=== PATIENT | female | born 1975 | race Caucasian/White ===

== ENCOUNTER 2023-02-27 13:17 | Outpatient (OUT) | payer MEDICARE, SELFPAY ==
[2023-02-27 13:50] LABS: Basophils Absolute Auto 0.1 10^3/uL (0.0-0.1); Basophils Percent Auto 0.8 % (0.2-2.0); Eosinophils Absolute Auto 0.3 10^3/uL (0.0-0.7); Eosinophils Percent Auto 2.4 % (0.9-7.0); Hematocrit 39.3 % (36.0-48.0); Hemoglobin 13.5 g/dL (12.0-16.0); Immature Granulocytes Abs Auto 0.12 10^3/uL (0.00-0.03); Lymphocytes Percent Auto 24.8 % (20.5-60.0); Mean Corpuscular HGB Conc 34.4 g/dL (29.9-35.2); Mean Corpuscular Hemoglobin 29.3 pg (26.7-34.0); Mean Corpuscular Volume 85.4 fL (81.0-99.0); Mean Platelet Volume 9.7 fL (9.5-13.5); Monocytes Absolute Auto 0.9 10^3/uL (0.3-0.8); Monocytes Percent Auto 7.5 % (1.7-12.0); Neutrophils Absolute Auto 7.5 10^3/uL (1.4-6.5); Neutrophils Percent Auto 63.5 % (43.0-75.0); Platelet Count 303 10^3/uL (150-450); Red Cell Distribution Width 12.8 % (11.0-15.0); White Blood Count 11.9 10^3/uL (4.0-11.0)
[2023-02-27 13:51] LABS: Bilirubin Urine NEGATIVE (NEGATIVE); Blood Urine TRACE-I (NEGATIVE); Clarity Urine CLEAR (CLEAR); Color Urine YELLOW (YELLOW); Glucose Urine UA NEGATIVE (NEGATIVE); Ketones Urine NEGATIVE (NEGATIVE); Leukocyte Esterase Urine NEGATIVE (NEGATIVE); Nitrite Urine POSITIVE (NEGATIVE); Protein Urine NEGATIVE (NEG/TRACE); Specific Gravity Urine >=1.030 (1.005-1.025); Urobilinogen Urine 0.2 EU/dL (0.2-1.0); pH Urine 5.5 (5.0-9.0)
[2023-02-27 14:35] LABS: Bacteria Urine SMALL #/HPF (NONE SEEN); Cast Seen? NONE SEEN #/LPF (NONE SEEN); Crystals Seen? None Seen #/HPF (None Seen); Mucus Urine NONE SEEN (NONE SEEN); Squamous Epithelial Cell Urine FEW #/LPF (NONE/RARE); WBC Urine NONE SEEN #/HPF (NONE SEEN)
[2023-02-27 14:42] LABS: Microalbumin Urine Random <1.3 mg/dL (<=30.0)
[2023-02-27 14:46] LABS: Alanine Aminotransferase 28 U/L (14-59); Albumin Globulin Ratio 0.8; Albumin Level 3.4 g/dL (3.4-5.0); Alkaline Phosphatase 92 U/L (46-116); Anion Gap 11.8; Aspartate Amino Transferase 21 U/L (15-37); BUN Creatinine Ratio 30.6; Bilirubin Total 0.4 mg/dL (0.2-1.0); Calcium 9.1 mg/dL (8.5-10.1); Carbon Dioxide 26.3 mmol/L (21.0-32.0); Chloride 102 mmol/L (98-107); Chol HDL Ratio 3.5; Cholesterol 201 mg/dL (<=200); Estimated GFR (African America >60 (>=60); Estimated GFR (Non-African Ame >60 (>=60); Globulin 4.4 g/dL; Glucose 121 mg/dL (74-106); HDL Cholesterol 57 mg/dL (40-60); Potassium 4.1 mmol/L (3.5-5.1); Sodium 136 mmol/L (136-145); Total Protein 7.8 g/dL (6.4-8.2); Triglycerides 139 mg/dL (<=150); VLDL CHOLESTEROL 27.8 mg/dL
== END 2023-02-27 13:18 | disposition home or self-care (01) ==
LOC: LAB 13:21
PROVIDERS: PCP Nurse Practitioner; Visit Provider Nurse Practitioner
DX: E78.5 Hyperlipidemia, unspecified (principal); E11.9 Type 2 diabetes mellitus without complications; Z79.4 Long term (current) use of insulin; R82.90 Unspecified abnormal findings in urine
CPT/HCPCS: 36415; 80053; 80061; 81001; 82043; 85025; 87086; 87150; 87186

== ENCOUNTER 2023-08-06 12:49 | Outpatient (OUT) | payer MEDICARE, SELFPAY ==
--- NOTE | 2023-08-06 12:54 | MM_ITS ---
Patient Name: HE REVELES MR#: [id number] : 1975 Exam Date: 08/06/2023 Ordering Doctor: DENISE Mejia CNP RADIOLOGY REPORT PROCEDURE: MM TOMOSYNTHESIS SCREENING BI COMPARISON: MG MAMM SCREEN 3D CORNEL CAD, 08/04/2022. MG MAMM SCREEN CORNEL W CAD, 12/25/2017. INDICATIONS: Screening Calculator Name NCI Breast Cancer Risk Assessment Tool 5 Year Breast Cancer Risk 1.40% Lifetime Breast Cancer Risk 12.50% Personal Breast Cancer No Personal Ovarian Cancer No Treatments hysterectomy, cornel oopherectomy Family Cancers Mother with ovarian cancer at age 40; Aunt-maternal with ovarian cancer at age 35; Aunt-maternal with ovarian cancer at age 40. LOCATION: [facility] BREAST COMPOSITION: Scattered areas fibroglandular density. FINDINGS: DIAGNOSTIC CATEGORY 1--NEGATIVE. NO CHANGE FROM COMPARISON ASSESSMENT. RIGHT BREAST: No significant suspicious finding. LEFT BREAST: No significant suspicious finding. RECOMMENDATIONS: ROUTINE MAMMOGRAM AND CLINICAL EVALUATION IN 12 MONTHS. PLEASE NOTE: A NORMAL MAMMOGRAM DOES NOT EXCLUDE THE POSSIBILITY OF BREAST CANCER. A CLINICALLY SUSPICIOUS PALPABLE LUMP SHOULD BE BIOPSIED. Dictated by: Christopher Vega MD on 08/06/2023 at 14:24 Approved by: Christopher Vega MD on 08/06/2023 at 14:25
== END 2023-08-06 12:50 | disposition home or self-care (01) ==
LOC: MAMMO 12:49
PROVIDERS: PCP Nurse Practitioner; Visit Provider Nurse Practitioner
DX: Z12.31 Encounter for screening mammogram for malignant neoplasm of breast (principal); Z80.41 Family history of malignant neoplasm of ovary
CPT/HCPCS: 77063; 77067

== ENCOUNTER 2024-01-22 12:11 | Outpatient (OUT) | payer MEDICARE, SELFPAY ==
--- OUTSIDE RECORDS SUMMARY | 2024-01-22 12:21 | XMS_ITS | CCD ---
Author Organization [facility] Care Team Providers Care Precipitator Operator Name Role Phone [facility] Primary Care Provider Mariam Beyer Attending Provider [phone] Abner Cartwright Attending Provider Glenna uQinones Unavailable Jessica Owens MD Primary Care Provider [phone] Sonya Mejia Primary Care Provider HARI Quinones Attending Provider [facility] Primary Care Provider HARI Beyer Attending Provider AICHHOLZ, FINANCIAL SALES ASSISTANT SONYA Attending Unavailable AICHHOLZ, FINANCIAL SALES ASSISTANT SONYA Admitting Unavailable AICHHOLZ, FINANCIAL SALES ASSISTANT SONYA Primary Care Unavailable AICHHOLZ, FINANCIAL SALES ASSISTANT SONYA Attending Unavailable AICHHOLZ, FINANCIAL SALES ASSISTANT SONYA Admitting Unavailable DR MATT CABRERA Primary Care Unavailable AICHHOLZ, FINANCIAL SALES ASSISTANT SONYA Consulting Unavailable AICHHOLZ, FINANCIAL SALES ASSISTANT SONYA Attending Unavailable AICHHOLZ, FINANCIAL SALES ASSISTANT SONYA Admitting Unavailable AICHHOLZ, FINANCIAL SALES ASSISTANT SONYA Primary Care Unavailable AICHHOLZ, FINANCIAL SALES ASSISTANT SONYA Consulting Unavailable DR VALERIANO SINCLAIR Consulting Unavailable KAYA PATEL Consulting Unavailable JOSÉ ., ADAM Admitting Unavailable ADAM DUMONT Attending Unavailable AICHHOLZ, FINANCIAL SALES ASSISTANT SONYA Primary Care Unavailable MYRTLE DUMONTID Consulting Unavailable Mark Gramajo Unavailable [facility] Primary Care Provider HARI Beyer Attending Provider Sonya Mejia Primary Care Provider HARI Gramajo Attending Provider Jose APODACA, Abad Primary Care Provider Jackie REMEDIAL PROJECT MANAGER, Sonya Unavailable [facility] Primary Care Provider [phone] HARI Beyer Attending Provider [phone] Jose APODACA, Abad Primary Care Provider Jackie REMEDIAL PROJECT MANAGER, Sonya Unavailable Bob APODACA, Jessica Primary Care Provider [phone] JESSICA OWENS Primary Care Unavailable JASON CH Referring Unavailable JASON CH Attending Unavailable GLENDY PÉREZ Attending Unavailable JESSICA OWENS Primary Care Unavailable [facility] Primary Care Provider HARI Beyer Attending Provider Jackie Sonya J Primary Care Provider [phone] HARI Quinones Attending Provider Mark Gramajo Attending Unavailable Mark Gramajo Admitting Unavailable Aichholz, Sonya J Primary Care Unavailable [facility] Primary Care Unavaila ble Mariam Beyer K Attending Unavailable Pepito Tondra K Admitting Unavailable Glenna Quinones Attending Unavailable Glenna Quinones Admitting Unavailable Aichholz, Sonya J Primary Care Unavailable Mark Gramajo Attending Unavailable Mark Gramajo Admitting Unavailable Aichholz, Sonya J Primary Care Unavailable AICHHOLZ, SONYA Attending Unavailable AICHHOLZ, SONYA Attending Unavailable AICHHOLZ, SONYA Attending Unavailable Allergies Allergy Classification Reported Allergen(s) Allergy Type Date of Onset Reaction(s) Facility (20 sources) SGLT2s Propensity to adverse reactions DKA x2 Infinite Z Other (3 sources) Seasonal allergy; Translations: [SEASONAL ALLERGIES] Allergy to substance 2 Other: See Comments [facility] (4 sources) dulaglutide Drug Allergy 2 [facility] Healthcare Medications Current Medications Medication Drug Class(es) Dates Sig (Normalized) Sig (Original) 3 ML semaglutide 1.34 MG/ML Pen Injector [Ozempic] (7 sources) Start: 02-19-2023 inject 1 mg by subcutaneous injection every week Ozempic (1 MG/DOSE) 4 MG/3ML 1mg SQ once weekly for 30 days return to 2 mg when available Jan, Active Start: 01-04-2022 inject 1 mg by subcu taneous injection every week Ozempic (1 MG/DOSE) 4 MG/3ML 1mg SQ once weekly for 90 day(s) Dec, Active inject 1 mg by subcu taneous injection every week Ozempic (1 MG/DOSE) 4 MG/3ML 1mg SQ once weekly for 90 day(s) Active 3 ML semaglutide 2.68 MG/ML Pen Injector [Ozempic] (16 sources) Start: 06-07-2022 inject 2 mg by subcutaneous injection every week Ozempic (2 MG/DOSE) 8 MG/3ML 2 mg Subcutaneous weekly for 90 days May, Active inject 2 mg by subcu taneous injection every week Ozempic (2 MG/DOSE) 8 MG/3ML 2 mg Subcutaneous weekly for 90 days ok to dispense 1mg weekly if 2 mg unavailable Active inject 2 mg by subcu taneous injection every week Ozempic (2 MG/DOSE) 8 MG/3ML 2 mg Subcutaneous weekly for 90 days Active atorvastatin 80 mg oral tablet (20 sources) HMG-CoA Reductase Inhibitor Start: 05-24-2023 End: 08-22-2023 take 80 mg by mouth once daily Atorvastatin Active 80 MG PO Daily August 21, 2023 12:00am Start: 01-31-2018 End: 06-30-2019 take 10 mg by mouth once daily Atorvastatin Discontinu ed 10 MG PO Daily January 31, 2018 12:00am June 30, 2019 2:22pm End: 05-24-2023 take 1 tablet by mouth in the morning atorvastatin (Lipitor) 40 MG tablet Take 1 tablet by mouth in the morning. 0 05/24/2023 Discontinued (Ineffective) take 1 tablet by jen th every twenty-four hours Atorvastatin Calcium 20 MG 1 tablet Orally Once a day for 90 days Active Comment on above: Take 10 mg by mouth once daily. Centrum Adults - (20 sources) take 1 tablet by mouth once daily Centrum Adults - 1 tablet Orally daily Active Cholecalciferol (5 sources) Vitamin D Start: 08-21-19 24 take 1 capsule by mouth once daily cholecalciferol (vitamin D3) Active 1 CAP PO Daily August 21, 2023 12:00am Fish Oils (20 sources) Fish Oil Active Flash Glucose Scanning [place] (Freestyle Neris 2 [place]) misc (5 sources) Start: 08-21-19 24 Flash Glucose Scanning [place] (Freestyle Neris 2 [place]) misc Active 0 .ROUTE August 21, 2023 12:00am As directed Flash Glucose Sensor (Freestyle Neris 2 Sensor) kit (5 sources) Start: 08-21-19 24 Flash Glucose Sensor (Freestyle Neris 2 Sensor) kit Active 0 .ROUTE August 21, 2023 12:00am As directed FreeStyle Neris 2 Sensor - (20 sources) Start: 02-17-20 FreeStyle Neris 2 Sensor - as directed in vitro q 14 days for 84 days Jan, Active FreeStyle Nreis 2 Sensor - as directed in vitro q 14 days for 84 days Active FreeStyle Neris [place] - (20 sources) Start: 01-21-2020 FreeStyle Libr e [place] - as directed use with 14 days sensor check glucose with reader ac, hs, prn Dec, Active FreeStyle Neris [place] - as directed use with 14 days sensor check glucose with reader ac, hs, prn Active FreeStyle Neris Sensor (20 sources) FreeStyle Neris Sensor use with neris reader SQ change q 14 days, check glucose ac, hs and prn for 28 days DX E11.65 Neris 14 day Sensors Active FreeStyle Neris Sensor use with neris reader SQ change q 14 days, check glucose ac, hs and prn for 28 days Active Insulin Disposable Pump (V-Go 40) 40 UNIT/24HR kit (4 sources) Start: 01-08-2023 Insulin Dispos able Pump (V-Go 40) 40 UNIT/24HR kit Inject 1 Pump as directed in the morning. 0 01/08/2023 Active 3 ml insulin glargine 100 unt/ml pen injector (20 sources) Insulin Analog Start: 01-10-2023 Basaglar KwikP en 100 UNIT/ML pen inject 40 units subcutaneously once daily 0 01/10/2023 Active Start: 11-04-2019 End: 11-26-2023 inject 30 [IU] by subcutaneous injection once daily Insulin Glargine Discontinued 30 UNIT SUBCUT Daily 0 November 04, 2019 1:14pm November 26, 2023 2:10pm Start: 06-30-2019 End: 11-04-2019 inject 25 [IU] by subcutaneous injection once daily Insulin Glargine Discontinued 25 UNITS SUBCUT Daily June 30, 2019 12:00am November 04, 2019 1:14pm Start: 01-06-2019 BASAGLAR KWIKP EN U-100 INSULIN 100 unit/mL (3 mL) inpn INJECT 40 UNITS SUBCUTANEOUSLY EVERY BEDTIME 0 01/06/2019 Active inject 25 [IU] by goodson bcutaneous injection once daily, then inject 30 [IU] by subcutaneous injection once daily in the morning Basaglar KwikPen 100 UNIT/ML 25 units (may titrate up to 30 units per day) Subcutaneous am for 30 days for VGO FAILRE- expect up to 30 u daily. Should use if removes VGO and is unable to replace d/t VGO supply or insulin shortage. PATIENT SHOULD NOTIFY OFFICE ANDREA OF SUPPLY ISSUE Active Comment on above: INJECT 40 UNITS SUBC UTANEOUSLY EVERY BEDTIME ammonium lactate 120 mg/ml topical lotion (3 sources) ammonium lactate (Lac-Hydrin) 12 % lotion 1 application every 12 (twelve) hours 0 Active lisinopril 40 mg oral tablet (20 sources) Angiotensin Converting Enzyme Inhibitor Start: take 40 mg by mouth once daily Lisinopril Active 40 MG PO Daily August 21, 2023 12:00am Start: 11-02-2022 take 2 tablets by mo uth once daily in the morning lisinopril 20 MG tablet Take 40 mg by mouth in the morning. Total is 40mg, so 2 pills daily. 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 0 01/24/2021 Active Start: 11-04-2019 End: 08-21-2023 take 20 mg by mouth once daily Lisinopril Discontinued 20 MG PO Daily November 04, 2019 12:00am August 21, 2023 1:11pm Start: 01-31-2018 End: 06-30-2019 take 40 mg by mouth once daily Lisinopril Discontinued 40 MG PO Daily January 31, 2018 12:00am June 30, 2019 1:41pm Comment on above: Take 40 mg by mouth every morning. loratadine 10 mg oral tablet (4 sources) take 1 tablet by mouth once daily loratadine (Claritin) 10 MG tablet Take 10 mg by mouth 1 (one) time each day at the same time. 0 Active metFORMIN hydrochloride 1000 mg oral tablet (20 sources) Biguanide Start: take 1000 mg by mouth twice daily at mealtime Metformin Active 1000 MG PO Twice daily with meals January 31, 2018 12:00am take 1 tablet by jen th every twelve hours metFORMIN (Glucophage) 1000 MG tablet Ta ke 1,000 mg by mouth every 12 (twelve) hours. 0 Active Comment on above: TAKE ONE 1 TABLET BY MOUTH TWICE DAILY Multiple Vitamins-Minerals (ONE-A-DAY WOMENS PO) (4 sources) take 1 tablet by mouth once daily in the morning Multiple Vitamins-Minerals (ONE-A-DAY WOMENS PO) Take 1 tablet by mouth in the morning. 0 Active [id number] carb-vit K (Women's Multivitamin) (5 sources) Start: 08-21-2023 take 1 tablet by mouth once daily [id number] carb-vit K (Women's Multivitamin) Active 1 TAB PO Daily August 21, 2023 12:00am omega-3 fatty acids (Fish Oil) (5 sources) Start: 08-21-2023 take 1 capsule by mouth once daily omega-3 fatty acids (Fish Oil) Active 1 CAP PO Daily August 21, 2023 12:00am omeprazole 40 mg delayed release oral capsule (20 sources) Proton Pump Inhibitor Start: 11-02-2019 End: 08-21-2023 take 40 mg by mouth once daily Omeprazole Active 40 MG PO Daily August 21, 2023 1:03pm Start: 11-02-2019 Omeprazole Act bart November 01, 2019 11:00pm Start: 01-31-2018 End: 06-30-2019 take 40 mg by mouth once daily Omeprazole Discontinued 40 MG PO Daily January 31, 2018 12:00am June 30, 2019 2:22pm Comment on above: Take 40 mg by mouth once daily. 0.25 mg, 0.5 mg dose 1.5 ml semaglutide 1.34 mg/ml pen injector (15 sources) Start: 12-19-2021 inject 0.25 mg by subcutaneous injection every week Ozempic, 0.25 or 0.5 MG/DOSE, 2 MG/1.5ML solution pen-injector Inject 0.25 mg under the skin 1 (one) time per week. 0 12/19/2021 Active Start: 07-05-2021 Ozempic (0.25 or 0.5 MG/DOSE) 2 MG/1.5ML as directed Subcutaneous Jun, Active sertraline 50 mg oral tablet (20 sources) Serotonin Reuptake Inhibitor Start: 08-21-2023 take 50 mg by mouth once daily Sertraline Active 50 MG PO Daily August 21, 2023 12:00am Start: 04-25-2023 End: 07-24-2023 take 1 tablet by mouth in the morning sertraline (Zoloft) 50 MG tablet Indications: Anxiety , Major depressive disorder with single episode, remission status unspecified (CMS/HCC) Take 1 tablet (50 mg) by mouth in the morning. 90 tablet 0 04/25/2023 07/24/2023 Active Start: 05-27-2018 End: 08-21-2023 take 25 mg by mouth once daily Sertraline Discontinued 25 MG PO Daily June 30, 2019 12:00am August 21, 2023 1:04pm Start: 05-27-2018 take 2 tablets by mo [facility] once daily sertraline (ZOLOFT) 25 mg tablet Take 50 mg by mouth once daily. 0 05/27/2018 Active take 1 tablet by jen every twenty-four hours Sertraline HCl 50 MG 1 tablet Orally Once a day Active Comment on above: Take 25 mg by mouth once daily. Take 50 mg by mouth once daily. Sub-Q Insulin Device, 40 Unit (V-Go 40) device (9 sources) Start: 08-21-2023 Sub-Q Insulin Device, 40 Unit (V-Go 40) device Active 0 .Route 90 August 21, 2023 2:18pm As directed Start: 08-21-2023 End: 08-21-2023 Sub-Q Insulin Device, 40 Uni t (V-Go 40) device Discontinued 0 .Route August 21, 2023 12:00am August 21, 2023 2:20pm As directed Start: 08-21-2023 Sub-Q Insulin Device, 40 Unit (V-Go 40) device Active 0 .ROUTE August 21, 2023 12:00am As directed Tirzepatide (6 sources) Start: 10-11-2023 Tirzepatide (M ounjaro) 7.5 mg/0.5 mL pen injector Active 7.5 MG SUBCUT every week 2 October 11, 2023 1:52pm Start: 10-11-2023 End: 10-11-2023 Tirzepatide (Mounjaro) 7.5 m g/0.5 mL pen injector Discontinued 7.5 MG SUBCUT every week October 11, 2023 12:00am October 11, 2023 1:53pm True Metrix Blood Glucose Te st - (20 sources) Start: 10-20-2019 Start: 10-20-2019 True Metrix Bl ood Glucose Test - as directed In Vitro 4 times a day for 90 days Sep, Active True Metrix Meter w/Device (20 sources) True Metrix Mete r w/Device as directed Active V-Go 40 - (20 sources) V-Go 40 - USE DIRECTED DAILY for 30 Not-Taking V-Go 40 - USE DIRECTED DAILY for 30 Active V-Go 40 - as dir ected sq daily for 30 Active V-Go 40 - as dir ected sq daily for 90 days Active Vitamin B Complex (20 sources) take 1 tablet by mouth once daily Vitamin B Complex - 1 tablet Orally daily Active vitamin B12 (5 sources) Vitamin B12 Start: 08-21-2023 take 1 tablet by mouth once daily cyanocobalamin (vitamin B-12) Active 1 TAB PO Daily August 21, 2023 12:00am Vitamin D 25 MCG (1000 UT) (20 sources) take 1 tablet by mouth once daily Vitamin D 25 MCG (1000 UT) 1 tablet Orally Once a day Active Completed/Discontinued Medications Medication Drug Class(es) Dates Sig (Normalized) Sig (Original) benoxinate hydrochloride 4 mg/ml / fluorescein sodium 2.5 mg/ml ophthalmic solution (2 sources) Diagnostic Dye Start: 08-07-2023 End: 08-08-2023 fluorescein-benoxi jason 0.25-0.4 % 1 Drop (FLURESS) Start: 01-31-2022 End: 02-01-2022 fluorescein-benoxinate 0.25- 0.4 % 1 Drop (FLURESS) cephalexin 500 mg oral capsule (2 sources) Cephalosporin Antibacterial Start: 03-18-2018 cephALEXin (KEFLEX) 500 mg capsule dicyclomine hydrochloride 20 mg oral tablet (11 sources) Anticholinergic Start: 02-18-2018 dicyclomine (BENTYL) 20 mg tablet TAKE ONE 1 TABLET BY MOUTH EVERY 8 HOURS NEEDED FOR PAIN 6 02/18/2018 Active Start: 01-31-2018 End: 06-30-2019 take 20 mg by mouth once daily Dicyclomine Discontinue d 20 MG PO Daily January 31, 2018 12:00am June 30, 2019 2:14pm Comment on above: TAKE ONE 1 TABLET BY MOUTH EVERY 8 HOURS NEEDED FOR PAIN 0.5 ml dulaglutide 1.5 mg/ml auto-injector (9 sources) GLP-1 Receptor Agonist Start : 11-01 End: 08-20 inject 1 mg by subcutaneous injection every week Dulaglutide (Trulicity) 0.75 mg/0.5 mL Pen Injector Discontinued MG SUBCUT every week November 02, 2019 12:00am August 21, 2023 1:02pm empagliflozin 25 mg oral tablet (2 sources) Sodium-Glucose Cotransporter 2 Inhibitor Start : 10-20 take 1 tablet by mouth once daily JARDIANCE 25 mg tablet Take 25 mg by mouth once daily. 0 10/21/2019 Active Comment on above: Take 25 mg by mouth once daily. 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 0 Active Comment on above: Take by mouth one ti me a week. ertugliflozin 15 mg oral tablet (11 sources) Start : 02-27 End: 11-03 take 15 mg by mouth once daily Ertugliflozin Discontinued 15 MG PO Daily June 30, 2019 12:00am November 04, 2019 1:14pm Flash Glucose Scanning [place] (Freestyle Neris 14 Day [place]) misc (5 sources) Start : 08-20 End: 08-20 Flash Glucose Scanning [place] (Freestyle Neris 14 Day [place]) misc Discontinued 0 .Route August 21, 2023 12:00am August 21, 2023 1:09pm As directed Flash Glucose Sensor (Freestyle Neris 14 Day Sensor) kit (5 sources) Start : 08-20 End: 08-20 Flash Glucose Sensor (Freestyle Neirs 14 Day Sensor) kit Discontinued 0 .Route August 21, 2023 12:00am August 21, 2023 1:09pm As directed hydroCHLOROthiazide 12.5 mg / lisinopril 20 mg oral tablet (11 sources) Thiazide Diuretic, Angiotensin Converting Enzyme Inhibitor Start : 06-29 End: 11-03 take 1 tablet by mouth once daily Lisinopril-Hydrochl orothiazide Discontinued 1 TAB PO Daily June 30, 2019 12:00am November 04, 2019 1:14pm Start: 05-27-2018 take 1 tablet by jen th twice daily lisinopril-hydrochlorothiazide (PRINZIDE,ZESTORETIC) 20-12.5 mg per tablet Take 1 tablet by mouth twice daily. 0 05/27/2018 Active Comment on above: Take 1 tablet by jen th twice daily. insulin aspart, human (20 sources) Insulin Analog Start: 08-21-2023 End: 08-21-2023 Insulin Aspart U-100 Discontinued 0 UNITS SUBCUT 3x/Day before meals August 21, 2023 1:02pm August 21, 2023 1:12pm 8, 12, or 15 units based on pt's blood glucose Start: 08-21-2023 inject 100 [IU] by s ubcutaneous injection once daily Insulin Aspart (Niacinamide) (Fiasp U-100 Insulin) 100 unit/mL solution Active SUBCUT Daily August 21, 2023 12:00am Start: 05-29-2023 Fiasp 100 UNIT /ML solution inject as directed four times a day (EXPECT 100 UNITS PER DAY) 0 05/29/2023 Active Start: 10-05-2022 NovoLOG 100 UN IT/ML solution Inject 100 mL under the skin. 0 10/05/2022 Active Start: 03-06-2018 inject 10 [IU] by goodson bcutaneous injection three times daily NOVOLOG FLEXPEN U-100 INSULIN 100 unit/mL inpn INJECT 10 UNITS SUBCUTANEOUSLY THREE TIMES A DAY 4 03/06/2018 Active Start: 01-31-2018 Insulin Aspart U-100 Active 0 UNITS SUBCUT 3x/Day before meals January 31, 2018 4:14pm 8, 12, or 15 units based on pt's blood glucose Start: 01-31-2018 End: 08-21-2023 Insulin Aspart U-100 Discont inued 0 UNITS SUBCUT 3x/Day before meals January 31, 2018 12:00am August 21, 2023 1:09pm 8, 12, or 15 units based on pt's blood glucose Start: 01-31-2018 Insulin Aspart U-100 Active 0 UNITS SUBCUT 3x/Day before meals January 30, 2018 11:00pm 8, 12, or 15 units based on pt's blood glucose Start: 01-31-2018 Insulin Aspart U-100 Active 0 UNITS SUBCUT 3x/Day before meals January 31, 2018 12:00am 8, 12, or 15 units based on pt's blood glucose inject 2 [IU] by sub cutaneous injection once daily at mealtime NovoLOG 100 UNIT/ML as directed Subcutaneous in vgo (up to 90 units/day) for 90 days for use in VGO40, ok to use aspart as substitution. changed to 1:25 mg Correction (2 u/click); ICR 2,4,5 clicks /sml meals. Active Comment on above: INJECT 10 UNITS SUBC UTANEOUSLY THREE TIMES A DAY Insulin Glargine 100 UNIT/ML (5 sources) Start: 12-11-2022 Insulin Glargine 100 UNIT/ML 40 u Subcutaneous daily for 30 days for VGO failure. DO NOT DISPENSE GREATER THAN 30 days at a time Nov, Not-Taking Start: 12-11-2022 Insulin Glargi ne 100 UNIT/ML 40 u Subcutaneous daily for 30 days for VGO failure. DO NOT DISPENSE GREATER THAN 30 days at a time Nov, Active naltrexone 380 mg injection (11 sources) Opioid Antagonist Start: 05-21-2018 End: 11-02-2019 Naltrexone Microspheres Discontinued 380 MG IM Q28D June 30, 2019 12:00am November 02, 2019 10:59am phenylephrine hydrochloride 25 mg/ml ophthalmic solution (2 sources) alpha-1 Adrenergic Agonist Start: 08-07-2023 End: 08-08-2023 PHENYLephrine 2.5 % 1 Drop (AK-DILATE, JESU-SYNEPHRINE) Start: 01-31-2022 End: 02-01-2022 PHENYLephrine 2.5 % 1 Drop ( AK-DILATE, JESU-SYNEPHRINE) potassium chloride 10 meq extended release oral tablet (6 sources) Start: 03-08-2018 take 1 tablet by mouth three times daily potassium chloride (K-TAB) 10 mEq tablet Take 10 mEq by mouth three times daily. 0 03/08/2018 Active take 1 capsule by mo ut in the morning, then take 1 capsule by mouth in the evening, then take 1 capsule by mouth at bedtime potassium chloride ER (Micro-K) 10 MEQ E R capsule Take 1 capsule by mouth in the morning and 1 capsule in the evening and 1 capsule before bedtime. Do not crush or chew. . 0 Active Comment on above: Take 10 mEq by mouth three times daily. proparacaine hydrochloride 5 mg/ml ophthalmic solution (2 sources) Local Anesthetic Start: 08-07-2023 End: 08-08-2023 proparacaine 0.5 % 1 Drop (ALCAINE) Start: 01-31-2022 End: 02-01-2022 proparacaine 0.5 % 1 Drop (A LCAINE) Semaglutide (Ozempic) 2 mg/dose (8 mg/3 mL) pen injector (5 sources) Start: 08-21-2023 End: 11-26-2023 inject 2 mg by subcutaneous injection every week Semaglutide (Ozempic) 2 mg/dose (8 mg/3 mL) pen injector Discontinued 2 MG SUBCUT every week August 21, 2023 12:00am November 26, 2023 2:11pm Start: 08-21-2023 inject 2 mg by subcu taneous injection every week Semaglutide (Ozempic) 2 mg/dose (8 mg/3 mL) pen injector Active 2 MG SUBCUT every week August 21, 2023 12:00am Tirzepatide (4 sources) Start: 08-21-2023 End: 10-11-2023 Tirzepatide (Mounjaro) 2.5 m g/0.5 mL pen injector Discontinued 2.5 MG SUBCUT every week 2.5 August 21, 2023 12:00am October 11, 2023 1:52pm Start: 08-21-2023 Tirzepatide (M ounjaro) 2.5 mg/0.5 mL pen injector Active 2.5 MG SUBCUT every week 2.5 August 21, 2023 12:00am Tirzepatide (4 sources) Start: 08-21-2023 End: 10-11-2023 inject 2.5 mg by subcutaneous injection every week Tirzepatide (Mounjaro) 5 mg/0.5 mL pen injector Discontinued 5 MG SUBCUT every week 2.5 August 21, 2023 12:00am October 11, 2023 1:51pm to start after 4 weeks 2.5 mg weekly if tolerated Start: 08-21-2023 inject 2.5 mg by sub cutaneous injection every week Tirzepatide (Mounjaro) 5 mg/0.5 mL pen injector Active 5 MG SUBCUT every week 2.5 August 21, 2023 12:00am to start after 4 weeks 2.5 mg weekly if tolerated tropicamide 10 mg/ml ophthalmic solution (2 sources) Anticholinergic Start: 08-07-2023 End: 08-08-2023 tropicamide 1 % 1 Drop (MYDRIACYL) Start: 01-31-2022 End: 02-01-2022 tropicamide 1 % 1 Drop (MYDR IACYL) V-GO 40 fer (2 sources) Start: 04-25-2021 V-GO 40 fer I ndications: 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 USE DIRECTED. 0 04/25/2021 Active Comment on above: once daily. USE D IRECTED. Problems Active Problems Problem Classification Problem Date Documented Da te Episodic/Chronic Administrative/social admission (9 sources) Dietary counseling and surveillance Onset: 1 Resolved: 2 Episodic Anxiety disorders (6 sources) Anxiety; Translations: [Anxiety disorder, unspecified] Onset: 3 04-02-2023 Chronic Attention-deficit, conduct, and disruptive behavior disorders (20 sources) Attention deficit hyperactivity disorder; Translations: [Attention-deficit hyperactivity disorder, unspecified type] 08-21-2023 Chronic Attention-deficit, conduct, and disruptive behavior disorders (13 sources) Attention-deficit hyperactivity disorder, unspecified type; Translations: [Attention deficit disorder with hyperactivity] Onset: 1 Resolved: 2 Chronic Blindness and vision defects (3 sources) Blindness AND/OR vision impairment level; Translations: [Unspecified visual loss] Onset: 4 06-07-2023 Chronic Cancer of uterus (3 sources) Adenocarcinoma of endometrium; Translations: [Malignant neoplasm of endometrium] Onset: 8 06-07-2023 Chronic Cardiac dysrhythmias (9 sources) Tachycardia; Translations: [Tachycardia, unspecified] 06-27-2019 Episodic Cataract (17 sources) Nuclear sclerotic cataract; Translations: [Age-related nuclear cataract, bilateral] Onset: 8 Chronic Developmental disorders (3 sources) Developmental academic disorder; Translations: [Developmental disorder of scholastic skills, unspecified] Onset: 4 06-07-2023 Chronic Diabetes mellitus with complications (20 sources) Diabetic ketoacidosis; Translations: [Type 2 diabetes mellitus with ketoacidosis without coma] Onset: 7 Resolved: 2 Chronic Diabetes mellitus without complication (20 sources) Diabetes mellitus without complication; Translations: [Type 2 diabetes mellitus without complications] Onset: 3 04-02-2023 Chronic Diseases of white blood cells (9 sources) Leukocytosis; Translations: [Elevated white blood cell count, unspecified] 06-27-2019 Chronic Disorders of lipid metabolism (20 sources) Hyperlipidemia; Translations: [Hyperlipidemia, unspecified] Onset: 1 Resolved: 2 Chronic Disorders usually diagnosed in infancy, childhood, or adolescence (20 sources) Autism spectrum disorder; Translations: [Autistic disorder] Onset: 1 Resolved: 2 Chronic Diverticulosis and diverticulitis (7 sources) Diverticular disease; Translations: [Diverticulosis of intestine, part unspecified, without perforation or abscess without bleeding] Onset: 3 04-02-2023 Chronic Esophageal disorders (20 sources) Gastroesophageal reflux disease; Translations: [Gastro-esophageal reflux disease without esophagitis] Onset: 3 08-02-2016 Chronic Esophageal disorders (1 source) Esophageal disorders; Translations: [Gastro-esophageal reflux disease without esophagitis] Onset: 3 Essential hypertension (20 sources) Hypertensive disorder; Translations: [Essential (primary) hypertension] Onset: 1 Resolved: 2 Chronic Fluid and electrolyte disorders (18 sources) Ketoacidosis; Translations: [Acidosis] 11-02-2019 Episodic Genitourinary symptoms and ill-defined conditions (4 sources) Abnormal urinalysis; Translations: [Unspecified abnormal findings in urine] Onset: 3 04-02-2023 Episodic Miscellaneous mental health disorders (17 sources) Eating disorder; Translations: [Eating disorder, unspecified] Chronic Mood disorders (20 sources) Depressive disorder; Translations: [Major depressive disorder, single episode, unspecified] Onset: 1 Resolved: 2 Chronic Nausea and vomiting (20 sources) Nausea and vomiting; Translations: [Nausea with vomiting, unspecified] Onset: 1 Resolved: 2 Episodic Nutritional deficiencies (20 sources) Vitamin D deficiency; Translations: [Vitamin D deficiency, unspecified] Onset: 1 Resolved: 2 Chronic Nutritional deficiencies (9 sources) Deficiency of other specified B group vitamins Onset: 1 Resolved: 2 Episodic Other aftercare (20 sources) Long-term current use of insulin; Translations: [longterm (current) use of insulin] 06-07-2023 Episodic Other aftercare (9 sources) Encounter for therapeutic drug level monitoring Onset: 1 Resolved: 2 Episodic Other aftercare (14 sources) longterm (current) use of insulin; Translations: [Long-term (current) use of insulin] Onset: 1 Resolved: 2 Episodic Other aftercare (1 source) Other half-way (current) drug therapy; Translations: [[employer] SUPERVISOR CURRENT DRUG THERAPY] Onset: 3 Episodic Other aftercare (1 source) longterm (current) use of oral hypoglycemic drugs; Translations: [RESIDENTIAL USE ORAL HYPOGLYCEMIC DX] Onset: 3 Episodic Other eye disorders (2 sources) Vitreomacular adhesion of bilateral eyes; 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, bilateral] Onset: 8 10-11-2017 Chronic Other gastrointestinal disorders (7 sources) Constipation; Translations: [Constipation, unspecified] Episodic Other liver diseases (8 sources) Steatosis of liver; Translations: [Fatty (change of) liver, not elsewhere classified] Onset: 3 04-02-2023 Chronic Other liver diseases (4 sources) Fatty (change of) liver, not elsewhere classified; Translations: [Other chronic nonalcoholic liver disease] 08-21-2023 Chronic Other nutritional; endocrine; and metabolic disorders (20 sources) Obesity; Translations: [Obesity, unspecified] 06-30-2019 Chronic Other nutritional; endocrine; and metabolic disorders (20 sources) Obese class II; Translations: [Body mass index (BMI) 35.0-35.9, adult] Chronic Other nutritional; endocrine; and metabolic disorders (20 sources) Body mass index 40+ - severely obese; Translations: [Body mass index (BMI) 40.0-44.9, adult] 08-21-2023 Chronic Other nutritional; endocrine; and metabolic disorders (14 sources) Body mass index (BMI) 40.0-44.9, adult; Translations: [Body Mass Index 40.0-44.9, adult] Onset: 1 Resolved: 2 Chronic Other nutritional; endocrine; and metabolic disorders (1 source) Morbid (severe) obesity due to excess calories; Translations: [MORBID SEVERE OBES D/T EXCESS YULIYA] Onset: 3 Chronic Other nutritional; endocrine; and metabolic disorders (6 sources) Severe obesity; Translations: [Morbid (severe) obesity due to excess calories] Onset: 3 04-02-2023 Chronic Other nutritional; endocrine; and metabolic disorders (4 sources) Weight gain; Translations: [Abnormal weight gain] 08-21-2023 Episodic Other nutritional; endocrine; and metabolic disorders (4 sources) Abnormal weight gain; Translations: [Abnormal weight gain] 08-21-2023 Episodic Other screening for suspected conditions (not mental disorders or infectious disease) (9 sources) Patient encounter status; Translations: [Encounter for screening mammogram for malignant neoplasm of breast] Onset: 4 06-07-2023 Episodic Other skin disorders (2 sources) Corns and callosities Onset: 2 Resolved: 2 Episodic Residual codes; unclassified (13 sources) Noncompliance with medication regimen; Translations: [Patient's other noncompliance with medication regimen] 06-27-2019 Episodic Retinal detachments; defects; vascular occlusion; and retinopathy (9 sources) Bilateral retinopathy; Translations: [Unspecified background retinopathy] 08-21-2023 Chronic Screening and history of mental health and substance abuse codes (1 source) Personal history of nicotine dependence; Translations: [PERSONAL HISTORY OF NICOTINE DEPEND] Onset: 3 Episodic Substance-related disorders (20 sources) Opioid withdrawal; Translations: [Opioid dependence with withdrawal] Onset: 4 06-07-2023 Chronic Unclassified (1 source) Blood glucose normal; Translations: [Normal blood glucose level] Past or Other Problems Problem Classification Problem Date Documented Da te Episodic/Chronic Abdominal pain (20 sources) Abdominal pain; Translations: [Unspecified abdominal pain] Onset: 08-07-2022 Episodic Mood disorders (2 sources) Mood disorders Onset: 06-07-2023 06-07-2023 Other gastrointestinal disorders (2 sources) Constipation, unspecified; Translations: [Constipation, unspecified] Onset: 12-04-2022 Episodic Results Test Name Value Interpretation Reference Range Facility HbA1c HPLC (Bld) [Mass fract ion]on 11-26-2023 HbA1c (Bld) [Mass fraction] 8.4 % No Panel Informationon 11-25 Bedside Glucose 72 Alanine aminotransferase [En zymatic activity/volume] in Serum or PlasmaOrdered By: Glenna Quinones on 08-21-2023 ALT [Catalytic activity/Vol] 31 U/L 7-52 Albumin [Mass/volume] in Ser um or Plasma by Bromocresol green (BCG) dye binding methoOrdered By: Glenna Quinones on 08-21-2023 Albumin BCG dye [Mass/Vol] 4.1 g/dL 3.5-5.7 Alkaline phosphatase [Enzyma tic activity/volume] in Serum or PlasmaOrdered By: Glenna Quinones on 08-21-2023 ALP [Catalytic activity/Vol] 84 U/L 34-104 Aspartate aminotransferase [ Enzymatic activity/volume] in Serum or PlasmaOrdered By: Glenna Quinones on 08-21-2023 AST [Catalytic activity/Vol] 21 U/L 13-39 Bilirubin.total [Mass/volume ] in Serum or PlasmaOrdered By: Glenna Quinones on 08-21-2023 Bilirubin [Mass/Vol] 0.5 mg/dL 0.3-1.[address] [facility] Calcium [Mass/volume] in Ser um or PlasmaOrdered By: Glenna Quinones on 08-21-2023 Calcium [Mass/Vol] 9.8 mg/dL 8.6-10.3 [facility] Carbon dioxide, total [Moles /volume] in Serum or PlasmaOrdered By: Glenna Quinones on 08-21-2023 CO2 [Moles/Vol] 30.1 mmol/L 21.0-31.0 [facility] Chloride [Moles/volume] in S cindy or PlasmaOrdered By: Glenna Quinones on 08-21-2023 Chloride [Moles/Vol] 102 mmol/L 98-[address] [facility] Cholesterol [Mass/volume] in Serum or PlasmaOrdered By: Glenna Quinones on 08-21-2023 Cholesterol [Mass/Vol] 245 mg/dL 140-200 [facility] Comment on above: Chol less than 200 m g/dl low riskChol 201-239 mg/dl borderline riskChol 240 mg/dl and greater high risk Cholesterol in LDL Calc [Mas s/Vol]Ordered By: Glenna Quinones on 08-21-2023 Cholesterol in LDL [Mass/Vol] TNP Comment on above: Test not performed Cholesterol in LDL [Mass/vol ume] in Serum or PlasmaOrdered By: Glenna Quinones on 08-21-2023 Cholesterol in LDL [Mass/Vol] 173 mg/dL 0-100 Comment on above: LDL ATP III CLASSIFI CATIONLDL less than 100 mg/dL OptimalLDL 100-129 mg/dL Near or above optimalLDL 130-159 mg/dL Borderline highLDL 160-189 mg/dL HighLDL greater than 189 mg/dL Very high Cholesterol in VLDL Calc [Ma ss/Vol]Ordered By: Glenna Quinones on 08-21-2023 Cholesterol in VLDL [Mass/Vol] 91 mg/dL [facility] 08-21-2023 Albumin [Mass/Vol] 4.1 g/dL Normal 3.5-5.7 [facility] Comment on above: Order Comment: Reaso n for Exam Right upper quadrant abdominal pain Performed By: #### H EPATIC, CBC, KEYLA, PT, LIPID, FE and TIBC, NATHALY, LIPASE #### [facility] [address] [place] [address] [place] #### HBSAG, HCV RX PCR, CARSON CHOICE, SMAB, HBSAB, HBCAB, ALPHA PHEN, CERULOP #### [facility] , Albumin/Globulin [Mass ratio] 1.5 {ratio} Normal [facility] Comment on above: Order Comment: Reaso n for Exam Right upper quadrant abdominal pain Performed By: #### H EPATIC, CBC, KEYLA, PT, LIPID, FE and TIBC, NATHALY, LIPASE #### [facility] [address] [place] [address] [place] #### HBSAG, HCV RX PCR, CARSON CHOICE, SMAB, HBSAB, HBCAB, ALPHA PHEN, CERULOP #### [facility] , ALP [Catalytic activity/Vol] 84 U/L Normal 34-[address] [facility] Comment on above: Order Comment: Reaso n for Exam Right upper quadrant abdominal pain Performed By: #### H EPATIC, CBC, KEYLA, PT, LIPID, FE and TIBC, NATHALY, LIPASE #### [address] #### HBSAG, HCV RX PCR, CARSON CHOICE, SMAB, HBSAB, HBCAB, ALPHA PHEN, CERULOP #### [facility] , ALT [Catalytic activity/Vol] 31 U/L Normal 7-[address] [facility] Comment on above: Order Comment: Reaso n for Exam Right upper quadrant abdominal pain Performed By: #### H EPATIC, CBC, KEYLA, PT, LIPID, FE and TIBC, NATHALY, LIPASE #### [place] [address] [place] #### HBSAG, HCV RX PCR, CARSON CHOICE, SMAB, HBSAB, HBCAB, ALPHA PHEN, CERULOP #### [facility] , Anion gap [Moles/Vol] 14.0 mmol/L Normal 6.0-15.0 [facility] Comment on above: Order Comment: Reaso n for Exam Right upper quadrant abdominal pain Performed By: #### H EPATIC, CBC, KEYLA, PT, LIPID, FE and TIBC, NATHALY, LIPASE #### [place] [address] [place] #### HBSAG, HCV RX PCR, CARSON CHOICE, SMAB, HBSAB, HBCAB, ALPHA PHEN, CERULOP #### [facility] , AST [Catalytic activity/Vol] 21 U/L Normal 13-[address] [facility] Comment on above: Order Comment: Reaso n for Exam Right upper quadrant abdominal pain Performed By: #### H EPATIC, CBC, KEYLA, PT, LIPID, FE and TIBC, NATHALY, LIPASE #### [place] [address] [place] #### HBSAG, HCV RX PCR, CARSON CHOICE, SMAB, HBSAB, HBCAB, ALPHA PHEN, CERULOP #### [facility] , Bilirubin [Mass/Vol] 0.5 mg/dL Normal 0.3-1.[address] [facility] Comment on above: Order Comment: Reaso n for Exam Right upper quadrant abdominal pain Performed By: #### H EPATIC, CBC, KEYLA, PT, LIPID, FE and TIBC, NATHALY, LIPASE #### [address] #### HBSAG, HCV RX PCR, CARSON CHOICE, SMAB, HBSAB, HBCAB, ALPHA PHEN, CERULOP #### [facility] , Calcium [Mass/Vol] 9.8 mg/dL Normal 8.6-10.3 [facility] Comment on above: Order Comment: Reaso n for Exam Right upper quadrant abdominal pain Performed By: #### H EPATIC, CBC, KEYLA, PT, LIPID, FE and TIBC, NATHALY, LIPASE #### [address] #### HBSAG, HCV RX PCR, CARSON CHOICE, SMAB, HBSAB, HBCAB, ALPHA PHEN, CERULOP #### [facility] , Chloride [Moles/Vol] 102 mmol/L Normal 98-[address] [facility] Comment on above: Order Comment: Reaso n for Exam Right upper quadrant abdominal pain Performed By: #### H EPATIC, CBC, KEYLA, PT, LIPID, FE and TIBC, NATHALY, LIPASE #### [address] #### HBSAG, HCV RX PCR, CARSON CHOICE, SMAB, HBSAB, HBCAB, ALPHA PHEN, CERULOP #### [facility] , CO2 [Moles/Vol] 30.1 mmol/L Normal 21.0-31.0 [facility] Comment on above: Order Comment: Reaso n for Exam Right upper quadrant abdominal pain Performed By: #### H EPATIC, CBC, KEYLA, PT, LIPID, FE and TIBC, NATHALY, LIPASE #### [address] #### HBSAG, HCV RX PCR, CARSON CHOICE, SMAB, HBSAB, HBCAB, ALPHA PHEN, CERULOP #### [facility] , Creatinine [Mass/Vol] 0.61 mg/dL Normal 0.60-1.[address] [facility] Comment on above: Order Comment: Reaso n for Exam Right upper quadrant abdominal pain Performed By: #### H EPATIC, CBC, KEYLA, PT, LIPID, FE and TIBC, NATHALY, LIPASE #### [address] #### HBSAG, HCV RX PCR, CARSON CHOICE, SMAB, HBSAB, HBCAB, ALPHA PHEN, CERULOP #### [facility] , GFR/1.73 sq M.predicted MDRD (S/P/Bld) [Vol rate/Area] mL/min/{1.73_m2} Normal [facility] Comment on above: Order Comment: Reaso n for Exam Right upper quadrant abdominal pain Performed By: #### H EPATIC, CBC, KEYLA, PT, LIPID, FE and TIBC, NATHALY, LIPASE #### [address] #### HBSAG, HCV RX PCR, CARSON CHOICE, SMAB, HBSAB, HBCAB, ALPHA PHEN, CERULOP #### [facility] , Globulin (S) [Mass/Vol] 2.7 g/dL Normal [facility] Comment on above: Order Comment: Reaso n for Exam Right upper quadrant abdominal pain Performed By: #### H EPATIC, CBC, KEYLA, PT, LIPID, FE and TIBC, NATHALY, LIPASE #### [place] [address] [place] #### HBSAG, HCV RX PCR, CARSON CHOICE, SMAB, HBSAB, HBCAB, ALPHA PHEN, CERULOP #### [facility] , Glucose [Mass/Vol] 54 mg/dL Low 70-100 [facility] Comment on above: Order Comment: Reaso n for Exam Right upper quadrant abdominal pain Result Comment: [facility] Glucose Reference Range is dependent on time and content of last meal. Glucose of more than 200 mg/dL in a nonstressed, ambulatory subject supports the diagnosis of Diabetes Mellitus. ADA recommended reference range Performed By: #### H EPATIC, CBC, KEYLA, PT, LIPID, FE and TIBC, NATHALY, LIPASE #### [address] #### HBSAG, HCV RX PCR, CARSON CHOICE, SMAB, HBSAB, HBCAB, ALPHA PHEN, CERULOP #### [facility] , Potassium [Moles/Vol] 4.1 mmol/L Normal 3.5-5.[address] [facility] Comment on above: Order Comment: Reaso n for Exam Right upper quadrant abdominal pain Performed By: #### H EPATIC, CBC, KEYLA, PT, LIPID, FE and TIBC, NATHALY, LIPASE #### [place] [address] [place] #### HBSAG, HCV RX PCR, CARSON CHOICE, SMAB, HBSAB, HBCAB, ALPHA PHEN, CERULOP #### [facility] , Protein [Mass/Vol] 6.8 g/dL Normal 6.4-8.9 [facility] Comment on above: Order Comment: Reaso n for Exam Right upper quadrant abdominal pain Performed By: #### H EPATIC, CBC, KEYLA, PT, LIPID, FE and TIBC, NATHALY, LIPASE #### [place] [address] [place] #### HBSAG, HCV RX PCR, CARSON CHOICE, SMAB, HBSAB, HBCAB, ALPHA PHEN, CERULOP #### [facility] , Sodium [Moles/Vol] 142 mmol/L Normal 136-145 [facility] Comment on above: Order Comment: Reaso n for Exam Right upper quadrant abdominal pain Performed By: #### H EPATIC, CBC, KEYLA, PT, LIPID, FE and TIBC, NATHALY, LIPASE #### [place] [address] [place] #### HBSAG, HCV RX PCR, CARSON CHOICE, SMAB, HBSAB, HBCAB, ALPHA PHEN, CERULOP #### [facility] , Urea nitrogen [Mass/Vol] 22 mg/dL Normal 7-[address] [facility] Comment on above: Order Comment: Reaso n for Exam Right upper quadrant abdominal pain Performed By: #### H EPATIC, CBC, KEYLA, PT, LIPID, FE and TIBC, NATHALY, LIPASE #### [facility] [address] #### HBSAG, HCV RX PCR, CARSON CHOICE, SMAB, HBSAB, HBCAB, ALPHA PHEN, CERULOP #### [facility] , Creatinine [Mass/volume] in Serum or PlasmaOrdered By: Glenna Quinones on 08-21-2023 Creatinine [Mass/Vol] 0.61 mg/dL 0.60-1.20 [facility] Globulin Calc (S) [Mass/Vol] Ordered By: Glenna Quinones on 08-21-2023 Globulin (S) [Mass/Vol] 2.7 g/dL Glucose [Mass/volume] in Ser um or PlasmaOrdered By: Glenna Quinones on 08-21-2023 Glucose [Mass/Vol] 54 mg/dL 70-100 [facility] Comment on above: ADA recommended refe rence rangeRandom Glucose Reference Range is dependent on time and content of last meal. Glucose of more than 200 mg/dL in a nonstressed, ambulatory subject supports the diagnosis of Diabetes Mellitus. LDL Cholesterol Measuredon 0 08-21-2023 LDL Cholesterol Measured 173 mg/dL High 0-[address] [facility] Comment on above: Order Comment: Reaso n for Exam Right upper quadrant abdominal pain Result Comment: LDL ATP III CLASSIFICATION LDL less than 100 mg/dL Optimal LDL 100-129 mg/dL Near or above optimal LDL 130-159 mg/dL Borderline high LDL 160-189 mg/dL High LDL greater than 189 mg/dL Very high Performed By: #### H EPATIC, CBC, KEYLA, PT, LIPID, FE and TIBC, NATHALY, LIPASE #### [facility] [address] [place] [address] [place] #### HBSAG, HCV RX PCR, CARSON CHOICE, SMAB, HBSAB, HBCAB, ALPHA PHEN, CERULOP #### [facility] , Lipid Panelon 08-21-2023 Cholesterol [Mass/Vol] 245 mg/dL High 140-[address] [facility] Comment on above: Order Comment: Reaso n for Exam Right upper quadrant abdominal pain Result Comment: Chol less than 200 mg/dl low risk Chol 201-239 mg/dl borderline risk Chol 240 mg/dl and greater high risk Performed By: #### H EPATIC, CBC, KEYLA, PT, LIPID, FE and TIBC, NATHALY, LIPASE #### [facility] [address] #### HBSAG, HCV RX PCR, CARSON CHOICE, SMAB, HBSAB, HBCAB, ALPHA PHEN, CERULOP #### [facility] , Cholesterol in HDL [Mass/Vol] 45 mg/dL Normal 23-[address] [facility] Comment on above: Order Comment: Reaso n for Exam Right upper quadrant abdominal pain Result Comment: HDL CHOL ATP-III CLASSIFICATION Cardiovascular Risk HDL > or equal to 60 mg/dL LOW HDL < 40 mg/dL HIGH Performed By: #### H EPATIC, CBC, KEYLA, PT, LIPID, FE and TIBC, NATHALY, LIPASE #### [facility] [address] [place] [address] #### HBSAG, HCV RX PCR, CARSON CHOICE, SMAB, HBSAB, HBCAB, ALPHA PHEN, CERULOP #### [facility] , Cholesterol.total/Chol esterol in HDL [Mass ratio] 5.4 {ratio} Normal <5.[address] [facility] Comment on above: Order Comment: Reaso n for Exam Right upper quadrant abdominal pain Performed By: #### H EPATIC, CBC, KEYLA, PT, LIPID, FE and TIBC, NATHALY, LIPASE #### [facility] [address] [place] [address] #### HBSAG, HCV RX PCR, CARSON CHOICE, SMAB, HBSAB, HBCAB, ALPHA PHEN, CERULOP #### [facility] , LDL Cholesterol,Calculated Not performed Normal 0-100 [facility] Comment on above: Order Comment: Reaso n for Exam Right upper quadrant abdominal pain Performed By: #### H EPATIC, CBC, KEYLA, PT, LIPID, FE and TIBC, NATHALY, LIPASE #### [facility] [address] #### HBSAG, HCV RX PCR, CARSON CHOICE, SMAB, HBSAB, HBCAB, ALPHA PHEN, CERULOP #### [facility] , Triglyceride w/Reflex 459 mg/dL High 0-[address] [facility] Comment on above: Order Comment: Reaso n for Exam Right upper quadrant abdominal pain Result Comment: TRIG ATP III CLASSIFICATION TRIG less than 150 mg/dL Normal TRIG 150-199 mg/dL Borderline high TRIG 200-500 mg/dL High TRIG greater than 500 mg/dL Very high Standard traceable to the Center for Disease Conrtrol and Prevention (CDC) test method. If the triglyceride result is greater than 400, LDLC and related calculations cannot be calculated and resulted. Performed By: #### H EPATIC, CBC, KEYLA, PT, LIPID, FE and TIBC, NATHALY, LIPASE #### [facility] [address] [place] [address] [place] #### HBSAG, HCV RX PCR, CARSON CHOICE, SMAB, HBSAB, HBCAB, ALPHA PHEN, CERULOP #### [facility] , VLDL CHOLESTEROL 91 mg/dL Normal [facility] Comment on above: Order Comment: Reaso n for Exam Right upper quadrant abdominal pain Performed By: #### H EPATIC, CBC, KEYLA, PT, LIPID, FE and TIBC, NATHALY, LIPASE #### [facility] [address] [place] [address] [place] #### HBSAG, HCV RX PCR, CARSON CHOICE, SMAB, HBSAB, HBCAB, ALPHA PHEN, CERULOP #### [facility] , No Panel InformationOrdered By: Glenna Quinones on 08-21-2023 Estimated GFR (CKD-EPI) > 60.0 mL/Min Pharmacy Creatinine Clearance (Chem N/A No Panel Informationon 08-20 Bedside Glucose 129 Potassium [Moles/volume] in Serum or PlasmaOrdered By: Glenna Quinones on 08-21-2023 Potassium [Moles/Vol] 4.1 mmol/L 3.5-5.1 [facility] Protein [Mass/volume] in Ser um or PlasmaOrdered By: Glenna Quinones on 08-21-2023 Protein [Mass/Vol] 6.8 g/dL 6.4-8.9 [facility] Serum or plasma albumin/glob ulin mass ratioOrdered By: Glenna Quinones on 08-21-2023 Albumin/Globulin [Mass ratio] 1.5 {ratio} Serum or plasma anion gap de terminationOrdered By: Glenna Quinones on 08-21-2023 Anion gap [Moles/Vol] 14.0 mmol/L 6.0-15.0 [facility] Serum or plasma high density lipoprotein (HDL) cholesterol measurementOrdered By: Glenna Quinones on 08-21-2023 Cholesterol in HDL [Mass/Vol] 45 mg/dL 23-92 Comment on above: HDL CHOL ATP-III CLA SSIFICATION Cardiovascular RiskHDL > or equal to 60 mg/dL LOWHDL < 40 mg/dL HIGH Serum or plasma total choles terol/high density lipoprotein (HDL) cholesterol mass ratOrdered By: Glenna Quinones on 08-21-2023 Cholesterol.total/Chol esterol in HDL [Mass ratio] 5.4 {ratio} <5.0 Sodium [Moles/volume] in Ser um or PlasmaOrdered By: Glenna Quinones on 08-21-2023 Sodium [Moles/Vol] 142 mmol/L 136-145 [facility] Thyroid Stim Hormone w/Rflxo n 08-21-2023 Thyroid Stim Hormone w/Rflx 1.85 u[iU]/mL Normal 0.45-5.[address] [facility] Comment on above: Order Comment: Reaso n for Exam Right upper quadrant abdominal pain Result Comment: PERF ORMED BY: [facility] [address], [place] [address] PATHOLOGIST [employer] TE[employer]ER HILARIA REES M.D. Performed By: #### H EPATIC, CBC, KEYLA, PT, LIPID, FE and TIBC, NATHALY, LIPASE #### [facility] [address] [place] [address] [place] #### HBSAG, HCV RX PCR, CARSON CHOICE, SMAB, HBSAB, HBCAB, ALPHA PHEN, CERULOP #### [facility] , Thyrotropin [Units/volume] i n Serum or PlasmaOrdered By: Glenna Quinones on 08-21-2023 TSH Qn 1.85 m[IU]/L 0.45-5.33 Triglyceride [Mass/volume] i n Serum or PlasmaOrdered By: Glenna Quinones on 08-21-2023 Triglyceride [Mass/Vol] 459 mg/dL 0-149 Comment on above: If the triglyceride result is greater than 400, LDLC and related calculations cannot be calculated and resulted.TRIG ATP III CLASSIFICATIONTRIG less than 150 mg/dL NormalTRIG 150-199 mg/dL Borderline highTRIG 200-500 mg/dL High TRIG greater than 500 mg/dL Very highStandard traceable to the Center for Disease Conrtrol and Prevention (CDC) test method. Urea nitrogen [Mass/volume] in Serum or PlasmaOrdered By: Glenna Quinones on 08-21-2023 Urea nitrogen [Mass/Vol] 22 mg/dL 7-25 Vitamin B12on 08-21-2023 Cobalamin (Vitamin B12) [Mass/Vol] 507 pg/mL Normal 180-[address] [facility] Comment on above: Order Comment: Reaso n for Exam Right upper quadrant abdominal pain Performed By: #### H EPATIC, CBC, KEYLA, PT, LIPID, FE and TIBC, NATHALY, LIPASE #### [facility] [address] [place] [address] [place] #### HBSAG, HCV RX PCR, CARSON CHOICE, SMAB, HBSAB, HBCAB, ALPHA PHEN, CERULOP #### [facility] , Vitamin B12 ser/plasOrdered By: Glenna Quinones on 08-21-2023 Cobalamin (Vitamin B12) [Mass/Vol] 507 pg/mL 180-914 Laboratory - Hematology and Cell countson 05-28-2023 HbA1c (Bld) [Mass fraction] 10.1 % A1C HEMOGLOBINon 02-19-2023 HbA1c (Bld) [Mass fraction] 8.6 % [facility] [employer] Other Glucose - FINGER STICKon Glucose [Mass/Vol] 160 mg/dL [facility] [employer] Other HbA1c (Bld) [Mass fraction]o n 02-19-2023 A1C HEMOGLOBIN [facility] [employer] Other Pancreatic Elastase, Stoolon 12-06-2022 Pancreatic Elastase, Stool 305 Normal >[address] [facility] Comment on above: Order Comment: Reaso n for Exam 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 disease) Result Comment: Resu lt Units: ug Elast./g Severe Pancreatic Insufficiency: <100 Moderate Pancreatic Insufficiency: 100 - 200 Normal: >200 Performed at: - [facility] [address] [id number] Seed Pelleter: Karli Lux MD, Phone: [phone] PERFORMED BY: [place] [address] PATHOLOGIST ATHLETICS TEACHER HILARIA REES M.D. Performed By: #### E LASTASE STOOL #### [facility] , CARSON with Reflexon 12-04-2022 CARSON with Reflex Negative Normal Negative [facility] Comment on above: Order Comment: Reaso n for Exam Right upper quadrant abdominal pain Result Comment: Perf ormed at: - [facility] [address] [id number] Seed Pelleter: Iftikhar Romero PhD, Phone: [phone] Performed By: #### H EPATIC, CBC, KEYLA, PT, LIPID, FE and TIBC, NATHALY, LIPASE #### [place] [address] [place] #### HBSAG, HCV RX PCR, CASRON CHOICE, SMAB, HBSAB, HBCAB, ALPHA PHEN, CERULOP #### [facility] , Actin smooth muscle IgG Ab [ Units/volume] in SerumOrdered By: Mark Gramajo on 12-04-2022 Actin smooth muscle IgG Qn (S) 6 Units 0-19 Comment on above: Negative 0 - 19 Weak positive 20 - 30 Moderate to strong positive >30 Actin Antibodies are found in 52-85% of patients with autoimmune hepatitis or chronic active hepatitis and in 22% of patients with primary biliary cirrhosis. Alanine aminotransferase [En zymatic activity/volume] in Serum or PlasmaOrdered By: Mark Gramajo on 12-04-2022 ALT [Catalytic activity/Vol] 15 U/L 7-52 Albumin [Mass/volume] in Ser um or Plasma by Bromocresol green (BCG) dye binding methoOrdered By: Mark Gramajo on 12-04-2022 Albumin BCG dye [Mass/Vol] 3.9 g/dL 3.5-5.7 Alkaline phosphatase [Enzyma tic activity/volume] in Serum or PlasmaOrdered By: Mark Gramajo on 12-04-2022 ALP [Catalytic activity/Vol] 83 U/L 34-104 Tmauo-3-Ktacktgteji Phenotyp davis 12-04-2022 Alpha 1 Anti-Trypsin 137 mg/dL Normal 101-[address] [facility] Comment on above: Order Comment: Reaso n for Exam Right upper quadrant abdominal pain Performed By: #### H EPATIC, CBC, KEYLA, PT, LIPID, FE and TIBC, NATHALY, LIPASE #### [facility] [address] [place] [address] #### HBSAG, HCV RX PCR, CARSON CHOICE, SMAB, HBSAB, HBCAB, ALPHA PHEN, CERULOP #### [facility] , Phenotype (P1) MM Normal . [facility] Comment on above: Order Comment: Reaso n for Exam Right upper quadrant abdominal pain Result Comment: Phen otype Population A-1-AT Concentration* Incidence % % of MM (Typical Range) MM 86.5% 100% (96 - 189) MS 8.0% 86% (83 - 161) MZ 3.9% 61% (60 - 111) FM 0.4% 100% (93 - 191) SZ 0.3% 41% (42 - 75) SS 0.1% 64% (62 - 119) ZZ 0.05% 19% (16 - 38) FS 0.05% 70% (70 - 128) FZ Unknown 46% (44 - 88) FF Unknown Unknown *A-1-AT concentration in the homozygous MM phenotype is taken as the reference normal. Percent deficiency in each phenotype is reported relative to this reference. Ranges used to confirm phenotype. Performed at: - [address] [id number] Seed Pelleter: Iftikhar Romero PhD, Phone: [phone] Performed at: [facility] [address] [id number] Seed Pelleter: Karli Lux MD, Phone: [phone] Performed By: #### H EPATIC, CBC, KEYLA, PT, LIPID, FE and TIBC, NATHALY, LIPASE #### [address] #### HBSAG, HCV RX PCR, CARSON CHOICE, SMAB, HBSAB, HBCAB, ALPHA PHEN, CERULOP #### [facility] , Amylaseon 12-04-2022 Amylase [Catalytic activity/Vol] 33 U/L Normal [facility] Comment on above: Order Comment: Reaso n for Exam Right upper quadrant abdominal pain Performed By: #### H EPATIC, CBC, KEYLA, PT, LIPID, FE and TIBC, NATHALY, LIPASE #### [place] [address] [place] #### HBSAG, HCV RX PCR, CARSON CHOICE, SMAB, HBSAB, HBCAB, ALPHA PHEN, CERULOP #### [facility] , Amylase [Enzymatic activity/ volume] in Serum or PlasmaOrdered By: Mark Gramajo on 12-04-2022 Amylase [Catalytic activity/Vol] 33 U/L Aspartate aminotransferase [ Enzymatic activity/volume] in Serum or PlasmaOrdered By: Mark Gramajo on 12-04-2022 AST [Catalytic activity/Vol] 10 U/L 13 Basophils Auto (Bld) [#/Vol] Ordered By: Mark Gramajo on 12-04-2022 Basophils (Bld) [#/Vol] 0.1 10*3/uL 0.0-0.2 Basophils/100 WBC Auto (Bld) Ordered By: Mark Gramajo on 12-04-2022 Basophils/100 WBC (Bld) 0.7 % . Bilirubin.direct [Mass/volum e] in Serum or PlasmaOrdered By: Mark Gramajo on 12-04-2022 Bilirubin.direct [Mass/Vol] 0.10 mg/dL 0.03-0.18 Bilirubin.total [Mass/volume ] in Serum or PlasmaOrdered By: Mark Gramajo on 12-04-2022 Bilirubin [Mass/Vol] 0.4 mg/dL 0.3-1.[address] [facility] Ceruloplasminon 12-04-2022 Ceruloplasmin 33.7 mg/dL Normal 19.0-39.0 [facility] Comment on above: Order Comment: Reaso n for Exam Right upper quadrant abdominal pain Result Comment: Perf ormed at: CB - [facility] [address] [id number] Seed Pelleter: Iftikhar Romero PhD, Phone: [phone] PERFORMED BY: [place] [address] PATHOLOGIST ATHLETICS TEACHER HILARIA REES M.D. Performed By: #### H EPATIC, CBC, KEYLA, PT, LIPID, FE and TIBC, NATHALY, LIPASE #### [facility] [address] #### HBSAG, HCV RX PCR, CARSON CHOICE, SMAB, HBSAB, HBCAB, ALPHA PHEN, CERULOP #### [facility] , Cholesterol [Mass/volume] in Serum or PlasmaOrdered By: Mark Gramajo on 12-04-2022 Cholesterol [Mass/Vol] 219 mg/dL 140-200 [facility] Comment on above: Chol less than 200 m g/dl low riskChol 201-239 mg/dl borderline riskChol 240 mg/dl and greater high risk Cholesterol in LDL Calc [Mas s/Vol]Ordered By: Mark Gramajo on 12-04-2022 Cholesterol in LDL [Mass/Vol] 131 mg/dL 0-100 Comment on above: LDL ATP III CLASSIFI CATIONLDL less than 100 mg/dL OptimalLDL 100-129 mg/dL Near or above optimalLDL 130-159 mg/dL Borderline highLDL 160-189 mg/dL HighLDL greater than 189 mg/dL Very high Cholesterol in VLDL Calc [Ma ss/Vol]Ordered By: Mark Gramajo on 12-04-2022 Cholesterol in VLDL [Mass/Vol] 37 mg/dL Complete Blood Count Auto Di ffon 12-04-2022 Basophils (Bld) [#/Vol] 0.1 10*3/uL Normal 0.0-0.[address] [facility] Comment on above: Order Comment: Reaso n for Exam Right upper quadrant abdominal pain Result Comment: PERF ORMED BY: [place] [address] PATHOLOGIST ATHLETICS TEACHER HILARIA REES M.D. Performed By: #### H EPATIC, CBC, KEYLA, PT, LIPID, FE and TIBC, NATHALY, LIPASE #### [address] #### HBSAG, HCV RX PCR, CARSON CHOICE, SMAB, HBSAB, HBCAB, ALPHA PHEN, CERULOP #### [facility] , Basophils/100 WBC (Bld) 0.7 % Normal . [facility] Comment on above: Order Comment: Reaso n for Exam Right upper quadrant abdominal pain Performed By: #### H EPATIC, CBC, KEYLA, PT, LIPID, FE and TIBC, NATHALY, LIPASE #### [facility] [address] [place] [address] [place] #### HBSAG, HCV RX PCR, CARSON CHOICE, SMAB, HBSAB, HBCAB, ALPHA PHEN, CERULOP #### [facility] , Eosinophils (Bld) [#/Vol] 0.3 10*3/uL Normal 0.0-0.[address] [facility] Comment on above: Order Comment: Reaso n for Exam Right upper quadrant abdominal pain Performed By: #### H EPATIC, CBC, KEYLA, PT, LIPID, FE and TIBC, NATHALY, LIPASE #### [address] #### HBSAG, HCV RX PCR, CARSON CHOICE, SMAB, HBSAB, HBCAB, ALPHA PHEN, CERULOP #### [facility] , Eosinophils/100 WBC (Bld) 2.2 % Normal . [facility] Comment on above: Order Comment: Reaso n for Exam Right upper quadrant abdominal pain Performed By: #### H EPATIC, CBC, KEYLA, PT, LIPID, FE and TIBC, NATHALY, LIPASE #### [address] #### HBSAG, HCV RX PCR, CARSON CHOICE, SMAB, HBSAB, HBCAB, ALPHA PHEN, CERULOP #### [facility] , Erythrocyte distribution width (RBC) [Ratio] 13.7 % Normal 11.9-15.[address] [facility] Comment on above: Order Comment: Reaso n for Exam Right upper quadrant abdominal pain Performed By: #### H EPATIC, CBC, KEYLA, PT, LIPID, FE and TIBC, NATHALY, LIPASE #### [address] #### HBSAG, HCV RX PCR, CARSON CHOICE, SMAB, HBSAB, HBCAB, ALPHA PHEN, CERULOP #### [facility] , Hematocrit (Bld) [Volume fraction] 41.4 % Normal 34.0-46.[address] [facility] Comment on above: Order Comment: Reaso n for Exam Right upper quadrant abdominal pain Performed By: #### H EPATIC, CBC, KEYLA, PT, LIPID, FE and TIBC, NATHALY, LIPASE #### [place] [address] [place] #### HBSAG, HCV RX PCR, CARSON CHOICE, SMAB, HBSAB, HBCAB, ALPHA PHEN, CERULOP #### [facility] , Hemoglobin (Bld) [Mass/Vol] 13.7 g/dL Normal 11.8-15.[address] [facility] Comment on above: Order Comment: Reaso n for Exam Right upper quadrant abdominal pain Performed By: #### H EPATIC, CBC, KEYLA, PT, LIPID, FE and TIBC, NATHALY, LIPASE #### [address] #### HBSAG, HCV RX PCR, CARSON CHOICE, SMAB, HBSAB, HBCAB, ALPHA PHEN, CERULOP #### [facility] , Lymphocytes (Bld) [#/Vol] 2.8 10*3/uL Normal 1.00-4.[address] [facility] Comment on above: Order Comment: Reaso n for Exam Right upper quadrant abdominal pain Performed By: #### H EPATIC, CBC, KEYLA, PT, LIPID, FE and TIBC, NATHALY, LIPASE #### [address] #### HBSAG, HCV RX PCR, CARSON CHOICE, SMAB, HBSAB, HBCAB, ALPHA PHEN, CERULOP #### [facility] , Lymphocytes/100 WBC (Bld) 22.5 % Normal . [facility] Comment on above: Order Comment: Reaso n for Exam Right upper quadrant abdominal pain Performed By: #### H EPATIC, CBC, KEYLA, PT, LIPID, FE and TIBC, NATHALY, LIPASE #### [address] #### HBSAG, HCV RX PCR, CARSON CHOICE, SMAB, HBSAB, HBCAB, ALPHA PHEN, CERULOP #### [facility] , MCH (RBC) [Entitic mass] 28.7 pg Normal 24.7-34.[address] [facility] Comment on above: Order Comment: Reaso n for Exam Right upper quadrant abdominal pain Performed By: #### H EPATIC, CBC, KEYLA, PT, LIPID, FE and TIBC, NATHALY, LIPASE #### [place] [address] [place] #### HBSAG, HCV RX PCR, CARSON CHOICE, SMAB, HBSAB, HBCAB, ALPHA PHEN, CERULOP #### [facility] , MCV (RBC) [Entitic vol] 86.4 fL Normal 80-[address] [facility] Comment on above: Order Comment: Reaso n for Exam Right upper quadrant abdominal pain Performed By: #### H EPATIC, CBC, KEYLA, PT, LIPID, FE and TIBC, NATHALY, LIPASE #### [address] #### HBSAG, HCV RX PCR, CARSON CHOICE, SMAB, HBSAB, HBCAB, ALPHA PHEN, CERULOP #### [facility] , Mean Corpuscular HGB Conc 33.2 g/dL Normal 32.0-35.[address] [facility] Comment on above: Order Comment: Reaso n for Exam Right upper quadrant abdominal pain Performed By: #### H EPATIC, CBC, KEYLA, PT, LIPID, FE and TIBC, NATHALY, LIPASE #### [address] #### HBSAG, HCV RX PCR, CARSON CHOICE, SMAB, HBSAB, HBCAB, ALPHA PHEN, CERULOP #### [facility] , Monocytes (Bld) [#/Vol] 0.8 10*3/uL Normal 0.0-0.[address] [facility] Comment on above: Order Comment: Reaso n for Exam Right upper quadrant abdominal pain Performed By: #### H EPATIC, CBC, KEYLA, PT, LIPID, FE and TIBC, NATHALY, LIPASE #### [address] #### HBSAG, HCV RX PCR, CARSON CHOICE, SMAB, HBSAB, HBCAB, ALPHA PHEN, CERULOP #### [facility] , Monocytes/100 WBC (Bld) 6.7 % Normal . [facility] Comment on above: Order Comment: Reaso n for Exam Right upper quadrant abdominal pain Performed By: #### H EPATIC, CBC, KEYLA, PT, LIPID, FE and TIBC, NATHALY, LIPASE #### [facility] [address] [place] [address] [place] #### HBSAG, HCV RX PCR, CARSON CHOICE, SMAB, HBSAB, HBCAB, ALPHA PHEN, CERULOP #### [facility] , Neutrophils (Bld) [#/Vol] 8.4 10*3/uL High 1.8-7.[address] [facility] Comment on above: Order Comment: Reaso n for Exam Right upper quadrant abdominal pain Performed By: #### H EPATIC, CBC, KEYLA, PT, LIPID, FE and TIBC, NATHALY, LIPASE #### [address] #### HBSAG, HCV RX PCR, CARSON CHOICE, SMAB, HBSAB, HBCAB, ALPHA PHEN, CERULOP #### [facility] , Neutrophils/100 WBC (Bld) 67.9 % Normal . [facility] Comment on above: Order Comment: Reaso n for Exam Right upper quadrant abdominal pain Performed By: #### H EPATIC, CBC, KEYLA, PT, LIPID, FE and TIBC, NATHALY, LIPASE #### [place] [address] [place] #### HBSAG, HCV RX PCR, CARSON CHOICE, SMAB, HBSAB, HBCAB, ALPHA PHEN, CERULOP #### [facility] , NRBC% 0.0 /100{WBC} Normal 0-0.5 [facility] Comment on above: Order Comment: Reaso n for Exam Right upper quadrant abdominal pain Performed By: #### H EPATIC, CBC, KEYLA, PT, LIPID, FE and TIBC, NATHALY, LIPASE #### [place] [address] [place] #### HBSAG, HCV RX PCR, CARSON CHOICE, SMAB, HBSAB, HBCAB, ALPHA PHEN, CERULOP #### [facility] , Platelet mean volume (Bld) [Entitic vol] 7.7 fL Normal 6.3-10.7 [facility] Comment on above: Order Comment: Reaso n for Exam Right upper quadrant abdominal pain Performed By: #### H EPATIC, CBC, KEYLA, PT, LIPID, FE and TIBC, NATHALY, LIPASE #### [address] #### HBSAG, HCV RX PCR, CARSON CHOICE, SMAB, HBSAB, HBCAB, ALPHA PHEN, CERULOP #### [facility] , Platelets (Bld) [#/Vol] 303 10*3/uL Normal 150-[address] [facility] Comment on above: Order Comment: Reaso n for Exam Right upper quadrant abdominal pain Performed By: #### H EPATIC, CBC, KEYLA, PT, LIPID, FE and TIBC, NATHALY, LIPASE #### [address] #### HBSAG, HCV RX PCR, CARSON CHOICE, SMAB, HBSAB, HBCAB, ALPHA PHEN, CERULOP #### [facility] , RBC (Bld) [#/Vol] 4.79 10*6/uL Normal 3.60-5.00 [facility] Comment on above: Order Comment: Reaso n for Exam Right upper quadrant abdominal pain Performed By: #### H EPATIC, CBC, KEYLA, PT, LIPID, FE and TIBC, NATHALY, LIPASE #### [address] #### HBSAG, HCV RX PCR, CARSON CHOICE, SMAB, HBSAB, HBCAB, ALPHA PHEN, CERULOP #### [facility] , WBC (Bld) [#/Vol] 12.3 10*3/uL High 3.8-11.6 [facility] Comment on above: Order Comment: Reaso n for Exam Right upper quadrant abdominal pain Performed By: #### H EPATIC, CBC, KEYLA, PT, LIPID, FE and TIBC, NATHALY, LIPASE #### [place] [address] [place] #### HBSAG, HCV RX PCR, CARSON CHOICE, SMAB, HBSAB, HBCAB, ALPHA PHEN, CERULOP #### [facility] , Eosinophils Auto (Bld) [#/Vo l]Ordered By: Mark Gramajo on 12-04-2022 Eosinophils (Bld) [#/Vol] 0.3 10*3/uL 0.0-0.45 Eosinophils/100 WBC Auto (Bl d)Ordered By: Mark Gramajo on 12-04-2022 Eosinophils/100 WBC (Bld) 2.2 % . Erythrocyte distribution wid th Auto (RBC) [Ratio]Ordered By: Mark Gramajo on 12-04-2022 Erythrocyte distribution width (RBC) [Ratio] 13.7 % 11.9-15.3 Ferritinon 12-04-2022 Ferritin [Mass/Vol] 56.2 ng/mL Normal 11.0-306.8 [facility] Comment on above: Order Comment: Reaso n for Exam Right upper quadrant abdominal pain Performed By: #### H EPATIC, CBC, KEYLA, PT, LIPID, FE and TIBC, NATHALY, LIPASE #### [facility] [address] [place] [address] #### HBSAG, HCV RX PCR, CARSON CHOICE, SMAB, HBSAB, HBCAB, ALPHA PHEN, CERULOP #### [facility] , Ferritin [Mass/volume] in Se rum or PlasmaOrdered By: Mark Gramajo on 12-04-2022 Ferritin [Mass/Vol] 56.2 ng/mL 11.0-306.8 [facility] Globulin Calc (S) [Mass/Vol] Ordered By: Mark Gramajo on 12-04-2022 Globulin (S) [Mass/Vol] 3.1 g/dL Hematocrit Auto (Bld) [Volum e fraction]Ordered By: Mark Gramajo on 12-04-2022 Hematocrit (Bld) [Volume fraction] 41.4 % 34.0-46.4 Hemoglobin [Mass/volume] in BloodOrdered By: Mark Gramajo on 12-04-2022 Hemoglobin (Bld) [Mass/Vol] 13.7 g/dL 11.8-15.4 Hep C Ab wRfx to Qnt PCRon 0 12-04-2022 Hepatitis C Quantitation Normal [facility] Comment on above: Order Comment: Reaso n for Exam Right upper quadrant abdominal pain Result Comment: HCV Not Detected Performed By: #### H EPATIC, CBC, KEYLA, PT, LIPID, FE and TIBC, NATHALY, LIPASE #### [place] [address] [place] #### HBSAG, HCV RX PCR, CARSON CHOICE, SMAB, HBSAB, HBCAB, ALPHA PHEN, CERULOP #### [facility] , Hepatitis C Virus Antibody Reactive Critically abnormal Non Reactive [facility] Comment on above: Order Comment: Reaso n for Exam Right upper quadrant abdominal pain Performed By: #### H EPATIC, CBC, KEYLA, PT, LIPID, FE and TIBC, NATHALY, LIPASE #### [address] #### HBSAG, HCV RX PCR, CARSON CHOICE, SMAB, HBSAB, HBCAB, ALPHA PHEN, CERULOP #### [facility] , Interpretation Normal . [facility] Comment on above: Order Comment: Reaso n for Exam Right upper quadrant abdominal pain Result Comment: Posi tive HCV antibody screen without the presence of HCV RNA is consistent with a resolved past infection or a false positive HCV antibody. Consider repeat testing after one month. Performed at: [facility] [address] [id number] Seed Pelleter: Iftikhar Romero PhD, Phone: [phone] Performed at: [facility] [address] [id number] Seed Pelleter: Karli Lux MD, Phone: [phone] Performed By: #### H EPATIC, CBC, KEYLA, PT, LIPID, FE and TIBC, NATHALY, LIPASE #### [place] [address] [place] #### HBSAG, HCV RX PCR, CARSON CHOICE, SMAB, HBSAB, HBCAB, ALPHA PHEN, CERULOP #### [facility] , Test Information: Normal . [facility] Comment on above: Order Comment: Reaso n for Exam Right upper quadrant abdominal pain Result Comment: The quantitative range of this assay is 15 IU/mL to 100 million IU/mL. Performed By: #### H EPATIC, CBC, KEYLA, PT, LIPID, FE and TIBC, NATHALY, LIPASE #### [address] #### HBSAG, HCV RX PCR, CARSON CHOICE, SMAB, HBSAB, HBCAB, ALPHA PHEN, CERULOP #### [facility] , Hepatic Panelon 12-04-2022 Albumin [Mass/Vol] 3.9 g/dL Normal 3.5-5.7 [facility] Comment on above: Order Comment: Reaso n for Exam Right upper quadrant abdominal pain Performed By: #### H EPATIC, CBC, KEYLA, PT, LIPID, FE and TIBC, NATHALY, LIPASE #### [address] #### HBSAG, HCV RX PCR, CARSON CHOICE, SMAB, HBSAB, HBCAB, ALPHA PHEN, CERULOP #### [facility] , Albumin/Globulin [Mass ratio] 1.3 {ratio} Normal [facility] Comment on above: Order Comment: Reaso n for Exam Right upper quadrant abdominal pain Performed By: #### H EPATIC, CBC, KEYLA, PT, LIPID, FE and TIBC, NATHALY, LIPASE #### [place] [address] [place] #### HBSAG, HCV RX PCR, CARSON CHOICE, SMAB, HBSAB, HBCAB, ALPHA PHEN, CERULOP #### [facility] , ALP [Catalytic activity/Vol] 83 U/L Normal 34-[address] [facility] Comment on above: Order Comment: Reaso n for Exam Right upper quadrant abdominal pain Performed By: #### H EPATIC, CBC, KEYLA, PT, LIPID, FE and TIBC, NATHALY, LIPASE #### [place] [address] [place] #### HBSAG, HCV RX PCR, CARSON CHOICE, SMAB, HBSAB, HBCAB, ALPHA PHEN, CERULOP #### [facility] , ALT [Catalytic activity/Vol] 15 U/L Normal 7-[address] [facility] Comment on above: Order Comment: Reaso n for Exam Right upper quadrant abdominal pain Performed By: #### H EPATIC, CBC, KEYLA, PT, LIPID, FE and TIBC, NATHALY, LIPASE #### [address] #### HBSAG, HCV RX PCR, CARSON CHOICE, SMAB, HBSAB, HBCAB, ALPHA PHEN, CERULOP #### [facility] , AST [Catalytic activity/Vol] 10 U/L Low 13-[address] [facility] Comment on above: Order Comment: Reaso n for Exam Right upper quadrant abdominal pain Performed By: #### H EPATIC, CBC, KEYLA, PT, LIPID, FE and TIBC, NATHALY, LIPASE #### [place] [address] [place] #### HBSAG, HCV RX PCR, CARSON CHOICE, SMAB, HBSAB, HBCAB, ALPHA PHEN, CERULOP #### [facility] , Bilirubin [Mass/Vol] 0.4 mg/dL Normal 0.3-1.[address] [facility] Comment on above: Order Comment: Reaso n for Exam Right upper quadrant abdominal pain Performed By: #### H EPATIC, CBC, KEYLA, PT, LIPID, FE and TIBC, NATHALY, LIPASE #### [place] [address] [place] #### HBSAG, HCV RX PCR, CARSON CHOICE, SMAB, HBSAB, HBCAB, ALPHA PHEN, CERULOP #### [facility] , Bilirubin,Indirect 0.3 mg/dL Normal [facility] Comment on above: Order Comment: Reaso n for Exam Right upper quadrant abdominal pain Performed By: #### H EPATIC, CBC, KEYLA, PT, LIPID, FE and TIBC, NATHALY, LIPASE #### [place] [address] [place] #### HBSAG, HCV RX PCR, CARSON CHOICE, SMAB, HBSAB, HBCAB, ALPHA PHEN, CERULOP #### [facility] , Bilirubin.indirect [Mass/Vol] 0.10 mg/dL Normal 0.03-0.[address] [facility] Comment on above: Order Comment: Reaso n for Exam Right upper quadrant abdominal pain Performed By: #### H EPATIC, CBC, KEYLA, PT, LIPID, FE and TIBC, NATHALY, LIPASE #### [address] #### HBSAG, HCV RX PCR, CARSON CHOICE, SMAB, HBSAB, HBCAB, ALPHA PHEN, CERULOP #### [facility] , Globulin (S) [Mass/Vol] 3.1 g/dL Normal [facility] Comment on above: Order Comment: Reaso n for Exam Right upper quadrant abdominal pain Performed By: #### H EPATIC, CBC, KEYLA, PT, LIPID, FE and TIBC, NATHALY, LIPASE #### [address] #### HBSAG, HCV RX PCR, CARSON CHOICE, SMAB, HBSAB, HBCAB, ALPHA PHEN, CERULOP #### [facility] , Protein [Mass/Vol] 7.0 g/dL Normal 6.4-8.9 [facility] Comment on above: Order Comment: Reaso n for Exam Right upper quadrant abdominal pain Performed By: #### H EPATIC, CBC, KEYLA, PT, LIPID, FE and TIBC, NATHALY, LIPASE #### [address] #### HBSAG, HCV RX PCR, CARSON CHOICE, SMAB, HBSAB, HBCAB, ALPHA PHEN, CERULOP #### [facility] , Hepatitis B Core Antibodyon 12-04-2022 Hepatitis B Core Antibody Negative Normal Negative [facility] Comment on above: Order Comment: Reaso n for Exam Right upper quadrant abdominal pain Result Comment: Perf ormed at: - [facility] [address] [id number] Seed Pelleter: Iftikhar Romero PhD, Phone: [phone] Performed By: #### H EPATIC, CBC, KEYLA, PT, LIPID, FE and TIBC, NATHALY, LIPASE #### [address] #### HBSAG, HCV RX PCR, CARSON CHOICE, SMAB, HBSAB, HBCAB, ALPHA PHEN, CERULOP #### [facility] , Hepatitis B Surface Antibody on 12-04-2022 Hepatitis B Surface Antibody Non-Reactive Normal . [facility] Comment on above: Order Comment: Reaso n for Exam Right upper quadrant abdominal pain Result Comment: Non Reactive: Inconsistent with immunity, less than 10 mIU/mL Reactive: Consistent with immunity, greater than 9.9 mIU/mL Performed By: #### H EPATIC, CBC, KEYLA, PT, LIPID, FE and TIBC, NATHALY, LIPASE #### [address] #### HBSAG, HCV RX PCR, CARSON CHOICE, SMAB, HBSAB, HBCAB, ALPHA PHEN, CERULOP #### [facility] , Hepatitis B Surface Antigeno n 12-04-2022 HBsAg Screen Negative Normal Negative [facility] Comment on above: Order Comment: Reaso n for Exam Right upper quadrant abdominal pain Result Comment: PERF ORMED BY: [place] [address] PATHOLOGIST ATHLETICS TEACHER HILARIA REES M.D. Performed By: #### H EPATIC, CBC, KEYLA, PT, LIPID, FE and TIBC, NATHALY, LIPASE #### [address] #### HBSAG, HCV RX PCR, CARSON CHOICE, SMAB, HBSAB, HBCAB, ALPHA PHEN, CERULOP #### [facility] , Hepatitis B virus surface Ag [Presence] in Serum or Plasma by ImmunoassayOrdered By: Mark Gramajo on 12-04-2022 HBV surface Ag IA Ql Negative Negative [facility] INR in Platelet poor plasma by Coagulation assayOrdered By: Mark Gramajo on 12-04-2022 INR Coag (PPP) [Relative time] 1.0 {INR} Comment on above: INR Therapeutic Rang e A) Pre- and Peroperative OAT started two weeks before surgery. NOT HIP SURGERY: 1.5 - 2.5 HIP SURGERY: 2 - 3B) Primary and secondary prevention of venous THROMBOSIS: 2 - 3C) Active venous thrombosis, pulmonary embolismand prevention of recurrent venous thrombosis: 2 - 3D) Prevention of arterial thromboembolismincluding patients with mechanical heart valves: 3 - 4.5 Iron [Mass/volume] in Serum or PlasmaOrdered By: Mark Gramajo on 12-04-2022 Iron [Mass/Vol] 51 ug/dL 50-212 Iron and TIBC Profileon 11-21 % Iron Saturation 14.0 % Low 20-50 [facility] Comment on above: Order Comment: Reaso n for Exam Right upper quadrant abdominal pain Performed By: #### H EPATIC, CBC, KEYLA, PT, LIPID, FE and TIBC, NATHALY, LIPASE #### [facility] [address] [place] [address] [place] #### HBSAG, HCV RX PCR, CARSON CHOICE, SMAB, HBSAB, HBCAB, ALPHA PHEN, CERULOP #### [facility] , Iron [Mass/Vol] 51 ug/dL Normal 50-212 [facility] Comment on above: Order Comment: Reaso n for Exam Right upper quadrant abdominal pain Performed By: #### H EPATIC, CBC, KEYLA, PT, LIPID, FE and TIBC, NATHALY, LIPASE #### [place] [address] [place] #### HBSAG, HCV RX PCR, CARSON CHOICE, SMAB, HBSAB, HBCAB, ALPHA PHEN, CERULOP #### [facility] , Total Iron Binding Capacity 364 ug/dL Normal 255-[address] [facility] Comment on above: Order Comment: Reaso n for Exam Right upper quadrant abdominal pain Performed By: #### H EPATIC, CBC, KEYLA, PT, LIPID, FE and TIBC, NATHALY, LIPASE #### [place] [address] [place] #### HBSAG, HCV RX PCR, CARSON CHOICE, SMAB, HBSAB, HBCAB, ALPHA PHEN, CERULOP #### [facility] , Transferrin [Mass/Vol] 260 mg/dL Normal 203-[address] [facility] Comment on above: Order Comment: Reaso n for Exam Right upper quadrant abdominal pain Performed By: #### H EPATIC, CBC, KEYLA, PT, LIPID, FE and TIBC, NATHALY, LIPASE #### [facility] [address] #### HBSAG, HCV RX PCR, CARSON CHOICE, SMAB, HBSAB, HBCAB, ALPHA PHEN, CERULOP #### [facility] , Iron binding capacity [Mass/ volume] in Serum or PlasmaOrdered By: Mark Gramajo on 12-04-2022 Iron binding capacity [Mass/Vol] 364 ug/dL 255-450 Iron saturation [Mass Fracti on] in Serum or PlasmaOrdered By: Mark Gramajo on 12-04-2022 Iron saturation [Mass fraction] 14.0 % 20-50 Laboratory - CoagulationOrde red By: Mark Gramajo on 12-04-2022 PT Coag (PPP) [Time] 11.3 s 9.0-12.[address] [facility] Leukocytes [#/volume] correc tu for nucleated erythrocytes in Blood by Automated counOrdered By: Mark Gramajo on 12-04-2022 WBC corrected for nucl RBC Auto (Bld) [#/Vol] 12.3 10*3/uL 3.8-11.6 Lipaseon 12-04-2022 Lipase [Catalytic activity/Vol] 18.0 U/L Normal 11.0-82.[address] [facility] Comment on above: Order Comment: Reaso n for Exam Right upper quadrant abdominal pain Performed By: #### H EPATIC, CBC, KEYLA, PT, LIPID, FE and TIBC, NATHALY, LIPASE #### [facility] [address] [place] [address] [place] #### HBSAG, HCV RX PCR, CARSON CHOICE, SMAB, HBSAB, HBCAB, ALPHA PHEN, CERULOP #### [facility] , Lipase [Enzymatic activity/v olume] in Serum or PlasmaOrdered By: Mark Gramajo on 12-04-2022 Lipase [Catalytic activity/Vol] 18.0 U/L 11.0-82.0 Lipid Panelon 12-04-2022 Cholesterol [Mass/Vol] 219 mg/dL High 140-[address] [facility] Comment on above: Order Comment: Reaso n for Exam Right upper quadrant abdominal pain Result Comment: Chol less than 200 mg/dl low risk Chol 201-239 mg/dl borderline risk Chol 240 mg/dl and greater high risk Performed By: #### H EPATIC, CBC, KEYLA, PT, LIPID, FE and TIBC, NATHALY, LIPASE #### [address] #### HBSAG, HCV RX PCR, CARSON CHOICE, SMAB, HBSAB, HBCAB, ALPHA PHEN, CERULOP #### [facility] , Cholesterol in HDL [Mass/Vol] 50 mg/dL Normal 23-[address] [facility] Comment on above: Order Comment: Reaso n for Exam Right upper quadrant abdominal pain Result Comment: HDL CHOL ATP-III CLASSIFICATION Cardiovascular Risk HDL > or equal to 60 mg/dL LOW HDL < 40 mg/dL HIGH Performed By: #### H EPATIC, CBC, KEYLA, PT, LIPID, FE and TIBC, NATHALY, LIPASE #### [facility] [address] [place] [address] #### HBSAG, HCV RX PCR, CARSON CHOICE, SMAB, HBSAB, HBCAB, ALPHA PHEN, CERULOP #### [facility] , Cholesterol.total/Chol esterol in HDL [Mass ratio] 4.4 {ratio} Normal <5.[address] [facility] Comment on above: Order Comment: Reaso n for Exam Right upper quadrant abdominal pain Result Comment: PERF ORMED BY: [place] [address] PATHOLOGIST ATHLETICS TEACHER HILARIA REES M.D. Performed By: #### H EPATIC, CBC, KEYLA, PT, LIPID, FE and TIBC, NATHALY, LIPASE #### [address] #### HBSAG, HCV RX PCR, CARSON CHOICE, SMAB, HBSAB, HBCAB, ALPHA PHEN, CERULOP #### [facility] , LDL Cholesterol,Calculated 131 mg/dL High 0-100 [facility] Comment on above: Order Comment: Reaso n for Exam Right upper quadrant abdominal pain Result Comment: LDL ATP III CLASSIFICATION LDL less than 100 mg/dL Optimal LDL 100-129 mg/dL Near or above optimal LDL 130-159 mg/dL Borderline high LDL 160-189 mg/dL High LDL greater than 189 mg/dL Very high Performed By: #### H EPATIC, CBC, KEYLA, PT, LIPID, FE and TIBC, NATHALY, LIPASE #### [address] #### HBSAG, HCV RX PCR, CARSON CHOICE, SMAB, HBSAB, HBCAB, ALPHA PHEN, CERULOP #### [facility] , Triglyceride w/Reflex 189 mg/dL High 0-[address] [facility] Comment on above: Order Comment: Reaso n for Exam Right upper quadrant abdominal pain Result Comment: TRIG ATP III CLASSIFICATION TRIG less than 150 mg/dL Normal TRIG 150-199 mg/dL Borderline high TRIG 200-500 mg/dL High TRIG greater than 500 mg/dL Very high Standard traceable to the Center for Disease Conrtrol and Prevention (CDC) test method. Performed By: #### H EPATIC, CBC, KEYLA, PT, LIPID, FE and TIBC, NATHALY, LIPASE #### [place] [address] [place] #### HBSAG, HCV RX PCR, CARSON CHOICE, SMAB, HBSAB, HBCAB, ALPHA PHEN, CERULOP #### [facility] , VLDL CHOLESTEROL 37 mg/dL Normal [facility] Comment on above: Order Comment: Reaso n for Exam Right upper quadrant abdominal pain Performed By: #### H EPATIC, CBC, KEYLA, PT, LIPID, FE and TIBC, NATHALY, LIPASE #### [address] [place] [address] [facility] #### HBSAG, HCV RX PCR, CARSON CHOICE, SMAB, HBSAB, HBCAB, ALPHA PHEN, CERULOP #### [facility] , Lymphocytes Auto (Bld) [#/Vo l]Ordered By: Mark Gramajo on 12-04-2022 Lymphocytes (Bld) [#/Vol] 2.8 10*3/uL 1.00-4.8 Lymphocytes/100 WBC Auto (Bl d)Ordered By: Mark Gramajo on 12-04-2022 Lymphocytes/100 WBC (Bld) 22.5 % . MCH Auto (RBC) [Entitic mass ]Ordered By: Mark Gramajo on 12-04-2022 MCH (RBC) [Entitic mass] 28.7 pg 24.7-34.3 MCHC Auto (RBC) [Mass/Vol]Or dered By: Mark Gramajo on 12-04-2022 MCHC (RBC) [Mass/Vol] 33.2 g/dL 32.0-35.0 [facility] MCV Auto (RBC) [Entitic vol] Ordered By: Mark Gramajo on 12-04-2022 MCV (RBC) [Entitic vol] 86.4 fL 80-100 Monocytes Auto (Bld) [#/Vol] Ordered By: Mark Gramajo on 12-04-2022 Monocytes (Bld) [#/Vol] 0.8 10*3/uL 0.0-0.8 Monocytes/100 WBC Auto (Bld) Ordered By: Mark Gramajo on 12-04-2022 Monocytes/100 WBC (Bld) 6.7 % . Neutrophils Auto (Bld) [#/Vo l]Ordered By: Mark Gramajo on 12-04-2022 Neutrophils (Bld) [#/Vol] 8.4 10*3/uL 1.8-7.7 Neutrophils/100 WBC Auto (Bl d)Ordered By: Mark Gramajo on 12-04-2022 Neutrophils/100 WBC (Bld) 67.9 % . No Panel InformationOrdered By: Mark Gramajo on 12-04-2022 Hepatitis B Core Total Antibody Negative Negative Comment on above: Performed at: [address] [id number] Director: Iftikhar Romero PhD, Phone: [phone] Hepatitis C RNA Quantitative N/A Nucleated erythrocytes [Pres ence] in Blood by Automated countOrdered By: Mark Gramajo on 12-04-2022 Nucleated RBC Auto Ql (Bld) 0.0 /100{WBC} 0-0.5 Platelet mean volume Auto (B ld) [Entitic vol]Ordered By: Mark Gramajo on 12-04-2022 Platelet mean volume (Bld) [Entitic vol] 7.7 fL 6.3-10.7 Platelets Auto (Bld) [#/Vol] Ordered By: Mark Gramajo on 12-04-2022 Platelets (Bld) [#/Vol] 303 10*3/uL 150-450 Protein [Mass/volume] in Ser um or PlasmaOrdered By: Mark Gramajo on 12-04-2022 Protein [Mass/Vol] 7.0 g/dL 6.4-8.9 [facility] Prothrombin Time INRon 12-04 INR Coag (PPP) [Relative time] 1.0 {INR} Normal [facility] Comment on above: Order Comment: Reaso n for Exam Right upper quadrant abdominal pain Result Comment: INR Therapeutic Range A) Pre- and Peroperative OAT started two weeks before surgery. NOT HIP SURGERY: 1.5 - 2.5 HIP SURGERY: 2 - 3 B) Primary and secondary prevention of venous THROMBOSIS: 2 - 3 C) Active venous thrombosis, pulmonary embolism and prevention of recurrent venous thrombosis: 2 - 3 D) Prevention of arterial thromboembolism including patients with mechanical heart valves: 3 - 4.5 PERFORMED BY: [address] [address] PATHOLOGIST ATHLETICS TEACHER HILARIA REES M.D. Performed By: #### H EPATIC, CBC, KEYLA, PT, LIPID, FE and TIBC, NATHALY, LIPASE #### [facility] [address] [place] [id number] [facility] #### HBSAG, HCV RX PCR, CARSON CHOICE, SMAB, HBSAB, HBCAB, ALPHA PHEN, CERULOP #### [facility] , PT Coag (PPP) [Time] 11.3 s Normal 9.0-12.[address] [facility] Comment on above: Order Comment: Reaso n for Exam Right upper quadrant abdominal pain Performed By: #### H EPATIC, CBC, KEYLA, PT, LIPID, FE and TIBC, NATHALY, LIPASE #### [facility] [address] [place] [address] [place] #### HBSAG, HCV RX PCR, CARSON CHOICE, SMAB, HBSAB, HBCAB, ALPHA PHEN, CERULOP #### [facility] , RBC Auto (Bld) [#/Vol]Ordere d By: Mark Gramajo on 12-04-2022 RBC (Bld) [#/Vol] 4.79 10*6/uL 3.60-5.00 [facility] Serum hepatitis B virus surf yessy antibody detectionOrdered By: Mark Gramajo on 12-04-2022 HBV surface Ab Ql (S) Non-Reactive . [facility] Comment on above: Non Reactive: Incons istent with immunity, less than 10 mIU/mL Reactive: Consistent with immunity, greater than 9.9 mIU/mL Serum or plasma albumin/glob ulin mass ratioOrdered By: Mark Gramajo on 12-04-2022 Albumin/Globulin [Mass ratio] 1.3 {ratio} Serum or plasma ceruloplasmi n measurement (mass/volume)Ordered By: Mark Gramajo on 12-04-2022 Ceruloplasmin [Mass/Vol] 33.7 mg/dL 19.0-39.0 Comment on above: Performed at: [address] [id number] Director: Iftikhar Romero PhD, Phone: [phone] Serum or plasma free cefurox jocy measurement (mass/volume)Ordered By: Mark Gramajo on 12-04-2022 Cefuroxime free [Mass/Vol] Negative Negative Comment on above: Performed at: - [facility] [address] [id number] Director: Iftikhar Romero PhD, Phone: [phone] Serum or plasma high density lipoprotein (HDL) cholesterol measurementOrdered By: Mark Gramajo on 12-04-2022 Cholesterol in HDL [Mass/Vol] 50 mg/dL 23-92 Comment on above: HDL CHOL ATP-III CLA SSIFICATION Cardiovascular RiskHDL > or equal to 60 mg/dL LOWHDL < 40 mg/dL HIGH Serum or plasma non-glucuron idated bilirubin measurement (mass/volume)Ordered By: Mark Gramajo on 12-04-2022 Bilirubin.indirect [Mass/Vol] 0.3 mg/dL Serum or plasma total choles terol/high density lipoprotein (HDL) cholesterol mass ratOrdered By: Mark Gramajo on 12-04-2022 Cholesterol.total/Chol esterol in HDL [Mass ratio] 4.4 {ratio} <5.0 Smooth Muscle Antibodyon Smooth Muscle Antibody 6 Normal 0-[address] [facility] Comment on above: Order Comment: Reaso n for Exam Right upper quadrant abdominal pain Result Comment: Nega tive 0 - 19 Weak positive 20 - 30 Moderate to strong positive >30 Actin Antibodies are found in 52-85% of patients with autoimmune hepatitis or chronic active hepatitis and in 22% of patients with primary biliary cirrhosis. PERFORMED BY: [place] [address] PATHOLOGIST ATHLETICS TEACHER HILARIA REES M.D. Performed By: #### H EPATIC, CBC, KEYLA, PT, LIPID, FE and TIBC, NATHALY, LIPASE #### [facility] [address] [place] [address] [place] #### HBSAG, HCV RX PCR, CARSON CHOICE, SMAB, HBSAB, HBCAB, ALPHA PHEN, CERULOP #### [facility] , Transferrin [Mass/volume] in Serum or PlasmaOrdered By: Mark Gramajo on 12-04-2022 Transferrin [Mass/Vol] 260 mg/dL 203-362 [facility] Triglyceride [Mass/volume] i n Serum or PlasmaOrdered By: Mark Gramajo on 12-04-2022 Triglyceride [Mass/Vol] 189 mg/dL 0-149 Comment on above: TRIG ATP III CLASSIF ICATIONTRIG less than 150 mg/dL NormalTRIG 150-199 mg/dL Borderline highTRIG 200-500 mg/dL High TRIG greater than 500 mg/dL Very highStandard traceable to the Center for Disease Conrtrol and Prevention (CDC) test method. US liveron 12-04-2022 liver [facility] [place] [address] [place] [address] Ultrasound Report Signed Patient: Tasha Paul MR#: [id number] : 1975 Acct:[id number] Age/Sex: 47 / F ADM Date: 12/04/22 Loc: Room: Type: [facility] Attending Dr: Mark Gramajo [employer] PATTERN[employer]KER Ordering Provider: Mark Gramajo APRN Date of Service: 12/04/22 US/US liver: Constipation, unspecified constipation type Copies to: Mark Gramajo APRN Liver ultrasound HISTORY: Generalized abdominal pain. Nausea. COMPARISON: None Negative ultrasound Silva's sign reported. COMMON BILE DUCT: Normal caliber. No intraluminal abnormality. LIVER CONTOUR: Normal. LIVER PARENCHYMA: Hepatic steatosis HEPATIC LESION: None INTRAHEPATIC BILIARY DUCTAL DILATATION No ductal dilatation identified. GALLSTONES: No shadowing gallstones. GALLBLADDER SLUDGE: No gallbladder sludge. GALLBLADDER WALL: Normal thickness PERICHOLECYSTIC FLUID: None Pancreas: Unremarkable PORTAL VEIN: Normal blood flow. Liver size: Normal No RIGHT hydronephrosis identified. US/US liver IMPRESSION: Hepatic steatosis. Unremarkable gallbladder. No biliary duct dilatation. Impression dictated by: Phu Jamil M.D.12/04/2022 2:47 PM Dictation Location: [place] [address] Tech: Bhargavi Vázquezarmani Transcribed By: FLORENTINO 12/04/22 1447 Dictated By: Phu Jamil DO 12/04/22 1446 Signed By: 12/04/[address] [facility] WBC Auto (Bld) [#/Vol]Ordere d By: Mark Gramajo on 12-04-2022 WBC (Bld) [#/Vol] 12.3 10*3/uL 3.8-11.6 [facility] Glucose - FINGER STICKon Glucose [Mass/Vol] 197 mg/dL [facility] [employer] Other A1C HEMOGLOBINon 08-30-2022 HbA1c (Bld) [Mass fraction] 7.4 % [facility] [employer] Other Glucose - FINGER STICKon Glucose [Mass/Vol] 144 mg/dL [facility] [employer] Other HbA1c (Bld) [Mass fraction]o n 08-30-2022 A1C HEMOGLOBIN [facility] [employer] Other US SINGLE QUAD RT UPPERon US SINGLE QUAD RT UPPER EXAMINATION: US SINGLE QUAD RT UPPER HISTORY: Right upper quadrant pain COMPARISON: CT abdomen pelvis 08/07/2022 TECHNIQUE: Transabdominal evaluation of the right upper quadrant. FINDINGS: LIVER: Fatty infiltration. Color Doppler demonstrates patent hepatic veins. PORTAL VEIN: Duplex Doppler demonstrates normal hepatopetal flow pattern with flow velocity averaging 25 cm/s. GALLBLADDER: No visible gallstones, wall thickening, or pericholecystic free fluid. Negative sonographic Silva's sign. BILIARY: Dilated, 7 mm. PANCREASE: No visible mass, abnormal atrophy, or duct dilation. KIDNEY: No hydronephrosis. No visible mass or stones. Size: 11.8 x 6.3 x 4.2 cm IMPRESSION: 1. Fatty infiltration of liver. 2. Minimally dilated common bile duct without appreciable stones or mass; nonspecific. 3. Normal appearance of gallbladder. Electronically authenticated by: VALERIANO SINCLAIR Date: 2022-08-11 11:38 Normal [facility] ACETONE SERUMon 08-07-2022 ACETONE Negative Normal NEGATIVE [facility] Comment on above: Performed By: #### A CETON #### [facility] [address] [place] [address] Dr. Annabelle Kilgore CBC AUTO DIFFon 08-07-2022 BASO # 0.1 103/ul Normal 0.0-0.1 [facility] Comment on above: Performed By: #### C BC #### [facility] [address] [place] [address] [address] Annabelle Kilgore Basophils/100 WBC (Bld) 0.7 % Normal 0.2-2.0 [facility] Comment on above: Performed By: #### C BC #### [facility] [address] [place] [address] [address] Annabelle Kilgore EO # 0.1 103/ul Normal 0.0-0.7 [facility] Comment on above: Performed By: #### C BC #### [facility] [address] [place] [address] [address] Annabelle Kilgore Eosinophils/100 WBC (Bld) 0.7 % Critically low 0.9-7.0 [facility] Comment on above: Performed By: #### C BC #### [facility] [address] [place] [address] Dr. Annabelle Kilgore Erythrocyte distribution width (RBC) [Ratio] 12.7 % Normal 11.0-15.0 [facility] Comment on above: Performed By: #### C BC #### [facility] [address] [place] [address] [address] Annabelle Kilgore Hematocrit (Bld) [Volume fraction] 38.9 % Normal 36.0-48.0 [facility] Comment on above: Performed By: #### C BC #### [facility] [address] [place] [address] [address] Annabelle Kilgore Hemoglobin (Bld) [Mass/Vol] 13.4 g/dL Normal 12.0-16.0 [facility] Comment on above: Performed By: #### C BC #### [facility] [address] [place] [address] [address] Annabelle Kilgore IG # 0.05 10e3/ul Critically high 0.00-0.03 [facility] Comment on above: Performed By: #### C BC #### [facility] [address] [place] [address] [address] Annabelle Kilgore IG % 0.4 % Normal 0.0-0.5 [facility] Comment on above: Performed By: #### C BC #### [facility] [address] [place] [address] [address] Annabelle Kilgore LYMPH # 3.5 103/ul Normal 1.2-3.8 [facility] Comment on above: Performed By: #### C BC #### [facility] [address] [place] [address] Dr. Annabelle Kilgore Lymphocytes/100 WBC (Bld) 25.1 % Normal 20.5-60.0 [facility] Comment on above: Performed By: #### C BC #### [facility] [address] [place] [address] Dr. Annabelle Kilgore MANUAL DIFF REQ NO Normal [facility] Comment on above: Performed By: #### C BC #### [facility] [address] [place] [address] Dr. Annabelle Kilgore MCH (RBC) [Entitic mass] 29.5 pg Normal 26.7-34.0 [facility] Comment on above: Performed By: #### C BC #### [facility] [address] [place] [address] Dr. Annabelle Kilgore MCHC (RBC) [Mass/Vol] 34.4 g/dL Normal 29.9-35.2 [facility] Comment on above: Performed By: #### C BC #### [facility] [address] [place] [address] Dr. Annabelle Kilgore MCV (RBC) [Entitic vol] 85.7 fL Normal 81.0-99.0 [facility] Comment on above: Performed By: #### C BC #### [facility] [address] [place] [address] Dr. Annabelle Kilgore MONO # 1.1 103/ul Critically high 0.3-0.8 [facility] Comment on above: Performed By: #### C BC #### [facility] [address] [place] [address] Dr. Annabelle Kilgore Monocytes/100 WBC (Bld) 7.8 % Normal 1.7-12.0 [facility] Comment on above: Performed By: #### C BC #### [facility] [address] [place] [address] [address] Annabelle Kilgore NEUT # 9.2 103/ul Critically high 1.4-6.5 [facility] Comment on above: Performed By: #### C BC #### [facility] [address] [place] [address] [address] Annabelle Kilgore Neutrophils/100 WBC (Bld) 65.3 % Normal 43.0-75.0 [facility] Comment on above: Performed By: #### C BC #### [facility] [address] [place] [address] [address] Annabelle Kilgore Platelet mean volume (Bld) [Entitic vol] 9.8 fL Normal 9.5-13.5 [facility] Comment on above: Performed By: #### C BC #### [facility] [address] [place] [address] Dr. Annabelle Kilgore PLT 326 103/ul Normal 150-450 [facility] Comment on above: Performed By: #### C BC #### [facility] [address] [place] [address] Dr. Annabelle Kilgore RBC 4.54 106/ul Normal 4.20-5.40 [facility] Comment on above: Performed By: #### C BC #### [facility] [address] [place] [address] Dr. Annabelle Kilgore WBC 14.0 103/ul Critically high 4.0-11.0 [facility] Comment on above: Performed By: #### C BC #### [facility] [address] [place] [address] ABD/PELVIS WO CONon 08-07 CT ABD/PELVIS WO CON EXAMINATION: CT ABD/PELVIS WO CON, 08/07/2022 12:38 AM EDT HISTORY: UNSPECIFIED ABDOMINAL PAIN COMPARISON: CT abdomen and pelvis examination dated 08/22/2018. TECHNIQUE: CT scan of the abdomen and pelvis was performed without IV contrast. CT dose reduction technique was used, including Automated Exposure Control. FINDINGS: The visualized portions of the lung bases are clear. There is a partially imaged cystic structure adjacent to the distal esophagus measuring up to 1.7 x 1.4 cm (series 3, image 1). Abdomen: Please note that the sensitivity for detection of focal lesions or vascular disease is markedly reduced without intravenous contrast. Splenic calcifications are suggestive of prior granulomatous disease. The liver is enlarged measuring up to 17.3 cm the right midclavicular line. Otherwise, the liver and spleen are unremarkable. There is no intra or extrahepatic biliary duct dilatation. The gallbladder is unremarkable. There is stable nodular thickening of the left adrenal gland. The pancreas, right adrenal gland, kidneys, and bowel loops, including the appendix, are unremarkable. There is no mesenteric or retroperitoneal lymphadenopathy. Pelvis: The bladder demonstrates wall thickening. The rectum is unremarkable. There is no iliac or inguinal lymphadenopathy. The uterus is surgically absent. There is mild atherosclerotic disease. Bone windows show no aggressive osseous lesions. IMPRESSION: 1. No specific etiology identified to explain the patient's abdominal pain. 2. Stable nodular thickening of the left adrenal gland. 3. Normal appendix. 4. Status post hysterectomy. 5. Urinary bladder wall thickening. Please correlate with urinalysis for infection. 6. Hepatomegaly. 7. Partially imaged cystic structure adjacent to the distal esophagus which could represent a duplication cyst though other etiologies are not excluded. This could be further evaluated with a nonemergent patient CT of the chest if clinically indicated. Electronically authenticated by: Sharad PATEL Date: 2022-08-07 02:10 Normal [facility] ER URINE PROFILEon 3 Bilirubin Ql (U) SMALL Abnormal NEGATIVE [facility] Comment on above: Performed By: #### E RUR #### [facility] [address] [place] [address] Dr. Annabelle Kilgore Clarity (U) SL CLOUDY Abnormal CLEAR [facility] Comment on above: Performed By: #### E RUR #### [facility] [address] [address] [address] Annabelle Kilgore Color (U) LT. YELLOW Normal YELLOW [facility] Comment on above: Performed By: #### E RUR #### [facility] [address] [place] [address] Dr. Annabelle Kilgore ERUAHD A micrscopic examina tion will be performed if indicated. Normal [facility] Comment on above: Performed By: #### E RUR #### [facility] [address] [place] [address] Dr. Annabelle Kilgore Glucose Ql (U) Negative Normal NEGATIVE [facility] Comment on above: Performed By: #### E RUR #### [facility] [address] [place] [address] Dr. nAnabelle Kilgore Hemoglobin Ql (U) Negative Normal NEGATIVE [facility] Comment on above: Performed By: #### E RUR #### [facility] [address] [place] [address] Dr. Annabelle Kilgore Ketones Ql (U) 15 mg/dl Abnormal NEGATIVE [facility] Comment on above: Performed By: #### E RUR #### [facility] [address] [place] [address] Dr. Annabelle Kilgore LEUKOCYTES Negative Normal NEGATIVE [facility] Comment on above: Performed By: #### E RUR #### [facility] [address] [place] [address] Dr. Annabelle Kilgore Nitrite Ql (U) Negative Normal NEGATIVE [facility] Comment on above: Performed By: #### E RUR #### [facility] [address] [place] [address] Dr. Annabelle Kilgore pH (U) 5.5 [pH] Normal 5-9 [facility] Comment on above: Performed By: #### E RUR #### [facility] [address] [place] [address] Dr. Annabelle Kilgore SPEC GRAVITY 1.030 Abnormal 1.005-<=1. 025 [facility] Comment on above: Performed By: #### E RUR #### [facility] [address] [place] [address] Dr. Annabelle Kilgore UA PROTEIN Negative Normal NEGATIVE/ TRACE [facility] Comment on above: Performed By: #### E RUR #### [facility] [address] [place] [address] Dr. Annabelle Kilgore UR MICRO IND NOT INDICATED Normal [facility] Comment on above: Performed By: #### E RUR #### [facility] [address] [place] [address] Dr. Annabelle Kilgore Urobilinogen Qn (U) 0.2 {Floyd'U}/dL Normal 0.2 - 1. 0 [facility] Comment on above: Performed By: #### E RUR #### [facility] [address] [address] [address] Annabelle Kilgore LACTATE/LACTIC ACIDon 2022 Lactate [Moles/Vol] 1.1 mmol/L Normal 0.4-2.0 [facility] Comment on above: Performed By: #### L ACT #### [facility] [address] [place] [address] Dr. Annabelle Kilgore LIPASEon 08-07-2022 Lipase [Catalytic activity/Vol] 37.0 U/L Critically low 73.0-393.0 [facility] Comment on above: Performed By: #### L IPA #### [facility] [address] [place] [address] Dr. Annabelle Kilgore PH VENOUS BLOODon 08-07-2022 PCO2 VENOUS 37.0 mmHg Critically low 40.0-52.0 [facility] Comment on above: Performed By: #### P HVEN ####[facility] [id number] [address]Dr. Annabelle Kilgore pH VENOUS 7.415 Normal 7.330-7.43 0 [facility] Comment on above: Performed By: #### P HVEN ####[facility] [address] [address]Dr. Annabelle Kilgore PROF 14(COMP METB)on 023 Albumin [Mass/Vol] 3.5 g/dL Normal 3.4-5.0 [facility] Comment on above: Performed By: #### C TONY CAPPS #### [facility] [address] [place] [address] Dr. Annabelle Kilgore Albumin/Globulin [Mass ratio] 0.9 {ratio} Normal [facility] Comment on above: Performed By: #### C BLU CAPPSOPN #### [facility] [address] [place] [address] Dr. Annabelle Kilgore ALP [Catalytic activity/Vol] 82 U/L Normal 46-116 [facility] Comment on above: Performed By: #### C GÉNESIS, HSTROPN #### [facility] [address] [place] [address] Dr. Annabelle Kilgore ALT [Catalytic activity/Vol] 35 U/L Normal 14-59 [facility] Comment on above: Performed By: #### C GÉNESIS, HSTROPN #### [facility] [address] [place] [address] Dr. Annabelle Kilgore Anion gap [Moles/Vol] 18.2 mmol/L Normal [facility] Comment on above: Performed By: #### C GÉNESIS, HSTROPN #### [facility] [address] [place] [address] Dr. Annabelle Kilgore AST [Catalytic activity/Vol] 21 U/L Normal 15-37 [facility] Comment on above: Performed By: #### C GÉNESIS, HSTROPN #### [facility] [address] [place] [address] Dr. Annabelle Kilgore Bilirubin [Mass/Vol] 0.5 mg/dL Normal 0.2-1.0 [facility] Comment on above: Performed By: #### C GÉNESIS, HSTROPN #### [facility] [address] [place] [address] Dr. Annabelle Kilgore Calcium [Mass/Vol] 9.2 mg/dL Normal 8.5-10.1 [facility] Comment on above: Performed By: #### C MP, HSTROPN #### [facility] [address] [place] [address] Dr. Annabelle Kilgore Chloride [Moles/Vol] 104 mmol/L Normal 98-107 [facility] Comment on above: Performed By: #### C GÉNESIS, HSTROPN #### [facility] [address] [place] [address] Dr. Annabelle Kilgore CO2 [Moles/Vol] 23.1 mmol/L Normal 21.0-32.0 [facility] Comment on above: Performed By: #### C MP, HSTROPN #### [facility] [address] [address] [address] Annabelle Kilgore Creatinine [Mass/Vol] 0.65 mg/dL Normal 0.55-1.02 [facility] Comment on above: Performed By: #### C MP, HSTROPN #### [facility] [address] [address] [address] Annabelle Kilgore EGFR-AF GUYANESE >60 Normal >=60 [facility] Comment on above: Performed By: #### C MP, HSTROPN #### [facility] [address] [address] [address] Annabelle Kilgore EGFR-NON AF GUYANESE >60 Normal >=60 [facility] Comment on above: Performed By: #### C MP, HSTROPN #### [facility] [address] [address] [address] Annabelle Kilgore Globulin (S) [Mass/Vol] 3.9 g/dL Normal [facility] Comment on above: Performed By: #### C MP, HSTROPN #### [facility] [address] [address] [address] Annabelle Kilgore Glucose [Mass/Vol] 122 mg/dL Critically high 74-106 [facility] Comment on above: Performed By: #### C MP, HSTROPN #### [facility] [address] [address] [address] Annabelle Kilgore Potassium [Moles/Vol] 3.3 mmol/L Critically low 3.5-5.1 [facility] Comment on above: Performed By: #### C MP, HSTROPN #### [facility] [address] [address] [address] Annabelle Kilgore Protein [Mass/Vol] 7.4 g/dL Normal 6.4-8.2 [facility] Comment on above: Performed By: #### C MP, HSTROPN #### [facility] [address] [address] [address] Annabelle Kilgore Sodium [Moles/Vol] 142 mmol/L Normal 136-145 [facility] Comment on above: Performed By: #### C MP, HSTROPN #### [facility] [address] [address] [address] Annabelle Kilgore Urea nitrogen [Mass/Vol] 15.0 mg/dL Normal 7.0-18.0 [facility] Comment on above: Performed By: #### C MP, HSTROPN #### [facility] [address] [address] [address] Annabelle Kilgore Urea nitrogen/Creatinine [Mass ratio] 23.1 mg/mg Normal [facility] Comment on above: Performed By: #### C MP, HSTROPN #### [facility] [address] [place] [address] Dr. Annabelle Kilgore TROPONIN, HIGH SENSITIVITYon 08-07-2022 HSTROP 30.1 pg/mL Normal 4.0-51.3 [facility] Comment on above: Result Comment: CUT- OFF POINTS HAVE BEEN ESTABLISHED BASED ON THE FOURTH UNIVERSAL DEFINITIONS OF MYOCARDIAL INFARCTION. THE UPPER REFERENCE LIMIT (URL) OF TROPONIN, DEFINED THE 99TH PERCENTILE OF cTnI DISTRIBUTION IN A REFERENCE POPULATION, HAS BEEN CONFIRMED THE DECISION THRESHOLD FOR [place] DIAGNOSIS. Performed By: #### C GÉNESIS, HSTROPN #### [facility] [address] [place] [address] Dr. Annabelle Kilgore MG MAMM SCREEN 3D HECTOR CADon 08-04-2022 MG MAMM SCREEN 3D HECTOR CAD Patient: TASHA PAUL Exam Date: 08/04/2022 : 1975 Gender:F Ordering : [facility] Admission #: [id number] Family : Order #: [id number] CLICK HERE TO VIEW EXAM RADIOLOGY REPORT PROCEDURE: MAMMOGRAM SCREENING 3D BILATERAL CAD COMPARISON: MG MAMM SCREEN HECTOR W CAD, 12/25/2017. INDICATIONS: Screening mammography Calculator Name NCI Breast Cancer Risk Assessment Tool 5 Year Breast Cancer Risk 1.40% Lifetime Breast Cancer Risk 12.70% Personal Breast Cancer No Personal Ovarian Cancer No Treatments hysterectomy, hector oopherectomy Family Cancers Mother with ovarian cancer at age 40; Aunt-maternal with ovarian cancer at age 35; Aunt-maternal with ovarian cancer at age 40. LOCATION: [facility] BREAST COMPOSITION: Scattered areas fibroglandular density. FINDINGS: DIAGNOSTIC CATEGORY 1--NEGATIVE. NO CHANGE FROM COMPARISON ASSESSMENT. RIGHT BREAST: No significant suspicious finding. LEFT BREAST: No significant suspicious finding. RECOMMENDATIONS: ROUTINE MAMMOGRAM AND CLINICAL EVALUATION IN 12 MONTHS. PLEASE NOTE: A NORMAL MAMMOGRAM DOES NOT EXCLUDE THE POSSIBILITY OF BREAST CANCER. A CLINICALLY SUSPICIOUS PALPABLE LUMP SHOULD BE BIOPSIED. Dictated by: Christopher Vega MD on 08/07/2022 at 10:03 Approved by: Christopher Vega MD on 08/07/2022 at 10:05 Normal [facility] Alanine aminotransferase [En zymatic activity/volume] in Serum or PlasmaOrdered By: Glenna Quinones on 07-19-2022 ALT [Catalytic activity/Vol] 25 U/L 7-52 Albumin [Mass/volume] in Ser um or Plasma by Bromocresol green (BCG) dye binding methoOrdered By: Glenna Quinones on 07-19-2022 Albumin BCG dye [Mass/Vol] 4.2 g/dL 3.5-5.7 Alkaline phosphatase [Enzyma tic activity/volume] in Serum or PlasmaOrdered By: Glenna Quinones on 07-19-2022 ALP [Catalytic activity/Vol] 84 U/L 34-104 Aspartate aminotransferase [ Enzymatic activity/volume] in Serum or PlasmaOrdered By: Glenna Quinones on 07-19-2022 AST [Catalytic activity/Vol] 17 U/L 13-39 Bilirubin.total [Mass/volume ] in Serum or PlasmaOrdered By: Glenna Quinones on 07-19-2022 Bilirubin [Mass/Vol] 0.6 mg/dL 0.3-1.[address] [facility] Calcium [Mass/volume] in Ser um or PlasmaOrdered By: Glenna Quinones on 07-19-2022 Calcium [Mass/Vol] 9.6 mg/dL 8.6-10.3 [facility] Carbon dioxide, total [Moles /volume] in Serum or PlasmaOrdered By: Glenna Quinones on 07-19-2022 CO2 [Moles/Vol] 26.4 mmol/L 21.0-31.0 [facility] Chloride [Moles/volume] in S cindy or PlasmaOrdered By: Glenna Quinones on 07-19-2022 Chloride [Moles/Vol] 102 mmol/L 98-[address] [facility] Cholesterol [Mass/volume] in Serum or PlasmaOrdered By: Glenna Quinones on 07-19-2022 Cholesterol [Mass/Vol] 144 mg/dL 140-200 [facility] Comment on above: Chol less than 200 m g/dl low riskChol 201-239 mg/dl borderline riskChol 240 mg/dl and greater high risk Cholesterol in LDL Calc [Mas s/Vol]Ordered By: Glenna Quinones on 07-19-2022 Cholesterol in LDL [Mass/Vol] 66 mg/dL 0-100 Comment on above: LDL ATP III CLASSIFI CATIONLDL less than 100 mg/dL OptimalLDL 100-129 mg/dL Near or above optimalLDL 130-159 mg/dL Borderline highLDL 160-189 mg/dL HighLDL greater than 189 mg/dL Very high Cholesterol in VLDL Calc [Ma ss/Vol]Ordered By: Glenna Quinones on 07-19-2022 Cholesterol in VLDL [Mass/Vol] 33 mg/dL Creatinine [Mass/volume] in Serum or PlasmaOrdered By: Glenna Quinones on 07-19-2022 Creatinine [Mass/Vol] 0.52 mg/dL 0.60-1.20 [facility] Creatinine [Mass/volume] in UrineOrdered By: Glenna Quinones on 07-19-2022 Creatinine (U) [Mass/Vol] 146.0 mg/dL Comment on above: No reference range e stablished Globulin Calc (S) [Mass/Vol] Ordered By: Glenna Quinones on 07-19-2022 Globulin (S) [Mass/Vol] 2.9 g/dL Glucose [Mass/volume] in Ser um or PlasmaOrdered By: Glenna Quinones on 07-19-2022 Glucose [Mass/Vol] 140 mg/dL 70-100 [facility] Comment on above: ADA recommended refe rence rangeRandom Glucose Reference Range is dependent on time and content of last meal. Glucose of more than 200 mg/dL in a nonstressed, ambulatory subject supports the diagnosis of Diabetes Mellitus. Microalbumin [Mass/volume] i n UrineOrdered By: Glenna Quinones on 07-19-2022 Albumin DL <= 20 mg/L (U) [Mass/Vol] 2.2 mg/dL 0.0-1.8 No Panel InformationOrdered By: Glenna Quinones on 07-19-2022 Estimated GFR (CKD-EPI) > 60.0 mL/Min Pharmacy Creatinine Clearance (Chem N/A Potassium [Moles/volume] in Serum or PlasmaOrdered By: Glenna Quinones on 07-19-2022 Potassium [Moles/Vol] 4.2 mmol/L 3.5-5.1 [facility] Protein [Mass/volume] in Ser um or PlasmaOrdered By: Glenna Quinones on 07-19-2022 Protein [Mass/Vol] 7.1 g/dL 6.4-8.9 [facility] Serum or plasma albumin/glob ulin mass ratioOrdered By: Glenna Quinones on 07-19-2022 Albumin/Globulin [Mass ratio] 1.4 {ratio} Serum or plasma anion gap de terminationOrdered By: Glenna Quinones on 07-19-2022 Anion gap [Moles/Vol] 15.8 mmol/L 6.0-15.0 [facility] Serum or plasma high density lipoprotein (HDL) cholesterol measurementOrdered By: Glenna Quinones on 07-19-2022 Cholesterol in HDL [Mass/Vol] 45 mg/dL 35-85 Comment on above: HDL CHOL ATP-III CLA SSIFICATION Cardiovascular RiskHDL > or equal to 60 mg/dL LOWHDL < 40 mg/dL HIGH Serum or plasma total choles terol/high density lipoprotein (HDL) cholesterol mass ratOrdered By: Glenna Quinones on 07-19-2022 Cholesterol.total/Chol esterol in HDL [Mass ratio] 3.2 {ratio} <5.0 Sodium [Moles/volume] in Ser um or PlasmaOrdered By: Glenna Quinones on 07-19-2022 Sodium [Moles/Vol] 140 mmol/L 136-145 [facility] Triglyceride [Mass/volume] i n Serum or PlasmaOrdered By: Glenna Quinones on 07-19-2022 Triglyceride [Mass/Vol] 167 mg/dL 0-149 Comment on above: TRIG ATP III CLASSIF ICATIONTRIG less than 150 mg/dL NormalTRIG 150-199 mg/dL Borderline highTRIG 200-500 mg/dL High TRIG greater than 500 mg/dL Very highStandard traceable to the Center for Disease Conrtrol and Prevention (CDC) test method. Urea nitrogen [Mass/volume] in Serum or PlasmaOrdered By: Glenna Quinones on 07-19-2022 Urea nitrogen [Mass/Vol] 15 mg/dL 7-25 Urine microalbumin/creatinin e mass ratioOrdered By: Glenna Quinones on 07-19-2022 Albumin/Creatinine DL <= 20 mg/L (U) [Mass ratio] 15.0 mg/g 0.0-30.0 Comment on above: 30-300 mg/g indicate s an increased risk for diabetic nephropathy. Greater than 300 mg/g is consistent with clinical nephropathy. (Am. J. Kidney Disease 1995, 25:107) Vitamin B12 ser/plasOrdered By: Glenna Quinones on 07-19-2022 Cobalamin (Vitamin B12) [Mass/Vol] 615 pg/mL 180-914 Vitamin D+Metabolites [Mass/ volume] in Serum or PlasmaOrdered By: Glenna Quinones on 07-19-2022 Vitamin D+Metabolites [Mass/Vol] 37.0 ng/mL 30-100 Comment on above: VITAMIN D STATUS 25( [place])VITAMIN D RANGE (ng/mL) Deficient <20 Insufficient 20 to <30Sufficient 30 to 100Reference: Eulalio DALE,Janny GARCIA, Zeus VALLE, et al. Evaluation,treatment, and prevention of vitamin D deficiency; an Endocrine Society clinical practice guideline. JCEM. 2010; 96(7):1911-30. Glucose - FINGER STICKon Glucose [Mass/Vol] 89 mg/dL [facility] Other A1C HEMOGLOBINon 09-27-2021 HbA1c (Bld) [Mass fraction] 8.5 % [facility] Other Glucose - FINGER STICKon Glucose [Mass/Vol] 157 mg/dL [facility] Other HbA1c (Bld) [Mass fraction]o n 09-27-2021 A1C HEMOGLOBIN [employer] Other Glucose - FINGER STICKon Glucose [Mass/Vol] 272 mg/dL [facility] Other Glucose - FINGER STICKon Glucose [Mass/Vol] 378 mg/dL [facility] Other A1C HEMOGLOBINon 04-11-2021 HbA1c (Bld) [Mass fraction] 9.3 % [facility] Other Glucose - FINGER STICKon Glucose [Mass/Vol] 252 mg/dL [facility] Other HbA1c (Bld) [Mass fraction]o n 04-11-2021 A1C HEMOGLOBIN [employer] Other Albumin [Mass/volume] in Ser um or Plasmaon 04-28-2020 Albumin [Mass/Vol] 3.5 g/dL 3.2-5.5 [facility] Cholesterol [Mass/volume] in Serum or Plasmaon 04-28-2020 Cholesterol [Mass/Vol] 261 mg/dL 140-200 [facility] Comment on above: Chol less than 200 m g/dl low riskChol 201-239 mg/dl borderline riskChol 240 mg/dl and greater high risk Cholesterol in LDL Calc [Mas s/Vol]on 04-28-2020 Cholesterol in LDL [Mass/Vol] [facility] Comment on above: Test not performed Cholesterol in VLDL Calc [Ma ss/Vol]on 04-28-2020 Cholesterol in VLDL [Mass/Vol] [facility] Comment on above: Test not performed Creatinine [Mass/volume] in Urineon 04-28-2020 Creatinine (U) [Mass/Vol] 52.4 mg/dL Comment on above: No reference range e stablished Creatinine and Glomerular fi ltration rate.predicted panel (S/P/Bld)on 04-28-2020 Creatinine [Mass/Vol] 0.63 mg/dL 0.44-1.03 [facility] Estimated glomerular filtrat ion rate (GFR) non- Americanon 04-28-2020 GFR/1.73 sq M.predicted among non-blacks MDRD (S/P/Bld) [Vol rate/Area] mL/min/{1.73_m2} Globulin Calc (S) [Mass/Vol] on 04-28-2020 Globulin (S) [Mass/Vol] 2.7 g/dL Laboratory - Chemistry and C hemistry - challengeon 04-28-2020 Cobalamin (Vitamin B12) [Mass/Vol] 247 pg/mL 180-914 GFR/1.73 sq M.predicted MDRD (S/P/Bld) [Vol rate/Area] mL/min/{1.73_m2} Comment on above: GFR estimated refere nce range: According to KDOQI guidelines, <60 ml/min/1.73m2 is sufficient to diagnose a patient with chronic kidney disease. No Panel Informationon 04-28 25-Hydroxy Vitamin D Total 20.1 ng/mL 30-100 Comment on above: VITAMIN D STATUS 25( [place])VITAMIN D RANGE (ng/mL) Deficient <20 Insufficient 20 to <30Sufficient 30 to 100Reference: Eulalio MF,Janny NC, Zeus VALLE, et al. Evaluation,treatment, and prevention of vitamin D deficiency; an Endocrine Society clinical practice guideline. JCEM. 2010; 96(7):1911-30. Pharmacy Creatinine Clearance (Chem N/A Protein [Mass/volume] in Ser um or Plasmaon 04-28-2020 Protein [Mass/Vol] 6.2 g/dL 6.1-7.9 [facility] Serum or plasma alanine mcdaniel otransferase measurement without P-5'-P (enzymatic activion 04-28-2020 ALT No additional P-5'-P [Catalytic activity/Vol] 21 U/L 10-60 Serum or plasma albumin/glob ulin mass ratioon 04-28-2020 Albumin/Globulin [Mass ratio] 1.3 {ratio} Serum or plasma alkaline maya sphatase measurement (enzymatic activity/volume)on 04-28-2020 ALP [Catalytic activity/Vol] 86 U/L 32-92 Serum or plasma aspartate am inotransferase measurement (enzymatic activity/volume)on 04-28-2020 AST [Catalytic activity/Vol] 19 U/L 10-42 Serum or plasma calcium mallory urement (mass/volume)on 04-28-2020 Calcium [Mass/Vol] 9.1 mg/dL 8.2-10.2 [facility] Serum or plasma chloride grzegorz surement (moles/volume)on 04-28-2020 Chloride [Moles/Vol] 103 mmol/L 95-[address] [facility] Serum or plasma cholesterol in LDL measurement (mass/volume)on 04-28-2020 Cholesterol in LDL [Mass/Vol] 148 mg/dL 0-100 Comment on above: LDL ATP III CLASSIFI CATIONLDL less than 100 mg/dL OptimalLDL 100-129 mg/dL Near or above optimalLDL 130-159 mg/dL Borderline highLDL 160-189 mg/dL HighLDL greater than 189 mg/dL Very high Serum or plasma glucose mallory urement (mass/volume)on 04-28-2020 Glucose [Mass/Vol] 90 mg/dL 70-100 [facility] Comment on above: ADA recommended refe rence rangeRandom Glucose Reference Range is dependent on time and content of last meal. Glucose of more than 200 mg/dL in a nonstressed, ambulatory subject supports the diagnosis of Diabetes Mellitus. Serum or plasma high density lipoprotein (HDL) cholesterol measurementon 04-28-2020 Cholesterol in HDL [Mass/Vol] 56 mg/dL 35-85 Comment on above: HDL CHOL ATP-III CLA SSIFICATION Cardiovascular RiskHDL > or equal to 60 mg/dL LOWHDL < 40 mg/dL HIGH Serum or plasma potassium me asurement (moles/volume)on 04-28-2020 Potassium [Moles/Vol] 4.3 mmol/L 3.5-5.1 [facility] Serum or plasma sodium measu rement (moles/volume)on 04-28-2020 Sodium [Moles/Vol] 137 mmol/L 136-146 [facility] Serum or plasma total biliru bin measurement (mass/volume)on 04-28-2020 Bilirubin [Mass/Vol] 0.5 mg/dL 0.3-1.[address] [facility] Serum or plasma total carbon dioxide measurement (moles/volume)on 04-28-2020 CO2 [Moles/Vol] 24.8 mmol/L 22.0-30.0 [facility] Serum or plasma total choles terol/high density lipoprotein (HDL) cholesterol mass felix 04-28-2020 Cholesterol.total/Chol esterol in HDL [Mass ratio] 4.7 {ratio} <5.0 Serum or plasma urea nitroge n measurement (mass/volume)on 04-28-2020 Urea nitrogen [Mass/Vol] 12 mg/dL 9-23 Triglyceride [Mass/volume] i n Serum or Plasmaon 04-28-2020 Triglyceride [Mass/Vol] 418 mg/dL 35-149 Comment on above: If the triglyceride result is greater than 400, LDLC and related calculations cannot be calculated and resulted.TRIG ATP III CLASSIFICATIONTRIG less than 150 mg/dL NormalTRIG 150-199 mg/dL Borderline highTRIG 200-500 mg/dL High TRIG greater than 500 mg/dL Very highStandard traceable to the Center for Disease Conrtrol and Prevention (CDC) test method. Urine microalbumin measureme nt with detection limit of 20 mg/L or less (mass/volume)on 04-28-2020 Albumin DL <= 20 mg/L (U) [Mass/Vol] 0.5 mg/dL 0.0-1.8 Urine microalbumin/creatinin e mass ratioon 04-28-2020 Albumin/Creatinine DL <= 20 mg/L (U) [Mass ratio] 9.0 mg/g 0.0-30.0 Comment on above: 30-300 mg/g indicate s an increased risk for diabetic nephropathy. Greater than 300 mg/g is consistent with clinical nephropathy. (Am. J. Kidney Disease 1995, 25:107) No Panel Information [facility] Vital Signs Date Time Vital Sign Value Performing Clinician Facility 11-26-2023 14:030400 Body height 165.1 cm [facility] 11-26-2023 14:030400 Body mass index (BMI) [Ratio] 45.9 kg/m2 11-26-2023 14:03040 Body weight 125.19 kg [facility] 11-26-2023 14:03-0400 Diastolic blood pressure 84 mm[Hg] 11-26-2023 14:030400 Heart rate 112 /min [facility] 11-26-2023 14:030400 Respiratory rate 18 /min [facility] 11-26-2023 14:03-0400 SaO2% (BldA) [Mass fraction] 96 % 11-26-2023 14:03-0400 Systolic blood pressure 139 mm[Hg] 10-11-2023 13:30-0400 Body height 165.1 cm Sonya Mejia Work Phone: 10-11-2023 13:30-0400 Body mass index (BMI) [Ratio] 44.4 kg/m2 Sonya Mejia Work Phone: 10-11-2023 13:30-0400 Body weight 121.1 kg Sonya LaoMandic Work Phone: 08-21-2023 12:54-0400 Body height 165.1 cm [facility] Work Phone: 08-21-2023 12:54-0400 Body mass index (BMI) [Ratio] 44.6 kg/m2 Services [facility] Work Phone: 08-21-2023 12:54-0400 Body weight 121.56 kg [facility] Work Phone: 08-21-2023 12:54-0400 Diastolic blood pressure 82 mm[Hg] Services [facility] Work Phone: 08-21-2023 12:54-0400 Heart rate 121 /min [facility] Work Phone: 08-21-2023 12:54-0400 Respiratory rate 20 /min [facility] Work Phone: 08-21-2023 12:54-0400 SaO2% (BldA) [Mass fraction] 95 % [facility] Work Phone: 08-21-2023 12:54-0400 Systolic blood pressure 138 mm[Hg] Services [facility] Work Phone: 06-07-2023 17:03-0500 Body height 167.6 cm Sonya Mejia [employer] Work Phone: [facility] 06-07-2023 17:03-0500 Body mass index (BMI) [Ratio] 42.74 kg/m2 Sonyaluiz Mejia [employer] Work Phone: [facility] 06-07-2023 17:03-0500 Body temperature 97.59 [degF] Sonya Mejia [employer] MA[employer]GER Work Phone: [facility] 06-07-2023 17:03-0500 Body weight 120.11 kg Sonyaluiz Mejia [employer] MANAGER Work Phone: [facility] 06-07-2023 17:03-0500 Diastolic blood pressure 80 mm[Hg] Sonya Jackie [employer] MA[employer]GER Work Phone: [facility] 06-07-2023 17:03-0500 Heart rate 109 /min Sonya Jackie [employer] PRO[employer] MANAGER Work Phone: [facility] 06-07-2023 17:03-0500 Respiratory rate 19 /min Sonya Jackie [employer] MA[employer] Work Phone: [facility] 06-07-2023 17:03-0500 SaO2% (BldA) [Mass fraction] 98 % Sonya Mejia [employer] MANAGER Work Phone: [facility] 06-07-2023 17:03-0500 Systolic blood pressure 122 mm[Hg] Sonya Mejia [employer] MANA[employer] Work Phone: [facility] 02-19-2023 14:00-0400 Body height 165.1 cm Glenna Scally Other [facility] Other 02-19-2023 14:00-0400 Body mass index (BMI) [Ratio] 42.76 kg/m2 Glenna Scally Other [facility] Other 02-19-2023 14:00-0400 Body weight 116.58 kg Glenna Scally Other [facility] Other 02-19-2023 14:00-0400 Diastolic blood pressure 76 mm[Hg] Glenna Scally Other [facility] Other 02-19-2023 14:00-0400 Respiratory rate 18 /min Glenna Scally Other [facility] Other 02-19-2023 14:00-0400 SaO2% (BldA) [Mass fraction] 96 % Glenna Scally Other [facility] Other 02-19-2023 14:00-0400 Systolic blood pressure 127 mm[Hg] Glenna Scally Other [facility] Other 01-16-2023 13:00-0400 Body height 165.1 cm Glenna Scally Other [facility] Other 01-16-2023 13:00-0400 Body mass index (BMI) [Ratio] 40.63 kg/m2 Glenna Scally Other [facility] Other 01-16-2023 13:00-0400 Body weight 110.77 kg Glenna Scally Other [facility] Other 11-21-2022 13:00-0400 Body height 165.1 cm Glenna Scally Other [facility] Other 11-21-2022 13:00-0400 Body mass index (BMI) [Ratio] 41.36 kg/m2 Glenna Scally Other [facility] Other 11-21-2022 13:00-0400 Body weight 112.76 kg Glenna Scally Other [facility] Other 11-21-2022 13:00-0400 Diastolic blood pressure 93 mm[Hg] Glenna Scally Other [facility] Other 11-21-2022 13:00-0400 Respiratory rate 18 /min Glnena Scally Other [facility] Other 11-21-2022 13:00-0400 SaO2% (BldA) [Mass fraction] 98 % Glenna Scally Other [facility] Other 11-21-2022 13:00-0400 Systolic blood pressure 137 mm[Hg] Glenna Scally Other [facility] Other 11-20-2022 15:00-0400 Body height 165.1 cm Mark Scovanner Other [facility] Other 11-20-2022 15:00-0400 Body mass index (BMI) [Ratio] 41.05 kg/m2 Mark Scovanner Other [facility] Other 11-20-2022 15:00-0400 Body weight 111.9 kg Mark Scovanner Other [facility] Other 11-20-2022 15:00-0400 Diastolic blood pressure 89 mm[Hg] Mark Scovanner Other [facility] Other 11-20-2022 15:00-0400 Systolic blood pressure 133 mm[Hg] Mark Scovanner Other [facility] Other 10-17-2022 11:00-0400 Body height 165.1 cm Glenna Scally Other [facility] Other 10-17-2022 11:00-0400 Body mass index (BMI) [Ratio] 41.76 kg/m2 Glenna Scally Other [facility] Other 10-17-2022 11:00-0400 Body weight 113.85 kg Glenna Scally Other [facility] Other 08-30-2022 14:00-0400 Body height 165.1 cm Glenna Scally Other [facility] Other 08-30-2022 14:00-0400 Body mass index (BMI) [Ratio] 42.25 kg/m2 Glenna Scally Other [facility] Other 08-30-2022 14:00-0400 Body weight 115.17 kg Glenna Scally Other [facility] Other 08-30-2022 14:00-0400 Diastolic blood pressure 88 mm[Hg] Glenna Scally Other [facility] Other 08-30-2022 14:00-0400 Respiratory rate 18 /min Glenna Scally Other [facility] Other 08-30-2022 14:00-0400 SaO2% (BldA) [Mass fraction] 96 % Glenna Scally Other [facility] Other 08-30-2022 14:00-0400 Systolic blood pressure 136 mm[Hg] Glenna Scally Other [facility] Other 07-19-2022 14:00-0400 Body height 165.1 cm Glenna Scally Other [facility] Other 07-19-2022 14:00-0400 Body mass index (BMI) [Ratio] 42.1 kg/m2 Glenna Scally Other [facility] Other 07-19-2022 14:00-0400 Body weight 114.76 kg Glenna Scally Other [facility] Other 04-26-2022 14:00-0500 Body height 165.1 cm Glenna Scally Other [facility] Other 04-26-2022 14:00-0500 Body mass index (BMI) [Ratio] 42.3 kg/m2 Glenna Scally Other [facility] Other 04-26-2022 14:00-0500 Body weight 115.31 kg Glenna Scally Other [facility] Other 03-14-2022 14:00-0500 Body height 165.1 cm Glenna Scally Other [facility] Other 03-14-2022 14:00-0500 Body mass index (BMI) [Ratio] 43.13 kg/m2 Glenna Scally Other [facility] Other 03-14-2022 14:00-0500 Body weight 117.57 kg Glenna Scally Other [facility] Other 02-16-2022 14:00-0400 Body height 165.1 cm Glenna Scally Other [facility] Other 02-16-2022 14:00-0400 Body mass index (BMI) [Ratio] 41.18 kg/m2 Glenna Scally Other [facility] Other 02-16-2022 14:00-0400 Body weight 112.27 kg Glenna Scally Other [facility] Other 02-16-2022 14:00-0400 Diastolic blood pressure 99 mm[Hg] Glenna Scally Other [facility] Other 02-16-2022 14:00-0400 Respiratory rate 18 /min Glenna Scally Other [facility] Other 02-16-2022 14:00-0400 SaO2% (BldA) [Mass fraction] 97 % Glenna Scally Other [facility] Other 02-16-2022 14:00-0400 Systolic blood pressure 141 mm[Hg] Glenna Scally Other [facility] Other 09-27-2021 14:00-0400 Body height 165.1 cm Glenna Scally Other [facility] Other 09-27-2021 14:00-0400 Body mass index (BMI) [Ratio] 42.01 kg/m2 Glenna Scally Other [facility] Other 09-27-2021 14:00-0400 Body weight 114.53 kg Glenna Scally Other [facility] Other 09-27-2021 14:00-0400 Diastolic blood pressure 90 mm[Hg] Glenna Scally Other [facility] Other 09-27-2021 14:00-0400 Respiratory rate 18 /min Glenna Scally Other [facility] Other 09-27-2021 14:00-0400 SaO2% (BldA) [Mass fraction] 96 % Glenna Scally Other [facility] Other 09-27-2021 14:00-0400 Systolic blood pressure 120 mm[Hg] Glenna Scally Other [facility] Other 08-17-2021 14:00-0400 Body height 165.1 cm Glenna Scally Other [facility] Other 08-17-2021 14:00-0400 Body mass index (BMI) [Ratio] 41.73 kg/m2 Glenna Scally Other [facility] Other 08-17-2021 14:00-0400 Body weight 113.76 kg Glenna Scally Other [facility] Other 08-02-2021 15:00-0400 Body height 165.1 cm Glenna Scally Other [facility] Other 08-02-2021 15:00-0400 Body mass index (BMI) [Ratio] 42.9 kg/m2 Glenna Scally Other [facility] Other 08-02-2021 15:00-0400 Body weight 116.94 kg Glenna Scally Other [facility] Other 08-02-2021 15:00-0400 Diastolic blood pressure 91 mm[Hg] Glenna Scally Other [facility] Other 08-02-2021 15:00-0400 Respiratory rate 18 /min Glenna Scally Other [facility] Other 08-02-2021 15:00-0400 SaO2% (BldA) [Mass fraction] 98 % Glenna Scally Other [facility] Other 08-02-2021 15:00-0400 Systolic blood pressure 132 mm[Hg] Glenna Scally Other [facility] Other 07-05-2021 14:30-0400 Body height 165.1 cm Glenna Scally Other [facility] Other 07-05-2021 14:30-0400 Body mass index (BMI) [Ratio] 42.6 kg/m2 Glenna Scally Other [facility] Other 07-05-2021 14:30-0400 Body weight 116.12 kg Glenna Scally Other [facility] Other 07-05-2021 14:30-0400 Diastolic blood pressure 93 mm[Hg] Glenna Scally Other [facility] Other 07-05-2021 14:30-0400 Respiratory rate 20 /min Glenna Scally Other [facility] Other 07-05-2021 14:30-0400 SaO2% (BldA) [Mass fraction] 98 % Glenna Scally Other [facility] Other 07-05-2021 14:30-0400 Systolic blood pressure 133 mm[Hg] Glenna Scally Other [facility] Other 04-11-2021 15:30-0500 Body height 165.1 cm Glenna Scally Other [facility] Other 04-11-2021 15:30-0500 Body mass index (BMI) [Ratio] 42.43 kg/m2 Glenna Scally Other [facility] Other 04-11-2021 15:30-0500 Body weight 115.67 kg Glenna Scally Other [facility] Other 04-11-2021 15:30-0500 Diastolic blood pressure 92 mm[Hg] Glenna Scally Other [facility] Other 04-11-2021 15:30-0500 Respiratory rate 20 /min Glenna Katzly Other [facility] Other 04-11-2021 15:30-0500 SaO2% (BldA) [Mass fraction] 97 % Glenna Quinones Other [facility] Other 04-11-2021 15:30-0500 Systolic blood pressure 136 mm[Hg] Glenna Katzly Other [facility] Other Encounters Encounter Date Encounter Type Care Provider Facility Start: 12-17-2023 End: 12-17-2023 ambulatory [facility] Work Phone: Start: 12-17-2023 End: 12-17-[address] [facility] Work Phone: Start: 11-26-2023 End: 11-26-2023 ambulatory [facility] Work Phone: Start: 11-26-2023 End: 11-26-[address] [facility] Work Phone: Start: 10-15-2023 End: 10-15-2023 ambulatory SONYA JACKIE Not Available Start: 10-11-2023 End: 10-11-2023 ambulatory Sonya Timothy Mejia Work Phone: [facility] Work Phone: Start: 10-11-2023 End: 10-11-2023 Patient encounter procedure Sonyaluiz Mejia Work Phone: [facility] Work Phone: Start: 08-21-2023 End: 08-21-2023 ambulatory Glenna C Sterlingly Facility: Start: 08-21-2023 End: 08-21-2023 ambulatory Services [facility] Work Phone: [facility] Work Phone: Start: 08-21-2023 End: 08-21-2023 Patient encounter procedure Services [facility] Work Phone: [facility] Work Phone: Start: 08-21-2023 End: 08-21-2023 ambulatory Services [facility] Work Phone: [facility] Work Phone: Start: 08-21-2023 End: 08-21-2023 Patient encounter procedure Services [facility] Work Phone: [facility] Work Phone: Start: 08-07-2023 End: 08-07-2023 [facility] Start: 08-07-2023 End: 08-07-2023 Patient encounter procedure Jason Ch MD Work Phone: Ophthalmology Comment on above: Type 2 diabetes marti itus with both eyes affected 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, unspecified whether termite control servicer insulin use (HCC) (Primary Dx); 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, bilateral; Nuclear sclerotic cataract, bilateral Start: 06-26-2023 End: 06-26-2023 Patient encounter procedure Services [facility] Work Phone: [facility] Work Phone: Start: 06-07-2023 End: 06-07-2023 ambulatory SONYA JACKIE Not Available Start: 06-07-2023 Bamboo flowsheet Sonya Jackie REMEDIAL PROJECT MANAGER Work Phone: [facility] Start: 06-07-2023 Bamboo flowsheet Sonya Jackie REMEDIAL PROJECT MANAGER Work Phone: [facility] Start: 06-07-2023 End: 06-07-2023 Patient encounter procedure Sonya Jackie REMEDIAL PROJECT MANAGER Work Phone: [facility] Comment on above: Encounter for subseq uent annual wellness visit (AWV) in Medicare patient (Primary Dx); Encounter for screening mammogram for malignant neoplasm of breast; Primary hypertension ([facility]); Gastroesophageal reflux disease, unspecified whether esophagitis present; 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, with long-term current use of insulin, macular edema presence unspecified, unspecified laterality, unspecified proliferative retinop* ([facility]); Class 3 severe obesity due to excess calories without serious comorbidity with body mass index (BMI) of 40.0 to 44.9 in adult ([facility]); Anxiety and depression ([facility]); 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 [employer] Work Phone: Start: 05-28-2023 End: 05-28-2023 ambulatory Services [facility] Work Phone: [facility] Work Phone: Start: 05-28-2023 End: 05-28-2023 Discharged Recurring Services [facility] Work Phone: [facility] Work Phone: Start: 05-24-2023 Refill Sonya Mejia REMEDIAL PROJECT MANAGER Work Phone: [facility] Comment on above: Mixed hyperlipidemia (CMS/HCC) (Primary Dx) Start: 04-02-2023 End: 04-02-2023 ambulatory SONYA MEJIA Not Available Start: 02-19-2023 (DM) [facility] Start: 02-19-2023 End: 02-19-2023 ambulatory Glenna Quinones Other [place] [employer] Other Start: 02-05-2023 End: 02-05-2023 ambulatory Glenna Quinones Other [facility] Other Start: 02-05-2023 Telephone encounter Glenna manzano [facility] Start: 01-31-2023 End: 01-31-2023 ambulatory GLENDY PÉREZ Facility:[facility] Start: 01-16-2023 End: 01-16-2023 ambulatory Glenna Quinones Other [facility] Other Start: 01-16-2023 Nursing evaluation o f patient and report Glenna Quinones [facility] Start: 12-14-2022 End: 12-14-2022 ambulatory Glenna Quinones Other [facility] Other Start: 12-14-2022 Telephone encounter Glenna manzano [facility] Start: 12-11-2022 End: 12-11-2022 ambulatory Glenna Quinones Other [facility] Other Start: 12-11-2022 Telephone encounter Glenna manzano [facility] Start: 12-06-2022 End: 12-06-2022 ambulatory Mark Gramajo Facility: Start: 12-06-2022 End: 12-06-2022 [facility]ulatory [facility] Work Phone: [facility] Work Phone: Start: 12-06-2022 End: 12-06-2022 Patient encounter procedure Services [facility] Work Phone: [facility] Work Phone: Start: 12-04-2022 End: 12-04-2022 ambulatory Mark Gramajo Facility: Start: 12-04-2022 End: 12-04-2022 Patient encounter procedure Services [facility] Work Phone: [facility] Work Phone: Start: 11-21-2022 (DM) Diabetes Glenna Joni [facility] Start: 11-21-2022 End: 11-21-2022 ambulatory Glennajeff Katzly Other [facility] Other Start: 11-21-2022 Registered Recurring Services [facility] Work Phone: [facility] Work Phone: Start: 11-20-2022 End: 11-20-2022 ambulatory Mark Gramajo Other [facility] Other Start: 11-20-2022 Office outpatient ne w 30 minutes Mark Scmark [facility] Start: 10-27-2022 End: 10-27-2022 ambulatory Glenna Quinones Other [facility] Other Start: 10-27-2022 Telephone encounter Glenna Sosa [facility] Start: 10-17-2022 End: 10-17-2022 ambulatory Glenna Sterlingly Other [facility] Other Start: 10-17-2022 Nursing evaluation o f patient and report Glenna Denis [facility] Start: 10-10-2022 End: 10-10-2022 ambulatory Glenna Sterlingly Other [facility] Other Start: 10-10-2022 Telephone encounter Glenna Sosa [place] [facility] Start: 09-08-2022 ambulatory FINANCIAL SALES ASSISTANT SONYA MEJIA Facil ity:[facility] Start: 08-30-2022 (DM) Diabetes Glenna Sterlingly [facility] Start: 08-30-2022 End: 08-30-2022 ambulatory Glenna Sterlingly Other [facility] Other Start: 08-11-2022 End: 08-12-2022 ambulatory DENISE MEJIA Facility:[facility] Start: 08-07-2022 End: 08-07-2022 ambulatory KAYA PATEL Facility:[facility] Start: 08-04-2022 End: 08-05-2022 ambulatory FINANCIAL SALES ASSISTANT SONYA MEJIA Facility:[facility] Start: 07-19-2022 Registered Recurring Sonya Emani tang Work Phone: [facility] Work Phone: Start: 07-19-2022 Nursing evaluation o f patient and report Glenna Joni [facility] Start: 07-19-2022 End: 07-19-2022 ambulatory Sonya Mejia Work Phone: [facility] Work Phone: Start: 07-19-2022 End: 07-19-2022 Patient encounter procedure Sonya Mejia Work Phone: [facility] [place] Work Phone: Start: 07-11-2022 End: 07-11-2022 ambulatory Glenna Sterlingly Other [facility] Other Start: 07-11-2022 Telephone encounter Glenna Sterlingly [facility] Start: 06-16-2022 End: 06-16-2022 ambulatory Glenna Scally Other [facility] Other Start: 06-16-2022 Telephone encounter Glenna Sterlingly [facility] Start: 06-09-2022 End: 06-09-2022 ambulatory Glenna Scally Other [facility] Other Start: 06-09-2022 Telephone encounter Glenna Sterlingly [facility] Start: 04-26-2022 End: 04-26-2022 ambulatory Glenna Scally Other [facility] Other Start: 04-26-2022 Nursing evaluation o f patient and report Glenna Joni [facility] Start: 03-14-2022 End: 03-14-2022 ambulatory Glenna Sterlingly Other [facility] Other Start: 03-14-2022 Nursing evaluation o f patient and report Glenna Joni [facility] Start: 02-16-2022 (DM) Diabetes Glenna Sterlingly [facility] Start: 02-16-2022 End: 02-16-2022 ambulatory Glenna Sterlingly Other [facility] Other Start: 01-31-2022 End: 01-31-2022 Patient encounter procedure Glendy Pérez PA-C Work Phone: Ophthalmology Comment on above: Type 2 diabetes marti itus with both eyes affected 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, unspecified whether half-way insulin use (HCC) (Primary Dx); Nuclear sclerotic cataract, bilateral; 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, bilateral Start: 01-26-2022 End: 01-26-2022 ambulatory Glenna Sterlingly Other [facility] Other Start: 01-26-2022 Nursing evaluation o f patient and report Glennajeff Denis [facility] Start: 09-27-2021 (DM) Diabetes Glenna Joni [facility] Start: 09-27-2021 End: 09-27-2021 ambulatory Glenna Sterlingly Other [facility] Other Start: 08-26-2021 End: 08-26-2021 ambulatory Glenna Sterlingly Other [facility] Other Start: 08-26-2021 Telephone encounter Glenna Joni [facility] Start: 08-25-2021 End: 08-25-2021 ambulatory Glenna Scally Other [facility] Other Start: 08-25-2021 Telephone encounter Glennajeff Quinones [facility] Start: 08-17-2021 End: 08-17-2021 ambulatory Glenna Scally Other [facility] Other Start: 08-17-2021 Nursing evaluation o f patient and report Glenna Sterlingly [place] [facility] Start: 08-03-2021 End: 08-03-2021 ambulatory Glenna Scally Other [facility] Other Start: 08-03-2021 Telephone encounter Glennajeff manzano [facility] Start: 08-02-2021 (DM) Diabetes Glenna Scally [facility] Start: 08-02-2021 End: 08-02-2021 ambulatory Glenna Scally Other [facility] Other Start: 08-01-2021 End: 08-01-2021 ambulatory Glenna Scally Other [facility] Other Start: 08-01-2021 Telephone encounter Glenna Katzly [facility] Start: 07-18-2021 End: 07-18-2021 ambulatory Glenna Scally Other [facility] Other Start: 07-18-2021 Telephone encounter Glenna Sterlingly [facility] Start: 07-05-2021 (DM) Diabetes Glenna Scally [facility] Start: 07-05-2021 End: 07-05-2021 ambulatory Glenna Scally Other [facility] Other Start: 07-05-2021 Telephone encounter Glenna Scally [facility] [place] [facility] Start: 06-07-2021 End: 06-07-2021 ambulatory Glenna Scally Other [facility] Other Start: 06-07-2021 Telephone encounter Glenna Scally [facility] [place] [facility] Start: 06-06-2021 End: 06-06-2021 ambulatory Glenna Scally Other [facility] Other Start: 06-06-2021 Telephone encounter Glenna Scally [facility] Start: 05-19-2021 End: 05-19-2021 ambulatory Glenna Scally Other [facility] Other Start: 05-19-2021 Telephone encounter Glenna Scally [facility] Start: 05-10-2021 End: 05-10-2021 ambulatory Glenna Scally Other [facility] Other Start: 05-10-2021 Telephone encounter Glenna Scally [facility] Start: 04-27-2021 End: 04-27-2021 ambulatory Glenna Scally Other [facility] Other Start: 04-27-2021 Telephone encounter Glenna Scally [facility] Start: 04-12-2021 End: 04-12-2021 ambulatory Glenna Scally Other [facility] Other Start: 04-12-2021 Telephone encounter Glenna Scally F [facility] Start: 04-11-2021 (DM) Diabetes Glenna Scally [facility] Start: 04-11-2021 End: 04-11-2021 ambulatory Glenna Scally Other [facility] Other Start: 03-14-2021 End: 03-14-2021 ambulatory Glenna Quinones Other [facility] [employer] Other Start: 03-14-2021 Telephone encounter Glenna manzano [facility] Start: 09-06-2020 End: 09-06-2020 Patient encounter procedure Services [facility] Work Phone: [facility] Start: 08-26-2020 Registered Recurring Services [facility] Work Phone: [facility] Start: 11-02-2019 Blood glucose normal Sonya tang Work Phone: Procedures Date Procedure Procedure Detail Performing Clinician Start: 08-07-2023 Computerized ophthalmic imaging retina Jason Ch MD Work Phone: Start: 12-06-2022 Ultrasound elastography of liver Services [facility] Work Phone: Start: 12-04-2022 Ultrasonography of liver Services [facility] Work Phone: Start: 08-04-2022 Mammography Sonya Mejia NP Work Phone: Start: 01-31-2022 End: 01-31-2022 Computerized ophthalmic imaging retina Glendy Pérez PA-C Work Phone: Start: 09-06-2020 Screening mammography of bilateral breasts Services [facility] Work Phone: Start: 03-19-2018 History of laser assisted in situ keratomileusis S/P LASIK (laser assisted in situ keratomileusis) Glendy Pérez PA-C Work Phone: Start: 04-30-2017 H/O: hysterectomy History of hysterectomy for cancer Sonya Mejia REMEDIAL PROJECT MANAGER Work Phone: Start: 12-11-2016 Microscopic observation [Identifier] in Cervix by Cyto stain Sonya Mejia REMEDIAL PROJECT MANAGER Work Phone: Plan of Treatment Date Care Activity Detail Author Start: 08-05-2033 Urine microalbumin profile DTaP,Tdap,Td Vaccine (2 - Td or Tdap) [facility] Start: 12-11-2024 PAP TESTING PAP TESTING [facility] Start: 12-11-2024 Screening for malign ant neoplasm of cervix Pap Testing [facility] Start: 08-21-2024 End: 01-28-2025 OCT MACULA CIRRUS OU (BOTH EYES) OCT MACULA CIRRUS OU (BOTH EYES) OPHT Imaging Routine 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, bilateral Nuclear sclerotic cataract, bilateral 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, unspecified whether half-way insulin use (HCC) Expected: 08/21/2024, Expires: 01/28/2025 [facility] Work Phone: Comment on above: Expected: 08/21/2024 , Expires: 01/28/2025 Start: 08-06-2024 Glaucoma screening Dilated Retinal E xam [facility] Start: 06-07-2024 Medicare Annual Well ness (AWV) Medicare Annual Wellness (AWV) [facility] Start: 02-28-2024 Urine screening for protein Diabetes: Urine Protein Screening [facility] Start: 12-01-2023 Glaucoma screening Diabetes: R etinopathy Screening [facility] Start: 10-15-2023 End: 10-15-2023 Patient encounter procedure 10/15/2023 6:00 PM EDT Office Visit [facility] [address] [place] [address] Sonya Mejia NP [address] [place] [address] [facility] Start: 08-26-2023 Hemoglobin A1c measurement Diabetes: Hemoglobin A1C [facility] Start: 08-06-2023 End: 08-05-2024 MG Breast - bilateral Screening Bilateral screening mammogram Imaging Routine Encounter for screening mammogram for malignant neoplasm of breast Expected: 08/06/2023 (Approximate), Expires: 08/05/2024 [facility] Work Phone: Comment on above: Expected: 08/06/2023 (Approximate), Expires: 08/05/2024 Start: 08-05-2023 Screening for malign ant neoplasm of breast Mammogram [facility] Start: 06-07-2023 End: 06-07-2023 Patient encounter procedure [facility] Comment on above: Encounter for screen ing mammogram for malignant neoplasm of breast (Primary Dx) Start: 04-23-2023 Behavioral Health Screening Behavioral Health Screening [facility] Start: 02-15-2023 End: 07-25-2023 OCT MACULA CIRRUS OU (BOTH EYES) OCT MACULA CIRRUS OU (BOTH EYES) OPHT Imaging Routine 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, unspecified whether half-way insulin use (HCC) Nuclear sclerotic cataract, bilateral 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, bilateral Expected: 02/15/2023, Expires: 07/25/2023 [facility] Work Phone: Comment on above: Expected: 02/15/2023 , Expires: 07/25/2023 Start: 01-31-2023 Hepatitis C antibody , confirmatory test DILATED RETINAL EXAM [facility] Start: 12-06-2022 Start: 2022 Screening for malign ant neoplasm of colon [facility] Start: 12-12-2021 COVID-19 VACCINE (4 - Booster for Blayne series) COVID-19 VACCINE (4 - Booster for Blayne series) [facility] Start: 04-23-2021 DEPRESSION ASSESSMENT DEPRESSION ASS ESSMENT [facility] Start: 12-12-2019 Screening for malign ant neoplasm of cervix [facility] Start: 08-24-2019 Hepatitis B screening URINE ALBUMIN:CREATININE RATIO [facility] Start: 2017 Mammography MAMMOGRAM [facility] Start: 2017 Screening for malign ant neoplasm of breast Mammogram Screening [facility] Start: 2007 HPV TESTING HPV TESTING [facility] Start: 2007 Screening for malign ant neoplasm of cervix [facility] Start: 1996 Hepatitis B Vaccine (1 of 3 - 19+ 3-dose series) Hepatitis B Vaccine (1 of 3 - 19+ 3-dose series) [facility] Start: 1996 Urine microalbumin profile DTAP,TDAP,TD (1 - Tdap) [facility] Start: 1996 Urine screening for protein Diabetes: Urine Protein Screening [facility] Start: 1995 ANNUAL PCP TEAM INSTRUMENT SHOP SUPERVISOR ADRIENNE DISEASE VISIT ANNUAL PCP TEAM CHRONIC DISEASE VISIT [facility] Start: 1995 BP CONTROLLED (<130/80) BP CONTROLLE D (<130/80) [facility] Start: 1995 Hepatitis B surface antibody level LDL CHOLESTEROL [facility] Start: 1995 HEPATITIS C SCREENING HEPATITIS C [facility] Start: 1995 Hepatitis C screening Hepatitis C [facility] Start: 1995 HIV SCREENING HIV SCREENING [facility] Start: 1995 HIV screening HIV Screening [facility] Start: 1987 3 comp foot exam completed DIABETIC FOOT EXAM [facility] Start: 1987 Diabetic foot examination Diabetic Foot Exam [facility] Start: 1987 Glaucoma screening Diabetes: R etinopathy Screening [facility] Start: 1983 PNEUMOCOCCAL (1 - PCV) PNEUMOCOCCAL (1 - PCV) [facility] Start: 1983 Pneumococcal vaccination Pneum ococcal Vaccine (1 of 2 - PCV) [facility] Start: 1982 Hemoglobin A1c measurement HbA1C [facility] Start: 1982 Hemoglobin A1c/Hemoglobin.total in Blood HBA1C [facility] Start: 1977 Hemoglobin A1c measurement Diabetes: Hemoglobin A1C [facility] Start: 1977 HEPATITIS B (1 of 3 - 3-dose series) HEPATITIS B (1 of 3 - 3-dose series) [facility] Start: 1977 Medicare Annual Well ness (AWV) Medicare Annual Wellness (AWV) [facility] Start: 1977 Screening for malign ant neoplasm of colon [facility] Alpha 1 antitrypsin [Mass/volume] in Serum or Plasma Alpha 1 antitrypsin phenotyping [Identifier] in Serum or Plasma by Immunofixation Elastase.pancreatic [Mass/mass] in Stool Hepatitis C virus Ig G Ab [Presence] in Serum or Plasma by Immunoassay Noninvasive colorect al cancer DNA and occult blood screening [Presence] in Stool Cologuard colon cancer screening Lab Routine Colon cancer screening Ordered: 06/07/2023 [facility] Comment on above: Ordered: 06/07/2023 [facility] Immunizations Immunization Date Immunization Notes Care Provider Erika ricketts 02-08-2023 influenza, injectabl e, quadrivalent, preservative free Sonya Aichholz REMEDIAL PROJECT MANAGER Work Phone: [facility] 01-11-2022 influenza, injectabl e, quadrivalent, preservative free Sonya Aichholz REMEDIAL PROJECT MANAGER Work Phone: [facility] 01-15-2021 influenza, injectabl e, quadrivalent, preservative free Sonya Aichholz REMEDIAL PROJECT MANAGER Work Phone: [facility] 07-02-2020 COVID-19 Vaccine Blayne - Documentation Purposes Only Glenna Joni Other 12-26-2019 influenza, injectabl e, quadrivalent, preservative free Sonya Aichholz REMEDIAL PROJECT MANAGER Work Phone: [facility] 01-08-2019 influenza, injectabl e, quadrivalent, preservative free Glendy Baraona PA-C Work Phone: [facility] 12-31-2017 influenza, injectabl e, quadrivalent, preservative free Glendy Baraona PA-C Work Phone: [facility] 12-19-2016 influenza, injectabl e, quadrivalent, preservative free Sonya Aichholz REMEDIAL PROJECT MANAGER Work Phone: [facility] 12-19-2016 influenza, seasonal, injectable Glendy Baraona PA-C Work Phone: [facility] 12-11-2015 influenza, seasonal, injectable, preservative free Sonya Aichholz REMEDIAL PROJECT MANAGER Work Phone: [facility] 11-26-2014 influenza, seasonal, injectable, preservative free Sonya Aichholz REMEDIAL PROJECT MANAGER Work Phone: [facility] Payers Date Payer Category [place] [id number] 2021-Present [phone] [address] [place] [address] Medicaid [id number] 2019 Medicare [id number] 2019 Self-pay [id number] 1977 Unknown [id number] 1977 Unknown [id number] 1977 Unknown [id number] 1977 Unknown [id number] 1977 Unknown [id number] 1977 Unknown [id number] 1977 Unknown [id number] 1959 Medicaid [id number] 1959 Medicare [id number] 1959 Self-pay [id number] 1959 Unknown [id number] Unknown [id number] Unknown [id number] Unknown [id number] Unknown [id number] Unknown [id number] Social History Date Type Detail Facility Start: 05-15-2017 End: 11-02-2019 Tobacco smoking status NHIS Ex-smoker (finding) [facility] Start: 1975 Sex Assigned At Female F [facility] Start: 04-01-2023 End: 08-07-2023 Sex Assigned At [facility] End: 04-23-2012 History of tobacco use Current smoker [facility] End: 04-23-2012 History of tobacco use Cigarette Smoker [facility] Start: 05-15-2017 End: 04-02-2023 Tobacco use and exposure Smokeless tobacco non-user [facility] Start: 01-31-2022 End: 08-07-2023 Alcohol intake Current non-drinker of alcohol (finding) [facility] Start: 1975 Sex Assigned At Not on file [facility] Start: 12-26-2021 End: 01-05-2022 Exposure to SARS-CoV-2 (event) Not sure [facility] Start: 04-02-2023 End: 08-07-2023 Cigarettes smoked current (pack per day) - Reported 0.5 [facility] Start: 04-02-2023 End: 06-07-2023 Alcohol intake Current drinker of alcohol (finding) [facility] Within the last year , have you been afraid of your partner or ex-partner? No [facility] Are you now , , , , never or living with a partner? Never [facility] How often to you hav e a drink containing alcohol? Monthly or less [facility] How many standard dr inks containing alcohol do you have on a typical day? 1 or 2 [facility] How often do you hav e 6 or more drinks on 1 occasion? Never [facility] Do you feel stress - tense, restless, nervous, or anxious, or unable to sleep at night because your mind is troubled all the time - these days [OSQ] To some extent [facility] (I/We) worried wheth er (my/our) food would run out before (I/we) got money to buy more. Never true [facility] In the past 12 month s, has lack of transportation kept you from medical appointments or from getting medications? No [facility] Start: 04-02-2023 Alcohol Comment 1 beer per sun. 1cup of coffee daily [facility] How hard is it for y ou to pay for the very basics like food, housing, medical care, and heating Somewhat hard [facility] NEGATED: Highlighted rowStart: NINF History of tobacco use Passive smoker [facility] Medical Equipment Procedure Code Equipment Code Equipment Origin al Text Equipment Identifier Dates [id number] Start: 10-20-2019 Gas [employer] C3f8 125 - [id number] Start: 08-09-2016 Gas [employer] C3f8 125gm - [id number] Start: 10-10-2017 Goals Date Patient Goal Desired Activity /State Clinical Notes 08-02-2016 to 08-07-2023 Jason Ch MD - 08/07/2023 1:13 PM Presley Mejia NP - 06/07/2023 5:54 PM ESTSonya Mejia, REMEDIAL PROJECT MANAGER - 06/07/2023 5:54 PM Haley Mejia NP - 06/07/2023 5:54 PM EST Note Date & Type Note Facility 08-07-2023 Note HNO ID: [id number] Author: JASON CH MD Service: ? Author Type: Physician Type: Progress Notes Filed: 08/07/2023 14:05 Note Text: The documentation for the note below was completed in part by Keyla Escobedo acting as a scribe for Jason Ch MD. 08/07/2023 1:13 PM. Scribe Attestation: By signing my name below, I, Keyla Escobedo, attest that the documentation in part for the note below and the encounter was completed in part by Keyla Escobedo acting as a scribe for Jason Ch MD. Electronically Signed: Dannielle Jack. August 07, 2023 1:13 PM. 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 - Exam with no NVI or NVD, superior arcade with telangiectatic vessels do not appear to be NVE - Imaging without central DME - Informed pt to call office with vision changes - Continue to follow - F/U with JANELLE Travis in 6 months 2) S/p PPV / MS / EL / C3F8 OS (left eye) 10/10/17 for with high risk PDR OS and significant TRD OS, significant PHT - S/p Avastin #9 09/18/2017 - s/p PRP left eye, last 08/07 - some room for fill inferiorly however will defer until cataract removal given poor view - Very guarded prognosis, previously discussed potential of minimal vision improvement given atrophy - VA worse today at LP (HM preop and fluctates HM/CF) - OCT with worsening macula thickening and traction - DFE overall hazy view, macula thickening with traction - Informed pt to call office with vision changes - Continue to follow - F/U with JANELLE Travis in 6 months 3) LASIK OU - 20 years ago, 1999 4) 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 - Starting to limit view of posterior pole. - May consider CE/IOL in future to allow for monitoring of retina OS - Still able to visualize retina. I personally performed the services described in this documentation. All medical record entries made by the scribe were at my direction and in my presence. I have reviewed the chart and discharge instructions (if applicable) and agree that the record reflects my personal performance and is accurate and complete. I have confirmed and edited as necessary the relevant ophthalmic history, ROS, and the neuro exam findings as obtained by others. I have seen and examined Tasha Paul. I have discussed the case and the management of this patient's care with the Resident/Fellow, if applicable. I also have reviewed and agree with the assessment and plan as stated above and agree with all of its relevant components. [facility] 08-07-2023 History of Present illness Narrative The documentation for the note below was completed in part by Keyla Escobedo acting as a scribe for Jason Ch MD. 08/07/2023 1:13 PM. Scribe Attestation: By signing my name below, I, Keyla Escobedo, attest that the documentation in part for the note below and the encounter was completed in part by Keyla Escobedo acting as a scribe for Jason Ch MD. Electronically Signed: Keyla Escobedo, Sadiee. August 07, 2023 1:13 PM. 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 - Exam with no NVI or NVD, superior arcade with telangiectatic vessels do not appear to be NVE - Imaging without central DME - Informed pt to call office with vision changes - Continue to follow - F/U with JANELLE Travis in 6 months 2) S/p PPV / MS / EL / C3F8 OS (left eye) 10/10/17 for with high risk PDR OS and significant TRD OS, significant PHT - S/p Avastin #9 09/18/2017 - s/p PRP left eye, last 08/07 - some room for fill inferiorly however will defer until cataract removal given poor view - Very guarded prognosis, previously discussed potential of minimal vision improvement given atrophy - VA worse today at LP (HM preop and fluctates HM/CF) - OCT with worsening macula thickening and traction - DFE overall hazy view, macula thickening with traction - Informed pt to call office with vision changes - Continue to follow - F/U with JANELLE Travis in 6 months 3) LASIK OU - 20 years ago, 1999 4) 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 - Starting to limit view of posterior pole. - May consider CE/IOL in future to allow for monitoring of retina OS - Still able to visualize retina. I personally performed the services described in this documentation. All medical record entries made by the scribe were at my direction and in my presence. I have reviewed the chart and discharge instructions (if applicable) and agree that the record reflects my personal performance and is accurate and complete. I have confirmed and edited as necessary the relevant ophthalmic history, ROS, and the neuro exam findings as obtained by others. I have seen and examined Tasha Paul. I have discussed the case and the management of this patient's care with the Resident/Fellow, if applicable. I also have reviewed and agree with the assessment and plan as stated above and agree with all of its relevant components. documented in this encounter [facility] 06-07-2023 History of Present illness Narrative Associated Problem(s): Encounter for subsequent annual wellness visit (AWV) in Medicare patient Reviewed Ht/Wt/BMI Recommend eye exam yearly Recommend dental exams twice a year Balance work/leisure activities Exercises is recommended most days of the week (appropriate as chronic conditions allow) Follow up yearly and prn Associated Problem(s): Anxiety and depression ([facility]) Stable on current meds Associated Problem(s): Type 2 diabetes mellitus, with long-term current use of insulin ([facility]) Not at goal, A1c 10%, continue care with [facility] psych sales specialist Check blood sugars daily, notify if <70 or >200. Take medications (pills or insulin) as directed. Monitor for s/s of hypoglycemia (sweaty, dizziness, nausea, vomiting, or shakiness). Watch for increase in thirst, urination, or appetite. Inspect feet frequently monitoring for open wounds , and also recommend yearly eye exam. Pt should attempt to remain as physically active as chronic conditions allow, as well as trying to follow a diet low in carbohydrates, and simple sugars. Associated Problem(s): 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 disease) Stable with current meds Associated Problem(s): Hypertension (CMS/HCC) At goal no changes in meds Left knee pain Possibly wants to talk about getting a cane due to falls and not being able to see out of the left eye. Images from the original note were not included. Tasha Paul is a 47 y.o. female presents with chief complaint of No chief complaint on file. HPI: Here for AWV Diabetes: follows with specialist Hypertension This is a chronic problem. The current episode started more than 1 year ago. The problem is unchanged. The problem is controlled. Associated symptoms include anxiety. Pertinent negatives include no chest pain, headaches, palpitations, peripheral edema or shortness of breath. There are no associated agents to hypertension. Risk factors for coronary artery disease include diabetes mellitus, dyslipidemia, obesity and sedentary lifestyle. Past treatments include YESSY inhibitors. The current treatment provides significant improvement. Anxiety Presents for follow-up visit. Symptoms include depressed mood, irritability and nervous/anxious behavior. Patient reports no chest pain, decreased concentration, dizziness, dry mouth, nausea, palpitations, shortness of breath or suicidal ideas. Symptoms occur occasionally. The severity of symptoms is mild. Compliance with medications is 76-100%. Depression Visit Type: follow-up Patient presents with the following symptoms: depressed mood, irritability and nervousness/anxiety. Patient is not experiencing: anhedonia, chest pain, choking sensation, decreased concentration, dizziness, dry mouth, fatigue, palpitations, shortness of breath, suicidal ideas, suicidal planning and thoughts of . Frequency of symptoms: most days Sleep quality: good Compliance with medications: 76-100% GERD She reports no abdominal pain, no chest pain, no choking, no coughing, no nausea, no sore throat or no wheezing. Nothing aggravates the symptoms. There are no known risk factors. She has tried a PPI for the symptoms. The treatment provided significant relief. SUBJECTIVE: MEDICATIONS: Current Outpatient Medications Medication Instructions ammonium lactate (Lac-Hydrin) 12 % lotion 1 application , Every 12 hours atorvastatin (LIPITOR) 80 mg, Oral, Daily Basaglar KwikPen 100 UNIT/ML pen inject 40 units subcutaneously once daily Fiasp 100 UNIT/ML solution inject as directed four times a day (EXPECT 100 UNITS PER DAY) Insulin Disposable Pump (V-Go 40) 40 UNIT/24HR kit 1 Pump, Injection, Daily insulin syringe-needle U-100 (B-D INS SYR HALF-UNIT .3CC/31G) 31G X 5/16 0.3 mL misc 1 each, Subcutaneous, 4 times daily PRN, Use as instructed Lancets Micro Thin 33G misc 1 Lancet, Does not apply, 4 times daily lisinopril 40 mg, Oral, Daily, Total is 40mg, so 2 pills daily loratadine (CLARITIN) 10 mg, Oral, Every 24 hours metFORMIN (GLUCOPHAGE) 1,000 mg, Oral, Every 12 hours Multiple Vitamins-Minerals (ONE-A-DAY WOMENS PO) 1 tablet, Oral, Daily NovoLOG 100 UNIT/ML solution 100 mL, Subcutaneous omeprazole (PriLOSEC) [address] capsule 1 capsule, Oral, Daily Ozempic (0.25 or 0.5 MG/DOSE) 0.25 mg, Subcutaneous, Weekly potassium chloride ER (Micro-K) 10 MEQ ER capsule 1 capsule, Oral, 3 times daily, Do not crush or chew. sertraline (ZOLOFT) 50 mg, Oral, Daily ALLERGIES: Allergies Allergen Reactions Dulaglutide Other Reaction(s): vomiting REVIEW OF SYMPTOMS: Review of Systems Constitutional: Positive for irritability. Negative for appetite change, chills and fever. HENT: Negative for congestion, ear pain and sore throat. Eyes: Positive for visual disturbance. Negative for pain, discharge and redness. Respiratory: Negative for cough, choking, shortness of breath and wheezing. Cardiovascular: Negative for chest pain, palpitations and leg swelling. Gastrointestinal: Negative for abdominal pain, blood in stool, constipation, diarrhea, nausea and vomiting. Genitourinary: Negative for difficulty urinating, dysuria and frequency. Musculoskeletal: Negative for arthralgias, back pain, joint swelling and myalgias. Skin: Negative for rash and wound. Neurological: Negative for dizziness, tremors, seizures, syncope and headaches. Psychiatric/Behavioral: Positive for depression. Negative for behavioral problems, decreased concentration, self-injury and suicidal ideas. The patient is nervous/anxious. Hematological: Does not bruise/bleed easily. Endocrine: Negative for polydipsia, polyphagia and polyuria. Allergic/Immunologic: Negative for environmental allergies and food allergies. PAST MEDICAL HISTORY Past Medical History: Diagnosis Date Adenocarcinoma of endometrium, stage 1 ([facility] 04/30/2017 Total Hysterectomy Anxiety and depression ([facility]) 06/07/2023 Class 3 severe obesity due to excess calories without serious comorbidity with body mass index (BMI) of 40.0 to 44.9 in adult ([facility]) 04/02/2023 Diverticulitis of intestine without perforation or abscess without bleeding, unspecified part of intestinal tract 06/07/2023 Fatty liver History of hysterectomy for cancer 04/30/2017 HLD (hyperlipidemia) ([facility]) 05/24/2023 Learning disabilities 06/07/2023 Narcotic abuse in remission ([facility]) 06/07/2023 Partial blindness 06/07/2023 Type 2 diabetes mellitus with diabetic retinopathy ([facility]) 06/07/2023 without macular edema, unspecified retinopathy severity Type 2 diabetes mellitus, with long-term current use of insulin ([facility]) 04/02/2023 Past Surgical History: Procedure Laterality Date EYE SURGERY 2000 Laser HYSTERECTOMY 04/30/2017 Total - Adenocarcinoma of Endometrium / Uterus, figo, Grade 1 OTHER SURGICAL HISTORY 02/26/2017 Out pt Laparoscopy TONSILLECTOMY 1995 WISDOM TOOTH EXTRACTION 1997 family history includes Alcohol abuse in her mother; Cancer (age of onset: 41) in her mother; Diabetes in her brother, father, mother, and paternal grandmother; Hypertension in her brother, father, and mother. OBJECTIVE: Visit Vitals BP 122/80 (BP Location: Left arm, Patient Position: Sitting, BP Cuff Size: Adult long) Pulse 109 Temp 97.6 F (Temporal) Resp 19 Ht 5' 6 Wt 264 lb 12.8 oz SpO2 98% BMI 42.74 kg/m Smoking Status Former BSA 2.36 m Physical Exam Vitals reviewed. Constitutional: General: She is not in acute distress. Appearance: Normal appearance. HENT: Head: Normocephalic and atraumatic. Right Ear: Tympanic membrane, ear canal and external ear normal. Left Ear: Tympanic membrane, ear canal and external ear normal. Nose: Nose normal. Mouth/Throat: Mouth: Mucous membranes are moist. Eyes: Extraocular Movements: Extraocular movements intact. Conjunctiva/sclera: Conjunctivae normal. Neck: Vascular: No carotid bruit. Cardiovascular: Rate and Rhythm: Normal rate and regular rhythm. Pulses: Normal pulses. Heart sounds: Normal heart sounds. Pulmonary: Effort: Pulmonary effort is normal. Breath sounds: Normal breath sounds. Abdominal: General: Bowel sounds are normal. There is no distension. Palpations: Abdomen is soft. There is no mass. Tenderness: There is no abdominal tenderness. Musculoskeletal: General: Normal range of motion. Cervical back: Neck supple. Right lower leg: No edema. Left lower leg: No edema. Lymphadenopathy: Cervical: No cervical adenopathy. Skin: General: Skin is warm and dry. Capillary Refill: Capillary refill takes 2 to 3 seconds. Findings: No rash. Neurological: General: No focal deficit present. Mental Status: She is alert and oriented to person, place, and time. Psychiatric: Mood and Affect: Mood normal. Behavior: Behavior normal. Thought Content: Thought content normal. Judgment: Judgment normal. ASSESSMENT AND PLAN: No follow-ups on file. Problem List Items Addressed This Visit 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 disease) Stable with current meds Hypertension (CMS/[facility]) At goal no changes in meds Type 2 diabetes mellitus, with long-term current use of insulin ([facility]) Not at goal, A1c 10%, continue care with [facility] psych sales specialist Check blood sugars daily, notify if <70 or >200. Take medications (pills or insulin) as directed. Monitor for s/s of hypoglycemia (sweaty, dizziness, nausea, vomiting, or shakiness). Watch for increase in thirst, urination, or appetite. Inspect feet frequently monitoring for open wounds , and also recommend yearly eye exam. Pt should attempt to remain as physically active as chronic conditions allow, as well as trying to follow a diet low in carbohydrates, and simple sugars. Class 3 severe obesity due to excess calories without serious comorbidity with body mass index (BMI) of 40.0 to 44.9 in adult (CMS/HCC) Anxiety and depression ([facility]/HCC) Stable on current meds Encounter for screening mammogram for malignant neoplasm of breast Relevant Orders Bilateral screening mammogram Encounter for subsequent annual wellness visit (AWV) in Medicare patient - Primary Reviewed Ht/Wt/BMI Recommend eye exam yearly Recommend dental exams twice a year Balance work/leisure activities Exercises is recommended most days of the week (appropriate as chronic conditions allow) Follow up yearly and prn Colon cancer screening Relevant Orders Cologuard colon cancer screening Other Visit Diagnoses longterm (current) use of insulin (Z79.4) documented in this encounter [facility] 02-19-2023 Evaluation note Encounter Date Diagnosis Assessment Notes Jan, Vitamin D deficiency (ICD-10 - E55.9) Taking OTC self Jan, Type 2 diabetes mellitus with hyperglycemia (ICD-10 - E11.65) 1. Uncontrolled, a Type 2 diabetes with A1c of 8.6%, but GMI today 7.9%.-- implies improvement 2. Continue V-Go 40 with NovoLog, Basaglar 40 units if without V-Go for 24 hours. Discussed sliding scale 1 unit for every 25 mg/dL above goal, explained in clicks, she does have her old skills, insulin to carb ratio 1 unit for every 7 carbohydrates also described in clicks, she shares her current scale which is unchanged. She is also on Ozempic she has not had this for 2 weeks due to procurement. She was under the impression that it was no longer to be covered. We did call the insurance and it was because they cannot get 2 mg dosing. I did send a prescription for 1 mg of Ozempic as a saline get that within 24 hours. Ozempic 1 mg subcu weekly x1 month with refills, return to 2 mg dosing when available. Patient states understanding. Historical issues with dosing of insulin outside of V-Go. Patient states this is no longer her behavior. She has not ran out of insulin. She wears V-Go daily. We will have her return to clinic in 6 weeks if she does well with high surveillance by our office. Appears she has follow-up regarding CT abdomen abnormalities, esophageal cyst Will hold on SGLT2i_ _ patient with history of EUGLYCEMIC DKA IN THE PAST. _ __ Patient did show continued improvement in surveillance of diabetes care in past, but this is variable. Provided significant amount of affirmation regarding her effort. VGO fail plan reviewed. BENEFITS from Libre2 with alarms and reminders. Current Research shows that stamina with the current regime may fatigue, as would outcomes and CGM is equitable compaired to disease instability. Patient also uses VGO technology, has ICR and ISS treatment of BG which increases cumbersome nature of current regime. She also has cognitive limitations which impede planning and followthru. Libre2 will help her titrate medications and manage prandial BG. CGM usage is consistent with 2021 ADA guidelines for IDDM. 3. TOPICS REVIEWED: 1. Time was spent reviewing: a. Basic concepts of diabetes, progressive beta cell , concepts of basal/bolus/cor rective insulin requirements. Basal: The goal is fasting blood glucose of 90-130mg. IF fasting blood glucose starts to run under 100mg 3x's/ week, decrease dose by 10%. Bolus: The goal is to hold the blood glucose level steady meal to meal. If pt. is going to have increased physical activity after a meal, decrease the schedule meal dose prior to the activity by 30-50%. If pt. skips a meal do not take this dose. Correction: The goal is to correct an elevated glucose back into the 100-150mg range b. Nutrition: Concepts of healthy diet, encouraged to decrease saturated fat in diet and increase non-starchy vegetables and fruits in diet. BMI: Pt. needs to select one small change to decrease caloric intake or increase physical activity to help decrease weight. c. Correct treatment of hypoglycemia, carry a glucose source at all times on your person, in vehicles, and at bedside. Can use glucose tablets/4, four ounces of pop or juice equal to 15 G of carbohydrate. Blood glucose should be 100 mg/dl or higher when driving. d. ADA glucose goals for age and medical complexity reviewed e. Patient questions addressed 2. Activity/exerci se: Encouraged to start any form of physical activity. Start low level and increase slowly to a minimal goal of 150 minutes/week. Limit activity to what is allowed by other issues such as cardiac, pulmonary or orthopedic restrictions. 3. Standards of care: Reminded to have an annual dilated eye exam, A1C every 3 months, urine testing for microalbumin once/year, check feet daily and report any cuts or sores that do not appear to be healing. 4. Meter: Plan to check blood glucose: Please check blood glucose levels 4 times/day. Back to back meals reveal effectiveness of bolus dosing. The blood glucose data is used to determine insulin doses and confirm symptoms for hypoglycemia and hyperglcyemia. The blood glucose data is used to determine insulin doses, and confirm symptoms for hypoglycemia and hyperglcyemia. 5. [facility] Contact office if any issues or concerns with patterns of hypoglycemia, hyperglycemia, or diabetes medication issues. 6. Prescriptions: None needed 02-19-2023. Jan, Encounter for medication monitoring (ICD-10 - Z51.81) Jan, Dietary counseling and surveillance (ICD-10 - Z71.3) Learning About Healthy Weight material was published to portal Jan, Hyperlipidemia (ICD-10 - E78.5) Jan, HTN (hypertension) (ICD-10 - I10) Jan, longterm current use of insulin (ICD-10 - Z79.4) Jan, Vitamin B 12 deficiency (ICD-10 - E53.8) Taking OTC supplement Jan, Hypoglycemia associated with type 2 diabetes mellitus (ICD-10 - E11.649) see above Jan, Nausea & vomiting (ICD-10 - R11.2) Jan, BMI 40.0-44.9, adult (ICD-10 - Z68.41) down 3 lbs Jan, Depression (ICD-10 - F32.9) Continue Sertriline Jan, Autism spectrum disorder (ICD-10 - F84.0) Jan, ADHD (ICD-10 - F90.9) NEEDS SIMPLE STEPS-- PRAISE/ AFFIRMATION FOR PROGRESS Jan, Eating disorder (ICD-10 - F50.9) Defers Lui program [facility] Other 10-11-2023 NoteHNO ID: [id number] Author: Glendy Pérez PA-C Service: ? 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 Ch in 6 months 2) S/p PPV / MS / EL / C3F8 OS (left eye) 10/10/17 for with high risk PDR OS and significant TRD OS, significant PHT - S/p Avastin #9 09/18/2017 - s/p PRP left eye, last 08/07 - some room for fill inferiorly however will defer until cataract removal given poor view - Very guarded prognosis, previously discussed potential of minimal vision improvement given atrophy - VA stable at HM (HM preop and fluctates HM/CF) - Remains stable on OCT and DFE - Call office with vision changes - Continue to monitor - Follow up with Dr. 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 - Starting to limit view of posterior pole. - May consider CE/IOL in future to allow for monitoring of retina OS I have seen and examined this patient. I have confirmed and edited as necessary the relevant ophthalmic history, medications, ROS, and the neuro and ophthalmic exam findings as obtained by others and myself. I have discussed the case and the management of this patient's care with the attending Physician, if applicable. I also have reviewed and agree with the assessment and plan as stated above and agree with all of its relevant components. I have discussed the treatment alternatives with the patient and the patient's family, if applicable. Follow-up as noted below, or sooner if new symptoms develop.[facility]09-26-2023 Evaluation note* Encounter Date Diagnosis Assessment Notes Treatment Notes Treatment Clinical Notes Dec, Type 2 diabetes mellitus with hyperglycemia (ICD-10 - E11.65) Patient in today for review of blood glucose logs, food logs, and insulin dosing. Patient's Neris was downloaded with ranges between lowest 104-368 highest for the past 14 days. Average reading 210 mg/dl. CGM active 68%. Time in ranges very high 31%, high 25%, target range 44%, low 0%, and very low 0%. Patient states she has been checking her blood sugars ac, hs with a glucose goal of 90-130 ac 120-180 hs. Discussed with patient the importance of insulin compliance, especially using ISS and carb coverage. Pt admits to only using 1:25 corrective scale. Pt was instructed to use 1:7 insulin to carb covorage last visit, but has not been using. Neris report downloaded and discussed with TAYLOR Killian. Patient to continue V-Go 40 with corrective scale 1:25 ac tid (hs 1/2 dose if >200) PLUS 1 click with consistant amount of carbs in place of 1:7 insulin to carb ratio. Continue Metformin 1000 mg po bid and Ozempic 2 mg SQ weekly. Written information was provided. Discussed meal planning examples and reviewed use of use of corrective scale. Encouraged patient to continue to check glucose before meals and bedtime. Pt denies any issues or problems with her Neris at this time. Pt states she just received 9 vials of insulin and 3 boxes of V-Go. Pt denies any use of syringes outside of V-Go use. All questions and concerns addressed. Encouraged to follow up for next appointment with provider. 60 minutes was spent on education by Rosie CLARK, RN [facility] Other 08-01-2023 Evaluation note* Encounter Date Diagnosis Assessment Notes Treatment Notes Treatment Clinical Notes Nov, Vitamin D deficiency (ICD-10 - E55.9) 04/28/2020 Vit d 20.1 start supplment Nov, Type 2 diabetes mellitus with hyperglycemia (ICD-10 - E11.65) 1. Uncontrolled, a Type 2 diabetes with A1c of 7.4% GMI today 7.5%. 2. Toes good with proximal surveillance. She should continue metformin 1000 mg twice daily, Ozempic 2 mg q. weekly. She will continue V-Go 40 with a 1-25 correction scale and daily clicks. 1 unit for every 7 g of carbs given in 6. This is unchanged. Patient does well with close follow-up. Historically I did have out reach with the Lui program, had intake for 2 hours. Do to her binge eating tendencies. She appears to be doing better with this. Found the program to be cost prohibitive She denies any insulin administration outside of the V-Go. We will have her return to clinic in 6 weeks if she does well with high surveillance by our office. Appears she has follow-up regarding CT abdomen abnormalities, esophageal cyst Will hold on SGLT2i_ _ patient with history of EUGLYCEMIC DKA IN THE PAST. _ __ Patient did show continued improvement in surveillance of diabetes care in past, but this is variable. Provided significant amount of affirmation regarding her effort. VGO fail plan reviewed. BENEFITS from Libre2 with alarms and reminders. Current Research shows that stamina with the current regime may fatigue, as would outcomes and CGM is equitable compaired to disease instability. Patient also uses VGO technology, has ICR and ISS treatment of BG which increases cumbersome nature of current regime. She also has cognitive limitations which impede planning and followthru. Libre2 will help her titrate medications and manage prandial BG. CGM usage is consistent with 202 ADA guidelines for IDDM. 3. TOPICS REVIEWED: 1. Time was spent reviewing: a. Basic concepts of diabetes, progressive beta cell , concepts of basal/bolus/correct bart insulin requirements. Basal: The goal is fasting blood glucose of 90-130mg. IF fasting blood glucose starts to run under 100mg 3x's/ week, decrease dose by 10%. Bolus: The goal is to hold the blood glucose level steady meal to meal. If pt. is going to have increased physical activity after a meal, decrease the schedule meal dose prior to the activity by 30-50%. If pt. skips a meal do not take this dose. Correction: The goal is to correct an elevated glucose back into the 100-150mg range b. Nutrition: Concepts of healthy diet, encouraged to decrease saturated fat in diet and increase non-starchy vegetables and fruits in diet. BMI: Pt. needs to select one small change to decrease caloric intake or increase physical activity to help decrease weight. c. Correct treatment of hypoglycemia, carry a glucose source at all times on your person, in vehicles, and at bedside. Can use glucose tablets/4, four ounces of pop or juice equal to 15 G of carbohydrate. Blood glucose should be 100 mg/dl or higher when driving. d. ADA glucose goals for age and medical complexity reviewed e. Patient questions addressed 2. Activity/exercise: Encouraged to start any form of physical activity. Start low level and increase slowly to a minimal goal of 150 minutes/week. Limit activity to what is allowed by other issues such as cardiac, pulmonary or orthopedic restrictions. 3. Standards of care: Reminded to have an annual dilated eye exam, A1C every 3 months, urine testing for microalbumin once/year, check feet daily and report any cuts or sores that do not appear to be healing. 4. Meter: Plan to check blood glucose: Please check blood glucose levels 4 times/day. Back to back meals reveal effectiveness of bolus dosing. The blood glucose data is used to determine insulin doses and confirm symptoms for hypoglycemia and hyperglcyemia. The blood glucose data is used to determine insulin doses, and confirm symptoms for hypoglycemia and hyperglcyemia. 5. [facility]. Contact office if any issues or concerns with patterns of hypoglycemia, hyperglycemia, or diabetes medication issues. 6. Prescriptions: None needed 08-30-2022. Nov, Encounter for medication monitoring (ICD-10 - Z51.81) Nov, Dietary counseling and surveillance (ICD-10 - Z71.3) Learning About Healthy Weight material was published to portal Nov, Hyperlipidemia (ICD-10 - E78.5) Nov, HTN (hypertension) (ICD-10 - I10) f/u with pcp BP ELEVATED TODAY Nov, longterm current use of insulin (ICD-10 - Z79.4) Nov, Vitamin B 12 deficiency (ICD-10 - E53.8) 07/2021 recommend otc b12 1000 mcg QOD Nov, Hypoglycemia associated with type 2 diabetes mellitus (ICD-10 - E11.649) see above Nov, Nausea & vomiting (ICD-10 - R11.2) Nov, BMI 40.0-44.9, adult (ICD-10 - Z68.41) down 3 lbs Nov, Depression (ICD-10 - F32.9) Continue Sertriline Nov, Autism spectrum disorder (ICD-10 - F84.0) Nov, ADHD (ICD-10 - F90.9) NEEDS SIMPLE STEPS-- PRAISE/ AFFIRMATION FOR PROGRESS Nov, Eating disorder (ICD-10 - F50.9) DISCUSSION OF HELP FROM [facility] PROGRAM. She will follow-up Nov, Other VGO review, fills per NR DE RN/ supply chain vice president. I have spent 30 minutes with this patient and over 50% of the visit was counseling done by myself, Marcela AMANDA. [facility] Other 07-31-2023 Evaluation note* Encounter Date Diagnosis Assessment Notes Treatment Notes Treatment Clinical Notes Oct, 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 disease) (ICD-10 - K21.9) Pt advised to start omeprazole 40mg BID- pt advised to take this 30 min prior to meals. Pt advised to get ct scan of chest for Cystic Structure Oct, Right upper quadrant abdominal pain (ICD-10 - R10.11) Pt advised to proceed with colonoscopy pt RTO 2 months Oct, Constipation, unspecified constipation type (ICD-10 - K59.00) Pt given miralax samples [facility] Other 07-07-2023 Evaluation note* Encounter Date Diagnosis Assessment Notes Treatment Notes Treatment Clinical Notes Oct, Type 2 diabetes mellitus with hyperglycemia (ICD-10 - E11.65) [facility] Other 06-27-2023 Evaluation note* Encounter Date Diagnosis Assessment Notes Treatment Notes Treatment Clinical Notes Sep, Type 2 diabetes mellitus with hyperglycemia (ICD-10 - E11.65) Patient in today for review of blood glucose logs, food logs, and insulin dosing. Patient's Neris was downloaded with ranges between lowest 56-400 highest ffrom dates 10/09/22-10/14/22. Average reading 234 mg/dl. CGM active 48%.Time in ranges very high 41%, high 29%, target range 29%, low 1%, and very low 0%. Patient states she has been checking her blood sugars ac, hs with a glucose goal of 90-130 ac 120-180 hs. Patient currently taking Metformin 1000mg po bid, Ozempic 2mg SQ injection weekly, V-Go 40 1:7 ICR, !:25 corrective scale 1:25 ac tid (hs if >200, 1/2 dose). Patient does know how to count carbs, discussed with patient the importance of insulin compliance, especially the timing of insulin administration. Pt admits to skipping meals at times, not taking meal dose insulin regularly, and taking boluses after meals. Patient has been able to use corrective scale 1:25 before meals and 1:7 (2-4-5-6) insulin to carb ratio. Neris report downloaded and discussed with Carlene AMANDA. Patient to continue same medication regimen. Written information was provided including updated 1:25 corrective scale. Discussed meal planning examples and reviewed use of use of corrective scale. Strongly encouraged patient to check glucose before meals and bedtime and to treat prior to the start of the meal. Pt denies any issues or problems with her Neris and V-Go 40 at this time. All questions and concerns addressed. Encouraged to follow up for next appointment. 60 minutes was spent on education by Rosie CLARK, RN [facility] Other 06-20-2023 Evaluation note* Encounter Date Diagnosis Assessment Notes Treatment Notes Treatment Clinical Notes Sep, Type 2 diabetes mellitus with hyperglycemia (ICD-10 - E11.65) [facility] Other 05-10-2023 Evaluation note* Encounter Date Diagnosis Assessment Notes Treatment Notes Treatment Clinical Notes August, Vitamin D deficiency (ICD-10 - E55.9) 04/28/2020 Vit d 20.1 start supplment August, Type 2 diabetes mellitus with hyperglycemia (ICD-10 - E11.65) 1. Uncontrolled, a Type 2 diabetes with A1c of 7.4% GMI improved and correlate 2. Did have out reach with the Lui program, had intake for 2 hours. I have encouraged her follow-up. She is awaiting callback from them. She has had an increase in her sertraline which she feels like is affecting her appetite and her binge eating. She denies any insulin administration outside of the V-Go. She is tolerating Ozempic 2.0 once weekly. She did have episode of abdominal pain at the [facility], lipase was low, no suspicion of pancreatitis, resolved within ER visit. Her weight does show some improvement. She continues with V-Go 40 CGM does not show any consistent lows. Her sensitivities were provided and clicks 1 unit for every 25 mg/dL above goal and insulin to carb ratio unchanged. We will have her return to clinic in 6 weeks if she does well with high surveillance by our office. [facility] reviewed. Appears she has follow-up regarding CT abdomen abnormalities. Will hold on SGLT2i_ _ patient with history of EUGLYCEMIC DKA IN THE PAST. _ __ Patient did show continued improvement in surveillance of diabetes care in past, but this is variable. Provided significant amount of affirmation regarding her effort. VGO fail plan reviewed. BENEFITS from Libre2 with alarms and reminders. Current Research shows that stamina with the current regime may fatigue, as would outcomes and CGM is equitable compaired to disease instability. Patient also uses VGO technology, has ICR and ISS treatment of BG which increases cumbersome nature of current regime. She also has cognitive limitations which impede planning and followthru. Libre2 will help her titrate medications and manage prandial BG. CGM usage is consistent with 202 ADA guidelines for IDDM. 3. TOPICS REVIEWED: 1. Time was spent reviewing: a. Basic concepts of diabetes, progressive beta cell , concepts of basal/bolus/correct bart insulin requirements. Basal: The goal is fasting blood glucose of 90-130mg. IF fasting blood glucose starts to run under 100mg 3x's/ week, decrease dose by 10%. Bolus: The goal is to hold the blood glucose level steady meal to meal. If pt. is going to have increased physical activity after a meal, decrease the schedule meal dose prior to the activity by 30-50%. If pt. skips a meal do not take this dose. Correction: The goal is to correct an elevated glucose back into the 100-150mg range b. Nutrition: Concepts of healthy diet, encouraged to decrease saturated fat in diet and increase non-starchy vegetables and fruits in diet. BMI: Pt. needs to select one small change to decrease caloric intake or increase physical activity to help decrease weight. c. Correct treatment of hypoglycemia, carry a glucose source at all times on your person, in vehicles, and at bedside. Can use glucose tablets/4, four ounces of pop or juice equal to 15 G of carbohydrate. Blood glucose should be 100 mg/dl or higher when driving. d. ADA glucose goals for age and medical complexity reviewed e. Patient questions addressed 2. Activity/exercise: Encouraged to start any form of physical activity. Start low level and increase slowly to a minimal goal of 150 minutes/week. Limit activity to what is allowed by other issues such as cardiac, pulmonary or orthopedic restrictions. 3. Standards of care: Reminded to have an annual dilated eye exam, A1C every 3 months, urine testing for microalbumin once/year, check feet daily and report any cuts or sores that do not appear to be healing. 4. Meter: Plan to check blood glucose: Please check blood glucose levels 4 times/day. Back to back meals reveal effectiveness of bolus dosing. The blood glucose data is used to determine insulin doses and confirm symptoms for hypoglycemia and hyperglcyemia. The blood glucose data is used to determine insulin doses, and confirm symptoms for hypoglycemia and hyperglcyemia. 5. [facility]. Contact office if any issues or concerns with patterns of hypoglycemia, hyperglycemia, or diabetes medication issues. 6. Prescriptions: None needed 08-30-2022. 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 She will follow-up August, Other VGO review, fills per NR [place] RN/ supply chain vice president. I have spent 30 minutes with this patient and over 50% of the visit was counseling done by myself, Marcela VAZQUEZ-Simi. [facility] Other 04-01-2023 History general Narrative - Reported* Type Description Date Medical History DM 2 Medical History HYPERTENSION Medical History DEPRESSION Medical History Opioid abuse Medical History retinopathy bilateral eyes Medical History cystic lesion esophagus 07/2022 B [facility] Surgical History RIGHT EYE SURGERY Surgical History LT eye surgery Surgical History hysterectomy 04/2017 Hospitalization History DKA 06/2019 Hospitalization History DKA 0 Hospitalization History [facility]-ER 4-2 023 [facility] Other 03-29-2023 Evaluation note* Encounter Date Diagnosis Assessment Notes Treatment Notes Treatment Clinical Notes Jun, Type 2 diabetes mellitus with hyperglycemia (ICD-10 - E11.65) Patient in today for review of blood glucose logs, food logs, and insulin dosing. Patient's Neris 2 was downloaded with ranges between lowest 66-400 highest for the past 14 days. Average reading 241 mg/dl. CGM active 77%. Time in ranges very high 46%, high 26%, target range 28%, low 0%, and very low 0%. Patient states she has been checking her blood sugars ac, hs with a glucose goal of 100-150 ac 150-200 hs. Patient currently taking Metformin 1000mg po bid, Ozempic 2mg SQ weekly, and V-Go 40 Aspart 1:25 correction scale, ICR 2-4-5-6 clicks per S-M-Lg-Xl size meals. Discussed meal examples with insulin doses from yesterday. Pt was unable to state exact number of clicks taken. Pt states she had black coffee at breakfast around 10am, blood glucose was 275 and took 2 clicks. According to scale pt should have taken 3 clicks. For lunch at 4pm, pt states she ate 2 square pieces of pizza, blood glucose was 104, and was unable to remember how many clicks she took. Suggested to pt may have needed to taken 2 clicks. Approximately 8pm, pt had 1 square slice of pizza and blood sugar was 186. Pt reports she took 4 clicks, instead of 2. Discussed with patient the importance of insulin compliance, especially the timing of insulin administration, before meals. Patient has been able to use corrective scale 1:25 before meals and insulin to carb ratio 2-4-5-6 according to meal size. Pt denies any other outside source of insulin administartion beyond her V-Go. Neris report downloaded and discussed with TAYLOR Killian. Per DCS for patient to continue with the same medication regimen without changes. Written information was provided. Discussed pt reaching out to the [employer] [facility]. Pt reports she missed her initial scheduled appointment due to a calender mix up, but is rescheduled for 08/10/22. Pt also states she switched PCP providers to Sonya Hardy from [facility]. Pt seems in high spirits regarding physician. Reports she was seen yesterday and has increased her antidepressant medication from 25mg to 50 mg. Pt states, I feel better with the higher dose, I actually wanting to do things I have not had interest in for a long time . Pt reports she is interested in swimming again and would like to purchase a pool soon. Pt reports she has been fasting since 8pm last evening and is to have bloodwork done today ordered by her PCP. Strongly encouraged patient to check glucose before meals, bedtime and using both insulin scales. Provided pt with encouragement to continue medication regimen as written. Pt denies any issues or problems with her Neris or V-Go at this time. All questions and concerns addressed. Encouraged to follow up for next appointment. 30 minutes was spent on education by Rosie CLARK, DINORAH [facility] [employer] Other 01-04-2023 Evaluation note* Encounter Date Diagnosis Assessment Notes Treatment Notes Treatment Clinical Notes Apr, Type 2 diabetes mellitus with hyperglycemia (ICD-10 - E11.65) Patient in today for review of blood glucose logs, food logs, and insulin dosing. Patient's Neris was downloaded with ranges between lowest 83-400 highest for the past 14 days. Average reading 261 mg/dl. CGM active 58%. Time in ranges very high 55%, high 25%, target range 20%, low 0%, and very low 0%. Patient states she has been checking her blood sugars ac, hs with a glucose goal of 90-130 ac 120-180 hs. Patient does know how to count carbs, discussed with patient the importance of insulin compliance. Pt reports she has been sick since [place] on 04/15/22 and is currently ill. States she took a Covid test, which was negative. Pt denies any steroid use, but is taking OTC cold medications including NyQuil, Mucinex, and Sudafed. Pt admits to skipping meals at times and delay in the change of V-Go system. Patient states she is taking meal dose insulin regularly, but evidence from glocose report shows otherwise. Patient is to use corrective scale 1:30 before meals and ICR 2-4-5-6 for s-m-lg-xl sized meals. Neris report downloaded and discussed with TAYLOR Killian. Blood glucose results are quite elevated. Pt states I may have forgotten to change my V-Go a couple of the days . Assessed patient's V-Go on her abdomen, which is loacated on right, lower quadrant of abdomen. Sticky residue seen from previous V-Go system on left upper quadrant of abdomen. Reminded pt to change sites each time V-Go placement changed. Per DCS for patient to continue same medication regimen Novolog with 2-4-5-6 units with s-m-l-xl sized meal ICR with intake. Continue Metformin 1000mg bid and Ozempic 1mg SQ injection weekly. Discussed meal planning examples and reviewed use of use of corrective scale. Strongly encouraged patient to check glucose before meals/bedtime as well as insulin compliance. Pt denies any issues or problems with her Neris or V-Go at this time. All questions and concerns addressed. Encouraged to follow up for next appointment. 30 minutes was spent on education by Rosie CLARK, RN [facility] Other 11-22-2022 Evaluation note* Encounter Date Diagnosis Assessment Notes Treatment Notes Treatment Clinical Notes Feb, Type 2 diabetes mellitus with hyperglycemia (ICD-10 - E11.65) Patient in today for review of blood glucose logs, food logs, and insulin dosing. Patient's Neris was downloaded with ranges between lowest 53-332 highest for the past 14 days. Average reading 146 mg/dl. CGM active 71%. Time in ranges very high 6%, high 18%, target range 71%, low 5%, and very low 0%. Patient states she has been checking her blood sugars ac, hs with a glucose goal of 90-130 ac 120-180 hs. Patient does know how to count carbs, reviewed several examples. Discussed with patient the importance of insulin compliance, especially the timing of insulin administration. Pt states there were times she gave insulin during the time of eating or just after meal consumption. Patient has been able to use V-Go 40 with corrective scale 1:30 before meals and insulin to carb ratio (4-5-6 clicks). Pt is also taking Metformin 1000mg po bid, and Ozempic 1mg SQ injection weekly. Neris report downloaded and discussed with TAYLOR Killian. Several lows noted on report. Recommends patient to be cautious of accurate carb calculations and dose V-Go clicks accordingly. Per DCS, patient to continue with medication regimen, no changes at this time. Written information was provided including 1:30 correction and ICR 4-5-6 clicks with Novolog. Discussed meal planning examples and reviewed use of use of corrective scale. Encouraged patient to check glucose before meals and bedtime. Pt denies any issues or problems with her Neris at this time. All questions and concerns addressed. Encouraged to follow up for next appointment in 4 weeks. 45 minutes was spent on education by Rosie CLARK, RN. [facility] Other 10-27-2022 Evaluation note* Encounter Date Diagnosis Assessment Notes Treatment Notes Treatment Clinical Notes Jan, Vitamin D deficiency (ICD-10 - E55.9) 04/28/2020 Vit d 20.1 start supplment Jan, Type 2 diabetes mellitus with hyperglycemia (ICD-10 - E11.65) 1315 BG 89 given LIZA and janet mckinnon. 1. Uncontrolled, a Type 2 diabetes with A1c of 10.2% down from 10.0 and GMI over 7 days 7.0% with some lows and variability 2. Continue VGO40, ISS to 1:25- given in clicks. Carb coverage fixed 2 clicks small, 4 clicks medium, 5 clicks large, 6 clicks extra-large. Tolerating Ozempic 1.0 mg weekly. Continue Metformin 1000 mg BID. Hold on SGLT2i_ _ patient with history of EUGLYCEMIC DKA IN THE PAST. _ __ _Increased vigilence and empowerment with Neris 2. Discussed how to watch average BG to predict A1c/ good glycemic control. She will present in 4 weeks for download with special education paraeducator and myself in 8 weeks. Patient did show continued improvement in surveillance of diabetes care. Provided significant amount of affirmation regarding her effort. VGO fail plan reviewed. She is continues changing VGO btween 9-11 am. Reports sleep habits are better. LIBRE2 CGM, BENEFITS from [employer] with alarms and reminders. Current Research shows that stamina with the current regime may fatigue, as would outcomes and CGM is equitable compaired to disease instability. Patient also uses VGO technology, has ICR and ISS treatment of BG which increases cumbersome nature of current regime. She also has cognitive limitations which impede planning and followthru. Libre2 will help her titrate medications and manage prandial BG. CGM usage is consistent with 202 ADA guidelines for IDDM. Note: history euglycemic dka while taking sglt2 and adverse gi s/e when taking glp1 _ _ will monitor closely RTC 4 weeks DL with DE and SUPPLY REVIEW. 8 Weeks DCS 3. TOPICS REVIEWED: 1. Time was spent reviewing: a. Basic concepts of diabetes, progressive beta cell , concepts of basal/bolus/correct bart insulin requirements. Basal: The goal is fasting blood glucose of 90-130mg. IF fasting blood glucose starts to run under 100mg 3x's/ week, decrease dose by 10%. Bolus: The goal is to hold the blood glucose level steady meal to meal. If pt. is going to have increased physical activity after a meal, decrease the schedule meal dose prior to the activity by 30-50%. If pt. skips a meal do not take this dose. Correction: The goal is to correct an elevated glucose back into the 100-150mg range b. Nutrition: Concepts of healthy diet, encouraged to decrease saturated fat in diet and increase non-starchy vegetables and fruits in diet. BMI: Pt. needs to select one small change to decrease caloric intake or increase physical activity to help decrease weight. c. Correct treatment of hypoglycemia, carry a glucose source at all times on your person, in vehicles, and at bedside. Can use glucose tablets/4, four ounces of pop or juice equal to 15 G of carbohydrate. Blood glucose should be 100 mg/dl or higher when driving. d. ADA glucose goals for age and medical complexity reviewed e. Patient questions addressed 2. Activity/exercise: Encouraged to start any form of physical activity. Start low level and increase slowly to a minimal goal of 150 minutes/week. Limit activity to what is allowed by other issues such as cardiac, pulmonary or orthopedic restrictions. 3. Standards of care: Reminded to have an annual dilated eye exam, A1C every 3 months, urine testing for microalbumin once/year, check feet daily and report any cuts or sores that do not appear to be healing. 4. Meter: Plan to check blood glucose: Please check blood glucose levels 4 times/day. Back to back meals reveal effectiveness of bolus dosing. The blood glucose data is used to determine insulin doses and confirm symptoms for hypoglycemia and hyperglcyemia. The blood glucose data is used to determine insulin doses, and confirm symptoms for hypoglycemia and hyperglcyemia. 5. [facility]. Contact office if any issues or concerns with patterns of hypoglycemia, hyperglycemia, or diabetes medication issues. 6. Prescriptions: no refills needed today 12/27/2021. 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) Jan, Vitamin B 12 deficiency (ICD-10 - E53.8) 07/2021 recommend otc b12 1000 mcg QOD Jan, Hypoglycemia associated with type 2 diabetes mellitus (ICD-10 - E11.649) see above Jan, Nausea & vomiting (ICD-10 - R11.2) Jan, BMI 40.0-44.9, adult (ICD-10 - Z68.41) down 3 lbs Jan, Depression (ICD-10 - F32.9) Continue Sertriline Jan, Autism spectrum disorder (ICD-10 - F84.0) Jan, ADHD (ICD-10 - F90.9) NEEDS SIMPLE STEPS-- PRAISE/ AFFIRMATION FOR PROGRESS Jan, Callus of toe (ICD-10 - L84) refer to podiatry Jan, Other I have spent 30 minutes with this patient and over 50% of the visit was counseling done by myself, Marcela AMANDA. 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 Right eye with progress in PSC, but pt still does not drive and having no glare issues. - Patient notes some glare OD but prefers to observe for now I have seen and examined this patient. I have confirmed and edited as necessary the relevant ophthalmic history, medications, ROS, and the neuro and ophthalmic exam findings as obtained by others andmyself. I have discussed the case and the management of this patient's care with the attending Physician, if applicable. I also have reviewed and agree with the assessment and plan as stated above and agree with all of its relevant components. I have discussed the treatment alternatives with the patient and the patient's family, if applicable. Follow-up as noted below, or sooner if new symptoms develop. [facility]* Encounter Date Diagnosis Assessment Notes Treatment Notes Treatment Clinical Notes Jan, Type 2 diabetes mellitus with hyperglycemia (ICD-10 - E11.65) Tasha came in today for download of her Neris and evaluation of the report. During the last 2 weeks her average BG was 186, She was in range 51% , high 35%, very high 14%, and 0% low. When Tasha uses her V-go her BG is in good control. It appears that the issue is when she is sleeping at 6am and doesn't change the device on time. She sometimes goes to bed at 3-4am and doesn't get up until 4-5 in the afternoon. Her BG rises when she is not getting the Basal insulin from the V-go. She is always awake at 6pm according to the report. She is going to change the V-go tonight at 6pm and continue to do so moving forward. 30 minutes were spent evaluating the patient's report and discussing the results with the patient by Heriberto Downs RN, [facility]. [facility] Other 06-07-2022 Evaluation note* Encounter Date Diagnosis Assessment Notes Treatment Notes Treatment Clinical Notes Sep, Vitamin D deficiency (ICD-10 - E55.9) 04/28/2020 Vit d 20.1 start supplment Sep, Type 2 diabetes mellitus with hyperglycemia (ICD-10 - E11.65) 1. Uncontrolled, a Type 2 diabetes with A1c of 8.5% down from 10.0 and GMI over 7 days 7.0% with some lows and variability 2. Continue VGO40, ISS softened to 1:30 from 1:25- given in clicks. No ICR. Tolerating Ozempic 0.50 mg weekly. Continue Metformin 1000 mg BID. Hold on SGLT2i_ _ patient with history of EUGLYCEMIC DKA IN THE PAST. _ __ _Increased vigilence and empowerment with Neris 2. Discussed how to watch average BG to predict A1c/ good glycemic control. Patient did show continued improvement in surveillance of diabetes care. Provided significant amount of affirmation regarding her effort. VGO fail plan reviewed. She is continues changing VGO btween 9-11 am. Reports sleep habits are better. LIBRE2 CGM, BENEFITS from [employer] with alarms and reminders. Current Research shows that stamina with the current regime may fatigue, as would outcomes and CGM is equitable compaired to disease instability. Patient also uses VGO technology, has ICR and ISS treatment of BG which increases cumbersome nature of current regime. She also has cognitive limitations which impede planning and followthru. Libre2 will help her titrate medications and manage prandial BG. CGM usage is consistent with 2021 ADA guidelines for IDDM. Note: history euglycemic dka while taking sglt2 and adverse gi s/e when taking glp1 _ _ will monitor closely-- currently tolerating Ozempic_ _ will continue slow titration. 8 week download with DE then 3 mos with provider 3. TOPICS REVIEWED: 1. Time was spent reviewing: a. Basic concepts of diabetes, progressive beta cell , concepts of basal/bolus/correct bart insulin requirements. Basal: The goal is fasting blood glucose of 90-130mg. IF fasting blood glucose starts to run under 100mg 3x's/ week, decrease dose by 10%. Bolus: The goal is to hold the blood glucose level steady meal to meal. If pt. is going to have increased physical activity after a meal, decrease the schedule meal dose prior to the activity by 30-50%. If pt. skips a meal do not take this dose. Correction: The goal is to correct an elevated glucose back into the 100-150mg range b. Nutrition: Concepts of healthy diet, encouraged to decrease saturated fat in diet and increase non-starchy vegetables and fruits in diet. BMI: Pt. needs to select one small change to decrease caloric intake or increase physical activity to help decrease weight. c. Correct treatment of hypoglycemia, carry a glucose source at all times on your person, in vehicles, and at bedside. Can use glucose tablets/4, four ounces of pop or juice equal to 15 G of carbohydrate. Blood glucose should be 100 mg/dl or higher when driving. d. ADA glucose goals for age and medical complexity reviewed e. Patient questions addressed 2. Activity/exercise: Encouraged to start any form of physical activity. Start low level and increase slowly to a minimal goal of 150 minutes/week. Limit activity to what is allowed by other issues such as cardiac, pulmonary or orthopedic restrictions. 3. Standards of care: Reminded to have an annual dilated eye exam, A1C every 3 months, urine testing for microalbumin once/year, check feet daily and report any cuts or sores that do not appear to be healing. 4. Meter: Plan to check blood glucose: Please check blood glucose levels 4 times/day. Back to back meals reveal effectiveness of bolus dosing. The blood glucose data is used to determine insulin doses and confirm symptoms for hypoglycemia and hyperglcyemia. The blood glucose data is used to determine insulin doses, and confirm symptoms for hypoglycemia and hyperglcyemia. 5. [facility]. Contact office if any issues or concerns with patterns of hypoglycemia, hyperglycemia, or diabetes medication issues. 6. Prescriptions: no refills needed today 09-27-21 {uses [facility]} Sep, Encounter for medication monitoring (ICD-10 - Z51.81) Sep, Dietary counseling and surveillance (ICD-10 - Z71.3) Learning About Healthy Weight material was published to portal Sep, Hyperlipidemia (ICD-10 - E78.5) 04/28/2020 ldl 148, trig 418. start statin, repeat labs Reviewed with pt need for contraception while taking medication, risk anomalies if becomes Sep, HTN (hypertension) (ICD-10 - I10) f/u with pcp Sep, longterm current use of insulin (ICD-10 - Z79.4) Sep, Vitamin B 12 deficiency (ICD-10 - E53.8) 07/2021 recommend otc b12 1000 mcg QOD Sep, Hypoglycemia associated with type 2 diabetes mellitus (ICD-10 - E11.649) see above Sep, Nausea & vomiting (ICD-10 - R11.2) Sep, BMI 40.0-44.9, adult (ICD-10 - Z68.41) down 3 lbs Sep, Depression (ICD-10 - F32.9) Continue Sertriline Sep, Autism spectrum disorder (ICD-10 - F84.0) Sep, ADHD (ICD-10 - F90.9) NEEDS SIMPLE STEPS-- PRAISE/ AFFIRMATION FOR PROGRESS Sep, Callus of toe (ICD-10 - L84) refer to podiatry Sep, Other I have spent 30 minutes with this patient and over 50% of the visit was counseling done by myself, Marcela AMANDA. [employer] Other 04-27-2022 Evaluation note* Encounter Date Diagnosis Assessment Notes Treatment Notes Treatment Clinical Notes Jul, Type 2 diabetes mellitus with hyperglycemia (ICD-10 - E11.65) Patient in today for review of blood glucose logs, food logs, and insulin dosing. Patient's personal meter was downloaded with ranges between lowest 64-333 highest for the past 8 days. Pt had Neris sensor until 2-3 weeks ago, but discontinued wearing CGM. Pt did not bring her Neris reader to today's visit, but did bring glucometer. Pt prefers to monitor blood glucose with meter. Average reading 163 mg/dl. Patient does know how to count carbs, discussed with patient the importance of insulin compliance and checking glucose ac,hs. Patient has been able to use corrective scale 1:25 before meals and insulin to carb ratio 4-5-6 clicks (2 units/click) with V-Go 40 according to meals. [place] report downloaded and discussed with TAYLOR Killian. A few lows noted, pt states lows occurred while she was cleaning and walking on treadmill. Per DCS for patient to continue current medications as prescribed, including Metformin 1000mg po bid. 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 Pt agrees with plan. Pt states she has experienced minimal diarrhea at times, but no other symptoms or concerns. Discussed meal planning examples and reviewed use of use of corrective scale. Encouraged to continue insulin and testing glucose before meals and bedtime. All questions and concerns addressed. Encouraged to follow up for next appointment. 30 minutes was spent on education by Rosie CLARK, RN. [facility] Other 04-13-2022 Evaluation note* Encounter Date Diagnosis Assessment Notes Treatment Notes Treatment Clinical Notes Jul, Type 2 diabetes mellitus with hyperglycemia (ICD-10 - E11.65) [facility] [facility] Other 04-12-2022 Evaluation note* Encounter Date Diagnosis Assessment Notes Treatment Notes Treatment Clinical Notes Jul, Vitamin D deficiency (ICD-10 - E55.9) 04/28/2020 Vit d 20.1 start supplment Jul, Type 2 diabetes mellitus with hyperglycemia (ICD-10 - E11.65) 1. Uncontrolled, a Type 2 diabetes with A1c of 10.0% 2. Continue VGO40, ISS 1:25- given in clicks. No ICR. Tolerating Ozempic 0.25 mg weekly, x 1 episode of emesis after chadian food. If tolerating without further episodes of emesis can increase at DSME visit to 0.5 mg weekly. Discuss sick day management with patient, needs further review. Hold on SGLT2i_ _ patient with history of EUGLYCEMIC DKA IN THE PAST. _ __ _Blood glucoses have remained elevated, but seems to have increased vigilence. Following up on LIBRE2 SYSTEM from [employer] (has used Libre14 day in the past and insurance has changed since). She is currently doing fingersticks using freestyle neris as glucometer. Patient did show continued improvement in surveillance of diabetes care. Provided significant amount of affirmation regarding her effort. VGO fail plan reviewed. She is now changing VGO btween 9-11 am, she has started to sleep better and implement more routine. She is proud of this fact. She is able to articulate # clicks for BG coverage, but admits to < 100% ISS and ICR. We reviewed importance. LIBRE2 CGM, would benefit from Libre2 with alarms and reminders. Current Research shows that stamina with the current regime may fatigue, as would outcomes and CGM is equitable compaired to disease instability. Patient also uses VGO technology, has ICR and ISS treatment of BG which increases cumbersome nature of current regime. She also has cognitive limitations which impede planning and followthru. Libre2 will help her titrate medications and manage prandial BG. CGM usage is consistent with 202 ADA guidelines for IDDM. Note: history euglycemic dka while taking sglt2 and adverse gi s/e when taking glp1 _ _ will monitor closely since Tolerating Ozempic-- will continue slow titration. 3. TOPICS REVIEWED: 1. Time was spent reviewing: a. Basic concepts of diabetes, progressive beta cell , concepts of basal/bolus/correct bart insulin requirements. Basal: The goal is fasting blood glucose of 90-130mg. IF fasting blood glucose starts to run under 100mg 3x's/ week, decrease dose by 10%. Bolus: The goal is to hold the blood glucose level steady meal to meal. If pt. is going to have increased physical activity after a meal, decrease the schedule meal dose prior to the activity by 30-50%. If pt. skips a meal do not take this dose. Correction: The goal is to correct an elevated glucose back into the 100-150mg range b. Nutrition: Concepts of healthy diet, encouraged to decrease saturated fat in diet and increase non-starchy vegetables and fruits in diet. BMI: Pt. needs to select one small change to decrease caloric intake or increase physical activity to help decrease weight. c. Correct treatment of hypoglycemia, carry a glucose source at all times on your person, in vehicles, and at bedside. Can use glucose tablets/4, four ounces of pop or juice equal to 15 G of carbohydrate. Blood glucose should be 100 mg/dl or higher when driving. d. ADA glucose goals for age and medical complexity reviewed e. Patient questions addressed 2. Activity/exercise: Encouraged to start any form of physical activity. Start low level and increase slowly to a minimal goal of 150 minutes/week. Limit activity to what is allowed by other issues such as cardiac, pulmonary or orthopedic restrictions. 3. Standards of care: Reminded to have an annual dilated eye exam, A1C every 3 months, urine testing for microalbumin once/year, check feet daily and report any cuts or sores that do not appear to be healing. 4. Meter: Plan to check blood glucose: Please check blood glucose levels 4 times/day. Back to back meals reveal effectiveness of bolus dosing. The blood glucose data is used to determine insulin doses and confirm symptoms for hypoglycemia and hyperglcyemia. The blood glucose data is used to determine insulin doses, and confirm symptoms for hypoglycemia and hyperglcyemia. 5. [facility] Contact office if any issues or concerns with patterns of hypoglycemia, hyperglycemia, or diabetes medication issues. 6. Prescriptions: Per patient needs Metformin sent to [facility] Jul, Encounter for medication monitoring (ICD-10 - Z51.81) Jul, Dietary counseling and surveillance (ICD-10 - Z71.3) [facility] [employer] material was published to portal Jul, Hyperlipidemia (ICD-10 - E78.5) 04/28/2020 ldl 148, trig 418. start statin, repeat labs Reviewed with pt need for contraception while taking medication, risk anomalies if becomes Jul, HTN (hypertension) (ICD-10 - I10) f/u with pcp Jul, longterm current use of insulin (ICD-10 - Z79.4) Jul, Vitamin B 12 deficiency (ICD-10 - E53.8) 04/2020 Vit b 12 247 recommend otc b12 1000 mcg once daily Jul, Hypoglycemia associated with type 2 diabetes mellitus (ICD-10 - E11.649) see above Jul, Nausea & vomiting (ICD-10 - R11.2) Jul, BMI 40.0-44.9, adult (ICD-10 - Z68.41) Jul, Depression (ICD-10 - F32.9) Continue Sertriline Jul, Autism spectrum disorder (ICD-10 - F84.0) Jul, ADHD (ICD-10 - F90.9) NEEDS SIMPLE STEPS-- PRAISE/ AFFIRMATION FOR PROGRESS Jul, Other I have spent 30 minutes with this patient and over 50% of the visit was counseling done by myself, Marcela AMANDA. [facility] Other 03-28-2022 Evaluation note* Encounter Date Diagnosis Assessment Notes Treatment Notes Treatment Clinical Notes Jun, Type 2 diabetes mellitus with hyperglycemia (ICD-10 - E11.65) [facility] Other 03-15-2022 Evaluation note* Encounter Date Diagnosis Assessment Notes Treatment Notes Treatment Clinical Notes Jun, Vitamin D deficiency (ICD-10 - E55.9) 04/28/2020 Vit d 20.1 start supplment Jun, Type 2 diabetes mellitus with hyperglycemia (ICD-10 - E11.65) ozempic sampled today. patient took starting dose 0.25mg sq successfully with minimal cues 1. Uncontrolled, a Type 2 diabetes with A1c of 10.0% 2. Blood glucoses have remained elevated. Patient did show continued improvement in surveillance of diabetes care. Provided significant amount of affirmation regarding her effort. VGO fail plan reviewed. She is now changing VGO btween 9-11 am, she has started to sleep better and implement more routine. She is proud of this fact. She is able to articulate # clicks for BG coverage, but admits to < 100% ISS and ICR. We reviewed importance. She is often checking blood glucose hourly, she denies coverage hourly but discussed meaningful BG is am fasting AC/HS and PRN feeling unwell. I will see her in clinic at regular intervals to provide support, affirmation and reinforcement of diabetes managment. Ozempic started today to assist with decreaseing insulin needs. Tasha has historically had [employer] CGM, would benefit from Libre2 with alarms and reminders. Research shows that stamina with the current regime may fatigue, as would outcomes and CGM is equitable compaired to disease instability. Patient also uses VGO technology, has ICR and ISS treatment of BG which increases cumbersome nature of current regime. She also has cognitive limitations which impede planning and followthru. Libre2 will help her titrate medications and manage prandial BG. CGM usage is consistent with 2021 ADA guidelines for IDDM. Note: history euglycemic dka while taking sglt2 and adverse gi s/e when taking glp1 -- will monitor closely since starting Ozempic today and titrate slowly 3. TOPICS REVIEWED: 1. Time was spent reviewing: a. Basic concepts of diabetes, progressive beta cell , concepts of basal/bolus/correc tive insulin requirements. Basal: The goal is fasting blood glucose of 90-130mg. IF fasting blood glucose starts to run under 100mg 3x's/ week, decrease dose by 10%. Bolus: The goal is to hold the blood glucose level steady meal to meal. If pt. is going to have increased physical activity after a meal, decrease the schedule meal dose prior to the activity by 30-50%. If pt. skips a meal do not take this dose. Correction: The goal is to correct an elevated glucose back into the 100-150mg range b. Nutrition: Concepts of healthy diet, encouraged to decrease saturated fat in diet and increase non-starchy vegetables and fruits in diet. BMI: Pt. needs to select one small change to decrease caloric intake or increase physical activity to help decrease weight. c. Correct treatment of hypoglycemia, carry a glucose source at all times on your person, in vehicles, and at bedside. Can use glucose tablets/4, four ounces of pop or juice equal to 15 G of carbohydrate. Blood glucose should be 100 mg/dl or higher when driving. d. ADA glucose goals for age and medical complexity reviewed e. Patient questions addressed 2. Activity/exercise: Encouraged to start any form of physical activity. Start low level and increase slowly to a minimal goal of 150 minutes/week. Limit activity to what is allowed by other issues such as cardiac, pulmonary or orthopedic restrictions. 3. Standards of care: Reminded to have an annual dilated eye exam, A1C every 3 months, urine testing for microalbumin once/year, check feet daily and report any cuts or sores that do not appear to be healing. 4. Meter: Plan to check blood glucose: Please check blood glucose levels 4 times/day. Back to back meals reveal effectiveness of bolus dosing. The blood glucose data is used to determine insulin doses and confirm symptoms for hypoglycemia and hyperglcyemia. The blood glucose data is used to determine insulin doses, and confirm symptoms for hypoglycemia and hyperglcyemia. 5. [facility]. Contact office if any issues or concerns with patterns of hypoglycemia, hyperglycemia, or diabetes medication issues. 6. Prescriptions: Per patient needs Metformin and Novolog sent to [facility] Jun, Encounter for medication monitoring (ICD-10 - Z51.81) Jun, Dietary counseling and surveillance (ICD-10 - Z71.3) [facility] [employer] [facility] material was published to portal Jun, Hyperlipidemia (ICD-10 - E78.5) 04/28/2020 ldl 148, trig 418. 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 [facility] Other 03-15-2022 Evaluation note* Encounter Date Diagnosis Assessment Notes Treatment Notes Treatment Clinical Notes Jun, Vitamin D deficiency (ICD-10 - E55.9) 04/28/2020 Vit d 20.1 start supplment Jun, Type 2 diabetes mellitus with hyperglycemia (ICD-10 - E11.65) 1. Uncontrolled, a Type 2 diabetes with A1c of 10.0% 2. Blood glucoses have remained elevated. Patient did show continued improvement in surveillance of diabetes care. Provided significant amount of affirmation regarding her effort. VGO fail plan reviewed. She is now changing VGO btween 9-11 am, she has started to sleep better and implement more routine. She is proud of this fact. She is able to articulate # clicks for BG coverage, but admits to < 100% ISS and ICR. We reviewed importance. She is often checking blood glucose hourly, she denies coverage hourly but discussed meaningful BG is am fasting AC/HS and PRN feeling unwell. I will see her in clinic at regular intervals to provide support, affirmation and reinforcement of diabetes managment. Tasha has historically had [employer] CGM, would benefit from Libre2 with alarms and reminders. Research shows that stamina with the current regime may fatigue, as would outcomes and CGM is equitable compaired to disease instability. Patient also uses VGO technology, has ICR and ISS treatment of BG which increases cumbersome nature of current regime. She also has cognitive limitations which impede planning and followthru. Libre2 will help her titrate medications and manage prandial BG. CGM usage is consistent with 2021 ADA guidelines for IDDM. Note: history euglycemic dka while taking sglt2 and adverse gi s/e when taking glp1 3. TOPICS REVIEWED: 1. Time was spent reviewing: a. Basic concepts of diabetes, progressive beta cell , concepts of basal/bolus/correct brat insulin requirements. Basal: The goal is fasting blood glucose of 90-130mg. IF fasting blood glucose starts to run under 100mg 3x's/ week, decrease dose by 10%. Bolus: The goal is to hold the blood glucose level steady meal to meal. If pt. is going to have increased physical activity after a meal, decrease the schedule meal dose prior to the activity by 30-50%. If pt. skips a meal do not take this dose. Correction: The goal is to correct an elevated glucose back into the 100-150mg range b. Nutrition: Concepts of healthy diet, encouraged to decrease saturated fat in diet and increase non-starchy vegetables and fruits in diet. BMI: Pt. needs to select one small change to decrease caloric intake or increase physical activity to help decrease weight. c. Correct treatment of hypoglycemia, carry a glucose source at all times on your person, in vehicles, and at bedside. Can use glucose tablets/4, four ounces of pop or juice equal to 15 G of carbohydrate. Blood glucose should be 100 mg/dl or higher when driving. d. ADA glucose goals for age and medical complexity reviewed e. Patient questions addressed 2. Activity/exercise: Encouraged to start any form of physical activity. Start low level and increase slowly to a minimal goal of 150 minutes/week. Limit activity to what is allowed by other issues such as cardiac, pulmonary or orthopedic restrictions. 3. Standards of care: Reminded to have an annual dilated eye exam, A1C every 3 months, urine testing for microalbumin once/year, check feet daily and report any cuts or sores that do not appear to be healing. 4. Meter: Plan to check blood glucose: Please check blood glucose levels 4 times/day. Back to back meals reveal effectiveness of bolus dosing. The blood glucose data is used to determine insulin doses and confirm symptoms for hypoglycemia and hyperglcyemia. The blood glucose data is used to determine insulin doses, and confirm symptoms for hypoglycemia and hyperglcyemia. 5. [facility]. Contact office if any issues or concerns with patterns of hypoglycemia, hyperglycemia, or diabetes medication issues. 6. Prescriptions: Per patient needs Metformin and Novolog sent to [facility] Jun, Encounter for medication monitoring (ICD-10 - Z51.81) Jun, Dietary counseling and surveillance (ICD-10 - Z71.3) [facility] [employer] Weight material was published to portal Jun, Hyperlipidemia (ICD-10 - E78.5) 04/28/2020 ldl 148, trig 418. 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 [facility] Other 01-05-2022 Evaluation note* Encounter Date Diagnosis Assessment Notes Treatment Notes Treatment Clinical Notes Apr, Type 2 diabetes mellitus with hyperglycemia (ICD-10 - E11.65) [facility] Other 12-20-2021 Evaluation note* Encounter Date Diagnosis Assessment Notes Treatment Notes Treatment Clinical Notes Mar, Vitamin D deficiency (ICD-10 - E55.9) 04/28/2020 Vit d 20.1 start supplment Mar, Type 2 diabetes mellitus with hyperglycemia (ICD-10 - E11.65) 1. Uncontrolled, a Type 2 diabetes with A1c of 9.3% 2. Blood glucoses have remained elevated. Patient did show continued improvement in surveillance of diabetes care. Provided significant amount of affirmation regarding her effort. VGO fail plan reviewed. She is now changing VGO btween 9-11 am, she has started to sleep better and implement more routine. She is proud of this fact. She is able to articulate # clicks for BG coverage, but admits to < 100% ISS and ICR. We reviewed importance. She is often checking blood glucose hourly, she denies coverage hourly but discussed meaningful BG is am fasting AC/HS and PRN feeling unwell. I will see her in clinic at regular intervals to provide support, affirmation and reinforcement of diabetes managment. Note: history euglycemic dka while taking sglt2 and adverse gi s/e when taking glp1 3. TOPICS REVIEWED: 1. Time was spent reviewing: a. Basic concepts of diabetes, progressive beta cell , concepts of basal/bolus/correct bart insulin requirements. Basal: The goal is fasting blood glucose of 90-130mg. IF fasting blood glucose starts to run under 100mg 3x's/ week, decrease dose by 10%. Bolus: The goal is to hold the blood glucose level steady meal to meal. If pt. is going to have increased physical activity after a meal, decrease the schedule meal dose prior to the activity by 30-50%. If pt. skips a meal do not take this dose. Correction: The goal is to correct an elevated glucose back into the 100-150mg range b. Nutrition: Concepts of healthy diet, encouraged to decrease saturated fat in diet and increase non-starchy vegetables and fruits in diet. BMI: Pt. needs to select one small change to decrease caloric intake or increase physical activity to help decrease weight. c. Correct treatment of hypoglycemia, carry a glucose source at all times on your person, in vehicles, and at bedside. Can use glucose tablets/4, four ounces of pop or juice equal to 15 G of carbohydrate. Blood glucose should be 100 mg/dl or higher when driving. d. ADA glucose goals for age and medical complexity reviewed e. Patient questions addressed 2. Activity/exercise: Encouraged to start any form of physical activity. Start low level and increase slowly to a minimal goal of 150 minutes/week. Limit activity to what is allowed by other issues such as cardiac, pulmonary or orthopedic restrictions. 3. Standards of care: Reminded to have an annual dilated eye exam, A1C every 3 months, urine testing for microalbumin once/year, check feet daily and report any cuts or sores that do not appear to be healing. 4. Meter: Plan to check blood glucose: Please check blood glucose levels 4 times/day. Back to back meals reveal effectiveness of bolus dosing. The blood glucose data is used to determine insulin doses and confirm symptoms for hypoglycemia and hyperglcyemia. The blood glucose data is used to determine insulin doses, and confirm symptoms for hypoglycemia and hyperglcyemia. 5. [facility]. Contact office if any issues or concerns with patterns of hypoglycemia, hyperglycemia, or diabetes medication issues. 6. Prescriptions: None needed. Mar, Encounter for medication monitoring (ICD-10 - Z51.81) Mar, Dietary counseling and surveillance (ICD-10 - Z71.3) [facility] [employer] Weight material was published to portal Mar, Hyperlipidemia (ICD-10 - E78.5) 04/28/2020 ldl 148, trig 418. 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 [facility] Other 11-22-2021 Evaluation note* Encounter Date Diagnosis Assessment Notes Treatment Notes Treatment Clinical Notes Feb, Type 2 diabetes mellitus with hyperglycemia (ICD-10 - E11.65) [facility] Other [id number] History of Past illness Narrative* Problem Noted Date Resolved Date Diabetes 08/02/2016 documented as of this encounter (statuses as of 01/31/2022) [facility]04-12-2017 History of Past illness Narrative* Problem Noted Date Diagnosed Date Resolved Date Diabetes 08/02/2016 documented as of this encounter (statuses as of 08/08/2023) [facility]No assessment information availableOhio[facility] CtrEvaluation noteNort [employer] Other Evaluation noteNo InformationNoun[facility] [employer] Other Evaluation note* Diagnosis 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, unspecified whether half-way insulin use (HCC)- Primary Nuclear sclerotic cataract, bilateral 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, bilateral documented in this encounter [facility] note* Diagnosis Mixed hyperlipidemia (CMS/HCC)- Primary Mixed hyperlipidemia [facility]* Diagnosis Encounter for subsequent annual wellness visit (AWV) in Medicare patient- Primary Encounter for screening mammogram for malignant neoplasm of breast Primary hypertension ([facility]) Unspecified essential hypertension Gastroesophageal reflux disease, unspecified whether esophagitis present 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, with long-term current use of insulin, macular edema presence unspecified, unspecified laterality, unspecified proliferative retinop* ([facility]) Class 3 severe obesity due to excess calories without serious comorbidity with body mass index (BMI) of 40.0 to 44.9 in adult ([facility]) Anxiety and depression ([facility]) longterm (current) use of insulin (Z79.4) Colon cancer screening Special screening for malignant neoplasms, colon [facility] Diagnosis 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 Work Phone: Evaluation note* Diagnosis Onset Date Resolution Status Type 2 diabetes mellitus with hyperglycemia acute ADHD acute BMI 40.0-44.9, adult acute Fatty liver acute 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 disease) acute longterm current use of insulin acute Noncompliance with medication regimen acute Retinopathy of both eyes acu te Type 2 diabetes mellitus with hyperglycemia acute Weight gain acute [facility] Work Phone: Evaluation note* Diagnosis Onset Date Resolution Status ADHD acute BMI 40.0-44.9, adult acute Fatty liver acute 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 disease) acute longterm current use of insulin acute Noncompliance with medication regimen acute Retinopathy of both eyes acu te Type 2 diabetes mellitus with hyperglycemia acute Weight gain acute Type 2 diabetes mellitus with hyperglycemia acute [facility] Work Phone: Evaluation note* Diagnosis Onset Date Resolution Status Type 2 diabetes mellitus with hyperglycemia acute ADHD acute BMI 40.0-44.9, adult acute Fatty liver acute 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 disease) acute longterm current use of insulin acute Noncompliance with medication regimen acute Retinopathy of both eyes acu te Type 2 diabetes mellitus with hyperglycemia acute Weight gain acute Type 2 diabetes mellitus with hyperglycemia acute [facility] Work Phone: History general Narrative - Reported* Type Description Date Medical History DM 2 Medical History HYPERTENSION Medical History DEPRESSION Medical History Opioid abuse Medical History retinopathy bilateral eyes Surgical History RIGHT EYE SURGERY Surgical History LT eye surgery Surgical History hysterectomy 04/2017 Hospitalization History DKA 06/2019 Hospitalization History DKA 0 [facility] [employer] Other History general [facility]ative - [facility] [employer] Other Chief Complaint and Reason for Visit Chief Complaint DM Screening Chief Complaint e11.65 e78.5 DM Chief Complaint DM K59.00 Unspecified Constipation/spes drop Chief Complaint DM Chief Complaint DM DMN f/u / meter Reason for Visit Type 2 diabetes marti itus with hyperglycemia Chief Complaint DM DMN f/u / meter E11.65 Reason for Visit Type 2 diabetes marti itus with hyperglycemia ADHD BMI 40.0-44.9, adult Fatty liver 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 disease) 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 Noncompliance with medication regimen Retinopathy of both eyes Type 2 diabetes mellitus with hyperglycemia Weight gain Chief Complaint DMN f/u / meter E11.65 DL per DS Reason for Visit ADHD BMI 40.0-44.9, adult Fatty liver 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 disease) 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 Noncompliance with medication regimen Retinopathy of both eyes Type 2 diabetes mellitus with hyperglycemia Weight gain Type 2 diabetes mellitus with hyperglycemia Chief Complaint DL per DS DMN f/u / meter Reason for Visit Type 2 diabetes marti itus with hyperglycemia ADHD BMI 40.0-44.9, adult Fatty liver 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 disease) longterm current use of insulin Noncompliance with medication regimen Retinopathy of both eyes Type 2 diabetes mellitus with hyperglycemia Weight gain Chief Complaint DL per DS DMN f/u / meter 2 week DL Reason for Visit Type 2 diabetes marti itus with hyperglycemia ADHD BMI 40.0-44.9, adult Fatty liver 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 disease) 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 Noncompliance with medication regimen Retinopathy of both eyes Type 2 diabetes mellitus with hyperglycemia Weight gain Type 2 diabetes mellitus with hyperglycemia Advance Directives Advance Directive Response Recorded Date/ Time Advance Directives No January 31, 2018 4:17pm Advance Directive Response Recorded Date/ Time Advance Directives No January 31, 2018 3:17pm Reason for Referral Reason Establish Diabetic F oot Care, Callous on left big toe Diagnosis 1 Type 2 diabetes marti itus with hyperglycemia (E11.65) Diagnosis 2 Callus of toe (L84) Referral Organization [facility] Referring Provider First Name Glenna Referring Provider Last Name Joni Referring Provider Specialty Nurse Practristen perdomo Referred Organization Podiatry Referred Address [address],[place],[address] Referred Provider Specialty Podiatry - S urgical Chiropody Referral Priority Routine General Notes Glenna Calvo 09/21 01:17:35 PM > Note not closed yet Summary Purpose Family History Relationship Condition Age at Onset Recorded Date/T jocy Not Specified Family history unknown Unknown father Diabetes mellitus Unknown Not Specified Diabetes mellitus Unknown No Family History Records Found Additional Source Comments Goals (unrecognized section and content) Goals may be documented in a n alternate sectionNo InformationNo InformationNo InformationNo InformationNo InformationNo InformationNo InformationNo InformationNo InformationNo InformationNo InformationNo InformationNo InformationNo InformationNo InformationNo InformationNo InformationNo InformationNo InformationNo InformationNo InformationNo InformationNo InformationNo InformationNo InformationNo InformationGoals may be documented in an alternate sectionNo InformationNo InformationNo InformationNo InformationNo InformationNo InformationNo InformationNo InformationNo InformationNo InformationNo InformationGoals may be documented in an alternate sectionGoals may be documented in an alternate sectionGoals may be documented in an alternate sectionGoals may be documented in an alternate sectionGoals may be documented in an alternate sectionGoals may be documented in an alternate section REASON FOR VISIT (unrecogniz ed section and content) Reason Comments Diabetic Retinopathy Follow Up Reason Comments Med Refill Reason Comments Proliferative Diabetic Retinopathy Follo w Up Source Comments (unrecognize d section and content) In the event this informatio n is protected by the Federal Confidentiality of Alcohol and Drug Abuse Patient Records regulations: The Federal rules restrict any use of the information to criminally investigate or prosecute any alcohol or drug abuse patient.[facility] the event this information is protected by the Federal Confidentiality of Alcohol and Drug Abuse Patient Records regulations: The Federal rules restrict any use of the information to criminally investigate or prosecute any alcohol or drug abuse patient.[facility] Care Teams (unrecognized sec tion and content) Team Status: Active Member Role Status Dates Sonya Mejia Primary Care Provider Active Team Status: Inactive Member Role Status Dates Services [facility] Primary Care Provider Active Start: May 28, 2023 End: May 28, 2023 Mariam Beyer APRN Attending Provider Active Start: May 28, 2023 End: May 28, 2023 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 Start Date End Date Jessica Owens MD [address] [place] [address] PCP - General Family Medicine 06/07/18 Team Status: Active Member Role Status Dates Services [facility] Primary Care Provider Active Mariam Beyer APRN Attending Provider Active Team Status: Inactive Member Role Status Dates Sonya Mejia Primary Care Provider Active Glenna Quinones APRN Attending Provider Active Team Status: Inactive Member Role Status Dates Sonya Mejia Primary Care Provider Active Mark Gramajo APRN Attending Provider Active 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 Start Date End Date Abad Garcia MD PCP - General Family Medicine 11/13/22 Sonya Mejia NP [address] [place] [address] Referring Physician Nurse Practitioner 11/13/22 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 Start Date End Date Abad Garcia MD [address] [place] [phone] PCP - General Family Medicine 06/07/23 Sonya Mejia NP [address] [place] [phone] Referring Physician Nurse Practitioner 11/13/22 Sonya Mejia NP [address] [place] [phone] Nurse Practitioner Family Medicine 06/07/23 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 Start Date End Date Abad Garcia MD [address] [place] [phone] PCP - General Family Medicine 06/07/23 Sonya Mejia NP [address] [place] [phone] Referring Physician Nurse Practitioner 11/13/22 Sonya Mejia NP [address] [place] [phone] Nurse Practitioner Family Medicine 06/07/23 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 Start Date End Date Jessica Owens MD [address] [place] [address] PCP - General Family Medicine 06/07/18 Team Status: Active Member Role Status Dates Sonya Mejia Primary Care Provide r, Attending Provider Active Start: May 28, 2023 Team Status: Inactive Member Role Status Dates Sonya Mejia Primary Care Provider Active Sta rt: June 26, 2023 End: June 26, 2023 Blane Downs DINORAH Attending Provider Active St art: June 26, 2023 End: June 26, 2023 Glenna Quinones APRN Active Star t: June 26, 2023 End: June 26, 2023 Team Status: Inactive Member Role Status Dates Sonya Mejia Primary Care Provider Active Sta rt: August 21, 2023 End: August 21, 2023 Glenna Quinones APRN Attending Provider Active Start: August 21, 2023 End: August 21, 2023 Team Status: Inactive Member Role Status Dates Sonya Mejia Primary Care Provider Active Sta rt: October 11, 2023 End: October 11, 2023 Rosie Witt RN Attending Provider Active Start: October 11, 2023 End: October 11, 2023 Glenna Quinones APRN Active Star t: October 11, 2023 End: October 11, 2023 Team Status: Inactive Member Role Status Dates Sonya Mejia Primary Care Provider Active Sta rt: November 26, 2023 End: November 26, 2023 Glenna Quinones APRN Attending Provider Active Start: November 26, 2023 End: November 26, 2023 Team Status: Inactive Member Role Status Dates Sonya Mejia Primary Care Provider Active Sta rt: December 17, 2023 End: December 17, 2023 Rosie Witt RN Attending Provider Active Start: December 17, 2023 End: December 17, 2023 Glenna Quinones APRN Active Star t: December 17, 2023 End: December 17, 2023 INFORMATION SOURCE (unrecogn ized section and content) DATE CREATED AUTHOR [facility]/07/2022 [facility] DATE CREATED AUTHOR AUTHOR'S ORGANIZ ATION 08/08/2023 [facility] DATE CREATED AUTHOR AUTHOR'S ORGANIZ ATION 08/23/2023 [facility] DATE CREATED AUTHOR AUTHOR'S ORGANIZ ATION 10/16/2023 [facility] EPIC Inactive Administered Medications - up to 3 most recent administrations Administered Medications (un recognized section and content) Medication Order MAR Action Action Date Dose Rate Site PHENYLephrine 2.5 % 1 Drop (AK-DILATE, JESU-SYNEPHRINE) 1 Drop, BOTH EYES, DIRECTED, Starting on Sun08/07/23 at 1300, Until Sun08/08/23 at 0059, Administer for dilation PROTECT FROM LIGHT, [facility]HT CLINIC MED ORDERS Given 08/07/2023 1:00 PM EDT 1 Drop proparacaine 0.5 % 1 Drop (ALCAINE) 1 Drop, BOTH EYES, DIRECTED, Starting on Sun08/07/23 at 1300, Until Sun08/08/23 at 005, Administer for pneumo tonometry, tonopen tonometry, or pachymetry. In the event of a proparacaine shortage, administer 1 drop of tetracaine 0.5% ophthalmic drops into both eyes as directed for pneumo tonometry, tonopen tonometry, or pachymetry, [facility]HT CLINIC MED ORDERS Given 08/07/2023 1:00 PM EDT 1 Drop tropicamide 1 % 1 Drop (MYDRIACYL) 1 Drop, BOTH EYES, DIRECTED, Starting on Sun08/07/23 at 1300, Until Sun08/08/23 at 005, Administer for dilation, OPHT CLINIC MED ORDERS Given 08/07/2023 1:00 PM EDT 1 Drop FOR RECORDS PERTAINING TO PATIENTS WHO ARE OR HAVE BEEN ENROLLED IN A CHEMICAL DEPENDENCY/SUBSTANCEABUSE PROGRAM, SOME INFORMATION MAY BE OMITTED. This clinical summary was aggregated from multiple sources. Caution should be exercised in using it in the provision of clinical care. This summary normalizes information from multiple sources, and as a consequence, information in this document may materially change the coding, format and clinical context of patient data. In addition, data may be omitted in some cases. CLINICAL DECISIONS SHOULD BE BASED ON THE PRIMARY CLINICAL RECORDS. [facility]. provides no warranty or guarantee of the accuracy or completeness of information in this document.
[2024-01-22 12:29] LABS: Basophils Absolute Auto 0.1 10^3/uL (0.0-0.1); Basophils Percent Auto 0.9 % (0.2-2.0); Eosinophils Absolute Auto 0.1 10^3/uL (0.0-0.7); Eosinophils Percent Auto 1.2 % (0.9-7.0); Hemoglobin 14.5 g/dL (12.0-16.0); Immature Granulocytes Abs Auto 0.04 10^3/uL (0.00-0.03); Immature Granulocytes Pct Auto 0.3 % (0.0-0.5); Lymphocytes Absolute Auto 3.9 10^3/uL (1.2-3.8); Mean Corpuscular HGB Conc 33.7 g/dL (29.9-35.2); Mean Corpuscular Hemoglobin 28.8 pg (26.7-34.0); Mean Corpuscular Volume 85.5 fL (81.0-99.0); Mean Platelet Volume 9.8 fL (9.5-13.5); Monocytes Absolute Auto 0.8 10^3/uL (0.3-0.8); Monocytes Percent Auto 6.3 % (1.7-12.0); Neutrophils Absolute Auto 7.2 10^3/uL (1.4-6.5); Neutrophils Percent Auto 59.3 % (43.0-75.0); Platelet Count 311 10^3/uL (150-450); Red Blood Count 5.03 10^6/uL (4.20-5.40); Red Cell Distribution Width 13.3 % (11.0-15.0); White Blood Count 12.1 10^3/uL (4.0-11.0)
[2024-01-22 12:33] LABS: Bilirubin Urine NEGATIVE (NEGATIVE); Blood Urine NEGATIVE (NEGATIVE); Clarity Urine CLEAR (CLEAR); Color Urine YELLOW (YELLOW); Glucose Urine UA 100 mg/dL (NEGATIVE); Ketones Urine NEGATIVE (NEGATIVE); Leukocyte Esterase Urine NEGATIVE (NEGATIVE); Nitrite Urine NEGATIVE (NEGATIVE); Protein Urine NEGATIVE (NEG/TRACE); Specific Gravity Urine >=1.030 (1.005-1.025); Urobilinogen Urine 0.2 EU/dL (0.2-1.0); pH Urine 5.5 (5.0-9.0)
[2024-01-22 12:35] LABS: Urine Microscopic Indicated NO
[2024-01-22 12:37] LABS: Creatinine Urine Random 234.83 mg/dL (20.00-300.00); Microalbum Creatinine Ratio Ur 8.5 mg/g (0.0-29.9)
[2024-01-22 12:59] LABS: Alanine Aminotransferase 40 U/L (14-59); Albumin Globulin Ratio 0.8; Albumin Level 3.2 g/dL (3.4-5.0); Alkaline Phosphatase 110 U/L (46-116); Anion Gap 14.9; Aspartate Amino Transferase 16 U/L (15-37); BUN Creatinine Ratio 22.8; Bilirubin Total 0.6 mg/dL (0.2-1.0); Calcium 9.4 mg/dL (8.5-10.1); Carbon Dioxide 24.1 mmol/L (21.0-32.0); Chloride 102 mmol/L (98-107); Chol HDL Ratio 4.1; Cholesterol 196 mg/dL (<=200); Estimated GFR (African America >60 (>=60); Estimated GFR (Non-African Ame >60 (>=60); Glucose 211 mg/dL (74-106); HDL Cholesterol 48 mg/dL (40-60); Sodium 137 mmol/L (136-145); Total Protein 7.2 g/dL (6.4-8.2); Triglycerides 251 mg/dL (<=150); VLDL CHOLESTEROL 50.2 mg/dL
[2024-01-23 05:07] LABS: Vitamin B12 761 pg/mL (232-1245)
== END 2024-01-22 12:12 | disposition home or self-care (01) ==
LOC: LAB 12:14
PROVIDERS: PCP Nurse Practitioner; Visit Provider Nurse Practitioner
DX: E56.9 Vitamin deficiency, unspecified (principal); I10 Essential (primary) hypertension; E11.3599 Type 2 diabetes mellitus 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 edema, unspecified eye; Z79.4 Long term (current) use of insulin
CPT/HCPCS: 36415; 80053; 80061; 81003; 82043; 82306; 82570; 82607; 85025

== ENCOUNTER 2024-02-10 21:30 | Inpatient (IN) | payer MEDICARE, SELFPAY ==
[2024-02-10] VITALS (9 sets, daily range): BP systolic 160–185; BP diastolic 88–119; PULSE 121–134; TEMP 36.4; O2SAT 97–100; BMI 38.7
--- OUTSIDE RECORDS SUMMARY | 2024-02-10 21:36 | XMS_ITS | CCD ---
Author Organization [facility] Care Team Providers Care Wedding Decorator Name Role Phone [facility] Primary Care Provider Mariam Beyer Attending Provider Abner Cartwright Attending Provider Glenna Quinones Unavailable Jessica Owens MD Primary Care Provider Sonya Mejia Primary Care Provider HARI Quinones Attending Provider [facility] Primary Care Provider HARI Beyer Attending Provider AICHHOLZ, PUBLIC RELATIONS REPRESENTATIVE SONYA Attending Unavailable AICHHOLZ, PUBLIC RELATIONS REPRESENTATIVE SONYA Admitting Unavailable AICHHOLZ, PUBLIC RELATIONS REPRESENTATIVE SONYA Primary Care Unavailable AICHHOLZ, PUBLIC RELATIONS REPRESENTATIVE SONYA Attending Unavailable AICHHOLZ, PUBLIC RELATIONS REPRESENTATIVE SONYA Admitting Unavailable DR MATT CABRERA Primary Care Unavailable AICHHOLZ, PUBLIC RELATIONS REPRESENTATIVE SONYA Consulting Unavailable AICHHOLZ, PUBLIC RELATIONS REPRESENTATIVE SONYA Attending Unavailable AICHHOLZ, PUBLIC RELATIONS REPRESENTATIVE SONYA Admitting Unavailable AICHHOLZ, PUBLIC RELATIONS REPRESENTATIVE SONYA Primary Care Unavailable AICHHOLZ, PUBLIC RELATIONS REPRESENTATIVE SONYA Consulting Unavailable DR VALERIANO SINCLAIR Consulting Unavailable KAYA PATEL Consulting Unavailable ADAM DUMONT Admitting Unavailable ADAM DUMONT Attending Unavailable AICHHOLZ, PUBLIC RELATIONS REPRESENTATIVE SONYA Primary Care Unavailable ADAM DUMONT Consulting Unavailable Mark Gramajo Unavailable [facility] Primary Care Provider HARI Beyer Attending Provider [phone] Aichholz, Sonya J Primary Care Provider HARI Gramajo Attending Provider Jose APODACA, Abad Primary Care Provider Aicnati YARD SUPERVISOR, Sonya Unavailable [facility] Primary Care Provider [phone] HARI Beyer Attending Provider Jose APODACA, Abad Primary Care Provider Aicnati YARD SUPERVISOR, Sonya Unavailable Bob APODACA, Jessica Primary Care Provider [phone] JESSICA OWENS Primary Care Unavailable JASON CH Referring Unavailable JASON CH Attending Unavailable GLENDY PÉREZ Attending Unavailable JESSICA OWENS Primary Care Unavailable [facility] Primary Care Provider HARI Beyer Attending Provider Jackie Sonya J Primary Care Provider HARI Quinones Attending Provider Mark Gramajo Attending Unavailable Mark Gramajo Admitting Unavailable Aichholz, Sonya J Primary Care Unavailable [facility] Primary Care Unavaila ble Marisolus Tondra K Attending Unavailable Mapus, Tondra K Admitting Unavailable Glenna Quinones Attending Unavailable Glenna Quinones Admitting Unavailable Aichholz, Sonya J Primary Care Unavailable Mark Gramajo Attending Unavailable Mark Gramajo Admitting Unavailable Aichholz, Sonya J Primary Care Unavailable Aichholz YARD SUPERVISOR, Sonya Unavailable JACKIE SONYA Attending Unavailable AICHHOLZ, SONYA Attending Unavailable AICHHOLZ, SONYA Attending Unavailable AICHHOLZ, SONYA Attending Unavailable Allergies Allergy Classification Reported Allergen(s) Allergy Type Date of Onset Reaction(s) Facility (20 sources) SGLT2s Propensity to adverse reactions DKA x2 [employer] Other (3 sources) Seasonal allergy; Translations: [SEASONAL ALLERGIES] Allergy to substance 2 Other: See Comments [facility] (9 sources) dulaglutide Drug Allergy 2 [facility] Medications Current Medications Medication Drug Class(es) [...] tablet (20 sources) HMG-CoA Reductase Inhibitor Start: 10-15-2023 End: 04-29-2024 take 1 tablet by mouth in the evening atorvastatin (Lipitor) 80 MG tablet Indications: Mixed hyperlipidemia (CMS/HCC) Take 1 tablet (80 mg) by mouth in the evening 90 tablet 1 01/30/2024 04/29/2024 Active Start: 05-24-2023 End: 08-22-2023 take 80 mg [...] - 1 tablet Orally daily Active Cholecalciferol (6 sources) Vitamin D Start: 08-21-19 take 1 capsule by mouth once daily cholecalciferol (vitamin D3) Active 1 CAP PO Daily August 21, 2023 12:00am Fish Oils (20 sources) Fish Oil Active Flash Glucose Scanning [place] (Freestyle Neris 2 [place]) misc (6 sources) Start: 08-21-19 Flash Glucose Scanning [place] (Freestyle Neris 2 [place]) misc Active 0 .Route August 21, 2023 12:00am As directed Start: 08-21-2023 Flash Glucose Scanning [place] (Freestyle Neris 2 [place]) misc Active 0 .ROUTE August 21, 2023 12:00am As directed Flash Glucose Sensor (Freest yle Neris 2 Sensor) kit (6 sources) Start: 08-21-2023 Flash Glucose Sensor (Freestyle Neris 2 Sensor) kit Active 0 .Route August 21, 2023 12:00am As directed Start: 08-21-2023 Flash Glucose Sensor (Freestyle Neris 2 Sensor) kit Active 0 .ROUTE August 21, 2023 12:00am As directed FreeStyle Neris 2 Sensor - (20 sources) Start: 02-16-2021 FreeStyle Libr e 2 Sensor - as directed in vitro q 14 days for 84 days Jan, Active FreeStyle Neris 2 Sensor - as directed in vitro q 14 days for 84 days Active FreeStyle Neris [place] - (20 sources) Start: 01-21-2020 FreeStyle Libr e [place] - as directed use with 14 days sensor check glucose with reader ac, hs, prn Dec, Active FreeStyle Neris [place] - as directed use with 14 days [...] for 28 days Active Insulin Disposable Pump (V-G o 40) 40 UNIT/24HR kit (9 sources) Start: 01-08-2023 Insulin Dispos able Pump (V-Go 40) 40 UNIT/24HR kit Inject 1 Pump as directed in the morning. 01/08/2023 Active Start: 01-08-2023 Insulin Dispos able Pump (V-Go 40) 40 UNIT/24HR kit Inject 1 Pump as directed in the morning. 0 01/08/2023 Active 3 ml insulin glargine 100 unt/ml pen injector (20 sources) Insulin Analog Start: 01-10-2023 Basaglar KwikP en 100 UNIT/ML pen inject 40 units subcutaneously once daily 01/10/2023 Active Start: 11-04-2019 End: 11-26-2023 inject [...] BEDTIME ammonium lactate 120 mg/ml topical lotion (8 sources) ammonium lactate (Lac-Hydrin) 12 % lotion 1 application every 12 (twelve) hours Active lisinopril 40 mg oral tablet (20 sources) Angiotensin Converting Enzyme Inhibitor Start: End: take 1 tablet by mouth once daily lisinopril 40 MG tablet Indications: Primary hypertension (CMS/HCC) Take 1 tablet (40 mg) by mouth Daily 90 tablet 1 01/30/2024 04/29/2024 Active Start: 10-16-2023 End: 01-30-2024 take 2 tablets by mouth once daily lisinopril 20 MG tablet Indications: Primary hypertension (CMS/HCC) Take 2 tablets (40 mg) by mouth Daily 180 tablet 1 10/16/2023 01/30/2024 Discontinued (Therapy completed) Start: 08-21-2023 take 40 mg by mouth once daily Lisinopril Active 40 MG PO Daily August 21, 2023 12:00am Start: 11-02-2022 take 2 tablets by mo [facility] once daily in the morning lisinopril 20 MG tablet Take 40 mg by mouth in the morning. Total is 40mg, so 2 pills daily. 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 loratadine 10 mg oral tablet (11 sources) Start: 10-15-2023 End: 04-29-2024 take 1 tablet by mouth once daily loratadine (Claritin) 10 MG tablet Indications: Environmental and seasonal allergies Take 1 tablet (10 mg) by mouth Daily Take 10 mg by mouth 1 (one) time each day at the same time. 90 tablet 1 01/30/2024 04/29/2024 Active take 1 tablet by mouth once dawson y loratadine (Claritin) 10 MG tablet Take 10 mg by mouth 1 (one) time each day at the same time. 0 Active metFORMIN hydrochloride 1000 mg oral tablet (20 sources) Biguanide Start: 01-31-2018 take 1000 mg by mouth twice daily at mealtime Metformin Active 1000 MG PO Twice daily with meals January 31, 2018 12:00am take 1 tablet by jen th every twelve hours metFORMIN (Glucophage) 1000 MG tablet Ta ke 1,000 mg by mouth every 12 (twelve) hours. Active Comment on above: TAKE ONE 1 TABLET BY MOUTH TWICE DAILY Mounjaro 10 MG/0.5ML solution auto-injector (3 sources) Start: 01-23-2024 Mounjaro 10 MG/0.5ML solution auto-injector Inject 10 mg as directed every 7 (seven) days 01/23/2024 Active Multiple Vitamins-Minerals (ONE-A-DAY WOMENS PO) (9 sources) take 1 tablet by mouth once daily in the morning Multiple Vitamins-Minerals (ONE-A-DAY WOMENS PO) Take 1 tablet by mouth in the morning. Active take 1 tablet by jen th once daily in the morning Multiple Vitamins-Minerals (ONE-A-DAY WO MENS PO) Take 1 tablet by mouth in the morning. 0 Active dy-pc-opoi-FA-Ca carb-vit K (Women's Multivitamin) (6 sources) Start: 08-21-2023 take 1 tablet by mouth once daily zl-ys-dklo-FA-Ca carb-vit K (Women's Multivitamin) Active 1 TAB PO Daily August 21, 2023 12:00am omega-3 fatty acids (Fish Oil) (6 sources) Start: 08-21-2023 take 1 capsule by mouth once daily omega-3 fatty acids (Fish Oil) Active 1 CAP PO Daily August 21, 2023 12:00am omeprazole 40 mg delayed release oral capsule (20 sources) Proton Pump Inhibitor Start: 10-15-2023 End: 04-29-2024 take 1 capsule by mouth before mealtime omeprazole (PriLOSEC) [address] capsule Indications: Gastroesophageal reflux disease, unspecified whether esophagitis present Take 1 capsule (40 mg) by mouth in the morning. Take before meals. 90 capsule 1 01/30/2024 04/29/2024 Active Start: 11-02-2019 End: 08-21-2023 take 40 mg [...] 2 MG/1.5ML as directed Subcutaneous Jun, Active Sub-Q Insulin Device, 40 Uni t (V-Go 40) device (11 sources) Start: 08-21-2023 Sub-Q Insulin Device, 40 [...] August 21, 2023 12:00am As directed Tirzepatide (9 sources) Start: 12-17-2023 Tirzepatide (M ounjaro) 7.5 mg/0.5 mL pen injector Active 7.5 MG SUBCUT every week 2 December 17, 2023 2:03pm Start: 10-11-2023 End: 12-17-2023 Tirzepatide (Mounjaro) 7.5 m g/0.5 mL pen injector Discontinued 7.5 MG SUBCUT every week 2 October 11, 2023 1:52pm December 17, 2023 2:04pm Start: 10-11-2023 Tirzepatide (M ounjaro) 7.5 mg/0.5 [...] 1 tablet Orally daily Active vitamin B12 (6 sources) Vitamin B12 Start: 08-21-2023 take 1 [...] capsule dicyclomine hydrochloride 20 mg oral tablet (12 sources) Anticholinergic Start: 02-18-2018 dicyclomine (BENTYL) 20 [...] PAIN 0.5 ml dulaglutide 1.5 mg/ml auto-injector (10 sources) GLP-1 Receptor Agonist Start : 11-01 [...] traction retinal detachments involving maculae, unspecified whether [facility]p insulin use (HCC) , Nuclear sclerotic cataract, bilateral , 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, bilateral Take by mouth one time a week. 0 Active Comment on above: Take by mouth one ti me a week. ertugliflozin 15 mg oral tablet (12 sources) Start : 02-27 End: 11-03 take 15 mg by mouth once daily Ertugliflozin Discontinued 15 MG PO Daily June 30, 2019 12:00am November 04, 2019 1:14pm Flash Glucose Scanning [place] (Freestyle Neris 14 Day [place]) misc (6 sources) Start : 08-20 End: 08-20 Flash Glucose Scanning [place] (Freestyle Neris 14 Day [place]) misc Discontinued 0 .Route August 21, 2023 12:00am August 21, 2023 1:09pm As directed Flash Glucose Sensor (Freestyle Neris 14 Day Sensor) kit (6 sources) Start : 08-20 End: 08-20 Flash Glucose Sensor (Freestyle Neris 14 Day Sensor) kit Discontinued 0 .Route August 21, 2023 12:00am August 21, 2023 1:09pm As directed hydroCHLOROthiazide 12.5 mg / lisinopril 20 mg oral tablet (12 sources) Thiazide Diuretic, Angiotensin Converting Enzyme Inhibitor [...] units based on pt's blood glucose Start: 05-29-2023 Fiasp 100 UNIT /ML solution inject as directed four times a day (EXPECT 100 UNITS PER DAY) 05/29/2023 Active Start: 10-05-2022 End: 01-22-2024 NovoLOG 100 UNIT/ML solution Inject 100 mL under the skin. 10/05/2022 Active Start: 03-06-2018 inject 10 [IU] [...] 30 days at a time Nov, Active Mounjaro 7.5 MG/0.5ML soluti on pen-injector (4 sources) Start: 12-17-2023 End: 01-30-2024 Mounjaro 7.5 MG/0.5ML soluti on pen-injector Inject 7.5 mg under the skin every 7 (seven) days 12/17/2023 01/30/2024 Discontinued (Therapy completed) Start: 12-17-2023 Mounjaro 7.5 M G/0.5ML solution pen-injector Inject 7.5 mg under the skin every 7 (seven) days 12/17/2023 Active naltrexone 380 mg injection (12 sources) Opioid Antagonist Start: 05-21-2018 End: 11-02-2019 [...] 2 mg/dose (8 mg/3 mL) pen injector (6 sources) Start: 08-21-2023 End: 11-26-2023 inject 2 [...] SUBCUT every week August 21, 2023 12:00am sertraline 50 mg oral tablet (20 sources) Serotonin Reuptake Inhibitor Start: 08-21-2023 End: 04-29-2024 take 1 tablet by mouth in the morning sertraline (Zoloft) 50 MG tablet Indications: Anxiety , Major depressive disorder with single episode, remission status unspecified (CMS/HCC) Take 1 tablet (50 mg) by mouth in the morning. 90 tablet 1 10/15/2023 01/30/2024 Discontinued (Reorder) Start: 04-25-2023 End: 07-24-2023 take 1 tablet [...] Start: 05-27-2018 take 2 tablets by mo ut once daily sertraline (ZOLOFT) 25 mg tablet Take 50 mg by mouth once daily. 0 05/27/2018 Active take 1 tablet by jen every twenty-four hours Sertraline HCl 50 MG 1 tablet Orally Once a day Active Comment on above: Take 25 mg by mouth once daily. Take 50 mg by mouth once daily. Tirzepatide (5 sources) Start: 08-21-2023 End: 10-11-2023 Tirzepatide (Mounjaro) 2.5 mg/0.5 mL pen injector Discontinued 2.5 MG SUBCUT every week 2.5 August 21, 2023 12:00am October 11, 2023 1:52pm Start: 08-21-2023 Tirzepatide (M ounjaro) 2.5 mg/0.5 mL pen injector Active 2.5 MG SUBCUT every week 2.5 August 21, 2023 12:00am Tirzepatide (5 sources) Start: 08-21-2023 End: 10-11-2023 inject 2.5 [...] traction retinal detachments involving maculae, unspecified whether [facility] insulin use (HCC) , Nuclear sclerotic cataract, bilateral , 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, bilateral once daily. USE DIRECTED. 0 04/25/2021 Active Comment on above: once daily. USE D IRECTED. Problems Active Problems Problem Classification Problem Date Documented Da te Episodic/Chronic Administrative/social admission (9 sources) Dietary counseling and surveillance Onset: 1 Resolved: 2 Episodic Anxiety disorders (15 sources) Anxiety; Translations: [Anxiety disorder, unspecified] Onset: 3 04-02-2023 Chronic Attention-deficit, conduct, and disruptive behavior disorders (20 sources) Attention deficit hyperactivity disorder; Translations: [Attention-deficit hyperactivity disorder, unspecified type] Onset: 4 08-21-2023 Chronic Attention-deficit, conduct, and disruptive behavior disorders (14 sources) Attention-deficit hyperactivity disorder, unspecified type; Translations: [Attention deficit disorder with hyperactivity] Onset: 1 Resolved: 2 Chronic Blindness and vision defects (8 sources) Blindness AND/OR vision impairment level; Translations: [Unspecified visual loss] Onset: 4 06-07-2023 Chronic Cancer of uterus (8 sources) Adenocarcinoma of endometrium; Translations: [Malignant neoplasm of endometrium] Onset: 8 06-07-2023 Chronic Cardiac dysrhythmias (10 sources) Tachycardia; Translations: [Tachycardia, unspecified] 06-27-2019 Episodic Cataract (20 sources) Nuclear sclerotic cataract; Translations: [Age-related nuclear cataract, bilateral] Onset: 8 Chronic Developmental disorders (8 sources) Developmental academic disorder; Translations: [Developmental disorder of scholastic skills, unspecified] Onset: 4 06-07-2023 Chronic Diabetes mellitus with complications (20 sources) Diabetic ketoacidosis; Translations: [Type 2 diabetes mellitus with ketoacidosis without coma] Onset: 7 Resolved: 4 Chronic Diabetes mellitus without complication (20 sources) Diabetes mellitus without complication; Translations: [Type 2 diabetes mellitus without complications] Onset: 3 04-02-2023 Chronic Diseases of white blood cells (10 sources) Leukocytosis; Translations: [Elevated white blood cell count, unspecified] 06-27-2019 Chronic Disorders of lipid metabolism (20 sources) Hyperlipidemia; Translations: [Hyperlipidemia, unspecified] Onset: 1 Resolved: 2 Chronic Disorders usually diagnosed in infancy, childhood, or adolescence (20 sources) Autism spectrum disorder; Translations: [Autistic disorder] Onset: 1 Resolved: 2 Chronic Diverticulosis and diverticulitis (17 sources) Diverticular disease; Translations: [Diverticulosis of intestine, part unspecified, without perforation or abscess without bleeding] Onset: 3 Resolved: 4 04-02-2023 Chronic Esophageal disorders (20 sources) Gastroesophageal reflux disease; Translations: [Gastro-esophageal reflux disease without esophagitis] Onset: 3 08-02-2016 Chronic Esophageal disorders (1 source) Esophageal disorders; Translations: [Gastro-esophageal reflux disease without esophagitis] Onset: 3 Essential hypertension (20 sources) Hypertensive disorder; Translations: [Essential (primary) hypertension] Onset: 1 Resolved: 2 Chronic Fluid and electrolyte disorders (20 sources) Ketoacidosis; Translations: [Acidosis] 11-02-2019 Episodic Miscellaneous mental health disorders (17 sources) [...] Onset: 1 Resolved: 2 Chronic Nutritional deficiencies (14 sources) Deficiency of other specified B group vitamins; Translations: [Vitamin deficiency] Onset: 1 Resolved: 2 Episodic Other aftercare (9 sources) Encounter for therapeutic drug level monitoring Onset: 1 Resolved: 2 Episodic Other aftercare (15 sources) ocean transportation intermediary (current) use of insulin; Translations: [Long-term (current) use of insulin] Onset: 1 Resolved: 2 Episodic Other aftercare (1 source) Other [facility] (current) drug therapy; Translations: [OTH RETIREMENT CURRENT DRUG THERAPY] Onset: 3 Episodic Other aftercare (1 source) ocean transportation intermediary (current) use of oral hypoglycemic drugs; Translations: [RETIREMENT USE ORAL HYPOGLYCEMIC DX] Onset: 3 Episodic Other eye disorders (2 sources) Vitreomacular adhesion of bilateral eyes; 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, bilateral] Onset: 8 10-11-2017 Chronic Other gastrointestinal disorders (7 sources) Constipation; Translations: [Constipation, unspecified] Episodic Other liver diseases (14 sources) Steatosis of liver; Translations: [Fatty (change of) liver, not elsewhere classified] Onset: 3 04-02-2023 Chronic Other liver diseases (5 sources) Fatty (change of) liver, not elsewhere classified; Translations: [Other chronic nonalcoholic liver disease] 08-21-2023 Chronic Other nutritional; endocrine; and metabolic disorders (20 sources) Obesity; Translations: [Obesity, unspecified] 06-30-2019 Chronic Other nutritional; endocrine; and metabolic disorders (20 sources) Obese class II; Translations: [Body mass index (BMI) 35.0-35.9, adult] Chronic Other nutritional; endocrine; and metabolic disorders (15 sources) Body mass index (BMI) 40.0-44.9, adult; Translations: [Body Mass Index 40.0-44.9, adult] Onset: 1 Resolved: 2 Chronic Other nutritional; endocrine; and metabolic disorders (1 source) Morbid (severe) obesity due to excess calories; Translations: [MORBID SEVERE OBES D/T EXCESS YULIYA] Onset: 3 Chronic Other nutritional; endocrine; and metabolic disorders (13 sources) Severe obesity; Translations: [Morbid (severe) obesity due to excess calories] Onset: 3 04-02-2023 Chronic Other nutritional; endocrine; and metabolic disorders (5 sources) Weight gain; Translations: [Abnormal weight gain] 08-21-2023 Episodic Other nutritional; endocrine; and metabolic disorders (5 sources) Abnormal weight gain; Translations: [Abnormal weight gain] 08-21-2023 Episodic Other screening for suspected conditions (not mental disorders or infectious disease) (20 sources) Patient encounter status; Translations: [Encounter for screening mammogram for malignant neoplasm of breast] Onset: 4 06-07-2023 Episodic Other skin disorders (2 sources) Corns and callosities Onset: 2 Resolved: 2 Episodic Other upper respiratory disease (7 sources) Allergic disposition; Translations: [Other allergic rhinitis] Onset: 4 10-15-2023 Chronic Residual codes; unclassified (15 sources) Noncompliance with medication regimen; Translations: [Patient's other noncompliance with medication regimen] 06-27-2019 Episodic Retinal detachments; defects; vascular occlusion; and retinopathy (16 sources) Bilateral retinopathy; Translations: [Unspecified background retinopathy] Onset: 4 08-21-2023 Chronic Screening and history of mental [...] Translations: [Unspecified abdominal pain] Onset: 08-07-2022 Episodic Genitourinary symptoms and ill-defined conditions (9 sources) Abnormal urinalysis; Translations: [Unspecified abnormal findings in urine] Onset: 04-02-2023 04-02-2023 Episodic Mood disorders (7 sources) Mood disorders Onset: 06-07-2023 06-07-2023 Other aftercare (20 sources) Long-term current use of insulin; Translations: [care home (current) use of insulin] Onset: 10-15-2023 06-07-2023 Episodic Other gastrointestinal disorders (2 sources) Constipation, unspecified; Translations: [Constipation, unspecified] Onset: 12-04-2022 Episodic Other nutritional; endocrine; and metabolic disorders (20 sources) Body mass index 40+ - severely obese; Translations: [Body mass index (BMI) 40.0-44.9, adult] Onset: 10-15-2023 Resolved: 10-15-2023 08-21-2023 Chronic Results Test Name Value Interpretation Reference Range Facility ALL CBC WITH AUTO DIFFon BASOPHILS ABSOLUTE AUTO 0.1 [facility] Basophils/100 WBC (Bld) 0.9 % 0.2 - 2.0 % [facility] Eosinophils/100 WBC (Bld) 1.2 % 0.9 - 7.0 % [facility] Erythrocyte distribution width (RBC) [Ratio] 13.3 % 11.0 - 15.0 % [facility] Hematocrit (Bld) [Volume fraction] 43.0 % 36.0 - 48.0 % [facility] Hemoglobin (Bld) [Mass/Vol] 14.5 g/dL 12.0 - 16.0 g/dL [facility] IMMATURE GRANULOCYTES ABS AUTO 0.04 High [facility] Immature granulocytes/100 WBC (Bld) 0.3 % 0.0 - 0.5 % [facility] Interpretation and review of laboratory results Abnormal [facility] LYMPHOCYTES ABSOLUTE AUTO 3.9 High [facility] Lymphocytes/100 WBC (Bld) 32.0 % 20.5 - 60.0 % [facility] MCH (RBC) [Entitic mass] 28.8 pg 26.7 - 34.0 pg [facility] MCHC (RBC) [Mass/Vol] 33.7 g/dL 29.9 - 35.2 g/dL [facility] MCV (RBC) [Entitic vol] 85.5 fL 81.0 - 99.0 fL [facility] MONOCYTES ABSOLUTE AUTO 0.8 [facility] Monocytes/100 WBC (Bld) 6.3 % 1.7 - 12.0 % [facility] NEUTROPHILS ABSOLUTE AUTO 7.2 High [facility] Neutrophils/100 WBC (Bld) 59.3 % 43.0 - 75.0 % [facility] Platelet mean volume (Bld) [Entitic vol] 9.8 fL 9.5 - 13.5 fL [facility] EO # 0.1 [facility] PLT 311 [facility] RBC 5.03 [facility] WBC 12.1 High [facility] MICROALB CREAT RATIO KAILYN Chang 01-22-2024 CREATININE URINE RANDOM 234.83 mg/dL 20.00 - 300.00 mg/dL [facility] MICROALBUM CREATININE RATIO UR 8.5 mg/g 0.0 - 29.9 mg/g [facility] Comment on above: NO MICROALBUMINURIA 0-29 MG/G CLINICAL MICROALBUMINURIA 30-300 MG/G MACROALBUMINURIA >300 MG/G MICROALBUMIN URINE RANDOM 2.0 mg/dL [facility] TBH UA (CLEAN/CATCH) MICROSC OPIC IF INDICATEon 01-22-2024 BILIRUBIN URINE Negative NEGATIVE [facility] BLOOD URINE Negative NEGATIVE [facility] Clarity (U) CLEAR CLEAR [facility] Color (U) YELLOW YELLOW [facility] GLUCOSE URINE UA 100 mg/dL Abnormal NEGATIVE [facility] Interpretation and review of laboratory results Abnormal [facility] Ketones Ql (U) Negative NEGATIVE mg/dL [facility] Leukocyte esterase Test strip Ql (U) Negative NEGATIVE [facility] NITRITE URINE Negative NEGATIVE [facility] pH (U) 5.5 [pH] 5.0 - 9.0 [facility] PROTEIN URINE Negative NEG/TRACE mg/dL [facility] SPECIFIC GRAVITY URINE >=1.030 Abnormal 1.005 - 1.025 [facility] URINE MICROSCOPIC INDICATED NO [facility] UROBILINOGEN URINE 0.2 EU/dL 0.2 - 1.0 EU/dL [facility] (Bld) [Mass fract ion]on 11-26-2023 HbA1c (Bld) [Mass fraction] 8.4 % [facility] [facility] No Panel Informationon 11-25 Bedside Glucose 72 [facility] Alanine aminotransferase [En zymatic activity/volume] in Serum or PlasmaOrdered By: Glenna Quinones on 08-21-2023 ALT [Catalytic activity/Vol] 31 U/L 7-52 [facility] Albumin [Mass/volume] in Ser um or Plasma by Bromocresol green (BCG) dye binding methoOrdered By: Glenna Quinones on 08-21-2023 Albumin BCG dye [Mass/Vol] 4.1 g/dL 3.5-5.7 [facility] Alkaline phosphatase [Enzyma tic activity/volume] in Serum or PlasmaOrdered By: Glenna Quinones on 08-21-2023 ALP [Catalytic activity/Vol] 84 U/L 34-104 [facility] Aspartate aminotransferase [ Enzymatic activity/volume] in Serum or PlasmaOrdered By: Glenna Quinones on 08-21-2023 AST [Catalytic activity/Vol] 21 U/L 13-39 [facility] Bilirubin.total [Mass/volume ] in Serum or PlasmaOrdered By: Glenna Quinones on 08-21-2023 Bilirubin [Mass/Vol] 0.5 mg/dL 0.3-1.0 [facility] Calcium [Mass/volume] in Ser um or PlasmaOrdered By: Glenna Quinones on 08-21-2023 Calcium [Mass/Vol] 9.8 mg/dL 8.6-10.3 [facility] Carbon dioxide, total [Moles /volume] in Serum or PlasmaOrdered By: Glenna Quinones on 08-21-2023 CO2 [Moles/Vol] 30.1 mmol/L 21.0-31.0 [facility] Chloride [Moles/volume] in S cindy or PlasmaOrdered By: Glenna Quinones on 08-21-2023 Chloride [Moles/Vol] 102 mmol/L 98-107 [facility] Cholesterol [Mass/volume] in Serum or PlasmaOrdered By: Glenna Quinones on 08-21-2023 Cholesterol [Mass/Vol] 245 mg/dL 140-200 [facility] Comment on above: Chol less than 200 m g/dl low riskChol 201-239 mg/dl borderline riskChol 240 mg/dl and greater high risk Cholesterol in LDL Calc [Mas s/Vol]Ordered By: Glenna Quinones on 08-21-2023 Cholesterol in LDL [Mass/Vol] TNP [facility] Comment on above: Test not performed Cholesterol in LDL [Mass/vol ume] in Serum or PlasmaOrdered By: Glenna Quinones on 08-21-2023 Cholesterol in LDL [Mass/Vol] 173 mg/dL 0-100 [facility] Comment on above: LDL ATP III CLASSIFI CATIONLDL less than 100 mg/dL OptimalLDL 100-129 mg/dL Near or above optimalLDL 130-159 mg/dL Borderline highLDL 160-189 mg/dL HighLDL greater than 189 mg/dL Very high Cholesterol in VLDL Calc [Ma ss/Vol]Ordered By: Glenna Quinones on 08-21-2023 Cholesterol in VLDL [Mass/Vol] 91 mg/dL [facility] Comprehensive Metabolic Pane santos 08-21-2023 Albumin [Mass/Vol] 4.1 g/dL Normal 3.5-5.7 [facility] Comment on above: Order Comment: Reaso n for Exam Right upper quadrant abdominal pain Performed By: #### H EPATIC, CBC, KEYLA, PT, LIPID, FE and TIBC, NATHALY, LIPASE #### [place] [address] [place] #### HBSAG, HCV RX PCR, CARSON CHOICE, SMAB, HBSAB, HBCAB, ALPHA PHEN, CERULOP #### [facility] , Albumin/Globulin [Mass ratio] 1.5 {ratio} Normal [facility] Comment on above: Order Comment: Reaso n for Exam Right upper quadrant abdominal pain Performed By: #### H EPATIC, CBC, KEYLA, PT, LIPID, FE and TIBC, NATHALY, LIPASE #### [address] #### HBSAG, HCV RX PCR, CARSON CHOICE, SMAB, HBSAB, HBCAB, ALPHA PHEN, CERULOP #### [facility] , ALP [Catalytic activity/Vol] 84 U/L Normal 34-104 [facility] Comment on above: Order Comment: Reaso n for Exam Right upper quadrant abdominal pain Performed By: #### H EPATIC, CBC, KEYLA, PT, LIPID, FE and TIBC, NATHALY, LIPASE #### [address] #### HBSAG, HCV RX PCR, CARSON CHOICE, SMAB, HBSAB, HBCAB, ALPHA PHEN, CERULOP #### [facility] , ALT [Catalytic activity/Vol] 31 U/L Normal 7-52 [facility] Comment on above: Order Comment: Reaso n for Exam Right upper quadrant abdominal pain Performed By: #### H EPATIC, CBC, KEYLA, PT, LIPID, FE and TIBC, NATHALY, LIPASE #### [place] [address] [place] #### HBSAG, HCV RX PCR, CARSON CHOICE, SMAB, HBSAB, HBCAB, ALPHA PHEN, CERULOP #### [facility] , Anion gap [Moles/Vol] 14.0 mmol/L Normal 6.0-15.[address] [facility] Comment on above: Order Comment: Reaso n for Exam Right upper quadrant abdominal pain Performed By: #### H EPATIC, CBC, KEYLA, PT, LIPID, FE and TIBC, NATHALY, LIPASE #### [address] #### HBSAG, HCV RX PCR, CARSON CHOICE, SMAB, HBSAB, HBCAB, ALPHA PHEN, CERULOP #### [facility] , AST [Catalytic activity/Vol] 21 U/L Normal 13-39 [facility] Comment on above: Order Comment: Reaso n for Exam Right upper quadrant abdominal pain Performed By: #### H EPATIC, CBC, KEYLA, PT, LIPID, FE and TIBC, NATHALY, LIPASE #### [address] #### HBSAG, HCV RX PCR, CARSON CHOICE, SMAB, HBSAB, HBCAB, ALPHA PHEN, CERULOP #### [facility] , Bilirubin [Mass/Vol] 0.5 mg/dL Normal 0.3-1.0 [facility] Comment on above: Order Comment: Reaso n for Exam Right upper quadrant abdominal pain Performed By: #### H EPATIC, CBC, KEYLA, PT, LIPID, FE and TIBC, NATHALY, LIPASE #### [place] [address] [place] #### HBSAG, HCV RX PCR, CARSON CHOICE, SMAB, HBSAB, HBCAB, ALPHA PHEN, CERULOP #### [facility] , Calcium [Mass/Vol] 9.8 mg/dL Normal 8.6-10.3 [facility] Comment on above: Order Comment: Reaso n for Exam Right upper quadrant abdominal pain Performed By: #### H EPATIC, CBC, KEYLA, PT, LIPID, FE and TIBC, NATHALY, LIPASE #### [place] [address] [place] #### HBSAG, HCV RX PCR, CARSON CHOICE, SMAB, HBSAB, HBCAB, ALPHA PHEN, CERULOP #### [facility] , Chloride [Moles/Vol] 102 mmol/L Normal 98-107 [facility] Comment on above: Order Comment: Reaso n for Exam Right upper quadrant abdominal pain Performed By: #### H EPATIC, CBC, KEYLA, PT, LIPID, FE and TIBC, NATHALY, LIPASE #### [address] #### HBSAG, HCV RX PCR, CARSON CHOICE, SMAB, HBSAB, HBCAB, ALPHA PHEN, CERULOP #### [facility] , CO2 [Moles/Vol] 30.1 mmol/L Normal 21.0-31.0 [facility] Comment on above: Order Comment: Reaso n for Exam Right upper quadrant abdominal pain Performed By: #### H EPATIC, CBC, KEYLA, PT, LIPID, FE and TIBC, NATHALY, LIPASE #### [place] [address] [place] #### HBSAG, HCV RX PCR, CARSON CHOICE, SMAB, HBSAB, HBCAB, ALPHA PHEN, CERULOP #### [facility] , Creatinine [Mass/Vol] 0.61 mg/dL Normal 0.60-1.20 [facility] Comment on above: Order Comment: Reaso n for Exam Right upper quadrant abdominal pain Performed By: #### H EPATIC, CBC, KEYLA, PT, LIPID, FE and TIBC, NATHALY, LIPASE #### [place] [address] [place] #### HBSAG, HCV RX PCR, CARSON CHOICE, SMAB, HBSAB, HBCAB, ALPHA PHEN, CERULOP #### [facility] , GFR/1.73 sq M.predicted MDRD (S/P/Bld) [Vol rate/Area] mL/min/{1.73_m2} Normal [facility] Comment on above: Order Comment: Reaso n for Exam Right upper quadrant abdominal pain Performed By: #### H EPATIC, CBC, KEYLA, PT, LIPID, FE and TIBC, NATHALY, LIPASE #### [place] [address] [place] #### HBSAG, HCV RX PCR, CARSNO CHOICE, SMAB, HBSAB, HBCAB, ALPHA PHEN, CERULOP #### [facility] , Globulin (S) [Mass/Vol] 2.7 g/dL Normal [facility] Comment on above: Order Comment: Reaso n for Exam Right upper quadrant abdominal pain Performed By: #### H EPATIC, CBC, KEYLA, PT, LIPID, FE and TIBC, NATHALY, LIPASE #### [place] [address] [place] #### HBSAG, HCV RX PCR, CARSON CHOICE, SMAB, HBSAB, HBCAB, ALPHA PHEN, CERULOP #### [facility] , Glucose [Mass/Vol] 54 mg/dL Low 70-100 [facility] Comment on above: Order Comment: Reaso n for Exam Right upper quadrant abdominal pain Result Comment: [place]on Glucose Reference Range is dependent on time and content of last meal. Glucose of more than 200 mg/dL in a nonstressed, ambulatory subject supports the diagnosis of Diabetes Mellitus. ADA recommended reference range Performed By: #### H EPATIC, CBC, KEYLA, PT, LIPID, FE and TIBC, NATHALY, LIPASE #### [address] #### HBSAG, HCV RX PCR, CARSON CHOICE, SMAB, HBSAB, HBCAB, ALPHA PHEN, CERULOP #### [facility] , Potassium [Moles/Vol] 4.1 mmol/L Normal 3.5-5.1 [facility] Comment on above: Order Comment: Reaso n for Exam Right upper quadrant abdominal pain Performed By: #### H EPATIC, CBC, KEYLA, PT, LIPID, FE and TIBC, NATHALY, LIPASE #### [place] [address] [place] #### HBSAG, HCV RX PCR, CARSON CHOICE, SMAB, HBSAB, HBCAB, ALPHA PHEN, CERULOP #### [facility] , Protein [Mass/Vol] 6.8 g/dL Normal 6.4-8.9 [facility] Comment on above: Order Comment: Reaso n for Exam Right upper quadrant abdominal pain Performed By: #### H EPATIC, CBC, KEYLA, PT, LIPID, FE and TIBC, NATHALY, LIPASE #### [place] [address] [place] #### HBSAG, HCV RX PCR, CARSON CHOICE, SMAB, HBSAB, HBCAB, ALPHA PHEN, CERULOP #### [facility] , Sodium [Moles/Vol] 142 mmol/L Normal 136-145 [facility] Comment on above: Order Comment: Reaso n for Exam Right upper quadrant abdominal pain Performed By: #### H EPATIC, CBC, KEYLA, PT, LIPID, FE and TIBC, NATHALY, LIPASE #### [address] #### HBSAG, HCV RX PCR, CARSON CHOICE, SMAB, HBSAB, HBCAB, ALPHA PHEN, CERULOP #### [facility] , Urea nitrogen [Mass/Vol] 22 mg/dL Normal 7-25 [facility] Comment on above: Order Comment: Reaso n for Exam Right upper quadrant abdominal pain Performed By: #### H EPATIC, CBC, KEYLA, PT, LIPID, FE and TIBC, NATHALY, LIPASE #### [place] [address] [place] #### HBSAG, HCV RX PCR, CARSON CHOICE, SMAB, HBSAB, HBCAB, ALPHA PHEN, CERULOP #### [facility] , Creatinine [Mass/volume] in Serum or PlasmaOrdered By: Glenna Quinones on 08-21-2023 Creatinine [Mass/Vol] 0.61 mg/dL 0.60-1.20 [facility] Globulin Calc (S) [Mass/Vol] Ordered By: Glenna Quinones on 08-21-2023 Globulin (S) [Mass/Vol] 2.7 g/dL [facility] Glucose [Mass/volume] in Ser um or PlasmaOrdered By: Glenna Quinones on 08-21-2023 Glucose [Mass/Vol] 54 mg/dL 70-100 [facility] Comment on above: ADA recommended refe renyoshi rangeRandom Glucose Reference Range is dependent on time and content of last meal. Glucose of more than 200 mg/dL in a nonstressed, ambulatory subject supports the diagnosis of Diabetes Mellitus. LDL Cholesterol Measuredon 0 08-21-2023 LDL Cholesterol Measured 173 mg/dL High 0-100 [facility] Comment on above: Order Comment: [...] LIPID, FE and TIBC, NATHALY, LIPASE #### [facility] [address] [place] [address] [place] #### HBSAG, HCV RX PCR, CARSON CHOICE, SMAB, HBSAB, HBCAB, ALPHA PHEN, CERULOP #### [facility] , Lipid Panelon 08-21-2023 Cholesterol [Mass/Vol] 245 mg/dL High 140-200 [facility] Comment on above: Order Comment: Reaso n for Exam Right upper quadrant abdominal pain Result Comment: Chol less than 200 mg/dl low risk Chol 201-239 mg/dl borderline risk Chol 240 mg/dl and greater high risk Performed By: #### H EPATIC, CBC, KEYLA, PT, LIPID, FE and TIBC, NATHALY, LIPASE #### [facility] [address] [place] [address] [place] #### HBSAG, HCV RX PCR, CARSON CHOICE, SMAB, HBSAB, HBCAB, ALPHA PHEN, CERULOP #### [facility] , Cholesterol in HDL [Mass/Vol] 45 mg/dL Normal 23-92 [facility] Comment on above: Order Comment: Reaso n for Exam Right upper quadrant abdominal pain Result Comment: HDL CHOL ATP-III CLASSIFICATION Cardiovascular Risk HDL > or equal to 60 mg/dL LOW HDL < 40 mg/dL HIGH Performed By: #### H EPATIC, CBC, KEYLA, PT, LIPID, FE and TIBC, NATHALY, LIPASE #### [facility] [address] [place] [address] [place] #### HBSAG, HCV RX PCR, CARSON CHOICE, SMAB, HBSAB, HBCAB, ALPHA PHEN, CERULOP #### [facility] , Cholesterol.total/Chol esterol in HDL [Mass ratio] 5.4 {ratio} Normal <5.0 [facility] Comment on above: Order Comment: Reaso n for Exam Right upper quadrant abdominal pain Performed By: #### H EPATIC, CBC, KEYLA, PT, LIPID, FE and TIBC, NATHALY, LIPASE #### [place] [address] [place] #### HBSAG, HCV RX PCR, CARSON CHOICE, SMAB, HBSAB, HBCAB, ALPHA PHEN, CERULOP #### [facility] , LDL Cholesterol,Calculated Not performed Normal 0-100 [facility] Comment on above: Order Comment: Reaso n for Exam Right upper quadrant abdominal pain Performed By: #### H EPATIC, CBC, KEYLA, PT, LIPID, FE and TIBC, NATHALY, LIPASE #### [place] [address] [place] #### HBSAG, HCV RX PCR, CARSON CHOICE, SMAB, HBSAB, HBCAB, ALPHA PHEN, CERULOP #### [facility] , Triglyceride w/Reflex 459 mg/dL High 0-149 [facility] Comment on above: Order Comment: [...] LIPID, FE and TIBC, NATHALY, LIPASE #### [facility] [address] [place] [address] [place] #### HBSAG, HCV RX PCR, CARSON CHOICE, SMAB, HBSAB, HBCAB, ALPHA PHEN, CERULOP #### [facility] , VLDL CHOLESTEROL 91 mg/dL Normal [facility] Comment on above: Order Comment: Reaso n for Exam Right upper quadrant abdominal pain Performed By: #### H EPATIC, CBC, KEYLA, PT, LIPID, FE and TIBC, NATHALY, LIPASE #### [facility] [address] [place] [address] [place] #### HBSAG, HCV RX PCR, CARSON CHOICE, SMAB, HBSAB, HBCAB, ALPHA PHEN, CERULOP #### [facility] , No Panel InformationOrdered By: Glenna Quinones on 08-21-2023 Estimated GFR (CKD-EPI) > 60.0 mL/Min [facility] Creatinine Clearance (Chem N/A [facility] No Panel Informationon 08-20 Bedside Glucose 129 [facility] Potassium [Moles/volume] in Serum or PlasmaOrdered By: Glenna Quinones on 08-21-2023 Potassium [Moles/Vol] 4.1 mmol/L 3.5-5.1 [facility] Protein [Mass/volume] in Ser um or PlasmaOrdered By: Glenna Quinones on 08-21-2023 Protein [Mass/Vol] 6.8 g/dL 6.4-8.9 [facility] Serum or plasma albumin/glob ulin mass ratioOrdered By: Glenna Quinones on 08-21-2023 Albumin/Globulin [Mass ratio] 1.5 {ratio} [facility] Serum or plasma anion gap de terminationOrdered By: Glenna Quinones on 08-21-2023 Anion gap [Moles/Vol] 14.0 mmol/L 6.0-15.0 [facility] Serum or plasma high density lipoprotein (HDL) cholesterol measurementOrdered By: Glenna Quinones on 08-21-2023 Cholesterol in HDL [Mass/Vol] 45 mg/dL 23-92 [facility] Comment on above: HDL CHOL ATP-III CLA SSIFICATION Cardiovascular RiskHDL > or equal to 60 mg/dL LOWHDL < 40 mg/dL HIGH Serum or plasma total choles terol/high density lipoprotein (HDL) cholesterol mass ratOrdered By: Glenna Quinones on 08-21-2023 Cholesterol.total/Chol esterol in HDL [Mass ratio] 5.4 {ratio} <5.0 [facility] Sodium [Moles/volume] in Ser um or PlasmaOrdered By: Glenna Quinones on 08-21-2023 Sodium [Moles/Vol] 142 mmol/L 136-145 [facility] Thyroid Stim Hormone w/Rflxo n 08-21-2023 Thyroid Stim Hormone w/Rflx 1.85 u[iU]/mL Normal 0.45-5.33 [facility] Comment on above: Order Comment: Reaso n for Exam Right upper quadrant abdominal pain Result Comment: PERF ORMED BY: [place] [address] PATHOLOGIST PUNCH OPERATOR HILARIA REES M.D. Performed By: #### H EPATIC, CBC, KEYLA, PT, LIPID, FE and TIBC, NATHALY, LIPASE #### [facility] [address] [place] [address] #### HBSAG, HCV RX PCR, CARSON CHOICE, SMAB, HBSAB, HBCAB, ALPHA PHEN, CERULOP #### [facility] , Thyrotropin [Units/volume] i n Serum or PlasmaOrdered By: Glenna Quinones on 08-21-2023 TSH Qn 1.85 m[IU]/L 0.45-5.33 [facility] Triglyceride [Mass/volume] i n Serum or PlasmaOrdered By: Glenna Quinones on 08-21-2023 Triglyceride [Mass/Vol] 459 mg/dL 0-149 [facility] Comment on above: If the triglyceride result [...] on 08-21-2023 Urea nitrogen [Mass/Vol] 22 mg/dL 7 [facility] Vitamin B12on 08-21-2023 Cobalamin (Vitamin B12) [Mass/Vol] 507 pg/mL Normal 180-914 [facility] Comment on above: Order Comment: Reaso n for Exam Right upper quadrant abdominal pain Performed By: #### H EPATIC, CBC, KEYLA, PT, LIPID, FE and TIBC, NATHALY, LIPASE #### [facility] [address] [place] [address] #### HBSAG, HCV RX PCR, CARSON CHOICE, SMAB, HBSAB, HBCAB, ALPHA PHEN, CERULOP #### [facility] , Vitamin B12 ser/plasOrdered By: Glenna Quinones on 08-21-2023 Cobalamin (Vitamin B12) [Mass/Vol] 507 pg/mL 180-914 [facility] Laboratory - Hematology and Cell countson 05-28-2023 HbA1c (Bld) [Mass fraction] 10.1 % [facility] A1C HEMOGLOBINon 02-19-2023 HbA1c (Bld) [Mass fraction] 8.6 % [employer] Other Glucose - FINGER STICKon Glucose [Mass/Vol] 160 mg/dL [employer] [facility] [employer] Other HbA1c (Bld) [Mass fraction]o n 02-19-2023 A1C HEMOGLOBIN [facility] [employer] Other Pancreatic Elastase, Stoolon 12-06-2022 Pancreatic Elastase, Stool 305 Normal >200 [facility] Comment on above: Order Comment: Reaso n for Exam 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 disease) Result Comment: Resu lt Units: ug Elast./g Severe Pancreatic Insufficiency: <100 Moderate Pancreatic Insufficiency: 100 - 200 Normal: >200 Performed at: - [facility] [id number] Supervisor Instrument Maintenance: Karli Lux MD, Phone: [phone] PERFORMED BY: [place] [address] PATHOLOGIST PUNCH OPERATOR HILARIA REES M.D. Performed By: #### E LASTASE STOOL #### [facility] , CARSON with Reflexon 12-04-2022 CARSON with Reflex Negative Normal Negative [facility] Comment on above: Order Comment: Reaso n for Exam Right upper quadrant abdominal pain Result Comment: Perf ormed at: CB - [facility] [address] [id number] Supervisor Instrument Maintenance: Iftikhar Romero PhD, Phone: [phone] Performed By: #### H EPATIC, CBC, KEYLA, PT, LIPID, FE and TIBC, NATHALY, LIPASE #### [place] [address] [place] #### HBSAG, HCV RX PCR, CARSON CHOICE, SMAB, HBSAB, HBCAB, ALPHA PHEN, CERULOP #### [facility] , Actin smooth muscle IgG Ab [ Units/volume] in SerumOrdered By: Mark Gramajo on 12-04-2022 Actin smooth muscle IgG Qn (S) 6 Units 0-19 [facility] Comment on above: Negative 0 - 19 Weak positive 20 - 30 Moderate to strong positive >30 Actin Antibodies are found in 52-85% of patients with autoimmune hepatitis or chronic active hepatitis and in 22% of patients with primary biliary cirrhosis. Alanine aminotransferase [En zymatic activity/volume] in Serum or PlasmaOrdered By: Mark Gramajo on 12-04-2022 ALT [Catalytic activity/Vol] 15 U/L 7-52 [facility] Albumin [Mass/volume] in Ser um or Plasma by Bromocresol green (BCG) dye binding methoOrdered By: Mark Gramajo on 12-04-2022 Albumin BCG dye [Mass/Vol] 3.9 g/dL 3.5-5.7 [facility] Alkaline phosphatase [Enzyma tic activity/volume] in Serum or PlasmaOrdered By: Mark Gramajo on 12-04-2022 ALP [Catalytic activity/Vol] 83 U/L 34-104 [facility] Vpulb-[id number] Phenotyp davis 12-04-2022 Alpha 1 Anti-Trypsin 137 mg/dL Normal 101-187 [facility] Comment on above: Order Comment: Reaso n for Exam Right upper quadrant abdominal pain Performed By: #### H EPATIC, CBC, KEYLA, PT, LIPID, FE and TIBC, NATHALY, LIPASE #### [place] [address] [place] #### HBSAG, HCV RX PCR, CARSON CHOICE, SMAB, HBSAB, HBCAB, ALPHA PHEN, CERULOP #### [facility] , Phenotype (P1) MM Normal . [facility] Comment on above: Order [...] Ranges used to confirm phenotype. Performed at: [facility] [address] [id number] Supervisor Instrument Maintenance: Iftikhar Romero PhD, Phone: [phone] Performed at: [facility] [address] [id number] Supervisor Instrument Maintenance: Karli Lux MD, Phone: [phone] Performed By: #### H EPATIC, CBC, KEYLA, PT, LIPID, FE and TIBC, NATHALY, LIPASE #### [place] [address] [place] #### HBSAG, HCV RX PCR, CARSON CHOICE, SMAB, HBSAB, HBCAB, ALPHA PHEN, CERULOP #### [facility] , Amylaseon 08-14-2023 Amylase [Catalytic activity/Vol] 33 U/L Normal 29-103 [facility] Comment on above: Order Comment: Reaso n for Exam Right upper quadrant abdominal pain Performed By: #### H EPATIC, CBC, KEYLA, PT, LIPID, FE and TIBC, NATHALY, LIPASE #### [facility] [address] #### HBSAG, HCV RX PCR, CARSON CHOICE, SMAB, HBSAB, HBCAB, ALPHA PHEN, CERULOP #### [facility] , Amylase [Enzymatic activity/ volume] in Serum or PlasmaOrdered By: Mark Gramajo on 12-04-2022 Amylase [Catalytic activity/Vol] 33 U/L 29-103 [facility] Aspartate aminotransferase [ Enzymatic activity/volume] in Serum or PlasmaOrdered By: Mark Gramajo on 12-04-2022 AST [Catalytic activity/Vol] 10 U/L 13-39 [facility] Basophils Auto (Bld) [#/Vol] Ordered By: Mark Gramajo on 12-04-2022 Basophils (Bld) [#/Vol] 0.1 10*3/uL 0.0-0.2 [facility] Basophils/100 WBC Auto (Bld) Ordered By: Mark W[employer] on 12-04-2022 Basophils/100 WBC (Bld) 0.7 % . [facility] Bilirubin.direct [Mass/volum e] in Serum or PlasmaOrdered By: Mark Gramajo on 12-04-2022 Bilirubin.direct [Mass/Vol] 0.10 mg/dL 0.03-0.18 [facility] Bilirubin.total [Mass/volume ] in Serum or PlasmaOrdered By: Mark Gramajo on 12-04-2022 Bilirubin [Mass/Vol] 0.4 mg/dL 0.3-1.0 [facility] Ceruloplasminon 12-04-2022 Ceruloplasmin 33.7 mg/dL Normal 19.0-39.0 [facility] Comment on above: Order Comment: Reaso n for Exam Right upper quadrant abdominal pain Result Comment: Perf ormed at: - [facility] [address] [id number] Supervisor Instrument Maintenance: Iftikhar Romero PhD, Phone: [phone] PERFORMED BY: [place] [address] PATHOLOGIST PUNCH OPERATOR HILARIA REES M.D. Performed By: #### H EPATIC, CBC, KEYLA, PT, LIPID, FE and TIBC, NATHALY, LIPASE #### [address] #### HBSAG, HCV RX PCR, CARSON CHOICE, SMAB, HBSAB, HBCAB, ALPHA PHEN, CERULOP #### [facility] , Cholesterol [Mass/volume] in Serum or PlasmaOrdered By: Mark Gramajo on 12-04-2022 Cholesterol [Mass/Vol] 219 mg/dL 140-200 [facility] Comment on above: Chol less than 200 m g/dl low riskChol 201-239 mg/dl borderline riskChol 240 mg/dl and greater high risk Cholesterol in LDL Calc [Mas s/Vol]Ordered By: Mark Gramajo on 12-04-2022 Cholesterol in LDL [Mass/Vol] 131 mg/dL 0-100 [facility] Comment on above: LDL ATP III CLASSIFI CATIONLDL less than 100 mg/dL OptimalLDL 100-129 mg/dL Near or above optimalLDL 130-159 mg/dL Borderline highLDL 160-189 mg/dL HighLDL greater than 189 mg/dL Very high Cholesterol in VLDL Calc [Ma ss/Vol]Ordered By: Mark Gramajo on 12-04-2022 Cholesterol in VLDL [Mass/Vol] 37 mg/dL [facility] Complete Blood Count Auto Di ffon 12-04-2022 Basophils (Bld) [#/Vol] 0.1 10*3/uL Normal 0.0-0.2 [facility] Comment on above: Order Comment: Reaso n for Exam Right upper quadrant abdominal pain Result Comment: PERF ORMED BY: [place] [address] PATHOLOGIST PUNCH OPERATOR HILARIA REES M.D. Performed By: #### H EPATIC, CBC, KEYLA, PT, LIPID, FE and TIBC, NATHALY, LIPASE #### [address] #### HBSAG, HCV RX PCR, CARSON CHOICE, SMAB, HBSAB, HBCAB, ALPHA PHEN, CERULOP #### [facility] , Basophils/100 WBC (Bld) 0.7 % Normal . [facility] Comment on above: Order Comment: Reaso n for Exam Right upper quadrant abdominal pain Performed By: #### H EPATIC, CBC, KEYLA, PT, LIPID, FE and TIBC, NATHALY, LIPASE #### [address] #### HBSAG, HCV RX PCR, CARSON CHOICE, SMAB, HBSAB, HBCAB, ALPHA PHEN, CERULOP #### [facility] , Eosinophils (Bld) [#/Vol] 0.3 10*3/uL Normal 0.0-0.45 [facility] Comment on above: Order Comment: Reaso n for Exam Right upper quadrant abdominal pain Performed By: #### H EPATIC, CBC, KEYLA, PT, LIPID, FE and TIBC, NATHALY, LIPASE #### [address] #### HBSAG, HCV RX PCR, CARSON CHOICE, SMAB, HBSAB, HBCAB, ALPHA PHEN, CERULOP #### [facility] , Eosinophils/100 WBC (Bld) 2.2 % Normal . [facility] Comment on above: Order Comment: Reaso n for Exam Right upper quadrant abdominal pain Performed By: #### H EPATIC, CBC, KEYLA, PT, LIPID, FE and TIBC, NATHALY, LIPASE #### [place] [address] [place] #### HBSAG, HCV RX PCR, CARSON CHOICE, SMAB, HBSAB, HBCAB, ALPHA PHEN, CERULOP #### [facility] , Erythrocyte distribution width (RBC) [Ratio] 13.7 % Normal 11.9-15.3 [facility] Comment on above: Order Comment: Reaso n for Exam Right upper quadrant abdominal pain Performed By: #### H EPATIC, CBC, KEYLA, PT, LIPID, FE and TIBC, NATHALY, LIPASE #### [address] #### HBSAG, HCV RX PCR, CARSON CHOICE, SMAB, HBSAB, HBCAB, ALPHA PHEN, CERULOP #### [facility] , Hematocrit (Bld) [Volume fraction] 41.4 % Normal 34.0-46.4 [facility] Comment on above: Order Comment: Reaso n for Exam Right upper quadrant abdominal pain Performed By: #### H EPATIC, CBC, KEYLA, PT, LIPID, FE and TIBC, NATHALY, LIPASE #### [address] #### HBSAG, HCV RX PCR, CARSON CHOICE, SMAB, HBSAB, HBCAB, ALPHA PHEN, CERULOP #### [facility] , Hemoglobin (Bld) [Mass/Vol] 13.7 g/dL Normal 11.8-15.4 [facility] Comment on above: Order Comment: Reaso n for Exam Right upper quadrant abdominal pain Performed By: #### H EPATIC, CBC, KEYLA, PT, LIPID, FE and TIBC, NATHALY, LIPASE #### [address] #### HBSAG, HCV RX PCR, CARSON CHOICE, SMAB, HBSAB, HBCAB, ALPHA PHEN, CERULOP #### [facility] , Lymphocytes (Bld) [#/Vol] 2.8 10*3/uL Normal 1.00-4.8 [facility] Comment on above: Order Comment: Reaso n for Exam Right upper quadrant abdominal pain Performed By: #### H EPATIC, CBC, KEYLA, PT, LIPID, FE and TIBC, NATHALY, LIPASE #### [place] [address] [place] #### HBSAG, HCV RX PCR, CARSON CHOICE, SMAB, HBSAB, HBCAB, ALPHA PHEN, CERULOP #### [facility] , Lymphocytes/100 WBC (Bld) 22.5 % Normal . [facility] Comment on above: Order Comment: Reaso n for Exam Right upper quadrant abdominal pain Performed By: #### H EPATIC, CBC, KEYLA, PT, LIPID, FE and TIBC, NATHALY, LIPASE #### [address] #### HBSAG, HCV RX PCR, CARSON CHOICE, SMAB, HBSAB, HBCAB, ALPHA PHEN, CERULOP #### [facility] , MCH (RBC) [Entitic mass] 28.7 pg Normal 24.7-34.3 [facility] Comment on above: Order Comment: Reaso n for Exam Right upper quadrant abdominal pain Performed By: #### H EPATIC, CBC, KEYLA, PT, LIPID, FE and TIBC, NATHALY, LIPASE #### [address] #### HBSAG, HCV RX PCR, CARSON CHOICE, SMAB, HBSAB, HBCAB, ALPHA PHEN, CERULOP #### [facility] , MCV (RBC) [Entitic vol] 86.4 fL Normal 80-100 [facility] Comment on above: Order Comment: Reaso n for Exam Right upper quadrant abdominal pain Performed By: #### H EPATIC, CBC, KEYLA, PT, LIPID, FE and TIBC, NATHALY, LIPASE #### [place] [address] [place] #### HBSAG, HCV RX PCR, CARSON CHOICE, SMAB, HBSAB, HBCAB, ALPHA PHEN, CERULOP #### [facility] , Mean Corpuscular HGB Conc 33.2 g/dL Normal 32.0-35.0 [facility] Comment on above: Order Comment: Reaso n for Exam Right upper quadrant abdominal pain Performed By: #### H EPATIC, CBC, KEYLA, PT, LIPID, FE and TIBC, NATHALY, LIPASE #### [place] [address] [place] #### HBSAG, HCV RX PCR, CARSON CHOICE, SMAB, HBSAB, HBCAB, ALPHA PHEN, CERULOP #### [facility] , Monocytes (Bld) [#/Vol] 0.8 10*3/uL Normal 0.0-0.8 [facility] Comment on above: Order Comment: Reaso n for Exam Right upper quadrant abdominal pain Performed By: #### H EPATIC, CBC, KEYLA, PT, LIPID, FE and TIBC, NATHALY, LIPASE #### [address] #### HBSAG, HCV RX PCR, CARSON CHOICE, SMAB, HBSAB, HBCAB, ALPHA PHEN, CERULOP #### [facility] , Monocytes/100 WBC (Bld) 6.7 % Normal . [facility] Comment on above: Order Comment: Reaso n for Exam Right upper quadrant abdominal pain Performed By: #### H EPATIC, CBC, KEYLA, PT, LIPID, FE and TIBC, NATHALY, LIPASE #### [address] #### HBSAG, HCV RX PCR, CARSON CHOICE, SMAB, HBSAB, HBCAB, ALPHA PHEN, CERULOP #### [facility] , Neutrophils (Bld) [#/Vol] 8.4 10*3/uL High 1.8-7.7 [facility] Comment on above: Order Comment: Reaso n for Exam Right upper quadrant abdominal pain Performed By: #### H EPATIC, CBC, KEYLA, PT, LIPID, FE and TIBC, NATHALY, LIPASE #### [place] [address] [place] #### HBSAG, HCV RX PCR, CARSON CHOICE, SMAB, HBSAB, HBCAB, ALPHA PHEN, CERULOP #### [facility] , Neutrophils/100 WBC (Bld) 67.9 % Normal . [facility] Comment on above: Order Comment: Reaso n for Exam Right upper quadrant abdominal pain Performed By: #### H EPATIC, CBC, KEYLA, PT, LIPID, FE and TIBC, NATHALY, LIPASE #### [place] [id number] [place] #### HBSAG, HCV RX PCR, CARSON CHOICE, SMAB, HBSAB, HBCAB, ALPHA PHEN, CERULOP #### [facility] , NRBC% 0.0 /100{WBC} Normal 0-0.5 [facility] Comment on above: Order Comment: Reaso n for Exam Right upper quadrant abdominal pain Performed By: #### H EPATIC, CBC, KEYLA, PT, LIPID, FE and TIBC, NATHALY, LIPASE #### [address] #### HBSAG, HCV RX PCR, CARSON CHOICE, SMAB, HBSAB, HBCAB, ALPHA PHEN, CERULOP #### [facility] , Platelet mean volume (Bld) [Entitic vol] 7.7 fL Normal 6.3-10.7 [facility] Comment on above: Order Comment: Reaso n for Exam Right upper quadrant abdominal pain Performed By: #### H EPATIC, CBC, KEYLA, PT, LIPID, FE and TIBC, NATHALY, LIPASE #### [address] #### HBSAG, HCV RX PCR, CARSON CHOICE, SMAB, HBSAB, HBCAB, ALPHA PHEN, CERULOP #### [facility] , Platelets (Bld) [#/Vol] 303 10*3/uL Normal 150-450 [facility] Comment on above: Order Comment: Reaso n for Exam Right upper quadrant abdominal pain Performed By: #### H EPATIC, CBC, KEYLA, PT, LIPID, FE and TIBC, NATHALY, LIPASE #### [place] [address] [place] #### HBSAG, HCV RX PCR, CARSON CHOICE, SMAB, HBSAB, HBCAB, ALPHA PHEN, CERULOP #### [facility] , RBC (Bld) [#/Vol] 4.79 10*6/uL Normal 3.60-5.00 [facility] Comment on above: Order Comment: Reaso n for Exam Right upper quadrant abdominal pain Performed By: #### H EPATIC, CBC, KEYLA, PT, LIPID, FE and TIBC, NATHALY, LIPASE #### [facility] [address] [place] [address] [place] #### HBSAG, HCV RX PCR, CARSON CHOICE, SMAB, HBSAB, HBCAB, ALPHA PHEN, CERULOP #### [facility] , WBC (Bld) [#/Vol] 12.3 10*3/uL High 3.8-11.6 [facility] Comment on above: Order Comment: Reaso n for Exam Right upper quadrant abdominal pain Performed By: #### H EPATIC, CBC, KEYLA, PT, LIPID, FE and TIBC, NATHALY, LIPASE #### [facility] [address] [place] [address] [place] #### HBSAG, HCV RX PCR, CARSON CHOICE, SMAB, HBSAB, HBCAB, ALPHA PHEN, CERULOP #### [facility] , Eosinophils Auto (Bld) [#/Vo l]Ordered By: Mark Gramajo on 12-04-2022 Eosinophils (Bld) [#/Vol] 0.3 10*3/uL 0.0-0.45 [facility] Eosinophils/100 WBC Auto (Bl d)Ordered By: Mark Gramajo on 12-04-2022 Eosinophils/100 WBC (Bld) 2.2 % . [facility] Erythrocyte distribution wid th Auto (RBC) [Ratio]Ordered By: Mark Gramajo on 12-04-2022 Erythrocyte distribution width (RBC) [Ratio] 13.7 % 11.9-15.3 [facility] Ferritinon 12-04-2022 Ferritin [Mass/Vol] 56.2 ng/mL Normal 11.0-306.8 [facility] Comment on above: Order Comment: Reaso n for Exam Right upper quadrant abdominal pain Performed By: #### H EPATIC, CBC, KEYLA, PT, LIPID, FE and TIBC, NATHALY, LIPASE #### [facility] [address] [place] [address] [place] #### HBSAG, HCV RX PCR, CARSON CHOICE, SMAB, HBSAB, HBCAB, ALPHA PHEN, CERULOP #### [facility] , Ferritin [Mass/volume] in Se rum or PlasmaOrdered By: Mark Gramajo on 12-04-2022 Ferritin [Mass/Vol] 56.2 ng/mL 11.0-306.8 [facility] Globulin Calc (S) [Mass/Vol] Ordered By: Mark Gramajo on 12-04-2022 Globulin (S) [Mass/Vol] 3.1 g/dL [facility] Hematocrit Auto (Bld) [Volum e fraction]Ordered By: Mark Gramajo on 12-04-2022 Hematocrit (Bld) [Volume fraction] 41.4 % 34.0-46.4 [facility] Hemoglobin [Mass/volume] in BloodOrdered By: Mark Gramajo on 12-04-2022 Hemoglobin (Bld) [Mass/Vol] 13.7 g/dL 11.8-15.4 [facility] Hep C Ab wRfx to Qnt PCRon 0 12-04-2022 Hepatitis C Quantitation Normal [facility] Comment on above: Order Comment: Reaso n for Exam Right upper quadrant abdominal pain Result Comment: HCV Not Detected Performed By: #### H EPATIC, CBC, KEYLA, PT, LIPID, FE and TIBC, NATHALY, LIPASE #### [facility] [address] [place] [address] #### HBSAG, HCV RX PCR, CARSON CHOICE, SMAB, HBSAB, HBCAB, ALPHA PHEN, CERULOP #### [facility] , Hepatitis C Virus Antibody Reactive Critically abnormal Non Reactive [facility] Comment on above: Order Comment: Reaso n for Exam Right upper quadrant abdominal pain Performed By: #### H EPATIC, CBC, KEYLA, PT, LIPID, FE and TIBC, NATHALY, LIPASE #### [facility] [address] [place] [address] [place] #### HBSAG, HCV RX PCR, CARSON CHOICE, SMAB, HBSAB, HBCAB, ALPHA PHEN, CERULOP #### [facility] , Interpretation Normal . [facility] Comment on above: Order Comment: Reaso n for Exam Right upper quadrant abdominal pain Result Comment: Posi tive HCV antibody screen without the presence of HCV RNA is consistent with a resolved past infection or a false positive HCV antibody. Consider repeat testing after one month. Performed at: - [facility] [id number] Supervisor Instrument Maintenance: Iftikhar Romero PhD, Phone: [phone] Performed at: - [facility] [id number] Supervisor Instrument Maintenance: Karli Lux MD, Phone: [phone] Performed By: #### H EPATIC, CBC, KEYLA, PT, LIPID, FE and TIBC, NATHAYL, LIPASE #### [address] #### HBSAG, HCV RX PCR, CARSON CHOICE, SMAB, HBSAB, HBCAB, ALPHA PHEN, CERULOP #### [facility] , Test Information: Normal . [facility] Comment on above: Order Comment: Reaso n for Exam Right upper quadrant abdominal pain Result Comment: The quantitative range of this assay is 15 IU/mL to 100 million IU/mL. Performed By: #### H EPATIC, CBC, KEYLA, PT, LIPID, FE and TIBC, NATHALY, LIPASE #### [address] #### HBSAG, HCV RX PCR, CARSON CHOICE, SMAB, HBSAB, HBCAB, ALPHA PHEN, CERULOP #### [facility] , Hepatic Panelon 12-04-2022 Albumin [Mass/Vol] 3.9 g/dL Normal 3.5-5.7 [facility] Comment on above: Order Comment: Reaso n for Exam Right upper quadrant abdominal pain Performed By: #### H EPATIC, CBC, KEYLA, PT, LIPID, FE and TIBC, NATHALY, LIPASE #### [place] [address] [place] #### HBSAG, HCV RX PCR, CARSON CHOICE, SMAB, HBSAB, HBCAB, ALPHA PHEN, CERULOP #### [facility] , Albumin/Globulin [Mass ratio] 1.3 {ratio} Normal [facility] Comment on above: Order Comment: Reaso n for Exam Right upper quadrant abdominal pain Performed By: #### H EPATIC, CBC, KEYLA, PT, LIPID, FE and TIBC, NATHALY, LIPASE #### [address] #### HBSAG, HCV RX PCR, CARSON CHOICE, SMAB, HBSAB, HBCAB, ALPHA PHEN, CERULOP #### [facility] , ALP [Catalytic activity/Vol] 83 U/L Normal 34-104 [facility] Comment on above: Order Comment: Reaso n for Exam Right upper quadrant abdominal pain Performed By: #### H EPATIC, CBC, KEYLA, PT, LIPID, FE and TIBC, NATHALY, LIPASE #### [address] #### HBSAG, HCV RX PCR, CARSON CHOICE, SMAB, HBSAB, HBCAB, ALPHA PHEN, CERULOP #### [facility] , ALT [Catalytic activity/Vol] 15 U/L Normal 7-52 [facility] Comment on above: Order Comment: Reaso n for Exam Right upper quadrant abdominal pain Performed By: #### H EPATIC, CBC, KEYLA, PT, LIPID, FE and TIBC, NATHALY, LIPASE #### [place] [address] [place] #### HBSAG, HCV RX PCR, CARSON CHOICE, SMAB, HBSAB, HBCAB, ALPHA PHEN, CERULOP #### [facility] , AST [Catalytic activity/Vol] 10 U/L Low 13-39 [facility] Comment on above: Order Comment: Reaso n for Exam Right upper quadrant abdominal pain Performed By: #### H EPATIC, CBC, KEYLA, PT, LIPID, FE and TIBC, NATHALY, LIPASE #### [place] [address] [place] #### HBSAG, HCV RX PCR, CARSON CHOICE, SMAB, HBSAB, HBCAB, ALPHA PHEN, CERULOP #### [facility] , Bilirubin [Mass/Vol] 0.4 mg/dL Normal 0.3-1.0 [facility] Comment on above: Order Comment: Reaso n for Exam Right upper quadrant abdominal pain Performed By: #### H EPATIC, CBC, KEYLA, PT, LIPID, FE and TIBC, NATHALY, LIPASE #### [address] #### HBSAG, HCV RX PCR, CARSON CHOICE, SMAB, HBSAB, HBCAB, ALPHA PHEN, CERULOP #### [facility] , Bilirubin,Indirect 0.3 mg/dL Normal [facility] Comment on above: Order Comment: Reaso n for Exam Right upper quadrant abdominal pain Performed By: #### H EPATIC, CBC, KEYLA, PT, LIPID, FE and TIBC, NATHALY, LIPASE #### [address] #### HBSAG, HCV RX PCR, CARSON CHOICE, SMAB, HBSAB, HBCAB, ALPHA PHEN, CERULOP #### [facility] , Bilirubin.indirect [Mass/Vol] 0.10 mg/dL Normal 0.03-0.18 [facility] Comment on above: Order Comment: Reaso n for Exam Right upper quadrant abdominal pain Performed By: #### H EPATIC, CBC, KEYLA, PT, LIPID, FE and TIBC, NATHALY, LIPASE #### [address] #### HBSAG, HCV RX PCR, CARSON CHOICE, SMAB, HBSAB, HBCAB, ALPHA PHEN, CERULOP #### [facility] , Globulin (S) [Mass/Vol] 3.1 g/dL Normal [facility] Comment on above: Order Comment: Reaso n for Exam Right upper quadrant abdominal pain Performed By: #### H EPATIC, CBC, KEYAL, PT, LIPID, FE and TIBC, NATHALY, LIPASE #### [place] [address] [place] #### HBSAG, HCV RX PCR, CARSON CHOICE, SMAB, HBSAB, HBCAB, ALPHA PHEN, CERULOP #### [facility] , Protein [Mass/Vol] 7.0 g/dL Normal 6.4-8.9 [facility] Comment on above: Order Comment: Reaso n for Exam Right upper quadrant abdominal pain Performed By: #### H EPATIC, CBC, KEYLA, PT, LIPID, FE and TIBC, NATHALY, LIPASE #### [facility] [address] [place] [address] #### HBSAG, HCV RX PCR, CARSON CHOICE, SMAB, HBSAB, HBCAB, ALPHA PHEN, CERULOP #### [facility] , Hepatitis B Core Antibodyon 12-04-2022 Hepatitis B Core Antibody Negative Normal Negative [facility] Comment on above: Order Comment: Reaso n for Exam Right upper quadrant abdominal pain Result Comment: Perf ormed at: [facility] [id number] Supervisor Instrument Maintenance: Iftikhar Romero PhD, Phone: [phone] Performed By: #### H EPATIC, CBC, KEYLA, PT, LIPID, FE and TIBC, NATHALY, LIPASE #### [address] #### HBSAG, HCV RX PCR, CARSON CHOICE, SMAB, HBSAB, HBCAB, ALPHA PHEN, CERULOP #### [facility] , Hepatitis B Surface Antibody on 12-04-2022 Hepatitis B Surface Antibody Non-Reactive Normal . [facility] Comment on above: Order Comment: Reaso n for Exam Right upper quadrant abdominal pain Result Comment: Non Reactive: Inconsistent with immunity, less than 10 mIU/mL Reactive: Consistent with immunity, greater than 9.9 mIU/mL Performed By: #### H EPATIC, CBC, KEYLA, PT, LIPID, FE and TIBC, NATHALY, LIPASE #### [facility] [address] [place] [address] #### HBSAG, HCV RX PCR, CARSON CHOICE, SMAB, HBSAB, HBCAB, ALPHA PHEN, CERULOP #### [facility] , Hepatitis B Surface Antigeno n 12-04-2022 HBsAg Screen Negative Normal Negative [facility] Comment on above: Order Comment: Reaso n for Exam Right upper quadrant abdominal pain Result Comment: PERF ORMED BY: [place] [address] PATHOLOGIST PUNCH OPERATOR HILARIA REES M.D. Performed By: #### H EPATIC, CBC, KEYLA, PT, LIPID, FE and TIBC, NATHALY, LIPASE #### [facility] [address] [place] [address] #### HBSAG, HCV RX PCR, CARSON CHOICE, SMAB, HBSAB, HBCAB, ALPHA PHEN, CERULOP #### [facility] , Hepatitis B virus surface Ag [Presence] in Serum or Plasma by ImmunoassayOrdered By: Mark Gramajo on 12-04-2022 HBV surface Ag IA Ql Negative Negative [facility] INR in Platelet poor plasma by Coagulation assayOrdered By: Mark Gramajo on 12-04-2022 INR Coag (PPP) [Relative time] 1.0 {INR} [facility] Comment on above: INR Therapeutic Rang e [...] on 12-04-2022 Iron [Mass/Vol] 51 ug/dL 50-212 [facility] Iron and TIBC Profileon 11-21 % Iron Saturation 14.0 % Low 20-50 [facility] Comment on above: Order Comment: Reaso n for Exam Right upper quadrant abdominal pain Performed By: #### H EPATIC, CBC, KEYLA, PT, LIPID, FE and TIBC, NATHALY, LIPASE #### [facility] [address] [place] [address] [place] #### HBSAG, HCV RX PCR, CARSON CHOICE, SMAB, HBSAB, HBCAB, ALPHA PHEN, CERULOP #### [facility] , Iron [Mass/Vol] 51 ug/dL Normal 50-212 [facility] Comment on above: Order Comment: Reaso n for Exam Right upper quadrant abdominal pain Performed By: #### H EPATIC, CBC, KEYLA, PT, LIPID, FE and TIBC, NATHALY, LIPASE #### [facility] [address] [place] [address] [place] #### HBSAG, HCV RX PCR, CARSON CHOICE, SMAB, HBSAB, HBCAB, ALPHA PHEN, CERULOP #### [facility] , Total Iron Binding Capacity 364 ug/dL Normal 255-450 [facility] Comment on above: Order Comment: Reaso n for Exam Right upper quadrant abdominal pain Performed By: #### H EPATIC, CBC, KEYLA, PT, LIPID, FE and TIBC, NATHALY, LIPASE #### [address] #### HBSAG, HCV RX PCR, CARSON CHOICE, SMAB, HBSAB, HBCAB, ALPHA PHEN, CERULOP #### [facility] , Transferrin [Mass/Vol] 260 mg/dL Normal 203-[address] [facility] Comment on above: Order Comment: Reaso n for Exam Right upper quadrant abdominal pain Performed By: #### H EPATIC, CBC, KEYLA, PT, LIPID, FE and TIBC, NATHALY, LIPASE #### [place] [address] [place] #### HBSAG, HCV RX PCR, CARSON CHOICE, SMAB, HBSAB, HBCAB, ALPHA PHEN, CERULOP #### [facility] , Iron binding capacity [Mass/ volume] in Serum or PlasmaOrdered By: Mark Gramajo on 12-04-2022 Iron binding capacity [Mass/Vol] 364 ug/dL 255-450 [facility] Iron saturation [Mass Fracti on] in Serum or PlasmaOrdered By: Mark Gramajo on 12-04-2022 Iron saturation [Mass fraction] 14.0 % 20-50 [facility] Laboratory - CoagulationOrde red By: Mark Gramajo on 12-04-2022 PT Coag (PPP) [Time] 11.3 s 9.0-12.9 [facility] Leukocytes [#/volume] correc tu for nucleated erythrocytes in Blood by Automated counOrdered By: Mark Gramajo on 12-04-2022 WBC corrected for nucl RBC Auto (Bld) [#/Vol] 12.3 10*3/uL 3.8-11.6 [facility] Lipaseon 12-04-2022 Lipase [Catalytic activity/Vol] 18.0 U/L Normal 11.0-82.0 [facility] Comment on above: Order Comment: Reaso n for Exam Right upper quadrant abdominal pain Performed By: #### H EPATIC, CBC, KEYLA, PT, LIPID, FE and TIBC, NATHALY, LIPASE #### [facility] [address] [place] [address] [place] #### HBSAG, HCV RX PCR, CARSON CHOICE, SMAB, HBSAB, HBCAB, ALPHA PHEN, CERULOP #### [facility] , Lipase [Enzymatic activity/v olume] in Serum or PlasmaOrdered By: Mark Gramajo on 12-04-2022 Lipase [Catalytic activity/Vol] 18.0 U/L 11.0-82.0 [facility] Lipid Panelon 12-04-2022 Cholesterol [Mass/Vol] 219 mg/dL High 140-200 [facility] Comment on above: Order Comment: Reaso n for Exam Right upper quadrant abdominal pain Result Comment: Chol less than 200 mg/dl low risk Chol 201-239 mg/dl borderline risk Chol 240 mg/dl and greater high risk Performed By: #### H EPATIC, CBC, KEYLA, PT, LIPID, FE and TIBC, NATHALY, LIPASE #### [facility] [address] [place] [address] [place] #### HBSAG, HCV RX PCR, CARSON CHOICE, SMAB, HBSAB, HBCAB, ALPHA PHEN, CERULOP #### [facility] , Cholesterol in HDL [Mass/Vol] 50 mg/dL Normal 23-92 [facility] Comment on above: Order Comment: Reaso n for Exam Right upper quadrant abdominal pain Result Comment: HDL CHOL ATP-III CLASSIFICATION Cardiovascular Risk HDL > or equal to 60 mg/dL LOW HDL < 40 mg/dL HIGH Performed By: #### H EPATIC, CBC, KEYLA, PT, LIPID, FE and TIBC, NATHALY, LIPASE #### [address] #### HBSAG, HCV RX PCR, CARSON CHOICE, SMAB, HBSAB, HBCAB, ALPHA PHEN, CERULOP #### [facility] , Cholesterol.total/Chol esterol in HDL [Mass ratio] 4.4 {ratio} Normal <5.0 [facility] Comment on above: Order Comment: Reaso n for Exam Right upper quadrant abdominal pain Result Comment: PERF ORMED BY: [place] [address] PATHOLOGIST PUNCH OPERATOR HILARIA REES M.D. Performed By: #### H EPATIC, CBC, KEYLA, PT, LIPID, FE and TIBC, NATHALY, LIPASE #### [address] #### HBSAG, HCV RX PCR, CARSON CHOICE, SMAB, HBSAB, HBCAB, ALPHA PHEN, CERULOP #### [facility] , LDL Cholesterol,Calculated 131 mg/dL High 0-100 [facility] Comment on above: Order Comment: [...] LIPID, FE and TIBC, NATHALY, LIPASE #### [address] #### HBSAG, HCV RX PCR, CARSON CHOICE, SMAB, HBSAB, HBCAB, ALPHA PHEN, CERULOP #### [facility] , Triglyceride w/Reflex 189 mg/dL High 0-149 [facility] Comment on above: Order Comment: [...] LIPID, FE and TIBC, NATHALY, LIPASE #### [facility] [address] [place] [address] [place] #### HBSAG, HCV RX PCR, CARSON CHOICE, SMAB, HBSAB, HBCAB, ALPHA PHEN, CERULOP #### [facility] , VLDL CHOLESTEROL 37 mg/dL Normal [facility] Comment on above: Order Comment: Reaso n for Exam Right upper quadrant abdominal pain Performed By: #### H EPATIC, CBC, KEYLA, PT, LIPID, FE and TIBC, NATHALY, LIPASE #### [facility] [address] [place] [address] [place] #### HBSAG, HCV RX PCR, CARSON CHOICE, SMAB, HBSAB, HBCAB, ALPHA PHEN, CERULOP #### [facility] , Lymphocytes Auto (Bld) [#/Vo l]Ordered By: Mark Gramajo on 12-04-2022 Lymphocytes (Bld) [#/Vol] 2.8 10*3/uL 1.00-4.8 [facility] Lymphocytes/100 WBC Auto (Bl d)Ordered By: Mark Gramajo on 12-04-2022 Lymphocytes/100 WBC (Bld) 22.5 % . [facility] MCH Auto (RBC) [Entitic mass ]Ordered By: Mark Gramajo on 12-04-2022 MCH (RBC) [Entitic mass] 28.7 pg 24.7-34.3 [facility] MCHC Auto (RBC) [Mass/Vol]Or dered By: Mark Gramajo on 12-04-2022 MCHC (RBC) [Mass/Vol] 33.2 g/dL 32.0-35.0 [facility] MCV Auto (RBC) [Entitic vol] Ordered By: Mark Gramajo on 12-04-2022 MCV (RBC) [Entitic vol] 86.4 fL 80-100 [facility] Monocytes Auto (Bld) [#/Vol] Ordered By: Mark Gramajo on 12-04-2022 Monocytes (Bld) [#/Vol] 0.8 10*3/uL 0.0-0.8 [facility] Monocytes/100 WBC Auto (Bld) Ordered By: Mark Gramajo on 12-04-2022 Monocytes/100 WBC (Bld) 6.7 % . [facility] Neutrophils Auto (Bld) [#/Vo l]Ordered By: Mark Gramajo on 12-04-2022 Neutrophils (Bld) [#/Vol] 8.4 10*3/uL 1.8-7.7 [facility] Neutrophils/100 WBC Auto (Bl d)Ordered By: Mark Gramajo on 12-04-2022 Neutrophils/100 WBC (Bld) 67.9 % . [facility] No Panel InformationOrdered By: Mark Gramajo on 12-04-2022 Hepatitis B Core Total Antibody Negative Negative [facility] Comment on above: Performed at: - [facility] [place] [id number] Director: Iftikhar Romero PhD, Phone: [phone] Hepatitis C RNA Quantitative N/A [facility] Nucleated erythrocytes [Pres ence] in Blood by Automated countOrdered By: Mark Gramajo on 12-04-2022 Nucleated RBC Auto Ql (Bld) 0.0 /100{WBC} 0-0.5 [facility] Platelet mean volume Auto (B ld) [Entitic vol]Ordered By: Mark Gramajo on 12-04-2022 Platelet mean volume (Bld) [Entitic vol] 7.7 fL 6.3-10.7 [facility] Platelets Auto (Bld) [#/Vol] Ordered By: Mark Gramajo on 12-04-2022 Platelets (Bld) [#/Vol] 303 10*3/uL 150-450 [facility] Protein [Mass/volume] in Ser um or PlasmaOrdered By: Mark Gramajo on 12-04-2022 Protein [Mass/Vol] 7.0 g/dL 6.4-8.9 [facility] Prothrombin Time INRon 12-04 INR Coag (PPP) [Relative time] 1.0 {INR} Normal [facility] Comment on above: Order Comment: [...] heart valves: 3 - 4.5 PERFORMED BY: [place] [address] PATHOLOGIST PUNCH OPERATOR HILARIA REES M.D. Performed By: #### H EPATIC, CBC, KEYLA, PT, LIPID, FE and TIBC, NATHALY, LIPASE #### [facility] [address] [place] [address] #### HBSAG, HCV RX PCR, CARSON CHOICE, SMAB, HBSAB, HBCAB, ALPHA PHEN, CERULOP #### [facility] , PT Coag (PPP) [Time] 11.3 s Normal 9.0-12.9 [facility] Comment on above: Order Comment: Reaso n for Exam Right upper quadrant abdominal pain Performed By: #### H EPATIC, CBC, KEYLA, PT, LIPID, FE and TIBC, NATHALY, LIPASE #### [facility] [address] [place] [address] #### HBSAG, HCV RX PCR, CARSON CHOICE, SMAB, HBSAB, HBCAB, ALPHA PHEN, CERULOP #### [facility] , RBC Auto (Bld) [#/Vol]Ordere d By: Mark Gramajo on 12-04-2022 RBC (Bld) [#/Vol] 4.79 10*6/uL 3.60-5.00 [facility] Serum hepatitis B virus surf yessy antibody detectionOrdered By: Mark Gramajo on 12-04-2022 HBV surface Ab Ql (S) Non-Reactive . [facility] Comment on above: Non Reactive: Incons istent with immunity, less than 10 mIU/mL Reactive: Consistent with immunity, greater than 9.9 mIU/mL Serum or plasma albumin/glob ulin mass ratioOrdered By: Mark Gramajo on 12-04-2022 Albumin/Globulin [Mass ratio] 1.3 {ratio} [facility] Serum or plasma ceruloplasmi n measurement (mass/volume)Ordered By: Mark Gramajo on 12-04-2022 Ceruloplasmin [Mass/Vol] 33.7 mg/dL 19.0-39.0 [facility] Comment on above: Performed at: [facility] [place] [id number] Director: Iftikhar Romero PhD, Phone: [phone] Serum or plasma free cefurox jocy measurement (mass/volume)Ordered By: Mark Gramajo on 12-04-2022 Cefuroxime free [Mass/Vol] Negative Negative [facility] Comment on above: Performed at: [id number] [place], [place] [id number] Director: Iftikhar Romero PhD, Phone: [phone] Serum or plasma high density lipoprotein (HDL) cholesterol measurementOrdered By: Mark Gramajo on 12-04-2022 Cholesterol in HDL [Mass/Vol] 50 mg/dL 23- [facility] Comment on above: HDL CHOL ATP-III CLA SSIFICATION Cardiovascular RiskHDL > or equal to 60 mg/dL LOWHDL < 40 mg/dL HIGH Serum or plasma non-glucuron idated bilirubin measurement (mass/volume)Ordered By: Mark Gramajo on 12-04-2022 Bilirubin.indirect [Mass/Vol] 0.3 mg/dL [facility] Serum or plasma total choles terol/high density lipoprotein (HDL) cholesterol mass ratOrdered By: Mark Gramajo on 12-04-2022 Cholesterol.total/Chol esterol in HDL [Mass ratio] 4.4 {ratio} <5.0 [facility] Smooth Muscle Antibodyon Smooth Muscle Antibody 6 Normal 0-19 [facility] Comment on above: Order Comment: Reaso n for Exam Right upper quadrant abdominal pain Result Comment: Nega tive 0 - 19 Weak positive 20 - 30 Moderate to strong positive >30 Actin Antibodies are found in 52-85% of patients with autoimmune hepatitis or chronic active hepatitis and in 22% of patients with primary biliary cirrhosis. PERFORMED BY: [place] [address] PATHOLOGIST PUNCH OPERATOR HILARIA REES M.D. Performed By: #### H EPATIC, CBC, KEYLA, PT, LIPID, FE and TIBC, NATHALY, LIPASE #### [facility] [address] [place] [address] [place] #### HBSAG, HCV RX PCR, CARSON CHOICE, SMAB, HBSAB, HBCAB, ALPHA PHEN, CERULOP #### [facility] , Transferrin [Mass/volume] in Serum or PlasmaOrdered By: Mark Gramjao on 12-04-2022 Transferrin [Mass/Vol] 260 mg/dL 203-362 [facility] Triglyceride [Mass/volume] i n Serum or PlasmaOrdered By: Mark Gramajo on 12-04-2022 Triglyceride [Mass/Vol] 189 mg/dL 0-149 [facility] Comment on above: TRIG ATP III CLASSIF ICATIONTRIG less than 150 mg/dL NormalTRIG 150-199 mg/dL Borderline highTRIG 200-500 mg/dL High TRIG greater than 500 mg/dL Very highStandard traceable to the Center for Disease Conrtrol and Prevention (CDC) test method. US liveron 12-04-2022 liver [facility] [place] [address] [place] [address] Ultrasound Report Signed Patient: Tasha Paul MR#: [id number] : 1975 Acct:[id number] Age/Sex: 47 / F ADM Date: 12/04/22 [facility]: [facility]: [facility]: Mark Gramajo APRN Ordering Provider: Mark Gramajo APRN Date of [...] Phu Jamil M.D.12/04/2022 2:47 PM Dictation Location: [place] [address] Tech: Bhargavi Torres Transcribed By: FLORENTINO 12/04/22 144 Dictated By: Phu Jamil DO 12/04/22 144 Signed By: 12/04/22 1447 Normal [facility] WBC Auto (Bld) [#/Vol]Ordere d By: Mark Gramajo on 12-04-2022 WBC (Bld) [#/Vol] 12.3 10*3/uL 3.8-11.6 [facility] Glucose - FINGER STICKon Glucose [Mass/Vol] 197 mg/dL [employer] Other A1C HEMOGLOBINon 08-30-2022 HbA1c (Bld) [Mass fraction] 7.4 % [employer] Other Glucose - FINGER STICKon Glucose [Mass/Vol] 144 mg/dL [employer] Other HbA1c (Bld) [Mass fraction]o n 08-30-2022 A1C HEMOGLOBIN [facility] [employer] Other US SINGLE QUAD RT UPPERon US [...] by: VALERIANO SINCLAIR Date: 2022-08-11 11:38 Normal [facility] ACETONE SERUMon 08-07-2022 ACETONE Negative Normal NEGATIVE [facility] Comment on above: Performed By: #### A CETON #### [facility] [address] [place] [address] Dr. Annabelle Kilgore CBC AUTO DIFFon 08-07-2022 BASO # 0.1 103/ul Normal 0.0-0.1 [facility] Comment on above: Performed By: #### C BC #### [facility] [address] [place] [address] Dr. Annabelle Kilgore Basophils/100 WBC (Bld) 0.7 % Normal 0.2-2.0 [facility] Comment on above: Performed By: #### C BC #### [facility] [address] [place] [address] Dr. Annabelle Kilgore EO # 0.1 103/ul Normal 0.0-0.7 [facility] Comment on above: Performed By: #### C BC #### [facility] [address] [place] [address] Dr. Annabelle Kilgore Eosinophils/100 WBC (Bld) 0.7 % Critically low 0.9-7.0 [facility] Comment on above: Performed By: #### C BC #### [facility] [address] [place] [address] Dr. Annabelle Kilgore Erythrocyte distribution width (RBC) [Ratio] 12.7 % Normal 11.0-15.0 [facility] Comment on above: Performed By: #### C BC #### [facility] [address] [place] [address] Dr. Annabelle Kilgore Hematocrit (Bld) [Volume fraction] 38.9 % Normal 36.0-48.0 [facility] Comment on above: Performed By: #### C BC #### [facility] [address] [place] [address] Dr. Annabelle Kilgore Hemoglobin (Bld) [Mass/Vol] 13.4 g/dL Normal 12.0-16.0 [facility] Comment on above: Performed By: #### C BC #### [facility] [address] [place] [address] [address] Annabelle Kilgore IG # 0.05 10e3/ul Critically high 0.00-0.03 [facility] Comment on above: Performed By: #### C BC #### [facility] [address] [place] [address] Dr. Annabelle Kilgore IG % 0.4 % Normal 0.0-0.5 [facility] Comment on above: Performed By: #### C BC #### [facility] [address] [place] [address] Dr. Annabelle Kilgore LYMPH # 3.5 103/ul Normal 1.2-3.8 [facility] Comment on above: Performed By: #### C BC #### [facility] [address] [place] [address] Dr. Annabelle Kilgore Lymphocytes/100 WBC (Bld) 25.1 % Normal 20.5-60.0 [facility] Comment on above: Performed By: #### C BC #### [facility] [address] [place] [address] Dr. Annabelle Kilgore MANUAL DIFF REQ NO Normal [facility] Comment on above: Performed By: #### C BC #### [facility] [address] [place] [address] Dr. Annabelle Kilgore MCH (RBC) [Entitic mass] 29.5 pg Normal 26.7-34.0 [facility] Comment on above: Performed By: #### C BC #### [facility] [address] [place] [address] Dr. Annabelle Kilgore MCHC (RBC) [Mass/Vol] 34.4 g/dL Normal 29.9-35.2 [facility] Comment on above: Performed By: #### C BC #### [facility] [address] [place] [address] Dr. Annabelle Kilgore MCV (RBC) [Entitic vol] 85.7 fL Normal 81.0-99.0 [facility] Comment on above: Performed By: #### C BC #### [facility] [address] [place] [address] [address] Annabelle Kilgore MONO # 1.1 103/ul Critically high 0.3-0.8 [facility] Comment on above: Performed By: #### C BC #### [facility] [address] [place] [address] Dr. Annabelle Kilgore Monocytes/100 WBC (Bld) 7.8 % Normal 1.7-12.0 [facility] Comment on above: Performed By: #### C BC #### [facility] [address] [place] [address] Dr. Annabelle Kilgore NEUT # 9.2 103/ul Critically high 1.4-6.5 [facility] Comment on above: Performed By: #### C BC #### [facility] [address] [place] [address] Dr. Annabelle Kilgore Neutrophils/100 WBC (Bld) 65.3 % Normal 43.0-75.0 [facility] Comment on above: Performed By: #### C BC #### [facility] [address] [place] [address] Dr. Annabelle Kilgore Platelet mean volume (Bld) [Entitic vol] 9.8 fL Normal 9.5-13.5 [facility] Comment on above: Performed By: #### C BC #### [facility] [address] [place] [address] Dr. Annabelle Kilgore PLT 326 103/ul Normal 150-450 [facility] Comment on above: Performed By: #### C BC #### [facility] [address] [place] [address] Dr. Annabelle Kilgore RBC 4.54 106/ul Normal 4.20-5.40 [facility] Comment on above: Performed By: #### C BC #### [facility] [address] [place], [place] [address] Dr. Annabelle Kilgore WBC 14.0 103/ul Critically high 4.0-11.0 [facility] Comment on above: Performed By: #### C BC #### [facility] [address] [place], [place] [address] ABD/PELVIS WO CONon [...] Sharad PATEL Date: 2022-08-07 02:10 Normal [facility] ER URINE PROFILEon 3 Bilirubin Ql (U) SMALL Abnormal NEGATIVE [facility] Comment on above: Performed By: #### E RUR #### [facility] [address] [place] [address] Dr. Annabelle Kilgore Clarity (U) SL CLOUDY Abnormal CLEAR [facility] Comment on above: Performed By: #### E RUR #### [facility] [address] [place] [address] Dr. Annabelle Kilgore Color (U) LT. YELLOW Normal YELLOW [facility] Comment on above: Performed By: #### E RUR #### [facility] [address] [place] [address] Dr. Annabelle Kilgore ERUAHD A micrscopic examina tion will be performed if indicated. Normal [facility] Comment on above: Performed By: #### E RUR #### [facility] [address] [place] [address] Dr. Annabelle Kilgore Glucose Ql (U) Negative Normal NEGATIVE [facility] Comment on above: Performed By: #### E RUR #### [facility] [address] [place] [address] Dr. Annabelle Kilgore Hemoglobin Ql (U) Negative Normal NEGATIVE [facility] Comment on above: Performed By: #### E RUR #### [facility] [address] [place] [address] Dr. Annabelle Kilgore Ketones Ql (U) 15 mg/dl Abnormal NEGATIVE [facility] Comment on above: Performed By: #### E RUR #### [facility] [address] [place] [address] Dr. Annabelle Kilgore LEUKOCYTES Negative Normal NEGATIVE [facility] Comment on above: Performed By: #### E RUR #### [facility] [address] [place] [address] Dr. Annabelle Kilgore Nitrite Ql (U) Negative Normal NEGATIVE [facility] Comment on above: Performed By: #### E RUR #### [facility] [address] [place] [address] Dr. Annabelle Kilgore pH (U) 5.5 [pH] Normal 5-9 [facility] Comment on above: Performed By: #### E RUR #### [facility] [address] [place] [address] Dr. Annabelle Kilgore SPEC GRAVITY 1.030 Abnormal 1.005-<=1. 025 [facility] Comment on above: Performed By: #### E RUR #### [facility] [address] [place] [address] Dr. Annabelle Kilgore UA PROTEIN Negative Normal NEGATIVE/ TRACE [facility] Comment on above: Performed By: #### E RUR #### [facility] [address] [place] [address] Dr. Annabelle Kilgore UR MICRO IND NOT INDICATED Normal [facility] Comment on above: Performed By: #### E RUR #### [facility] [address] [place] [address] Dr. Annabelle Kilgore Urobilinogen Qn (U) 0.2 {Floyd'U}/dL Normal 0.2 - 1. 0 [facility] Comment on above: Performed By: #### E RUR #### [facility] [address] [place] [address] Dr. Annabelle Kilgore LACTATE/LACTIC ACIDon 2022 Lactate [Moles/Vol] 1.1 mmol/L Normal 0.4-2.0 [facility] Comment on above: Performed By: #### L ACT #### [facility] [address] [place] [address] Dr. Annabelle Kilgore LIPASEon 08-07-2022 Lipase [Catalytic activity/Vol] 37.0 U/L Critically low 73.0-393.0 [facility] Comment on above: Performed By: #### L IPA #### [facility] [address] [place] [address] Dr. Annabelle Kilgore PH VENOUS BLOODon 08-07-2022 PCO2 VENOUS 37.0 mmHg Critically low 40.0-52.0 [facility] Comment on above: Performed By: #### P HVEN ####[facility] [address] [place], [place] [address]MoDr. Annabelle Kilgore pH VENOUS 7.415 Normal 7.330-7.43 0 [facility] Comment on above: Performed By: #### P HVEN ####[facility] [address] [place], [place] [address]ChDr. Annabelle Kilgore PROF 14(COMP METB)on 023 Albumin [Mass/Vol] 3.5 g/dL Normal 3.4-5.0 [facility] Comment on above: Performed By: #### C MP, HSTROPN #### [facility] [address] [place] [address] [address] Annabelle Kilgore Albumin/Globulin [Mass ratio] 0.9 {ratio} Normal [facility] Comment on above: Performed By: #### C MP, HSTROPN #### [facility] [address] [place] [address] [address] Annabelle Kilgore ALP [Catalytic activity/Vol] 82 U/L Normal 46-116 [facility] Comment on above: Performed By: #### C MP, HSTROPN #### [facility] [address] [place] [address] [address] Annabelle Kilgore ALT [Catalytic activity/Vol] 35 U/L Normal 14-59 [facility] Comment on above: Performed By: #### C MP, HSTROPN #### [facility] [address] [place] [address] [address] Annabelle Kilgore Anion gap [Moles/Vol] 18.2 mmol/L Normal [facility] Comment on above: Performed By: #### C MP, HSTROPN #### [facility] [address] [place] [address] [address] Annabelle Kilgore AST [Catalytic activity/Vol] 21 U/L Normal 15-37 [facility] Comment on above: Performed By: #### C MP, HSTROPN #### [facility] [address] [place] [address] [address] Annabelle Kilgore Bilirubin [Mass/Vol] 0.5 mg/dL Normal 0.2-1.0 [facility] Comment on above: Performed By: #### C MP, HSTROPN #### [facility] [address] [place] [address] Dr. Annabelle Kilgore Calcium [Mass/Vol] 9.2 mg/dL Normal 8.5-10.1 [facility] Comment on above: Performed By: #### C MP, HSTROPN #### [facility] [address] [place] [address] Dr. Annabelle Kilgore Chloride [Moles/Vol] 104 mmol/L Normal 98-107 [facility] Comment on above: Performed By: #### C MP, HSTROPN #### [facility] [address] [place] [address] Dr. Annabelle Kilgore CO2 [Moles/Vol] 23.1 mmol/L Normal 21.0-32.0 [facility] Comment on above: Performed By: #### C MP, HSTROPN #### [facility] [address] [place] [address] Dr. Annabelle Kilgore Creatinine [Mass/Vol] 0.65 mg/dL Normal 0.55-1.02 [facility] Comment on above: Performed By: #### C GÉNESIS, HSTROPN #### [facility] [address] [place] [address] Dr. Annabelle Kilgore EGFR-AF FILIPINO >60 Normal >=60 [facility] Comment on above: Performed By: #### C MP, HSTROPN #### [facility] [address] [place] [address] Dr. Annabelle Kilgore EGFR-NON AF FILIPINO >60 Normal >=60 [facility] Comment on above: Performed By: #### C MP, HSTROPN #### [facility] [address] [place] [address] Dr. Annabelle Kilgore Globulin (S) [Mass/Vol] 3.9 g/dL Normal [facility] Comment on above: Performed By: #### C MP, HSTROPN #### [facility] [address] [place] [address] Dr. Annabelle Kilgore Glucose [Mass/Vol] 122 mg/dL Critically high 74-106 [facility] Comment on above: Performed By: #### C MP, HSTROPN #### [facility] [address] [place] [address] Dr. Annabelle Kilgore Potassium [Moles/Vol] 3.3 mmol/L Critically low 3.5-5.1 [facility] Comment on above: Performed By: #### C MP, HSTROPN #### [facility] [address] [place] [address] Dr. Annabelle Kilgore Protein [Mass/Vol] 7.4 g/dL Normal 6.4-8.2 [facility] Comment on above: Performed By: #### C MP, HSTROPN #### [facility] [address] [place] [address] Dr. Annabelle Kilgore Sodium [Moles/Vol] 142 mmol/L Normal 136-145 [facility] Comment on above: Performed By: #### C MP, HSTROPN #### [facility] [address] [place] [address] Dr. Annabelle Kilgore Urea nitrogen [Mass/Vol] 15.0 mg/dL Normal 7.0-18.0 [facility] Comment on above: Performed By: #### C MP, HSTROPN #### [facility] [address] [place] [address] Dr. Annabelle Kilgore Urea nitrogen/Creatinine [Mass ratio] 23.1 mg/mg Normal [facility] Comment on above: Performed By: #### C MP, HSTROPN #### [facility] [address] [place] [address] Dr. Annabelle Kilgore TROPONIN, HIGH SENSITIVITYon 08-07-2022 HSTROP 30.1 pg/mL Normal 4.0-51.3 [facility] Comment on above: Result Comment: CUT- OFF POINTS HAVE BEEN ESTABLISHED BASED ON THE FOURTH UNIVERSAL DEFINITIONS OF MYOCARDIAL INFARCTION. THE UPPER REFERENCE LIMIT (URL) OF TROPONIN, DEFINED THE 99TH PERCENTILE OF cTnI DISTRIBUTION IN A REFERENCE POPULATION, HAS BEEN CONFIRMED THE DECISION THRESHOLD FOR [place] DIAGNOSIS. Performed By: #### C , HSTROPN #### [facility] [address] [place] [address] [address] Annabelle Kilgore MG MAMM SCREEN 3D HECTOR CADon 08-04-2022 MG MAMM SCREEN 3D HECTOR CAD Patient: TASHA PAUL Exam Date: 08/04/2022 : 1975 Gender:F [facility] #: [id number] Family : Order #: [id number] CLICK HERE TO VIEW EXAM RADIOLOGY REPORT [...] ovarian cancer at age 42. LOCATION: [facility] BREAST COMPOSITION: Scattered areas fibroglandular density. FINDINGS: [...] MD on 08/07/2022 at 10:05 Normal [facility] Alanine aminotransferase [En zymatic activity/volume] in Serum or PlasmaOrdered By: Glenna Quinones on 07-19-2022 ALT [Catalytic activity/Vol] 25 U/L 7-52 [facility] Albumin [Mass/volume] in Ser um or Plasma by Bromocresol green (BCG) dye binding methoOrdered By: Glenna Quinones on 07-19-2022 Albumin BCG dye [Mass/Vol] 4.2 g/dL 3.5-5.7 [facility] Alkaline phosphatase [Enzyma tic activity/volume] in Serum or PlasmaOrdered By: Glenna Quinones on 07-19-2022 ALP [Catalytic activity/Vol] 84 U/L 34-104 [facility] Aspartate aminotransferase [ Enzymatic activity/volume] in Serum or PlasmaOrdered By: Glenna Quinones on 07-19-2022 AST [Catalytic activity/Vol] 17 U/L 13-39 [facility] Bilirubin.total [Mass/volume ] in Serum or PlasmaOrdered By: Glenna Quinones on 07-19-2022 Bilirubin [Mass/Vol] 0.6 mg/dL 0.3-1.0 [facility] Calcium [Mass/volume] in Ser um or PlasmaOrdered By: Glenna Quinones on 07-19-2022 Calcium [Mass/Vol] 9.6 mg/dL 8.6-10.3 [facility] Carbon dioxide, total [Moles /volume] in Serum or PlasmaOrdered By: Glenna Quinones on 07-19-2022 CO2 [Moles/Vol] 26.4 mmol/L 21.0-31.0 [facility] Chloride [Moles/volume] in S cindy or PlasmaOrdered By: Glenna Quinones on 07-19-2022 Chloride [Moles/Vol] 102 mmol/L 98-107 [facility] Cholesterol [Mass/volume] in Serum or PlasmaOrdered By: Glenna Quinones on 07-19-2022 Cholesterol [Mass/Vol] 144 mg/dL 140-200 [facility] Comment on above: Chol less than 200 m g/dl low riskChol 201-239 mg/dl borderline riskChol 240 mg/dl and greater high risk Cholesterol in LDL Calc [Mas s/Vol]Ordered By: Glenna Quinones on 07-19-2022 Cholesterol in LDL [Mass/Vol] 66 mg/dL 0-100 [facility] Comment on above: LDL ATP III CLASSIFI CATIONLDL less than 100 mg/dL OptimalLDL 100-129 mg/dL Near or above optimalLDL 130-159 mg/dL Borderline highLDL 160-189 mg/dL HighLDL greater than 189 mg/dL Very high Cholesterol in VLDL Calc [Ma ss/Vol]Ordered By: Glenna Quinones on 07-19-2022 Cholesterol in VLDL [Mass/Vol] 33 mg/dL [facility] Creatinine [Mass/volume] in Serum or PlasmaOrdered By: Glenna Quinones on 07-19-2022 Creatinine [Mass/Vol] 0.52 mg/dL 0.60-1.20 [facility] [facility] [Mass/volume] in UrineOrdered By: Glenna Quinones on 07-19-2022 Creatinine (U) [Mass/Vol] 146.0 mg/dL [facility] Comment on above: No reference range e stablished Globulin Calc (S) [Mass/Vol] Ordered By: Glenna Quinones on 07-19-2022 Globulin (S) [Mass/Vol] 2.9 g/dL [facility] Glucose [Mass/volume] in Ser um or PlasmaOrdered By: Glenna Quinones on 07-19-2022 Glucose [Mass/Vol] 140 mg/dL 70-100 [facility] Comment on above: ADA recommended refe rence rangeRandom Glucose Reference Range is dependent on time and content of last meal. Glucose of more than 200 mg/dL in a nonstressed, ambulatory subject supports the diagnosis of Diabetes Mellitus. Microalbumin [Mass/volume] i n UrineOrdered By: Glenna Quinones on 07-19-2022 Albumin DL <= 20 mg/L (U) [Mass/Vol] 2.2 mg/dL 0.0-1.8 [facility] No Panel InformationOrdered By: Glenna Quinones on 07-19-2022 Estimated GFR (CKD-EPI) > 60.0 mL/Min [facility] Creatinine Clearance (Chem N/A [facility] Potassium [Moles/volume] in Serum or PlasmaOrdered By: Glenna Quinones on 07-19-2022 Potassium [Moles/Vol] 4.2 mmol/L 3.5-5.1 [facility] Protein [Mass/volume] in Ser um or PlasmaOrdered By: Glenna Quinones on 07-19-2022 Protein [Mass/Vol] 7.1 g/dL 6.4-8.9 [facility] Serum or plasma albumin/glob ulin mass ratioOrdered By: Glenna Quinones on 07-19-2022 Albumin/Globulin [Mass ratio] 1.4 {ratio} [facility] Serum or plasma anion gap de terminationOrdered By: Glenna Quinones on 07-19-2022 Anion gap [Moles/Vol] 15.8 mmol/L 6.0-15.0 [facility] Serum or plasma high density lipoprotein (HDL) cholesterol measurementOrdered By: Glenna Quinones on 07-19-2022 Cholesterol in HDL [Mass/Vol] 45 mg/dL 35-85 [facility] Comment on above: HDL CHOL ATP-III CLA SSIFICATION Cardiovascular RiskHDL > or equal to 60 mg/dL LOWHDL < 40 mg/dL HIGH Serum or plasma total choles terol/high density lipoprotein (HDL) cholesterol mass ratOrdered By: Glenna Quinones on 07-19-2022 Cholesterol.total/Chol esterol in HDL [Mass ratio] 3.2 {ratio} <5.0 [facility] Sodium [Moles/volume] in Ser um or PlasmaOrdered By: Glenna Quinones on 07-19-2022 Sodium [Moles/Vol] 140 mmol/L 136-145 [facility] Triglyceride [Mass/volume] i n Serum or PlasmaOrdered By: Glenna Quinones on 07-19-2022 Triglyceride [Mass/Vol] 167 mg/dL 0-149 [facility] Comment on above: TRIG ATP III CLASSIF ICATIONTRIG less than 150 mg/dL NormalTRIG 150-199 mg/dL Borderline highTRIG 200-500 mg/dL High TRIG greater than 500 mg/dL Very highStandard traceable to the Center for Disease Conrtrol and Prevention (CDC) test method. Urea nitrogen [Mass/volume] in Serum or PlasmaOrdered By: Glenna Quinones on 07-19-2022 Urea nitrogen [Mass/Vol] 15 mg/dL 7-25 [facility] Urine microalbumin/creatinin e mass ratioOrdered By: Glenna Quinones on 07-19-2022 Albumin/Creatinine DL <= 20 mg/L (U) [Mass ratio] 15.0 mg/g 0.0-30.0 [facility] Comment on above: 30-300 mg/g indicate s an increased risk for diabetic nephropathy. Greater than 300 mg/g is consistent with clinical nephropathy. (Am. J. Kidney Disease 1994, 25:107) Vitamin B12 ser/plasOrdered By: Glenna Quinones on 07-19-2022 Cobalamin (Vitamin B12) [Mass/Vol] 615 pg/mL 180-914 [facility] Vitamin D+Metabolites [Mass/ volume] in Serum or PlasmaOrdered By: Glenna Quinones on 07-19-2022 Vitamin D+Metabolites [Mass/Vol] 37.0 ng/mL 30-100 [facility] Comment on above: VITAMIN D STATUS 25( [place])VITAMIN D RANGE (ng/mL) Deficient <20 Insufficient 20 to <30Sufficient 30 to 100Reference: Eulalio MF,Janny NC, Zeus VALLE, et al. Evaluation,treatment, and prevention of vitamin D deficiency; an Endocrine Society clinical practice guideline. JCEM. 2010; 96(7):1911-30. Glucose - FINGER STICKon Glucose [Mass/Vol] 89 mg/dL [employer] [facility] Other A1C HEMOGLOBINon 09-27-2021 HbA1c (Bld) [Mass fraction] 8.5 % [employer] [facility] Other Glucose - FINGER STICKon Glucose [Mass/Vol] 157 mg/dL [employer] [facility] Other HbA1c (Bld) [Mass fraction]o n 09-27-2021 A1C HEMOGLOBIN [facility] [employer] Other Glucose - FINGER STICKon Glucose [Mass/Vol] 272 mg/dL [employer] [facility] Other Glucose - FINGER STICKon Glucose [Mass/Vol] 378 mg/dL [employer] [facility] Other A1C HEMOGLOBINon 04-11-2021 HbA1c (Bld) [Mass fraction] 9.3 % [employer] [facility] Other Glucose - FINGER STICKon Glucose [Mass/Vol] 252 mg/dL [employer] [facility] Other HbA1c (Bld) [Mass fraction]o n 04-11-2021 A1C HEMOGLOBIN [employer] Other Albumin [Mass/volume] in Ser um or Plasmaon 04-28-2020 Albumin [Mass/Vol] 3.5 g/dL 3.2-5.5 [facility] Cholesterol [Mass/volume] in Serum or Plasmaon 04-28-2020 Cholesterol [Mass/Vol] 261 mg/dL 140-200 [facility] Comment on above: Chol less than 200 m g/dl low riskChol 201-239 mg/dl borderline riskChol 240 mg/dl and greater high risk Cholesterol in LDL Calc [Mas s/Vol]on 04-28-2020 Cholesterol in LDL [Mass/Vol] [facility] Comment on above: Test not performed Cholesterol in VLDL Calc [Ma ss/Vol]on 04-28-2020 Cholesterol in VLDL [Mass/Vol] [facility] Comment on above: Test not performed Creatinine [Mass/volume] in Urineon 04-28-2020 Creatinine (U) [Mass/Vol] 52.4 mg/dL [facility] Comment on above: No reference range e stablished Creatinine and Glomerular fi ltration rate.predicted panel (S/P/Bld)on 04-28-2020 Creatinine [Mass/Vol] 0.63 mg/dL 0.44-1.03 [facility] Estimated glomerular filtrat ion rate (GFR) non- Americanon 04-28-2020 GFR/1.73 sq M.predicted among non-blacks MDRD (S/P/Bld) [Vol rate/Area] mL/min/{1.73_m2} [facility] Globulin Calc (S) [Mass/Vol] on 04-28-2020 Globulin (S) [Mass/Vol] 2.7 g/dL [facility] Laboratory - Chemistry and C hemistry - challengeon 04-28-2020 Cobalamin (Vitamin B12) [Mass/Vol] 247 pg/mL 180-914 [facility] GFR/1.73 sq M.predicted MDRD (S/P/Bld) [Vol rate/Area] mL/min/{1.73_m2} [facility] Comment on above: GFR estimated refere nce range: According to KDOQI guidelines, <60 ml/min/1.73m2 is sufficient to diagnose a patient with chronic kidney disease. No Panel Informationon 04-28 25-Hydroxy Vitamin D Total 20.1 ng/mL 30-100 [facility] Comment on above: VITAMIN D STATUS 25( [place])VITAMIN D RANGE (ng/mL) Deficient <20 Insufficient 20 to <30Sufficient 30 to 100Reference: Eulalio MF,Janyn GARCIA, Zeus VALLE, et al. Evaluation,treatment, and prevention of vitamin D deficiency; an Endocrine Society clinical practice guideline. JCEM. 2010; 96(7):1911-30. Pharmacy Creatinine Clearance (Chem N/A [facility] Protein [Mass/volume] in Ser um or Plasmaon 04-28-2020 Protein [Mass/Vol] 6.2 g/dL 6.1-7.9 [facility] Serum or plasma alanine mcdaniel otransferase measurement without P-5'-P (enzymatic activion 04-28-2020 ALT No additional P-5'-P [Catalytic activity/Vol] 21 U/L 10-60 [facility] Serum or plasma albumin/glob ulin mass ratioon 04-28-2020 Albumin/Globulin [Mass ratio] 1.3 {ratio} [facility] Serum or plasma alkaline maya sphatase measurement (enzymatic activity/volume)on 04-28-2020 ALP [Catalytic activity/Vol] 86 U/L 32-92 [facility] Serum or plasma aspartate am inotransferase measurement (enzymatic activity/volume)on 04-28-2020 AST [Catalytic activity/Vol] 19 U/L 10-42 [facility] Serum or plasma calcium mallory urement (mass/volume)on 04-28-2020 Calcium [Mass/Vol] 9.1 mg/dL 8.2-10.2 [facility] Serum or plasma chloride grzegorz surement (moles/volume)on 04-28-2020 Chloride [Moles/Vol] 103 mmol/L 95-114 [facility] Serum or plasma cholesterol in LDL measurement (mass/volume)on 04-28-2020 Cholesterol in LDL [Mass/Vol] 148 mg/dL 0-100 [facility] Comment on above: LDL ATP III CLASSIFI CATIONLDL less than 100 mg/dL OptimalLDL 100-129 mg/dL Near or above optimalLDL 130-159 mg/dL Borderline highLDL 160-189 mg/dL HighLDL greater than 189 mg/dL Very high Serum or plasma glucose mallory urement (mass/volume)on 04-28-2020 Glucose [Mass/Vol] 90 mg/dL 70-100 [facility] Comment on above: ADA recommended refe rence rangeRandom Glucose Reference Range is dependent on time and content of last meal. Glucose of more than 200 mg/dL in a nonstressed, ambulatory subject supports the diagnosis of Diabetes Mellitus. Serum or plasma high density lipoprotein (HDL) cholesterol measurementon 04-28-2020 Cholesterol in HDL [Mass/Vol] 56 mg/dL 35-85 [facility] Comment on above: HDL CHOL ATP-III CLA SSIFICATION Cardiovascular RiskHDL > or equal to 60 mg/dL LOWHDL < 40 mg/dL HIGH Serum or plasma potassium me asurement (moles/volume)on 04-28-2020 Potassium [Moles/Vol] 4.3 mmol/L 3.5-5.1 [facility] Serum or plasma sodium measu rement (moles/volume)on 04-28-2020 Sodium [Moles/Vol] 137 mmol/L 136-146 [facility] Serum or plasma total biliru bin measurement (mass/volume)on 04-28-2020 Bilirubin [Mass/Vol] 0.5 mg/dL 0.3-1.2 [facility] Serum or plasma total carbon dioxide measurement (moles/volume)on 04-28-2020 CO2 [Moles/Vol] 24.8 mmol/L 22.0-30.0 [facility] Serum or plasma total choles terol/high density lipoprotein (HDL) cholesterol mass felix 04-28-2020 Cholesterol.total/Chol esterol in HDL [Mass ratio] 4.7 {ratio} <5.0 [facility] Serum or plasma urea nitroge n measurement (mass/volume)on 04-28-2020 Urea nitrogen [Mass/Vol] 12 mg/dL 9-23 [facility] Triglyceride [Mass/volume] i n Serum or Plasmaon 04-28-2020 Triglyceride [Mass/Vol] 418 mg/dL 35-149 [facility] Comment on above: If the triglyceride result [...] 20 mg/L (U) [Mass/Vol] 0.5 mg/dL 0.0-1.8 [facility] Urine microalbumin/creatinin e mass ratioon 04-28-2020 Albumin/Creatinine DL <= 20 mg/L (U) [Mass ratio] 9.0 mg/g 0.0-30.0 [facility] Comment on above: 30-300 mg/g indicate s an increased risk for diabetic nephropathy. Greater than 300 mg/g is consistent with clinical nephropathy. (Am. J. Kidney Disease 1995, 25:107) No Panel Information [facility] Vital Signs Date Time Vital Sign Value Performing Clinician Facility 01-30-2024 14:30-0400 Body height 167.6 cm Sonya Mejia NP Work Phone: [facility] 01-30-2024 14:30-0400 Body mass index (BMI) [Ratio] 43.22 kg/m2 Sonya Mejia [employer] Work Phone: [facility] 01-30-2024 14:30-0400 Body temperature 98.29 [degF] Sonya Mejia [employer] Work Phone: [facility] 01-30-2024 14:30-0400 Body weight 121.47 kg Sonya Mejia [employer] Work Phone: [facility] 01-30-2024 14:30-0400 Diastolic blood pressure 86 mm[Hg] Sonya Mejia [employer] Work Phone: [facility] 01-30-2024 14:30-0400 Heart rate 96 /min Sonya Joaquinclyde [employer] Work Phone: [facility] 01-30-2024 14:30-0400 Respiratory rate 20 /min Sonya Laoadalberto [employer] Work Phone: [facility] 01-30-2024 14:30-0400 SaO2% (BldA) [Mass fraction] 96 % Sonya Mejia [employer] Work Phone: [facility] 01-30-2024 14:30-0400 Systolic blood pressure 138 mm[Hg] Sonya Joaquinclyde [employer] Work Phone: [facility] 01-22-2024 14:25-0400 Body height 165.1 cm [facility] 01-22-2024 14:25-0400 Body mass index (BMI) [Ratio] 44.2 kg/m2 [facility] 01-22-2024 14:25-0400 Body weight 120.65 kg [facility] 01-22-2024 14:25-0400 Diastolic blood pressure 66 mm[Hg] [facility] 01-22-2024 14:25-0400 Heart rate 100 /min [facility] 01-22-2024 14:25-0400 Respiratory rate 18 /min [facility] 01-22-2024 14:25-0400 SaO2% (BldA) [Mass fraction] 96 % [facility] 01-22-2024 14:25-0400 Systolic blood pressure 110 mm[Hg] [facility] 11-26-2023 14:03-0400 Body height 165.1 cm [facility] 11-26-2023 14:03-0400 Body mass index (BMI) [Ratio] 45.9 kg/m2 [facility] 11-26-2023 14:03-0400 Body weight 125.19 kg [facility] 11-26-2023 14:03-0400 Diastolic blood pressure 84 mm[Hg] [facility] 11-26-2023 14:03-0400 Heart rate 112 /min [facility] 11-26-2023 14:03-0400 Respiratory rate 18 /min [facility] 11-26-2023 14:03-0400 SaO2% (BldA) [Mass fraction] 96 % [facility] 11-26-2023 14:03-0400 Systolic blood pressure 139 mm[Hg] [facility] 10-11-2023 13:30-0400 Body height 165.1 cm [employer] Work Phone: [facility] 10-11-2023 13:30-0400 Body mass index (BMI) [Ratio] 44.4 kg/m2 Sonya [facility] Work Phone: [facility] 10-11-2023 13:30-0400 Body weight 121.1 kg Sonya [facility] Work Phone: [facility] 08-21-2023 12:54-0400 Body height 165.1 cm [employer] Work Phone: [facility] 08-21-2023 12:54-0400 Body mass index (BMI) [Ratio] 44.6 kg/m2 [employer] Work Phone: [facility] 08-21-2023 12:54-0400 Body weight 121.56 kg [employer] Work Phone: [facility] 08-21-2023 12:54-0400 Diastolic blood pressure 82 mm[Hg] [employer] Work Phone: [facility] 08-21-2023 12:54-0400 Heart rate 121 /min [employer] Work Phone: [facility] 08-21-2023 12:54-0400 Respiratory rate 20 /min [employer] Work Phone: [facility] 08-21-2023 12:54-0400 SaO2% (BldA) [Mass fraction] 95 % [employer] Work Phone: [facility] 08-21-2023 12:54-0400 Systolic blood pressure 138 mm[Hg] [facility] Work Phone: [facility] 06-07-2023 17:03-0500 Body height 167.6 cm Sonya Laoz [employer] Work Phone: [facility] 06-07-2023 17:03-0500 Body mass index (BMI) [Ratio] 42.74 kg/m2 Sonya Aichholz [employer] Work Phone: [facility] 06-07-2023 17:03-0500 Body temperature 97.59 [degF] Sonya Emaniholz [employer] Work Phone: [facility] 06-07-2023 17:03-0500 Body weight 120.11 kg Sonya Emaniholz [employer] Work Phone: [facility] 06-07-2023 17:03-0500 Diastolic blood pressure 80 mm[Hg] Sonya Aichholz [employer] Work Phone: [facility] 06-07-2023 17:03-0500 Heart rate 109 /min Sonya Aichholz [employer] Work Phone: [facility] 06-07-2023 17:03-0500 Respiratory rate 19 /min Sonya Emanihholz [employer] Work Phone: [facility] 06-07-2023 17:03-0500 SaO2% (BldA) [Mass fraction] 98 % Sonya Emanidanishholz [employer] Work Phone: [facility] 06-07-2023 17:03-0500 Systolic blood pressure 122 mm[Hg] Sonya Emnaiholz [employer] Work Phone: [facility] 02-19-2023 14:00-0400 Body height 165.1 cm Glenna Quinones Other [employer] Other 02-19-2023 14:00-0400 Body mass index (BMI) [Ratio] 42.76 kg/m2 Glenna Scally Other [employer] Other 02-19-2023 14:00-0400 Body weight 116.58 kg Glenna Scally Other [employer] Other 02-19-2023 14:00-0400 Diastolic blood pressure 76 mm[Hg] Glenna Scally Other [employer] Other 02-19-2023 14:00-0400 Respiratory rate 18 /min Glenna Scally Other [employer] Other 02-19-2023 14:00-0400 SaO2% (BldA) [Mass fraction] 96 % Glenna Scally Other [employer] Other 02-19-2023 14:00-0400 Systolic blood pressure 127 mm[Hg] Glenna Scally Other [employer] Other 01-16-2023 13:00-0400 Body height 165.1 cm Glenna Scally Other [employer] Other 01-16-2023 13:00-0400 Body mass index (BMI) [Ratio] 40.63 kg/m2 Glenna Scally Other [employer] Other 01-16-2023 13:00-0400 Body weight 110.77 kg Glenna Scally Other [employer] Other 11-21-2022 13:00-0400 Body height 165.1 cm Glenna Scally Other [employer] Other 11-21-2022 13:00-0400 Body mass index (BMI) [Ratio] 41.36 kg/m2 Glenna Scally Other [employer] Other 11-21-2022 13:00-0400 Body weight 112.76 kg Glenna Scally Other [employer] Other 11-21-2022 13:00-0400 Diastolic blood pressure 93 mm[Hg] Glenna Scally Other [employer] Other 11-21-2022 13:00-0400 Respiratory rate 18 /min Glenna Scally Other [employer] Other 11-21-2022 13:00-0400 SaO2% (BldA) [Mass fraction] 98 % Glenna Scally Other [employer] Other 11-21-2022 13:00-0400 Systolic blood pressure 137 mm[Hg] Glenna Scally Other [employer] Other 11-20-2022 15:00-0400 Body height 165.1 cm Mark Gramajo Other [employer] Other 11-20-2022 15:00-0400 Body mass index (BMI) [Ratio] 41.05 kg/m2 Mark Gramajo Other [employer] Other 11-20-2022 15:00-0400 Body weight 111.9 kg Mark Gramajo Other [employer] Other 11-20-2022 15:00-0400 Diastolic blood pressure 89 mm[Hg] Mark Gramajo Other [employer] Other 11-20-2022 15:00-0400 Systolic blood pressure 133 mm[Hg] Mark Gramajo Other [employer] Other 10-17-2022 11:00-0400 Body height 165.1 cm Glenna Scally Other [employer] Other 10-17-2022 11:00-0400 Body mass index (BMI) [Ratio] 41.76 kg/m2 Glenna Scally Other [employer] Other 10-17-2022 11:00-0400 Body weight 113.85 kg Glenna Scally Other [employer] Other 08-30-2022 14:00-0400 Body height 165.1 cm Glenna Scally Other [employer] Other 08-30-2022 14:00-0400 Body mass index (BMI) [Ratio] 42.25 kg/m2 Glenna Scally Other [employer] Other 08-30-2022 14:00-0400 Body weight 115.17 kg Glenna Scally Other [employer] Other 08-30-2022 14:00-0400 Diastolic blood pressure 88 mm[Hg] Glenna Scally Other [employer] Other 08-30-2022 14:00-0400 Respiratory rate 18 /min Glenna Scally Other [employer] Other 08-30-2022 14:00-0400 SaO2% (BldA) [Mass fraction] 96 % Glenna Scally Other [employer] Other 08-30-2022 14:00-0400 Systolic blood pressure 136 mm[Hg] Glenna Scally Other [employer] Other 07-19-2022 14:00-0400 Body height 165.1 cm Glenna Scally Other [employer] Other 07-19-2022 14:00-0400 Body mass index (BMI) [Ratio] 42.1 kg/m2 Glenna Scally Other [employer] Other 07-19-2022 14:00-0400 Body weight 114.76 kg Glenna Scally Other [employer] Other 04-26-2022 14:00-0500 Body height 165.1 cm Glenna Scally Other [employer] Other 04-26-2022 14:00-0500 Body mass index (BMI) [Ratio] 42.3 kg/m2 Glenna Scally Other [employer] Other 04-26-2022 14:00-0500 Body weight 115.31 kg Glenna Scally Other [employer] Other 03-14-2022 14:00-0500 Body height 165.1 cm Glenna Scally Other [employer] Other 03-14-2022 14:00-0500 Body mass index (BMI) [Ratio] 43.13 kg/m2 Glenna Scally Other [employer] Other 03-14-2022 14:00-0500 Body weight 117.57 kg Glenna Scally Other [employer] Other 02-16-2022 14:00-0400 Body height 165.1 cm Glenna Scally Other [employer] Other 02-16-2022 14:00-0400 Body mass index (BMI) [Ratio] 41.18 kg/m2 Glenna Scally Other [employer] Other 02-16-2022 14:00-0400 Body weight 112.27 kg Glenna Scally Other [employer] Other 02-16-2022 14:00-0400 Diastolic blood pressure 99 mm[Hg] Glenna Scally Other [employer] Other 02-16-2022 14:00-0400 Respiratory rate 18 /min Glenna Scally Other [employer] Other 02-16-2022 14:00-0400 SaO2% (BldA) [Mass fraction] 97 % Glenna Scally Other [employer] Other 02-16-2022 14:00-0400 Systolic blood pressure 141 mm[Hg] Glenna Scally Other [employer] Other 09-27-2021 14:00-0400 Body height 165.1 cm Glenna Scally Other [employer] Other 09-27-2021 14:00-0400 Body mass index (BMI) [Ratio] 42.01 kg/m2 Glenna Scally Other [employer] Other 09-27-2021 14:00-0400 Body weight 114.53 kg Glenna Scally Other [employer] Other 09-27-2021 14:00-0400 Diastolic blood pressure 90 mm[Hg] Glenna Scally Other [employer] Other 09-27-2021 14:00-0400 Respiratory rate 18 /min Glenna Scally Other [employer] Other 09-27-2021 14:00-0400 SaO2% (BldA) [Mass fraction] 96 % Glenna Scally Other [employer] Other 09-27-2021 14:00-0400 Systolic blood pressure 120 mm[Hg] Glenna Scally Other [employer] Other 08-17-2021 14:00-0400 Body height 165.1 cm Glenna Scally Other [employer] Other 08-17-2021 14:00-0400 Body mass index (BMI) [Ratio] 41.73 kg/m2 Glenna Scally Other [employer] Other 08-17-2021 14:00-0400 Body weight 113.76 kg Glenna Scally Other [employer] Other 08-02-2021 15:00-0400 Body height 165.1 cm Glenna Scally Other [employer] Other 08-02-2021 15:00-0400 Body mass index (BMI) [Ratio] 42.9 kg/m2 Glenna Scally Other [employer] Other 08-02-2021 15:00-0400 Body weight 116.94 kg Glenna Scally Other [employer] Other 08-02-2021 15:00-0400 Diastolic blood pressure 91 mm[Hg] Glenna Scally Other [employer] Other 08-02-2021 15:00-0400 Respiratory rate 18 /min Glenna Scally Other [employer] Other 08-02-2021 15:00-0400 SaO2% (BldA) [Mass fraction] 98 % Glenna Scally Other [employer] Other 08-02-2021 15:00-0400 Systolic blood pressure 132 mm[Hg] Glenna Scally Other [employer] Other 07-05-2021 14:30-0400 Body height 165.1 cm Glenna Scally Other [employer] Other 07-05-2021 14:30-0400 Body mass index (BMI) [Ratio] 42.6 kg/m2 Glenna Scally Other [employer] Other 07-05-2021 14:30-0400 Body weight 116.12 kg Glenna Scally Other [employer] Other 07-05-2021 14:30-0400 Diastolic blood pressure 93 mm[Hg] Glenna Scally Other [employer] Other 07-05-2021 14:30-0400 Respiratory rate 20 /min Glenna Scally Other [employer] Other 07-05-2021 14:30-0400 SaO2% (BldA) [Mass fraction] 98 % Glenna Scally Other [employer] Other 07-05-2021 14:30-0400 Systolic blood pressure 133 mm[Hg] Glenna Scally Other [employer] Other 04-11-2021 15:30-0500 Body height 165.1 cm Glenna Scally Other [employer] Other 04-11-2021 15:30-0500 Body mass index (BMI) [Ratio] 42.43 kg/m2 Glenna Scally Other [employer] Other 04-11-2021 15:30-0500 Body weight 115.67 kg Glenna Scally Other [employer] Other 04-11-2021 15:30-0500 Diastolic blood pressure 92 mm[Hg] Glenna Scally Other [employer] Other 04-11-2021 15:30-0500 Respiratory rate 20 /min Glenna Scally Other [employer] Other 04-11-2021 15:30-0500 SaO2% (BldA) [Mass fraction] 97 % Glenna Scally Other [employer] Other 04-11-2021 15:30-0500 Systolic blood pressure 136 mm[Hg] Glenna Scally Other [facility] International Other Encounters Encounter Date Encounter Type Care Provider Facility Start: 01-30-2024 End: 01-30-2024 Office outpatient visit 25 minutes Sonya Mejia YARD SUPERVISOR Work Phone: [facility] Comment on above: Primary hypertension ([facility]) (Primary Dx); Mixed hyperlipidemia ([facility]); Environmental and seasonal allergies; Gastroesophageal reflux disease, unspecified whether esophagitis present; Anxiety; Major depressive disorder with single episode, remission status unspecified ([facility]); Colon cancer screening; 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, with long-term current use of insulin, macular edema presence unspecified, unspecified laterality, unspecified proliferative retinop* ([facility]); Class 3 severe obesity due to excess calories without serious comorbidity with body mass index (BMI) of 40.0 to 44.9 in adult ([facility]); Anxiety and depression ([facility]) Start: 01-30-2024 End: 01-30-2024 ambulatory SONYA MEJIA Not Available Start: 01-30-2024 End: 01-30-2024 Bamboo flowsheet Sonya Mejia YARD SUPERVISOR Work Phone: [facility] Start: 01-30-2024 End: 01-30-2024 Bamboo flowsheet Sonya Mejia YARD SUPERVISOR Work Phone: [facility] Start: 01-23-2024 End: 01-24-2024 Telephone encounter Sonya Mejia YARD SUPERVISOR Work Phone: [facility] Start: 01-22-2024 End: 01-22-2024 Clinisync Result Encounter Sonya Mejia YARD SUPERVISOR Work Phone: [facility] Unsolicited Start: 01-22-2024 End: 01-22-2024 Clinisync Result Encounter Sonya Mejia YARD SUPERVISOR Work Phone: [facility] Unsolicited Start: 01-22-2024 End: 01-22-2024 ambulatory [facility] Work Phone: Start: 01-22-2024 End: 01-22-2024 Patient encounter procedure [facility] Work Phone: Start: 12-17-2023 End: 12-17-2023 ambulatory [facility] Work Phone: Start: 12-17-2023 End: 12-17-2023 Patient encounter procedure [facility] Work Phone: Start: 11-26-2023 End: 11-26-2023 ambulatory [facility] Work Phone: Start: 11-26-2023 End: 11-26-2023 Patient encounter procedure [facility] Work Phone: Start: 10-15-2023 End: 10-15-2023 ambulatory SONYA JACKIE Not Available Start: 10-11-2023 End: 10-11-2023 ambulatory Sonya Timothy Mejia Work Phone: [facility] Work Phone: Start: 10-11-2023 End: 10-11-2023 Patient encounter procedure Sonya Jackie Work Phone: [facility] Work Phone: Start: 08-21-2023 End: 08-21-2023 ambulatory Glennadanish Quinones Facility:[facility] Start: 08-21-2023 End: 08-21-2023 ambulatory [facility] Work Phone: [facility] Work Phone: Start: 08-21-2023 End: 08-21-2023 Patient encounter procedure Services [facility] Work Phone: [facility] [place] Work Phone: Start: 08-21-2023 End: 08-21-2023 ambulatory [facility] Work Phone: [facility] Work Phone: Start: 08-21-2023 End: 08-21-2023 Patient encounter procedure Services [facility] Work Phone: [facility] Work Phone: Start: 08-07-2023 End: 08-07-2023 ambulatory JESSICA OWENS Facility:[facility] Start: 08-07-2023 End: 08-07-2023 Patient encounter procedure Jason Ch MD Work Phone: Ophthalmology Comment on above: Type 2 diabetes marti itus with both eyes affected 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 Work Phone: [facility] Work Phone: Start: 06-07-2023 End: 06-07-2023 ambulatory SONYA EMANIHHOLZ Not Available Start: 06-07-2023 Bamboo flowsheet Sonya Aichholz YARD SUPERVISOR Work Phone: [facility] Start: 06-07-2023 Bamboo flowsheet Sonya Aichholz YARD SUPERVISOR Work Phone: [facility] Start: 06-07-2023 End: 06-07-2023 Patient encounter procedure Sonya Aichholz YARD SUPERVISOR Work Phone: [facility] Comment on above: Encounter for subseq uent annual wellness visit (AWV) in Medicare patient (Primary Dx); Encounter for screening mammogram for malignant neoplasm of breast; Primary hypertension (CMS/HCC); Gastroesophageal reflux disease, unspecified whether esophagitis present; 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, with long-term current use of insulin, macular edema presence unspecified, unspecified laterality, unspecified proliferative retinop* (CMS/HCC); Class 3 severe obesity due to excess calories without serious comorbidity with body mass index (BMI) of 40.0 to 44.9 in adult (CMS/HCC); Anxiety and depression (CMS/HCC); 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 Work Phone: [facility] Work Phone: Start: 05-28-2023 End: 05-28-2023 ambulatory Services [facility] Work Phone: [facility] Work Phone: Start: 05-28-2023 End: 05-28-2023 Discharged Recurring Services [facility] Work Phone: [facility] Work Phone: Start: 05-24-2023 Refill Sonya Jackie YARD SUPERVISOR Work Phone: [facility] Comment on above: Mixed hyperlipidemia (CMS/HCC) (Primary Dx) Start: 04-02-2023 End: 04-02-2023 ambulatory SONYA AICHHOLZ Not Available Start: 02-19-2023 (DM) Diabetes Glenna Negrete [facility] Start: 02-19-2023 End: 02-19-2023 ambulatory Glenna Quinones Other [employer] Other Start: 02-05-2023 End: 02-05-2023 ambulatory Glenna Quinones Other [employer] Other Start: 02-05-2023 Telephone encounter Glenna manzano [facility] Start: 01-31-2023 End: 01-31-2023 ambulatory GLENDY PÉREZ Facility:[facility] Start: 01-16-2023 End: 01-16-2023 ambulatory Glenna Quinones Other [employer] Other Start: 01-16-2023 Nursing evaluation o f patient and report [facility] Start: 12-14-2022 End: 12-14-2022 ambulatory Glenna Quinones Other [employer] Other Start: 12-14-2022 Telephone encounter Glenna manzano [facility] Start: 12-11-2022 End: 12-11-2022 ambulatory Glenna Quinones Other [employer] Other Start: 12-11-2022 Telephone encounter Glenna manzano [facility] Start: 12-06-2022 End: 12-06-2022 ambulatory Mark Gramajo Facility:[facility] Start: 12-06-2022 End: 12-06-2022 ambulatory Services [facility] Work Phone: [facility] Work Phone: Start: 12-06-2022 End: 12-06-2022 Patient encounter procedure Services [facility] Work Phone: [facility] Work Phone: Start: 12-04-2022 End: 12-04-2022 ambulatory Mark Gramajo Facility:[facility] Start: 12-04-2022 End: 12-04-2022 Patient encounter procedure Services [facility] Work Phone: [facility]-Ultrasound [place] Work Phone: Start: 11-21-2022 (DM) Diabetes Glenna Negrete [facility] Start: 11-21-2022 End: 11-21-2022 ambulatory Glenna Quinones Other [employer] Other Start: 11-21-2022 Registered Recurring Services [facility] Work Phone: [facility] Work Phone: Start: 11-20-2022 End: 11-20-2022 ambulatory Mark Gramajo Other [employer] Other Start: 11-20-2022 Office outpatient ne w 30 minutes [facility] Start: 10-27-2022 End: 10-27-2022 ambulatory Glenna Quinones Other [employer] Other Start: 10-27-2022 Telephone encounter Glenna [place]osa [place] [facility] Start: 10-17-2022 End: 10-17-2022 ambulatory Glenna Quinones Other [employer] Other Start: 10-17-2022 Nursing evaluation o f patient and report Glenna Quinones [facility] Start: 10-10-2022 End: 10-10-2022 ambulatory Glenna Quinones Other [employer] Other Start: 10-10-2022 Telephone encounter Glenna wallaces [facility] Start: 09-08-2022 ambulatory PUBLIC RELATIONS REPRESENTATIVE SONYA JACKIE Facil ity:[facility] Start: 08-30-2022 (DM) Diabetes Glenna Fryania [facility] Start: 08-30-2022 End: 08-30-2022 ambulatory Glenna Quinones Other [employer] Other Start: 08-11-2022 End: 08-12-2022 ambulatory PUBLIC RELATIONS REPRESENTATIVE SONYA JACKIE Facility:[facility] Start: 08-07-2022 End: 08-07-2022 ambulatory KAYA PATEL Facility:[facility] Start: 08-04-2022 End: 08-05-2022 ambulatory PUBLIC RELATIONS REPRESENTATIVE SONYA AICHHOLZ Facility:[facility] Start: 07-19-2022 Registered Recurring Sonya tang Work Phone: [facility] Work Phone: Start: 07-19-2022 Nursing evaluation o f patient and report [facility] Start: 07-19-2022 End: 07-19-2022 ambulatory Sonya Mejia Work Phone: [facility] Work Phone: Start: 07-19-2022 End: 07-19-2022 Patient encounter procedure Sonya Mejia Work Phone: [facility] [place] Work Phone: Start: 07-11-2022 End: 07-11-2022 ambulatory Glenna Sterlingly Other [employer] Other Start: 07-11-2022 Telephone encounter Glenna Joni manz[facility] Start: 06-16-2022 End: 06-16-2022 ambulatory Glenna Scally Other [employer] Other Start: 06-16-2022 Telephone encounter Glenna Sterlingly [place] [facility] Start: 06-09-2022 End: 06-09-2022 ambulatory Glenna Scally Other [employer] Other Start: 06-09-2022 Telephone encounter Glenna Sterlingly [facility] [place] [facility] Start: 04-26-2022 End: 04-26-2022 ambulatory Glenna Scally Other [employer] Other Start: 04-26-2022 Nursing evaluation o f patient and report Glenna Sterlingly [facility] Start: 03-14-2022 End: 03-14-2022 ambulatory Glenna Scally Other [employer] Other Start: 03-14-2022 Nursing evaluation o f patient and report Glenna Sterlingly [facility] Start: 02-16-2022 (DM) [facility] Start: 02-16-2022 End: 02-16-2022 ambulatory Glenna Scally Other [employer] Other Start: 01-31-2022 End: 01-31-2022 Patient encounter procedure Glendy Pérez PA-C Work Phone: Ophthalmology Comment on above: Type 2 diabetes marti itus with both eyes affected 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, unspecified whether mcfp insulin use (HCC) (Primary Dx); Nuclear sclerotic cataract, bilateral; 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, bilateral Start: 01-26-2022 End: 01-26-2022 ambulatory Glenna Scally Other [employer] Other Start: 01-26-2022 Nursing evaluation o f patient and report [facility] Start: 09-27-2021 (DM) Diabetes Glennajeff Fryania [facility] Start: 09-27-2021 End: 09-27-2021 ambulatory Glenna Scally Other [employer] Other Start: 08-26-2021 End: 08-26-2021 ambulatory Glenna Scally Other [employer] Other Start: 08-26-2021 Telephone encounter Glenan Sosa [place] [facility] Start: 08-25-2021 End: 08-25-2021 ambulatory Glenna Scally Other [employer] Other Start: 08-25-2021 Telephone encounter Glennajeff Quinones [place] [facility] Start: 08-17-2021 End: 08-17-2021 ambulatory Glenna Sterlingly Other [employer] Other Start: 08-17-2021 Nursing evaluation o f patient and report [facility] Start: 08-03-2021 End: 08-03-2021 ambulatory Glenna Scally Other [employer] Other Start: 08-03-2021 Telephone encounter Glenna Scally [place] [facility] Start: 08-02-2021 (DM) Diabetes Glenna Scally [place] [facility] Start: 08-02-2021 End: 08-02-2021 ambulatory Glenna Scally Other [employer] Other Start: 08-01-2021 End: 08-01-2021 ambulatory Glenna Scally Other [employer] Other Start: 08-01-2021 Telephone encounter Glenna Scally [place] [facility] Start: 07-18-2021 End: 07-18-2021 ambulatory Glenna Scally Other [employer] Other Start: 07-18-2021 Telephone encounter Glenna Scally [place] [facility] Start: 07-05-2021 (DM) Diabetes Glenna Scally [facility] [facility] Start: 07-05-2021 End: 07-05-2021 ambulatory Glenna Scally Other [employer] Other Start: 07-05-2021 Telephone encounter Glenna Scally [place] [facility] Start: 06-07-2021 End: 06-07-2021 ambulatory Glenna Scally Other [employer] Other Start: 06-07-2021 Telephone encounter Glenna Scally [place] [facility] Start: 06-06-2021 End: 06-06-2021 ambulatory Glenna Scally Other [employer] Other Start: 06-06-2021 Telephone encounter Glenna Scally [place] [facility] Start: 05-19-2021 End: 05-19-2021 ambulatory Glenna Sterlingly Other [employer] Other Start: 05-19-2021 Telephone encounter Glenna Sterlingly [facility] Start: 05-10-2021 End: 05-10-2021 ambulatory Glenna Scally Other [employer] Other Start: 05-10-2021 Telephone encounter Glenna Scally [facility] Start: 04-27-2021 End: 04-27-2021 ambulatory Glenna Scally Other [employer] Other Start: 04-27-2021 Telephone encounter Glenna Sterlingly [facility] Start: 04-12-2021 End: 04-12-2021 ambulatory Glenna Sterlingly Other [employer] Other Start: 04-12-2021 Telephone encounter Glenna Sterlingly [facility] Start: 04-11-2021 (DM) Diabetes Glenna Sterlingly [place] [facility] Start: 04-11-2021 End: 04-11-2021 ambulatory Glenna Sterlingly Other [employer] Other Start: 03-14-2021 End: 03-14-2021 ambulatory Glenna Sterlingly Other [employer] Other Start: 03-14-2021 Telephone encounter Glenna Sterlingly [facility] Start: 09-06-2020 End: 09-06-2020 Patient encounter procedure [facility] Work Phone[facility] Start: 08-26-2020 Registered Recurring Services [facility] Work Phone: [facility] Start: 11-02-2019 Blood glucose normal Sonya Emani clyde Work Phone: [facility] Procedures Date Procedure Procedure Detail Performing Clinician Start: 01-22-2024 ALL CBC WITH AUTO DIFF Sonya Mejia YARD SUPERVISOR Work Phone: Start: 01-22-2024 [facility] MICROALB CREAT RATIO RANDOM Sonya Jackie YARD SUPERVISOR Work Phone: Start: 01-22-2024 [facility] UA (CLEAN/CATCH) MICROSCOPIC IF INDICATE Sonya Jackie YARD SUPERVISOR Work Phone: Start: 08-07-2023 Computerized ophthalmic imaging retina Jason Ch MD Work Phone: Start: 08-06-2023 Mammography Sonya Jackie YARD SUPERVISOR Work Phone: Start: 12-06-2022 Ultrasound elastography of liver Services [facility] Work Phone: Start: 12-04-2022 Ultrasonography of liver Services [facility] Work Phone: Start: 08-04-2022 Mammography Sonya Jackie YARD SUPERVISOR Work Phone: Start: 01-31-2022 End: 01-31-2022 Computerized ophthalmic imaging retina Glendy Pérez PA-C Work Phone: Start: 09-06-2020 Screening mammography of bilateral breasts Services [facility] Work Phone: Start: 12-12-2019 Microscopic observation [Identifier] in Cervix by Cyto stain Sonya Mejia YARD SUPERVISOR Work Phone: Start: 03-19-2018 History of laser assisted in situ keratomileusis S/P LASIK (laser assisted in situ keratomileusis) Glendy Pérez PA-C Work Phone: Start: 04-30-2017 End: 10-15-2023 H/O: hysterectomy History of hysterectomy for cancer Sonya Mejia YARD SUPERVISOR Work Phone: Start: 12-11-2016 Microscopic observation [Identifier] in Cervix by Cyto stain Sonya Mejia YARD SUPERVISOR Work Phone: Plan of Treatment Date Care Activity Detail Author Start: 08-05-2033 Urine microalbumin profile DTaP,Tdap,Td Vaccine (2 - Td or Tdap) [facility] Start: 01-21-2025 Urine screening for protein Diabetes: Urine Protein Screening [facility] Start: 12-11-2024 PAP TESTING PAP TESTING [facility] Start: 12-11-2024 Screening for malign ant neoplasm of cervix Pap Testing [facility] Start: 08-21-2024 End: 01-28-2025 OCT MACULA CIRRUS OU (BOTH EYES) OCT MACULA CIRRUS OU (BOTH EYES) OPHT Imaging Routine 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, bilateral Nuclear sclerotic cataract, bilateral 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 Work Phone: Comment on above: Expected: 08/21/2024 , Expires: 01/28/2025 Start: 08-06-2024 Glaucoma screening [facility] Start: 08-05-2024 Screening for malign ant neoplasm of breast Mammogram [facility] Start: 06-07-2024 Medicare Annual Well ness (AWV) Medicare Annual Wellness (AWV) [facility] Start: 05-01-2024 End: 05-01-2024 Patient encounter procedure 05/01/2024 2:00 PM EST Office Visit [facility] [address] [place] [address] Sonya Mejia NP [address] [place] [address] [facility] Start: 02-28-2024 Urine screening for protein Diabetes: Urine Protein Screening [facility] Start: 02-26-2024 Hemoglobin A1c measurement Diabetes: Hemoglobin A1C [facility] Start: 01-30-2024 End: 01-30-2024 Patient encounter procedure [facility] Comment on above: Arrived Start: 12-23-2023 Influenza vaccination Influenza Vacc ine (#1) [facility] Start: 12-01-2023 Glaucoma screening Diabetes: R etinopathy Screening [facility] Start: 10-15-2023 End: 10-15-2023 Patient encounter procedure 10/15/2023 6:00 PM EDT Office Visit [facility] [address] [place] [address] Sonya Mejia, YARD SUPERVISOR [address] [place] [address] [facility] Start: 08-26-2023 Hemoglobin A1c measurement Diabetes: Hemoglobin A1C [facility] Start: 08-06-2023 End: 08-05-2024 MG Breast - bilateral Screening Bilateral screening mammogram Imaging Routine Encounter for screening mammogram for malignant neoplasm of breast Expected: 08/06/2023 (Approximate), Expires: 08/05/2024 [facility] Work Phone: Comment on above: Expected: 08/06/2023 (Approximate), Expires: 08/05/2024 Start: 08-05-2023 Screening for malign ant neoplasm of breast Mammogram [facility] Start: 06-07-2023 End: 06-07-2023 Patient encounter procedure [facility] Comment on above: Encounter for screen ing mammogram for malignant neoplasm of breast (Primary Dx) Start: 04-23-2023 Behavioral Health Screening Behavioral Health Screening [facility] Start: 02-15-2023 End: 07-25-2023 OCT MACULA CIRRUS OU (BOTH EYES) OCT MACULA CIRRUS OU (BOTH EYES) OPHT Imaging Routine 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 Work Phone: Comment on above: Expected: 02/15/2023 , Expires: 07/25/2023 Start: 01-31-2023 Hepatitis C antibody , confirmatory test DILATED RETINAL EXAM [facility] Start: 12-11-2022 Screening for malign ant neoplasm of cervix [facility] Start: 12-06-2022 [facility] Start: 2022 Screening for malign ant neoplasm of colon [facility] Start: 12-12-2021 COVID-19 VACCINE (4 - Booster for Blayne series) COVID-19 VACCINE (4 - Booster for Blayne series) [facility] Start: 04-23-2021 DEPRESSION ASSESSMENT DEPRESSION ASS ESSMENT [facility] Start: 12-12-2019 Screening for malign ant neoplasm of cervix [facility] Start: 08-24-2019 Hepatitis B screening URINE ALBUMIN:CREATININE RATIO [facility] Start: 2017 Mammography MAMMOGRAM [facility] Start: 2017 Screening for malign ant neoplasm of breast Mammogram Screening [facility] Start: 2007 HPV TESTING HPV TESTING [facility] Start: 2007 Screening for malign ant neoplasm of cervix [facility] Start: 1996 Hepatitis B Vaccine (1 of 3 - 19+ 3-dose series) Hepatitis B Vaccine (1 of 3 - 19+ 3-dose series) [facility] Start: 1996 Urine microalbumin profile DTAP,TDAP,TD (1 - Tdap) [facility] Start: 1996 Urine screening for protein Diabetes: Urine Protein Screening [facility] Start: 1995 ANNUAL PCP TEAM STAMP PAD FINISHER ADRIENNE DISEASE VISIT ANNUAL PCP TEAM CHRONIC DISEASE VISIT [facility] Start: 1995 BP CONTROLLED (<130/80) BP CONTROLLE D (<130/80) [facility] Start: 1995 Hepatitis B surface antibody level LDL CHOLESTEROL [facility] Start: 1995 HEPATITIS C SCREENING HEPATITIS C [facility] Start: 1995 Hepatitis C screening Hepatitis C [facility] Start: 1995 HIV SCREENING HIV SCREENING [facility] Start: 1995 HIV screening HIV Screening [facility] Start: 1987 3 comp foot exam completed DIABETIC FOOT EXAM [facility] Start: 1987 Diabetic foot examination Diabetic Foot Exam [facility] Start: 1987 Glaucoma screening Diabetes: R etinopathy Screening [facility] Start: 1983 PNEUMOCOCCAL (1 - PCV) PNEUMOCOCCAL (1 - PCV) [facility] Start: 1983 Pneumococcal vaccination Pneum ococcal Vaccine (1 of 2 - PCV) [facility] Start: 1982 Hemoglobin A1c measurement HbA1C [facility] Start: 1982 Hemoglobin A1c/Hemoglobin.total in Blood HBA1C [facility] Start: 1977 Hemoglobin A1c measurement Diabetes: Hemoglobin A1C [facility] Start: 1977 HEPATITIS B (1 of 3 - 3-dose series) HEPATITIS B (1 of 3 - 3-dose series) [facility] Start: 1977 Medicare Annual Well ness (AWV) Medicare Annual Wellness (AWV) [facility] Start: 1977 Screening for malign ant neoplasm of colon [facility] Alpha 1 antitrypsin [Mass/volume] in Serum or Plasma [facility] Alpha 1 antitrypsin phenotyping [Identifier] in Serum or Plasma by Immunofixation [facility] Elastase.pancreatic [Mass/mass] in Stool [facility] Hepatitis C virus Ig G Ab [Presence] in Serum or Plasma by Immunoassay [facility] Noninvasive colorect al cancer DNA and occult blood screening [Presence] in Stool Cologuard colon cancer screening Lab Routine Colon cancer screening Ordered: 06/07/2023 [facility] Comment on above: Ordered: 06/07/2023 [facility] Immunizations Immunization Date Immunization Notes Care Provider Erika ricketts 08-06-2023 tetanus toxoid, redu [place] diphtheria toxoid, and acellular pertussis vaccine, adsorbed Sonya Aichholz YARD SUPERVISOR Work Phone: [facility] 02-08-2023 influenza, injectabl e, quadrivalent, preservative free Sonya Aichholz YARD SUPERVISOR Work Phone: [facility] 02-08-2023 influenza virus vaccine, unspecified formulation Sonya Aichholz YARD SUPERVISOR Work Phone: [facility] 01-11-2022 influenza, injectabl e, quadrivalent, preservative free Sonya Aichholz YARD SUPERVISOR Work Phone: [facility] 01-15-2021 influenza, injectabl e, quadrivalent, preservative free Sonya Aichholz YARD SUPERVISOR Work Phone: [facility] 07-02-2020 COVID-19 Vaccine Blayne - Documentation Purposes Only Glenna Scally Other [facility] 12-26-2019 influenza, injectabl e, quadrivalent, preservative free Sonya Aichholz YARD SUPERVISOR Work Phone: [facility] 01-08-2019 influenza, injectabl e, quadrivalent, preservative free Glendy Baraona PA-C Work Phone: [facility] 12-31-2017 influenza, injectabl e, quadrivalent, preservative free Glendy Baraona PA-C Work Phone: [facility] 12-19-2016 influenza, injectabl e, quadrivalent, preservative free Sonya Aichholz YARD SUPERVISOR Work Phone: [facility] 12-19-2016 influenza, seasonal, injectable Glendy Baraona PA-C Work Phone: [facility] 12-11-2015 influenza, seasonal, injectable, preservative free Sonya Aichholz YARD SUPERVISOR Work Phone: [facility] 11-26-2014 influenza, seasonal, injectable, preservative free Sonya Aichholz YARD SUPERVISOR Work Phone: [facility] Healthcare Payers Date Payer Category Payer Medicaid [id number] 2019 Medicare [id number] 2019 Self-pay [id number] 1975 Unknown [id number] 2.16.84 [id number] 1977 Unknown [id number] 2.16.84 [id number] 1977 Unknown [id number] 2.16.84 [id number] 1977 Unknown [id number] 2.16.84 [id number] 1977 Unknown [id number] 2.16.84 [id number] 1977 Unknown [id number] 2.16.84 [id number] 1977 Unknown [id number] 2.16.84 [id number] 1977 Unknown [id number] 2.16.840 .[id number] 1959 Medicaid [id number] 1957 Medicare [id number] 2.1 [id number] 1959 Self-pay [id number] 1959 Unknown [id number] Unknown [id number] Unknown [id number] [id number] Unknown [id number] 2.16.8 [id number] Unknown [id number] 2.16.8 [id number] Unknown [id number] 2.16.8 [id number] Social History Date Type Detail Facility Start: 11-02-2019 End: 01-30-2024 Tobacco smoking status NHIS Ex-smoker (finding) [facility] Start: 1975 Sex Assigned At Female [facility] Start: 04-01-2023 End: 06-07-2023 Sex Assigned At [facility] Start: 04-23-2002 End: 04-23-2012 History of tobacco use Current smoker [facility] Start: 04-23-2002 End: 04-23-2012 History of tobacco use Cigarette Smoker [facility] Start: 05-15-2017 End: 01-30-2024 Tobacco use and exposure Smokeless tobacco non-user [facility] Start: 01-31-2022 End: 08-07-2023 Alcohol intake Current non-drinker of alcohol (finding) [facility] Start: 1975 Sex Assigned At Not on file [facility] Start: 12-26-2021 End: 01-05-2022 Exposure to SARS-CoV-2 (event) Not sure [facility] Start: 04-01-2023 End: 04-02-2023 Cigarettes smoked current (pack per day) - Reported 0.5 [facility] Start: 04-02-2023 End: 01-30-2024 Alcohol intake Current drinker of alcohol (finding) [facility] Within the last year , have [...] Equipment Origin al Text Equipment Identifier Dates [id number] Start: 10-20-2019 Gas [employer] C3f8 125gm - [id number] Start: 08-09-2016 Gas [employer] C3f8 125gm - [id number] Start: 10-10-2017 Goals Date Patient Goal Desired Activity /State Clinical Notes 08-02-2016 to 01-30-2024 Sonya Mejia NP - 01/30/2024 3:28 PM EDSoto Mejia NP - 01/30/2024 3:28 PM Presley Mejia NP - 01/30/2024 3:27 PM EDSoto Mejia NP - 01/30/2024 3:27 PM EDT Note Date & Type Note Facility 01-30-2024 History of Presen t illness Narrative Associated Problem(s): HLD (hyperlipidemia) (CMS/[facility]) Reviewed labs, trigs elevated likely secondary to her uncontrolled diabetes Associated Problem(s): Anxiety and depression (CMS/HCC) Continue current meds Associated Problem(s): Type 2 diabetes mellitus, with long-term current use of insulin (CMS/[facility]) Check blood sugars daily, notify if <70 [...] diet low in carbohydrates, and simple sugars. Continue with diabetic provider Reviewed labs Associated Problem(s): Hypertension (CMS/[facility]) At goal no med dose change Reviewed labs Associated Problem(s): 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 disease) Cont PPI Recommend weight loss Images from the original note were not included. Tasha Paul is a 48 y.o. female presents with chief complaint of No chief complaint on file. HPI: Hypertension This is a chronic problem. The current episode started more than 1 year ago. The problem has been waxing and waning since onset. The problem is uncontrolled. Associated symptoms include anxiety. Pertinent negatives include no chest pain, headaches, orthopnea, palpitations, peripheral edema or shortness of breath. There are no associated agents to hypertension. Risk factors for coronary artery disease include diabetes mellitus, dyslipidemia, obesity, sedentary lifestyle and smoking/tobacco exposure. Past treatments include YESSY inhibitors. The current treatment provides moderate improvement. There are no compliance problems. Depression Visit Type: follow-up Patient presents with the following symptoms: depressed mood and irritability. Patient is not experiencing: anhedonia, confusion, decreased concentration, excessive worry, feelings of hopelessness, feelings of worthlessness, insomnia, nervousness/anxiety, palpitations, restlessness, shortness of breath, suicidal ideas and thoughts of . Frequency of symptoms: occasionally Severity: mild Compliance with medications: 76-100% Anxiety Presents for follow-up visit. Symptoms include depressed mood and irritability. Patient reports no chest pain, confusion, decreased concentration, dizziness, excessive worry, feeling of choking, insomnia, nausea, nervous/anxious behavior, palpitations, restlessness, shortness of breath or suicidal ideas. Symptoms occur occasionally. The severity of symptoms is mild. Compliance with medications is 76-100%. SUBJECTIVE: MEDICATIONS: Current Outpatient Medications Medication Instructions ammonium lactate (Lac-Hydrin) 12 % lotion 1 application , Every 12 hours atorvastatin (LIPITOR) 80 mg, Oral, Every evening Basaglar KwikPen 100 UNIT/ML pen inject 40 [...] 4 times daily lisinopril 40 mg, Oral, Daily loratadine (CLARITIN) 10 mg, Oral, Daily, Take 10 mg by mouth 1 (one) time each day at the same time. metFORMIN (GLUCOPHAGE) 1,000 mg, Oral, Every 12 hours Mounjaro 10 mg, Injection, Every 7 days Multiple Vitamins-Minerals (ONE-A-DAY WOMENS PO) 1 tablet, Oral, Daily NovoLOG 100 UNIT/ML solution 100 mL, Subcutaneous omeprazole (PRILOSEC) 40 mg, Oral, Daily before breakfast sertraline (ZOLOFT) 50 mg, Oral, Every morning ALLERGIES: Allergies Allergen Reactions Dulaglutide Other Reaction(s): vomiting REVIEW OF SYMPTOMS: Review of Systems Constitutional: Positive for irritability. Negative for appetite change, chills and fever. HENT: Negative for congestion, ear pain and sore throat. Eyes: Negative for pain, discharge, redness and visual disturbance. Respiratory: Negative for cough, shortness of breath and wheezing. Cardiovascular: Negative for chest pain, palpitations, orthopnea and leg swelling. Gastrointestinal: Negative for abdominal pain, blood in stool, constipation, diarrhea, nausea and vomiting. Genitourinary: Negative for difficulty urinating, dysuria and frequency. Musculoskeletal: Negative for arthralgias, back pain, joint swelling and myalgias. Skin: Negative for rash and wound. Neurological: Negative for dizziness, tremors, seizures, syncope and headaches. Psychiatric/Behavioral: Positive for depression. Negative for behavioral problems, confusion, decreased concentration, self-injury and suicidal ideas. The patient is not nervous/anxious and does not have insomnia. Hematological: Does not bruise/bleed easily. Endocrine: Negative for polydipsia, polyphagia and polyuria. Allergic/Immunologic: Negative for environmental allergies and food allergies. PAST MEDICAL HISTORY Past Medical History: Diagnosis Date Adenocarcinoma of endometrium, stage 1 ([facility]) 04/30/2017 Total Hysterectomy Anxiety and depression ([facility]) 06/07/2023 Class 3 severe obesity due to excess calories without serious comorbidity with body mass index (BMI) of 40.0 to 44.9 in adult ([facility]) 04/02/2023 Diverticulitis of intestine without perforation or abscess without bleeding, unspecified part of intestinal tract 06/07/2023 Fatty liver History of hysterectomy for cancer 04/30/2017 HLD (hyperlipidemia) [place] 05/24/2023 Learning disabilities 06/07/2023 Narcotic abuse in remission ([facility] 06/07/2023 Partial blindness 06/07/2023 Type 2 diabetes mellitus with diabetic retinopathy ([facility] 06/07/2023 without macular edema, unspecified retinopathy severity Type 2 diabetes mellitus, with long-term current use of insulin ([facility]) 04/02/2023 Past Surgical History: Procedure Laterality Date EYE SURGERY 1999 Laser HYSTERECTOMY 04/30/2017 Total - Adenocarcinoma of Endometrium / Uterus, figo, Grade 1 OTHER SURGICAL HISTORY 02/26/2017 Out pt Laparoscopy TONSILLECTOMY 1995 WISDOM TOOTH EXTRACTION 1997 family history includes Alcohol abuse in her mother; Cancer (age of onset: 41) in her mother; Diabetes in her brother, father, mother, and paternal grandmother; Hypertension in her brother, father, and mother. OBJECTIVE: Visit Vitals BP 144/88 (BP Location: Left arm, Patient Position: Sitting, BP Cuff Size: Adult long) Pulse 107 Temp 98.3 F (Temporal) Resp 20 Ht 5' 6 Wt 267 lb 12.8 oz SpO2 96% BMI 43.22 kg/m Smoking Status Former BSA 2.37 m Physical Exam Vitals and nursing note reviewed. Constitutional: General: She is not in acute distress. Appearance: Normal appearance. HENT: Head: Normocephalic and atraumatic. Right Ear: External ear normal. Left Ear: External ear normal. Nose: Nose normal. Mouth/Throat: Mouth: Mucous membranes are moist. Eyes: Extraocular Movements: Extraocular movements intact. Conjunctiva/sclera: Conjunctivae normal. Cardiovascular: Rate and Rhythm: Normal rate and regular rhythm. Pulses: Normal pulses. Heart sounds: Normal heart sounds. Pulmonary: Effort: Pulmonary effort is normal. Breath sounds: Normal breath sounds. Abdominal: General: Bowel sounds are normal. There is no distension. Palpations: Abdomen is soft. There is no mass. Tenderness: There is no abdominal tenderness. Musculoskeletal: General: Normal range of motion. Cervical back: Normal range of motion and neck supple. Skin: General: Skin is warm and dry. [...] file. Problem List Items Addressed This Visit Major depressive disorder ([facility]) Relevant Medications sertraline (Zoloft) 50 MG tablet 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 disease) Cont PPI Recommend weight loss Relevant Medications omeprazole (PriLOSEC) [address] capsule Hypertension ([facility]) - Primary At goal no med dose change Reviewed labs Relevant Medications lisinopril 40 MG tablet Type 2 diabetes mellitus, with long-term current use of insulin ([facility]) Check blood sugars daily, notify if <70 [...] diet low in carbohydrates, and simple sugars. Continue with diabetic provider Reviewed labs Class 3 severe obesity due to excess calories without serious comorbidity with body mass index (BMI) of 40.0 to 44.9 in adult ([facility]) HLD (hyperlipidemia) ([facility]) Reviewed labs, trigs elevated likely secondary to her uncontrolled diabetes Relevant Medications atorvastatin (Lipitor) 80 MG tablet Anxiety and depression ([facility]) Continue current meds Colon cancer screening Relevant Orders Ambulatory referral to General Surgery Environmental and seasonal allergies Relevant Medications loratadine (Claritin) 10 MG tablet Other Visit Diagnoses Anxiety Relevant Medications sertraline (Zoloft) 50 MG tablet documented in this encounter [facility] 01-23-2024 Telephone encounter Note Please tell pt that her labs all look good, with exception of Vit d being slightly low, does she currently take a vit d supplement? If not I would like to start her on one. Let me know and then I can send something in [place] [facility] 01-23-2024 Miscellaneous Notes Please tell pt that her labs all look good, with exception of Vit d being slightly low, does she currently take a vit d supplement? If not I would like to start her on one. Let me know and then I can send something in [place] documented in this encounter [facility] 08-07-2023 Note HNO ID: [id number] Author: JASON CH MD Service: ? Author [...] BS control and close follow up with PCP/social media project manager - Exam with no NVI or NVD, superior arcade with telangiectatic vessels do not appear to be NVE - Imaging without central DME - Informed pt to call office with vision changes - Continue to follow - F/U with JANELLE Travis in 6 months 2) S/p PPV / MS / EL / C3F8 OS (left eye) 620/18 for with high risk PDR OS and [...] agree with all of its relevant components. [facility] 08-07-2023 History of Presen t illness Narrative The documentation for the note [...] BS control and close follow up with PCP/social media project manager - Exam with no NVI or NVD, [...] its relevant components. documented in this encounter [facility] 06-07-2023 History of Presen t illness Narrative Associated Problem(s): Encounter for subsequent annual wellness visit (AWV) in Medicare patient Reviewed Ht/Wt/BMI Recommend eye exam yearly Recommend dental exams twice a year Balance work/leisure activities Exercises is recommended most days of the week (appropriate as chronic conditions allow) Follow up yearly and prn Associated Problem(s): Anxiety and depression (CMS/HCC) Stable on current meds Associated Problem(s): Type 2 diabetes mellitus, with long-term current use of insulin (CMS/HCC) Not at goal, A1c 10%, continue care with [place] hearing aid specialist Check blood sugars daily, notify if [...] Diagnosis Date Adenocarcinoma of endometrium, stage 1 ([facility]) 04/30/2017 Total Hysterectomy Anxiety and depression ([facility] 06/07/2023 Class 3 severe obesity due to excess calories without serious comorbidity with body mass index (BMI) of 40.0 to 44.9 in adult ([facility]) 04/02/2023 Diverticulitis of intestine without perforation or abscess without bleeding, unspecified part of intestinal tract 06/07/2023 Fatty liver History of hysterectomy for cancer 04/30/2017 HLD (hyperlipidemia) ([facility] 05/24/2023 Learning disabilities 06/07/2023 Narcotic abuse in remission ([facility] 06/07/2023 Partial blindness 06/07/2023 Type 2 diabetes mellitus with diabetic retinopathy ([facility] 06/07/2023 without macular edema, unspecified retinopathy severity Type 2 diabetes mellitus, with long-term current use of insulin ([facility]) 04/02/2023 Past Surgical History: Procedure Laterality Date [...] reflux disease) Stable with current meds Hypertension (CMS/HCC) At goal no changes in meds Type 2 diabetes mellitus, with long-term current use of insulin (CMS/[facility]) Not at goal, A1c 10%, continue care with [place] hearing aid specialist Check blood sugars daily, notify if [...] 44.9 in adult (CMS/HCC) Anxiety and depression (CMS/HCC) Stable on current meds Encounter for screening [...] Cologuard colon cancer screening Other Visit Diagnoses care home (current) use of insulin (Z79.4) documented in this encounter [facility] 02-19-2023 Evaluation note Encounter Date Diagnosis [...] Jan, HTN (hypertension) (ICD-10 - I10) Jan, 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 Author Type: Physician Mandrel Cleaner Type: Progress Notes Filed: 01/31/2023 12:24 PM [...] BS control and close follow up with PCP/social media project manager - Remains stable on exam and imaging - Call office with vision changes - Continue to monitor - Follow up with Dr. Ch in 6 months 2) S/p PPV / MS / EL / C3F8 OS (left eye) 6/18 for with high risk PDR OS and [...] noted below, or sooner if new symptoms develop.[facility]09-26-2023 Evaluation note* Encounter Date Diagnosis [...] spent on education by Rosie CLARK, RN [employer] Other 08-01-2023 Evaluation note* Encounter Date Diagnosis [...] f/u with pcp BP ELEVATED TODAY Nov, care home current use of insulin (ICD-10 - Z79.4) [...] Nov, Other VGO review, fills per NR LEIGH ANN RN/ residential mortgage underwriter. I have spent 30 minutes with this patient and over 50% of the visit was counseling done by myself, Marcela AMANDA. [employer] Other 07-31-2023 Evaluation note* Encounter Date Diagnosis [...] (ICD-10 - K59.00) Pt given miralax samples [employer] Other 07-07-2023 Evaluation note* Encounter Date Diagnosis Assessment Notes Treatment Notes Treatment Clinical Notes Oct, Type 2 diabetes mellitus with hyperglycemia (ICD-10 - E11.65) [employer] Other 06-27-2023 Evaluation note* Encounter Date Diagnosis [...] Neris report downloaded and discussed with Carlene LLOYDP-C. Patient to continue same medication regimen. Written [...] spent on education by Rosie CLARK, RN [employer] Other 06-20-2023 Evaluation note* Encounter Date Diagnosis Assessment Notes Treatment Notes Treatment Clinical Notes Sep, Type 2 diabetes mellitus with hyperglycemia (ICD-10 - E11.65) [employer] Other 05-10-2023 Evaluation note* Encounter Date Diagnosis [...] have episode of abdominal pain at the [facility], lipase was low, no suspicion of pancreatitis, [...] well with high surveillance by our office. [facility] reviewed. Appears she has follow-up regarding CT [...] f/u with pcp BP ELEVATED TODAY August, care home current use of insulin (ICD-10 - Z79.4) [...] August, Other VGO review, fills per NR LEIGH ANN RN/ residential mortgage underwriter. I have spent 30 minutes with this patient and over 50% of the visit was counseling done by myself, Marcela AMANDA. [employer] Other 04-01-2023 History general Narrative - Reported* Type Description Date Medical History DM 2 Medical History HYPERTENSION Medical History DEPRESSION Medical History Opioid abuse Medical History retinopathy bilateral eyes Medical History cystic lesion esophagus 07/2022 [facility] Surgical History RIGHT EYE SURGERY Surgical History LT eye surgery Surgical History hysterectomy 04/2017 Hospitalization History DKA 06/2019 Hospitalization History DKA 0 Hospitalization History [facility] 4-2 023 [employer] Other 03-29-2023 Evaluation note* Encounter Date Diagnosis [...] provided. Discussed pt reaching out to the [facility]. Pt reports she missed her initial scheduled appointment due to a calender mix up, but is rescheduled for 08/10/22. Pt also states she switched PCP providers to Sonya Hardy from [facility]. Pt seems in high spirits regarding [...] spent on education by Rosie CLARK, RN [employer] Other 01-04-2023 Evaluation note* Encounter Date Diagnosis [...] Pt reports she has been sick since Félix Barbara on 04/15/22 and is currently ill. [...] spent on education by Rosie CLARK, RN [employer] Other 11-22-2022 Evaluation note* Encounter Date Diagnosis [...] spent on education by Rosie CLARK, RN. [employer] Other 10-27-2022 Evaluation note* Encounter Date Diagnosis [...] present in 4 weeks for download with lathe operator contact lens and myself in 8 weeks. Patient did [...] (ICD-10 - I10) f/u with pcp Jan, care home current use of insulin (ICD-10 - Z79.4) [...] was counseling done by myself, Marcela AMANDA. [employer] Other 10-11-2022 History of Present illness Narrative* [...] control - Continue close follow up with PCP/social media project manager - VA unchanged - OCT stable without [...] prominent PSC but given baseline VA of , prospect of visual gain remains low. Right [...] if new symptoms develop. [facility]* Encounter Date Diagnosis Assessment Notes [...] with the patient by Heriberto Downs RN, [facility]. [employer] Other 06-07-2022 Evaluation note* Encounter Date Diagnosis [...] (ICD-10 - I10) f/u with pcp Sep, ocean transportation intermediary current use of insulin (ICD-10 - Z79.4) [...] was counseling done by myself, Marcela AMANDA. [employer] Other 04-27-2022 Evaluation note* Encounter Date Diagnosis [...] taking Ozempic 0.25mg SQ injection weekly, per Judy VAZQUEZ, pt may increase Ozempic to 0.5mg SQ [...] spent on education by Rosie CLARK, RN. [employer] Other 04-13-2022 Evaluation note* Encounter Date Diagnosis Assessment Notes Treatment Notes Treatment Clinical Notes Jul, Type 2 diabetes mellitus with hyperglycemia (ICD-10 - E11.65) [employer] Other 04-12-2022 Evaluation note* Encounter Date Diagnosis [...] weekly, x 1 episode of emesis after azerbaijani food. If tolerating without further episodes of emesis can increase at DSME visit to 0.5 mg weekly. Discuss sick day management with patient, needs further review. Hold on SGLT2i_ _ patient with history of EUGLYCEMIC DKA IN THE PAST. _ __ _Blood glucoses have remained elevated, but seems to have increased vigilence. Following up on LIBRE2 SYSTEM from [employer] (has used Libre14 day in the past [...] Per patient needs Metformin sent to Danya Markham/Alfonso Jul, Encounter for medication monitoring (ICD-10 - Z51.81) Jul, Dietary counseling and surveillance (ICD-10 - Z71.3) [employer] material was published to portal Jul, Hyperlipidemia (ICD-10 - E78.5) 04/28/2020 ldl 148, trig 418. start statin, repeat labs Reviewed with pt need for contraception while taking medication, risk anomalies if becomes Jul, HTN (hypertension) (ICD-10 - I10) f/u with pcp Jul, ocean transportation intermediary current use of insulin (ICD-10 - Z79.4) [...] was counseling done by myself, Marcela AMANDA. [employer] Other 03-28-2022 Evaluation note* Encounter Date Diagnosis Assessment Notes Treatment Notes Treatment Clinical Notes Jun, Type 2 diabetes mellitus with hyperglycemia (ICD-10 - E11.65) [employer] Other 03-15-2022 Evaluation note* Encounter Date Diagnosis [...] (ICD-10 - I10) f/u with pcp Jun, ocean transportation intermediary current use of insulin (ICD-10 - Z79.4) [...] was counseling done by myself, Marcela AMANDA. [employer] Other 03-15-2022 Evaluation note* Encounter Date Diagnosis [...] (ICD-10 - I10) f/u with pcp Jun, care home current use of insulin (ICD-10 - Z79.4) [...] was counseling done by myself, Marcela AMANDA. [employer] Other 01-05-2022 Evaluation note* Encounter Date Diagnosis Assessment Notes Treatment Notes Treatment Clinical Notes Apr, Type 2 diabetes mellitus with hyperglycemia (ICD-10 - E11.65) [employer] Other 12-20-2021 Evaluation note* Encounter Date Diagnosis [...] (ICD-10 - I10) f/u with pcp Mar, ocean transportation intermediary current use of insulin (ICD-10 - Z79.4) [...] was counseling done by myself, Marcela AMANDA. [employer] Other 11-22-2021 Evaluation note* Encounter Date Diagnosis Assessment Notes Treatment Notes Treatment Clinical Notes Feb, Type 2 diabetes mellitus with hyperglycemia (ICD-10 - E11.65) [employer] Other [id number] History of Past illness Narrative* Problem Noted Date Resolved Date Diabetes 08/02/2016 documented as of this encounter (statuses as of 01/31/2022) [place] [id number] History of Past illness Narrative* Problem Noted Date Diagnosed Date Resolved Date Diabetes 08/02/2016 documented as of this encounter (statuses as of 08/08/2023) [facility] noteNo assessment information available[facility] CtrEvaluation [employer] Other Evaluation noteNo [employer] Other Evaluation note* Diagnosis 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, unspecified whether rn long term care insulin use ([facility])- Primary Nuclear sclerotic cataract, bilateral 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, bilateral [facility]* Diagnosis Mixed hyperlipidemia ([facility]/HCC)- Primary Mixed hyperlipidemia documented in this encounter [facility] HealthcareEvaluation note* Diagnosis Encounter for subsequent annual wellness visit (AWV) in Medicare patient- Primary Encounter for screening mammogram for malignant neoplasm of breast Primary hypertension ([facility]) Unspecified essential hypertension Gastroesophageal reflux disease, unspecified whether esophagitis present 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, with long-term current use of insulin, macular edema presence unspecified, unspecified laterality, unspecified proliferative retinop* (CMS/HCC) Class 3 severe obesity due to excess calories without serious comorbidity with body mass index (BMI) of 40.0 to 44.9 in adult (CMS/HCC) Anxiety and depression (CMS/HCC) ocean transportation intermediary (current) use of insulin (Z79.4) Colon cancer screening Special screening for malignant neoplasms, colon documented in this encounter [facility] HealthcareEvaluation note* Diagnosis 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, unspecified whether [facility] insulin use (HCC)- Primary 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, bilateral Nuclear sclerotic cataract, bilateral documented in this encounter [facility]* Diagnosis Onset Date Resolution Status Type 2 diabetes mellitus with hyperglycemia acute [facility] Work Phone: Evaluation note* Diagnosis Onset Date Resolution Status Type 2 diabetes mellitus with hyperglycemia acute ADHD acute BMI 40.0-44.9, adult acute Fatty liver acute 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 disease) acute ocean transportation intermediary current use of insulin acute Noncompliance with medication regimen acute Retinopathy of both eyes acu te Type 2 diabetes mellitus with hyperglycemia acute Weight gain acute [facility] Work Phone: evaluation note* Diagnosis Onset Date Resolution Status ADHD acute BMI 40.0-44.9, adult acute Fatty liver acute 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 disease) acute care home current use of insulin acute Noncompliance with medication regimen acute Retinopathy of both eyes acu te Type 2 diabetes mellitus with hyperglycemia acute Weight gain acute Type 2 diabetes mellitus with hyperglycemia acute [facility] Work Phone: Evaluation note* Diagnosis Onset Date Resolution Status Type 2 diabetes mellitus with hyperglycemia acute ADHD acute BMI 40.0-44.9, adult acute Fatty liver acute 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 disease) acute ocean transportation intermediary current use of insulin acute Noncompliance with medication regimen acute Retinopathy of both eyes acu te Type 2 diabetes mellitus with hyperglycemia acute Weight gain acute Type 2 diabetes mellitus with hyperglycemia acute [facility] Work Phone: Evaluation note* Diagnosis Primary hypertension (CMS/HCC)- Primary Unspecified essential hypertension Mixed hyperlipidemia ([facility]) Mixed hyperlipidemia Environmental and seasonal allergies Gastroesophageal reflux disease, unspecified whether esophagitis present Anxiety Anxiety state, unspecified Major depressive disorder with single episode, remission status unspecified ([facility]) Colon cancer screening Special screening for malignant neoplasms, colon 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, with long-term current use of insulin, macular edema presence unspecified, unspecified laterality, unspecified proliferative retinop* ([facility]) Class 3 severe obesity due to excess calories without serious comorbidity with body mass index (BMI) of 40.0 to 44.9 in adult (CMS/HCC) Anxiety and depression (CMS/HCC) documented in this encounter [facility] Narrative - Reported* Type Description Date Medical History DM 2 Medical History HYPERTENSION Medical History DEPRESSION Medical History Opioid abuse Medical History retinopathy bilateral eyes Surgical History RIGHT EYE SURGERY Surgical History LT eye surgery Surgical History hysterectomy 04/2017 Hospitalization History DKA 06/2019 Hospitalization History DKA 0 [facility] [employer] Other History general Narrative - [facility] [employer] Other Reason for referral (narrative)* Consultation (Routine) - Pending Review Specialty Diagnoses / Procedures Referred By Contnely t Referred To Contact General Surgery Diagnoses Colon cancer screening Procedures IA OFFICE/OUTPATIENT [facility] 60 MINUTES Sonya Mejia NP [address] [place] [address] Aram Casey DO [address] [facility] [address] [place] [address] Referral ID Status Reason Start Date Expiration Date Visits Requested Visits Authorized [id number] Pending Review Specialty Services Required 01/30/2024 07/28/2024 1 1 [facility] Healthcare Chief Complaint and Reason for Visit Chief [...] adult Fatty liver 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 disease) ocean transportation intermediary current use of insulin Noncompliance with medication regimen Retinopathy of both eyes Type 2 diabetes mellitus with hyperglycemia Weight gain Chief Complaint DMN f/u / meter E11.65 DL per DS Reason for Visit ADHD BMI 40.0-44.9, adult Fatty liver 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 disease) care home current use of insulin Noncompliance with medication regimen Retinopathy of both eyes Type 2 diabetes mellitus with hyperglycemia Weight gain Type 2 diabetes mellitus with hyperglycemia Chief Complaint DL per DS DMN f/u / meter Reason for Visit Type 2 diabetes marti itus with hyperglycemia ADHD BMI 40.0-44.9, adult Fatty liver 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 disease) ocean transportation intermediary current use of insulin Noncompliance with medication regimen Retinopathy of both eyes Type 2 diabetes mellitus with hyperglycemia Weight gain Chief Complaint DL per DS DMN f/u / meter 2 week DL Reason for Visit Type 2 diabetes marti itus with hyperglycemia ADHD BMI 40.0-44.9, adult Fatty liver 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 disease) care home current use of insulin Noncompliance with medication regimen Retinopathy of both eyes Type 2 diabetes mellitus with hyperglycemia Weight gain Type 2 diabetes mellitus with hyperglycemia Chief Complaint DMN f/u / meter 2 week DL DMN f/u-METER Reason for Visit ADHD BMI 40.0-44.9, adult Fatty liver 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 disease) ocean transportation intermediary current use of insulin Noncompliance with medication [...] 2 Callus of toe (L84) Referral Organization [facility] Referring Provider First Name Glenna Referring Provider Last Name Joni Referring Provider Specialty Nurse Pract itioner Referred Organization Podiatry Referred Address [address] [facility],[place] [address],[place], [place],[address] Referred Provider Specialty Podiatry - S urgical [...] or prosecute any alcohol or drug abuse patient.[facility] SystemIn the event this information is protected by the Federal Confidentiality of Alcohol and Drug Abuse Patient Records regulations: The Federal rules restrict any use of the information to criminally investigate or prosecute any alcohol or drug abuse patient.[facility] Care Teams (unrecognized sec tion and content) Team Status: Active Member Role Status Dates Sonya Mejia Primary Care Provider Active Team Status: Inactive Member Role Status Dates Services Family [facility] Primary Care Provider Active Start: May 28, 2023 End: May 28, 2023 Mariam Beyer APRN Attending Provider Active Start: May 28, 2023 End: May 28, 2023 Wedding Decorator Relationship Specialty Start Date End Date Jessica Owens MD [address] [place] [address] PCP - General Family Medicine 06/07/18 Team Status: Active Member Role Status Dates [facility] Primary Care Provider Active Mariam Beyer , SKIN TOGGLER Attending Provider Active Team Status: Inactive Member Role Status Dates Sonya Timothy Mejia Primary Care Provider Active Glenna Quinones , SKIN TOGGLER Attending Provider Active Team Status: Inactive Member Role Status Dates Sonya Timothy Mejia Primary Care Provider Active Mark Gramajo SKIN TOGGLER Attending Provider Active Wedding Decorator Relationship Specialty Start Date End Date Abad Garcia MD PCP - General Family Medicine 11/13/22 Sonya Mejia NP [address] [place] [phone] Referring Physician Nurse Practitioner 11/13/22 Wedding Decorator Relationship Specialty Start Date End Date Abad Garcia MD [address] [place] [phone] PCP - General Family Medicine 06/07/23 Sonya Mejia NP [address] [place] [phone] Referring Physician Nurse Practitioner 11/13/22 Sonya Mejia NP [address] [place] [phone] Nurse Practitioner Family Medicine 06/07/23 Wedding Decorator Relationship Specialty Start Date End Date Abad Garcia MD [address] [place] [phone] PCP - General Family Medicine 06/07/23 Sonya Mejia NP [address] [place] [phone] Referring Physician Nurse Practitioner 11/13/22 Sonya Mejia NP [address] [place] [phone] Nurse Practitioner Family Medicine 06/07/23 Wedding Decorator Relationship Specialty Start Date End Date Jessica Owens MD [address] [place] [address] PCP - General Family Medicine 06/07/18 Team Status: Active Member Role Status Dates Sonya Mejia Primary Care Provide r, Attending Provider Active Start: May 28, 2023 Team Status: Inactive Member Role Status Dates Sonya Mejia Primary Care Provider Active Sta rt: June 26, 2023 End: June 26, 2023 Blane Downs RN Attending Provider Active St art: June 26, [...] 2023 End: October 11, 2023 Rosie Witt , DINORAH Attending Provider Active Start: October 11, 2023 [...] Status: Inactive Member Role Status Dates Sonya Aguirre Emanidanishclyde Primary Care Provider Active Sta rt: December 17, 2023 End: December 17, 2023 Rosie Witt RN Attending Provider Active Start: December 17, 2023 End: December 17, 2023 Glenna Quinones APRN Active Star t: December 17, 2023 End: December 17, 2023 Team Status: Inactive Member Role Status Dates Sonya Timothy Mejia Primary Care Provider Active Sta rt: January 22, 2024 End: January 22, 2024 Glenna Quinones APRN Attending Provider Active Start: January 22, 2024 End: January 22, 2024 Wedding Decorator Relationship Specialty Start Date End Date Abad Garcia MD [address] [place] [phone] PCP - General Family Medicine 06/07/23 Sonya Mejia NP [address] [place] [phone] Referring Physician Nurse Practitioner 11/13/22 Sonya Mejia NP [address] [place] [phone] Nurse Practitioner Family Medicine 06/07/23 Wedding Decorator Relationship Specialty Start Date End Date Abad Garcia MD [address] [place] [phone] PCP - General Family Medicine 06/07/23 Sonya Mejia NP [address] [place] [phone] Referring Physician Nurse Practitioner 11/13/22 Sonya Mejia NP [address] [place] [phone] Nurse Practitioner Family Medicine 06/07/23 Wedding Decorator Relationship Specialty Start Date End Date Abad Garcia MD [address] [place] [phone] PCP - General Family Medicine 06/07/23 Sonya Mejia NP [address] [place] [address] Referring Physician Nurse Practitioner 11/13/22 Sonya Mejia NP [address] [place] [address] Nurse Practitioner Family Medicine 06/07/23 INFORMATION SOURCE (unrecogn ized section and content) DATE CREATED AUTHOR 09/07/[address] [facility] DATE CREATED AUTHOR AUTHOR'S ORGANIZ ATION 08/08/2023 [facility] DATE CREATED AUTHOR AUTHOR'S ORGANIZ ATION 08/23/2023 [facility] DATE CREATED AUTHOR AUTHOR'S ORGANIZ ATION 02/01/2024 [facility] EPIC Inactive Administered Medications - up to 3 most recent administrations Administered Medications (un recognized section and content) Medication Order MAR Action Action Date Dose Rate Site PHENYLephrine 2.5 % 1 Drop (AK-DILATE, JESU-SYNEPHRINE) 1 Drop, BOTH EYES, DIRECTED, Starting on Sun08/07/23 at 1300, Until Sun08/08/23 at 005, Administer for dilation PROTECT FROM LIGHT, OPHT CLINIC MED ORDERS Given 08/07/2023 1:00 PM EDT 1 Drop proparacaine 0.5 % 1 Drop (ALCAINE) 1 Drop, BOTH EYES, DIRECTED, Starting on Sun08/07/23 at 1300, Until Sun08/08/23 at 0059, Administer for pneumo tonometry, tonopen tonometry, or [...] 1300, Until Sun08/08/23 at 0059, Administer for dilation, OPHT CLINIC MED ORDERS [...] BE BASED ON THE PRIMARY CLINICAL RECORDS. [facility] [employer] [facility]. provides no warranty or guarantee of the accuracy or completeness of information in this document.
--- NOTE | 2024-02-10 21:41 | XR_ITS ---
The [address] [address] Patient Name: HE REVELES MRN: [id number] date: 1975 Sex: F Assigned Patient Location: ER Current Patient Location: ED.MAIN Accession/Order Number: [id number] Exam Date: 02/10/2024 21:50 Report Date: 02/10/2024 22:41 At the request of: RENNY WADSWORTH Procedure: XR chest 1V CXR HISTORY: Shortness of breath COMPARISON: None. TECHNIQUE: 1 view chest submitted for review. FINDINGS: The lungs are adequately expanded without evidence of acute infiltrate or effusion. The cardiac silhouette measures within normal. Pulmonary vascularity is unremarkable. Osseous structures do not demonstrate any acute abnormality. XR/XR chest 1V IMPRESSION: Mild prominence of interstitial lung markings. Please correlate for viral etiology. Electronically authenticated by: CORINNA MCGRAW Date: 02/10/2024 22:41
--- NOTE | 2024-02-10 21:41 | ECG_ITS ---
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
--- NOTE | 2024-02-10 21:42 | ED.GENADUL1 ---
HPI HPI - General Adult General Chief complaint: Recheck/Abnormal Lab/Rx Stated complaint: DIABETIC COMPLICATION Time Seen by Provider: 02/10/24 21:32 Source: patient Mode of arrival: Wheelchair Limitations: no limitations History of Present Illness HPI narrative: 48-year-old female presents for high blood sugar. She thinks she may be in DKA. She had been out of her insulin for about a week because her pharmacy was not getting it in but she did get some insulin from different pharmacy yesterday and took a dose. She has had dry mouth and has been nauseous and feels tired. No fever or chest pain. Symptoms present for the last few days. Related Data Home Medications ?Medication ?Instructions ?Recorded ?Confirmed atorvastatin 80 mg tablet 80 mg PO DAILY 02/10/24 02/10/24 insulin aspart (niacinamide) 02/10/24 (U-100) 100 unit/mL subcutaneous solution (Fiasp U-100 Insulin) lisinopril 40 mg tablet 40 mg PO DAILY 02/10/24 02/10/24 loratadine 10 mg tablet (Allergy 10 mg PO DAILY 02/10/24 02/10/24 Relief (loratadine)) metformin 1,000 mg tablet 1,000 mg PO BID 02/10/24 02/10/24 omeprazole 40 mg capsule,delayed 40 mg PO DAILY 02/10/24 02/10/24 release sertraline 50 mg tablet 50 mg PO DAILY 02/10/24 02/10/24 Previous Rx's ?Medication ?Instructions ?Recorded ondansetron 4 mg disintegrating 4 mg PO Q6H PRN nausea and 02/11/24 tablet vomiting #20 tabs Allergies Allergy/AdvReac Type Severity Reaction Status Date / Time No Known Drug Allergies Allergy Verified 02/10/24 21:35 Opioid HPI Opioid Management Most Recent Opioid Data: Last ED Pain Assessment 02/10/24 22:49 Review of Systems ROS Narrative A ten point review of systems is negative except as noted above. PFSH PFSH Social History Little interest or pleasure in doing things: not at all Feeling down, depressed, or hopeless: not at all Exam Narrative Exam Narrative: Nurses note and vital signs reviewed and patient is not hypoxic. General: The patient appears well and in no apparent distress. Patient is resting comfortably on cart. Skin: Warm, dry, no pallor noted. There is no rash noted. Head: Normocephalic, atraumatic Eye: Normal conjunctiva, no drainage, EOMI. PERRL Ears, Nose, Mouth, and Throat: oral mucosa is somewhat dry. Nares patent. Cardiovascular: Regular Rate and Rhythm, tachycardic Respiratory: Patient is in no distress, no accessory muscle use, lungs are clear to auscultation, no wheezing, rales or rhonchi, tachypneic Back: non-tender GI: Obese soft and nontender Musculoskeletal: The patient has no evidence of calf tenderness, no pitting edema, symmetrical pulses noted bilaterally Neurological: A&O, normal speech Psychiatric: Cooperative Constitutional Vital Signs, click to edit/add: Last Vital Signs Temp 97.5 F L 02/10/24 21:35 Pulse 124 H 02/10/24 23:32 Resp 20 02/10/24 23:32 BP 168/88 H 02/10/24 23:32 Pulse Ox 97 02/10/24 23:32 O2 Del Method Room Air 02/10/24 23:32 Course Vital Signs Vital signs: Vital Signs Temperature 97.5 F L 02/10/24 21:35 Pulse Rate 134 H 02/10/24 21:35 Respiratory Rate 22 H 02/10/24 21:35 Blood Pressure 185/112 H 02/10/24 21:35 Pulse Oximetry 99 02/10/24 21:35 Oxygen Delivery Method Room Air 02/10/24 21:35 Temperature 97.5 F L 02/10/24 21:35 Pulse Rate 124 H 02/10/24 23:32 Respiratory Rate 20 02/10/24 23:32 Blood Pressure 168/88 H 02/10/24 23:32 Pulse Oximetry 97 02/10/24 23:32 Oxygen Delivery Method Room Air 02/10/24 23:32 Medical Decision Making MDM Narrative Medical decision making narrative: The patient does not appear to be in DKA. She had gone several days without her insulin but resumed it yesterday. Blood sugar was 255 upon arrival and her pH is 7.41. Small serum acetone was present. And her bicarb is slightly low at 17.6. She was given IV fluids and after 2 L her blood sugar was coming down appropriately. She still feels nauseous and is still tachycardic so we will keep her in the hospital overnight for observation. Findings were discussed with the patient Differential Diagnosis Differential Diagnosis: DKA, hyperglycemia, dehydration Lab Data Lab results reviewed: Yes I reviewed the patient's lab results Labs: Lab Results 02/10/24 02/10/24 02/10/24 Range/Units 21:43 21:55 22:45 WBC 11.7 H (4.0-11.0) 10^3/uL RBC 5.44 H (4.20-5.40) 10^6/uL Hgb 15.6 (12.0-16.0) g/dL Hct 45.1 (36.0-48.0) % MCV 82.9 (81.0-99.0) fL MCH 28.7 (26.7-34.0) pg MCHC 34.6 (29.9-35.2) g/dL RDW 13.5 (11.0-15.0) % Plt Count 361 (150-450) 10^3/uL MPV 10.1 (9.5-13.5) fL Neut % (Auto) 79.5 H (43.0-75.0) % Lymph % (Auto) 13.3 L (20.5-60.0) % [place] % (Auto) 6.0 (1.7-12.0) % Eos % (Auto) 0.0 L (0.9-7.0) % Baso % (Auto) 0.5 (0.2-2.0) % Neut # (Auto) 9.3 H (1.4-6.5) 10^3/uL Lymph # (Auto) 1.6 (1.2-3.8) 10^3/uL [place] # (Auto) 0.7 (0.3-0.8) 10^3/uL Eos # (Auto) 0.0 (0.0-0.7) 10^3/uL Baso # (Auto) 0.1 (0.0-0.1) 10^3/uL Abs Immat Gran (auto) 0.08 H (0.00-0.03) 10^3/uL Imm/Tot Granulo (auto) 0.7 H (0.0-0.5) % VBG pH 7.419 (7.330-7.430) VBG pCO2 28.2 L (40.0-52.0) mmHg Sodium 136 (136-145) mmol/L Potassium 4.0 (3.5-5.1) mmol/L Chloride 101 (98-107) mmol/L Carbon Dioxide 17.6 L (21.0-32.0) mmol/L Anion Gap 21.4 BUN 25.0 H (7.0-18.0) mg/dL Creatinine 0.94 (0.55-1.02) mg/dL Est GFR ( Amer) >60 (>=60 mL/min/1.73m^2) Est GFR (Non-Af Amer) >60 (>=60 mL/min/1.73m^2) BUN/Creatinine Ratio 26.6 Glucose 288 H (74-106) mg/dL Calcium 9.5 (8.5-10.1) mg/dL Serum HCG, Qual Negative (NEGATIVE) Urine Color (YELLOW) Urine Clarity (CLEAR) Urine pH (5.0-9.0) Ur Specific [place] (1.005-1.025) Urine Protein (NEG/TRACE) mg/dL Urine Glucose (UA) (NEGATIVE) mg/dL Urine Ketones (NEGATIVE) mg/dL Urine Occult Blood (NEGATIVE) Urine Nitrite (NEGATIVE) Urine Bilirubin (NEGATIVE) Urine Urobilinogen (0.2-1.0) EU/dL Ur Leukocyte Esterase (NEGATIVE) Urine RBC (0-2) #/HPF Urine WBC (NONE SEEN) #/HPF Ur Squamous Epith Cells (NONE/RARE) #/LPF Urine Crystals (None Seen) #/HPF Urine Bacteria (NONE SEEN) #/HPF Urine Casts (NONE SEEN) #/LPF Urine Mucus (NONE SEEN) Urine Yeast (NONE SEEN) Ur Culture Indicated? Acetone, Qual Small A (NEGATIVE) POC Glucose 255 H 230 H (74-106) mg/dL 02/09/ Range/Units 22:55 WBC (4.0-11.0) 10^3/uL RBC (4.20-5.40) 10^6/uL Hgb (12.0-16.0) g/dL Hct (36.0-48.0) % MCV (81.0-99.0) fL MCH (26.7-34.0) pg MCHC (29.9-35.2) g/dL RDW (11.0-15.0) % Plt Count (150-450) 10^3/uL MPV (9.5-13.5) fL Neut % (Auto) (43.0-75.0) % Lymph % (Auto) (20.5-60.0) % [place] % (Auto) (1.7-12.0) % Eos % (Auto) (0.9-7.0) % Baso % (Auto) (0.2-2.0) % Neut # (Auto) (1.4-6.5) 10^3/uL Lymph # (Auto) (1.2-3.8) 10^3/uL [place] # (Auto) (0.3-0.8) 10^3/uL Eos # (Auto) (0.0-0.7) 10^3/uL Baso # (Auto) (0.0-0.1) 10^3/uL Abs Immat Gran (auto) (0.00-0.03) 10^3/uL Imm/Tot Granulo (auto) (0.0-0.5) % VBG pH (7.330-7.430) VBG pCO2 (40.0-52.0) mmHg Sodium (136-145) mmol/L Potassium (3.5-5.1) mmol/L Chloride (98-107) mmol/L Carbon Dioxide (21.0-32.0) mmol/L Anion Gap BUN (7.0-18.0) mg/dL Creatinine (0.55-1.02) mg/dL Est GFR ( Amer) (>=60 mL/min/1.73m^2) Est GFR (Non-Af Amer) (>=60 mL/min/1.73m^2) BUN/Creatinine Ratio Glucose (74-106) mg/dL Calcium (8.5-10.1) mg/dL Serum HCG, Qual (NEGATIVE) Urine Color Lt. yellow (YELLOW) Urine Clarity Clear (CLEAR) Urine pH 6.0 (5.0-9.0) Ur Specific [place] 1.025 (1.005-1.025) Urine Protein Negative (NEG/TRACE) mg/dL Urine Glucose (UA) 500 A (NEGATIVE) mg/dL Urine Ketones >=80 A (NEGATIVE) mg/dL Urine Occult Blood Trace-l (NEGATIVE) Urine Nitrite Negative (NEGATIVE) Urine Bilirubin Small A (NEGATIVE) Urine Urobilinogen 0.2 (0.2-1.0) EU/dL Ur Leukocyte Esterase Negative (NEGATIVE) Urine RBC 0-2 (0-2) #/HPF Urine WBC 2-5 A (NONE SEEN) #/HPF Ur Squamous Epith Cells Few A (NONE/RARE) #/LPF Urine Crystals None seen (None Seen) #/HPF Urine Bacteria Trace A (NONE SEEN) #/HPF Urine Casts None seen (NONE SEEN) #/LPF Urine Mucus None seen (NONE SEEN) Urine Yeast Seen A (NONE SEEN) Ur Culture Indicated? No Acetone, Qual (NEGATIVE) POC Glucose (74-106) mg/dL ECG Data Attestation: I personally reviewed and interpreted this ECG as follows: (EKG on my interpretation shows sinus tachycardia with a rate of 131) Discharge Plan Discharge Chief Complaint: Recheck/Abnormal Lab/Rx Clinical Impression: Nausea & vomiting, Hyperglycemia Patient Disposition: Admitted as Observation Time of Disposition Decision: 00:04 Condition: Good Mode of Transportation: Private Vehicle Prescriptions / Home Meds: New ondansetron 4 mg tablet,disintegrating 4 mg PO Q6H PRN (Reason: nausea and vomiting) Qty: 20 0RF No Action sertraline 50 mg tablet 50 mg PO DAILY omeprazole 40 mg capsule,delayed release(DR/EC) 40 mg PO DAILY metformin 1,000 mg tablet 1,000 mg PO BID loratadine [Allergy Relief (loratadine)] 10 mg tablet 10 mg PO DAILY lisinopril 40 mg tablet 40 mg PO DAILY atorvastatin 80 mg tablet 80 mg PO DAILY Fiasp U-100 Insulin 100 unit/mL solution Print Language: Tajik Instructions: Acute Nausea and Vomiting (ED), Diabetic Hyperglycemia (ED) Referrals: Sonya Mejia, [employer] [Primary Care Provider] - 1 week
[2024-02-10 21:43] LABS: Glucometer 255 mg/dL (74-106)
[2024-02-10] MEDS: 0.9 % SODIUM CHLORIDE 1,000 ML 1000 ML IV ×2 (21:55→22:51)
[2024-02-10] MEDS: ONDANSETRON PF 4 MG/2 ML VIAL IV ×2 (21:55→23:31)
[2024-02-10 21:58] LABS: PCO2 VBG 28.2 mmHg (40.0-52.0); pH VBG 7.419 (7.330-7.430)
[2024-02-10 21:59] LABS: Basophils Absolute Auto 0.1 10^3/uL (0.0-0.1); Basophils Percent Auto 0.5 % (0.2-2.0); Hematocrit 45.1 % (36.0-48.0); Hemoglobin 15.6 g/dL (12.0-16.0); Immature Granulocytes Abs Auto 0.08 10^3/uL (0.00-0.03); Immature Granulocytes Pct Auto 0.7 % (0.0-0.5); Lymphocytes Absolute Auto 1.6 10^3/uL (1.2-3.8); Lymphocytes Percent Auto 13.3 % (20.5-60.0); Mean Corpuscular HGB Conc 34.6 g/dL (29.9-35.2); Mean Corpuscular Hemoglobin 28.7 pg (26.7-34.0); Mean Corpuscular Volume 82.9 fL (81.0-99.0); Mean Platelet Volume 10.1 fL (9.5-13.5); Monocytes Absolute Auto 0.7 10^3/uL (0.3-0.8); Neutrophils Absolute Auto 9.3 10^3/uL (1.4-6.5); Neutrophils Percent Auto 79.5 % (43.0-75.0); Platelet Count 361 10^3/uL (150-450); Red Blood Count 5.44 10^6/uL (4.20-5.40); Red Cell Distribution Width 13.5 % (11.0-15.0); White Blood Count 11.7 10^3/uL (4.0-11.0)
--- NOTE | 2024-02-10 22:00 | PC.NURSE ---
Patient believes she is in diabetic ketoacidosis , she went several days without insulin and is having increased nausea and vomiting and increased urination.
[2024-02-10 22:08] LABS: Anion Gap 21.4; BUN Creatinine Ratio 26.6; Calcium 9.5 mg/dL (8.5-10.1); Carbon Dioxide 17.6 mmol/L (21.0-32.0); Chloride 101 mmol/L (98-107); Estimated GFR (African America >60 (>=60 mL/min/1.73m^2); Estimated GFR (Non-African Ame >60 (>=60 mL/min/1.73m^2); Glucose 288 mg/dL (74-106); Sodium 136 mmol/L (136-145)
[2024-02-10] MEDS: KETOROLAC TROMETHAMINE 60 MG/2 ML VIAL IM (22:10)
[2024-02-10 22:13] LABS: Acetone SMALL (NEGATIVE); HCG Qualitative NEGATIVE (NEGATIVE); Internal Control Within Normal Limits
[2024-02-10 22:46] LABS: Glucometer 230 mg/dL (74-106)
[2024-02-10 23:00] LABS: Bilirubin Urine SMALL (NEGATIVE); Blood Urine TRACE-L (NEGATIVE); Clarity Urine CLEAR (CLEAR); Color Urine LT. YELLOW (YELLOW); Glucose Urine UA 500 mg/dL (NEGATIVE); Ketones Urine >=80 mg/dL (NEGATIVE); Leukocyte Esterase Urine NEGATIVE (NEGATIVE); Nitrite Urine NEGATIVE (NEGATIVE); Protein Urine NEGATIVE (NEG/TRACE); Specific Gravity Urine 1.025 (1.005-1.025); Urobilinogen Urine 0.2 EU/dL (0.2-1.0)
[2024-02-10 23:20] LABS: Bacteria Urine TRACE #/HPF (NONE SEEN); Crystals Seen? None Seen #/HPF (None Seen); Mucus Urine NONE SEEN (NONE SEEN); RBC Urine 0-2 #/HPF (0-2); Squamous Epithelial Cell Urine FEW #/LPF (NONE/RARE)
[2024-02-10 23:21] LABS: Cast Seen? NONE SEEN #/LPF (NONE SEEN); Urine Culture Indicated NO
--- OUTSIDE RECORDS SUMMARY | 2024-02-11 01:13 | XMS_ITS | CCD ---
Author Organization [facility] Care Team Providers Care Funeral Service Practitioner/Embalmer Name Role Phone [facility] Primary Care Provider [phone] Mariam Beyer Attending Provider Abner Cartwright Attending Provider [phone] Glenna Quinones Unavailable Jessica Owens MD Primary Care Provider Sonya Mejia Primary Care Provider [phone] HARI Quinones Attending Provider [facility] Primary Care Provider HARI Beyer Attending Provider AICHHOLZ, CLASSIFICATION OFFICER SONYA Attending Unavailable AICHHOLZ, CLASSIFICATION OFFICER SONYA Admitting Unavailable AICHHOLZ, CLASSIFICATION OFFICER SONYA Primary Care Unavailable AICHHOLZ, CLASSIFICATION OFFICER SONYA Attending Unavailable AICHHOLZ, CLASSIFICATION OFFICER SONYA Admitting Unavailable DR MATT CABRERA Primary Care Unavailable AICHHOLZ, CLASSIFICATION OFFICER SONYA Consulting Unavailable AICHHOLZ, CLASSIFICATION OFFICER SONYA Attending Unavailable AICHHOLZ, CLASSIFICATION OFFICER SONYA Admitting Unavailable AICHHOLZ, CLASSIFICATION OFFICER SONYA Primary Care Unavailable AICHHOLZ, CLASSIFICATION OFFICER SONYA Consulting Unavailable DR VALERIANO SINCLAIR Consulting Unavailable KAYA PATEL Consulting Unavailable ADAM DUMONT Admitting Unavailable ADAM DUMONT Attending Unavailable AICHHOLZ, CLASSIFICATION OFFICER SONYA Primary Care Unavailable ADAM DUMONT Consulting Unavailable Mark Gramajo Unavailable [facility] Primary Care Provider HARI Beyer Attending Provider Aichholz, Sonya J Primary Care Provider HARI Gramajo Attending Provider Jose APODACA, Abad Primary Care Provider Aicnati HEAVY LIFT RIGGER, Sonya Unavailable [facility] Primary Care Provider [phone] HARI Beyer Attending Provider Jose APODACA, Abad Primary Care Provider Aicnati HEAVY LIFT RIGGER, Sonya Unavailable Bob APODACA, Jessica Primary Care Provider JESSICA OWENS Primary Care Unavailable JASON CH Referring Unavailable JASON CH Attending Unavailable GLENDY PÉREZ Attending Unavailable JESSICA OWENS Primary Care Unavailable [facility] Primary Care Provider [phone] HARI Beyer Attending Provider Jackie Sonya J Primary Care Provider [phone] HARI Quinones Attending Provider Mark Gramajo Attending Unavailable Mark Gramajo Admitting Unavailable Aichholz, Sonya J Primary Care Unavailable [facility] Primary Care Unavaila ble Marisolus Tondra K Attending Unavailable Mapus, Tondra K Admitting Unavailable Glenna Quinones Attending Unavailable Glenna Quinones Admitting Unavailable Aichholz, Sonya J Primary Care Unavailable Mark Gramajo Attending Unavailable Mark Gramajo Admitting Unavailable Aichholz, Sonya J Primary Care Unavailable Aichholz HEAVY LIFT RIGGER, Sonya Unavailable JACKIE SONYA Attending Unavailable AICHHOLZ, SONYA Attending Unavailable AICHHOLZ, SONYA Attending Unavailable AICHHOLZ, SONYA Attending Unavailable Allergies Allergy Classification Reported Allergen(s) Allergy Type Date of Onset Reaction(s) Facility (20 sources) SGLT2s Propensity to adverse reactions DKA x2 New KCBX Other (3 sources) Seasonal allergy; Translations: [SEASONAL ALLERGIES] Allergy to substance 2 Other: See Comments [facility] (9 sources) dulaglutide Drug Allergy 2 NOMS [...] sources) Fish Oil Active Flash Glucose Scanning [place] (Freestyle Neris 2 Iroquois) misc (6 sources) Start: 08-21-19 Flash Glucose Scanning [place]ois (Freestyle Neris 2 [place]ro[place]ois) misc Active 0 .Route August 21, 2023 12:00am As directed Start: 08-21-2023 Flash Glucose Scanning [place]ois (Freestyle Neris 2 [place]ro[place]ois) misc Active 0 .ROUTE August 21, 2023 [...] days for 84 days Active FreeStyle Neris [place] - (20 sources) Start: 01-21-2020 FreeStyle Libr e [place]ro[place]ois - as directed use with 14 days sensor check glucose with reader ac, hs, prn Dec, Active FreeStyle Neris [place] - as directed use with 14 days [...] Start: 11-02-2022 take 2 tablets by mo [facility] once daily in the morning lisinopril 20 [...] traction retinal detachments involving maculae, unspecified whether 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 0 Active aq-zb-iujt-FA-Ca carb-vit K (Women's Multivitamin) (6 sources) Start: 08-21-2023 take 1 tablet by mouth once daily rt-jy-npcd-FA-Ca carb-vit K (Women's Multivitamin) Active 1 TAB [...] traction retinal detachments involving maculae, unspecified whether nursing home insulin use (HCC) , Nuclear sclerotic cataract, [...] November 04, 2019 1:14pm Flash Glucose Scanning I[place]ois (Freestyle Neris 14 Day Iroquois) misc (6 sources) Start : 08-20 End: 08-20 Flash Glucose Scanning [place]ois (Freestyle Neris 14 Day Iroquois) misc Discontinued 0 .Route August 21, 2023 [...] traction retinal detachments involving maculae, unspecified whether nursing home insulin use (HCC) , Nuclear sclerotic cataract, [...] Resolved: 2 Episodic Other aftercare (15 sources) 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; Translations: [Long-term (current) use of insulin] Onset: 1 Resolved: 2 Episodic Other aftercare (1 source) Other nursing home (current) drug therapy; Translations: [OTH USP CURRENT DRUG THERAPY] Onset: 3 Episodic Other aftercare (1 source) 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; Translations: [USP USE ORAL HYPOGLYCEMIC DX] Onset: 3 Episodic [...] sources) Long-term current use of insulin; Translations: [FDC (current) use of insulin] Onset: 10-15-2023 06-07-2023 [...] (Bld) 0.9 % 0.2 - 2.0 % [facility] Eosinophils/100 WBC (Bld) 1.2 % 0.9 - 7.0 % [facility] Erythrocyte distribution width (RBC) [Ratio] 13.3 % 11.0 - 15.0 % [facility] Hematocrit (Bld) [Volume fraction] 43.0 % 36.0 - 48.0 % [facility] Hemoglobin (Bld) [Mass/Vol] 14.5 g/dL 12.0 - 16.0 g/dL [facility] IMMATURE GRANULOCYTES ABS AUTO 0.04 High [facility] Immature granulocytes/100 WBC (Bld) 0.3 % 0.0 - 0.5 % [facility] Interpretation and review of laboratory results Abnormal [facility] LYMPHOCYTES ABSOLUTE AUTO 3.9 High [facility] Lymphocytes/100 WBC (Bld) 32.0 % 20.5 - 60.0 % [facility] MCH (RBC) [Entitic mass] 28.8 pg 26.7 - 34.0 pg [facility] MCHC (RBC) [Mass/Vol] 33.7 g/dL 29.9 - 35.2 g/dL [facility] MCV (RBC) [Entitic vol] 85.5 fL 81.0 - 99.0 fL [facility] MONOCYTES ABSOLUTE AUTO 0.8 [facility] Monocytes/100 WBC (Bld) 6.3 % 1.7 - 12.0 % [facility] NEUTROPHILS ABSOLUTE AUTO 7.2 High [facility] Neutrophils/100 WBC (Bld) 59.3 % 43.0 - 75.0 % [facility] Platelet mean volume (Bld) [Entitic vol] 9.8 fL 9.5 - 13.5 fL [facility] EO # 0.1 [facility] PLT 311 [facility] RBC 5.03 [facility] WBC 12.1 High [facility] MICROALB CREAT RATIO KAILYN Chang 01-22-2024 CREATININE URINE RANDOM 234.83 mg/dL 20.00 - 300.00 mg/dL [facility] MICROALBUM CREATININE RATIO UR 8.5 mg/g 0.0 - 29.9 mg/g [facility] Comment on above: NO MICROALBUMINURIA 0-29 MG/G CLINICAL MICROALBUMINURIA 30-300 MG/G MACROALBUMINURIA >300 MG/G MICROALBUMIN URINE RANDOM 2.0 mg/[facility] TBH UA (CLEAN/CATCH) MICROSC OPIC IF INDICATEon 01-22-2024 BILIRUBIN URINE Negative NEGATIVE [facility] BLOOD URINE Negative NEGATIVE [facility] Clarity (U) CLEAR CLEAR [facility] Color (U) YELLOW YELLOW [facility] GLUCOSE URINE UA 100 mg/dL Abnormal NEGATIVE [facility] Interpretation and review of laboratory results Abnormal [facility] Ketones Ql (U) Negative NEGATIVE mg/dL [facility] Leukocyte esterase Test strip Ql (U) Negative NEGATIVE [facility] NITRITE URINE Negative NEGATIVE [facility] pH (U) 5.5 [pH] 5.0 - 9.0 [facility] PROTEIN URINE Negative NEG/TRACE mg/dL [facility] SPECIFIC GRAVITY URINE >=1.030 Abnormal 1.005 - 1.025 [facility] URINE MICROSCOPIC INDICATED NO [facility] UROBILINOGEN URINE 0.2 EU/dL 0.2 - 1.0 EU/dL [facility] HbA1c HPLC (Bld) [Mass fract ion]on 11-26-2023 HbA1c (Bld) [Mass fraction] 8.4 % [facility] No Panel Informationon 11-25 Bedside Glucose 72 [facility] Alanine aminotransferase [En zymatic activity/volume] in Serum or PlasmaOrdered By: Glenna Quinones on 08-21-2023 ALT [Catalytic activity/Vol] 31 U/L 7-52 [facility] Albumin [Mass/volume] in Ser um or Plasma by Bromocresol green (BCG) dye binding methoOrdered By: Glenna Quinones on 08-21-2023 Albumin BCG dye [Mass/Vol] 4.1 g/dL 3.5-5.7 [facility] Alkaline phosphatase [Enzyma tic activity/volume] in Serum or PlasmaOrdered By: Glenna Quinones on 08-21-2023 ALP [Catalytic activity/Vol] 84 U/L 34-104 [facility] Aspartate aminotransferase [ Enzymatic activity/volume] in Serum or PlasmaOrdered By: Glenna Quinones on 08-21-2023 AST [Catalytic activity/Vol] 21 U/L 13-39 [facility] Bilirubin.total [Mass/volume ] in Serum or PlasmaOrdered By: Glenna Quinones on 08-21-2023 Bilirubin [Mass/Vol] 0.5 mg/dL 0.3-1.0 [facility] Calcium [Mass/volume] in Ser um or PlasmaOrdered By: Glenna Quinones on 08-21-2023 Calcium [Mass/Vol] 9.8 mg/dL 8.6-10.3 [facility] Carbon dioxide, total [Moles /volume] in Serum or PlasmaOrdered By: Glenna Quinones on 08-21-2023 CO2 [Moles/Vol] 30.1 mmol/L 21.0-31.0 [facility] Chloride [Moles/volume] in S cindy or PlasmaOrdered By: Glenna Quinones on 08-21-2023 Chloride [Moles/Vol] 102 mmol/L 98-107 [facility] Cholesterol [Mass/volume] in Serum or PlasmaOrdered By: Glenna Quinones on 08-21-2023 Cholesterol [Mass/Vol] 245 mg/dL 140-200 [facility] Comment on above: Chol less than 200 m g/dl low riskChol 201-239 mg/dl borderline riskChol 240 mg/dl and greater high risk Cholesterol in LDL Calc [Mas s/Vol]Ordered By: Glenna Quinones on 08-21-2023 Cholesterol in LDL [Mass/Vol] TNP [facility] Comment on above: Test not performed Cholesterol in LDL [Mass/vol ume] in Serum or PlasmaOrdered By: Glenna Quinones on 08-21-2023 Cholesterol in LDL [Mass/Vol] 173 mg/dL 0-100 [facility] Comment on above: LDL ATP III CLASSIFI CATIONLDL less than 100 mg/dL OptimalLDL 100-129 mg/dL Near or above optimalLDL 130-159 mg/dL Borderline highLDL 160-189 mg/dL HighLDL greater than 189 mg/dL Very high Cholesterol in VLDL Calc [Ma ss/Vol]Ordered By: Glenna Quinones on 08-21-2023 Cholesterol in VLDL [Mass/Vol] 91 mg/dL [facility] Comprehensive Metabolic Pane santos 08-21-2023 Albumin [Mass/Vol] 4.1 g/dL Normal 3.5-5.7 [facility] Comment on above: Order Comment: Reaso n for Exam Right upper quadrant abdominal pain Performed By: #### H EPATIC, CBC, KEYLA, PT, LIPID, FE and TIBC, NATHALY, LIPASE #### [place] [address] [place] #### HBSAG, HCV RX PCR, CARSON CHOICE, SMAB, HBSAB, HBCAB, ALPHA PHEN, CERULOP #### [facility] , Albumin/Globulin [Mass ratio] 1.5 {ratio} Normal [facility] Comment on above: Order Comment: Reaso n for Exam Right upper quadrant abdominal pain Performed By: #### H EPATIC, CBC, KEYLA, PT, LIPID, FE and TIBC, NATHALY, LIPASE #### [address] #### HBSAG, HCV RX PCR, CARSON CHOICE, SMAB, HBSAB, HBCAB, ALPHA PHEN, CERULOP #### [facility] , ALP [Catalytic activity/Vol] 84 U/L Normal 34-104 [facility] Comment on above: Order Comment: Reaso n for Exam Right upper quadrant abdominal pain Performed By: #### H EPATIC, CBC, KEYLA, PT, LIPID, FE and TIBC, NATHALY, LIPASE #### [address] #### HBSAG, HCV RX PCR, CARSON CHOICE, SMAB, HBSAB, HBCAB, ALPHA PHEN, CERULOP #### [facility] , ALT [Catalytic activity/Vol] 31 U/L Normal 7-52 [facility] Comment on above: Order Comment: Reaso n for Exam Right upper quadrant abdominal pain Performed By: #### H EPATIC, CBC, KEYLA, PT, LIPID, FE and TIBC, NATHALY, LIPASE #### [place] [address] [place] #### HBSAG, HCV RX PCR, CARSON CHOICE, SMAB, HBSAB, HBCAB, ALPHA PHEN, CERULOP #### [facility] , Anion gap [Moles/Vol] 14.0 mmol/L Normal 6.0-15.[address] [facility] Comment on above: Order Comment: Reaso n for Exam Right upper quadrant abdominal pain Performed By: #### H EPATIC, CBC, KEYLA, PT, LIPID, FE and TIBC, NATHALY, LIPASE #### [address] #### HBSAG, HCV RX PCR, CARSON CHOICE, SMAB, HBSAB, HBCAB, ALPHA PHEN, CERULOP #### [facility] , AST [Catalytic activity/Vol] 21 U/L Normal 13-39 [facility] Comment on above: Order Comment: Reaso n for Exam Right upper quadrant abdominal pain Performed By: #### H EPATIC, CBC, KEYLA, PT, LIPID, FE and TIBC, NATHALY, LIPASE #### [address] #### HBSAG, HCV RX PCR, CARSON CHOICE, SMAB, HBSAB, HBCAB, ALPHA PHEN, CERULOP #### [facility] , Bilirubin [Mass/Vol] 0.5 mg/dL Normal 0.3-1.0 [facility] Comment on above: Order Comment: Reaso n for Exam Right upper quadrant abdominal pain Performed By: #### H EPATIC, CBC, KEYLA, PT, LIPID, FE and TIBC, NATHALY, LIPASE #### [place] [address] [place] #### HBSAG, HCV RX PCR, CARSON CHOICE, SMAB, HBSAB, HBCAB, ALPHA PHEN, CERULOP #### [facility] , Calcium [Mass/Vol] 9.8 mg/dL Normal 8.6-10.3 [facility] Comment on above: Order Comment: Reaso n for Exam Right upper quadrant abdominal pain Performed By: #### H EPATIC, CBC, KEYLA, PT, LIPID, FE and TIBC, NATHALY, LIPASE #### [place] [address] [place] #### HBSAG, HCV RX PCR, CARSON CHOICE, SMAB, HBSAB, HBCAB, ALPHA PHEN, CERULOP #### [facility] , Chloride [Moles/Vol] 102 mmol/L Normal 98-107 [facility] Comment on above: Order Comment: Reaso n for Exam Right upper quadrant abdominal pain Performed By: #### H EPATIC, CBC, KEYLA, PT, LIPID, FE and TIBC, NATHALY, LIPASE #### [address] #### HBSAG, HCV RX PCR, CARSON CHOICE, SMAB, HBSAB, HBCAB, ALPHA PHEN, CERULOP #### [facility] , CO2 [Moles/Vol] 30.1 mmol/L Normal 21.0-31.0 [facility] Comment on above: Order Comment: Reaso n for Exam Right upper quadrant abdominal pain Performed By: #### H EPATIC, CBC, KEYLA, PT, LIPID, FE and TIBC, NATHALY, LIPASE #### [place] [address] [place] #### HBSAG, HCV RX PCR, CARSON CHOICE, SMAB, HBSAB, HBCAB, ALPHA PHEN, CERULOP #### [facility] , Creatinine [Mass/Vol] 0.61 mg/dL Normal 0.60-1.20 [facility] Comment on above: Order Comment: Reaso n for Exam Right upper quadrant abdominal pain Performed By: #### H EPATIC, CBC, KEYLA, PT, LIPID, FE and TIBC, NATHALY, LIPASE #### [place] [address] [place] #### HBSAG, HCV RX PCR, CARSON CHOICE, SMAB, HBSAB, HBCAB, ALPHA PHEN, CERULOP #### [facility] , GFR/1.73 sq M.predicted MDRD (S/P/Bld) [Vol rate/Area] mL/min/{1.73_m2} Normal [facility] Comment on above: Order Comment: Reaso n for Exam Right upper quadrant abdominal pain Performed By: #### H EPATIC, CBC, KEYLA, PT, LIPID, FE and TIBC, NATHALY, LIPASE #### [place] [address] [place] #### HBSAG, HCV RX PCR, CARSON CHOICE, SMAB, HBSAB, HBCAB, ALPHA PHEN, CERULOP #### [facility] , Globulin (S) [Mass/Vol] 2.7 g/dL Normal [facility] Comment on above: Order Comment: Reaso n for Exam Right upper quadrant abdominal pain Performed By: #### H EPATIC, CBC, KEYLA, PT, LIPID, FE and TIBC, NATHALY, LIPASE #### [place] [address] [place] #### HBSAG, HCV RX PCR, CARSON CHOICE, SMAB, HBSAB, HBCAB, ALPHA PHEN, CERULOP #### [facility] , Glucose [Mass/Vol] 54 mg/dL Low 70-100 [facility] Comment on above: Order Comment: Reaso n for Exam Right upper quadrant abdominal pain Result Comment: [place] Glucose Reference Range is dependent on time and content of last meal. Glucose of more than 200 mg/dL in a nonstressed, ambulatory subject supports the diagnosis of Diabetes Mellitus. ADA recommended reference range Performed By: #### H EPATIC, CBC, KEYLA, PT, LIPID, FE and TIBC, NATHALY, LIPASE #### [address] #### HBSAG, HCV RX PCR, CARSON CHOICE, SMAB, HBSAB, HBCAB, ALPHA PHEN, CERULOP #### [facility] , Potassium [Moles/Vol] 4.1 mmol/L Normal 3.5-5.1 [facility] Comment on above: Order Comment: Reaso n for Exam Right upper quadrant abdominal pain Performed By: #### H EPATIC, CBC, KEYLA, PT, LIPID, FE and TIBC, NATHALY, LIPASE #### [place] [address] [place] #### HBSAG, HCV RX PCR, CARSON CHOICE, SMAB, HBSAB, HBCAB, ALPHA PHEN, CERULOP #### [facility] , Protein [Mass/Vol] 6.8 g/dL Normal 6.4-8.9 [facility] Comment on above: Order Comment: Reaso n for Exam Right upper quadrant abdominal pain Performed By: #### H EPATIC, CBC, KEYLA, PT, LIPID, FE and TIBC, NATHALY, LIPASE #### [place] [address] [place] #### HBSAG, HCV RX PCR, CARSON CHOICE, SMAB, HBSAB, HBCAB, ALPHA PHEN, CERULOP #### [facility] , Sodium [Moles/Vol] 142 mmol/L Normal 136-145 [facility] Comment on above: Order Comment: Reaso n for Exam Right upper quadrant abdominal pain Performed By: #### H EPATIC, CBC, KEYLA, PT, LIPID, FE and TIBC, NATHALY, LIPASE #### [address] #### HBSAG, HCV RX PCR, CARSON CHOICE, SMAB, HBSAB, HBCAB, ALPHA PHEN, CERULOP #### [facility] , Urea nitrogen [Mass/Vol] 22 mg/dL Normal 7-25 [facility] Comment on above: Order Comment: Reaso n for Exam Right upper quadrant abdominal pain Performed By: #### H EPATIC, CBC, KEYLA, PT, LIPID, FE and TIBC, NATHALY, LIPASE #### [place] [address] [place] #### HBSAG, HCV RX PCR, CARSON CHOICE, SMAB, HBSAB, HBCAB, ALPHA PHEN, CERULOP #### [facility] , Creatinine [Mass/volume] in Serum or PlasmaOrdered By: Glenna Quinones on 08-21-2023 Creatinine [Mass/Vol] 0.61 mg/dL 0.60-1.20 [facility] Globulin Calc (S) [Mass/Vol] Ordered By: Glenna Quinones on 08-21-2023 Globulin (S) [Mass/Vol] 2.7 g/dL [facility] Glucose [Mass/volume] in Ser um or PlasmaOrdered By: Glenna Quinones on 08-21-2023 Glucose [Mass/Vol] 54 mg/dL 70-100 [facility] Comment on above: ADA recommended refe renyoshi rangeRandom Glucose Reference Range is dependent on time and content of last meal. Glucose of more than 200 mg/dL in a nonstressed, ambulatory subject supports the diagnosis of Diabetes Mellitus. LDL Cholesterol Measuredon 0 08-21-2023 LDL Cholesterol Measured 173 mg/dL High 0-100 [facility] Comment on above: Order [...] LIPID, FE and TIBC, NATHALY, LIPASE #### [facility] [address] [place] [address] [place] #### HBSAG, HCV RX PCR, CARSON CHOICE, SMAB, HBSAB, HBCAB, ALPHA PHEN, CERULOP #### [facility] , Lipid Panelon 08-21-2023 Cholesterol [Mass/Vol] 245 mg/dL High 140-200 [facility] Comment on above: Order Comment: Reaso n for Exam Right upper quadrant abdominal pain Result Comment: Chol less than 200 mg/dl low risk Chol 201-239 mg/dl borderline risk Chol 240 mg/dl and greater high risk Performed By: #### H EPATIC, CBC, KEYLA, PT, LIPID, FE and TIBC, NATHALY, LIPASE #### [facility] [address] [place] [address] [place] #### HBSAG, HCV RX PCR, CARSON CHOICE, SMAB, HBSAB, HBCAB, ALPHA PHEN, CERULOP #### [facility] , Cholesterol in HDL [Mass/Vol] 45 mg/dL Normal 23-92 [facility] Comment on above: Order Comment: Reaso n for Exam Right upper quadrant abdominal pain Result Comment: HDL CHOL ATP-III CLASSIFICATION Cardiovascular Risk HDL > or equal to 60 mg/dL LOW HDL < 40 mg/dL HIGH Performed By: #### H EPATIC, CBC, KEYLA, PT, LIPID, FE and TIBC, NATHALY, LIPASE #### [facility] [address] [place] [address] [place] #### HBSAG, HCV RX PCR, CARSON CHOICE, SMAB, HBSAB, HBCAB, ALPHA PHEN, CERULOP #### [facility] , Cholesterol.total/Chol esterol in HDL [Mass ratio] 5.4 {ratio} Normal <5.0 [facility] Comment on above: Order Comment: Reaso n for Exam Right upper quadrant abdominal pain Performed By: #### H EPATIC, CBC, KEYLA, PT, LIPID, FE and TIBC, NATHALY, LIPASE #### [place] [address] [place] #### HBSAG, HCV RX PCR, CARSON CHOICE, SMAB, HBSAB, HBCAB, ALPHA PHEN, CERULOP #### [facility] , LDL Cholesterol,Calculated Not performed Normal 0-100 [facility] Comment on above: Order Comment: Reaso n for Exam Right upper quadrant abdominal pain Performed By: #### H EPATIC, CBC, KEYLA, PT, LIPID, FE and TIBC, NATHALY, LIPASE #### [place] [address] [place] #### HBSAG, HCV RX PCR, CARSON CHOICE, SMAB, HBSAB, HBCAB, ALPHA PHEN, CERULOP #### [facility] , Triglyceride w/Reflex 459 mg/dL High 0-149 [facility] Comment on above: Order [...] LIPID, FE and TIBC, NATHALY, LIPASE #### [facility] [address] [place] [address] [place] #### HBSAG, HCV RX PCR, CARSON CHOICE, SMAB, HBSAB, HBCAB, ALPHA PHEN, CERULOP #### [facility] , VLDL CHOLESTEROL 91 mg/dL Normal [facility] Comment on above: Order Comment: Reaso n for Exam Right upper quadrant abdominal pain Performed By: #### H EPATIC, CBC, KEYLA, PT, LIPID, FE and TIBC, NATHALY, LIPASE #### [facility] [address] [place] [address] [place] #### HBSAG, HCV RX PCR, CARSON CHOICE, SMAB, HBSAB, HBCAB, ALPHA PHEN, CERULOP #### [facility] , No Panel InformationOrdered By: Glenna Quinones on 08-21-2023 Estimated GFR (CKD-EPI) > 60.0 mL/Min [facility] Creatinine Clearance (Chem N/A [facility] No Panel Informationon 08-20 Bedside Glucose 129 [facility] Potassium [Moles/volume] in Serum or PlasmaOrdered By: Glenna Quinones on 08-21-2023 Potassium [Moles/Vol] 4.1 mmol/L 3.5-5.1 [facility] Protein [Mass/volume] in Ser um or PlasmaOrdered By: Glenna Quinones on 08-21-2023 Protein [Mass/Vol] 6.8 g/dL 6.4-8.9 [facility] Serum or plasma albumin/glob ulin mass ratioOrdered By: Glenna Quinones on 08-21-2023 Albumin/Globulin [Mass ratio] 1.5 {ratio} [facility] Serum or plasma anion gap de terminationOrdered By: Glenna Quinones on 08-21-2023 Anion gap [Moles/Vol] 14.0 mmol/L 6.0-15.0 [facility] Serum or plasma high density lipoprotein (HDL) cholesterol measurementOrdered By: Glenna Quinones on 08-21-2023 Cholesterol in HDL [Mass/Vol] 45 mg/dL 23-92 [facility] Comment on above: HDL CHOL ATP-III CLA SSIFICATION Cardiovascular RiskHDL > or equal to 60 mg/dL LOWHDL < 40 mg/dL HIGH Serum or plasma total choles terol/high density lipoprotein (HDL) cholesterol mass ratOrdered By: Glenna Quinones on 08-21-2023 Cholesterol.total/Chol esterol in HDL [Mass ratio] 5.4 {ratio} <5.0 [facility] Sodium [Moles/volume] in Ser um or PlasmaOrdered By: Glenna Quinones on 08-21-2023 Sodium [Moles/Vol] 142 mmol/L 136-145 [facility] Thyroid Stim Hormone w/Rflxo n 08-21-2023 Thyroid Stim Hormone w/Rflx 1.85 u[iU]/mL Normal 0.45-5.33 [facility] Comment on above: Order Comment: Reaso n for Exam Right upper quadrant abdominal pain Result Comment: PERF ORMED BY: [place] [address] PATHOLOGIST VOCATIONAL CASE MANAGER HILARIA REES M.D. Performed By: #### H EPATIC, CBC, KEYLA, PT, LIPID, FE and TIBC, NATHALY, LIPASE #### [place] [facility] [address] [place] [address] #### HBSAG, HCV RX PCR, CARSON CHOICE, SMAB, HBSAB, HBCAB, ALPHA PHEN, CERULOP #### [facility] , Thyrotropin [Units/volume] i n Serum or PlasmaOrdered By: Glenna Quinones on 08-21-2023 TSH Qn 1.85 m[IU]/L 0.45-5.33 [facility] Triglyceride [Mass/volume] i n Serum or PlasmaOrdered By: Glenna Quinones on 08-21-2023 Triglyceride [Mass/Vol] 459 mg/dL 0-149 [facility] Comment on above: If the triglyceride result [...] 08-21-2023 Urea nitrogen [Mass/Vol] 22 mg/dL 7 [facility] Vitamin B12on 08-21-2023 Cobalamin (Vitamin B12) [Mass/Vol] 507 pg/mL Normal 180-914 [facility] Comment on above: Order Comment: Reaso n for Exam Right upper quadrant abdominal pain Performed By: #### H EPATIC, CBC, KEYLA, PT, LIPID, FE and TIBC, NATHALY, LIPASE #### [facility] [address] [place] [address] #### HBSAG, HCV RX PCR, CARSON CHOICE, SMAB, HBSAB, HBCAB, ALPHA PHEN, CERULOP #### [facility] , Vitamin B12 ser/plasOrdered By: Glenna Quinones on 08-21-2023 Cobalamin (Vitamin B12) [Mass/Vol] 507 pg/mL 180-914 [facility] - Hematology and Cell countson 05-28-2023 HbA1c (Bld) [Mass fraction] 10.1 % [facility] A1C HEMOGLOBINon 02-19-2023 HbA1c (Bld) [Mass fraction] 8.6 % New [facility] Other Glucose - FINGER STICKon Glucose [Mass/Vol] 160 mg/dL [facility] [employer] Other HbA1c (Bld) [Mass fraction]o n 02-19-2023 A1C HEMOGLOBIN [facility] [employer] Other Pancreatic Elastase, Stoolon 12-06-2022 Pancreatic Elastase, Stool 305 Normal >200 [facility] Comment on above: Order Comment: Reaso n for Exam 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 disease) Result Comment: Resu lt Units: ug Elast./g Severe Pancreatic Insufficiency: <100 Moderate Pancreatic Insufficiency: 100 - 200 Normal: >200 Performed at: - [facility] [id number] Fishing Manager: Karli Lux MD, Phone: [phone] PERFORMED BY: [place] [address] PATHOLOGIST VOCATIONAL CASE MANAGER HILARIA REES M.D. Performed By: #### E LASTASE STOOL #### [facility] , CARSON with Reflexon 12-04-2022 CARSON with Reflex Negative Normal Negative [facility] Comment on above: Order Comment: Reaso n for Exam Right upper quadrant abdominal pain Result Comment: Perf ormed at: CB - [facility] [address] [id number] Fishing Manager: Iftikhar Romero PhD, Phone: [phone] Performed By: #### H EPATIC, CBC, KEYLA, PT, LIPID, FE and TIBC, NATHALY, LIPASE #### [place] [address] [place] #### HBSAG, HCV RX PCR, CARSON CHOICE, SMAB, HBSAB, HBCAB, ALPHA PHEN, CERULOP #### [facility] , Actin smooth muscle IgG Ab [ Units/volume] in SerumOrdered By: Mark Gramajo on 12-04-2022 Actin smooth muscle IgG Qn (S) 6 Units 0-19 [facility] Comment on above: Negative 0 - 19 Weak positive 20 - 30 Moderate to strong positive >30 Actin Antibodies are found in 52-85% of patients with autoimmune hepatitis or chronic active hepatitis and in 22% of patients with primary biliary cirrhosis. Alanine aminotransferase [En zymatic activity/volume] in Serum or PlasmaOrdered By: Mark Gramajo on 12-04-2022 ALT [Catalytic activity/Vol] 15 U/L 7-52 [facility] Albumin [Mass/volume] in Ser um or Plasma by Bromocresol green (BCG) dye binding methoOrdered By: Mark Gramajo on 12-04-2022 Albumin BCG dye [Mass/Vol] 3.9 g/dL 3.5-5.7 [facility] Alkaline phosphatase [Enzyma tic activity/volume] in Serum or PlasmaOrdered By: Mark Gramajo on 12-04-2022 ALP [Catalytic activity/Vol] 83 U/L 34-104 [facility] Zxibc-1-Mrwmiwehosd Phenotyp davis 12-04-2022 Alpha 1 Anti-Trypsin 137 mg/dL Normal 101-187 [facility] Comment on above: Order Comment: Reaso n for Exam Right upper quadrant abdominal pain Performed By: #### H EPATIC, CBC, KEYLA, PT, LIPID, FE and TIBC, NATHALY, LIPASE #### [place] [address] [place] #### HBSAG, HCV RX PCR, CARSON [...] Ranges used to confirm phenotype. Performed at: [facility] [address] [id number] Fishing Manager: Iftikhar Romero PhD, Phone: [phone] Performed at: [facility] [address] [id number] Fishing Manager: Karli Lux MD, Phone: [phone] Performed By: #### H EPATIC, CBC, KEYLA, PT, LIPID, FE and TIBC, NATHALY, LIPASE #### [place] [address] [place] #### HBSAG, HCV RX PCR, CARSON CHOICE, SMAB, HBSAB, HBCAB, ALPHA PHEN, CERULOP #### [facility] , Amylaseon 08-14-2023 Amylase [Catalytic activity/Vol] 33 U/L Normal 29-103 [facility] Comment on above: Order Comment: Reaso n for Exam Right upper quadrant abdominal pain Performed By: #### H EPATIC, CBC, KEYLA, PT, LIPID, FE and TIBC, NATHALY, LIPASE #### [facility] [address] #### HBSAG, HCV RX PCR, CARSON CHOICE, SMAB, HBSAB, HBCAB, ALPHA PHEN, CERULOP #### [facility] , Amylase [Enzymatic activity/ volume] in Serum or PlasmaOrdered By: Mark Gramajo on 12-04-2022 Amylase [Catalytic activity/Vol] 33 U/L 29-103 [facility] Aspartate aminotransferase [ Enzymatic activity/volume] in Serum or PlasmaOrdered By: Mark Gramajo on 12-04-2022 AST [Catalytic activity/Vol] 10 U/L 13-39 [facility] Basophils Auto (Bld) [#/Vol] Ordered By: Mark Gramajo on 12-04-2022 Basophils (Bld) [#/Vol] 0.1 10*3/uL 0.0-0.2 [facility] Basophils/100 WBC Auto (Bld) Ordered By: Mark Nemark on 12-04-2022 Basophils/100 WBC (Bld) 0.7 % . [facility] Bilirubin.direct [Mass/volum e] in Serum or PlasmaOrdered By: Mark Gramajo on 12-04-2022 Bilirubin.direct [Mass/Vol] 0.10 mg/dL 0.03-0.18 [facility] Bilirubin.total [Mass/volume ] in Serum or PlasmaOrdered By: Mark Gramajo on 12-04-2022 Bilirubin [Mass/Vol] 0.4 mg/dL 0.3-1.0 [facility] Ceruloplasminon 12-04-2022 Ceruloplasmin 33.7 mg/dL Normal 19.0-39.0 [facility] Comment on above: Order Comment: Reaso n for Exam Right upper quadrant abdominal pain Result Comment: Perf ormed at: - [facility] [address] [id number] Fishing Manager: Iftikhar Romero PhD, Phone: [phone] PERFORMED BY: [place] [address] PATHOLOGIST VOCATIONAL CASE MANAGER HILARIA REES M.D. Performed By: #### H EPATIC, CBC, KEYLA, PT, LIPID, FE and TIBC, NATHALY, LIPASE #### [address] #### HBSAG, HCV RX PCR, CARSON CHOICE, SMAB, HBSAB, HBCAB, ALPHA PHEN, CERULOP #### [facility] , Cholesterol [Mass/volume] in Serum or PlasmaOrdered By: Mark Gramajo on 12-04-2022 Cholesterol [Mass/Vol] 219 mg/dL 140-200 [facility] Comment on above: Chol less than 200 m g/dl low riskChol 201-239 mg/dl borderline riskChol 240 mg/dl and greater high risk Cholesterol in LDL Calc [Mas s/Vol]Ordered By: Mark Gramajo on 12-04-2022 Cholesterol in LDL [Mass/Vol] 131 mg/dL 0-100 [facility] Comment on above: LDL ATP III CLASSIFI CATIONLDL less than 100 mg/dL OptimalLDL 100-129 mg/dL Near or above optimalLDL 130-159 mg/dL Borderline highLDL 160-189 mg/dL HighLDL greater than 189 mg/dL Very high Cholesterol in VLDL Calc [Ma ss/Vol]Ordered By: Mark Gramajo on 12-04-2022 Cholesterol in VLDL [Mass/Vol] 37 mg/dL [facility] Complete Blood Count Auto Di ffon 12-04-2022 Basophils (Bld) [#/Vol] 0.1 10*3/uL Normal 0.0-0.2 [facility] Comment on above: Order Comment: Reaso n for Exam Right upper quadrant abdominal pain Result Comment: PERF ORMED BY: [place] [address] PATHOLOGIST VOCATIONAL CASE MANAGER HILARIA REES M.D. Performed By: #### H EPATIC, CBC, KEYLA, PT, LIPID, FE and TIBC, NATHALY, LIPASE #### [address] #### HBSAG, HCV RX PCR, CARSON CHOICE, SMAB, HBSAB, HBCAB, ALPHA PHEN, CERULOP #### [facility] , Basophils/100 WBC (Bld) 0.7 % Normal . [facility] Comment on above: Order Comment: Reaso n for Exam Right upper quadrant abdominal pain Performed By: #### H EPATIC, CBC, KEYLA, PT, LIPID, FE and TIBC, NATHALY, LIPASE #### [address] #### HBSAG, HCV RX PCR, CARSON CHOICE, SMAB, HBSAB, HBCAB, ALPHA PHEN, CERULOP #### [facility] , Eosinophils (Bld) [#/Vol] 0.3 10*3/uL Normal 0.0-0.45 [facility] Comment on above: Order Comment: Reaso n for Exam Right upper quadrant abdominal pain Performed By: #### H EPATIC, CBC, KEYLA, PT, LIPID, FE and TIBC, NATHALY, LIPASE #### [address] #### HBSAG, HCV RX PCR, CARSON CHOICE, SMAB, HBSAB, HBCAB, ALPHA PHEN, CERULOP #### [facility] , Eosinophils/100 WBC (Bld) 2.2 % Normal . [facility] Comment on above: Order Comment: Reaso n for Exam Right upper quadrant abdominal pain Performed By: #### H EPATIC, CBC, KEYLA, PT, LIPID, FE and TIBC, NATHALY, LIPASE #### [place] [address] [place] #### HBSAG, HCV RX PCR, CARSON CHOICE, SMAB, HBSAB, HBCAB, ALPHA PHEN, CERULOP #### [facility] , Erythrocyte distribution width (RBC) [Ratio] 13.7 % Normal 11.9-15.3 [facility] Comment on above: Order Comment: Reaso n for Exam Right upper quadrant abdominal pain Performed By: #### H EPATIC, CBC, KEYLA, PT, LIPID, FE and TIBC, NATHALY, LIPASE #### [address] #### HBSAG, HCV RX PCR, CARSON CHOICE, SMAB, HBSAB, HBCAB, ALPHA PHEN, CERULOP #### [facility] , Hematocrit (Bld) [Volume fraction] 41.4 % Normal 34.0-46.4 [facility] Comment on above: Order Comment: Reaso n for Exam Right upper quadrant abdominal pain Performed By: #### H EPATIC, CBC, KEYLA, PT, LIPID, FE and TIBC, NATHALY, LIPASE #### [address] #### HBSAG, HCV RX PCR, CARSON CHOICE, SMAB, HBSAB, HBCAB, ALPHA PHEN, CERULOP #### [facility] , Hemoglobin (Bld) [Mass/Vol] 13.7 g/dL Normal 11.8-15.4 [facility] Comment on above: Order Comment: Reaso n for Exam Right upper quadrant abdominal pain Performed By: #### H EPATIC, CBC, KEYLA, PT, LIPID, FE and TIBC, NATHALY, LIPASE #### [address] #### HBSAG, HCV RX PCR, CARSON CHOICE, SMAB, HBSAB, HBCAB, ALPHA PHEN, CERULOP #### [facility] , Lymphocytes (Bld) [#/Vol] 2.8 10*3/uL Normal 1.00-4.8 [facility] Comment on above: Order Comment: Reaso n for Exam Right upper quadrant abdominal pain Performed By: #### H EPATIC, CBC, KEYLA, PT, LIPID, FE and TIBC, NATHALY, LIPASE #### [place] [address] [place] #### HBSAG, HCV RX PCR, CARSON CHOICE, SMAB, HBSAB, HBCAB, ALPHA PHEN, CERULOP #### [facility] , Lymphocytes/100 WBC (Bld) 22.5 % Normal . [facility] Comment on above: Order Comment: Reaso n for Exam Right upper quadrant abdominal pain Performed By: #### H EPATIC, CBC, KEYLA, PT, LIPID, FE and TIBC, NATHALY, LIPASE #### [address] #### HBSAG, HCV RX PCR, CARSON CHOICE, SMAB, HBSAB, HBCAB, ALPHA PHEN, CERULOP #### [facility] , MCH (RBC) [Entitic mass] 28.7 pg Normal 24.7-34.3 [facility] Comment on above: Order Comment: Reaso n for Exam Right upper quadrant abdominal pain Performed By: #### H EPATIC, CBC, KEYLA, PT, LIPID, FE and TIBC, NATHALY, LIPASE #### [address] #### HBSAG, HCV RX PCR, CARSON CHOICE, SMAB, HBSAB, HBCAB, ALPHA PHEN, CERULOP #### [facility] , MCV (RBC) [Entitic vol] 86.4 fL Normal 80-100 [facility] Comment on above: Order Comment: Reaso n for Exam Right upper quadrant abdominal pain Performed By: #### H EPATIC, CBC, KEYLA, PT, LIPID, FE and TIBC, NATHALY, LIPASE #### [place] [address] [place] #### HBSAG, HCV RX PCR, CARSON CHOICE, SMAB, HBSAB, HBCAB, ALPHA PHEN, CERULOP #### [facility] , Mean Corpuscular HGB Conc 33.2 g/dL Normal 32.0-35.0 [facility] Comment on above: Order Comment: Reaso n for Exam Right upper quadrant abdominal pain Performed By: #### H EPATIC, CBC, KEYLA, PT, LIPID, FE and TIBC, NATHALY, LIPASE #### [place] [address] [place] #### HBSAG, HCV RX PCR, CARSON CHOICE, SMAB, HBSAB, HBCAB, ALPHA PHEN, CERULOP #### [facility] , Monocytes (Bld) [#/Vol] 0.8 10*3/uL Normal 0.0-0.8 [facility] Comment on above: Order Comment: Reaso n for Exam Right upper quadrant abdominal pain Performed By: #### H EPATIC, CBC, KEYLA, PT, LIPID, FE and TIBC, NATHALY, LIPASE #### [address] #### HBSAG, HCV RX PCR, CARSON CHOICE, SMAB, HBSAB, HBCAB, ALPHA PHEN, CERULOP #### [facility] , Monocytes/100 WBC (Bld) 6.7 % Normal . [facility] Comment on above: Order Comment: Reaso n for Exam Right upper quadrant abdominal pain Performed By: #### H EPATIC, CBC, KEYLA, PT, LIPID, FE and TIBC, NATHALY, LIPASE #### [address] #### HBSAG, HCV RX PCR, CARSON CHOICE, SMAB, HBSAB, HBCAB, ALPHA PHEN, CERULOP #### [facility] , Neutrophils (Bld) [#/Vol] 8.4 10*3/uL High 1.8-7.7 [facility] Comment on above: Order Comment: Reaso n for Exam Right upper quadrant abdominal pain Performed By: #### H EPATIC, CBC, KEYLA, PT, LIPID, FE and TIBC, NATHALY, LIPASE #### [place] [address] [place] #### HBSAG, HCV RX PCR, CARSON CHOICE, SMAB, HBSAB, HBCAB, ALPHA PHEN, CERULOP #### [facility] , Neutrophils/100 WBC (Bld) 67.9 % Normal . [facility] Comment on above: Order Comment: Reaso n for Exam Right upper quadrant abdominal pain Performed By: #### H EPATIC, CBC, KEYLA, PT, LIPID, FE and TIBC, NATHALY, LIPASE #### [place] [id number] [place] #### HBSAG, HCV RX PCR, CARSON CHOICE, SMAB, HBSAB, HBCAB, ALPHA PHEN, CERULOP #### [facility] , NRBC% 0.0 /100{WBC} Normal 0-0.5 [facility] Comment on above: Order Comment: Reaso n for Exam Right upper quadrant abdominal pain Performed By: #### H EPATIC, CBC, KEYLA, PT, LIPID, FE and TIBC, NATHALY, LIPASE #### [address] #### HBSAG, HCV RX PCR, CARSON CHOICE, SMAB, HBSAB, HBCAB, ALPHA PHEN, CERULOP #### [facility] , Platelet mean volume (Bld) [Entitic vol] 7.7 fL Normal 6.3-10.7 [facility] Comment on above: Order Comment: Reaso n for Exam Right upper quadrant abdominal pain Performed By: #### H EPATIC, CBC, KEYLA, PT, LIPID, FE and TIBC, NATHALY, LIPASE #### [address] #### HBSAG, HCV RX PCR, CARSON CHOICE, SMAB, HBSAB, HBCAB, ALPHA PHEN, CERULOP #### [facility] , Platelets (Bld) [#/Vol] 303 10*3/uL Normal 150-450 [facility] Comment on above: Order Comment: Reaso n for Exam Right upper quadrant abdominal pain Performed By: #### H EPATIC, CBC, KEYLA, PT, LIPID, FE and TIBC, NATHALY, LIPASE #### [place] [address] [place] #### HBSAG, HCV RX PCR, CARSON CHOICE, SMAB, HBSAB, HBCAB, ALPHA PHEN, CERULOP #### [facility] , RBC (Bld) [#/Vol] 4.79 10*6/uL Normal 3.60-5.00 [facility] Comment on above: Order Comment: Reaso n for Exam Right upper quadrant abdominal pain Performed By: #### H EPATIC, CBC, KEYLA, PT, LIPID, FE and TIBC, NATHALY, LIPASE #### [facility] [address] [place] [address] [place] #### HBSAG, HCV RX PCR, CARSON CHOICE, SMAB, HBSAB, HBCAB, ALPHA PHEN, CERULOP #### [facility] , WBC (Bld) [#/Vol] 12.3 10*3/uL High 3.8-11.6 [facility] Comment on above: Order Comment: Reaso n for Exam Right upper quadrant abdominal pain Performed By: #### H EPATIC, CBC, KEYLA, PT, LIPID, FE and TIBC, NATHALY, LIPASE #### [facility] [address] [place] [address] [place] #### HBSAG, HCV RX PCR, CARSON CHOICE, SMAB, HBSAB, HBCAB, ALPHA PHEN, CERULOP #### [facility] , Eosinophils Auto (Bld) [#/Vo l]Ordered By: Mark Gramajo on 12-04-2022 Eosinophils (Bld) [#/Vol] 0.3 10*3/uL 0.0-0.45 [facility] Eosinophils/100 WBC Auto (Bl d)Ordered By: Mark Gramajo on 12-04-2022 Eosinophils/100 WBC (Bld) 2.2 % . [facility] Erythrocyte distribution wid th Auto (RBC) [Ratio]Ordered By: Mark Graamjo on 12-04-2022 Erythrocyte distribution width (RBC) [Ratio] 13.7 % 11.9-15.3 [facility] Ferritinon 12-04-2022 Ferritin [Mass/Vol] 56.2 ng/mL Normal 11.0-306.8 [facility] Comment on above: Order Comment: Reaso n for Exam Right upper quadrant abdominal pain Performed By: #### H EPATIC, CBC, KEYLA, PT, LIPID, FE and TIBC, NATHALY, LIPASE #### [facility] [address] [place] [address] [place] #### HBSAG, HCV RX PCR, CARSON CHOICE, SMAB, HBSAB, HBCAB, ALPHA PHEN, CERULOP #### [facility] , Ferritin [Mass/volume] in Se rum or PlasmaOrdered By: Mark Gramajo on 12-04-2022 Ferritin [Mass/Vol] 56.2 ng/mL 11.0-306.8 [facility] Globulin Calc (S) [Mass/Vol] Ordered By: Mark Gramajo on 12-04-2022 Globulin (S) [Mass/Vol] 3.1 g/dL [facility] Hematocrit Auto (Bld) [Volum e fraction]Ordered By: Mark Gramajo on 12-04-2022 Hematocrit (Bld) [Volume fraction] 41.4 % 34.0-46.4 [facility] Hemoglobin [Mass/volume] in BloodOrdered By: Mark Gramajo on 12-04-2022 Hemoglobin (Bld) [Mass/Vol] 13.7 g/dL 11.8-15.4 [facility] Hep C Ab wRfx to Qnt PCRon 0 12-04-2022 Hepatitis C Quantitation Normal [facility] Comment on above: Order Comment: Reaso n for Exam Right upper quadrant abdominal pain Result Comment: HCV Not Detected Performed By: #### H EPATIC, CBC, KEYLA, PT, LIPID, FE and TIBC, NATHALY, LIPASE #### [facility] [address] [place] [address] #### HBSAG, HCV RX PCR, CARSON CHOICE, SMAB, HBSAB, HBCAB, ALPHA PHEN, CERULOP #### [facility] , Hepatitis C Virus Antibody Reactive Critically abnormal Non Reactive [facility] Comment on above: Order Comment: Reaso n for Exam Right upper quadrant abdominal pain Performed By: #### H EPATIC, CBC, KEYLA, PT, LIPID, FE and TIBC, NATHALY, LIPASE #### [facility] [address] [place] [address] [place] #### HBSAG, HCV RX PCR, CARSON [...] testing after one month. Performed at: - [address] [id number] Fishing Manager: Iftikhar Romero PhD, Phone: [phone] Performed at: - [facility] [id number] Fishing Manager: Karli Lux MD, Phone: [phone] Performed By: #### H EPATIC, CBC, KEYLA, PT, LIPID, FE and TIBC, NATHALY, LIPASE #### [address] #### HBSAG, HCV RX PCR, CARSON CHOICE, SMAB, HBSAB, HBCAB, ALPHA PHEN, CERULOP #### [facility] , Test Information: Normal . [facility] Comment on above: Order Comment: Reaso n for Exam Right upper quadrant abdominal pain Result Comment: The quantitative range of this assay is 15 IU/mL to 100 million IU/mL. Performed By: #### H EPATIC, CBC, KEYLA, PT, LIPID, FE and TIBC, NATHALY, LIPASE #### [address] #### HBSAG, HCV RX PCR, CARSON CHOICE, SMAB, HBSAB, HBCAB, ALPHA PHEN, CERULOP #### [facility] , Hepatic Panelon 12-04-2022 Albumin [Mass/Vol] 3.9 g/dL Normal 3.5-5.7 [facility] Comment on above: Order Comment: Reaso n for Exam Right upper quadrant abdominal pain Performed By: #### H EPATIC, CBC, KEYLA, PT, LIPID, FE and TIBC, NATHALY, LIPASE #### [place] [address] [place] #### HBSAG, HCV RX PCR, CARSON CHOICE, SMAB, HBSAB, HBCAB, ALPHA PHEN, CERULOP #### [facility] , Albumin/Globulin [Mass ratio] 1.3 {ratio} Normal [facility] Comment on above: Order Comment: Reaso n for Exam Right upper quadrant abdominal pain Performed By: #### H EPATIC, CBC, KEYLA, PT, LIPID, FE and TIBC, NATHALY, LIPASE #### [address] #### HBSAG, HCV RX PCR, CARSON CHOICE, SMAB, HBSAB, HBCAB, ALPHA PHEN, CERULOP #### [facility] , ALP [Catalytic activity/Vol] 83 U/L Normal 34-104 [facility] Comment on above: Order Comment: Reaso n for Exam Right upper quadrant abdominal pain Performed By: #### H EPATIC, CBC, KEYLA, PT, LIPID, FE and TIBC, NATHALY, LIPASE #### [address] #### HBSAG, HCV RX PCR, CARSON CHOICE, SMAB, HBSAB, HBCAB, ALPHA PHEN, CERULOP #### [facility] , ALT [Catalytic activity/Vol] 15 U/L Normal 7-52 [facility] Comment on above: Order Comment: Reaso n for Exam Right upper quadrant abdominal pain Performed By: #### H EPATIC, CBC, KEYLA, PT, LIPID, FE and TIBC, NATHALY, LIPASE #### [place] [address] [place] #### HBSAG, HCV RX PCR, CARSON CHOICE, SMAB, HBSAB, HBCAB, ALPHA PHEN, CERULOP #### [facility] , AST [Catalytic activity/Vol] 10 U/L Low 13-39 [facility] Comment on above: Order Comment: Reaso n for Exam Right upper quadrant abdominal pain Performed By: #### H EPATIC, CBC, KEYLA, PT, LIPID, FE and TIBC, NATHALY, LIPASE #### [place] [address] [place] #### HBSAG, HCV RX PCR, CARSON CHOICE, SMAB, HBSAB, HBCAB, ALPHA PHEN, CERULOP #### [facility] , Bilirubin [Mass/Vol] 0.4 mg/dL Normal 0.3-1.0 [facility] Comment on above: Order Comment: Reaso n for Exam Right upper quadrant abdominal pain Performed By: #### H EPATIC, CBC, KEYLA, PT, LIPID, FE and TIBC, NATHALY, LIPASE #### [address] #### HBSAG, HCV RX PCR, CARSON CHOICE, SMAB, HBSAB, HBCAB, ALPHA PHEN, CERULOP #### [facility] , Bilirubin,Indirect 0.3 mg/dL Normal [facility] Comment on above: Order Comment: Reaso n for Exam Right upper quadrant abdominal pain Performed By: #### H EPATIC, CBC, KEYLA, PT, LIPID, FE and TIBC, NATHALY, LIPASE #### [address] #### HBSAG, HCV RX PCR, CARSON CHOICE, SMAB, HBSAB, HBCAB, ALPHA PHEN, CERULOP #### [facility] , Bilirubin.indirect [Mass/Vol] 0.10 mg/dL Normal 0.03-0.18 [facility] Comment on above: Order Comment: Reaso n for Exam Right upper quadrant abdominal pain Performed By: #### H EPATIC, CBC, KEYLA, PT, LIPID, FE and TIBC, NATHALY, LIPASE #### [address] #### HBSAG, HCV RX PCR, CARSON CHOICE, SMAB, HBSAB, HBCAB, ALPHA PHEN, CERULOP #### [facility] , Globulin (S) [Mass/Vol] 3.1 g/dL Normal [facility] Comment on above: Order Comment: Reaso n for Exam Right upper quadrant abdominal pain Performed By: #### H EPATIC, CBC, KEYLA, PT, LIPID, FE and TIBC, NATHALY, LIPASE #### [place] [address] [place] #### HBSAG, HCV RX PCR, CARSON CHOICE, SMAB, HBSAB, HBCAB, ALPHA PHEN, CERULOP #### [facility] , Protein [Mass/Vol] 7.0 g/dL Normal 6.4-8.9 [facility] Comment on above: Order Comment: Reaso n for Exam Right upper quadrant abdominal pain Performed By: #### H EPATIC, CBC, KEYLA, PT, LIPID, FE and TIBC, NATHALY, LIPASE #### [facility] [address] [place] [address] #### HBSAG, HCV RX PCR, CARSON CHOICE, SMAB, HBSAB, HBCAB, ALPHA PHEN, CERULOP #### [facility] , Hepatitis B Core Antibodyon 12-04-2022 Hepatitis B Core Antibody Negative Normal Negative [facility] Comment on above: Order Comment: Reaso n for Exam Right upper quadrant abdominal pain Result Comment: Perf ormed at: [facility] [address] [id number] Fishing Manager: Iftikhar Romero PhD, Phone: [phone] Performed By: #### H EPATIC, CBC, KEYLA, PT, LIPID, FE and TIBC, NATHALY, LIPASE #### [address] #### HBSAG, HCV RX PCR, CARSON CHOICE, SMAB, HBSAB, HBCAB, ALPHA PHEN, CERULOP #### [facility] , Hepatitis B Surface Antibody on 12-04-2022 Hepatitis B Surface Antibody Non-Reactive Normal . [facility] Comment on above: Order Comment: Reaso n for Exam Right upper quadrant abdominal pain Result Comment: Non Reactive: Inconsistent with immunity, less than 10 mIU/mL Reactive: Consistent with immunity, greater than 9.9 mIU/mL Performed By: #### H EPATIC, CBC, KEYLA, PT, LIPID, FE and TIBC, NATHALY, LIPASE #### [facility] [address] [place] [address] #### HBSAG, HCV RX PCR, CARSON CHOICE, SMAB, HBSAB, HBCAB, ALPHA PHEN, CERULOP #### [facility] , Hepatitis B Surface Antigeno n 12-04-2022 HBsAg Screen Negative Normal Negative [facility] Comment on above: Order Comment: Reaso n for Exam Right upper quadrant abdominal pain Result Comment: PERF ORMED BY: [place] [address] PATHOLOGIST VOCATIONAL CASE MANAGER HILARIA REES M.D. Performed By: #### H EPATIC, CBC, KEYLA, PT, LIPID, FE and TIBC, NATHALY, LIPASE #### [facility] [address] [place] [address] #### HBSAG, HCV RX PCR, CARSON CHOICE, SMAB, HBSAB, HBCAB, ALPHA PHEN, CERULOP #### [facility] , Hepatitis B virus surface Ag [Presence] in Serum or Plasma by ImmunoassayOrdered By: Mark Gramajo on 12-04-2022 HBV surface Ag IA Ql Negative Negative [facility] INR in Platelet poor plasma by Coagulation assayOrdered By: Mark Gramajo on 12-04-2022 INR Coag (PPP) [Relative time] 1.0 {INR} [facility] Comment on above: INR Therapeutic Rang e [...] on 12-04-2022 Iron [Mass/Vol] 51 ug/dL 50-212 [facility] Iron and TIBC Profileon 11-21 % Iron Saturation 14.0 % Low 20-[address] [facility] Comment on above: Order Comment: Reaso n for Exam Right upper quadrant abdominal pain Performed By: #### H EPATIC, CBC, KEYLA, PT, LIPID, FE and TIBC, NATHALY, LIPASE #### [facility] [address] [place] [address] [place] #### HBSAG, HCV RX PCR, CARSON CHOICE, SMAB, HBSAB, HBCAB, ALPHA PHEN, CERULOP #### [facility] , Iron [Mass/Vol] 51 ug/dL Normal 50-212 [facility] Comment on above: Order Comment: Reaso n for Exam Right upper quadrant abdominal pain Performed By: #### H EPATIC, CBC, KEYLA, PT, LIPID, FE and TIBC, NATHALY, LIPASE #### [facility] [address] [place] [address] [place] #### HBSAG, HCV RX PCR, CARSON CHOICE, SMAB, HBSAB, HBCAB, ALPHA PHEN, CERULOP #### [facility] , Total Iron Binding Capacity 364 ug/dL Normal 255-450 [facility] Comment on above: Order Comment: Reaso n for Exam Right upper quadrant abdominal pain Performed By: #### H EPATIC, CBC, KEYLA, PT, LIPID, FE and TIBC, NATAHLY, LIPASE #### [address] #### HBSAG, HCV RX PCR, CARSON CHOICE, SMAB, HBSAB, HBCAB, ALPHA PHEN, CERULOP #### [facility] , Transferrin [Mass/Vol] 260 mg/dL Normal 203-[address] [facility] Comment on above: Order Comment: Reaso n for Exam Right upper quadrant abdominal pain Performed By: #### H EPATIC, CBC, KEYLA, PT, LIPID, FE and TIBC, NATHALY, LIPASE #### [place] [address] [place] #### HBSAG, HCV RX PCR, CARSON CHOICE, SMAB, HBSAB, HBCAB, ALPHA PHEN, CERULOP #### [facility] , Iron binding capacity [Mass/ volume] in Serum or PlasmaOrdered By: Mark Gramajo on 12-04-2022 Iron binding capacity [Mass/Vol] 364 ug/dL 255-450 [facility] Iron saturation [Mass Fracti on] in Serum or PlasmaOrdered By: Mark Gramajo on 12-04-2022 Iron saturation [Mass fraction] 14.0 % 20-50 [facility] Laboratory - CoagulationOrde red By: Mark Gramajo on 12-04-2022 PT Coag (PPP) [Time] 11.3 s 9.0-12.9 [facility] Leukocytes [#/volume] correc tu for nucleated erythrocytes in Blood by Automated counOrdered By: Mark Gramajo on 12-04-2022 WBC corrected for nucl RBC Auto (Bld) [#/Vol] 12.3 10*3/uL 3.8-11.6 [facility] Lipaseon 12-04-2022 Lipase [Catalytic activity/Vol] 18.0 U/L Normal 11.0-82.0 [facility] Comment on above: Order Comment: Reaso n for Exam Right upper quadrant abdominal pain Performed By: #### H EPATIC, CBC, KEYLA, PT, LIPID, FE and TIBC, NATHALY, LIPASE #### [facility] [address] [place] [address] [place] #### HBSAG, HCV RX PCR, CARSON CHOICE, SMAB, HBSAB, HBCAB, ALPHA PHEN, CERULOP #### [facility] , Lipase [Enzymatic activity/v olume] in Serum or PlasmaOrdered By: Mark Gramajo on 12-04-2022 Lipase [Catalytic activity/Vol] 18.0 U/L 11.0-82.0 [facility] Lipid Panelon 12-04-2022 Cholesterol [Mass/Vol] 219 mg/dL High 140-200 [facility] Comment on above: Order Comment: Reaso n for Exam Right upper quadrant abdominal pain Result Comment: Chol less than 200 mg/dl low risk Chol 201-239 mg/dl borderline risk Chol 240 mg/dl and greater high risk Performed By: #### H EPATIC, CBC, KEYLA, PT, LIPID, FE and TIBC, NATHALY, LIPASE #### [facility] [address] [place] [address] [place] #### HBSAG, HCV RX PCR, CARSON CHOICE, SMAB, HBSAB, HBCAB, ALPHA PHEN, CERULOP #### [facility] , Cholesterol in HDL [Mass/Vol] 50 mg/dL Normal 23-92 [facility] Comment on above: Order Comment: Reaso n for Exam Right upper quadrant abdominal pain Result Comment: HDL CHOL ATP-III CLASSIFICATION Cardiovascular Risk HDL > or equal to 60 mg/dL LOW HDL < 40 mg/dL HIGH Performed By: #### H EPATIC, CBC, KEYLA, PT, LIPID, FE and TIBC, NATHALY, LIPASE #### [address] #### HBSAG, HCV RX PCR, CARSON CHOICE, SMAB, HBSAB, HBCAB, ALPHA PHEN, CERULOP #### [facility] , Cholesterol.total/Chol esterol in HDL [Mass ratio] 4.4 {ratio} Normal <5.0 [facility] Comment on above: Order Comment: Reaso n for Exam Right upper quadrant abdominal pain Result Comment: PERF ORMED BY: [place] [address] PATHOLOGIST VOCATIONAL CASE MANAGER HILARIA REES M.D. Performed By: #### H EPATIC, CBC, KEYLA, PT, LIPID, FE and TIBC, NATHALY, LIPASE #### [address] #### HBSAG, HCV RX PCR, CARSON CHOICE, SMAB, HBSAB, HBCAB, ALPHA PHEN, CERULOP #### [facility] , LDL Cholesterol,Calculated 131 mg/dL High 0-100 [facility] Comment on above: Order Comment: [...] LIPID, FE and TIBC, NATHALY, LIPASE #### [address] #### HBSAG, HCV RX PCR, CARSON CHOICE, SMAB, HBSAB, HBCAB, ALPHA PHEN, CERULOP #### [facility] , Triglyceride w/Reflex 189 mg/dL High 0-149 [facility] Comment on above: Order [...] LIPID, FE and TIBC, NATHALY, LIPASE #### [facility] [address] [place] [address] [place] #### HBSAG, HCV RX PCR, CARSON CHOICE, SMAB, HBSAB, HBCAB, ALPHA PHEN, CERULOP #### [facility] , VLDL CHOLESTEROL 37 mg/dL Normal [facility] Comment on above: Order Comment: Reaso n for Exam Right upper quadrant abdominal pain Performed By: #### H EPATIC, CBC, KEYLA, PT, LIPID, FE and TIBC, NATHALY, LIPASE #### [facility] [address] [place] [address] [place] #### HBSAG, HCV RX PCR, CARSON CHOICE, SMAB, HBSAB, HBCAB, ALPHA PHEN, CERULOP #### [facility] , Lymphocytes Auto (Bld) [#/Vo l]Ordered By: Mark Gramajo on 12-04-2022 Lymphocytes (Bld) [#/Vol] 2.8 10*3/uL 1.00-4.8 [facility] Lymphocytes/100 WBC Auto (Bl d)Ordered By: Mark Gramajo on 12-04-2022 Lymphocytes/100 WBC (Bld) 22.5 % . [facility] MCH Auto (RBC) [Entitic mass ]Ordered By: Mark Gramajo on 12-04-2022 MCH (RBC) [Entitic mass] 28.7 pg 24.7-34.3 [facility] MCHC Auto (RBC) [Mass/Vol]Or dered By: Mark Gramajo on 12-04-2022 MCHC (RBC) [Mass/Vol] 33.2 g/dL 32.0-35.0 [facility] MCV Auto (RBC) [Entitic vol] Ordered By: Mark Gramajo on 12-04-2022 MCV (RBC) [Entitic vol] 86.4 fL 80-100 [facility] Monocytes Auto (Bld) [#/Vol] Ordered By: Mark Gramajo on 12-04-2022 Monocytes (Bld) [#/Vol] 0.8 10*3/uL 0.0-0.8 [facility] Monocytes/100 WBC Auto (Bld) Ordered By: Mark Gramajo on 12-04-2022 Monocytes/100 WBC (Bld) 6.7 % . [facility] Neutrophils Auto (Bld) [#/Vo l]Ordered By: Mark Gramajo on 12-04-2022 Neutrophils (Bld) [#/Vol] 8.4 10*3/uL 1.8-7.7 [facility] Neutrophils/100 WBC Auto (Bl d)Ordered By: Mark Gramajo on 12-04-2022 Neutrophils/100 WBC (Bld) 67.9 % . [facility] No Panel InformationOrdered By: Mark Gramajo on 12-04-2022 Hepatitis B Core Total Antibody Negative Negative [facility] Comment on above: Performed at: - [employer] [place] [id number] Director: Iftikhar Romero PhD, Phone: [phone] Hepatitis C RNA Quantitative N/A [facility] Nucleated erythrocytes [Pres ence] in Blood by Automated countOrdered By: Mark Gramajo on 12-04-2022 Nucleated RBC Auto Ql (Bld) 0.0 /100{WBC} 0-0.5 [facility] Platelet mean volume Auto (B ld) [Entitic vol]Ordered By: Mark Gramajo on 12-04-2022 Platelet mean volume (Bld) [Entitic vol] 7.7 fL 6.3-10.7 [facility] Platelets Auto (Bld) [#/Vol] Ordered By: Mark Gramajo on 12-04-2022 Platelets (Bld) [#/Vol] 303 10*3/uL 150-450 [facility] Protein [Mass/volume] in Ser um or PlasmaOrdered By: Mark Gramajo on 12-04-2022 Protein [Mass/Vol] 7.0 g/dL 6.4-8.9 [facility] Prothrombin Time INRon 12-04 INR Coag (PPP) [Relative time] 1.0 {INR} Normal [facility] Comment on above: Order [...] heart valves: 3 - 4.5 PERFORMED BY: [place] [address] PATHOLOGIST VOCATIONAL CASE MANAGER HILARIA REES M.D. Performed By: #### H EPATIC, CBC, KEYLA, PT, LIPID, FE and TIBC, NATHALY, LIPASE #### [facility] [address] [place] [address] #### HBSAG, HCV RX PCR, CARSON CHOICE, SMAB, HBSAB, HBCAB, ALPHA PHEN, CERULOP #### [facility] , PT Coag (PPP) [Time] 11.3 s Normal 9.0-12.9 [facility] Comment on above: Order Comment: Reaso n for Exam Right upper quadrant abdominal pain Performed By: #### H EPATIC, CBC, KEYLA, PT, LIPID, FE and TIBC, NATHALY, LIPASE #### [facility] [address] [place] [address] #### HBSAG, HCV RX PCR, CARSON CHOICE, SMAB, HBSAB, HBCAB, ALPHA PHEN, CERULOP #### [facility] , RBC Auto (Bld) [#/Vol]Ordere d By: Mark Gramajo on 12-04-2022 RBC (Bld) [#/Vol] 4.79 10*6/uL 3.60-5.00 [facility] Serum hepatitis B virus surf yessy antibody detectionOrdered By: Mark Gramajo on 12-04-2022 HBV surface Ab Ql (S) Non-Reactive . F [facility] Comment on above: Non Reactive: Incons istent with immunity, less than 10 mIU/mL Reactive: Consistent with immunity, greater than 9.9 mIU/mL Serum or plasma albumin/glob ulin mass ratioOrdered By: Mark Gramajo on 12-04-2022 Albumin/Globulin [Mass ratio] 1.3 {ratio} [facility] Serum or plasma ceruloplasmi n measurement (mass/volume)Ordered By: Mark Gramajo on 12-04-2022 Ceruloplasmin [Mass/Vol] 33.7 mg/dL 19.0-39.0 [facility] Comment on above: Performed at: [facility] [place] [id number] Director: Iftikhar Romero PhD, Phone: [phone] Serum or plasma free cefurox jocy measurement (mass/volume)Ordered By: Mark Gramajo on 12-04-2022 Cefuroxime free [Mass/Vol] Negative Negative [facility] Comment on above: Performed at: [id number] [place], [place] [id number] Director: Iftikhar Romero PhD, Phone: [phone] Serum or plasma high density lipoprotein (HDL) cholesterol measurementOrdered By: Mark Gramajo on 12-04-2022 Cholesterol in HDL [Mass/Vol] 50 mg/dL 23- [facility] Comment on above: HDL CHOL ATP-III CLA SSIFICATION Cardiovascular RiskHDL > or equal to 60 mg/dL LOWHDL < 40 mg/dL HIGH Serum or plasma non-glucuron idated bilirubin measurement (mass/volume)Ordered By: Mark Gramajo on 12-04-2022 Bilirubin.indirect [Mass/Vol] 0.3 mg/dL [facility] Serum or plasma total choles terol/high density lipoprotein (HDL) cholesterol mass ratOrdered By: Mark Gramajo on 12-04-2022 Cholesterol.total/Chol esterol in HDL [Mass ratio] 4.4 {ratio} <5.0 [facility] Smooth Muscle Antibodyon Smooth Muscle Antibody 6 Normal 0-19 [facility] Comment on above: Order Comment: Reaso n for Exam Right upper quadrant abdominal pain Result Comment: Nega tive 0 - 19 Weak positive 20 - 30 Moderate to strong positive >30 Actin Antibodies are found in 52-85% of patients with autoimmune hepatitis or chronic active hepatitis and in 22% of patients with primary biliary cirrhosis. PERFORMED BY: [place] [address] PATHOLOGIST VOCATIONAL CASE MANAGER HILARIA REES M.D. Performed By: #### H EPATIC, CBC, KEYLA, PT, LIPID, FE and TIBC, NATHALY, LIPASE #### [facility] [address] [place] [address] [place] #### HBSAG, HCV RX PCR, CARSON CHOICE, SMAB, HBSAB, HBCAB, ALPHA PHEN, CERULOP #### [facility] , Transferrin [Mass/volume] in Serum or PlasmaOrdered By: Mark Gramajo on 12-04-2022 Transferrin [Mass/Vol] 260 mg/dL 203-362 [facility] Triglyceride [Mass/volume] i n Serum or PlasmaOrdered By: Mark Gramajo on 12-04-2022 Triglyceride [Mass/Vol] 189 mg/dL 0-149 [facility] Comment on above: TRIG ATP III CLASSIF ICATIONTRIG less than 150 mg/dL NormalTRIG 150-199 mg/dL Borderline highTRIG 200-500 mg/dL High TRIG greater than 500 mg/dL Very highStandard traceable to the Center for Disease Conrtrol and Prevention (CDC) test method. US liveron 12-04-2022 liver [facility] [place] [address] [place] [address] Ultrasound Report Signed Patient: Tasha Paul MR#: [id number] : 1975 Acct:[id number] Age/Sex: 47 / F ADM Date: 12/04/22 Loc: Room: Type: [facility] Attending Dr: Mark Gramajo APRN Ordering Provider: [...] Phu Jamil M.D.12/04/2022 2:47 PM Dictation Location: [place] [address] Tech: Bhargavi Torres Transcribed By: FLORENTINO 12/04/22 144 Dictated By: Phu Jamil DO 12/04/22 144 Signed By: 12/04/22 1447 Normal [facility] WBC Auto (Bld) [#/Vol]Ordere d By: Mark Gramajo on 12-04-2022 WBC (Bld) [#/Vol] 12.3 10*3/uL 3.8-11.6 [facility] Glucose - FINGER STICKon Glucose [Mass/Vol] 197 mg/dL [facility] Other A1C HEMOGLOBINon 08-30-2022 HbA1c (Bld) [Mass fraction] 7.4 % [facility] Other Glucose - FINGER STICKon Glucose [Mass/Vol] 144 mg/dL [facility] Other HbA1c (Bld) [Mass fraction]o n 08-30-2022 A1C HEMOGLOBIN [facility] [employer] Other US SINGLE QUAD RT UPPERon US [...] VALERIANO SINCLAIR Date: 2022-08-11 11:38 Normal [facility] ACETONE SERUMon 08-07-2022 ACETONE Negative Normal NEGATIVE [facility] Comment on above: Performed By: #### A CETON #### [facility] [address] [place] [address] Dr. Annabelle Kilgore CBC AUTO DIFFon 08-07-2022 BASO # 0.1 103/ul Normal 0.0-0.1 [facility] Comment on above: Performed By: #### C BC #### [facility] [address] [place] [address] Dr. Annabelle Kilgore Basophils/100 WBC (Bld) 0.7 % Normal 0.2-2.0 [facility] Comment on above: Performed By: #### C BC #### [facility] [address] [place] [address] Dr. Annabelle Kilgore EO # 0.1 103/ul Normal 0.0-0.7 [facility] Comment on above: Performed By: #### C BC #### [facility] [address] [place] [address] Dr. Annabelle Kilgore Eosinophils/100 WBC (Bld) 0.7 % Critically low 0.9-7.0 [facility] Comment on above: Performed By: #### C BC #### [facility] [address] [place] [address] Dr. Annabelle Kilgore Erythrocyte distribution width (RBC) [Ratio] 12.7 % Normal 11.0-15.0 [facility] Comment on above: Performed By: #### C BC #### [facility] [address] [place] [address] Dr. Annabelle Kilgore Hematocrit (Bld) [Volume fraction] 38.9 % Normal 36.0-48.0 [facility] Comment on above: Performed By: #### C BC #### [facility] [address] [place] [address] Dr. Annabelle Kilgore Hemoglobin (Bld) [Mass/Vol] 13.4 g/dL Normal 12.0-16.0 [facility] Comment on above: Performed By: #### C BC #### [facility] [address] [place] [address] [address] Annabelle Kilgore IG # 0.05 10e3/ul Critically high 0.00-0.03 [facility] Comment on above: Performed By: #### C BC #### [facility] [address] [place] [address] Dr. Annabelle Kilgore IG % 0.4 % Normal 0.0-0.5 [facility] Comment on above: Performed By: #### C BC #### [facility] [address] [place] [address] Dr. Annabelle Kilgore LYMPH # 3.5 103/ul Normal 1.2-3.8 [facility] Comment on above: Performed By: #### C BC #### [facility] [address] [place] [address] Dr. Annabelle Kilgore Lymphocytes/100 WBC (Bld) 25.1 % Normal 20.5-60.0 [facility] Comment on above: Performed By: #### C BC #### [facility] [address] [place] [address] Dr. Annabelle Kilgore MANUAL DIFF REQ NO Normal [facility] Comment on above: Performed By: #### C BC #### [facility] [address] [place] [address] Dr. Annabelle Kilgore MCH (RBC) [Entitic mass] 29.5 pg Normal 26.7-34.0 [facility] Comment on above: Performed By: #### C BC #### [facility] [address] [place] [address] Dr. Annabelle Kilgore MCHC (RBC) [Mass/Vol] 34.4 g/dL Normal 29.9-35.2 [facility] Comment on above: Performed By: #### C BC #### [facility] [address] [place] [address] Dr. Annabelle Kilgore MCV (RBC) [Entitic vol] 85.7 fL Normal 81.0-99.0 [facility] Comment on above: Performed By: #### C BC #### [facility] [address] [place] [address] [address] Annabelle Kilgore MONO # 1.1 103/ul Critically high 0.3-0.8 [facility] Comment on above: Performed By: #### C BC #### [facility] [address] [place] [address] Dr. Annabelle Kilgore Monocytes/100 WBC (Bld) 7.8 % Normal 1.7-12.0 [facility] Comment on above: Performed By: #### C BC #### [facility] [address] [place] [address] Dr. Annabelle Kilgore NEUT # 9.2 103/ul Critically high 1.4-6.5 [facility] Comment on above: Performed By: #### C BC #### [facility] [address] [place] [address] Dr. Annabelle Kilgore Neutrophils/100 WBC (Bld) 65.3 % Normal 43.0-75.0 [facility] Comment on above: Performed By: #### C BC #### [facility] [address] [place] [address] Dr. Annabelle Kilgore Platelet mean volume (Bld) [Entitic vol] 9.8 fL Normal 9.5-13.5 [facility] Comment on above: Performed By: #### C BC #### [facility] [address] [place] [address] Dr. Annabelle Kilgore PLT 326 103/ul Normal 150-450 [facility] Comment on above: Performed By: #### C BC #### [facility] [address] [place] [address] Dr. Annabelle Kilgore RBC 4.54 106/ul Normal 4.20-5.40 [facility] Comment on above: Performed By: #### C BC #### [facility] [address] [place], [place] [address] Dr. Annabelle Kilgore WBC 14.0 103/ul Critically high 4.0-11.[address] [facility] Comment on above: Performed By: #### C BC #### [facility] [address] [place], [place] [address] ABD/PELVIS WO CONon [...] Sharad PATEL Date: 2022-08-07 02:10 Normal [facility] ER URINE PROFILEon 3 Bilirubin Ql (U) SMALL Abnormal NEGATIVE [facility] Comment on above: Performed By: #### E RUR #### [facility] [address] [place] [address] Dr. Annabelle Kilgore Clarity (U) SL CLOUDY Abnormal CLEAR [facility] Comment on above: Performed By: #### E RUR #### [facility] [address] [place] [address] Dr. Annabelle Kilgore Color (U) LT. YELLOW Normal YELLOW [facility] Comment on above: Performed By: #### E RUR #### [facility] [address] [place] [address] Dr. Annabelle Kilgore ERUAHD A micrscopic examina tion will be performed if indicated. Normal [facility] Comment on above: Performed By: #### E RUR #### [facility] [address] [place] [address] Dr. Annabelle Kilgore Glucose Ql (U) Negative Normal NEGATIVE [facility] Comment on above: Performed By: #### E RUR #### [facility] [address] [place] [address] Dr. Annablele Kilgore Hemoglobin Ql (U) Negative Normal NEGATIVE [facility] Comment on above: Performed By: #### E RUR #### [facility] [address] [place] [address] Dr. Annabelle Kilgore Ketones Ql (U) 15 mg/dl Abnormal NEGATIVE [facility] Comment on above: Performed By: #### E RUR #### [facility] [address] [place] [address] Dr. Annabelle Kilgore LEUKOCYTES Negative Normal NEGATIVE [facility] Comment on above: Performed By: #### E RUR #### [facility] [address] [place] [address] Dr. Annabelle Kilgore Nitrite Ql (U) Negative Normal NEGATIVE [facility] Comment on above: Performed By: #### E RUR #### [facility] [address] [place] [address] Dr. Annabelle Kilgore pH (U) 5.5 [pH] Normal 5-9 [facility] Comment on above: Performed By: #### E RUR #### [facility] [address] [place] [address] Dr. Annabelle Kilgore SPEC GRAVITY 1.030 Abnormal 1.005-<=1. 025 [facility] Comment on above: Performed By: #### E RUR #### [facility] [address] [place] [address] Dr. Annabelle Kilgore UA PROTEIN Negative Normal NEGATIVE/ TRACE [facility] Comment on above: Performed By: #### E RUR #### [facility] [address] [place] [address] Dr. Annabelle Kilgore UR MICRO IND NOT INDICATED Normal [facility] Comment on above: Performed By: #### E RUR #### [facility] [address] [place] [address] Dr. Annabelle Kilgore Urobilinogen Qn (U) 0.2 {Floyd'U}/dL Normal 0.2 - 1. 0 [facility] Comment on above: Performed By: #### E RUR #### [facility] [address] [place] [address] Dr. Annabelle Kilgore LACTATE/LACTIC ACIDon 2022 Lactate [Moles/Vol] 1.1 mmol/L Normal 0.4-2.0 [facility] Comment on above: Performed By: #### L ACT #### [facility] [address] [place] [address] Dr. Annabelle Kilgore LIPASEon 08-07-2022 Lipase [Catalytic activity/Vol] 37.0 U/L Critically low 73.0-393.0 [facility] Comment on above: Performed By: #### L IPA #### [facility] [address] [place] [address] Dr. Annabelle Kilgore PH VENOUS BLOODon 08-07-2022 PCO2 VENOUS 37.0 mmHg Critically low 40.0-52.0 [facility] Comment on above: Performed By: #### P HVEN ####[facility] [id number] [place], [place] [address]SoDr. Annabelle Kilgore pH VENOUS 7.415 Normal 7.330-7.43 0 [facility] Comment on above: Performed By: #### P HVEN ####[facility] [id number] [place], [place] [address]IaDr. Annabelle Kilgore PROF 14(COMP METB)on 023 Albumin [Mass/Vol] 3.5 g/dL Normal 3.4-5.0 [facility] Comment on above: Performed By: #### C MP, HSTROPN #### [facility] [address] [place] [address] [address] Annabelle Kilgore Albumin/Globulin [Mass ratio] 0.9 {ratio} Normal [facility] Comment on above: Performed By: #### C MP, HSTROPN #### [facility] [address] [place] [address] [address] Annabelle Kilgore ALP [Catalytic activity/Vol] 82 U/L Normal 46-116 [facility] Comment on above: Performed By: #### C MP, HSTROPN #### [facility] [address] [place] [address] [address] Annabelle Kilgore ALT [Catalytic activity/Vol] 35 U/L Normal 14-59 [facility] Comment on above: Performed By: #### C MP, HSTROPN #### [facility] [address] [place] [address] [address] Annabelle Kilgore Anion gap [Moles/Vol] 18.2 mmol/L Normal [facility] Comment on above: Performed By: #### C MP, HSTROPN #### [facility] [address] [address] [address] Annabelle Kilgore AST [Catalytic activity/Vol] 21 U/L Normal 15-37 [facility] Comment on above: Performed By: #### C MP, HSTROPN #### [facility] [address] [address] [address] Annabelle Kilgore Bilirubin [Mass/Vol] 0.5 mg/dL Normal 0.2-1.0 [facility] Comment on above: Performed By: #### C MP, HSTROPN #### [facility] [address] [place] [address] Dr. Annabelle Kilgore Calcium [Mass/Vol] 9.2 mg/dL Normal 8.5-10.1 [facility] Comment on above: Performed By: #### C MP, HSTROPN #### [facility] [address] [place] [address] Dr. Annabelle Kilgore Chloride [Moles/Vol] 104 mmol/L Normal 98-107 [facility] Comment on above: Performed By: #### C MP, HSTROPN #### [facility] [address] [place] [address] Dr. Annabelle Kilgore CO2 [Moles/Vol] 23.1 mmol/L Normal 21.0-32.[address] [facility] Comment on above: Performed By: #### C MP, HSTROPN #### [facility] [address] [place] [address] Dr. Annabelle Kilgore Creatinine [Mass/Vol] 0.65 mg/dL Normal 0.55-1.02 [facility] Comment on above: Performed By: #### C GÉNESIS, HSTROPN #### [facility] [address] [place] [address] Dr. Annabelle Kilgore EGFR-AF [place] >60 Normal >=60 [facility] Comment on above: Performed By: #### C MP, HSTROPN #### [facility] [address] [place] [address] Dr. Annabelle Kilgore EGFR-NON AF [place] >60 Normal >=60 [facility] Comment on above: Performed By: #### C MP, HSTROPN #### [facility] [address] [place] [address] Dr. Annabelle Kilgore Globulin (S) [Mass/Vol] 3.9 g/dL Normal [facility] Comment on above: Performed By: #### C MP, HSTROPN #### [facility] [address] [place] [address] Dr. Annabelle Kilgore Glucose [Mass/Vol] 122 mg/dL Critically high 74-106 [facility] Comment on above: Performed By: #### C MP, HSTROPN #### [facility] [address] [place] [address] Dr. Annabelle Kilgore Potassium [Moles/Vol] 3.3 mmol/L Critically low 3.5-5.1 [facility] Comment on above: Performed By: #### C MP, HSTROPN #### [facility] [address] [place] [address] Dr. Annabelle Kilgore Protein [Mass/Vol] 7.4 g/dL Normal 6.4-8.2 [facility] Comment on above: Performed By: #### C MP, HSTROPN #### [facility] [address] [place] [address] Dr. Annabelle Kilgore Sodium [Moles/Vol] 142 mmol/L Normal 136-145 [facility] Comment on above: Performed By: #### C MP, HSTROPN #### [facility] [address] [place] [address] Dr. Annabelle Kilgore Urea nitrogen [Mass/Vol] 15.0 mg/dL Normal 7.0-18.0 [facility] Comment on above: Performed By: #### C MP, HSTROPN #### [facility] [address] [place] [address] Dr. Annabelle Kilgore Urea nitrogen/Creatinine [Mass ratio] 23.1 mg/mg Normal [facility] Comment on above: Performed By: #### C MP, HSTROPN #### [facility] [address] [place] [address] Dr. Annabelle Kilgore TROPONIN, HIGH SENSITIVITYon 08-07-2022 HSTROP 30.1 pg/mL Normal 4.0-51.3 [facility] Comment on above: Result Comment: CUT- OFF POINTS HAVE BEEN ESTABLISHED BASED ON THE FOURTH UNIVERSAL DEFINITIONS OF MYOCARDIAL INFARCTION. THE UPPER REFERENCE LIMIT (URL) OF TROPONIN, DEFINED THE 99TH PERCENTILE OF cTnI DISTRIBUTION IN A REFERENCE POPULATION, HAS BEEN CONFIRMED THE DECISION THRESHOLD FOR PR DIAGNOSIS. Performed By: #### C , HSTROPN #### [facility] [address] [address] [address] Annabelle Kilgore MG MAMM SCREEN 3D HECTOR CADon 08-04-2022 MG MAMM SCREEN 3D HECTOR CAD Patient: TASHA PAUL Exam Date: 08/04/2022 : 1975 Gender:F Ordering : DENISE SONYA MEJIA [facility] Admission #: [id number] Family : Order #: [id number] CLICK HERE TO VIEW EXAM RADIOLOGY REPORT [...] ovarian cancer at age 42. LOCATION: [facility] BREAST COMPOSITION: Scattered areas fibroglandular density. [...] MD on 08/07/2022 at 10:05 Normal [facility] Alanine aminotransferase [En zymatic activity/volume] in Serum or PlasmaOrdered By: Glenna Quinones on 07-19-2022 ALT [Catalytic activity/Vol] 25 U/L 7-52 [facility] Albumin [Mass/volume] in Ser um or Plasma by Bromocresol green (BCG) dye binding methoOrdered By: Glenna Quinones on 07-19-2022 Albumin BCG dye [Mass/Vol] 4.2 g/dL 3.5-5.7 [facility] Alkaline phosphatase [Enzyma tic activity/volume] in Serum or PlasmaOrdered By: Glenna Quinones on 07-19-2022 ALP [Catalytic activity/Vol] 84 U/L 34-104 [facility] Aspartate aminotransferase [ Enzymatic activity/volume] in Serum or PlasmaOrdered By: Glenna Quinones on 07-19-2022 AST [Catalytic activity/Vol] 17 U/L 13-39 [facility] Bilirubin.total [Mass/volume ] in Serum or PlasmaOrdered By: Glenna Quinones on 07-19-2022 Bilirubin [Mass/Vol] 0.6 mg/dL 0.3-1.0 [facility] Calcium [Mass/volume] in Ser um or PlasmaOrdered By: Glenna Quinones on 07-19-2022 Calcium [Mass/Vol] 9.6 mg/dL 8.6-10.3 [facility] Carbon dioxide, total [Moles /volume] in Serum or PlasmaOrdered By: Glenna Quinones on 07-19-2022 CO2 [Moles/Vol] 26.4 mmol/L 21.0-31.0 [facility] Chloride [Moles/volume] in S cindy or PlasmaOrdered By: Glenna Quinones on 07-19-2022 Chloride [Moles/Vol] 102 mmol/L 98-107 [facility] Cholesterol [Mass/volume] in Serum or PlasmaOrdered By: Glenna Quinones on 07-19-2022 Cholesterol [Mass/Vol] 144 mg/dL 140-200 [facility] Comment on above: Chol less than 200 m g/dl low riskChol 201-239 mg/dl borderline riskChol 240 mg/dl and greater high risk Cholesterol in LDL Calc [Mas s/Vol]Ordered By: Glenna Quinones on 07-19-2022 Cholesterol in LDL [Mass/Vol] 66 mg/dL 0-100 [facility] Comment on above: LDL ATP III CLASSIFI CATIONLDL less than 100 mg/dL OptimalLDL 100-129 mg/dL Near or above optimalLDL 130-159 mg/dL Borderline highLDL 160-189 mg/dL HighLDL greater than 189 mg/dL Very high Cholesterol in VLDL Calc [Ma ss/Vol]Ordered By: Glenna Quinones on 07-19-2022 Cholesterol in VLDL [Mass/Vol] 33 mg/dL [facility] Creatinine [Mass/volume] in Serum or PlasmaOrdered By: Glenna Quinones on 07-19-2022 Creatinine [Mass/Vol] 0.52 mg/dL 0.60-1.20 [facility] Creatinine [Mass/volume] in UrineOrdered By: Glenna Quinones on 07-19-2022 Creatinine (U) [Mass/Vol] 146.0 mg/dL [facility] Comment on above: No reference range e stablished Globulin Calc (S) [Mass/Vol] Ordered By: Glenna Quinones on 07-19-2022 Globulin (S) [Mass/Vol] 2.9 g/dL [facility] Glucose [Mass/volume] in Ser um or PlasmaOrdered By: Glenna Quinones on 07-19-2022 Glucose [Mass/Vol] 140 mg/dL 70-100 [facility] Comment on above: ADA recommended refe rence rangeRandom Glucose Reference Range is dependent on time and content of last meal. Glucose of more than 200 mg/dL in a nonstressed, ambulatory subject supports the diagnosis of Diabetes Mellitus. Microalbumin [Mass/volume] i n UrineOrdered By: Glenna Quinones on 07-19-2022 Albumin DL <= 20 mg/L (U) [Mass/Vol] 2.2 mg/dL 0.0-1.8 [facility] No Panel InformationOrdered By: Glenna Quinones on 07-19-2022 Estimated GFR (CKD-EPI) > 60.0 mL/Min [facility] Creatinine Clearance (Chem N/A [facility] Potassium [Moles/volume] in Serum or PlasmaOrdered By: Glenna Quinones on 07-19-2022 Potassium [Moles/Vol] 4.2 mmol/L 3.5-5.1 [facility] Protein [Mass/volume] in Ser um or PlasmaOrdered By: Glenna Quinones on 07-19-2022 Protein [Mass/Vol] 7.1 g/dL 6.4-8.9 [facility] Serum or plasma albumin/glob ulin mass ratioOrdered By: Glenna Quinones on 07-19-2022 Albumin/Globulin [Mass ratio] 1.4 {ratio} [facility] Serum or plasma anion gap de terminationOrdered By: Glenna Quinones on 07-19-2022 Anion gap [Moles/Vol] 15.8 mmol/L 6.0-15.0 [facility] Serum or plasma high density lipoprotein (HDL) cholesterol measurementOrdered By: Glenna Quinnoes on 07-19-2022 Cholesterol in HDL [Mass/Vol] 45 mg/dL 35-85 [facility] Comment on above: HDL CHOL ATP-III CLA SSIFICATION Cardiovascular RiskHDL > or equal to 60 mg/dL LOWHDL < 40 mg/dL HIGH Serum or plasma total choles terol/high density lipoprotein (HDL) cholesterol mass ratOrdered By: Glenna Quinones on 07-19-2022 Cholesterol.total/Chol esterol in HDL [Mass ratio] 3.2 {ratio} <5.0 [facility] Sodium [Moles/volume] in Ser um or PlasmaOrdered By: Glenna Quinones on 07-19-2022 Sodium [Moles/Vol] 140 mmol/L 136-145 [facility] Triglyceride [Mass/volume] i n Serum or PlasmaOrdered By: Glenna Quinones on 07-19-2022 Triglyceride [Mass/Vol] 167 mg/dL 0-149 [facility] Comment on above: TRIG ATP III CLASSIF ICATIONTRIG less than 150 mg/dL NormalTRIG 150-199 mg/dL Borderline highTRIG 200-500 mg/dL High TRIG greater than 500 mg/dL Very highStandard traceable to the Center for Disease Conrtrol and Prevention (CDC) test method. Urea nitrogen [Mass/volume] in Serum or PlasmaOrdered By: Glenna Quinones on 07-19-2022 Urea nitrogen [Mass/Vol] 15 mg/dL 7-25 [facility] Urine microalbumin/creatinin e mass ratioOrdered By: Glenna Quinones on 07-19-2022 Albumin/Creatinine DL <= 20 mg/L (U) [Mass ratio] 15.0 mg/g 0.0-30.0 [facility] Comment on above: 30-300 mg/g indicate s an increased risk for diabetic nephropathy. Greater than 300 mg/g is consistent with clinical nephropathy. (Am. J. Kidney Disease 1994, 25:107) Vitamin B12 ser/plasOrdered By: Glenna Quinones on 07-19-2022 Cobalamin (Vitamin B12) [Mass/Vol] 615 pg/mL 180-914 [facility] Vitamin D+Metabolites [Mass/ volume] in Serum or PlasmaOrdered By: Glenna Quinones on 07-19-2022 Vitamin D+Metabolites [Mass/Vol] 37.0 ng/mL 30-100 [facility] Comment on above: VITAMIN D STATUS 25( [place])VITAMIN D RANGE (ng/mL) Deficient <20 Insufficient 20 to <30Sufficient 30 to 100Reference: Eulalio MF,Janny NC, Zeus VALLE, et al. Evaluation,treatment, and prevention of vitamin D deficiency; an Endocrine Society clinical practice guideline. JCEM. 2010; 96(7):1911-30. Glucose - FINGER STICKon Glucose [Mass/Vol] 89 mg/dL [facility] Other A1C HEMOGLOBINon 09-27-2021 HbA1c (Bld) [Mass fraction] 8.5 % [facility] Other Glucose - FINGER STICKon Glucose [Mass/Vol] 157 mg/dL [facility] Other HbA1c (Bld) [Mass fraction]o n 09-27-2021 [facility]IN [facility] Other Glucose - FINGER STICKon Glucose [Mass/Vol] 272 mg/dL [facility] Other Glucose - FINGER STICKon Glucose [Mass/Vol] 378 mg/dL [facility] Other A1C HEMOGLOBINon 04-11-2021 HbA1c (Bld) [Mass fraction] 9.3 % [facility] Other Glucose - FINGER STICKon Glucose [Mass/Vol] 252 mg/dL [facility] Other HbA1c (Bld) [Mass fraction]o n 04-11-2021 A1C HEMOGLOBIN [employer] Other Albumin [Mass/volume] in Ser um or Plasmaon 04-28-2020 Albumin [Mass/Vol] 3.5 g/dL 3.2-5.5 [facility] Cholesterol [Mass/volume] in Serum or Plasmaon 04-28-2020 Cholesterol [Mass/Vol] 261 mg/dL 140-200 [facility] Comment on above: Chol less than 200 m g/dl low riskChol 201-239 mg/dl borderline riskChol 240 mg/dl and greater high risk Cholesterol in LDL Calc [Mas s/Vol]on 04-28-2020 Cholesterol in LDL [Mass/Vol] [facility] Comment on above: Test not performed Cholesterol in VLDL Calc [Ma ss/Vol]on 04-28-2020 Cholesterol in VLDL [Mass/Vol] [facility] Comment on above: Test not performed Creatinine [Mass/volume] in Urineon 04-28-2020 Creatinine (U) [Mass/Vol] 52.4 mg/dL [facility] Comment on above: No reference range e stablished Creatinine and Glomerular fi ltration rate.predicted panel (S/P/Bld)on 04-28-2020 Creatinine [Mass/Vol] 0.63 mg/dL 0.44-1.03 [facility] Estimated glomerular filtrat ion rate (GFR) non- Americanon 04-28-2020 GFR/1.73 sq M.predicted among non-blacks MDRD (S/P/Bld) [Vol rate/Area] mL/min/{1.73_m2} [facility] Globulin Calc (S) [Mass/Vol] on 04-28-2020 Globulin (S) [Mass/Vol] 2.7 g/dL [facility] - Chemistry and C hemistry - challengeon 04-28-2020 Cobalamin (Vitamin B12) [Mass/Vol] 247 pg/mL 180-914 [facility] GFR/1.73 sq M.predicted MDRD (S/P/Bld) [Vol rate/Area] mL/min/{1.73_m2} [facility] Comment on above: GFR estimated refere nce range: According to KDOQI guidelines, <60 ml/min/1.73m2 is sufficient to diagnose a patient with chronic kidney disease. No Panel Informationon 04-28 25-Hydroxy Vitamin D Total 20.1 ng/mL 30-100 [facility] Comment on above: VITAMIN D STATUS 25( [place])VITAMIN D RANGE (ng/mL) Deficient <20 Insufficient 20 to <30Sufficient 30 to 100Reference: Eulalio MF,Janny GARCIA, Zeus VALLE, et al. Evaluation,treatment, and prevention of vitamin D deficiency; an Endocrine Society clinical practice guideline. JCEM. 2010; 96(7):1911-30. Pharmacy Creatinine Clearance (Chem N/A [facility] Protein [Mass/volume] in Ser um or Plasmaon 04-28-2020 Protein [Mass/Vol] 6.2 g/dL 6.1-7.9 [facility] Serum or plasma alanine mcdaniel otransferase measurement without P-5'-P (enzymatic activion 04-28-2020 ALT No additional P-5'-P [Catalytic activity/Vol] 21 U/L 10-60 [facility] Serum or plasma albumin/glob ulin mass ratioon 04-28-2020 Albumin/Globulin [Mass ratio] 1.3 {ratio} [facility] Serum or plasma alkaline maya sphatase measurement (enzymatic activity/volume)on 04-28-2020 ALP [Catalytic activity/Vol] 86 U/L 32-92 [facility] Serum or plasma aspartate am inotransferase measurement (enzymatic activity/volume)on 04-28-2020 AST [Catalytic activity/Vol] 19 U/L 10-42 [facility] Serum or plasma calcium mallory urement (mass/volume)on 04-28-2020 Calcium [Mass/Vol] 9.1 mg/dL 8.2-10.2 [facility] Serum or plasma chloride grzegorz surement (moles/volume)on 04-28-2020 Chloride [Moles/Vol] 103 mmol/L 95-114 [facility] Serum or plasma cholesterol in LDL measurement (mass/volume)on 04-28-2020 Cholesterol in LDL [Mass/Vol] 148 mg/dL 0-100 [facility] Comment on above: LDL ATP III CLASSIFI CATIONLDL less than 100 mg/dL OptimalLDL 100-129 mg/dL Near or above optimalLDL 130-159 mg/dL Borderline highLDL 160-189 mg/dL HighLDL greater than 189 mg/dL Very high Serum or plasma glucose mallory urement (mass/volume)on 04-28-2020 Glucose [Mass/Vol] 90 mg/dL 70-100 [facility] Comment on above: ADA recommended refe rence rangeRandom Glucose Reference Range is dependent on time and content of last meal. Glucose of more than 200 mg/dL in a nonstressed, ambulatory subject supports the diagnosis of Diabetes Mellitus. Serum or plasma high density lipoprotein (HDL) cholesterol measurementon 04-28-2020 Cholesterol in HDL [Mass/Vol] 56 mg/dL 35-85 [facility] Comment on above: HDL CHOL ATP-III CLA SSIFICATION Cardiovascular RiskHDL > or equal to 60 mg/dL LOWHDL < 40 mg/dL HIGH Serum or plasma potassium me asurement (moles/volume)on 04-28-2020 Potassium [Moles/Vol] 4.3 mmol/L 3.5-5.1 [facility] Serum or plasma sodium measu rement (moles/volume)on 04-28-2020 Sodium [Moles/Vol] 137 mmol/L 136-146 [facility] Serum or plasma total biliru bin measurement (mass/volume)on 04-28-2020 Bilirubin [Mass/Vol] 0.5 mg/dL 0.3-1.2 [facility] Serum or plasma total carbon dioxide measurement (moles/volume)on 04-28-2020 CO2 [Moles/Vol] 24.8 mmol/L 22.0-30.0 [facility] Serum or plasma total choles terol/high density lipoprotein (HDL) cholesterol mass felix 04-28-2020 Cholesterol.total/Chol esterol in HDL [Mass ratio] 4.7 {ratio} <5.0 [facility] Serum or plasma urea nitroge n measurement (mass/volume)on 04-28-2020 Urea nitrogen [Mass/Vol] 12 mg/dL 9-23 [facility] Triglyceride [Mass/volume] i n Serum or Plasmaon 04-28-2020 Triglyceride [Mass/Vol] 418 mg/dL 35-149 [facility] Comment on above: If the triglyceride result [...] 20 mg/L (U) [Mass/Vol] 0.5 mg/dL 0.0-1.8 [facility] Urine microalbumin/creatinin e mass ratioon 04-28-2020 Albumin/Creatinine DL <= 20 mg/L (U) [Mass ratio] 9.0 mg/g 0.0-30.0 [facility] Comment on above: 30-300 mg/g indicate s an increased risk for diabetic nephropathy. Greater than 300 mg/g is consistent with clinical nephropathy. (Am. J. Kidney Disease 1995, 25:107) No Panel Information [facility] Vital Signs Date Time Vital Sign Value Performing Clinician Facility 01-30-2024 14:30-0400 Body height 167.6 cm Sonya Mejia NP Work Phone: [facility] 01-30-2024 14:30-0400 Body mass index (BMI) [Ratio] 43.22 kg/m2 Sonya Mejia [employer] Work Phone: [facility] 01-30-2024 14:30-0400 Body temperature 98.29 [degF] Sonya Mejia [employer] Work Phone: [facility] 01-30-2024 14:30-0400 Body weight 121.47 kg Sonya Mejia [employer] Work Phone: [facility] 01-30-2024 14:30-0400 Diastolic blood pressure 86 mm[Hg] Sonya Mejia [employer] Work Phone: [facility] 01-30-2024 14:30-0400 Heart rate 96 /min Sonya Joaquinclyde [employer] Work Phone: [facility] 01-30-2024 14:30-0400 Respiratory rate 20 /min Sonya Laoadalberto [employer] Work Phone: [facility] 01-30-2024 14:30-0400 SaO2% (BldA) [Mass fraction] 96 % Sonya Mejia [employer] Work Phone: [facility] 01-30-2024 14:30-0400 Systolic blood pressure 138 mm[Hg] Sonya Joaquinclyde [employer] Work Phone: [facility] 01-22-2024 14:25-0400 Body height 165.1 cm [facility] 01-22-2024 14:25-0400 Body mass index (BMI) [Ratio] 44.2 kg/m2 [facility] 01-22-2024 14:25-0400 Body weight 120.65 kg [facility] 01-22-2024 14:25-0400 Diastolic blood pressure 66 mm[Hg] [facility] 01-22-2024 14:25-0400 Heart rate 100 /min [facility] 01-22-2024 14:25-0400 Respiratory rate 18 /min [facility] 01-22-2024 14:25-0400 SaO2% (BldA) [Mass fraction] 96 % [facility] 01-22-2024 14:25-0400 Systolic blood pressure 110 mm[Hg] [facility] 11-26-2023 14:03-0400 Body height 165.1 cm [facility] 11-26-2023 14:03-0400 Body mass index (BMI) [Ratio] 45.9 kg/m2 [facility] 11-26-2023 14:03-0400 Body weight 125.19 kg [facility] 11-26-2023 14:03-0400 Diastolic blood pressure 84 mm[Hg] [facility] 11-26-2023 14:03-0400 Heart rate 112 /min [facility] 11-26-2023 14:03-0400 Respiratory rate 18 /min [facility] 11-26-2023 14:03-0400 SaO2% (BldA) [Mass fraction] 96 % [facility] 11-26-2023 14:03-0400 Systolic blood pressure 139 mm[Hg] [facility] 10-11-2023 13:30-0400 Body height 165.1 cm [employer] Work Phone: [facility] 10-11-2023 13:30-0400 Body mass index (BMI) [Ratio] 44.4 kg/m2 Sonya [employer] Work Phone: [facility] 10-11-2023 13:30-0400 Body weight 121.1 kg Sonya [employer] Work Phone: [facility] 08-21-2023 12:54-0400 Body height 165.1 cm [employer] Work Phone: [facility] 08-21-2023 12:54-0400 Body mass index (BMI) [Ratio] 44.6 kg/m2 [employer] Work Phone: [facility] 08-21-2023 12:54-0400 Body weight 121.56 kg [employer] Work Phone: [facility] 08-21-2023 12:54-0400 Diastolic blood pressure 82 mm[Hg] [employer] Work Phone: [facility] 08-21-2023 12:54-0400 Heart rate 121 /min [employer] Work Phone: [facility] 08-21-2023 12:54-0400 Respiratory rate 20 /min [employer] Work Phone: [facility] 08-21-2023 12:54-0400 SaO2% (BldA) [Mass fraction] 95 % [employer] Work Phone: [facility] 08-21-2023 12:54-0400 Systolic blood pressure 138 mm[Hg] Services [facility] Work Phone: [facility] 06-07-2023 17:03-0500 Body height 167.6 cm Sonya Laoz [employer] Work Phone: [facility] 06-07-2023 17:03-0500 Body mass index (BMI) [Ratio] 42.74 kg/m2 Sonya Aichholz [employer] Work Phone: [facility] 06-07-2023 17:03-0500 Body temperature 97.59 [degF] Sonya Emaniholz [employer] Work Phone: [facility] 06-07-2023 17:03-0500 Body weight 120.11 kg Sonya Emaniholz [employer] Work Phone: [facility] 06-07-2023 17:03-0500 Diastolic blood pressure 80 mm[Hg] Sonya Aichholz [employer] Work Phone: [facility] 06-07-2023 17:03-0500 Heart rate 109 /min Sonya Aichholz [employer] Work Phone: [facility] 06-07-2023 17:03-0500 Respiratory rate 19 /min Sonya Emanihholz [employer] Work Phone: [facility] 06-07-2023 17:03-0500 SaO2% (BldA) [Mass fraction] 98 % Sonya Emanidanishholz [employer] Work Phone: [facility] 06-07-2023 17:03-0500 Systolic blood pressure 122 mm[Hg] Sonya Emaniholz [employer] Work Phone: [facility] 02-19-2023 14:00-0400 Body height 165.1 cm Glenna Quinones Other [facility] Other 02-19-2023 14:00-0400 Body mass index (BMI) [Ratio] 42.76 kg/m2 Glenna Scally Other [facility] Other 02-19-2023 14:00-0400 Body weight 116.58 kg Glenna Scally Other [facility] Other 02-19-2023 14:00-0400 Diastolic blood pressure 76 mm[Hg] Glenna Scally Other [facility] Other 02-19-2023 14:00-0400 Respiratory rate 18 /min Glenna Scally Other [facility] Other 02-19-2023 14:00-0400 SaO2% (BldA) [Mass fraction] 96 % Glenna Scally Other [facility] Other 02-19-2023 14:00-0400 Systolic blood pressure 127 mm[Hg] Glenna Scally Other [facility] Other 01-16-2023 13:00-0400 Body height 165.1 cm Glenna Scally Other [facility] Other 01-16-2023 13:00-0400 Body mass index (BMI) [Ratio] 40.63 kg/m2 Glenna Scally Other [facility] Other 01-16-2023 13:00-0400 Body weight 110.77 kg Glenna Scally Other [facility] Other 11-21-2022 13:00-0400 Body height 165.1 cm Glenna Scally Other [facility] Other 11-21-2022 13:00-0400 Body mass index (BMI) [Ratio] 41.36 kg/m2 Glenna Scally Other [facility] Other 11-21-2022 13:00-0400 Body weight 112.76 kg Glenna Scally Other [facility] Other 11-21-2022 13:00-0400 Diastolic blood pressure 93 mm[Hg] Glenna Scally Other [facility] Other 11-21-2022 13:00-0400 Respiratory rate 18 /min Glenna Scally Other [facility] Other 11-21-2022 13:00-0400 SaO2% (BldA) [Mass fraction] 98 % Glenna Scally Other [facility] Other 11-21-2022 13:00-0400 Systolic blood pressure 137 mm[Hg] Glenna Scally Other [facility] Other 11-20-2022 15:00-0400 Body height 165.1 cm Mark Gramajo Other [facility] Other 11-20-2022 15:00-0400 Body mass index (BMI) [Ratio] 41.05 kg/m2 Mark Gramajo Other [facility] Other 11-20-2022 15:00-0400 Body weight 111.9 kg Mark Gramajo Other [facility] Other 11-20-2022 15:00-0400 Diastolic blood pressure 89 mm[Hg] Mark Gramajo Other [facility] Other 11-20-2022 15:00-0400 Systolic blood pressure 133 mm[Hg] Mark Gramajo Other [facility] Other 10-17-2022 11:00-0400 Body height 165.1 cm Glenna Scally Other [facility] Other 10-17-2022 11:00-0400 Body mass index (BMI) [Ratio] 41.76 kg/m2 Glenna Scally Other [facility] Other 10-17-2022 11:00-0400 Body weight 113.85 kg Glenna Scally Other [facility] Other 08-30-2022 14:00-0400 Body height 165.1 cm Glenna Scally Other [facility] Other 08-30-2022 14:00-0400 Body mass index (BMI) [Ratio] 42.25 kg/m2 Glenna Scally Other [facility] Other 08-30-2022 14:00-0400 Body weight 115.17 kg Glenna Scally Other [facility] Other 08-30-2022 14:00-0400 Diastolic blood pressure 88 mm[Hg] Glenna Scally Other [facility] Other 08-30-2022 14:00-0400 Respiratory rate 18 /min Glenna Scally Other [facility] Other 08-30-2022 14:00-0400 SaO2% (BldA) [Mass fraction] 96 % Glenna Scally Other [facility] Other 08-30-2022 14:00-0400 Systolic blood pressure 136 mm[Hg] Glenna Scally Other [facility] Other 07-19-2022 14:00-0400 Body height 165.1 cm Glenna Scally Other [facility] Other 07-19-2022 14:00-0400 Body mass index (BMI) [Ratio] 42.1 kg/m2 Glenna Scally Other [facility] Other 07-19-2022 14:00-0400 Body weight 114.76 kg Glenna Scally Other [facility] Other 04-26-2022 14:00-0500 Body height 165.1 cm Glenna Scally Other [facility] Other 04-26-2022 14:00-0500 Body mass index (BMI) [Ratio] 42.3 kg/m2 Glenna Scally Other [facility] Other 04-26-2022 14:00-0500 Body weight 115.31 kg Glenna Scally Other [facility] Other 03-14-2022 14:00-0500 Body height 165.1 cm Glenna Scally Other [facility] Other 03-14-2022 14:00-0500 Body mass index (BMI) [Ratio] 43.13 kg/m2 Glenna Scally Other [facility] Other 03-14-2022 14:00-0500 Body weight 117.57 kg Glenna Scally Other [facility] Other 02-16-2022 14:00-0400 Body height 165.1 cm Glenna Scally Other [facility] Other 02-16-2022 14:00-0400 Body mass index (BMI) [Ratio] 41.18 kg/m2 Glenna Scally Other [facility] Other 02-16-2022 14:00-0400 Body weight 112.27 kg Glenna Scally Other [facility] Other 02-16-2022 14:00-0400 Diastolic blood pressure 99 mm[Hg] Glenna Scally Other [facility] Other 02-16-2022 14:00-0400 Respiratory rate 18 /min Glenna Scally Other [facility] Other 02-16-2022 14:00-0400 SaO2% (BldA) [Mass fraction] 97 % Glenna Scally Other [facility] Other 02-16-2022 14:00-0400 Systolic blood pressure 141 mm[Hg] Glenna Scally Other [facility] Other 09-27-2021 14:00-0400 Body height 165.1 cm Glenna Scally Other [facility] Other 09-27-2021 14:00-0400 Body mass index (BMI) [Ratio] 42.01 kg/m2 Glenna Scally Other [facility] Other 09-27-2021 14:00-0400 Body weight 114.53 kg Glenna Scally Other [facility] Other 09-27-2021 14:00-0400 Diastolic blood pressure 90 mm[Hg] Glenna Scally Other [facility] Other 09-27-2021 14:00-0400 Respiratory rate 18 /min Glenna Scally Other [facility] Other 09-27-2021 14:00-0400 SaO2% (BldA) [Mass fraction] 96 % Glenna Scally Other [facility] Other 09-27-2021 14:00-0400 Systolic blood pressure 120 mm[Hg] Glenna Scally Other [facility] Other 08-17-2021 14:00-0400 Body height 165.1 cm Glenna Scally Other [facility] Other 08-17-2021 14:00-0400 Body mass index (BMI) [Ratio] 41.73 kg/m2 Glenna Scally Other [facility] Other 08-17-2021 14:00-0400 Body weight 113.76 kg Glenna Scally Other [facility] Other 08-02-2021 15:00-0400 Body height 165.1 cm Glenna Scally Other [facility] Other 08-02-2021 15:00-0400 Body mass index (BMI) [Ratio] 42.9 kg/m2 Glenna Scally Other [facility] Other 08-02-2021 15:00-0400 Body weight 116.94 kg Glenna Scally Other [facility] Other 08-02-2021 15:00-0400 Diastolic blood pressure 91 mm[Hg] Glenna Scally Other [facility] Other 08-02-2021 15:00-0400 Respiratory rate 18 /min Glenna Scally Other [facility] Other 08-02-2021 15:00-0400 SaO2% (BldA) [Mass fraction] 98 % Glenna Scally Other [facility] Other 08-02-2021 15:00-0400 Systolic blood pressure 132 mm[Hg] Glenna Scally Other [facility] Other 07-05-2021 14:30-0400 Body height 165.1 cm Glenna Scally Other [facility] Other 07-05-2021 14:30-0400 Body mass index (BMI) [Ratio] 42.6 kg/m2 Glenna Scally Other [facility] Other 07-05-2021 14:30-0400 Body weight 116.12 kg Glenna Scally Other [facility] Other 07-05-2021 14:30-0400 Diastolic blood pressure 93 mm[Hg] Glenna Scally Other [facility] Other 07-05-2021 14:30-0400 Respiratory rate 20 /min Glenna Scally Other [facility] Other 07-05-2021 14:30-0400 SaO2% (BldA) [Mass fraction] 98 % Glenna Scally Other [facility] Other 07-05-2021 14:30-0400 Systolic blood pressure 133 mm[Hg] Glenna Scally Other [facility] Other 04-11-2021 15:30-0500 Body height 165.1 cm Glenna Scally Other [facility] Other 04-11-2021 15:30-0500 Body mass index (BMI) [Ratio] 42.43 kg/m2 Glenna Scally Other [facility] Other 04-11-2021 15:30-0500 Body weight 115.67 kg Glenna Scally Other [facility] Other 04-11-2021 15:30-0500 Diastolic blood pressure 92 mm[Hg] Glenna Scally Other [facility] Other 04-11-2021 15:30-0500 Respiratory rate 20 /min Glenna Scally Other [facility] Other 04-11-2021 15:30-0500 SaO2% (BldA) [Mass fraction] 97 % Glenna Scally Other [facility] Other 04-11-2021 15:30-0500 Systolic blood pressure 136 mm[Hg] Glenna Scally Other [facility] Other Encounters Encounter Date Encounter Type Care Provider Facility Start: 01-30-2024 End: 01-30-2024 Office outpatient visit 25 minutes Sonya Mejia [employer] Work Phone: [facility] Comment on above: Primary hypertension ([facility]) (Primary Dx); Mixed hyperlipidemia ([facility]); Environmental and seasonal allergies; Gastroesophageal reflux disease, unspecified whether esophagitis present; Anxiety; Major depressive disorder with single episode, remission status unspecified ([facility]); Colon cancer screening; 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, with long-term current use of insulin, macular edema presence unspecified, unspecified laterality, unspecified proliferative retinop* ([facility]); Class 3 severe obesity due to excess calories without serious comorbidity with body mass index (BMI) of 40.0 to 44.9 in adult ([facility]); Anxiety and depression ([facility]) Start: 01-30-2024 End: 01-30-2024 ambulatory SONYA MEJIA Not Available Start: 01-30-2024 End: 01-30-2024 Bamboo flowsheet Sonya Mejia [employer] Work Phone: [facility] Start: 01-30-2024 End: 01-30-2024 Bamboo flowsheet Sonya Mejia [employer] Work Phone: [facility] Start: 01-23-2024 End: 01-24-2024 Telephone encounter Sonya Mejia [employer] Work Phone: [facility] Start: 01-22-2024 End: 01-22-2024 Clinisync Result Encounter Sonya Mejia [employer] Work Phone: [facility] Unsolicited Start: 01-22-2024 End: 01-22-2024 Clinisync Result Encounter Sonya Mejia [employer] Work Phone: [facility] Unsolicited Start: 01-22-2024 End: 01-22-2024 ambulatory [facility] Work Phone: Start: 01-22-2024 End: 01-22-2024 Patient encounter procedure [facility] Work Phone: Start: 12-17-2023 End: 12-17-2023 ambulatory [facility] Work Phone: Start: 12-17-2023 End: 12-17-2023 Patient encounter procedure [facility] Work Phone: Start: 11-26-2023 End: 11-26-2023 ambulatory [facility] Work Phone: Start: 11-26-2023 End: 11-26-2023 Patient encounter procedure [facility] Work Phone: Start: 10-15-2023 End: 10-15-2023 ambulatory SONYA JACKIE Not Available Start: 10-11-2023 End: 10-11-2023 ambulatory Sonya Timothy Mejia Work Phone: [facility] Work Phone: Start: 10-11-2023 End: 10-11-2023 Patient encounter procedure Sonya Jackie Work Phone: [facility] Work Phone: Start: 08-21-2023 End: 08-21-2023 ambulatory Glennadanish Quinones Facility:[facility] Start: 08-21-2023 End: 08-21-2023 ambulatory [facility] Work Phone: [facility] Work Phone: Start: 08-21-2023 End: 08-21-2023 Patient encounter procedure Services [facility] Work Phone: [facility] [place] Work Phone: Start: 08-21-2023 End: 08-21-2023 ambulatory [facility] Work Phone: [facility] Work Phone: Start: 08-21-2023 End: 08-21-2023 Patient encounter procedure [facility] Work Phone: [facility] Work Phone: Start: 08-07-2023 End: 08-07-2023 ambulatory JESSICA OWENS Facility:[facility] Start: 08-07-2023 End: 08-07-2023 Patient encounter procedure Jason Ch MD Work Phone: Ophthalmology Comment on above: Type 2 diabetes marti itus with both eyes affected 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, unspecified whether nursing home insulin use (HCC) (Primary Dx); 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, bilateral; Nuclear sclerotic cataract, bilateral Start: 06-26-2023 End: 06-26-2023 Patient encounter procedure Services [facility] Work Phone: [facility] Work Phone: Start: 06-07-2023 End: 06-07-2023 ambulatory SONYA EMANIHHOLZ Not Available Start: 06-07-2023 Bamboo flowsheet Sonya Aichholz [employer] Work Phone: [facility] Start: 06-07-2023 Bamboo flowsheet Sonya Aichholz [employer] Work Phone: [facility] Start: 06-07-2023 End: 06-07-2023 Patient encounter procedure Sonya Aichholz [employer] Work Phone: [facility] Comment on [...] in adult (CMS/HCC); Anxiety and depression (CMS/HCC); 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); Colon cancer screening Start: 05-28-2023 End: 05-29-2023 ambulatory Services [facility] Facility:[facility] Start: 05-28-2023 Non-patient / Non-visit Servic es [facility] Work Phone: [facility] Work Phone: Start: 05-28-2023 End: 05-28-2023 ambulatory Services [facility] Work Phone: [facility] Work Phone: Start: 05-28-2023 End: 05-28-2023 Discharged Recurring Services [facility] Work Phone: [facility] Work Phone: Start: 05-24-2023 Refill Sonya Jackie [employer] Work Phone: [facility] Comment on above: Mixed hyperlipidemia (CMS/HCC) (Primary Dx) Start: 04-02-2023 End: 04-02-2023 ambulatory SONYA AICHHOLZ Not Available Start: 02-19-2023 (DM) Diabetes Glenna Negrete [facility] Start: 02-19-2023 End: 02-19-2023 ambulatory Glenna Quinones Other [facility] Other Start: 02-05-2023 End: 02-05-2023 ambulatory Glenna Quinones Other [facility] Other Start: 02-05-2023 Telephone encounter Glenna manzano [facility] Start: 01-31-2023 End: 01-31-2023 ambulatory GLENDY PÉREZ Facility:[facility] Start: 01-16-2023 End: 01-16-2023 ambulatory Glenna Quinones Other [facility] Other Start: 01-16-2023 Nursing evaluation o f patient and report [facility] Start: 12-14-2022 End: 12-14-2022 ambulatory Glenna Quinones Other [facility] Other Start: 12-14-2022 Telephone encounter Glenna manzano [facility] Start: 12-11-2022 End: 12-11-2022 ambulatory Glenna Quinones Other [facility] Other Start: 12-11-2022 Telephone encounter Glenna manzano [facility] Start: 12-06-2022 End: 12-06-2022 ambulatory Mark Gramajo Facility:[facility] Start: 12-06-2022 End: 12-06-2022 ambulatory [facility] Work Phone: [facility] Work Phone: Start: 12-06-2022 End: 12-06-2022 Patient encounter procedure [facility] Work Phone: [facility] Work Phone: Start: 12-04-2022 End: 12-04-2022 ambulatory Mark Gramajo Facility:[facility] Start: 12-04-2022 End: 12-04-2022 Patient encounter procedure [facility] Work Phone: [facility] [place] Work Phone: Start: 11-21-2022 (DM) Diabetes Glenna Negrete [facility] Start: 11-21-2022 End: 11-21-2022 ambulatory Glenna Quinones Other [facility] Other Start: 11-21-2022 Registered Recurring Services [facility] Work Phone: [facility] Work Phone: Start: 11-20-2022 End: 11-20-2022 ambulatory Mark Gramajo Other [facility] Other Start: 11-20-2022 Office outpatient ne w 30 minutes [facility] Start: 10-27-2022 End: 10-27-2022 ambulatory Glenna Quinones Other [facility] Other Start: 10-27-2022 Telephone encounter Glenna [place]osa [place] [facility] Start: 10-17-2022 End: 10-17-2022 ambulatory Glenna Quinones Other [facility] Other Start: 10-17-2022 Nursing evaluation o f patient and report Glenna Quinones [facility] Start: 10-10-2022 End: 10-10-2022 ambulatory Glenna Quinones Other [facility] Other Start: 10-10-2022 Telephone encounter Glenna wallaces [facility] Start: 09-08-2022 ambulatory CLASSIFICATION OFFICER SONYA JACKIE Facil ity:[facility] Start: 08-30-2022 (DM) Diabetes Glenna [facility] Start: 08-30-2022 End: 08-30-2022 ambulatory Glenna Quinones Other [facility] Other Start: 08-11-2022 End: 08-12-2022 ambulatory CLASSIFICATION OFFICER SONYA JACKIE Facility:[facility] Start: 08-07-2022 End: 08-07-2022 ambulatory KAYA PATEL Facility:[facility] Start: 08-04-2022 End: 08-05-2022 ambulatory CLASSIFICATION OFFICER SONYA AICHHOLZ Facility:[facility] Start: 07-19-2022 Registered Recurring Sonya tang Work Phone: [facility] Work Phone: Start: 07-19-2022 Nursing evaluation o f patient and report [facility] Start: 07-19-2022 End: 07-19-2022 ambulatory Sonya Mejia Work Phone: [facility] Work Phone: Start: 07-19-2022 End: 07-19-2022 Patient encounter procedure Sonya Mejia Work Phone: [facility] [place] Work Phone: Start: 07-11-2022 End: 07-11-2022 ambulatory Glenna Sterling[facility] Other [facility] Other Start: 07-11-2022 Telephone encounter Glenna Joni manzano [facility] Start: 06-16-2022 End: 06-16-2022 ambulatory Glenna Scally Other [facility] Other Start: 06-16-2022 Telephone encounter Glenna [facility] [place] [facility] Start: 06-09-2022 End: 06-09-2022 ambulatory Glenna Scally Other [facility] Other Start: 06-09-2022 Telephone encounter Glenna [facility] [place] [facility] Start: 04-26-2022 End: 04-26-2022 ambulatory Glenna Scally Other [facility] Other Start: 04-26-2022 Nursing evaluation o f patient and report Glenna [facility] Start: 03-14-2022 End: 03-14-2022 ambulatory Glenna Scally Other [facility] Other Start: 03-14-2022 Nursing evaluation o f patient and report Glenna [facility] Start: 02-16-2022 (DM) Diabetes [facility] Start: 02-16-2022 End: 02-16-2022 ambulatory Glenna Scally Other [facility] Other Start: 01-31-2022 End: 01-31-2022 Patient encounter procedure Glendy Pérez PA-C Work Phone: Ophthalmology Comment on above: Type 2 diabetes marti itus with both eyes affected 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, unspecified whether nursing home insulin use (HCC) (Primary Dx); Nuclear sclerotic cataract, bilateral; 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, bilateral Start: 01-26-2022 End: 01-26-2022 ambulatory Glenna Scally Other [facility] Other Start: 01-26-2022 Nursing evaluation o f patient and report [facility] Start: 09-27-2021 (DM) Diabetes Glennajeff Fryania [facility] Start: 09-27-2021 End: 09-27-2021 ambulatory Glenna Scally Other [facility] Other Start: 08-26-2021 End: 08-26-2021 ambulatory Glenna Scally Other [facility] Other Start: 08-26-2021 Telephone encounter Glenna [facility]osa [place] [facility] Start: 08-25-2021 End: 08-25-2021 ambulatory Glenna Scally Other [facility] Other Start: 08-25-2021 Telephone encounter Glennajeff Quinones [facility] [place] [facility] Start: 08-17-2021 End: 08-17-2021 ambulatory Glenna Sterling[facility] Other [facility] Other Start: 08-17-2021 Nursing evaluation o f patient and report [facility] Start: 08-03-2021 End: 08-03-2021 ambulatory Glenna Scally Other [facility] Other Start: 08-03-2021 Telephone encounter Glenna Scally [facility] [place] [facility] Start: 08-02-2021 (DM) Diabetes Glenna Scally [facility] Start: 08-02-2021 End: 08-02-2021 ambulatory Glenna Scally Other [facility] Other Start: 08-01-2021 End: 08-01-2021 ambulatory Glenna Scally Other [facility] Other Start: 08-01-2021 Telephone encounter Glenna Scally [facility] [facility] Start: 07-18-2021 End: 07-18-2021 ambulatory Glenna Scally Other [facility] Other Start: 07-18-2021 Telephone encounter Glenna Scally [facility] [place] [facility] Start: 07-05-2021 (DM) Diabetes Glenna Scally [facility] Start: 07-05-2021 End: 07-05-2021 ambulatory Glenna Scally Other [facility] Other Start: 07-05-2021 Telephone encounter Glenna Scally [facility] [place] [facility] Start: 06-07-2021 End: 06-07-2021 ambulatory Glenna Scally Other [facility] Other Start: 06-07-2021 Telephone encounter Glenna Scally [facility] [place] [facility] Start: 06-06-2021 End: 06-06-2021 ambulatory Glenna Scally Other [facility] Other Start: 06-06-2021 Telephone encounter Glenna Scally [facility] [place] [facility] Start: 05-19-2021 End: 05-19-2021 ambulatory Glenna Sterling[facility] Other [facility] Other Start: 05-19-2021 Telephone encounter Glenna Sterling[facility] Start: 05-10-2021 End: 05-10-2021 ambulatory Glenan Scally Other [facility] Other Start: 05-10-2021 Telephone encounter Glenna Scally [facility]a [facility] Start: 04-27-2021 End: 04-27-2021 ambulatory Glenna Scally Other [facility] Other Start: 04-27-2021 Telephone encounter Glenna Sterlingly She[facility] Start: 04-12-2021 End: 04-12-2021 ambulatory Glenna Sterlingly Other [facility] Other Start: 04-12-2021 Telephone encounter Glenna Sterlingly Sheila [facility] Start: 04-11-2021 (DM) Diabetes Glenna [facility] Start: 04-11-2021 End: 04-11-2021 ambulatory Glenna Sterlingly Other [facility] Other Start: 03-14-2021 End: 03-14-2021 ambulatory Glenna Sterlingly Other [facility] Other Start: 03-14-2021 Telephone encounter Glenna Sterlingly She[facility] Start: 09-06-2020 End: 09-06-2020 Patient encounter procedure [facility] Work Phone[facility] Start: 08-26-2020 Registered Recurring Services [facility] Work Phone: [facility] Start: 11-02-2019 Blood glucose normal Sonya Emani clyde Work Phone: [facility] Procedures Date Procedure Procedure Detail Performing Clinician Start: 01-22-2024 ALL CBC WITH AUTO DIFF Sonya Mejia [employer] Work Phone: Start: 01-22-2024 [facility] MICROALB CREAT RATIO RANDOM Sonya Jackie [employer] Work Phone: Start: 01-22-2024 [facility] UA (CLEAN/CATCH) MICROSCOPIC IF INDICATE Sonya Jackie [employer] Work Phone: Start: 08-07-2023 Computerized ophthalmic imaging retina Jason Ch MD Work Phone: Start: 08-06-2023 Mammography Sonya Jackie [employer] Work Phone: Start: 12-06-2022 Ultrasound elastography of liver Services [facility] Work Phone: Start: 12-04-2022 Ultrasonography of liver Services [facility] Work Phone: Start: 08-04-2022 Mammography Sonya Jackie [employer] Work Phone: Start: 01-31-2022 End: 01-31-2022 Computerized ophthalmic imaging retina Glendy Pérez PA-C Work Phone: Start: 09-06-2020 Screening mammography of bilateral breasts Services [facility] Work Phone: Start: 12-12-2019 Microscopic observation [Identifier] in Cervix by Cyto stain Sonya Mejia [employer] Work Phone: Start: 03-19-2018 History of laser assisted in situ keratomileusis S/P LASIK (laser assisted in situ keratomileusis) Glendy Pérez PA-C Work Phone: Start: 04-30-2017 End: 10-15-2023 H/O: hysterectomy History of hysterectomy for cancer Sonya Mejia [employer] Work Phone: Start: 12-11-2016 Microscopic observation [Identifier] in Cervix by Cyto stain Sonya Mejia [employer] Work Phone: Plan of Treatment Date Care Activity Detail Author Start: 08-05-2033 Urine microalbumin profile DTaP,Tdap,Td Vaccine (2 - Td or Tdap) [facility] Start: 01-21-2025 Urine screening for protein Diabetes: Urine Protein Screening [facility] Start: 12-11-2024 PAP TESTING PAP TESTING [facility] Start: 12-11-2024 Screening for malign ant neoplasm of cervix Pap Testing [facility] Start: 08-21-2024 End: 01-28-2025 OCT MACULA CIRRUS OU (BOTH EYES) OCT MACULA CIRRUS OU (BOTH EYES) OPHT Imaging Routine 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, bilateral Nuclear sclerotic cataract, bilateral 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, unspecified whether plate maker zinc insulin use (HCC) Expected: 08/21/2024, Expires: 01/28/2025 [facility] Work Phone: Comment on above: Expected: 08/21/2024 , Expires: 01/28/2025 Start: 08-06-2024 Glaucoma screening [facility] Start: 08-05-2024 Screening for malign ant neoplasm of breast Mammogram [facility] Start: 06-07-2024 Medicare Annual Well ness (AWV) Medicare Annual Wellness (AWV) [facility] Start: 05-01-2024 End: 05-01-2024 Patient encounter procedure 05/01/2024 2:00 PM EST Office Visit [facility] [address] [place] [address] Sonya Mejia NP [address] [place] [address] [facility] Start: 02-28-2024 Urine screening for protein Diabetes: Urine Protein Screening [facility] Start: 02-26-2024 Hemoglobin A1c measurement Diabetes: Hemoglobin A1C [facility] Start: 01-30-2024 End: 01-30-2024 Patient encounter procedure [facility] Comment on above: Arrived Start: 12-23-2023 Influenza vaccination Influenza Vacc ine (#1) [facility] Start: 12-01-2023 Glaucoma screening Diabetes: R etinopathy Screening [facility] Start: 10-15-2023 End: 10-15-2023 Patient encounter procedure 10/15/2023 6:00 PM EDT Office Visit [facility] [address] [place] [address] Sonya Mejia, [employer] [address] [place] [address] [facility] Start: 08-26-2023 Hemoglobin A1c measurement Diabetes: Hemoglobin A1C [facility] Start: 08-06-2023 End: 08-05-2024 MG Breast - bilateral Screening Bilateral screening mammogram Imaging Routine Encounter for screening mammogram for malignant neoplasm of breast Expected: 08/06/2023 (Approximate), Expires: 08/05/2024 [facility] Work Phone: Comment on above: Expected: 08/06/2023 (Approximate), Expires: 08/05/2024 Start: 08-05-2023 Screening for malign ant neoplasm of breast Mammogram [facility] Start: 06-07-2023 End: 06-07-2023 Patient encounter procedure [facility] Comment on above: Encounter for screen ing mammogram for malignant neoplasm of breast (Primary Dx) Start: 04-23-2023 Behavioral Health Screening Behavioral Health Screening [facility] Start: 02-15-2023 End: 07-25-2023 OCT MACULA CIRRUS OU (BOTH EYES) OCT MACULA CIRRUS OU (BOTH EYES) OPHT Imaging Routine 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, unspecified whether plate maker zinc insulin use (HCC) Nuclear sclerotic cataract, bilateral 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, bilateral Expected: 02/15/2023, Expires: 07/25/2023 [facility] Work Phone: Comment on above: Expected: 02/15/2023 , Expires: 07/25/2023 Start: 01-31-2023 Hepatitis C antibody , confirmatory test DILATED RETINAL EXAM [facility] Start: 12-11-2022 Screening for malign ant neoplasm of cervix [facility] Start: 12-06-2022 [facility] Start: 2022 Screening for malign ant neoplasm of colon [facility] Start: 12-12-2021 COVID-19 VACCINE (4 - Booster for Blayne series) COVID-19 VACCINE (4 - Booster for Blayne series) [facility] Start: 04-23-2021 DEPRESSION ASSESSMENT DEPRESSION ASS ESSMENT [facility] Start: 12-12-2019 Screening for malign ant neoplasm of cervix [facility] Start: 08-24-2019 Hepatitis B screening URINE ALBUMIN:CREATININE RATIO [facility] Start: 2017 Mammography MAMMOGRAM [facility] Start: 2017 Screening for malign ant neoplasm of breast Mammogram Screening [facility] Start: 2007 HPV TESTING HPV TESTING [facility] Start: 2007 Screening for malign ant neoplasm of cervix [facility] Start: 1996 Hepatitis B Vaccine (1 of 3 - 19+ 3-dose series) Hepatitis B Vaccine (1 of 3 - 19+ 3-dose series) [facility] Start: 1996 Urine microalbumin profile DTAP,TDAP,TD (1 - Tdap) [facility] Start: 1996 Urine screening for protein Diabetes: Urine Protein Screening [facility] Start: 1995 ANNUAL PCP TEAM RU[employer]ER [employer] REPAIRER ADRIENNE DISEASE VISIT ANNUAL PCP TEAM CHRONIC DISEASE VISIT [facility] Start: 1995 BP CONTROLLED (<130/80) BP CONTROLLE D (<130/80) [facility] Start: 1995 Hepatitis B surface antibody level LDL CHOLESTEROL [facility] Start: 1995 HEPATITIS C SCREENING HEPATITIS C [facility] Start: 1995 Hepatitis C screening Hepatitis C [facility] Start: 1995 HIV SCREENING HIV SCREENING [facility] Start: 1995 HIV screening HIV Screening [facility] Start: 1987 3 comp foot exam completed DIABETIC FOOT EXAM [facility] Start: 1987 Diabetic foot examination Diabetic Foot Exam [facility] Start: 1987 Glaucoma screening Diabetes: R etinopathy Screening [facility] Start: 1983 PNEUMOCOCCAL (1 - PCV) PNEUMOCOCCAL (1 - PCV) [facility] Start: 1983 Pneumococcal vaccination Pneum ococcal Vaccine (1 of 2 - PCV) [facility] Start: 1982 Hemoglobin A1c measurement HbA1C [facility] Start: 1982 Hemoglobin A1c/Hemoglobin.total in Blood HBA1C [facility] Start: 1977 Hemoglobin A1c measurement Diabetes: Hemoglobin A1C [facility] Start: 1977 HEPATITIS B (1 of 3 - 3-dose series) HEPATITIS B (1 of 3 - 3-dose series) [facility] Start: 1977 Medicare Annual Well ness (AWV) Medicare Annual Wellness (AWV) [facility] Start: 1977 Screening for malign ant neoplasm of colon [facility] Alpha 1 antitrypsin [Mass/volume] in Serum or Plasma [facility] Alpha 1 antitrypsin phenotyping [Identifier] in Serum or Plasma by Immunofixation [facility] Elastase.pancreatic [Mass/mass] in Stool [facility] Hepatitis C virus Ig G Ab [Presence] in Serum or Plasma by Immunoassay [facility] Noninvasive colorect al cancer DNA and occult blood screening [Presence] in Stool Cologuard colon cancer screening Lab Routine Colon cancer screening Ordered: 06/07/2023 [facility] Comment on above: Ordered: 06/07/2023 [facility] Immunizations Immunization Date Immunization Notes Care Provider Erika ricketts 08-06-2023 tetanus toxoid, redu [place] diphtheria toxoid, and acellular pertussis vaccine, adsorbed Sonya Aichholz HEAVY LIFT RIGGER Work Phone: [facility] 02-08-2023 influenza, injectabl e, quadrivalent, preservative free Sonya Aichholz [employer]AV[employer] L[employer] RIGGER Work Phone: [facility] 02-08-2023 influenza virus vaccine, unspecified formulation Sonya Aichholz [employer]AV[employer] L[employer] RIGGER Work Phone: [facility] 01-11-2022 influenza, injectabl e, quadrivalent, preservative free Sonya Aichholz HEAVY LIFT RIGGER Work Phone: [facility] 01-15-2021 influenza, injectabl e, quadrivalent, preservative free Sonya Aichholz HEAVY LIFT RIGGER Work Phone: [facility] 07-02-2020 COVID-19 Vaccine Blayne - Documentation Purposes Only Glenna Scally Other [facility] 12-26-2019 influenza, injectabl e, quadrivalent, preservative free Sonya Aichholz [employer]AV[employer] L[employer] RIGGER Work Phone: [facility] 01-08-2019 influenza, injectabl e, quadrivalent, preservative free Glendy Baraona PA-C Work Phone: [facility] 12-31-2017 influenza, injectabl e, quadrivalent, preservative free Glendy Baraona PA-C Work Phone: [facility] 12-19-2016 influenza, injectabl e, quadrivalent, preservative free Sonya Aichholz [employer]AV[employer] LIFT RIGGER Work Phone: [facility] 12-19-2016 influenza, seasonal, injectable Glendy Baraona PA-C Work Phone: [facility] 12-11-2015 influenza, seasonal, injectable, preservative free Sonya Aichholz HEAVY LIFT RIGGER Work Phone: [facility] 11-26-2014 influenza, seasonal, injectable, preservative free Sonya Aichholz HEAVY LIFT RIGGER Work Phone: [facility] Healthcare Payers Date Payer Category Payer Medicaid [id number] 2019 Medicare [id number] 2019 Self-pay [id number] 1975 Unknown [id number] 2.16.84 [id number] 1977 Unknown [id number] 2.16.84 [id number] 1977 Unknown [id number] 2.16.84 [id number] 1977 Unknown [id number] 2.16.84 [id number] 1977 Unknown [id number] 2.16.84 [id number] 1977 Unknown [id number] 2.16.84 [id number] 1977 Unknown [id number] 2.16.84 [id number] 1977 Unknown [id number] 2.16.840 .[id number] 1959 Medicaid [id number] 1957 Medicare [id number] 2.1 [id number] 1959 Self-pay [id number] 1959 Unknown [id number] Unknown [id number] Unknown [id number] [id number] Unknown [id number] 2.16.8 [id number] Unknown [id number] 2.16.8 [id number] Unknown [id number] 2.16.8 [id number] Social History Date Type Detail Facility Start: 11-02-2019 End: 01-30-2024 Tobacco smoking status NHIS Ex-smoker (finding) [facility] Start: 1975 Sex Assigned At Female [facility] Start: 04-01-2023 End: 06-07-2023 Sex Assigned At [facility] Start: 04-23-2002 End: 04-23-2012 History of tobacco use Current smoker [facility] Start: 04-23-2002 End: 04-23-2012 History of tobacco use Cigarette Smoker [facility] Start: 05-15-2017 End: 01-30-2024 Tobacco use and exposure Smokeless tobacco non-user [facility] Start: 01-31-2022 End: 08-07-2023 Alcohol intake Current non-drinker of alcohol (finding) [facility] Start: 1975 Sex Assigned At Not on file C [facility] Start: 12-26-2021 End: 01-05-2022 Exposure to SARS-CoV-2 (event) Not sure [facility] Start: 04-01-2023 End: 04-02-2023 Cigarettes smoked current [...] Equipment Origin al Text Equipment Identifier Dates [id number], [id number] Start: 10-20-2019 Gas [employer] System [id number] [id number] - [id number] Start: 08-09-2016 Gas [employer]span [employer] System [id number] 125gm - [id number] Start: 10-10-2017 Goals Date Patient Goal Desired Activity /State Clinical Notes 08-02-2016 to 01-30-2024 Sonya Mejia NP - 01/30/2024 3:28 PM EDSoto Mejia NP - 01/30/2024 3:28 PM Presley Mejia NP - 01/30/2024 3:27 PM EDSoto Mejia NP - 01/30/2024 3:27 PM EDT Note Date & Type Note Facility 01-30-2024 History of Presen t illness Narrative Associated Problem(s): HLD (hyperlipidemia) (CMS/[facility]) Reviewed labs, trigs elevated likely secondary to her uncontrolled diabetes Associated Problem(s): Anxiety and depression (CMS/HCC) Continue current meds Associated Problem(s): Type 2 diabetes mellitus, with long-term current use of insulin (CMS/[facility]) Check blood sugars daily, notify if <70 [...] diabetic provider Reviewed labs Associated Problem(s): Hypertension (CMS/[facility]) At goal no med dose change Reviewed [...] Diagnosis Date Adenocarcinoma of endometrium, stage 1 ([facility]) 04/30/2017 Total Hysterectomy Anxiety and depression ([facility]) 06/07/2023 Class 3 severe obesity due to excess calories without serious comorbidity with body mass index (BMI) of 40.0 to 44.9 in adult ([facility]) 04/02/2023 Diverticulitis of intestine without perforation or abscess without bleeding, unspecified part of intestinal tract 06/07/2023 Fatty liver History of hysterectomy for cancer 04/30/2017 HLD (hyperlipidemia) ([facility]) 05/24/2023 Learning disabilities 06/07/2023 Narcotic abuse in remission ([facility]) 06/07/2023 Partial blindness 06/07/2023 Type 2 diabetes mellitus with diabetic retinopathy ([facility]) 06/07/2023 without macular edema, unspecified retinopathy severity Type 2 diabetes mellitus, with long-term current use of insulin ([facility]) 04/02/2023 Past Surgical History: Procedure Laterality Date [...] Items Addressed This Visit Major depressive disorder ([facility]) Relevant Medications sertraline (Zoloft) 50 MG tablet 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 disease) Cont PPI Recommend weight loss Relevant Medications omeprazole (PriLOSEC) [address] capsule Hypertension ([facility]) - Primary At goal no med dose change Reviewed labs Relevant Medications lisinopril 40 MG tablet Type 2 diabetes mellitus, with long-term current use of insulin ([facility]) Check blood sugars daily, notify if <70 [...] (BMI) of 40.0 to 44.9 in adult ([facility]) HLD (hyperlipidemia) ([facility]) Reviewed labs, trigs elevated likely secondary to her uncontrolled diabetes Relevant Medications atorvastatin (Lipitor) 80 MG tablet Anxiety and depression ([facility]) Continue current meds Colon cancer screening Relevant Orders Ambulatory referral to General Surgery Environmental and seasonal allergies Relevant Medications loratadine (Claritin) 10 MG tablet Other Visit Diagnoses Anxiety Relevant Medications sertraline (Zoloft) 50 MG tablet documented in this encounter [facility] 01-23-2024 Telephone encounter Note Please tell pt that her labs all look good, with exception of Vit d being slightly low, does she currently take a vit d supplement? If not I would like to start her on one. Let me know and then I can send something in [place] [facility] 01-23-2024 Miscellaneous Notes Please tell pt that her labs all look good, with exception of Vit d being slightly low, does she currently take a vit d supplement? If not I would like to start her on one. Let me know and then I can send something in [place] documented in this encounter [facility] 08-07-2023 Note HNO ID: [id number] Author: JASON CH MD Service: ? Author [...] BS control and close follow up with PCP/refractory specialist - Exam with no NVI or NVD, [...] agree with all of its relevant components. [facility] 08-07-2023 History of Presen t illness [...] BS control and close follow up with PCP/refractory specialist - Exam with no NVI or NVD, [...] its relevant components. documented in this encounter [facility] 06-07-2023 History of Presen t illness Narrative [...] at goal, A1c 10%, continue care with [facility] Check blood sugars daily, notify if [...] Diagnosis Date Adenocarcinoma of endometrium, stage 1 ([facility]) 04/30/2017 Total Hysterectomy Anxiety and depression ([facility]) 06/07/2023 Class 3 severe obesity due to excess calories without serious comorbidity with body mass index (BMI) of 40.0 to 44.9 in adult ([facility]) 04/02/2023 Diverticulitis of intestine without perforation or abscess without bleeding, unspecified part of intestinal tract 06/07/2023 Fatty liver History of hysterectomy for cancer 04/30/2017 HLD (hyperlipidemia) ([facility]) 05/24/2023 Learning disabilities 06/07/2023 Narcotic abuse in remission ([facility]) 06/07/2023 Partial blindness 06/07/2023 Type 2 diabetes mellitus with diabetic retinopathy ([facility]) 06/07/2023 without macular edema, unspecified retinopathy severity Type 2 diabetes mellitus, with long-term current use of insulin (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 Author Type: Physician Digital Forensic Examiner Type: Progress Notes Filed: 01/31/2023 12:24 PM [...] BS control and close follow up with PCP/refractory specialist - Remains stable on exam and imaging [...] noted below, or sooner if new symptoms develop.[facility]09-26-2023 Evaluation note* Encounter Date Diagnosis Assessment [...] spent on education by Rosie CLARK, RN [facility] Other 08-01-2023 Evaluation note* Encounter Date Diagnosis [...] f/u with pcp BP ELEVATED TODAY Nov, FDC current use of insulin (ICD-10 - Z79.4) [...] review, fills per NR LEIGH ANN RN/ vice president of human resources. I have spent 30 minutes with this patient and over 50% of the visit was counseling done by myself, Marcela AMANDA. [facility] Other 07-31-2023 Evaluation note* Encounter Date Diagnosis [...] (ICD-10 - K59.00) Pt given miralax samples [facility] Other 07-07-2023 Evaluation note* Encounter Date Diagnosis Assessment Notes Treatment Notes Treatment Clinical Notes Oct, Type 2 diabetes mellitus with hyperglycemia (ICD-10 - E11.65) [facility] Other 06-27-2023 Evaluation note* Encounter Date Diagnosis [...] spent on education by Rosie CLARK, RN [facility] Other 06-20-2023 Evaluation note* Encounter Date Diagnosis Assessment Notes Treatment Notes Treatment Clinical Notes Sep, Type 2 diabetes mellitus with hyperglycemia (ICD-10 - E11.65) [facility] Other 05-10-2023 Evaluation note* Encounter Date Diagnosis [...] have episode of abdominal pain at the [facility], lipase was low, no suspicion of [...] well with high surveillance by our office. [facility] reviewed. Appears she has follow-up regarding [...] f/u with pcp BP ELEVATED TODAY August, FDC current use of insulin (ICD-10 - Z79.4) [...] review, fills per NR LEIGH ANN RN/ vice president of human resources. I have spent 30 minutes with this patient and over 50% of the visit was counseling done by myself, Marcela AMANDA. [facility] Other 04-01-2023 History general Narrative - Reported* Type Description Date Medical History DM 2 Medical History HYPERTENSION Medical History DEPRESSION Medical History Opioid abuse Medical History retinopathy bilateral eyes Medical History cystic lesion esophagus 07/2022 [facility] Surgical History RIGHT EYE SURGERY Surgical History LT eye surgery Surgical History hysterectomy 04/2017 Hospitalization History DKA 06/2019 Hospitalization History DKA 0 Hospitalization History [facility] 4-2 023 [facility] Other 03-29-2023 Evaluation note* Encounter Date Diagnosis [...] switched PCP providers to Sonya Hardy from [facility]. Pt seems in high spirits regarding physician. [...] spent on education by Rosie CLARK, RN [facility] Other 01-04-2023 Evaluation note* Encounter Date Diagnosis [...] denies any issues or problems with her Enris or V-Go at this time. All questions and concerns addressed. Encouraged to follow up for next appointment. 30 minutes was spent on education by Rosie CLARK, RN [facility] Other 11-22-2022 Evaluation note* Encounter Date Diagnosis [...] spent on education by Rosie CLARK, RN. [facility] Other 10-27-2022 Evaluation note* Encounter Date Diagnosis [...] present in 4 weeks for download with extension educator and myself in 8 weeks. Patient did [...] (ICD-10 - I10) f/u with pcp Jan, FDC current use of insulin (ICD-10 - Z79.4) [...] was counseling done by myself, Marcela AMANDA. [facility] Other 10-11-2022 History of Present illness Narrative* [...] control - Continue close follow up with PCP/refractory specialist - VA unchanged - OCT stable without [...] if new symptoms develop. [facility]* Encounter Date Diagnosis Assessment [...] with the patient by Heriberto Downs RN, [facility]. 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 [facility] Other 04-27-2022 Evaluation note* Encounter Date Diagnosis [...] spent on education by Rosie CLARK, RN. [facility] Other 04-13-2022 Evaluation note* Encounter Date Diagnosis Assessment Notes Treatment Notes Treatment Clinical Notes Jul, Type 2 diabetes mellitus with hyperglycemia (ICD-10 - E11.65) [facility] Other 04-12-2022 Evaluation note* Encounter Date Diagnosis [...] weekly, x 1 episode of emesis after anguillan food. If tolerating without further episodes of emesis can increase at DSME visit to 0.5 mg weekly. Discuss sick day management with patient, needs further review. Hold on SGLT2i_ _ patient with history of EUGLYCEMIC DKA IN THE PAST. _ __ _Blood glucoses have remained elevated, but seems to have increased vigilence. 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 [facility] Other 03-15-2022 Evaluation note* Encounter Date Diagnosis [...] (ICD-10 - I10) f/u with pcp Jun, FDC current use of insulin (ICD-10 - Z79.4) [...] was counseling done by myself, Marcela AMANDA. 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 [facility] Other 11-22-2021 Evaluation note* Encounter Date Diagnosis Assessment Notes Treatment Notes Treatment Clinical Notes Feb, Type 2 diabetes mellitus with hyperglycemia (ICD-10 - E11.65) [facility] Other [id number] History of Past illness Narrative* Problem Noted Date Resolved Date Diabetes 08/02/2016 documented as of this encounter (statuses as of 01/31/2022) [place] [id number] History of Past illness Narrative* Problem Noted Date Diagnosed Date Resolved Date Diabetes 08/02/2016 documented as of this encounter (statuses as of 08/08/2023) [facility] noteNo assessment information availableBucyrus Community [facility] CtrEvaluation noteNort [facility] Other Evaluation noteNo InformationNort [employer] Other Evaluation note* Diagnosis 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, unspecified whether plate maker zinc insulin use ([facility])- Primary Nuclear sclerotic cataract, bilateral 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, bilateral [facility] [place] [facility]* Diagnosis Mixed hyperlipidemia ([facility])- Primary Mixed hyperlipidemia documented in this encounter [facility] HealthcareEvaluation note* Diagnosis Encounter for subsequent annual wellness visit (AWV) in Medicare patient- Primary Encounter for screening mammogram for malignant neoplasm of breast Primary hypertension ([facility]) Unspecified essential hypertension Gastroesophageal reflux disease, unspecified whether esophagitis present 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, with long-term current use of insulin, macular edema presence unspecified, unspecified laterality, unspecified proliferative retinop* (CMS/HCC) Class 3 severe obesity due to excess calories without serious comorbidity with body mass index (BMI) of 40.0 to 44.9 in adult (CMS/HCC) Anxiety and depression (CMS/HCC) 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) Colon cancer screening Special screening for malignant neoplasms, colon documented in this encounter [facility] HealthcareEvaluation note* Diagnosis 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, unspecified whether nursing home insulin use (HCC)- Primary 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, bilateral Nuclear sclerotic cataract, bilateral [facility] Diagnosis Onset Date Resolution Status Type 2 diabetes mellitus with hyperglycemia acute [facility] Work Phone: Evaluation note* Diagnosis Onset Date Resolution Status Type 2 diabetes mellitus with hyperglycemia acute ADHD acute BMI 40.0-44.9, adult acute Fatty liver acute 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 disease) acute 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 Noncompliance with medication regimen acute Retinopathy of both eyes acu te Type 2 diabetes mellitus with hyperglycemia acute Weight gain acute [facility] Work Phone: evaluation note* Diagnosis Onset Date Resolution Status ADHD acute BMI 40.0-44.9, adult acute Fatty liver acute 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 disease) acute FDC current use of insulin acute Noncompliance with medication regimen acute Retinopathy of both eyes acu te Type 2 diabetes mellitus with hyperglycemia acute Weight gain acute Type 2 diabetes mellitus with hyperglycemia acute [facility] [facility] Work Phone: Evaluation note* Diagnosis Onset Date Resolution Status Type 2 diabetes mellitus with hyperglycemia acute ADHD acute BMI 40.0-44.9, adult acute Fatty liver acute 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 disease) acute 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 Noncompliance with medication regimen acute Retinopathy of both eyes acu te Type 2 diabetes mellitus with hyperglycemia acute Weight gain acute Type 2 diabetes mellitus with hyperglycemia acute [facility] Work Phone: Evaluation note* Diagnosis Primary hypertension (CMS/HCC)- Primary Unspecified essential hypertension Mixed hyperlipidemia ([facility]) Mixed hyperlipidemia Environmental and seasonal allergies Gastroesophageal reflux disease, unspecified whether esophagitis present Anxiety Anxiety state, unspecified Major depressive disorder with single episode, remission status unspecified ([facility]) Colon cancer screening Special screening for malignant neoplasms, colon 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, with long-term current use of insulin, macular edema presence unspecified, unspecified laterality, unspecified proliferative retinop* ([facility]) Class 3 severe obesity due to excess [...] History DKA 06/2019 Hospitalization History DKA 0 [facility] [employer] Other History general Narrative - [facility] [employer] Other Reason for referral (narrative)* Consultation (Routine) - Pending Review Specialty Diagnoses / Procedures Referred By Contnely t Referred To Contact General Surgery Diagnoses Colon cancer screening Procedures MA OFFICE/OUTPATIENT [facility] 60 MINUTES Sonya Mejia NP [address] [place] [address] Aram Casey DO [address] [facility] [address] [place] [address] Referral ID Status Reason Start Date Expiration Date Visits Requested Visits Authorized [id number] Pending Review Specialty Services Required 01/30/2024 07/28/2024 1 1 [facility] Healthcare Chief Complaint and Reason for Visit [...] adult Fatty liver 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 disease) 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 Noncompliance with medication regimen Retinopathy of both eyes Type 2 diabetes mellitus with hyperglycemia Weight gain Chief Complaint DMN f/u / meter E11.65 DL per DS Reason for Visit ADHD BMI 40.0-44.9, adult Fatty liver 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 disease) [facility] current use of insulin Noncompliance with medication regimen Retinopathy of both eyes Type 2 diabetes mellitus with hyperglycemia Weight gain Type 2 diabetes mellitus with hyperglycemia Chief Complaint DL per DS DMN f/u / meter Reason for Visit Type 2 diabetes marti itus with hyperglycemia ADHD BMI 40.0-44.9, adult Fatty liver 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 disease) 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 Noncompliance with medication regimen Retinopathy of both eyes Type 2 diabetes mellitus with hyperglycemia Weight gain Chief Complaint DL per DS DMN f/u / meter 2 week DL Reason for Visit Type 2 diabetes marti itus with hyperglycemia ADHD BMI 40.0-44.9, adult Fatty liver 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 disease) [facility] current use of insulin Noncompliance with medication regimen Retinopathy of both eyes Type 2 diabetes mellitus with hyperglycemia Weight gain Type 2 diabetes mellitus with hyperglycemia Chief Complaint DMN f/u / meter 2 week DL DMN f/u-METER Reason for Visit ADHD BMI 40.0-44.9, adult Fatty liver 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 disease) 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 Noncompliance with medication [...] 2 Callus of toe (L84) Referral Organization [facility] Referring Provider First Name Glenna Referring Provider Last Name Joni Referring Provider Specialty Nurse Pract itioner Referred Organization Podiatry Referred Address [address] [facility],[place] [address],[place], [place],[address] Referred Provider Specialty Podiatry - S urgical [...] or prosecute any alcohol or drug abuse patient.[facility] the event this information is protected by the Federal Confidentiality of Alcohol and Drug Abuse Patient Records regulations: The Federal rules restrict any use of the information to criminally investigate or prosecute any alcohol or drug abuse patient.[facility] Care Teams (unrecognized sec tion and content) Team Status: Active Member Role Status Dates Sonya Mejia Primary Care Provider Active Team Status: Inactive Member Role Status Dates Services Family [facility] Primary Care Provider Active Start: May 28, 2023 End: May 28, 2023 Mariam Beyer APRN Attending Provider Active Start: May 28, 2023 End: May 28, 2023 Funeral Service Practitioner/Embalmer Relationship Specialty Start Date End Date Jessica Owens MD [address] [place] [address] PCP - General Family Medicine 06/07/18 Team Status: Active Member Role Status Dates [facility] Primary Care Provider Active Mariam Beyer , [employer] Attending Provider Active Team Status: Inactive Member Role Status Dates Sonya Timothy Mejia Primary Care Provider Active Glenna Quinones , [employer]ICING [employer] Attending Provider Active Team Status: Inactive Member Role Status Dates Sonya Timothy Mejia Primary Care Provider Active Mark Gramajo [employer] Attending Provider Active Funeral Service Practitioner/Embalmer Relationship Specialty Start Date End Date Abad Garcia MD PCP - General Family Medicine 11/13/22 Sonya Mejia NP [address] [place] [phone] Referring Physician Nurse Practitioner 11/13/22 Funeral Service Practitioner/Embalmer Relationship Specialty Start Date End Date Abad Garcia MD [address] [place] [phone] PCP - General Family Medicine 06/07/23 Sonya Mejia NP [address] [place] [phone] Referring Physician Nurse Practitioner 11/13/22 Sonya Mejia NP [address] [place] [phone] Nurse Practitioner Family Medicine 06/07/23 Funeral Service Practitioner/Embalmer Relationship Specialty Start Date End Date Abad Garcia MD [address] [place] [phone] PCP - General Family Medicine 06/07/23 Sonya Mejia NP [address] [place] [phone] Referring Physician Nurse Practitioner 11/13/22 Sonya Mejia NP [address] [place] [phone] Nurse Practitioner Family Medicine 06/07/23 Funeral Service Practitioner/Embalmer Relationship Specialty Start Date End Date Jessica Owens MD [address] [place] [address] PCP - General Family Medicine 06/07/18 Team [...] January 22, 2024 End: January 22, 2024 Funeral Service Practitioner/Embalmer Relationship Specialty Start Date End Date Abad Garcia MD [address] [place] [id number] PCP - General Family Medicine 06/07/23 Sonya Mejia NP [address] [place] [address] Referring Physician Nurse Practitioner 11/13/22 Sonya Mejia NP [address] [place] [address] Nurse Practitioner Family Medicine 06/07/23 Funeral Service Practitioner/Embalmer Relationship Specialty Start Date End Date Abad Garcia MD [address] [place] [address] PCP - General Family Medicine 06/07/23 Sonya Mejia NP [address] [place] [phone] Referring Physician Nurse Practitioner 11/13/22 Sonya Mejia NP [address] [place] [phone] Nurse Practitioner Family Medicine 06/07/23 Funeral Service Practitioner/Embalmer Relationship Specialty Start Date End Date Abad Garcia MD [address] [place] [phone] PCP - General Family Medicine 06/07/23 Sonya Mejia NP [address] [place] [address] Referring Physician Nurse Practitioner 11/13/22 Sonya Mejia NP [address] [place] [address] Nurse Practitioner Family Medicine 06/07/23 INFORMATION SOURCE (unrecogn ized section and content) DATE CREATED AUTHOR 09/07/2022 [facility] DATE CREATED AUTHOR AUTHOR'S ORGANIZ ATION 08/08/2023 [facility] DATE CREATED AUTHOR AUTHOR'S ORGANIZ ATION 08/23/2023 [facility] DATE CREATED AUTHOR AUTHOR'S ORGANIZ ATION 02/01/2024 [facility] EPIC Inactive Administered Medications [...] BE BASED ON THE PRIMARY CLINICAL RECORDS. [facility] [employer] [facility]. provides no warranty or guarantee of the accuracy or completeness of information in this document.
[2024-02-11 01:19] VITALS: BP 175/109; PULSE 124; PULSE 135; TEMP 36.4; O2SAT 95; BMI 41.6
[2024-02-11 01:26] LABS: Glucometer 298 mg/dL (74-106)
[2024-02-11] MEDS: SODIUM CHLORIDE 0.45 % 1,000 ML 125 ML IV (02:03)
[2024-02-11] MEDS: INSULIN ASPART 300 UNIT/3 ML PEN SUBQ ×2 (02:10→04:36)
[2024-02-11] MEDS: MORPHINE SULFATE 2 MG/ML SYRINGE IV (02:29)
[2024-02-11] MEDS: PROMETHAZINE HCL 12.5 MG in 0.9 % SODIUM CHLORIDE 50 ML 202 MG IV (02:35)
[2024-02-11] MEDS: DICYCLOMINE HCL 20 MG/2 ML VIAL IM (03:00)
[2024-02-11 03:46] VITALS: BP 128/74; PULSE 124; TEMP 36.6; O2SAT 95
[2024-02-11 04:41] LABS: Glucometer 250 mg/dL (74-106)
[2024-02-11 05:32] LABS: Hematocrit 43.1 % (36.0-48.0); Hemoglobin 14.7 g/dL (12.0-16.0); Mean Corpuscular HGB Conc 34.1 g/dL (29.9-35.2); Mean Corpuscular Hemoglobin 28.9 pg (26.7-34.0); Mean Corpuscular Volume 84.8 fL (81.0-99.0); Platelet Count 312 10^3/uL (150-450); Red Blood Count 5.08 10^6/uL (4.20-5.40); Red Cell Distribution Width 13.6 % (11.0-15.0); White Blood Count 13.8 10^3/uL (4.0-11.0)
[2024-02-11 05:41] LABS: Anion Gap 22.5; BUN Creatinine Ratio 25.9; Calcium 8.9 mg/dL (8.5-10.1); Carbon Dioxide 14.5 mmol/L (21.0-32.0); Chloride 105 mmol/L (98-107); Estimated GFR (African America >60 (>=60 mL/min/1.73m^2); Estimated GFR (Non-African Ame >60 (>=60 mL/min/1.73m^2); Glucose 274 mg/dL (74-106); Sodium 138 mmol/L (136-145)
[2024-02-11 06:18] VITALS: BP 163/85; PULSE 125; TEMP 36.6; O2SAT 95
[2024-02-11] MEDS: SODIUM CHLORIDE 0.45 % 1,000 ML 200 ML IV (07:34)
[2024-02-11 07:52] LABS: Anion Gap 26.3; Calcium 8.3 mg/dL (8.5-10.1); Carbon Dioxide 13.7 mmol/L (21.0-32.0); Chloride 104 mmol/L (98-107); Estimated GFR (African America >60 (>=60 mL/min/1.73m^2); Estimated GFR (Non-African Ame >60 (>=60 mL/min/1.73m^2); Glucose 266 mg/dL (74-106); Magnesium 1.7 mg/dL (1.8-2.4); Phosphorus 3.5 mg/dL (2.6-4.7); Sodium 140 mmol/L (136-145)
[2024-02-11 07:55] VITALS: BP 126/67; PULSE 126; TEMP 36.9; O2SAT 94
[2024-02-11] MEDS: INSULIN REGULAR IN 0.9 % NACL 100 UNIT/100 ML PLAST..BAG 5.85 UNIT IV (07:57)
[2024-02-11 08:53] LABS: Estimated Average Glucose 252 mg/dL; Glycohemoglobin A1C 10.4 % (4.5-6.2)
[2024-02-11] MEDS: OMEPRAZOLE 40 MG CAPSULE.DR PO (09:33)
[2024-02-11] MEDS: METFORMIN HCL 500 MG TABLET 1000 MG PO (09:33)
[2024-02-11] MEDS: CETIRIZINE HCL 10 MG TABLET PO (09:33)
[2024-02-11] MEDS: SERTRALINE HCL 50 MG TABLET PO (09:34)
[2024-02-11] MEDS: LISINOPRIL 20 MG TABLET 40 MG PO (09:34)
--- NOTE | 2024-02-11 10:18 | P.HP_ITS ---
HPI H&P: HPI History of Present Illness Chief complaint: DIABETIC COMPLICATION Narrative: 48 y o female with hx of T2 DM, on continuous insulin infusion ran out of her Insulin for a week due to back order/change in pharmacy after closure of [facility], presented to ED with nausea, vomiting and generalized abdominal pain. Upon evaluation in ED, patient was found to have mild DKA and was initially admitted for observation on med surg floor with plans to treat her DKA with SQ insulin instead of IV insulin. She received aggressive IV resuscitation overnight. However, he AG worsened and is now 26. Patient is subjectively feeling better and reports that she is not feeling as nausous as she was before and has not had any vomiting or abdominal pain since this morning. Patient was transferred to ICU and started on IV insulin as per DKA protocol with close monitoring of her blood glucose, serial BMP to monitor serum eletrolytes, anion gap and was changed to inpatient status as she requires higher level of care, her metabolic acidosis/DKA worsened after initial treatment and observation and is anticipated to require a minimum of 2 days of inpatient hospital stay/treatment and close monitoring to ensure she recovers fully and is not in DKA anymore. If not properly and timely treated, she is at high risk of poor outcome including as untreated DKA can be potentially life threatening. Opioid HPI Opioid Management Most Recent Pain and Opioid Data: Last Pain Scale 10 02/11/24 02:29 02/11/24 Last Pain Assessment 02/11/24 09:55 Last ED Pain Assessment 02/10/24 22:49 Last MAR Pain Assessment 02/11/24 02:29 Last ORT Total Score 3 02/11/24 01:19 02/11/24 Last ORT Risk Category Low Risk 02/11/24 01:19 02/11/24 Review of Systems ROS Status of ROS 10 or more systems reviewed and unremark able except as noted in history and below [facility] Medical History (Updated 02/11/24 @ 10:55 by Shaikh Pasquale MD) HLD (hyperlipidemia) ?E78.5 - Hyperlipidemia, unspecified (ICD-10) Obesity ?E66.9 - Obesity, unspecified (ICD-10) Depression ?F32.A - Depression, unspecified (ICD-10) Uterine cancer ?C55 - Malignant neoplasm of uterus, part unspecified (ICD-10) H/O elevated lipids ?Z86.39 - Personal history of other endocrine, nutritional and metabolic disease (ICD-10) DKA (diabetic ketoacidosis) ?E11.10 - Type 2 diabetes mellitus with ketoacidosis without coma (ICD-10) HTN (hypertension) ?I10 - Essential (primary) hypertension (ICD-10) Surgical History (Updated 02/11/24 @ 03:35 by Yessica Michaels RN) History of hysterectomy for cancer ?Z90.710 - Acquired absence of both cervix and uterus (ICD-10) Family History (Updated 02/11/24 @ 03:45 by Yessica Michaels RN) Mother Family history of cancer Family history of diabetes mellitus Family history of hypertension Father Family history of diabetes mellitus Family history of hypertension Social History (Updated 02/11/24 @ 10:53 by Shaikh Pasquale MD) Within the past year, how often did you have a drink containing alcohol: never Score interpretation: A score less than 3 is consistent with normal alcohol consumption. Smoking status: Never smoker Non-prescribed substance use: former substance user Highest level of school completed/degree received: high school graduate Little interest or pleasure in doing things: not at all Feeling down, depressed, or hopeless: not at all Meds Home Medications and Allergies Home Medications ?Medication ?Instructions ?Recorded ?Confirmed ?Type atorvastatin 80 mg tablet 80 mg PO .qhs 02/10/24 02/11/24 History insulin aspart (niacinamide) 1 - 80 unit subcut Q24H 02/10/24 02/11/24 History (U-100) 100 unit/mL subcutaneous solution (Fiasp U-100 Insulin) lisinopril 40 mg tablet 40 mg PO DAILY 02/10/24 02/10/24 History loratadine 10 mg tablet (Allergy 10 mg PO DAILY 02/10/24 02/10/24 History Relief (loratadine)) metformin 1,000 mg tablet 1,000 mg PO BID 02/10/24 02/10/24 History omeprazole 40 mg capsule,delayed 40 mg PO DAILY 02/10/24 02/10/24 History release sertraline 50 mg tablet 50 mg PO DAILY 02/10/24 02/10/24 History ondansetron 4 mg disintegrating 4 mg PO Q6H PRN nausea and 02/11/24 Rx tablet vomiting #20 tabs sub-q insulin device, 40 unit 02/11/24 02/11/24 History (V-GO 40 device) tirzepatide 10 mg/0.5 mL 10 mg subcut QWEEK 02/11/24 02/11/24 History subcutaneous pen injector (Mounjaro) Allergies Allergy/AdvReac Type Severity Reaction Status Date / Time No Known Drug Allergies Allergy Verified 02/10/24 21:35 Exam Constitutional Vital Signs, click to edit/add: Last Vital Signs Temp 98.4 F 02/11/24 07:55 Pulse 126 H 02/11/24 07:55 Resp 16 02/11/24 07:55 BP 126/67 02/11/24 07:55 Pulse Ox 94 L 02/11/24 07:55 O2 Del Method Room Air 02/11/24 07:55 Documenting provider has reviewed patient's vital signs: yes Common normals: no apparent distress and oriented x3 General appearance: cooperative and comfortable Nutritional appearance: obese HENMT Common normals: normocephalic and head/scalp atraumatic Head and scalp: normocephalic and atraumatic Eye Common normals: conjunctivae normal and no scleral icterus Conjunctiva: conjunctiva(e) normal Respiratory Common normals: normal respiratory effort and clear to auscultation bilaterally Effort & inspection: able to speak in complete sentences Auscultation: clear to auscultation bilaterally Cardio Common normals: regular rate, S1 normal heart sound and S2 normal heart sound Rate: regular rate Heart sounds: S1 normal and S2 normal GI Common normals: Normal to inspection, nondistended, normoactive bowel sounds present, soft to palpation, non-tender and no hepatosplenomegaly Palpation: soft and no hepatosplenomegaly Extremity Common normals: no clubbing, cyanosis or edema Neuro Common normals: oriented x3, moves all extremities and no focal motor deficits Psych Common normals: mental status grossly normal, denies hallucinations, denies homicidal ideation and denies suicidal ideation Results Labs Labs: Short CBC 02/10/24 02/11/24 Range/Units 21:55 05:20 WBC 11.7 H 13.8 H (4.0-11.0) 10^3/uL Hgb 15.6 14.7 (12.0-16.0) g/dL Hct 45.1 43.1 (36.0-48.0) % Plt Count 361 312 (150-450) 10^3/uL BMP 02/10/24 02/11/24 02/11/24 21:55 05:20 07:20 Sodium 136 138 140 Potassium 4.0 4.0 4.0 Chloride 101 105 104 Carbon Dioxide 17.6 L 14.5 L 13.7 L BUN 25.0 H 21.0 H 19.0 H Creatinine 0.94 0.81 0.76 Glucose 288 H 274 H 266 H Calcium 9.5 8.9 8.3 L Urine 02/10/24 Range/Units 22:55 Urine Color Lt. yellow (YELLOW) Urine Clarity Clear (CLEAR) Urine pH 6.0 (5.0-9.0) Ur Specific [place] Level 1.025 (1.005-1.025) Urine Protein Negative (NEG/TRACE) mg/dL Urine Glucose (UA) 500 A (NEGATIVE) mg/dL ABG ABG results: 02/10/24 21:55 VBG pH 7.419 VBG pCO2 28.2 L Assessment and Plan Assessment and Plan (1) DKA, type 2: Assessment and Plan: High anion gap acidosis, positive acetone with hyperglycemia. Prior hx of DKA. Patient has poorly controlled T2 DM and her home regimen needs to be adjusted. She follows with an garment patternmaker as an outpatient. She developed DKA likely because she was unable to use Insulin for a week Started on IV insulin as per DKA protocol. Needs close monitoring with serial BMP, hourly POC glucose. Qualifiers: Diabetes mellitus complication detail: without coma Qualified Code(s): E11.10 - Type 2 diabetes mellitus with ketoacidosis without coma (2) Nausea & vomiting: Assessment and Plan: Due to DKA. Improved. Advanced diet as tolerated. Qualifiers: Vomiting type: unspecified Qualified Code(s): R11.2 - Nausea with vomiting, unspecified (3) Leukocytosis: Assessment and Plan: Chronic, slightly worse than baseline. No indication of an underlying infection. Monitor. Qualifiers: Leukocytosis type: leukemoid reaction Qualified Code(s): D72.823 - Leukemoid reaction (4) HTN (hypertension): Assessment and Plan: Stable BP, monitor. C/w home medications. Qualifiers: Hypertension type: primary hypertension Qualified Code(s): I10 - Essential (primary) hypertension (5) Depression: Assessment and Plan: Stable mood. C/w home medications. Qualifiers: Depression Type: major depressive disorder Major depression recurrence: recurrent Active/Remission status: in full remission Qualified Code(s): F33.42 - Major depressive disorder, recurrent, in full remission (6) Obesity: Assessment and Plan: On Mounjaro. Recommended lifestlye measures. She is also a good candidate for Bariatric surgery. Defer to PCP to discuss Qualifiers: Obesity type: due to excess calories Obesity classification: adult class 3 (BMI >= 40) Serious obesity comorbidity presence: with serious comorbidity Body mass index: BMI 40.0-44.9 Qualified Code(s): E66.813 - Obesity, class 3; E66.01 - Morbid (severe) obesity due to excess calories; Z68.41 - Body mass index [BMI] 40.0-44.9, adult (7) HLD (hyperlipidemia): Assessment and Plan: C/w Lipitor Qualifiers: Hyperlipidemia type: unspecified Qualified Code(s): E78.5 - Hyperlipidemia, unspecified
--- NOTE | 2024-02-11 10:34 | CM.NOTE ---
Rounds made with Dr. Giordano. Dr. Giordano reviews with Tasha her medications for Diabetes and when her Photograph Editor last adjusted medications. Dr. Giordano discussed plan of care with Tasha--insulin drip and medication adjustments. Tasha verbalizes understanding.
--- NOTE | 2024-02-11 10:53 | SWNOTE1 ---
Important Message from [employer] reviewed and discussed with patient. Pt. verbalized understanding and signed the form. Original given to patient and copy placed in patient?s chart.
--- NOTE | 2024-02-11 10:53 | SWNOTE1 ---
SW met with pt to review IMM form and then discussed her medication needs with her as well. Pt voiced she was using [facility] for her insulin, but they are closing so she switched to [facility] in [place]. She voiced that [facility] is terrible and they did not have any in stock so she had to wait. She voiced that she has not tried [facility] yet, but her parents had used them in past and they were terrible. Pt lives in [place], but is not too far from [place]. SW did recommend possibly [facility] or somewhere else. She did voice that her parents will help her as she does not drive. She stated if it comes to her health her parents will go get it from wherever. She also said she has heard that [facility] is terrible as well. Pt is undecided where to go.
--- NOTE | 2024-02-11 11:07 | SWNOTE1 ---
Pt has an Shearing Machine Tender and does have some kind of pump at home.
[2024-02-11 11:28] LABS: Anion Gap 21.7; BUN Creatinine Ratio 23.4; Calcium 8.7 mg/dL (8.5-10.1); Chloride 105 mmol/L (98-107); Estimated GFR (African America >60 (>=60 mL/min/1.73m^2); Estimated GFR (Non-African Ame >60 (>=60 mL/min/1.73m^2); Glucose 210 mg/dL (74-106); Magnesium 1.6 mg/dL (1.8-2.4); Phosphorus 2.8 mg/dL (2.6-4.7); Potassium 3.7 mmol/L (3.5-5.1); Sodium 138 mmol/L (136-145)
[2024-02-11] MEDS: DEXTROSE 5 %-0.45 % SOD CHLORD 1,000 ML 150 ML IV ×2 (12:17→19:05)
[2024-02-11 15:15] LABS: Anion Gap 18.6; BUN Creatinine Ratio 21.5; Calcium 8.4 mg/dL (8.5-10.1); Carbon Dioxide 17.9 mmol/L (21.0-32.0); Chloride 104 mmol/L (98-107); Estimated GFR (African America >60 (>=60 mL/min/1.73m^2); Estimated GFR (Non-African Ame >60 (>=60 mL/min/1.73m^2); Glucose 216 mg/dL (74-106); Magnesium 1.5 mg/dL (1.8-2.4); Phosphorus 2.8 mg/dL (2.6-4.7); Potassium 3.5 mmol/L (3.5-5.1); Sodium 137 mmol/L (136-145)
[2024-02-11 15:51] VITALS: PULSE 115; TEMP 37.2
[2024-02-11] MEDS: POTASSIUM CHLORIDE 10 MEQ ER TABLET 40 MEQ PO (17:32)
[2024-02-11] MEDS: ONDANSETRON PF 4 MG/2 ML VIAL IV (17:33)
[2024-02-11 19:08] VITALS: BP 103/63; PULSE 104; TEMP 37.2; O2SAT 95
[2024-02-11 19:32] LABS: Anion Gap 15.7; BUN Creatinine Ratio 20.3; Calcium 8.8 mg/dL (8.5-10.1); Carbon Dioxide 18.7 mmol/L (21.0-32.0); Chloride 105 mmol/L (98-107); Estimated GFR (African America >60 (>=60 mL/min/1.73m^2); Estimated GFR (Non-African Ame >60 (>=60 mL/min/1.73m^2); Glucose 254 mg/dL (74-106); Magnesium 1.5 mg/dL (1.8-2.4); Phosphorus 2.6 mg/dL (2.6-4.7); Potassium 3.4 mmol/L (3.5-5.1); Sodium 136 mmol/L (136-145)
[2024-02-11] MEDS: ATORVASTATIN CALCIUM 40 MG TABLET 80 MG PO (22:54)
[2024-02-11 23:57] LABS: Carbon Dioxide 20.3 mmol/L (21.0-32.0); Chloride 106 mmol/L (98-107); Potassium 3.7 mmol/L (3.5-5.1); Sodium 136 mmol/L (136-145)
[2024-02-11 23:58] LABS: Anion Gap 13.4; Calcium 8.5 mg/dL (8.5-10.1); Estimated GFR (African America >60 (>=60 mL/min/1.73m^2); Estimated GFR (Non-African Ame >60 (>=60 mL/min/1.73m^2); Glucose 258 mg/dL (74-106); Magnesium 1.6 mg/dL (1.8-2.4); Phosphorus 2.6 mg/dL (2.6-4.7)
[2024-02-12] VITALS (7 sets, daily range): BP systolic 129–190; BP diastolic 65–102; PULSE 103–113; TEMP 36.6–37.3; O2SAT 94–98
[2024-02-12] MEDS: DEXTROSE 5 %-0.45 % SOD CHLORD 1,000 ML 150 ML IV (01:41)
[2024-02-12 03:25] LABS: BUN Creatinine Ratio 15.2; Calcium 8.9 mg/dL (8.5-10.1); Carbon Dioxide 20.8 mmol/L (21.0-32.0); Chloride 107 mmol/L (98-107); Estimated GFR (African America >60 (>=60 mL/min/1.73m^2); Estimated GFR (Non-African Ame >60 (>=60 mL/min/1.73m^2); Glucose 180 mg/dL (74-106); Magnesium 1.5 mg/dL (1.8-2.4); Potassium 3.8 mmol/L (3.5-5.1); Sodium 137 mmol/L (136-145)
[2024-02-12 07:49] LABS: Anion Gap 15.2; Calcium 8.4 mg/dL (8.5-10.1); Chloride 108 mmol/L (98-107); Estimated GFR (African America >60 (>=60 mL/min/1.73m^2); Estimated GFR (Non-African Ame >60 (>=60 mL/min/1.73m^2); Glucose 183 mg/dL (74-106); Magnesium 1.5 mg/dL (1.8-2.4); Phosphorus 2.4 mg/dL (2.6-4.7); Potassium 3.2 mmol/L (3.5-5.1); Sodium 139 mmol/L (136-145)
[2024-02-12] MEDS: INSULIN DETEMIR 300 UNIT/3 ML INSULN.PEN 25 UNIT SUBQ (07:49)
[2024-02-12] MEDS: MAGNESIUM SULFATE/D5W 1 GM/100 ML PREMIX IV (07:56)
[2024-02-12] MEDS: OMEPRAZOLE 40 MG CAPSULE.DR PO (08:00)
[2024-02-12] MEDS: SERTRALINE HCL 50 MG TABLET PO (08:00)
[2024-02-12] MEDS: CETIRIZINE HCL 10 MG TABLET PO (08:00)
[2024-02-12] MEDS: METFORMIN HCL 500 MG TABLET 1000 MG PO (08:00)
[2024-02-12] MEDS: LISINOPRIL 20 MG TABLET 40 MG PO (08:00)
[2024-02-12 08:06] LABS: Basophils Absolute Auto 0.1 10^3/uL (0.0-0.1); Basophils Percent Auto 0.4 % (0.2-2.0); Eosinophils Absolute Auto 0.1 10^3/uL (0.0-0.7); Eosinophils Percent Auto 0.4 % (0.9-7.0); Hematocrit 36.5 % (36.0-48.0); Hemoglobin 12.3 g/dL (12.0-16.0); Immature Granulocytes Abs Auto 0.04 10^3/uL (0.00-0.03); Immature Granulocytes Pct Auto 0.4 % (0.0-0.5); Lymphocytes Absolute Auto 3.8 10^3/uL (1.2-3.8); Mean Corpuscular HGB Conc 33.7 g/dL (29.9-35.2); Mean Corpuscular Hemoglobin 28.7 pg (26.7-34.0); Mean Corpuscular Volume 85.1 fL (81.0-99.0); Mean Platelet Volume 10.1 fL (9.5-13.5); Monocytes Absolute Auto 1.2 10^3/uL (0.3-0.8); Monocytes Percent Auto 10.8 % (1.7-12.0); Neutrophils Absolute Auto 6.1 10^3/uL (1.4-6.5); Platelet Count 258 10^3/uL (150-450); Red Blood Count 4.29 10^6/uL (4.20-5.40); Red Cell Distribution Width 13.8 % (11.0-15.0); White Blood Count 11.2 10^3/uL (4.0-11.0)
[2024-02-12] MEDS: POTASSIUM CHLORIDE 10 MEQ ER TABLET 40 MEQ PO (09:27)
--- NOTE | 2024-02-12 10:10 | CM.NOTE ---
Rounds made with Dr. Giordano, stop insulin drip this AM and start SQ insulin. 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 Possible discharge this afternoon if tolerates diet and BS within normal limits.
--- NOTE | 2024-02-12 10:33 | PM.IMPN1 ---
Progress Note: A&P Assessment and Plan (1) DKA, type 2: Assessment and Plan: AG closed this morning. Ordered 25 units Lantus, humalog 10 U TIDAC with sliding scale coverage every 6 hours Poorly controlled T2 DM and will need to f/u with Endocrine as outpatient to adjust her regimen. She is on continuous insulin. Advanced diet to Regular. Was on clear liquids previously. BMP at 3 pm. Qualifiers: Diabetes mellitus complication detail: without coma Qualified Code(s): E11.10 - Type 2 diabetes mellitus with ketoacidosis without coma (2) Nausea & vomiting: Assessment and Plan: Resolved. Tolerating PO diet. Qualifiers: Vomiting type: unspecified Qualified Code(s): R11.2 - Nausea with vomiting, unspecified (3) Leukocytosis: Assessment and Plan: Improved. No signs of infection. Monitor. Qualifiers: Leukocytosis type: leukemoid reaction Qualified Code(s): D72.823 - Leukemoid reaction (4) HTN (hypertension): Assessment and Plan: Well controlled C/w lisinopril Qualifiers: Hypertension type: primary hypertension Qualified Code(s): I10 - Essential (primary) hypertension (5) Depression: Assessment and Plan: Stable mood. C/w zoloft. Qualifiers: Depression Type: major depressive disorder Major depression recurrence: recurrent Active/Remission status: in full remission Qualified Code(s): F33.42 - Major depressive disorder, recurrent, in full remission (6) Obesity: Assessment and Plan: On Mounjaro. Will be a good candidate for bariatric surgery. Defer to PCP Qualifiers: Obesity type: due to excess calories Obesity classification: adult class 3 (BMI >= 40) Serious obesity comorbidity presence: with serious comorbidity Body mass index: BMI 40.0-44.9 Qualified Code(s): E66.813 - Obesity, class 3; E66.01 - Morbid (severe) obesity due to excess calories; Z68.41 - Body mass index [BMI] 40.0-44.9, adult (7) HLD (hyperlipidemia): Assessment and Plan: c/w Lipitor. Qualifiers: Hyperlipidemia type: unspecified Qualified Code(s): E78.5 - Hyperlipidemia, unspecified Plan Advanced diet. Monitor Blood glucose closely. Adjust insulin dose according to poc glucose. Recheck BMP to ensure AG remains closed. Patient will need continued inpatient monitoring to ensure her BP is well controlled and she does not relapse into DKA. Stable for transfer to med surg floor. Care plan d/w patient, patient's RN and case management. Internal Medicine - PN: Subj Subjective Interval history: Seen and examined. Doing well today. AG closed on morning labs. Patient switched to SQ insulin. Exam Constitutional Vital Signs, click to edit/add: Last Vital Signs Temp 98 F 02/12/24 03:00 Pulse 107 H 02/12/24 03:00 Resp 15 02/12/24 03:00 BP 129/65 02/12/24 00:07 Pulse Ox 95 02/12/24 03:00 O2 Del Method Room Air 02/12/24 03:00 Documenting provider has reviewed patient's vital signs: yes Common normals: no apparent distress and oriented x3 General appearance: cooperative and comfortable Nutritional appearance: obese Respiratory Common normals: normal respiratory effort and clear to auscultation bilaterally Effort & inspection: able to speak in complete sentences Auscultation: clear to auscultation bilaterally Cardio Common normals: regular rate, S1 normal heart sound and S2 normal heart sound Rate: regular rate Heart sounds: S1 normal and S2 normal Extremity Common normals: no clubbing, cyanosis or edema Neuro Common normals: oriented x3, moves all extremities and no focal motor deficits Psych Common normals: mental status grossly normal, denies hallucinations, denies homicidal ideation and denies suicidal ideation Internal Medicine - PN: Obj Da Labs Labs: Laboratory Results - last 24 hr 02/11/24 02/11/24 02/11/24 11:03 14:57 19:07 WBC RBC Hgb Hct MCV MCH MCHC RDW Plt Count MPV Neut % (Auto) Lymph % (Auto) [place] % (Auto) Eos % (Auto) Baso % (Auto) Neut # (Auto) Lymph # (Auto) [place] # (Auto) Eos # (Auto) Baso # (Auto) Abs Immat Gran (auto) Imm/Tot Granulo (auto) Sodium 138 137 136 Potassium 3.7 3.5 3.4 L Chloride 105 104 105 Carbon Dioxide 15.0 L 17.9 L 18.7 L Anion Gap 21.7 18.6 15.7 BUN 18.0 17.0 15.0 Creatinine 0.77 0.79 0.74 Est GFR ( Amer) >60 >60 >60 Est GFR (Non-Af Amer) >60 >60 >60 BUN/Creatinine Ratio 23.4 21.5 20.3 Glucose 210 H 216 H 254 H Calcium 8.7 8.4 L 8.8 Phosphorus 2.8 2.8 2.6 Magnesium 1.6 L 1.5 L 1.5 L 02/11/24 02/12/24 02/12/24 23:00 03:00 07:23 WBC 11.2 H RBC 4.29 Hgb 12.3 Hct 36.5 MCV 85.1 MCH 28.7 MCHC 33.7 RDW 13.8 Plt Count 258 MPV 10.1 Neut % (Auto) 54.0 Lymph % (Auto) 34.0 [place] % (Auto) 10.8 Eos % (Auto) 0.4 L Baso % (Auto) 0.4 Neut # (Auto) 6.1 Lymph # (Auto) 3.8 [place] # (Auto) 1.2 H Eos # (Auto) 0.1 Baso # (Auto) 0.1 Abs Immat Gran (auto) 0.04 H Imm/Tot Granulo (auto) 0.4 Sodium 136 137 139 Potassium 3.7 3.8 3.2 L Chloride 106 107 108 H Carbon Dioxide 20.3 L 20.8 L 19.0 L Anion Gap 13.4 13.0 15.2 BUN 14.0 12.0 11.0 Creatinine 0.70 0.79 0.61 Est GFR ( Amer) >60 >60 >60 Est GFR (Non-Af Amer) >60 >60 >60 BUN/Creatinine Ratio 20.0 15.2 18.0 Glucose 258 H 180 H 183 H Calcium 8.5 8.9 8.4 L Phosphorus 2.6 2.0 L 2.4 L Magnesium 1.6 L 1.5 L 1.5 L
[2024-02-12] MEDS: ONDANSETRON PF 4 MG/2 ML VIAL IV (10:35)
--- NOTE | 2024-02-12 10:43 | CM.NOTE ---
Discussed with pt discharge planning, pt does have insulin at home. Pt also competent with home insulin pump. Pt also has appt scheduled Mar 03 with library technician. Discussed with pt about transferring script next time if pharmacy unable to get insulin or contacting PCP. Pt verbalizes understanding and denies need for diabetic education.
[2024-02-12] MEDS: ACETAMINOPHEN 325 MG TABLET 650 MG PO (11:28)
[2024-02-12] MEDS: INSULIN ASPART 300 UNIT/3 ML PEN SUBQ ×3 (11:31→23:13)
[2024-02-12] MEDS: INSULIN ASPART 300 UNIT/3 ML PEN 10 UNIT SUBQ (11:31)
[2024-02-12] MEDS: DICYCLOMINE HCL 10 MG CAPSULE PO (13:33)
[2024-02-12 15:30] LABS: Anion Gap 15.6; BUN Creatinine Ratio 17.4; Calcium 8.9 mg/dL (8.5-10.1); Carbon Dioxide 20.2 mmol/L (21.0-32.0); Chloride 109 mmol/L (98-107); Estimated GFR (African America >60 (>=60 mL/min/1.73m^2); Estimated GFR (Non-African Ame >60 (>=60 mL/min/1.73m^2); Glucose 162 mg/dL (74-106); Potassium 3.8 mmol/L (3.5-5.1); Sodium 141 mmol/L (136-145)
[2024-02-12] MEDS: KETOROLAC TROMETHAMINE 30 MG/ML VIAL IVP (16:07)
[2024-02-12 17:40] LABS: Bilirubin Urine NEGATIVE (NEGATIVE); Blood Urine NEGATIVE (NEGATIVE); Clarity Urine SL CLOUDY (CLEAR); Color Urine LT. YELLOW (YELLOW); Glucose Urine UA 250 mg/dL (NEGATIVE); Ketones Urine 15 mg/dL (NEGATIVE); Leukocyte Esterase Urine SMALL (NEGATIVE); Nitrite Urine NEGATIVE (NEGATIVE); Protein Urine NEGATIVE (NEG/TRACE); Specific Gravity Urine >=1.030 (1.005-1.025); Urobilinogen Urine 0.2 EU/dL (0.2-1.0)
--- NOTE | 2024-02-12 17:55 | CT_ITS ---
The [address] [address] Patient Name: HE REVELES MRN: [id number] date: 1975 Sex: F Assigned Patient Location: ICU Current Patient Location: [place] Accession/Order Number: [id number] Exam Date: 02/12/2024 17:48 Report Date: 02/12/2024 18:35 At the request of: SHAIKH NAVI Procedure: CT abdomen pelvis w con CT ABDOMEN/PELVIS WITH IV CONTRAST. INDICATION: Abdominal pain. COMPARISON: There are no other studies available for comparison. TECHNIQUE: Contiguous axial images were obtained from the lung bases to the pelvic floor following the intravenous administration of contrast. Coronal and sagittal reformations are provided. FINDINGS: LOWER LUNGS: Clear. LIVER/BILIARY TREE: No mass. No intrahepatic ductal dilatation. Mild hepatic steatosis. GALLBLADDER: No significant gallbladder wall thickening. No radiopaque stone. CBD: Normal CBD. SPLEEN: Normal in size. PANCREAS: No acute findings. No peripancreatic fluid or inflammation. No pancreatic duct dilatation. No discrete mass. ADRENALS: There is a low-density 2.7 cm left adrenal nodule probably an adenoma. KIDNEYS: No hydronephrosis. No radiopaque calculus. STOMACH AND BOWEL: Stomach is unremarkable. No dilated bowel loops. No bowel wall thickening. APPENDIX: Normal appendix. PERITONEAL CAVITY: No fluid. No fat stranding. ABDOMINAL WALL: No subcutaneous stranding. No subcutaneous fluid collection. LYMPH NODES: No mesenteric or retroperitoneal lymphadenopathy by CT criteria. ABDOMINAL AORTA: No aneurysm. PELVIS: No acute abnormality. Status post hysterectomy. MUSCULOSKELETAL: No acute osseous abnormality. CT/CT abdomen pelvis w con IMPRESSION: No acute abnormality in the abdomen or pelvis. Electronically authenticated by: BRIAN MAYORGA Date: 02/12/2024 18:35
[2024-02-12 18:00] LABS: Urine Microscopic Indicated YES
[2024-02-12 18:03] LABS: Bacteria Urine LARGE #/HPF (NONE SEEN); Crystals Seen? None Seen #/HPF (None Seen); Mucus Urine SMALL (NONE SEEN); RBC Urine 0-2 #/HPF (0-2); Squamous Epithelial Cell Urine FEW #/LPF (NONE/RARE); Transitional Epi Cells Urine RARE #/LPF (NONE SEEN)
[2024-02-12 18:04] LABS: Cast Seen? NONE SEEN #/LPF (NONE SEEN); Urine Culture Indicated YES
[2024-02-12 18:19] LABS: Lactate/Lactic Acid 0.6 mmol/L (0.4-2.0)
[2024-02-12] MEDS: MORPHINE SULFATE 2 MG/ML SYRINGE IV (18:49)
[2024-02-12] MEDS: 0.9 % SODIUM CHLORIDE 1,000 ML 1000 ML IV (19:24)
[2024-02-12] MEDS: SODIUM CHLORIDE 0.45 % 1,000 ML 150 ML IV (20:22)
[2024-02-12] MEDS: CEFTRIAXONE 1,000 MG in 0.9 % SODIUM CHLORIDE 50 ML 100 MG IV (21:04)
[2024-02-12] MEDS: MAGNESIUM OXIDE 400 MG TABLET PO (21:04)
[2024-02-12] MEDS: ATORVASTATIN CALCIUM 40 MG TABLET 80 MG PO (21:05)
[2024-02-13] VITALS (15 sets, daily range): BP systolic 132–186; BP diastolic 80–98; PULSE 92–116; TEMP 36.7–37.3; O2SAT 95–98
[2024-02-13] MEDS: SODIUM CHLORIDE 0.45 % 1,000 ML 150 ML IV (03:23)
[2024-02-13] MEDS: INSULIN ASPART 300 UNIT/3 ML PEN SUBQ ×2 (06:18→13:10)
[2024-02-13] MEDS: SERTRALINE HCL 50 MG TABLET PO (08:38)
[2024-02-13] MEDS: CETIRIZINE HCL 10 MG TABLET PO (08:38)
[2024-02-13] MEDS: LISINOPRIL 20 MG TABLET 40 MG PO (08:38)
[2024-02-13] MEDS: MAGNESIUM OXIDE 400 MG TABLET PO (08:38)
[2024-02-13] MEDS: OMEPRAZOLE 40 MG CAPSULE.DR PO (08:38)
--- NOTE | 2024-02-13 09:57 | CM.NOTE ---
Rounds made with Dr. Giordano, discussed with pt CT scan results. Pt abdominal pain is better today, no BM since weekend. Encouraged ambulation, possible discharge this afternoon.
[2024-02-13] MEDS: PANTOPRAZOLE SODIUM 40 MG VIAL IV (12:00)
[2024-02-13] MEDS: HYOSCYAMINE SULFATE 0.125 MG TAB.SUBL SL (12:01)
[2024-02-13] MEDS: POLYETHYLENE GLYCOL 3350 17 GM POWDER PACKET PO (12:01)
[2024-02-13] MEDS: PROMETHAZINE HCL 12.5 MG in 0.9 % SODIUM CHLORIDE 50 ML 202 MG IV (12:03)
[2024-02-13] MEDS: INSULIN DETEMIR 300 UNIT/3 ML INSULN.PEN 30 UNIT SUBQ (12:06)
[2024-02-13] MEDS: MORPHINE SULFATE 2 MG/ML SYRINGE IV (12:38)
[2024-02-13] MEDS: HYDRALAZINE HCL 20 MG/ML VIAL 10 MG IVP ×2 (13:09→16:11)
[2024-02-13] MEDS: INSULIN ASPART 300 UNIT/3 ML PEN 10 UNIT SUBQ (13:10)
[2024-02-13] MEDS: AMLODIPINE BESYLATE 5 MG TABLET 10 MG PO (16:11)
--- NOTE | 2024-02-13 16:11 | PM.DS1 ---
DS: Providers Provider Date of admission: 02/11/24 10:59 Primary care physician: Sonya Mejia NP Admitting clinician: Shaikh Pasquale Attending physician on admission: Shaikh Pasquale Attending physician on discharge: Shaikh Pasquale Discharging clinician: Shaikh Pasquale Anticipated date of discharge: 02/14/24 DS: Diagnosis Discharge Diagnosis (1) DKA, type 2: Qualifiers: Diabetes mellitus complication detail: without coma Qualified Code(s): E11.10 - Type 2 diabetes mellitus with ketoacidosis without coma (2) Nausea & vomiting: Qualifiers: Vomiting type: unspecified Qualified Code(s): R11.2 - Nausea with vomiting, unspecified (3) Leukocytosis: Qualifiers: Leukocytosis type: leukemoid reaction Qualified Code(s): D72.823 - Leukemoid reaction (4) HTN (hypertension): Qualifiers: Hypertension type: primary hypertension Qualified Code(s): I10 - Essential (primary) hypertension (5) Depression: Qualifiers: Active/Remission status: in full remission Depression Type: major depressive disorder Major depression recurrence: recurrent Qualified Code(s): F33.42 - Major depressive disorder, recurrent, in full remission (6) Obesity: Qualifiers: Body mass index: BMI 40.0-44.9 Obesity classification: adult class 3 (BMI >= 40) Obesity type: due to excess calories Serious obesity comorbidity presence: with serious comorbidity Qualified Code(s): E66.813 - Obesity, class 3; E66.01 - Morbid (severe) obesity due to excess calories; Z68.41 - Body mass index [BMI] 40.0-44.9, adult (7) HLD (hyperlipidemia): Qualifiers: Hyperlipidemia type: unspecified Qualified Code(s): E78.5 - Hyperlipidemia, unspecified DS: Summary Hospital Course Hospital Course: 48 y o female with hx of T2 DM, on continuous insulin infusion ran out of her Insulin for a week due to back order/change in pharmacy after closure of [facility], presented to ED with nausea, vomiting and generalized abdominal pain. Upon evaluation in ED, patient was found to have mild DKA and was initially admitted for observation on med surg floor with plans to treat her DKA with SQ insulin instead of IV insulin. However, he AG worsened and increased to 26. Patient was transferred to ICU and started on IV insulin as per DKA protocol with close monitoring of her blood glucose, serial BMP to monitor serum electrolytes, anion gap and was changed to inpatient status as she required higher level of care, her metabolic acidosis/DKA worsened after initial treatment and observation and was anticipated to require a minimum of 2 days of inpatient hospital stay/treatment and close monitoring to ensure she recovers fully. Patient's AG closed next day and she was transitioned to SQ insulin. Patient initially felt better and was doing well but then she started to experience severe generalized abdominal pain, nausea and had few episodes of vomiting. CT abd was ordered that did not reveal any sig finding. Patient's abdominal pain was treated with a combination of supportive measures and as needed medications like Levsin, bentyl and toradol. Testing also revealed that she had now UTI. She was treated for it IV rocephin. Patient clinically improved and was able to tolerated PO diet and her pain more or less resolved. Of note, she was noted to have poorly controlled BP in the hospital and was discharged home on oral norvasc that she was instructed to use with Lisinopril. She was also discharged home with oral ceftin for UTI. Patient assured us that she had insulin supplies at home for continuous insulin and was instructed to f/u with Endocrine as her A1C was above goal and poorly controlled. Patient medically stable for discharge. She was educated on worrisome signs and symptoms and instructed to return to ED if her symptoms worsened. Status at Discharge Functional status at discharge: independent ambulation Overall status at discharge: patient is back to baseline Time Spent with Patient Time attestation: Total time spent providing and/or coordinating discharge services: Time spent: greater than 30 minutes Exam Constitutional Vital Signs, click to edit/add: Last Vital Signs Temp 98.0 F 02/13/24 15:43 Pulse 106 H 02/13/24 15:43 Resp 18 02/13/24 15:43 BP 186/98 H 02/13/24 15:43 Pulse Ox 95 02/13/24 15:43 O2 Del Method Room Air 02/13/24 14:13 Documenting provider has reviewed patient's vital signs: yes Common normals: no apparent distress and oriented x3 General appearance: cooperative and comfortable Nutritional appearance: obese Respiratory Common normals: normal respiratory effort and clear to auscultation bilaterally Effort & inspection: able to speak in complete sentences Auscultation: clear to auscultation bilaterally Cardio Common normals: regular rate, S1 normal heart sound and S2 normal heart sound Rate: regular rate Heart sounds: S1 normal and S2 normal GI Common normals: Normal to inspection, nondistended, normoactive bowel sounds present, soft to palpation and non-tender Extremity Common normals: no clubbing, cyanosis or edema Neuro Common normals: oriented x3, moves all extremities and no focal motor deficits Psych Common normals: mental status grossly normal, denies hallucinations, denies homicidal ideation and denies suicidal ideation DS: Data Data Completed and Pending Labs on day of discharge: Labs from last 24 hours 02/12/24 02/12/24 17:47 17:00 Lactate 0.6 Urine Color Lt. yellow Urine Clarity Sl cloudy Urine pH 6.0 Ur Specific [place] >=1.030 A Urine Protein Negative Urine Glucose (UA) 250 A Urine Ketones 15 A Urine Occult Blood Negative Urine Nitrite Negative Urine Bilirubin Negative Urine Urobilinogen 0.2 Ur Leukocyte Esterase Small A Urine RBC 0-2 Urine WBC 2-5 A Ur Squamous Epith Cells Few A Ur Transition Epith Cell Rare A Urine Crystals None seen Urine Bacteria Large A Urine Casts None seen Urine Mucus Small A Urine Yeast Seen A Ur Culture Indicated? Yes Discharge Plan Discharge Disposition: Home, Self-Care Condition: Good Discharge Medications: New ondansetron 4 mg tablet,disintegrating 4 mg PO Q6H PRN (Reason: nausea and vomiting) Qty: 20 0RF amlodipine [Norvasc] 10 mg tablet 10 mg PO DAILY Qty: 30 0RF cefuroxime axetil 500 mg tablet 500 mg PO BID Qty: 10 0RF Continued sertraline 50 mg tablet 50 mg PO DAILY omeprazole 40 mg capsule,delayed release(DR/EC) 40 mg PO DAILY metformin 1,000 mg tablet 1,000 mg PO BID loratadine [Allergy Relief (loratadine)] 10 mg tablet 10 mg PO DAILY lisinopril 40 mg tablet 40 mg PO DAILY atorvastatin 80 mg tablet 80 mg PO .qhs Fiasp U-100 Insulin 100 unit/mL solution 1 - 80 unit subcut Q24H (DME) V-GO 40 Device MISCELLANEOUS Mounjaro 10 mg/0.5 mL pen injector 10 mg SUBCUT QWEEK Activity: increase activity as tolerated Diet: diabetic diet Print Language: [place] Patient Instructions: Cefuroxime (By mouth), Amlodipine (By mouth), Ondansetron (By mouth), Acute Abdominal Pain (DC), Diabetic Hyperglycemia (DC) Forms: Portal Instructions Follow Up Appointments: Sonya Joel Feb 20 at 11am. Keep Mar 03 appointment with Marcela Quinones NP F/u with Endocrinology in 2-3 weeks Discharge Date/Time: 02/13/24 16:39
--- NOTE | 2024-02-14 11:25 | CM.DCFOLLOWU ---
1st attempt 02/14/24, no answer
--- NOTE | 2024-02-15 13:11 | CM.DCFOLLOWU ---
2nd attempt 02/15/24, no answer
--- NOTE | 2024-02-19 13:48 | CM.DCFOLLOWU ---
3rd attempt 02/19/24, no answer
== END 2024-02-13 16:39 | disposition home or self-care (01) | DRG 638 ==
LOC: ER 02-11 00:09 → MS 02-11 01:09 → ICU 02-11 07:35 → MS 02-12 18:05
PROVIDERS: Registered Nurse; Admitting Provider Internal Medicine; Emergency Provider Emergency Medicine; PCP Nurse Practitioner; Visit Provider Internal Medicine
DX: E11.10 Type 2 diabetes mellitus with ketoacidosis without coma (principal); N39.0 Urinary tract infection, site not specified; Z68.41 Body mass index [BMI] 40.0-44.9, adult; R11.2 Nausea with vomiting, unspecified; D72.823 Leukemoid reaction; I10 Essential (primary) hypertension; F33.42 Major depressive disorder, recurrent, in full remission; E66.01 Morbid (severe) obesity due to excess calories; E78.5 Hyperlipidemia, unspecified; R10.84 Generalized abdominal pain; T38.3X6A Underdosing of insulin and oral hypoglycemic [antidiabetic] drugs, initial encounter; B95.2 Enterococcus as the cause of diseases classified elsewhere; Z91.138 Patient's unintentional underdosing of medication regimen for other reason; Z79.899 Other long term (current) drug therapy; Z79.4 Long term (current) use of insulin; Z85.42 Personal history of malignant neoplasm of other parts of uterus; Z90.710 Acquired absence of both cervix and uterus; Z79.84 Long term (current) use of oral hypoglycemic drugs
CPT/HCPCS: 36415; 71045; 74177; 80048; 81001; 82009; 82800; 82948; 83036; 83605; 83735; 84100; 84703; 85025; 85027; 87086; 87150; 87186; 93005; 96361; 96372; 96374; 96376; 99285; J0360; J0500; J0696; J1885; J2250; J2270; J2405; J3475; Q9967

== ENCOUNTER 2024-05-30 13:31 | Outpatient (OUT) | payer MEDICARE, MEDICAID, SELFPAY | END 2024-05-30 13:32 | disposition home or self-care (01) | LOC: PST 13:31 | PROVIDERS: PCP Nurse Practitioner; Visit Provider Surgery | DX: Z01.818 Encounter for other preprocedural examination (principal); Z12.11 Encounter for screening for malignant neoplasm of colon ==

== ENCOUNTER 2024-06-04 10:24 | Day surgery (SDC) | payer MEDICARE, SELFPAY ==
--- NOTE | 2024-06-04 | OP_ITS ---
OPERATION DATE: 06/04/2024 PREOPERATIVE DIAGNOSIS: Colorectal screening. POSTOPERATIVE DIAGNOSIS: 2 mm rectal polyp. PROCEDURE: Colonoscopy to cecum with cold forceps polypectomy x1. SURGEON: Donell Reyes M.D. ANESTHESIA: Monitored anesthesia care. ESTIMATED BLOOD LOSS: Less than 1 mL. INDICATIONS AND CONSENT: Patient is a 48-year-old female, presents for colorectal screening. Indications, risks, benefits, alternatives of proceeding with colonoscopy were explained extensively to the patient, including the risks of bleeding, colon perforation or anesthetic complications. All of her questions were answered. Informed consent was obtained. PROCEDURE: Patient brought to the operating room, placed in the left lateral decubitus position. Monitored anesthesia care was provided. Rectal exam was performed which showed no masses or blood. The scope was inserted into the anal canal. Under direct visualization was advanced. With the aid of abdominal compression, it was advanced to the cecum where cecal markings were clearly identified. Upon withdrawal of the scope, mucosal surfaces were carefully examined. There were no mass lesions or polyps. No inflammatory changes or ulcerations. No significant diverticulosis. In the rectum, there was noted to be a 2 mm sessile polyp that was removed with cold biopsy forceps with good hemostasis. The scope was retroflexed in the anal canal. There were small, hypertrophic anal papillae. No significant hemorrhoidal disease, some prominent rectal veins. The scope was then withdrawn. Patient tolerated procedure well, was sent to recovery room in good condition. Follow up colonoscopy likely in five years, but will depend on the pathology results. CC: Sonya Mejia, DENISE LOMELI
[2024-06-04 10:38] VITALS: BP 150/104; PULSE 114; TEMP 36.1; O2SAT 97; BMI 42.5
[2024-06-04 10:46] LABS: Glucometer 241 mg/dL (74-106)
--- OUTSIDE RECORDS SUMMARY | 2024-06-04 10:47 | XMS_ITS | CCD ---
Author Organization [facility] Care Team Providers Care Claims Manager Name Role Phone [facility] Primary Care Provider [phone] Mariam Beyer Attending Provider Abner Cartwright Attending Provider [phone] Glenna Quinones Unavailable Jessica Owens MD Primary Care Provider [phone] Sonya Mejia Primary Care Provider HARI Quinones Attending Provider [facility] Primary Care Provider HARI Beyer Attending Provider [phone] AICHHOLZ, REGULATORY SUBMISSIONS SPECIALIST SONYA Attending Unavailable AICHHOLZ, REGULATORY SUBMISSIONS SPECIALIST SONYA Admitting Unavailable AICHHOLZ, REGULATORY SUBMISSIONS SPECIALIST SONYA Primary Care Unavailable AICHHOLZ, REGULATORY SUBMISSIONS SPECIALIST SONYA Attending Unavailable AICHHOLZ, REGULATORY SUBMISSIONS SPECIALIST SONYA Admitting Unavailable DR MATT CABRERA Primary Care Unavailable AICHHOLZ, REGULATORY SUBMISSIONS SPECIALIST SONYA Consulting Unavailable AICHHOLZ, REGULATORY SUBMISSIONS SPECIALIST SONYA Attending Unavailable AICHHOLZ, REGULATORY SUBMISSIONS SPECIALIST SONYA Admitting Unavailable AICHHOLZ, REGULATORY SUBMISSIONS SPECIALIST SONYA Primary Care Unavailable AICHHOLZ, REGULATORY SUBMISSIONS SPECIALIST SONYA Consulting Unavailable DR VALERIANO SINCLAIR Consulting Unavailable KAYA PATEL Consulting Unavailable JOSÉ ., ADAM Admitting Unavailable JOSÉ ., ADAM Attending Unavailable AICHHOLZ, REGULATORY SUBMISSIONS SPECIALIST SONYA Primary Care Unavailable JOSÉ Valle, ADAM Consulting Unavailable aMrk Gramajo Unavailable [facility] Primary Care Provider HARI Beyer Attending Provider [phone] Sonya Mejia Primary Care Provider HARI Gramajo Attending Provider Jose APODACA, Abad Primary Care Provider Aichclyde GEOGRAPHY INSTRUCTOR, Sonya Unavailable [facility] Primary Care Provider [phone] MapKRUPA swiftN Mariam K Attending Provider Jose APODACA, Abad Primary Care Provider Aichholfadumo GEOGRAPHY INSTRUCTOR, Sonya Unavailable Bob APODACA, Jessica Primary Care Provider [phone] JESSICA OWENS Primary Care Unavailable JASON ACEVEDO Referring Unavailable JASON ACEVEDO Attending Unavailable GLENDY MONREAL Attending Unavailable JESSICA OWENS Primary Care Unavailable [facility] Primary Care Provider MapHARI swift Attending Provider [phone] Sonya Mejia J Primary Care Provider [phone] HARI Quinones Attending Provider Mark Gramajo Attending Unavailable Mark Gramajo Admitting Unavailable Jackie, Sonya Aguirre Primary Care Unavailable [facility] Primary Care Unavaila ble Mariam Beyer K Attending Unavailable Pepito Tondra K Admitting Unavailable Glenna Quinones Attending Unavailable Glenna Quinones Admitting Unavailable Aichholz, Sonya J Primary Care Unavailable Mark Gramajo Attending Unavailable Mark Gramajo Admitting Unavailable Aichholz, Sonya J Primary Care Unavailable Aichholz GEOGRAPHY INSTRUCTOR, Sonya Unavailable Unallocated MD, Noms Provider Primary Care Provi tremayne Jose APODACA, Abad Primary Care Provider AICHHOLZ, SONYA Attending Unavailable AICHHOLZ, SONYA Attending Unavailable AICHHOLZ, SONYA Attending Unavailable AICHHOLZ, SONYA Attending Unavailable AICHHOLZ, SONYA Attending Unavailable AICHHOLFadumo, SONYA J Primary Care Physician Doenll MCGRATH Attending Unavailable SONYA MEJIA Referring Unavailable Bob APODACA, Jessica Primary Care Provider [phone] Allergies Allergy Classification Reported Allergen(s) Allergy Type Date of Onset Reaction(s) Facility (20 sources) SGLT2s Propensity to adverse reactions DKA x2 [employer] Other (4 sources) Seasonal allergy; Translations: [SEASONAL ALLERGIES] Allergy to substance 2 Other: See Comments [facility] (18 sources) dulaglutide; Translations: [dulaglutide] Drug Allergy 2 Vomiting (disorder) [facility] Medications Current Medications Medication Drug Class(es) Dates Sig (Normalized) Sig (Original) 0.5 ML tirzepatide 20 MG/ML Auto-Injector [Mounjaro] (1 source) Start: 05-22-2024 inject 10 mg by subcutaneous injection every week Mounjaro 10 mg/0.5 mL subcutaneous solution 10 mg, SubCutaneous, qWeek, Refills(s) 0 Start Date: 05/22/24 Status: Ordered 3 ML semaglutide 1.34 MG/ML Pen Injector [...] mg Subcutaneous weekly for 90 days Active amLODIPine 10 mg oral tablet (9 sources) Dihydropyridine Calcium Channel Yenni Start: 05-22-2024 take 1 tablet by mouth once daily amLODIPine 10 mg Tab 10 mg = 1 tab(s), Oral, Daily, Refills(s) 0 Start Date: 05/22/24 Status: Ordered Start: 02-13-2024 take 1 tablet by jen th once daily Amlodipine 10 mg tablet Active 10 MG PO Daily March 03, 2024 12:00am atorvastatin 80 mg oral tablet (20 sources) HMG-CoA Reductase Inhibitor Start: 05-24-2023 End: 07-30-2024 take 1 tablet by mouth once daily Lipitor 80 mg Tab 80 mg = 1 tab(s), Oral, Daily, Refills(s) 0 Start Date: 05/22/24 Status: Ordered Start: 01-31-2018 End: 06-30-2019 take 1 tablet by mouth once daily atorvastatin (LIPITOR) 10 mg tablet Take 10 mg by mouth once daily. 6 02/18/2018 Active End: 05-24-2023 take 1 tablet by mouth in the morning atorvastatin (Lipitor) 40 MG tablet Take 1 tablet by mouth in the morning. 0 05/24/2023 Discontinued (Ineffective) take 1 tablet by jen th every twenty-four hours Atorvastatin Calcium 20 MG 1 tablet Orally Once a day for 90 days Active Comment on above: Take 10 mg by mouth once daily. Basaglar KwikPen (1 source) Start: 05-22-19 inject 30 [IU] by subcutaneous injection once daily Basaglar KwikPen 30 unit(s), SubCutaneous, Daily, Refills(s) 0 Start Date: 05/22/24 Status: Ordered benoxinate hydrochloride 4 mg/ml / fluorescein sodium 3 mg/ml ophthalmic solution (4 sources) Diagnostic Dye Start: 06-03-19 End: 06-03-19 fluorescein-donna xinate 0.3-0.4 % 1 Drop (FLURESS) Start: 06-03-2024 End: 06-03-2024 1 Drop, BOTH EYES, DIRECT ED, Starting on Sun06/03/24 at 0930, Until Sun06/03/24 at 2129, Administer for applanation tonometry. In the event of a Fluress shortage, administer 1 drop of Chappell-Fluor into both eyes as directed for applanation tonometry., OPHT CLINIC MED ORDERS Start: 08-07-2023 End: 08-08-2023 fluorescein-benoxinate 0.25- 0.4 % 1 Drop (FLURESS) Start: 01-31-2022 End: 02-01-2022 fluorescein-benoxinate 0.25- 0.4 % 1 Drop (FLURESS) Centrum Adults - (20 sources) take 1 tablet by mouth once daily Centrum Adults - 1 tablet Orally daily Active cephalexin 500 mg oral capsule (3 sources) Cephalosporin Antibacterial Start: 018 cephALEXin (KEFLEX) 500 mg capsule 03/18/2018 Active Cholecalciferol (8 sources) Vitamin D Start: 024 take 1 capsule by mouth once daily cholecalciferol (vitamin D3) Active 1 CAP PO Daily August 20, 2023 11:00pm Start: 08-21-2023 take 1 capsule by mo [facility] once daily cholecalciferol (vitamin D3) Active 1 CAP PO Daily August 21, 2023 12:00am dicyclomine hydrochloride 20 mg oral tablet (15 sources) Anticholinergic Start: 02-18-2018 dicyclomine (B ENTYL) 20 mg tablet TAKE ONE 1 TABLET BY MOUTH EVERY 8 HOURS NEEDED FOR PAIN 6 02/18/2018 Active Start: 01-31-2018 End: 06-30-2019 take 1 tablet by mouth once daily Dicyclomine 20 mg tablet Discontinued 20 MG PO Daily January 30, 2018 11:00pm June 30, 2019 1:14pm Comment on above: TAKE ONE 1 TABLET BY MOUTH EVERY 8 HOURS NEEDED FOR PAIN empagliflozin 25 mg oral tablet (3 sources) Sodium-Glucose Cotransporter 2 Inhibitor Start: 020 take 1 tablet by mouth once daily JARDIANCE 25 mg tablet Take 25 mg by mouth once daily. 10/21/2019 Active Comment on above: Take 25 mg by mouth once daily. 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 Active Comment on above: Take by mouth one ti me a week. ertugliflozin 15 mg oral tablet (15 sources) Start: 019 End: STEGLATRO 15 mg tab 0 02/27/2019 Active Fish Oils (20 sources) Fish Oil Active Flash Glucose Scanning [place] (Freestyle Neris 2 [place]) misc (8 sources) Start: Flash Glucose Scanning [place] (Freestyle [place] 2 [place]) misc Active 0 .Route August 20, 2023 11:00pm As directed Start: 08-21-2023 Flash Glucose Scanning [place] (Freestyle Neris 2 [place]) misc Active 0 .Route August 21, 2023 12:00am As directed Start: 08-21-2023 Flash Glucose Scanning [place] (Freestyle Neris 2 [place]) misc Active 0 .ROUTE August 21, 2023 12:00am As directed Flash Glucose Sensor (Freest yle Neris 2 Sensor) kit (8 sources) Start: 08-21-2023 Flash Glucose Sensor (Freestyle Neris 2 Sensor) kit Active 0 .Route August 20, 2023 11:00pm As directed Start: 08-21-2023 Flash Glucose Sensor [...] days for 84 days Active FreeStyle Neris [place] - (20 sources) Start: 01-21-2020 FreeStyle Libr e [place] - as directed use with 14 days sensor check glucose with reader ac, hs, prn Dec, Active FreeStyle [place] - as directed use with 14 days [...] and prn for 28 days Active Insulin Aspart U-100 100 unit/mL solution (1 source) Start: 05-12-2024 Insulin Aspart U-100 100 unit/mL solution Active 0 SUBCUT Use as Directed 80 May 12, 2024 12:00am USE DIRECTED per sliding SUBCUTANEOUSLY (UNDER THE SKIN) WITH VGO 40 *up to 90 UNITS DAILY * insulin aspart, human 100 unt/ml injectable solution (20 sources) Insulin Analog Start: 05-22-2024 Fiasp 100 unit s/mL injectable solution as directed, Refills(s) 0 Start Date: 05/22/24 Status: Ordered Start: 01-23-2024 End: 03-03-2024 Insulin Aspart (Niacinamide) (Fiasp U-100 Insulin) 100 unit/mL solution Active 0 .ROUTE .COMPLEX 80 March 03, 2024 5:17pm USE DIRECTED per sliding SUBCUTANEOUSLY (UNDER THE SKIN) WITH VGO 40 *up to 90 UNITS DAILY * Start: 08-21-2023 End: 08-21-2023 Insulin Aspart U-100 Discont inued 0 UNITS SUBCUT 3x/Day before meals August 21, 2023 1:02pm August 21, 2023 1:12pm 8, 12, or 15 units based on pt's blood glucose Start: 05-29-2023 Fiasp 100 UNIT /ML solution inject as directed four times a day (EXPECT 100 UNITS PER DAY) 05/29/2023 Active Start: 10-05-2022 End: 05-01-2024 Insulin Aspart (Niacinamide) (Fiasp U-100 Insulin) 100 unit/mL solution Discontinued 1 sliding scale dose SUBCUT Use as Directed January 21, 2024 11:00pm January 23, 2024 8:26am for use with VGO 40, expect up to 80 u per day Start: 03-06-2018 inject 10 [IU] by goodson [...] SUBC UTANEOUSLY THREE TIMES A DAY Insulin Disposable Pump (V-Go 40) 40 UNIT/24HR kit (16 sources) Start: 01-08-2023 Insulin Disposable Pump (V-Go 40) 40 UNIT/24HR kit Inject 1 Pump as directed in the morning. 01/08/2023 Active Start: 01-08-2023 Insulin Dispos able Pump (V-Go 40) 40 UNIT/24HR kit Inject 1 Pump as directed in the morning. 0 01/08/2023 Active 3 ml insulin glargine 100 unt/ml pen injector (20 sources) Insulin Analog Start: 01-10-2023 Basaglar GalloP en 100 UNIT/ML pen inject 40 units subcutaneously once daily 01/10/2023 Active Start: 11-04-2019 End: 11-26-2023 inject 30 [IU] by subcutaneous injection once daily Insulin Glargine 100 unit/mL (3 mL) insulin pen Discontinued 30 UNIT SUBCUT Daily 0 November 04, 2019 12:14pm November 26, 2023 1:10pm Start: 06-30-2019 End: 11-04-2019 inject 25 [IU] by subcutaneous injection once daily Insulin Glargine 100 unit/mL (3 mL) insulin pen Discontinued 25 UNITS SUBCUT Daily June 29, 2019 11:00pm November 04, 2019 12:14pm Start: 01-06-2019 BASAGLAR KWIKP EN U-100 INSULIN [...] BEDTIME ammonium lactate 120 mg/ml topical lotion (17 sources) Start: 05-22-2024 ammonium lactate (LAC-HYDRIN) 12 % lotion Apply to affected area. 05/22/2024 Active Start: 05-22-2024 Lac-Hydrin 12% topical lotion 1 marcio, Topical, BID, Refill(s) 0 Start Date: 05/22/24 Status: Ordered ammonium lactate (Lac-Hydrin) 12 % lotion 1 application every 12 (twelve) hours Active lisinopril 40 mg oral tablet (20 sources) Angiotensin Converting Enzyme Inhibitor Start: 10-16-2023 End: 01-30-2024 take 2 tablets by mouth once daily lisinopril 20 MG tablet Indications: Primary hypertension (CMS/HCC) Take 2 tablets (40 mg) by mouth Daily 180 tablet 1 10/16/2023 01/30/2024 Discontinued (Therapy completed) Start: 11-02-2022 take 2 tablets by mo ut once daily in the morning lisinopril 20 MG tablet Take 40 mg by mouth in the morning. Total is 40mg, so 2 pills daily. 0 11/02/2022 Active Start: 01-24-2021 End: 07-30-2024 take 1 tablet by mouth once daily lisinopril 40 mg Tab 40 mg = 1 tab(s), Oral, Daily, Refills(s) 0 Start Date: 05/22/24 Status: Ordered Start: 11-04-2019 End: 08-21-2023 take 1 tablet by mouth once daily Lisinopril 20 mg Tablet Discontinued 20 MG PO Daily November 03, 2019 11:00pm August 21, 2023 12:11pm Start: 01-31-2018 End: 06-30-2019 take 1 tablet by mouth once daily Lisinopril 40 mg tablet Discontinued 40 MG PO Daily January 30, 2018 11:00pm June 30, 2019 12:41pm Comment on above: Take 40 mg by mouth every morning. loratadine 10 mg oral tablet (20 sources) Start: 10-15-2023 End: 07-30-2024 loratadine (CLARITIN) 10 mg tablet Take 10 mg by mouth. 05/01/2024 Active take 1 tablet by mouth once dawson y loratadine (Claritin) 10 MG tablet Take 10 mg by mouth 1 (one) time each day at the same time. 0 Active metFORMIN hydrochloride 1000 mg oral tablet (20 sources) Biguanide Start: 01-31-2018 take 1 tablet by mouth twice daily metformin 1000 mg Tab 1,000 mg = 1 tab(s), Oral, BID, Refills(s) 0 Start Date: 05/22/24 Status: Ordered take 1 tablet by jen th every twelve hours metFORMIN (Glucophage) 1000 MG tablet Ta ke 1,000 mg by mouth every 12 (twelve) hours. Active Comment on above: TAKE ONE 1 TABLET BY MOUTH TWICE DAILY MOUNJARO 10 mg/0.5 mL pen injector (1 source) Start: 01-23-2024 MOUNJARO 10 mg/0.5 mL pen injector Inject 10 mg subcutaneously. 01/23/2024 Active Mounjaro 10 MG/0.5ML solution auto-injector (10 sources) Start: 01-23-2024 Mounjaro 10 MG/0.5ML solution auto-injector Inject 10 mg as directed every 7 (seven) days 01/23/2024 Active Multi Vitamins oral tablet (1 source) Start: 05-22-2024 take 1 tablet by mouth once daily Multi Vitamins oral tablet 1 tab(s), Oral, Daily, Refill(s) 0 Start Date: 05/22/24 Status: Ordered Multiple Vitamins-Minerals (ONE-A-DAY WOMENS PO) (16 sources) take 1 tablet by mouth once daily in the morning Multiple Vitamins-Minerals (ONE-A-DAY WOMENS PO) Take 1 tablet by mouth in the morning. Active take 1 tablet by jen th once daily in the morning Multiple Vitamins-Minerals (ONE-A-DAY WO MENS PO) Take 1 tablet by mouth in the morning. 0 Active multivitamin-ferrous fumarate-folic acid (CENTRUM COMPLETE) (1 source) multivitamin-nathaly jyotsna fumarate-folic acid (CENTRUM COMPLETE) Take by mouth every 24 hours. Active ys-tb-wetn-FA-Ca carb-vit K (Women's Multivitamin) (8 sources) Start: take 1 tablet by mouth once daily ny-og-keoz-FA-Ca carb-vit K (Women's Multivitamin) Active 1 TAB PO Daily August 20, 2023 11:00pm Start: 08-21-2023 take 1 tablet by jen th once daily jq-md-yysv-FA-Ca carb-vit K (Women's Multivitamin) Active 1 TAB PO Daily August 21, 2023 12:00am naltrexone 380 mg injection (15 sources) Opioid Antagonist Start: 05-21-2018 End: 11-02-2019 VIVITROL 380 mg injection 05/21/2018 Active omega-3 fatty acids (Fish Oil) (8 sources) Start: 08-21-2023 take 1 capsule by mouth once daily omega-3 fatty acids (Fish Oil) Active 1 CAP PO Daily August 20, 2023 11:00pm Start: 08-21-2023 take 1 capsule by mouth once d aily omega-3 fatty acids (Fish Oil) Active 1 CAP PO Daily August 21, 2023 12:00am omeprazole 40 mg delayed release oral capsule (20 sources) Proton Pump Inhibitor Start: 11-02-2019 End: 08-21-2023 Omeprazole 40 mg capsule,delayed release(DR/EC) Discontinued November 01, 2019 11:00pm August 21, 2023 12:09pm Start: 11-02-2019 Omeprazole Act bart November 01, 2019 11:00pm Start: 01-31-2018 End: 07-30-2024 take 1 capsule by mouth once daily omeprazole 40 mg Cap-DR 40 mg = 1 cap(s), Oral, Daily, Refills(s) 0 Start Date: 05/22/24 Status: Ordered Comment on above: Take 40 mg by mouth once daily. phenylephrine hydrochloride 25 mg/ml ophthalmic solution (4 sources) alpha-1 Adrenergic Agonist Start: 06-03-2024 End: 06-03-2024 PHENYLephrine 2.5 % 1 Drop (AK-DILATE, JESU-SYNEPHRINE) Start: 06-03-2024 End: 06-03-2024 1 Drop, BOTH EYES, DIRECT ED, Starting on Sun06/03/24 at 0930, Until Sun06/03/24 at 2129, Administer for dilation PROTECT FROM LIGHT, OPHT CLINIC MED ORDERS Start: 08-07-2023 End: 08-08-2023 PHENYLephrine 2.5 % 1 Drop ( AK-DILATE, JESU-SYNEPHRINE) Start: 01-31-2022 End: 02-01-2022 PHENYLephrine 2.5 % 1 Drop ( AK-DILATE, JESU-SYNEPHRINE) potassium chloride 10 meq extended release oral tablet (7 sources) Start: 03-08-2018 take 1 tablet by mouth three times daily potassium chloride (K-TAB) 10 mEq tablet Take 10 mEq by mouth three times daily. 0 03/08/2018 Active take 1 capsule by mo [facility] in the morning, then take 1 capsule [...] daily. proparacaine hydrochloride 5 mg/ml ophthalmic solution (3 sources) Local Anesthetic Start: 06-03-2024 End: 06-03-2024 proparacaine 0.5 % 1 Drop (ALCAINE) Start: 08-07-2023 End: 08-08-2023 proparacaine 0.5 % 1 Drop (A LCAINE) Start: 01-31-2022 End: 02-01-2022 proparacaine 0.5 % 1 Drop (A LCAINE) 0.25 mg, 0.5 mg dose 1.5 ml [...] sources) Serotonin Reuptake Inhibitor Start: 08-21-2023 End: 07-30-2024 take 1 tablet by mouth once daily Zoloft 50 mg Tab 50 mg = 1 tab(s), Oral, Daily, Refills(s) 0 Start Date: 05/22/24 Status: Ordered Start: 04-25-2023 End: 07-24-2023 take 1 tablet by mouth in the morning sertraline (Zoloft) 50 MG tablet Indications: Anxiety , Major depressive disorder with single episode, remission status unspecified (CMS/[facility]) Take 1 tablet (50 mg) by mouth in the morning. 90 tablet 0 04/25/2023 07/24/2023 Active Start: 05-27-2018 take 2 tablets by mo [facility] once daily sertraline (ZOLOFT) 25 mg tablet Take 50 mg by mouth once daily. 0 05/27/2018 Active Start: 05-27-2018 End: 08-21-2023 take 1 tablet by mouth once daily Sertraline 25 mg tablet Discontinued 25 MG PO Daily June 29, 2019 11:00pm August 21, 2023 12:04pm take 1 tablet by jen every twenty-four hours Sertraline HCl 50 MG 1 tablet Orally Once a day Active Comment on above: Take 25 mg by mouth once daily. Take 50 mg by mouth once daily. Sub-Q Insulin Device, 40 Unit (V-Go 40) device (18 sources) Start: 03-03-2024 Sub-Q Insulin Device, 40 Unit (V-Go 40) device Active 0 .Route March 03, 2024 5:18pm As directed Start: 01-30-2024 End: 03-03-2024 Sub-Q Insulin Device, 40 Uni t (V-Go 40) device Discontinued 0 .Route January 30, 2024 12:18pm March 03, 2024 5:18pm As directed Start: 01-30-2024 Sub-Q Insulin Device, 40 Unit (V-Go 40) device Active 0 .Route January 30, 2024 12:18pm As directed Start: 08-21-2023 End: 01-30-2024 Sub-Q Insulin Device, 40 Uni t (V-Go 40) device Discontinued 0 .Route August 21, 2023 1:18pm January 30, 2024 12:18pm As directed Start: 08-21-2023 Sub-Q Insulin Device, 40 Unit (V-Go 40) device Active 0 .Route August 21, 2023 2:18pm As directed Start: 08-21-2023 End: 08-21-2023 Sub-Q Insulin Device, 40 Uni t (V-Go 40) device Discontinued 0 .Route August 20, 2023 11:00pm August 21, 2023 1:20pm As directed Start: 08-21-2023 End: 08-21-2023 Sub-Q Insulin Device, 40 Uni t (V-Go 40) device Discontinued 0 .Route August 21, 2023 12:00am August 21, 2023 2:20pm As directed Start: 08-21-2023 Sub-Q Insulin Device, 40 Unit (V-Go 40) device Active 0 .ROUTE August 21, 2023 12:00am As directed Tirzepatide (3 sources) Start: 03-03-2024 Tirzepatide 10 mg/0.5 mL pen injector Active 10 MG SUBCUT every week March 03, 2024 5:18pm OK to dispense 7.5 if 10 mg unavailable, then revert to 10 mg when available Start: 01-22-2024 End: 03-03-2024 Tirzepatide 10 mg/0.5 mL pen injector Discontinued 10 MG SUBCUT every week January 22, 2024 2:08pm March 03, 2024 5:18pm OK to dispense 7.5 if 10 mg unavailable, then revert to 10 mg when available Start: 01-22-2024 Tirzepatide 10 mg/0.5 mL pen injector Active 10 MG SUBCUT every week January 22, 2024 2:08pm OK to dispense 7.5 if 10 mg unavailable, then revert to 10 mg when available tropicamide 10 mg/ml ophthalmic solution (4 sources) Anticholinergic Start: 06-03-2024 End: 06-03-2024 tropicamide 1 % 1 Drop (MYDRIACYL) Start: 06-03-2024 End: 06-03-2024 1 Drop, BOTH EYES, DIRECT ED, Starting on Sun06/03/24 at 0930, Until Sun06/03/24 at 2129, Administer for dilation, OPHT CLINIC MED ORDERS Start: 08-07-2023 End: 08-08-2023 tropicamide 1 % 1 Drop (MYDR IACYL) Start: 01-31-2022 End: 02-01-2022 tropicamide 1 % 1 Drop (MYDR IACYL) True Metrix Blood Glucose Te st - [...] ected sq daily for 90 days Active V-GO 40 fer (3 sources) Start: 04-25-2021 V-GO 40 fer I ndications: 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 USE DIRECTED. 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 USE DIRECTED. 0 04/25/2021 Active Comment on above: once daily. USE D IRECTED. Vitamin B Complex (20 sources) take 1 tablet by mouth once daily Vitamin B Complex - 1 tablet Orally daily Active VITAMIN B COMPLEX ORAL (1 source) VITAMIN B COMPLE X ORAL Take by mouth every 24 hours. Active vitamin B12 (8 sources) Vitamin B12 Start: 08-21-2023 take 1 tablet by mouth once daily cyanocobalamin (vitamin B-12) Active 1 TAB PO Daily August 20, 2023 11:00pm Start: 08-21-2023 take 1 tablet by jen th once daily cyanocobalamin (vitamin B-12) Active 1 TAB PO Daily August 21, 2023 12:00am Vitamin D 25 MCG (1000 UT) (20 sources) take 1 tablet by jen th once daily Vitamin D 25 MCG (1000 UT) 1 tablet Orally Once a day Active Completed/Discontinued Medications Medication Drug Class(es) Dates Sig (Normalized) Sig (Original) 0.5 ml dulaglutide 1.5 mg/ml auto-injector (12 sources) GLP-1 Receptor Agonist Start: 11-02-2019 End: 08-21-2023 inject 1 mg by subcutaneous injection every week Dulaglutide (Trulicity) 0.75 mg/0.5 mL Pen Injector Discontinued MG SUBCUT every week November 01, 2019 11:00pm August 21, 2023 12:02pm Flash Glucose Scanning [place] (Freestyle Neris 14 Day [place]) misc (8 sources) Start: 08-21-2023 End: 08-21-2023 Flash Glucose Scanning [place] (Freestyle Neris 14 Day [place]) misc Discontinued 0 .Route August 20, 2023 11:00pm August 21, 2023 12:09pm As directed Start: 08-21-2023 End: 08-21-2023 Flash Glucose Scanning [place] r (Freestyle Neris 14 Day [place]) [facility] Discontinued 0 .Route August 21, 2023 12:00am August 21, 2023 1:09pm As directed Flash Glucose Sensor (Freest yle Neris 14 Day Sensor) kit (8 sources) Start: 08-21-2023 End: 08-21-2023 Flash Glucose Sensor (Freest yle Neris 14 Day Sensor) kit Discontinued 0 .Route August 20, 2023 11:00pm August 21, 2023 12:09pm As directed Start: 08-21-2023 End: 08-21-2023 Flash Glucose Sensor (Freest yle Neris 14 Day Sensor) kit Discontinued 0 .Route August 21, 2023 12:00am August 21, 2023 1:09pm As directed hydroCHLOROthiazide 12.5 mg / lisinopril 20 mg oral tablet (15 sources) Thiazide Diuretic, Angiotensin Converting Enzyme Inhibitor Start: 06-30-2019 End: 11-04-2019 take 1 tablet by mouth once daily Lisinopril-Hydrochlorothiazide 20-12.5 mg tablet Discontinued 1 TAB PO Daily June 29, 2019 11:00pm November 04, 2019 12:14pm Start: 05-27-2018 take 1 tablet by jen th twice daily lisinopril-hydrochlorothiazide (PRINZIDE,ZESTORETIC) 20-12.5 mg per tablet Take 1 tablet by mouth twice daily. 0 05/27/2018 Active Comment on above: Take 1 tablet by jen th twice daily. Insulin Aspart U-100 100 unit/mL (3 mL) insulin pen (2 sources) Start: 08-21-2023 End: 08-21-2023 Insulin Aspart U-100 100 unit/mL (3 mL) insulin pen Discontinued 0 UNITS SUBCUT 3x/Day before meals August 21, 2023 12:02pm August 21, 2023 12:12pm 8, 12, or 15 units based on pt's blood glucose Please contact the information source for Protocol details. Insulin Aspart U-100 100 unit/mL insulin pen (2 sources) Start: 01-31-2018 End: 08-21-2023 Insulin Aspart U-100 100 unit/mL insulin pen Discontinued 0 UNITS SUBCUT 3x/Day before meals January 30, 2018 11:00pm August 21, 2023 12:09pm 8, 12, or 15 units based on pt's blood glucose Please contact the information source for Protocol details. Insulin Glargine 100 UNIT/ML (5 sources) Start: [...] skin every 7 (seven) days 12/17/2023 Active Semaglutide (Ozempic) 2 mg/dose (8 mg/3 mL) pen injector (8 sources) Start: 08-21-2023 End: 11-26-2023 inject 2 mg by subcutaneous injection every week Semaglutide (Ozempic) 2 mg/dose (8 mg/3 mL) pen injector Discontinued 2 MG SUBCUT every week August 20, 2023 11:00pm November 26, 2023 1:11pm Start: 08-21-2023 End: 11-26-2023 inject 2 mg [...] every week August 21, 2023 12:00am Tirzepatide (7 sources) Start: 08-21-2023 End: 10-11-2023 Tirzepatide (Mounjaro) 2.5 m g/0.5 mL pen injector Discontinued 2.5 MG SUBCUT every week 2.5 August 20, 2023 11:00pm October 11, 2023 12:52pm Start: 08-21-2023 End: 10-11-2023 Tirzepatide (Mounjaro) 2.5 m g/0.5 mL pen injector Discontinued 2.5 MG SUBCUT every week 2.5 August 21, 2023 12:00am October 11, 2023 1:52pm Start: 08-21-2023 Tirzepatide (M ounjaro) 2.5 mg/0.5 mL pen injector Active 2.5 MG SUBCUT every week 2.5 August 21, 2023 12:00am Tirzepatide (7 sources) Start: 08-21-2023 End: 10-11-2023 inject 2.5 mg by subcutaneous injection every week Tirzepatide (Mounjaro) 5 mg/0.5 mL pen injector Discontinued 5 MG SUBCUT every week 2.5 August 20, 2023 11:00pm October 11, 2023 12:51pm to start after 4 weeks 2.5 mg weekly if tolerated Start: 08-21-2023 End: 10-11-2023 inject 2.5 mg [...] 4 weeks 2.5 mg weekly if tolerated Tirzepatide (15 sources) Start: 12-17-2023 End: 01-22-2024 Tirzepatide (Mounjaro) 7.5 m g/0.5 mL pen injector Discontinued 7.5 MG SUBCUT every week December 17, 2023 1:03pm January 22, 2024 2:25pm Start: 12-17-2023 Tirzepatide (M ounjaro) 7.5 mg/0.5 mL pen injector Active 7.5 MG SUBCUT every week 2 December 17, 2023 2:03pm Start: 10-11-2023 End: 12-17-2023 Tirzepatide (Mounjaro) 7.5 m g/0.5 mL pen injector Discontinued 7.5 MG SUBCUT every week 2 October 11, 2023 12:52pm December 17, 2023 1:04pm Start: 10-11-2023 End: 12-17-2023 Tirzepatide (Mounjaro) 7.5 [...] Discontinued 7.5 MG SUBCUT every week October 10, 2023 11:00pm October 11, 2023 12:53pm Start: 10-11-2023 End: 10-11-2023 Tirzepatide (Mounjaro) 7.5 m g/0.5 mL pen injector Discontinued 7.5 MG SUBCUT every week October 11, 2023 12:00am October 11, 2023 1:53pm Problems Active Problems Problem Classification Problem Date Documented Da te Episodic/Chronic Administrative/social admission (9 sources) Dietary counseling and surveillance Onset: 1 Resolved: 2 Episodic Anxiety disorders (20 sources) Anxiety; Translations: [Anxiety disorder, unspecified] Onset: 3 04-02-2023 Chronic Attention-deficit, conduct, and disruptive behavior disorders (20 sources) Attention deficit hyperactivity disorder; Translations: [Attention-deficit hyperactivity disorder, unspecified type] Onset: 4 08-21-2023 Chronic Attention-deficit, conduct, and disruptive behavior disorders (17 sources) Attention-deficit hyperactivity disorder, unspecified type; Translations: [Attention deficit disorder with hyperactivity] Onset: 1 Resolved: 2 Chronic Blindness and vision defects (15 sources) Blindness AND/OR vision impairment level; Translations: [Unspecified visual loss] Onset: 4 06-07-2023 Chronic Cancer of uterus (18 sources) Adenocarcinoma of endometrium; Translations: [Malignant neoplasm of endometrium] Onset: 8 06-07-2023 Chronic Cardiac dysrhythmias (12 sources) Tachycardia; Translations: [Tachycardia, unspecified] 06-27-2019 Episodic Cataract (20 sources) Nuclear sclerotic cataract; Translations: [Age-related nuclear cataract, bilateral] Onset: 8 Chronic Developmental disorders (16 sources) Developmental academic disorder; Translations: [Developmental disorder of scholastic skills, unspecified] Onset: 4 06-07-2023 Chronic Diabetes mellitus with complications (20 sources) Diabetic ketoacidosis; Translations: [Type 2 diabetes mellitus with ketoacidosis without coma] Onset: 7 Resolved: 5 Chronic Diabetes mellitus without complication (1 source) Diabetes mellitus without complication Onset: 2 05-22-2024 Diseases of white blood cells (12 sources) Leukocytosis; Translations: [Elevated white blood cell count, unspecified] 06-27-2019 Chronic Disorders of lipid metabolism (20 sources) Hyperlipidemia; Translations: [Hyperlipidemia, unspecified] Onset: 1 Resolved: 2 Chronic Disorders usually diagnosed in infancy, childhood, or adolescence (20 sources) Autism spectrum disorder; Translations: [Autistic disorder] Onset: 1 Resolved: 2 Chronic Diverticulosis and diverticulitis (20 sources) Diverticular disease; Translations: [Diverticulosis of intestine, [...] deficiency, unspecified] Onset: 1 Resolved: 2 Chronic Other aftercare (20 sources) Long-term current use of insulin; Translations: [FCI (current) use of insulin] Onset: 4 Resolved: 5 06-07-2023 Episodic Other aftercare (9 sources) Encounter for therapeutic drug level monitoring Onset: 1 Resolved: 2 Episodic Other aftercare (18 sources) 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; Translations: [Long-term (current) use of insulin] Onset: 1 Resolved: 2 Episodic Other aftercare (1 source) Other joint terminal attack controller (current) drug therapy; Translations: [OTH MEAT SALES AND STORAGE MANAGER CURRENT DRUG THERAPY] Onset: 3 Episodic Other aftercare (1 source) ferry terminal supervisor (current) use of oral hypoglycemic drugs; Translations: [MEAT SALES AND STORAGE MANAGER USE ORAL HYPOGLYCEMIC DX] Onset: 3 Episodic Other eye disorders (3 sources) Vitreomacular adhesion of bilateral eyes; 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, bilateral] Onset: 8 10-11-2017 Chronic Other gastrointestinal disorders (7 sources) Constipation; Translations: [Constipation, unspecified] Episodic Other liver diseases (20 sources) Steatosis of liver; Translations: [Fatty (change of) liver, not elsewhere classified] Onset: 3 04-02-2023 Chronic Other liver diseases (8 sources) Fatty (change of) liver, not elsewhere [...] [Body mass index (BMI) 40.0-44.9, adult] Onset: 4 Resolved: 4 08-21-2023 Chronic Other nutritional; endocrine; and metabolic disorders (18 sources) Body mass index (BMI) 40.0-44.9, adult; Translations: [Body Mass Index 40.0-44.9, adult] Onset: 1 Resolved: 2 Chronic Other nutritional; endocrine; and metabolic disorders (1 source) Morbid (severe) obesity due to excess calories; Translations: [MORBID SEVERE OBES D/T EXCESS YULIYA] Onset: 3 Chronic Other nutritional; endocrine; and metabolic disorders (20 sources) Severe obesity; Translations: [Morbid (severe) obesity due to excess calories] Onset: 3 04-02-2023 Chronic Other nutritional; endocrine; and metabolic disorders (5 sources) Obesity caused by energy imbalance; Translations: [Morbid (severe) obesity due to excess calories] Onset: 3 05-01-2024 Chronic Other nutritional; endocrine; and metabolic disorders (1 source) Obese class III 05-22-2024 Chronic Other nutritional; endocrine; and metabolic disorders (5 sources) Weight gain; Translations: [Abnormal weight gain] 08-21-2023 Episodic Other nutritional; endocrine; and metabolic disorders (8 sources) Abnormal weight gain; Translations: [Abnormal weight gain] 08-21-2023 Episodic Other nutritional; endocrine; and metabolic disorders (2 sources) Weight increased; Translations: [Abnormal weight gain] 04-30-2024 Episodic Other screening for suspected conditions (not mental disorders or infectious disease) (20 sources) Patient encounter status; Translations: [Encounter for screening mammogram for malignant neoplasm of breast] Onset: 4 06-07-2023 Episodic Other skin disorders (2 sources) Corns and callosities Onset: 2 Resolved: 2 Episodic Other upper respiratory disease (16 sources) Allergic disposition; Translations: [Other allergic rhinitis] Onset: 4 10-15-2023 Chronic Residual codes; unclassified (20 sources) Noncompliance with medication regimen; Translations: [Patient's other noncompliance with medication regimen] 06-27-2019 Episodic Retinal detachments; defects; vascular occlusion; and retinopathy (20 sources) Bilateral retinopathy; Translations: [Unspecified background retinopathy] Onset: 4 Resolved: 5 08-21-2023 Chronic Screening and history of mental health and substance abuse codes (1 source) Personal history of nicotine dependence; Translations: [PERSONAL HISTORY OF NICOTINE DEPEND] Onset: 3 Episodic Substance-related disorders (20 sources) Opioid withdrawal; Translations: [Opioid dependence with withdrawal] Onset: 4 06-07-2023 Chronic Unclassified (1 source) Blood glucose normal; Translations: [Normal blood glucose level] Unclassified (5 sources) Patient encounter status 02-21-2024 Past or Other Problems Problem Classification Problem Date Documented Da te Episodic/Chronic Abdominal pain (20 sources) Abdominal pain; Translations: [Unspecified abdominal pain] Onset: 08-07-2022 Episodic Diabetes mellitus without complication (20 sources) Diabetes mellitus without complication; Translations: [Type 2 diabetes mellitus without complications] Onset: 08-08-2022 Resolved: 08-02-2016 04-02-2023 Chronic Genitourinary symptoms and ill-defined conditions (16 sources) Abnormal urinalysis; Translations: [Unspecified abnormal findings in urine] Onset: 04-02-2023 04-02-2023 Episodic Mood disorders (14 sources) Mood disorders Onset: 06-07-2023 06-07-2023 Nutritional deficiencies (20 sources) Deficiency of other specified B group vitamins; Translations: [Vitamin deficiency] Onset: 04-11-2021 Resolved: 09-27-2021 Episodic Other gastrointestinal disorders (2 sources) Constipation, unspecified; Translations: [Constipation, unspecified] Onset: 12-04-2022 Episodic Results Test Name Value Interpretation Reference Range Facility OCT MACULA CIRRUS OU (BOTH E YES)on 06-03-2024 [facility] Radiology Study observation (narrative) [facility] Ambulatory Visit Summaryon 0 05-27-2024 Ambulatory Visit Summary Ambulatory Visit Summary TASHA PAUL :1975 Visit Date:05/27/2024 Ambulatory Visit Instructions Your Diagnosis Screening for malignant neoplasm of colon Your Care Team Attending Physician - Donell MCGRATH MD Primary Care Physician - SONYA MEJIA CNP Referring Physician - SONYA MEJIA CNP This Is Your Medications List Contact prescribing physician if questions or concerns amlodipine (amLODIPine 10 mg Tab) ammonium lactate topical (Lac-Hydrin 12% topical lotion) atorvastatin (Lipitor 80 mg Tab) insulin aspart (Fiasp 100 units/mL injectable solution) insulin glargine (Basaglar KwikPen) lisinopril (lisinopril 40 mg Tab) loratadine (loratadine 10 mg Tab) metformin (metformin 1000 mg Tab) multivitamin (Multi Vitamins oral tablet) omeprazole (omeprazole 40 mg Cap-DR) sertraline (Zoloft 50 mg Tab) tirzepatide (Mounjaro 10 mg/0.5 mL subcutaneous solution) Procedures Performed Extraction of wisdom tooth, Laparoscopy, Laser eye surgery, [facility] BSO - Total abdominal hysterectomy and bilateral salpingo-oophorectomy, Tonsillectomy. Discharge Vitals Heart Rate (Peripheral) 72 Respiratory Rate 16 Blood Pressure 126/88 Height 167.6 cm Height 66 in Weight 121.1 kg Weight 266.979 lb BMI 43.11 Medications What How Much When Instructions Unchanged amlodipine (amLODIPine 10 mg Tab) 1 Tablets By Mouth Every day Contact prescribing physician if questions or concerns Unchanged ammonium lactate topical (Lac-Hydrin 12% topical lotion) 1 Application Topical 2 times a day Contact prescribing physician if questions or concerns Unchanged atorvastatin (Lipitor 80 mg Tab) 1 Tablets By Mouth Every day Contact prescribing physician if questions or concerns Unchanged insulin aspart (Fiasp 100 units/ mL injectable solution) as directed Contact prescribing physician if questions or concerns Unchanged insulin glargine (Basaglar KwikPen) 30 Units Subcutaneous Every day Contact prescribing physician if questions or concerns Unchanged lisinopril (lisinopril 40 mg Tab) 1 Tablets By Mouth Every day Contact prescribing physician if questions or concerns Unchanged loratadine (loratadine 10 mg Tab) 1 Tablets By Mouth Every day Contact prescribing physician if questions or concerns Unchanged metformin (metformin 1000 mg Tab) 1 Tablets By Mouth 2 times a day Contact prescribing physician if questions or concerns Unchanged multivitamin (Multi Vitamins oral tablet) 1 Tablets By Mouth Every day Contact prescribing physician if questions or concerns Unchanged omeprazole (omeprazole 40 mg Cap-DR) 1 Capsules By Mouth Every day Contact prescribing physician if questions or concerns Unchanged sertraline (Zoloft 50 mg Tab) 1 Tablets By Mouth Every day Contact prescribing physician if questions or concerns Unchanged tirzepatide (Mounjaro 10 mg/ 0.5 mL subcutaneous solution) 10 Milligram Subcutaneous Every week Contact prescribing physician if questions or concerns Allergies dulaglutide (Vomiting) Problems Ongoing - Any problem that you are currently receiving treatment for. Adenocarcinoma of endometrium Attention deficit hyperactivity disorder Bilateral proliferative retinopathy due to diabetes mellitus type 2 BMI 40.0-44.9, adult Class 3 obesity Diabetes mellitus Drug abuse in remission. Dyslipidemia Essential hypertension Gastroesophageal reflux disease Learning disability Mixed anxiety and depressive disorder Screening for malignant neoplasm of colon Steatosis of liver Patient Survey You may receive a survey via text or e-mail asking about your office visit. Please share your experience with us by completing your survey. We appreciate your feedback and thank you for choosing us for your care. Normal [facility] HbA1c HPLC (Bld) [Mass fract ion]on 03-03-2024 HbA1c (Bld) [Mass fraction] Hemoglobin A1c/Hemoglobin.total in Blood by HPLC [facility] No Panel Informationon 03-03 Bedside Glucose 166 [facility] ALL CBC WITH AUTO DIFFon BASOPHILS ABSOLUTE AUTO 0.1 [facility] Basophils/100 WBC (Bld) 0.9 % 0.2 - 2.0 % [facility] Eosinophils/100 WBC (Bld) 1.2 % 0.9 - 7.0 % [facility] Eryth[facility] distribution width (RBC) [Ratio] 13.3 % 11.0 - 15.0 % [facility] Hematocrit (Bld) [Volume fraction] 43.0 % 36.0 - 48.0 % [facility] Hemoglobin (Bld) [Mass/Vol] 14.5 g/dL 12.0 - 16.0 g/dL [facility] IMMATURE GRANULOCYTES ABS AUTO 0.04 High [facility] Immature granulocytes/100 WBC (Bld) 0.3 % 0.0 - 0.5 % [facility] Interpretation and review of laboratory results Abnormal [facility] LYMPHOCYTES ABSOLUTE AUTO 3.9 High [facility] Lymphocytes/100 WBC (Bld) 32.0 % 20.5 - 60.0 % [facility] MCH (RBC) [Entitic mass] 28.8 pg 26.7 - 34.0 pg [facility] MCHC (RBC) [Mass/Vol] 33.7 g/dL 29.9 - 35.2 g/dL [facility] MCV (RBC) [Entitic vol] 85.5 fL 81.0 - 99.0 fL [facility] MONOCYTES ABSOLUTE AUTO 0.8 [facility] Monocytes/100 WBC (Bld) 6.3 % 1.7 - 12.0 % [facility] NEUTROPHILS ABSOLUTE AUTO 7.2 High [facility] Neutrophils/100 WBC (Bld) 59.3 % 43.0 - 75.0 % [facility] Platelet mean volume (Bld) [Entitic vol] 9.8 fL 9.5 - 13.5 fL [facility] EO # 0.1 [facility] PLT 311 [facility] RBC 5.03 [facility] WBC 12.1 High [facility] No Panel Informationon 01-21 Bedside Glucose 174 [facility] MICROALB CREAT RATIO RAN DOMon 01-22-2024 CREATININE URINE RANDOM 234.83 mg/dL 20.00 - 300.00 mg/dL [facility] MICROALBUM CREATININE RATIO UR 8.5 mg/g 0.0 - 29.9 mg/g [facility] Comment on above: NO MICROALBUMINURIA 0-29 MG/G CLINICAL MICROALBUMINURIA 30-300 MG/G MACROALBUMINURIA >300 MG/G MICROALBUMIN URINE RANDOM 2.0 mg/dL NINF - 30.0 mg/dL [facility] UA (CLEAN/CATCH) MICROSC OPIC IF INDICATEon 01-22-2024 BILIRUBIN URINE Negative NEGATIVE [facility] BLOOD URINE Negative NEGATIVE [facility] Clarity (U) CLEAR CLEAR [facility] Color (U) YELLOW YELLOW [facility] GLUCOSE URINE UA 100 mg/dL Abnormal NEGATIVE [facility] Interpretation and review of laboratory results Abnormal [facility] Ketones Ql (U) Negative NEGATIVE mg/dL [facility] Leukocyte esterase Test strip Ql (U) Negative NEGATIVE [facility] NITRITE URINE Negative NEGATIVE [facility] pH (U) 5.5 [pH] 5.0 - 9.0 [facility] PROTEIN URINE Negative NEG/TRACE mg/dL [facility] SPECIFIC GRAVITY URINE >=1.030 Abnormal 1.005 - 1.[address] [facility] URINE MICROSCOPIC INDICATED NO [facility] UROBILINOGEN URINE 0.2 EU/dL 0.2 - 1.0 EU/dL [facility] HbA1c HPLC (Bld) [Mass fract ion]on 11-26-2023 HbA1c (Bld) [Mass fraction] 8.4 % [facility] No Panel Informationon 11-25 Bedside Glucose 72 [facility] Alanine aminotransferase [En zymatic activity/volume] in Serum or PlasmaOrdered By: Glenna Quinones on 08-21-2023 ALT [Catalytic activity/Vol] 31 U/L 7-52 [facility] Albumin [Mass/volume] in Ser um or Plasma by Bromocresol green (BCG) dye binding methoOrdered By: Glenna Quinones on 08-21-2023 Albumin BCG dye [Mass/Vol] 4.1 g/dL 3.5-5.7 [facility] Alkaline phosphatase [Enzyma tic activity/volume] in Serum or PlasmaOrdered By: Glenna Quinones on 08-21-2023 ALP [Catalytic activity/Vol] 84 U/L 34-104 [facility] Aspartate aminotransferase [ Enzymatic activity/volume] in Serum or PlasmaOrdered By: Glenna Quinones on 08-21-2023 AST [Catalytic activity/Vol] 21 U/L 13-39 [facility] Bilirubin.total [Mass/volume ] in Serum or PlasmaOrdered By: Glenna Quinones on 08-21-2023 Bilirubin [Mass/Vol] 0.5 mg/dL 0.3-1.0 [facility] Calcium [Mass/volume] in Ser um or PlasmaOrdered By: Glenna Quinones on 08-21-2023 Calcium [Mass/Vol] 9.8 mg/dL 8.6-10.3 [facility] Carbon dioxide, total [Moles /volume] in Serum or PlasmaOrdered By: Glenna Quinones on 08-21-2023 CO2 [Moles/Vol] 30.1 mmol/L 21.0-31.0 [facility] Chloride [Moles/volume] in S cindy or PlasmaOrdered By: Glenna Quinones on 08-21-2023 Chloride [Moles/Vol] 102 mmol/L 98-107 [facility] Cholesterol [Mass/volume] in Serum or PlasmaOrdered By: Glenna Quinones on 08-21-2023 Cholesterol [Mass/Vol] 245 mg/dL 140-200 [facility] Comment on above: Chol less than 200 m g/dl low riskChol 201-239 mg/dl borderline riskChol 240 mg/dl and greater high risk Cholesterol in LDL Calc [Mas s/Vol]Ordered By: Glenna Quinones on 08-21-2023 Cholesterol in LDL [Mass/Vol] TNP [facility] Comment on above: Test not performed Cholesterol in LDL [Mass/vol ume] in Serum or PlasmaOrdered By: Glenna Quinones on 08-21-2023 Cholesterol in LDL [Mass/Vol] 173 mg/dL 0-100 [facility] Comment on above: LDL ATP III CLASSIFI CATIONLDL less than 100 mg/dL OptimalLDL 100-129 mg/dL Near or above optimalLDL 130-159 mg/dL Borderline highLDL 160-189 mg/dL HighLDL greater than 189 mg/dL Very high Cholesterol in VLDL Calc [Ma ss/Vol]Ordered By: Glenna Quinones on 08-21-2023 Cholesterol in VLDL [Mass/Vol] 91 mg/dL [facility] Comprehensive Metabolic Pane santos 08-21-2023 Albumin [Mass/Vol] 4.1 g/dL Normal 3.5-5.7 [facility] Comment on above: Order Comment: Reaso n for Exam Right upper quadrant abdominal pain Performed By: #### H EPATIC, CBC, KEYLA, PT, LIPID, FE and TIBC, NATHALY, LIPASE #### [address] #### HBSAG, HCV RX PCR, CARSON CHOICE, SMAB, HBSAB, HBCAB, ALPHA PHEN, CERULOP #### [facility] , Albumin/Globulin [Mass ratio] 1.5 {ratio} Normal [facility] Comment on above: Order Comment: Reaso n for Exam Right upper quadrant abdominal pain Performed By: #### H EPATIC, CBC, KEYLA, PT, LIPID, FE and TIBC, NATHALY, LIPASE #### [address] #### HBSAG, HCV RX PCR, CARSON CHOICE, SMAB, HBSAB, HBCAB, ALPHA PHEN, CERULOP #### [facility] , ALP [Catalytic activity/Vol] 84 U/L Normal 34-104 [facility] Comment on above: Order Comment: Reaso n for Exam Right upper quadrant abdominal pain Performed By: #### H EPATIC, CBC, KEYLA, PT, LIPID, FE and TIBC, NATHALY, LIPASE #### [address] #### HBSAG, HCV RX PCR, CARSON CHOICE, SMAB, HBSAB, HBCAB, ALPHA PHEN, CERULOP #### [facility] , ALT [Catalytic activity/Vol] 31 U/L Normal 7-52 [facility] Comment on above: Order Comment: Reaso n for Exam Right upper quadrant abdominal pain Performed By: #### H EPATIC, CBC, KEYLA, PT, LIPID, FE and TIBC, NATHALY, LIPASE #### [place] [address] [place] #### HBSAG, HCV RX PCR, CARSON CHOICE, SMAB, HBSAB, HBCAB, ALPHA PHEN, CERULOP #### [facility] , Anion gap [Moles/Vol] 14.0 mmol/L Normal 6.0-15.0 [facility] Comment on above: Order Comment: Reaso n for Exam Right upper quadrant abdominal pain Performed By: #### H EPATIC, CBC, KEYLA, PT, LIPID, FE and TIBC, NATHALY, LIPASE #### [address] #### HBSAG, HCV RX PCR, CARSON CHOICE, SMAB, HBSAB, HBCAB, ALPHA PHEN, CERULOP #### [facility] , AST [Catalytic activity/Vol] 21 U/L Normal 13-39 [facility] Comment on above: Order Comment: Reaso n for Exam Right upper quadrant abdominal pain Performed By: #### H EPATIC, CBC, KEYLA, PT, LIPID, FE and TIBC, NATHALY, LIPASE #### [address] #### HBSAG, HCV RX PCR, CARSON CHOICE, SMAB, HBSAB, HBCAB, ALPHA PHEN, CERULOP #### [facility] , Bilirubin [Mass/Vol] 0.5 mg/dL Normal 0.3-1.0 [facility] Comment on above: Order Comment: Reaso n for Exam Right upper quadrant abdominal pain Performed By: #### H EPATIC, CBC, KEYLA, PT, LIPID, FE and TIBC, NATHALY, LIPASE #### [address] #### HBSAG, HCV RX PCR, CARSON CHOICE, SMAB, HBSAB, HBCAB, ALPHA PHEN, CERULOP #### [facility] , Calcium [Mass/Vol] 9.8 mg/dL Normal 8.6-10.3 [facility] Comment on above: Order Comment: Reaso n for Exam Right upper quadrant abdominal pain Performed By: #### H EPATIC, CBC, KEYLA, PT, LIPID, FE and TIBC, NATHALY, LIPASE #### [place] [address] [place] #### HBSAG, HCV RX PCR, CARSON CHOICE, SMAB, HBSAB, HBCAB, ALPHA PHEN, CERULOP #### [facility] , Chloride [Moles/Vol] 102 mmol/L Normal 98-107 [facility] Comment on above: Order Comment: Reaso n for Exam Right upper quadrant abdominal pain Performed By: #### H EPATIC, CBC, KEYLA, PT, LIPID, FE and TIBC, NATHALY, LIPASE #### [address] #### HBSAG, HCV RX PCR, CARSON CHOICE, SMAB, HBSAB, HBCAB, ALPHA PHEN, CERULOP #### [facility] , CO2 [Moles/Vol] 30.1 mmol/L Normal 21.0-31.0 [facility] Comment on above: Order Comment: Reaso n for Exam Right upper quadrant abdominal pain Performed By: #### H EPATIC, CBC, KEYLA, PT, LIPID, FE and TIBC, NATHALY, LIPASE #### [address] #### HBSAG, HCV RX PCR, CARSON CHOICE, SMAB, HBSAB, HBCAB, ALPHA PHEN, CERULOP #### [facility] , Creatinine [Mass/Vol] 0.61 mg/dL Normal 0.60-1.20 [facility] Comment on above: Order Comment: Reaso n for Exam Right upper quadrant abdominal pain Performed By: #### H EPATIC, CBC, KEYLA, PT, LIPID, FE and TIBC, NATHALY, LIPASE #### [place] [address] [place] #### HBSAG, HCV RX PCR, CARSON CHOICE, SMAB, HBSAB, HBCAB, ALPHA PHEN, CERULOP #### [facility] , GFR/1.73 sq M.predicted MDRD (S/P/Bld) [Vol rate/Area] mL/min/{1.73_m2} Normal [facility] Comment on above: Order Comment: Reaso n for Exam Right upper quadrant abdominal pain Performed By: #### H EPATIC, CBC, KEYLA, PT, LIPID, FE and TIBC, NATHALY, LIPASE #### [address] #### HBSAG, HCV RX PCR, CARSON CHOICE, SMAB, HBSAB, HBCAB, ALPHA PHEN, CERULOP #### [facility] , Globulin (S) [Mass/Vol] 2.7 g/dL Normal [facility] Comment on above: Order Comment: Reaso n for Exam Right upper quadrant abdominal pain Performed By: #### H EPATIC, CBC, KEYLA, PT, LIPID, FE and TIBC, NATHALY, LIPASE #### [place] [address] [place] #### HBSAG, HCV RX PCR, CARSON CHOICE, SMAB, HBSAB, HBCAB, ALPHA PHEN, CERULOP #### [facility] , Glucose [Mass/Vol] 54 mg/dL Low 70-100 [facility] Comment on above: Order Comment: Reaso n for Exam Right upper quadrant abdominal pain Result Comment: [facility] Glucose Reference Range is dependent on time and content of last meal. Glucose of more than 200 mg/dL in a nonstressed, ambulatory subject supports the diagnosis of Diabetes Mellitus. ADA recommended reference range Performed By: #### H EPATIC, CBC, KEYLA, PT, LIPID, FE and TIBC, NATHALY, LIPASE #### [place] [address] [place] #### HBSAG, HCV RX PCR, CARSON CHOICE, SMAB, HBSAB, HBCAB, ALPHA PHEN, CERULOP #### [facility] , Potassium [Moles/Vol] 4.1 mmol/L Normal 3.5-5.1 [facility] Comment on above: Order Comment: Reaso n for Exam Right upper quadrant abdominal pain Performed By: #### H EPATIC, CBC, KEYLA, PT, LIPID, FE and TIBC, NATHALY, LIPASE #### [place] [address] [place] #### HBSAG, HCV RX PCR, CARSON CHOICE, SMAB, HBSAB, HBCAB, ALPHA PHEN, CERULOP #### [facility] , Protein [Mass/Vol] 6.8 g/dL Normal 6.4-8.9 [facility] Comment on above: Order Comment: Reaso n for Exam Right upper quadrant abdominal pain Performed By: #### H EPATIC, CBC, KEYLA, PT, LIPID, FE and TIBC, NATHALY, LIPASE #### [facility] [address] [place] [address] [place] #### HBSAG, HCV RX PCR, CARSON CHOICE, SMAB, HBSAB, HBCAB, ALPHA PHEN, CERULOP #### [facility] , Sodium [Moles/Vol] 142 mmol/L Normal 136-145 [facility] Comment on above: Order Comment: Reaso n for Exam Right upper quadrant abdominal pain Performed By: #### H EPATIC, CBC, KEYLA, PT, LIPID, FE and TIBC, NATHALY, LIPASE #### [facility] [address] [place] [address] [place] #### HBSAG, HCV RX PCR, CAROSN CHOICE, SMAB, HBSAB, HBCAB, ALPHA PHEN, CERULOP #### [facility] , Urea nitrogen [Mass/Vol] 22 mg/dL Normal 7-25 [facility] Comment on above: Order Comment: Reaso n for Exam Right upper quadrant abdominal pain Performed By: #### H EPATIC, CBC, KEYLA, PT, LIPID, FE and TIBC, NATHALY, LIPASE #### [facility] [address] [place] [address] [place] #### HBSAG, HCV RX PCR, CARSON CHOICE, SMAB, HBSAB, HBCAB, ALPHA PHEN, CERULOP #### [facility] , Creatinine [Mass/volume] in Serum or PlasmaOrdered By: Glenna Quinones on 08-21-2023 Creatinine [Mass/Vol] 0.61 mg/dL 0.60-1.20 [facility] Globulin Calc (S) [Mass/Vol] Ordered By: Glenna Quinones on 08-21-2023 Globulin (S) [Mass/Vol] 2.7 g/dL [facility] Glucose [Mass/volume] in Ser um or PlasmaOrdered By: Glenna Quinones on 08-21-2023 Glucose [Mass/Vol] 54 mg/dL 70-100 [facility] Comment on above: ADA recommended refe rence rangeRandom Glucose Reference Range is dependent on time and content of last meal. Glucose of more than 200 mg/dL in a nonstressed, ambulatory subject supports the diagnosis of Diabetes Mellitus. LDL Cholesterol Measuredon 0 08-21-2023 LDL Cholesterol Measured 173 mg/dL High 0-100 [facility] Comment on above: Order [...] LIPID, FE and TIBC, NATHALY, LIPASE #### [address] #### HBSAG, HCV RX PCR, CARSON CHOICE, SMAB, HBSAB, HBCAB, ALPHA PHEN, CERULOP #### [facility] , Lipid Panelon 08-21-2023 Cholesterol [Mass/Vol] 245 mg/dL High 140-200 [facility] Comment on above: Order Comment: Reaso n for Exam Right upper quadrant abdominal pain Result Comment: Chol less than 200 mg/dl low risk Chol 201-239 mg/dl borderline risk Chol 240 mg/dl and greater high risk Performed By: #### H EPATIC, CBC, KEYLA, PT, LIPID, FE and TIBC, NATHALY, LIPASE #### [place] [address] [place] #### HBSAG, HCV RX PCR, CARSON CHOICE, SMAB, HBSAB, HBCAB, ALPHA PHEN, CERULOP #### [facility] , Cholesterol in HDL [Mass/Vol] 45 mg/dL Normal 23-92 [facility] Comment on above: Order Comment: Reaso n for Exam Right upper quadrant abdominal pain Result Comment: HDL CHOL ATP-III CLASSIFICATION Cardiovascular Risk HDL > or equal to 60 mg/dL LOW HDL < 40 mg/dL HIGH Performed By: #### H EPATIC, CBC, KEYLA, PT, LIPID, FE and TIBC, NATHALY, LIPASE #### [place] [address] [place] #### HBSAG, HCV RX PCR, CARSON CHOICE, SMAB, HBSAB, HBCAB, ALPHA PHEN, CERULOP #### [facility] , Cholesterol.total/Chol esterol in HDL [Mass ratio] 5.4 {ratio} Normal <5.0 [facility] Comment on above: Order Comment: Reaso n for Exam Right upper quadrant abdominal pain Performed By: #### H EPATIC, CBC, KEYLA, PT, LIPID, FE and TIBC, NATHALY, LIPASE #### [facility] [address] #### HBSAG, HCV RX PCR, CARSON CHOICE, SMAB, HBSAB, HBCAB, ALPHA PHEN, CERULOP #### [facility] , LDL Cholesterol,Calculated Not performed Normal 0-100 [facility] Comment on above: Order Comment: Reaso n for Exam Right upper quadrant abdominal pain Performed By: #### H EPATIC, CBC, KEYLA, PT, LIPID, FE and TIBC, NATHALY, LIPASE #### [facility] [address] #### HBSAG, HCV RX PCR, CARSON CHOICE, SMAB, HBSAB, HBCAB, ALPHA PHEN, CERULOP #### [facility] , Triglyceride w/Reflex 459 mg/dL High 0-149 [facility] Comment on above: Order [...] LIPID, FE and TIBC, NATHALY, LIPASE #### [facility] [address] [place] [address] [place] #### HBSAG, HCV RX PCR, CARSON CHOICE, SMAB, HBSAB, HBCAB, ALPHA PHEN, CERULOP #### [facility] , VLDL CHOLESTEROL 91 mg/dL Normal [facility] Comment on above: Order Comment: Reaso n for Exam Right upper quadrant abdominal pain Performed By: #### H EPATIC, CBC, KEYLA, PT, LIPID, FE and TIBC, NATHALY, LIPASE #### [facility] [address] #### HBSAG, HCV RX PCR, CARSON CHOICE, SMAB, HBSAB, HBCAB, ALPHA PHEN, CERULOP #### [facility] , No Panel InformationOrdered By: Glenna Quinones on 08-21-2023 Estimated GFR (CKD-EPI) > 60.0 mL/Min [facility] Creatinine Clearance (Chem N/A [facility] No Panel Informationon 08-20 Bedside Glucose 129 [facility] Potassium [Moles/volume] in Serum or PlasmaOrdered By: Glenna Quinones on 08-21-2023 Potassium [Moles/Vol] 4.1 mmol/L 3.5-5.1 [facility] Protein [Mass/volume] in Ser um or PlasmaOrdered By: Glenna Quinones on 08-21-2023 Protein [Mass/Vol] 6.8 g/dL 6.4-8.9 [facility] Serum or plasma albumin/glob ulin mass ratioOrdered By: Glenna Quinones on 08-21-2023 Albumin/Globulin [Mass ratio] 1.5 {ratio} [facility] Serum or plasma anion gap de terminationOrdered By: Glenna Quinones on 08-21-2023 Anion gap [Moles/Vol] 14.0 mmol/L 6.0-15.0 [facility] Serum or plasma high density lipoprotein (HDL) cholesterol measurementOrdered By: Glenna Quinones on 08-21-2023 Cholesterol in HDL [Mass/Vol] 45 mg/dL 23-92 [facility] Comment on above: HDL CHOL ATP-III CLA SSIFICATION Cardiovascular RiskHDL > or equal to 60 mg/dL LOWHDL < 40 mg/dL HIGH Serum or plasma total choles terol/high density lipoprotein (HDL) cholesterol mass ratOrdered By: Glenna Quinones on 08-21-2023 Cholesterol.total/Chol esterol in HDL [Mass ratio] 5.4 {ratio} <5.0 [facility] Sodium [Moles/volume] in Ser um or PlasmaOrdered By: Glenna Quinones on 08-21-2023 Sodium [Moles/Vol] 142 mmol/L 136-145 [facility] Thyroid Stim Hormone w/Rflxo n 08-21-2023 Thyroid Stim Hormone w/Rflx 1.85 u[iU]/mL Normal 0.45-5.33 [facility] Comment on above: Order Comment: Reaso n for Exam Right upper quadrant abdominal pain Result Comment: PERF ORMED BY: [place] [address] PATHOLOGIST OPTICAL ENGINEERING MANAGER HILARIA REES M.D. Performed By: #### H EPATIC, CBC, KEYLA, PT, LIPID, FE and TIBC, NATHALY, LIPASE #### [place] [address] [place] #### HBSAG, HCV RX PCR, CARSON CHOICE, SMAB, HBSAB, HBCAB, ALPHA PHEN, CERULOP #### [facility] , Thyrotropin [Units/volume] i n Serum or PlasmaOrdered By: Glenna Quinones on 08-21-2023 TSH Qn 1.85 m[IU]/L 0.45-5.33 [facility] Triglyceride [Mass/volume] i n Serum or PlasmaOrdered By: Glenna Quinones on 08-21-2023 Triglyceride [Mass/Vol] 459 mg/dL 0-149 [facility] Comment on above: If the [...] 08-21-2023 Urea nitrogen [Mass/Vol] 22 mg/dL 7-25 [facility] Vitamin B12on 08-21-2023 Cobalamin (Vitamin B12) [Mass/Vol] 507 pg/mL Normal 180-914 [facility] Comment on above: Order Comment: Reaso n for Exam Right upper quadrant abdominal pain Performed By: #### H EPATIC, CBC, KEYLA, PT, LIPID, FE and TIBC, NATHALY, LIPASE #### [facility] [address] [place] [address] [place] #### HBSAG, HCV RX PCR, CARSON CHOICE, SMAB, HBSAB, HBCAB, ALPHA PHEN, CERULOP #### [facility] , Vitamin B12 ser/plasOrdered By: Glenna Quinones on 08-21-2023 Cobalamin (Vitamin B12) [Mass/Vol] 507 pg/mL 180-914 [facility] Laboratory - Hematology and Cell countson 05-28-2023 HbA1c (Bld) [Mass fraction] 10.1 % [facility] A1C HEMOGLOBINon 02-19-2023 HbA1c (Bld) [Mass fraction] 8.6 % [employer] Other Glucose - FINGER STICKon Glucose [Mass/Vol] 160 mg/dL [employer] Other HbA1c (Bld) [Mass fraction]o n 02-19-2023 A1C HEMOGLOBIN [employer] Other Pancreatic Elastase, Stoolon 12-06-2022 Pancreatic Elastase, Stool 305 Normal >200 [facility] Comment on above: Order Comment: Reaso n for Exam 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 disease) Result Comment: Resu lt Units: ug Elast./g Severe Pancreatic Insufficiency: <100 Moderate Pancreatic Insufficiency: 100 - 200 Normal: >200 Performed at: - [address] [id number] Unit Nurse: Karli Lux MD, Phone: [phone] PERFORMED BY: [facility] [address] [place] [address] PATHOLOGIST OPTICAL ENGINEERING MANAGER HILARIA REES M.D. Performed By: #### E LASTASE STOOL #### [facility] , CARSON with Reflexon 08-14-2023 CARSON with Reflex Negative Normal Negative [facility] Comment on above: Order Comment: Reaso n for Exam Right upper quadrant abdominal pain Result Comment: Perf ormed at: - [facility] [address] [id number] Unit Nurse: Iftikhar Romero PhD, Phone: [phone] Performed By: #### H EPATIC, CBC, KEYLA, PT, LIPID, FE and TIBC, NATHALY, LIPASE #### [facility] [address] [place] [address] #### HBSAG, HCV RX PCR, CARSON CHOICE, SMAB, HBSAB, HBCAB, ALPHA PHEN, CERULOP #### [facility] , Actin smooth muscle IgG Ab [ Units/volume] in SerumOrdered By: Mark Gramajo on 12-04-2022 Actin smooth muscle IgG Qn (S) 6 Units 0-19 [facility] Comment on above: Negative 0 - 19 Weak positive 20 - 30 Moderate to strong positive >30 Actin Antibodies are found in 52-85% of patients with autoimmune hepatitis or chronic active hepatitis and in 22% of patients with primary biliary cirrhosis. Alanine aminotransferase [En zymatic activity/volume] in Serum or PlasmaOrdered By: Mark Gramajo on 12-04-2022 ALT [Catalytic activity/Vol] 15 U/L 7-52 [facility] Albumin [Mass/volume] in Ser um or Plasma by Bromocresol green (BCG) dye binding methoOrdered By: Mark Gramajo on 12-04-2022 Albumin BCG dye [Mass/Vol] 3.9 g/dL 3.5-5.7 [facility] Alkaline phosphatase [Enzyma tic activity/volume] in Serum or PlasmaOrdered By: Mark Gramajo on 12-04-2022 ALP [Catalytic activity/Vol] 83 U/L 34-104 [facility] [id number] Phenotyp davis 12-04-2022 Alpha 1 Anti-Trypsin 137 mg/dL Normal 101-187 [facility] Comment on above: Order Comment: Reaso n for Exam Right upper quadrant abdominal pain Performed By: #### H EPATIC, CBC, KEYLA, PT, LIPID, FE and TIBC, NATHALY, LIPASE #### [facility] [address] #### HBSAG, HCV RX PCR, CARSON CHOICE, SMAB, HBSAB, HBCAB, ALPHA PHEN, CERULOP #### [facility] , Phenotype (P1) MM Normal . [facility] Comment on above: Order [...] Ranges used to confirm phenotype. Performed at: [address] [id number] Unit Nurse: Iftikhar Romero PhD, Phone: [phone] Performed at: [facility] [address] [id number] Unit Nurse: Karli Lux MD, Phone: [phone] Performed By: #### H EPATIC, CBC, KEYLA, PT, LIPID, FE and TIBC, NATHALY, LIPASE #### [facility] [address] [place] [address] [place] #### HBSAG, HCV RX PCR, CARSON CHOICE, SMAB, HBSAB, HBCAB, ALPHA PHEN, CERULOP #### [facility] , Amylaseon 12-04-2022 Amylase [Catalytic activity/Vol] 33 U/L Normal 29-103 [facility] Comment on above: Order Comment: Reaso n for Exam Right upper quadrant abdominal pain Performed By: #### H EPATIC, CBC, KEYLA, PT, LIPID, FE and TIBC, NATHALY, LIPASE #### [facility] [address] [place] [address] [place] #### HBSAG, HCV RX PCR, CARSON CHOICE, SMAB, HBSAB, HBCAB, ALPHA PHEN, CERULOP #### [facility] , Amylase [Enzymatic activity/ volume] in Serum or PlasmaOrdered By: Mark Gramajo on 12-04-2022 Amylase [Catalytic activity/Vol] 33 U/L 29-103 [facility] Aspartate aminotransferase [ Enzymatic activity/volume] in Serum or PlasmaOrdered By: Mark Gramajo on 12-04-2022 AST [Catalytic activity/Vol] 10 U/L 13-39 [facility] Basophils Auto (Bld) [#/Vol] Ordered By: Mark Gramajo on 12-04-2022 Basophils (Bld) [#/Vol] 0.1 10*3/uL 0.0-0.2 [facility] Basophils/100 WBC Auto (Bld) Ordered By: Mark Gramajo on 12-04-2022 Basophils/100 WBC (Bld) 0.7 % . [facility] Bilirubin.direct [Mass/volum e] in Serum or PlasmaOrdered By: Mark Gramajo on 12-04-2022 Bilirubin.direct [Mass/Vol] 0.10 mg/dL 0.03-0.18 [facility] Bilirubin.total [Mass/volume ] in Serum or PlasmaOrdered By: Mark Gramajo on 12-04-2022 Bilirubin [Mass/Vol] 0.4 mg/dL 0.3-1.0 [facility] Ceruloplasminon 12-04-2022 Ceruloplasmin 33.7 mg/dL Normal 19.0-39.0 [facility] Comment on above: Order Comment: Reaso n for Exam Right upper quadrant abdominal pain Result Comment: Perf ormed at: CB - [facility] [address] [id number] Unit Nurse: Iftikhar Romero PhD, Phone: [phone] PERFORMED BY: [place] [address] PATHOLOGIST OPTICAL ENGINEERING MANAGER HILARIA REES M.D. Performed By: #### H EPATIC, CBC, KEYLA, PT, LIPID, FE and TIBC, NATHALY, LIPASE #### [address] #### HBSAG, HCV RX PCR, CARSON CHOICE, SMAB, HBSAB, HBCAB, ALPHA PHEN, CERULOP #### [facility] , Cholesterol [Mass/volume] in Serum or PlasmaOrdered By: Mark Gramajo on 12-04-2022 Cholesterol [Mass/Vol] 219 mg/dL 140-200 [facility] Comment on above: Chol less than 200 m g/dl low riskChol 201-239 mg/dl borderline riskChol 240 mg/dl and greater high risk Cholesterol in LDL Calc [Mas s/Vol]Ordered By: Mark Gramajo on 12-04-2022 Cholesterol in LDL [Mass/Vol] 131 mg/dL 0-100 [facility] Comment on above: LDL ATP III CLASSIFI CATIONLDL less than 100 mg/dL OptimalLDL 100-129 mg/dL Near or above optimalLDL 130-159 mg/dL Borderline highLDL 160-189 mg/dL HighLDL greater than 189 mg/dL Very high Cholesterol in VLDL Calc [Ma ss/Vol]Ordered By: Mark Gramajo on 12-04-2022 Cholesterol in VLDL [Mass/Vol] 37 mg/dL [facility] Complete Blood Count Auto Di ffon 12-04-2022 Basophils (Bld) [#/Vol] 0.1 10*3/uL Normal 0.0-0.2 [facility] Comment on above: Order Comment: Reaso n for Exam Right upper quadrant abdominal pain Result Comment: PERF ORMED BY: [place] [address] PATHOLOGIST OPTICAL ENGINEERING MANAGER HILARIA REES M.D. Performed By: #### H EPATIC, CBC, KEYLA, PT, LIPID, FE and TIBC, NATHALY, LIPASE #### [place] [address] [place] #### HBSAG, HCV RX PCR, CARSON CHOICE, SMAB, HBSAB, HBCAB, ALPHA PHEN, CERULOP #### [facility] , Basophils/100 WBC (Bld) 0.7 % Normal . [facility] Comment on above: Order Comment: Reaso n for Exam Right upper quadrant abdominal pain Performed By: #### H EPATIC, CBC, KEYLA, PT, LIPID, FE and TIBC, NATHALY, LIPASE #### [address] #### HBSAG, HCV RX PCR, CARSON CHOICE, SMAB, HBSAB, HBCAB, ALPHA PHEN, CERULOP #### [facility] , Eosinophils (Bld) [#/Vol] 0.3 10*3/uL Normal 0.0-0.45 [facility] Comment on above: Order Comment: Reaso n for Exam Right upper quadrant abdominal pain Performed By: #### H EPATIC, CBC, KEYLA, PT, LIPID, FE and TIBC, NATHALY, LIPASE #### [address] #### HBSAG, HCV RX PCR, CARSON CHOICE, SMAB, HBSAB, HBCAB, ALPHA PHEN, CERULOP #### [facility] , Eosinophils/100 WBC (Bld) 2.2 % Normal . [facility] Comment on above: Order Comment: Reaso n for Exam Right upper quadrant abdominal pain Performed By: #### H EPATIC, CBC, KEYLA, PT, LIPID, FE and TIBC, NATHALY, LIPASE #### [place] [address] [place] #### HBSAG, HCV RX PCR, CARSON CHOICE, SMAB, HBSAB, HBCAB, ALPHA PHEN, CERULOP #### [facility] , Erythrocyte distribution width (RBC) [Ratio] 13.7 % Normal 11.9-15.3 [facility] Comment on above: Order Comment: Reaso n for Exam Right upper quadrant abdominal pain Performed By: #### H EPATIC, CBC, KEYLA, PT, LIPID, FE and TIBC, NATHALY, LIPASE #### [place] [address] [place] #### HBSAG, HCV RX PCR, CARSON CHOICE, SMAB, HBSAB, HBCAB, ALPHA PHEN, CERULOP #### [facility] , Hematocrit (Bld) [Volume fraction] 41.4 % Normal 34.0-46.4 [facility] Comment on above: Order Comment: Reaso n for Exam Right upper quadrant abdominal pain Performed By: #### H EPATIC, CBC, KEYLA, PT, LIPID, FE and TIBC, NATHALY, LIPASE #### [address] #### HBSAG, HCV RX PCR, CARSON CHOICE, SMAB, HBSAB, HBCAB, ALPHA PHEN, CERULOP #### [facility] , Hemoglobin (Bld) [Mass/Vol] 13.7 g/dL Normal 11.8-15.4 [facility] Comment on above: Order Comment: Reaso n for Exam Right upper quadrant abdominal pain Performed By: #### H EPATIC, CBC, KEYLA, PT, LIPID, FE and TIBC, NATHALY, LIPASE #### [address] #### HBSAG, HCV RX PCR, CARSON CHOICE, SMAB, HBSAB, HBCAB, ALPHA PHEN, CERULOP #### [facility] , Lymphocytes (Bld) [#/Vol] 2.8 10*3/uL Normal 1.00-4.8 [facility] Comment on above: Order Comment: Reaso n for Exam Right upper quadrant abdominal pain Performed By: #### H EPATIC, CBC, KEYLA, PT, LIPID, FE and TIBC, NATHALY, LIPASE #### [address] #### HBSAG, HCV RX PCR, CARSON CHOICE, SMAB, HBSAB, HBCAB, ALPHA PHEN, CERULOP #### [facility] , Lymphocytes/100 WBC (Bld) 22.5 % Normal . [facility] Comment on above: Order Comment: Reaso n for Exam Right upper quadrant abdominal pain Performed By: #### H EPATIC, CBC, KEYLA, PT, LIPID, FE and TIBC, NATHALY, LIPASE #### [address] #### HBSAG, HCV RX PCR, CARSON CHOICE, SMAB, HBSAB, HBCAB, ALPHA PHEN, CERULOP #### [facility] , MCH (RBC) [Entitic mass] 28.7 pg Normal 24.7-34.3 [facility] Comment on above: Order Comment: Reaso n for Exam Right upper quadrant abdominal pain Performed By: #### H EPATIC, CBC, KEYLA, PT, LIPID, FE and TIBC, NATHALY, LIPASE #### [address] #### HBSAG, HCV RX PCR, CARSON CHOICE, SMAB, HBSAB, HBCAB, ALPHA PHEN, CERULOP #### [facility] , MCV (RBC) [Entitic vol] 86.4 fL Normal 80-100 [facility] Comment on above: Order Comment: Reaso n for Exam Right upper quadrant abdominal pain Performed By: #### H EPATIC, CBC, KEYLA, PT, LIPID, FE and TIBC, NATHALY, LIPASE #### [address] #### HBSAG, HCV RX PCR, CARSON CHOICE, SMAB, HBSAB, HBCAB, ALPHA PHEN, CERULOP #### [facility] , Mean Corpuscular HGB Conc 33.2 g/dL Normal 32.0-35.0 [facility] Comment on above: Order Comment: Reaso n for Exam Right upper quadrant abdominal pain Performed By: #### H EPATIC, CBC, KEYLA, PT, LIPID, FE and TIBC, NATHALY, LIPASE #### [address] #### HBSAG, HCV RX PCR, CARSON CHOICE, SMAB, HBSAB, HBCAB, ALPHA PHEN, CERULOP #### [facility] , Monocytes (Bld) [#/Vol] 0.8 10*3/uL Normal 0.0-0.8 [facility] Comment on above: Order Comment: Reaso n for Exam Right upper quadrant abdominal pain Performed By: #### H EPATIC, CBC, KEYLA, PT, LIPID, FE and TIBC, NATHALY, LIPASE #### [address] #### HBSAG, HCV RX PCR, CARSON CHOICE, SMAB, HBSAB, HBCAB, ALPHA PHEN, CERULOP #### [facility] , Monocytes/100 WBC (Bld) 6.7 % Normal . [facility] Comment on above: Order Comment: Reaso n for Exam Right upper quadrant abdominal pain Performed By: #### H EPATIC, CBC, KEYLA, PT, LIPID, FE and TIBC, NATHALY, LIPASE #### [address] #### HBSAG, HCV RX PCR, CARSON CHOICE, SMAB, HBSAB, HBCAB, ALPHA PHEN, CERULOP #### [facility] , Neutrophils (Bld) [#/Vol] 8.4 10*3/uL High 1.8-7.7 [facility] Comment on above: Order Comment: Reaso n for Exam Right upper quadrant abdominal pain Performed By: #### H EPATIC, CBC, KEYLA, PT, LIPID, FE and TIBC, NATHALY, LIPASE #### [address] #### HBSAG, HCV RX PCR, CARSON CHOICE, SMAB, HBSAB, HBCAB, ALPHA PHEN, CERULOP #### [facility] , Neutrophils/100 WBC (Bld) 67.9 % Normal . [facility] Comment on above: Order Comment: Reaso n for Exam Right upper quadrant abdominal pain Performed By: #### H EPATIC, CBC, KEYLA, PT, LIPID, FE and TIBC, NATHALY, LIPASE #### [place] [address] [place] #### HBSAG, HCV RX PCR, CARSON CHOICE, SMAB, HBSAB, HBCAB, ALPHA PHEN, CERULOP #### [facility] , NRBC% 0.0 /100{WBC} Normal 0-0.5 [facility] Comment on above: Order Comment: Reaso n for Exam Right upper quadrant abdominal pain Performed By: #### H EPATIC, CBC, KEYLA, PT, LIPID, FE and TIBC, NATHALY, LIPASE #### [address] #### HBSAG, HCV RX PCR, CARSON CHOICE, SMAB, HBSAB, HBCAB, ALPHA PHEN, CERULOP #### [facility] , Platelet mean volume (Bld) [Entitic vol] 7.7 fL Normal 6.3-10.7 The [facility] Comment on above: Order Comment: Reaso n for Exam Right upper quadrant abdominal pain Performed By: #### H EPATIC, CBC, KEYLA, PT, LIPID, FE and TIBC, NATHALY, LIPASE #### [address] #### HBSAG, HCV RX PCR, CARSON CHOICE, SMAB, HBSAB, HBCAB, ALPHA PHEN, CERULOP #### [facility] , Platelets (Bld) [#/Vol] 303 10*3/uL Normal 150-450 The [facility] Comment on above: Order Comment: Reaso n for Exam Right upper quadrant abdominal pain Performed By: #### H EPATIC, CBC, KEYLA, PT, LIPID, FE and TIBC, NATHALY, LIPASE #### [place] [address] [place] #### HBSAG, HCV RX PCR, CARSON CHOICE, SMAB, HBSAB, HBCAB, ALPHA PHEN, CERULOP #### [facility] , RBC (Bld) [#/Vol] 4.79 10*6/uL Normal 3.60-5.00 The [facility] Comment on above: Order Comment: Reaso n for Exam Right upper quadrant abdominal pain Performed By: #### H EPATIC, CBC, KEYLA, PT, LIPID, FE and TIBC, NATHAYL, LIPASE #### [place] [address] [place] #### HBSAG, HCV RX PCR, CARSON CHOICE, SMAB, HBSAB, HBCAB, ALPHA PHEN, CERULOP #### [facility] , WBC (Bld) [#/Vol] 12.3 10*3/uL High 3.8-11.6 The [facility] Comment on above: Order Comment: Reaso n for Exam Right upper quadrant abdominal pain Performed By: #### H EPATIC, CBC, KEYLA, PT, LIPID, FE and TIBC, NATHALY, LIPASE #### [facility] [address] [place] [address] [place] #### HBSAG, HCV RX PCR, CARSON CHOICE, SMAB, HBSAB, HBCAB, ALPHA PHEN, CERULOP #### [facility] , Eosinophils Auto (Bld) [#/Vo l]Ordered By: Mark Gramajo on 12-04-2022 Eosinophils (Bld) [#/Vol] 0.3 10*3/uL 0.0-0.45 [facility] Eosinophils/100 WBC Auto (Bl d)Ordered By: Mark Gramajo on 12-04-2022 Eosinophils/100 WBC (Bld) 2.2 % . [facility] Erythrocyte distribution wid th Auto (RBC) [Ratio]Ordered By: Mark Gramajo on 12-04-2022 Erythrocyte distribution width (RBC) [Ratio] 13.7 % 11.9-15.3 [facility] Ferritinon 12-04-2022 Ferritin [Mass/Vol] 56.2 ng/mL Normal 11.0-306.8 The [facility] Comment on above: Order Comment: Reaso n for Exam Right upper quadrant abdominal pain Performed By: #### H EPATIC, CBC, KEYLA, PT, LIPID, FE and TIBC, NATHALY, LIPASE #### [facility] [address] [place] [address] [place] #### HBSAG, HCV RX PCR, CARSON CHOICE, SMAB, HBSAB, HBCAB, ALPHA PHEN, CERULOP #### [facility] , Ferritin [Mass/volume] in Se rum or PlasmaOrdered By: Mark Gramajo on 12-04-2022 Ferritin [Mass/Vol] 56.2 ng/mL 11.0-306.8 [facility] Globulin Calc (S) [Mass/Vol] Ordered By: Mark Gramajo on 12-04-2022 Globulin (S) [Mass/Vol] 3.1 g/dL [facility] Hematocrit Auto (Bld) [Volum e fraction]Ordered By: Mark Gramajo on 12-04-2022 Hematocrit (Bld) [Volume fraction] 41.4 % 34.0-46.4 [facility] Hemoglobin [Mass/volume] in BloodOrdered By: Mark Gramajo on 12-04-2022 Hemoglobin (Bld) [Mass/Vol] 13.7 g/dL 11.8-15.4 [facility] Hep C Ab wRfx to Qnt PCRon 0 12-04-2022 Hepatitis C Quantitation Normal [facility] Comment on above: Order Comment: Reaso n for Exam Right upper quadrant abdominal pain Result Comment: HCV Not Detected Performed By: #### H EPATIC, CBC, KEYLA, PT, LIPID, FE and TIBC, NATHALY, LIPASE #### [facility] [address] [place] [address] #### HBSAG, HCV RX PCR, CARSON CHOICE, SMAB, HBSAB, HBCAB, ALPHA PHEN, CERULOP #### [facility] , Hepatitis C Virus Antibody Reactive Critically abnormal Non Reactive [facility] Comment on above: Order Comment: Reaso n for Exam Right upper quadrant abdominal pain Performed By: #### H EPATIC, CBC, KEYLA, PT, LIPID, FE and TIBC, NATHALY, LIPASE #### [facility] [address] [place] [address] [place] #### HBSAG, HCV RX PCR, CARSON CHOICE, SMAB, HBSAB, HBCAB, ALPHA PHEN, CERULOP #### [facility] , Interpretation Normal . The [facility] Comment on above: Order Comment: Reaso n for Exam Right upper quadrant abdominal pain Result Comment: Posi tive HCV antibody screen without the presence of HCV RNA is consistent with a resolved past infection or a false positive HCV antibody. Consider repeat testing after one month. Performed at: [address] [id number] Unit Nurse: Iftikhar Romero PhD, Phone: [phone] Performed at: [address] [id number] Unit Nurse: Karli Lux MD, Phone: [phone] Performed By: #### H EPATIC, CBC, KEYLA, PT, LIPID, FE and TIBC, NATHALY, LIPASE #### [address] #### HBSAG, HCV RX PCR, CARSON CHOICE, SMAB, HBSAB, HBCAB, ALPHA PHEN, CERULOP #### [facility] , Test Information: Normal . [facility] Comment on above: Order Comment: Reaso n for Exam Right upper quadrant abdominal pain Result Comment: The quantitative range of this assay is 15 IU/mL to 100 million IU/mL. Performed By: #### H EPATIC, CBC, KEYLA, PT, LIPID, FE and TIBC, NATHALY, LIPASE #### [place] [address] [place] #### HBSAG, HCV RX PCR, CARSON CHOICE, SMAB, HBSAB, HBCAB, ALPHA PHEN, CERULOP #### [facility] , Hepatic Panelon 12-04-2022 Albumin [Mass/Vol] 3.9 g/dL Normal 3.5-5.7 The [facility] Comment on above: Order Comment: Reaso n for Exam Right upper quadrant abdominal pain Performed By: #### H EPATIC, CBC, KEYLA, PT, LIPID, FE and TIBC, NATHALY, LIPASE #### [address] #### HBSAG, HCV RX PCR, CARSON CHOICE, SMAB, HBSAB, HBCAB, ALPHA PHEN, CERULOP #### [facility] , Albumin/Globulin [Mass ratio] 1.3 {ratio} Normal [facility] Comment on above: Order Comment: Reaso n for Exam Right upper quadrant abdominal pain Performed By: #### H EPATIC, CBC, KEYLA, PT, LIPID, FE and TIBC, NATHALY, LIPASE #### [address] #### HBSAG, HCV RX PCR, CARSON CHOICE, SMAB, HBSAB, HBCAB, ALPHA PHEN, CERULOP #### [facility] , ALP [Catalytic activity/Vol] 83 U/L Normal 34-104 [facility] Comment on above: Order Comment: Reaso n for Exam Right upper quadrant abdominal pain Performed By: #### H EPATIC, CBC, KEYLA, PT, LIPID, FE and TIBC, NATHALY, LIPASE #### [address] #### HBSAG, HCV RX PCR, CARSON CHOICE, SMAB, HBSAB, HBCAB, ALPHA PHEN, CERULOP #### [facility] , ALT [Catalytic activity/Vol] 15 U/L Normal 7-52 [facility] Comment on above: Order Comment: Reaso n for Exam Right upper quadrant abdominal pain Performed By: #### H EPATIC, CBC, KEYLA, PT, LIPID, FE and TIBC, NATHALY, LIPASE #### [address] #### HBSAG, HCV RX PCR, CARSON CHOICE, SMAB, HBSAB, HBCAB, ALPHA PHEN, CERULOP #### [facility] , AST [Catalytic activity/Vol] 10 U/L Low 13-39 [facility] Comment on above: Order Comment: Reaso n for Exam Right upper quadrant abdominal pain Performed By: #### H EPATIC, CBC, KEYLA, PT, LIPID, FE and TIBC, NATHALY, LIPASE #### [place] [address] [place] #### HBSAG, HCV RX PCR, CARSON CHOICE, SMAB, HBSAB, HBCAB, ALPHA PHEN, CERULOP #### [facility] , Bilirubin [Mass/Vol] 0.4 mg/dL Normal 0.3-1.0 [facility] Comment on above: Order Comment: Reaso n for Exam Right upper quadrant abdominal pain Performed By: #### H EPATIC, CBC, KEYLA, PT, LIPID, FE and TIBC, NATHALY, LIPASE #### [address] #### HBSAG, HCV RX PCR, CARSON CHOICE, SMAB, HBSAB, HBCAB, ALPHA PHEN, CERULOP #### [facility] , Bilirubin,Indirect 0.3 mg/dL Normal The [facility] Comment on above: Order Comment: Reaso n for Exam Right upper quadrant abdominal pain Performed By: #### H EPATIC, CBC, KEYLA, PT, LIPID, FE and TIBC, NATHALY, LIPASE #### [address] #### HBSAG, HCV RX PCR, CARSON CHOICE, SMAB, HBSAB, HBCAB, ALPHA PHEN, CERULOP #### [facility] , Bilirubin.indirect [Mass/Vol] 0.10 mg/dL Normal 0.03-0.18 [facility] Comment on above: Order Comment: Reaso n for Exam Right upper quadrant abdominal pain Performed By: #### H EPATIC, CBC, KEYLA, PT, LIPID, FE and TIBC, NATHALY, LIPASE #### [address] #### HBSAG, HCV RX PCR, CARSON CHOICE, SMAB, HBSAB, HBCAB, ALPHA PHEN, CERULOP #### [facility] , Globulin (S) [Mass/Vol] 3.1 g/dL Normal [facility] Comment on above: Order Comment: Reaso n for Exam Right upper quadrant abdominal pain Performed By: #### H EPATIC, CBC, KEYLA, PT, LIPID, FE and TIBC, NATHALY, LIPASE #### [place] [address] [place] #### HBSAG, HCV RX PCR, CARSON CHOICE, SMAB, HBSAB, HBCAB, ALPHA PHEN, CERULOP #### [facility] , Protein [Mass/Vol] 7.0 g/dL Normal 6.4-8.9 [facility] Comment on above: Order Comment: Reaso n for Exam Right upper quadrant abdominal pain Performed By: #### H EPATIC, CBC, KEYLA, PT, LIPID, FE and TIBC, NATHALY, LIPASE #### [address] #### HBSAG, HCV RX PCR, CARSON CHOICE, SMAB, HBSAB, HBCAB, ALPHA PHEN, CERULOP #### [facility] , Hepatitis B Core Antibodyon 12-04-2022 Hepatitis B Core Antibody Negative Normal Negative [facility] Comment on above: Order Comment: Reaso n for Exam Right upper quadrant abdominal pain Result Comment: Perf ormed at: - [facility] [address] [id number] Unit Nurse: Iftikhar Romero PhD, Phone: [phone] Performed By: #### H EPATIC, CBC, KEYLA, PT, LIPID, FE and TIBC, NATHALY, LIPASE #### [address] #### HBSAG, HCV RX PCR, CARSON CHOICE, SMAB, HBSAB, HBCAB, ALPHA PHEN, CERULOP #### [facility] , Hepatitis B Surface Antibody on 12-04-2022 Hepatitis B Surface Antibody Non-Reactive Normal . [facility] Comment on above: Order Comment: Reaso n for Exam Right upper quadrant abdominal pain Result Comment: Non Reactive: Inconsistent with immunity, less than 10 mIU/mL Reactive: Consistent with immunity, greater than 9.9 mIU/mL Performed By: #### H EPATIC, CBC, KEYLA, PT, LIPID, FE and TIBC, NATHALY, LIPASE #### [address] #### HBSAG, HCV RX PCR, CARSON CHOICE, SMAB, HBSAB, HBCAB, ALPHA PHEN, CERULOP #### [facility] , Hepatitis B Surface Antigeno n 12-04-2022 HBsAg Screen Negative Normal Negative The [facility] Comment on above: Order Comment: Reaso n for Exam Right upper quadrant abdominal pain Result Comment: PERF ORMED BY: [place] [address] PATHOLOGIST OPTICAL ENGINEERING MANAGER HILARIA REES M.D. Performed By: #### H EPATIC, CBC, KEYLA, PT, LIPID, FE and TIBC, NATHALY, LIPASE #### [facility] [address] [place] [address] [place] #### HBSAG, HCV RX PCR, CARSON CHOICE, SMAB, HBSAB, HBCAB, ALPHA PHEN, CERULOP #### [facility] , Hepatitis B virus surface Ag [Presence] in Serum or Plasma by ImmunoassayOrdered By: Mark Gramajo on 12-04-2022 HBV surface Ag IA Ql Negative Negative [facility] INR in Platelet poor plasma by Coagulation assayOrdered By: Mark Gramajo on 12-04-2022 INR Coag (PPP) [Relative time] 1.0 {INR} [facility] Comment on above: INR Therapeutic [...] on 12-04-2022 Iron [Mass/Vol] 51 ug/dL 50-212 [facility] Iron and TIBC Profileon 11-21 % Iron Saturation 14.0 % Low 20-50 [facility] Comment on above: Order Comment: Reaso n for Exam Right upper quadrant abdominal pain Performed By: #### H EPATIC, CBC, KEYLA, PT, LIPID, FE and TIBC, NATHALY, LIPASE #### [facility] [address] [place] [address] [place] #### HBSAG, HCV RX PCR, CARSON CHOICE, SMAB, HBSAB, HBCAB, ALPHA PHEN, CERULOP #### [facility] , Iron [Mass/Vol] 51 ug/dL Normal 50-212 [facility] Comment on above: Order Comment: Reaso n for Exam Right upper quadrant abdominal pain Performed By: #### H EPATIC, CBC, KEYLA, PT, LIPID, FE and TIBC, NATHALY, LIPASE #### [facility] [address] [place] [address] [place] #### HBSAG, HCV RX PCR, CARSON CHOICE, SMAB, HBSAB, HBCAB, ALPHA PHEN, CERULOP #### [facility] , Total Iron Binding Capacity 364 ug/dL Normal 255-450 [facility] Comment on above: Order Comment: Reaso n for Exam Right upper quadrant abdominal pain Performed By: #### H EPATIC, CBC, KEYLA, PT, LIPID, FE and TIBC, NATHALY, LIPASE #### [facility] [address] [place] [address] [place] #### HBSAG, HCV RX PCR, CARSON CHOICE, SMAB, HBSAB, HBCAB, ALPHA PHEN, CERULOP #### [facility] , Transferrin [Mass/Vol] 260 mg/dL Normal 203-362 [facility] Comment on above: Order Comment: Reaso n for Exam Right upper quadrant abdominal pain Performed By: #### H EPATIC, CBC, KEYLA, PT, LIPID, FE and TIBC, NATHALY, LIPASE #### [facility] [address] [place] [address] [place] #### HBSAG, HCV RX PCR, CARSON CHOICE, SMAB, HBSAB, HBCAB, ALPHA PHEN, CERULOP #### [facility] , Iron binding capacity [Mass/ volume] in Serum or PlasmaOrdered By: Mark Gramajo on 12-04-2022 Iron binding capacity [Mass/Vol] 364 ug/dL 255-450 [facility] Iron saturation [Mass Fracti on] in Serum or PlasmaOrdered By: Mark Gramajo on 12-04-2022 Iron saturation [Mass fraction] 14.0 % 20-50 [facility] Laboratory - CoagulationOrde red By: Mark Gramajo on 12-04-2022 PT Coag (PPP) [Time] 11.3 s 9.0-12.9 [facility] Leukocytes [#/volume] correc tu for nucleated erythrocytes in Blood by Automated counOrdered By: Mark Gramjao on 12-04-2022 WBC corrected for nucl RBC Auto (Bld) [#/Vol] 12.3 10*3/uL 3.8-11.6 [facility] Lipaseon 12-04-2022 Lipase [Catalytic activity/Vol] 18.0 U/L Normal 11.0-82.0 [facility] Comment on above: Order Comment: Reaso n for Exam Right upper quadrant abdominal pain Performed By: #### H EPATIC, CBC, KEYLA, PT, LIPID, FE and TIBC, NATHALY, LIPASE #### [facility] [address] #### HBSAG, HCV RX PCR, CARSON CHOICE, SMAB, HBSAB, HBCAB, ALPHA PHEN, CERULOP #### [facility] , Lipase [Enzymatic activity/v olume] in Serum or PlasmaOrdered By: Mark Gramajo on 12-04-2022 Lipase [Catalytic activity/Vol] 18.0 U/L 11.0-82.0 [facility] Lipid Panelon 12-04-2022 Cholesterol [Mass/Vol] 219 mg/dL High 140-200 Th e [facility] Comment on above: Order Comment: Reaso n for Exam Right upper quadrant abdominal pain Result Comment: Chol less than 200 mg/dl low risk Chol 201-239 mg/dl borderline risk Chol 240 mg/dl and greater high risk Performed By: #### H EPATIC, CBC, KEYLA, PT, LIPID, FE and TIBC, NATHALY, LIPASE #### [facility] [address] [place] [address] [place] #### HBSAG, HCV RX PCR, CARSON CHOICE, SMAB, HBSAB, HBCAB, ALPHA PHEN, CERULOP #### [facility] , Cholesterol in HDL [Mass/Vol] 50 mg/dL Normal 23-92 [facility] Comment on above: Order Comment: Reaso n for Exam Right upper quadrant abdominal pain Result Comment: HDL CHOL ATP-III CLASSIFICATION Cardiovascular Risk HDL > or equal to 60 mg/dL LOW HDL < 40 mg/dL HIGH Performed By: #### H EPATIC, CBC, KEYLA, PT, LIPID, FE and TIBC, NATHALY, LIPASE #### [address] #### HBSAG, HCV RX PCR, CARSON CHOICE, SMAB, HBSAB, HBCAB, ALPHA PHEN, CERULOP #### [facility] , Cholesterol.total/Chol esterol in HDL [Mass ratio] 4.4 {ratio} Normal <5.0 [facility] Comment on above: Order Comment: Reaso n for Exam Right upper quadrant abdominal pain Result Comment: PERF ORMED BY: [place] [address] PATHOLOGIST OPTICAL ENGINEERING MANAGER HILARIA REES M.D. Performed By: #### H EPATIC, CBC, KEYLA, PT, LIPID, FE and TIBC, NATHALY, LIPASE #### [address] #### HBSAG, HCV RX PCR, CARSON CHOICE, SMAB, HBSAB, HBCAB, ALPHA PHEN, CERULOP #### [facility] , LDL Cholesterol,Calculated 131 mg/dL High 0-100 [facility] Comment on above: [...] LIPID, FE and TIBC, NATHALY, LIPASE #### [place] [address] [place] #### HBSAG, HCV RX PCR, CARSON CHOICE, SMAB, HBSAB, HBCAB, ALPHA PHEN, CERULOP #### [facility] , Triglyceride w/Reflex 189 mg/dL High 0-149 [facility] Comment on above: Order [...] LIPID, FE and TIBC, NATHALY, LIPASE #### [facility] [address] [place] [address] [place] #### HBSAG, HCV RX PCR, CARSON CHOICE, SMAB, HBSAB, HBCAB, ALPHA PHEN, CERULOP #### [facility] , VLDL CHOLESTEROL 37 mg/dL Normal [facility] Comment on above: Order Comment: Reaso n for Exam Right upper quadrant abdominal pain Performed By: #### H EPATIC, CBC, KEYLA, PT, LIPID, FE and TIBC, NATHALY, LIPASE #### [facility] [address] [place] [address] [place] #### HBSAG, HCV RX PCR, CARSON CHOICE, SMAB, HBSAB, HBCAB, ALPHA PHEN, CERULOP #### [facility] , Lymphocytes Auto (Bld) [#/Vo l]Ordered By: Mark Gramajo on 12-04-2022 Lymphocytes (Bld) [#/Vol] 2.8 10*3/uL 1.00-4.8 [facility] Lymphocytes/100 WBC Auto (Bl d)Ordered By: Mrak Gramajo on 12-04-2022 Lymphocytes/100 WBC (Bld) 22.5 % . [facility] MCH Auto (RBC) [Entitic mass ]Ordered By: Mark Gramajo on 12-04-2022 MCH (RBC) [Entitic mass] 28.7 pg 24.7-34.3 [facility] MCHC Auto (RBC) [Mass/Vol]Or dered By: Mark Gramajo on 12-04-2022 MCHC (RBC) [Mass/Vol] 33.2 g/dL 32.0-35.0 [facility] MCV Auto (RBC) [Entitic vol] Ordered By: Mark Gramajo on 12-04-2022 MCV (RBC) [Entitic vol] 86.4 fL 80-100 [facility] Monocytes Auto (Bld) [#/Vol] Ordered By: Mark Gramajo on 12-04-2022 Monocytes (Bld) [#/Vol] 0.8 10*3/uL 0.0-0.8 [facility] Monocytes/100 WBC Auto (Bld) Ordered By: Mark Gramajo on 12-04-2022 Monocytes/100 WBC (Bld) 6.7 % . [facility] Neutrophils Auto (Bld) [#/Vo l]Ordered By: Mark Gramajo on 12-04-2022 Neutrophils (Bld) [#/Vol] 8.4 10*3/uL 1.8-7.7 [facility] Neutrophils/100 WBC Auto (Bl d)Ordered By: Mark Gramajo on 12-04-2022 Neutrophils/100 WBC (Bld) 67.9 % . [facility] No Panel InformationOrdered By: Mrak Gramajo on 12-04-2022 Hepatitis B Core Total Antibody Negative Negative [facility] Comment on above: Performed at: [place] [id number] Director: Iftikhar Romero PhD, Phone: [phone] Hepatitis C RNA Quantitative N/A [facility] Nucleated erythrocytes [Pres ence] in Blood by Automated countOrdered By: Mark Gramajo on 12-04-2022 Nucleated RBC Auto Ql (Bld) 0.0 /100{WBC} 0-0.5 [facility] Platelet mean volume Auto (B ld) [Entitic vol]Ordered By: Mark Gramajo on 12-04-2022 Platelet mean volume (Bld) [Entitic vol] 7.7 fL 6.3-10.7 [facility] Platelets Auto (Bld) [#/Vol] Ordered By: Mark Gramajo on 12-04-2022 Platelets (Bld) [#/Vol] 303 10*3/uL 150-450 [facility] Protein [Mass/volume] in Ser um or PlasmaOrdered By: Mark Gramajo on 12-04-2022 Protein [Mass/Vol] 7.0 g/dL 6.4-8.9 [facility] Prothrombin Time INRon 12-04 INR Coag (PPP) [Relative time] 1.0 {INR} Normal [facility] Comment on above: Order [...] heart valves: 3 - 4.5 PERFORMED BY: [place] [address] PATHOLOGIST OPTICAL ENGINEERING MANAGER HILARIA REES M.D. Performed By: #### H EPATIC, CBC, KEYLA, PT, LIPID, FE and TIBC, NATHALY, LIPASE #### [address] #### HBSAG, HCV RX PCR, CARSON CHOICE, SMAB, HBSAB, HBCAB, ALPHA PHEN, CERULOP #### [facility] , PT Coag (PPP) [Time] 11.3 s Normal 9.0-12.9 [facility] Comment on above: Order Comment: Reaso n for Exam Right upper quadrant abdominal pain Performed By: #### H EPATIC, CBC, KEYLA, PT, LIPID, FE and TIBC, NATHALY, LIPASE #### [address] #### HBSAG, HCV RX PCR, CARSON CHOICE, SMAB, HBSAB, HBCAB, ALPHA PHEN, CERULOP #### [facility] , RBC Auto (Bld) [#/Vol]Ordere d By: Mark Gramajo on 12-04-2022 RBC (Bld) [#/Vol] 4.79 10*6/uL 3.60-5.00 [facility] Serum hepatitis B virus surf yessy antibody detectionOrdered By: Mark Gramajo on 12-04-2022 HBV surface Ab Ql (S) Non-Reactive . [facility] Comment on above: Non Reactive: Incons istent with immunity, less than 10 mIU/mL Reactive: Consistent with immunity, greater than 9.9 mIU/mL Serum or plasma albumin/glob ulin mass ratioOrdered By: Mark Gramajo on 12-04-2022 Albumin/Globulin [Mass ratio] 1.3 {ratio} [facility] Serum or plasma ceruloplasmi n measurement (mass/volume)Ordered By: Mark Gramajo on 12-04-2022 Ceruloplasmin [Mass/Vol] 33.7 mg/dL 19.0-39.0 [facility] Comment on above: Performed at: [facility] [id number] Director: Iftikhar Romero PhD, Phone: [phone] Serum or plasma free cefurox jocy measurement (mass/volume)Ordered By: Mark Gramajo on 12-04-2022 Cefuroxime free [Mass/Vol] Negative Negative [facility] Comment on above: Performed at: [facility] [place] [id number] Director: Iftikhar Romero PhD, Phone: [phone] Serum or plasma high density lipoprotein (HDL) cholesterol measurementOrdered By: Mark Gramajo on 12-04-2022 Cholesterol in HDL [Mass/Vol] 50 mg/dL 23- [facility] Comment on above: HDL CHOL ATP-III CLA SSIFICATION Cardiovascular RiskHDL > or equal to 60 mg/dL LOWHDL < 40 mg/dL HIGH Serum or plasma non-glucuron idated bilirubin measurement (mass/volume)Ordered By: Mark Gramajo on 12-04-2022 Bilirubin.indirect [Mass/Vol] 0.3 mg/dL [facility] Serum or plasma total choles terol/high density lipoprotein (HDL) cholesterol mass ratOrdered By: Mark Gramajo on 12-04-2022 Cholesterol.total/Chol esterol in HDL [Mass ratio] 4.4 {ratio} <5.0 [facility] Smooth Muscle Antibodyon Smooth Muscle Antibody 6 Normal 0-19 [facility] Comment on above: Order Comment: Reaso n for Exam Right upper quadrant abdominal pain Result Comment: Nega tive 0 - 19 Weak positive 20 - 30 Moderate to strong positive >30 Actin Antibodies are found in 52-85% of patients with autoimmune hepatitis or chronic active hepatitis and in 22% of patients with primary biliary cirrhosis. PERFORMED BY: [place] [address] PATHOLOGIST OPTICAL ENGINEERING MANAGER HILARIA REES M.D. Performed By: #### H EPATIC, CBC, KEYLA, PT, LIPID, FE and TIBC, NATHALY, LIPASE #### [place] [address] [place] #### HBSAG, HCV RX PCR, CARSON CHOICE, SMAB, HBSAB, HBCAB, ALPHA PHEN, CERULOP #### [facility] , Transferrin [Mass/volume] in Serum or PlasmaOrdered By: Mark Gramajo on 12-04-2022 Transferrin [Mass/Vol] 260 mg/dL 203-362 [facility] Triglyceride [Mass/volume] i n Serum or PlasmaOrdered By: Mark Gramajo on 12-04-2022 Triglyceride [Mass/Vol] 189 mg/dL 0-149 [facility] Comment on above: TRIG ATP III CLASSIF ICATIONTRIG less than 150 mg/dL NormalTRIG 150-199 mg/dL Borderline highTRIG 200-500 mg/dL High TRIG greater than 500 mg/dL Very highStandard traceable to the Center for Disease Conrtrol and Prevention (CDC) test method. US liveron 12-04-2022 liver [facility] [place] [address] [place] [address] Ultrasound Report Signed Patient: Tasha Palu MR#: [id number] : 1975 Acct:[id number] Age/Sex: 47 / F ADM Date: 12/04/22 Loc: Room: [facility] Attending Dr: Mark Gramajo APRN Ordering Provider: [...] Phu Jamil M.D.12/04/2022 2:47 PM Dictation Location: [place] [address] Tech: Bhargavi Torres Transcribed By: FLORENTINO 12/04/22 144 Dictated By: Phu Jamil DO 12/04/22 1446 Signed By: 12/04/22 144 Normal [facility] WBC Auto (Bld) [#/Vol]Ordere d By: Mark Gramajo on 12-04-2022 WBC (Bld) [#/Vol] 12.3 10*3/uL 3.8-11.6 [facility] Glucose - FINGER STICKon Glucose [Mass/Vol] 197 mg/dL [employer] Other A1C HEMOGLOBINon 08-30-2022 HbA1c (Bld) [Mass fraction] 7.4 % [employer] Other Glucose - FINGER STICKon Glucose [Mass/Vol] 144 mg/dL [employer] Other HbA1c (Bld) [Mass fraction]o n 08-30-2022 A1C HEMOGLOBIN [facility] [employer] Other US SINGLE QUAD RT UPPERon US [...] VALERIANO SINCLAIR Date: 2022-08-11 11:38 Normal [facility] ACETONE SERUMon 08-07-2022 ACETONE Negative Normal NEGATIVE [facility] Comment on above: Performed By: #### A CETON #### [facility] [address] [address] [address] Annabelle Kilgore CBC AUTO DIFFon 08-07-2022 BASO # 0.1 103/ul Normal 0.0-0.1 [facility] Comment on above: Performed By: #### C BC #### [facility] [address] [place] [address] Dr. Annabelle Kilgore Basophils/100 WBC (Bld) 0.7 % Normal 0.2-2.0 [facility] Comment on above: Performed By: #### C BC #### [facility] [address] [place] [address] Dr. Annabelle Kilgore EO # 0.1 103/ul Normal 0.0-0.7 [facility] Comment on above: Performed By: #### C BC #### [facility] [address] [address] [address] Annabelle Kilgore Eosinophils/100 WBC (Bld) 0.7 % Critically low 0.9-7.0 [facility] Comment on above: Performed By: #### C BC #### [facility] [address] [address] [address] Annabelle Kilgore Erythrocyte distribution width (RBC) [Ratio] 12.7 % Normal 11.0-15.0 [facility] Comment on above: Performed By: #### C BC #### [facility] [address] [place] [address] Dr. Annabelle Kilgore Hematocrit (Bld) [Volume fraction] 38.9 % Normal 36.0-48.0 [facility] Comment on above: Performed By: #### C BC #### [facility] [address] [place] [address] Dr. Annabelle Kilgore Hemoglobin (Bld) [Mass/Vol] 13.4 g/dL Normal 12.0-16.0 [facility] Comment on above: Performed By: #### C BC #### [facility] [address] [place] [address] Dr. Annabelle Kilgore IG # 0.05 10e3/ul Critically high 0.00-0.03 [facility] Comment on above: Performed By: #### C BC #### [facility] [address] [place] [address] Dr. Annabelle Kilgore IG % 0.4 % Normal 0.0-0.5 [facility] Comment on above: Performed By: #### C BC #### [facility] [address] [place] [address] Dr. Annabelle Kilgore LYMPH # 3.5 103/ul Normal 1.2-3.8 [facility] Comment on above: Performed By: #### C BC #### [facility] [address] [place] [address] Dr. Annabelle Kilgore Lymphocytes/100 WBC (Bld) 25.1 % Normal 20.5-60.0 [facility] Comment on above: Performed By: #### C BC #### [facility] [address] [place] [address] Dr. Annabelle Kilgore MANUAL DIFF REQ NO Normal [facility] Comment on above: Performed By: #### C BC #### [facility] [address] [place] [address] Dr. Annabelle Kilgore MCH (RBC) [Entitic mass] 29.5 pg Normal 26.7-34.0 [facility] Comment on above: Performed By: #### C BC #### [facility] [address] [place] [address] Dr. Annabelle Kilgore MCHC (RBC) [Mass/Vol] 34.4 g/dL Normal 29.9-35.2 [facility] Comment on above: Performed By: #### C BC #### [facility] [address] [place] [address] Dr. Annabelle Kilgore MCV (RBC) [Entitic vol] 85.7 fL Normal 81.0-99.0 [facility] Comment on above: Performed By: #### C BC #### [facility] [address] [place] [address] Dr. Annabelle Kilgore MONO # 1.1 103/ul Critically high 0.3-0.8 [facility] Comment on above: Performed By: #### C BC #### [facility] [address] [place] [address] Dr. Annabelle Kilgore Monocytes/100 WBC (Bld) 7.8 % Normal 1.7-12.0 [facility] Comment on above: Performed By: #### C BC #### [facility] [address] [place] [address] Dr. Annabelle Kilgore NEUT # 9.2 103/ul Critically high 1.4-6.5 [facility] Comment on above: Performed By: #### C BC #### [facility] [address] [place] [address] Dr. Annabelle Kilgore Neutrophils/100 WBC (Bld) 65.3 % Normal 43.0-75.0 [facility] Comment on above: Performed By: #### C BC #### [facility] [address] [place] [address] Dr. Annabelle Kilgore Platelet mean volume (Bld) [Entitic vol] 9.8 fL Normal 9.5-13.5 [facility] Comment on above: Performed By: #### C BC #### [facility] [address] [place] [address] Dr. Annabelle Kilgore PLT 326 103/ul Normal 150-450 [facility] Comment on above: Performed By: #### C BC #### [facility] [address] [place] [address] Dr. Annabelle Kilgore RBC 4.54 106/ul Normal 4.20-5.40 [facility] Comment on above: Performed By: #### C BC #### [facility] [address] [place] [address] Dr. Annabelle Kilgore WBC 14.0 103/ul Critically high 4.0-11.0 [facility] Comment on above: Performed By: #### C BC #### [facility] [address] [address] [address] ABD/PELVIS WO CONon [...] Sharad PATEL Date: 2022-08-07 02:10 Normal [facility] ER URINE PROFILEon 3 Bilirubin Ql (U) SMALL Abnormal NEGATIVE [facility] Comment on above: Performed By: #### E RUR #### [facility] [address] [address] [address] Annabelle Kilgore Clarity (U) SL CLOUDY Abnormal CLEAR [facility] Comment on above: Performed By: #### E RUR #### [facility] [address] [place] [address] Dr. Annabelle Kilgore Color (U) LT. YELLOW Normal YELLOW [facility] Comment on above: Performed By: #### E RUR #### [facility] [address] [place] [address] Dr. Annabelle Kilgore ERUAHD A micrscopic examina tion will be performed if indicated. Normal [facility] Comment on above: Performed By: #### E RUR #### [facility] [address] [place] [address] Dr. Annabelle Kilgore Glucose Ql (U) Negative Normal NEGATIVE [facility] Comment on above: Performed By: #### E RUR #### [facility] [address] [place] [address] Dr. Annabelle Kilgore Hemoglobin Ql (U) Negative Normal NEGATIVE [facility] Comment on above: Performed By: #### E RUR #### [facility] [address] [place] [address] Dr. Annabelle Kilgore Ketones Ql (U) 15 mg/dl Abnormal NEGATIVE [facility] Comment on above: Performed By: #### E RUR #### [facility] [address] [place] [address] Dr. Annabelle Kilgore LEUKOCYTES Negative Normal NEGATIVE [facility] Comment on above: Performed By: #### E RUR #### [facility] [address] [place] [address] Dr. Annabelle Kilgore Nitrite Ql (U) Negative Normal NEGATIVE [facility] Comment on above: Performed By: #### E RUR #### [facility] [address] [place] [address] Dr. Annabelle Kilgore pH (U) 5.5 [pH] Normal 5-9 [facility] Comment on above: Performed By: #### E RUR #### [facility] [address] [address] [address] Annabelle Kilgore SPEC GRAVITY 1.030 Abnormal 1.005-<=1. 025 [facility] Comment on above: Performed By: #### E RUR #### [facility] [address] [place] [address] Dr. Annabelle Kilgore UA PROTEIN Negative Normal NEGATIVE/ TRACE [facility] Comment on above: Performed By: #### E RUR #### [facility] [address] [address] [address] Annabelle Kilgore UR MICRO IND NOT INDICATED Normal [facility] Comment on above: Performed By: #### E RUR #### [facility] [address] [place] [address] Dr. Annabelle Kilgore Urobilinogen Qn (U) 0.2 {Floyd'U}/dL Normal 0.2 - 1. 0 [facility] Comment on above: Performed By: #### E RUR #### [facility] [address] [place] [address] Dr. Annabelle Kilgore LACTATE/LACTIC ACIDon 2022 Lactate [Moles/Vol] 1.1 mmol/L Normal 0.4-2.0 [facility] Comment on above: Performed By: #### L ACT #### [facility] [address] [place] [address] Dr. Annabelle Kilgore LIPASEon 08-07-2022 Lipase [Catalytic activity/Vol] 37.0 U/L Critically low 73.0-393.0 [facility] Comment on above: Performed By: #### L IPA #### [facility] [address] [place] [address] Dr. Annabelle Kilgore PH VENOUS BLOODon 08-07-2022 PCO2 VENOUS 37.0 mmHg Critically low 40.0-52.0 [facility] Comment on above: Performed By: #### P HVEN ####[facility] [address] [place] [address]Dr. Annabelle Kilgore pH VENOUS 7.415 Normal 7.330-7.[address] [place] [address] Comment on above: Performed By: #### P HVEN ####[facility] [address] [place], [place] [address]ByDr. Annabelle Kilgore PROF 14(COMP METB)on 023 Albumin [Mass/Vol] 3.5 g/dL Normal 3.4-5.0 [facility] Comment on above: Performed By: #### C MP, HSTROPN #### [facility] [address] [address] [address] Annabelle Kilgore Albumin/Globulin [Mass ratio] 0.9 {ratio} Normal [facility] Comment on above: Performed By: #### C MP, HSTROPN #### [facility] [address] [place] [address] Dr. Annabelle Kilgore ALP [Catalytic activity/Vol] 82 U/L Normal 46-116 [facility] Comment on above: Performed By: #### C MP, HSTROPN #### [facility] [address] [place] [address] Dr. Annabelle Kilgore ALT [Catalytic activity/Vol] 35 U/L Normal 14-59 [facility] Comment on above: Performed By: #### C MP, HSTROPN #### [facility] [address] [place] [address] Dr. Annabelle Kilgore Anion gap [Moles/Vol] 18.2 mmol/L Normal [facility] Comment on above: Performed By: #### C MP, HSTROPN #### [facility] [address] [place] [address] Dr. Annabelle Kilgore AST [Catalytic activity/Vol] 21 U/L Normal 15-37 [facility] Comment on above: Performed By: #### C MP, HSTROPN #### [facility] [address] [address] [address] Annabelle Kilgore Bilirubin [Mass/Vol] 0.5 mg/dL Normal 0.2-1.0 [facility] Comment on above: Performed By: #### C MP, HSTROPN #### [facility] [address] [place] [address] Dr. Annabelle Kilgore Calcium [Mass/Vol] 9.2 mg/dL Normal 8.5-10.1 [facility] Comment on above: Performed By: #### C GÉNESIS, HSTROPN #### [facility] [address] [address] [address] Annabelle Kilgore Chloride [Moles/Vol] 104 mmol/L Normal 98-107 [facility] Comment on above: Performed By: #### C GÉNESIS, HSTROPN #### [facility] [address] [address] [address] Annabelle Kilgore CO2 [Moles/Vol] 23.1 mmol/L Normal 21.0-32.0 [facility] Comment on above: Performed By: #### C GÉNESIS, HSTROPN #### [facility] [address] [place] [address] Dr. Annabelle Kilgore Creatinine [Mass/Vol] 0.65 mg/dL Normal 0.55-1.02 [facility] Comment on above: Performed By: #### C GÉNESIS, HSTROPN #### [facility] [address] [place] [address] Dr. Annabelle Kilgore EGFR-AF CZECH >60 Normal >=60 [facility] Comment on above: Performed By: #### C GÉNESIS, HSTROPN #### [facility] [address] [place] [address] Dr. Annabelle Kilgore EGFR-NON AF CZECH >60 Normal >=60 [facility] Comment on above: Performed By: #### C GÉNESIS, HSTROPN #### [facility] [address] [place] [address] Dr. Annabelle Kilgore Globulin (S) [Mass/Vol] 3.9 g/dL Normal [facility] Comment on above: Performed By: #### C GÉNESIS, HSTROPN #### [facility] [address] [place] [address] Dr. Annabelle Kilgore Glucose [Mass/Vol] 122 mg/dL Critically high 74-106 [facility] Comment on above: Performed By: #### C GÉNESIS, HSTROPN #### [facility] [address] [address] [address] Annabelle Kilgore Potassium [Moles/Vol] 3.3 mmol/L Critically low 3.5-5.1 [facility] Comment on above: Performed By: #### C MP, HSTROPN #### [facility] [address] [address] [address] Annabelle Kilgore Protein [Mass/Vol] 7.4 g/dL Normal 6.4-8.2 [facility] Comment on above: Performed By: #### C MP, HSTROPN #### [facility] [address] [address] [address] Annabelle Kilgore Sodium [Moles/Vol] 142 mmol/L Normal 136-145 [facility] Comment on above: Performed By: #### C MP, HSTROPN #### [facility] [address] [place] [address] Dr. Annabelle Kilgore Urea nitrogen [Mass/Vol] 15.0 mg/dL Normal 7.0-18.0 [facility] Comment on above: Performed By: #### C MP, HSTROPN #### [facility] [address] [address] [address] Annabelle Kilgore Urea nitrogen/Creatinine [Mass ratio] 23.1 mg/mg Normal [facility] Comment on above: Performed By: #### C MP, HSTROPN #### [facility] [address] [place] [address] Dr. Annabelle Kilgore TROPONIN, HIGH SENSITIVITYon 08-07-2022 HSTROP 30.1 pg/mL Normal 4.0-51.3 [facility] Comment on above: Result Comment: CUT- OFF POINTS HAVE BEEN ESTABLISHED BASED ON THE FOURTH UNIVERSAL DEFINITIONS OF MYOCARDIAL INFARCTION. THE UPPER REFERENCE LIMIT (URL) OF TROPONIN, DEFINED THE 99TH PERCENTILE OF cTnI DISTRIBUTION IN A REFERENCE POPULATION, HAS BEEN CONFIRMED THE DECISION THRESHOLD FOR [place] DIAGNOSIS. Performed By: #### C MP, HSTROPN #### [facility] [address] [place] [address] Dr. Annabelle Kilgore MG MAMM SCREEN 3D HECTOR CADon 08-04-2022 MG MAMM SCREEN 3D HECTOR CAD Patient: TASHA PAUL Exam Date: 08/04/2022 : 1975 Gender:F Ordering : DENISE MEJIA [employer] SPECIALIST Admission #: [id number] Family : Order #: [id number] CLICK HERE TO VIEW EXAM RADIOLOGY REPORT [...] ovarian cancer at age 42. LOCATION: [facility] BREAST COMPOSITION: Scattered areas fibroglandular [...] MD on 08/07/2022 at 10:05 Normal [facility] Alanine aminotransferase [En zymatic activity/volume] in Serum or PlasmaOrdered By: Glenna Quinones on 07-19-2022 ALT [Catalytic activity/Vol] 25 U/L 7-52 [facility] Albumin [Mass/volume] in Ser um or Plasma by Bromocresol green (BCG) dye binding methoOrdered By: Glenna Quinones on 07-19-2022 Albumin BCG dye [Mass/Vol] 4.2 g/dL 3.5-5.7 [facility] Alkaline phosphatase [Enzyma tic activity/volume] in Serum or PlasmaOrdered By: Glenna Quinones on 07-19-2022 ALP [Catalytic activity/Vol] 84 U/L 34-104 [facility] Aspartate aminotransferase [ Enzymatic activity/volume] in Serum or PlasmaOrdered By: Glenna Quinones on 07-19-2022 AST [Catalytic activity/Vol] 17 U/L 13-39 [facility] Bilirubin.total [Mass/volume ] in Serum or PlasmaOrdered By: Glenna Quinones on 07-19-2022 Bilirubin [Mass/Vol] 0.6 mg/dL 0.3-1.0 [facility] Calcium [Mass/volume] in Ser um or PlasmaOrdered By: Glenna Quinones on 07-19-2022 Calcium [Mass/Vol] 9.6 mg/dL 8.6-10.3 [facility] Carbon dioxide, total [Moles /volume] in Serum or PlasmaOrdered By: Glenna Quinones on 07-19-2022 CO2 [Moles/Vol] 26.4 mmol/L 21.0-31.0 [facility] Chloride [Moles/volume] in S cindy or PlasmaOrdered By: Glenna Quinones on 07-19-2022 Chloride [Moles/Vol] 102 mmol/L 98-107 [facility] Cholesterol [Mass/volume] in Serum or PlasmaOrdered By: Glenna Quinones on 07-19-2022 Cholesterol [Mass/Vol] 144 mg/dL 140-200 [facility] Comment on above: Chol less than 200 m g/dl low riskChol 201-239 mg/dl borderline riskChol 240 mg/dl and greater high risk Cholesterol in LDL Calc [Mas s/Vol]Ordered By: Glenna Quinones on 07-19-2022 Cholesterol in LDL [Mass/Vol] 66 mg/dL 0-100 [facility] Comment on above: LDL ATP III CLASSIFI CATIONLDL less than 100 mg/dL OptimalLDL 100-129 mg/dL Near or above optimalLDL 130-159 mg/dL Borderline highLDL 160-189 mg/dL HighLDL greater than 189 mg/dL Very high Cholesterol in VLDL Calc [Ma ss/Vol]Ordered By: Glenna Quinones on 07-19-2022 Cholesterol in VLDL [Mass/Vol] 33 mg/dL [facility] Creatinine [Mass/volume] in Serum or PlasmaOrdered By: Glenna Quinones on 07-19-2022 Creatinine [Mass/Vol] 0.52 mg/dL 0.60-1.20 [facility] [place] [facility] Creatinine [Mass/volume] in UrineOrdered By: Glenna Quinones on 07-19-2022 Creatinine (U) [Mass/Vol] 146.0 mg/dL [facility] Comment on above: No reference range e stablished Globulin Calc (S) [Mass/Vol] Ordered By: Glenna Quinones on 07-19-2022 Globulin (S) [Mass/Vol] 2.9 g/dL [facility] Glucose [Mass/volume] in Ser um or PlasmaOrdered By: Glenna Quinones on 07-19-2022 Glucose [Mass/Vol] 140 mg/dL 70-100 [facility] Comment on above: ADA recommended refe rence rangeRandom Glucose Reference Range is dependent on time and content of last meal. Glucose of more than 200 mg/dL in a nonstressed, ambulatory subject supports the diagnosis of Diabetes Mellitus. Microalbumin [Mass/volume] i n UrineOrdered By: Glenna Quinones on 07-19-2022 Albumin DL <= 20 mg/L (U) [Mass/Vol] 2.2 mg/dL 0.0-1.8 [facility] No Panel InformationOrdered By: Glenna Quinones on 07-19-2022 Estimated GFR (CKD-EPI) > 60.0 mL/Min [facility] Creatinine Clearance (Chem N/A [facility] Potassium [Moles/volume] in Serum or PlasmaOrdered By: Glenna Quinones on 07-19-2022 Potassium [Moles/Vol] 4.2 mmol/L 3.5-5.1 [facility] [place] [facility] Protein [Mass/volume] in Ser um or PlasmaOrdered By: Glenna Quinones on 07-19-2022 Protein [Mass/Vol] 7.1 g/dL 6.4-8.9 [facility] Serum or plasma albumin/glob ulin mass ratioOrdered By: Glenna Quinones on 07-19-2022 Albumin/Globulin [Mass ratio] 1.4 {ratio} [facility] Serum or plasma anion gap de terminationOrdered By: Glenna Quinones on 07-19-2022 Anion gap [Moles/Vol] 15.8 mmol/L 6.0-15.0 [facility] Serum or plasma high density lipoprotein (HDL) cholesterol measurementOrdered By: Glenna Quinones on 07-19-2022 Cholesterol in HDL [Mass/Vol] 45 mg/dL 35-85 [facility] Comment on above: HDL CHOL ATP-III CLA SSIFICATION Cardiovascular RiskHDL > or equal to 60 mg/dL LOWHDL < 40 mg/dL HIGH Serum or plasma total choles terol/high density lipoprotein (HDL) cholesterol mass ratOrdered By: Glenna Quinones on 07-19-2022 Cholesterol.total/Chol esterol in HDL [Mass ratio] 3.2 {ratio} <5.0 [facility] Sodium [Moles/volume] in Ser um or PlasmaOrdered By: Glenna Quinones on 07-19-2022 Sodium [Moles/Vol] 140 mmol/L 136-145 [facility] Triglyceride [Mass/volume] i n Serum or PlasmaOrdered By: Glenna Quinones on 07-19-2022 Triglyceride [Mass/Vol] 167 mg/dL 0-149 [facility] Comment on above: TRIG ATP III CLASSIF ICATIONTRIG less than 150 mg/dL NormalTRIG 150-199 mg/dL Borderline highTRIG 200-500 mg/dL High TRIG greater than 500 mg/dL Very highStandard traceable to the Center for Disease Conrtrol and Prevention (CDC) test method. Urea nitrogen [Mass/volume] in Serum or PlasmaOrdered By: Glenna Quinones on 07-19-2022 Urea nitrogen [Mass/Vol] 15 mg/dL 7-25 [facility] Urine microalbumin/creatinin e mass ratioOrdered By: Glenna Quinones on 07-19-2022 Albumin/Creatinine DL <= 20 mg/L (U) [Mass ratio] 15.0 mg/g 0.0-30.0 [facility] Comment on above: 30-300 mg/g indicate s an increased risk for diabetic nephropathy. Greater than 300 mg/g is consistent with clinical nephropathy. (Am. J. Kidney Disease 1995, 25:107) Vitamin B12 ser/plasOrdered By: Glenna Quinones on 07-19-2022 Cobalamin (Vitamin B12) [Mass/Vol] 615 pg/mL 180-914 [facility] Vitamin D+Metabolites [Mass/ volume] in Serum or PlasmaOrdered By: Glenna Quinones on 07-19-2022 Vitamin D+Metabolites [Mass/Vol] 37.0 ng/mL 30-100 [facility] Comment on above: VITAMIN D STATUS 25( [place])VITAMIN D RANGE (ng/mL) Deficient <20 Insufficient 20 to <30Sufficient 30 to 100Reference: Eulalio MF,Janny NC, Zeus VALLE, et al. Evaluation,treatment, and prevention of vitamin D deficiency; an Endocrine Society clinical practice guideline. JCEM. 2010; 96(7):1911-30. Glucose - FINGER STICKon Glucose [Mass/Vol] 89 mg/dL [employer] Other A1C HEMOGLOBINon 09-27-2021 HbA1c (Bld) [Mass fraction] 8.5 % [employer] Other Glucose - [facility]INGER [facility]ICKon Glucose [Mass/Vol] 157 mg/dL [employer] Other HbA1c (Bld) [Mass fraction]o n 09-27-2021 A1C HEMOGLOBIN [employer] Other Glucose - FINGER STICKon Glucose [Mass/Vol] 272 mg/dL [employer] Other Glucose - FINGER [place]ICKon Glucose [Mass/Vol] 378 mg/dL [employer] Other A1C HEMOGLOBINon 04-11-2021 HbA1c (Bld) [Mass fraction] 9.3 % [employer] Other Glucose - FINGER STICKon Glucose [Mass/Vol] 252 mg/dL [employer] Other HbA1c (Bld) [Mass fraction]o n 04-11-2021 A1C HEMOGLOBIN [employer] Other Albumin [Mass/volume] in Ser um or Plasmaon 04-28-2020 Albumin [Mass/Vol] 3.5 g/dL 3.2-5.5 [facility] Cholesterol [Mass/volume] in Serum or Plasmaon 04-28-2020 Cholesterol [Mass/Vol] 261 mg/dL 140-200 [facility] Comment on above: Chol less than 200 m g/dl low riskChol 201-239 mg/dl borderline riskChol 240 mg/dl and greater high risk Cholesterol in LDL Calc [Mas s/Vol]on 04-28-2020 Cholesterol in LDL [Mass/Vol] [facility] Comment on above: Test not performed Cholesterol in VLDL Calc [Ma ss/Vol]on 04-28-2020 Cholesterol in VLDL [Mass/Vol] [facility] Comment on above: Test not performed Creatinine [Mass/volume] in Urineon 04-28-2020 Creatinine (U) [Mass/Vol] 52.4 mg/dL [facility] Comment on above: No reference range e stablished Creatinine and Glomerular fi ltration rate.predicted panel (S/P/Bld)on 04-28-2020 Creatinine [Mass/Vol] 0.63 mg/dL 0.44-1.03 [facility] Estimated glomerular filtrat ion rate (GFR) non- Americanon 04-28-2020 GFR/1.73 sq M.predicted among non-blacks MDRD (S/P/Bld) [Vol rate/Area] mL/min/{1.73_m2} [facility] Globulin Calc (S) [Mass/Vol] on 04-28-2020 Globulin (S) [Mass/Vol] 2.7 g/dL [facility] Laboratory - Chemistry and C hemistry - challengeon 04-28-2020 Cobalamin (Vitamin B12) [Mass/Vol] 247 pg/mL 180-914 [facility] GFR/1.73 sq M.predicted MDRD (S/P/Bld) [Vol rate/Area] mL/min/{1.73_m2} [facility] Comment on above: GFR estimated refere nce range: According to KDOQI guidelines, <60 ml/min/1.73m2 is sufficient to diagnose a patient with chronic kidney disease. No Panel Informationon 04-28 25-Hydroxy Vitamin D Total 20.1 ng/mL 30-100 [facility] Comment on above: VITAMIN D STATUS 25( [place])VITAMIN D RANGE (ng/mL) Deficient <20 Insufficient 20 to <30Sufficient 30 to 100Reference: Eulalio DALE,Janny GARCIA, Zeus VALLE, et al. Evaluation,treatment, and prevention of vitamin D deficiency; an Endocrine Society clinical practice guideline. JCEM. 2010; 96(7):1911-30. Pharmacy Creatinine Clearance (Chem N/A [facility] Protein [Mass/volume] in Ser um or Plasmaon 04-28-2020 Protein [Mass/Vol] 6.2 g/dL 6.1-7.9 [facility] Serum or plasma alanine mcdaniel otransferase measurement without P-5'-P (enzymatic activion 04-28-2020 ALT No additional P-5'-P [Catalytic activity/Vol] 21 U/L 10-60 [facility] Serum or plasma albumin/glob ulin mass ratioon 04-28-2020 Albumin/Globulin [Mass ratio] 1.3 {ratio} [facility] Serum or plasma alkaline maya sphatase measurement (enzymatic activity/volume)on 04-28-2020 ALP [Catalytic activity/Vol] 86 U/L 32-92 [facility] Serum or plasma aspartate am inotransferase measurement (enzymatic activity/volume)on 04-28-2020 AST [Catalytic activity/Vol] 19 U/L 10-42 [facility] Serum or plasma calcium mallory urement (mass/volume)on 04-28-2020 Calcium [Mass/Vol] 9.1 mg/dL 8.2-10.2 [facility] Serum or plasma chloride grzegorz surement (moles/volume)on 04-28-2020 Chloride [Moles/Vol] 103 mmol/L 95-114 [facility] Serum or plasma cholesterol in LDL measurement (mass/volume)on 04-28-2020 Cholesterol in LDL [Mass/Vol] 148 mg/dL 0-100 [facility] Comment on above: LDL ATP III CLASSIFI CATIONLDL less than 100 mg/dL OptimalLDL 100-129 mg/dL Near or above optimalLDL 130-159 mg/dL Borderline highLDL 160-189 mg/dL HighLDL greater than 189 mg/dL Very high Serum or plasma glucose mallory urement (mass/volume)on 04-28-2020 Glucose [Mass/Vol] 90 mg/dL 70-100 [facility] Comment on above: ADA recommended refe rence rangeRandom Glucose Reference Range is dependent on time and content of last meal. Glucose of more than 200 mg/dL in a nonstressed, ambulatory subject supports the diagnosis of Diabetes Mellitus. Serum or plasma high density lipoprotein (HDL) cholesterol measurementon 04-28-2020 Cholesterol in HDL [Mass/Vol] 56 mg/dL 35-85 [facility] Comment on above: HDL CHOL ATP-III CLA SSIFICATION Cardiovascular RiskHDL > or equal to 60 mg/dL LOWHDL < 40 mg/dL HIGH Serum or plasma potassium me asurement (moles/volume)on 04-28-2020 Potassium [Moles/Vol] 4.3 mmol/L 3.5-5.1 [facility] Serum or plasma sodium measu rement (moles/volume)on 04-28-2020 Sodium [Moles/Vol] 137 mmol/L 136-146 [facility] Serum or plasma total biliru bin measurement (mass/volume)on 04-28-2020 Bilirubin [Mass/Vol] 0.5 mg/dL 0.3-1.2 [facility] Serum or plasma total carbon dioxide measurement (moles/volume)on 04-28-2020 CO2 [Moles/Vol] 24.8 mmol/L 22.0-30.0 [facility] Serum or plasma total choles terol/high density lipoprotein (HDL) cholesterol mass felix 04-28-2020 Cholesterol.total/Chol esterol in HDL [Mass ratio] 4.7 {ratio} <5.0 [facility] Serum or plasma urea nitroge n measurement (mass/volume)on 04-28-2020 Urea nitrogen [Mass/Vol] 12 mg/dL 9-23 [facility] Triglyceride [Mass/volume] i n Serum or Plasmaon 04-28-2020 Triglyceride [Mass/Vol] 418 mg/dL 35-149 [facility] Comment on above: If the [...] 20 mg/L (U) [Mass/Vol] 0.5 mg/dL 0.0-1.8 [facility] Urine microalbumin/creatinin e mass ratioon 04-28-2020 Albumin/Creatinine DL <= 20 mg/L (U) [Mass ratio] 9.0 mg/g 0.0-30.0 [facility] Comment on above: 30-300 mg/g indicate s an increased risk for diabetic nephropathy. Greater than 300 mg/g is consistent with clinical nephropathy. (Am. J. Kidney Disease 1995, 25:107) No Panel Information [facility] Vital Signs Date Time Vital Sign Value Performing Clinician Facility 05-27-2024 14:17-0500 Blood Pressure Location Donell [facility]GRATH [facility] [place] 05-27-2024 14:17-0500 Diastolic blood pressure 88 mm[Hg] Donell MCGRATH [facility] [place] 05-27-2024 14:17-0500 Heart rate 72 /min Donell [facility]GRATH [facility] [place] 05-27-2024 14:17-0500 Respiratory rate 16 /min Donell [facility]GRATH [facility] [place] 05-27-2024 14:17-0500 Systolic blood pressure 126 mm[Hg] Donell MCGRATH [facility] [place] 05-01-2024 14:34-0500 Diastolic blood pressure 88 mm[Hg] Sonya Mejia NP Work Phone: [facility] 05-01-2024 14:34-0500 Systolic blood pressure 136 mm[Hg] Sonya Mejia GEOGRAPHY INSTRUCTOR Work Phone: [facility] 05-01-2024 13:57-0500 Body height 167.6 cm Sonya Mejia GEOGRAPHY INSTRUCTOR Work Phone: [facility] 05-01-2024 13:57-0500 Body mass index (BMI) [Ratio] 41.84 kg/m2 Sonya Mejia GEOGRAPHY INSTRUCTOR Work Phone: [facility] 05-01-2024 13:57-0500 Body temperature 98.1 [degF] Sonya Mejia GEOGRAPHY INSTRUCTOR Work Phone: [facility] 05-01-2024 13:57-0500 Body weight 117.57 kg Sonya Mejia GEOGRAPHY INSTRUCTOR Work Phone: [facility] 05-01-2024 13:57-0500 Heart rate 113 /min Sonya Mejia GEOGRAPHY INSTRUCTOR Work Phone: [facility] 05-01-2024 13:57-0500 Respiratory rate 20 /min Sonya Mejia GEOGRAPHY INSTRUCTOR Work Phone: [facility] 05-01-2024 13:57-0500 SaO2% (BldA) [Mass fraction] 96 % Sonya Mejia GEOGRAPHY INSTRUCTOR Work Phone: [facility] 03-03-2024 13:02-0500 Body height 165.[address] [facility] 03-03-2024 13:02-0500 Body mass index (BMI) [Ratio] 44.1 kg/m2 [facility] 03-03-2024 13:02-0500 Body weight 120.[address] [facility] 03-03-2024 13:02-0500 Diastolic blood pressure 83 mm[Hg] [facility] 03-03-2024 13:02-0500 Heart rate 108 /min [facility] 03-03-2024 13:02-0500 Respiratory rate 18 /min [facility] 03-03-2024 13:02-0500 SaO2% (BldA) [Mass fraction] 96 % [facility] 03-03-2024 13:02-0500 Systolic blood pressure 117 mm[Hg] [facility] 02-21-2024 10:59-0400 Body mass index (BMI) [Ratio] 42.61 kg/m2 Sonya Mejia GEOGRAPHY INSTRUCTOR Work Phone: [facility] 02-21-2024 10:59-0400 Body temperature 98.71 [degF] Sonya Emaniholz GEOGRAPHY INSTRUCTOR Work Phone: [facility] 02-21-2024 10:59-0400 Body weight 119.75 kg Sonya Emaniholz GEOGRAPHY INSTRUCTOR Work Phone: [facility] 02-21-2024 10:59-0400 Diastolic blood pressure 86 mm[Hg] Sonya Emaniholz GEOGRAPHY INSTRUCTOR Work Phone: [facility] 02-21-2024 10:59-0400 Heart rate 107 /min Sonya Emaniholz GEOGRAPHY INSTRUCTOR Work Phone: [facility] 02-21-2024 10:59-0400 SaO2% (BldA) [Mass fraction] 95 % Sonya Emaniholz GEOGRAPHY INSTRUCTOR Work Phone: [facility] 02-21-2024 10:59-0400 Systolic blood pressure 138 mm[Hg] Sonya Emaniholz GEOGRAPHY INSTRUCTOR Work Phone: [facility] 01-30-2024 14:30-0400 Body height 167.6 cm Sonya Joaquinholz GEOGRAPHY INSTRUCTOR Work Phone: [facility] 01-30-2024 14:30-0400 Body mass index (BMI) [Ratio] 43.22 kg/m2 Sonya Emanihholz GEOGRAPHY INSTRUCTOR Work Phone: [facility] 01-30-2024 14:30-0400 Body temperature 98.29 [degF] Sonya Emaniholz GEOGRAPHY INSTRUCTOR Work Phone: [facility] 01-30-2024 14:30-0400 Body weight 121.47 kg Sonya Emaniholz GEOGRAPHY INSTRUCTOR Work Phone: [facility] 01-30-2024 14:30-0400 Diastolic blood pressure 86 mm[Hg] Sonya Mejia GEOGRAPHY INSTRUCTOR Work Phone: [facility] 01-30-2024 14:30-0400 Heart rate 96 /min Sonya Mejia GEOGRAPHY INSTRUCTOR Work Phone: [facility] 01-30-2024 14:30-0400 Respiratory rate 20 /min Sonya Laoz GEOGRAPHY INSTRUCTOR Work Phone: [facility] 01-30-2024 14:30-0400 SaO2% (BldA) [Mass fraction] 96 % Sonya Mejia GEOGRAPHY INSTRUCTOR Work Phone: [facility] 01-30-2024 14:30-0400 Systolic blood pressure 138 mm[Hg] Sonya Joaquinholz GEOGRAPHY INSTRUCTOR Work Phone: [facility] 01-22-2024 14:25-0400 Body height 165.[address] [facility] 01-22-2024 14:25-0400 Body mass index (BMI) [Ratio] 44.2 kg/m2 [facility] 01-22-2024 14:25-0400 Body weight 120.[address] [facility] 01-22-2024 14:25-0400 Diastolic blood pressure 66 mm[Hg] [facility] 01-22-2024 14:25-0400 Heart rate 100 /min [facility] 01-22-2024 14:25-0400 Respiratory rate 18 /min [facility] 01-22-2024 14:25-0400 SaO2% (BldA) [Mass fraction] 96 % [facility] 01-22-2024 14:25-0400 Systolic blood pressure 110 mm[Hg] [facility] 11-26-2023 14:03-0400 Body height 165.[address] [facility] 11-26-2023 14:03-0400 Body mass index (BMI) [Ratio] 45.9 kg/m2 [facility] 11-26-2023 14:03-0400 Body weight 125.[address] [facility] 11-26-2023 14:03-0400 Diastolic blood pressure 84 mm[Hg] [facility] 11-26-2023 14:03-0400 Heart rate 112 /min [facility] 11-26-2023 14:03-0400 Respiratory rate 18 /min [facility] 11-26-2023 14:03-0400 SaO2% (BldA) [Mass fraction] 96 % [facility] 11-26-2023 14:03-0400 Systolic blood pressure 139 mm[Hg] [facility] 10-11-2023 13:30-0400 Body height 165.1 cm Sonya TournEase Work Phone: [facility] 10-11-2023 13:30-0400 Body mass index (BMI) [Ratio] 44.4 kg/m2 Sonya TournEase Work Phone: [facility] 10-11-2023 13:30-0400 Body weight 121.1 kg Sonya TournEase Work Phone: [facility] 08-21-2023 12:54-0400 Body height 165.1 cm [employer] Work Phone: [facility] 08-21-2023 12:54-0400 Body mass index (BMI) [Ratio] 44.6 kg/m2 [employer] Work Phone: [facility] 08-21-2023 12:54-0400 Body weight 121.56 kg [employer] Work Phone: [facility] 08-21-2023 12:54-0400 Diastolic blood pressure 82 mm[Hg] [employer] Work Phone: [facility] 08-21-2023 12:54-0400 Heart rate 121 /min [employer] Work Phone: [facility] 08-21-2023 12:54-0400 Respiratory rate 20 /min [employer] Work Phone: [facility] 08-21-2023 12:54-0400 SaO2% (BldA) [Mass fraction] 95 % [facility] Work Phone: [facility] 08-21-2023 12:54-0400 Systolic blood pressure 138 mm[Hg] [facility] Work Phone: [facility] 06-07-2023 17:03-0500 Body height 167.6 cm Sonya Emanidanishholz GEOGRAPHY INSTRUCTOR Work Phone: [facility] 06-07-2023 17:03-0500 Body mass index (BMI) [Ratio] 42.74 kg/m2 Sonya Aichholz GEOGRAPHY INSTRUCTOR Work Phone: [facility] 06-07-2023 17:03-0500 Body temperature 97.59 [degF] Sonya Aichholz GEOGRAPHY INSTRUCTOR Work Phone: [facility] 06-07-2023 17:03-0500 Body weight 120.11 kg Sonya Aichholz GEOGRAPHY INSTRUCTOR Work Phone: [facility] 06-07-2023 17:03-0500 Diastolic blood pressure 80 mm[Hg] Sonya Aichholz GEOGRAPHY INSTRUCTOR Work Phone: [facility] 06-07-2023 17:03-0500 Heart rate 109 /min Sonya Aichholz GEOGRAPHY INSTRUCTOR Work Phone: [facility] 06-07-2023 17:03-0500 Respiratory rate 19 /min Sonya Aichholz GEOGRAPHY INSTRUCTOR Work Phone: [facility] 06-07-2023 17:03-0500 SaO2% (BldA) [Mass fraction] 98 % Sonya Aichholz GEOGRAPHY INSTRUCTOR Work Phone: [facility] 06-07-2023 17:03-0500 Systolic blood pressure 122 mm[Hg] Sonya Aichholz GEOGRAPHY INSTRUCTOR Work Phone: [facility] 02-19-2023 14:00-0400 Body height 165.1 cm Glenna Joni Other [employer] Other 02-19-2023 14:00-0400 Body mass index (BMI) [Ratio] 42.76 kg/m2 Glenna Scally Other [employer] Other 02-19-2023 14:00-0400 Body weight 116.58 kg Glenna Scally Other [employer] Other 02-19-2023 14:00-0400 Diastolic blood pressure 76 mm[Hg] Glenna Scally Other [employer] Other 02-19-2023 14:00-0400 Respiratory rate 18 /min Glenna Scally Other [employer] Other 02-19-2023 14:00-0400 SaO2% (BldA) [Mass fraction] 96 % Glenna Scally Other [employer] Other 02-19-2023 14:00-0400 Systolic blood pressure 127 mm[Hg] Glenna Scally Other [employer] Other 01-16-2023 13:00-0400 Body height 165.1 cm Glenna Scally Other [employer] Other 01-16-2023 13:00-0400 Body mass index (BMI) [Ratio] 40.63 kg/m2 Glenna Scally Other [employer] Other 01-16-2023 13:00-0400 Body weight 110.77 kg Glenna Scally Other [employer] Other 11-21-2022 13:00-0400 Body height 165.1 cm Glenna Scally Other [employer] Other 11-21-2022 13:00-0400 Body mass index (BMI) [Ratio] 41.36 kg/m2 Glenna Scally Other [employer] Other 11-21-2022 13:00-0400 Body weight 112.76 kg Glenna Scally Other [employer] Other 11-21-2022 13:00-0400 Diastolic blood pressure 93 mm[Hg] Glenna Scally Other [employer] Other 11-21-2022 13:00-0400 Respiratory rate 18 /min Glenna Scally Other [employer] Other 11-21-2022 13:00-0400 SaO2% (BldA) [Mass fraction] 98 % Glenna Scally Other [employer] Other 11-21-2022 13:00-0400 Systolic blood pressure 137 mm[Hg] Glenna Scally Other [employer] Other 11-20-2022 15:00-0400 Body height 165.1 cm Mark Gramajo Other [employer] Other 11-20-2022 15:00-0400 Body mass index (BMI) [Ratio] 41.05 kg/m2 Mark Gramajo Other [employer] Other 11-20-2022 15:00-0400 Body weight 111.9 kg Mark Gramajo Other [employer] Other 11-20-2022 15:00-0400 Diastolic blood pressure 89 mm[Hg] Mark Scovanner Other [employer] Other 11-20-2022 15:00-0400 Systolic blood pressure 133 mm[Hg] Mark Scovanner Other [employer] Other 10-17-2022 11:00-0400 Body height 165.1 cm Glenna Scally Other [employer] Other 10-17-2022 11:00-0400 Body mass index (BMI) [Ratio] 41.76 kg/m2 Glenna Scally Other [employer] Other 10-17-2022 11:00-0400 Body weight 113.85 kg Glenna Scally Other [employer] Other 08-30-2022 14:00-0400 Body height 165.1 cm Glenna Scally Other [employer] Other 08-30-2022 14:00-0400 Body mass index (BMI) [Ratio] 42.25 kg/m2 Glenna Scally Other [employer] Other 08-30-2022 14:00-0400 Body weight 115.17 kg Glenna Scally Other [employer] Other 08-30-2022 14:00-0400 Diastolic blood pressure 88 mm[Hg] Glenna Scally Other [employer] Other 08-30-2022 14:00-0400 Respiratory rate 18 /min Glenna Scally Other [employer] Other 08-30-2022 14:00-0400 SaO2% (BldA) [Mass fraction] 96 % Glenna Scally Other [employer] Other 08-30-2022 14:00-0400 Systolic blood pressure 136 mm[Hg] Glenna Scally Other [employer] Other 07-19-2022 14:00-0400 Body height 165.1 cm Glenna Scally Other [employer] Other 07-19-2022 14:00-0400 Body mass index (BMI) [Ratio] 42.1 kg/m2 Glenna Scally Other [employer] Other 07-19-2022 14:00-0400 Body weight 114.76 kg Glenna Scally Other [employer] Other 04-26-2022 14:00-0500 Body height 165.1 cm Glenna Scally Other [employer] Other 04-26-2022 14:00-0500 Body mass index (BMI) [Ratio] 42.3 kg/m2 Glenna Scally Other [employer] Other 04-26-2022 14:00-0500 Body weight 115.31 kg Glenna Scally Other [employer] Other 03-14-2022 14:00-0500 Body height 165.1 cm Glenna Scally Other [employer] Other 03-14-2022 14:00-0500 Body mass index (BMI) [Ratio] 43.13 kg/m2 Glenna Scally Other [employer] Other 03-14-2022 14:00-0500 Body weight 117.57 kg Glenna Scally Other [employer] Other 02-16-2022 14:00-0400 Body height 165.1 cm Glenna Scally Other [employer] Other 02-16-2022 14:00-0400 Body mass index (BMI) [Ratio] 41.18 kg/m2 Glenna Scally Other [employer] Other 02-16-2022 14:00-0400 Body weight 112.27 kg Glenna Scally Other [employer] Other 02-16-2022 14:00-0400 Diastolic blood pressure 99 mm[Hg] Glenna Scally Other [employer] Other 02-16-2022 14:00-0400 Respiratory rate 18 /min Glenna Scally Other [employer] Other 02-16-2022 14:00-0400 SaO2% (BldA) [Mass fraction] 97 % Glenna Scally Other [employer] Other 02-16-2022 14:00-0400 Systolic blood pressure 141 mm[Hg] Glenna Scally Other [employer] Other 09-27-2021 14:00-0400 Body height 165.1 cm Glenna Scally Other [employer] Other 09-27-2021 14:00-0400 Body mass index (BMI) [Ratio] 42.01 kg/m2 Glenna Scally Other [employer] Other 09-27-2021 14:00-0400 Body weight 114.53 kg Glenna Scally Other [employer] Other 09-27-2021 14:00-0400 Diastolic blood pressure 90 mm[Hg] Glenna Scally Other [employer] Other 09-27-2021 14:00-0400 Respiratory rate 18 /min Glenna Scally Other [employer] Other 09-27-2021 14:00-0400 SaO2% (BldA) [Mass fraction] 96 % Glenna Scally Other [employer] Other 09-27-2021 14:00-0400 Systolic blood pressure 120 mm[Hg] Glenna Scally Other [employer] Other 08-17-2021 14:00-0400 Body height 165.1 cm Glenna Scally Other [employer] Other 08-17-2021 14:00-0400 Body mass index (BMI) [Ratio] 41.73 kg/m2 Glenna Scally Other [employer] Other 08-17-2021 14:00-0400 Body weight 113.76 kg Glenna Scally Other [employer] Other 08-02-2021 15:00-0400 Body height 165.1 cm Glenna Scally Other [employer] Other 08-02-2021 15:00-0400 Body mass index (BMI) [Ratio] 42.9 kg/m2 Glenna Scally Other [employer] Other 08-02-2021 15:00-0400 Body weight 116.94 kg Glenna Scally Other [employer] Other 08-02-2021 15:00-0400 Diastolic blood pressure 91 mm[Hg] Glenna Scally Other [employer] Other 08-02-2021 15:00-0400 Respiratory rate 18 /min Glenna Scally Other [employer] Other 08-02-2021 15:00-0400 SaO2% (BldA) [Mass fraction] 98 % Glenna Scally Other [employer] Other 08-02-2021 15:00-0400 Systolic blood pressure 132 mm[Hg] Glenna Scally Other [employer] Other 07-05-2021 14:30-0400 Body height 165.1 cm Glenna Scally Other [employer] Other 07-05-2021 14:30-0400 Body mass index (BMI) [Ratio] 42.6 kg/m2 Glenna Scally Other [employer] Other 07-05-2021 14:30-0400 Body weight 116.12 kg Glenna Scally Other [employer] Other 07-05-2021 14:30-0400 Diastolic blood pressure 93 mm[Hg] Glenna Scally Other [employer] Other 07-05-2021 14:30-0400 Respiratory rate 20 /min Glenna Scally Other [employer] Other 07-05-2021 14:30-0400 SaO2% (BldA) [Mass fraction] 98 % Glenna Scally Other [employer] Other 07-05-2021 14:30-0400 Systolic blood pressure 133 mm[Hg] Glenna Scally Other [employer] Other 04-11-2021 15:30-0500 Body height 165.1 cm Glenna Scally Other [employer] Other 04-11-2021 15:30-0500 Body mass index (BMI) [Ratio] 42.43 kg/m2 Glenna Scally Other [employer] Other 04-11-2021 15:30-0500 Body weight 115.67 kg Glenna Scally Other [employer] Other 04-11-2021 15:30-0500 Diastolic blood pressure 92 mm[Hg] Glenna Scally Other [employer] Other 04-11-2021 15:30-0500 Respiratory rate 20 /min Glenan Scally Other [employer] Other 04-11-2021 15:30-0500 SaO2% (BldA) [Mass fraction] 97 % Glenna Scally Other [employer] Other 04-11-2021 15:30-0500 Systolic blood pressure 136 mm[Hg] Glenna Quinones Other [facility] Other Encounters Encounter Date Encounter Type Care Provider Facility Start: 06-03-2024 End: 06-03-2024 Patient encounter procedure Jason Acevedo MD Work Phone: Ophthalmology Comment on above: Type 2 diabetes marti itus with both eyes affected 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, unspecified whether chcf insulin use (HCC) (Primary Dx); 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, bilateral; Nuclear sclerotic cataract, bilateral Start: 05-27-2024 End: 05-27-2024 ambulatory [facility]ell [facility] [place] [place] Start: 05-27-2024 End: 05-27-2024 Patient encounter procedure Donell [facility]GRATH [facility] [place] Start: 05-15-2024 End: 05-15-2024 ambulatory [facility] Work Phone: Start: 05-15-2024 End: 05-15-2024 Patient encounter procedure [facility] Work Phone: Start: 05-05-2024 ambulatory Donell [facility]GRATH Facility:[facility] Start: 05-01-2024 End: 05-01-2024 Bamboo flowsheet Sonya Mejia GEOGRAPHY INSTRUCTOR Work Phone: [facility] Start: 05-01-2024 End: 05-01-2024 Bamboo flowsheet Sonya Mejia GEOGRAPHY INSTRUCTOR Work Phone: [facility] Start: 05-01-2024 End: 05-01-2024 Office outpatient visit 25 minutes Sonya Mejia NP Work Phone: [facility] Comment on above: Primary hypertension (CMS/HCC) (Primary Dx); Type 2 diabetes mellitus with diabetic cataract (CMS/HCC); Type 2 diabetes mellitus 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 edema, unspecified eye (CMS/HCC); Opioid abuse, in remission ([facility]); FCI (current) use of insulin ([facility]); Morbid (severe) obesity due to excess calories ([facility]); Body mass index (BMI) 40.0-44.9, adult ([facility]); Gastroesophageal reflux disease, unspecified whether esophagitis present; Adenocarcinoma of endometrium, stage 1 ([facility]); Class 3 severe obesity due to excess calories without serious comorbidity with body mass index (BMI) of 40.0 to 44.9 in adult ([facility]); 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, with long-term current use of insulin, macular edema presence unspecified, unspecified laterality, unspecified proliferative retinop* ([facility]); Anxiety and depression ([facility]); Mixed hyperlipidemia ([facility]); Environmental and seasonal allergies; Anxiety; Major depressive disorder with single episode, remission status unspecified ([facility]); Colon cancer screening Start: 05-01-2024 End: 05-01-2024 ambulatory SONYA MEJIA Not Available Start: 03-03-2024 End: 03-03-2024 ambulatory [facility] Work Phone: Start: 03-03-2024 End: 03-03-2024 Patient encounter procedure [facility] Work Phone: Start: 02-21-2024 End: 02-21-2024 Bamboo flowsheet Sonya Mejia GEOGRAPHY INSTRUCTOR Work Phone: [facility] Start: 02-21-2024 End: 02-21-2024 Bamboo flowsheet Sonya Mejia GEOGRAPHY INSTRUCTOR Work Phone: [facility] Start: 02-21-2024 End: 02-21-2024 Office outpatient visit 15 minutes Sonya Mejia NP Work Phone: [facility] Comment on above: Diabetic ketoacidosi s without coma associated with type 2 diabetes mellitus ([facility]) (Primary Dx); 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, with long-term current use of insulin, macular edema presence unspecified, unspecified laterality, unspecified proliferative retinop* ([facility]/HCC); Class 3 severe obesity due to excess calories without serious comorbidity with body mass index (BMI) of 40.0 to 44.9 in adult ([facility]); Colon cancer screening Start: 02-21-2024 End: 02-21-2024 ambulatory SONYA SHILOZ Not Available Start: 02-12-2024 End: 02-15-2024 Clinisync Result Encounter Shaikh Pasquale APODACA Work Phone: [facility] External Department Unsolicited Start: 02-12-2024 End: 02-15-2024 Clinisync Result Encounter Shaikh Pasquale APODACA Work Phone: [facility] External Department Unsolicited Start: 02-11-2024 End: 02-13-2024 Non-patient / Non-visit [facility] Work Phone: Start: 01-30-2024 End: 01-30-2024 Office outpatient visit 25 minutes Sonya Mejia GEOGRAPHY INSTRUCTOR Work Phone: [facility] Comment on above: Primary hypertension (CMS/[facility]) (Primary Dx); Mixed hyperlipidemia (CMS/HCC); Environmental and seasonal allergies; Gastroesophageal reflux disease, unspecified whether esophagitis present; Anxiety; Major depressive disorder with single episode, remission status unspecified (CMS/[facility]); Colon cancer screening; 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, with long-term current use of insulin, macular edema presence unspecified, unspecified laterality, unspecified proliferative retinop* (CMS/[facility]); Class 3 severe obesity due to excess calories without serious comorbidity with body mass index (BMI) of 40.0 to 44.9 in adult (CMS/HCC); Anxiety and depression (CMS/HCC) Start: 01-30-2024 End: 01-30-2024 ambulatory SONYA AICHHOLZ Not Available Start: 01-30-2024 End: 01-30-2024 Bamboo flowsheet Sonya Mejia GEOGRAPHY INSTRUCTOR Work Phone: [facility] Start: 01-30-2024 End: 01-30-2024 Bamboo flowsheet Sonya Mejia GEOGRAPHY INSTRUCTOR Work Phone: [facility] Start: 01-23-2024 End: 01-24-2024 Telephone encounter Sonya Joaquinclyde GEOGRAPHY INSTRUCTOR Work Phone: [facility] Start: 01-22-2024 End: 01-22-2024 Clinisync Result Encounter Sonya Joaquinclyde GEOGRAPHY INSTRUCTOR Work Phone: [facility] External Department Unsolicited Start: 01-22-2024 End: 01-22-2024 Clinisync Result Encounter Sonya Joaquinclyde GEOGRAPHY INSTRUCTOR Work Phone: [facility] External Department Unsolicited Start: 01-22-2024 End: 01-22-2024 ambulatory [facility] Work Phone: Start: 01-22-2024 End: 01-22-2024 Patient encounter procedure [facility] Work Phone: Start: 12-17-2023 End: 12-17-2023 ambulatory [facility] Work Phone: Start: 12-17-2023 End: 12-17-2023 Patient encounter procedure [facility] Work Phone: Start: 11-26-2023 End: 11-26-2023 ambulatory [facility] Work Phone: Start: 11-26-2023 End: 11-26-2023 Patient encounter procedure [facility] Work Phone: Start: 10-15-2023 End: 10-15-2023 ambulatory SONYA JACKIE Not Available Start: 10-11-2023 End: 10-11-2023 ambulatory Sonya Timothy Mejia Work Phone: [facility] Work Phone: Start: 10-11-2023 End: 10-11-2023 Patient encounter procedure Sonya Mejia Work Phone: [facility] Work Phone: Start: 08-21-2023 End: 08-21-2023 ambulatory Glenna Quinones Facility:[facility] Start: 08-21-2023 End: 08-21-2023 ambulatory Services [facility] Work Phone: [facility] Work Phone: Start: 08-21-2023 End: 08-21-2023 Patient encounter procedure Services [facility] Work Phone: [facility] Work Phone: Start: 08-21-2023 End: 08-21-2023 ambulatory Services [facility] Work Phone: [facility] Work Phone: Start: 08-21-2023 End: 08-21-2023 Patient encounter procedure Services [facility] Work Phone: [facility] Work Phone: Start: 08-07-2023 End: 08-07-2023 ambulatory ANNALYSE OWENS Facility:[facility] Start: 08-07-2023 End: 08-07-2023 Patient encounter procedure Jason Acevedo MD Work Phone: Ophthalmology Comment on above: Type 2 diabetes marti itus with both eyes affected 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, unspecified whether joint terminal attack controller insulin use (HCC) (Primary Dx); 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, bilateral; Nuclear sclerotic cataract, bilateral Start: 06-26-2023 End: 06-26-2023 Patient encounter procedure Services [facility] Work Phone: [facility] Work Phone: Start: 06-07-2023 End: 06-07-2023 ambulatory SONYA JACKIE Not Available Start: 06-07-2023 Bamboo flowsheet Sonya Mejia GEOGRAPHY INSTRUCTOR Work Phone: [facility] Start: 06-07-2023 Bamboo flowsheet Sonya Mjeia GEOGRAPHY INSTRUCTOR Work Phone: [facility] Start: 06-07-2023 End: 06-07-2023 Patient encounter procedure Sonya Mejia NP Work Phone: [facility] Comment on above: Encounter for subseq uent [...] in adult (CMS/HCC); Anxiety and depression (CMS/HCC); 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 Work Phone: Start: 05-28-2023 End: 05-28-2023 Discharged Recurring Services [facility] Work Phone: [facility] Work Phone: Start: 05-24-2023 Refill Sonya Mejia NP Work Phone: [facility] Comment on above: Mixed hyperlipidemia (CMS/HCC) (Primary Dx) Start: 02-19-2023 (DM) Diabetes Glenna Quinones [facility] Start: 02-19-2023 End: 02-19-2023 ambulatory Glenna Quinones Other [facility] Other Start: 02-05-2023 End: 02-05-2023 ambulatory Glenna Quinones Other [employer] Other Start: 02-05-2023 Telephone encounter Glenna manzano [facility] Start: 01-31-2023 End: 01-31-2023 ambulatory GLENDY MONREAL Facility:[facility] Start: 01-16-2023 End: 01-16-2023 ambulatory Glenna Quinones Other [employer] Other Start: 01-16-2023 Nursing evaluation o f patient and report Glenna Quinones [facility] Start: 12-14-2022 End: 12-14-2022 ambulatory Glenna Quinones Other [employer] Other Start: 12-14-2022 Telephone encounter Glenna manzano [facility] Start: 12-11-2022 End: 12-11-2022 ambulatory Glenna Quinones Other [employer] Other Start: 12-11-2022 Telephone encounter Glenna wallaces [facility] Start: 12-06-2022 End: 12-06-2022 ambulatory Mark Gramajo Facility:[facility] Start: 12-06-2022 End: 12-06-2022 ambulatory [facility] Work Phone: [facility] Work Phone: Start: 12-06-2022 End: 12-06-2022 Patient encounter procedure [facility] Work Phone: [facility] Work Phone: Start: 12-04-2022 End: 12-04-2022 ambulatory Mark Gramajo Facility:[facility] Start: 12-04-2022 End: 12-04-2022 Patient encounter procedure [facility] Work Phone: [facility] Work Phone: Start: 11-21-2022 (DM) Diabetes Glenna Joni [facility] Start: 11-21-2022 End: 11-21-2022 ambulatory Glenna Sterlingly Other [employer] Other Start: 11-21-2022 Registered Recurring Services [facility] Work Phone: [facility] Work Phone: Start: 11-20-2022 End: 11-20-2022 ambulatory Mark Gramajo Other [employer] Other Start: 11-20-2022 Office outpatient ne w 30 minutes Mark Gramajo [facility] Start: 10-27-2022 End: 10-27-2022 ambulatory Glennajeff Quinones Other [employer] Other Start: 10-27-2022 Telephone encounter Glenna manzano [facility] Start: 10-17-2022 End: 10-17-2022 ambulatory Glenna Sterlingly Other [employer] Other Start: 10-17-2022 Nursing evaluation o f patient and report Glenna Denis [facility] Start: 10-10-2022 End: 10-10-2022 ambulatory Glenna Sterlingly Other [employer] Other Start: 10-10-2022 Telephone encounter Glennajeff Quinones Sheila manz[facility] Start: 09-08-2022 ambulatory REGULATORY SUBMISSIONS SPECIALIST SONYA MEJIA Facil ity:[facility] Start: 08-30-2022 (DM) Diabetes Glenna Sterlingly [facility] Start: 08-30-2022 End: 08-30-2022 ambulatory Glenna Sterlingly Other [employer] Other Start: 08-11-2022 End: 08-12-2022 ambulatory DENISE MEJIA Facility:[facility] Start: 08-07-2022 End: 08-07-2022 ambulatory KAYA PATEL Facility:[facility] Start: 08-04-2022 End: 08-05-2022 ambulatory DENISE MEJIA Facility:[facility] Start: 07-19-2022 Registered Recurring Sonya tang Work Phone: [facility] Work Phone: Start: 07-19-2022 Nursing evaluation o f patient and report Glenna Quinones [facility] Start: 07-19-2022 End: 07-19-2022 ambulatory Sonya Mejia Work Phone: [facility] Work Phone: Start: 07-19-2022 End: 07-19-2022 Patient encounter procedure Sonya Mejia Work Phone: [facility] Work Phone: Start: 07-11-2022 End: 07-11-2022 ambulatory Glenna Sterlingjayden Other [employer] Other Start: 07-11-2022 Telephone encounter Glennajeff Quinones [facility] Start: 06-16-2022 End: 06-16-2022 ambulatory Glenna Sterlingly Other [employer] Other Start: 06-16-2022 Telephone encounter Glennajeff Quinones [facility] Start: 06-09-2022 End: 06-09-2022 ambulatory Glenna Sterlingly Other [employer] Other Start: 06-09-2022 Telephone encounter Glenna Quinones [facility] Start: 04-26-2022 End: 04-26-2022 ambulatory Glenna Sterlingly Other [employer] Other Start: 04-26-2022 Nursing evaluation o f patient and report Glenna Denis [facility] Start: 03-14-2022 End: 03-14-2022 ambulatory Glenna Scally Other [employer] Other Start: 03-14-2022 Nursing evaluation o f patient and report Glenna Denis [facility] Start: 02-16-2022 (DM) Diabetes Glenna Joni [facility] Start: 02-16-2022 End: 02-16-2022 ambulatory Glenna Scally Other [employer] Other Start: 01-31-2022 End: 01-31-2022 Patient encounter procedure Glendy Monreal PA-C Work Phone: Ophthalmology Comment on above: Type 2 diabetes marti itus with both eyes affected 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, unspecified whether joint terminal attack controller insulin use (HCC) (Primary Dx); Nuclear sclerotic cataract, bilateral; 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, bilateral Start: 01-26-2022 End: 01-26-2022 ambulatory Glennajeff Quinones Other [employer] Other Start: 01-26-2022 Nursing evaluation o f patient and report Glenna Denis [facility] Start: 09-27-2021 (DM) Diabetes Glenna Joni [facility] Start: 09-27-2021 End: 09-27-2021 ambulatory Glenna Sterlingly Other [employer] Other Start: 08-26-2021 End: 08-26-2021 ambulatory Glenna Scally Other [employer] Other Start: 08-26-2021 Telephone encounter Glennadanish wallaces [facility] Start: 08-25-2021 End: 08-25-2021 ambulatory Glenna Scally Other [employer] Other Start: 08-25-2021 Telephone encounter Glennajeff manzano [facility] Start: 08-17-2021 End: 08-17-2021 ambulatory Glenna Scally Other [employer] Other Start: 08-17-2021 Nursing evaluation o f patient and report Glenna Sterlingly [place] [facility] Start: 08-03-2021 End: 08-03-2021 ambulatory Glenna Scally Other [employer] Other Start: 08-03-2021 Telephone encounter Glenna Joni wall[facility] Start: 08-02-2021 (DM) Diabetes Glenna Scally [facility] Start: 08-02-2021 End: 08-02-2021 ambulatory Glenna Scally Other [employer] Other Start: 08-01-2021 End: 08-01-2021 ambulatory Glenna Scally Other [employer] Other Start: 08-01-2021 Telephone encounter Glennajeff Quinones [facility] Start: 07-18-2021 End: 07-18-2021 ambulatory Glenna Scally Other [employer] Other Start: 07-18-2021 Telephone encounter Glenna Joni manzano [facility] Start: 07-05-2021 (DM) Diabetes Glenna Scally [facility] Start: 07-05-2021 End: 07-05-2021 ambulatory Glenna Scally Other [employer] Other Start: 07-05-2021 Telephone encounter Glenna Scally [place] [facility] Start: 06-07-2021 End: 06-07-2021 ambulatory Glenna Scally Other [employer] Other Start: 06-07-2021 Telephone encounter Glenna Scally [place] [facility] Start: 06-06-2021 End: 06-06-2021 ambulatory Glenna Scally Other [employer] Other Start: 06-06-2021 Telephone encounter Glenna Scally [facility] Start: 05-19-2021 End: 05-19-2021 ambulatory Glenna Scally Other [employer] Other Start: 05-19-2021 Telephone encounter Glnena Scally [facility] Start: 05-10-2021 End: 05-10-2021 ambulatory Glenna Scally Other [employer] Other Start: 05-10-2021 Telephone encounter Glenna Scally [facility] Start: 04-27-2021 End: 04-27-2021 ambulatory Glenna Scally Other [employer] Other Start: 04-27-2021 Telephone encounter Glenna Scally [facility] Start: 04-12-2021 End: 04-12-2021 ambulatory Glenna Scally Other [employer] Other Start: 04-12-2021 Telephone encounter Glenna Scally [facility] Start: 04-11-2021 (DM) Diabetes Glenna Scally [facility] Start: 04-11-2021 End: 04-11-2021 ambulatory Glenna Scally Other [employer] Other Start: 03-14-2021 End: 03-14-2021 ambulatory Glenna Quinones Other [employer] Other Start: 03-14-2021 Telephone encounter Glenna manzano [facility] Start: 09-06-2020 End: 09-06-2020 Patient encounter procedure Services [facility] Work Phone: [facility] Start: 08-26-2020 Registered Recurring Services [employer] Work Phone: [facility] Start: 11-02-2019 Blood glucose normal Sonya tang Work Phone: [facility] Procedures Date Procedure Procedure Detail Performing Clinician Start: 06-03-2024 Computerized ophthalmic imaging retina Jason Acevedo MD Work Phone: Start: 02-12-2024 Bacteria identified in Urine by Culture Shaikh Pasquale APODACA Work Phone: Start: 01-22-2024 ALL CBC WITH AUTO DIFF Sonya Mejia GEOGRAPHY INSTRUCTOR Work Phone: Start: 01-22-2024 TB MICROALB CREAT RATIO RANDOM Sonya Jackie GEOGRAPHY INSTRUCTOR Work Phone: Start: 01-22-2024 TB UA (CLEAN/CATCH) MICROSCOPIC IF INDICATE Sonya Mejia GEOGRAPHY INSTRUCTOR Work Phone: Start: 08-07-2023 Computerized ophthalmic imaging retina Jason Acevedo MD Work Phone: Start: 08-06-2023 Mammography Sonya Jackie GEOGRAPHY INSTRUCTOR Work Phone: Start: 12-06-2022 Ultrasound elastography of liver Services [facility] Work Phone: Start: 12-04-2022 Ultrasonography of liver Services [facility] Work Phone: Start: 08-04-2022 Mammography Sonya Jackie GEOGRAPHY INSTRUCTOR Work Phone: Start: 01-31-2022 End: 01-31-2022 Computerized ophthalmic imaging retina Glendy Monreal PA-C Work Phone: Start: 09-06-2020 Screening mammography of bilateral breasts Services [facility] Work Phone: Start: 12-12-2019 Microscopic observation [Identifier] in Cervix by Cyto stain Sonya Mejia NP Work Phone: Start: 03-19-2018 History of laser assisted in situ keratomileusis S/P LASIK (laser assisted in situ keratomileusis) Glendy Monreal PA-C Work Phone: Start: 04-30-2017 End: 10-15-2023 H/O: hysterectomy History of hysterectomy for cancer Sonya Mejia NP Work Phone: Start: 12-11-2016 Microscopic observation [Identifier] in Cervix by Cyto stain Sonya Mejia NP Work Phone: Extraction of wisdom tooth M ichhoracio CAROLINAL Laparoscopy Donell RAMILA Surgical procedure o n eye proper using laser Donell MCGRATH Tonsillectomy Donell CAROLINAL Total abdominal hysterectomy with bilateral salpingo-oophorectomy Donell CAROLINAL Plan of Treatment Date Care Activity Detail Author Start: 08-05-2033 Urine microalbumin profile DTaP,Tdap,Td Vaccine (2 - Td or Tdap) [facility] Start: 06-18-2025 End: 11-25-2025 OCT ANGIOGRAPHY OU (BOTH EYES) OCT ANGIOGRAPHY OU (BOTH EYES) [facility] Imaging Routine 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, bilateral Nuclear sclerotic cataract, bilateral 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, unspecified whether joint terminal attack controller insulin use (HCC) Expected: 06/18/2025, Expires: 11/25/2025 [facility] Comment on above: Expected: 06/18/2025 , Expires: 11/25/2025 Start: 06-18-2025 End: 11-25-2025 OCT MACULA CIRRUS OU (BOTH EYES) OCT MACULA CIRRUS OU (BOTH EYES) [facility] Imaging Routine 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, bilateral Nuclear sclerotic cataract, bilateral 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 Start: 12-11-2024 PAP TESTING PAP TESTING [facility] Start: 12-11-2024 Screening for malign ant neoplasm of cervix Pap Testing [facility] Start: 12-01-2024 End: 12-01-2024 Patient encounter procedure 12/01/2024 12:45 PM EDT Office Visit [facility] Ophthalmology [address] [address] Glendy Monreal PA-C [address] [id number] JANELLE Travis in 6 months Ophthalmology Comment on above: JANELLE Travis in 6 months Start: 08-21-2024 End: 01-28-2025 OCT MACULA CIRRUS OU (BOTH EYES) OCT MACULA CIRRUS OU (BOTH EYES) [facility] Imaging Routine 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, bilateral Nuclear sclerotic cataract, bilateral 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 ([facility]); Morbid (severe) obesity due to excess calories ([facility]); Body mass index (BMI) 40.0-44.9, adult ([facility]); Gastroesophageal reflux disease, unspecified whether esophagitis present; Adenocarcinoma of endometrium, stage 1 ([facility]); Class 3 severe obesity due to excess calories without serious comorbidity with body mass index (BMI) of 40.0 to 44.9 in adult ([facility]); 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, with long-term current use of insulin, macular edema presence unspecified, unspecified laterality, unspecified proliferative retinop* ([facility]); Anxiety and depression ([facility]) Start: 02-28-2024 Urine screening for protein Diabetes: Urine Protein Screening [facility] Start: 02-26-2024 Hemoglobin A1c measurement Diabetes: Hemoglobin A1C [facility] Start: 02-21-2024 End: 02-21-2024 Patient encounter procedure [facility] Comment on above: Arrived Start: 01-30-2024 End: 01-30-2024 Patient encounter procedure [facility] Comment on above: Arrived Start: 12-23-2023 Covid-19 Vaccine () Covid-19 Vaccine () [facility] Start: 12-23-2023 Influenza vaccination Influenza Vacc ine (#1) [facility] Start: 12-01-2023 Glaucoma screening Diabetes: R etinopathy Screening [facility] Start: 10-15-2023 End: 10-15-2023 Patient encounter procedure 10/15/2023 6:00 PM EDT Office Visit [facility] [address] [place] [address] Sonya Mejia NP [address] [place] [address] [facility] Start: 08-26-2023 Hemoglobin A1c measurement Diabetes: Hemoglobin A1C [facility] Start: 08-06-2023 End: 08-05-2024 MG Breast - bilateral Screening Bilateral screening mammogram Imaging Routine Encounter for screening mammogram for malignant neoplasm of breast Expected: 08/06/2023 (Approximate), Expires: 08/05/2024 [facility] Work Phone: Comment on above: Expected: 08/06/2023 (Approximate), Expires: 08/05/2024 Start: 08-05-2023 Screening for malign ant neoplasm of breast Mammogram 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 Start: 12-06-2022 [facility] Start: 2022 Screening for malign ant neoplasm of colon [facility] Start: 12-12-2021 COVID-19 VACCINE (4 - Booster for Blayne series) COVID-19 VACCINE (4 - Booster for Blayne series) [facility] Start: 04-23-2021 DEPRESSION ASSESSMENT DEPRESSION ASS ESSMENT [facility] Start: 12-12-2019 Screening for malign ant neoplasm of cervix [facility] Start: 08-24-2019 Hepatitis B screening URINE ALBUMIN:CREATININE RATIO [facility] Start: 2017 Mammography MAMMOGRAM [facility] Start: 2017 Screening for malign ant neoplasm of breast Mammogram Screening [facility] Start: 2007 HPV TESTING HPV TESTING [facility] Start: 2007 Screening for malign ant neoplasm of cervix [facility] Start: 1996 Hepatitis B Vaccine (1 of 3 - 19+ 3-dose series) Hepatitis B Vaccine (1 of 3 - 19+ 3-dose series) [facility] Start: 1996 Pneumococcal vaccination Pneum ococcal Vaccine (1 of 2 - PCV) [facility] Start: 1996 Urine microalbumin profile DTAP,TDAP,TD (1 - Tdap) [facility] Start: 1996 Urine screening for protein Diabetes: Urine Protein Screening [facility] Start: 1995 ANNUAL PCP TEAM INTERLINE CLERK ADRIENNE DISEASE VISIT ANNUAL PCP TEAM CHRONIC DISEASE VISIT [facility] Start: 1995 Anxiety Screening Anxiety Screening [facility] Start: 1995 BP CONTROLLED (<130/80) BP CON TROLLED (<130/80) [facility] Start: 1995 Depression Screening Depression Scre ening [facility] Start: 1995 Hepatitis B surface antibody level LDL CHOLESTEROL [facility] Start: 1995 HEPATITIS C SCREENING HEPATITIS C [facility] Start: 1995 Hepatitis C screening Hepatitis C [facility] Start: 1995 HIV SCREENING HIV SCREENING [facility] Start: 1995 HIV screening HIV Screening [facility] Start: 1987 3 comp foot exam completed DIABETIC FOOT EXAM [facility] Start: 1987 Diabetic foot examination Diabetic Foot Exam [facility] Start: 1987 Glaucoma screening Diabetes: R etinopathy Screening [facility] Start: 1983 PNEUMOCOCCAL (1 - PCV) PNEUMOCOCCAL (1 - PCV) [facility] Start: 1983 Pneumococcal vaccination Pneum ococcal Vaccine (1 of 2 - PCV) [facility] Start: 1982 Hemoglobin A1c measurement HbA1C [facility] Start: 1982 Hemoglobin A1c/Hemoglobin.total in Blood HBA1C [facility] Start: 1977 Hemoglobin A1c measurement Diabetes: Hemoglobin A1C [facility] Start: 1977 HEPATITIS B (1 of 3 - 3-dose series) HEPATITIS B (1 of 3 - 3-dose series) [facility] Start: 1977 Medicare Annual Well ness (AWV) Medicare Annual Wellness (AWV) [facility] Start: 1977 Screening for malign ant neoplasm of colon [facility] Alpha 1 antitrypsin [Mass/volume] in Serum or Plasma [facility] Alpha 1 antitrypsin phenotyping [Identifier] in Serum or Plasma by Immunofixation [facility] Bacteria identified in Urine by Culture URINE CULTURE, ROUTINE Lab Routine 02/12/2024 5:00 PM EDT [facility] Work Phone: Comprehensive metabo lic 2000 panel - Serum or Plasma [facility] Elastase.pancreatic [Mass/mass] in Stool [facility] Hepatitis C virus Ig G Ab [Presence] in Serum or Plasma by Immunoassay [facility] Insulin C-peptide measurement [facility] Noninvasive colorect al cancer DNA and occult blood screening [Presence] in Stool Cologuard colon cancer screening Lab Routine Colon cancer screening Ordered: 06/07/2023 [facility] Comment on above: Ordered: 06/07/2023 [facility] Immunizations Immunization Date Immunization Notes Care Provider Erika ricketts 01-30-2024 influenza, seasonal, injectable, preservative free Shaikh Pasquale APODACA Work Phone: [facility] 08-06-2023 tetanus toxoid, redu phoenix diphtheria toxoid, and acellular pertussis vaccine, adsorbed Sonya Mejia GEOGRAPHY INSTRUCTOR Work Phone: [facility] 02-08-2023 influenza, injectabl e, quadrivalent, preservative free Sonya Mejia NP Work Phone: [facility] 02-08-2023 influenza virus vaccine, unspecified formulation Sonya Jackie GEOGRAPHY INSTRUCTOR Work Phone: [facility] 02-25-2022 SARS-CoV-2 (COVID-19 ) [id number] Donell GEL [facility] 01-11-2022 influenza, injectabl e, quadrivalent, preservative free Sonya Jackie GEOGRAPHY INSTRUCTOR Work Phone: [facility] 10-17-2021 SARS-CoV-2 mRNA (ylsfnkxzlic-hoeg-lmfsx se) vaccine Donell NILL [facility] 04-06-2021 SARS-CoV-2 (COVID-19 ) mRNA BNT-162b2 vax Donell GEL [facility] Comment on above: Result Comment: 2024: [id number] 01-15-2021 influenza, injectabl e, quadrivalent, preservative free Sonya Shiloz GEOGRAPHY INSTRUCTOR Work Phone: [facility] 07-02-2020 COVID-19 Vaccine Blayne - Documentation Purposes Only Glenna Quinones Other [facility] 07-01-2020 SARS-CoV-2 (COVID-19 ) Ad26 vaccine, recombinant Donell GEL [facility] 12-26-2019 influenza, injectabl e, quadrivalent, preservative free Sonya Aichholz GEOGRAPHY INSTRUCTOR Work Phone: [facility] 01-08-2019 influenza, injectabl e, quadrivalent, preservative free Glendy Danikana PA-C Work Phone: [facility] 12-31-2017 influenza, injectabl e, quadrivalent, preservative free Glendy Baraona PA-C Work Phone: [facility] 12-19-2016 influenza, injectabl e, quadrivalent, preservative free Sonya Aichholz GEOGRAPHY INSTRUCTOR Work Phone: [facility] 12-19-2016 influenza, seasonal, injectable Glendy Monreal PA-C Work Phone: [facility] 12-11-2015 influenza, seasonal, injectable, preservative free Sonya Aichholz GEOGRAPHY INSTRUCTOR Work Phone: [facility] 11-26-2014 influenza, seasonal, injectable, preservative free Sonya Aichholz GEOGRAPHY INSTRUCTOR Work Phone: [facility] Healthcare Payers Date Payer Category Payer Medicaid [id number] 2019 Medicare [id number] 2019 Self-pay [id number] 1975 Unknown [id number] 2.16.84 [id number] 1977 Unknown [id number] 2.16.84 [id number] 1977 Unknown [id number] 2.16.84 [id number] 1977 Unknown [id number] 2.16.84 [id number] 1977 Unknown [id number] 2.16.84 [id number] 1977 Unknown [id number] 2.16.84 [id number] 1977 Unknown [id number] 2.16.84 [id number] 1977 Unknown [id number] 2.16.84 [id number] 1977 Unknown [id number] 2.16.84 [id number] 1977 Unknown [id number] 2.16.8 [id number] 1959 Medicaid [id number] 1957 Medicare [id number] 2.1 [id number] 1959 Self-pay [id number] 1959 Unknown [id number] Unknown [id number] Unknown [id number] [id number] Unknown [id number] 2.16.8 [id number] Unknown [id number] 2.16.8 [id number] Unknown [id number] 2.16.8 [id number] Social History Date Type Detail Facility Start: 05-15-2017 End: 11-02-2019 Tobacco smoking status ALIS Ex-smoker (finding) [facility] Start: 1975 Sex Assigned At Female F [facility] Start: 04-01-2023 End: 08-07-2023 Sex Assigned At [facility] Start: 04-23-2002 End: 04-23-2012 History of tobacco use Current smoker [facility] Start: 04-23-2002 End: 04-23-2012 History of tobacco use Cigarette Smoker [facility] Start: 05-15-2017 End: 01-30-2024 Tobacco use and exposure Smokeless tobacco non-user [facility] Start: 01-31-2022 End: 06-03-2024 Alcohol intake Current non-drinker of alcohol (finding) [facility] Start: 1975 Sex Assigned At Not on file C [facility] Start: 12-26-2021 End: 01-05-2022 Exposure to SARS-CoV-2 (event) Not sure [facility] Start: 04-02-2023 End: 08-07-2023 Cigarettes smoked current (pack per day) - Reported 0.5 [facility] Start: 04-02-2023 End: 02-21-2024 Alcohol intake Current drinker of alcohol (finding) [...] care, and heating Somewhat hard [facility] Start: 03-03-2024 End: 05-15-2024 Sex Female (finding) [facility] NEGATED: Highlighted rowStart: JOSY History of tobacco use Passive smoker [facility] Medical Equipment Procedure Code Equipment Code Equipment Origin al Text Equipment Identifier Dates [id number], [id number] Start: 10-20-2019 Gas [employer] Intraocular [employer] System [id number] 125gm - [id number] Start: 08-09-2016 Gas [employer] Intra[employer] System [id number] 125gm - [id number] Start: 10-10-2017 Goals Date Patient Goal Desired Activity /State Functional Status Date Assessment Result Facility 05-27-2024 [facility] [place] Clinical Notes 08-02-2016 to 06-03-2024 Jason Acevedo MD - 06/03/2024 9:37 AM ESTLisa Mejia, GEOGRAPHY INSTRUCTOR - 05/01/2024 2:35 PM ESTLisa Jackie, GEOGRAPHY INSTRUCTOR - 05/01/2024 2:00 PM ESTLisa Jackie, GEOGRAPHY INSTRUCTOR - 05/01/2024 2:00 PM ESTPatient Instructions Note Date & Type Note Facility 06-03-2024 Note Date of Procedure 06/03/2024. OCT Macula Interpretation Right Eye Abnormal foveal contour. Findings include Epiretinal membrane; Negative for Intraretinal fluid, Subretinal fluid. Left Eye Abnormal foveal contour. Interval Change Right Eye Stable. Notes Poor view OS ZEISS 06-03-2024 History of Present illness Narrative The documentation for the note below was completed in part by Angela Jason acting as a scribe for Jason Acevedo MD. 06/03/2024 9:37 AM. Scribe Attestation: By signing my name below, I, Angela Jason, attest that the documentation in part for the note below and the encounter was completed in part by Angela Jason acting as a scribe for Jason Acevedo MD. Electronically Signed: Dannielle Lennon. June 03, 2024 9:37 AM. 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, significant PHT - s/p PRP OD - A1C around 7.5 in April of 2022, much improved from previous after starting ozempic - Educated pt on effect good BS/BP has on retina health - Informed pt above may require following with PCP/employment recruiter - DFE shows quiescence - Reviewed RTC precautions, need to visit or call should these arise - Continue to follow - RTC with JANELLE Travis in 6 months 2) [...] to limit view of posterior pole. - In the future, considering CE/IOL for best monitoring of retina OS I personally performed the services described in [...] relevant components. documented in this encounter [facility] 05-27-2024 Note General Surgery Offi ce/Clinic Note Chief Complaint consultation for colonoscopy HPI Staff 48 year old female presents on consultation from Sonya Mejia for screening colonoscopy. Denies abdominal or rectal pain. No rectal bleeding or change in bowel habits. Denies nausea or vomiting. No unexplained weight loss. Never had previous colonoscopy. No known family history of colon cancer. History of Present Illness 48 yo female with h/o DMII, htn, hyperlipidemia, GERD, endometrial cancer, ADHD, anxiety/depression, referred for colorectal screening; patient denies change in bms or blood in stools, no abd complaints; abd operations significant for hysterectomy and laparoscopy; no previous colonoscopy; no asa or NSAID use; no tobacco use; no fmhx of GI malignancy or IBD. Review of Systems PHQ Score Initial Depression Screen Score: 0 SCORE ROS - Provider Constitutional: no fever, no sweats, no weight loss. Eyes: yes glasses, no blurred vision, no visual loss. ENMT: no dentures, no hoarseness, no swallowing difficulties, no hearing loss, no ear infection(s), no nose bleeds. Cardiovascular: normal blood pressure, no chest pain, regular heartbeat, no heart murmur. Respiratory: no shortness of breath, no cough, no asthma, no wheezing. Gastrointestinal: no nausea, no vomiting, no diarrhea, no constipation, no blood in stool, no change in bowel habits, no abdominal pain, no hepatitis. Genitourinary: no kidney stones, no urine infection, no dysuria. Musculoskeletal: no pain, no weakness. Skin: no changing moles, no rash, no skin lumps. Neurologic: no seizures, no epilepsy, no headache. Psychiatric: no emotional or psychiatric problem. Heme/Lymph: no bleeding problems, no anemia, no blood clots, no transfusions. Allergy/Immunologic: no swollen lymph nodes/glands, no IV drug abuse. Other: Additional ROS info: Except as noted in the above Review of Systems and in the History of Present Illness, all other systems have been reviewed and are negative or noncontributory. Physical Exam Vitals & Measurements HR: 72(Peripheral) RR: 16 BP: 126/88 HT: 66 in HT: 167.6 cm WT: 121.1 kg WT: 266.979 lb BMI: 43.11 HEENT: normal conjunctiva, sclera clear, no scleral icterus, EOM intact, PERRLA, oral mucosa moist without lesions. Neck: trachea midline, no mass, symmetric, no thyromegaly or nodules, no adenopathy Respiratory: lungs CTA, respirations non labored. Cardiovascular: regular rate and rhythm, no murmur, no pedal edema or varicosities. Gastrointestinal: obese,soft, non distended, no tenderness, no masses, no palpable hernias, diastasis recti no, no hepatosplenomegaly; normal bs Lymphatic: no cervical adenopathy, no supraclavicular adenopathy. Musculoskeletal: normal gait, digits and nails without infection, nodes, cyanosis, clubbing. Skin: no rashes, no lesions, no ulcers, no subcutaneous nodules, induration. Psychiatric/Neuro: oriented to time, place, person, judgement normal, affect appropriate for age, insight intact, no focal deficits. Tests: review of old records completed , Discussed surgical options, risks, and possible complications with patient. Assessment/Plan 1. Screening for malignant neoplasm of colon (Z12.11: Encounter for screening for malignant neoplasm of colon) plan colonoscopy under anesthesia, informed consent obtained. Follow-up No qualifying data available Problem List/Past Medical History Ongoing Adenocarcinoma of endometrium Attention deficit hyperactivity disorder Bilateral proliferative retinopathy due to diabetes mellitus type 2 BMI 40.0-44.9, adult Class 3 obesity Diabetes mellitus Drug abuse in remission. Dyslipidemia Essential hypertension Gastroesophageal reflux disease Learning disability Mixed anxiety and depressive disorder Screening for malignant neoplasm of colon Steatosis of liver Historical No qualifying data Procedure/Surgical History Extraction of wisdom tooth, Laparoscopy, Laser eye surgery, STEVEN BSO - Total abdominal hysterectomy and bilateral salpingo-oophorectomy, Tonsillectomy. Medications amLODIPine 10 mg Tab, 10 mg= 1 tab(s), Oral, Daily Basaglar KwikPen, 30 unit(s), SubCutaneous, Daily Fiasp 100 units/mL injectable solution, as directed Lac-Hydrin 12% topical lotion, 1 marcio, Topical, BID Lipitor 80 mg Tab, 80 mg= 1 tab(s), Oral, Daily lisinopril 40 mg Tab, 40 mg= 1 tab(s), Oral, Daily loratadine 10 mg Tab, 10 mg= 1 tab(s), Oral, Daily metformin 1000 mg Tab, 1000 mg= 1 tab(s), Oral, BID Mounjaro 10 mg/0.5 mL subcutaneous solution, 10 mg, SubCutaneous, qWeek Multi Vitamins oral tablet, 1 tab(s), Oral, Daily omeprazole 40 mg Cap-DR, 40 mg= 1 cap(s), Oral, Daily Zoloft 50 mg Tab, 50 mg= 1 tab(s), Oral, Daily Allergies dulaglutide (Vomiting) Social History Alcohol Never., 05/24/2024 Substance Abuse Current, Marijuana, 1-2 times per week, 05/27/2024 Past. Heroin, Prescription medications. Several times per day. Previous jamie (more content not included)... [facility] Comment on above: Result Comment: Elec tronically Signed By: RAMILA APODACA, Donell Lewis\Date and Time Signed: 05/27/24 14:40 EST 05-01-2024 History of Present illness Narrative Associated Problem(s): Colon cancer screening Colon cancer screening options were discussed with patient, as well as why colon cancer screening is indicated. Options are Colonoscopy: direct visualization, every 10 years (unless indicated more frequently), risks and benefits were discussed Cologuard: every 3 years, risks and benefits were discussed , contraindications were discussed (family hx of colon cancer, colon polyps) Patient has elected to: we do colonscopy Associated Problem(s): Morbid (severe) obesity due to excess calories (CMS/HCC) >>ASSESSMENT AND PLAN FOR CLASS 3 SEVERE OBESITY DUE TO EXCESS CALORIES WITHOUT SERIOUS COMORBIDITY WITH BODY MASS INDEX (BMI) OF 40.0 TO 44.9 IN ADULT (CMS/HCC) WRITTEN ON 05/01/2024 6:57 AM BY SONYA MEJIA NP Discussed with patient their BMI (actual, verses recommended). We have also discussed lifestyle modifications: attempts to perform physical activity as chronic conditions allow, also to monitor dietary intake: increasing protein/fruits/veggies and lowering carb intake (unless contraindicated). Limit sodas, juices, and sugary drinks. Does take mounjaro for her diabetes Images from the original note were not included. Tasha Paul is a 48 y.o. female presents with chief complaint of Diabetes HPI: Diabetes She presents for her follow-up diabetic visit. She has type 2 diabetes mellitus. Her disease course has been stable. Hypoglycemia symptoms include nervousness/anxiousness. Pertinent negatives for hypoglycemia include no dizziness, headaches, seizures or tremors. Pertinent negatives for diabetes include no blurred vision, no chest pain, no foot paresthesias, no polydipsia, no polyphagia and no polyuria. There are no hypoglycemic complications. Symptoms are improving. Diabetic complications include retinopathy. Pertinent negatives for diabetic complications include no heart disease or peripheral neuropathy. Risk factors for coronary artery disease include diabetes mellitus, dyslipidemia, hypertension, obesity and sedentary lifestyle. Current diabetic treatment includes oral agent (monotherapy) (insulin, GLP 1). She is compliant with treatment all of the time. Her weight is decreasing steadily. She rarely participates in exercise. Her overall blood glucose range is 140-180 mg/dl. An YESSY inhibitor/angiotensin II receptor yenni is being taken. Eye exam is current. Hypertension This is a chronic problem. The current episode started more than 1 year ago. The problem is unchanged. The problem is controlled. Associated symptoms include anxiety. Pertinent negatives include no blurred vision, chest pain, headaches, neck pain, orthopnea, palpitations, peripheral edema or shortness of breath. There are no associated agents to hypertension. Risk factors for coronary artery disease include diabetes mellitus, dyslipidemia, obesity and sedentary lifestyle. Past treatments include calcium channel blockers and YESSY inhibitors. The current treatment provides moderate improvement. There are no compliance problems. Hypertensive end-organ damage includes retinopathy. GERD She reports no abdominal pain, no chest pain, no coughing, no dysphagia, no early satiety, no heartburn, no nausea, no sore throat, no tooth decay, no water brash or no wheezing. This is a chronic problem. The current episode started more than 1 year ago. The problem occurs occasionally. The problem has been unchanged. The symptoms are aggravated by certain foods. Risk factors include obesity. She has tried a PPI for the symptoms. The treatment provided significant relief. Past procedures include an EGD. Depression Visit Type: follow-up Patient presents with the following symptoms: depressed mood, insomnia (at times) and nervousness/anxiety. Patient is not experiencing: anhedonia, excessive worry, fatigue, irritability, muscle tension, palpitations, panic, shortness of breath, suicidal ideas, suicidal planning and thoughts of . Frequency of symptoms: occasionally Severity: mild Compliance with medications: 76-100% Anxiety Presents for follow-up visit. Symptoms include depressed mood, insomnia (at times) and nervous/anxious behavior. Patient reports no chest pain, dizziness, excessive worry, irritability, muscle tension, nausea, palpitations, panic, shortness of breath or suicidal ideas. Symptoms occur most days. The severity of symptoms is moderate. Compliance with medications is 76-100%. SUBJECTIVE: MEDICATIONS: Current Outpatient Medications Medication Instructions amLODIPine (NORVASC) 10 mg, Daily ammonium lactate (Lac-Hydrin) 12 % lotion 1 application , Every 12 hours atorvastatin (LIPITOR) 80 mg, Oral, Every evening Basaglar KwikPen 30 Units, Subcutaneous, Daily PRN Fiasp 100 UNIT/ML solution inject as directed four times a day (EXPECT 100 UNITS PER DAY) Insulin Disposable Pump (V-Go 40) 40 UNIT/24HR kit 1 Pump, Daily insulin syringe-needle U-100 (B-D INS SYR HALF-UNIT .3CC/31G) 31G X 5/16 0.3 mL misc 1 each, 4 times daily PRN Lancets Micro Thin 33G misc 1 Lancet, 4 times daily lisinopril 40 mg, Oral, Daily loratadine (CLARITIN) 10 mg, Oral, Daily, Take 10 mg by mouth 1 (one) time each day at the same time. metFORMIN (GLUCOPHAGE) 1,000 mg, Every 12 hours Mounjaro 10 mg, Every 7 days Multiple Vitamins-Minerals (ONE-A-DAY WOMENS PO) 1 tablet, Daily omeprazole (PRILOSEC) 40 mg, Oral, Daily before breakfast sertraline (ZOLOFT) 50 mg, Oral, Every morning ALLERGIES: Allergies Allergen Reactions Dulaglutide Other Reaction(s): vomiting REVIEW OF SYMPTOMS: Review of Systems Constitutional: Negative for appetite change, chills, fever and irritability. HENT: Negative for congestion, ear pain and sore throat. Eyes: Negative for blurred vision, pain, discharge, redness and visual disturbance. Respiratory: Negative for cough, shortness of breath and wheezing. Cardiovascular: Negative for chest pain, palpitations, orthopnea and leg swelling. Gastrointestinal: Negative for abdominal pain, blood in stool, constipation, diarrhea, dysphagia, heartburn, nausea and vomiting. Genitourinary: Negative for difficulty urinating, dysuria and frequency. Musculoskeletal: Negative for arthralgias, back pain, joint swelling, myalgias and neck pain. Skin: Negative for rash and wound. Neurological: Negative for dizziness, tremors, seizures, syncope and headaches. Psychiatric/Behavioral: Positive for depression. Negative for behavioral problems, self-injury and suicidal ideas. The patient is nervous/anxious and has insomnia (at times). Hematological: Does not bruise/bleed easily. Endocrine: Negative for polydipsia, polyphagia and polyuria. Allergic/Immunologic: Negative for environmental allergies and food allergies. PAST MEDICAL HISTORY Past Medical History: Diagnosis Date Adenocarcinoma of endometrium, stage 1 ([facility] 04/30/2017 Total Hysterectomy Anxiety and depression ([facility]) 06/07/2023 Class 3 severe obesity due to excess calories without serious comorbidity with body mass index (BMI) of 40.0 to 44.9 in adult ([facility]) 04/02/2023 Diverticulitis of intestine without perforation or abscess without bleeding, unspecified part of intestinal tract 06/07/2023 Fatty liver History of hysterectomy for cancer 04/30/2017 HLD (hyperlipidemia) ([facility]) 05/24/2023 Learning disabilities 06/07/2023 Narcotic abuse in remission ([facility]) 06/07/2023 Partial blindness 06/07/2023 Type 2 diabetes mellitus with diabetic retinopathy ([facility]) 06/07/2023 without macular edema, unspecified retinopathy severity Type 2 diabetes mellitus, with long-term current use of insulin ([facility]) 04/02/2023 Past Surgical History: Procedure Laterality Date [...] father, and mother. OBJECTIVE: Visit Vitals BP 136/88 (BP Location: Left arm, Patient Position: Sitting, BP Cuff Size: Large adult) Pulse (!) 113 Temp 98.1 F (Temporal) Resp 20 Ht 5' 6 Wt 259 lb 3.2 oz SpO2 96% BMI 41.84 kg/m Smoking Status Former BSA 2.34 m Physical Exam Vitals and nursing note [...] Items Addressed This Visit Major depressive disorder ([facility]) Relevant Medications sertraline (Zoloft) 50 MG tablet 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 disease) Recommendations: freq small meals, nothing to eat or drink at least 2 hours prior to bed, limit caffeine, alcohol, as well as spicy foods Meds to limit or avoid if possible: NSAIDS Elevate HOB if possible Recommend weight loss Med: omeprazole Relevant Medications omeprazole (PriLOSEC) [address] capsule Hypertension ([facility]) - Primary Please check blood pressure daily and record DASH diet Limit caffeine Take medication as directed Contact office if chest pain, pressure, dizziness, shortness of breath, swelling legs Recommend slow position changes Current meds: amlodipine, yessy Relevant Medications lisinopril 40 MG tablet Type 2 diabetes mellitus, with long-term current use of insulin ([facility]) Check blood sugars daily, notify if [...] diet low in carbohydrates, and simple sugars. Meds: insulin, yessy, metformin, mounjaro, statin Continues to follow with diabetic provider HLD (hyperlipidemia) ([facility]) Relevant Medications atorvastatin (Lipitor) 80 MG tablet Adenocarcinoma of endometrium, stage 1 ([facility]) Had total hysterectomy 04/2017 Follow with TRAIN ELECTRONIC TECHNICIAN: no, have been released with no follow up from TRAIN ELECTRONIC TECHNICIAN No vag bleeding, no pelvic pain Anxiety and depression ([facility]) Continue current meds Colon cancer screening Colon cancer screening options were discussed with patient, as well as why colon cancer screening is indicated. Options are Colonoscopy: direct visualization, every 10 years (unless indicated more frequently), risks and benefits were discussed Cologuard: every 3 years, risks and benefits were discussed , contraindications were discussed (family hx of colon cancer, colon polyps) Patient has elected to: we do colonscopy Relevant Orders Ambulatory referral to General Surgery Environmental and seasonal allergies Relevant Medications loratadine (Claritin) 10 MG tablet Type 2 diabetes mellitus with diabetic cataract ([facility]) Continue with eye exams as scheduled Type 2 diabetes mellitus 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 edema, unspecified eye ([facility]) Continue w eye doctor Body mass index (BMI) 40.0-44.9, adult ([facility]) Morbid (severe) obesity due to excess calories ([facility]) >>ASSESSMENT AND PLAN FOR CLASS 3 SEVERE OBESITY DUE TO EXCESS CALORIES WITHOUT SERIOUS COMORBIDITY WITH BODY MASS INDEX (BMI) OF 40.0 TO 44.9 IN ADULT ([facility]) WRITTEN ON 05/01/2024 6:57 AM BY SONYA MEJIA NP Discussed with patient their BMI (actual, verses recommended). We have also discussed lifestyle modifications: attempts to perform physical activity as chronic conditions allow, also to monitor dietary intake: increasing protein/fruits/veggies and lowering carb intake (unless contraindicated). Limit sodas, juices, and sugary drinks. Does take mounjaro for her diabetes [facility] (current) use of insulin ([facility]) Continues with diabetic provider Opioid abuse, in remission ([facility]) Other Visit Diagnoses Class 3 severe obesity due to excess calories without serious comorbidity with body mass index (BMI) of 40.0 to 44.9 in adult ([facility]) Anxiety Relevant Medications sertraline (Zoloft) 50 MG tablet Associated Problem(s): [facility] (current) use of insulin ([facility]) Continues with diabetic provider Associated Problem(s): Anxiety and depression ([facility]) Continue current meds Associated Problem(s): Type 2 diabetes mellitus, with long-term current use of insulin ([facility]) Check blood sugars daily, notify if [...] diet low in carbohydrates, and simple sugars. 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 We have also discussed lifestyle modifications: attempts to perform physical activity as chronic conditions allow, also to monitor dietary intake: increasing protein/fruits/veggies and lowering carb intake (unless contraindicated). Limit sodas, juices, and sugary drinks. Does take mounjaro for her diabetes Associated Problem(s): Adenocarcinoma of endometrium, stage 1 (CMS/HCC) Had total hysterectomy 04/2017 Follow with TRAIN ELECTRONIC TECHNICIAN: no, have been released with no follow up from TRAIN ELECTRONIC TECHNICIAN No vag bleeding, no pelvic pain Associated Problem(s): 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 disease) Recommendations: freq small meals, nothing to eat or drink at least 2 hours prior to bed, limit caffeine, alcohol, as well as spicy foods Meds to limit or avoid if possible: NSAIDS Elevate HOB if possible Recommend weight loss Med: omeprazole Associated Problem(s): Hypertension (CMS/HCC) Please check blood pressure daily and record DASH diet Limit caffeine Take medication as directed Contact office if chest pain, pressure, dizziness, shortness of breath, swelling legs Recommend slow position changes Current meds: amlodipine, yessy documented in this encounter [facility] 05-01-2024 Instructions Sonya Mejia NP - 05/01/2024 2:[address] Mcgrath general surgeon, for colonscopy, has offices in [place] and [place] I placed a referral, if no call in 2 weeks, call me to let me know documented in this encounter 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 Options are Colonoscopy: direct visualization, every 10 years (unless indicated more frequently), risks and benefits were discussed Cologuard: every 3 years, risks and benefits were discussed , contraindications were discussed (family hx of colon cancer, colon polyps) Patient has elected to: proceed with colonocopy * Sonya Mejia NP - 02/21/2024 11:36 AM EDTAssociated Problem(s): Diabetic ketoacidosis without coma associated with type 2 diabetes mellitus (CMS/HCC) Hospital FU Reviewed hospital notes, labs, etc Symptoms have resolved * Sonya Mejia NP - 02/21/2024 11:36 AM EDTAssociated Problem(s): Type 2 diabetes mellitus, with long-term current use of insulin (CMS/HCC) Check blood sugars daily, notify if <70 or >200. Take medications (pills or insulin) as directed. Monitor for s/s of hypoglycemia (sweaty, dizziness, nausea, vomiting, or shakiness). Watch for increase in thirst, urination, or appetite. Inspect feet frequently monitoring for open wounds , andalso recommend yearly eye exam. Pt should attempt to remain as physically active as chronic conditions allow, as well as trying to follow a diet low in carbohydrates, and simple sugars. Continue with diabetic provider * INA UNGER - 02/21/2024 11:00 AM EDT Pt had just checked her BS: 190 * Sonya Mejia NP - 02/21/2024 11:00 AM EDT Images from the original note were not included. Tasha Paul is a 48 y.o. female presents with chief complaint of No chief complaint on file. HPI: Hospital fu for DKA: Insulin was on back order for her insulin, so she went without See [facility] hospital note and HPI and course She now has her insulin and is taking it as directed, her blood sugars since hospital discharge have been for the most part less than 150. No freq thirst/urination No other complaints SUBJECTIVE: MEDICATIONS: Current Outpatient Medications Medication Instructions amLODIPine (NORVASC) 10 mg, Daily ammonium lactate (Lac-Hydrin) 12 % lotion 1 [...] REVIEW OF SYMPTOMS: Review of Systems Constitutional: Negative for appetite change, chills and fever. [...] dizziness, tremors, seizures, syncope and headaches. Psychiatric/Behavioral: Negative for behavioral problems, self-injury and suicidal ideas. The patient is nervous/anxious. Depression Hematological: Does not bruise/bleed easily. Endocrine: Negative for polydipsia, polyphagia and polyuria. Allergic/Immunologic: Negative for environmental allergies and food allergies. PAST MEDICAL HISTORY Past Medical History: Diagnosis Date Adenocarcinoma of endometrium, stage 1 ([facility]) 04/30/2017 Total Hysterectomy Anxiety and depression ([facility]) 06/07/2023 Class 3 severe obesity due to excess calories without serious comorbidity with body mass index (BMI) of 40.0 to 44.9 in adult ([facility]) 04/02/2023 Diverticulitis of intestine without perforation or abscess without bleeding, unspecified part of intestinal tract 06/07/2023 Fatty liver History of hysterectomy for cancer 04/30/2017 HLD (hyperlipidemia) ([facility]) 05/24/2023 Learning disabilities 06/07/2023 Narcotic abuse in remission ([facility]) 06/07/2023 Partial blindness 06/07/2023 Type 2 diabetes mellitus with diabetic retinopathy ([facility]) 06/07/2023 without macular edema, unspecified retinopathy severity Type 2 diabetes mellitus, with long-term current use of insulin ([facility]) 04/02/2023 Past Surgical History: Procedure Laterality Date [...] father, and mother. OBJECTIVE: Visit Vitals BP 138/86 (BP Location: Left arm, Patient Position: Sitting, BP Cuff Size: Large adult long) Pulse 107 Temp 98.7 F (Temporal) Wt 264 lb SpO2 95% BMI 42.61 kg/m Smoking Status Former BSA 2.36 m Physical Exam Vitals and nursing note [...] Normal range of motion and neck supple. Right lower leg: No edema. Left lower leg: No edema. Skin: General: Skin is warm and dry. [...] file. Problem List Items Addressed This Visit Type 2 diabetes mellitus, with long-term current use of insulin ([facility]) Check blood sugars daily, notify if <70 or >200. Take medications (pills or insulin) as directed. Monitor for s/s of hypoglycemia (sweaty, dizziness, nausea, vomiting, or shakiness). Watch for increase in thirst, urination, or appetite. Inspect feet frequently monitoring for open wounds , andalso recommend yearly eye exam. Pt should attempt to remain as physically active as chronic conditions allow, as well as trying to follow a diet low in carbohydrates, and simple sugars. Continue with diabetic provider Class 3 severe obesity due to excess calories without serious comorbidity with body mass index (BMI) of 40.0 to 44.9 in adult ([facility]) Colon cancer screening Colon cancer screening options were discussed with patient, as well as why colon cancer screening is indicated. Options are Colonoscopy: direct visualization, every 10 years (unless indicated more frequently), risks and benefits were discussed Cologuard: every 3 years, risks and benefits were discussed , contraindications were discussed (family hx of colon cancer, colon polyps) Patient has elected to: proceed with colonocopy Relevant Orders Ambulatory referral to General Surgery Diabetic ketoacidosis without coma associated with type 2 diabetes mellitus ([facility]) - Primary Hospital FU Reviewed hospital notes, labs, etc Symptoms have resolved [id number] History of Present illness Narrative* Sonya Mejia NP - 01/30/2024 3:28 PM EDTAssociated Problem(s): HLD (hyperlipidemia) ([facility]) Reviewed labs, trigs elevated likely secondary to her uncontrolled diabetes * Sonya Mejia NP - 01/30/2024 3:28 PM EDTAssociated Problem(s): Anxiety and depression ([facility]) Continue current meds * Sonya Mejia NP - 01/30/2024 3:27 PM EDTAssociated Problem(s): Type 2 diabetes mellitus, with long-term current use of insulin ([facility]) Check blood sugars daily, notify if <70 or >200. Take medications (pills or insulin) as directed. Monitor for s/s of hypoglycemia (sweaty, dizziness, nausea, vomiting, or shakiness). Watch for increase in thirst, urination, or appetite. Inspect feet frequently monitoring for open wounds , andalso recommend yearly eye exam. Pt should attempt to remain as physically active as chronic conditions allow, as well as trying to follow a diet low in carbohydrates, and simple sugars. Continue with diabetic provider Reviewed labs * Sonya Mejia NP - 01/30/2024 3:27 PM EDTAssociated Problem(s): Hypertension ([facility]) At goal no med dose change Reviewed labs * Sonya Mejia NP - 01/30/2024 3:26 PM EDTAssociated Problem(s): 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 disease) Cont PPI Recommend weight loss * Sonya Mejia NP - 01/30/2024 2:20 PM EDT Images from the original note were not [...] Diagnosis Date Adenocarcinoma of endometrium, stage 1 ([facility]) 04/30/2017 Total Hysterectomy Anxiety and depression ([facility]) 06/07/2023 Class 3 severe obesity due to excess calories without serious comorbidity with body mass index (BMI) of 40.0 to 44.9 in adult ([facility]) 04/02/2023 Diverticulitis of intestine without perforation or abscess without bleeding, unspecified part of intestinal tract 06/07/2023 Fatty liver History of hysterectomy for cancer 04/30/2017 HLD (hyperlipidemia) ([facility]) 05/24/2023 Learning disabilities 06/07/2023 Narcotic abuse in remission ([facility] 06/07/2023 Partial blindness 06/07/2023 Type 2 diabetes mellitus with diabetic retinopathy ([facility]) 06/07/2023 without macular edema, unspecified retinopathy severity Type 2 diabetes mellitus, with long-term current use of insulin ([facility]) 04/02/2023 Past Surgical History: Procedure Laterality Date EYE SURGERY 2000 Laser HYSTERECTOMY 04/30/2017 Total - Adenocarcinoma of Endometrium / Uterus, figo, Grade 1 OTHER SURGICAL HISTORY 02/26/2017 Out pt Laparoscopy TONSILLECTOMY 1996 WISDOM TOOTH EXTRACTION 1997 family history includes [...] Items Addressed This Visit Major depressive disorder (CMS/HCC) Relevant Medications sertraline (Zoloft) 50 MG tablet 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 disease) Cont PPI Recommend weight loss Relevant Medications omeprazole (PriLOSEC) [address] capsule Hypertension (CMS/HCC) - Primary At goal no med dose change Reviewed labs Relevant Medications lisinopril 40 MG tablet Type 2 diabetes mellitus, with long-term current use of insulin (CMS/HCC) Check blood sugars daily, notify if <70 or >200. Take medications (pills or insulin) as directed. Monitor for s/s of hypoglycemia (sweaty, dizziness, nausea, vomiting, or shakiness). Watch for increase in thirst, urination, or appetite. Inspect feet frequently monitoring for open wounds , andalso recommend yearly eye exam. Pt should attempt to remain as physically active as chronic conditions allow, as well as trying to follow a diet low in carbohydrates, and simple sugars. Continue with diabetic provider Reviewed labs Class 3 severe obesity due to excess calories without serious comorbidity with body mass index (BMI) of 40.0 to 44.9 in adult ([facility]) HLD (hyperlipidemia) ([facility]) Reviewed labs, trigs elevated likely secondary to her uncontrolled diabetes Relevant Medications atorvastatin (Lipitor) 80 MG tablet Anxiety and depression ([facility]) Continue current meds Colon cancer screening Relevant Orders Ambulatory referral to General Surgery Environmental and seasonal allergies Relevant Medications loratadine (Claritin) 10 MG tablet Other Visit Diagnoses Anxiety Relevant Medications sertraline (Zoloft) 50 MG tablet documented [facility]The [facility] [id number] Telephone encounter Note* Telephone Encounter - Sonya Mejia NP - 01/23/2024 8:04 PM EDT Please tell pt that her labs all look good, with exception of Vit d being slightly low, does she currently take a vit d supplement? If not I would like to start her on one. Let me know and then I cansend something in [place] [facility] [id number] Miscellaneous Notes* Telephone Encounter - Sonya Mejia NP - 01/23/2024 8:04 PM EDT Please tell pt that her labs all look good, with exception of Vit d being slightly low, does she currently take a vit d supplement? If not I would like to start her on one. Let me know and then I cansend something in [place] documented in this encounterThe [facility] 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 acute January 21 1:52pm Noncompliance with medicatio n regimen acute January 21 1:52pm Retinopathy of both eyes acute January 22, 2024 1:52pm Type 2 diabetes mellitus wit h hyperglycemia acute January 21 1:52pm Weight gain acute January 22, 2024 1:52pm ADHD acute March 03, 2024 12:56pm BMI 40.0-44.9, adult acute 2023 12:56pm Fatty liver acute February 12:56pm GERD (gastroesophageal reflu x disease) acute March 03 12:56pm HLD (hyperlipidemia) acute 2023 12:56pm [facility] current use of insulin acute March 03 12:56pm Noncompliance with medicatio n regimen acute March 03 12:56pm Retinopathy of both eyes acute March 03, 2024 12:56pm Type 2 diabetes mellitus wit h hyperglycemia acute March 03 12:56pm Weight gain acute February 12:56pm [facility] Work Phone: 1(169) 459-748004-16-2024 NoteHNO ID: [id number] Author: JASON ACEVEDO MD Service: ? Author Type: Physician Type: Progress Notes Filed: 08/07/2023 14:05 Note Text: The documentation for the note below was completed in part by Keyla Escobedo acting as a scribe for Jason Acevedo MD. 08/07/2023 1:13 PM. Scribe Attestation: By signing my name below, I, Keyla Escobedo, attest that the documentation in part for the note below and the encounter was completed in part by Keyla Escobedo acting as a scribe for Jason Acevedo MD. Electronically Signed: Dannielle Jack. August 07, [...] BS control and close follow up with PCP/employment recruiter - Exam with no NVI or NVD, [...] and agree with all of its relevant components.[facility]04-16-2024 History of Present illness Narrative* Jason Acevedo MD - 08/07/2023 1:13 PM EDT The documentation for the note below was completed in part by Keyla Escobedo acting as a scribe for Jason Acevedo MD. 08/07/2023 1:13 PM. Scribe Attestation: By signing my name below, I, Keyla Escobedo, attest that the documentation in part for the note below and the encounter was completed in part by Keyla Escobedo acting as a scribe for Jason Izquierdo MD. Electronically Signed: Dannielle Jack. August 07, [...] BS control and close follow up with PCP/employment recruiter - Exam with no NVI or NVD, [...] record reflects my personal performance and is accurateand complete. I have confirmed and edited as [...] of its relevant components. [facility] History of Present illness Narrative* Sonya Mejia NP - 06/07/2023 5:54 PM ESTAssociated Problem(s): Encounter for subsequent annual wellness visit (AWV) in Medicare patient Reviewed Ht/Wt/BMI Recommend eye exam yearly Recommend dental exams twice a year Balance work/leisure activities Exercises is recommended most days of the week (appropriate as chronic conditions allow) Follow up yearly and prn * Sonya Mejia NP - 06/07/2023 5:54 PM ESTAssociated Problem(s): Anxiety and depression (CMS/HCC) Stable on current meds * Sonya Mejia NP - 06/07/2023 5:54 PM ESTAssociated Problem(s): Type 2 diabetes mellitus, with long-term current use of insulin ([facility]) Not at goal, A1c 10%, continue care with [place] field talent qualification specialist Check blood sugars daily, notify if <70 or >200. Take medications (pills or insulin) as directed. Monitor for s/s of hypoglycemia (sweaty, dizziness, nausea, vomiting, or shakiness). Watch for increase in thirst, urination, or appetite. Inspect feet frequently monitoring for open wounds , andalso recommend yearly eye exam. Pt should attempt to remain as physically active as chronic conditions allow, as well as trying to follow a diet low in carbohydrates, and simple sugars. * Sonya Mejia NP - 06/07/2023 5:53 PM ESTAssociated Problem(s): 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 disease) Stable with current meds * Sonya Mejia NP - 06/07/2023 5:53 PM ESTAssociated Problem(s): Hypertension ([facility]) At goal no changes in meds * INA UNGER - 06/07/2023 5:00 PM EST Left knee pain Possibly wants to talk about getting a cane due to falls and not being able to see out of the left eye. * Sonya Mejia NP - 06/07/2023 5:00 PM EST Images from the original note were not [...] or shortness of breath. There are no associatedagents to hypertension. Risk factors for coronary artery [...] shortness of breath, suicidal ideas, suicidal planning andthoughts of . Frequency of symptoms: most days Sleep quality: good Compliance with medications: 76-100% GERD She reports no abdominal pain, no chest pain, no choking, no coughing, no nausea, no sore throat orno wheezing. Nothing aggravates the symptoms. There are [...] Diagnosis Date Adenocarcinoma of endometrium, stage 1 ([facility]) 04/30/2017 Total Hysterectomy Anxiety and depression ([facility]) 06/07/2023 Class 3 severe obesity due to excess calories without serious comorbidity with body mass index (BMI) of 40.0 to 44.9 in adult ([facility]) 04/02/2023 Diverticulitis of intestine without perforation or abscess without bleeding, unspecified part of intestinal tract 06/07/2023 Fatty liver History of hysterectomy for cancer 04/30/2017 HLD (hyperlipidemia) ([facility]) 05/24/2023 Learning disabilities 06/07/2023 Narcotic abuse in remission ([facility]) 06/07/2023 Partial blindness 06/07/2023 Type 2 diabetes mellitus with diabetic retinopathy ([facility]) 06/07/2023 without macular edema, unspecified retinopathy severity Type 2 diabetes mellitus, with long-term current use of insulin ([facility]) 04/02/2023 Past Surgical History: Procedure Laterality Date [...] reflux disease) Stable with current meds Hypertension ([facility]) At goal no changes in meds Type 2 diabetes mellitus, with long-term current use of insulin ([facility]) Not at goal, A1c 10%, continue care with [place] field talent qualification specialist Check blood sugars daily, notify if <70 or >200. Take medications (pills or insulin) as directed. Monitor for s/s of hypoglycemia (sweaty, dizziness, nausea, vomiting, or shakiness). Watch for increase in thirst, urination, or appetite. Inspect feet frequently monitoring for open wounds , andalso recommend yearly eye exam. Pt should attempt to remain as physically active as chronic conditions allow, as well as trying to follow a diet low in carbohydrates, and simple sugars. 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 [id number] Evaluation note* Encounter Date Diagnosis Assessment Notes [...] Jan, HTN (hypertension) (ICD-10 - I10) Jan, [facility] current use of insulin (ICD-10 - Z79.4) [...] Jan, Eating disorder (ICD-10 - F50.9) Defers Note Other 10-11-2023 NoteHNO ID: [id number] Author: Glendy Monreal PA-C Service: ? Author Type: Physician Leather Polisher Type: Progress Notes Filed: 01/31/2023 12:24 PM [...] BS control and close follow up with PCP/employment recruiter - Remains stable on exam and imaging - Call office with vision changes - Continue to monitor - Follow up with Dr. Acevedo in 6 months 2) S/p PPV / [...] improvement given atrophy - VA stable at (HM preop and fluctates HM/CF) - Remains stable on OCT and DFE - Call office with vision changes - Continue to monitor - Follow up with Dr. 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 I have spent 30 minutes with this patient and over 50% of the visit was counseling done by myself, Marcela VAZQUEZ-Simi. [employer] Other 07-31-2023 Evaluation note* Encounter Date Diagnosis [...] (ICD-10 - K59.00) Pt given miralax samples [employer] Other 07-07-2023 Evaluation note* Encounter Date Diagnosis Assessment Notes Treatment Notes Treatment Clinical Notes Oct, Type 2 diabetes mellitus with hyperglycemia (ICD-10 - E11.65) [employer] Other 06-27-2023 Evaluation note* Encounter Date Diagnosis [...] spent on education by Rosie CLARK, RN [employer] Other 06-20-2023 Evaluation note* Encounter Date Diagnosis Assessment Notes Treatment Notes Treatment Clinical Notes Sep, Type 2 diabetes mellitus with hyperglycemia (ICD-10 - E11.65) [employer] Other 05-10-2023 Evaluation note* Encounter Date Diagnosis [...] have episode of abdominal pain at the [facility], lipase was low, no suspicion [...] well with high surveillance by our office. [facility] reviewed. Appears she has follow-up [...] compaired to disease instability. Patient also uses [employer], has ICR and ISS treatment of [...] f/u with pcp BP ELEVATED TODAY August, [facility] current use of insulin (ICD-10 - Z79.4) [...] VGO review, fills per NR [place] RN/ regional vice president surgical sales. I have spent 30 minutes with this patient and over 50% of the visit was counseling done by myself, Marcela VAZQUEZ-Simi. [employer] Other 04-01-2023 History general Narrative - Reported* Type Description Date Medical History DM 2 Medical History HYPERTENSION Medical History DEPRESSION Medical History Opioid abuse Medical History retinopathy bilateral eyes Medical History cystic lesion esophagus 07/[address] [facility] Surgical History RIGHT EYE SURGERY Surgical History LT eye surgery Surgical History hysterectomy 04/2017 Hospitalization History DKA 06/2019 Hospitalization History DKA 0 Hospitalization History [facility]-ER 4-2 023 [employer] Other 03-29-2023 Evaluation note* Encounter Date Diagnosis [...] states she switched PCP providers to Sonya Aichholtz from [facility]. Pt seems in high spirits regarding [...] spent on education by Rosie CLARK, RN [employer] Other 01-04-2023 Evaluation note* Encounter Date Diagnosis [...] Pt reports she has been sick since on 04/15/22 and is currently ill. States [...] spent on education by Rosie CLARK, RN [employer] Other 11-22-2022 Evaluation note* Encounter Date Diagnosis [...] spent on education by Rosie CLARK, RN. [employer] Other 10-27-2022 Evaluation note* Encounter Date Diagnosis [...] present in 4 weeks for download with clinical systems educator and myself in 8 weeks. Patient [...] (ICD-10 - I10) f/u with pcp Jan, [facility] current use of insulin (ICD-10 - Z79.4) [...] was counseling done by myself, Marcela AMANDA. [employer] Other 10-11-2022 History of Present illness Narrative* Glendy Monreal PA-C - 01/31/2022 1:00 PM EDT All [...] control - Continue close follow up with PCP/employment recruiter - VA unchanged 2030 - OCT stable without fluid - Follow up with Dr. Acevedo in 6 months 2) S/p PPV / [...] new symptoms develop. documented in this encounterOhio[facility]-06-2022 Evaluation note* Encounter Date Diagnosis Assessment [...] patient by Heriberto Downs RN, [facility]. [employer] Other 06-07-2022 Evaluation note* Encounter Date Diagnosis [...] (ICD-10 - I10) f/u with pcp Sep, [facility] current use of insulin (ICD-10 - Z79.4) [...] was counseling done by myself, Marcela AMANDA. [employer] Other 04-27-2022 Evaluation note* Encounter Date Diagnosis [...] importance of insulin compliance and checking glucose achs. Patient has been able to use corrective [...] spent on education by Rosie CLARK, RN. [employer] Other 04-13-2022 Evaluation note* Encounter Date Diagnosis Assessment Notes Treatment Notes Treatment Clinical Notes Jul, Type 2 diabetes mellitus with hyperglycemia (ICD-10 - E11.65) [employer] Other 04-12-2022 Evaluation note* Encounter Date Diagnosis Assessment Notes Treatment Notes Treatment Clinical Notes Jul, Vitamin D deficiency (ICD-10 - E55.9) 04/28/2020 Vit d 20.1 start supplment 12 Apr, 2022 Type 2 diabetes mellitus with hyperglycemia (ICD-10 - E11.65) 1. Uncontrolled, a Type 2 diabetes with A1c of 10.0% 2. Continue VGO40, ISS 1:25- given in clicks. No ICR. Tolerating Ozempic 0.25 mg weekly, x 1 episode of emesis after peruvian food. If tolerating without further episodes of emesis can increase at DSME visit to 0.5 mg weekly. Discuss sick day management with patient, needs further review. Hold on SGLT2i_ _ patient with history of EUGLYCEMIC DKA IN THE PAST. _ __ _Blood glucoses have remained elevated, but seems to have increased vigilence. Following up on LIBRE2 SYSTEM from [employer] (has used Libre14 day in the past and insurance has changed since). She is currently doing fingersticks using [employer] neris as glucometer. 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 [employer] Other 03-15-2022 Evaluation note* Encounter Date Diagnosis [...] (ICD-10 - I10) f/u with pcp Jun, [facility] current use of insulin (ICD-10 - Z79.4) [...] was counseling done by myself, Marcela AMANDA. [employer] Other 01-05-2022 Evaluation note* Encounter Date Diagnosis Assessment Notes Treatment Notes Treatment Clinical Notes Apr, Type 2 diabetes mellitus with hyperglycemia (ICD-10 - E11.65) [employer] Other 12-20-2021 Evaluation note* Encounter Date Diagnosis [...] (ICD-10 - I10) f/u with pcp Mar, [facility] current use of insulin (ICD-10 - Z79.4) [...] was counseling done by myself, Marcela AMANDA. [employer] Other 11-22-2021 Evaluation note* Encounter Date Diagnosis Assessment Notes Treatment Notes Treatment Clinical Notes Feb, Type 2 diabetes mellitus with hyperglycemia (ICD-10 - E11.65) [employer] Other [id number] History of Past illness Narrative* Problem Noted Date Resolved Date Diabetes 08/02/2016 documented as of this encounter (statuses as of 01/31/2022) [facility] History of Past illness Narrative* Problem Noted Date Diagnosed Date Resolved Date Diabetes 08/02/2016 documented as of this encounter (statuses as of 08/08/2023) [facility] + Plan note No data available for this section [facility] General Surgery Ranjith evaluation noteNo assessment information available [facility] noteNort [place] Other evaluation noteNo InformationNort [place] Other evaluation note* Diagnosis 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, unspecified whether joint terminal attack controller insulin use (HCC)- Primary Nuclear sclerotic cataract, bilateral 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, bilateral documented in this encounter [facility] note* Diagnosis Mixed hyperlipidemia ([facility])- Primary Mixed hyperlipidemia documented [facility]* Diagnosis Encounter for subsequent annual wellness visit (AWV) in Medicare patient- Primary Encounter for screening mammogram for malignant neoplasm of breast Primary hypertension ([facility]) Unspecified essential hypertension Gastroesophageal reflux disease, unspecified whether esophagitis present 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, with long-term current use of insulin, macular edema presence unspecified, unspecified laterality, unspecified proliferative retinop* (CMS/HCC) Class 3 severe obesity due to excess calories without serious comorbidity with body mass index (BMI) of 40.0 to 44.9 in adult (CMS/HCC) Anxiety and depression (CMS/HCC) 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) Colon cancer screening Special screening for malignant neoplasms, colon documented in this encounter [facility]* Diagnosis 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, unspecified whether joint terminal attack controller insulin use (HCC)- Primary 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, bilateral Nuclear sclerotic cataract, bilateral [facility] Diagnosis Onset Date Resolution Status Type 2 diabetes mellitus with hyperglycemia acute [facility] Work Phone: Evaluation note* Diagnosis Onset Date Resolution Status Type 2 diabetes mellitus with hyperglycemia acute ADHD acute BMI 40.0-44.9, adult acute Fatty liver acute 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 disease) acute [facility] current use of insulin acute Noncompliance with medication regimen acute Retinopathy of both eyes acu te Type 2 diabetes mellitus with hyperglycemia acute Weight gain acute [facility] Work Phone: Evaluation note* Diagnosis Onset Date Resolution Status ADHD acute BMI 40.0-44.9, adult acute Fatty liver acute 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 disease) acute [facility] current use of insulin acute Noncompliance with medication regimen acute Retinopathy of both eyes acu te Type 2 diabetes mellitus with hyperglycemia acute Weight gain acute Type 2 diabetes mellitus with hyperglycemia acute [facility] Work Phone: evaluation note* Diagnosis Onset Date Resolution Status Type 2 diabetes mellitus with hyperglycemia acute ADHD acute BMI 40.0-44.9, adult acute Fatty liver acute 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 disease) acute [facility] current use of insulin acute Noncompliance with medication regimen acute Retinopathy of both eyes acu te Type 2 diabetes mellitus with hyperglycemia acute Weight gain acute Type 2 diabetes mellitus with hyperglycemia acute [facility] Work Phone: Evaluation note* Diagnosis Primary hypertension (CMS/HCC)- Primary Unspecified essential hypertension Mixed hyperlipidemia ([facility]) Mixed hyperlipidemia Environmental and seasonal allergies Gastroesophageal reflux disease, unspecified whether esophagitis present Anxiety Anxiety state, unspecified Major depressive disorder with single episode, remission status unspecified ([facility]) Colon cancer screening Special screening for [...] and depression (CMS/HCC) [facility] Diagnosis Primary hypertension (CMS/HCC)- Primary Unspecified essential hypertension 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, with long-term current use of insulin, macular edema presence unspecified, unspecified laterality, unspecified proliferative retinop* ([facility]) Class 3 severe obesity due to excess calories without serious comorbidity with body mass index (BMI) of 40.0 to 44.9 in adult ([facility]) Encounter for subsequent annual wellness visit (AWV) in Medicare patient- Primary Encounter for screening mammogram for malignant neoplasm of breast Primary hypertension ([facility]) Unspecified essential hypertension Gastroesophageal reflux disease, unspecified whether esophagitis present 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, with long-term current use of insulin, macular edema presence unspecified, unspecified laterality, unspecified proliferative retinop* ([facility]) Class 3 severe obesity due to excess calories without serious comorbidity with body mass index (BMI) of 40.0 to 44.9 in adult ([facility]) Anxiety and depression ([facility]) 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) Colon cancer screening Special screening for malignant neoplasms, colon Primary hypertension ([facility])- Primary Unspecified essential hypertension Malignant neoplasm of endometrium ([facility]) Malignant neoplasm of corpus uteri, except isthmus Opioid abuse, in remission ([facility]) Opioid abuse, in remission Mixed hyperlipidemia ([facility]) Mixed hyperlipidemia Anxiety Anxiety state, unspecified Major depressive disorder with single episode, remission status unspecified ([facility]) Gastroesophageal reflux disease, unspecified whether esophagitis present Environmental and seasonal allergies Class 3 severe obesity due to excess calories without serious comorbidity with body mass index (BMI) of 40.0 to 44.9 in adult ([facility]) Colon cancer screening Special screening for malignant neoplasms, colon Primary hypertension ([facility])- Primary Unspecified essential hypertension Mixed hyperlipidemia ([facility]) Mixed hyperlipidemia Environmental and seasonal allergies Gastroesophageal reflux disease, unspecified whether esophagitis present Anxiety Anxiety state, unspecified Major depressive disorder with single episode, remission status unspecified ([facility]) Colon cancer screening Special screening for malignant neoplasms, colon 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, with long-term current use of insulin, macular edema presence unspecified, unspecified laterality, unspecified proliferative retinop* ([facility]) Class 3 severe obesity due to excess calories without serious comorbidity with body mass index (BMI) of 40.0 to 44.9 in adult ([facility]) Anxiety and depression ([facility]) Need for immunization against influenza Need for prophylactic vaccination and inoculation against influenza Diabetic ketoacidosis without coma associated with type 2 diabetes mellitus ([facility]/HCC)- Primary 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, with long-term current use of insulin, macular edema presence unspecified, unspecified laterality, unspecified proliferative retinop* ([facility]) Class 3 severe obesity due to excess calories without serious comorbidity with body mass index (BMI) of 40.0 to 44.9 in adult ([facility]) Colon cancer screening Special screening for malignant neoplasms, colon documented in this encounter [facility] HealthcareEvaluation [facility]* Diagnosis Primary hypertension ([facility]/HCC)- Primary Unspecified essential hypertension 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, with long-term current use of insulin, macular edema presence unspecified, unspecified laterality, unspecified proliferative retinop* ([facility]) Class 3 severe obesity due to excess calories without serious comorbidity with body mass index (BMI) of 40.0 to 44.9 in adult ([facility]) Encounter for subsequent annual wellness visit (AWV) in Medicare patient- Primary Encounter for screening mammogram for malignant neoplasm of breast Primary hypertension ([facility]) Unspecified essential hypertension Gastroesophageal reflux disease, unspecified whether esophagitis present 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, with long-term current use of insulin, macular edema presence unspecified, unspecified laterality, unspecified proliferative retinop* ([facility]) Class 3 severe obesity due to excess calories without serious comorbidity with body mass index (BMI) of 40.0 to 44.9 in adult ([facility]) Anxiety and depression ([facility]) 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) Colon cancer screening Special screening for malignant neoplasms, colon Primary hypertension ([facility]/HCC)- Primary Unspecified essential hypertension Malignant neoplasm of endometrium ([facility]) Malignant neoplasm of corpus uteri, except isthmus Opioid abuse, in remission ([facility]) Opioid abuse, in remission Mixed hyperlipidemia ([facility]) Mixed hyperlipidemia Anxiety Anxiety state, unspecified Major depressive disorder with single episode, remission status unspecified ([facility]) Gastroesophageal reflux disease, unspecified whether esophagitis present Environmental and seasonal allergies Class 3 severe obesity due to excess calories without serious comorbidity with body mass index (BMI) of 40.0 to 44.9 in adult ([facility]) Colon cancer screening Special screening for malignant neoplasms, colon Primary hypertension ([facility])- Primary Unspecified essential hypertension Mixed hyperlipidemia ([facility]) Mixed hyperlipidemia Environmental and seasonal allergies Gastroesophageal reflux disease, unspecified whether esophagitis present Anxiety Anxiety state, unspecified Major depressive disorder with single episode, remission status unspecified ([facility]) Colon cancer screening Special screening for malignant neoplasms, colon 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, with long-term current use of insulin, macular edema presence unspecified, unspecified laterality, unspecified proliferative retinop* ([facility]) Class 3 severe obesity due to excess calories without serious comorbidity with body mass index (BMI) of 40.0 to 44.9 in adult ([facility]) Anxiety and depression ([facility]) Need for immunization against influenza Need for prophylactic vaccination and inoculation against influenza Diabetic ketoacidosis without coma associated with type 2 diabetes mellitus ([facility])- Primary 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, with long-term current use of insulin, macular edema presence unspecified, unspecified laterality, unspecified proliferative retinop* ([facility]) Class 3 severe obesity due to excess calories without serious comorbidity with body mass index (BMI) of 40.0 to 44.9 in adult ([facility]) Colon cancer screening Special screening for malignant neoplasms, colon Primary hypertension ([facility])- Primary Unspecified essential hypertension Type 2 diabetes mellitus with diabetic cataract ([facility]) Type II or unspecified type diabetes mellitus with ophthalmic manifestations, not stated as uncontrolled 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, with long-term current use of insulin, macular edema presence unspecified, unspecified laterality, unspecified proliferative retinop* ([facility]) Opioid abuse, in remission ([facility]) Opioid abuse, in remission 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 ([facility]) Morbid (severe) obesity due to excess calories ([facility]) Body mass index (BMI) 40.0-44.9, adult ([facility]) Gastroesophageal reflux disease, unspecified whether esophagitis present Adenocarcinoma of endometrium, stage 1 ([facility]) Class 3 severe obesity due to excess calories without serious comorbidity with body mass index (BMI) of 40.0 to 44.9 in adult ([facility]) Anxiety and depression ([facility]) Mixed hyperlipidemia ([facility]) Mixed hyperlipidemia Environmental and seasonal allergies Anxiety Anxiety state, unspecified Major depressive disorder with single episode, remission status unspecified ([facility]) Colon cancer screening Special screening for malignant neoplasms, colon [facility] Diagnosis 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, unspecified whether joint terminal attack controller insulin use (HCC)- Primary 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, bilateral Nuclear sclerotic cataract, bilateral documented in this encounter [facility] general Narrative - Reported* Type Description Date Medical History DM 2 Medical History HYPERTENSION Medical History DEPRESSION Medical History Opioid abuse Medical History retinopathy bilateral eyes Surgical History RIGHT EYE SURGERY Surgical History LT eye surgery Surgical History hysterectomy 04/2017 Hospitalization History DKA 06/2019 Hospitalization History DKA 0 [facility] Other History general [facility] - [facility] Discharge instructions No data available for this section [facility] General Surgery [place] [facility] note No data available for this section [facility] Surgery [place] Reason for referral (narrative)* Consultation (Routine) - Pending Review Specialty Diagnoses / Procedures Referred By Kezia ramon Referred To Contact General Surgery Diagnoses Colon cancer screening Procedures IN OFFICE/OUTPATIENT [facility] MDM 60 MINUTES Sonya Mejia NP [address] [place] [address] Aram Casey DO [address] [facility] [address] [place] [address] Referral ID Status Reason Start Date Expiration Date Visits Requested Visits Authorized [id number] Pending Review Specialty Services Required 01/30/2024 07/28/2024 1 1 [facility] Chief Complaint and Reason for Visit [...] adult Fatty liver 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 disease) [facility] current use of insulin Noncompliance with medication regimen Retinopathy of both eyes Type 2 diabetes mellitus with hyperglycemia Weight gain Chief Complaint DMN f/u / meter E11.65 DL per DS Reason for Visit ADHD BMI 40.0-44.9, adult Fatty liver 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 disease) [facility] current use of insulin Noncompliance with medication regimen Retinopathy of both eyes Type 2 diabetes mellitus with hyperglycemia Weight gain Type 2 diabetes mellitus with hyperglycemia Chief Complaint DL per DS DMN f/u / meter Reason for Visit Type 2 diabetes marti itus with hyperglycemia ADHD BMI 40.0-44.9, adult 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 liver 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 Noncompliance with medication regimen Retinopathy of both eyes Type 2 diabetes mellitus with hyperglycemia Weight gain Chief Complaint DL per DS DMN f/u / meter 2 week DL Reason for Visit Type 2 diabetes marti itus with hyperglycemia ADHD BMI 40.0-44.9, adult Fatty liver 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 disease) [facility] current use of insulin Noncompliance with medication regimen Retinopathy of both eyes Type 2 diabetes mellitus with hyperglycemia Weight gain Type 2 diabetes mellitus with hyperglycemia Chief Complaint DMN f/u / meter 2 week DL DMN f/u-METER Reason for Visit ADHD BMI 40.0-44.9, adult Fatty liver 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 disease) [facility] current use of insulin Noncompliance with medication regimen Retinopathy of both eyes Type 2 diabetes mellitus with hyperglycemia Weight gain Type 2 diabetes mellitus with hyperglycemia Chief Complaint Admit Date 2 week DL December 17, 2023 12 :57pm DMN f/u-METER January 22, 2024 1: 52pm lvm to move [facility] 02-07-2024 METER [facility] 2023 12:56pm Reason for Visit Admit Date Type 2 diabetes mellitus with hyperglyce juan December 17, 2023 12:57pm ADHD January 22, 2024 1: 52pm BMI 40.0-44.9, adult January 22, 2024 1 :52pm Fatty liver January 22, 2024 1: 52pm 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 disease) O ctober 2023 1:52pm 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 January 22, 2024 1:52pm Noncompliance with medication regimen Oc tober 2023 1:52pm Retinopathy of both eyes October 1st, 20 24 1:52pm Type 2 diabetes mellitus with hyperglyce juan January 22, 2024 1:52pm Weight gain January 22, 2024 1: 52pm ADHD March 03, 2024 12:56pm BMI 40.0-44.9, adult March 03, 2024 12:56pm Fatty liver March 03, 2024 12:56pm 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 disease) N ovember 2023 12:56pm HLD (hyperlipidemia) March 03, 2024 12:56pm 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 Novembe r 2023 12:56pm Noncompliance with medication regimen No vember 2023 12:56pm Retinopathy of both eyes March 03, 2024 12:56pm Type 2 diabetes mellitus with hyperglyce juan March 03, 2024 12:56pm Weight gain March 03, 2024 12:56pm Chief Complaint Admit Date lvm to move appt 02-07-2024 METER Novemb er 2023 12:56pm Diabetes Follow Up May 15, 2024 9 :47am Reason for Visit Admit Date ADHD March 03, 2024 12:56pm BMI 40.0-44.9, adult March 03, 2024 12:56pm Fatty liver March 03, 2024 12:56pm 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 disease) N ovember 2023 12:56pm HLD (hyperlipidemia) March 03, 2024 12:56pm 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 Novembe r 2023 12:56pm Noncompliance with medication regimen No vember 2023 12:56pm Retinopathy of both eyes March 03, 2024 12:56pm Type 2 diabetes mellitus with hyperglyce [facility] March 03, 2024 12:56pm Weight gain March 03, 2024 12:56pm Advance Directives Advance Directive Response Recorded Date/ Time Advance Directives No January 31, 2018 4:17pm Advance Directive Response Recorded Date/ Time Advance Directives No January 31, 2018 3:17pm Reason for Referral Reason Establish Diabetic F oot Care, Callous on left big toe Diagnosis 1 Type 2 diabetes marti itus with hyperglycemia (E11.65) Diagnosis 2 Callus of toe (L84) Referral Organization [facility] Referring Provider First Name Glenna Referring Provider Last Name Joni Referring Provider Specialty Nurse Pract itioner Referred Organization Podiatry Referred Address [address],[place], [place],[address] Referred Provider Specialty Podiatry - S urgical Chiropody Referral Priority Routine General Notes Vicky Calvoh 09/21 01:17:35 PM > Note not closed [...] may be documented in an alternate section No data available for this section REASON FOR VISIT (unrecogniz ed section and content) Reason Comments Diabetic Retinopathy Follow Up Reason Comments Med Refill Reason Comments Proliferative Diabetic Retinopathy Follo w Up Reason Comments Diabetes Source Comments (unrecognize d section and content) In the event this informatio n is protected by the Federal Confidentiality of Alcohol and Drug Abuse Patient Records regulations: The Federal rules restrict any use of the information to criminally investigate or prosecute any alcohol or drug abuse patient.[facility] the event this information is protected by the Federal Confidentiality of Alcohol and Drug Abuse Patient Records regulations: The Federal rules restrict any use of the information to criminally investigate or prosecute any alcohol or drug abuse patient.[facility] the event this information is protected by the Federal Confidentiality of Alcohol and Drug Abuse Patient Records regulations: The Federal rules restrict any use of the information to criminally investigate or prosecute any alcohol or drug abuse patient.[facility] Care Teams (unrecognized sec tion and content) Team Status: Active Member Role Status Dates Sonya Mejia Primary Care Provider Active Team Status: Inactive Member Role Status Dates Services [facility] Primary Care Provider Active Start: May 28, 2023 End: May 28, 2023 Mariam Beyer APRN Attending Provider Active Start: May 28, 2023 End: May 28, 2023 Claims Manager Relationship Specialty Start Date End Date Jessica Owens MD [address] [place] [address] PCP - General Family Medicine 06/07/18 Team Status: Active Member Role Status Dates Services [facility] Primary Care Provider Active Mariam Beyer APRN Attending Provider Active Team Status: Inactive Member Role Status Dates Sonya Mejia Primary Care Provider Active Glenna Quinones APRN Attending Provider Active Team Status: Inactive Member Role Status Dates Sonya Mejia Primary Care Provider Active Mark Gramajo APRN Attending Provider Active Claims Manager Relationship Specialty Start Date End Date Abad Garcia MD PCP - General Family Medicine 11/13/22 Sonya Mejia NP [address] [place] [address] Referring Physician Nurse Practitioner 11/13/22 Claims Manager Relationship Specialty Start Date End Date Abad Garcia MD [address] [place] [address] PCP - General Family Medicine 06/07/23 Sonya Mejia NP [address] [place] [address] Referring Physician Nurse Practitioner 11/13/22 Sonya Mejia NP [address] [place] [address] Nurse Practitioner Family Medicine 06/07/23 Claims Manager Relationship Specialty Start Date End Date Abad Garcia MD [address] [place] [address] PCP - General Family Medicine 06/07/23 Sonya Mejia NP [address] [place] [address] Referring Physician Nurse Practitioner 11/13/22 Sonya Mejia NP [address] [place] [address] Nurse Practitioner Family Medicine 06/07/23 Claims Manager Relationship Specialty Start Date End Date Jessica Owens MD [address] [place] [address] PCP - General Family Medicine 06/07/18 Team [...] January 22, 2024 End: January 22, 2024 Claims Manager Relationship Specialty Start Date End Date Abad Garcia MD [address] [place] [address] PCP - General Family Medicine 06/07/23 Sonya Mejia NP [address] [place] [address] Referring Physician Nurse Practitioner 11/13/22 Sonya Mejia NP [address] [place] [address] Nurse Practitioner Family Medicine 06/07/23 Claims Manager Relationship Specialty Start Date End Date Abad Garcia MD [address] [place] [address] PCP - General Family Medicine 06/07/23 Sonya Mejia NP [address] [place] [address] Referring Physician Nurse Practitioner 11/13/22 Sonya Mejia NP [address] [place] [address] Nurse Practitioner Family Medicine 06/07/23 Claims Manager Relationship Specialty Start Date End Date Abad Garcia MD [address] [place] [address] PCP - General Family Medicine 06/07/23 Sonya Mejia NP [address] [place] [address] Referring Physician Nurse Practitioner 11/13/22 Sonya Mejia NP [address] [place] [address] Nurse Practitioner Family Medicine 06/07/23 Claims Manager Relationship Specialty Start Date End Date Unallocated, Vince Trotter MD [address] [place] [address] PCP - General Family Medicine 02/12/24 Sonya Mejia NP [address] [place] [address] Referring Physician Nurse Practitioner 11/13/22 Sonya Mejia NP [address] [place] [address] Nurse Practitioner Family Medicine 06/07/23 Claims Manager Relationship Specialty Start Date End Date Unallocated, Vince Trotter MD [address] [place] [address] PCP - General Family Medicine 02/12/24 Sonya Mejia NP [address] [place] [address] Referring Physician Nurse Practitioner 11/13/22 Sonya Mejia NP [address] [place] [address] Nurse Practitioner Family Medicine 06/07/23 Claims Manager Relationship Specialty Start Date End Date Unallocated, Vince Trotter MD [address] [place] [address] PCP - General Family Medicine 02/12/24 Sonya Mejia NP [address] [place] [address] Referring Physician Nurse Practitioner 11/13/22 Sonya Mejia NP [address] [place] [address] Nurse Practitioner Family Medicine 06/07/23 Team Status: Active Member Role Status Dates Sonya Mejia Primary Care Provider Active Sta rt: February 11, 2024 End: February 13, 2024 Marques Goel DO Attending Provider Active Sta rt: February 11, 2024 End: February 13, 2024 Shaikh Pasquale MD Referring Provider Active Sta rt: February 11, 2024 End: February 13, 2024 Team Status: Inactive Member Role Status Dates Sonya Mejia Primary Care Provider Active Sta rt: March 03, 2024 End: March 03, 2024 Glenna Quinones APRN Attending Provider Active Start: March 03, 2024 End: March 03, 2024 Claims Manager Relationship Specialty Start Date End Date Abad Garcia MD [address] [place] [address] PCP - General Family Medicine 02/21/24 Sonya Mejia NP [address] [place] [address] Referring Physician Nurse Practitioner 11/13/22 Sonya Mejia NP [address] [place] [address] Nurse Practitioner Family Medicine 06/07/23 Claims Manager Relationship Specialty Start Date End Date Abad Garcia MD [address] [place] [address] PCP - General Family Medicine 02/21/24 Sonya Mejia, ABBE [address] [place] [address] Referring Physician Nurse Practitioner 11/13/22 Sonya Mejia, ABBE [address] [place] [address] Nurse Practitioner Family Medicine 06/07/23 Team Status: Inactive Member Role Status Dates Sonya Mejia Primary Care Provider Active Sta rt: May 15, 2024 End: May 15, 2024 Blane Downs RN Attending Provider Active St art: May 15, 2024 End: May 15, 2024 Glenna Quinones APRN Active Star t: May 15, 2024 End: May 15, 2024 Claims Manager Relationship Specialty Start Date End Date Jessica Owens MD [address] [address] PCP - General Family Medicine 06/07/18 INFORMATION SOURCE (unrecogn ized section and content) DATE CREATED AUTHOR 09/07/2022 [facility] DATE CREATED AUTHOR AUTHOR'S ORGANIZ ATION 08/08/2023 [facility] DATE CREATED AUTHOR AUTHOR'S ORGANIZ ATION 08/23/2023 [facility] DATE CREATED AUTHOR AUTHOR'S ORGANIZ ATION 05/06/[address] [facility] EPIC DATE CREATED AUTHOR AUTHOR'S ORGANIZ ATION 05/29/2024 [facility] Inactive Administered Medications - up to 3 [...] BE BASED ON THE PRIMARY CLINICAL RECORDS. [employer] [facility]. provides no warranty or guarantee of the accuracy or completeness of information in this document.
[2024-06-04] MEDS: 0.9 % SODIUM CHLORIDE 500 ML 50 ML IV (11:02)
[2024-06-04] MEDS: LACTATED RINGER'S SOLUTION 1,000 ML 50 ML IV (13:43)
[2024-06-04 13:45] VITALS: BP 126/73; PULSE 88; O2SAT 96
[2024-06-04 13:57] LABS: Glucometer 234 mg/dL (74-106)
[2024-06-04 14:00] VITALS: BP 143/97; PULSE 86; O2SAT 98
== END 2024-06-04 14:15 | disposition home or self-care (01) ==
PROVIDERS: PCP Nurse Practitioner; Visit Provider Surgery
PROC: (CPT 45380; principal; 2024-06-04 11:35)
DX: Z12.11 Encounter for screening for malignant neoplasm of colon (principal); D12.8 Benign neoplasm of rectum; E11.9 Type 2 diabetes mellitus without complications; I10 Essential (primary) hypertension; E78.5 Hyperlipidemia, unspecified; K21.9 Gastro-esophageal reflux disease without esophagitis; Z85.89 Personal history of malignant neoplasm of other organs and systems; Z87.891 Personal history of nicotine dependence; E66.01 Morbid (severe) obesity due to excess calories; Z68.41 Body mass index [BMI] 40.0-44.9, adult; Z79.84 Long term (current) use of oral hypoglycemic drugs; Z90.710 Acquired absence of both cervix and uterus
CPT/HCPCS: 45380; 36415; 82948; 88305; J2704

== ENCOUNTER 2024-07-10 07:33 | Outpatient (OUT) | payer MEDICARE, SELFPAY ==
--- OUTSIDE RECORDS SUMMARY | 2024-07-10 07:39 | XMS_ITS | CCD ---
Author Organization [facility] Care Team Providers Care Director Of Public Health Name Role Phone [facility] Primary Care Provider Mariam Beyer Attending Provider [phone] Abner Cartwright Attending Provider [phone] Glenna Quinones Unavailable Kim Owens MD Primary Care Provider Sonya Mejia Primary Care Provider HARI Quinones Attending Provider [facility] Primary Care Provider HARI Beyer Attending Provider [phone] AICHHOLZ, FORGING PRESS OPERATOR SONYA Attending Unavailable AICHHOLZ, FORGING PRESS OPERATOR SONYA Admitting Unavailable AICHHOLZ, FORGING PRESS OPERATOR SONYA Primary Care Unavailable AICHHOLZ, FORGING PRESS OPERATOR SONYA Attending Unavailable AICHHOLZ, FORGING PRESS OPERATOR SONYA Admitting Unavailable DR MATT CABRERA Primary Care Unavailable AICHHOLZ, FORGING PRESS OPERATOR SONYA Consulting Unavailable AICHHOLZ, FORGING PRESS OPERATOR SONYA Attending Unavailable AICHHOLZ, FORGING PRESS OPERATOR SONYA Admitting Unavailable AICHHOLZ, FORGING PRESS OPERATOR SONYA Primary Care Unavailable AICHHOLZ, FORGING PRESS OPERATOR SONYA Consulting Unavailable DR VALERIANO SINCLAIR Consulting Unavailable KAYA PATEL Consulting Unavailable JOSÉ ., ADAM Admitting Unavailable ADAM DUMONT Attending Unavailable AICHHOLZ, FORGING PRESS OPERATOR SONYA Primary Care Unavailable MYRTLE DUMONTID Consulting Unavailable Mark Gramajo Unavailable [facility] Primary Care Provider HARI Beyer Attending Provider Sonya Mejia Primary Care Provider HARI Gramajo Attending Provider Jose APODACA, Abad Primary Care Provider Aichholfadumo OIL PIPE INSPECTOR, Sonya Unavailable [facility] Primary Care Provider HARI Beyer Attending Provider Jose APODACA, Abad Primary Care Provider [phone] Aicdanishholfadumo OIL PIPE INSPECTOR, Sonya Unavailable Roman APODACA, Kim Primary Care Provider [phone] [facility] Primary Care Provider HARI Beyer Attending Provider Sonya Mejia J Primary Care Provider HARI Quinones Attending Provider Aichholfadumo OIL PIPE INSPECTOR, Sonya Unavailable Unallocated , Noms Provider Primary Care Provi tremayne Jose APODACA, Abad Primary Care Provider AICHHOLZ, SONYA Attending Unavailable AICHHOLZ, SONYA Attending Unavailable AICHHOLZ, SONYA Attending Unavailable AICHHOLZ, SONYA Attending Unavailable AICHHOLZ, SONYA Attending Unavailable AICHHOLZ, SONYA J Primary Care Physician Kim Owens MD Primary Care Provider JASON ACEVEDO Attending Unavailable JASON ACEVEDO P Referring Unavailable OWENS ANNALYSRosanna Primary Care Unavailable CURTISJASON MERINO Attending Unavailable CURTIS JASON P Referring Unavailable ROMAN, ANNALYSRosanna Primary Care Unavailable Donell Mcgrath MD Attending Provider Donell Mcgrath Admitting Unavailable Donell Mcgrath Attending Unavailable Glenna Quinones Attending Unavailable Glenna Quinones Admitting Unavailable AicSonya damian J Primary Care Unavailable Donell MCGRATH Attending Unavailable SONYA MEJIA Referring Unavailable Donell MCGRATH Attending Unavailable Donell MCGRATH Attending Unavailable Allergies Allergy Classification Reported Allergen(s) Allergy Type Date of Onset Reaction(s) Facility (20 sources) SGLT2s Propensity to adverse reactions DKA x2 [email or web address] Other (4 sources) Seasonal allergy; Translations: [SEASONAL ALLERGIES] Allergy to substance 2 Other: See Comments [facility] (19 sources) dulaglutide; Translations: [dulaglutide] Drug Allergy 2 Vomiting (disorder) [facility] Medications Current Medications Medication Drug Class(es) Dates Sig (Normalized) Sig (Original) 0.5 ML tirzepatide 20 MG/ML Auto-Injector [Mounjaro] (2 sources) Start: 05-22-2024 inject 10 mg by subcutaneous [...] days Active amLODIPine 10 mg oral tablet (12 sources) Dihydropyridine Calcium Channel Yneni Start: 02-13-2024 take 1 tablet by mouth once daily Amlodipine 10 mg tablet Active 10 MG PO Daily March 03, 2024 12:00am atorvastatin 80 mg oral tablet (20 sources) HMG-CoA Reductase Inhibitor Start: 05-24-2023 End: 07-30-2024 take 1 tablet by mouth once daily Atorvastatin 80 mg tablet Active 80 MG PO Daily August 20, 2023 11:00pm Start: 01-31-2018 End: 06-30-2019 take 1 tablet by mouth once daily Atorvastatin 10 mg tablet Discontinued 10 MG PO Daily January 30, 2018 11:00pm June 30, 2019 1:22pm End: 05-24-2023 take 1 tablet by mouth in the morning atorvastatin (Lipitor) 40 MG tablet Take 1 tablet by mouth in the morning. 0 05/24/2023 Discontinued (Ineffective) take 1 tablet by jen th every twenty-four hours Atorvastatin Calcium 20 MG 1 tablet Orally Once a day for 90 days Active Comment on above: Take 10 mg by mouth once daily. Basaglar KwikPen (2 sources) Start: 05-22-19 inject 30 [IU] by subcutaneous [...] on Sun06/03/24 at 0930, Until Sun06/03/24 at 2128, Administer for applanation tonometry. In the event of a Fluress shortage, administer 1 drop of Samantha-Fluor into both eyes as directed for applanation [...] (KEFLEX) 500 mg capsule 03/18/2018 Active Cholecalciferol (10 sources) Vitamin D Start: 024 take 1 capsule by mouth once daily cholecalciferol (vitamin D3) Active 1 CAP PO Daily August 20, 2023 11:00pm Start: 08-21-2023 take 1 capsule by mo ut once daily cholecalciferol (vitamin D3) Active 1 CAP PO Daily August 21, 2023 12:00am dexamethasone 1 mg oral tablet (1 source) Corticosteroid Start: 06-19-2024 take 1 tablet by mouth once daily Dexamethasone 1 mg tablet Active 1 MG PO Daily June 19, 2024 12:00am dicyclomine hydrochloride 20 mg oral tablet (17 sources) Anticholinergic Start: 02-18-2018 dicyclomine (BENTYL) 20 [...] traction retinal detachments involving maculae, unspecified whether long winder tender insulin use (HCC) , Nuclear sclerotic cataract, bilateral , 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, bilateral Take by mouth one time a week. Active Comment on above: Take by mouth one ti me a week. Fish Oils (20 sources) Fish Oil Active Flash Glucose Scanning [place] (Freestyle Neris 2 Big [place]) misc (10 sources) Start: Flash Glucose Scanning [place] (Freestyle Neris 2 [place]) misc Active 0 .Route August 20, 2023 11:00pm As directed Start: 08-21-2023 Flash Glucose Scanning [place] (Freestyle Neris 2 Big [place]) misc Active 0 .Route August 21, 2023 12:00am As directed Start: 08-21-2023 Flash Glucose Scanning [place] (Freestyle Neris 2 [place]) misc Active 0 .ROUTE August 21, 2023 12:00am As directed Flash Glucose Sensor (Freest yle Neris 2 Sensor) kit (10 sources) Start: 08-21-2023 Flash Glucose Sensor (Freestyle [...] days for 84 days Active FreeStyle Neris [place] - (20 sources) Start: 01-21-2020 FreeStyle Libr e [place] - as directed use with 14 days sensor check glucose with reader ac, hs, prn Dec, Active FreeStyle Neris [place] - as directed use with 14 days [...] hs and prn for 28 days Active insulin aspart, human 100 unt/ml injectable solution [...] BEDTIME ammonium lactate 120 mg/ml topical lotion (18 sources) Start: 05-22-2024 ammonium lactate (LAC-HYDRIN) 12 [...] completed) Start: 11-02-[address] [facility] once daily in the morning lisinopril 20 MG tablet Take 40 mg by mouth in the morning. Total is 40mg, so 2 pills daily. 0 11/02/2022 Active Start: 01-24-2021 End: 07-30-2024 take 1 tablet by mouth once daily Lisinopril 40 mg tablet Active 40 MG PO Daily August 20, 2023 11:00pm Start: 11-04-2019 End: 08-21-2023 take 1 tablet [...] tablet (20 sources) Start: 10-15-2023 End: 07-30-2024 take 1 tablet by mouth once daily loratadine 10 mg Tab 10 mg = 1 tab(s), Oral, Daily, Refills(s) 0 Start Date: 05/22/24 Status: Ordered take 1 tablet by mouth once dawson y loratadine (Claritin) 10 MG tablet Take 10 mg by mouth 1 (one) time each day at the same time. 0 Active metFORMIN hydrochloride 1000 mg oral tablet (20 sources) Biguanide Start: 01-31-2018 End: 06-19-2024 take 1 tablet by mouth twice daily at mealtime Metformin 1,000 mg tablet Active 1000 MG PO Twice daily with meals June 19, 2024 3:30pm take 1 tablet by jen th every [...] days 01/23/2024 Active Multi Vitamins oral tablet (2 sources) Start: 05-22-2024 take 1 tablet by mouth [...] multivitamin-ferrous fumarate-folic acid (CENTRUM COMPLETE) (1 source) multivitamin-silas jyotsna fumarate-folic acid (CENTRUM COMPLETE) Take by mouth every 24 hours. Active sm-lo-ccjm-FA-Ca carb-vit K (Women's Multivitamin) (10 sources) Start: take 1 tablet by mouth once daily bh-df-stbe-FA-Ca carb-vit K (Women's Multivitamin) Active 1 TAB PO Daily August 20, 2023 11:00pm Start: 08-21-2023 take 1 tablet by jen th once daily tc-ga-qfhd-FA-Ca carb-vit K (Women's Multivitamin) Active 1 TAB PO Daily August 21, 2023 12:00am omega-3 fatty acids (Fish Oil) (10 sources) Start: 08-21-2023 take 1 capsule by mouth once daily omega-3 fatty acids (Fish Oil) Active 1 CAP PO Daily August 20, 2023 11:00pm Start: 08-21-2023 take 1 capsule by mouth once d aily omega-3 fatty acids (Fish Oil) Active 1 CAP PO Daily August 21, 2023 12:00am phenylephrine hydrochloride 25 mg/ml ophthalmic solution (4 [...] 03/08/2018 Active take 1 capsule by mo [facility] in the morning, then take 1 capsule [...] 1 tablet by mouth once daily Sertraline 50 mg tablet Active 50 MG PO Daily August 20, 2023 11:00pm Start: 04-25-2023 End: 07-24-2023 take 1 tablet by mouth in the morning sertraline (Zoloft) 50 MG tablet Indications: Anxiety , Major depressive disorder with single episode, remission status unspecified (CMS/HCC) Take 1 tablet (50 mg) by mouth in the morning. 90 tablet 0 04/25/2023 07/24/2023 Active Start: 05-27-2018 End: 08-21-2023 take 1 tablet by mouth once daily Sertraline 25 mg tablet Discontinued 25 MG PO Daily June 29, 2019 11:00pm August 21, 2023 12:04pm Start: 05-27-2018 take 2 tablets by mo [facility] once daily sertraline (ZOLOFT) 25 mg tablet Take 50 mg by mouth once daily. 0 05/27/2018 Active take 1 tablet by jen every twenty-four hours Sertraline HCl 50 MG 1 tablet Orally Once a day Active Comment on above: Take 25 mg by mouth once daily. Take 50 mg by mouth once daily. Sub-Q Insulin Device, 40 Unit (V-Go 40) device (20 sources) Start: 05-16-2024 Sub-Q Insulin Device, 40 Unit (V-Go 40) device Active 0 .Route May 16, 2024 8:07am As directed Start: 03-03-2024 End: 05-16-2024 Sub-Q Insulin Device, 40 Uni t (V-Go 40) device Discontinued 0 .Route March 03, 2024 5:18pm May 16, 2024 8:08am As directed Start: 03-03-2024 Sub-Q Insulin Device, 40 Unit [...] August 21, 2023 12:00am As directed Tirzepatide (1 source) Start: 06-19-2024 inject 1 mg by subcutaneous injection every week Tirzepatide 12.5 mg/0.5 mL pen injector Active 12.5 MG SUBCUT every week 2 June 19, 2024 4:16pm OK to dispense 10 mg IF 12.5 UNAVAILABLE unavailable, then revert to 12.5 mg when available tropicamide 10 mg/ml ophthalmic [...] traction retinal detachments involving maculae, unspecified whether group home insulin use (HCC) , Nuclear sclerotic cataract, bilateral , 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, bilateral once daily. USE DIRECTED. 04/25/2021 Active Start: 04-25-2021 V-GO 40 fer I ndications: 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, unspecified whether group home insulin use (HCC) , Nuclear sclerotic [...] mouth every 24 hours. Active vitamin B12 (10 sources) Vitamin B12 Start: 08-21-2023 take 1 [...] (Original) 0.5 ml dulaglutide 1.5 mg/ml auto-injector (14 sources) GLP-1 Receptor Agonist Start: 11-02-2019 End: 08-21-2023 inject 1 mg by subcutaneous injection every week Dulaglutide (Trulicity) 0.75 mg/0.5 mL Pen Injector Discontinued MG SUBCUT every week November 01, 2019 11:00pm August 21, 2023 12:02pm ertugliflozin 15 mg oral tablet (17 sources) Start: 02-27-2019 End: 11-04-2019 take 1 tablet by mouth once daily Ertugliflozin 15 mg tablet Discontinued 15 MG PO Daily June 29, 2019 11:00pm November 04, 2019 12:14pm Flash Glucose Scanning [place] (Freestyle Neris 14 Day [place]) misc (10 sources) Start: 08-21-2023 End: 08-21-2023 Flash Glucose Scanning [place] (Freestyle Neris 14 Day [place]) misc Discontinued 0 .Route August 20, 2023 11:00pm August 21, 2023 12:09pm As directed Start: 08-21-2023 End: 08-21-2023 Flash Glucose Scanning Reade r (Freestyle Neris 14 Day [place]) misc Discontinued 0 .Route August 21, 2023 12:00am August 21, 2023 1:09pm As directed Flash Glucose Sensor (Freest yle Neris 14 Day Sensor) kit (10 sources) Start: 08-21-2023 End: 08-21-2023 Flash Glucose [...] mg / lisinopril 20 mg oral tablet (17 sources) Thiazide Diuretic, Angiotensin Converting Enzyme Inhibitor [...] U-100 100 unit/mL (3 mL) insulin pen (4 sources) Start: 08-21-2023 End: 08-21-2023 Insulin Aspart U-100 100 unit/mL (3 mL) insulin pen Discontinued 0 UNITS SUBCUT 3x/Day before meals August 21, 2023 12:02pm August 21, 2023 12:12pm 8, 12, or 15 units based on pt's blood glucose Please contact the information source for Protocol details. Insulin Aspart U-100 100 unit/mL insulin pen (4 sources) Start: 01-31-2018 End: 08-21-2023 Insulin Aspart U-100 100 unit/mL insulin pen Discontinued 0 UNITS SUBCUT 3x/Day before meals January 30, 2018 11:00pm August 21, 2023 12:09pm 8, 12, or 15 units based on pt's blood glucose Please contact the information source for Protocol details. Insulin Aspart U-100 100 unit/mL solution (3 sources) Start: 05-12-2024 End: 06-19-2024 Insulin Aspart U-100 100 unit/mL solution Discontinued 0 SUBCUT Use as Directed 80 90 May 12, 2024 12:00am June 19, 2024 3:30pm USE DIRECTED per sliding SUBCUTANEOUSLY (UNDER THE SKIN) WITH VGO 40 *up to 90 UNITS DAILY * Start: 05-12-2024 Insulin Aspart U-100 100 unit/mL solution Active 0 SUBCUT Use as Directed 80 90 May 12, 2024 12:00am USE DIRECTED per sliding SUBCUTANEOUSLY (UNDER THE SKIN) WITH VGO 40 *up to 90 UNITS DAILY * Insulin Glargine 100 UNIT/ML (5 sources) Start: 12-11-2022 Insulin Glargi ne 100 UNIT/ML [...] 12/17/2023 01/30/2024 Discontinued (Therapy completed) Start: 12-17-2023 James 7.5 M G/0.5ML solution pen-injector Inject 7.5 mg under the skin every 7 (seven) days 12/17/2023 Active naltrexone 380 mg injection (17 sources) Opioid Antagonist Start: 05-21-2018 End: 11-02-2019 Naltrexone Microspheres 380 mg suspension,extended rel recon Discontinued 380 MG IM Q28D June 29, 2019 11:00pm November 02, 2019 9:59am omeprazole 40 mg delayed release oral capsule (20 sources) Proton Pump Inhibitor Start: 11-02-2019 End: 08-21-2023 Omeprazole 40 mg capsule,delayed release(DR/EC) Discontinued November 01, 2019 11:00pm August 21, 2023 12:09pm Start: 11-02-2019 Omeprazole Act bart November 01, 2019 11:00pm Start: 01-31-2018 End: 07-30-2024 take 1 capsule by mouth once daily Omeprazole 40 mg capsule,delayed release(DR/EC) Active 40 MG PO Daily August 21, 2023 12:03pm Comment on above: Take 40 mg by mouth once daily. Semaglutide (Ozempic) 2 mg/dose (8 mg/3 mL) pen injector (10 sources) Start: End: inject 2 mg by subcutaneous injection every [...] every week August 21, 2023 12:00am Tirzepatide (9 sources) Start: 08-21-2023 End: 10-11-2023 Tirzepatide (Mounjaro) [...] week 2.5 August 21, 2023 12:00am Tirzepatide (9 sources) Start: 08-21-2023 End: 10-11-2023 inject 2.5 [...] weeks 2.5 mg weekly if tolerated Tirzepatide (20 sources) Start: 12-17-2023 End: 01-22-2024 Tirzepatide (Mounjaro) 7.5 m g/0.5 mL pen injector Discontinued 7.5 MG SUBCUT every week 2 December 17, 2023 1:03pm January 22, 2024 [...] 11, 2023 12:00am October 11, 2023 1:53pm Tirzepatide (8 sources) Start: 06-19-2024 End: 06-19-2024 Tirzepatide 10 mg/0.5 mL pen injector Discontinued 10 MG SUBCUT every week 6 June 19, 2024 4:13pm June 19, 2024 4:17pm OK to dispense 7.5 if 10 mg unavailable, then revert to 10 mg when available Start: 03-03-2024 End: 06-19-2024 Tirzepatide 10 mg/0.5 mL pen injector Discontinued 10 MG SUBCUT every week 6 March 03, 2024 5:18pm June 19, 2024 4:15pm OK to dispense 7.5 if 10 mg unavailable, then revert to 10 mg when available Start: 03-03-2024 Tirzepatide 10 mg/0.5 mL pen [...] then revert to 10 mg when available Problems Active Problems Problem Classification Problem Date Documented Da te Episodic/Chronic Abdominal pain (20 sources) Abdominal pain; Translations: [Unspecified abdominal pain] Onset: 3 Episodic Administrative/social admission (9 sources) Dietary counseling and [...] Onset: 4 06-07-2023 Chronic Cancer of uterus (19 sources) Adenocarcinoma of endometrium; Translations: [Malignant neoplasm of endometrium] Onset: 8 06-07-2023 Chronic Cardiac dysrhythmias (14 sources) Tachycardia; Translations: [Tachycardia, unspecified] 06-27-2019 Episodic Cataract (20 sources) Nuclear sclerotic cataract; Translations: [Age-related nuclear cataract, bilateral] Onset: 8 Chronic Developmental disorders (17 sources) Developmental academic disorder; Translations: [Developmental disorder of scholastic skills, unspecified] Onset: 4 06-07-2023 Chronic Diabetes mellitus with complications (20 sources) Diabetic ketoacidosis; Translations: [Type 2 diabetes mellitus with ketoacidosis without coma] Onset: 7 Resolved: 5 Chronic Diabetes mellitus without complication (20 sources) Diabetes mellitus without complication; Translations: [Type 2 diabetes mellitus without complications] Onset: 3 Resolved: 7 04-02-2023 Chronic Diabetes mellitus without complication (2 sources) Diabetes mellitus without complication Onset: 2 05-22-2024 Diseases of white blood cells (14 sources) Leukocytosis; Translations: [Elevated white blood cell [...] disease without esophagitis] Onset: 3 08-02-2016 Chronic Essential hypertension (20 sources) Hypertensive disorder; Translations: [...] sources) Long-term current use of insulin; Translations: [intermediate frame tender (current) use of insulin] Onset: 4 Resolved: 5 06-07-2023 Episodic Other aftercare (9 sources) Encounter for therapeutic drug level monitoring Onset: 1 Resolved: 2 Episodic Other aftercare (18 sources) senior living (current) use of insulin; Translations: [Long-term (current) use of insulin] Onset: 1 Resolved: 2 Episodic Other aftercare (1 source) Other group home (current) drug therapy; Translations: [OTH NOODLE MAKER CURRENT DRUG THERAPY] Onset: 3 Episodic Other aftercare (1 source) senior living (current) use of oral hypoglycemic drugs; Translations: [RESIDENTIAL USE ORAL HYPOGLYCEMIC DX] Onset: 3 Episodic Other and unspecified benign neoplasm (1 source) Benign neoplasm of rectum; Translations: [Benign neoplasm of rectum] Onset: 5 Episodic Other and unspecified benign neoplasm (1 source) Adenomatous polyp of rectum 06-18-2024 Episodic Other eye disorders (3 sources) Vitreomacular adhesion of bilateral eyes; 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, bilateral] Onset: 8 10-11-2017 Chronic Other gastrointestinal disorders (7 sources) Constipation; Translations: [Constipation, unspecified] Episodic Other gastrointestinal disorders (1 source) Constipation, unspecified Episodic Other liver diseases (20 sources) Steatosis [...] Chronic Other nutritional; endocrine; and metabolic disorders (2 sources) Obese class III 05-22-2024 Chronic Other nutritional; endocrine; and metabolic disorders (5 sources) Weight gain; Translations: [Abnormal weight gain] 08-21-2023 Episodic Other nutritional; endocrine; and metabolic disorders (8 sources) Abnormal weight gain; Translations: [Abnormal weight gain] 08-21-2023 Episodic Other nutritional; endocrine; and metabolic disorders (4 sources) Weight increased; Translations: [Abnormal weight gain] 08-21-2023 Episodic Other [...] normal; Translations: [Normal blood glucose level] Unclassified (6 sources) Patient encounter status 02-21-2024 Past or Other Problems Problem Classification Problem Date Documented Da te Episodic/Chronic Genitourinary symptoms and ill-defined conditions (16 sources) Abnormal urinalysis; Translations: [Unspecified abnormal findings in urine] Onset: 04-02-2023 04-02-2023 Episodic Mood disorders (14 sources) Mood disorders Onset: 06-07-2023 06-07-2023 Nutritional deficiencies (20 sources) Deficiency of other specified B group vitamins; Translations: [Vitamin deficiency] Onset: 04-11-2021 Resolved: 09-27-2021 Episodic Results Test Name Value Interpretation Reference Range Facility Ambulatory Visit Summaryon 0 06-18-2024 Ambulatory Visit Summary Ambulatory Visit Summary TASHA PAUL :1975 Visit Date:06/18/2024 Ambulatory Visit Instructions Your Diagnosis Tubular adenoma of rectum Your Care Team Attending Physician - RAMILA APODACA, Donell Nix Primary Care Physician - SONYA MEJIA CNP This Is [...] 10 mg/0.5 mL subcutaneous solution) Procedures Performed Colonoscopy (06/04/2024), Extraction of wisdom tooth, Laparoscopy, Laser eye surgery, [facility] - Total abdominal hysterectomy and bilateral salpingo-oophorectomy, Tonsillectomy. Medications What How Much When Instructions Unchanged [...] malignant neoplasm of colon Steatosis of liver Tubular adenoma of rectum Patient Survey You may receive a survey via text or e-mail asking about your office visit. Please share your experience with us by completing your survey. We appreciate your feedback and thank you for choosing us for your care. [facility] General Surgery Office/Clini c Noteon 06-18-2024 General Surgery Office/Clinic Note General Surgery Office/Clinic Note Chief Complaint post operative follow up HPI Staff 14 day post operative follow up post colonoscopy with rectal polypectomy. History of Present Illness f/u colonoscopy for colorectal screening, had removal of small tubular adenoma from rectum; doing well, no pain or bleeding. Review of Systems PHQ Score Initial Depression Screen Score: 0 SCORE ROS - Provider Constitutional: no fever, no sweats, no weight loss. Eyes: no glasses, no blurred vision, no visual loss. [...] been reviewed and are negative or noncontributory. Assessment/Plan 1. Tubular adenoma of rectum (D12.8: Benign neoplasm of rectum) doing well, recommend surveillance colonoscopy in 5 years; call sooner if problems/questions. Follow-up No qualifying data available Problem List/Past Medical History Ongoing Adenocarcinoma of endometrium Attention deficit hyperactivity disorder Bilateral proliferative retinopathy due to diabetes mellitus type 2 BMI 40.0-44.9, adult Class 3 obesity Diabetes mellitus Drug abuse in remission. Dyslipidemia Essential hypertension Gastroesophageal reflux disease Learning disability Mixed anxiety and depressive disorder Screening for malignant neoplasm of colon Steatosis of liver Tubular adenoma of rectum Historical No qualifying data Procedure/Surgical History Colonoscopy (06/04/2024), Extraction of wisdom tooth, Laparoscopy, Laser eye surgery, [facility] - Total abdominal hysterectomy and bilateral [...] Social History Alcohol Never., 05/24/2024 Substance Abuse Previous treatment: Outpatient., 06/17/2024 Past. Heroin, Prescription medications. Several times per day. Previous treatment: Outpatient., 05/24/2024 Tobacco Former smoker, quit more than 30 days ago Tobacco Use:. Never Smokeless Tobacco Use:. Cigarettes, 0.25 per day. Started age 18.0 Years. Stopped age 38 Years., 06/18/2024 Family History Alcoholism: Mother. Diabetes mellitus type 2: Mother, Father and Brother. Hypertension: Mother, Father and Brother. Immunizations Vaccine Date Status Comments SARS-CoV-2 (COVID-19) mRNAMUL.ORD![id number] 02/25/2022 Recorded SARSCoV2 mRNA(dvdhuitxo-vlkt-ehcvx s) vac 10/17/2021 Recorded SARS-CoV-2 (COVID-19) mRNA BNT-162b2 vax 04/06/2021 Recorded 2024-05-22: [id number] SARS-CoV-2 (COVID-19) Ad26 vaccine 07/01/[address] [facility] Comment on above: Result Comment: Elec tronically Signed By: RAMILA APODACA, Donell Lewis\Date and Time Signed: 06/18/24 13:02 EST Reminderson 06-18-2024 Reminders Reminders From: Xiomara Florian LPN To: N - Clinical; Sent: 06/18/2024 13:00:59 EST Show up: 05/04/2029 07:00:00 EST Subject: colonoscopy recall Due Date/Time: 06/04/2029 07:00:00 EST Reminder/Recall Patient due for surveillance colonoscopy 06/04/2029 due to history of tubular adenoma. Normal [facility] Sai 06-04-2024 L ----- Specimen: [id number] Received: 06/05/24 Status: ERUM Marks Num: [id number] Spec Type: Surgical Subm Dr: Donell Mcgrath MD FACS Tissues: A Colon Biopsy (RECTAL POLYP) Procedures: HE/2, Gross/Micro L4 Age/ Patient Sex Location Account Attending Physician Tasha Paul 48/F LABELL [id number] Donell Mcgrath MD FACS SPEC NUM: [id number] RECD: 06/05/24-1503 STATUS: ERUM MARKS NUM: [id number] VAL: 06/04/24-[facility] DR: Donell Mcgrath MD FACS ENTERED: 06/05/24-[address]: Ranjith,Lab SPEC TYPE: Surgical DEPT: [facility]UD[facility]RE ENTERED BY: [id number] RECV BY: [id number] ORDERED: HE/2, Gross/Micro L4 ORDERED: HE/2, Gross/Micro L4 Pathological Diagnosis Rectum, polypectomy: - Tubular adenoma. Clinical Information Rectal polyp Gross Description Received in formalin labeled with the patients name, date of , and rectal polyp are two acosta-dee, focally erythematous, friable, 0.4 cm each in greatest dimension polypoid fragments. The specimen is entirely submitted in a single cassette. (1, luiz, [id number] A) JG Microscopic Description Microscopic examination is performed. CPT Codes 63852 Specimen: [id number] Received: 06/05/24 Status: ERUM Key Num: [id number] Spec Type: Surgical Subm Dr: Donell Mcgrath MD FACS Tissues: A Colon Biopsy (RECTAL POLYP) Procedures: AMBER/Saul Sandhu/Lionel L4 Patient: Tasha Paul [id number] (Continued) Signed (signature on file) Ashish Albrecht MD 06/06/24 1214 Normal [facility] OCT FRANCESCA SANAZ SONIA (BOTH E YES)on 06-03-2024 [facility] Radiology Study observation (narrative) [facility] Ambulatory Visit Summaryon 0 05-27-2024 Ambulatory Visit Summary Ambulatory Visit Summary TASHA PAUL :1975 Visit Date:05/27/2024 Ambulatory Visit Instructions Your Diagnosis Screening for malignant neoplasm of colon Your Care Team Attending Physician - RAMILA APODACA, Donell Nix Primary Care Physician - SONYA MEJIA CNP [...] of wisdom tooth, Laparoscopy, Laser eye surgery, [facility] BSO - Total abdominal hysterectomy and bilateral [...] for choosing us for your care. Normal [facility] HbA1c HPLC (Bld) [Mass fract ion]on 03-03-2024 HbA1c (Bld) [Mass fraction] Hemoglobin A1c/Hemoglobin.total in Blood by HPLC [facility] No Panel Informationon 03-03 Bedside Glucose 166 [facility] ALL CBC WITH AUTO DIFFon BASOPHILS ABSOLUTE AUTO 0.1 [facility] Basophils/100 WBC (Bld) 0.9 % 0.2 - 2.0 % [facility] Eosinophils/100 WBC (Bld) 1.2 % 0.9 - 7.0 % [facility] Erythrocyte distribution width (RBC) [Ratio] 13.3 % 11.0 - 15.0 % [facility] Hematocrit (Bld) [Volume fraction] 43.0 % 36.0 - 48.0 % [facility] Hemoglobin (Bld) [Mass/Vol] 14.5 g/dL 12.0 - 16.0 g/dL [facility] IMMATURE GRANULOCYTES ABS AUTO 0.04 High [facility] Immature granulocytes/100 WBC (Bld) 0.3 % 0.0 - 0.5 % [facility] Interpretation and review of laboratory results Abnormal [facility] LYMPHOCYTES ABSOLUTE AUTO 3.9 High [facility] Lymphocytes/100 WBC (Bld) 32.0 % 20.5 - 60.0 % [facility] MCH (RBC) [Entitic mass] 28.8 pg 26.7 - 34.0 pg [facility] MCHC (RBC) [Mass/Vol] 33.7 g/dL 29.9 - 35.2 g/dL [facility] MCV (RBC) [Entitic vol] 85.5 fL 81.0 - 99.0 fL [facility] MONOCYTES ABSOLUTE AUTO 0.8 [facility] Monocytes/100 WBC (Bld) 6.3 % 1.7 - 12.0 % [facility] NEUTROPHILS ABSOLUTE AUTO 7.2 High [facility] Neutrophils/100 WBC (Bld) 59.3 % 43.0 - 75.0 % [facility] Platelet mean volume (Bld) [Entitic vol] 9.8 fL 9.5 - 13.5 fL [facility] EO # 0.1 [facility] PLT 311 [facility] RBC 5.03 [facility] WBC 12.1 High [facility] No Panel Informationon 01-21 Bedside Glucose 174 [facility] MICROALB CREAT RATIO RAN DOMon 01-22-2024 CREATININE URINE RANDOM 234.83 mg/dL 20.00 - 300.00 mg/dL [facility] MICROALBUM CREATININE RATIO UR 8.5 mg/g 0.0 - 29.9 mg/g [facility] Comment on above: NO MICROALBUMINURIA 0-29 MG/G CLINICAL MICROALBUMINURIA 30-300 MG/G MACROALBUMINURIA >300 MG/G MICROALBUMIN URINE RANDOM 2.0 mg/dL NINF - 30.0 mg/dL [facility] UA (CLEAN/CATCH) MICROS OPIC IF INDICATEon 01-22-2024 BILIRUBIN URINE Negative NEGATIVE [facility] BLOOD URINE Negative NEGATIVE [facility] Clarity (U) CLEAR CLEAR [facility] Color (U) YELLOW YELLOW [facility] GLUCOSE URINE UA 100 mg/dL Abnormal NEGATIVE [facility] Interpretation and review of laboratory results Abnormal [facility] Ketones Ql (U) Negative NEGATIVE mg/dL [facility] Leukocyte esterase Test strip Ql (U) Negative NEGATIVE [facility] NITRITE URINE Negative NEGATIVE [facility] pH (U) 5.5 [pH] 5.0 - 9.0 [facility] PROTEIN URINE Negative NEG/TRACE mg/dL [facility] SPECIFIC GRAVITY URINE >=1.030 Abnormal 1.005 - 1.025 [facility] URINE MICROSCOPIC INDICATED NO [facility] UROBILINOGEN URINE 0.2 EU/dL 0.2 - 1.0 EU/dL [facility] HbA1c HPLC (Bld) [Mass fract ion]on 11-26-2023 HbA1c (Bld) [Mass fraction] 8.4 % [facility] No Panel Informationon 11-25 Bedside Glucose 72 [facility] Alanine aminotransferase [En zymatic activity/volume] in Serum or PlasmaOrdered By: Glenna Quinones on 08-21-2023 ALT [Catalytic activity/Vol] 31 U/L Normal 7-52 [facility] Comment on above: Order Comment: PT DO ES NOT WANT VIT D, FAIL MED NECESSITY Reason for Exam Type 2 diabetes mellitus with hyperglycemia Performed By: #### T SH3 wRFLX, LDLD, LIPID, CMP, B12 #### [facility] [address] [place] [address] [place] Albumin [Mass/volume] in Ser um or Plasma by Bromocresol green (BCG) dye binding methoOrdered By: Glenna Quinones on 08-21-2023 Albumin BCG dye [Mass/Vol] 4.1 g/dL 3.5-5.7 [facility] Alkaline phosphatase [Enzyma tic activity/volume] in Serum or PlasmaOrdered By: Glenna Quinones on 08-21-2023 ALP [Catalytic activity/Vol] 84 U/L Normal 34-104 [facility] Comment on above: Order Comment: PT DO ES NOT WANT VIT D, FAIL MED NECESSITY Reason for Exam Type 2 diabetes mellitus with hyperglycemia Performed By: #### T SH3 wRFLX, LDLD, LIPID, CMP, B12 #### [facility] [address] [place] [address] [place] Aspartate aminotransferase [ Enzymatic activity/volume] in Serum or PlasmaOrdered By: Glenna Quinones on 08-21-2023 AST [Catalytic activity/Vol] 21 U/L Normal 13-39 [facility] Comment on above: Order Comment: PT DO ES NOT WANT VIT D, FAIL MED NECESSITY Reason for Exam Type 2 diabetes mellitus with hyperglycemia Performed By: #### T SH3 wRFLX, LDLD, LIPID, CMP, B12 #### [facility] [address] [place] [id number] [place] Bilirubin.total [Mass/volume ] in Serum or PlasmaOrdered By: Glenna Quinones on 08-21-2023 Bilirubin [Mass/Vol] 0.5 mg/dL Normal 0.3-1.0 [facility] Comment on above: Order Comment: PT DO ES NOT WANT VIT D, FAIL MED NECESSITY Reason for Exam Type 2 diabetes mellitus with hyperglycemia Performed By: #### T SH3 wRFLX, LDLD, LIPID, CMP, B12 #### [facility] [address] [place] [id number] [place] Calcium [Mass/volume] in Ser um or PlasmaOrdered By: Glenna Quinones on 08-21-2023 Calcium [Mass/Vol] 9.8 mg/dL Normal 8.6-10.3 [facility] Comment on above: Order Comment: PT DO ES NOT WANT VIT D, FAIL MED NECESSITY Reason for Exam Type 2 diabetes mellitus with hyperglycemia Performed By: #### T SH3 wRFLX, LDLD, LIPID, CMP, B12 #### [facility] [address] [place] [id number] [place] Carbon dioxide, total [Moles /volume] in Serum or PlasmaOrdered By: Glenna Quinones on 08-21-2023 CO2 [Moles/Vol] 30.1 mmol/L Normal 21.0-31.0 [facility] Comment on above: Order Comment: PT DO ES NOT WANT VIT D, FAIL MED NECESSITY Reason for Exam Type 2 diabetes mellitus with hyperglycemia Performed By: #### T SH3 wRFLX, LDLD, LIPID, CMP, B12 #### [facility] [address] [place] [id number] [place] Chloride [Moles/volume] in S cindy or PlasmaOrdered By: Glenna Quinones on 08-21-2023 Chloride [Moles/Vol] 102 mmol/L Normal 98-107 [facility] Comment on above: Order Comment: PT DO ES NOT WANT VIT D, FAIL MED NECESSITY Reason for Exam Type 2 diabetes mellitus with hyperglycemia Performed By: #### T SH3 wRFLX, LDLD, LIPID, CMP, B12 #### [facility] [address] [place] [address] [place] Cholesterol [Mass/volume] in Serum or PlasmaOrdered By: Glenna Quinones on 08-21-2023 Cholesterol [Mass/Vol] 245 mg/dL High 140-200 [facility] Comment on above: Chol less than 200 m g/dl low riskChol 201-239 mg/dl borderline riskChol 240 mg/dl and greater high risk Order Comment: PT DO ES NOT WANT VIT D, FAIL MED NECESSITY Reason for Exam Type 2 diabetes mellitus with hyperglycemia Result Comment: Chol less than 200 mg/dl low risk Chol 201-239 mg/dl borderline risk Chol 240 mg/dl and greater high risk Performed By: #### T SH3 wRFLX, LDLD, LIPID, CMP, B12 #### [facility] [address] [place] [address] [facility] Cholesterol in LDL Calc [Mas s/Vol]Ordered By: Glenna Quinones on 08-21-2023 Cholesterol in LDL [Mass/Vol] TNP [facility] Comment on above: Test not performed Cholesterol in LDL [Mass/vol ume] in Serum or PlasmaOrdered By: Glenna Quinones on 08-21-2023 Cholesterol in LDL [Mass/Vol] 173 mg/dL 0-100 [facility] Comment on above: LDL ATP III CLASSIFI CATIONLDL less than 100 mg/dL OptimalLDL 100-129 mg/dL Near or above optimalLDL 130-159 mg/dL Borderline highLDL 160-189 mg/dL HighLDL greater than 189 mg/dL Very high Cholesterol in VLDL Calc [Ma ss/Vol]Ordered By: Glenna Quinones on 08-21-2023 Cholesterol in VLDL [Mass/Vol] 91 mg/dL [facility] Comprehensive Metabolic Pane sai 08-21-2023 Albumin [Mass/Vol] 4.1 g/dL Normal 3.5-5.7 [facility] Comment on above: Order Comment: PT DO ES NOT WANT VIT D, FAIL MED NECESSITY Reason for Exam Type 2 diabetes mellitus with hyperglycemia Performed By: #### T SH3 wRFLX, LDLD, LIPID, CMP, B12 #### [facility] [address] [place] [address] [place] GFR/1.73 sq M.predicted MDRD (S/P/Bld) [Vol rate/Area] mL/min/{1.73_m2} Normal [facility] Comment on above: Order Comment: PT DO ES NOT WANT VIT D, FAIL MED NECESSITY Reason for Exam Type 2 diabetes mellitus with hyperglycemia Performed By: #### T SH3 wRFLX, LDLD, LIPID, CMP, B12 #### [facility] [address] [place] [id number] [place] Creatinine [Mass/volume] in Serum or PlasmaOrdered By: Glenna Quinones on 08-21-2023 Creatinine [Mass/Vol] 0.61 mg/dL Normal 0.60-1.20 [facility] Comment on above: Order Comment: PT DO ES NOT WANT VIT D, FAIL MED NECESSITY Reason for Exam Type 2 diabetes mellitus with hyperglycemia Performed By: #### T SH3 wRFLX, LDLD, LIPID, CMP, B12 #### [facility] [address] [place] [id number] [place] Glucose [Mass/volume] in Ser um or PlasmaOrdered By: Glenna Quinones on 08-21-2023 Glucose [Mass/Vol] 54 mg/dL Low 70-100 [facility] Comment on above: ADA recommended refe rence rangeRandom Glucose Reference Range is dependent on time and content of last meal. Glucose of more than 200 mg/dL in a nonstressed, ambulatory subject supports the diagnosis of Diabetes Mellitus. Order Comment: PT DO ES NOT WANT VIT D, FAIL MED NECESSITY Reason for Exam Type 2 diabetes mellitus with hyperglycemia Result Comment: [place] Glucose Reference Range is dependent on time and content of last meal. Glucose of more than 200 mg/dL in a nonstressed, ambulatory subject supports the diagnosis of Diabetes Mellitus. ADA recommended reference range Performed By: #### T SH3 wRFLX, LDLD, LIPID, CMP, B12 #### [facility] [address] [place] [id number] [place] LDL Cholesterol Measuredon 0 08-21-2023 LDL Cholesterol Measured 173 mg/dL High 0-100 [facility] Comment on above: Order Comment: PT DO ES NOT WANT VIT D, FAIL MED NECESSITY Reason for Exam Type 2 diabetes mellitus with hyperglycemia Result Comment: LDL ATP III CLASSIFICATION LDL less than 100 mg/dL Optimal LDL 100-129 mg/dL Near or above optimal LDL 130-159 mg/dL Borderline high LDL 160-189 mg/dL High LDL greater than 189 mg/dL Very high Performed By: #### T SH3 wRFLX, LDLD, LIPID, CMP, B12 #### [facility] [address] [place] [id number] [facility] Lipid Panelon 08-21-2023 LDL Cholesterol,Calculated Not performed Normal 0-100 [facility] Comment on above: Order Comment: PT DO ES NOT WANT VIT D, FAIL MED NECESSITY Reason for Exam Type 2 diabetes mellitus with hyperglycemia Performed By: #### T SH3 wRFLX, LDLD, LIPID, CMP, B12 #### [facility] [address] [place] [id number] [facility] Triglyceride w/Reflex 459 mg/dL High 0-149 [facility] Comment on above: Order Comment: PT DO ES NOT WANT VIT D, FAIL MED NECESSITY Reason for Exam Type 2 diabetes mellitus with hyperglycemia Result Comment: TRIG ATP III CLASSIFICATION TRIG less than 150 mg/dL Normal TRIG 150-199 mg/dL Borderline high TRIG 200-500 mg/dL High TRIG greater than 500 mg/dL Very high Standard traceable to the Center for Disease Conrtrol and Prevention (CDC) test method. If the triglyceride result is greater than 400, LDLC and related calculations cannot be calculated and resulted. Performed By: #### T SH3 wRFLX, LDLD, LIPID, CMP, B12 #### [facility] [address] [place] [id number] [facility] VLDL CHOLESTEROL 91 mg/dL Normal [facility] Comment on above: Order Comment: PT DO ES NOT WANT VIT D, FAIL MED NECESSITY Reason for Exam Type 2 diabetes mellitus with hyperglycemia Performed By: #### T SH3 wRFLX, LDLD, LIPID, CMP, B12 #### [facility] [address] [place] [id number] [facility] No Panel InformationOrdered By: Glenna Quinones on 08-21-2023 Estimated GFR (CKD-EPI) > 60.0 mL/Min [facility] Creatinine Clearance (Chem N/A [facility] No Panel Informationon 08-20 Bedside Glucose 129 [facility] Potassium [Moles/volume] in Serum or PlasmaOrdered By: Glenna Quinones on 08-21-2023 Potassium [Moles/Vol] 4.1 mmol/L Normal 3.5-5.1 [facility] Comment on above: Order Comment: PT DO ES NOT WANT VIT D, FAIL MED NECESSITY Reason for Exam Type 2 diabetes mellitus with hyperglycemia Performed By: #### T SH3 wRFLX, LDLD, LIPID, CMP, B12 #### [facility] [address] [place] [address] [place] Protein [Mass/volume] in Ser um or PlasmaOrdered By: Glenna Quinones on 08-21-2023 Protein [Mass/Vol] 6.8 g/dL Normal 6.4-8.9 [facility] Comment on above: Order Comment: PT DO ES NOT WANT VIT D, FAIL MED NECESSITY Reason for Exam Type 2 diabetes mellitus with hyperglycemia Performed By: #### T SH3 wRFLX, LDLD, LIPID, CMP, B12 #### [facility] [address] Serum globulin measurement b y calculation (mass/volume)Ordered By: Glenna Quinones on 08-21-2023 Globulin (S) [Mass/Vol] 2.7 g/dL [facility] Comment on above: Order Comment: PT DO ES NOT WANT VIT D, FAIL MED NECESSITY Reason for Exam Type 2 diabetes mellitus with hyperglycemia Performed By: #### T SH3 wRFLX, LDLD, LIPID, CMP, B12 #### [facility] [address] [place] [phone] [place] Serum or plasma albumin/glob ulin mass ratioOrdered By: Glenna Quinones on 08-21-2023 Albumin/Globulin [Mass ratio] 1.5 {ratio} [facility] Comment on above: Order Comment: PT DO ES NOT WANT VIT D, FAIL MED NECESSITY Reason for Exam Type 2 diabetes mellitus with hyperglycemia Performed By: #### T SH3 wRFLX, LDLD, LIPID, CMP, B12 #### [facility] [address] [place] [id number] [place] Serum or plasma anion gap de terminationOrdered By: Glenna Quinones on 08-21-2023 Anion gap [Moles/Vol] 14.0 mmol/L Normal 6.0-15.0 [facility] Comment on above: Order Comment: PT DO ES NOT WANT VIT D, FAIL MED NECESSITY Reason for Exam Type 2 diabetes mellitus with hyperglycemia Performed By: #### T SH3 wRFLX, LDLD, LIPID, CMP, B12 #### [facility] [address] Serum or plasma high density lipoprotein (HDL) cholesterol measurementOrdered By: Glenna Quinones on 08-21-2023 Cholesterol in HDL [Mass/Vol] 45 mg/dL Normal 23-92 [facility] Comment on above: HDL CHOL ATP-III CLA SSIFICATION Cardiovascular RiskHDL > or equal to 60 mg/dL LOWHDL < 40 mg/dL HIGH Order Comment: PT DO ES NOT WANT VIT D, FAIL MED NECESSITY Reason for Exam Type 2 diabetes mellitus with hyperglycemia Result Comment: HDL CHOL ATP-III CLASSIFICATION Cardiovascular Risk HDL > or equal to 60 mg/dL LOW HDL < 40 mg/dL HIGH Performed By: #### T SH3 wRFLX, LDLD, LIPID, CMP, B12 #### [facility] [address] Serum or plasma total choles terol/high density lipoprotein (HDL) cholesterol mass ratOrdered By: Glenna Quinones on 08-21-2023 Cholesterol.total/Chol esterol in HDL [Mass ratio] 5.4 {ratio} Normal <5.0 [facility] Comment on above: Order Comment: PT DO ES NOT WANT VIT D, FAIL MED NECESSITY Reason for Exam Type 2 diabetes mellitus with hyperglycemia Performed By: #### T SH3 wRFLX, LDLD, LIPID, CMP, B12 #### [facility] [address] Sodium [Moles/volume] in Ser um or PlasmaOrdered By: Glenna Quinones on 08-21-2023 Sodium [Moles/Vol] 142 mmol/L Normal 136-145 [facility] Comment on above: Order Comment: PT DO ES NOT WANT VIT D, FAIL MED NECESSITY Reason for Exam Type 2 diabetes mellitus with hyperglycemia Performed By: #### T SH3 wRFLX, LDLD, LIPID, CMP, B12 #### [facility] [address] [place] [address] Thyroid Stim Hormone w/Rflxo n 08-21-2023 Thyroid Stim Hormone w/Rflx 1.85 u[iU]/mL Normal 0.45-5.33 [facility] Comment on above: Order Comment: PT DO ES NOT WANT VIT D, FAIL MED NECESSITY Reason for Exam Type 2 diabetes mellitus with hyperglycemia Result Comment: PERF ORMED BY: [place] [address] PATHOLOGIST SURFACE MINER HILARIA REES M.D. Performed By: #### T SH3 wRFLX, LDLD, LIPID, CMP, B12 #### [facility] [address] [place] [address] Thyrotropin [Units/volume] i n Serum or PlasmaOrdered By: Glenna Quinones on 08-21-2023 TSH Qn 1.85 m[IU]/L 0.45-5.33 [facility] Triglyceride [Mass/volume] i n Serum or PlasmaOrdered By: Glenna Quinones on 08-21-2023 Triglyceride [Mass/Vol] 459 mg/dL 0-149 [facility] Comment on above: If the [...] on 08-21-2023 Urea nitrogen [Mass/Vol] 22 mg/dL Normal 7-25 [facility] Comment on above: Order Comment: PT DO ES NOT WANT VIT D, FAIL MED NECESSITY Reason for Exam Type 2 diabetes mellitus with hyperglycemia Performed By: #### T SH3 wRFLX, LDLD, LIPID, CMP, B12 #### [facility] [address] [place] [address] Vitamin B12 ser/plasOrdered By: Glenna Quinones on 08-21-2023 Cobalamin (Vitamin B12) [Mass/Vol] 507 pg/mL Normal 180-914 [facility] Comment on above: Order Comment: PT DO ES NOT WANT VIT D, FAIL MED NECESSITY Reason for Exam Type 2 diabetes mellitus with hyperglycemia Performed By: #### T SH3 wRFLX, LDLD, LIPID, CMP, B12 #### [facility] [address] Laboratory - Hematology and Cell countson 05-28-2023 HbA1c (Bld) [Mass fraction] 10.1 % [facility] A1C HEMOGLOBINon 02-19-2023 HbA1c (Bld) [Mass fraction] 8.6 % [email or web address] Other Glucose - FINGER STICKon Glucose [Mass/Vol] 160 mg/dL [email or web address] Other HbA1c (Bld) [Mass fraction]o n 02-19-2023 A1C HEMOGLOBIN [facility] nodila Other Actin smooth muscle IgG Ab [ Units/volume] in SerumOrdered By: Mark rGamajo on 12-04-2022 Actin smooth muscle IgG Qn (S) 6 Units 0-19 [facility] Comment on above: Negative 0 - 19 Weak positive 20 - 30 Moderate to strong positive >30 Actin Antibodies are found in 52-85% of patients with autoimmune hepatitis or chronic active hepatitis and in 22% of patients with primary biliary cirrhosis. Alanine aminotransferase [En zymatic activity/volume] in Serum or PlasmaOrdered By: Mark Gramajo on 12-04-2022 ALT [Catalytic activity/Vol] 15 U/L 7-52 [facility] Albumin [Mass/volume] in Ser um or Plasma by Bromocresol green (BCG) dye binding methoOrdered By: Mark Gramajo on 12-04-2022 Albumin BCG dye [Mass/Vol] 3.9 g/dL 3.5-5.7 [facility] Alkaline phosphatase [Enzyma tic activity/volume] in Serum or PlasmaOrdered By: Mark Gramajo on 12-04-2022 ALP [Catalytic activity/Vol] 83 U/L 34-104 [facility] Amylase [Enzymatic activity/ volume] in Serum or PlasmaOrdered By: Mark Gramajo on 12-04-2022 Amylase [Catalytic activity/Vol] 33 U/L 29-103 [facility] Aspartate aminotransferase [ Enzymatic activity/volume] in Serum or PlasmaOrdered By: Mark Gramajo on 12-04-2022 AST [Catalytic activity/Vol] 10 U/L 13-39 [facility] Basophils Auto (Bld) [#/Vol] Ordered By: Mark Gramajo on 12-04-2022 Basophils (Bld) [#/Vol] 0.1 10*3/uL 0.0-0.2 [facility] Basophils/100 WBC Auto (Bld) Ordered By: Mark Gramajo on 12-04-2022 Basophils/100 WBC (Bld) 0.7 % . [facility] Bilirubin.direct [Mass/volum e] in Serum or PlasmaOrdered By: Mark Gramajo on 12-04-2022 Bilirubin.direct [Mass/Vol] 0.10 mg/dL 0.03-0.18 [facility] Bilirubin.total [Mass/volume ] in Serum or PlasmaOrdered By: Mark Gramajo on 12-04-2022 Bilirubin [Mass/Vol] 0.4 mg/dL 0.3-1.0 [facility] Cholesterol [Mass/volume] in Serum or PlasmaOrdered By: Mark Gramajo on 12-04-2022 Cholesterol [Mass/Vol] 219 mg/dL 140-200 [facility] Comment on above: Chol less than 200 m g/dl low riskChol 201-239 mg/dl borderline riskChol 240 mg/dl and greater high risk Cholesterol in LDL Calc [Mas s/Vol]Ordered By: Mark Gramajo on 12-04-2022 Cholesterol in LDL [Mass/Vol] 131 mg/dL 0-100 [facility] Comment on above: LDL ATP III CLASSIFI CATIONLDL less than 100 mg/dL OptimalLDL 100-129 mg/dL Near or above optimalLDL 130-159 mg/dL Borderline highLDL 160-189 mg/dL HighLDL greater than 189 mg/dL Very high Cholesterol in VLDL Calc [Ma ss/Vol]Ordered By: Mark Gramajo on 12-04-2022 Cholesterol in VLDL [Mass/Vol] 37 mg/dL [facility] Eosinophils Auto (Bld) [#/Vo l]Ordered By: Mark Gramajo on 12-04-2022 Eosinophils (Bld) [#/Vol] 0.3 10*3/uL 0.0-0.45 [facility] Eosinophils/100 WBC Auto (Bl d)Ordered By: Mark Gramajo on 12-04-2022 Eosinophils/100 WBC (Bld) 2.2 % . [facility] Erythrocyte distribution wid th Auto (RBC) [Ratio]Ordered By: Mark Gramajo on 12-04-2022 Erythrocyte distribution width (RBC) [Ratio] 13.7 % 11.9-15.3 [facility] Ferritin [Mass/volume] in Se rum or PlasmaOrdered By: Mark Gramajo on 12-04-2022 Ferritin [Mass/Vol] 56.2 ng/mL 11.0-306.8 [facility] Globulin Calc (S) [Mass/Vol] Ordered By: Mark Gramajo on 12-04-2022 Globulin (S) [Mass/Vol] 3.1 g/dL [facility] Hematocrit Auto (Bld) [Volum e fraction]Ordered By: Mark Gramajo on 12-04-2022 Hematocrit (Bld) [Volume fraction] 41.4 % 34.0-46.4 [facility] Hemoglobin [Mass/volume] in BloodOrdered By: Mark Gramajo 12-04-2022 Hemoglobin (Bld) [Mass/Vol] 13.7 g/dL 11.8-15.4 [facility] Hepatitis B virus surface Ag [Presence] in Serum or Plasma by ImmunoassayOrdered By: Mark Gramajo on 12-04-2022 HBV surface Ag IA Ql Negative Negative [facility] INR in Platelet poor plasma by Coagulation assayOrdered By: Mark Gramajo on 12-04-2022 INR Coag (PPP) [Relative time] 1.0 {INR} [facility] Comment on above: INR Therapeutic [...] on 12-04-2022 Iron [Mass/Vol] 51 ug/dL 50-212 [facility] Iron binding capacity [Mass/ volume] in Serum or PlasmaOrdered By: Mark Gramajo on 12-04-2022 Iron binding capacity [Mass/Vol] 364 ug/dL 255-450 [facility] Iron saturation [Mass Fracti on] in Serum or PlasmaOrdered By: Mark Gramajo on 12-04-2022 Iron saturation [Mass fraction] 14.0 % 20-50 [facility] Laboratory - CoagulationOrde red By: Mark Gramajo on 12-04-2022 PT Coag (PPP) [Time] 11.3 s 9.0-12.9 [facility] Leukocytes [#/volume] correc tu for nucleated erythrocytes in Blood by Automated counOrdered By: Mark Gramajo on 12-04-2022 WBC corrected for nucl RBC Auto (Bld) [#/Vol] 12.3 10*3/uL 3.8-11.6 [facility] Lipase [Enzymatic activity/v olume] in Serum or PlasmaOrdered By: Mark Gramajo on 12-04-2022 Lipase [Catalytic activity/Vol] 18.0 U/L 11.0-82.0 [facility] Lymphocytes Auto (Bld) [#/Vo l]Ordered By: Mark Gramajo on 12-04-2022 Lymphocytes (Bld) [#/Vol] 2.8 10*3/uL 1.00-4.8 [facility] Lymphocytes/100 WBC Auto (Bl d)Ordered By: Mark Gramajo on 12-04-2022 Lymphocytes/100 WBC (Bld) 22.5 % . [facility] MCH Auto (RBC) [Entitic mass ]Ordered By: Mark Gramajo on 12-04-2022 MCH (RBC) [Entitic mass] 28.7 pg 24.7-34.3 [facility] MCHC Auto (RBC) [Mass/Vol]Or dered By: Mark Gramajo on 12-04-2022 MCHC (RBC) [Mass/Vol] 33.2 g/dL 32.0-35.0 [facility] MCV Auto (RBC) [Entitic vol] Ordered By: Mark Gramajo on 12-04-2022 MCV (RBC) [Entitic vol] 86.4 fL 80-100 [facility] Monocytes Auto (Bld) [#/Vol] Ordered By: Mark Gramajo on 12-04-2022 Monocytes (Bld) [#/Vol] 0.8 10*3/uL 0.0-0.8 [facility] Monocytes/100 WBC Auto (Bld) Ordered By: Mark Gramajo on 12-04-2022 Monocytes/100 WBC (Bld) 6.7 % . [facility] Neutrophils Auto (Bld) [#/Vo l]Ordered By: Mark Gramajo on 12-04-2022 Neutrophils (Bld) [#/Vol] 8.4 10*3/uL 1.8-7.7 [facility] Neutrophils/100 WBC Auto (Bl d)Ordered By: Mark Gramajo on 12-04-2022 Neutrophils/100 WBC (Bld) 67.9 % . [facility] No Panel InformationOrdered By: Mark Gramajo on 12-04-2022 Hepatitis B Core Total Antibody Negative Negative [facility] Comment on above: Performed at: [address] [id number] Director: Iftikhar Romero PhD, Phone: [phone] Hepatitis C RNA Quantitative N/A [facility] Nucleated erythrocytes [Pres ence] in Blood by Automated countOrdered By: Mark Gramajo on 12-04-2022 Nucleated RBC Auto Ql (Bld) 0.0 /100{WBC} 0-0.5 [facility] Platelet mean volume Auto (B ld) [Entitic vol]Ordered By: Mark Gramajo on 12-04-2022 Platelet mean volume (Bld) [Entitic vol] 7.7 fL 6.3-10.7 [facility] Platelets Auto (Bld) [#/Vol] Ordered By: Mark Gramajo on 12-04-2022 Platelets (Bld) [#/Vol] 303 10*3/uL 150-450 [facility] Protein [Mass/volume] in Ser um or PlasmaOrdered By: Mark Gramajo on 12-04-2022 Protein [Mass/Vol] 7.0 g/dL 6.4-8.9 [facility] RBC Auto (Bld) [#/Vol]Ordere d By: Mark Gramajo on 12-04-2022 RBC (Bld) [#/Vol] 4.79 10*6/uL 3.60-5.00 [facility] Serum hepatitis B virus surf yessy antibody detectionOrdered By: Mark Gramajo on 12-04-2022 HBV surface Ab Ql (S) Non-Reactive . [facility] Comment on above: Non Reactive: Incons istent with immunity, less than 10 mIU/mL Reactive: Consistent with immunity, greater than 9.9 mIU/mL Serum or plasma albumin/glob ulin mass ratioOrdered By: Mark Gramajo on 12-04-2022 Albumin/Globulin [Mass ratio] 1.3 {ratio} [facility] Serum or plasma ceruloplasmi n measurement (mass/volume)Ordered By: Mark Gramajo on 12-04-2022 Ceruloplasmin [Mass/Vol] 33.7 mg/dL 19.0-39.0 [facility] Comment on above: Performed at: [email or web address] [place] [id number] Director: Iftikhar Romero PhD, Phone: [phone] Serum or plasma free cefurox jocy measurement (mass/volume)Ordered By: Mark Gramajo on 12-04-2022 Cefuroxime free [Mass/Vol] Negative Negative [facility] Comment on above: Performed at: [id number] [place], [place] [id number] Director: Iftikhar Romero PhD, Phone: [phone] Serum or plasma high density lipoprotein (HDL) cholesterol measurementOrdered By: Mark Gramajo on 12-04-2022 Cholesterol in HDL [Mass/Vol] 50 mg/dL 23-92 [facility] Comment on above: HDL CHOL ATP-III CLA SSIFICATION Cardiovascular RiskHDL > or equal to 60 mg/dL LOWHDL < 40 mg/dL HIGH Serum or plasma non-glucuron idated bilirubin measurement (mass/volume)Ordered By: Mark Gramajo on 12-04-2022 Bilirubin.indirect [Mass/Vol] 0.3 mg/dL [facility] Serum or plasma total choles terol/high density lipoprotein (HDL) cholesterol mass ratOrdered By: Mark Gramajo on 12-04-2022 Cholesterol.total/Chol esterol in HDL [Mass ratio] 4.4 {ratio} <5.0 [facility] Transferrin [Mass/volume] in Serum or PlasmaOrdered By: Mark Gramajo on 12-04-2022 Transferrin [Mass/Vol] 260 mg/dL 203-362 [facility] Triglyceride [Mass/volume] i n Serum or PlasmaOrdered By: Mark Gramajo on 12-04-2022 Triglyceride [Mass/Vol] 189 mg/dL 0-149 [facility] Comment on above: TRIG ATP III CLASSIF ICATIONTRIG less than 150 mg/dL NormalTRIG 150-199 mg/dL Borderline highTRIG 200-500 mg/dL High TRIG greater than 500 mg/dL Very highStandard traceable to the Center for Disease Conrtrol and Prevention (CDC) test method. WBC Auto (Bld) [#/Vol]Ordere d By: Mark Gramajo on 12-04-2022 WBC (Bld) [#/Vol] 12.3 10*3/uL 3.8-11.6 [facility] Glucose - FINGER STICKon Glucose [Mass/Vol] 197 mg/dL [email or web address] Other A1C HEMOGLOBINon 08-30-2022 HbA1c (Bld) [Mass fraction] 7.4 % [employer] Other Glucose - FINGER STICKon Glucose [Mass/Vol] 144 mg/dL [email or web address] Other HbA1c (Bld) [Mass fraction]o n 08-30-2022 A1C HEMOGLOBIN [facility] Other US SINGLE QUAD RT UPPERon US [...] VALERIANO SINCLAIR Date: 2022-08-11 11:38 Normal [facility] ACETONE SERUMon 08-07-2022 ACETONE Negative Normal NEGATIVE [facility] Comment on above: Performed By: #### A CETON #### [facility] [address] [place] [address] Dr. Annabelle Kilgore CBC AUTO DIFFon 08-07-2022 BASO # 0.1 103/ul Normal 0.0-0.1 [facility] Comment on above: Performed By: #### C BC #### [facility] [address] [place] [address] Dr. Annabelle Kilgore Basophils/100 WBC (Bld) 0.7 % Normal 0.2-2.0 [facility] Comment on above: Performed By: #### C BC #### [facility] [address] [place] [address] Dr. Annabelle Kilgore EO # 0.1 103/ul Normal 0.0-0.7 [facility] Comment on above: Performed By: #### C BC #### [facility] [address] [place] [address] Dr. Annabelle Kilgore Eosinophils/100 WBC (Bld) 0.7 % Critically low 0.9-7.0 [facility] Comment on above: Performed By: #### C BC #### [facility] [address] [place] [address] Dr. Annabelle Kilgore Erythrocyte distribution width (RBC) [Ratio] 12.7 % Normal 11.0-15.0 [facility] Comment on above: Performed By: #### C BC #### [facility] [address] [place] [address] Dr. Annabelle Kilgore Hematocrit (Bld) [Volume fraction] 38.9 % Normal 36.0-48.0 [facility] Comment on above: Performed By: #### C BC #### [facility] [address] [place] [address] Dr. Annabelle Kilgore Hemoglobin (Bld) [Mass/Vol] 13.4 g/dL Normal 12.0-16.0 [facility] Comment on above: Performed By: #### C BC #### [facility] [address] [place] [address] Dr. Annabelle Kilgore IG # 0.05 10e3/ul Critically high 0.00-0.03 [facility] Comment on above: Performed By: #### C BC #### [facility] [address] [place] [address] Dr. Annabelle Kilgore IG % 0.4 % Normal 0.0-0.5 [facility] Comment on above: Performed By: #### C BC #### [facility] [address] [place] [address] Dr. Annabelle Kilgore LYMPH # 3.5 103/ul Normal 1.2-3.8 [facility] Comment on above: Performed By: #### C BC #### [facility] [address] [place] [address] Dr. Annabelle Kilgore Lymphocytes/100 WBC (Bld) 25.1 % Normal 20.5-60.0 [facility] Comment on above: Performed By: #### C BC #### [facility] [address] [place] [address] Dr. Annabelle Kilgore MANUAL DIFF REQ NO Normal [facility] Comment on above: Performed By: #### C BC #### [facility] [address] [address] [address] Annabelle Kilgore MCH (RBC) [Entitic mass] 29.5 pg Normal 26.7-34.0 [facility] Comment on above: Performed By: #### C BC #### [facility] [address] [place] [address] Dr. Annabelle Kilgore MCHC (RBC) [Mass/Vol] 34.4 g/dL Normal 29.9-35.2 [facility] Comment on above: Performed By: #### C BC #### [facility] [address] [place] [address] Dr. Annabelle Kilgore MCV (RBC) [Entitic vol] 85.7 fL Normal 81.0-99.0 [facility] Comment on above: Performed By: #### C BC #### [facility] [address] [place] [address] Dr. Annabelle Kilgore MONO # 1.1 103/ul Critically high 0.3-0.8 [facility] Comment on above: Performed By: #### C BC #### [facility] [address] [place] [address] Dr. Annabelle Kilgore Monocytes/100 WBC (Bld) 7.8 % Normal 1.7-12.0 [facility] Comment on above: Performed By: #### C BC #### [facility] [address] [place] [address] Dr. Annabelle Kilgore NEUT # 9.2 103/ul Critically high 1.4-6.5 [facility] Comment on above: Performed By: #### C BC #### [facility] [address] [place] [address] Dr. Annabelle Kilgore Neutrophils/100 WBC (Bld) 65.3 % Normal 43.0-75.0 [facility] Comment on above: Performed By: #### C BC #### [facility] [address] [place] [address] Dr. Annabelle Kilgore Platelet mean volume (Bld) [Entitic vol] 9.8 fL Normal 9.5-13.5 [facility] Comment on above: Performed By: #### C BC #### [facility] [address], [place] [address] Dr. Annabelle Kilgore PLT 326 103/ul Normal 150-450 [facility] Comment on above: Performed By: #### C BC #### [facility] [address] [id number] [address] Annabelle Kilgore RBC 4.54 106/ul Normal 4.20-5.40 [facility] Comment on above: Performed By: #### C BC #### [facility] [address], [place] [address] Dr. Annabelle Kilgore WBC 14.0 103/ul Critically high 4.0-11.0 [facility] Comment on above: Performed By: #### C BC #### [facility] [address] [id number] Annabelle Kilgore CT ABD/PELVIS WO CONon [...] Sharad PATEL Date: 2022-08-07 02:10 Normal [facility] ER URINE PROFILEon 3 Bilirubin Ql (U) SMALL Abnormal NEGATIVE [facility] Comment on above: Performed By: #### E RUR #### [facility] [address] [place] [address] Dr. Annabelle Kilgore Clarity (U) SL CLOUDY Abnormal CLEAR [facility] Comment on above: Performed By: #### E RUR #### [facility] [address] [place] [address] Dr. Annabelle Kilgore Color (U) LT. YELLOW Normal YELLOW [facility] Comment on above: Performed By: #### E RUR #### [facility] [address] [place] [address] Dr. Annabelle Kilgore ERUAHD A micrscopic examina tion will be performed if indicated. Normal [facility] Comment on above: Performed By: #### E RUR #### [facility] [address] [place] [address] Dr. Annabelle Kilgore Glucose Ql (U) Negative Normal NEGATIVE [facility] Comment on above: Performed By: #### E RUR #### [facility] [address] [place] [address] Dr. Annabelle Kilgore Hemoglobin Ql (U) Negative Normal NEGATIVE [facility] Comment on above: Performed By: #### E RUR #### [facility] [address] [place] [address] Dr. Annabelle Kilgore Ketones Ql (U) 15 mg/dl Abnormal NEGATIVE [facility] Comment on above: Performed By: #### E RUR #### [facility] [address] [place] [address] Dr. Annabelle Kilgore LEUKOCYTES Negative Normal NEGATIVE [facility] Comment on above: Performed By: #### E RUR #### [facility] [address] [place] [address] Dr. Annabelle Kilgore Nitrite Ql (U) Negative Normal NEGATIVE [facility] Comment on above: Performed By: #### E RUR #### [facility] [address] [place] [address] Dr. Annabelle Kilgore pH (U) 5.5 [pH] Normal 5-9 [facility] Comment on above: Performed By: #### E RUR #### [facility] [address] [place] [address] Dr. Annabelle Kilgore SPEC GRAVITY 1.030 Abnormal 1.005-<=1. 025 [facility] Comment on above: Performed By: #### E RUR #### [facility] [address] [place] [address] Dr. Annabelle Kilgore UA PROTEIN Negative Normal NEGATIVE/ TRACE [facility] Comment on above: Performed By: #### E RUR #### [facility] [address] [place] [address] Dr. Annabelle Kilgore UR MICRO IND NOT INDICATED Normal [facility] Comment on above: Performed By: #### E RUR #### [facility] [address] [place] [address] Dr. Annabelle Kilgore Urobilinogen Qn (U) 0.2 {Floyd'U}/dL Normal 0.2 - 1. 0 [facility] Comment on above: Performed By: #### E RUR #### [facility] [address] [place] [address] Dr. Annabelle Kilgore LACTATE/LACTIC ACIDon 2022 Lactate [Moles/Vol] 1.1 mmol/L Normal 0.4-2.0 [facility] Comment on above: Performed By: #### L ACT #### [facility] [address] [place] [address] Dr. Annabelle Kilgore LIPASEon 08-07-2022 Lipase [Catalytic activity/Vol] 37.0 U/L Critically low 73.0-393.0 [facility] Comment on above: Performed By: #### L IPA #### [facility] [address] [address] [address] Annabelle Kilgore PH VENOUS BLOODon 08-07-2022 PCO2 VENOUS 37.0 mmHg Critically low 40.0-52.0 [facility] Comment on above: Performed By: #### P HVEN ####[facility] [id number] [id number]. Annabelle Kilgore pH VENOUS 7.415 Normal 7.330-7.43 0 [facility] Comment on above: Performed By: #### P HVEN ####[facility] [id number] [address]Dr. Annabelle Kilgore PROF 14(COMP METB)on 023 Albumin [Mass/Vol] 3.5 g/dL Normal 3.4-5.0 [facility] Comment on above: Performed By: #### C GÉNESIS HSTROPN #### [facility] [address] [address] [address] Annabelle Kilgore Albumin/Globulin [Mass ratio] 0.9 {ratio} Normal [facility] Comment on above: Performed By: #### C GÉNESIS HSTROPN #### [facility] [address] [address] [address] Annabelle Kilgore ALP [Catalytic activity/Vol] 82 U/L Normal 46-116 [facility] Comment on above: Performed By: #### C GÉNESIS HSTROPN #### [facility] [address] [address] [address] Annabelle Kilgore ALT [Catalytic activity/Vol] 35 U/L Normal 14-59 [facility] Comment on above: Performed By: #### C GÉNESIS HSTROPN #### [facility] [address] [address] [address] Annabelle Kilgore Anion gap [Moles/Vol] 18.2 mmol/L Normal [facility] Comment on above: Performed By: #### C GÉNESIS HSTROPN #### [facility] [address] [address] [address] Annabelle Kilgore AST [Catalytic activity/Vol] 21 U/L Normal 15-37 [facility] Comment on above: Performed By: #### C GÉNESIS, HSTROPN #### [facility] [address] [address] [address] Annabelle Kilgore Bilirubin [Mass/Vol] 0.5 mg/dL Normal 0.2-1.0 [facility] Comment on above: Performed By: #### C MP, HSTROPN #### [facility] [address] [address] [address] Annabelle Kilgore Calcium [Mass/Vol] 9.2 mg/dL Normal 8.5-10.1 [facility] Comment on above: Performed By: #### C GÉNESIS, HSTROPN #### [facility] [address] [place] [address] Dr. Annabelle Kilgore Chloride [Moles/Vol] 104 mmol/L Normal 98-107 [facility] Comment on above: Performed By: #### C GÉNESIS, HSTROPN #### [facility] [address] [address] [address] Annabelle Kilgore CO2 [Moles/Vol] 23.1 mmol/L Normal 21.0-32.0 [facility] Comment on above: Performed By: #### C GÉNESIS, HSTROPN #### [facility] [address] [place] [address] Dr. Annabelle Kilgore Creatinine [Mass/Vol] 0.65 mg/dL Normal 0.55-1.02 [facility] Comment on above: Performed By: #### C MP, HSTROPN #### [facility] [address] [place] [address] Dr. Annabelle Kilgore EGFR-AF CITIZEN OF [place] >60 Normal >=60 [facility] Comment on above: Performed By: #### C MP, HSTROPN #### [facility] [address] [place] [address] Dr. Annabelle Kilgore EGFR-NON AF CITIZEN OF [place] >60 Normal >=60 [facility] Comment on above: Performed By: #### C MP, HSTROPN #### [facility] [address] [address] [address] Annabelle Kilgore Globulin (S) [Mass/Vol] 3.9 g/dL Normal [facility] Comment on above: Performed By: #### C MP, HSTROPN #### [facility] [address] [address] [address] Annabelle Kilgore Glucose [Mass/Vol] 122 mg/dL Critically high 74-106 T [facility] Comment on above: Performed By: #### C MP, HSTROPN #### [facility] [address] [address] [address] Annabelle Kilgore Potassium [Moles/Vol] 3.3 mmol/L Critically low 3.5-5.1 [facility] Comment on above: Performed By: #### C MP, HSTROPN #### [facility] [address] [place] [address] Dr. Annabelle Kilgore Protein [Mass/Vol] 7.4 g/dL Normal 6.4-8.2 [facility] Comment on above: Performed By: #### C MP, HSTROPN #### [facility] [address] [address] [address] Annabelle Kilgore Sodium [Moles/Vol] 142 mmol/L Normal 136-145 [facility] Comment on above: Performed By: #### C MP, HSTROPN #### [facility] [address] [address] [address] Annabelle Kilgore Urea nitrogen [Mass/Vol] 15.0 mg/dL Normal 7.0-18.0 [facility] Comment on above: Performed By: #### C MP, HSTROPN #### [facility] [address] [address] [address] Annabelle Kilgore Urea nitrogen/Creatinine [Mass ratio] 23.1 mg/mg Normal [facility] Comment on above: Performed By: #### C MP, HSTROPN #### [facility] [address] [address] [address] Annabelle Kilgore TROPONIN, HIGH SENSITIVITYon 04-17-2023 HSTROP 30.1 pg/mL Normal 4.0-51.3 [facility] Comment on above: Result Comment: CUT- OFF POINTS HAVE BEEN ESTABLISHED BASED ON THE FOURTH UNIVERSAL DEFINITIONS OF MYOCARDIAL INFARCTION. THE UPPER REFERENCE LIMIT (URL) OF TROPONIN, DEFINED THE 99TH PERCENTILE OF cTnI DISTRIBUTION IN A REFERENCE POPULATION, HAS BEEN CONFIRMED THE DECISION THRESHOLD FOR MD DIAGNOSIS. Performed By: #### C MP, HSTROPN #### [facility] [address], [place] [address] Dr. Annabelle Kilgore MG MAMM SCREEN 3D HECTOR CADon 08-04-2022 MG MAMM SCREEN 3D HECTOR CAD Patient: TASHA PAUL Exam Date: 08/04/2022 : 1975 Gender:F Ordering : DENISE SONYASiddhartha MEJIA [facility] Admission #: [id number] Family : Order #: [id number] CLICK HERE TO VIEW EXAM RADIOLOGY REPORT [...] ovarian cancer at age 42. LOCATION: [facility] BREAST COMPOSITION: Scattered areas fibroglandular [...] MD on 08/07/2022 at 10:05 Normal [facility] Alanine aminotransferase [En zymatic activity/volume] in Serum or PlasmaOrdered By: Glenna Quinones on 07-19-2022 ALT [Catalytic activity/Vol] 25 U/L 7-52 [facility] Albumin [Mass/volume] in Ser um or Plasma by Bromocresol green (BCG) dye binding methoOrdered By: Glenna Quinones on 07-19-2022 Albumin BCG dye [Mass/Vol] 4.2 g/dL 3.5-5.7 [facility] Alkaline phosphatase [Enzyma tic activity/volume] in Serum or PlasmaOrdered By: Glenna Quinones on 07-19-2022 ALP [Catalytic activity/Vol] 84 U/L 34-104 [facility] Aspartate aminotransferase [ Enzymatic activity/volume] in Serum or PlasmaOrdered By: Glenna Quinones on 07-19-2022 AST [Catalytic activity/Vol] 17 U/L 13-39 [facility] Bilirubin.total [Mass/volume ] in Serum or PlasmaOrdered By: Glenna Quinones on 07-19-2022 Bilirubin [Mass/Vol] 0.6 mg/dL 0.3-1.0 [facility] Calcium [Mass/volume] in Ser um or PlasmaOrdered By: Glenna Quinones on 07-19-2022 Calcium [Mass/Vol] 9.6 mg/dL 8.6-10.3 [facility] Carbon dioxide, total [Moles /volume] in Serum or PlasmaOrdered By: Glenna Quinones on 07-19-2022 CO2 [Moles/Vol] 26.4 mmol/L 21.0-31.0 [facility] Chloride [Moles/volume] in S cindy or PlasmaOrdered By: Glenna Quinones on 07-19-2022 Chloride [Moles/Vol] 102 mmol/L 98-107 [facility] Cholesterol [Mass/volume] in Serum or PlasmaOrdered By: Glenna Quinones on 07-19-2022 Cholesterol [Mass/Vol] 144 mg/dL 140-200 [facility] Comment on above: Chol less than 200 m g/dl low riskChol 201-239 mg/dl borderline riskChol 240 mg/dl and greater high risk Cholesterol in LDL Calc [Mas s/Vol]Ordered By: Glenna Quinones on 07-19-2022 Cholesterol in LDL [Mass/Vol] 66 mg/dL 0-100 [facility] Comment on above: LDL ATP III CLASSIFI CATIONLDL less than 100 mg/dL OptimalLDL 100-129 mg/dL Near or above optimalLDL 130-159 mg/dL Borderline highLDL 160-189 mg/dL HighLDL greater than 189 mg/dL Very high Cholesterol in VLDL Calc [Ma ss/Vol]Ordered By: Glenna Quinones on 07-19-2022 Cholesterol in VLDL [Mass/Vol] 33 mg/dL [facility] Creatinine [Mass/volume] in Serum or PlasmaOrdered By: Glenna Quinones on 07-19-2022 Creatinine [Mass/Vol] 0.52 mg/dL 0.60-1.20 [facility] Creatinine [Mass/volume] in UrineOrdered By: Glenna Quinones on 07-19-2022 Creatinine (U) [Mass/Vol] 146.0 mg/dL [facility] Comment on above: No reference range e stablished Globulin Calc (S) [Mass/Vol] Ordered By: Glenna Quinones on 07-19-2022 Globulin (S) [Mass/Vol] 2.9 g/dL [facility] Glucose [Mass/volume] in Ser um or PlasmaOrdered By: Glenna Quinones on 07-19-2022 Glucose [Mass/Vol] 140 mg/dL 70-100 [facility] Comment on above: ADA recommended refe rence rangeRandom Glucose Reference Range is dependent on time and content of last meal. Glucose of more than 200 mg/dL in a nonstressed, ambulatory subject supports the diagnosis of Diabetes Mellitus. Microalbumin [Mass/volume] i n UrineOrdered By: Glenna Quinones on 07-19-2022 Albumin DL <= 20 mg/L (U) [Mass/Vol] 2.2 mg/dL 0.0-1.8 [facility] No Panel InformationOrdered By: Glenna Quinones on 07-19-2022 Estimated GFR (CKD-EPI) > 60.0 mL/Min [facility] Creatinine Clearance (Chem N/A [facility] Potassium [Moles/volume] in Serum or PlasmaOrdered By: Glenna Quinones on 07-19-2022 Potassium [Moles/Vol] 4.2 mmol/L 3.5-5.1 [facility] Protein [Mass/volume] in Ser um or PlasmaOrdered By: Glenna Quinones on 07-19-2022 Protein [Mass/Vol] 7.1 g/dL 6.4-8.9 [facility] Serum or plasma albumin/glob ulin mass ratioOrdered By: Glenna Quinones on 07-19-2022 Albumin/Globulin [Mass ratio] 1.4 {ratio} [facility] Serum or plasma anion gap de terminationOrdered By: Glenna Quinones on 07-19-2022 Anion gap [Moles/Vol] 15.8 mmol/L 6.0-15.0 [facility] Serum or plasma high density lipoprotein (HDL) cholesterol measurementOrdered By: Glenna Quinones on 07-19-2022 Cholesterol in HDL [Mass/Vol] 45 mg/dL 35-85 [facility] Comment on above: HDL CHOL ATP-III CLA SSIFICATION Cardiovascular RiskHDL > or equal to 60 mg/dL LOWHDL < 40 mg/dL HIGH Serum or plasma total choles terol/high density lipoprotein (HDL) cholesterol mass ratOrdered By: Glenna Quinones on 07-19-2022 Cholesterol.total/Chol esterol in HDL [Mass ratio] 3.2 {ratio} <5.0 [facility] Sodium [Moles/volume] in Ser um or PlasmaOrdered By: Glenna Quinones on 07-19-2022 Sodium [Moles/Vol] 140 mmol/L 136-145 [facility] Triglyceride [Mass/volume] i n Serum or PlasmaOrdered By: Glenna Quinones on 07-19-2022 Triglyceride [Mass/Vol] 167 mg/dL 0-149 [facility] Comment on above: TRIG ATP III CLASSIF ICATIONTRIG less than 150 mg/dL NormalTRIG 150-199 mg/dL Borderline highTRIG 200-500 mg/dL High TRIG greater than 500 mg/dL Very highStandard traceable to the Center for Disease Conrtrol and Prevention (CDC) test method. Urea nitrogen [Mass/volume] in Serum or PlasmaOrdered By: Glenna Quinones on 07-19-2022 Urea nitrogen [Mass/Vol] 15 mg/dL 7-25 [facility] Urine microalbumin/creatinin e mass ratioOrdered By: Glenna Quinones on 07-19-2022 Albumin/Creatinine DL <= 20 mg/L (U) [Mass ratio] 15.0 mg/g 0.0-30.0 [facility] Comment on above: 30-300 mg/g indicate s an increased risk for diabetic nephropathy. Greater than 300 mg/g is consistent with clinical nephropathy. (Am. J. Kidney Disease 1995, 25:107) Vitamin B12 ser/plasOrdered By: Glenna Quinones on 07-19-2022 Cobalamin (Vitamin B12) [Mass/Vol] 615 pg/mL 180-914 [facility] Vitamin D+Metabolites [Mass/ volume] in Serum or PlasmaOrdered By: Glenna Quinones on 07-19-2022 Vitamin D+Metabolites [Mass/Vol] 37.0 ng/mL 30-100 [facility] Comment on above: VITAMIN D STATUS 25( [place])VITAMIN D RANGE (ng/mL) Deficient <20 Insufficient 20 to <30Sufficient 30 to 100Reference: Eulalio MF,Janny GARCIA, Zeus VALLE, et al. Evaluation,treatment, and prevention of vitamin D deficiency; an Endocrine Society clinical practice guideline. JCEM. 2010; 96(7):1911-30. Glucose - FINGER STICKon Glucose [Mass/Vol] 89 mg/dL [email or web address] Other A1C HEMOGLOBINon 09-27-2021 HbA1c (Bld) [Mass fraction] 8.5 % [email or web address] Other Glucose - [employer]ING[employer] Glucose [Mass/Vol] 157 mg/dL [email or web address] Other HbA1c (Bld) [Mass fraction]o n 09-27-2021 A1C HEMOGLOBIN [facility] nodila Other Glucose - FINGER STICKon Glucose [Mass/Vol] 272 mg/dL [email or web address] Other Glucose - [employer]INGER [employer] Glucose [Mass/Vol] 378 mg/dL [email or web address] Other A1C HEMOGLOBINon 04-11-2021 HbA1c (Bld) [Mass fraction] 9.3 % [facility] nodila Other Glucose - FINGER STICKon Glucose [Mass/Vol] 252 mg/dL [email or web address] Other HbA1c (Bld) [Mass fraction]o n 04-11-2021 A1C HEMOGLOBIN [facility] nodila Other Albumin [Mass/volume] in Ser um or Plasmaon 04-28-2020 Albumin [Mass/Vol] 3.5 g/dL 3.2-5.5 [facility] Cholesterol [Mass/volume] in Serum or Plasmaon 04-28-2020 Cholesterol [Mass/Vol] 261 mg/dL 140-200 [facility] Comment on above: Chol less than 200 m g/dl low riskChol 201-239 mg/dl borderline riskChol 240 mg/dl and greater high risk Cholesterol in LDL Calc [Mas s/Vol]on 04-28-2020 Cholesterol in LDL [Mass/Vol] [facility] Comment on above: Test not performed Cholesterol in VLDL Calc [Ma ss/Vol]on 04-28-2020 Cholesterol in VLDL [Mass/Vol] [facility] Comment on above: Test not performed Creatinine [Mass/volume] in Urineon 04-28-2020 Creatinine (U) [Mass/Vol] 52.4 mg/dL [facility] Comment on above: No reference range e stablished Creatinine and Glomerular fi ltration rate.predicted panel (S/P/Bld)on 04-28-2020 Creatinine [Mass/Vol] 0.63 mg/dL 0.44-1.03 [facility] Estimated glomerular filtrat ion rate (GFR) non- Americanon 04-28-2020 GFR/1.73 sq M.predicted among non-blacks MDRD (S/P/Bld) [Vol rate/Area] mL/min/{1.73_m2} [facility] Globulin Calc (S) [Mass/Vol] on 04-28-2020 Globulin (S) [Mass/Vol] 2.7 g/dL [facility] Laboratory - Chemistry and C hemistry - challengeon 04-28-2020 Cobalamin (Vitamin B12) [Mass/Vol] 247 pg/mL 180-914 [facility] GFR/1.73 sq M.predicted MDRD (S/P/Bld) [Vol rate/Area] mL/min/{1.73_m2} [facility] Comment on above: GFR estimated refere nce range: According to KDOQI guidelines, <60 ml/min/1.73m2 is sufficient to diagnose a patient with chronic kidney disease. No Panel Informationon 04-28 25-Hydroxy Vitamin D Total 20.1 ng/mL 30-100 [facility] Comment on above: VITAMIN D STATUS 25( [place])VITAMIN D RANGE (ng/mL) Deficient <20 Insufficient 20 to <30Sufficient 30 to 100Reference: Eulalio MF,Janny GARCIA, Zeus VALLE, et al. Evaluation,treatment, and prevention of vitamin D deficiency; an Endocrine Society clinical practice guideline. JCEM. 2010; 96(7):1911-30. Pharmacy Creatinine Clearance (Chem N/A [facility] Protein [Mass/volume] in Ser um or Plasmaon 04-28-2020 Protein [Mass/Vol] 6.2 g/dL 6.1-7.9 [facility] Serum or plasma alanine mcdaniel otransferase measurement without P-5'-P (enzymatic activion 04-28-2020 ALT No additional P-5'-P [Catalytic activity/Vol] 21 U/L 10-60 [facility] Serum or plasma albumin/glob ulin mass ratioon 04-28-2020 Albumin/Globulin [Mass ratio] 1.3 {ratio} [facility] Serum or plasma alkaline maya sphatase measurement (enzymatic activity/volume)on 04-28-2020 ALP [Catalytic activity/Vol] 86 U/L 32-92 [facility] Serum or plasma aspartate am inotransferase measurement (enzymatic activity/volume)on 04-28-2020 AST [Catalytic activity/Vol] 19 U/L 10-42 [facility] Serum or plasma calcium mallory urement (mass/volume)on 04-28-2020 Calcium [Mass/Vol] 9.1 mg/dL 8.2-10.2 [facility] Serum or plasma chloride grzegorz surement (moles/volume)on 04-28-2020 Chloride [Moles/Vol] 103 mmol/L 95-114 [facility] Serum or plasma cholesterol in LDL measurement (mass/volume)on 04-28-2020 Cholesterol in LDL [Mass/Vol] 148 mg/dL 0-100 [facility] Comment on above: LDL ATP III CLASSIFI CATIONLDL less than 100 mg/dL OptimalLDL 100-129 mg/dL Near or above optimalLDL 130-159 mg/dL Borderline highLDL 160-189 mg/dL HighLDL greater than 189 mg/dL Very high Serum or plasma glucose mallory urement (mass/volume)on 04-28-2020 Glucose [Mass/Vol] 90 mg/dL 70-100 [facility] Comment on above: ADA recommended refe rence rangeRandom Glucose Reference Range is dependent on time and content of last meal. Glucose of more than 200 mg/dL in a nonstressed, ambulatory subject supports the diagnosis of Diabetes Mellitus. Serum or plasma high density lipoprotein (HDL) cholesterol measurementon 04-28-2020 Cholesterol in HDL [Mass/Vol] 56 mg/dL 35-85 [facility] Comment on above: HDL CHOL ATP-III CLA SSIFICATION Cardiovascular RiskHDL > or equal to 60 mg/dL LOWHDL < 40 mg/dL HIGH Serum or plasma potassium me asurement (moles/volume)on 04-28-2020 Potassium [Moles/Vol] 4.3 mmol/L 3.5-5.1 [facility] Serum or plasma sodium measu rement (moles/volume)on 04-28-2020 Sodium [Moles/Vol] 137 mmol/L 136-146 [facility] Serum or plasma total biliru bin measurement (mass/volume)on 04-28-2020 Bilirubin [Mass/Vol] 0.5 mg/dL 0.3-1.2 [facility] Serum or plasma total carbon dioxide measurement (moles/volume)on 04-28-2020 CO2 [Moles/Vol] 24.8 mmol/L 22.0-30.0 [facility] Serum or plasma total choles terol/high density lipoprotein (HDL) cholesterol mass felix 04-28-2020 Cholesterol.total/Chol esterol in HDL [Mass ratio] 4.7 {ratio} <5.0 [facility] Serum or plasma urea nitroge n measurement (mass/volume)on 04-28-2020 Urea nitrogen [Mass/Vol] 12 mg/dL 9-23 [facility] Triglyceride [Mass/volume] i n Serum or Plasmaon 04-28-2020 Triglyceride [Mass/Vol] 418 mg/dL 35-149 [facility] Comment on above: If the [...] 20 mg/L (U) [Mass/Vol] 0.5 mg/dL 0.0-1.8 [facility] Urine microalbumin/creatinin e mass ratioon 04-28-2020 Albumin/Creatinine DL <= 20 mg/L (U) [Mass ratio] 9.0 mg/g 0.0-30.0 [facility] Comment on above: 30-300 mg/g indicate s an increased risk for diabetic nephropathy. Greater than 300 mg/g is consistent with clinical nephropathy. (Am. J. Kidney Disease 1995, 25:107) No Panel Information [facility] Vital Signs Date Time Vital Sign Value Performing Clinician Facility 06-19-2024 15:20-0500 Body height 165.1 cm Donell Mcgrath MD Work Phone: [facility] 06-19-2024 15:20-0500 Body mass index (BMI) [Ratio] 44.2 kg/m2 Donell Mcgrath MD Work Phone: [facility] 06-19-2024 15:20-0500 Body weight 120.7 kg Donell Mcgrath MD Work Phone: [facility] 06-19-2024 15:20-0500 Diastolic blood pressure 87 mm[Hg] Donell Mcgrath MD Work Phone: [facility] 06-19-2024 15:20-0500 Heart rate 97 /min Donell Mcgrath MD Work Phone: [facility] 06-19-2024 15:20-0500 Respiratory rate 18 /min Donell Mcgrath MD Work Phone: [facility] 06-19-2024 15:20-0500 SaO2% (BldA) [Mass fraction] 96 % Donell Mcgrath MD Work Phone: [facility] 06-19-2024 15:20-0500 Systolic blood pressure 125 mm[Hg] Donell Mcgrath MD Work Phone: [facility] 05-27-2024 14:17-0500 Blood Pressure Location Donell MCGRATH [facility] [place] 05-27-2024 14:17-0500 Diastolic blood pressure 88 mm[Hg] Donell MCGRATH [facility] [place] 05-27-2024 14:17-0500 Heart rate 72 /min Donell MCGRATH [facility] [place] 05-27-2024 14:17-0500 Respiratory rate 16 /min Donell MCGRATH [facility] [place] 05-27-2024 14:17-0500 Systolic blood pressure 126 mm[Hg] Donell MCGRATH [facility] [place] 05-01-2024 14:34-0500 Diastolic blood pressure 88 mm[Hg] Sonya Mejia [employer] Work Phone: [facility] 05-01-2024 14:34-0500 Systolic blood pressure 136 mm[Hg] Sonya Mejia [employer] Work Phone: [facility] 05-01-2024 13:57-0500 Body height 167.6 cm Sonya Mejia [employer] Work Phone: [facility] 05-01-2024 13:57-0500 Body mass index (BMI) [Ratio] 41.84 kg/m2 Sonya Mejia [employer] Work Phone: [facility] 05-01-2024 13:57-0500 Body temperature 98.1 [degF] Sonya Mejia [employer] Work Phone: [facility] 05-01-2024 13:57-0500 Body weight 117.57 kg Sonya Mejia [employer] Work Phone: [facility] 05-01-2024 13:57-0500 Heart rate 113 /min Sonya Mejia [employer] Work Phone: [facility] 05-01-2024 13:57-0500 Respiratory rate 20 /min Sonya Mejia [employer] Work Phone: [facility] 05-01-2024 13:57-0500 SaO2% (BldA) [Mass fraction] 96 % Sonya Mejia [employer] Work Phone: [facility] 03-03-2024 13:02-0500 Body height 165.1 cm [facility] 03-03-2024 13:02-0500 Body mass index (BMI) [Ratio] 44.1 kg/m2 [facility] 03-03-2024 13:02-0500 Body weight 120.4 kg [facility] 03-03-2024 13:02-0500 Diastolic blood pressure 83 mm[Hg] [facility] 03-03-2024 13:02-0500 Heart rate 108 /min [facility] 03-03-2024 13:02-0500 Respiratory rate 18 /min [facility] 03-03-2024 13:02-0500 SaO2% (BldA) [Mass fraction] 96 % [facility] 03-03-2024 13:02-0500 Systolic blood pressure 117 mm[Hg] [facility] 02-21-2024 10:59-0400 Body mass index (BMI) [Ratio] 42.61 kg/m2 Sonya Emanihholz [employer] Work Phone: [facility] 02-21-2024 10:59-0400 Body temperature 98.71 [degF] Sonya Aichholz [employer] Work Phone: [facility] 02-21-2024 10:59-0400 Body weight 119.75 kg Sonya Aichholz [employer] Work Phone: [facility] 02-21-2024 10:59-0400 Diastolic blood pressure 86 mm[Hg] Sonya Aichholz [employer] Work Phone: [facility] 02-21-2024 10:59-0400 Heart rate 107 /min Sonya Aichholz [employer] Work Phone: [facility] 02-21-2024 10:59-0400 SaO2% (BldA) [Mass fraction] 95 % Sonya Aichholz [employer] Work Phone: [facility] 02-21-2024 10:59-0400 Systolic blood pressure 138 mm[Hg] Sonya Aichholz [employer] Work Phone: [facility] 01-30-2024 14:30-0400 Body height 167.6 cm Sonya Aichholz [employer] Work Phone: [facility] 01-30-2024 14:30-0400 Body mass index (BMI) [Ratio] 43.22 kg/m2 Sonya Aichholz [employer] Work Phone: [facility] 01-30-2024 14:30-0400 Body temperature 98.29 [degF] Sonya Aichholz [employer] Work Phone: [facility] 01-30-2024 14:30-0400 Body weight 121.47 kg Sonya Aichholz [employer] Work Phone: [facility] 01-30-2024 14:30-0400 Diastolic blood pressure 86 mm[Hg] Sonya Aichholz [employer] Work Phone: [facility] 01-30-2024 14:30-0400 Heart rate 96 /min Sonya Joaquinclyde [employer] Work Phone: [facility] 01-30-2024 14:30-0400 Respiratory rate 20 /min Sonya Joaquinclyde [employer] Work Phone: [facility] 01-30-2024 14:30-0400 SaO2% (BldA) [Mass fraction] 96 % Sonya Mejia [employer] Work Phone: [facility] 01-30-2024 14:30-0400 Systolic blood pressure 138 mm[Hg] Sonya Joaquinclyde [employer] Work Phone: [facility] 01-22-2024 14:25-0400 Body height 165.1 cm [facility] 01-22-2024 14:25-0400 Body mass index (BMI) [Ratio] 44.2 kg/m2 [facility] 01-22-2024 14:25-0400 Body weight 120.65 kg [facility] 01-22-2024 14:25-0400 Diastolic blood pressure 66 mm[Hg] [facility] 01-22-2024 14:25-0400 Heart rate 100 /min [facility] 01-22-2024 14:25-0400 Respiratory rate 18 /min [facility] 01-22-2024 14:25-0400 SaO2% (BldA) [Mass fraction] 96 % [facility] 01-22-2024 14:25-0400 Systolic blood pressure 110 mm[Hg] [facility] 11-26-2023 14:03-0400 Body height 165.1 cm [facility] 11-26-2023 14:03-0400 Body mass index (BMI) [Ratio] 45.9 kg/m2 [facility] 11-26-2023 14:03-0400 Body weight 125.19 kg [facility] 11-26-2023 14:03-0400 Diastolic blood pressure 84 mm[Hg] [facility] 11-26-2023 14:03-0400 Heart rate 112 /min [facility] 11-26-2023 14:03-0400 Respiratory rate 18 /min [facility] 11-26-2023 14:03-0400 SaO2% (BldA) [Mass fraction] 96 % [facility] 11-26-2023 14:03-0400 Systolic blood pressure 139 mm[Hg] [facility] 10-11-2023 13:30-0400 Body height 165.1 cm Sonya [email or web address] Work Phone: [facility] 10-11-2023 13:30-0400 Body mass index (BMI) [Ratio] 44.4 kg/m2 Sonya [email or web address] Work Phone: [facility] 10-11-2023 13:30-0400 Body weight 121.1 kg Sonya [email or web address] Work Phone: [facility] 08-21-2023 12:54-0400 Body height 165.1 cm [employer] Work Phone: [facility] 08-21-2023 12:54-0400 Body mass index (BMI) [Ratio] 44.6 kg/m2 [employer] Work Phone: [facility] 08-21-2023 12:54-0400 Body weight 121.56 kg [employer] Work Phone: [facility] 08-21-2023 12:54-0400 Diastolic blood pressure 82 mm[Hg] [employer] Work Phone: [facility] 08-21-2023 12:54-0400 Heart rate 121 /min [employer] Work Phone: [facility] 08-21-2023 12:54-0400 Respiratory rate 20 /min [employer] Work Phone: [facility] 08-21-2023 12:54-0400 SaO2% (BldA) [Mass fraction] 95 % [employer] Work Phone: [facility] 08-21-2023 12:54-0400 Systolic blood pressure 138 mm[Hg] Services [facility] Work Phone: [facility] 06-07-2023 17:03-0500 Body height 167.6 cm Sonya Jackie [employer] Work Phone: [facility] 06-07-2023 17:03-0500 Body mass index (BMI) [Ratio] 42.74 kg/m2 Sonya Shiloz [employer] Work Phone: [facility] 06-07-2023 17:03-0500 Body temperature 97.59 [degF] Sonya Jackie [employer] Work Phone: [facility] 06-07-2023 17:03-0500 Body weight 120.11 kg Sonya Jackie [employer] Work Phone: [facility] 06-07-2023 17:03-0500 Diastolic blood pressure 80 mm[Hg] Sonya Shiloz [employer] Work Phone: [facility] 06-07-2023 17:03-0500 Heart rate 109 /min Sonya Emaniholz [employer] Work Phone: [facility] 06-07-2023 17:03-0500 Respiratory rate 19 /min Sonya Shiloz [employer] Work Phone: [facility] 06-07-2023 17:03-0500 SaO2% (BldA) [Mass fraction] 98 % Sonya Shiloz [employer] Work Phone: [facility] 06-07-2023 17:03-0500 Systolic blood pressure 122 mm[Hg] Sonya Emaniholz [employer] Work Phone: [facility] 02-19-2023 14:00-0400 Body height 165.1 cm Glenna Scally Other [employer] Other 02-19-2023 14:00-0400 Body mass index (BMI) [Ratio] 42.76 kg/m2 Glenna Scally Other [employer] Other 02-19-2023 14:00-0400 Body weight 116.58 kg Glenna Scally Other [employer] Other 02-19-2023 14:00-0400 Diastolic blood pressure 76 mm[Hg] Glenna Scally Other [employer] Other 02-19-2023 14:00-0400 Respiratory rate 18 /min Glenna Scally Other [employer] Other 02-19-2023 14:00-0400 SaO2% (BldA) [Mass fraction] 96 % Glenna Scally Other [employer] Other 02-19-2023 14:00-0400 Systolic blood pressure 127 mm[Hg] Glenna Scally Other [employer] Other 01-16-2023 13:00-0400 Body height 165.1 cm Glenna Scally Other [employer] Other 01-16-2023 13:00-0400 Body mass index (BMI) [Ratio] 40.63 kg/m2 Glenna Scally Other [employer] Other 01-16-2023 13:00-0400 Body weight 110.77 kg Glenna Scally Other [employer] Other 11-21-2022 13:00-0400 Body height 165.1 cm Glenna Scally Other [employer] Other 11-21-2022 13:00-0400 Body mass index (BMI) [Ratio] 41.36 kg/m2 Glenna Scally Other [employer] Other 11-21-2022 13:00-0400 Body weight 112.76 kg Glenna Scally Other [employer] Other 11-21-2022 13:00-0400 Diastolic blood pressure 93 mm[Hg] Glenna Scally Other [employer] Other 11-21-2022 13:00-0400 Respiratory rate 18 /min Glenna Scally Other [employer] Other 11-21-2022 13:00-0400 SaO2% (BldA) [Mass fraction] 98 % Glenna Scally Other [employer] Other 11-21-2022 13:00-0400 Systolic blood pressure 137 mm[Hg] Glenna Scally Other [employer] Other 11-20-2022 15:00-0400 Body height 165.1 cm Mark Gramajo Other [employer] Other 11-20-2022 15:00-0400 Body mass index (BMI) [Ratio] 41.05 kg/m2 Mark Scovanner Other [employer] Other 11-20-2022 15:00-0400 Body weight 111.9 kg Mark Scovanner Other [employer] Other 11-20-2022 15:00-0400 Diastolic blood pressure 89 mm[Hg] Mark Crowovanner Other [employer] Other 11-20-2022 15:00-0400 Systolic blood pressure 133 mm[Hg] Mark Gramajo Other [employer] Other 10-17-2022 11:00-0400 Body height 165.1 cm Glenna Scally Other [employer] Other 10-17-2022 11:00-0400 Body mass index (BMI) [Ratio] 41.76 kg/m2 Glenna Scally Other [employer] Other 10-17-2022 11:00-0400 Body weight 113.85 kg Glenna Scally Other [employer] Other 08-30-2022 14:00-0400 Body height 165.1 cm Glenna Scally Other [employer] Other 08-30-2022 14:00-0400 Body mass index (BMI) [Ratio] 42.25 kg/m2 Glenna Scally Other [employer] Other 08-30-2022 14:00-0400 Body weight 115.17 kg Glenna Scally Other [employer] Other 08-30-2022 14:00-0400 Diastolic blood pressure 88 mm[Hg] Glenna Scally Other [employer] Other 08-30-2022 14:00-0400 Respiratory rate 18 /min Glenna Scally Other [employer] Other 08-30-2022 14:00-0400 SaO2% (BldA) [Mass fraction] 96 % Glenna Scally Other [employer] Other 08-30-2022 14:00-0400 Systolic blood pressure 136 mm[Hg] Glenna Scally Other [employer] Other 07-19-2022 14:00-0400 Body height 165.1 cm Glenna Scally Other [employer] Other 07-19-2022 14:00-0400 Body mass index (BMI) [Ratio] 42.1 kg/m2 Glenna Scally Other [employer] Other 07-19-2022 14:00-0400 Body weight 114.76 kg Glenna Scally Other [employer] Other 04-26-2022 14:00-0500 Body height 165.1 cm Glenna Scally Other [employer] Other 04-26-2022 14:00-0500 Body mass index (BMI) [Ratio] 42.3 kg/m2 Glenna Scally Other [employer] Other 04-26-2022 14:00-0500 Body weight 115.31 kg Glenna Scally Other [employer] Other 03-14-2022 14:00-0500 Body height 165.1 cm Glenna Scally Other [employer] Other 03-14-2022 14:00-0500 Body mass index (BMI) [Ratio] 43.13 kg/m2 Glenna Scally Other [employer] Other 03-14-2022 14:00-0500 Body weight 117.57 kg Glenna Scally Other [employer] Other 02-16-2022 14:00-0400 Body height 165.1 cm Glenna Scally Other [employer] Other 02-16-2022 14:00-0400 Body mass index (BMI) [Ratio] 41.18 kg/m2 Glenna Scally Other [employer] Other 02-16-2022 14:00-0400 Body weight 112.27 kg Glenna Scally Other [employer] Other 02-16-2022 14:00-0400 Diastolic blood pressure 99 mm[Hg] Glenna Scally Other [employer] Other 02-16-2022 14:00-0400 Respiratory rate 18 /min Glenna Scally Other [employer] Other 02-16-2022 14:00-0400 SaO2% (BldA) [Mass fraction] 97 % Glenna Scally Other [employer] Other 02-16-2022 14:00-0400 Systolic blood pressure 141 mm[Hg] Glenna Scally Other [employer] Other 09-27-2021 14:00-0400 Body height 165.1 cm Glenna Scally Other [employer] Other 09-27-2021 14:00-0400 Body mass index (BMI) [Ratio] 42.01 kg/m2 Glenna Scally Other [employer] Other 09-27-2021 14:00-0400 Body weight 114.53 kg Glenna Scally Other [employer] Other 09-27-2021 14:00-0400 Diastolic blood pressure 90 mm[Hg] Glenna Scally Other [employer] Other 09-27-2021 14:00-0400 Respiratory rate 18 /min Glenna Scally Other [employer] Other 09-27-2021 14:00-0400 SaO2% (BldA) [Mass fraction] 96 % Glenna Scally Other [employer] Other 09-27-2021 14:00-0400 Systolic blood pressure 120 mm[Hg] Glenna Scally Other [employer] Other 08-17-2021 14:00-0400 Body height 165.1 cm Glenna Scally Other [employer] Other 08-17-2021 14:00-0400 Body mass index (BMI) [Ratio] 41.73 kg/m2 Glenna Scally Other [employer] Other 08-17-2021 14:00-0400 Body weight 113.76 kg Glenna Scally Other [employer] Other 08-02-2021 15:00-0400 Body height 165.1 cm Glenna Scally Other [employer] Other 08-02-2021 15:00-0400 Body mass index (BMI) [Ratio] 42.9 kg/m2 Glenna Scally Other [employer] Other 08-02-2021 15:00-0400 Body weight 116.94 kg Glenna Scally Other [employer] Other 08-02-2021 15:00-0400 Diastolic blood pressure 91 mm[Hg] Glenna Scally Other [employer] Other 08-02-2021 15:00-0400 Respiratory rate 18 /min Glenna Scally Other [employer] Other 08-02-2021 15:00-0400 SaO2% (BldA) [Mass fraction] 98 % Glenna Scally Other [employer] Other 08-02-2021 15:00-0400 Systolic blood pressure 132 mm[Hg] Glenna Scally Other [employer] Other 07-05-2021 14:30-0400 Body height 165.1 cm Glenna Scally Other [employer] Other 07-05-2021 14:30-0400 Body mass index (BMI) [Ratio] 42.6 kg/m2 Glenna Scally Other [employer] Other 07-05-2021 14:30-0400 Body weight 116.12 kg Glenna Scally Other [employer] Other 07-05-2021 14:30-0400 Diastolic blood pressure 93 mm[Hg] Glenna Scally Other [employer] Other 07-05-2021 14:30-0400 Respiratory rate 20 /min Glenna Scally Other [employer] Other 07-05-2021 14:30-0400 SaO2% (BldA) [Mass fraction] 98 % Glenna Scally Other [employer] Other 07-05-2021 14:30-0400 Systolic blood pressure 133 mm[Hg] Glenna Scally Other [employer] Other 04-11-2021 15:30-0500 Body height 165.1 cm Glenna Scally Other [employer] Other 04-11-2021 15:30-0500 Body mass index (BMI) [Ratio] 42.43 kg/m2 Glenna Scally Other [employer] Other 04-11-2021 15:30-0500 Body weight 115.67 kg Glenna Scally Other [employer] Other 04-11-2021 15:30-0500 Diastolic blood pressure 92 mm[Hg] Glenna Scally Other [employer] Other 04-11-2021 15:30-0500 Respiratory rate 20 /min Glenna Scally Other [employer] Other 04-11-2021 15:30-0500 SaO2% (BldA) [Mass fraction] 97 % Glenna Scally Other [employer] Other 04-11-2021 15:30-0500 Systolic blood pressure 136 mm[Hg] Glenna Scally Other [employer] Other Encounters Encounter Date Encounter Type Care Provider Facility Start: 06-19-2024 End: 06-19-2024 ambulatory Donell Mcgrath MD Work Phone: [facility] Work Phone: Start: 06-19-2024 End: 06-19-2024 Patient encounter procedure Donell Mcgrath MD Work Phone: [facility] Work Phone: Start: 06-18-2024 End: 06-18-2024 ambulatory Donell MCGRATH Facility:[facility] Start: 06-18-2024 End: 06-18-2024 Patient encounter procedure Donell MCGRATH [facility] Start: 06-04-2024 End: 06-04-2024 ambulatory Donell Mcgrath [facility] Work Phone: Start: 06-04-2024 End: 06-04-2024 Departed Referred Donell Mcgrath MD Work Phone: [facility] Start: 06-03-2024 End: 06-04-2024 ambulatory JASON ACEVEDO Facility:[facility] Start: 06-03-2024 End: 06-03-2024 Patient encounter procedure Jason Acevedo MD Work Phone: Ophthalmology Comment on above: Type 2 diabetes marti itus with both eyes affected 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, unspecified whether long winder tender insulin use (HCC) (Primary Dx); 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, bilateral; Nuclear sclerotic cataract, bilateral Start: 05-27-2024 End: 05-27-2024 ambulatory SONYA MEJIA Facility:[facility] Start: 05-27-2024 End: 05-27-2024 Patient encounter procedure Donell MCGRATH [facility] Start: 05-15-2024 End: 05-15-2024 ambulatory [facility] Work Phone: Start: 05-15-2024 End: 05-15-2024 Patient encounter procedure [facility] Work Phone: Start: 05-05-2024 ambulatory Donell MCGRATH Facility:[facility] Start: 05-01-2024 End: 05-01-2024 Bamboo flowsheet Sonya Mejia OIL PIPE INSPECTOR Work Phone: [facility] Start: 05-01-2024 End: 05-01-2024 Bamboo flowsheet Sonya Mejia OIL PIPE INSPECTOR Work Phone: [facility] Start: 05-01-2024 End: 05-01-2024 Office outpatient visit 25 minutes Sonya Mejia OIL PIPE INSPECTOR Work Phone: [facility] Comment on above: Primary hypertension (CMS/HCC) (Primary Dx); Type 2 diabetes mellitus with diabetic cataract (CMS/HCC); Type 2 diabetes mellitus 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 edema, unspecified eye (CMS/HCC); Opioid abuse, in remission (CMS/HCC); intermediate frame tender (current) use of insulin (CMS/HCC); Morbid (severe) obesity due to excess calories (CMS/HCC); Body mass index (BMI) 40.0-44.9, adult (CMS/HCC); Gastroesophageal reflux disease, unspecified whether esophagitis present; Adenocarcinoma of endometrium, stage 1 (CMS/HCC); Class 3 severe obesity due to excess calories without serious comorbidity with body mass index (BMI) of 40.0 to 44.9 in adult (CMS/HCC); 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, with long-term current use of insulin, macular edema presence unspecified, unspecified laterality, unspecified proliferative retinop* (CMS/HCC); Anxiety and depression (CMS/HCC); Mixed hyperlipidemia (CMS/HCC); Environmental and seasonal allergies; Anxiety; Major depressive disorder with single episode, remission status unspecified (CMS/HCC); Colon cancer screening Start: 05-01-2024 End: 05-01-2024 ambulatory SONYA MEJIA Not Available Start: 03-03-2024 End: 03-03-2024 ambulatory [facility] Work Phone: Start: 03-03-2024 End: 03-03-2024 Patient encounter procedure [facility] Work Phone: Start: 02-21-2024 End: 02-21-2024 Bamboo flowsheet Sonya Mejia OIL PIPE INSPECTOR Work Phone: [facility] Start: 02-21-2024 End: 02-21-2024 Bamboo flowsheet Sonya Jackie OIL PIPE INSPECTOR Work Phone: [facility] Start: 02-21-2024 End: 02-21-2024 Office outpatient visit 15 minutes Sonya Mejia OIL PIPE INSPECTOR Work Phone: [facility] Comment on above: Diabetic ketoacidosi s without coma associated with type 2 diabetes mellitus (CMS/HCC) (Primary Dx); 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, with long-term current use of insulin, macular edema presence unspecified, unspecified laterality, unspecified proliferative retinop* (CMS/[facility]); Class 3 severe obesity due to excess calories without serious comorbidity with body mass index (BMI) of 40.0 to 44.9 in adult (CMS/HCC); Colon cancer screening Start: 02-21-2024 End: 02-21-2024 ambulatory SONYA JACKIE Not Available Start: 02-12-2024 End: 02-15-2024 Clinisync Result Encounter Shaikh Pasquale APODACA Work Phone: [facility] Unsolicited Start: 02-12-2024 End: 02-15-2024 Clinisync Result Encounter Shaikh Pasquale APODACA Work Phone: [facility] Unsolicited Start: 02-11-2024 End: 02-13-2024 Non-patient / Non-visit [facility] Work Phone: Start: 01-30-2024 End: 01-30-2024 Office outpatient visit 25 minutes Sonya Mejia NP Work Phone: [facility] Comment on above: Primary hypertension ([facility]) (Primary Dx); Mixed hyperlipidemia ([facility]); Environmental and seasonal allergies; Gastroesophageal reflux disease, unspecified whether esophagitis present; Anxiety; Major depressive disorder with single episode, remission status unspecified ([facility]); Colon cancer screening; 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, with long-term current use of insulin, macular edema presence unspecified, unspecified laterality, unspecified proliferative retinop* ([facility]); Class 3 severe obesity due to excess calories without serious comorbidity with body mass index (BMI) of 40.0 to 44.9 in adult ([facility]); Anxiety and depression ([facility]) Start: 01-30-2024 End: 01-30-2024 ambulatory SONYA MEJIA Not Available Start: 01-30-2024 End: 01-30-2024 Bamboo flowsheet Sonya Mejia OIL PIPE INSPECTOR Work Phone: [facility] Start: 01-30-2024 End: 01-30-2024 Bamboo flowsheet Sonya Mejia OIL PIPE INSPECTOR Work Phone: [facility] Start: 01-23-2024 End: 01-24-2024 Telephone encounter Sonya Mejia OIL PIPE INSPECTOR Work Phone: [facility] Start: 01-22-2024 End: 01-22-2024 Clinisync Result Encounter Sonya Mejia OIL PIPE INSPECTOR Work Phone: [facility] External Department Unsolicited Start: 01-22-2024 End: 01-22-2024 Clinisync Result Encounter Sonya Mejia OIL PIPE INSPECTOR Work Phone: [facility] External Department Unsolicited Start: 01-22-2024 End: 01-22-2024 ambulatory [facility] Work Phone: Start: 01-22-2024 End: 01-22-2024 Patient encounter procedure [facility] Work Phone: Start: 12-17-2023 End: 12-17-2023 ambulatory [facility] Work Phone: Start: 12-17-2023 End: 12-17-2023 Patient encounter procedure [facility] Work Phone: Start: 11-26-2023 End: 11-26-2023 ambulatory [facility] Work Phone: Start: 11-26-2023 End: 11-26-2023 Patient encounter procedure [facility] Work Phone: Start: 10-15-2023 End: 10-15-2023 ambulatory SONYA JACKIE Not Available Start: 10-11-2023 End: 10-11-2023 ambulatory Sonya Aguirre Jackie Work Phone: [facility] Work Phone: Start: 10-11-2023 End: 10-11-2023 Patient encounter procedure Sonya Joaquinclyde Work Phone: [facility] Work Phone: Start: 08-21-2023 End: 08-21-2023 Patient encounter procedure [facility] Work Phone: [facility] [place] Work Phone: Start: 08-21-2023 End: 08-21-2023 ambulatory [facility] Work Phone: [facility] Work Phone: Start: 08-21-2023 End: 08-21-2023 ambulatory [facility] Work Phone: [facility] Work Phone: Start: 08-21-2023 End: 08-21-2023 Patient encounter procedure [facility] Work Phone: [facility] Work Phone: Start: 08-07-2023 End: 08-07-2023 ambulatory JASON ACEVEDO Facility:[facility] Start: 08-07-2023 End: 08-07-2023 Patient encounter procedure Jason Acevedo MD Work Phone: Ophthalmology Comment on above: Type 2 diabetes marti itus with both eyes affected 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, unspecified whether long winder tender insulin use (HCC) (Primary Dx); 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, bilateral; Nuclear sclerotic cataract, bilateral Start: 06-26-2023 End: 06-26-2023 Patient encounter procedure Services [facility] Work Phone: [facility] Work Phone: Start: 06-07-2023 End: 06-07-2023 ambulatory SONYA MEJIA Not Available Start: 06-07-2023 Bamboo flowsheet Sonya Mejia OIL PIPE INSPECTOR Work Phone: [facility] Start: 06-07-2023 Bamboo flowsheet Snoya Mejia OIL PIPE INSPECTOR Work Phone: [facility] Start: 06-07-2023 End: 06-07-2023 Patient encounter procedure Sonya Mejia OIL PIPE INSPECTOR Work Phone: [facility] Comment on [...] in adult (CMS/HCC); Anxiety and depression (CMS/HCC); senior living (current) use of insulin (Z79.4); Colon cancer screening Start: 05-28-2023 Non-patient / Non-visit [facility] Work Phone: [facility] Physician [facility] Work Phone: Start: 05-28-2023 End: 05-28-2023 ambulatory Services [facility] Work Phone: [facility] Work Phone: Start: 05-28-2023 End: 05-28-2023 Discharged Recurring Services Family [facility] Work Phone: [facility] Work Phone: Start: 05-24-2023 Refill Sonya Jackie OIL PIPE INSPECTOR Work Phone: [facility] Comment on above: Mixed hyperlipidemia (CMS/HCC) (Primary Dx) Start: 02-19-2023 (DM) Diabetes Glenna Joni [facility] Start: 02-19-2023 End: 02-19-2023 ambulatory Glenna Sterlingly Other [employer] Other Start: 02-05-2023 End: 02-05-2023 ambulatory Glenna Sterlingly Other [employer] Other Start: 02-05-2023 Telephone encounter Glennadanish Quinones Sheila jose juan [facility] Start: 01-16-2023 End: 01-16-2023 ambulatory Glenna Scally Other [employer] Other Start: 01-16-2023 Nursing evaluation o f patient and report Glenna Denis [facility] Start: 12-14-2022 End: 12-14-2022 ambulatory Glenna Scally Other [employer] Other Start: 12-14-2022 Telephone encounter Glennadanish manzano [facility] Start: 12-11-2022 End: 12-11-2022 ambulatory Glenna Scally Other [employer] Other Start: 12-11-2022 Telephone encounter Glenna Scally [place] [facility] Start: 12-06-2022 End: 12-06-2022 ambulatory [facility] Work Phone: [facility] Work Phone: Start: 12-06-2022 End: 12-06-2022 Patient encounter procedure [facility] Work Phone: [facility] Work Phone: Start: 12-04-2022 End: 12-04-2022 Patient encounter procedure Services Family [facility] Work Phone: [facility]-Ultrasound [place] Work Phone: Start: 11-21-2022 (DM) Diabetes Glenna Sterlingjayden Fryania [facility] Start: 11-21-2022 End: 11-21-2022 ambulatory Glenna Quinones Other [employer] Other Start: 11-21-2022 Registered Recurring [facility] Work Phone: [facility] Work Phone: Start: 11-20-2022 End: 11-20-2022 ambulatory Mark Gramajo Other [employer] Other Start: 11-20-2022 Office outpatient ne w 30 minutes Mark Gramajo [facility] Start: 10-27-2022 End: 10-27-2022 ambulatory Glenna Joni Other [employer] Other Start: 10-27-2022 Telephone encounter Glenna Scaljayden manzano [facility] Start: 10-17-2022 End: 10-17-2022 ambulatory Glenna Sterlingly Other [employer] Other Start: 10-17-2022 Nursing evaluation o f patient and report [facility] Start: 10-10-2022 End: 10-10-2022 ambulatory Glenna Quinones Other [employer] Other Start: 10-10-2022 Telephone encounter Glenna manzano [facility] Start: 09-08-2022 ambulatory FORGING PRESS OPERATOR SONYA MEJIA Facil ity:[facility] Start: 08-30-2022 (DM) [facility] Start: 08-30-2022 End: 08-30-2022 ambulatory Glenna Quinones Other [employer] Other Start: 08-11-2022 End: 08-12-2022 ambulatory FORGING PRESS OPERATOR SONYA JOAQUINJUANFadumo Facility:[facility] Start: 08-07-2022 End: 08-07-2022 ambulatory KAYA PATEL Facility:[facility] Start: 08-04-2022 End: 08-05-2022 ambulatory FORGING PRESS OPERATOR SONYA JOAQUINJUANFadumo Facility:[facility] Start: 07-19-2022 Registered Recurring oSnya tang Work Phone: [facility] Work Phone: Start: 07-19-2022 Nursing evaluation o f patient and report Glenna Quinones [facility] Start: 07-19-2022 End: 07-19-2022 ambulatory Sonya Aguirre Emanidanishjuanfadumo Work Phone: [facility] Work Phone: Start: 07-19-2022 End: 07-19-2022 Patient encounter procedure Sonya Joaquinjuanfadumo Work Phone: [facility] [place] Work Phone: Start: 07-11-2022 End: 07-11-2022 ambulatory Glenna Quinones Other [employer] Other Start: 07-11-2022 Telephone encounter Glnena manzano [facility] Start: 06-16-2022 End: 06-16-2022 ambulatory Glenna Quinones Other [employer] Other Start: 06-16-2022 Telephone encounter Glenna manzano [facility] Start: 06-09-2022 End: 06-09-2022 ambulatory Glenna Quinones Other [employer] Other Start: 06-09-2022 Telephone encounter Glenna manzano [facility] Start: 04-26-2022 End: 04-26-2022 ambulatory Glenna Quinones Other [employer] Other Start: 04-26-2022 Nursing evaluation o f patient and report Glenna Denis [facility] Start: 03-14-2022 End: 03-14-2022 ambulatory Glenna Quinones Other [employer] Other Start: 03-14-2022 Nursing evaluation o f patient and report Glenna Denis [facility] Start: 02-16-2022 (DM) Diabetes Glenna Negrete [facility] Start: 02-16-2022 End: 02-16-2022 ambulatory Glenna Quinones Other [employer] Other Start: 01-31-2022 End: 01-31-2022 Patient encounter procedure Richelle Monreal PA-C Work Phone: Ophthalmology Comment on above: Type 2 diabetes marti itus with both eyes affected 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, unspecified whether group home insulin use (HCC) (Primary Dx); Nuclear sclerotic cataract, bilateral; 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, bilateral Start: 01-26-2022 End: 01-26-2022 ambulatory Glenna Quinones Other [employer] Other Start: 01-26-2022 Nursing evaluation o f patient and report Glenna Denis [facility] Start: 09-27-2021 (DM) Diabetes Glenna Scally [facility] Start: 09-27-2021 End: 09-27-2021 ambulatory Glenna Sterlingly Other [employer] Other Start: 08-26-2021 End: 08-26-2021 ambulatory Glenna Sterlingly Other [employer] Other Start: 08-26-2021 Telephone encounter Glenna Sterlingly hSeila wallaces [facility] Start: 08-25-2021 End: 08-25-2021 ambulatory Lgenna Scally Other [employer] Other Start: 08-25-2021 Telephone encounter Glennajeff wallaces [facility] Start: 08-17-2021 End: 08-17-2021 ambulatory Glenna Scally Other [employer] Other Start: 08-17-2021 Nursing evaluation o f patient and report Glenna Denis [facility] Start: 08-03-2021 End: 08-03-2021 ambulatory Glenna Sterlingly Other [employer] Other Start: 08-03-2021 Telephone encounter Glennajeff wallaces [facility] Start: 08-02-2021 (DM) Diabetes Glenna Sterlingly [facility] Start: 08-02-2021 End: 08-02-2021 ambulatory Glenna Scally Other [employer] Other Start: 08-01-2021 End: 08-01-2021 ambulatory Glenna Scally Other [employer] Other Start: 08-01-2021 Telephone encounter Glenna Joni [facility] Start: 07-18-2021 End: 07-18-2021 ambulatory Glenna Scally Other [employer] Other Start: 07-18-2021 Telephone encounter Glenna Scally [place] [facility] Start: 07-05-2021 (DM) Diabetes Glenna Scally [facility] Start: 07-05-2021 End: 07-05-2021 ambulatory Glenna Scally Other [employer] Other Start: 07-05-2021 Telephone encounter Glenna Scally [place] [facility] Start: 06-07-2021 End: 06-07-2021 ambulatory Glenna Scally Other [employer] Other Start: 06-07-2021 Telephone encounter Glenna Scally [place] [facility] Start: 06-06-2021 End: 06-06-2021 ambulatory Glenna Scally Other [employer] Other Start: 06-06-2021 Telephone encounter Glenna Scally [place] [facility] Start: 05-19-2021 End: 05-19-2021 ambulatory Glenna Scally Other [employer] Other Start: 05-19-2021 Telephone encounter Glenna Scally [place] [facility] Start: 05-10-2021 End: 05-10-2021 ambulatory Glenna Scally Other [employer] Other Start: 05-10-2021 Telephone encounter Glenna Scally [place] [facility] Start: 04-27-2021 End: 04-27-2021 ambulatory Glenna Scally Other [employer] Other Start: 04-27-2021 Telephone encounter Glenna Scally [place] [facility] Start: 04-12-2021 End: 04-12-2021 ambulatory Glenna Quinones Other [employer] Other Start: 04-12-2021 Telephone encounter Glenna Sosa [facility] Start: 04-11-2021 (DM) Diabetes Glenna Negrete [facility] Start: 04-11-2021 End: 04-11-2021 ambulatory Glenna Quinones Other [employer] Other Start: 03-14-2021 End: 03-14-2021 ambulatory Glenna Quinones Other [employer] Other Start: 03-14-2021 Telephone encounter Glenna Sosa [facility] Start: 09-06-2020 End: 09-06-2020 Patient encounter procedure Services [employer] Work Phone: [facility] Start: 08-26-2020 Registered Recurring Services [employer] Work Phone: [facility] Start: 11-02-2019 Blood glucose normal Sonya tang Work Phone: [facility] Procedures Date Procedure Procedure Detail Performing Clinician Start: 06-04-2024 Colonoscopy Donell MCGRATH Start: 06-03-2024 Computerized ophthalmic imaging retina Jason Acevedo MD Work Phone: Start: 02-12-2024 Bacteria identified in Urine by Culture Shaikh Pasquale APODACA Work Phone: Start: 01-22-2024 ALL CBC WITH AUTO DIFF Sonya Mejia OIL PIPE INSPECTOR Work Phone: Start: 01-22-2024 TB MICROALB CREAT RATIO RANDOM Sonya Mejia OIL PIPE INSPECTOR Work Phone: Start: 01-22-2024 [facility] (CLEAN/CATCH) MICROSCOPIC IF INDICATE Sonya Mejia OIL PIPE INSPECTOR Work Phone: Start: 08-07-2023 Computerized ophthalmic imaging retina Jason Acevedo MD Work Phone: Start: 08-06-2023 Mammography Sonya Mejia NP Work Phone: Start: 12-06-2022 Ultrasound elastography of liver Services [facility] Work Phone: Start: 12-04-2022 Ultrasonography of liver Services [facility] Work Phone: Start: 08-04-2022 Mammography Sonya Mejia NP Work Phone: Start: 01-31-2022 End: 01-31-2022 Computerized ophthalmic imaging retina Richelle Monreal PA-C Work Phone: Start: 09-06-2020 Screening mammography of bilateral breasts Services [facility] Work Phone: Start: 12-12-2019 Microscopic observation [Identifier] in Cervix by Cyto stain Sonya Mejia NP Work Phone: Start: 03-19-2018 History of laser assisted in situ keratomileusis S/P LASIK (laser assisted in situ keratomileusis) Richelle Monreal PA-C Work Phone: Start: 04-30-2017 End: 10-15-2023 H/O: hysterectomy History of hysterectomy for cancer Sonya Mejia NP Work Phone: Start: 12-11-2016 Microscopic observation [Identifier] in Cervix by Cyto stain Sonya Mejia NP Work Phone: Extraction of wisdom tooth M ichhoracio MCGRATH Laparoscopy Donell MCGRATH Surgical procedure o n eye proper using laser Donell MCGRATH Tonsillectomy Donell MCGRATH Total abdominal hysterectomy with bilateral salpingo-oophorectomy Donell MCGRATH Plan of Treatment Date Care Activity Detail Author Start: 08-05-2033 Urine microalbumin profile DTaP,Tdap,Td Vaccine (2 - Td or Tdap) [facility] Start: 06-18-2025 End: 11-25-2025 OCT ANGIOGRAPHY OU (BOTH EYES) OCT ANGIOGRAPHY OU (BOTH EYES) OPHT Imaging Routine 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, bilateral Nuclear sclerotic cataract, bilateral 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, unspecified whether long winder tender insulin use (HCC) Expected: 06/18/2025, Expires: 11/25/2025 [facility] Comment on above: Expected: 06/18/2025 , Expires: 11/25/2025 Start: 06-18-2025 End: 11-25-2025 OCT MACULA CIRRUS OU (BOTH EYES) OCT MACULA CIRRUS OU (BOTH EYES) OPHT Imaging Routine 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, bilateral Nuclear sclerotic cataract, bilateral 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, unspecified whether long winder tender insulin use (HCC) Expected: 06/18/2025, Expires: 11/25/2025 [facility] Work Phone: Comment on above: Expected: 06/18/2025 , Expires: 11/25/2025 Start: 06-03-2025 Glaucoma screening Dilated Retinal E xam [facility] Start: 01-21-2025 Urine screening for protein Diabetes: Urine Protein Screening [facility] Start: 12-11-2024 PAP TESTING PAP TESTING [facility] Start: 12-11-2024 Screening for malign ant neoplasm of cervix Pap Testing [facility] Start: 12-01-2024 End: 12-01-2024 Patient encounter procedure 12/01/2024 12:45 PM EDT Office Visit [facility] [address] [address] Richelle Monreal PA-C [address] [place] [address] JANELLE Travis in 6 months Ophthalmology Comment on above: JANELLE Travis in 6 months Start: 08-21-2024 End: 01-28-2025 OCT MACULA CIRRUS OU (BOTH EYES) OCT MACULA CIRRUS OU (BOTH EYES) [facility] Imaging Routine 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, bilateral Nuclear sclerotic cataract, bilateral 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, unspecified whether group home insulin use (HCC) Expected: 08/21/2024, Expires: 01/28/2025 [facility] Work Phone: Comment on above: Expected: 08/21/2024 , Expires: 01/28/2025 Start: 08-06-2024 Glaucoma screening [facility] Start: 08-05-2024 Screening for malign ant neoplasm of breast Mammogram [facility] Start: 06-07-2024 Medicare Annual Well ness (AWV) Medicare Annual Wellness (AWV) [facility] Start: 06-03-2024 Hemoglobin A1c measurement Diabetes: Hemoglobin A1C [facility] Start: 05-01-2024 End: 05-01-2024 Patient encounter procedure [facility] Comment on above: Primary hypertension (CMS/HCC) (Primary Dx); Type 2 diabetes mellitus with diabetic cataract (CMS/HCC); Type 2 diabetes mellitus 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 edema, unspecified eye (CMS/HCC); Opioid abuse, in remission (CMS/HCC); senior living (current) use of insulin (CMS/HCC); Morbid (severe) obesity due to excess calories (CMS/HCC); Body mass index (BMI) 40.0-44.9, adult (CMS/HCC); Gastroesophageal reflux disease, unspecified whether esophagitis present; Adenocarcinoma of endometrium, stage 1 (CMS/HCC); Class 3 severe obesity due to excess calories without serious comorbidity with body mass index (BMI) of 40.0 to 44.9 in adult (CMS/HCC); 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, with long-term current use of insulin, macular edema presence unspecified, unspecified laterality, unspecified proliferative retinop* (CMS/HCC); Anxiety and depression (CMS/HCC) Start: 02-28-2024 Urine screening for protein Diabetes: Urine Protein Screening [facility] Start: 02-26-2024 Hemoglobin A1c measurement Diabetes: Hemoglobin A1C [facility] Start: 02-21-2024 End: 02-21-2024 Patient encounter procedure [facility] Comment on above: Arrived Start: 01-30-2024 End: 01-30-2024 Patient encounter procedure [facility] Comment on above: Arrived Start: 12-23-2023 Covid-19 Vaccine ( season) Covid-19 Vaccine () [facility] Start: 12-23-2023 Influenza vaccination Influenza Vacc ine (#1) [facility] Start: 12-01-2023 Glaucoma screening Diabetes: R etinopathy Screening [facility] Start: 10-15-2023 End: 10-15-2023 Patient encounter procedure 10/15/2023 6:00 PM EDT Office Visit [facility] [address] [place] [id number] Sonya Mejia NP [address] [place] [id number] [facility] Start: 08-26-2023 Hemoglobin A1c measurement Diabetes: Hemoglobin A1C [facility] Start: 08-06-2023 End: 08-05-2024 MG Breast - bilateral Screening Bilateral screening mammogram Imaging Routine Encounter for screening mammogram for malignant neoplasm of breast Expected: 08/06/2023 (Approximate), Expires: 08/05/2024 [facility] Work Phone: Comment on above: Expected: 08/06/2023 (Approximate), Expires: 08/05/2024 Start: 08-05-2023 Screening for malign ant neoplasm of breast Mammogram [facility] Start: 06-07-2023 End: 06-07-2023 Patient encounter procedure [facility] Comment on above: Encounter for screen ing mammogram for malignant neoplasm of breast (Primary Dx) Start: 04-23-2023 Behavioral Health Screening Behavioral Health Screening [facility] Start: 02-15-2023 End: 07-25-2023 OCT MACULA CIRRUS OU (BOTH EYES) OCT MACULA CIRRUS OU (BOTH EYES) [facility] Imaging Routine 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, unspecified whether group home insulin use (HCC) Nuclear sclerotic cataract, bilateral 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, bilateral Expected: 02/15/2023, Expires: 07/25/2023 [facility] Work Phone: Comment on above: Expected: 02/15/2023 , Expires: 07/25/2023 Start: 01-31-2023 Hepatitis C antibody , confirmatory test DILATED RETINAL EXAM [facility] Start: 12-11-2022 Screening for malign ant neoplasm of cervix [facility] Start: 12-06-2022 [facility] Start: 2022 Screening for malign ant neoplasm of colon [facility] Start: 12-12-2021 COVID-19 VACCINE (4 - Booster for Blayne series) COVID-19 VACCINE (4 - Booster for Blayne series) [facility] Start: 04-23-2021 DEPRESSION ASSESSMENT DEPRESSION ASS ESSMENT [facility] Start: 12-12-2019 Screening for malign ant neoplasm of cervix [facility] Start: 08-24-2019 Hepatitis B screening URINE ALBUMIN:CREATININE RATIO [facility] Start: 2017 Mammography MAMMOGRAM [facility] Start: 2017 Screening for malign ant neoplasm of breast Mammogram Screening [facility] Start: 2007 HPV TESTING HPV TESTING [facility] Start: 2007 Screening for malign ant neoplasm of cervix [facility] Start: 1996 Hepatitis B Vaccine (1 of 3 - 19+ 3-dose series) Hepatitis B Vaccine (1 of 3 - 19+ 3-dose series) [facility] Start: 1996 Pneumococcal vaccination Pneum ococcal Vaccine (1 of 2 - PCV) [facility] Start: 1996 Urine microalbumin profile DTAP,TDAP,TD (1 - Tdap) [facility] Start: 1996 Urine screening for protein Diabetes: Urine Protein Screening [facility] Start: 1995 ANNUAL PCP TEAM CYLINDER SANDER OPERATOR ADRIENNE DISEASE VISIT ANNUAL PCP TEAM CHRONIC DISEASE VISIT [facility] Start: 1995 Anxiety Screening Anxiety Screening [facility] Start: 1995 BP CONTROLLED (<130/80) BP CON TROLLED (<130/80) [facility] Start: 1995 Depression Screening Depression Scre ening [facility] Start: 1995 Hepatitis B surface antibody level LDL CHOLESTEROL [facility] Start: 1995 HEPATITIS C SCREENING HEPATITIS C [facility] Start: 1995 Hepatitis C screening Hepatitis C [facility] Start: 1995 HIV SCREENING HIV SCREENING [facility] Start: 1995 HIV screening HIV Screening [facility] Start: 1987 3 comp foot exam completed DIABETIC FOOT EXAM [facility] Start: 1987 Diabetic foot examination Diabetic Foot Exam [facility] Start: 1987 Glaucoma screening Diabetes: R etinopathy Screening [facility] Start: 1983 PNEUMOCOCCAL (1 - PCV) PNEUMOCOCCAL (1 - PCV) [facility] Start: 1983 Pneumococcal vaccination Pneum ococcal Vaccine (1 of 2 - PCV) [facility] Start: 1982 Hemoglobin A1c measurement HbA1C [facility] Start: 1982 Hemoglobin A1c/Hemoglobin.total in Blood HBA1C [facility] Start: 1977 Hemoglobin A1c measurement Diabetes: Hemoglobin A1C [facility] Start: 1977 HEPATITIS B (1 of 3 - 3-dose series) HEPATITIS B (1 of 3 - 3-dose series) [facility] Start: 1977 Medicare Annual Well ness (AWV) Medicare Annual Wellness (AWV) [facility] Start: 1977 Screening for malign ant neoplasm of colon [facility] Alpha 1 antitrypsin [Mass/volume] in Serum or Plasma [facility] Alpha 1 antitrypsin phenotyping [Identifier] in Serum or Plasma by Immunofixation [facility] Bacteria identified in Urine by Culture URINE CULTURE, ROUTINE Lab Routine 02/12/2024 5:00 PM EDT [facility] Work Phone: Comprehensive metabo lic 2000 panel - Serum or Plasma [facility] Elastase.pancreatic [Mass/mass] in Stool [facility] Hepatitis C virus Ig G Ab [Presence] in Serum or Plasma by Immunoassay [facility] Insulin C-peptide measurement [facility] Noninvasive colorect al cancer DNA and occult blood screening [Presence] in Stool Cologuard colon cancer screening Lab Routine Colon cancer screening Ordered: 06/07/2023 [facility] Comment on above: Ordered: 06/07/2023 [facility] Immunizations Immunization Date Immunization Notes Care Provider Erika ricketts 01-30-2024 influenza, seasonal, injectable, preservative free Shaikh Pasquale APODACA Work Phone: [facility] 08-06-2023 tetanus toxoid, redu phoenix diphtheria toxoid, and acellular pertussis vaccine, adsorbed Sonya Aichholz OIL PIPE INSPECTOR Work Phone: [facility] 02-08-2023 influenza, injectabl e, quadrivalent, preservative free Sonya Aichholz OIL PIPE INSPECTOR Work Phone: [facility] 02-08-2023 influenza virus vaccine, unspecified formulation Sonya Aichholz OIL PIPE INSPECTOR Work Phone: [facility] 02-25-2022 SARS-CoV-2 (COVID-19 ) [id number] Donell MCGRATH [facility] [place] 01-11-2022 influenza, injectabl e, quadrivalent, preservative free Sonya Aichholz OIL PIPE INSPECTOR Work Phone: [facility] 10-17-2021 SARS-CoV-2 mRNA ([id number] se) vaccine Donell MCGRATH [facility] 04-06-2021 SARS-CoV-2 (COVID-19 ) mRNA BNT-162b2 vax Donell MCGRATH [facility] Comment on above: Result Comment: 2024: [id number] 01-15-2021 influenza, injectabl e, quadrivalent, preservative free Sonya Aichholz OIL PIPE INSPECTOR Work Phone: [facility] 07-02-2020 COVID-19 Vaccine Blayne - Documentation Purposes Only Glenna Quinones Other [facility] 07-01-2020 SARS-CoV-2 (COVID-19 ) Ad26 vaccine, recombinant Donell MCGRATH [facility] [place] 12-26-2019 influenza, injectabl e, quadrivalent, preservative free Sonya Aichholz OIL PIPE INSPECTOR Work Phone: [facility] 01-08-2019 influenza, injectabl e, quadrivalent, preservative free Richelle Baraona PA-C Work Phone: [facility] 12-31-2017 influenza, injectabl e, quadrivalent, preservative free Richelle Baraona PA-C Work Phone: [facility] 12-19-2016 influenza, injectabl e, quadrivalent, preservative free Sonya Aichholz OIL PIPE INSPECTOR Work Phone: [facility] 12-19-2016 influenza, seasonal, injectable Richelle Baraona PA-C Work Phone: [facility] 12-11-2015 influenza, seasonal, injectable, preservative free Sonya Aichholz OIL PIPE INSPECTOR Work Phone: [facility] 11-26-2014 influenza, seasonal, injectable, preservative free Sonya Aichholz OIL PIPE INSPECTOR Work Phone: [facility] Healthcare Payers Date Payer Category Payer Medicaid [id number] 2019 Medicare [id number] 1977 Unknown [id number] 2.16.84 [id number] 1977 Unknown [id number] 2.16.84 [id number] 1977 Unknown [id number] 2.16.84 [id number] 1977 Unknown [id number] 2.16.84 [id number] 1977 Unknown [id number] 2.16.84 [id number] 1977 Unknown [id number] 2.16.84 [id number] 1977 Unknown [id number] 2.16.84 [id number] 1977 Unknown [id number] 2.16.84 [id number] 1977 Unknown [id number] 2.16.84 [id number] 1977 Unknown [id number] 2.16.8 [id number] 1977 Unknown [id number] 2.16.8 [id number] 1977 Unknown [id number] 2.16.8 [id number] 1959 Medicaid [id number] 1957 Medicare [id number] 2.1 [id number] 1959 Self-pay [id number] 1959 Unknown [id number] Self-pay Self Pay [id number] Unknown [id number] Unknown [id number] Social History Date Type Detail Facility Start: 11-02-2019 End: 01-22-2024 Tobacco smoking status NHIS Ex-smoker (finding) [facility] Start: 1975 Sex Assigned At Female F [facility] Start: 04-01-2023 End: 08-07-2023 Sex Assigned At [facility] Start: 04-23-2002 End: 04-23-2012 History of tobacco use Current smoker [facility] Start: 04-23-2002 End: 04-23-2012 History of tobacco use Cigarette Smoker [facility] Start: 05-15-2017 End: 01-30-2024 Tobacco use and exposure Smokeless tobacco non-user [facility] Start: 01-31-2022 End: 06-03-2024 Alcohol intake Current non-drinker of alcohol (finding) [facility] Start: 1975 Sex Assigned At Not on file [facility] Start: 12-26-2021 End: 01-05-2022 Exposure to SARS-CoV-2 (event) Not sure [facility] Start: 04-02-2023 End: 08-07-2023 Cigarettes smoked current [...] Somewhat hard [facility] Start: 03-03-2024 End: 06-19-2024 Sex Female (finding) [facility] NEGATED: Highlighted rowStart: NINF History of tobacco use Passive smoker [facility] Medical Equipment Procedure Code Equipment Code Equipment Origin al Text Equipment Identifier Dates [id number], [id number] Start: 10-20-2019 Gas [employer]span [employer] [id number] 125gm - [id number] Start: 08-09-2016 Gas [employer]span [employer] [id number] 125gm - [id number] Start: 10-10-2017 Goals Date Patient Goal Desired Activity /State Functional Status Date Assessment Result Facility 06-18-2024 Functional Status N/A [facility] [place] 05-27-2024 Functional Status N/A [facility] [place] Clinical Notes 08-02-2016 to 06-03-2024 Jason Acevedo MD - 06/03/2024 9:37 AM EST Note Date & Type Note Facility 06-03-2024 Note Date of Procedure 06/03/2024. OCT Macula Interpretation Right Eye Abnormal foveal contour. Findings include Epiretinal membrane; Negative for Intraretinal fluid, Subretinal fluid. Left Eye Abnormal foveal contour. Interval Change Right Eye Stable. Notes Poor view [facility] 06-03-2024 Note HNO ID: [id number] Author: JASON ACEVEDO MD Service: ? Author Type: Physician Type: Progress Notes Filed: 06/03/2024 10:45 Note Text: The documentation for the note below was completed in part by Angela Jason acting as a scribe for Jason Acevedo MD. 06/03/2024 9:37 AM. Scribe Attestation: By signing my name below, I, Angela Carolyn Zamora, attest that the documentation in part for [...] Informed pt above may require following with PCP/otologist - DFE shows quiescence - Reviewed RTC [...] all of its relevant components. [facility] 06-03-2024 History of Present illness Narrative The documentation for the note below was completed in part by Angela Jason acting as a scribe for Jason Acevedo MD. 06/03/2024 9:37 AM. Scribe Attestation: By signing my name below, I, Angela Mashahnaz Zamora, attest that the documentation in part for [...] Informed pt above may require following with PCP/otologist - DFE shows quiescence - Reviewed RTC [...] its relevant components. documented in this encounter [facility] 05-27-2024 Note General Surgery Offi ce/Clinic Note [...] day. Previous jamie (more content not included)... [facility] Comment on above: Result Comment: Elec tronically Signed By: RAMILA APODACA, Donell Najera.caro\Date and Time Signed: 05/27/24 14:40 EST 05-15-2024 Evaluation note Diagnosis Onset Date Resolution Type 2 diabetes mellitus with hyperglycemia acute May 15, 2024 9:47am [facility] Work Phone: 1(445) 416-343401-09-2025 History of Present illness Narrative* Sonya Mejia, OIL PIPE INSPECTOR - 05/01/2024 2:35 PM ESTAssociated Problem(s): Colon cancer screening Colon cancer screening [...] Patient has elected to: we do colonscopy * Sonya Mejia NP - 05/01/2024 2:00 PM ESTAssociated Problem(s): Morbid (severe) obesity due to excess calories ([facility]) >>ASSESSMENT AND PLAN FOR CLASS 3 SEVERE OBESITY DUE TO EXCESS CALORIES WITHOUT SERIOUS COMORBIDITY WITH BODY MASS INDEX (BMI) OF 40.0 TO 44.9 IN ADULT ([facility]) WRITTEN ON 05/01/2024 6:57 AM BY SONYA MEJIA NP Discussed with patient their BMI (actual, verses recommended). We have also discussed lifestyle modifications: attempts to perform physical activity as chronic conditions allow, also to monitor dietary intake: increasing protein/fruits/veggies and lowering carb intake (unless contraindicated). Limit sodas, juices, and sugary drinks. Does take mounjaro for her diabetes * Sonya Mejia NP - 05/01/2024 2:00 PM EST Images from the original note were not included. Tasha Paul is a 48 y.o. female presents with chief complaint of Diabetes HPI: Diabetes She presents for her follow-up diabetic visit. She has type 2 diabetes mellitus. Her disease coursehas been stable. Hypoglycemia symptoms include nervousness/anxiousness. Pertinent negatives for hypoglycemia include no dizziness, headaches, seizures or tremors. Pertinent negatives for diabetes incl ude no blurred vision, no chest pain, no [...] or suicidal ideas. Symptoms occur most days. Theseverity of symptoms is moderate. Compliance with medications [...] Date Adenocarcinoma of endometrium, stage 1 ([facility]) 04/30/2017 Total Hysterectomy Anxiety and depression ([facility]) 06/07/2023 Class 3 severe obesity due to excess calories without serious comorbidity with body mass index (BMI) of 40.0 to 44.9 in adult ([facility]) 04/02/2023 Diverticulitis of intestine without perforation or abscess without bleeding, unspecified part of intestinal tract 06/07/2023 Fatty liver History of hysterectomy for cancer 04/30/2017 HLD (hyperlipidemia) ([facility]) 05/24/2023 Learning disabilities 06/07/2023 Narcotic abuse in remission ([facility]) 06/07/2023 Partial blindness 06/07/2023 Type 2 diabetes mellitus with diabetic retinopathy ([facility]) 06/07/2023 without macular edema, unspecified retinopathy severity Type 2 diabetes mellitus, with long-term current use of insulin ([facility]) 04/02/2023 Past Surgical History: Procedure Laterality Date [...] Addressed This Visit Major depressive disorder ([facility]) Relevant Medications sertraline (Zoloft) 50 MG tablet 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 disease) Recommendations: freq small meals, nothing to eat or drink at least 2 hours prior to bed, limit caffeine, alcohol, as well as spicy foods Meds to limit or avoid if possible: NSAIDS Elevate HOB if possible Recommend weight loss Med: omeprazole Relevant Medications omeprazole (PriLOSEC) [address] capsule Hypertension ([facility]) - Primary Please check blood pressure daily and record DASH diet Limit caffeine Take medication as directed Contact office if chest pain, pressure, dizziness, shortness of breath, swelling legs Recommend slow position changes Current meds: amlodipine, yessy Relevant Medications lisinopril 40 MG tablet Type 2 diabetes mellitus, with long-term current use of insulin ([facility]) Check blood sugars daily, notify if [...] to follow with diabetic provider HLD (hyperlipidemia) ([facility]) Relevant Medications atorvastatin (Lipitor) 80 MG tablet Adenocarcinoma of endometrium, stage 1 ([facility]) Had total hysterectomy 04/2017 Follow with [facility]: no, have been released with no follow up from [facility] No vag bleeding, no pelvic pain Anxiety and depression ([facility]) Continue current meds Colon cancer screening [...] Type 2 diabetes mellitus with diabetic cataract ([facility]) Continue with eye exams as scheduled 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) >>ASSESSMENT AND PLAN FOR CLASS 3 SEVERE OBESITY DUE TO EXCESS CALORIES WITHOUT SERIOUS COMORBIDITY WITH BODY MASS INDEX (BMI) OF 40.0 TO 44.9 IN ADULT ([facility]) WRITTEN ON 05/01/2024 6:57 AM BY SONYA MEJIA NP Discussed with patient their BMI (actual, verses recommended). We have also discussed lifestyle modifications: attempts to perform physical activity as chronic conditions allow, also to monitor dietary intake: increasing protein/fruits/veggies and lowering carb intake (unless contraindicated). Limit sodas, juices, and sugary drinks. Does take mounjaro for her diabetes senior living (current) use of insulin ([facility]) Continues with diabetic provider Opioid abuse, in remission ([facility]) Other Visit Diagnoses Class 3 severe obesity due to excess calories without serious comorbidity with body mass index (BMI) of 40.0 to 44.9 in adult ([facility]) Anxiety Relevant Medications sertraline (Zoloft) 50 MG tablet * Sonya Mejia NP - 05/01/2024 7:04 AM ESTAssociated Problem(s): senior living (current) use of insulin ([facility]) Continues with diabetic provider * Sonya Mejia NP - 05/01/2024 7:01 AM ESTAssociated Problem(s): Anxiety and depression (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 edema, unspecified eye ([facility]) Continue w eye doctor * Sonya Mejia NP - 05/01/2024 6:58 AM ESTAssociated Problem(s): Type 2 diabetes mellitus with diabetic cataract ([facility]) Continue with eye exams as scheduled * Sonya Mjeia NP - 05/01/2024 6:57 AM ESTAssociated Problem(s): Class 3 severe obesity due to excess calories without serious comorbidity with body mass index (BMI) of 40.0 to 44.9 in adult ([facility]) (Deleted) Discussed with patient their BMI (actual, verses recommended). We have also discussed lifestyle modifications: attempts to perform physical activity as chronic conditions allow, also to monitor dietary intake: increasing protein/fruits/veggies and lowering carb intake (unless contraindicated). Limit sodas, juices, and sugary drinks. Does take mounjaro for her diabetes * Sonya Mejia NP - 05/01/2024 6:56 AM ESTAssociated Problem(s): Adenocarcinoma of endometrium, stage 1 (CMS/HCC) Had total hysterectomy 04/2017 Follow with [facility]: no, have been released with no follow up from [facility] No vag bleeding, no pelvic pain * Sonya Mejia NP - 05/01/2024 6:56 AM ESTAssociated Problem(s): 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 disease) Recommendations: freq small meals, nothing to eat or drink at least 2 hours prior to bed, limit caffeine, alcohol, as well as spicy foods Meds to limit or avoid if possible: NSAIDS Elevate HOB if possible Recommend weight loss Med: omeprazole * Sonya Mejia NP - 05/01/2024 6:55 AM ESTAssociated Problem(s): Hypertension (CMS/HCC) Please check blood pressure daily and record DASH diet Limit caffeine Take medication as directed Contact office if chest pain, pressure, dizziness, shortness of breath, swelling legs Recommend slow position changes Current meds: amlodipine, yessy documented in this encounterBates County Memorial [id number] Instructions* Patient Instructions* Sonya Mejia NP - 05/01/2024 2:[address] Mcgrath general surgeon, for colonscopy, has offices in [place] and [place] I placed a referral, if no call in 2 weeks, call me to let me know documented in this encounterBates County Memorial [id number] Evaluation note* Diagnosis Onset Date Resolution Status Admit Date ADHD acute March 03, 2024 12:56pm BMI 40.0-44.9, adult acute [facility] 2023 12:56pm Fatty liver acute February 12:56pm GERD (gastroesophageal reflu x disease) acute March 03, 024 12:56pm HLD (hyperlipidemia) acute [facility] 2023 12:56pm senior living current use of insulin acute March 03 024 12:56pm Noncompliance with medicatio n regimen acute March 03 024 12:56pm Retinopathy of both eyes acute March 03, 2024 12:56pm Type 2 diabetes mellitus wit h hyperglycemia acute March 03, 024 12:56pm Weight gain acute February 12:56pm [facility] Work Phone: 1(469) 758-584110-31-2024 History of Present illness Narrative* Sonya Mejia [...] with long-term current use of insulin ([facility]) Check blood sugars daily, notify if [...] her insulin, so she went without See [facility] hospital note and HPI and course [...] Date Adenocarcinoma of endometrium, stage 1 ([facility]) 04/30/2017 Total Hysterectomy Anxiety and depression [place] 06/07/2023 Class 3 severe obesity due to excess calories without serious comorbidity with body mass index (BMI) of 40.0 to 44.9 in adult ([facility] 04/02/2023 Diverticulitis of intestine without perforation or abscess without bleeding, unspecified part of intestinal tract 06/07/2023 Fatty liver History of hysterectomy for cancer 04/30/2017 HLD (hyperlipidemia) ([facility] 05/24/2023 Learning disabilities 06/07/2023 Narcotic abuse in remission ([facility] 06/07/2023 Partial blindness 06/07/2023 Type 2 diabetes mellitus with diabetic retinopathy ([facility] 06/07/2023 without macular edema, unspecified retinopathy severity Type 2 diabetes mellitus, with long-term current use of insulin ([facility] 04/02/2023 Past Surgical History: Procedure Laterality Date [...] with long-term current use of insulin ([facility]) Check blood sugars daily, notify if [...] of 40.0 to 44.9 in adult ([facility]) Colon cancer screening Colon cancer screening [...] coma associated with type 2 diabetes mellitus ([facility]) - Primary Hospital FU Reviewed hospital notes, labs, etc Symptoms have resolved documented in this encounterBates County Memorial [id number] History of Present illness Narrative* Sonya Mejia NP - 01/30/2024 3:28 PM EDTAssociated Problem(s): HLD (hyperlipidemia) ([facility]) Reviewed labs, trigs elevated likely secondary to her uncontrolled diabetes * Sonya Mejia NP - 01/30/2024 3:28 PM EDTAssociated Problem(s): Anxiety and depression ([facility]) Continue current meds * Sonya Mejia NP - 01/30/2024 3:27 PM EDTAssociated Problem(s): Type 2 diabetes mellitus, with long-term current use of insulin ([facility]) Check blood sugars daily, notify if [...] - 01/30/2024 3:27 PM EDTAssociated Problem(s): Hypertension ([facility]) At goal no med dose change [...] Date Adenocarcinoma of endometrium, stage 1 ([facility]) 04/30/2017 Total Hysterectomy Anxiety and depression ([facility]) 06/07/2023 Class 3 severe obesity due to excess calories without serious comorbidity with body mass index (BMI) of 40.0 to 44.9 in adult ([facility]) 04/02/2023 Diverticulitis of intestine without perforation or abscess without bleeding, unspecified part of intestinal tract 06/07/2023 Fatty liver History of hysterectomy for cancer 04/30/2017 HLD (hyperlipidemia) ([facility] 05/24/2023 Learning disabilities 06/07/2023 Narcotic abuse in remission ([facility] 06/07/2023 Partial blindness 06/07/2023 Type 2 diabetes mellitus with diabetic retinopathy ([facility] 06/07/2023 without macular edema, unspecified retinopathy severity Type 2 diabetes mellitus, with long-term current use of insulin ([facility] 04/02/2023 Past Surgical History: Procedure Laterality Date [...] Addressed This Visit Major depressive disorder ([facility]) Relevant Medications sertraline (Zoloft) 50 MG tablet 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 disease) Cont PPI Recommend weight loss Relevant Medications omeprazole (PriLOSEC) [address] capsule Hypertension ([facility]) - Primary At goal no med dose change Reviewed labs Relevant Medications lisinopril 40 MG tablet Type 2 diabetes mellitus, with long-term current use of insulin ([facility]) Check blood sugars daily, notify if [...] of 40.0 to 44.9 in adult ([facility]) HLD (hyperlipidemia) ([facility]) Reviewed labs, trigs elevated likely secondary to her uncontrolled diabetes Relevant Medications atorvastatin (Lipitor) 80 MG tablet Anxiety and depression ([facility]) Continue current meds Colon cancer screening Relevant Orders Ambulatory referral to General Surgery Environmental and seasonal allergies Relevant Medications loratadine (Claritin) 10 MG tablet Other Visit Diagnoses Anxiety Relevant Medications sertraline (Zoloft) 50 MG tablet documented in this encounterBates County Memorial [id number] Telephone encounter Note* Telephone Encounter - Sonya Mejia NP - 01/23/2024 8:04 PM EDT Please tell pt that her labs all look good, with exception of Vit d being slightly low, does she currently take a vit d supplement? If not I would like to start her on one. Let me know and then I cansend something in [place] [facility] [id number] Miscellaneous Notes* Telephone Encounter - Sonya Mejia NP - 01/23/2024 8:04 PM EDT Please tell pt that her labs all look good, with exception of Vit d being slightly low, does she currently take a vit d supplement? If not I would like to start her on one. Let me know and then I cansend something in [place] documented in this encounterBates County Memorial [id number] Evaluation note* Diagnosis Onset Date Resolution Status Admit Date Type 2 diabetes mellitus wit h hyperglycemia acute December 16 12:57pm ADHD acute January 21 1:52pm BMI 40.0-44.9, adult acute [facility]2023 1:52pm Fatty liver acute January 22, 2024 1:52pm GERD (gastroesophageal reflu x disease) acute January 21 1:52pm senior living current use of insulin acute January 21 [...] 03 12:56pm HLD (hyperlipidemia) acute 2023 12:56pm intermediate frame tender current use of insulin acute March 03 12:56pm Noncompliance with medicatio n regimen acute March 03 12:56pm Retinopathy of both eyes acute March 03, 2024 12:56pm Type 2 diabetes mellitus wit h hyperglycemia acute March 03 12:56pm Weight gain acute February 12:56pm [facility] Work Phone: 1(952) 411-657604-16-2024 NoteHNO ID: [id number] Author: JASON ACEVEDO MD Service: ? Author Type: Physician Type: Progress Notes Filed: 08/07/2023 14:05 Note Text: The documentation for the note below was completed in part by Keyla Escobedo acting as a scribe for Jason Acevedo MD. 08/07/2023 1:13 PM. Scribe Attestation: By signing my name below, I, Keyla Gregg, attest that the documentation in part for [...] BS control and close follow up with PCP/otologist - Exam with no NVI or NVD, [...] and agree with all of its relevant components.[facility]04-16-[facility]24 History of Present illness Narrative* Jason [...] BS control and close follow up with PCP/otologist - Exam with no NVI or NVD, [...] of its relevant components. documented in this encounterPremier [facility]02-15-2024 History of Present illness Narrative* Sonya Mejia, OIL PIPE INSPECTOR - 06/07/2023 5:54 PM ESTAssociated Problem(s): Encounter [...] at goal, A1c 10%, continue care with [employer] customer service specialist Check blood sugars daily, notify if [...] - 06/07/2023 5:53 PM ESTAssociated Problem(s): Hypertension (CMS/HCC) At goal no changes in meds * INA UNGER - 06/07/2023 5:00 PM EST Left knee pain Possibly wants to talk about getting a cane due to falls and not being able to see out of the left eye. * Sonya Joaquinjuanfadumo, ABBE - 06/07/2023 5:00 PM EST Images from [...] Diagnosis Date Adenocarcinoma of endometrium, stage 1 ([facility] 04/30/2017 Total Hysterectomy Anxiety and depression ([facility] 06/07/2023 Class 3 severe obesity due to excess calories without serious comorbidity with body mass index (BMI) of 40.0 to 44.9 in adult ([facility] 04/02/2023 Diverticulitis of intestine without perforation or abscess without bleeding, unspecified part of intestinal tract 06/07/2023 Fatty liver History of hysterectomy for cancer 04/30/2017 HLD (hyperlipidemia) ([facility] 05/24/2023 Learning disabilities 06/07/2023 Narcotic abuse in remission ([facility] 06/07/2023 Partial blindness 06/07/2023 Type 2 diabetes mellitus with diabetic retinopathy ([facility] 06/07/2023 without macular edema, unspecified retinopathy severity Type 2 diabetes mellitus, with long-term current use of insulin ([facility] 04/02/2023 Past Surgical History: Procedure Laterality Date [...] mellitus, with long-term current use of insulin ([facility]) Not at goal, A1c 10%, continue care with [employer] customer service specialist Check blood sugars daily, notify if [...] Cologuard colon cancer screening Other Visit Diagnoses intermediate frame tender (current) use of insulin (Z79.4) documented in this encounterBates County Memorial [id number] Evaluation note* Encounter Date Diagnosis Assessment Notes [...] Jan, HTN (hypertension) (ICD-10 - I10) Jan, intermediate frame tender current use of insulin (ICD-10 - Z79.4) [...] Jan, Eating disorder (ICD-10 - F50.9) Defers [facility] [email or web address] Other 09-26-2023 Evaluation note* Encounter Date Diagnosis Assessment Notes [...] spent on education by Rosie CLARK, RN [email or web address] Other 08-01-2023 Evaluation note* Encounter Date Diagnosis [...] f/u with pcp BP ELEVATED TODAY Nov, intermediate frame tender current use of insulin (ICD-10 - Z79.4) [...] VGO review, fills per NR [place] RN/ resident doctor. I have spent 30 minutes with this patient and over 50% of the visit was counseling done by myself, Marcela AMANDA. [email or web address] Other 07-31-2023 Evaluation note* Encounter Date Diagnosis [...] (ICD-10 - K59.00) Pt given miralax samples [email or web address] Other 07-07-2023 Evaluation note* Encounter Date Diagnosis Assessment Notes Treatment Notes Treatment Clinical Notes Oct, Type 2 diabetes mellitus with hyperglycemia (ICD-10 - E11.65) [email or web address] Other 06-27-2023 Evaluation note* Encounter Date Diagnosis [...] spent on education by Rosie CLARK, RN [email or web address] Other 06-20-2023 Evaluation note* Encounter Date Diagnosis Assessment Notes Treatment Notes Treatment Clinical Notes Sep, Type 2 diabetes mellitus with hyperglycemia (ICD-10 - E11.65) [email or web address] Other 05-10-2023 Evaluation note* Encounter Date Diagnosis [...] have episode of abdominal pain at the [facility], lipase was low, no suspicion [...] well with high surveillance by our office. [facility] reviewed. Appears she has follow-up [...] f/u with pcp BP ELEVATED TODAY August, senior living current use of insulin (ICD-10 - Z79.4) [...] VGO review, fills per NR [place] RN/ resident doctor. I have spent 30 minutes with this patient and over 50% of the visit was counseling done by myself, Marcela AMANDA. [email or web address] Other 04-01-2023 History general Narrative - Reported* Type Description Date Medical History DM 2 Medical History HYPERTENSION Medical History DEPRESSION Medical History Opioid abuse Medical History retinopathy bilateral eyes Medical History cystic lesion esophagus 07/2022 B [facility] Surgical History RIGHT EYE SURGERY Surgical History LT eye surgery Surgical History hysterectomy 04/2017 Hospitalization History DKA 06/2019 Hospitalization History DKA 0 Hospitalization History [facility]-ER 4-2 023 [email or web address] Other 03-29-2023 Evaluation note* Encounter Date Diagnosis [...] switched PCP providers to Sonya Hardy from [facility]. Pt seems in high spirits regarding physician. [...] spent on education by Rosie CLARK, RN [email or web address] Other 01-04-2023 Evaluation note* Encounter Date Diagnosis [...] Pt reports she has been sick since [place] on 04/15/22 and is currently ill. [...] spent on education by Rosie CLARK, RN [email or web address] Other 11-22-2022 Evaluation note* Encounter Date Diagnosis [...] spent on education by Rosie CLARK, RN. [email or web address] Other 10-27-2022 Evaluation note* Encounter Date Diagnosis [...] (ICD-10 - I10) f/u with pcp Jan, senior living current use of insulin (ICD-10 - Z79.4) [...] was counseling done by myself, Marcela AMANDA. [email or web address] Other 10-11-2022 History of Present illness Narrative* Richelle Monreal PA-C - 01/31/2022 1:00 PM EDT [...] control - Continue close follow up with PCP/otologist - VA unchanged - OCT stable without [...] VA stable at (HM preop and fluctates /CF) - Unable to obtain OCT today - [...] if new symptoms develop. documented in this encounterPremier Health [facility] Center10-06-2022 Evaluation note* Encounter Date Diagnosis Assessment Notes [...] with the patient by Heriberto Downs RN, [facility]. [email or web address] Other 06-07-2022 Evaluation note* Encounter Date Diagnosis [...] (ICD-10 - I10) f/u with pcp Sep, intermediate frame tender current use of insulin (ICD-10 - Z79.4) [...] was counseling done by myself, Marcela AMANDA. [email or web address] Other 04-27-2022 Evaluation note* Encounter Date Diagnosis [...] units/click) with [employer] 40 according to meals. Noo report downloaded and discussed with TAYLOR Killian. [...] spent on education by Rosie CLARK, RN. [email or web address] Other 04-13-2022 Evaluation note* Encounter Date Diagnosis Assessment Notes Treatment Notes Treatment Clinical Notes Jul, Type 2 diabetes mellitus with hyperglycemia (ICD-10 - E11.65) [email or web address] Other 04-12-2022 Evaluation note* Encounter Date Diagnosis [...] weekly, x 1 episode of emesis after [place] food. If tolerating without further episodes of emesis can increase at DSME visit to 0.5 mg weekly. Discuss sick day management with patient, needs further review. Hold on SGLT2i_ _ patient with history of EUGLYCEMIC DKA IN THE PAST. _ __ _Blood glucoses have remained elevated, but seems to have increased vigilence. Following up on LIBRE2 SYSTEM from [employer] (has used Libre14 day in the past [...] (ICD-10 - I10) f/u with pcp Jul, senior living current use of insulin (ICD-10 - Z79.4) [...] was counseling done by myself, Marcela AMANDA. [email or web address] Other 03-28-2022 Evaluation note* Encounter Date Diagnosis Assessment Notes Treatment Notes Treatment Clinical Notes Jun, Type 2 diabetes mellitus with hyperglycemia (ICD-10 - E11.65) [email or web address] Other 03-15-2022 Evaluation note* Encounter Date Diagnosis [...] (ICD-10 - I10) f/u with pcp Jun, senior living current use of insulin (ICD-10 - Z79.4) [...] was counseling done by myself, Marcela AMANDA. [email or web address] Other 03-15-2022 Evaluation note* Encounter Date Diagnosis [...] (ICD-10 - I10) f/u with pcp Jun, senior living current use of insulin (ICD-10 - Z79.4) [...] was counseling done by myself, Marcela AMANDA. [email or web address] Other 01-05-2022 Evaluation note* Encounter Date Diagnosis Assessment Notes Treatment Notes Treatment Clinical Notes Apr, Type 2 diabetes mellitus with hyperglycemia (ICD-10 - E11.65) [email or web address] Other 12-20-2021 Evaluation note* Encounter Date Diagnosis [...] (ICD-10 - I10) f/u with pcp Mar, intermediate frame tender current use of insulin (ICD-10 - Z79.4) [...] was counseling done by myself, Marcela AMANDA. [email or web address] Other 11-22-2021 Evaluation note* Encounter Date Diagnosis Assessment Notes Treatment Notes Treatment Clinical Notes Feb, Type 2 diabetes mellitus with hyperglycemia (ICD-10 - E11.65) [email or web address] Other 04-12-2017 History of Past illness Narrative* Problem Noted Date Resolved Date Diabetes 08/02/2016 documented as of this encounter (statuses as of 01/31/2022) [facility]04-12-[facility] History of Past illness Narrative* Problem Noted Date Diagnosed Date Resolved Date Diabetes 08/02/2016 documented as of this encounter (statuses as of 08/08/2023) [facility] CenterEvaluation + Plan note No data available for this section [facility] General Surgery [place] Evaluation noteNo assessment information available [facility] CtrEvaluation noteNort [employer] Other Evaluation noteNo InformationNort [employer] Other Evaluation note* Diagnosis 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, unspecified whether long winder tender insulin use (HCC)- Primary Nuclear sclerotic cataract, bilateral 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, bilateral documented in this encounter [facility] CenterEvaluation [facility]* Diagnosis Mixed hyperlipidemia (CMS/HCC)- Primary Mixed hyperlipidemia documented in this encounter [facility] HealthcareEvaluation note* Diagnosis Encounter for subsequent annual wellness visit (AWV) in Medicare patient- Primary Encounter for screening mammogram for malignant neoplasm of breast Primary hypertension (CMS/HCC) Unspecified essential hypertension Gastroesophageal reflux disease, unspecified whether esophagitis present 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, with long-term current use of insulin, macular edema presence unspecified, unspecified laterality, unspecified proliferative retinop* (CMS/HCC) Class 3 severe obesity due to excess calories without serious comorbidity with body mass index (BMI) of 40.0 to 44.9 in adult (CMS/HCC) Anxiety and depression (CMS/HCC) senior living (current) use of insulin (Z79.4) Colon cancer screening Special screening for malignant neoplasms, colon documented in this encounter [facility]* Diagnosis 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, unspecified whether long winder tender insulin use ([facility])- Primary 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, bilateral Nuclear sclerotic cataract, bilateral documented in this encounter [facility]* Diagnosis Onset Date Resolution Status Type 2 diabetes mellitus with hyperglycemia acute [facility] Work Phone: Evaluation note* Diagnosis Onset Date Resolution Status Type 2 diabetes mellitus with hyperglycemia acute ADHD acute BMI 40.0-44.9, adult acute Fatty liver acute 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 disease) acute intermediate frame tender current use of insulin acute Noncompliance with medication regimen acute Retinopathy of both eyes acu te Type 2 diabetes mellitus with hyperglycemia acute Weight gain acute [facility] Work Phone: evaluation note* Diagnosis Onset Date Resolution Status ADHD acute BMI 40.0-44.9, adult acute Fatty liver acute 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 disease) acute senior living current use of insulin acute Noncompliance with medication regimen acute Retinopathy of both eyes acu te Type 2 diabetes mellitus with hyperglycemia acute Weight gain acute Type 2 diabetes mellitus with hyperglycemia acute [facility] Work Phone: Evaluation note* Diagnosis Onset Date Resolution Status Type 2 diabetes mellitus with hyperglycemia acute ADHD acute BMI 40.0-44.9, adult acute Fatty liver acute 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 disease) acute intermediate frame tender current use of insulin acute Noncompliance with medication regimen acute Retinopathy of both eyes acu te Type 2 diabetes mellitus with hyperglycemia acute Weight gain acute Type 2 diabetes mellitus with hyperglycemia acute [facility] Work Phone: evaluation note* Diagnosis Primary hypertension (CMS/HCC)- Primary Unspecified essential hypertension Mixed hyperlipidemia ([facility]) Mixed hyperlipidemia Environmental and seasonal allergies Gastroesophageal reflux disease, unspecified whether esophagitis present Anxiety Anxiety state, unspecified Major depressive disorder with single episode, remission status unspecified ([facility]) Colon cancer screening Special screening for malignant neoplasms, colon 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, with long-term current use of insulin, macular edema presence unspecified, unspecified laterality, unspecified proliferative retinop* ([facility]) Class 3 severe obesity due to excess calories without serious comorbidity with body mass index (BMI) of 40.0 to 44.9 in adult ([facility]) Anxiety and depression ([facility]) documented in this encounter [facility]* Diagnosis Primary hypertension ([facility])- Primary Unspecified essential hypertension 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, with long-term current use of insulin, macular edema presence unspecified, unspecified laterality, unspecified proliferative retinop* ([facility]) Class 3 severe obesity due to excess calories without serious comorbidity with body mass index (BMI) of 40.0 to 44.9 in adult ([facility]) Encounter for subsequent annual wellness visit (AWV) in Medicare patient- Primary Encounter for screening mammogram for malignant neoplasm of breast Primary hypertension ([facility]) Unspecified essential hypertension Gastroesophageal reflux disease, unspecified whether esophagitis present 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, with long-term current use of insulin, macular edema presence unspecified, unspecified laterality, unspecified proliferative retinop* ([facility]) Class 3 severe obesity due to excess calories without serious comorbidity with body mass index (BMI) of 40.0 to 44.9 in adult ([facility]) Anxiety and depression ([facility]) intermediate frame tender (current) use of insulin (Z79.4) Colon cancer screening Special screening for malignant neoplasms, colon Primary hypertension ([facility])- Primary Unspecified essential hypertension Malignant neoplasm of endometrium ([facility]) Malignant neoplasm of corpus uteri, except isthmus Opioid abuse, in remission ([facility]) Opioid abuse, in remission Mixed hyperlipidemia ([facility]) Mixed hyperlipidemia Anxiety Anxiety state, unspecified Major depressive disorder with single episode, remission status unspecified ([facility]) Gastroesophageal reflux disease, unspecified whether esophagitis present Environmental and seasonal allergies Class 3 severe obesity due to excess calories without serious comorbidity with body mass index (BMI) of 40.0 to 44.9 in adult ([facility]) Colon cancer screening Special screening for malignant neoplasms, colon Primary hypertension ([facility])- Primary Unspecified essential hypertension Mixed [facility]lipidemia [facility] Mixed hyperlipidemia Environmental and seasonal allergies Gastroesophageal reflux disease, unspecified whether esophagitis present Anxiety Anxiety state, unspecified Major depressive disorder with single episode, remission status unspecified [place] Colon cancer screening Special screening for malignant neoplasms, colon 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, with long-term current use of insulin, macular edema presence unspecified, unspecified laterality, unspecified proliferative retinop* ([facility] Class 3 severe obesity due to excess calories without serious comorbidity with body mass index (BMI) of 40.0 to 44.9 in adult ([facility] Anxiety and depression ([facility]) Need for immunization against influenza Need for prophylactic vaccination and inoculation against influenza Diabetic ketoacidosis without coma associated with type 2 diabetes mellitus ([facility] Primary 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, with long-term current use of insulin, macular edema presence unspecified, unspecified laterality, unspecified proliferative retinop* ([facility] Class 3 severe obesity due to excess calories without serious comorbidity with body mass index (BMI) of 40.0 to 44.9 in adult ([facility] Colon cancer screening Special screening for malignant neoplasms, colon [facility] Diagnosis Primary hypertension ([facility])- Primary Unspecified essential hypertension 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, with long-term current use of insulin, macular edema presence unspecified, unspecified laterality, unspecified proliferative retinop* ([facility] Class 3 severe obesity due to excess calories without serious comorbidity with body mass index (BMI) of 40.0 to 44.9 in adult ([facility]) Encounter for subsequent annual wellness visit (AWV) in Medicare patient- Primary Encounter for screening mammogram for malignant neoplasm of breast Primary hypertension ([facility]) Unspecified essential hypertension Gastroesophageal reflux disease, unspecified whether esophagitis present 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, with long-term current use of insulin, macular edema presence unspecified, unspecified laterality, unspecified proliferative retinop* ([facility] Class 3 severe obesity due to excess calories without serious comorbidity with body mass index (BMI) of 40.0 to 44.9 in adult ([facility] Anxiety and depression ([facility]) senior living (current) use of insulin (Z79.4) Colon cancer screening Special screening for malignant neoplasms, colon Primary hypertension ([facility] Primary Unspecified essential hypertension Malignant neoplasm of endometrium (CMS/HCC) Malignant neoplasm of corpus uteri, except isthmus Opioid abuse, in remission ([facility]) Opioid abuse, in remission Mixed hyperlipidemia ([facility]) Mixed hyperlipidemia Anxiety Anxiety state, unspecified Major depressive disorder with single episode, remission status unspecified ([facility]) Gastroesophageal reflux disease, unspecified whether esophagitis present Environmental and seasonal allergies Class 3 severe obesity due to excess calories without serious comorbidity with body mass index (BMI) of 40.0 to 44.9 in adult ([facility] Colon cancer screening Special screening for malignant neoplasms, colon Primary hypertension ([facility])- Primary Unspecified essential hypertension Mixed hyperlipidemia ([facility]) Mixed hyperlipidemia Environmental and seasonal allergies Gastroesophageal reflux disease, unspecified whether esophagitis present Anxiety Anxiety state, unspecified Major depressive disorder with single episode, remission status unspecified ([facility]) Colon cancer screening Special screening for malignant neoplasms, colon 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, with long-term current use of insulin, macular edema presence unspecified, unspecified laterality, unspecified proliferative retinop* ([facility] Class 3 severe obesity due to excess calories without serious comorbidity with body mass index (BMI) of 40.0 to 44.9 in adult ([facility]) Anxiety and depression ([facility]) Need for immunization against influenza Need for prophylactic vaccination and inoculation against influenza Diabetic ketoacidosis without coma associated with type 2 diabetes mellitus ([facility] Primary 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, with long-term current use of insulin, macular edema presence unspecified, unspecified laterality, unspecified proliferative retinop* ([facility] Class 3 severe obesity due to excess calories without serious comorbidity with body mass index (BMI) of 40.0 to 44.9 in adult ([facility]) Colon cancer screening Special screening for malignant neoplasms, colon Primary hypertension ([facility])- Primary Unspecified essential hypertension Type 2 diabetes mellitus with diabetic cataract ([facility]) Type II or unspecified type diabetes mellitus with ophthalmic manifestations, not stated as uncontrolled 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, with long-term current use of insulin, macular edema presence unspecified, unspecified laterality, unspecified proliferative retinop* ([facility]) Opioid abuse, in remission ([facility] Opioid abuse, in remission intermediate frame tender (current) use of insulin ([facility] Morbid (severe) obesity due to excess calories (CMS/HCC) Body mass index (BMI) 40.0-44.9, adult ([facility]) Gastroesophageal reflux disease, unspecified whether esophagitis present Adenocarcinoma of endometrium, stage 1 ([facility]) Class 3 severe obesity due to excess calories without serious comorbidity with body mass index (BMI) of 40.0 to 44.9 in adult (CMS/HCC) Anxiety and depression (CMS/HCC) Mixed hyperlipidemia ([facility]) Mixed hyperlipidemia Environmental and seasonal allergies Anxiety Anxiety state, unspecified Major depressive disorder with single episode, remission status unspecified ([facility]) Colon cancer screening Special screening for malignant neoplasms, colon documented in this encounter [facility]* Diagnosis 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, unspecified whether long winder tender insulin use (HCC)- Primary 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, bilateral Nuclear sclerotic cataract, bilateral documented in this encounter [facility] general Narrative - Reported* Type Description Date Medical History DM 2 Medical History HYPERTENSION Medical History DEPRESSION Medical History Opioid abuse Medical History retinopathy bilateral eyes Surgical History RIGHT EYE SURGERY Surgical History LT eye surgery Surgical History hysterectomy 04/2017 Hospitalization History DKA 06/2019 Hospitalization History DKA 0 [facility] nodila Other History general [facility] - [facility] Other Hospital Discharge instructions No data available for this section [facility] [place] Progress note No data available for this section [facility] [place] Reason for referral (narrative)* Consultation (Routine) - Pending Review Specialty Diagnoses / Procedures Referred By Kezia t Referred To Contact General Surgery Diagnoses Colon cancer screening Procedures AL OFFICE/OUTPATIENT NEW HIGH MDM 60 MINUTES Sonya Mejia NP [address] [place] [address] Aram Casey DO [address] [facility] [address] [place] [address] Referral ID Status Reason Start Date Expiration Date Visits Requested Visits Authorized [id number] Pending Review Specialty Services Required 01/30/2024 07/28/2024 1 1 [facility] Chief Complaint and Reason for Visit [...] adult Fatty liver 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 disease) senior living current use of insulin Noncompliance with medication regimen Retinopathy of both eyes Type 2 diabetes mellitus with hyperglycemia Weight gain Chief Complaint DMN f/u / meter E11.65 DL per DS Reason for Visit ADHD BMI 40.0-44.9, adult Fatty liver 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 disease) senior living current use of insulin Noncompliance with medication regimen Retinopathy of both eyes Type 2 diabetes mellitus with hyperglycemia Weight gain Type 2 diabetes mellitus with hyperglycemia Chief Complaint DL per DS DMN f/u / meter Reason for Visit Type 2 diabetes marti itus with hyperglycemia ADHD BMI 40.0-44.9, adult Fatty liver 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 disease) senior living current use of insulin Noncompliance with medication regimen Retinopathy of both eyes Type 2 diabetes mellitus with hyperglycemia Weight gain Chief Complaint DL per DS DMN f/u / meter 2 week DL Reason for Visit Type 2 diabetes marti itus with hyperglycemia ADHD BMI 40.0-44.9, adult Fatty liver 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 disease) senior living current use of insulin Noncompliance with medication regimen Retinopathy of both eyes Type 2 diabetes mellitus with hyperglycemia Weight gain Type 2 diabetes mellitus with hyperglycemia Chief Complaint DMN f/u / meter 2 week DL DMN f/u-METER Reason for Visit ADHD BMI 40.0-44.9, adult Fatty liver 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 disease) senior living current use of insulin Noncompliance with medication regimen Retinopathy of both eyes Type 2 diabetes mellitus with hyperglycemia Weight gain Type 2 diabetes mellitus with hyperglycemia Chief Complaint Admit Date 2 week DL December 17, 2023 12 :57pm DMN f/u-METER January 22, 2024 1: 52pm lvm to move appt 02-07-2024 METER Novemb er 2023 12:56pm Reason for Visit Admit Date Type 2 diabetes mellitus with hyperglyce juan December 17, 2023 12:57pm ADHD January 22, 2024 1: 52pm BMI 40.0-44.9, adult January 22, 2024 1 :52pm Fatty liver January 22, 2024 1: 52pm 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 disease) O ctober 2023 1:52pm senior living current use of insulin January 22, 2024 1:52pm Noncompliance with medication regimen Oc tober 2023 1:52pm Retinopathy of both eyes January 21 1:52pm Type 2 diabetes mellitus with hyperglyce juan January 22, 2024 1:52pm Weight gain January 22, 2024 1: 52pm ADHD March 03, 2024 12:56pm BMI 40.0-44.9, adult March 03, 2024 12:56pm Fatty liver March 03, 2024 12:56pm 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 disease) N ovember 2023 12:56pm HLD (hyperlipidemia) March 03, 2024 12:56pm intermediate frame tender current use of insulin Novembe r 2023 [...] 12:56pm HLD (hyperlipidemia) March 03, 2024 12:56pm senior living current use of insulin Novembe r 2023 12:56pm Noncompliance with medication regimen No vember 2023 12:56pm Retinopathy of both eyes March 03, 2024 12:56pm Type 2 diabetes mellitus with hyperglyce juan March 03, 2024 12:56pm Weight gain March 03, 2024 12:56pm Chief Complaint Admit Date Diabetes Follow Up May 15, 2024 9 :47am Unknown June 04, 2024 1:53pm Reason for Visit Admit Date Type 2 diabetes mellitus with hyperglyce juan May 15, 2024 9:47am Chief Complaint Admit Date Diabetes Follow Up May 15, 2024 9 :47am Unknown June 04, 2024 1:53pm 3 month-DMN f/u June 19, 2024 2:53pm Advance Directives No Advanced Directives Records Found Advance Directive Response Recorded Date/ Time Advance Directives No January 31, 2018 4:17pm Advance Directive Response Recorded Date/ Time Advance Directives No January 31, 2018 3:17pm Reason for Referral Reason Establish Diabetic F oot Care, Callous on left big toe Diagnosis 1 Type 2 diabetes marti itus with hyperglycemia (E11.65) Diagnosis 2 Callus of toe (L84) Referral Organization [facility] Referring Provider First Name Glenna Referring Provider Last Name Joni Referring Provider Specialty Nurse Pract itioner Referred Organization Podiatry Referred Address [address],[place], [place],[address] Referred Provider Specialty Podiatry - S urgical [...] alternate section No data available for this sectionGoals may be documented in an alternate section No data available for this sectionGoals may be documented in an alternate [...] or prosecute any alcohol or drug abuse patient.[facility] the event this information is protected by the Federal Confidentiality of Alcohol and Drug Abuse Patient Records regulations: The Federal rules restrict any use of the information to criminally investigate or prosecute any alcohol or drug abuse patient.[facility] Center[facility] the event this information is protected by the Federal Confidentiality of Alcohol and Drug Abuse Patient Records regulations: The Federal rules restrict any use of the information to criminally investigate or prosecute any alcohol or drug abuse patient.[facility] Care Teams (unrecognized sec tion and content) Team Status: Active Member Role Status Dates Sonya Mejia Primary Care Provider Active Team Status: Inactive Member Role Status Dates Services [facility] Primary Care Provider Active Start: May 28, 2023 End: May 28, 2023 Mariam Beyer APRN Attending Provider Active Start: May 28, 2023 End: May 28, 2023 Director Of Public Health Relationship Specialty Start Date End Date Kim Owens MD [address] [place] [address] PCP - General Family Medicine 06/07/18 Team Status: Active Member Role Status Dates Services [facility] Primary Care Provider Active Mariam Beyer APRN Attending Provider Active Team Status: Inactive Member Role Status Dates Sonya Timothy Mejia Primary Care Provider Active Glenna Quinones APRN Attending Provider Active Team Status: Inactive Member Role Status Dates Sonya Timothy Mejia Primary Care Provider Active Mark Gramajo APRN Attending Provider Active Director Of Public Health Relationship Specialty Start Date End Date Abad Garcia MD PCP - General Family Medicine 11/13/22 Sonya Mejia NP [address] [place] [phone] Referring Physician Nurse Practitioner 11/13/22 Director Of Public Health Relationship Specialty Start Date End Date Abad Garcia MD [address] [place] [phone] PCP - General Family Medicine 06/07/23 Sonya Mejia NP [address] [place] [phone] Referring Physician Nurse Practitioner 11/13/22 Sonya Mejia NP [address] [place] [phone] Nurse Practitioner Family Medicine 06/07/23 Director Of Public Health Relationship Specialty Start Date End Date Abad Garcia MD [address] [place] [address] PCP - General Family Medicine 06/07/23 Sonya Mejia NP [address] [place] [phone] Referring Physician Nurse Practitioner 11/13/22 Sonya Mejia NP [address] [place] [phone] Nurse Practitioner Family Medicine 06/07/23 Director Of Public Health Relationship Specialty Start Date End Date Kim Owens MD [address] [place] [address] PCP - General Family Medicine 06/07/18 Team Status: Active Member Role Status Dates Sonya Mejia Primary Care Provide r, Attending Provider Active Start: May 28, 2023 Team Status: Inactive Member Role Status Dates Sonya Mejia Primary Care Provider Active Sta rt: June 26, 2023 End: June 26, 2023 Blane Downs , DINORAH Attending Provider Active St art: June [...] Inactive Member Role Status Dates Sonya Aguirre Emaniosvaldofadumo Primary Care Provider Active Sta rt: November 26, 2023 End: November 26, 2023 Glenna Quinones APRN Attending Provider Active Start: November 26, 2023 End: November 26, 2023 Team Status: Inactive Member Role Status Dates Sonya Timothy Joaquindanishclyde Primary Care Provider Active Sta rt: December 17, 2023 End: December 17, 2023 Rosie Witt RN Attending Provider Active Start: December 17, 2023 End: December 17, 2023 Glenna Quinones APRN Active Star t: December 17, 2023 End: December 17, 2023 Team Status: Inactive Member Role Status Dates Sonyasiddhartha Mejia Primary Care Provider Active Sta rt: January 22, 2024 End: January 22, 2024 Glenna Quinones APRN Attending Provider Active Start: January 22, 2024 End: January 22, 2024 Director Of Public Health Relationship Specialty Start Date End Date Abad Garcia MD [address] [place] [phone] PCP - General Family Medicine 06/07/23 Sonya Mejia NP [address] [place] [phone] Referring Physician Nurse Practitioner 11/13/22 Sonya Mejia NP [address] [place] [address] Nurse Practitioner Family Medicine 06/07/23 Director Of Public Health Relationship Specialty Start Date End Date Abad Garcia MD [address] [place] [address] PCP - General Family Medicine 06/07/23 Sonya Mejia NP [address] [place] [phone] Referring Physician Nurse Practitioner 11/13/22 Sonya Mejia NP [address] [place] [address] Nurse Practitioner Family Medicine 06/07/23 Director Of Public Health Relationship Specialty Start Date End Date Abad Garcia MD [address] [place] [phone] PCP - General Family Medicine 06/07/23 Sonya Mejia NP [address] [place] [phone] Referring Physician Nurse Practitioner 11/13/22 Sonya Mejia NP [address] [place] [phone] Nurse Practitioner Family Medicine 06/07/23 Director Of Public Health Relationship Specialty Start Date End Date Unallocated, Vince Trotter MD [address] [place] [address] PCP - General Family Medicine 02/12/24 Sonya Mejia NP [address] [place] [phone] Referring Physician Nurse Practitioner 11/13/22 Sonya Mejia NP [address] [place] [address] Nurse Practitioner Family Medicine 06/07/23 Director Of Public Health Relationship Specialty Start Date End Date Unallocated, Vince Trotter MD [address] [place] [address] PCP - General Family Medicine 02/12/24 Sonya Mejia NP [address] [place] [address] Referring Physician Nurse Practitioner 11/13/22 Sonya Mejia NP [address] [place] [address] Nurse Practitioner Family Medicine 06/07/23 Director Of Public Health Relationship Specialty Start Date End Date Unallocated, Vince Trotter MD [address] [place] [address] PCP - General Family Medicine 02/12/24 Sonya Mejia NP [address] [place] [address] Referring Physician Nurse Practitioner 11/13/22 Sonya Mejia NP [address] [place] [phone] Nurse Practitioner Family Medicine 06/07/23 Team Status: Active Member Role Status Dates Sonya Mejia Primary Care Provider Active Sta rt: February 11, 2024 End: February 13, 2024 Marques Goel DO Attending Provider Active Sta rt: February 11, 2024 End: February 13, 2024 Shaikh Pasquale MD Referring Provider Active Sta rt: February 11, 2024 End: October 23rd, 2024 Team Status: Inactive Member Role Status Dates Sonya Mejia Primary Care Provider Active Sta rt: March 03, 2024 End: March 03, 2024 Glenna Quinones APRN Attending Provider Active Start: March 03, 2024 End: March 03, 2024 Director Of Public Health Relationship Specialty Start Date End Date Abad Garcia MD [address] [place] [phone] PCP - General Family Medicine 02/21/24 Sonya Mejia NP [address] [place] [phone] Referring Physician Nurse Practitioner 11/13/22 Sonya Mejia NP [address] [place] [phone] Nurse Practitioner Family Medicine 06/07/23 Director Of Public Health Relationship Specialty Start Date End Date Abad Garcia MD [address] [place] [phone] PCP - General Family Medicine 02/21/24 Sonya Mejia NP [address] [place] [phone] Referring Physician Nurse Practitioner 11/13/22 Sonya Mejia NP [address] [place] [phone] Nurse Practitioner Family Medicine 06/07/23 Team Status: Inactive Member Role Status Dates Sonya Mejia Primary Care Provider Active Sta rt: May 15, 2024 End: May 15, 2024 Blane Downs RN Attending Provider Active St art: May 15, 2024 End: May 15, 2024 Glenna Quinones APRN Active Star t: May 15, 2024 End: May 15, 2024 Director Of Public Health Relationship Specialty Start Date End Date Kim Owens MD [address] [place] [address] PCP - General Family Medicine 06/07/18 Team Status: Inactive Member Role Status Dates Donell Mcgrath MD FACS Attending Provider Active Start: June 04, 2024 End: June 04, 2024 Team Status: Inactive Member Role Status Dates Sonya Mejia Primary Care Provider Active Sta rt: June 19, 2024 End: June 19, 2024 Glenna Quinones APRN Attending Provider Active Start: June 19, 2024 End: June 19, 2024 INFORMATION SOURCE (unrecogn ized section and content) DATE CREATED AUTHOR 09/07/2022 [facility] DATE CREATED AUTHOR AUTHOR'S ORGANIZ ATION 05/06/2024 [facility] EPIC DATE CREATED AUTHOR AUTHOR'S ORGANIZ ATION 06/05/[address] [facility] DATE CREATED AUTHOR AUTHOR'S ORGANIZ ATION 06/08/2024 [facility] DATE CREATED AUTHOR AUTHOR'S ORGANIZ ATION 06/20/2024 [facility] Inactive Administered Medications - up [...] BE BASED ON THE PRIMARY CLINICAL RECORDS. [facility]. provides no warranty or guarantee of the accuracy or completeness of information in this document.
[2024-07-10 08:46] LABS: Alanine Aminotransferase 26 U/L (14-59); Albumin Globulin Ratio 0.8; Albumin Level 3.2 g/dL (3.4-5.0); Alkaline Phosphatase 126 U/L (46-116); Anion Gap 14.6; Aspartate Amino Transferase 16 U/L (15-37); BUN Creatinine Ratio 23.1; Bilirubin Total 0.4 mg/dL (0.2-1.0); Calcium 9.1 mg/dL (8.5-10.1); Carbon Dioxide 24.6 mmol/L (21.0-32.0); Chloride 103 mmol/L (98-107); Estimated GFR (African America >60 (>=60 mL/min/1.73m^2); Estimated GFR (Non-African Ame >60 (>=60 mL/min/1.73m^2); Globulin 3.8 g/dL; Glucose 185 mg/dL (74-106); Potassium 4.2 mmol/L (3.5-5.1); Sodium 138 mmol/L (136-145)
[2024-07-11 12:08] LABS: C-Peptide, Serum 3.3 ng/mL (1.1-4.4)
== END 2024-07-10 07:34 | disposition home or self-care (01) ==
LOC: LAB 07:35
PROVIDERS: PCP Nurse Practitioner; Visit Provider Nurse Practitioner Family
DX: E11.65 Type 2 diabetes mellitus with hyperglycemia (principal); E88.810 Metabolic syndrome; Z79.4 Long term (current) use of insulin; E78.5 Hyperlipidemia, unspecified; E24.9 Cushing's syndrome, unspecified
CPT/HCPCS: 36415; 80053; 80299; 82533; 84681

== ENCOUNTER 2024-08-06 13:23 | Outpatient (OUT) | payer MEDICARE, SELFPAY ==
--- NOTE | 2024-08-06 13:26 | MM_ITS ---
Patient Name: HE REVELES MR#: [id number] : 1975 Exam Date: 08/06/2024 Ordering Doctor: DENISE Mejia CNP RADIOLOGY REPORT PROCEDURE: MM TOMOSYNTHESIS SCREENING BI COMPARISON: MM TOMOSYNTHESIS SCREENING BI, 08/06/2023. MG MAMM SCREEN 3D CORNEL CAD, 08/04/2022. MG MAMM SCREEN CORNEL W CAD, 12/25/2017. INDICATIONS: Screening for malignant neoplasm Calculator Name NCI Breast Cancer Risk Assessment Tool 5 Year Breast Cancer Risk 1.40% Lifetime Breast Cancer Risk 12.30% Personal Breast Cancer No Personal Ovarian Cancer No Treatments hysterectomy, cornel oopherectomy Family Cancers Mother with ovarian cancer at age 40; Aunt-maternal with ovarian cancer at age 35; Aunt-maternal with ovarian cancer at age 40. LOCATION: [facility] BREAST COMPOSITION: The breasts are almost entirely fatty. FINDINGS: DIAGNOSTIC CATEGORY 1--NEGATIVE. LEFT BREAST: No significant suspicious finding. RIGHT BREAST: No significant suspicious finding. RECOMMENDATIONS: ROUTINE MAMMOGRAM AND CLINICAL EVALUATION IN 12 MONTHS. PLEASE NOTE: A NORMAL MAMMOGRAM DOES NOT EXCLUDE THE POSSIBILITY OF BREAST CANCER. A CLINICALLY SUSPICIOUS PALPABLE LUMP SHOULD BE BIOPSIED. Dictated by: Cipriano Truong DO on 08/06/2024 at 14:32 Approved by: Cipriano Truong DO on 08/06/2024 at 14:49
== END 2024-08-06 13:24 | disposition home or self-care (01) ==
LOC: MAMMO 13:24
PROVIDERS: PCP Nurse Practitioner; Visit Provider Nurse Practitioner
DX: Z12.31 Encounter for screening mammogram for malignant neoplasm of breast (principal); Z80.41 Family history of malignant neoplasm of ovary
CPT/HCPCS: 77063; 77067

== ENCOUNTER 2024-10-29 12:37 | Outpatient (OUT) | payer MEDICARE, SELFPAY ==
[2024-10-29 13:11] LABS: Hematocrit 41.4 % (36.0-48.0); Hemoglobin 14.1 g/dL (12.0-16.0); Immature Granulocytes Abs Auto 0.03 10^3/uL (0.00-0.03); Immature Granulocytes Pct Auto 0.3 % (0.0-0.5); Lymphocytes Absolute Auto 3.5 10^3/uL (1.2-3.8); Mean Corpuscular HGB Conc 34.1 g/dL (29.9-35.2); Mean Corpuscular Hemoglobin 29.1 pg (26.7-34.0); Mean Corpuscular Volume 85.4 fL (81.0-99.0); Platelet Count 280 10^3/uL (150-450); Red Blood Count 4.85 10^6/uL (4.20-5.40); White Blood Count 9.5 10^3/uL (4.0-11.0)
[2024-10-29 13:30] LABS: Alanine Aminotransferase 27 U/L (14-59); Albumin Globulin Ratio 0.8; Albumin Level 3.2 g/dL (3.4-5.0); Alkaline Phosphatase 108 U/L (46-116); Amylase 52 U/L (25-115); Anion Gap 11.1; Aspartate Amino Transferase 14 U/L (15-37); Blood Urea Nitrogen 12.0 mg/dL (7.0-18.0); Calcium 9.4 mg/dL (8.5-10.1); Carbon Dioxide 27.7 mmol/L (21.0-32.0); Chloride 104 mmol/L (98-107); Estimated GFR (African America >60 (>=60 mL/min/1.73m^2); Estimated GFR (Non-African Ame >60 (>=60 mL/min/1.73m^2); Globulin 3.9 g/dL; Glucose 185 mg/dL (74-106); Lipase 42.0 U/L (16.0-77.0); Potassium 3.8 mmol/L (3.5-5.1); Sodium 139 mmol/L (136-145); Total Protein 7.1 g/dL (6.4-8.2)
== END 2024-10-29 12:38 | disposition home or self-care (01) ==
LOC: LAB 12:41
PROVIDERS: PCP Nurse Practitioner; Visit Provider Nurse Practitioner
DX: R10.84 Generalized abdominal pain (principal); E11.65 Type 2 diabetes mellitus with hyperglycemia; Z79.4 Long term (current) use of insulin; E24.9 Cushing's syndrome, unspecified
CPT/HCPCS: 36415; 80053; 80061; 82024; 82150; 82627; 83690; 85025; 85652; 86140; 87086

== ENCOUNTER 2024-10-29 12:43 | Outpatient (OUT) | payer MEDICARE, SELFPAY ==
--- OUTSIDE RECORDS SUMMARY | 2024-10-28 15:40 | XMS_ITS | Encounter Summary ---
Author Organization [facility] Address [address] [place] [address] Care Team Providers Care Case Management Manager Name Role Phone Sonya Mejia NP Unavailable [phone] Sonya Mejia NP Unavailable [phone] Abad Garcia MD Primary Care Provider [phone] Reason for Visit * Reason Comments Abdominal Pain Encounter Details Date Type Department Care Team (Late st Contact Info) Description 10/28/2024 3:40 PM EDT Office Visit [facility] [address] [place] [address] Sonya Mejia NP [address] [place] [address] Generalized abdominal pain (Primary Dx); Gastroesophageal reflux disease, unspecified whether esophagitis present; Environmental and seasonal allergies; 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, with long-term current use of insulin, macular edema presence unspecified, unspecified laterality, unspecified proliferative retinop* (C* (HCC); Morbid (severe) obesity due to excess calories ([facility]) Social History Tobacco Use Types Packs/Day Years Used Date Smoking Tobacco: Former Cigarettes 0.5 10 2012 Passive Smoke Exposure: Never Smokeless Tobacco: Never Alcohol Use Standard Drinks/Week Comments Yes 0 (1 standard drink = 0.6 oz pure alcohol) 1 beer per month. 1cup of coffee daily Humiliation, Afraid, Rape, and Kick questionnair e Answer Date Recorded Within the last year, have y ou been afraid of your partner or ex-partner? No 04/01/2023 Within the last year, have y ou been humiliated or emotionally abused in other ways by your partner or ex-partner? No Within the last year, have y ou been kicked, hit, slapped, or otherwise physically hurt by your partner or ex-partner? No 04/01/2023 Within the last year, have y ou been raped or forced to have any kind of sexual activity by your partner or ex-partner? No 04/01/2023 Social Connection and Isolation Panel [NHANES] A nswer Date Recorded In a typical week, how many times do you talk on the phone with family, friends, or neighbors? Never 04/01/2023 How often do you get together with friends or re latives? Never 04/01/2023 How often do you attend sikhism or temple serv ices? Never 04/01/2023 Do you belong to any clubs o r organizations such as sikhism groups, unions, fraternal or athletic groups, or school groups? No 04/01/2023 How often do you attend meet ings of the clubs or organizations you belong to? Never 04/01/2023 Are you , , di vorced, , never , or living with a partner? Never 04/01/2023 AUDIT-C Answer Date Recorded Q1: How often do you have a drink containing alc ohol? Monthly or less 04/01/2023 Q2: How many drinks containi ng alcohol do you have on a typical day when you are drinking? 1 or 2 04/01/2023 Q3: How often do you have si x or more drinks on one occasion? Never 04/01/2023 Overall Financial Resource Strain (CARDIA) Answe r Date Recorded How hard is it for you to pa y for the very basics like food, housing, medical care, and heating? Somewhat hard 06/07/2023 PHQ-2 Answer Date Recorded Patient Health Questionnaire-2 Score 0 06/07/2023 [facility] of Occupat ional Health - Occupational Stress Questionnaire Answer Date Recorded Do you feel stress - tense, restless, nervous, or anxious, or unable to sleep at night because your mind is troubled all the time - these days? To some extent 04/01/2023 Exercise Vital Sign Answer Date Recorde d On average, how many days pe r week do you engage in moderate to strenuous exercise (like a brisk walk)? 4 days 04/01/2023 On average, how many minutes do you engage in exercise at this level? 30 min 04/01/2023 Hunger Vital Sign Answer Date Recorded Within the past 12 months, y ou worried that your food would run out before you got the money to buy more. Never true 04/01/20 23 Within the past 12 months, t he food you bought just didn't last and you didn't have money to get more. Never true 04/01/2023 PRAPARE - Transportation Answer Date Re corded In the past 12 months, has l ack of transportation kept you from medical appointments or from getting medications? No 03/23 In the past 12 months, has l ack of transportation kept you from meetings, work, or from getting things needed for daily living? No 04/01/2023 Housing Stability Vital Sign Answer Raudel e Recorded In the last 12 months, was t here a time when you were not able to pay the mortgage or rent on time? No 04/01/2023 In the last 12 months, how many places have you lived? 1 04/01/2023 In the last 12 months, was t here a time when you did not have a steady place to sleep or slept in a halfway (including now)? No 04/01/2023 Comments Unknown Sex and Gender Information Value Date Recorded Sex Assigned at Not on file Legal Sex Female 9:31 PM EDT Gender Identity Not on file Sexual Orientation Not on file documented as of this encounter Last Filed Vital Signs Vital Sign Reading Time Taken Comments Blood Pressure 150/88 10/28/2024 3:55 PM EDT Pulse 91 10/28/2024 3:55 PM EDT Temperature 36.9 C (98.5 F) 10/28/2024 3:55 PM EDT Respiratory Rate 18 10/28/2024 3:55 PM EDT Oxygen Saturation 94% 10/28/2024 3:55 PM EDT Inhaled Oxygen Concentration - - Weight 115 kg (253 lb 6.4 oz) 10/28/2024 3:55 PM EDT Height - - Body Mass Index 40.9 05/01/2024 1:57 PM EST documented in this encounter Patient Instructions * Patient Instructions* Sonya Mejia NP - 10/28/2024 3:40 PM EDT Check xrays and labs documented in this encounter Progress Notes * Sonya Mejia NP - 10/28/2024 6:23 PM EDTAssociated Problem(s): Morbid (severe) obesity due to excess calories ([facility]) >>ASSESSMENT AND PLAN FOR CLASS 3 SEVERE OBESITY DUE TO EXCESS CALORIES WITHOUT SERIOUS COMORBIDITY WITH BODY MASS INDEX (BMI) OF 40.0 TO 44.9 IN ADULT ([facility]) WRITTEN ON 05/01/2024 6:57 AM BY SONYA MEJIA NP Discussed with patient their BMI (actual, verses recommended). We have also discussed lifestyle modifications: attempts to perform physical activity as chronic conditions allow, also to monitor dietary intake: increasing protein/fruits/veggies and lowering carb intake (unless contraindicated). Limit sodas, juices, and sugary drinks. Does take mounjaro for her diabetes * Sonya Mejia NP - 10/28/2024 6:23 PM EDTAssociated Problem(s): Type 2 diabetes mellitus, with long-term current use of insulin ([facility]) Sugars less than 150 Is taking meds as directed * Sonya Mejia NP - 10/28/2024 5:18 PM EDTAssociated Problem(s): Generalized abdominal pain DD: gastritis, diverticulitis, pancreatitis, gall bladder, Check labs, consider GBUS No acute sxs on PE * INA UNGER - 10/28/2024 3:40 PM EDT Abdominal pain started Sunday- pt has not had diarrhea, she had soft BM today. Pt has had nauseasince Sunday and had some vomiting on Sunday- Sunday. No other symptoms. Pain can at times be in the lower abdomin-similar to ovary pain or menstrual cramping. Gassy pain that moves in the upper quads. Pt has had upset stomach hardly ate for 3 days and laid. Very fatigue and weak. No back pain no headaches. Has been having hot flashes and flushed face. Pt has been taking pepto tabs and has helped. * Sonya Mejia NP - 10/28/2024 3:40 PM EDT Images from the original note were not included. Tasha Paul is a 49 y.o. female presents with chief complaint of Abdominal Pain HPI: Abdominal pain started Sunday- pt has not had diarrhea, she had soft BM today. Pt has had nauseasince Sunday and had some vomiting on Sunday- Sunday. No other symptoms. Pain can at times be in the lower abdomin-similar to ovary pain or menstrual cramping. Gassy pain that moves in the upper quads. Pt has had upset stomach hardly ate for 3 days and laid. Very fatigue and weak. No back pain no headaches. Has been having hot flashes and flushed face. Pt has been taking pepto tabs and has helped. Mother is with her for appt, states she has had episodes like this in the past Abdominal Pain This is a recurrent problem. The onset quality is gradual. The problem occurs intermittently. The problem has been waxing and waning. The pain is located in the generalized abdominal region. The painis moderate. The quality of the pain is aching. The abdominal pain does not radiate. Associated symptoms include nausea. Pertinent negatives include no arthralgias, constipation, diarrhea, dysuria, fever, frequency, headaches, myalgias or vomiting. Exacerbated by: eating. The pain is relieved by Nothing. She has tried proton pump inhibitors for the symptoms. The treatment provided moderate relief. SUBJECTIVE: MEDICATIONS: Current Outpatient Medications Medication Instructions amLODIPine (NORVASC) 10 mg, Daily ammonium lactate (Lac-Hydrin) 12 % lotion 1 application , Every 12 hours atorvastatin (LIPITOR) 80 mg, Oral, Every evening Fiasp 100 UNIT/ML solution inject as directed [...] (GLUCOPHAGE) 1,000 mg, Every 12 hours Mounjaro 12.5 MG/0.5ML solution auto-injector INJECT 12.5 MG UNDER THE SKIN ONE DAY A WEEK Multiple Vitamins-Minerals (ONE-A-DAY WOMENS PO) 1 tablet, [...] chest pain, palpitations and leg swelling. Gastrointestinal: Positive for abdominal pain and nausea. Negative for blood in stool, constipation, diarrhea and vomiting. Genitourinary: Negative for difficulty urinating, dysuria and frequency. Musculoskeletal: Negative for arthralgias, back pain, joint swelling and myalgias. Skin: Negative for rash and wound. Neurological: Negative for dizziness, tremors, seizures, syncope and headaches. Psychiatric/Behavioral: Negative for behavioral problems, self-injury and suicidal ideas. The patient is not nervous/anxious. Hematological: Does not bruise/bleed easily. Endocrine: Negative for polydipsia, polyphagia and polyuria. Allergic/Immunologic: Negative for environmental allergies and food allergies. 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 Total Hysterectomy Anxiety and depression 06/07/2023 Class 3 severe obesity due to excess calories without serious comorbidity with body mass index (BMI) of 40.0 to 44.9 in adult [place] 04/02/2023 Diverticulitis of intestine without perforation or abscess without bleeding, unspecified part of intestinal tract 06/07/2023 Fatty liver History of hysterectomy for cancer 04/30/2017 HLD (hyperlipidemia) 05/24/2023 Learning disabilities 06/07/2023 Narcotic abuse in remission ([facility]) 06/07/2023 Partial blindness 06/07/2023 Type 2 diabetes mellitus with diabetic retinopathy ([facility]) 06/07/2023 without macular edema, unspecified retinopathy severity Type 2 diabetes mellitus, with long-term current use of insulin ([facility]) 04/02/2023 Past Surgical History: Procedure Laterality [...] father, and mother. OBJECTIVE: Visit Vitals BP 150/88 (BP Location: Left arm, Patient Position: Sitting, BP Cuff Size: Large adult) Pulse 91 Temp 98.5 ??F (Temporal) Resp 18 Wt 253 lb 6.4 oz SpO2 94% BMI 40.90 kg/m?? Smoking Status Former BSA 2.31 m?? Physical Exam Vitals and nursing note reviewed. [...] Normal pulses. Heart sounds: Normal heart sounds. No murmur heard. Pulmonary: Effort: Pulmonary effort is normal. Breath sounds: Normal breath sounds. No wheezing. Abdominal: General: Bowel sounds are normal. There is no distension. Palpations: Abdomen is soft. There is no mass. Tenderness: There is no abdominal tenderness (generalized). There is left CVA tenderness (mild). There is no guarding or rebound. Musculoskeletal: General: Normal range of motion. Cervical [...] normal. Judgment: Judgment normal. ASSESSMENT AND PLAN: Follow up in about 4 weeks (around 11/25/2024) for Recheck. Problem List Items Addressed This Visit 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 disease) Relevant Medications omeprazole (PriLOSEC) [address] capsule Type 2 diabetes mellitus, with long-term current use of insulin ([facility]) Sugars less than 150 Is taking meds as directed Environmental and seasonal allergies Relevant Medications loratadine (Claritin) 10 MG tablet Morbid (severe) obesity due to excess calories ([facility]) >>ASSESSMENT AND PLAN FOR CLASS 3 SEVERE OBESITY DUE TO EXCESS CALORIES WITHOUT SERIOUS COMORBIDITY WITH BODY MASS INDEX (BMI) OF 40.0 TO 44.9 IN ADULT ([facility]) WRITTEN ON 05/01/2024 6:57 AM BY SONYA MEJIA NP Discussed with patient their BMI (actual, verses recommended). We have also discussed lifestyle modifications: attempts to perform physical activity as chronic conditions allow, also to monitor dietary intake: increasing protein/fruits/veggies and lowering carb intake (unless contraindicated). Limit sodas, juices, and sugary drinks. Does take mounjaro for her diabetes Generalized abdominal pain - Primary DD: gastritis, diverticulitis, pancreatitis, gall bladder, Check labs, consider GBUS No acute sxs on PE Relevant Orders CBC and differential Sedimentation rate, automated C-reactive protein Comprehensive metabolic panel Amylase Lipase Urinalysis with reflex microscopic (clean catch) Urine culture (clean catch) XR ABDOMEN 2 VIEW POCT Urinalysis dipstick (Completed) documented in this encounter Plan of Treatment Upcoming Encounters Date Type Department Care Team (Late st Contact Info) Description 11/25/2024 3:00 PM EDT Office Visit [facility] [address] [place] [address] Sonya Mejia NP [address] [place] [address] Scheduled Orders Name Type Priority Associated Diagnoses Orde r Schedule CBC and differential Lab Routine Generalized abdominal pain Expected: 10/28/2024 (Approximate), Expires: 10/28/2025 Sedimentation rate, automated Lab Routine Generalized abdominal pain Expected: 10/28/2024 (Approximate), Expires: 10/28/2025 C-reactive protein Lab Routine Generalized abdominal pain Expected: 10/28/2024 (Approximate), Expires: 10/28/2025 Comprehensive metabolic panel Lab Routine Generalized abdominal pain Expected: 10/28/2024 (Approximate), Expires: 10/28/2025 Amylase Lab Routine Generalized abdominal pain Expected: 10/28/2024 (Approximate), Expires: 10/28/2025 Lipase Lab Routine Generalized abdominal pain Expected: 10/28/2024 (Approximate), Expires: 10/28/2025 Urinalysis with reflex microscopic (clean catch) Lab Routine Generalized abdominal pain Expected: 10/28/2024 (Approximate), Expires: 10/28/2025 Urine culture (clean catch) Microbiology Routine Generalized abdominal pain Expected: 10/28/2024 (Approximate), Expires: 10/28/2025 XR ABDOMEN 2 VIEW Imaging Routine Generalized abdominal pain Expected: 10/28/2024, Expires: 10/28/2025 documented as of this encounter Procedures Procedure Name Priority Date/Time Associated Diagnosis Comments POCT URINALYSIS DIPSTICK Routine 10/28/2024 5:17 PM EDT Generalized abdominal pain documented in this encounter Results * (ABNORMAL) POCT Urinalysis dipstick (10/28/2024 5:17 PM EDT) Color, UA Yellow Clarity, UA Turbid Glucose, UA Negative Negative - 2000(110) ++++ mg/dL Bilirubin, UA Trace Negative - 4(70) +++ mg/dL Comment:small Ketones, UA Positive Negative - 160(16) ++++ mg/dL Comment:40 Spec Grav, UA 1.030 1 - 1.03 Blood, UA Positive Negative - 50 Jay Jay/mcL Comment:trace pH, UA 5.5 5 - 9 Protein, UA Trace Negative - 2000(20) ++++ mg/dL Comment:30 Urobilinogen, UA 0.2 0.2 - 12 mg/dL Leukocytes, UA Negative Negative - 500+++ Nadege/mcL Nitrite, UA Negative Negative - Positive Urine 10/28/2024 5:17 PM EDT Sonya Mejia NP POINT OF CARE TEST ENTER/EDIT O RDERABLES Final Result documented in this encounter Visit Diagnoses Diagnosis Generalized abdominal pain- Primary Abdominal pain, generalized Gastroesophageal reflux disease, unspecified whether esophagitis present Environmental and seasonal allergies 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, with long-term current use of insulin, macular edema presence unspecified, unspecified laterality, unspecified proliferative retinop* (C* (HCC) Morbid (severe) obesity due to excess calories ([facility]) documented in this encounter Additional Health Concerns Assessment Noted Time PHQ-9 Depression Total Score: 4 06/07/19 24 5:14 PM EST documented as of this encounter Care Teams Case Management Manager Relationship Specialty Start Date End Date Abad Garcia MD [address] [place] [address] PCP - General Family Medicine 02/21/24 Sonya Mejia NP [address] [place] [address] Referring Physician Nurse Practitioner 11/13/22 Sonya Mejia NP [address] [place] [address] Nurse Practitioner Family Medicine 06/07/23 documented as of this encounter
--- OUTSIDE RECORDS SUMMARY | 2024-10-29 12:48 | XMS_ITS | Encounter Summary ---
Author Organization [facility] Address [address] [place] [address] Care Team Providers Care Telephone Diaphragm Assembler Name Role Phone Sonya Mejia NP Unavailable [phone] Abad Garcia MD Primary Care Provider [phone] Sonya Mejia CREW MESS ATTENDANT Unavailable [phone] Unallocated, [facility] Provider Primary Care Provi tremayne Abad Garcia MD Primary Care Provider [phone] Encounter Details Date Type Department Care Team (Late st Contact Info) Description 08/06/2023 Orders Only [facility] [address] [place] [address] Sonya Mejia, CREW MESS ATTENDANT [address] [facility] [address] [place] [address] Social History Tobacco Use Types Packs/Day Years [...] Never 04/01/2023 How often do you attend latter-day or protestant serv ices? Never 04/01/2023 Do you belong to any clubs o r organizations such as latter-day groups, unions, fraternal or athletic groups, or [...] Recorded Patient Health Questionnaire-2 Score 0 06/07/2023 [facility] [place] of Occupat ional Health - Occupational Stress [...] place to sleep or slept in a snf (including now)? No 04/01/2023 Comments Unknown Sex and Gender Information Value Date Recorded Sex Assigned at Not on file Legal Sex Female 9:31 PM EDT Gender Identity Not on file Sexual Orientation Not on file documented as of this encounter Plan of Treatment Upcoming Encounters Date Type Department Care Team (Late st Contact Info) Description 11/25/2024 3:00 PM EDT Office Visit [facility] [address] [place] [address] Sonya Mejia NP [address] [place] [address] documented as of this encounter Procedures Procedure Name Priority Date/Time Associated Diagnosis Comments MM SCREENING MAMM WITH 3D LUIS ENRIQUE - US AND ADDITIONAL Routine 08/06/2023 3:00 PM EDT documented in this encounter Results * MM SCREENING MAMM WITH 3D LUIS ENRIQUE - US AND ADDITIONAL (08/06/2023 3:00 PM EDT) Anatomical Region Laterality Modality Radiographic Maureen ging us Sonya Mejia CREW MESS ATTENDANT IMG XR PROCEDURES Final Result documented in this encounter Visit Diagnoses Not on filedocumented in this encounter Additional Health Concerns Assessment Noted Time PHQ-9 Depression Total Score: 4 06/07/19 5:14 PM EST documented as of this encounter Care Teams Telephone Diaphragm Assembler Relationship Specialty Start Date End Date Abad Garcia MD [address] [place] [address] PCP - General Family Medicine 06/07/23 02/11/24 Unallocated, Noms Provider, [address] [place] [address] PCP - General Family Medicine 02/12/24 02/20/24 Abad Garcia MD [address] [place] [address] PCP - General Family Medicine 02/21/24 Sonya Mejia NP [address] [place] [address] Referring Physician Nurse Practitioner 11/13/22 Sonya Mejia NP [address] [place] [address] Nurse Practitioner Family Medicine 06/07/23 documented as of this encounter
--- OUTSIDE RECORDS SUMMARY | 2024-10-29 12:48 | XMS_ITS | Encounter Summary ---
Author Organization [facility] Address [address] [place] [address] Care Team Providers Care Assembler Handbags Name Role Phone Sonya Mejia WARP PREPARER Unavailable [phone] Abad Garcia MD Primary Care Provider [phone] Sonya Mejia WARP PREPARER Unavailable [phone] Unallocated, Noms Provider Primary Care Provi tremayne Abad Garcia MD Primary Care Provider [phone] Encounter Details Date Type Department Care Team (Late st Contact Info) Description 02/11/2024 Orders Only [facility] [address] [place] [address] Phu Muro MD [address] [place], [place] [id number] Social History Tobacco Use Types Packs/Day Years [...] Never 04/01/2023 How often do you attend congregation or restorationist serv ices? Never 04/01/2023 Do you belong to any clubs o r organizations such as congregation groups, unions, fraternal or athletic groups, or [...] Recorded Patient Health Questionnaire-2 Score 0 06/07/2023 [facility]ational Stress Questionnaire Answer [...] place to sleep or slept in a long term (including now)? No 04/01/2023 Comments Unknown Sex and Gender Information Value Date Recorded Sex Assigned at Not on file Legal Sex Female 9:31 PM EDT Gender Identity Not on file Sexual Orientation Not on file documented as of this encounter Plan of Treatment Upcoming Encounters Date Type Department Care Team (Late st Contact Info) Description 11/25/2024 3:00 PM EDT Office Visit [facility] [address] [place] [address] Sonya Mejia NP [address] [place] [address] documented as of this encounter Procedures Procedure Name Priority Date/Time Associated Diagnosis Comments SCANNED LABS Routine 02/11/2024 5:32 PM EDT XR CHEST 1 VIEW Routine 02/11/2024 4:26 PM EDT documented in this encounter Results * SCANNED LABS (02/11/2024 5:32 PM EDT) us Sonya Mejia WARP PREPARER LAB CHG PERFORMABLES Final Resu lt * XR chest 1 view (02/11/2024 4:26 PM EDT) Anatomical Region Laterality Modality Chest Radiographic Maureen ging us Phu Muro MD IMG XR PROCEDURES Final Resul t documented in this encounter Visit Diagnoses Not on filedocumented in this encounter Additional Health Concerns Assessment Noted Time PHQ-9 Depression Total Score: 4 06/07/19 24 5:14 PM EST documented as of this encounter Care Teams Assembler Handbags Relationship Specialty Start Date End Date Abad Garcia MD [address] [place] [address] PCP - General Family Medicine 06/07/23 02/11/24 Unallocated, Noms Provider, [address] [place] [address] PCP - General Family Medicine 02/12/24 02/20/24 Abad Garcia MD [address] [place] [address] PCP - General Family Medicine 02/21/24 Sonya Mejia NP [address] [place] [address] Referring Physician Nurse Practitioner 11/13/22 Sonya Mejia NP [address] [place] [address] Nurse Practitioner Family Medicine 06/07/23 documented as of this encounter
--- OUTSIDE RECORDS SUMMARY | 2024-10-29 12:48 | XMS_ITS | Encounter Summary ---
Author Organization [facility] Address [address] [place] [address] Care Team Providers Care Dental Coordinator Name Role Phone Sonya Mejia STATISTICS INTERN Unavailable [phone] Sonya Mejia STATISTICS INTERN Unavailable [phone] Unallocated, Noms Provider Primary Care Provi tremayne Abad Garcia MD Primary Care Provider [phone] Encounter Details Date Type Department Care Team (Late st Contact Info) Description 02/13/2024 Orders Only [facility] [address] [place] [address] Shaikh Giordano MD [address] [facility] [place] [address] Social History Tobacco Use Types [...] Never 04/01/2023 How often do you attend pentecostal or methodist serv ices? Never 04/01/2023 Do you belong to any clubs o r organizations such as pentecostal groups, unions, fraternal or athletic groups, or [...] Recorded Patient Health Questionnaire-2 Score 0 06/07/2023 [facility] [place] of Occupat ional Health - Occupational Stress [...] place to sleep or slept in a correction (including now)? No 04/01/2023 Comments Unknown Sex and Gender Information Value Date Recorded Sex Assigned at Not on file Legal Sex Female 9:31 PM EDT Gender Identity Not on file Sexual Orientation Not on file documented as of this encounter Plan of Treatment Upcoming Encounters Date Type Department Care Team (Late Contact Info) Description 11/25/2024 3:00 PM EDT Office Visit [facility] [address] [place] [address] Sonya Mejia NP [address] [place] [address] documented as of this encounter Procedures Procedure Name Priority Date/Time Associated Diagnosis Comments CT ABDOMEN & PELVIS W Routine 02/12/2024 9:12 AM EDT documented in this encounter Results * CT ABDOMEN & PELVIS W (02/12/2024 9:12 AM EDT) Anatomical Region Laterality Modality Radiographic Maureen ging us Shaikh Pasquale [place] IMG XR PROCEDURES Final Result documented in this encounter Visit Diagnoses Not on filedocumented in this encounter Additional Health Concerns Assessment Noted Time PHQ-9 Depression Total Score: 4 06/07/19 24 5:14 PM EST documented as of this encounter Care Teams Dental Coordinator Relationship Specialty Start Date End Date Unallocated, Noms Provider, [address] [place] [address] PCP - General Family Medicine 02/12/24 02/20/24 Abad Garcia MD [address] [place] [address] PCP - General Family Medicine 02/21/24 Sonya Mejia NP [address] [place] [address] Referring Physician Nurse Practitioner 11/13/22 Sonya Mejia NP [address] [place] [address] Nurse Practitioner Family Medicine 06/07/23 documented as of this encounter
--- OUTSIDE RECORDS SUMMARY | 2024-10-29 12:48 | XMS_ITS | Encounter Summary ---
Author Organization [facility] Address [address] [place] [address] Care Team Providers Care Night Clerk Auditor Name Role Phone Abad Garcia MD Primary Care Provider [phone] Sonya Mejia CASTING MACHINE CONTROL BOARD OPERATOR Unavailable [phone] Abad Garcia MD Primary Care Provider [phone] Sonya Mejia CASTING MACHINE CONTROL BOARD OPERATOR Unavailable [phone] Unallocated, Noms Provider Primary Care Provi tremayne Abad Garcia MD Primary Care Provider [phone] Encounter Details Date Type Department Care Team (Late st Contact Info) Description 02/08/2023 [facility] [address] [facility] [address] [place] [address] Martin Mendoza, DPJairo [address] [facility] [address] [place] [address] Social History Tobacco Use Types Packs/Day Years Used Date Smoking Tobacco: Never Passive Smoke Exposure: Never Alcohol Use Standard Drinks/Week Comments Never 0 (1 standard drink = 0.6 oz pur e alcohol) Comments Unknown Sex and Gender Information Value Date Recorded Sex Assigned at Not on file Legal Sex Female 9:31 PM EDT Gender Identity Not on file Sexual Orientation Not on file documented as of this encounter Plan of Treatment Upcoming Encounters Date Type Department Care Team (Late st Contact Info) Description 11/25/2024 3:00 PM EDT Office Visit [facility] [address] [place] [address] Sonya Mejia, ABBE [address] [place] [address] documented as of this encounter Visit Diagnoses Not on filedocumented in this encounter Care Teams Night Clerk Auditor Relationship Specialty Start Date End Date Abad Garcia MD PCP - General Family Medicine 11/13/22 06/06/23 Abad Garcia MD [address] [place] [address] PCP - General Family Medicine 06/07/23 02/11/24 Unallocated, Noms ProviderMD [address] [place] [address] PCP - General Family Medicine 02/12/24 02/20/24 Abad Garcia MD [address] [place] [address] PCP - General Family Medicine 02/21/24 Sonya Mejia NP [address] [place] [address] Referring Physician Nurse Practitioner 11/13/22 Sonya Mejia NP [address] [place] [address] Nurse Practitioner Family Medicine 06/07/23 documented as of this encounter
--- OUTSIDE RECORDS SUMMARY | 2024-10-29 12:48 | XMS_ITS | Encounter Summary ---
Author Organization [facility] Address [address] [place] [address] Care Team Providers Care Training And Development Manager Name Role Phone Sonya Mejia COLLEGE AND CAREER COUNSELOR Unavailable [phone] Sonya Mejia COLLEGE AND CAREER COUNSELOR Unavailable [phone] Abad Garcia MD Primary Care Provider [phone] Encounter Details Date Type Department Care Team (Late st Contact Info) Description 06/05/2024 Orders Only [facility] [address] [place] [address] Donell Reyes MD [address] [place] [address] Social History Tobacco Use Types Packs/Day Years [...] Never 04/01/2023 How often do you attend holiness or bahai serv ices? Never 04/01/2023 Do you belong to any clubs o r organizations such as holiness groups, unions, fraternal or athletic groups, or [...] Recorded Patient Health Questionnaire-2 Score 0 06/07/2023 [facility] Occupational Stress Questionnaire Answer Date [...] place to sleep or slept in a jail (including now)? No 04/01/2023 Comments Unknown Sex and Gender Information Value Date Recorded Sex Assigned at Not on file Legal Sex Female 9:31 PM EDT Gender Identity Not on file Sexual Orientation Not on file documented as of this encounter Plan of Treatment Upcoming Encounters Date Type Department Care Team (Late st Contact Info) Description 11/25/2024 3:00 PM EDT [facility] [address] [place] [address] Sonya Mejia NP [address] [place] [address] documented as of this encounter Procedures Procedure Name Priority Date/Time Associated Diagnosis Comments COLONOSCOPY DIAGNOSTIC Routine 06/05/2024 2:23 PM EST documented in this encounter Results * COLONOSCOPY DIAGNOSTIC (06/05/2024 2:23 PM EST) Anatomical Region Laterality Modality Radiographic Maureen ging Donell Reyes MD IMG XR PROCEDURES Final Result documented in this encounter Visit Diagnoses Not on filedocumented in this encounter Additional Health Concerns Assessment Noted Time PHQ-9 Depression Total Score: 4 06/07/19 5:14 PM EST documented as of this encounter Care Teams Training And Development Manager Relationship Specialty Start Date End Date Abad Garcia MD [address] [place] [address] PCP - General Family Medicine 02/21/24 Sonya Mejia NP [address] [place] [address] Referring Physician Nurse Practitioner 11/13/22 Sonya Mejia NP [address] [place] [address] Nurse Practitioner Family Medicine 06/07/23 documented as of this encounter
--- OUTSIDE RECORDS SUMMARY | 2024-10-29 12:48 | XMS_ITS | Encounter Summary ---
Author Organization [facility] Address [address] [place] [address] Care Team Providers Care Transit Specialist Name Role Phone Sonya Mejia NP Unavailable [phone] Abad Garcia MD Primary Care Provider [phone] Sonya Mejia NP Unavailable [phone] Unallocated, Noms Provider Primary Care Provi tremayne Abad Garcia MD Primary Care Provider [phone] Encounter Details Date Type Department Care Team (Late st Contact Info) Description 08/06/2023 Clinisync Result Encounter [facility] External Department Unsolicited Sonya Mejia NP [address] [place] [address] Social History Tobacco Use Types Packs/Day Years [...] Never 04/01/2023 How often do you attend muslim or shinto serv ices? Never 04/01/2023 Do you belong to any clubs o r organizations such as muslim groups, unions, fraternal or athletic groups, or [...] Recorded Patient Health Questionnaire-2 Score 0 06/07/2023 [facility] [place] of Occupat ional Health - Occupational Stress [...] Visit [facility] [address] [place] [address] Sonya Mejia NP [address] [place] [address] documented as of this encounter Procedures Procedure Name Priority Date/Time Associated Diagnosis Comments MM TOMOSYNTHESIS SCREENING BI 08/06/2023 2:25 PM EDT documented in this encounter Results * MM TOMOSYNTHESIS SCREENING BI (08/06/2023 2:25 PM EDT) Anatomical Region Laterality Modality Other 08/06/2023 2:25 PM EDT Narrative 08/06/2023 2:26 [place] [address] Mammography Report Signed Patient: HE REVELES MR#: [id number] : 1975 Acct:[id number] Age/Sex: 48 / F ADM Date: 08/06/23 Loc: MAMMO Attending Dr: Sonya Mejia NP Ordering Physician: Sonya Mejia NP Results: Date of Service: 08/06/23 Follow Up: Procedure(s): MM tomosynthesis screening BI Accession Number(s): [id number] cc: Sonya Mejia NP Patient Name: HE REVELES MR#: [id number] : 1975 Exam Date: 08/06/2023 Ordering Doctor: DENISE Mejia CNP RADIOLOGY REPORT PROCEDURE: MM TOMOSYNTHESIS SCREENING BI COMPARISON: MG MAMM SCREEN 3D CORNEL CAD, 08/04/2022. MG MAMM SCREEN CORNEL W CAD, 12/25/2017. INDICATIONS: Screening Calculator Name NCI Breast Cancer Risk Assessment Tool 5 Year Breast Cancer Risk 1.40% Lifetime Breast Cancer Risk 12.50% Personal Breast Cancer No Personal Ovarian Cancer No Treatments hysterectomy, cornel oopherectomy Family Cancers Mother with ovarian cancer at age 40; Aunt-maternal with ovarian cancer at age 35; Aunt-maternal with ovarian cancer at age 40. LOCATION: [facility] BREAST COMPOSITION: Scattered areas fibroglandular density. FINDINGS: DIAGNOSTIC CATEGORY 1--NEGATIVE. NO CHANGE FROM COMPARISON ASSESSMENT. RIGHT BREAST: No significant suspicious finding. LEFT BREAST: No significant suspicious finding. RECOMMENDATIONS: ROUTINE MAMMOGRAM AND CLINICAL EVALUATION IN 12 MONTHS. PLEASE NOTE: A NORMAL MAMMOGRAM DOES NOT EXCLUDE THE POSSIBILITY OF BREAST CANCER. A CLINICALLY SUSPICIOUS PALPABLE LUMP SHOULD BE BIOPSIED. Dictated by: Christopher Vega MD on 08/06/2023 at 14:24 Approved by: Christopher Vega MD on 08/06/2023 at 14:25 Dictated By: Christopher Vega M.D. Signed By: 08/06/23 1426 DD/ 1425 TD/TT: Advertising Columnist: Procedure Note Radiology, Radiologist, - 08/06/2023 [place] [address] Mammography Report Signed Patient: HE REVELES MMR#: [id number] : 1975Acct:[id number] Age/Sex: 48 / FADM Date: 08/06/23 Loc: MAMMO Attending Dr: Sonya Mejia BOILING OFF WINDER Ordering Physician: Sonya Mejia NPResults: Date of Service: 08/06/23Follow Up: Procedure(s): MM tomosynthesis screening BI Accession Number(s): [id number] cc: Sonya Mejia NP Patient Name: HE REVELES MR#: [id number] : 1975 Exam Date: 08/06/2023 Ordering Doctor: DENISE Mejia CNP RADIOLOGY REPORT PROCEDURE: MM TOMOSYNTHESIS SCREENING BI COMPARISON: MG MAMM SCREEN 3D CORNEL CAD, 08/04/2022. MG MAMM SCREEN BILW CAD, 12/25/2017. INDICATIONS: Screening Calculator Name NCI Breast Cancer Risk Assessment Tool 5 Year Breast Cancer Risk 1.40% Lifetime Breast Cancer Risk 12.50% Personal Breast Cancer No Personal Ovarian Cancer No Treatments hysterectomy, cornel oopherectomy Family Cancers Mother with ovarian cancer at age 40; Aunt-maternalwith ovarian cancer at age 35; Aunt-maternal with ovarian cancer at age 40. LOCATION: [facility] BREAST COMPOSITION: Scattered areas fibroglandular density. FINDINGS: DIAGNOSTIC CATEGORY 1--NEGATIVE. NO CHANGE FROM COMPARISON ASSESSMENT. RIGHT BREAST: No significant suspicious finding. LEFT BREAST: No significant suspicious finding. RECOMMENDATIONS: ROUTINE MAMMOGRAM AND CLINICAL EVALUATION IN 12 MONTHS. PLEASE NOTE: A NORMAL MAMMOGRAM DOES NOT EXCLUDE THE POSSIBILITY OFBREAST CANCER. A CLINICALLY SUSPICIOUS PALPABLE LUMP SHOULD BE BIOPSIED. Dictated by: Christopher Vega MD on 08/06/2023 at 14:24 Approved by: Christopher Vega MD on 08/06/2023 at 14:25 Dictated By: Christopher Vega M.D. Signed By:08/06/23 1426 DD/ 1425 TD/TT: Advertising Columnist: Sonya Mejia BOILING OFF WINDER [facility] Final Result documented in this encounter Visit Diagnoses Not on filedocumented in this encounter Additional Health Concerns Assessment Noted Time PHQ-9 Depression Total Score: 4 06/07/19 24 5:14 PM EST documented as of this encounter Care Teams Transit Specialist Relationship Specialty Start Date End Date Abad Garcia MD [address] [place] [address] PCP - General Family Medicine 06/07/23 02/11/24 Unallocated, Noms Provider, [address] [place] [address] PCP - General Family Medicine 02/12/24 02/20/24 Abad Garcia MD [address] [place] [address] PCP - General Family Medicine 02/21/24 Sonya Mejia NP [address] [place] [address] Referring Physician Nurse Practitioner 11/13/22 Sonya Mejia NP [address] [place] [address] Nurse Practitioner Family Medicine 06/07/23 documented as of this encounter
--- OUTSIDE RECORDS SUMMARY | 2024-10-29 12:49 | XMS_ITS | Patient Health Record ---
Author Organization [facility] Address [address] [place] [address] Support Name Relationship Address Phone CHIDI REVELES Emergency Contact [address] [place], [place] [phone] HE REVELES Guarantor Unknown [phone] Allergies Allergen (clinical drug ingredient) Drug/Non Drug Allergy documented on EMR Reaction Allergy Type Onset Date Status dulaglutide Trulicity vomiting Drug Allergy Activ e Reason For Referral No Information Medications Medication SIG (Take, Route, Frequency, Duration) Notes Start Date End Date Status Atorvastatin Calcium 40 MG TAKE 1 TABLET BY MOUTH ONCE DAILY; Duration: 90 days Active metFORMIN HCl 1000 MG 1 tablet with a me al Oral BID; Duration: 30 days Active Zofran ODT 4 mg 1 tablet on the tong ue allow to dissolve oral as needed; Duration: 5 days Active Sertraline HCl 25 MG 1 tablet Orally Onc e a day; Duration: 90 days Active Glucometer - Place 1 Drop of Bloo d Externally TID 07/16/2019 Active Loratadine 10 MG 1 tablet Orally Once a day OTC Active V-Go 40 - as directed W/ [facility] Active Omeprazole 40 MG TAKE 1 CAPSULE BY MOUTH DAILY Oral; Duration: 30 Active Lisinopril 40 MG 1 tablet Orally Once a day; Duration: 90 day(s) Active Social History Tobacco Use: Social History Observation Description Date Details (start date - stop date) Never Smoker NA - NA Tobacco Screen: Question Answer Notes Are you a: never smoker Sexual Hx: Question Answer Notes Had sex in the last 12 months (vaginal, oral, or anal)? No Have you ever had an STD? No LMP: 04/24/2017 Alcohol Screening: Question Answer Notes Did you have a drink containing alcohol in the p ast year? No Points 0 Interpretation Negative Problems Problem Type SNOMED Code ICD Code Onset Dates Problem Status W/U Status Risk Notes Problem Disorder due to type 2 diabetes mellitus (464049748) Type 2 diabetes mellitus with unspecified complications (E11.8) Active confirmed Problem Essential hypertension (56754580) Essential hypertension (I10) Active confirmed Problem Dyslipidemia (279580391) Dyslipidemia (E78.5) Active confirmed Problem Recurrent major depression in remission (05966667) Recurrent major depressive disorder, in partial remission (F33.41) Active confirmed Problem Recurrent major depression in full remission (44448610) Recurrent major depressive disorder, in full remission (F33.42) Active confirmed Plan Of Treatment No Information Insurance Providers Payer Name Payer Address Payer Phone Subscriber Number Group Number Insured Name Patient Relationship to Insured Coverage Start Date Coverage End Date MEDICARE CGS [address] [place] [address] [id number] ANUSHKAEMPERATRIZY Self - patient is the insured 1 MEDICAID [place] [address] [place] [address] [id number] ANUSHKAHE ADLER Self - patient is the insured 2 Medical (General) History Medical History History ICD Code Type 2 diabetes mellitus without complic ations E11.9 Essential (primary) hypertension I10 Depression F32.9 Surgical History Surgery Date(Month/Year) Total Hysterectomy 04/2017 Retina reattachment, left 09/2017 Retina reattachment, right 07/2016 Uterine exploratory surgery 2017 Hospitalization History Reason Date(Month/Year) DKA 10/2019 DKA 06/2019 Low K+ 02/2018 Low K+ 01/2018
--- OUTSIDE RECORDS SUMMARY | 2024-10-29 12:49 | XMS_ITS | Clinical Summary ---
Author Organization [facility] Address [address] [place] [address] Care Team Providers Care Byproducts Supervisor Name Role Phone Sonya Mejia KITCHEN CLERK Unavailable [phone] Sonya Mejia KITCHEN CLERK Unavailable [phone] Abad Garcia MD Primary Care Provider [phone] Allergies Active Allergy Reactions Criticality Noted Date Comments Dulaglutide 10/19/2021 Other Reaction(s): vomiting Medications metFORMIN (Glucophage) 1000 MG tablet Take 1,000 mg by mouth every 12 (twelve) hours. Active Insulin Disposable Pump (V-Go 40) 40 UNIT/24HR kit Inject 1 Pump as directed in the morning. 01/09/20 23 Active insulin syringe-needle U-100 (B-D INS SYR HALF-UNIT .3CC/31G) 31G X 5/16 0.3 mL misc Inject 1 each under the skin 4 (four) times a day as needed Use as instructed Active Lancets Micro Thin 33G misc 1 Lancet in the morning and 1 Lancet at noon and 1 Lancet in the evening and 1 Lancet before bedtime. Active Multiple Vitamins-Minerals (ONE-A-DAY WOMENS PO) Take 1 tablet by mouth in the morning. Active ammonium lactate (Lac-Hydrin) 12 % lotion 1 application every 12 (twelve) hours Active Fiasp 100 UNIT/ML solution inject as directed four times a day (EXPECT 100 UNITS PER DAY) 05/29/19 24 Active amLODIPine (Norvasc) 10 MG tablet Take 10 mg by mouth Daily 02/13/20 24 Active sertraline (Zoloft) 50 MG tabletIndications: Anxiety,Major depressive disorder with single episode, remission status unspecified Take 1 tablet (50 mg) by mouth in the morning. 90 tablet 1 08/05/19 25 025 Active lisinopril 40 MG tabletIndications: Primary hypertension Take 1 tablet (40 mg) by mouth Daily 90 tablet 1 08/05/19 25 025 Active atorvastatin (Lipitor) 80 MG tabletIndications: Mixed hyperlipidemia Take 1 tablet (80 mg) by mouth in the evening 90 tablet 1 08/05/19 25 025 Active Mounjaro 12.5 MG/0.5ML solution auto-injector INJECT 12.5 MG UNDER THE SKIN ONE DAY A WEEK 08/22/19 25 Active omeprazole (PriLOSEC) [address] capsuleIndications :Gastroesophageal reflux disease, unspecified whether esophagitis present Take 1 capsule (40 mg) by mouth in the morning. Take before meals. 90 capsule 1 10/29/19 25 025 Active loratadine (Claritin) 10 MG tabletIndications: Environmental and seasonal allergies Take 1 tablet (10 mg) by mouth Daily Take 10 mg by mouth 1 (one) time each day at the same time. 90 tablet 1 10/29/19 25 025 Active Basaglar KwikPen 100 UNIT/ML pen Inject 30 Units under the skin Daily as needed 01/11/20 025 Discontin ued(Thera py completed ) Mounjaro 10 MG/0.5ML solution auto-injector Inject 10 mg as directed every 7 (seven) days 01/23/20 025 Discontin ued(Thera py completed ) loratadine (Claritin) 10 MG tabletIndications: Environmental and seasonal allergies Take 1 tablet (10 mg) by mouth Daily Take 10 mg by mouth 1 (one) time each day at the same time. 90 tablet 1 05/01/19 25 025 Discontin ued(Reord er) omeprazole (PriLOSEC) [address] capsuleIndications :Gastroesophageal reflux disease, unspecified whether esophagitis present Take 1 capsule (40 mg) by mouth in the morning. Take before meals. 90 capsule 1 05/01/19 25 025 Discontin ued(Reord er) Active Problems Problem Noted Date Diagnosed Date Tubular adenoma of rectum 10/28/2024 Generalized abdominal pain 10/28/2024 Assessment & Plan (10/28/2024 6:22 PM EDT): DD: gastritis, diverticulitis, pancreatitis, gall bladder, Check labs, consider GBUS No acute sxs on PE Colon polyp 06/05/2024 Overview (06/05/2024): Scope 06/05/24: sessile polyp, Nill, 5 year fu, 2029 Type 2 diabetes mellitus with diabetic cataract 05/01/2024 Assessment & Plan (05/01/2024 6:58 AM EST): Continue with eye exams as scheduled Type 2 diabetes mellitus 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 edema, unspecified eye 05/01/2024 Assessment & Plan (05/01/2024 6:58 AM EST): Continue w eye doctor Body mass index (BMI) 40.0-44.9, adult intermediate (current) use of insulin 05/01/2024 Assessment & Plan (05/01/2024 7:04 AM EST): Continues with diabetic provider Opioid abuse, in remission 05/01/2024 Diabetic ketoacidosis withou t coma associated with type 2 diabetes mellitus 02/21/2024 Assessment & Plan (02/21/2024 11:36 AM EDT): Hospital FU Reviewed hospital notes, labs, etc Symptoms have resolved Vitamin deficiency, unspecified 01/16/2024 Autism spectrum disorder 10/15/2023 ADHD 10/15/2023 Environmental and seasonal allergies 10/15/2023 Assessment & Plan (10/15/2023 6:55 PM EDT): Cont loratadine Partial blindness 06/07/2023 Narcotic abuse in remission 06/07/2023 Learning disabilities 06/07/2023 Anxiety and depression 06/07/2023 Assessment & Plan (05/01/2024 7:01 AM EST): Continue current meds Assessment & Plan (01/30/2024 3:28 PM EDT): Continue current meds Assessment & Plan (10/15/2023 6:56 PM EDT): Feels her sertraline is doing well, no changes needed in dose Assessment & Plan (06/07/2023 5:54 PM EST): Stable on current meds Encounter for screening mamm ogram for malignant neoplasm of breast 06/07/20[address] subsequent [facility] [facility] wellness visit (AWV) in Medicare patient 06/07/2023 Assessment & Plan (06/07/2023 5:54 PM EST): Reviewed Ht/Wt/BMI Recommend eye exam yearly Recommend dental exams twice a year Balance work/leisure activities Exercises is recommended most days of the week (appropriate as chronic conditions allow) Follow up yearly and prn Colon cancer screening 06/07/2023 Assessment & Plan (05/01/2024 2:35 PM EST): Colon cancer screening options were discussed with patient, as well as why colon cancer screening is indicated. Options are Colonoscopy: direct visualization, every 10 years (unless indicated more frequently), risks and benefits were discussed Cologuard: every 3 years, risks and benefits were discussed , contraindications were discussed (family hx of colon cancer, colon polyps) Patient has elected to: we do colonscopy Assessment & Plan (02/21/2024 11:37 AM EDT): Colon cancer screening options were discussed with patient, as well as why colon cancer screening is indicated. Options are Colonoscopy: direct visualization, every 10 years (unless indicated more frequently), risks and benefits were discussed Cologuard: every 3 years, risks and benefits were discussed , contraindications were discussed (family hx of colon cancer, colon polyps) Patient has elected to: proceed with colonocopy Assessment & Plan (10/15/2023 6:56 PM EDT): Has not gotten done yet, we discussed how to do the test she is going to try to do this HLD (hyperlipidemia) 05/24/2023 Assessment & Plan (01/30/2024 3:28 PM EDT): Reviewed labs, trigs elevated likely secondary to her uncontrolled diabetes Abnormal urinalysis 04/02/2023 Major depressive disorder 04/02/2023 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 disease) Assessment & Plan (05/01/2024 6:56 AM EST): Recommendations: freq small meals, nothing to eat or drink at least 2 hours prior to bed, limit caffeine, alcohol, as well as spicy foods Meds to limit or avoid if possible: NSAIDS Elevate HOB if possible Recommend weight loss Med: omeprazole Assessment & Plan (01/30/2024 3:26 PM EDT): Cont PPI Recommend weight loss Assessment & Plan (10/15/2023 6:54 PM EDT): Cannot be without meds, symptoms are controlled with use of PPI Assessment & Plan (06/07/2023 5:53 PM EST): Stable with current meds Hypertension 04/02/2023 Assessment & Plan (05/01/2024 6:55 AM EST): Please check blood pressure daily and record DASH diet Limit caffeine Take medication as directed Contact office if chest pain, pressure, dizziness, shortness of breath, swelling legs Recommend slow position changes Current meds: amlodipine, yessy Assessment & Plan (01/30/2024 3:27 PM EDT): At goal no med dose change Reviewed labs Assessment & Plan (10/15/2023 6:54 PM EDT): Called pharmacy, she has not gotten script for lisinopril since February, I will order 20mg daily Fu in 3 months Assessment & Plan (06/07/2023 5:53 PM EST): At goal no changes in meds Fatty liver 04/02/2023 Diverticulosis 04/02/2023 Type 2 diabetes mellitus, wi th long-term current use of insulin 04/02/2023 Assessment & Plan (10/28/2024 6:23 PM EDT): Sugars less than 150 Is taking meds as directed Assessment & Plan (05/01/2024 7:01 AM EST): Check blood sugars daily, notify if <70 [...] statin Continues to follow with diabetic provider Assessment & Plan (02/21/2024 11:36 AM EDT): Check blood sugars daily, notify if <70 [...] and simple sugars. Continue with diabetic provider Assessment & Plan (01/30/2024 3:27 PM EDT): Check blood sugars daily, notify if <70 [...] sugars. Continue with diabetic provider Reviewed labs Assessment & Plan (06/07/2023 5:54 PM EST): Not at goal, A1c 10%, continue care with [place] [facility] media specialist Check blood sugars daily, notify if [...] diet low in carbohydrates, and simple sugars. Assessment & Plan (04/02/2023 12:30 PM EST): Is under care of specialist in [place] for her diabetes No acute complaints ; Freq foot checks and yearly eye exams Morbid (severe) obesity due to excess calories 1 06/03/2022 Assessment & Plan (10/28/2024 6:23 PM EDT): >>ASSESSMENT AND PLAN FOR CLASS 3 SEVERE OBESITY DUE TO EXCESS CALORIES WITHOUT SERIOUS COMORBIDITY WITH BODY MASS INDEX (BMI) OF 40.0 TO 44.9 IN ADULT ([facility]) WRITTEN ON 05/01/2024 6:57 AM BY SONYA MEJIA NP Discussed with patient their BMI (actual, verses recommended). We have also discussed lifestyle modifications: attempts to perform physical activity as chronic conditions allow, also to monitor dietary intake: increasing protein/fruits/veggies and lowering carb intake (unless contraindicated). Limit sodas, juices, and sugary drinks. Does take mounjaro for her diabetes Assessment & Plan (05/01/2024 6:57 AM EST): >>ASSESSMENT AND PLAN FOR CLASS 3 SEVERE OBESITY DUE TO EXCESS CALORIES WITHOUT SERIOUS COMORBIDITY WITH BODY MASS INDEX (BMI) OF 40.0 TO 44.9 IN ADULT ([facility]) WRITTEN ON 05/01/2024 6:57 AM BY SONYA AICHHOLZ, KITCHEN CLERK Discussed with patient their BMI (actual, verses recommended). We have also discussed lifestyle modifications: attempts to perform physical activity as chronic conditions allow, also to monitor dietary intake: increasing protein/fruits/veggies and lowering carb intake (unless contraindicated). Limit sodas, juices, and sugary drinks. Does take mounjaro for her diabetes 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 , bilateral 05/10/2021 Proliferative diabetic retin opathy of both eyes associated with type 2 diabetes mellitus 05/10/2021 Nuclear sclerotic cataract, bilateral 03/19/2018 Adenocarcinoma of endometrium, stage 1 8 Overview (05/01/2024): Total Hysterectomy 04/2017 Assessment & Plan (05/01/2024 2:25 PM EST): Had total hysterectomy 04/2017 Follow with [facility]: no, have been released with no follow up from [facility] No vag bleeding, no pelvic pain Resolved Problems Problem Noted Date Diagnosed Date Resolved Date BMI 40.0-44.9, adult 10/15/2023 024 director long term care current use of insulin 10/15/2023 05/01/2024 Retinopathy of both eyes 10/15/202312/2024 Type 2 diabetes mellitus with hyperglycemia 10/15/2023 10/15/2023 Type 2 diabetes mellitus wit h diabetic retinopathy 06/07/2023 05/01/2024 Overview (06/07/2023): without macular edema, unspecified retinopathy severity Diverticulitis of intestine without perforation or abscess without bleeding, unspecified part of intestinal tract 06/07/2023 History of hysterectomy for cancer 04/30/2017 10/15/2023 Encounters Date Type Department Care Team Description 10/28/2024 3:40 PM EDT Office Visit [facility] [address] [place] [address] Sonya Mejia NP Generalized abdominal pain (Primary Dx); Gastroesophageal reflux disease, unspecified whether esophagitis present; Environmental and seasonal allergies; 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, with long-term current use of insulin, macular edema presence unspecified, unspecified laterality, unspecified proliferative retinop* (C* (HCC); Morbid (severe) obesity due to excess calories ([facility]) 10/28/[address] [facility] [address] [place] [address] Sonya Mejia NP 08/06/2024 Clinisync Result Encounter [facility] External Department Unsolicited Sonya Mejia NP 08/04/2024 Refill [facility] [address] [place] [address] Sonya Mejia NP Anxiety; Major depressive disorder with single episode, remission status unspecified ; Primary hypertension ; Mixed hyperlipidemia from Last 3 Months Immunizations Immunization Administration Dates Next Due Influenza, injectable, quadr ivalent, preservative free 02/08/2023,01/11/2022,01/15/2021,12/25,01/08/2019,12/31/2017,12/19/2016 Influenza, seasonal, injecta ble, preservative free 01/30/2024,12/11/2015,11/26/2014 01/29/2025 [place] SARS-CoV-2 07/02/2020 SARS-CoV-2, Unspecified 10/17/2021 Tdap 08/06/2023 Family History Medical History Relation Name Comments Diabetes Brother Hypertension Brother Diabetes Father Hypertension Father Alcohol abuse Mother Cancer Mother Ovarian Diabetes Mother Hypertension Mother Diabetes Paternal Grandmother Relation Name Status Comments Brother Father Alive Mother Alive Paternal Grandmother Social History Tobacco Use Types Packs/Day Years Used Date Smoking Tobacco: Former Cigarettes 0.5 2012 Passive Smoke Exposure: Never Smokeless Tobacco: Never Tobacco Cessation:Counseling Given: Not Answered Alcohol Use Standard Drinks/Week Comments Yes 0 [...] Never 04/01/2023 How often do you attend hinduism or cheondoism serv ices? Never 04/01/2023 Do you belong to any clubs o r organizations such as hinduism groups, unions, fraternal or athletic groups, or [...] Recorded Patient Health Questionnaire-2 Score 0 06/07/2023 [facility] [place] of Occupat ional Health - Occupational Stress [...] place to sleep or slept in a fpc (including now)? No 04/01/2023 Comments Unknown Sex and Gender Information Value Date Recorded Sex Assigned at Not on file Legal Sex Female 9:31 PM EDT Gender Identity Not on file Sexual Orientation Not on file Last Filed Vital Signs Vital Sign Reading Time Taken Comments Blood Pressure 150/88 10/28/2024 3:55 PM EDT Pulse 91 10/28/2024 3:55 PM EDT Temperature 36.9 C (98.5 F) 10/28/2024 3:55 PM EDT Respiratory Rate 18 10/28/2024 3:55 PM EDT Oxygen Saturation 94% 10/28/2024 3:55 PM EDT Inhaled Oxygen Concentration - - Weight 115 kg (253 lb 6.4 oz) 10/28/2024 3:55 PM EDT Height 167.6 cm (5' 6 ) 05/01/2024 1:57 PM EST Body Mass Index 40.9 05/01/2024 1:57 PM EST Plan of Treatment Upcoming Encounters Date Type Department Care Team (Late st Contact Info) Description 11/25/2024 3:00 PM EDT Office Visit [facility] [address] [place] [phone] Sonya Mejia, ABBE [address] [place] [address] Health Maintenance Due Date Last Done Comments CT Colonography 1977 FIT-DNA 1977 FIT 1977 FOBT 1975 Sigmoidoscopy 1977 HPV/Cotest 2007 Pap Smear 12/11/2022 12/12/2019, 12/11/2016 Medicare Annual Wellness (AWV) 06/07/2024 06/07/2023 , 06/07/2023 Diabetes: Retinopathy Screening 08/06/2024 , 11/30/2022 Diabetes: Hemoglobin A1C 09/16/2024 025, 03/03/2024, 11/26/2023, Additional history exists Influenza Vaccine (#1) 2024 4, 02/08/2023, 01/11/2022, Additional history exists Diabetes: Urine Protein Screening 01/21/2025 024, 02/27/2023 Mammogram 08/06/2025 08/06/2024, 0408/2023, 08/06/2023, Additional history exists Colonoscopy 06/05/2029 06/05/2024, 06/04/2024 Colorectal Cancer Screening 06/05/2029 Cervical Cancer Screening Discontinued Procedures Procedure Name Priority Date/Time Associated Diagnosis Comments POCT URINALYSIS DIPSTICK Routine 10/28/2024 5:17 PM EDT Generalized abdominal pain MM TOMOSYNTHESIS SCREENING BI 08/06/2024 2:49 PM EDT COLONOSCOPY DIAGNOSTIC Routine 2:23 PM EST from Last 3 Months or Most Recently Relevant to Health Maintenance Results * (ABNORMAL) POCT Urinalysis dipstick (10/28/2024 [...] CARE TEST ENTER/EDIT O RDERABLES Final Result * MM TOMOSYNTHESIS SCREENING BI (08/06/2024 2:49 PM EDT) Anatomical Region Laterality Modality Other 08/06/2024 2:49 PM EDT Narrative 08/06/2024 2:50 [place] [address] Mammography Report Signed Patient: TASHA REVELES MR#: [id number] : 1975 Acct:[id number] Age/Sex: 49 / F ADM Date: 08/06/24 Loc: MAMMO Attending Dr: Sonya Mejia NP Ordering Physician: Sonya Mejia NP Results: Date of Service: 08/06/24 Follow Up: Procedure(s): MM tomosynthesis screening BI Accession Number(s): [id number] cc: Sonya Mejia NP Patient Name: TASHA REVELES MR#: [id number] : 1975 Exam Date: 08/06/2024 Ordering Doctor: DENISE Mejia CNP RADIOLOGY REPORT PROCEDURE: MM TOMOSYNTHESIS SCREENING BI COMPARISON: MM TOMOSYNTHESIS SCREENING BI, 08/06/2023. MG MAMM SCREEN 3D CORNEL CAD, 08/04/2022. MG MAMM SCREEN CORNEL W CAD, 12/25/2017. INDICATIONS: Screening for malignant neoplasm Calculator Name NCI Breast Cancer Risk Assessment Tool 5 Year Breast Cancer Risk 1.40% Lifetime Breast Cancer Risk 12.30% Personal Breast Cancer No Personal Ovarian Cancer No Treatments hysterectomy, cornel oopherectomy Family Cancers Mother with ovarian cancer at age 40; Aunt-maternal with ovarian cancer at age 35; Aunt-maternal with ovarian cancer at age 40. LOCATION: [facility] BREAST COMPOSITION: The breasts are almost entirely fatty. FINDINGS: DIAGNOSTIC CATEGORY 1--NEGATIVE. LEFT BREAST: No significant suspicious finding. RIGHT BREAST: No significant suspicious finding. RECOMMENDATIONS: ROUTINE MAMMOGRAM AND CLINICAL EVALUATION IN 12 MONTHS. PLEASE NOTE: A NORMAL MAMMOGRAM DOES NOT EXCLUDE THE POSSIBILITY OF BREAST CANCER. A CLINICALLY SUSPICIOUS PALPABLE LUMP SHOULD BE BIOPSIED. Dictated by: Cipriano Truong DO on 08/06/2024 at 14:32 Approved by: Cipriano Truong DO on 08/06/2024 at 14:49 Dictated By: Cipriano Truong M.D. Signed By: 08/06/24 1450 DD/ 1449 TD/TT: Electrician Manager: Procedure Note Radiology, Radiologist, - 08/06/2024 [place] [address] Mammography Report Signed Patient: TASHA REVELES MMR#: [id number] : 1975Acct:[id number] Age/Sex: 49 / FADM Date: 08/06/24 Loc: MAMMO Attending Dr: Sonya Mejai NP Ordering Physician: Sonya Mejia NPResults: Date of Service: 08/06/24Follow Up: Procedure(s): MM tomosynthesis screening BI Accession Number(s): [id number] cc: Sonya Mejia NP Patient Name: TASHA REVELES MR#: [id number] : 1975 Exam Date: 08/06/2024 Ordering Doctor: DENISE Mejia CNP RADIOLOGY REPORT PROCEDURE: MM TOMOSYNTHESIS SCREENING BI COMPARISON: MM TOMOSYNTHESIS SCREENING BI, 08/06/2023. MG MAMM [id number] CORNEL CAD, 08/04/2022. MG MAMM SCREEN CORNEL W CAD, 12/25/2017. INDICATIONS: Screening for malignant neoplasm Calculator Name NCI Breast Cancer Risk Assessment Tool 5 Year Breast Cancer Risk 1.40% Lifetime Breast Cancer Risk 12.30% Personal Breast Cancer No Personal Ovarian Cancer No Treatments hysterectomy, cornel oopherectomy Family Cancers Mother with ovarian cancer at age 40; Aunt-maternalwith ovarian cancer at age 35; Aunt-maternal with ovarian cancer at age 40. LOCATION: [facility] BREAST COMPOSITION: The breasts are almost entirely fatty. FINDINGS: DIAGNOSTIC CATEGORY 1--NEGATIVE. LEFT BREAST: No significant suspicious finding. RIGHT BREAST: No significant suspicious finding. RECOMMENDATIONS: ROUTINE MAMMOGRAM AND CLINICAL EVALUATION IN 12 MONTHS. PLEASE NOTE: A NORMAL MAMMOGRAM DOES NOT EXCLUDE THE POSSIBILITY OFBREAST CANCER. A CLINICALLY SUSPICIOUS PALPABLE LUMP SHOULD BE BIOPSIED. Dictated by: Cipriano Truong DO on 08/06/2024 at 14:32 Approved by: Cipriano Truong DO on 08/06/2024 at 14:49 Dictated By: Cipriano Truong M.D. Signed By:08/06/24 1450 DD/ 1449 TD/TT: Electrician Manager: Sonya Mejia NP [facility] Final Result * COLONOSCOPY DIAGNOSTIC (06/05/2024 2:23 PM EST) Anatomical Region Laterality Modality Radiographic Maureen ging us Donell Reyes MD IMG XR PROCEDURES Final Result from Last 3 Months or Most Recently Relevant to Health Maintenance Insurance MEDICARE Care Teams Byproducts Supervisor Relationship Specialty Start Date End Date Abad Garcia MD [address] [place] [address] PCP - General Family Medicine 02/21/24 Sonya Mejia NP [address] [place] [address] Referring Physician Nurse Practitioner 11/13/22 Sonya Mejia NP [address] [place] [address] Nurse Practitioner Family Medicine 06/07/23
--- OUTSIDE RECORDS SUMMARY | 2024-10-29 12:49 | XMS_ITS | Encounter Summary ---
Author Organization [facility] Address [address] [place] [address] Care Team Providers Care Ginner Helper Name Role Phone Sonya Mejia MECHANICAL SERVICE TECHNICIAN Unavailable [phone] Sonya Mejia NP Unavailable [phone] Abad Garcia MD Primary Care Provider [phone] Encounter Details Date Type Department Care Team (Late st Contact Info) Description 10/28/2024 Bamboo flowsheet [facility] [address] [place] [phone] Sonya Mejia NP [address] [place] [phone] Social History Tobacco Use Types Packs/Day Years [...] Never 04/01/2023 How often do you attend cheondoism or latter day serv ices? Never 04/01/2023 Do you belong to any clubs o r organizations such as cheondoism groups, unions, fraternal or athletic groups, or [...] Recorded Patient Health Questionnaire-2 Score 0 06/07/2023 [facility] of Occupat ional Health - Occupational Stress [...] place to sleep or slept in a residential (including now)? No 04/01/2023 Comments Unknown Sex [...] Office Visit [facility] [address] [place] [address] Sonya Mejia NP [address] [place] [address] documented as of this encounter Visit Diagnoses Not on filedocumented in this encounter Additional Health Concerns Assessment Noted Time PHQ-9 Depression Total Score: 4 06/07/19 24 5:14 PM EST documented as of this encounter Care Teams Ginner Helper Relationship Specialty Start Date End Date Abad Garcia MD [address] [place] [phone] PCP - General Family Medicine 02/21/24 Sonya Mejia NP [address] [place] [phone] Referring Physician Nurse Practitioner 11/13/22 Sonya Mejia NP [address] [place] [phone] Nurse Practitioner Family Medicine 06/07/23 documented as of this encounter
--- OUTSIDE RECORDS SUMMARY | 2024-10-29 12:49 | XMS_ITS | Clinical Summary ---
Author Organization [facility] Address [address] [place] [id number] Care Team Providers Care Stabber Name Role Phone Kim Rojas MD Primary Care Provider [phone] Allergies Active Allergy Reactions Criticality Noted Date Comments Seasonal Allergies Other: See Comments 05/10/19 22 Worse in the fall Medications cephALEXin (KEFLEX) 500 mg capsule 03/18/20 18 Active atorvastatin (LIPITOR) 10 mg tablet Take 10 mg by mouth once daily. 6 02/19/20 18 Active dicyclomine (BENTYL) 20 mg tablet TAKE ONE 1 TABLET BY MOUTH EVERY 8 HOURS NEEDED FOR PAIN 6 02/19/20 18 Active Omeprazole 40 mg capsule Take 40 mg by mouth once daily. 6 02/19/20 18 Active metFORMIN (GLUCOPHAGE) 1,000 mg tablet TAKE ONE 1 TABLET BY MOUTH TWICE DAILY 6 02/19/20 18 Active NOVOLOG FLEXPEN U-100 INSULIN 100 unit/mL inpn INJECT 10 UNITS SUBCUTANEOUSLY THREE TIMES A DAY 4 03/06/20 18 Active potassium chloride (K-TAB) 10 mEq tablet Take 10 mEq by mouth three times daily. 0 03/08/20 18 Active lisinopril-hydroc hlorothiazide (PRINZIDE,ZESTORE TIC) 20-12.5 mg per tablet Take 1 tablet by mouth twice daily. 0 05/27/19 19 Active sertraline (ZOLOFT) 25 mg tablet Take 50 mg by mouth once daily. 0 05/27/19 19 Active VIVITROL 380 mg injection 05/21/19 19 Active STEGLATRO 15 mg tab 0 02/28/20 19 Active BASAGLAR KWIKPEN U-100 INSULIN 100 unit/mL (3 mL) inpn INJECT 40 UNITS SUBCUTANEOUSLY EVERY BEDTIME 0 01/07/20 19 Active JARDIANCE 25 mg tablet Take 25 mg by mouth once daily. 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 01/25/20 21 Active V-GO 40 deviIndications:T ype 2 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, unspecified whether terminal superintendent insulin use (HCC),Nuclear sclerotic cataract, bilateral,Posteri or subcapsular polar age-related cataract, bilateral once daily. USE DIRECTED. 04/25/19 22 Active ammonium lactate (LAC-HYDRIN) 12 % lotion Apply to affected area. 05/22/19 25 Active loratadine (CLARITIN) 10 mg tablet Take 10 mg by mouth. 05/01/19 25 Active multivitamin-ferr ous fumarate-folic acid (CENTRUM COMPLETE) Take by mouth every 24 hours. Active MOUNJARO 10 mg/0.5 mL pen injector Inject 10 mg subcutaneously. 01/23/20 24 Active VITAMIN B COMPLEX ORAL Take by mouth every 24 hours. 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, with long-term current use of insulin 08/02/2016 Hypertension 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 disease) Resolved Problems Problem Noted Date Diagnosed Date Resolved Date Diabetes 08/02/2016 Immunizations Immunization Administration Dates Next Due influenza (IIV3) vaccine, ag e 6 mo - 64 yr, trivalent (AFLURIA, FLULAVAL, FLUVIRIN, FLUZONE) 12/19/2016 influenza (IIV4) vaccine, ag e 6 mo - 64 yr, quadrivalent, PF (AFLURIA, FLUARIX, FLULAVAL, FLUZONE) 01/08/2019,12/31/2017 Family History Medical History Relation Comments Hypertension Brother Diabetes Father Hypertension Father Cancer Mother ovarian cancer Diabetes Mother Hypertension Mother No Ocular Disease No Family History nothing know n of Relation Status Comments Brother Father Mother Social History Tobacco Use Types Packs/Day Years Used Date Smoking Tobacco: Former Cigarettes Q uit: 2013 Smokeless Tobacco: Never Alcohol Use Standard Drinks/Week Comments No 0 (1 standard drink = 0.6 oz pur e alcohol) Area Deprivation Index Answer Date Ollie rded National Score (1-100), lower number is lower ri sk 63 08/07/2023 State Score (1-10), lower number is lower risk 4 08/07/2023 Data from: https://www.neighborhoodatlas.medicine.[facility].edu/. Last address used for calculation [address] 08/07/2023 Comments No Sex and Gender Information Value Date Recorded Sex Assigned at Not on file Legal Sex Female 11:09 AM EDT Gender Identity Not on file Sexual Orientation Not on file Last Filed Vital Signs Vital Sign Reading Time Taken Comments Blood Pressure 138/79 12/12/2019 10:30 AM EDT Pulse 115 12/12/2019 10:30 AM EDT Temperature 36.5 C (97.7 F) 12/12/2019 10:30 AM EDT Respiratory Rate 20 12/12/2019 10:3 0 AM EDT Oxygen Saturation 98% 12/12/2019 10: 30 AM EDT Inhaled Oxygen Concentration - - Weight 102.7 kg (226 lb 6.4 oz) 020 10:30 AM EDT Height 168 cm (5' 6.14 ) 12/12/2019 10: 30 AM EDT Body Mass Index 36.39 12/12/2019 10:30 AM EDT Plan of Treatment Upcoming Encounters Date Type Department Care Team (Latest Contact Info) Description 12/01/2024 12:45 PM EDT Office Visit [facility] Ophthalmology [address] [address] Richelle Monreal PA-C [address] [place] [address] JANELLE Travis in 6 months Health Maintenance Due Date Last Done Comments Anxiety Screening 1995 Depression Screening 1995 HIV Screening 1995 Hepatitis C Screening 1995 Hepatitis B Vaccine (1 of 3 - 19+ 3-dose series) [address] Colonography 2022 Cologuard (FIT-DNA) 2022 Colonoscopy 2022 Colorectal Cancer Screening 2022 Diabetes Screening 2022 Fecal Occult Blood 2022 Lipid Screening 2022 Sigmoidoscopy 2022 Cervical Cancer Screening 12/11/20222019, 06/13/2019, 12/06/2018, Additional history exists Covid-19 Vaccine (2023-2 5 season) 2023 08/06/2023, 02/25/2022, 10/17/2021, Additional history exists Influenza Vaccine (#1) 2024 , 02/08/2023, 01/11/2022, Additional history exists DTaP,Tdap,Td Vaccine (2 - Td or Tdap) 08/05/2033 08/06/2023 Medical Devices Implanted Type Area Dumper Mold Cleaner Device Identifier Shelf Expiration Date Model / Serial / Lot Gas Ispan Constellation Intraocular Vision System [id number] 125gm - [id number] Implanted:Qty: 1 on 08/09/2016 at [facility] Implant Right: Eye [facility] 12/21/2016 [id number] / / [id number] Gas Ispan Constellation Intraocular Vision System [id number] 125gm - [id number] Implanted:Qty: 1 on 10/10/2017 at [facility] Implant Left: Eye [employer] [facility] 10/20/2018 [id number] / / [id number] Procedures Procedure Name Priority Date/Time Associated Diagnosis Comments PAP FLUID VAGINAL VAULT SCREENING Routine 12/12/2019 10:36 AM EDT Endometrial cancer (HCC) Encounter for screening for malignant neoplasm of cervix from Last 3 Months or Most Recently Relevant to Health Maintenance Results * PAP FLUID VAGINAL VAULT SCREENING (12/12/2019 10:36 AM EDT) Death Clearance Coordinator Specimen originated from [facility] Specimen #: [id number] Submitting Physician: MEG KEBEDE PA-C SPECIMEN SUBMITTED A: VAGINAL VAULT,SCREENING, FLUID FINAL DIAGNOSIS A. VAGINAL VAULT,SCREENING, FLUID Satisfactory for interpretation. Negative for intraepithelial lesion or malignancy. Fungal organisms morphologically consistent with Amanda species. This specimen has been analyzed by the ThinPrep Imaging System, an automated imaging and review system, which assists the laboratory in evaluating cells on ThinPrep Pap tests. Following automated imaging, selected rene from every slide are reviewed by a rim technician. CHANEL Fajardo(ASCP) (Electronic Signature) CLINICAL DATA HYSTERECTOMY TOTAL, HPV Testing: No HPV test Date of Last Menstrual Period: Hysterectomy STAINS A: VAGINAL VAULT,SCREENING, FLUID THIN PREP CHAGO Rivers M.D., Robotic Machine Operator Date of Report: 12/17/2019 Date of Procedure: 12/12/2019 Date of Receipt: 12/15/2019 Submitted by: MEG KEBEDE PA-C Additional Physician(s): FANTA ALCAZAR MD Location: [facility] Diagnostic interpretation performed at [facility], [address] [facility] [address]. [place] Number: [id number] The Pap Smear is a screening test for cervical cancer. False negative results occur with all screening tests, emphasizing the need for rescreening at recommended intervals, and clinical correlation. [facility] Vaginal swab (specimen) VAGINAL SWAB / Unknown 12/12/2019 10:36 AM EDT 12/15/2019 3:04 PM EDT Meg Kebede PA-C CYTOLOGY Final Result [facility] [id number] [place] [address] from Last 3 Months or Most Recently Relevant to Health Maintenance Insurance MEDICARE Care Teams Stabber Relationship Specialty Start Date End Date Kim Rojas MD [address] [facility] [place] [address] PCP - General Family Medicine 06/07/18
--- OUTSIDE RECORDS SUMMARY | 2024-10-29 12:49 | XMS_ITS | Clinical Summary ---
Author Organization [facility] Address [id number] [address] [place] [address] Care Team Providers Care Social Sciences Department Chair Name Role Phone Unavailable Primary Care Provider Unavailabl e Immunizations Immunization Administration Dates Next Due Influenza, Unspecified 12/19/2016 Social History Tobacco Use Types Packs/Day Years Used Date Smoking Tobacco: Never Assessed Childcare Answer Date Recorded Childcare Unknown 10/02/2018 Employment Answer Date Recorded Employment Unknown 10/02/2018 Comments Unknown Sex and Gender Information Value Date Recorded Sex Assigned at Not on file Legal Sex Female 11:30 AM EDT Gender Identity Not on file Sexual Orientation Not on file Plan of Treatment Health Maintenance Due Date Last Done Comments Depression Screening 1989 Tobacco Screening 1989 Adult BMI Screening 1995 DTaP,Tdap and Td Vaccines (1 - Tdap) 1996 Pap Smear 1998 Influenza Vaccine 12/22/2024 12/19/2016 Medical Devices Not on file
[2024-10-29 13:32] LABS: Triglycerides 122 mg/dL (<=150); VLDL CHOLESTEROL 24.4 mg/dL
[2024-10-29 13:33] LABS: Cholesterol 156 mg/dL (<=200); HDL Cholesterol 47 mg/dL (40-60)
== END 2024-10-29 12:44 | disposition home or self-care (01) ==
LOC: LAB 12:47
PROVIDERS: PCP Nurse Practitioner; Visit Provider Nurse Practitioner Family
DX: K76.0 Fatty (change of) liver, not elsewhere classified (principal); E11.65 Type 2 diabetes mellitus with hyperglycemia; E24.9 Cushing's syndrome, unspecified; Z79.4 Long term (current) use of insulin
CPT/HCPCS: 36415; 80061; 82024; 82627

== ENCOUNTER 2024-10-30 13:30 | Outpatient (REF) | payer MEDICARE, SELFPAY ==
--- OUTSIDE RECORDS SUMMARY | 2024-10-28 15:40 | XMS_ITS | Encounter Summary ---
Author Organization [facility] Address [address] [place] [address] Care Team Providers Care Rate Reviewer Name Role Phone Sonya Mejia NP Unavailable [phone] Sonya Mejia NP Unavailable [phone] Abad Garcia MD Primary Care Provider [phone] Reason for Visit * Reason Comments Abdominal Pain Encounter Details Date Type Department Care Team (Late st Contact Info) Description 10/28/2024 3:40 PM EDT Office Visit [facility] [address] [place] [address] Sonya Mejia NP [address] [place] [address] Generalized abdominal pain (Primary Dx); Gastroesophageal reflux disease, unspecified whether esophagitis present; Environmental and seasonal allergies; 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, with long-term current use of insulin, macular edema presence unspecified, unspecified laterality, unspecified proliferative retinop* (C* (HCC); Morbid (severe) obesity due to excess calories ([facility]) Social History Tobacco Use Types Packs/Day Years Used Date Smoking Tobacco: Former Cigarettes 0.5 2012 Passive Smoke Exposure: Never Smokeless Tobacco: [...] Never 04/01/2023 How often do you attend sabianist or gnosticism serv ices? Never 04/01/2023 Do you belong to any clubs o r organizations such as sabianist groups, unions, fraternal or athletic groups, or [...] Recorded Patient Health Questionnaire-2 Score 0 06/07/2023 [facility] [place] of Occupat ional Health - Occupational Stress [...] place to sleep or slept in a prison (including now)? No 04/01/2023 Comments Unknown Sex [...] (severe) obesity due to excess calories ([facility]) >>ASSESSMENT AND PLAN FOR CLASS 3 SEVERE OBESITY DUE TO EXCESS CALORIES WITHOUT SERIOUS COMORBIDITY WITH BODY MASS INDEX (BMI) OF 40.0 TO 44.9 IN ADULT ([facility]) WRITTEN ON 05/01/2024 6:57 AM [...] mellitus, with long-term current use of insulin ([facility]) Sugars less than 150 Is taking [...] Diagnosis Date Adenocarcinoma of endometrium, stage 1 ([facility]) 04/30/2017 Total Hysterectomy Anxiety and depression 06/07/2023 Class 3 severe obesity due to excess calories without serious comorbidity with body mass index (BMI) of 40.0 to 44.9 in adult ([facility]) 04/02/2023 Diverticulitis of intestine without perforation or abscess without bleeding, unspecified part of intestinal tract 06/07/2023 Fatty liver History of hysterectomy for cancer 04/30/2017 HLD (hyperlipidemia) 05/24/2023 Learning disabilities 06/07/2023 Narcotic abuse in remission ([facility]) 06/07/2023 Partial blindness 06/07/2023 Type 2 diabetes mellitus with diabetic retinopathy ([facility]) 06/07/2023 without macular edema, unspecified retinopathy severity Type 2 diabetes mellitus, with long-term current use of insulin ([facility]) 04/02/2023 Past Surgical History: Procedure Laterality [...] mellitus, with long-term current use of insulin ([facility]) Sugars less than 150 Is taking meds as directed Environmental and seasonal allergies Relevant Medications loratadine (Claritin) 10 MG tablet Morbid (severe) obesity due to excess calories ([facility]) >>ASSESSMENT AND PLAN FOR CLASS 3 SEVERE OBESITY DUE TO EXCESS CALORIES WITHOUT SERIOUS COMORBIDITY WITH BODY MASS INDEX (BMI) OF 40.0 TO 44.9 IN ADULT ([facility]) WRITTEN ON 05/01/2024 6:57 AM BY [...] Visit [facility] [address] [place] [address] Sonya Mejia NP [address] [place] [address] Scheduled Orders Name Type Priority Associated Diagnoses [...] (severe) obesity due to excess calories ([facility]) documented in this encounter Additional Health Concerns Assessment Noted Time PHQ-9 Depression Total Score: 4 06/07/19 24 5:14 PM EST documented as of this encounter Care Teams Rate Reviewer Relationship Specialty Start Date End Date Abad Garcia MD [address] [place] [address] PCP - General Family Medicine 02/21/24 Sonya Mejia NP [address] [place] [address] Referring Physician Nurse Practitioner 11/13/22 Sonya Mejia NP [address] [place] [address] Nurse Practitioner Family Medicine 06/07/23 documented as of this encounter
--- OUTSIDE RECORDS SUMMARY | 2024-10-30 13:35 | XMS_ITS | Encounter Summary ---
Author Organization [facility] Address [address] [place] [address] Care Team Providers Care Systems Development Consultant Name Role Phone Sonya Mejia PAPER CARRIER Unavailable [phone] Sonya Mejia PAPER CARRIER Unavailable [phone] Abad Garcia MD Primary Care Provider [phone] Encounter Details Date Type Department Care Team (Late st Contact Info) Description 06/05/2024 Orders Only [facility] [address] [place] [address] Donell Reyes MD [address] [place] [address] Social History Tobacco Use Types Packs/Day [...] How often do you attend pentecostal or moravian serv ices? Never 04/01/2023 Do you belong [...] Recorded Patient Health Questionnaire-2 Score 0 06/07/2023 [facility]ational Stress Questionnaire Answer Date [...] place to sleep or slept in a assisted (including now)? No 04/01/2023 Comments Unknown Sex and Gender Information Value Date Recorded Sex Assigned at Not on file Legal Sex Female 9:31 PM EDT Gender Identity Not on file Sexual Orientation Not on file documented as of this encounter Plan of Treatment Upcoming Encounters Date Type Department Care Team (Late st Contact Info) Description 11/25/2024 3:00 PM EDT [facility] [address] [place] [address] Sonya Mejia NP [address] [place] [address] documented as of this encounter Procedures Procedure [...] documented as of this encounter Care Teams Systems Development Consultant Relationship Specialty Start Date End Date Abad Garcia MD [address] [place] [address] PCP - General Family Medicine 02/21/24 Sonya Mejia NP [address] [place] [address] Referring Physician Nurse Practitioner 11/13/22 Sonya Mejia NP [address] [place] [address] Nurse Practitioner Family Medicine 06/07/23 documented as of this encounter
--- OUTSIDE RECORDS SUMMARY | 2024-10-30 13:35 | XMS_ITS | Encounter Summary ---
Author Organization [facility] Address [address] [place] [address] Care Team Providers Care Wedding Coordinator Name Role Phone Sonya Mejia TAX ACCOUNTING MANAGER Unavailable [phone] Sonya Mejia TAX ACCOUNTING MANAGER Unavailable [phone] Unallocated, Noms Provider Primary Care Provi tremayne Abad Garcia MD Primary Care Provider [phone] Encounter Details Date Type Department Care Team (Late st Contact Info) Description 02/13/2024 Orders Only [facility] [address] [place] [address] Shaikh Giordano MD [address] [facility] [place] [address] Social History Tobacco Use Types [...] Never 04/01/2023 How often do you attend jehovah's witness or voodoo serv ices? Never 04/01/2023 Do you belong to any clubs o r organizations such as jehovah's witness groups, unions, fraternal or athletic groups, or [...] Recorded Patient Health Questionnaire-2 Score 0 06/07/2023 [facility] [place] of Occupat ional Health - Occupational Stress [...] Office Visit [facility] [address] [place] [address] Sonya Mejia NP [address] [place] [address] documented as of this encounter Procedures Procedure [...] documented as of this encounter Care Teams Wedding Coordinator Relationship Specialty Start Date End Date Unallocated, Noms Provider, [address] [place] [address] PCP - General Family Medicine 02/12/24 02/20/24 Abad Garcia MD [address] [place] [address] PCP - General Family Medicine 02/21/24 Sonya Mejia NP [address] [place] [address] Referring Physician Nurse Practitioner 11/13/22 Sonya Mejia NP [address] [place] [address] Nurse Practitioner Family Medicine 06/07/23 documented as of this encounter
--- OUTSIDE RECORDS SUMMARY | 2024-10-30 13:35 | XMS_ITS | Encounter Summary ---
Author Organization [facility] Address [address] [place] [address] Care Team Providers Care Transformation Architect Name Role Phone Sonya Mejia NP Unavailable [phone] Sonya Mejia NP Unavailable [phone] Abad Garcia MD Primary Care Provider [phone] Encounter Details Date Type Department Care Team (Late st Contact Info) Description 10/29/2024 Clinisync Result Encounter [facility] External Department Unsolicited Sonya Mejia NP [address] [facility] [place] [address] Social History Tobacco Use Types Packs/Day Years [...] How often do you attend pentecostal or mormonism serv ices? Never 04/01/2023 Do you belong [...] Recorded Patient Health Questionnaire-2 Score 0 06/07/2023 [facility] Occupat ional [facility] - Occupational Stress Questionnaire Answer Date Recorded [...] Office Visit [facility] [address] [place] [address] Sonya Mejia NP [address] [place] [address] documented as of this encounter Procedures Procedure Name Priority Date/Time Associated Diagnosis Comments [facility] LIPASE Routine 10/29/2024 1:04 PM EDT [facility] CMP (CMP) (FOR REMOTE [facility] USE) Routine 10/29/2024 1:04 PM EDT ALL SED RATE Routine 10/29/2024 1:04 PM EDT ALL LIPID PROFILE (FASTING) Routine 10/29/2024 1:04 PM EDT ALL DHEA SULFATE Routine 10/29/2024 1:04 PM EDT ALL CBC WITH AUTO DIFF Routine 10/29/2024 1:04 PM EDT ALL C REACTIVE PROTEIN Routine 10/29/2024 1:04 PM EDT ALL AMYLASE Routine 10/29/2024 1:04 PM EDT documented in this encounter Results * ALL DHEA SULFATE (10/29/2024 1:04 PM EDT) DHEA-SULFATE 67.7 41.2 - 243.7 ug/dL [facility]H Comment: Performed at: - [address] [id number] Bitumen Plant Operator: Iftikhar Romero PhD, Phone: [phone] 10/29/2024 1:04 PM EDT 10/29/2024 1:07 PM EDT Narrative RICKINC - 10/30/2024 8:09 AM EDT Generic External Data Provider CLINJYOTSNANC F inaemily Result [facility] * ALL LIPID PROFILE (FASTING) (10/29/2024 1:04 PM EDT) TRIGLYCERIDES 122 <=150 mg/dL TBH CHOLESTEROL 156 <=200 mg/dL TB HDL CHOLESTEROL 47 40 - 60 mg/dL TB Comment: > or =60 mg/dl - LOW CARDIOVASCULAR RISK <40 mg/dl - HIGH CARDIOVASCULAR RISK LDL CHOLESTEROL CALCULATED 85.0 mg/dL TB Comment: <100 mg/dl OPTIMAL 100-129 mg/dl NEAR OR ABOVE OPTIMAL 130-159 mg/dl BORDERLINE HIGH 160-189 mg/dl HIGH >190 mg/dl VERY HIGH VLDL CHOLESTEROL 24.4 mg/dL TB CHOL HDL RATIO 3.3 TB Comment: 3.3 - 4.4 LOW RISK 4.4 - 7.1 AVERAGE RISK 7.1 - 11.0 MODERATE RISK >11.0 HIGH RISK 10/29/2024 1:04 PM EDT 10/29/2024 1:07 PM EDT Narrative CLINISYNC - 10/29/2024 1:33 PM EDT us Generic External Data Provider CLINISYNC F inal Result [facility] * CCF LIPASE (10/29/2024 1:04 PM EDT) LIPASE 42.0 16.0 - 77.0 U/L [facility] 10/29/2024 1:04 PM EDT 10/29/2024 1:07 PM EDT Narrative CLINISYNC - 10/29/2024 1:32 PM EDT us Sonyaluiz Mejia OCEAN LIFEGUARD SPECIALIST CLINISYNC Final Result Performing Organization Address [facility] Co de Phone Number [facility] * ALL AMYLASE (10/29/2024 1:04 PM EDT) AMYLASE 52 25 - 115 U/L [facility] 10/29/2024 1:04 PM EDT 10/29/2024 1:07 PM EDT Narrative CLINISYNC - 10/29/2024 1:32 PM EDT us Sonya Jackie OCEAN LIFEGUARD SPECIALIST CLINISYNC Final Result Performing Organization Address [facility] Co de Phone Number CLINISYNC [facility] * (ABNORMAL) ALL C REACTIVE PROTEIN (10/29/2024 1:04 PM EDT) C REACTIVE PROTEIN 0.58(H) <=0.50 mg/dL TBH 10/29/2024 1:04 PM EDT 10/29/2024 1:07 PM EDT Narrative CLINISYNC - 10/29/2024 1:32 PM EDT us Sonya Jackie OCEAN LIFEGUARD SPECIALIST CLINISYNC Final Result [facility] TB * (ABNORMAL) [facility] CMP (CMP) (FOR REMOTE [facility] USE) (10/29/2024 1:04 PM EDT) SODIUM 139 136 - 145 mmol/L TBH POTASSIUM 3.8 3.5 - 5.1 mmol/L TBH CHLORIDE 104 98 - 107 mmol/L TBH CARBON DIOXIDE 27.7 21.0 - 32.0 mmol/L TBH ANION GAP 11.1 TBH GLUCOSE 185(H) 74 - 106 mg/dL TBH BLOOD UREA NITROGEN 12.0 7.0 - 18.0 mg/dL TBH CREATININE 0.59 0.55 - 1.02 mg/dL TBH TBH EGFR-AF [place]IZ[place] >60 >=60 mL/min/1. 73m 2 TBH TBH EGFR-NON AF [place]IZ[place] >60 >=60 mL/min/1. 73m 2 TBH BUN CREATININE RATIO 20.3 TBH CALCIUM 9.4 8.5 - 10.1 mg/dL TBH BILIRUBIN TOTAL 0.4 0.2 - 1.0 mg/dL TBH ASPARTATE AMINO TRANSFERASE 14(L) 15 - 37 U/L TBH ALANINE AMINOTRANSFERASE 27 14 - 59 U/L TBH ALKALINE PHOSPHATASE 108 46 - 116 U/L TBH TOTAL PROTEIN 7.1 6.4 - 8.2 g/dL TBH ALBUMIN LEVEL 3.2(L) 3.4 - 5.0 g/dL TBH GLOBULIN 3.9 g/dL TBH ALBUMIN GLOBULIN RATIO 0.8 TBH 10/29/2024 1:04 PM EDT 10/29/2024 1:07 PM EDT Narrative CLINISYNC - 10/29/2024 1:32 PM EDT us Sonya Mejia NP CLINISYNC Final Result STACY TB * (ABNORMAL) ALL SED RATE (10/29/2024 1:04 PM EDT) TB SED RATE 32(H) <=20 mm/hr TBH 10/29/2024 1:04 PM EDT 10/29/2024 1:07 PM EDT Narrative CLINISYNC - 10/29/2024 1:18 PM EDT us Sonya Jackie MCADAMS CLINISYNC Final Result CLINISYNC TB * (ABNORMAL) ALL CBC WITH AUTO DIFF (10/29/2024 1:04 PM EDT) TB WBC 9.5 4.0 - 11.0 10 3/uL TBH TBH RBC 4.85 4.20 - 5.40 10 6/uL TBH TBH HGB 14.1 12.0 - 16.0 g/dL TBH TBH HCT 41.4 36.0 - 48.0 % TBH TBH MCV 85.4 81.0 - 99.0 fL TBH TBH MCH 29.1 26.7 - 34.0 pg TBH TBH MCHC 34.1 29.9 - 35.2 g/dL TBH TBH RDW 13.3 11.0 - 15.0 % TBH TBH PLT 280 150 - 450 10 3/uL TBH TBH MPV 9.8 9.5 - 13.5 fL TBH NEUTROPHILS PERCENT AUTO 54.8 43.0 - 75.0 % TBH LYMPHOCYTES PERCENT AUTO 36.6 20.5 - 60.0 % TBH MONOCYTES PERCENT AUTO 6.9 1.7 - 12.0 % TBH TBH EO % 0.7(L) 0.9 - 7.0 % TBH BASOPHILS PERCENT AUTO 0.7 0.2 - 2.0 % TBH IMMATURE GRANULOCYTES PCT AUTO 0.3 0.0 - 0.5 % TBH NEUTROPHILS ABSOLUTE AUTO 5.2 1.4 - 6.5 10 3/uL TBH LYMPHOCYTES ABSOLUTE AUTO 3.5 1.2 - 3.8 10 3/uL TBH MONOCYTES ABSOLUTE AUTO 0.7 0.3 - 0.8 10 3/uL TBH TBH EO # 0.1 0.0 - 0.7 10 3/uL TBH BASOPHILS ABSOLUTE AUTO 0.1 0.0 - 0.1 10 3/uL TBH IMMATURE GRANULOCYTES ABS AUTO 0.03 0.00 - 0.03 10 3/uL TBH 10/29/2024 1:04 PM EDT 10/29/2024 1:07 PM EDT Narrative CLINISYNC - 10/29/2024 1:16 PM EDT us Sonya Mejia NP CLINLAURYN Final Result CLINISYNC TB documented in this encounter Visit Diagnoses Not on filedocumented in this encounter Additional Health Concerns Assessment Noted Time PHQ-9 Depression Total Score: 4 06/07/19 5:14 PM EST documented as of this encounter Care Teams Transformation Architect Relationship Specialty Start Date End Date Abad Garcia MD [address] [place] [address] PCP - General Family Medicine 02/21/24 Sonya Mejia NP [address] [place] [address] Referring Physician Nurse Practitioner 11/13/22 Sonya Mejia NP [address] [place] [address] Nurse Practitioner Family Medicine 06/07/23 documented as of this encounter
--- OUTSIDE RECORDS SUMMARY | 2024-10-30 13:35 | XMS_ITS | Encounter Summary ---
Author Organization [facility] Address [address] [place] [address] Care Team Providers Care Technical Maintenance Technician Name Role Phone Abad Garcia MD Primary Care Provider [phone] Sonya Mejia LAYOUT WORKER Unavailable [phone] Abad Garcia MD Primary Care Provider [phone] Sonya Mejia LAYOUT WORKER Unavailable [phone] Unallocated, [facility] Provider Primary Care Provi tremayne Abad Garcia MD Primary Care Provider [phone] Encounter Details Date Type Department Care Team (Late st Contact Info) Description 04/01/2023 Abstract [facility] [address] [place] [address] Sonya Mejia, LAYOUT WORKER [address] [place] [address] Social History Tobacco Use Types Packs/Day Years Used Date Smoking Tobacco: Never Passive Smoke Exposure: Never Alcohol Use Standard Drinks/Week Comments Never 0 (1 standard drink = 0.6 oz pur e alcohol) Humiliation, Afraid, Rape, and Kick questionnair e [...] Never 04/01/2023 How often do you attend samaritan or roman catholic serv ices? Never 04/01/2023 Do you belong to any clubs o r organizations such as samaritan groups, unions, fraternal or athletic groups, or [...] more drinks on one occasion? Never 04/01/2023 [facility] - Occupational Stress Questionnaire Answer Date [...] place to sleep or slept in a fdc (including now)? No 04/01/2023 Comments Unknown Sex and Gender Information Value Date Recorded Sex Assigned at Not on file Legal Sex Female 9:31 PM EDT Gender Identity Not on file Sexual Orientation Not on file documented as of this encounter Functional Status * Audit-C Score Answer Date of Assessment Author 1 04/01/2023 3:47 PM EST Mychart, Generic * Q1: How often do you have a drink containing alcohol? Answer Date of Assessment Author Monthly or less 04/01/2023 3:47 PM EST Mychart, Generic * Q2: How many drinks containing alcohol do you have on a typical day when you are drinking? Answer Date of Assessment Author 1 or 2 04/01/2023 3:47 PM EST Mychart, Generic * Q3: How often do you have six or more drinks on one occasion? Answer Date of Assessment Author Never 04/01/2023 3:47 PM EST Mychart, Generic documented as of this encounter Plan of Treatment Upcoming Encounters Date Type Department Care Team (Late st Contact Info) Description 11/25/2024 3:00 PM EDT Office Visit [facility] [address] [place] [address] Sonya Mejia NP [address] [place] [address] documented as of this encounter Visit Diagnoses Not on filedocumented in this encounter Care Teams Technical Maintenance Technician Relationship Specialty Start Date End Date Abad Garcia MD PCP - General Family Medicine 11/13/22 06/06/23 Abad Garcia MD [address] [place] [address] PCP - General Family Medicine 06/07/23 02/11/24 Unallocated, Noms Provider, [place] [address] PCP - General Family Medicine 02/12/24 02/20/24 Abad Garcia MD [address] [place] [address] PCP - General Family Medicine 02/21/24 Sonya Mejia NP [address] [place] [address] Referring Physician Nurse Practitioner 11/13/22 Sonya Mejia NP [address] [place] [address] Nurse Practitioner Family Medicine 06/07/23 documented as of this encounter
--- OUTSIDE RECORDS SUMMARY | 2024-10-30 13:35 | XMS_ITS | Clinical Summary ---
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 05/01/2024 Assessment & [...] of breast 06/07/2023 Encounter for subsequent [facility] wellness visit (AWV) in Medicare patient 06/07/2023 [...] at goal, A1c 10%, continue care with [place] email campaign specialist Check blood sugars daily, notify if [...] EST): Is under care of specialist in [place] for her diabetes No acute complaints ; Freq foot checks and yearly eye exams Morbid (severe) obesity due to excess calories 1 06/03/2022 Assessment & Plan (10/28/2024 6:23 PM EDT): >>ASSESSMENT AND PLAN FOR CLASS 3 SEVERE OBESITY DUE TO EXCESS CALORIES WITHOUT SERIOUS COMORBIDITY WITH BODY MASS INDEX (BMI) OF 40.0 TO 44.9 IN ADULT ([facility]) WRITTEN ON 05/01/2024 6:57 AM BY SONYA [...] (BMI) OF 40.0 TO 44.9 IN ADULT ([facility]) WRITTEN ON 05/01/2024 6:57 AM BY SONYA [...] EST): Had total hysterectomy 04/2017 Follow with DIRECTORY COMPILER: no, have been released with no follow up from DIRECTORY COMPILER No vag bleeding, no pelvic pain Resolved Problems Problem Noted Date Diagnosed Date Resolved Date BMI 40.0-44.9, adult 10/15/2023 024 [facility] current use of insulin 10/15/2023 05/01/2024 Retinopathy [...] Encounters Date Type Department Care Team Description 10/29/2024 Clinisync Result Encounter [facility] External Department Unsolicited Sonya Mejia NP 10/28/2024 3:40 PM EDT Office Visit [facility] [address] [place] [address] Sonya Mejia NP Generalized abdominal pain (Primary Dx); Gastroesophageal reflux disease, unspecified whether esophagitis present; Environmental and seasonal allergies; 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.] Date Smoking Tobacco: Former Cigarettes 0.5 10 2 003 - 2012 Passive Smoke Exposure: Never Smokeless Tobacco: [...] Never 04/01/2023 How often do you attend roman catholic or bahai serv ices? Never 04/01/2023 Do you belong to any clubs o r organizations such as roman catholic groups, unions, fraternal or athletic groups, or [...] Recorded Patient Health Questionnaire-2 Score 0 06/07/2023 [facility] - Occupational Stress [...] 11/25/2024 3:00 PM EDT Office Visit [facility] [address] [place] [address] Sonya Mejia, SUPERVISOR PHOTOENGRAVING [address] [place] [address] Health Maintenance Due Date Last Done Comments CT Colonography 1977 FIT-DNA 1977 FIT 1977 FOBT 1977 Sigmoidoscopy 1977 HPV/Cotest 2007 Pap Smear 12/11/2022 12/12/2019, 12/11/2016 Medicare Annual Wellness (AWV) 06/07/2024 06/07/2023 , 06/07/2023 Diabetes: Retinopathy Screening 08/06/2024 4, 11/30/2022 Diabetes: Hemoglobin A1C 09/16/2024 025, 03/03/2024, 11/26/2023, Additional history exists Influenza Vaccine (#1) 2024 4, 02/08/2023, 01/11/2022, Additional history exists Diabetes: Urine Protein Screening 01/21/2025 024, 02/27/2023 Mammogram 08/06/2025 08/06/2024, 04/08/2023, 08/06/2023, Additional history exists Colonoscopy 06/05/2029 06/05/2024, 06/04/2024 Colorectal Cancer Screening 06/05/2029 Cervical Cancer Screening Discontinued Procedures Procedure Name Priority Date/Time Associated Diagnosis Comments ALL DHEA SULFATE Routine 10/29/2024 1:04 PM EDT ALL LIPID PROFILE (FASTING) Routine 10/29/2024 1:04 PM EDT [facility] LIPASE Routine 10/29/2024 1:04 PM EDT ALL AMYLASE Routine 10/29/2024 1:04 PM EDT ALL C REACTIVE PROTEIN Routine 1:04 PM EDT [facility] CMP (CMP) (FOR REMOTE [facility] USE) Routine 10/29/2024 1:04 PM EDT ALL SED RATE Routine 10/29/2024 1:04 PM EDT ALL CBC WITH AUTO DIFF Routine 1:04 PM EDT POCT URINALYSIS DIPSTICK Routine 10/28/2024 5:17 PM EDT Generalized abdominal pain MM TOMOSYNTHESIS SCREENING BI 08/06/2024 2:49 PM EDT COLONOSCOPY DIAGNOSTIC Routine 2:23 PM EST from Last 3 Months or Most Recently Relevant to Health Maintenance Results * [facility] LIPASE (10/29/2024 1:04 PM EDT) LIPASE 42.0 16.0 - 77.0 U/L TBH 10/29/2024 1:04 PM EDT 10/29/2024 1:07 PM EDT Narrative CLINISYNC - 10/29/2024 1:32 PM EDT us Sonya Mejia NP CLINISYNC Final Result [facility] TB * (ABNORMAL) [facility] CMP (CMP) (FOR REMOTE [facility] USE) (10/29/2024 1:04 PM EDT) SODIUM 139 136 - 145 mmol/L TBH POTASSIUM 3.8 3.5 - 5.1 mmol/L TBH CHLORIDE 104 98 - 107 mmol/L TBH CARBON DIOXIDE 27.7 21.0 - 32.0 mmol/L TBH ANION GAP 11.1 TBH GLUCOSE 185(H) 74 - 106 mg/dL TBH BLOOD UREA NITROGEN 12.0 7.0 - 18.0 mg/dL TBH CREATININE 0.59 0.55 - 1.02 mg/dL TBH TBH EGFR-AF SPANISH >60 >=60 mL/min/1. 73m 2 TBH TBH EGFR-NON AF SPANISH >60 >=60 mL/min/1. 73m 2 TBH BUN [...] us Sonya Mejia NP CLINISYNC Final Result Performing Organization Address [facility] de Phone Number [facility] * (ABNORMAL) ALL SED RATE (10/29/2024 1:04 PM EDT) [facility] SED RATE 32(H) <=20 mm/hr TB 10/29/2024 1:04 PM EDT 10/29/2024 1:07 PM EDT Narrative CLINISYNC - 10/29/2024 1:18 PM EDT Sonya Mejia NP CLINISYNC Final Result Performing Organization Address [facility] Co de Phone Number [facility] * ALL LIPID PROFILE (FASTING) (10/29/2024 1:04 [...] Narrative CLINISYNC - 10/29/2024 1:33 PM EDT Generic External Data Provider CLINISYNC F inal Result Performing Organization Address [facility] Co de Phone Number [facility] * ALL DHEA SULFATE (10/29/2024 1:04 PM EDT) Pathologist [facility] DHEA-SULFATE 67.7 41.2 - 243.7 ug/dL TB Comment: Performed at: [address] [id number] [place] [employer] Process: Iftikhar Romero PhD, Phone: [phone] 10/29/2024 1:04 PM EDT 10/29/2024 1:07 PM EDT Narrative CLINISYNC - 10/30/2024 8:09 AM EDT Generic External Data Provider CLINISYNC F inal Result Performing Organization Address City/[facility]/ZIP Co de Phone Number [facility] * (ABNORMAL) ALL CBC WITH AUTO DIFF [...] 1:16 PM EDT us Sonya Mejia NP CLINISYNC Final Result [facility] * (ABNORMAL) ALL C REACTIVE PROTEIN (10/29/2024 1:04 PM EDT) C REACTIVE PROTEIN 0.58(H) <=0.50 mg/dL TBH 10/29/2024 1:04 PM EDT 10/29/2024 1:07 PM EDT Narrative CLINISYNC - 10/29/2024 1:32 PM EDT Sonya Mejia NP CLINISYNC Final Result [facility] * ALL AMYLASE (10/29/2024 1:04 PM EDT) AMYLASE 52 25 - 115 U/L TB 10/29/2024 1:04 PM EDT 10/29/2024 1:07 PM EDT Narrative CLINISYNC - 10/29/2024 1:32 PM EDT Sonya Mejia NP CLINISYNC Final Result Performing Organization Address [facility]/ZIP Co de Phone Number [facility] * (ABNORMAL) POCT Urinalysis dipstick (10/28/2024 5:17 [...] EDT Narrative 08/06/2024 2:50 PM EDT The [address] [address] Mammography Report Signed Patient: TASHA REVELES MR#: [id number] : 1975 Acct:[id number] Age/Sex: 49 / F ADM Date: 08/06/24 Loc: MAMMO Attending Dr: Sonya Mejia NP Ordering Physician: Sonya Mejia NP Results: Date of Service: 08/06/24 Follow Up: Procedure(s): MM tomosynthesis screening BI Accession Number(s): [id number] cc: Sonya Mejia NP Patient Name: TASHA REVELES MR#: [id number] : 1975 Exam Date: 08/06/2024 Ordering Doctor: DENISE Mejia GLOBAL HUMAN RESOURCES DIRECTOR RADIOLOGY REPORT PROCEDURE: MM TOMOSYNTHESIS SCREENING BI [...] ovarian cancer at age 42. LOCATION: The [facility] BREAST COMPOSITION: The breasts are almost entirely [...] Signed By: 08/06/24 1450 DD/ 1449 TD/TT: Family Resource Management Specialist: Procedure Note Radiology, Radiologist, MD - 08/06/2024 [place] [address] Mammography Report Signed Patient: TASHA REVELES MMR#: [id number] : 1975Acct:[id number] Age/Sex: 49 / FADM Date: 08/06/24 Loc: MAMMO Attending Dr: Sonya Mejia SUPERVISOR PHOTOENGRAVING Ordering Physician: Sonya Mejia NPResults: Date of Service: 08/06/24Follow Up: Procedure(s): MM tomosynthesis screening BI Accession Number(s): [id number] cc: Sonya Mejia NP Patient Name: TASHA REVELES MR#: [id number] : 1975 Exam Date: 08/06/2024 Ordering Doctor: DENISE Mejia GLOBAL HUMAN RESOURCES DIRECTOR RADIOLOGY REPORT PROCEDURE: MM TOMOSYNTHESIS SCREENING BI COMPARISON: MM TOMOSYNTHESIS SCREENING BI, 08/06/2023. MG MAMM [id number] CORNEL CAD, 08/04/2022. MG MAMM SCREEN CORNEL [...] ovarian cancer at age 42. LOCATION: The [facility] BREAST COMPOSITION: The breasts are almost entirely [...] M.D. Signed By:08/06/24 1450 DD/ 1449 TD/TT: Family Resource Management Specialist: us Sonay Mejia NP CLINISYNC IMAGING Final Result * COLONOSCOPY DIAGNOSTIC (06/05/2024 2:23 PM EST) Anatomical Region Laterality Modality Radiographic Maureen ging us Donell Reyes MD IMG XR PROCEDURES Final Result from Last 3 Months or Most Recently Relevant to Health Maintenance Insurance MEDICARE Care Teams Director Treasurer Relationship Specialty Start Date End Date Abad Garcia MD [address] [place] [address] PCP - General Family Medicine 02/21/24 Sonya Mejia NP [address] [place] [address] Referring Physician Nurse Practitioner 11/13/22 Sonya Mejia NP [address] [place] [address] Nurse Practitioner Family Medicine 06/07/23
--- OUTSIDE RECORDS SUMMARY | 2024-10-30 13:35 | XMS_ITS | Clinical Summary ---
Author Organization [facility] Address [address] [place] [address] Care Team Providers Care Cage Supervisor Name Role Phone Kim Rojas MD Primary Care Provider [phone] Allergies Active Allergy Reactions Criticality Noted Date [...] traction retinal detachments involving maculae, unspecified whether long-term insulin use (HCC),Nuclear sclerotic cataract, bilateral,Posteri or subcapsular polar age-related cataract, bilateral Take by mouth one time a week. Active lisinopril (ZESTRIL, PRINIVIL) 40 mg tabletIndications :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, unspecified whether long-term insulin use (HCC),Nuclear sclerotic cataract, bilateral,Posteri or subcapsular polar age-related cataract, bilateral Take 40 mg by mouth every morning. 01/25/20 21 Active V-GO 40 deviIndications:T ype 2 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, unspecified whether long-term insulin use (HCC),Nuclear sclerotic cataract, bilateral,Posteri or [...] is lower risk 4 08/07/2023 Data from: https://www.neighborhoodatlas.medicine.[facility].edu/. Last address used for calculation [address] [...] PM EDT Office Visit [facility] [address] [address] Richelle Monreal PA-C [address] [place] [address] JANELLE Travis in 6 months Health Maintenance [...] 08/05/2033 08/06/2023 Medical Devices Implanted Type Area Missing Persons Investigator Device Identifier Shelf Expiration Date Model / Serial / Lot Gas Ispan Constellation Intraocular Vision System [id number] 125gm - [id number] Implanted:Qty: 1 on 08/09/2016 at [facility] Implant Right: Eye [employer] 12/21/2016 [id number] / / [id number] Gas Ispan Constellation Intraocular Vision System C3f8 125gm - [id number] Implanted:Qty: 1 on 10/10/2017 at [facility] Implant Left: Eye [employer] 10/20/2018 [id number] / / [id number] Procedures Procedure Name Priority Date/Time Associated Diagnosis Comments PAP FLUID VAGINAL VAULT SCREENING Routine 12/12/2019 10:36 AM EDT Endometrial cancer (HCC) Encounter for screening for malignant neoplasm of cervix from Last 3 Months or Most Recently Relevant to Health Maintenance Results * PAP FLUID VAGINAL VAULT SCREENING (12/12/2019 10:36 AM EDT) Russian Language Professor Specimen originated from [facility] Specimen #: [id number] Submitting Physician: MEG KEBEDE PA-C SPECIMEN SUBMITTED [...] from every slide are reviewed by a jd edwards developer. CHANEL Fajardo(ASCP) (Electronic Signature) CLINICAL DATA HYSTERECTOMY TOTAL, HPV Testing: No HPV test Date of Last Menstrual Period: Hysterectomy STAINS A: VAGINAL VAULT,SCREENING, FLUID THIN PREP CHAGO Rivers M.D., Export Packer Date of Report: 12/17/2019 Date of Procedure: 12/12/2019 Date of Receipt: 12/15/2019 Submitted by: MEG KEBEDE PA-C Additional Physician(s): FANTA ALCAZAR MD Location: [facility] Diagnostic interpretation performed at [facility], [address] [facility] [address]. [place] Number: [id number] The Pap Smear is a screening test for cervical cancer. False negative results occur with all screening tests, emphasizing the need for rescreening at recommended intervals, and clinical correlation. [facility] Vaginal swab (specimen) VAGINAL SWAB / Unknown 12/12/2019 10:36 AM EDT 12/15/2019 3:04 PM EDT Meg Kebede PA-C CYTOLOGY Final Result [facility] [address] [place] [address] from Last 3 Months or Most Recently Relevant to Health Maintenance Insurance MEDICARE Care Teams Cage Supervisor Relationship Specialty Start Date End Date Kim Rojas MD [address] [facility] [place] [address] PCP - General Family Medicine 06/07/18
--- OUTSIDE RECORDS SUMMARY | 2024-10-30 13:35 | XMS_ITS | Patient Health Record ---
Author Organization [facility] Serv[facility] es Address [address] [place] [address] Support Name Relationship Address Phone CHIDI REVELES Emergency Contact [address] [place], [place] [id number] HE REVELES Guarantor Unknown [phone] Allergies Allergen (clinical drug ingredient) Drug/Non Drug [...] Disorder due to type 2 diabetes mellitus (930092940) Type 2 diabetes mellitus with unspecified complications (E11.8) Active confirmed Problem Essential hypertension (52275343) Essential hypertension (I10) Active confirmed Problem Dyslipidemia (232076520) Dyslipidemia (E78.5) Active confirmed Problem Recurrent major depression in remission (82857474) Recurrent major depressive disorder, in partial remission (F33.41) Active confirmed Problem Recurrent major depression in full remission (32675809) Recurrent major depressive disorder, in full remission (F33.42) Active confirmed Plan Of Treatment No Information Insurance Providers Payer Name Payer Address Payer Phone Subscriber Number Group Number Insured Name Patient Relationship to Insured Coverage Start Date Coverage End Date MEDICARE CGS [address] [place] [address] [id number] ANUSHKAEMPERATRIZY Self - patient is the insured 1 [place] [address] [place] [address] [id number] ANUSHKAHE ADLER Self - patient is the [...]
--- OUTSIDE RECORDS SUMMARY | 2024-10-30 13:35 | XMS_ITS | Encounter Summary ---
Author Organization [facility] Address [address] [place] [address] Care Team Providers Care Phone Manager Name Role Phone Abad Garcia MD Primary Care Provider [phone] Sonya Mejia ROOM ATTENDANT Unavailable [phone] Abad Garcia MD Primary Care Provider [phone] Sonya Mejia ROOM ATTENDANT Unavailable [phone] Unallocated, [facility]oms Provider Primary Care Provi tremayne Abad Garcia MD Primary Care Provider [phone] Encounter Details Date Type Department Care Team (Late st Contact Info) Description 02/08/2023 Abstract [facility] [address] [facility] [address] [place] [address] Martin Mendoza, DPJairo [address] [facility] [address] [place] [address] Social History Tobacco Use Types Packs/Day Years [...] [facility] [address] [place] [address] Sonya Mejia, ABBE [address] [place] [address] documented as of this encounter Visit Diagnoses Not on filedocumented in this encounter Care Teams Phone Manager Relationship Specialty Start Date End Date Abad Garcia MD PCP - General Family Medicine 11/13/22 06/06/23 Abad Garcia MD [address] [place] [address] PCP - General Family Medicine 06/07/23 02/11/24 Unallocated, [facility] ProviderMD [address] [place] [address] PCP - General Family Medicine 02/12/24 02/20/24 Abad Garcia MD [address] [place] [address] PCP - General Family Medicine 02/21/24 Sonya Mejia NP [address] [place] [address] Referring Physician Nurse Practitioner 11/13/22 Sonya Mejia NP [address] [place] [address] Nurse Practitioner Family Medicine 06/07/23 documented as of this encounter
--- OUTSIDE RECORDS SUMMARY | 2024-10-30 13:35 | XMS_ITS | Encounter Summary ---
Author Organization [facility] Address [address] [place] [address] Care Team Providers Care Inspector Electromechanical Name Role Phone Sonya Mejia SCALPING MACHINE OPERATOR Unavailable [phone] Sonya Mejia NP Unavailable [phone] Abad Garcia MD Primary Care Provider [phone] Encounter Details Date Type Department Care Team (Late st Contact Info) Description 10/28/2024 Bamboo flowsheet [facility] [address] [place] [address] Sonya Mejia NP [address] [place] [address] Social History Tobacco Use Types Packs/Day Years [...] Never 04/01/2023 How often do you attend hoahaoism or temple serv ices? Never 04/01/2023 Do you belong to any clubs o r organizations such as hoahaoism groups, unions, fraternal or athletic groups, or [...] Recorded Patient Health Questionnaire-2 Score 0 06/07/2023 [facility] - Occupational Stress [...] place to sleep or slept in a [place] (including now)? No 04/01/2023 Comments Unknown Sex [...] Office Visit [facility] [address] [place] [address] Sonya Mejia NP [address] [place] [address] documented as of this encounter Visit Diagnoses Not on filedocumented in this encounter Additional Health Concerns Assessment Noted Time PHQ-9 Depression Total Score: 4 06/07/19 24 5:14 PM EST documented as of this encounter Care Teams Inspector Electromechanical Relationship Specialty Start Date End Date Abad Garcia MD [address] [place] [address] PCP - General Family Medicine 02/21/24 Sonya Mejia NP [address] [place] [address] Referring Physician Nurse Practitioner 11/13/22 Sonya Mejia NP [address] [place] [address] Nurse Practitioner Family Medicine 06/07/23 documented as of this encounter
--- OUTSIDE RECORDS SUMMARY | 2024-10-30 13:35 | XMS_ITS | Clinical Summary ---
Author Organization [facility] Address [id number] [address] [place] [address] Care Team Providers Care Disaster Recovery Analyst Name Role Phone Unavailable Primary Care Provider [...]
--- OUTSIDE RECORDS SUMMARY | 2024-10-30 13:35 | XMS_ITS | Encounter Summary ---
Author Organization [facility] Address [address] [place] [address] Care Team Providers Care Study Abroad Coordinator Name Role Phone Sonya Mejia NP Unavailable [phone] Abad Garcia MD Primary Care Provider [phone] Sonya Mejia NP Unavailable [phone] Unallocated, [facility] Provider Primary Care Provi tremayne Abad Garcia MD Primary Care Provider [phone] Encounter Details Date Type Department Care Team (Late st Contact Info) Description 08/06/2023 Clinisync Result Encounter [facility] External Department Unsolicited Sonya Mejia NP [address] [place] [phone] Social History Tobacco Use Types Packs/Day Years [...] How often do you attend latter-day or jewish serv ices? Never 04/01/2023 Do you belong [...] Recorded Patient Health Questionnaire-2 Score 0 06/07/2023 [facility] [place] of Occupat ional Health - Occupational Stress [...] place to sleep or slept in a longterm (including now)? No 04/01/2023 Comments Unknown Sex [...] Visit [facility] [address] [place] [address] Sonya Mejia NP [address] [place] [address] documented as of this encounter Procedures Procedure Name Priority Date/Time Associated Diagnosis Comments MM TOMOSYNTHESIS SCREENING BI 08/06/2023 2:25 PM EDT documented in this encounter Results * MM TOMOSYNTHESIS SCREENING BI (08/06/2023 2:25 PM EDT) Anatomical Region Laterality Modality Other 08/06/2023 2:25 PM EDT Narrative 08/06/2023 2:26 [place] [address] Mammography Report Signed Patient: HE REVELES MR#: [id number] : 1975 Acct:[id number] Age/Sex: 48 / F ADM Date: 08/06/23 Loc: MAMMO Attending Dr: Sonya Mejia NP Ordering Physician: Sonya Mejia NP Results: Date of Service: 08/06/23 Follow Up: Procedure(s): MM tomosynthesis screening BI Accession Number(s): [id number] cc: Sonya Mejia NP Patient Name: HE REVELES MR#: [id number] : 1975 Exam Date: 08/06/2023 Ordering Doctor: [...] ovarian cancer at age 42. LOCATION: [facility] BREAST COMPOSITION: Scattered areas fibroglandular [...] Signed By: 08/06/23 1426 DD/ 1425 TD/TT: Oracle Database Analyst: Procedure Note Radiology, Radiologist, - 08/06/2023 [place] [address] Mammography Report Signed Patient: HE REVELES MMR#: [id number] : 1975Acct:[id number] Age/Sex: 48 / FADM Date: 08/06/23 Loc: MAMMO Attending Dr: Sonya Mejia ROOM SERVICE MANAGER Ordering Physician: Sonya Mejia NPResults: Date of Service: 08/06/23Follow Up: Procedure(s): MM tomosynthesis screening BI Accession Number(s): [id number] cc: Sonya Mejia NP Patient Name: HE REVELES MR#: [id number] : 1975 Exam Date: 08/06/2023 Ordering Doctor: [...] ovarian cancer at age 42. LOCATION: [facility] BREAST COMPOSITION: Scattered areas fibroglandular [...] M.D. Signed By:08/06/23 1426 DD/ 1425 TD/TT: Oracle Database Analyst: Sonya Mejia ROOM SERVICE MANAGER [facility] Final Result documented in this encounter Visit Diagnoses Not on filedocumented in this encounter Additional Health Concerns Assessment Noted Time PHQ-9 Depression Total Score: 4 06/07/19 24 5:14 PM EST documented as of this encounter Care Teams Study Abroad Coordinator Relationship Specialty Start Date End Date Abad Garcia MD [address] [place] [address] PCP - General Family Medicine 06/07/23 02/11/24 Unallocated, [facility] Provider, [address] [place] [address] PCP - General Family Medicine 02/12/24 02/20/24 Abad Garcia MD [address] [place] [address] PCP - General Family Medicine 02/21/24 Sonya Mejia NP [address] [place] [address] Referring Physician Nurse Practitioner 11/13/22 Sonya Mejia NP [address] [place] [address] Nurse Practitioner Family Medicine 06/07/23 documented as of this encounter
--- OUTSIDE RECORDS SUMMARY | 2024-10-30 13:35 | XMS_ITS | Encounter Summary ---
Author Organization [facility] Address [address] [place] [address] Care Team Providers Care Development Chemist Name Role Phone Sonya Mejia WHEEL INSTALLER Unavailable [phone] Abad Garcia MD Primary Care Provider [phone] Sonya Mejia WHEEL INSTALLER Unavailable [phone] Unallocated, [facility] Provider Primary Care Provi tremayne Abad Garcia MD Primary Care Provider [phone] Encounter Details Date Type Department Care Team (Late st Contact Info) Description 02/11/2024 Orders Only [facility] [address] [place] [address] Phu Muro MD [address], [place] [id number] Social History Tobacco Use Types Packs/Day Years [...] How often do you attend congregation or worship serv ices? Never 04/01/2023 Do you belong [...] Recorded Patient Health Questionnaire-2 Score 0 06/07/2023 [facility] Occupational Stress Questionnaire Answer [...] Office Visit [facility] [address] [place] [address] Sonya Mejia NP [address] [place] [address] documented as of this encounter Procedures Procedure Name Priority Date/Time Associated Diagnosis Comments SCANNED LABS Routine 02/11/2024 5:32 PM EDT XR CHEST 1 VIEW Routine 02/11/2024 4:26 PM EDT documented in this encounter Results * SCANNED LABS (02/11/2024 5:32 PM EDT) us Sonya Mejia WHEEL INSTALLER LAB CHG PERFORMABLES Final Resu lt * [...] documented as of this encounter Care Teams Development Chemist Relationship Specialty Start Date End Date Abad Garcia MD [address] [place] [address] PCP - General Family Medicine 06/07/23 02/11/24 Unallocated, [facility] Provider, [address] [place] [address] PCP - General Family Medicine 02/12/24 02/20/24 Abad Garcia MD [address] [place] [address] PCP - General Family Medicine 02/21/24 Sonya Mejia NP [address] [place] [address] Referring Physician Nurse Practitioner 11/13/22 Sonya Mejia NP [address] [place] [address] Nurse Practitioner Family Medicine 06/07/23 documented as of this encounter
--- OUTSIDE RECORDS SUMMARY | 2024-10-30 13:35 | XMS_ITS | Encounter Summary ---
Author Organization [facility] Address [address] [place] [address] Care Team Providers Care Air Conditioning Installer Supervisor Name Role Phone Sonya Mejia NP Unavailable [phone] Abad Garcia MD Primary Care Provider [phone] Sonya Mejia ELECTROENCEPHALOGRAPHIC TECHNOLOGIST Unavailable [phone] Unallocated, [facility] Provider Primary Care Provi tremayne Abad Garcia MD Primary Care Provider [phone] Encounter Details Date Type Department Care Team (Late st Contact Info) Description 08/06/2023 Orders Only [facility] [address] [place] [address] Sonya Mejia, ELECTROENCEPHALOGRAPHIC TECHNOLOGIST [address] [place] [address] Social History Tobacco Use Types [...] Never 04/01/2023 How often do you attend advent or restorationism serv ices? Never 04/01/2023 Do you belong to any clubs o r organizations such as advent groups, unions, fraternal or athletic groups, or [...] Recorded Patient Health Questionnaire-2 Score 0 06/07/2023 [facility] [place] of Occupat ional Health - Occupational [...] Visit [facility] [address] [place] [address] Sonya Mejia NP [address] [place] [address] documented as of this encounter Procedures Procedure Name Priority Date/Time Associated Diagnosis Comments MM SCREENING MAMM WITH 3D LUIS ENRIQUE - US AND ADDITIONAL Routine 08/06/2023 3:00 PM EDT documented in this encounter Results * MM SCREENING MAMM WITH 3D LUIS ENRIQUE - US AND ADDITIONAL (08/06/2023 3:00 PM EDT) Anatomical Region Laterality Modality Radiographic Maureen ging us Sonya Mejia ELECTROENCEPHALOGRAPHIC TECHNOLOGIST IMG XR PROCEDURES Final Result documented in this encounter Visit Diagnoses Not on filedocumented in this encounter Additional Health Concerns Assessment Noted Time PHQ-9 Depression Total Score: 4 06/07/19 5:14 PM EST documented as of this encounter Care Teams Air Conditioning Installer Supervisor Relationship Specialty Start Date End Date Abad Garcia MD [address] [place] [address] PCP - General Family Medicine 06/07/23 02/11/24 Unallocated, Noms Provider, [address] [place] [address] PCP - General Family Medicine 02/12/24 02/20/24 Abad Garcia MD [address] [place] [address] PCP - General Family Medicine 02/21/24 Sonya Mejia NP [address] [place] [address] Referring Physician Nurse Practitioner 11/13/22 Sonya Mejia NP [address] [place] [address] Nurse Practitioner Family Medicine 06/07/23 documented as of this encounter
[2024-10-30 13:47] LABS: Glucose Urine UA 100 mg/dL (NEGATIVE)
== END 2024-10-30 13:31 | disposition home or self-care (01) ==
LOC: LAB 13:30
PROVIDERS: PCP Nurse Practitioner; Visit Provider Nurse Practitioner
DX: R10.84 Generalized abdominal pain (principal)
CPT/HCPCS: 81003; 87086

== ENCOUNTER 2025-02-10 23:55 | Emergency (ER) | payer MEDICARE, SELFPAY ==
[2025-02-10 23:52] VITALS: BP 202/169; PULSE 140; TEMP 36.6; O2SAT 99; BMI 42.0
[2025-02-10 23:53] VITALS: O2SAT 98
[2025-02-10 23:54] VITALS: BP 202/169; O2SAT 99
--- NOTE | 2025-02-10 23:58 | ECG_ITS ---
[facility] Test Date: 2025-02-11 Pat Name: HE REVELES Department: Room: - Gender: Female Parole Hearing Officer: : 1975 Requested By: [id number] Order Number: [id number] Reading MD: SOURAV LEBRON M.D. Measurements Intervals [place] Rate: 143 P: 113 [place]: 142 QRS: 91 QRSD: 72 T: 52 QT: 314 QTc: 397 Interpretive Statements 1120 Sinus tachycardia 4068 Nonspecific Twave abnormality 7102 Moderate right axis deviation 8102 Low QRS voltage in chest leads 0101 Possible arm leads reversed, check lead requested 9140 abnormal rhythm ECG Compared to ECG 02/10/2024 21:45:42 Myocardial infarct finding no longer present Electronically Signed On 02-11-2025 7:40:18 EDT by SOURAV LEBRON M.D.
[2025-02-10 23:59] VITALS: O2SAT 99
[2025-02-11] VITALS (14 sets, daily range): BP systolic 107–164; BP diastolic 65–108; PULSE 132–147; O2SAT 98–100
--- OUTSIDE RECORDS SUMMARY | 2025-02-11 | XMS_ITS | CCD ---
Author Organization [facility] Care Team Providers Care Dye Operator Name Role Phone [facility] Primary Care Provider [phone] Mariam Beyer Attending Provider Abner Cartwright Attending Provider Glenna Quinones Unavailable Jessica Owens MD Primary Care Provider [phone] Sonya Mejia Primary Care Provider HARI Quinones Attending Provider [facility] Primary Care Provider [phone] HARI Beyer Attending Provider AICHHOLZ, VACUUM CLEANER ASSEMBLER SONYA Attending Unavailable AICHHOLZ, VACUUM CLEANER ASSEMBLER SONYA Admitting Unavailable AICHHOLZ, VACUUM CLEANER ASSEMBLER SONYA Primary Care Unavailable AICHHOLZ, VACUUM CLEANER ASSEMBLER SONYA Attending Unavailable AICHHOLZ, VACUUM CLEANER ASSEMBLER SONYA Admitting Unavailable DR MATT CABRERA Primary Care Unavailable AICHHOLZ, VACUUM CLEANER ASSEMBLER SONYA Consulting Unavailable AICHHOLZ, VACUUM CLEANER ASSEMBLER SONYA Attending Unavailable AICHHOLZ, VACUUM CLEANER ASSEMBLER SONYA Admitting Unavailable AICHHOLZ, VACUUM CLEANER ASSEMBLER SONYA Primary Care Unavailable AICHHOLZ, VACUUM CLEANER ASSEMBLER SONYA Consulting Unavailable DR VALERIANO SINCLAIR Consulting Unavailable KAYA PATEL Consulting Unavailable JOSÉ ., ADAM Admitting Unavailable JOSÉ ., ADAM Attending Unavailable AICHHOLZ, VACUUM CLEANER ASSEMBLER SONYA Primary Care Unavailable JOSÉ Valle, ADAM Consulting Unavailable Mark Gramajo Unavailable [facility] Primary Care Provider HARI Beyer Attending Provider Sonya Mejia Primary Care Provider HARI Gramajo Attending Provider Jose APODACA, Abad Primary Care Provider Jackie MARINE WATER TENDER, Sonya Unavailable [facility] Primary Care Provider [phone] HARI Beyer Attending Provider [phone] Jose APODACA, Abad Primary Care Provider Jackie MARINE WATER TENDER, Sonya Unavailable Bob APODACA, Jessica Primary Care Provider [facility] Primary Care Provider [phone] HARI Beyer Attending Provider [phone] Sonya Mejia Primary Care Provider HARI Quinones Attending Provider Jackie MARINE WATER TENDER, Sonya Unavailable Unallocated MD, Noms Provider Primary Care Provi tremayne Jose APODACA, Abad Primary Care Provider SONYA MEJIA Primary Care Physician [phone] Bob APODACA, Jessica Primary Care Provider [phone] Donell Mcgrath MD Attending Provider Donell MCGRATH Attending Unavailable SONYA MEJIA Referring Unavailable Donell MCGRATH Attending Unavailable Donell MCGRATH Attending Unavailable Donell Mcgrath MD Attending Provider Sonya Mejia Primary Care Provider Nas APODACA, Anila Carl Emergency Provider Glenna Quinones APRN Attending Provider Blane Downs RN Attending Provider Unavailabl e Sonya Mejia Attending Provider SONYA MEJIA Attending Unavailable SONYA MEJIA Attending Unavailable SONYA MEJIA Attending Unavailable SONYA MEJIA Attending Unavailable Anila Lovell Attending Unavailable Sonya Mejia Primary Care Unavailable Anila Lovell Admitting Unavailable Donell Mcgrath Admitting Unavailable Donell Mcgrath Attending Unavailable Sonya Mejia Admitting Unavailable Soyna Mejia Primary Care Unavailable Sonya Mejia Attending Unavailable GLENDY MONREAL Attending Unavailable JASON ACEVEDO Attending Unavailable JASON ACEVEDO Referring Unavailable JESSICA OWENS Primary Care Unavailable Sonya Mejia Primary Care Provider Glenna Quinones APRN Attending Provider Yareli RN, Blane Attending Provider Unavailabl e Allergies Allergy ClassificationReported Allergen(s)Allergy TypeDate of OnsetReaction(s) Facility (20 sources)DAHU0eDmamaznphy to adverse reactionsDKA l5Ojfcq LATTO Other (5 sources)Seasonal allergy; Translations: [SEASONAL ALLERGIES]Allergy to abgntbead85-10-8613Ftsje: See CommentsGre[facility] ([facility] sources)dulaglutide; Translations: [dulaglutide]Drug [place]22-07-3563 Vomiting (disorder)[facility] Medications Current Medications MedicationDrug Class(es)DatesSig (Normalized)Sig (Original)0.5 ML tirzepatide 20 MG/ML Auto-Injector [Mounjaro] (2 sources)Start: 94-68-1649wbyzmt 10 mg by subcutaneous injection every week Mounjaro 10 mg/0.5 mL subcutaneous solution 10 mg, SubCutaneous, qWeek, Refills(s) 0 Start Date: 05/22/24 Status: Ordered3 ML semaglutide 1.34 MG/ML Pen Injector [Ozempic] (7 sources)Start: 78-25-4830wyccpr 1 mg by subcutaneous injection every week Ozempic (1 MG/DOSE) 4 MG/3ML 1mg SQ once weekly for 30 days return to 2 mg when available Jan, ActiveStart: 57-59-6224itkmpq 1 mg by subcutaneous injection every weekOzempic (1 MG/DOSE) 4 MG/3ML 1mg SQ once weekly for 90 day(s) Dec, Activeinject 1 mg by subcutaneous injection every week Ozempic (1 MG/DOSE) 4 MG/3ML 1mg SQ once weekly for 90 day(s) Active3 ML semaglutide 2.68 MG/ML Pen Injector [Ozempic] (16 sources)Start: 55-98-9539hmbdzr 2 mg by subcutaneous injection every week Ozempic (2 MG/DOSE) 8 MG/3ML 2 mg Subcutaneous weekly for 90 days May, Activeinject 2 mg by subcutaneous injection every weekOzempic (2 MG/DOSE) 8 MG/3ML 2 mg Subcutaneous weekly for 90 days ok to dispense 1mg weekly if 2 mg unavailable Activeinject 2 mg by subcutaneous injection every weekOzempic (2 MG/DOSE) 8 MG/3ML 2 mg Subcutaneous weekly for 90 days ActiveamLODIPine 10 mg oral tablet (20 sources)Dihydropyridine Calcium Channel BlockerStart: 49-86-7583urlk 1 tablet by mouth once dailyatorvastatin 80 mg oral tablet (20 sources)HMG-CoA Reductase InhibitorStart: 05-24-2023 End: 38-73-8595lkhv 1 tablet by mouth once dailyStart: 01-31-2018 End: 82-51-4661aklv 1 tablet by mouth once dailyAtorvastatin 10 mg tablet Discontinued 10 MG PO Daily January 31, 2018 12:00am June 30, 2019 2:22pm End: 41-55-5817syhf 1 tablet by mouth in the morningatorvastatin (Lipitor) 40 MG tablet Take 1 tablet by mouth in the morning. 0 05/24/2023 Discontinued (Ineffective)take 1 tablet by mouth every twenty-four hoursAtorvastatin Calcium 20 MG 1 tablet Orally Once a day for 90 days ActiveComment on above:Take 10 mg by mouth once daily.Basaglar KwikPen (2 sources)Start: 46-02-2956egfewr 30 [IU] by subcutaneous injection once daily Basaglar KwikPen 30 unit(s), SubCutaneous, Daily, Refills(s) 0 Start Date: 05/22/24 Status: Orderedbenoxinate hydrochloride 4 mg/ml / fluorescein sodium 3 mg/ml ophthalmic solution (5 sources)Diagnostic DyeStart: 12-01-2024 End: 83-87-8511nlslapbtepl-benoxinate 0.3-0.4 % 1 drop (FLURESS)Start: 06-03-2024 End: 39-61-7664wbaklslssil-benoxinate 0.3-0.4 % 1 Drop (FLURESS)Start: 06-03-2024 End: Drop, BOTH EYES, DIRECTED, Starting on Sun06/03/24 at 0930, Until Sun06/03/24 at 2129, Administer for applanation tonometry. In the event of a Fluress shortage, administer 1 drop of Samantha-Fluor into both eyes as directed for applanation tonometry., OPHT CLINIC MED ORDERSStart: 08-07-2023 End: 14-97-0558wmvxrtmcdka-benoxinate 0.25-0.4 % 1 Drop (FLURESS)Start: 01-31-2022 End: 97-57-0984bzcaoxxwyzt-benoxinate 0.25-0.4 % 1 Drop (FLURESS)Centrum Adults - (20 sources)take 1 tablet by mouth once dailyCentrum Adults - 1 tablet Orally daily Activecephalexin 500 mg oral capsule (4 sources)Cephalosporin AntibacterialStart: 01-22-8873vdonUKUGoy (KEFLEX) 500 mg capsule 03/18/2018 ActiveCholecalciferol (15 sources)Vitamin DStart: 77-63-2526cjcu 1 capsule by mouth once daily cholecalciferol (vitamin D3) Active 1 CAP PO Daily August 21, 2023 12:00am Complies with drug therapyStart: 64-17-3814agvi 1 capsule by mouth once daily Start: 11-80-2306jzzl 1 capsule by mouth once dailycholecalciferol (vitamin D3) Active 1 CAP PO Daily August 20, 2023 11:00pmStart: 02-14-4359kvtc 1 capsule by mouth once dailycholecalciferol (vitamin D3) Active 1 CAP PO Daily August 21, 2023 12:00amdicyclomine hydrochloride 20 mg oral tablet (20 sources)AnticholinergicStart: 61-17-5220kruaqojaerl (BENTYL) 20 mg tablet TAKE ONE 1 TABLET BY MOUTH EVERY 8 HOURS NEEDED FOR PAIN 6 02/18/2018 Active Start: 01-31-2018 End: 65-80-0287ruya 1 tablet by mouth once dailyDicyclomine 20 mg tablet Discontinued 20 MG PO Daily January 31, 2018 12:00am June 30, 2019 2:14pm Comment on above:TAKE ONE 1 TABLET BY MOUTH EVERY 8 HOURS NEEDED FOR PAIN empagliflozin 25 mg oral tablet (4 sources)Sodium-Glucose Cotransporter 2 InhibitorStart: 94-21-9307rvhu 1 tablet by mouth once dailyJARDIANCE 25 mg tablet Take 25 mg by mouth once daily. 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 Active Comment on above:Take by mouth one time a week.Fish Oils (20 sources)Fish Oil ActiveFlash Glucose Scanning [place] (Freestyle Neris 2 [place]) misc (15 sources)Start: 27-24-2853Vlyem Glucose Scanning [place] (Freestyle Neris 2 [place]) misc Active 0 .Route August 20, 2023 11:00pm As directedStart: 45-61-6191Ybisg Glucose Scanning [place] (Freestyle Neris 2 [place]) misc Active 0 .Route August 21, 2023 12:00am As directedStart: 07-41-1455Fylzj Glucose Scanning [place] (Freestyle Neris 2 [place]) misc Active 0 .ROUTE August 21, 2023 12:00am As directedFlash Glucose Sensor (Freestyle Neris 2 Sensor) kit (15 sources)Start: 58-81-5260Zbfip Glucose Sensor (Freestyle Neris 2 Sensor) kit Active 0 .Route August 20, 2023 11:00pm As directedStart: 83-99-1962Lphga Glucose Sensor (Freestyle Neris 2 Sensor) kit Active 0 .Route August 21, 2023 12:00am As directedStart: 59-18-7237Nurnm Glucose Sensor (Freestyle Neris 2 Sensor) kit Active 0 .ROUTE August 21, 2023 12:00am As directedFreeStyle Neris 2 Sensor - (20 sources)Start: 27-78-2725OktmMchig Neris 2 Sensor - as directed in vitro q 14 days for 84 days Jan, ActiveFreeStyle Neris 2 Sensor - as directed in vitro q 14 days for 84 days ActiveFreeStyle Neris [place] - (20 sources)Start: 95-13-5564XfyjLqwcw Neris [place] - as directed use with 14 days sensor check glucose with reader ac, hs, prn Dec, ActiveFreeStyle Neris [place] - as directed use with 14 days sensor check glucose with reader ac, hs, prn ActiveFreeStyle Neris Sensor (20 sources)FreeStyle Neris Sensor use with neris reader SQ change q 14 days, check glucose ac, hs and prn for 28 days DX E11.65 Neris 14 day Sensors Active FreeStyle Neris Sensor use with neris reader SQ change q 14 days, check glucose ac, hs and prn for 28 days ActiveInsulin Aspart U-100 100 unit/mL solution (7 sources)Start: 38-21-7010Toqdqix Aspart U-100 100 unit/mL solution Active 0 SUBCUT Use as Directed 50 90 July 28, 2024 12:00am for Fiasp--- USE DIRECTED per sliding SUBCUTANEOUSLY (UNDER THE SKIN) WITH VGO 40 *up to 90 UNITS DAILY *Start: 05-12-2024 End: 46-37-4473Cdhupom Aspart U-100 100 unit/mL solution Discontinued 0 SUBCUT Use as Directed 80 90 April 1:00am June 19, 2024 4:30pm USE DIRECTED per sliding SUBCUTANEOUSLY (UNDER THE SKIN) WITH VGO 40 *up to 90 UNITS DAILY *Start: 05-12-2024 End: 83-72-9415Xjvdefn Aspart U-100 100 unit/mL solution Discontinued 0 SUBCUT Use as Directed 80 90 April 12:00am June 19, 2024 3:30pm USE DIRECTED per sliding SUBCUTANEOUSLY (UNDER THE SKIN)WITH VGO 40 *up to 90 UNITS DAILY *Start: 46-50-0705Ycbgjsb Aspart U-100 100 unit/mL solution Active 0 SUBCUT Use as Directed 80 90 May 12, 2024 12:00am USE DIRECTED per sliding SUBCUTANEOUSLY (UNDER THE SKIN) WITH VGO 40 *up to 90 UNITS DAILY * Insulin Disposable Pump (V-Go 40) 40 UNIT/24HR kit (20 sources)Start: 64-76-0547Qofgcnm Disposable Pump (V-Go 40) 40 UNIT/24HR kit Inject 1 Pump as directed in the morning. 01/08/2023 ActiveStart: 01-08-2023 Insulin Disposable Pump (V-Go 40) 40 UNIT/24HR kit Inject 1 Pump as directed in the morning. 0 01/08/2023 Activeammonium lactate 120 mg/ml topical lotion (20 sources)Start: 03-61-3224gftdfodv lactate (LAC-HYDRIN) 12 % lotion Apply to affected area. 05/22/2024 ActiveStart: 78-05-0654Myc-Hydrin 12% topical lotion 1 marcio, Topical, BID, Refill(s) 0 Start Date: 05/22/24 Status: Orderedammonium lactate (Lac-Hydrin) 12 % lotion 1 application every 12 (twelve) hours Active loratadine 10 mg oral tablet (20 sources)Start: 10-15-2023 End: 59-23-2745yiuvgozfgg (CLARITIN) 10 mg tablet Take 10 mg by mouth. 05/01/2024 Activetake 1 tablet by mouth once dailyloratadine (Claritin) 10 MG tablet Take 10 mg by mouth 1 (one) time each day at the same time. 0 Active metFORMIN hydrochloride 1000 mg oral tablet (20 sources)BiguanideStart: 01-31-2018 End: 56-74-0376btkq 1 tablet by mouth twice daily at mealtimetake 1 tablet by mouth every twelve hoursmetFORMIN (Glucophage) 1000 MG tablet Take 1,000 mg by mouth every 12 (twelve) hours. ActiveComment on above:TAKE ONE 1 TABLET BY MOUTH TWICE DAILYMOUNJARO 10 mg/0.5 mL pen injector (2 sources)Start: 90-40-5008HOOFOSXN 10 mg/0.5 mL pen injector Inject 10 mg subcutaneously. 01/23/2024 ActiveMounjaro 12.5 MG/0.5ML solution auto-injector (9 sources)Start: 90-75-6629podpor 12.5 mg by subcutaneous injection once daily Mounjaro 12.5 MG/0.5ML solution auto-injector INJECT 12.5 MG UNDER THE SKIN ONE DAY A WEEK 08/21/2024 ActiveMulti Vitamins oral tablet (2 sources)Start: 10-55-5802yxdl 1 tablet by mouth once dailyMulti Vitamins oral tablet 1 tab(s), Oral, Daily, Refill(s) 0 Start Date: 05/22/24 Status: Ordered Multiple Vitamins-Minerals (ONE-A-DAY WOMENS PO) (20 sources)take 1 tablet by mouth once daily in the morningMultiple Vitamins- Minerals (ONE-A-DAY WOMENS PO) Take 1 tablet by mouth in the morning. Activetake 1 tablet by mouth once daily in the morningMultiple Vitamins-Minerals (ONE-A-DAY WOMENS PO) Take 1 tablet by mouth in the morning. 0 Active multivitamin-ferrous fumarate-folic acid (CENTRUM COMPLETE) (2 sources)multivitamin-ferrous fumarate-folic acid (CENTRUM COMPLETE) Take by mouth every 24 hours. Eowlaleq-vf-auid-FA-Ca carb-vit K (Women's Multivitamin) (15 sources)Start: 84-07-6152ssss 1 tablet by mouth once rnrnzuz-iq-ixhc-FA-Ca carb-vit K (Women's Multivitamin) Active 1 TAB PO Daily August 21, 2023 12:00am Complies with drug therapyStart: 47-40-4277hfkb 1 tablet by mouth once daily Start: 95-29-7443wvpp 1 tablet by mouth once dolvzjp-lx-vvpl-FA-Ca carb-vit K (Women's Multivitamin) Active 1 TAB PO Daily August 20, 2023 11:00pmStart: 14-34-9378fnhd 1 tablet by mouth once chiydnj-uj-ratt-FA-Ca carb-vit K (Women's Multivitamin) Active 1 TAB PO Daily August 21, 2023 12:00amomega-3 fatty acids (Fish Oil) (15 sources)Start: 08-47-2021lomq 1 capsule by mouth once dailyomega-3 fatty acids (Fish Oil) Active 1 CAP PO Daily August 21, 2023 12:00am Complies with drug therapyStart: 45-31-6154zcvi 1 capsule by mouth once dailyStart: 08-21-2023 take 1 capsule by mouth once dailyomega-3 fatty acids (Fish Oil) Active 1 CAP PO Daily August 20, 2023 11:00pmStart: 50-05-2230thtd 1 capsule by mouth once dailyomega-3 fatty acids (Fish Oil) Active 1 CAP PO Daily August 21, 2023 12:00amomeprazole 40 mg delayed release oral capsule (20 sources)Proton Pump InhibitorStart: 05-01-2024 End: 92-62-1386osoe 1 capsule by mouth before mealtimeomeprazole (PriLOSEC) [address] capsule Indications: Gastroesophageal reflux disease, unspecified whether esophagitis present Take 1 capsule (40 mg) by mouth in the morning. Take before meals. 90 capsule 1 10/28/2024 01/26/2025 ActiveStart: 11-02-2019 End: 22-05-5263Bduenqyvel 40 mg capsule,delayed release(DR/EC) Discontinued November 02, 2019 12:00am August 21, 2023 1:09pmStart: 44-58-4026Oylocnjlbq Active November 01, 2019 11:00pmStart: 01-31-2018 End: 98-18-6858sdpv 1 capsule by mouth once dailyComment on above:Take 40 mg by mouth once daily.phenylephrine hydrochloride 25 mg/ml ophthalmic solution (5 sources)alpha-1 Adrenergic AgonistStart: 12-01-2024 End: 92-92-0616UNWMDPbuialyz 2.5 % 1 drop (AK-DILATE, JESU-SYNEPHRINE)Start: 06-03-2024 End: 21-38-0023WUPVXHmgwkjml 2.5 % 1 Drop (AK-DILATE, JESU-SYNEPHRINE)Start: 06-03-2024 End: Drop, BOTH EYES, DIRECTED, Starting on Sun06/03/24 at 0930, Until Sun06/03/24 at 2129, Administer for dilation PROTECT FROM LIGHT, [facility] MED ORDERSStart: 08-07-2023 End: 17-34-4745VFFOWVtxqroyw 2.5 % 1 Drop (AK-DILATE, JESU-SYNEPHRINE)Start: 01-31-2022 End: 79-17-0932MLJPLQndlhowr 2.5 % 1 Drop (AK-DILATE, JESU-SYNEPHRINE)potassium chloride 10 meq extended release oral tablet (8 sources)Start: 05-06-8075caoi 1 tablet by mouth three times dailypotassium chloride (K-TAB) 10 mEq tablet Take 10 mEq by mouth three times daily. 0 03/08/2018 Activetake 1 capsule by mouth in the morning, then take 1 capsule by mouth in the evening, then take 1 capsule by mouth at bedtimepotassium chloride ER (Micro-K) 10 MEQ ER capsule Take 1 capsule by mouth in the morning and 1 capsule in the evening and 1 capsule before bedtime. Do not crush or chew. . 0 ActiveComment on above:Take 10 mEq by mouth three times daily.proparacaine hydrochloride 5 mg/ml ophthalmic solution (4 sources)Local AnestheticStart: 12-01-2024 End: 73-54-0366gfqhuoyxctcp 0.5 % 1 drop (ALCAINE)Start: 06-03-2024 End: 55-57-0994flnemnuodsrr 0.5 % 1 Drop (ALCAINE)Start: 08-07-2023 End: 81-43-9866tkfyatlkyzip 0.5 % 1 Drop (ALCAINE)Start: 01-31-2022 End: 22-67-3195vhnkjnkpmwkm 0.5 % 1 Drop (ALCAINE)0.25 mg, 0.5 mg dose 1.5 ml semaglutide 1.34 mg/ml pen injector (15 sources)Start: 89-14-7407clywqe 0.25 mg by subcutaneous injection every week Ozempic, 0.25 or 0.5 MG/DOSE, 2 MG/1.5ML solution pen-injector Inject 0.25 mg under the skin 1 (one) time per week. 0 12/19/2021 ActiveStart: 07-05-2021 Ozempic (0.25 or 0.5 MG/DOSE) 2 MG/1.5ML as directed Subcutaneous Jun, Activesertraline 50 mg oral tablet (20 sources)Serotonin Reuptake InhibitorStart: 08-21-2023 End: 43-71-6573ehnl 1 tablet by mouth once dailyStart: 04-25-2023 End: 84-97-6872njsd 1 tablet by mouth in the morningsertraline (Zoloft) 50 MG tablet Indications: Anxiety , Major depressive disorder with single episode, remission status unspecified (CMS/HCC) Take 1 tablet (50 mg) by mouth in the morning. 90 tablet 0 04/25/2023 07/24/2023 ActiveStart: 05-27-2018 End: 91-89-7848higt 1 tablet by mouth once dailySertraline 25 mg tablet Discontinued 25 MG PO Daily June 30, 2019 12:00am August 21, 2023 1:04pm Start: 31-26-3122olpi 2 tablets by mouth once dailysertraline (ZOLOFT) 25 mg tablet Take 50 mg by mouth once daily. 0 05/27/2018 Activetake 1 tablet by mouth every twenty-four hoursSertraline HCl 50 MG 1 tablet Orally Once a day Active Comment on above:Take 25 mg by mouth once daily.Take 50 mg by mouth once daily. Sub-Q Insulin Device, 40 Unit (V-Go 40) device (20 sources)Start: 62-95-8967Qft-Q Insulin Device, 40 Unit (V-Go 40) device Active 0 .Route July 29, 2024 9:37am Use to deliver insulin, change every day.Start: 05-16-2024 End: 91-60-0095Prl-Q Insulin Device, 40 Unit (V-Go 40) device Discontinued 0 .Route May 16, 2024 9:07am July 29, 2024 9:38am As directedStart: 02-10-1516Nml-Q Insulin Device, 40 Unit (V-Go 40) device Active 0 .Route May 16, 2024 8:07am As directedStart: 03-03-2024 End: 42-54-8876Kxh-Q Insulin Device, 40 Unit (V-Go 40) device Discontinued 0 .Route March 03, 2024 6:18pm May 16, 2024 9:08am As directedStart: 03-03-2024 End: 93-95-1231Mey-Q Insulin Device, 40 Unit (V-Go 40) device Discontinued 0 .Route March 03, 2024 5:18pm May 16, 2024 8:08am As directedStart: 16-14-7403Mno-Q Insulin Device, 40 Unit (V-Go 40) device Active 0 .Route March 03, 2024 5:18pm As directedStart: 01-30-2024 End: 72-24-4430Nzo-Q Insulin Device, 40 Unit (V-Go 40) device Discontinued 0 .Route January 30, 2024 1:18pm March 03, 2024 6:18pm As directedStart: 01-30-2024 End: 90-98-6644Wcu-Q Insulin Device, 40 Unit (V-Go 40) device Discontinued 0 .Route January 30, 2024 12:18pm March 03, 2024 5:18pm As directedStart: 83-96-7910Omo-Q Insulin Device, 40 Unit (V-Go 40) device Active 0 .Route January 30, 2024 12:18pm As directedStart: 08-21-2023 End: 66-41-0890Sua-Q Insulin Device, 40 Unit (V-Go 40) device Discontinued 0 .Route August 21, 2023 2:18pm January 30, 2024 1:18pm As directedStart: 08-21-2023 End: 12-64-9211Rlf-Q Insulin Device, 40 Unit (V-Go 40) device Discontinued 0 .Route August 21, 2023 1:18pm January 30, 2024 12:18pm As directedStart: 32-17-2899Seq-Q Insulin Device, 40 Unit (V-Go 40) device Active 0 .Route August 21, 2023 2:18pm As directedStart: 08-21-2023 End: 26-54-5233Pdg-Q Insulin Device, 40 Unit (V-Go 40) device Discontinued 0 .Route August 20, 2023 11:00pm 2023 1:20pm As directedStart: 08-21-2023 End: 83-27-8419Ctc-Q Insulin Device, 40 Unit (V-Go 40) device Discontinued 0 .Route August 21, 2023 12:00am 2023 2:20pm As directedStart: 56-67-4723Dhk-Q Insulin Device, 40 Unit (V-Go 40) device Active 0 .ROUTE August 21, 2023 12:00am As directedTirzepatide (10 sources)Start: 96-85-4308blkgev 1 mg by subcutaneous injection every week Tirzepatide 12.5 mg/0.5 mL pen injector Active 12.5 MG SUBCUT every week 2 August 12, 2024 4:53pm OK to dispense 10 mg IF 12.5 UNAVAILABLE unavailable, then revert to 12.5 mg when available Complieswith drug therapyStart: 08-12-2024 inject 1 mg by subcutaneous injection every weekStart: 85-37-2909tpyaax 1 mg by subcutaneous injection every weekTirzepatide 12.5 mg/0.5 mL pen injector Active 12.5 MG SUBCUT every week 2 August 12, 2024 4:53pm OK to dispense 10 mg IF 12.5 UNAVAILABLE unavailable, then revert to 12.5 mg when availableStart: 06-19-2024 End: 01-51-2333mnmgry 1 mg by subcutaneous injection every weekTirzepatide 12.5 mg/0.5 mL pen injector Discontinued 12.5 MG SUBCUT every week 2 June 19, 2024 5:16pm August 12, 2024 4:54pm OK to dispense 10 mg IF 12.5 UNAVAILABLE unavailable, then revert to 12.5 mg when availableStart: 11-42-2029jugadz 1 mg by subcutaneous injection every weekTirzepatide 12.5 mg/0.5 mL pen injector Active 12.5 MG SUBCUT every week 2 June 19, 2024 5:16pm OK to dispense 10 mg IF 12.5 UNAVAILABLE unavailable, then revert to 12.5 mg when availableStart: 75-75-4974ztcxom 1 mg by subcutaneous injection every weekTirzepatide 12.5 mg/0.5 mL pen injector Active 12.5 MG SUBCUT every week 2 June 19, 2024 4:16pm OK to dispense 10 mg IF 12.5 UNAVAILABLE unavailable, then revert to 12.5 mg when availabletropicamide 10 mg/ml ophthalmic solution (5 sources)AnticholinergicStart: 12-01-2024 End: 76-29-6646ijxtazmmyhu 1 % 1 drop (MYDRIACYL)Start: 06-03-2024 End: 29-94-4036dwfhfkgdwjm 1 % 1 Drop (MYDRIACYL)Start: 06-03-2024 End: Drop, BOTH EYES, DIRECTED, Starting on Sun06/03/24 at 0930, Until Sun06/03/24 at 2129, Administer for dilation, [facility] CLINIC MED ORDERSStart: 08-07-2023 End: 67-86-0144chpdjtyirrx 1 % 1 Drop (MYDRIACYL)Start: 01-31-2022 End: 37-73-2156ysuncjjopcr 1 % 1 Drop (MYDRIACYL)True Metrix Blood Glucose Test - (20 sources)Start: 56-31-1505Nyalz: 70-43-3573Yvtr Metrix Blood Glucose Test - as directed In Vitro 4 times a day for 90 days Sep, ActiveTrue Metrix Meter w/Device (20 sources)True Metrix Meter w/Device as directed ActiveV-Go 40 - (20 sources)V-Go 40 - USE DIRECTED DAILY for 30 Azv-YnwifkR-Ge 40 - USE DIRECTED DAILY for 30 ActiveV-Go 40 - as directed sq daily for 30 ActiveV-Go 40 - as directed sq daily for 90 days ActiveV-GO 40 fer (4 sources)Start: 12-44-2823U-GO 40 fer Indications: 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 USE DIRECTED. 04/25/2021 ActiveStart: 00-95-1998C-GO 40 fer Indications: 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, unspecified whether longterm insulin use (HCC) , Nuclear sclerotic cataract, bilateral , 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, bila teral once daily. USE DIRECTED. 0 04/25/2021 ActiveComment on above:once daily. USE DIRECTED.Vitamin B Complex (20 sources)take 1 tablet by mouth once dailyVitamin B Complex - 1 tablet Orally daily ActiveVITAMIN B COMPLEX ORAL (2 sources)VITAMIN B COMPLEX ORAL Take by mouth every 24 hours. Activevitamin B12 (15 sources)Vitamin J44Aeauy: 83-26-3705jqoq 1 tablet by mouth once daily cyanocobalamin (vitamin B-12) Active 1 TAB PO Daily August 21, 2023 12:00am Complies with drug therapyStart: 89-71-3829fiuv 1 tablet by mouth once daily Start: 23-77-2220uopt 1 tablet by mouth once dailycyanocobalamin (vitamin B-12) Active 1 TAB PO Daily August 20, 2023 11:00pmStart: 78-65-4920fioi 1 tablet by mouth once dailycyanocobalamin (vitamin B-12) Active 1 TAB PO Daily August 21, 2023 12:00amVitamin D 25 MCG (1000 UT) (20 sources)take 1 tablet by mouth once dailyVitamin D 25 MCG (1000 UT) 1 tablet Orally Once a day Active Completed/Discontinued Medications MedicationDrug Class(es)DatesSig (Normalized)Sig (Original)dexamethasone 1 mg oral tablet (6 sources)CorticosteroidStart: 06-19-2024 End: 62-38-5954xsuv 1 tablet by mouth once dailyDexamethasone 1 mg tablet Discontinued 1 MG PO Daily June 19, 2024 1:00am August 12, 2024 4:53pm 0.5 ml dulaglutide 1.5 mg/ml auto-injector (19 sources)GLP-1 Receptor AgonistStart: 11-02-2019 End: 58-74-9172xbsitb 1 mg by subcutaneous injection every weekDulaglutide (Trulicity) 0.75 mg/0.5 mL Pen Injector Discontinued MG SUBCUT every week November 02, 2019 12:00am August 21, 2023 1:02pmertugliflozin 15 mg oral tablet (20 sources)Start: 02-27-2019 End: 14-28-7828culk 1 tablet by mouth once dailyErtugliflozin 15 mg tablet Discontinued 15 MG PO Daily June 30, 2019 12:00am November 04, 2019 1:14pmFlash Glucose Scanning [place] (Freestyle Neris 14 Day [place]) misc (15 sources)Start: 08-21-2023 End: 43-77-2775Oadoi Glucose Scanning [place] (Freestyle Neris 14 Day [place]) misc Discontinued 0 .Route August 20, 2023 11:00pm August 21, 2023 12:09pm As directedStart: 08-21-2023 End: 84-41-8964Tivji Glucose Scanning [place] (Freestyle Neris 14 Day [place]) misc Discontinued 0 .Route August 21, 2023 12:00am August 21, 2023 1:09pm As directedFlash Glucose Sensor (Freestyle Neris 14 Day Sensor) kit (15 sources)Start: 08-21-2023 End: 55-35-2754Nbefr Glucose Sensor (Freestyle Neris 14 Day Sensor) kit Discontinued 0 .Route August 20, 2023 11:00pm August 21, 2023 12:09pm As directedStart: 08-21-2023 End: 84-34-3867Ybtar Glucose Sensor (Freestyle Neris 14 Day Sensor) kit Discontinued 0 .Route August 21, 2023 12:00am August 21, 2023 1:09pm As directedhydroCHLOROthiazide 12.5 mg / lisinopril 20 mg oral tablet (20 sources)Thiazide Diuretic, Angiotensin Converting Enzyme InhibitorStart: 06-30-2019 End: 39-19-1167hjme 1 tablet by mouth once dailyLisinopril-Hydrochlorothiazide 20-12.5 mg tablet Discontinued 1 TAB PO Daily June 30, 2019 12:00am November 04, 2019 1:14pmStart: 32-00-4776drlt 1 tablet by mouth twice dailylisinopril- hydrochlorothiazide (PRINZIDE,ZESTORETIC) 20-12.5 mg per tablet Take 1 tablet by mouth twice daily. 0 05/27/2018 ActiveComment on above:Take 1 tablet by mouth twice daily.Insulin Aspart U-100 100 unit/mL (3 mL) insulin pen (6 sources)Start: 08-21-2023 End: 61-42-5587Otbxebu Aspart U-100 100 unit/mL (3 mL) insulin pen Discontinued 0 UNITS SUBCUT 3x/Day before mealsApril 2023 1:02pm August 21, 2023 1:12pm 8, 12, or 15 units based on pt's blood glucose Please contact the information source for Protocol details.Start: 08-21-2023 End: 67-74-4867Erqubwr Aspart U-100 100 unit/mL (3 mL) insulin pen Discontinued 0 UNITS SUBCUT 3x/Day before mealsApril 2023 12:02pm August 21, 2023 12:12pm 8, 12, or 15 units based on pt's blood glucose Please contact the information source for Protocol details.Insulin Aspart U-100 100 unit/mL insulin pen (6 sources)Start: 01-31-2018 End: 10-40-6230Tssksdh Aspart U-100 100 unit/mL insulin pen Discontinued 0 UNITS SUBCUT 3x/Day before meals January 31, 2018 12:00am August 21, 2023 1:09pm 8, 12, or 15 units based on pt's blood glucose Please contact the information source for Protocol details.Start: 01-31-2018 End: 97-15-7668Wixgnyz Aspart U-100 100 unit/mL insulin pen Discontinued 0 UNITS SUBCUT 3x/Day before meals January 30, 2018 11:00pm August 21, 2023 12:09pm 8, 12, or 15 units based on pt's blood glucose Please contact the information source for Protocol details.insulin aspart, human 100 unt/ml injectable solution (20 sources)Insulin AnalogStart: 99-79-3269Mdkbx 100 units/mL injectable solution as directed, Refills(s) 0 Start Date: 05/22/24 Status: OrderedStart: 01-23-2024 End: 82-12-0578Xcjtc: 08-21-2023 End: 89-64-2557Pmhojun Aspart U-100 Discontinued 0 UNITS SUBCUT 3x/Day before meals August 21, 2023 1:02pm August 21, 2023 1:12pm 8, 12, or 15 units based on pt's blood glucoseStart: 48-75-1131Muekk 100 UNIT/ML solution inject as directed four times a day (EXPECT 100 UNITS PER DAY) 05/29/2023 ActiveStart: 10-05-2022 End: 59-66-3367Oijmhua Aspart (Niacinamide) (Fiasp U-100 Insulin) 100 unit/mL solution Discontinued 1 sliding scale dose SUBCUT Use as Directed January 22, 2024 12:00am January 23, 2024 9:26am for use with VGO40, expect up to 80 u per dayStart: 86-53-5319ttyoyb 10 [IU] by subcutaneous injection three times dailyNOVOLOG FLEXPEN U-100 INSULIN 100 unit/mL inpn INJECT 10 UNITS SUBCUTANEOUSLY THREE TIMES A DAY 4 03/06/2018 ActiveStart: 87-28-9275Dykutfh Aspart U-100 Active 0 UNITS SUBCUT 3x/Day before meals January 31, 2018 4:14pm 8, 12, or 15 units based on pt's blood glucoseStart: 01-31-2018 End: 61-45-2255Svbmqfk Aspart U-100 100 unit/mL (3 mL) insulin pen Discontinued 0 UNITS SUBCUT 3x/Day before mealsProtocol: *If the corrective scale dose has been administered within the past 4 hours, do not use corrective scale again unless approved by prescriber* Condition: Dose/Route: = Instructions: Condition: Fingerstick Blood Glucose Dose/Route: Insulin Units Condition: mg/dl Dose/Route: 1 unit Condition: mg/dl Dose/Route: 2 units Condition: mg/dl Dose/Route: 3 units Condition: mg/dl Dose/Route: 4 units Condition: mg/dl Dose/Route:5 units Condition: mg/dl Dose/Route: 6 units Condition: mg/dl Dose/Route: 7 units Condition: mg/dl Dose/Route: 8 units Condition: mg/dl Dose/Route: 9 units Condition: mg/dl Dose/Route: 10 units Dose/Route: 11 units Condition: Greater than or = 400 mg/dl Instructions: Call Provider Condition: CustomScale 1:___ Instructions: GIVE 1 UNIT OF ASPART FOR EVERY ___MG GLUCOSE Instructions: STARTING AT 150MG AT BG CHECKS August 21, 2023 1:02pm August 21, 2023 1:12pm 8, 12, or 15 units based on pt's blood glucose Please contact the information source for Protocol details.Start: 01-31-2018 End: 48-89-4199Cixjqeu Aspart U-100 Discontinued 0 UNITS SUBCUT 3x/Day before meals January 31, 2018 12:00am August 21, 2023 1:09pm 8, 12, or 15 units based on pt's blood glucoseStart: 28-39-4407Tolatzf Aspart U-100 Active 0 UNITS SUBCUT 3x/Day before meals January 30, 2018 11:00pm 8, 12, or15 units based on pt's blood glucoseStart: 29-36-7091Krpaklz Aspart U-100 Active 0 UNITS SUBCUT 3x/Day before meals January 31, 2018 12:00am 8, 12, or15 units based on pt's blood glucoseinject 2 [IU] by subcutaneous injection once daily at mealtime NovoLOG 100 UNIT/ML as directed Subcutaneous in vgo (up to 90 units/day) for 90 days for use in VGO40, ok to use aspart as substitution. changed to 1:25 mg Correction (2 u/click); ICR 2,4,5 clicks /sml meals. ActiveComment on above: INJECT 10 UNITS SUBCUTANEOUSLY THREE TIMES A DAY3 ml insulin glargine 100 unt/ml pen injector (20 sources)Insulin AnalogStart: 12-35-0749Bxtabron KwikPen 100 UNIT/ML pen inject 40 units subcutaneously once daily 01/10/2023 ActiveStart: 11-04-2019 End: 84-60-2091lvgqdx 30 [IU] by subcutaneous injection once dailyInsulin Glargine 100 unit/mL (3 mL) insulin pen Discontinued 30 UNIT SUBCUT Daily 0 November 04, 20191:14pm November 26, 2023 2:10pmStart: 06-30-2019 End: 92-30-3060lcjibc 25 [IU] by subcutaneous injection once dailyInsulin Glargine 100 unit/mL (3 mL) insulin pen Discontinued 25 UNITS SUBCUT Daily June 30, 2019 12:00am November 04, 2019 1:14pmStart: 51-97-7022JMURMHEJ KWIKPEN U-100 INSULIN 100 unit/mL (3 mL) inpn INJECT 40 UNITS SUBCUTANEOUSLY EVERY BEDTIME0 01/06/2019 Activeinject 25 [IU] by subcutaneous injection once daily, then inject 30 [IU] by subcutaneous injection once daily in the morningBasaglar KwikPen 100 UNIT/ML 25 units (may titrate up to 30 units per day) Subcutaneous am for 30 days for VGO FAILRE- expect up to 30 u daily. Should use if removes VGO and is unable to replace d/t VGO supply or insulin shortage. PATIENT SHOULD NOTIFY OFFICE ANDREA OF SUPPLY ISSUE ActiveComment on above:INJECT 40 UNITS SUBCUTANEOUSLY EVERY BEDTIMEInsulin Glargine 100 UNIT/ML (5 sources)Start: 95-72-6337Nzmncus Glargine 100 UNIT/ML 40 u Subcutaneous daily for 30 days for VGO failure. DO NOT DISPENSE GREATER THAN 30 days at a time Nov, Not-TakingStart: 89-56-6633Sxrddpd Glargine 100 UNIT/ML 40 u Subcutaneous daily for 30 days for VGO failure. DO NOT DISPENSE GREATER THAN 30 days at a time Nov, Activelisinopril 40 mg oral tablet (20 sources)Angiotensin Converting Enzyme InhibitorStart: 10-16-2023 End: 07-79-2456rxcc 2 tablets by mouth once dailylisinopril 20 MG tablet Indications: Primary hypertension (CMS/HCC) Take 2 tablets (40 mg) by mouthDaily 180 tablet 1 10/16/2023 01/30/2024 Discontinued (Therapy completed)Start: 88-80-5640prvg 2 tablets by mouth once daily in the morninglisinopril 20 MG tablet Take 40 mg by mouth in the morning. Total is 40mg, so 2 pills daily. 0 11/02/2022 ActiveStart: 01-24-2021 End: 95-69-7195ylxz 1 tablet by mouth once dailyStart: 11-04-2019 End: 99-77-7925jwcl 1 tablet by mouth once dailyLisinopril 20 mg Tablet Discontinued 20 MG PO Daily November 04, 2019 12:00am August 21, 2023 1 :11pmStart: 01-31-2018 End: 23-46-7240xabk 1 tablet by mouth once dailyLisinopril 40 mg tablet Discontinued 40 MG PO Daily January 31, 2018 12:00am June 30, 2019 1:41pm Comment on above:Take 40 mg by mouth every morning.Mounjaro 10 MG/0.5ML solution auto-injector (15 sources)Start: 01-23-2024 End: 53-43-2009Ojbuokcj 10 MG/0.5ML solution auto-injector Inject 10 mg as directed every 7 (seven) days 01/23/2024 10/28/2024 Discontinued (Therapy completed)Start: 92-56-8879Ecyqsevl 10 MG/0.5ML solution auto-injector Inject 10 mg as directed every 7 (seven) days 01/23/2024 ActiveMounjaro 7.5 MG/0.5ML solution pen-injector (4 sources)Start: 12-17-2023 End: 29-65-3475Egdhignb 7.5 MG/0.5ML solution pen-injector Inject 7.5 mg under the skin every 7 (seven) days 12/17/2023 01/30/2024 Discontinued (Therapy completed)Start: 08-34-9874Ixzbafdz 7.5 MG/0.5ML solution pen-injector Inject 7.5 mg under the skin every 7 (seven) days 12/17/2023 Activenaltrexone 380 mg injection (20 sources)Opioid AntagonistStart: 05-21-2018 End: 35-65-9373Pqzwuuxnmz Microspheres 380 mg suspension,extended rel recon Discontinued 380 MG IM Q28D June 12:00am November 02, 2019 10:59am Semaglutide (3 sources)Start: 08-21-2023 End: 86-93-4931cmtofx 2 mg by subcutaneous injection every weekSemaglutide (Ozempic) 2 mg/dose (8 mg/3 mL) pen injector Discontinued 2 MG SUBCUT every week August 21, 2023 12:00am November 26, 2023 2:11pmSemaglutide (Ozempic) 2 mg/dose (8 mg/3 mL) pen injector (12 sources)Start: 08-21-2023 End: 74-95-8106mplmka 2 mg by subcutaneous injection every weekSemaglutide (Ozempic) 2 mg/dose (8 mg/3 mL) pen injector Discontinued 2 MG SUBCUT every week August 20, 2023 11:00pm November 26, 2023 1:11pmStart: 08-21-2023 End: 61-29-5418ddbzrh 2 mg by subcutaneous injection every weekSemaglutide (Ozempic) 2 mg/dose (8 mg/3 mL) pen injector Discontinued 2 MG SUBCUT every week August 21, 2023 12:00am November 26, 2023 2:11pmStart: 42-12-0855rifpcs 2 mg by subcutaneous injection every weekSemaglutide (Ozempic) 2 mg/dose (8 mg/3 mL) pen injector Active 2 MG SUBCUT every week August 21, 2023 12:00amTirzepatide (14 sources)Start: 08-21-2023 End: 13-95-5068Kfaunslsyiy (Mounjaro) 2.5 mg/0.5 mL pen injector Discontinued 2.5 MG SUBCUT every week 2.5 August 20, 2023 11:00pm October 11, 2023 12:52pm Start: 08-21-2023 End: 84-11-9863Nrvyanjewtm (Mounjaro) 2.5 mg/0.5 mL pen injector Discontinued 2.5 MG SUBCUT every week 2.5 August 21, 2023 12:00am October 11, 2023 1:52pm Start: 62-91-0916Zctxzzvdnmn (Mounjaro) 2.5 mg/0.5 mL pen injector Active 2.5 MG SUBCUT every week 2.5 August 21, 2023 12:00amTirzepatide (14 sources)Start: 08-21-2023 End: 90-69-2236cjmvwf 2.5 mg by subcutaneous injection every weekTirzepatide (Mounjaro) 5 mg/0.5 mL pen injector Discontinued 5 MG SUBCUT every week 2.5 August 20, 2023 11:00pm October 11, 2023 12:51pm to start after 4 weeks 2.5 mg weekly if toleratedStart: 08-21-2023 End: 52-50-6009gryzis 2.5 mg by subcutaneous injection every weekTirzepatide (Mounjaro) 5 mg/0.5 mL pen injector Discontinued 5 MG SUBCUT every week 2.5 August 21, 2023 12:00am October 11, 2023 1:51pm to start after 4 weeks 2.5 mg weekly if toleratedStart: 07-80-2049wpfjnb 2.5 mg by subcutaneous injection every weekTirzepatide (Mounjaro) 5 mg/0.5 mL pen injector Active 5 MG SUBCUT every week 2.5 August 21, 2023 12:00am to start after 4 weeks 2.5 mg weekly if toleratedTirzepatide (20 sources)Start: 12-17-2023 End: 52-58-8609Oujrqrqdyxb (Mounjaro) 7.5 mg/0.5 mL pen injector Discontinued 7.5 MG SUBCUT every week 2 December 17, 2023 2:03pm January 22, 2024 3:25pm Start: 12-17-2023 End: 34-70-2969Bvothkqwkyh (Mounjaro) 7.5 mg/0.5 mL pen injector Discontinued 7.5 MG SUBCUT every week 2 December 17, 2023 1:03pm January 22, 2024 2:25pm Start: 47-20-1677Xnacsbqplxc (Mounjaro) 7.5 mg/0.5 mL pen injector Active 7.5 MG SUBCUT every week 2 December 17, 2023 2:03pmStart: 10-11-2023 End: 02-08-3155Zacjwoqazxx (Mounjaro) 7.5 mg/0.5 mL pen injector Discontinued 7.5 MG SUBCUT every week 2 October 11, 2023 12:52pm December 17, 2023 1:04pm Start: 10-11-2023 End: 24-97-8702Ukbgppajnxy (Mounjaro) 7.5 mg/0.5 mL pen injector Discontinued 7.5 MG SUBCUT every week 2 October 11, 2023 1:52pm December 17, 2023 2:04pmStart: 31-95-6337Shgcjmeuzrb (Mounjaro) 7.5 mg/0.5 mL pen injector Active 7.5 MG SUBCUT every week 2 October 1041:52pmStart: 10-11-2023 End: 23-87-9552Iwsqeuynpip (Mounjaro) 7.5 mg/0.5 mL pen injector Discontinued 7.5 MG SUBCUT every week October 10, 2023 11:00pm October 11, 2023 12:53pmStart: 10-11-2023 End: 83-79-3650Oylhrwhskhl (Mounjaro) 7.5 mg/0.5 mL pen injector Discontinued 7.5 MG SUBCUT every week October 11, 2023 12:00am October 11, 2023 1:53pm Tirzepatide (20 sources)Start: 06-19-2024 End: 53-80-8071Eawrntpgnym 10 mg/0.5 mL pen injector Discontinued 10 MG SUBCUT every week 6 June 19, 2024 5:13pm June 19, 2024 5:17pm OK to dispense 7.5 if 10 mg unavailable, then revert to 10 mg when availableStart: 06-19-2024 End: 74-94-6208Xktxcarhlpd 10 mg/0.5 mL pen injector Discontinued 10 MG SUBCUT every week 6 June 19, 2024 4:13pm June 19, 2024 4:17pm OK to dispense 7.5 if 10 mg unavailable, then revert to 10 mg when availableStart: 03-03-2024 End: 98-16-2810Gsadjlxtuum 10 mg/0.5 mL pen injector Discontinued 10 MG SUBCUT every week 6 March 03, 2024 6:18pm June 19, 2024 5:15pm OK to dispense 7.5 if 10 mg unavailable, then revert to 10 mg when availableStart: 03-03-2024 End: 72-62-1195Ngyizotglqo 10 mg/0.5 mL pen injector Discontinued 10 MG SUBCUT every week 6 March 03, 2024 5:18pm June 19, 2024 4:15pm OK to dispense 7.5 if 10 mg unavailable, then revert to 10 mg when availableStart: 60-44-1087Eneogppkkqe 10 mg/0.5 mL pen injector Active 10 MG SUBCUT every week March 03, 2024 5:18pm OK to dispense 7.5 if 10 mg unavailable, then revert to 10 mg when availableStart: 01-22-2024 End: 41-30-4920Gwcmwgvjhjn 10 mg/0.5 mL pen injector Discontinued 10 MG SUBCUT every week January 22, 2024 3:08pm March 03, 2024 6:18pm OK to dispense 7.5 if 10 mg unavailable, then revert to 10 mg when availableStart: 01-22-2024 End: 07-63-3119Mpdcezaqnol 10 mg/0.5 mL pen injector Discontinued 10 MG SUBCUT every week January 22, 2024 2:08pm March 03, 2024 5:18pm OK to dispense 7.5 if 10 mg unavailable, then revert to 10 mg when availableStart: 01-22-2024 Tirzepatide 10 mg/0.5 mL pen injector Active 10 MG SUBCUT every week January 22, 2024 2:08pm OK to dispense 7.5 if 10 mg unavailable, then revert to 10 mg when available Problems Active Problems Problem ClassificationProblemDateDocumented DateEpisodic/ChronicAbdominal pain (20 sources)Abdominal pain; Translations: [Unspecified abdominal pain]Onset: 28-51-3845QtdprvxpWvjczcdijzkswf/social admission (9 sources)Dietary counseling and surveillanceOnset: 04-11-2021 Resolved: 06-46-7539OapqjblxHbwnvgy disorders (20 sources)Anxiety; Translations: [Anxiety disorder, unspecified]Onset: 174798-05-1124GpetxjfVriydgnfd-nuxlnwo, conduct, and disruptive behavior disorders (20 sources)Attention deficit hyperactivity disorder; Translations: [Attention- deficit hyperactivity disorder, unspecified type]Onset: 922760-49-0043 ChronicAttention-deficit, conduct, and disruptive behavior disorders (20 sources)Attention-deficit hyperactivity disorder, unspecified type; Translations: [Attention deficit disorder with hyperactivity]Onset: 04-11-2021 Resolved: 93-02-3233JfulplfSvtcrzygi and vision defects (20 sources)Blindness AND/OR vision impairment level; Translations: [Unspecified visual loss]Onset: 764669-62-1651XvanuonPrechf of uterus (20 sources)Adenocarcinoma of endometrium; Translations: [Malignant neoplasm of endometrium]Onset: 793455-50-9396DrfscvtPkcbvpl dysrhythmias (19 sources)Tachycardia; Translations: [Tachycardia, unspecified]06-27-2019 EpisodicCataract (20 sources)Nuclear sclerotic cataract; Translations: [Age-related nuclear cataract, bilateral]Onset: 41-94-2000YsjvwpqLkosqopvuhkuu disorders (20 sources)Developmental academic disorder; Translations: [Developmental disorder of scholastic skills, 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 Diabetes mellitus with complications (20 sources)Diabetic ketoacidosis; Translations: [Type 2 diabetes mellitus with ketoacidosis without coma]Onset: 08-02-2016 Resolved: 58-86-8672UpkhinqRuttmgyh mellitus without complication (5 sources)Acute hyperglycemia; Translations: [Hyperglycemia, unspecified] 97-55-6264FfdprsicNsbktibb mellitus without complication (2 sources)Diabetes mellitus without complicationOnset: Diseases of white blood cells (19 sources)Leukocytosis; Translations: [Elevated white blood cell count, unspecified]87-68-7100QmduhxwVnmscefdq of lipid metabolism (20 sources)Hyperlipidemia; Translations: [Hyperlipidemia, unspecified]Onset: 04-11-2021 Resolved: 37-25-4296QuaxbvlWsmkrjnsk usually diagnosed in infancy, childhood, or adolescence (20 sources)Autism spectrum disorder; Translations: [Autistic disorder]Onset: 04-11-2021 Resolved: 97-82-5467SvnoftbGpzhfkwxesxvjv and diverticulitis (20 sources)Diverticular disease; Translations: [Diverticulosis of intestine, part unspecified, without perforation or abscess without bleeding]Onset: 04-02-2023 Resolved: 439763-46-8962YgeyytqSacptqrkwt disorders (20 sources)Gastroesophageal reflux disease; Translations: [Gastro-esophageal reflux disease without esophagitis]Onset: 195898-94-5608PmrozjzWfiqnaulh hypertension (20 sources)Hypertensive disorder; Translations: [Essential (primary) hypertension]Onset: 04-11-2021 Resolved: 59-84-6695WciiqvqOnxqr and electrolyte disorders (20 sources)Ketoacidosis; Translations: [Acidosis]25-93-5635RpubwqpvDqxifdz and fatigue (4 sources)Fatigue; Translations: [Other fatigue]97-72-0887SoepdnacFjivzvgapxjbt mental health disorders (17 sources)Eating disorder; Translations: [Eating disorder, unspecified]Chronic Mood disorders (20 sources)Depressive disorder; Translations: [Major depressive disorder, single episode, unspecified]Onset: 04-11-2021 Resolved: 42-41-9737WixdhqyFygfih and vomiting (20 sources)Nausea and vomiting; Translations: [Nausea with vomiting, unspecified]Onset: 04-11-2021 Resolved: 21-41-6653DqxihbhyYjupxjxcyqz deficiencies (20 sources)Vitamin D deficiency; Translations: [Vitamin D deficiency, unspecified]Onset: 04-11-2021 Resolved: 94-16-3582EwrwykwXqegt aftercare (20 sources)Long-term current use of insulin; Translations: [shelter (current) use of insulin]Onset: 10-15-2023 Resolved: 820752-38-5487WxeqjtgtIexti aftercare (9 sources)Encounter for therapeutic drug level monitoringOnset: 04-11-2021 Resolved: 34-39-4042TyjoarcnFktih aftercare (20 sources)character impersonator (current) use of insulin; Translations: [Long-term (current) use of insulin]Onset: 04-11-2021 Resolved: 95-11-1050XjtzusfsEuuxu aftercare (1 source)Other longterm (current) drug therapy; Translations: [OTH DAIRY NUTRITIONIST CURRENT DRUG THERAPY]Onset: 46-87-2690PivvxjmgFwmjl aftercare (1 source)character impersonator (current) use of oral hypoglycemic drugs; Translations: [DAIRY NUTRITIONIST USE ORAL HYPOGLYCEMIC DX]Onset: 24-10-2143SpyzwdkkLkbvu and unspecified benign neoplasm (1 source)Benign neoplasm of rectum; Translations: [Benign neoplasm of rectum] Onset: 57-00-0380AfvflvhsUzpgd and unspecified benign neoplasm (10 sources)Adenomatous polyp of rectum; Translations: [Benign neoplasm of rectum]Onset: 331701-27-3640DizvenbaYczzh endocrine disorders (8 sources)Hypercortisolism; 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, unspecified] 67-86-5327EpfqslqUhuqb endocrine disorders (1 source)Malik's syndrome, unspecified; 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] 41-52-0754PbacpqsXzhly eye disorders (4 sources)Vitreomacular adhesion of bilateral eyes; 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, bilateral]Onset: 534736-92-1448ZmklanhAaspu gastrointestinal disorders (7 sources)Constipation; Translations: [Constipation, unspecified]EpisodicOther gastrointestinal disorders (1 source)Constipation, unspecifiedEpisodicOther liver diseases (20 sources)Steatosis of liver; Translations: [Fatty (change of) liver, not elsewhere classified]Onset: 542378-06-9815OiekygrQptjs liver diseases (11 sources)Fatty (change of) liver, not elsewhere classified; Translations: [Other chronic nonalcoholic liver disease]01-59-8436QwhyjzhMznog lower respiratory disease (4 sources)Snoring; Translations: [Snoring]08-01-6530QlzxbbciMqmpj nutritional; endocrine; and metabolic disorders (20 sources)Obesity; Translations: [Obesity, unspecified]01-17-3894XxvsvnbIaiez nutritional; endocrine; and metabolic disorders (20 sources)Obese class II; Translations: [Body mass index (BMI) 35.0-35.9, adult]ChronicOther nutritional; endocrine; and metabolic disorders (20 sources)Body mass index 40+ - severely obese; Translations: [Body mass index (BMI) 40.0-44.9, adult]Onset: 10-15-2023 Resolved: 221247-50-2355MskjqhkPoxrf nutritional; endocrine; and metabolic disorders (20 sources)Body mass index (BMI) 40.0-44.9, adult; Translations: [Body Mass Index 40.0-44.9, adult]Onset: 04-11-2021 Resolved: 33-66-2610DdjhtnoZibwb nutritional; endocrine; and metabolic disorders (1 source)Morbid (severe) obesity due to excess calories; Translations: [MORBID SEVERE OBES D/T EXCESS YULIYA]Onset: 06-62-8032UxoukdxUafoy nutritional; endocrine; and metabolic disorders (20 sources)Severe obesity; Translations: [Morbid (severe) obesity due to excess calories]Onset: 587230-10-7658ViacjmuFccqs nutritional; endocrine; and metabolic disorders (20 sources)Obesity caused by energy imbalance; Translations: [Morbid (severe) obesity due to excess calories]Onset: 04-02-2023 Resolved: 816375-88-2381BtqcbfxFcoew nutritional; endocrine; and metabolic disorders (2 sources)Obese class BTZ34-11-7974XpczfsmZhvxs nutritional; endocrine; and metabolic disorders (4 sources)Insulin resistance; Translations: [Insulin resistance]08-12-2024 ChronicOther nutritional; endocrine; and metabolic disorders (5 sources)Morbid obesity; Translations: [Morbid (severe) obesity due to excess calories]Onset: 035384-59-8543UnoziwkNyhpb nutritional; endocrine; and metabolic disorders (5 sources)Weight gain; Translations: [Abnormal weight gain]35-52-6212Qfxxiuug Other nutritional; endocrine; and metabolic disorders (11 sources)Abnormal weight gain; Translations: [Abnormal weight gain]08-21-2023 EpisodicOther nutritional; endocrine; and metabolic disorders (13 sources)Weight increased; Translations: [Abnormal weight gain]08-21-2023 EpisodicOther skin disorders (2 sources)Corns and callositiesOnset: 09-27-2021 Resolved: 43-30-2825FvskdnnxPhmbw upper respiratory disease (20 sources)Allergic disposition; Translations: [Other allergic rhinitis]Onset: 881022-77-7947BudiydhUytnisut codes; unclassified (20 sources)Noncompliance with medication regimen; Translations: [Patient's other noncompliance with medicationregimen]89-26-7108XgatswurOkxesyp detachments; defects; vascular occlusion; and retinopathy (20 sources)Bilateral retinopathy; Translations: [Unspecified background retinopathy]Onset: 10-15-2023 Resolved: 766220-53-6332HmwpulpDasnlwhqz and history of mental health and substance abuse codes (1 source)Personal history of nicotine dependence; Translations: [PERSONAL HISTORY OF NICOTINE DEPEND]Onset: 14-20-3301DzxyxuvvNhozdzejr-related disorders (20 sources)Opioid withdrawal; Translations: [Opioid dependence with withdrawal] Onset: 946521-28-0262PjexidgTfvimuaagtbs (1 source)Blood glucose normal; Translations: [Normal blood glucose level] Unclassified (6 sources)Patient encounter wivpeg79-22-9714 Past or Other Problems Problem ClassificationProblemDateDocumented DateEpisodic/ChronicDiabetes mellitus without complication (20 sources)Diabetes mellitus without complication; Translations: [Type 2 diabetes mellitus without complications]Onset: 08-08-2022 Resolved: 469280-62-9048IwbvpqbErfprdrdziyqo symptoms and ill-defined conditions (20 sources)Abnormal urinalysis; Translations: [Unspecified abnormal findings in urine]Onset: 590412-83-1174RsrwwvqoDliq disorders (20 sources)Mood disordersOnset: 06-07-2023 Resolved: 358104-21-9957Yrdoxqklhvb deficiencies (20 sources)Deficiency of other specified B group vitamins; Translations: [Vitamin deficiency]Onset: 04-11-2021 Resolved: 32-95-6999XqirmoemBvyby and unspecified benign neoplasm (12 sources)Polyp of colon; Translations: [Polyp of colon]Onset: 06-05-2024 24-80-9208SwpqousaXrhrc screening for suspected conditions (not mental disorders or infectious disease) (20 sources)Patient encounter status; Translations: [Encounter for screening mammogram for malignant neoplasm of breast]Onset: 145549-73-4975Grpzwpip Results Test NameValueInterpretationReference RangeFacilityFUNDUS PHOTOS OU (BOTH EYES) on 43-59-5520Azaqfptit ClinicNo Panel Informationon 47-28-9783Rfbzinwvt Study observation (narrative)[facility] HospitalOCT MACULA CIRRUS [facility]U (BOTH EYES)on 60-69-6918Kydringrn NupeqsGpX1u HPLC (Bld) [Mass fraction]Ordered By: Glenna Quinones on 97-35-1093MoX3j (Bld) [Mass fraction]9.2 %[facility] HospitalNo Panel InformationOrdered By: Glenna Quinones on 46-87-8642Ctwdmng Wbfhenp861XhpoizkokMary Rutan HospitalTBH UA (CLEAN/CATCH) MICROSCOPIC IF INDICATEon 15-44-0073SQFXFOOWJ URINENegativeNEGATIVENOMS HealthcareBLOOD URINE NegativeNEGATIVENOMS HealthcareClarity (U)CLEARCLEARNOMS HealthcareColor (U)LT. YELLOWYELLOWNOMS HealthcareGLUCOSE URINE UA100 mg/dLAbnormalNEGATIVENOMS HealthcareInterpretation and review of laboratory resultsAbnormalNOMS Healthcare Ketones Ql (U)NegativeNEGATIVE mg/dLNOMS HealthcareLeukocyte esterase Test strip Ql (U)NegativeNEGATIVENOMS HealthcareNITRITE URINENegativeNEGATIVENOMS HealthcarepH (U)6.0 [pH]5.0 - 9.0NOMS HealthcarePROTEIN URINENegativeNEG/TRACE mg/dLNOMS HealthcareSPECIFIC GRAVITY URINE1.0251.005 - 1.025NOMS HealthcareURINE MICROSCOPIC INDICATEDNONOMS HealthcareUROBILINOGEN URINE0.2 EU/dL0.2 - 1.0 EU/dLNOMS HealthcareCLINISYNCNOMS HealthcareUrine Cultureon 76-45-9260Ulaptfcq identified Cx Nom (U)75,000 colonies/ml mixed bacterial skin contaminants 2 Days PERFORMED BY: [facility] [address] [place] [address] PATHOLOGIST BEEF SELECTOR DAMASO ROSALES M.D.NormalThe Unc Health Physician GroupComment on above: Performed By: #### CUU #### [facility] [address] [place] [address] USAUrine cultureOrdered By: Sonya Mejia on 10-30-2024 Bacteria identified Cx Nom (U)2 DaysMary Rutan HospitalALL CBC WITH AUTO DIFFon 99-29-9182DJNLZXYZM ABSOLUTE AUTO0.1NOMS Healthcare Basophils/100 WBC (Bld)0.7 %0.2 - 2.0 %NOMS HealthcareEosinophils/100 WBC (Bld) 0.7 %Low0.9 - 7.0 %NOMS HealthcareErythrocyte distribution width (RBC) [Ratio] 13.3 %11.0 - 15.0 %NOMS HealthcareHematocrit (Bld) [Volume fraction]41.4 %36.0 - 48.0 %NOMS HealthcareHemoglobin (Bld) [Mass/Vol]14.1 g/dL12.0 - 16.0 g/dLNOVT HealthcareIMMATURE GRANULOCYTES ABS AUTO0.03NOVT HealthcareImmature granulocytes/100 WBC (Bld)0.3 %0.0 - 0.5 %NOMS HealthcareInterpretation and review of laboratory resultsAbnormalNOVT HealthcareLYMPHOCYTES ABSOLUTE AUTO3.5 NOMS HealthcareLymphocytes/100 WBC (Bld)36.6 %20.5 - 60.0 %NOMS HealthcareMCH (RBC) [Entitic mass]29.1 pg26.7 - 34.0 pgNOVT HealthcareMCHC (RBC) [Mass/Vol] 34.1 g/dL29.9 - 35.2 g/dLNOVT HealthcareMCV (RBC) [Entitic vol]85.4 fL81.0 - 99.0 fLNOVT HealthcareMONOCYTES ABSOLUTE AUTO0.7NOMS HealthcareMonocytes/100 WBC (Bld)6.9 %1.7 - 12.0 %[facility] HealthcareNEUTROPHILS ABSOLUTE AUTO5.2N[facility] Healthcare Neutrophils/100 WBC (Bld)54.8 %43.0 - 75.0 %NOMS HealthcarePlatelet mean volume (Bld) [Entitic vol]9.8 fL9.5 - 13.[address] [facility] Medical CenterTBH EO #0.1N[facility] Healthcare TBH DRE247MNBA [facility] Medical CenterTB RBC4.85NOMS [facility] Medical CenterTBH WBC9.5NOMS Healthcare CLINISYNCNOVT HealthcareLaboratory - Chemistry and Chemistry - challengeon 63-24-6712Ysgarki [Mass/Vol]3.2 g/dLMary Rutan HospitalALP [Catalytic activity/Vol]108 U/[facility] HospitalALT [Catalytic activity/Vol]27 U/[facility] HospitalAST [Catalytic activity/Vol] 14 U/[facility] HospitalBilirubin [Mass/Vol]0.4 mg/dLMary Rutan HospitalCalcium [Mass/Vol]9.4 mg/dLMary Rutan HospitalChloride [Moles/Vol]104 mmol/[facility]. [facility] HospitalCO2 [Moles/Vol]27.7 mmol/[facility]. [facility] HospitalCreatinine [Mass/Vol]0.59 mg/dLMary Rutan HospitalGlucose [Mass/Vol]185 mg/dLMary Rutan HospitalPotassium [Moles/Vol]3.8 mmol/[facility]. Vincent HospitalProtein [Mass/Vol]7.1 g/dLDoctors Hospitalodium [Moles/Vol]139 mmol/LFMcCullough-Hyde Memorial HospitalUrea nitrogen [Mass/Vol]12 mg/dLMary Rutan HospitalLaboratory - Chemistry and Chemistry - challengeOrdered By: Glenna Quinones on 90-09-7283Dqjhrxahhjf [Mass/Vol]156 mg/dL [facility] HospitalCholesterol in HDL [Mass/Vol]47 mg/dLMary Rutan HospitalCholesterol in LDL [Mass/Vol]85 mg/dLMary Rutan HospitalCholesterol.total/Cholesterol in HDL [Mass ratio]3.3 {ratio} [facility] HospitalTriglyceride [Mass/Vol]122 mg/dLMary Rutan HospitalNo Panel Informationon 63-47-1313Thurhlmov GFR (Non- > 60 mL/minMary Rutan HospitalNo Panel Information Ordered By: Glenna Quinones on 85-23-0210PKBT Dmhwmnnfulj71.4 mg/dLMary Rutan HospitalAdrenocorticotropic Htkjulq90.8[facility] HospitalUrinalysis macro (dipstick) panel (U)on 36-42-5616Iufyltyfs, UATrace Negative - 4(70) +++ mg/dLNOMS HealthcareComment on above:smallBlood, UAPositive Negative - 50 Jay Jay/mcLNOMS HealthcareComment on above:traceClarity, UATurbidNOMS HealthcareColor, UAYellowNOMS HealthcareGlucose, UANegativeNegative - 2000(110) ++++ mg/dLNOMS HealthcareInterpretation and review of laboratory resultsAbnormal NOMS HealthcareKetones, UAPositiveNegative - 160(16) ++++ mg/dLNOMS Healthcare Comment on above:40Leukocytes, UANegativeNegative - 500+++ Nadege/mcLNOMS HealthcareNitrite, UANegativeNegative - PositiveNOMS HealthcarepH, UA5.55 - 9 NOMS HealthcareProtein, UATraceNegative - 2000(20) ++++ mg/dLNOMS Healthcare Comment on above:30Spec Grav, UA1.031 - 1.03NOMS HealthcareUrobilinogen, UA0.2 0.2 - 12 mg/dLNOMS HealthcareNOMS HealthcareAlanine aminotransferase [Enzymatic activity/volume] in Serum or PlasmaOrdered By: Anila Lovell on 38-19-8836BDT [Catalytic activity/Vol]Alanine aminotransferase [Enzymatic activity/volume] in Serum or PlasmaMary Rutan HospitalALT [Catalytic activity/Vol] 31 U/LNormalMary Rutan HospitalComment on above:Performed By: #### LIPASE, BMP, HEPATIC, CBC #### [facility] [address] [place] [address] USAAlbumin [Mass/volume] in Serum or Plasma by Bromocresol green (BCG) dye binding methoOrdered By: Anila Lovell on 73-66-2183Hsxxywp BCG dye [Mass/Vol]Albumin [Mass/volume] in Serum or Plasma by Bromocresol green (BCG) dye binding metho3.5-5.7FMcCullough-Hyde Memorial HospitalAlbumin BCG dye [Mass/Vol]4.3 g/dL3.5-5.7FMcCullough-Hyde Memorial HospitalAlkaline phosphatase [Enzymatic activity/volume] in Serum or PlasmaOrdered By: Anila Lovell on 54-06-2968KJD [Catalytic activity/Vol]Alkaline phosphatase [Enzymatic activity/volume] in Serum or WjkksvZjml11-296DswlfnfenMary Rutan Hospital ALP [Catalytic activity/Vol]111 U/AEqvd94-510Vyayniut[address] Comment on above:Performed By: #### LIPASE, BMP, HEPATIC, CBC #### [facility] [address] [place] [address] USAAppearance of UrineOrdered By: MISSY TRONCOSO on 08-07-2024 Appearance (U)Urine appearanceCleUC Medical CenterAppearance (U)ClearNormalClearMary Rutan HospitalComment on above:Order Comment: Name Collection Type:: Clean-Voided MidstreamPerformed By: #### UHCG, UA #### [facility] [address] [place] [id number] USAAspartate aminotransferase [Enzymatic activity/volume] in Serum or PlasmaOrdered By: Anila Lovell on 57-05-0767KNJ [Catalytic activity/Vol] Aspartate aminotransferase [Enzymatic activity/volume] in Serum or Ltsjhf46-03 [facility] HospitalAST [Catalytic activity/Vol]24 U/KOxoguf01-49 [facility] HospitalComment on above:Performed By: #### LIPASE, BMP, HEPATIC, CBC #### [facility] [address] [place] [id number] USABasic Metabolic Panelon 27-90-7060Zdqaxymamo Clr Calc Qpztykto709.[address] [place] [address] Physician GroupComment on above:Performed By: #### LIPASE, BMP, HEPATIC, CBC #### [facility] [address] [place] [address] USAGFR/1.73 sq M.predicted MDRD (S/P/Bld) [Vol rate/Area] mL/min/{1.73_m2}NormalThe Unc Health Physician GroupComment on above:Performed By: #### LIPASE, BMP, HEPATIC, CBC #### [facility] [address] [place] [address] USABasophils Auto (Bld) [#/Vol]Ordered By: Anila Lovell on 92-07-6450Uszanzgye (Bld) [#/Vol]Automated basophil count0.0-0.2FMcCullough-Hyde Memorial HospitalBasophils [#/volume] in Blood by Automated countOrdered By: Anila Lovell on 92-72-9571Mvksznxkz (Bld) [#/Vol]0.1 10*3/uLNormal0.0-0.2 [facility] HospitalComment on above:Result Comment: PERFORMED BY: [place] [address] PATHOLOGIST BEEF SELECTOR ABRAM HERMAN M.D.Performed By: #### LIPASE, BMP, HEPATIC, CBC #### [facility] [address] [place] [id number] USABasophils/100 WBC Auto (Bld)Ordered By: Anila Lovell on 87-67-1060Tjfpwuezv/100 WBC (Bld)Automated basophil %.[facility] HospitalBasophils/100 leukocytes in Blood by Automated countOrdered By: Anila Lovell on 51-96-3755Xlhmahnez/100 WBC (Bld)1.0 %Normal.[facility] HospitalComment on above:Performed By: #### LIPASE, BMP, HEPATIC, CBC #### [facility] [address] [place] [address] USABilirubin Test strip Ql (U)Ordered By: MISSY TRONCOSO on 43-56-7430Dwzapxsxk Ql (U)Bilirubin.total [Presence] in Urine by Test strip NegativeMary Rutan HospitalBilirubin Ql (U)NegativeNegative [facility] HospitalBilirubin.direct [Mass/volume] in Serum or PlasmaOrdered By: Anila Lovell on 72-48-6033Vtdckltyi.direct [Mass/Vol] Bilirubin.direct [Mass/volume] in Serum or Plasma0.03-0.18FMcCullough-Hyde Memorial HospitalBilirubin.direct [Mass/Vol]0.10 mg/dL0.03-0.18FMcCullough-Hyde Memorial HospitalBilirubin.total [Mass/volume] in Serum or PlasmaOrdered By: Anila Lovell on 65-10-0718Pifoddrbe [Mass/Vol]Bilirubin.total [Mass/volume] in Serum or Plasma0.3-1.0Mary [facility] HospitalBilirubin [Mass/Vol]0.5 mg/dL Normal0.3-1.0[facility] HospitalComment on above:Performed By: #### LIPASE, BMP, HEPATIC, CBC #### [facility] [address] [place] [id number] USACalcium [Mass/volume] in Serum or PlasmaOrdered By: Anila Lovell on 16-52-7731Cgkfqeg [Mass/Vol]Calcium [Mass/volume] in Serum or Plasma 8.6-10.3FMcCullough-Hyde Memorial HospitalCalcium [Mass/Vol]9.7 mg/dLNormal 8.6-10.3FMcCullough-Hyde Memorial HospitalComment on above:Performed By: #### LIPASE, BMP, HEPATIC, CBC #### [facility] [address] [place] [id number] USACapillary blood glucose measurement by glucometer (mass/volume)Ordered By: MISSY TRONCOSO on 58-41-9033Fmntgxv [Mass/Vol]321 mg/dL NormalMary Rutan HospitalComment on above:Random Glucose Reference Range is dependent on time and content of last meal. Glucose of more than 200 mg/dL in a nonstressed, ambulatory subject supports the diagnosis of Diabetes Mellitus.Result Comment: Random Glucose Reference Range is dependent on time and content of last meal. Glucose of more than 200 mg/dL in a nonstressed, ambulatory subject supports the diagnosis of Diabetes Mellitus.Performed By: #### GLULS #### Point of Care testing ,Carbon dioxide, total [Moles/volume] in Serum or PlasmaOrdered By: Anila Lovell on 07-79-0326YE8 [Moles/Vol]Carbon dioxide, total [Moles/volume] in Serum or Eavqgk96.0-31.0[facility] HospitalCO2 [Moles/Vol]22.6 mmol/LNormal 21.0-31.0[facility] HospitalComment on above:Performed By: #### LIPASE, BMP, HEPATIC, CBC #### [facility] [address] [place] [address] USAChloride [Moles/volume] in Serum or PlasmaOrdered By: Anila Lovell on 76-29-2836Bwfzodtw [Moles/Vol]Chloride [Moles/volume] in Serum or Mqtqqx04-309Tkzze[address] [place], [place] [address]Chloride [Moles/Vol]105 mmol/L Czruuv00-130Xkngvechj[address] [place], [place] [address]Comment on above:Performed By: #### LIPASE, BMP, HEPATIC, CBC #### [facility] [address] [place] [id number] USAColor Auto (U)Ordered By: PROVIDER TEMP on 62-78-2346Dvyjh (U)Color of Urine by AutoYellowMary Rutan HospitalColor of Urine by AutoOrdered By: PROVIDER TEMP on 19-35-3471Waefo (U)Light-yellowNormalYellow [facility] HospitalComment on above:Order Comment: Name Collection Type:: Clean-Voided MidstreamPerformed By: #### UHCG, UA #### [place] [id number] USAComplete Blood Count Auto Diffon 49-24-1104Kjyu Corpuscular HGB Conc34.0 g/eJNwgmtp06.0-35.0The Unc Health Physician GroupComment on above:Performed By: #### LIPASE, BMP, HEPATIC, CBC #### [facility] [address] [place] [address] USAMonocytes/100 WBC (Bld)21.24 %High0.00-20.00The Unc Health Physician GroupComment on above:Result Comment: For adults in ED, MDW > 20.0 may be associated with a higher risk of sepsis during the first 12 hrs of hospital admissionPerformed By: #### LIPASE, BMP, HEPATIC, CBC #### [facility] [address] [place] [address] USANRBC%0.1 /100{WBC}Normal0-0.5The [facility] Comment on above:Performed By: #### LIPASE, BMP, HEPATIC, CBC #### [facility] [address] [place] [address] USACreatinine [Mass/volume] in Serum or PlasmaOrdered By: Anila Lovell on 25-63-7000Yechanfess [Mass/Vol]Creatinine [Mass/volume] in Serum or Plasma0.60-1.20[facility] HospitalCreatinine [Mass/Vol]0.61 mg/dLNormal0.60-1.20[facility] HospitalComment on above:Performed By: #### LIPASE, BMP, HEPATIC, CBC #### [facility] [address] [place] [address] USAECG 12 lead ECGon 17-96-2351HCW 12 lead ECGTRIHE[facility] [address] [place] [address] [place] [address] Electrocardiograph Report Signed Patient: Tasha Paul MR#: [id number] : 1975 Acct:[id number] Age/Sex: 49 / F ADM Date: 08/07/24 Loc: ER Room: Type: [facility] ER Attending Dr: Ordering Provider: Anila Lovell MD Date of Service: 08/07/24 ECG/ECG 12 lead ECG: Recheck/Abnormal Lab/Rx Copies to: Test Reason : Blood Pressure : 188/97 mmHG Vent. Rate : 127 BPM Atrial Rate : 127 BPM P-R Int : 146 ms QRS Dur : 62 ms QT Int : 300 ms P-R-T Axes : 45 21 51 degrees QTcB Int : 436 ms Sinus tachycardia Low voltage QRS Cannot rule out Anteroseptal infarct (cited on or before 02-Nov-2019) Abnormal ECG When compared with ECG of 04-Nov-2019 10:01, Criteria for Inferior infarct are no longer present Confirmed by ANILA LOVELL MD ([id number]) on 08/08/2024 1:49:47 AM Referred By: Electronically Signed By: ANILA LOVELL MD Transcribed By: MUS Signed By Anila Lovell MD 08/08/24 0149NoNovant Health Physician GroupEosinophils Auto (Bld) [#/Vol]Ordered By: Anila Lovell on 23-60-1206Jyrhszuqdkn (Bld) [#/Vol]Automated eosinophil count 0.0-0.45Mary Rutan HospitalEosinophils [#/volume] in Blood by Automated countOrdered By: Anila Lovell on 71-93-6172Rcyieptyqjp (Bld) [#/Vol]0.0 10*3/uLNormal0.0-0.45Mary Rut[facility] HospitalComment on above:Performed By: #### LIPASE, BMP, HEPATIC, CBC #### [place] [address] USAEosinophils/100 WBC Auto (Bld)Ordered By: Anila Lovell on 29-23-5497Pqwapwcqutz/100 WBC (Bld)Automated eosinophil %.[facility]an HospitalEosinophils/100 leukocytes in Blood by Automated countOrdered By: Anila Lovell on 25-50-0116Ufysdbbfsmg/100 WBC (Bld)0.1 %Normal.[facility] Rutan HospitalComment on above:Performed By: #### LIPASE, BMP, HEPATIC, CBC #### [place] [address] USAErythrocyte distribution width Auto (RBC) [Ratio]Ordered By: Anila Lovell on 22-92-5068Kajgkpmmcaw distribution width (RBC) [Ratio] Erythrocyte distribution width [Ratio] by Automated count11.9-15.3FMcCullough-Hyde Memorial HospitalErythrocyte distribution width [Ratio] by Automated count Ordered By: Anila Lovell on 77-17-3060Qiuoxyrktzo distribution width (RBC) [Ratio] 14.1 %Yeezso33.9-15.3FMcCullough-Hyde Memorial HospitalComment on above:Performed By: #### LIPASE, BMP, HEPATIC, CBC #### [facility] [address] [place], [place] [address] USAErythrocytes [#/volume] in Blood by Automated countOrdered By: Anila Lovell on 14-31-1876KIT (Bld) [#/Vol]5.38 10*6/uLHigh3.60-5.00Mary Rut[facility] HospitalComment on above:Performed By: #### LIPASE, BMP, HEPATIC, CBC #### [address] [place] [address] USAGlobulin Calc (S) [Mass/Vol]Ordered By: Anila Lovell on 01-21-3239Fphikaec (S) [Mass/Vol]Serum globulin measurement by calculation (mass/volume)[facility] Rutan HospitalGlucose Glucometer (BldC) [Mass/Vol]Ordered By: MISSY TRONCOSO on 66-99-5743Qjdtniz [Mass/Vol]Capillary blood glucose measurement by glucometer (mass/volume)[facility] Rut[facility] HospitalComment on above:Random Glucose Reference Range is dependent on time and content of last meal. Glucose of more than 200 mg/dL in a nonstressed, ambulatory subject supports the diagnosis of Diabetes Mellitus.Glucose Poct Glucometerson 02-47-8179Dbibgrq9XobmmeQhs Firelands Physician GroupComment on above:Result Comment: Glu2: WILL NOTIFY DR/SARAHerformed By: #### GLULS #### Point of Care testing ,Dlkznrz1Jzagklz MeterCoral Gables Hospital Physician GroupComment on above:Result Comment: PERFORMED BY: [place] [address] PATHOLOGIST BEEF SELECTOR ABRAM HERMAN M.D.Performed By: #### GLULS #### Point of Care testing ,Glucose [Mass/volume] in Serum or PlasmaOrdered By: Anila Lovell on 08-07-2024 Glucose [Mass/Vol]Glucose [Mass/volume] in Serum or LngsxcJkam76-404Zvvoliybb54 Olsen StreetComment on above:ADA recommended reference rangeRandom Glucose Reference Range is dependent on time and content of last meal. Glucose of more than 200 mg/dL in a nonstressed, ambulatory subject supports the diagnosisof Diabetes Mellitus.Glucose [Mass/Vol]339 mg/pGVxxt02-102WbgjmstpcMary Rutan HospitalComment on above:ADA recommended reference rangeRandom Glucose Reference Range is dependent on time and content of last meal. Glucose of more than 200 mg/dL in a nonstressed, ambulatory subject supports the diagnosisof Diabetes Mellitus.Result Comment: Random Glucose Reference Range is dependent on time and content of last meal. Glucose of more than 200 mg/dL in a nonstressed, ambulatory subject supports the diagnosis of Diabetes Mellitus. ADA recommended reference rangePerformed By: #### LIPASE, BMP, HEPATIC, CBC #### [facility] [address] [place] [address] USAGlucose [Mass/volume] in Urine by Test stripOrdered By: PROVIDER TEMP on 52-63-5759Wptcckz Test strip (U) [Mass/Vol]Glucose [Mass/volume] in Urine by Test stripCherrington Hospital Glucose Test strip (U) [Mass/Vol]>=1000 mg/dLHighNoAkron Children's HospitalHCG ( test) IA.rapid Ql (U)Ordered By: PROVIDER TEMP on 72-99-5881RUV ( test) Ql (U)Urine human chorionic gonadotropin (hCG) detection by immunoassayMary Rutan HospitalHCG ( test) Ql (U)NegativeMary Rutan HospitalHCG,Urineon 16-40-3672Avyh HCG ( test) Ql (U)NegativeNoNovant Health Physician GroupComment on above:Order Comment: Name Collection Type:: Clean-Voided MidstreamResult Comment: PERFORMED BY: [place] [address] PATHOLOGIST BEEF SELECTOR ABRAM HERMAN M.D.Performed By: #### UHCG, UA #### [facility] [address] [place] [address] USAHematocrit Auto (Bld) [Volume fraction]Ordered By: Anila Lovell on 38-65-5687Snuxmfbovj (Bld) [Volume fraction]Hematocrit [Volume Fraction] of Blood by Automated count34.0-46.4FMcCullough-Hyde Memorial Hospital Hematocrit [Volume Fraction] of Blood by Automated countOrdered By: Anila Lovell on 73-08-2673Gaoadzwiuz (Bld) [Volume fraction]45.2 %Mireud26.0-46.4FMcCullough-Hyde Memorial HospitalComment on above:Performed By: #### LIPASE, BMP, HEPATIC, CBC #### [facility] [address] [place] [address] USAHemoglobin Test strip Ql (U)Ordered By: PROVIDER TEMP on 11-20-2594Eefzgvukpx Ql (U)Hemoglobin [Presence] in Urine by Test stripNegative [facility] HospitalHemoglobin Ql (U)NegativeNegativeMary Rutan HospitalHemoglobin [Mass/volume] in BloodOrdered By: Anila Lovell on 77-42-3735Wkkoxylylw (Bld) [Mass/Vol]Hemoglobin [Mass/volume] in Blood 11.8-15.4FMcCullough-Hyde Memorial HospitalHemoglobin (Bld) [Mass/Vol]15.4 g/dL Rojnlp58.8-15.4FMcCullough-Hyde Memorial HospitalComment on above:Performed By: #### LIPASE, BMP, HEPATIC, CBC #### [facility] [address] [place] [address] USAHepatic Panelon 71-77-7146Gpdhqos [Mass/Vol]4.3 g/dLNormal 3.5-5.7The Unc Health Physician GroupComment on above:Performed By: #### LIPASE, BMP, HEPATIC, CBC #### [facility] [address] [place] [address] USABilirubin,Indirect0.4 mg/dLNormalThe Veterans Affairs Pittsburgh Healthcare SystemComment on above:Performed By: #### LIPASE, BMP, HEPATIC, CBC #### [facility] [address] [place] [address] USABilirubin.indirect [Mass/Vol]0.10 mg/dLNormal0.03-0.18The [facility] Physician [facility] HospitalComment on above:Performed By: #### LIPASE, BMP, HEPATIC, CBC #### [facility] [address] [place] [address] USAKetones Test strip Ql (U)Ordered By: PROVIDER TEMP on 45-01-4608Stcoobz Ql (U)Ketones [Presence] in Urine by Test stripHighNegative [facility] HospitalKetones [Presence] in Urine by Test strip Ordered By: PROVIDER TEMP on 32-49-9958Cbhfmhi Ql (U)2+HighNegMercy Health Anderson HospitalComment on above:Order Comment: Name Collection Type:: Clean-Voided MidstreamPerformed By: #### UHCG, UA #### [facility] [address] [place] [id number] USALeukocyte esterase [Presence] in Urine by Test strip Ordered By: MISSY TRONCOSO on 58-06-6974Otertrjxn esterase Test strip Ql (U) Leukocyte esterase [Presence] in Urine by Test stripNegativeMary Rutan HospitalLeukocyte esterase Test strip Ql (U)NegativeNormalNegative [facility] HospitalComment on above:Order Comment: Name Collection Type:: Clean-Voided MidstreamPerformed By: #### UHCG, UA #### [facility] [address] [place] [id number] USALeukocytes [#/volume] corrected for nucleated erythrocytes in Blood by Automated counOrdered By: Anila Lovell on 90-79-5404LGB corrected for nucl RBC Auto (Bld) [#/Vol]Leukocytes [#/volume] corrected for nucleated erythrocytes in Blood by Automated coun3.8-11.[address] [place] [address] WBC corrected for nucl RBC Auto (Bld) [#/Vol]11.0 10*3/uL3.8-11.6FMcCullough-Hyde Memorial HospitalLeukocytes [#/volume] in Blood by Automated countOrdered By: Anila Lovell on 17-72-8722CZU (Bld) [#/Vol]11.0 10*3/uLNormal3.8-11.6FMcCullough-Hyde Memorial HospitalComment on above:Performed By: #### LIPASE, BMP, HEPATIC, CBC #### [place] [id number] USALipase [Enzymatic activity/volume] in Serum or Plasma Ordered By: Anila Lovell on 79-95-3308Kfzfyg [Catalytic activity/Vol]Lipase [Enzymatic activity/volume] in Serum or CpzbxdDnz02.0-82.0Mary Rutan HospitalLipase [Catalytic activity/Vol]8.0 U/LLow11.0-82.0Mary Rutan HospitalComment on above:Result Comment: PERFORMED BY: [place] [address] PATHOLOGIST BEEF SELECTOR ABRAM HERMAN M.D.Performed By: #### LIPASE, BMP, HEPATIC, CBC #### [place] [id number] USALymphocytes Auto (Bld) [#/Vol]Ordered By: Anila Lovell on 66-19-1979Erkwzvhzuvp (Bld) [#/Vol]Lymphocytes [#/volume] in Blood by Automated count1.00-4.8Mary Rutan HospitalLymphocytes [#/volume] in Blood by Automated countOrdered By: Anila Lovell on 91-75-6512Vcopefpwvmc (Bld) [#/Vol]1.4 10*3/uLNormal1.00-4.8Mary Rutan HospitalComment on above: Performed By: #### LIPASE, BMP, HEPATIC, CBC #### [facility] [address] [place] [address] USALymphocytes/100 WBC Auto (Bld)Ordered By: Anila Lovell on 76-31-3442Nmvjtcawdev/100 WBC (Bld)Lymphocytes/100 leukocytes in Blood by Automated count.[facility] Rutan HospitalLymphocytes/100 leukocytes in Blood by Automated countOrdered By: Anila Lovell on 85-70-8075Yyvntuaxxda/100 WBC (Bld)12.6 %Normal.Mary Rutan HospitalComment on above:Performed By: #### LIPASE, BMP, HEPATIC, CBC #### [facility] [address] Auto (RBC) [Entitic mass]Ordered By: Anila Lovell on 51-18-5730FAJ (RBC) [Entitic mass]MCH [Entitic mass] by Automated count24.7-34.3 [facility] [Entitic mass] by Automated countOrdered By: Anila Lovell on 61-84-2274DGA (RBC) [Entitic mass]28.6 wdOzbnpz06.7-34.3 [facility] Rutan HospitalComment on above:Performed By: #### LIPASE, BMP, HEPATIC, CBC #### [facility] [address] [place] [address] Auto (RBC) [Mass/Vol]Ordered By: Anila Lovell on 51-72-0893FCUU (RBC) [Mass/Vol]MCHC [Mass/volume] by Automated count32.0-35.0 [facility] Rutan HospitalMCHC (RBC) [Mass/Vol]34.0 g/dL32.0-35.0 [facility] HospitalMCV Auto (RBC) [Entitic vol]Ordered By: Anila Lovell on 33-29-8683INR (RBC) [Entitic vol]MCV [Entitic volume] by Automated slujq76-822QlfvbluvfMary Rutan HospitalMCV [Entitic volume] by Automated countOrdered By: Anila Lovell on 48-89-1900EXZ (RBC) [Entitic vol]83.9 fLNormal 80-100Mary Rutan HospitalComment on above:Performed By: #### LIPASE, BMP, HEPATIC, CBC #### [facility] [address] [place] [id number] USAMonocyte distribution width [Entitic volume] in Blood by AutomatedOrdered By: Anila Lovell on 95-44-2586Pqbljlqm distribution width Auto (Bld) [Entitic vol]Monocyte distribution width [Entitic volume] in Blood by AutomatedHigh0.00-20.00Mary Rutan HospitalComment on above:For adults in ED, MDW > 20.0 may be associated with a higher risk of sepsis during the first 12 hrs of hospital admissionMonocyte distribution width Auto (Bld) [Entitic vol]21.24 %High0.00-20.00Mary Rutan HospitalComment on above:For adults in ED, MDW > 20.0 may be associated with a higher risk of sepsis during the first 12 hrs of hospital admissionMonocytes Auto (Bld) [#/Vol] Ordered By: Anila Lovell on 59-73-8214Gcytaszkq (Bld) [#/Vol]Automated blood monocyte count0.0-0.8Mary Rutan HospitalMonocytes [#/volume] in Blood by Automated countOrdered By: Anila Lovell on 61-21-8186Yvbleqqzk (Bld) [#/Vol]0.4 10*3/uLNormal0.0-0.8Mary Rutan HospitalComment on above:Performed By: #### LIPASE, BMP, HEPATIC, CBC #### [facility] [address] [place] [id number] USAMonocytes/100 WBC Auto (Bld)Ordered By: Anila Lovell on 87-33-0668Kyrfowziq/100 WBC (Bld)Automated monocyte %.[facility] Rutan HospitalMonocytes/100 leukocytes in Blood by Automated countOrdered By: Anila Lovell on 47-29-1072Xutqkyqvr/100 WBC (Bld)4.1 %Normal.Mary Rutan HospitalComment on above:Performed By: #### LIPASE, BMP, HEPATIC, CBC #### [facility] [address] [place] [id number] USANeutrophils Auto (Bld) [#/Vol]Ordered By: Anila Lovell on 60-97-8571Yteefpqtjjw (Bld) [#/Vol]Neutrophils [#/volume] in Blood by Automated countHigh1.8-7.7FMcCullough-Hyde Memorial HospitalNeutrophils [#/volume] in Blood by Automated countOrdered By: Anila Lovell on 56-41-1633Vceowpdhnaw (Bld) [#/Vol] 9.1 10*3/uLHigh1.8-7.7FMcCullough-Hyde Memorial HospitalComment on above: Performed By: #### LIPASE, BMP, HEPATIC, CBC #### [facility] [address] [place] [address] USANeutrophils/100 WBC Auto (Bld)Ordered By: Anila Lovell on 37-32-4617Dsjouyonneh/100 WBC (Bld)Automated neutrophil %.Mary Rutan HospitalNeutrophils/100 leukocytes in Blood by Automated countOrdered By: Anila Lovell on 14-84-2730Uiqvyqszqmi/100 WBC (Bld)82.2 %Normal.[facility] Rutan HospitalComment on above:Performed By: #### LIPASE, BMP, HEPATIC, CBC #### [facility] [address] [place] [address] USANitrite Test strip Ql (U)Ordered By: MISSY TRONCOSO on 38-35-9903Tcxjidw Ql (U)Nitrite [Presence] in Urine by Test stripNegative [facility] Rutan HospitalNitrite Ql (U)NegativeNegativeMary Rutan HospitalNo Panel InformationOrdered By: Anila Lovell on 08-07-2024 Estimated GFR (CKD-EPI)> 60.0 mL/MinFirelands Regional Medical CenterPharmacy Creatinine Clearance (Zfos570.55Mary Rutan HospitalNo Panel InformationOrdered By: PROVIDER ABA on 93-20-6035Diqvdac Glucose #2 Comment Cleaned meterMary Rutan HospitalBedside Glucose CommentSee comment Mary Rutan HospitalComment on above:Glu2: WILL NOTIFY DR/RN Nucleated erythrocytes [Presence] in Blood by Automated countOrdered By: Anila Lovell on 64-08-4369Xxewtnipv RBC Auto Ql (Bld)Nucleated erythrocytes [Presence] in Blood by Automated count0-0.5FMcCullough-Hyde Memorial HospitalNucleated RBC Auto Ql (Bld)0.1 /100{WBC}0-0.5FMcCullough-Hyde Memorial HospitalPlatelet mean volume Auto (Bld) [Entitic vol]Ordered By: Anila Lovell on 18-05-5296Pnnyzcjm mean volume (Bld) [Entitic vol]Platelet mean volume [Entitic volume] in Blood by Automated count6.3-10.7FMcCullough-Hyde Memorial HospitalPlatelet mean volume [Entitic volume] in Blood by Automated countOrdered By: Anila Lovell on 08-07-2024 Platelet mean volume (Bld) [Entitic vol]8.2 fLNormal6.3-10.7FMcCullough-Hyde Memorial HospitalComment on above:Performed By: #### LIPASE, BMP, HEPATIC, CBC #### [facility] [address] [place] [id number] USAPlatelets Auto (Bld) [#/Vol]Ordered By: Anila Lvoell on 96-27-5321Vqkhjxyfi (Bld) [#/Vol]Platelets [#/volume] in Blood by Automated wsqui986-330GhrfeydieMary Rutan HospitalPlatelets [#/volume] in Blood by Automated countOrdered By: Anila Lovell on 70-16-3988Lmzmgyquo (Bld) [#/Vol]345 10*3/pHUvhejk196-830WbrtbedtdMary Rutan HospitalComment on above:Performed By: #### LIPASE, BMP, HEPATIC, CBC #### [facility] [address] [place] [address] USAPotassium [Moles/volume] in Serum or PlasmaOrdered By: Anila Lovell on 31-20-9165Urucnjion [Moles/Vol]Potassium [Moles/volume] in Serum or Plasma3.5-5.1FMcCullough-Hyde Memorial HospitalPotassium [Moles/Vol]4.2 mmol/L Normal3.5-5.1FMcCullough-Hyde Memorial HospitalComment on above:Performed By: #### LIPASE, BMP, HEPATIC, CBC #### [facility] [address] [place] [address] USAProtein Test strip (U) [Mass/Vol]Ordered By: MISSY TRONCOSO on 98-62-0625Nvzorhg (U) [Mass/Vol]Protein [Mass/volume] in Urine by Test strip NegativeMary Rutan HospitalProtein (U) [Mass/Vol]NegativeNegative [facility] HospitalProtein [Mass/volume] in Serum or PlasmaOrdered By: Anila Lovell on 55-44-7274Etwpmes [Mass/Vol]Protein [Mass/volume] in Serum or Plasma6.4-8.9Mary Rutan HospitalProtein [Mass/Vol]7.9 g/dLNormal 6.4-8.9Mary Rutan HospitalComment on above:Performed By: #### LIPASE, BMP, HEPATIC, CBC #### [facility] [address] [place] [address] USARBC Auto (Bld) [#/Vol]Ordered By: Anila Lovell on 08-07-2024 RBC (Bld) [#/Vol]Erythrocytes [#/volume] in Blood by Automated countHigh 3.60-5.00Doctors Hospitalerum globulin measurement by calculation (mass/volume)Ordered By: Anila Lovell on 68-71-4944Tqgkelxt (S) [Mass/Vol]3.6 g/dLNormalMary Rutan HospitalComment on above: Performed By: #### LIPASE, BMP, HEPATIC, CBC #### [facility] [address] [place] [id number] USASerum or plasma albumin/globulin mass ratioOrdered By: Anila Lovell on 40-67-3692Despobn/Globulin [Mass ratio]Serum or plasma albumin/globulin mass ratioMary Rutan HospitalAlbumin/Globulin [Mass ratio]1.2 {ratio}NormalMary Rutan HospitalComment on above: Performed By: #### LIPASE, BMP, HEPATIC, CBC #### [facility] [address] [place] [address] USASerum or plasma anion gap determinationOrdered By: Anila Lovell on 29-31-5049Quczf gap [Moles/Vol]Serum or plasma anion gap determination 6.0-15.0Mary Rutan HospitalAnion gap [Moles/Vol]13.6 mmol/LNormal 6.0-15.0Mary Rutan HospitalComment on above:Performed By: #### LIPASE, BMP, HEPATIC, CBC #### [facility] [address] [place] [id number] USASerum or plasma non-glucuronidated bilirubin measurement (mass/volume)Ordered By: Anila Lovell on 45-76-3454Yffangmtc.indirect [Mass/Vol] Serum or plasma non-glucuronidated bilirubin measurement (mass/volume)Mary Rutan HospitalBilirubin.indirect [Mass/Vol]0.4 mg/dLDoctors Hospitalodium [Moles/volume] in Serum or PlasmaOrdered By: Anila Lovell on 23-47-6119Kbcwia [Moles/Vol]Sodium [Moles/volume] in Serum or Iohgfi258-220 Doctors Hospitalodium [Moles/Vol]137 mmol/PAiedvf291-783 [facility] Rutan HospitalComment on above:Performed By: #### LIPASE, BMP, HEPATIC, CBC #### [facility] [address] [place] [address] USASpecific gravity Test strip (U) [Rel density]Ordered By: MISSY TRONCOSO on 50-02-3323Uscwytlw gravity (U) [Rel density]Specific gravity of Urine by Test stripHigh1.001-1.030Doctors Hospitalpecific gravity (U) [Rel density]1.016Awox3.001-1.030[facility] Urea nitrogen [Mass/volume] in Serum or PlasmaOrdered By: Anila Lovell on 39-54-6473Lejy nitrogen [Mass/Vol]Urea nitrogen [Mass/volume] in Serum or Plasma 7-Mary Rutan HospitalUrea nitrogen [Mass/Vol]20 mg/dLNormal7-25 [facility] Rutan HospitalComment on above:Performed By: #### LIPASE, BMP, HEPATIC, CBC #### [facility] [address] [place] [address] USAUrinalysison 13-25-3296Mwxruzdxp,UrineNegativeNormal NegativeThe Unc Health Physician GroupComment on above:Order Comment: Name Collection Type:: Clean-Voided MidstreamPerformed By: #### UHCG, UA #### [place] [address] USAGlucose Ql (U)>=HighNormJackson Memorial Hospital Physician Group Comment on above:Order Comment: Name Collection Type:: Clean-Voided Midstream Performed By: #### UHCG, UA #### [place] [address] USANitrite,UrineNegativeNormalNegativeThe Unc Health Physician GroupComment on above:Order Comment: Name Collection Type:: Clean-Voided MidstreamPerformed By: #### UHCG, UA #### [place] [address] USAOccult Blood,UrineNegativeNormalNegativeHialeah Hospital Physician GroupComment on above:Order Comment: Name Collection Type:: Clean- Voided MidstreamPerformed By: #### UHCG, UA #### [place] [address] USAProtein,UrineNegativeNormalNegativeThe Unc Health Physician GroupComment on above:Order Comment: Name Collection Type:: Clean-Voided MidstreamPerformed By: #### UHCG, UA #### [place] [address] USASpecificy [place],Urine1.963Lzqr3.001-1.030Hialeah Hospital Physician GroupComment on above:Order Comment: Name Collection Type:: Clean- Voided MidstreamPerformed By: #### UHCG, UA #### [place] [address] USAUrobilinogen,UrineNormalNormalNormalThGritman Medical Center Physician GroupComment on above:Order Comment: Name Collection Type:: Clean- Voided MidstreamPerformed By: #### UHCG, UA #### [facility] [address] [place] [id number] USAUrobilinogen Test strip (U) [Mass/Vol]Ordered By: PROVIDER ABA on 51-94-5496Zrzicyxjilwr (U) [Mass/Vol]Urobilinogen [Mass/volume] in Urine by Test stripNoAkron Children's HospitalUrobilinogen (U) [Mass/Vol]Normal mg/dLNoAkron Children's HospitalWBC Auto (Bld) [#/Vol]Ordered By: Anila Lovell on 36-33-6618LSK (Bld) [#/Vol]Leukocytes [#/volume] in Blood by Automated count3.8-11.6FMcCullough-Hyde Memorial Hospital pH Test strip (U)Ordered By: PROVIDER TEMP on 97-15-5648uR (U)pH of Urine by Test strip5.0-9.0Mary Rutan HospitalpH of Urine by Test strip Ordered By: PROVIDER TEMP on 85-06-2320lM (U)5.5 [pH]Normal5.0-9.0Mary Rutan HospitalComment on above:Order Comment: Name Collection Type:: Clean-Voided MidstreamPerformed By: #### UHCG, UA #### [facility] [address] [place] [id number] USAMM TOMOSYNTHESIS SCREENING BIon 49-43-5255[place] [address] Mammography Report Signed Patient: TASHA PAUL MR#: [id number] : 1975 Acct:[id number] Age/Sex: 49 / F ADM Date: 08/06/24 Loc: MAMMO Attending Dr: Sonya Mejia NP Ordering Physician: Sonya Mejia NP Results: Date of Service: 08/06/24 Follow Up: Procedure(s): MM tomosynthesis screening BI Accession Number(s): [id number] cc: Sonya Mejia NP Patient Name: TSAHA PAUL MR#: [id number] : 1975 Exam Date: 08/06/2024 Ordering Doctor: DENISE Mejia VACUUM CLEANER ASSEMBLER RADIOLOGY REPORT PROCEDURE: MM TOMOSYNTHESIS SCREENING BI COMPARISON: MM TOMOSYNTHESIS SCREENING BI, 08/06/2023. MG MAMM SCREEN 3D HECTOR CAD, 08/04/2022. MG MAMM SCREEN HECTOR W CAD, 12/25/2017. INDICATIONS: Screening for malignant [...] at age 42. LOCATION: The [facility] BREAST COMPOSITION: The breasts are almost entirely [...] Signed By: 08/06/24 1450 DD/ 1449 TD/TT: Stationary Engineer Refrigeration:TBHRadiology, Radiologist, - 08/06/2024 [place] [address] Mammography Report Signed Patient: TASHA PAUL MR#: [id number] : 1975 Acct:[id number] Age/Sex: 49 / F ADM Date: 08/06/24 Loc: MAMMO Attending Dr: Sonya Mejia NP Ordering Physician: Sonya Mejia NP Results: Date of Service: 08/06/24 Follow Up: Procedure(s): MM tomosynthesis screening BI Accession Number(s): [id number] cc: Sonya Mejia NP Patient Name: TASHA PAUL MR#: [id number] : 1975 Exam Date: 08/06/2024 Ordering Doctor: DENISE Mejia CNP RADIOLOGY REPORT PROCEDURE: MM TOMOSYNTHESIS SCREENING BI COMPARISON: MM TOMOSYNTHESIS SCREENING BI, 08/06/2023. MG MAMM SCREEN 3D HECTOR CAD, 08/04/2022. MG MAMM SCREEN HECTOR W CAD, 12/25/2017. INDICATIONS: Screening for malignant [...] at age 42. LOCATION: The [facility] BREAST COMPOSITION: The breasts are almost entirely [...] Signed By: 08/06/24 1450 DD/ 1449 TD/TT: Stationary Engineer Refrigeration: DAY [facility] Medical CenterRadiology Study observation (narrative)[facility] TOMOSYNTHESIS SCREENING BIOrdered By: Radiologist Radiology on 91-33-6125QNVHChristian Hospital Work Phone: ccf CMP (CMP) (FOR REMOTE [facility] USE)on 81-35-4297Shzrcab [Mass/Vol]3.2 g/dLLow3.4 - 5.0 g/dLNOMS HealthcareALBUMIN GLOBULIN RATIO0.8NOVT HealthcareALP [Catalytic activity/Vol]126 U/LHigh46 - 116 U/LNOMS HealthcareALT [Catalytic activity/Vol]26 U/L14 - 59 U/LNOMS HealthcareAnion gap [Moles/Vol] 14.6 mmol/LNOMS HealthcareAST [Catalytic activity/Vol]16 U/L15 - 37 U/LNOMS HealthcareBilirubin [Mass/Vol]0.4 mg/dL0.2 - 1.0 mg/dLNOMS HealthcareCalcium [Mass/Vol]9.1 mg/dL8.5 - 10.1 mg/dLNOMS HealthcareChloride [Moles/Vol]103 mmol/L 98 - 107 mmol/LNOMS HealthcareCO2 [Moles/Vol]24.6 mmol/L21.0 - 32.0 mmol/LNOMS HealthcareCreatinine [Mass/Vol]0.65 mg/dL0.55 - 1.02 mg/dLNOVT Healthcare GFR/1.73 sq M.predicted CKD-EPI (S/P/Bld) [Vol rate/Area]>60>=60 mL/min/1.73m 2 NOMS HealthcareGlobulin (S) [Mass/Vol]3.8 g/dLNOVT HealthcareGlucose [Mass/Vol] 185 mg/bMKnwt74 - 106 mg/dLNOVT HealthcareInterpretation and review of laboratory resultsAbnormalNOMS HealthcarePotassium [Moles/Vol]4.2 mmol/L3.5 - 5.1 mmol/LNOMS HealthcareProtein [Mass/Vol]7 g/dL6.4 - 8.2 g/dLNOVT Healthcare Sodium [Moles/Vol]138 mmol/L136 - 145 mmol/LNOMS HealthcareTBH EGFR-NON AF CYPRIOT>60>=60 mL/min/1.73m 2NOMS HealthcareUrea nitrogen [Mass/Vol]15 mg/dL7.0 - 18.0 mg/dLNOVT HealthcareUrea nitrogen/Creatinine [Mass ratio]23.1 mg/mgNOVT HealthcareCLINISYNCNMCCURTAIN MEMORIAL [facility]PITAL – ID[facility]EL HealthcareLaboratory - Chemistry and Chemistry - challengeon 72-88-3067Nkopbfb [Mass/Vol]3.2 g/dLMary Rutan HospitalALP [Catalytic activity/Vol]126 U/[facility] CenterALT [Catalytic activity/Vol]26 U/[facility] CenterAST [Catalytic activity/Vol]16 U/[facility] HospitalBilirubin [Mass/Vol]0.4 mg/dLMary Rutan HospitalCalcium [Mass/Vol]9.1 mg/dLMary Rutan HospitalChloride [Moles/Vol]103 mmol/LFMcCullough-Hyde Memorial HospitalCO2 [Moles/Vol]24.6 mmol/LFMcCullough-Hyde Memorial HospitalCreatinine [Mass/Vol]0.65 mg/dLMary Rutan HospitalGlucose [Mass/Vol]185 mg/dL [facility] HospitalPotassium [Moles/Vol]4.2 mmol/LFMcCullough-Hyde Memorial HospitalProtein [Mass/Vol]7.0 g/dLDoctors Hospitalodium [Moles/Vol]138 mmol/LFMcCullough-Hyde Memorial HospitalUrea nitrogen [Mass/Vol]15.0 mg/dLMary Rutan HospitalNo Panel Informationon 02-41-8449Y-Peptide3.3FMcCullough-Hyde Memorial HospitalEstimated GFR (Non- > 60 mL/minMary Rutan HospitalDexamethasone Level 425Mary Rutan HospitalHbA1c HPLC (Bld) [Mass fraction]on 16-35-2437CgK3q (Bld) [Mass fraction]Hemoglobin A1c/Hemoglobin.total in Blood by HPLCMary Rutan HospitalNo Panel Informationon 05-61-3714Pzfounm Bjwjqtw804XgzjzzghyMary Rutan HospitalAmbulatory Visit Summaryon 06-18-2024 Ambulatory Visit SummaryAmbulatory Visit Summary TASHA PAUL Jairo :1975 Visit Date:06/18/2024 Ambulatory Visit Instructions Your [...] of wisdom tooth, Laparoscopy, Laser eye surgery, [facility] BSO - Total abdominal hysterectomy and bilateral salpingo- oophorectomy, Tonsillectomy. Medications What How Much When Instructions [...] you for choosing us for your care. [facility] CenterGeneral Surgery Office/Clinic Noteon 21-83-2122Xzbkejd Surgery Office/Clinic NoteGeneral Surgery Office/Clinic Note Chief Complaint post operative [...] swallowing difficulties, no hearing loss, no ear infection(s),no nose bleeds. Cardiovascular: normal blood pressure, no [...] of wisdom tooth, Laparoscopy, Laser eye surgery, [facility] BSO - Total abdominal hysterectomy and bilateral salpingo- oophorectomy, Tonsillectomy. Medications amLODIPine 10 mg Tab, 10 [...] Immunizations Vaccine Date Status Comments SARS-CoV-2 (COVID-19) mRNAMUL.ORD![id number] 02/25/2022 Recorded SARSCoV2 mRNA(uakmmbewj-ppch-xiyscg) vac 10/17/2021 Recorded SARS-CoV-2 (COVID-19) mRNA BNT-162b2 vax 04/06/2021 Recorded 2024-05-22: TPV40 SARS-CoV-2 (COVID-19) Ad26 vaccine 07/01/2020 RecordedUniversity Hospitals Geneva Medical CenterComment on above:Result Comment: Electronically Signed By: RAMILA APODACA, Donell Lewis\Date and Time Signed: 06/18/24 13:02 Deaubrie 06-18-2024 RemindersReminders From: Xiomara Florian LPN To: MAX - Clinical; Sent: 06/18/2024 13:00:59 EST Show up: 05/04/2029 07:00:00 EST Subject: colonoscopy recall Due Date/Time: 06/04/2029 07:00:00 EST Reminder/Recall Patient due for surveillance colonoscopy 06/04/2029 due to history of tubular adenoma.[facility] CenterLo 06-04-2024L Specimen: [id number] Received: 06/05/24 Status: ERUM Marks Num: [id number] Spec Type: Surgical Subm Dr: Donell Mcgrath MD FACS Tissues: A Colon Biopsy (RECTAL POLYP) Procedures: AMBER/Edson, Saul/Lionel L4 Age/ Patient Sex Location Account Attending Physician Tasha Paul 48/F LABELL [id number] Donell Mcgrath MD FACS SPEC NUM: [id number] RECD: 06/05/24 STATUS: ERUM MARKS NUM: [id number] VAL: 06/04/[address] [facility] [address]: Donell Mcgrath MD FACS ENTERED: 06/05/24 [facility] DR: Steve Kasper SPEC TYPE: Surgical DEPT: RUDDY TOURE ENTERED BY: [id number] RECV BY: [id number] ORDERED: HE/2, Gross/Micro L4 ORDERED: HE/2, Gross/Micro L4 Pathological Diagnosis Rectum, polypectomy: - Tubular adenoma. Clinical Information Rectal polyp Gross Description Received in formalin labeled with the patients name, date of , and rectal polyp are two acosta-dee, focally erythematous, friable, 0.4 cm each in greatest dimension polypoid fragments. The specimen is entirely submitted in a single cassette. (1, ns, [id number] A) Microscopic Description Microscopic examination is performed. CPT Codes 24293 Specimen: [id number] Received: 06/05/24 Status: ERUM Marks Num: [id number] Spec Type: Surgical Subm Dr: Donell Mcgrath MD FACS Tissues: A Colon Biopsy (RECTAL POLYP) Procedures: HE/2, Gross/Micro L4 Patient: Tasha Paul [id number] (Continued) Signed (signature on file) Ashish Albrecht MD 06/06/24 1214Normal [facility] Health Physician GroupOCT MACULA CIRRUS OU (BOTH EYES)on 06-03-2024 [facility] HospitalRadiology Study observation (narrative)[facility] Ambulatory Visit Summaryon 04-97-5558Irswvropia Visit SummaryAmbulatory Visit Summary TASHA PAUL :1975 Visit Date:05/27/2024 [...] you for choosing us for your care. NormalEast Ohio Regional HospitalHbA1c HPLC (Bld) [Mass fraction] on 33-34-0163XeU3h (Bld) [Mass fraction]Hemoglobin A1c/Hemoglobin.total in Blood by HPLCMary Rutan HospitalNo Panel Informationon 96-45-6873Yisbfem Rynphfb900PphtekobgMary Rutan HospitalALL CBC WITH AUTO DIFFon 01-22-2024 BASOPHILS ABSOLUTE AUTO0.1NOMS HealthcareBasophils/100 WBC (Bld)0.9 %0.2 - 2.0 % NOMS HealthcareEosinophils/100 WBC (Bld)1.2 %0.9 - 7.0 %[facility] Erythrocyte distribution width (RBC) [Ratio]13.3 %11.0 - 15.0 %[facility] Hematocrit (Bld) [Volume fraction]43.0 %36.0 - 48.0 %NOMS HealthcareHemoglobin (Bld) [Mass/Vol]14.5 g/dL12.0 - 16.0 g/dLNOVT HealthcareIMMATURE GRANULOCYTES ABS AUTO0.04HighNOMS HealthcareImmature granulocytes/100 WBC (Bld)0.3 %0.0 - 0.5 %NOMS HealthcareInterpretation and review of laboratory resultsAbnormalNOVT HealthcareLYMPHOCYTES ABSOLUTE AUTO3.9HighNOMS HealthcareLymphocytes/100 WBC (Bld)32.0 %20.5 - 60.0 %NOMS [facility] Medical CenterMCH (RBC) [Entitic mass]28.8 pg26.7 - 34.0 pgNOUniversity of Missouri Health CareMCHC (RBC) [Mass/Vol]33.7 g/dL29.9 - 35.2 g/dLNOUniversity of Missouri Health CareMCV (RBC) [Entitic vol]85.5 fL81.0 - 99.0 fLNOUniversity of Missouri Health CareMONOCYTES ABSOLUTE AUTO0.8NOMS HealthcareMonocytes/100 WBC (Bld)6.3 %1.7 - 12.0 %NOMS HealthcareNEUTROPHILS ABSOLUTE AUTO7.2HighNOVT HealthcareNeutrophils/100 WBC (Bld)59.3 %43.0 - 75.0 %NOMS HealthcarePlatelet mean volume (Bld) [Entitic vol] 9.8 fL9.5 - 13.5 fLNOUniversity of Missouri Health CareTB EO #0.1NOMS HealthcareTB [id number] of Missouri Health CareTB RBC5.03NOUniversity of Missouri Health CareTB WBC12.1HighNOUniversity of [place] Health CareCLINISYNCNMCCURTAIN MEMORIAL HOSPITAL – IDABEL HealthcareNo Panel Informationon 54-40-7166Kagxhhj Vwwrjny459PefsxuiacMary Rutan HospitalTB MICROALB CREAT RATIO RANDOMon 25-97-5560JUJXBMESXI URINE SEYOSZ942.83 mg/dL20.00 - 300.00 mg/dLNOUniversity of Missouri Health CareMICROALBUM CREATININE RATIO UR8.5 mg/g0.0 - 29.9 mg/gNOMS HealthcareComment on above:NO MICROALBUMINURIA 0- 29 MG/G CLINICAL MICROALBUMINURIA 30-300 MG/G MACROALBUMINURIA >300 MG/G MICROALBUMIN URINE RANDOM2.0 mg/dLNINF - 30.0 mg/dLNOUniversity of Missouri Health CareCLEllett Memorial HospitalTB UA (CLEAN/CATCH) MICROSCOPIC IF INDICATEon 46-53-6614ITWDFHPYE URINENegativeNEGATIVENOUniversity of [place] Health CareBLOOD URINENegativeNEGATIVENOVT Healthcare Clarity (U)CLEARCLEARNOVT HealthcareColor (U)YELLOWYELLOWNOUniversity of [place] Health CareGLUCOSE URINE UA100 mg/dLAbnormalNEGATIVENOVT HealthcareInterpretation and review of laboratory resultsAbnormalNOMS HealthcareKetones Ql (U)NegativeNEGATIVE mg/dL [facility] HealthcareLeukocyte esterase Test strip Ql (U)NegativeNEGATIVENOVT HealthcareNITRITE URINENegativeNEGATIVENOVT HealthcarepH (U)5.5 [pH]5.0 - 9.0 NOMS HealthcarePROTEIN URINENegativeNEG/TRACE mg/dLNOVT HealthcareSPECIFIC GRAVITY URINE>=1.822Akixbsab9.005 - 1.025NOVT HealthcareURINE MICROSCOPIC INDICATEDNONMCCURTAIN [facility] HealthcareUROBILINOGEN URINE0.2 EU/dL0.2 - 1.0 EU/dLNOUniversity of Missouri Health CareCLINISYNCNOMS NtyqsalgkcAqM8r HPLC (Bld) [Mass fraction]on 11-26-2023 HbA1c (Bld) [Mass fraction]8.4 %[facility] HospitalNo Panel Informationon 15-00-4100Uanqbat Msmmiex70PmsbetexgMary [facility] Hospital Alanine aminotransferase [Enzymatic activity/volume] in Serum or PlasmaOrdered By: Glenna Quinones on 25-99-8352IVU [Catalytic activity/Vol]31 U/L7-52[facility] HospitalAlbumin [Mass/volume] in Serum or Plasma by Bromocresol green (BCG) dye binding methoOrdered By: Glenna Quinones on 45-81-6943Wgngqkr BCG dye [Mass/Vol]4.1 g/dL3.5-5.7FMcCullough-Hyde Memorial HospitalAlkaline phosphatase [Enzymatic activity/volume] in Serum or PlasmaOrdered By: Glenna Quinones on 47-98-9118ABO [Catalytic activity/Vol]84 U/Z84-676ZmxwumjpcMary Rutan HospitalAspartate aminotransferase [Enzymatic activity/volume] in Serum or PlasmaOrdered By: Glenna Quinones on 98-19-4233AIV [Catalytic activity/Vol]21 U/L 13-39[facility] HospitalBilirubin.total [Mass/volume] in Serum or PlasmaOrdered By: Glenna Quinones on 10-70-2332Cnjsrooxw [Mass/Vol]0.5 mg/dL 0.3-1.0[facility] HospitalCalcium [Mass/volume] in Serum or Plasma Ordered By: Glenna Quinones on 99-68-9439Ltbhyij [Mass/Vol]9.8 mg/dL8.6-10.3 [facility] HospitalCarbon dioxide, total [Moles/volume] in Serum or PlasmaOrdered By: Glenna Quinones on 21-40-4177UE7 [Moles/Vol]30.1 mmol/L 21.0-31.0[facility] HospitalChloride [Moles/volume] in Serum or PlasmaOrdered By: Glenna Quinones on 69-10-7282Vvygqhgj [Moles/Vol]102 mmol/L 98-107[facility] HospitalCholesterol [Mass/volume] in Serum or PlasmaOrdered By: Glenna Quinones on 05-55-2253Lqlouxoogwe [Mass/Vol]245 mg/dL 140-200Mary [facility] HospitalComment on above:Chol less than 200 mg/dl low riskChol 201-239 mg/dl borderline riskChol 240 mg/dl and greater high riskCholesterol in LDL Calc [Mass/Vol]Ordered By: Glenna Quinones on 08-21-2023 Cholesterol in LDL [Mass/Vol]TNPMary Rutan HospitalComment on above:Test not performedCholesterol in LDL [Mass/volume] in Serum or Plasma Ordered By: Glenna Quinones on 00-82-8820Dqliqkqvlzo in LDL [Mass/Vol]173 mg/dL 0-100Mary [facility] HospitalComment on above:LDL ATP III CLASSIFICATIONLDL less than 100 mg/dL OptimalLDL 100-129 mg/dL Near or above fyfcupnOJL941-281 mg/dL Borderline highLDL 160-189 mg/dL HighLDL greater than 189 mg/dL Very highCholesterol in VLDL Calc [Mass/Vol]Ordered By: Glenna Quinones on 76-46-8756Bjfijpdwoco in VLDL [Mass/Vol]91 mg/dLMary Rutan HospitalCreatinine [Mass/volume] in Serum or PlasmaOrdered By: Glenna Quinones on 19-24-8325Hjicxnvftt [Mass/Vol]0.61 mg/dL0.60-1.20[facility] HospitalGlobulin Calc (S) [Mass/Vol]Ordered By: Glenna Quinones on 08-21-2023 Globulin (S) [Mass/Vol]2.7 g/dLMary Rutan HospitalGlucose [Mass/volume] in Serum or PlasmaOrdered By: Glenna Quinones on 88-07-4671Ysgbkmf [Mass/Vol]54 mg/xP48-216YqlpbawwuMary Rutan HospitalComment on above:ADA recommended reference rangeRandom Glucose Reference Range is dependent on time and content of last meal. Glucose of more than 200 mg/dL in a nonstressed, ambulatory subject supports the diagnosisof Diabetes Mellitus.No Panel InformationOrdered By: Glenna Quinones on 00-16-9078Omqxjoubc GFR (CKD-EPI)> 60.0 mL/MinMary Rutan HospitalPharmacy Creatinine Clearance (ChemN/A [facility] HospitalNo Panel Informationon 85-76-4241Hxywkgv Bdfridk785YxeedkzqxMary Rutan HospitalPotassium [Moles/volume] in Serum or PlasmaOrdered By: Glenna Quinones on 49-08-3776Pzirbupiv [Moles/Vol]4.1 mmol/L 3.5-5.1FMcCullough-Hyde Memorial HospitalProtein [Mass/volume] in Serum or Plasma Ordered By: Glenna Quinones on 92-05-3842Bprdxip [Mass/Vol]6.8 g/dL6.4-8.9 [facility] Hospitalerum or plasma albumin/globulin mass ratio Ordered By: Glenna Quinones on 79-08-2068Dkdsuwq/Globulin [Mass ratio]1.5 {ratio} [facility] Hospitalerum or plasma anion gap determinationOrdered By: Glenna Quinones on 75-66-8160Qjlby gap [Moles/Vol]14.0 mmol/L6.0-15.0 [facility] Hospitalerum or plasma high density lipoprotein (HDL) cholesterol measurementOrdered By: Glenna Quinones on 29-74-6227Sodpxntswcl in HDL [Mass/Vol]45 mg/tH54-24AgxfottzbMary Rutan HospitalComment on above:HDL CHOL ATP-III CLASSIFICATION Cardiovascular RiskHDL > or equal to 60 mg/dL LOWHDL < 40 mg/dL HIGHSerum or plasma total cholesterol/high density lipoprotein (HDL) cholesterol mass ratOrdered By: Glenna Quinones on 08-21-2023 Cholesterol.total/Cholesterol in HDL [Mass ratio]5.4 {ratio}<5.0Doctors Hospitalodium [Moles/volume] in Serum or PlasmaOrdered By: Glenna Quinones on 54-31-6812Fpfcox [Moles/Vol]142 mmol/O303-221IwkvakpycMary Rutan HospitalThyrotropin [Units/volume] in Serum or PlasmaOrdered By: Glenna Quinones on 30-08-7003APC Qn1.85 m[IU]/L0.45-5.33[facility] HospitalTriglyceride [Mass/volume] in Serum or PlasmaOrdered By: Glenna Quinones on 72-67-8504Fzsfkskkwulf [Mass/Vol]459 mg/dL0-149[facility] HospitalComment on above:If the triglyceride result is greater than 400, LDLC and related calculations cannot be calculated and resulted.TRIG ATP III CLASSIFICATIONTRIG less than 150 mg/dL NormalTRIG 150-199 mg/dL Borderline highTRIG 200-500 mg/dL High TRIG greater than 500 mg/dL Very highStandard traceable to the Center for Disease Conrtrol and Prevention (CDC) test method. Urea nitrogen [Mass/volume] in Serum or PlasmaOrdered By: Glenna Quinones on 06-56-5022Pqwn nitrogen [Mass/Vol]22 mg/dL7[facility] Vitamin B12 ser/plasOrdered By: Glenna Quinones on 88-24-3782Fmorhqvoi (Vitamin B12) [Mass/Vol]507 pg/yY082-651QtoszsggcMary Rutan HospitalLaboratory - Hematology and Cell countson 72-56-2251KrQ2k (Bld) [Mass fraction]10.1 % [facility] HospitalA1C HEMOGLOBINon 58-17-9854JaD7r (Bld) [Mass fraction]8.6 %GIVVER [facility] [employer] [facility] Other Glucose - FINGER STICKon 88-15-9062Kjrcrxs [Mass/Vol] 160 mg/dLNort LATTO Other HbA1c (Bld) [Mass fraction]on 37-44-3350D6B HEMOGLOBIN GIVVER [facility] [employer] [employer] [facility] Other Actin smooth muscle IgG Ab [Units/volume] in Serum Ordered By: Mark Gramajo on 82-97-8073Lccxi smooth muscle IgG Qn (S)6 Units 0-19[facility] HospitalComment on above:Negative 0 - 19 Weak positive 20 - 30 Moderate to strong positive >30 Actin Antibodies are foundin 52-85% of patients with autoimmune hepatitis or chronic active hepatitis and in 22% of patients with primary biliary cirrhosis.Alanine aminotransferase [Enzymatic activity/volume] in Serum or PlasmaOrdered By: Mark Gramajo on 68-81-7207NXR [Catalytic activity/Vol]15 U/L7-[facility] HospitalAlbumin [Mass/volume] in Serum or Plasma by Bromocresol green (BCG) dye binding methoOrdered By: Mark Gramajo on 66-18-5041Omfisuh BCG dye [Mass/Vol] 3.9 g/dL3.5-5.7FMcCullough-Hyde Memorial HospitalAlkaline phosphatase [Enzymatic activity/volume] in Serum or PlasmaOrdered By: Mark Gramajo on 97-83-6761SDV [Catalytic activity/Vol]83 U/B55-900XbcqlrufcMary Rutan HospitalAmylase [Enzymatic activity/volume] in Serum or PlasmaOrdered By: Mark Gramajo on 61-30-6141Trzhpqk [Catalytic activity/Vol]33 U/N69-772NflohbcriMary Rutan HospitalAspartate aminotransferase [Enzymatic activity/volume] in Serum or Plasma Ordered By: Mark Gramajo on 86-46-6707ZNB [Catalytic activity/Vol]10 U/L13-39 [facility] HospitalBasophils Auto (Bld) [#/Vol]Ordered By: Mark Gramajo 03-65-3928Cclztwubg (Bld) [#/Vol]0.1 10*3/uL0.0-0.2FMcCullough-Hyde Memorial HospitalBasophils/100 WBC Auto (Bld)Ordered By: Mark Gramajo 86-43-6299Vncjvlhoa/100 WBC (Bld)0.7 %.[facility] Bilirubin.direct [Mass/volume] in Serum or PlasmaOrdered By: Mark Gramajo 45-35-9422Knvppztmw.direct [Mass/Vol]0.10 mg/dL0.03-0.18FMcCullough-Hyde Memorial HospitalBilirubin.total [Mass/volume] in Serum or PlasmaOrdered By: Mark Gramajo 11-52-3105Yoxlzutnv [Mass/Vol]0.4 mg/dL0.3-1.0[facility] HospitalCholesterol [Mass/volume] in Serum or PlasmaOrdered By: Mark Gramajo on 96-52-3705Zxzcbhwrdru [Mass/Vol]219 mg/cV527-589TfirkgamkMary Rutan HospitalComment on above:Chol less than 200 mg/dl low riskChol 201-239 mg/dl borderline riskChol 240 mg/dl and greater high riskCholesterol in LDL Calc [Mass/Vol]Ordered By: Mark Gramajo on 21-39-2891Ykrfwhjwpoy in LDL [Mass/Vol] 131 mg/dL0-100[facility] HospitalComment on above:LDL ATP III CLASSIFICATIONLDL less than 100 mg/dL OptimalLDL 100-129 mg/dL Near or above ldywtngVRH175-329 mg/dL Borderline highLDL 160-189 mg/dL HighLDL greater than 189 mg/dL Very highCholesterol in VLDL Calc [Mass/Vol]Ordered By: Mark Gramajo on 14-68-4916Zwjaebpaqua in VLDL [Mass/Vol]37 mg/dLMary Rutan HospitalEosinophils Auto (Bld) [#/Vol]Ordered By: Mark Gramajo on 12-04-2022 Eosinophils (Bld) [#/Vol]0.3 10*3/uL0.0-0.45[facility] Eosinophils/100 WBC Auto (Bld)Ordered By: Mark Gramajo on 12-04-2022 Eosinophils/100 WBC (Bld)2.2 %.[facility] HospitalErythrocyte distribution width Auto (RBC) [Ratio]Ordered By: Mark Gramajo on 12-04-2022 Erythrocyte distribution width (RBC) [Ratio]13.7 %11.9-15.3FMcCullough-Hyde Memorial HospitalFerritin [Mass/volume] in Serum or PlasmaOrdered By: Mark Gramajo on 07-88-3671Pqffhrhe [Mass/Vol]56.2 ng/mL11.0-306.8[facility] HospitalGlobulin Calc (S) [Mass/Vol]Ordered By: Mark Gramajo on 65-08-9322Ztjfnbqe (S) [Mass/Vol]3.1 g/dLMary Rutan Hospital Hematocrit Auto (Bld) [Volume fraction]Ordered By: Mark Gramajo on 12-04-2022 Hematocrit (Bld) [Volume fraction]41.4 %34.0-46.4FMcCullough-Hyde Memorial HospitalHemoglobin [Mass/volume] in BloodOrdered By: Mark Gramajo on 12-04-2022 Hemoglobin (Bld) [Mass/Vol]13.7 g/dL11.8-15.4FMcCullough-Hyde Memorial Hospital Hepatitis B virus surface Ag [Presence] in Serum or Plasma by ImmunoassayOrdered By: Mark Gramajo on 59-34-6054RBO surface Ag IA QlNegativeNegativeMary Rutan HospitalINR in Platelet poor plasma by Coagulation assayOrdered By: Mark Gramajo on 54-24-3207FGU Coag (PPP) [Relative time]1.0 {INR}[facility] HospitalComment on above:INR Therapeutic Range A) Pre- and Peroperative OAT started two weeks before surgery. NOT HIP SURGERY: 1.5 - 2.5 HIP SURGERY: 2 - 3B) Primary and secondary prevention of venous THROMBOSIS: 2 - 3C) Active venous thrombosis, pulmonary embolismand prevention of recurrent venous thrombosis: 2 - 3D) Prevention of arterial thromboembolismincluding patients with mechanical heart valves: 3 - 4.5Iron [Mass/volume] in Serum or PlasmaOrdered By: Mark Gramajo on 61-21-9123Mhpw [Mass/Vol]51 ug/aK94-639 [facility] HospitalIron binding capacity [Mass/volume] in Serum or PlasmaOrdered By: Mark Gramajo on 50-80-1513Ugcg binding capacity [Mass/Vol] 364 ug/kN426-024ZawofhjwuMary Rutan HospitalIron saturation [Mass Fraction] in Serum or PlasmaOrdered By: Mark Gramajo on 53-09-6066Lacs saturation [Mass fraction]14.0 %20-50[facility] HospitalLaboratory - Coagulation Ordered By: Mark Gramajo on 82-12-8776FD Coag (PPP) [Time]11.3 s9.0-12.9 [facility] HospitalLeukocytes [#/volume] corrected for nucleated erythrocytes in Blood by Automated counOrdered By: Mark Gramajo on 12-04-2022 WBC corrected for nucl RBC Auto (Bld) [#/Vol]12.3 10*3/uL3.8-11.6FMcCullough-Hyde Memorial HospitalLipase [Enzymatic activity/volume] in Serum or Plasma Ordered By: Mark Gramajo on 89-89-8474Lokajl [Catalytic activity/Vol]18.0 U/L 11.0-82.0[facility] HospitalLymphocytes Auto (Bld) [#/Vol]Ordered By: Mark Gramajo on 52-43-5370Xmtcotxomvt (Bld) [#/Vol]2.8 10*3/uL1.00-4.8 [facility] HospitalLymphocytes/100 WBC Auto (Bld)Ordered By: Mark Gramajo on 97-11-3588Hxgvldnthhd/100 WBC (Bld)22.5 %.[facility] CenterH Auto (RBC) [Entitic mass]Ordered By: Mark Gramajo on 49-44-2313WBW (RBC) [Entitic mass]28.7 pg24.7-34.3FMcCullough-Hyde Memorial HospitalMCHC Auto (RBC) [Mass/Vol]Ordered By: Mark Gramajo on 84-03-4896DIJQ (RBC) [Mass/Vol]33.2 g/dL32.0-35.0[facility] HospitalMCV Auto (RBC) [Entitic vol]Ordered By: Mark Gramajo on 40-05-7816EAV (RBC) [Entitic vol]86.4 hT49-055ZemeinnwrMary Rutan HospitalMonocytes Auto (Bld) [#/Vol] Ordered By: Mark Gramajo on 90-84-2557Qbjvncbam (Bld) [#/Vol]0.8 10*3/uL 0.0-0.8[facility] HospitalMonocytes/100 WBC Auto (Bld)Ordered By: Mark Grmaajo on 13-21-1696Tlfwavgza/100 WBC (Bld)6.7 %.[facility] HospitalNeutrophils Auto (Bld) [#/Vol]Ordered By: Mark Gramajo on 45-88-1680Cgvxalipznn (Bld) [#/Vol]8.4 10*3/uL1.8-7.7FMcCullough-Hyde Memorial HospitalNeutrophils/100 WBC Auto (Bld)Ordered By: Mark Gramajo on 12-04-2022 Neutrophils/100 WBC (Bld)67.9 %.[facility] HospitalNo Panel InformationOrdered By: Mark Gramajo on 85-72-7121Yhmezcjpl B Core Total AntibodyNegativeNegativeMary Rutan HospitalComment on above: Performed at: [facility] - [facility] [id number] Director: Iftikhar Romero PhD, Phone: [phone] C RNA Quantitative N/[facility] Medical CenterNucleated erythrocytes [Presence] in Blood by Automated countOrdered By: Makr Gramajo on 01-38-2978Okujntoxi RBC Auto Ql (Bld)0.0 /100{WBC}0-0.5FMcCullough-Hyde Memorial HospitalPlatelet mean volume Auto (Bld) [Entitic vol]Ordered By: Mark Gramajo on 33-47-1623Fgfzpxss mean volume (Bld) [Entitic vol]7.7 fL6.3-10.7FMcCullough-Hyde Memorial Hospital Platelets Auto (Bld) [#/Vol]Ordered By: Mark Gramajo on 02-53-6011Vszdltbls (Bld) [#/Vol]303 10*3/pX923-643QnrmqrapaMary Rutan HospitalProtein [Mass/volume] in Serum or PlasmaOrdered By: Mark Gramajo on 70-63-5221Clutwaz [Mass/Vol]7.0 g/dL6.4-8.9[facility] HospitalRBC Auto (Bld) [#/Vol] Ordered By: Mark Gramajo on 14-44-0103AMT (Bld) [#/Vol]4.79 10*6/uL3.60-5.00 Doctors Hospitalerum hepatitis B virus surface antibody detectionOrdered By: Mark Gramajo on 22-50-8501OKR surface Ab Ql (S) Non-Reactive.[facility] HospitalComment on above:Non Reactive: Inconsistent with immunity, less than 10 mIU/mL Reactive: Consistent with immunity, greater than 9.9 mIU/mLSerum or plasma albumin/globulin mass ratio Ordered By: Mark Gramajo on 63-17-5170Yrbeycv/Globulin [Mass ratio]1.3 {ratio} Doctors Hospitalerum or plasma ceruloplasmin measurement (mass/volume)Ordered By: Mark Gramajo on 00-79-7849Qxzhunvdfgvbk [Mass/Vol] 33.7 mg/dL19.0-39.0[facility] HospitalComment on above:Performed at: [facility], [place], [place] [id number] Director: Iftikhar Romero PhD, Phone: [phone] or plasma free cefuroxime measurement (mass/volume)Ordered By: Mark Gramajo on 16-20-4425Egynmpyaul free [Mass/Vol]NegativeNegativeMary Rutan HospitalComment on above: Performed at: - [facility] [id number] Director: Iftikhar Romero PhD, Phone: [phone] or plasma high density lipoprotein (HDL) cholesterol measurementOrdered By: Mark Gramajo on 24-68-2976Bmuezertglc in HDL [Mass/Vol]50 mg/pP33-77CcmimjrmnMary Rutan HospitalComment on above:HDL CHOL ATP-III CLASSIFICATION Cardiovascular RiskHDL > or equal to 60 mg/dL LOWHDL < 40 mg/dL HIGHSerum or plasma non-glucuronidated bilirubin measurement (mass/volume)Ordered By: aMrk Gramajo on 12-04-2022 Bilirubin.indirect [Mass/Vol]0.3 mg/dLDoctors Hospitalerum or plasma total cholesterol/high density lipoprotein (HDL) cholesterol mass rat Ordered By: Mark Gramajo on 01-22-7179Efmxcugckfb.total/Cholesterol in HDL [Mass ratio]4.4 {ratio}<5.0[facility] HospitalTransferrin [Mass/volume] in Serum or PlasmaOrdered By: Mark Gramajo on 12-04-2022 Transferrin [Mass/Vol]260 mg/jF656-739FtebfnftfMary Rutan Hospital Triglyceride [Mass/volume] in Serum or PlasmaOrdered By: Mark Gramajo on 95-50-8880Mxlrmhqdlovn [Mass/Vol]189 mg/dL0-149[facility] Comment on above:TRIG ATP III CLASSIFICATIONTRIG less than 150 mg/dL NormalTRIG 150-199 mg/dL Borderline highTRIG 200-500 mg/dL High TRIG greater than 500 mg/dL Very highStandard traceable to the Center for Disease Conrtrol and Prevention (CDC) test method.WBC Auto (Bld) [#/Vol]Ordered By: Mark Gramajo on 12-04-2022 WBC (Bld) [#/Vol]12.3 10*3/uL3.8-11.6FMcCullough-Hyde Memorial HospitalGlucose - FINGER STICKon 69-64-5040Petrcca [Mass/Vol]197 mg/dLNoellett memorial hospital LATTO Other A1C HEMOGLOBINon 03-49-6170AsS5c (Bld) [Mass fraction] 7.4 %[employer] Other Glucose - FINGER STICKon 35-81-6361Mawsvpc [Mass/Vol] 144 mg/dLNoellett memorial hospital LATTO Other HbA1c (Bld) [Mass fraction]on 69-51-0041K4N HEMOGLOBIN [place] LATTO Other US SINGLE QUAD RT UPPERon 58-73-5098GD SINGLE QUAD RT UPPEREXAMINATION: US SINGLE QUAD RT UPPER HISTORY: Right [...] Electronically authenticated by: VALERIANO SINCLAIR Date: 2022-08-11 11:38NormSumma HealthACETONE SERUMon 39-78-3807SLSAAFMLkppmbutZtcnvxNLCOHVEVOqm [facility] TownshipComment on above:Performed By: #### ACETON #### [facility] [address] [place] [address] Dr. Annabelle Gomez AUTO DIFFon 82-29-4016FBDW #0.1 103/ulNormal0.0-0.1The [facility] TownshipComment on above:Performed By: #### CBC #### [facility] [address] [address] [address] Annabelle KilgoreBasophils/100 WBC (Bld)0.7 %Normal0.2-2.0The [facility] Comment on above:Performed By: #### CBC #### [facility] [address] [place] [address] Dr. Annabelle Cerda #0.1 103/ulNormal0.0-0.7The [facility] TownshipComment on above: Performed By: #### CBC #### [facility] [address] [place] [address] Dr. Annabelle Marioosinophils/100 WBC (Bld)0.7 %Critically low0.9-7.0The [facility] TownshipComment on above:Performed By: #### CBC #### [facility] [address] [place] [address] Dr. Annabelle Mariorythrocyte distribution width (RBC) [Ratio]12.7 %Eejpwc13.0-15.0 The [facility] TownshipComment on above:Performed By: #### CBC #### [facility] [address] [place] [address] Dr. Annabelle KilgoreHematocrit (Bld) [Volume fraction]38.9 %Ibefxy43.0-48.0The [facility] TownshipComment on above:Performed By: #### CBC #### [facility] [address] [place] [address] Dr. Annabelle KilgoreHemoglobin (Bld) [Mass/Vol]13.4 g/bLAtrjsc64.0-16.0The [facility] TownshipComment on above:Performed By: #### CBC #### [facility] [address] [place] [address] Dr. Annabelle Sol #0.05 10e3/ulCritically high0.00-0.03The [facility] Comment on above:Performed By: #### CBC #### [facility] [address] [place] [address] Dr. Annabelle Sol %0.4 %Normal0.0-0.5The [facility] TownshipComment on above: Performed By: #### CBC #### [facility] [address] [place] [address] Dr. Annabelle Peter #3.5 103/ulNormal1.2-3.8The [facility] TownshipComment on above:Performed By: #### CBC #### [facility] [address] [place] [address] Dr. Annabelle Moraeshocytes/100 WBC (Bld)25.1 %Ucghti41.5-60.0The [facility] TownshipComment on above:Performed By: #### CBC #### [facility] [address] [place] [address] Dr. Annabelle Romero DIFF REQNONormalThe [facility] TownshipComment on above: Performed By: #### CBC #### [facility] [address] [place] [address] Dr. Annabelle De Paz (RBC) [Entitic mass]29.5 itGumlba96.7-34.0The [facility] TownshipComment on above:Performed By: #### CBC #### [facility] [address] [place] [address] Dr. Annabelle Gallegos (RBC) [Mass/Vol]34.4 g/nCPepotx53.9-35.2The [facility] TownshipComment on above:Performed By: #### CBC #### [facility] [address] [place] [address] Dr. Annabelle Mckeon (RBC) [Entitic vol]85.7 vPQfszus90.0-99.0The [facility] TownshipComment on above:Performed By: #### CBC #### [facility] [address] [place] [address] Dr. Annabelle Watkins #1.1 103/ulCritically high0.3-0.8The [facility] Comment on above:Performed By: #### CBC #### [facility] [address] [place] [address] Dr. Annabelle Heardocytes/100 WBC (Bld)7.8 %Normal1.7-12.0The [facility] Comment on above:Performed By: #### CBC #### [facility] [address] [place] [address] Dr. Annabelle Hill #9.2 103/ulCritically high1.4-6.5The [facility] Comment on above:Performed By: #### CBC #### [facility] [address] [place] [address] Dr. Annabelle Boldenutrophils/100 WBC (Bld)65.3 %Fxxdjb53.0-75.0The [facility] TownshipComment on above:Performed By: #### CBC #### [facility] [address] [place] [address] Dr. Annabelle Maloneylet mean volume (Bld) [Entitic vol]9.8 fLNormal9.5-13.5The [facility] TownshipComment on above:Performed By: #### CBC #### [facility] [address] [place] [address] Dr. Annabelle KilgorePLT326 103/zwGprjck451-132Saa [facility] TownshipComment on above: Performed By: #### CBC #### [facility] [address] [place] [address] Dr. Annabelle KilgoreRBC4.54 106/ulNormal4.20-5.40The [facility] TownshipComment on above:Performed By: #### CBC #### [facility] [address] [place] [address] Dr. Annabelle KilgoreWBC14.0 103/ulCritically high4.0-11.0The [facility] TownshipComment on above:Performed By: #### CBC #### [facility] [address] [place] [address] Dr. Annabelle KilgoreCT ABD/PELVIS WO CONon 16-37-9459MJ ABD/PELVIS WO CONEXAMINATION: CT ABD/PELVIS WO CON, 08/07/2022 12:38 AM [...] Electronically authenticated by: Sharad PATEL Date: 2022-08-07 02:10[facility] URINE PROFILEon 74-71-2669Bmelzfovb Ql (U)SMALLAbnormal NEGATIVEMorrow County HospitalComment on above:Performed By: #### ERUR #### [facility] [address] [address] [address] Annabelle Sorensen (U)SL CLOUDYAbnormalCLEARThUniversity Hospitals Geneva Medical CenterComment on above:Performed By: #### ERUR #### [facility] [address] [place], [place] [address] Dr. Annabelle Melchor (U)LT. YELLOWNormalYELLOWMorrow County HospitalComment on above:Performed By: #### ERUR #### [facility] [address] [address] [address] Annabelle Gonzalez micrscopic examination will be performed if indicated. NormalMorrow County HospitalComment on above:Performed By: #### ERUR #### [facility] [address] [address] [address] Annabelle KilgoreGlucose Ql (U)NegativeNormalNEGATIVEMorrow County HospitalComment on above:Performed By: #### ERUR #### [facility] [address] [place] [address] Dr. Annabelle KilgoreHemoglobin Ql (U)NegativeNormalNEGATIVEMorrow County Hospital Comment on above:Performed By: #### ERUR #### [facility] [address] [place] [address] Dr. Annabelle KilgoreKetones Ql (U)15 mg/dlAbnormalNEGATIVEMorrow County Hospital Comment on above:Performed By: #### ERUR #### [facility] [address] [place] [address] Dr. Annabelle KilgoreLEUKOCYTESNegativeNormalNEGATIVEMorrow County HospitalComment on above:Performed By: #### ERUR #### [facility] [address] [place] [address] Dr. Annabelle KilgoreNitrite Ql (U)NegativeNormalNEGATIVEMorrow County HospitalComment on above:Performed By: #### ERUR #### [facility] [address] [place] [address] Dr. Annabelle KilgorepH (U)5.5 [pH]Normal5-9Morrow County HospitalComment on above: Performed By: #### ERUR #### [facility] [facility] [address] [place] [address] Dr. Annabelle KilgoreSPEC GRAVITY1.223Sfvrfawz8.005-<=1.025[facility] Comment on above:Performed By: #### ERUR #### [facility] [address] [place] [address] Dr. Annabelle KilgoreUA PROTEINNegativeNormalNEGATIVE/ TRACEMorrow [facility] Hospital Comment on above:Performed By: #### ERUR #### [facility] [address] [address] [address] Annabelle Main MICRO INDNOT INDICATEDNormalThe [facility] TownshipComment on above:Performed By: #### ERUR #### [facility] [address] [address] [address] Annabelle KilgoreUrobilinogen Qn (U)0.2 {Floyd'U}/dLNormal0.2 - 1.0The [facility] TownshipComment on above:Performed By: #### ERUR #### [facility] [address] [place] [address] Dr. Annabelle KilgoreLACTATE/LACTIC ACIDon 89-79-8045Xqvletl [Moles/Vol]1.1 mmol/L Normal0.4-2.0The [facility] TownshipComment on above:Performed By: #### LACT #### [facility] [address] [place] [address] Dr. Annabelle KilgoreLIPASEon 81-71-0365Ynikyy [Catalytic activity/Vol]37.0 U/L Critically low73.0-393.0The [facility] TownshipComment on above:Performed By: #### LIPA #### [facility] [address] [place] [address] Dr. Annabelle Farr VENOUS BLOODon 23-40-9196GPN3 MBLQYC55.0 mmHgCritically low 40.0-52.0The [facility] TownshipComment on above:Performed By: #### PHVEN ####[facility] [address] [address]Dr. Annabelle KilgorepH VENOUS7.855Lydipp1.330-7.430The [facility] TownshipComment on above: Performed By: #### PHVEN ####[facility] [address] [address]Dr. Annabelle KilgorePROF 14(COMP METB)on 91-31-5760Jxoatot [Mass/Vol]3.5 g/dLNormal3.4-5.0The [facility] TownshipComment on above:Performed By: #### CMP, HSTROPN #### [facility] [address] [address] [address] Annabelle KilgoreAlbumin/Globulin [Mass ratio]0.9 {ratio}NormalThe [facility] TownshipComment on above:Performed By: #### CMP, HSTROPN #### [facility] [address] [address] [address] Annabelle FrancesP [Catalytic activity/Vol]82 U/AQyzwdz58-586Uvx [facility] TownshipComment on above:Performed By: #### CMP, HSTROPN #### [facility] [address] [address] [address] Annabelle FrancesT [Catalytic activity/Vol]35 U/XQtfgxp60-48Don [facility] TownshipComment on above:Performed By: #### CMP, HSTROPN #### [facility] [address] [place] [address] Dr. Annabelle Bangon gap [Moles/Vol]18.2 mmol/LNormalThe [facility] Comment on above:Performed By: #### CMP, HSTROPN #### [facility] [address] [address] [address] Annabelle KilgoreAST [Catalytic activity/Vol]21 U/XPkayis12-07Nah [facility] TownshipComment on above:Performed By: #### CMP, HSTROPN #### [facility] [address] [address] [address] Annabelle KilgoreBilirubin [Mass/Vol]0.5 mg/dLNormal0.2-1.0The [facility] Comment on above:Performed By: #### CMP, HSTROPN #### [facility] [address] [address] [address] Annabelle KilgoreCalcium [Mass/Vol]9.2 mg/dLNormal8.5-10.1The [facility] Comment on above:Performed By: #### CMP, HSTROPN #### [facility] [address] [address] [address] Annabelle KilgoreChloride [Moles/Vol]104 mmol/ILlzpsk52-899Fkm [facility] Comment on above:Performed By: #### CMP, HSTROPN #### [facility] [address] [place] [address] Dr. Annabelle KilgoreCO2 [Moles/Vol]23.1 mmol/VSkkcrc32.0-32.0The [facility] Comment on above:Performed By: #### CMP, HSTROPN #### [facility] [address] [place] [address] Dr. Annabelle KilgoreCreatinine [Mass/Vol]0.65 mg/dLNormal0.55-1.02The [facility] TownshipComment on above:Performed By: #### CMP, HSTROPN #### [facility] [address] [place] [address] Dr. Annabelle MarioGFR-AF CYPRIOT>60Normal>=60The [facility] TownshipComment on above:Performed By: #### CMP, HSTROPN #### [facility] [address] [place] [address] Dr. Annabelle MarioGFR-NON AF CYPRIOT>60Normal>=60The [facility] TownshipComment on above:Performed By: #### CMP, HSTROPN #### [facility] [address] [place] [address] Dr. Annabelle KilgoreGlobulin (S) [Mass/Vol]3.9 g/dLNormalThe [facility] TownshipComment on above:Performed By: #### CMP, HSTROPN #### [facility] [address] [place] [address] Dr. Annabelle KilgoreGlucose [Mass/Vol]122 mg/dLCritically rotx13-843Gmu [facility] TownshipComment on above:Performed By: #### CMP, HSTROPN #### [facility] [address] [place] [address] Dr. Annabelle KilgorePotassium [Moles/Vol]3.3 mmol/LCritically low3.5-5.1The [facility] TownshipComment on above:Performed By: #### CMP, HSTROPN #### [facility] [address] [address] [address] Annabelle KilgoreProtein [Mass/Vol]7.4 g/dLNormal6.4-8.2The [facility] Comment on above:Performed By: #### CMP, HSTROPN #### [facility] [address] [address] [address] Annabelle KilgoreSodium [Moles/Vol]142 mmol/OHehkad953-011Ajc [facility] Comment on above:Performed By: #### CMP, HSTROPN #### [facility] [address] [address] [address] Annabelle KilgoreUrea nitrogen [Mass/Vol]15.0 mg/dLNormal7.0-18.0The [facility] TownshipComment on above:Performed By: #### CMP, HSTROPN #### [facility] [address] [address] [address] Annabelle Kee nitrogen/Creatinine [Mass ratio]23.1 mg/mgNormalThe [facility] TownshipComment on above:Performed By: #### CMP, HSTROPN #### [facility] [address] [address] [address] Annabelle Dodge, HIGH SENSITIVITYon 49-67-7693UFFNII14.1 pg/mLNormal 4.0-51.3TGreene Memorial HospitalComment on above:Result Comment: CUT-OFF POINTS HAVE BEEN ESTABLISHED BASED ON THE FOURTH UNIVERSAL DEFINITIONS OF MYOCARDIAL INFARCTION. THE UPPER REFERENCE LIMIT (URL) OF TROPONIN, DEFINED THE 99TH PERCENTILE OF cTnI DISTRIBUTION IN A REFERENCE POPULATION, HAS BEEN CONFIRMED THE DECISION THRESHOLD FOR NE DIAGNOSIS.Performed By: #### CMP, HSTROPN #### [facility] [address] [place] [address] Dr. Annabelle KilgoreMG MAMM SCREEN 3D HECTOR CADon 46-44-8447NF MAMM SCREEN 3D HECTOR CAD Patient: TASHA PAUL Exam Date: 08/04/2022 : 1975 Gender:F Ordering : DENISE MEJIA CNP Admission #: [id number] Family : Order #: [id number] CLICK HERE TO VIEW EXAM RADIOLOGY REPORT [...] at age 42. LOCATION: The [facility] BREAST COMPOSITION: Scattered areas fibroglandular density. FINDINGS: [...] by: Christopher Vega MD on 08/07/2022 at 10:05[facility] Alanine aminotransferase [Enzymatic activity/volume] in Serum or PlasmaOrdered By: Glenna Quinones on 41-87-1860ONS [Catalytic activity/Vol]25 U/L7-52[facility] HospitalAlbumin [Mass/volume] in Serum or Plasma by Bromocresol green (BCG) dye binding methoOrdered By: Glenna Quinones on 36-02-5505Vqbdaog BCG dye [Mass/Vol]4.2 g/dL3.5-5.7FMcCullough-Hyde Memorial HospitalAlkaline phosphatase [Enzymatic activity/volume] in Serum or PlasmaOrdered By: Glenna Quinones on 18-14-4301ACC [Catalytic activity/Vol]84 U/P56-806IxkvrcdojMary Rutan HospitalAspartate aminotransferase [Enzymatic activity/volume] in Serum or PlasmaOrdered By: Glenna Quinones on 84-49-2744WSY [Catalytic activity/Vol]17 U/L 13-39Mary [facility] HospitalBilirubin.total [Mass/volume] in Serum or PlasmaOrdered By: Glenna Quinones on 74-05-2888Ywyhnqroz [Mass/Vol]0.6 mg/dL 0.3-1.0[facility] HospitalCalcium [Mass/volume] in Serum or Plasma Ordered By: Glenna Quinones on 75-53-4562Lbihmxd [Mass/Vol]9.6 mg/dL8.6-10.3 [facility] HospitalCarbon dioxide, total [Moles/volume] in Serum or PlasmaOrdered By: Glenna Quinones on 11-66-4790HZ6 [Moles/Vol]26.4 mmol/L 21.0-31.0[facility] HospitalChloride [Moles/volume] in Serum or PlasmaOrdered By: Glenna Quinones on 37-26-3108Kdzrtapy [Moles/Vol]102 mmol/L 98-107[facility] HospitalCholesterol [Mass/volume] in Serum or PlasmaOrdered By: Glenna Quinones on 15-75-6798Zzjzrvovfxk [Mass/Vol]144 mg/dL 140-200Mary [facility]an HospitalComment on above:Chol less than 200 mg/dl low riskChol 201-239 mg/dl borderline riskChol 240 mg/dl and greater high riskCholesterol in LDL Calc [Mass/Vol]Ordered By: Glenna Quinones on 07-19-2022 Cholesterol in LDL [Mass/Vol]66 mg/dL0-100[facility] Comment on above:LDL ATP III CLASSIFICATIONLDL less than 100 mg/dL OptimalLDL 100-129 mg/dL Near or above isqtgyxDHI177-360 mg/dL Borderline highLDL 160-189 mg/dL HighLDL greater than 189 mg/dL Very highCholesterol in VLDL Calc [Mass/Vol]Ordered By: Glenna Quinones on 88-45-6420Hbaxdylkbif in VLDL [Mass/Vol] 33 mg/dLMary Rutan HospitalCreatinine [Mass/volume] in Serum or PlasmaOrdered By: Glenna Quinones on 76-78-9261Tvnwccjwpm [Mass/Vol]0.52 mg/dL 0.60-1.20[facility] HospitalCreatinine [Mass/volume] in Urine Ordered By: Glenna Quinones on 22-87-1779Golwblcimm (U) [Mass/Vol]146.0 mg/dL [facility] HospitalComment on above:No reference range established Globulin Calc (S) [Mass/Vol]Ordered By: Glenna Quinones on 45-72-9146Vukquzty (S) [Mass/Vol]2.9 g/dLMary Rutan HospitalGlucose [Mass/volume] in Serum or PlasmaOrdered By: Glenna Quinones on 22-53-6381Wisvgel [Mass/Vol]140 mg/vP69-440GllznivkfMary Rutan HospitalComment on above:ADA recommended reference rangeRandom Glucose Reference Range is dependent on time and content of last meal. Glucose of more than 200 mg/dL in a nonstressed, ambulatory subject supports the diagnosisof Diabetes Mellitus.Microalbumin [Mass/volume] in UrineOrdered By: Glenna Quinones on 10-59-2345Phjndqg DL <= 20 mg/L (U) [Mass/Vol]2.2 mg/dL0.0-1.8[facility] HospitalNo Panel Information Ordered By: Glenna Quinones on 72-50-8140Bhujhscfb GFR (CKD-EPI)> 60.0 mL/Min [facility] HospitalPharmacy Creatinine Clearance (ChemN/[facility] CenterPotassium [Moles/volume] in Serum or PlasmaOrdered By: Glenna Quinones on 56-06-3981Zbjmdvczv [Moles/Vol]4.2 mmol/L3.5-5.1FMcCullough-Hyde Memorial HospitalProtein [Mass/volume] in Serum or PlasmaOrdered By: Glenna Quinones on 47-50-2396Cfyaqiv [Mass/Vol]7.1 g/dL6.4-8.9Doctors Hospitalerum or plasma albumin/globulin mass ratioOrdered By: Glenna Quinones on 48-70-7465Wgldsxm/Globulin [Mass ratio]1.4 {ratio}Doctors Hospitalerum or plasma anion gap determinationOrdered By: Glenna Quinones on 78-92-8507Pixfi gap [Moles/Vol]15.8 mmol/L6.0-15.0Doctors Hospitalerum or plasma high density lipoprotein (HDL) cholesterol measurement Ordered By: Glenna Quinones on 65-99-3770Ekwjmunfaof in HDL [Mass/Vol]45 mg/dL 35-85Mary [facility] HospitalComment on above:HDL CHOL ATP-III CLASSIFICATION Cardiovascular RiskHDL > or equal to 60 mg/dL LOWHDL < 40 mg/dL HIGHSerum or plasma total cholesterol/high density lipoprotein (HDL) cholesterol mass ratOrdered By: Glenna Quinones on 13-01-3183Phyhnnbxcpy.total/Cholesterol in HDL [Mass ratio]3.2 {ratio}<5.0Doctors Hospitalodium [Moles/volume] in Serum or PlasmaOrdered By: Glenna Quinones on 94-44-8112Xxnvxp [Moles/Vol]140 mmol/Q898-456TdrurjizzMary Rutan HospitalTriglyceride [Mass/volume] in Serum or PlasmaOrdered By: Glenna Quinones on 07-19-2022 Triglyceride [Mass/Vol]167 mg/dL0-149Mary Rutan HospitalComment on above:TRIG ATP III CLASSIFICATIONTRIG less than 150 mg/dL NormalTRIG 150-199 mg/dL Borderline highTRIG 200-500 mg/dL High TRIG greater than 500 mg/dL Very highStandard traceable to the Center for Disease Conrtrol and Prevention (CDC) test method.Urea nitrogen [Mass/volume] in Serum or PlasmaOrdered By: Glenna Quinones on 62-40-1899Zykg nitrogen [Mass/Vol]15 mg/dL7-25Mary Rutan HospitalUrine microalbumin/creatinine mass ratioOrdered By: Glenna Quinones on 43-24-3390Hokgbpl/Creatinine DL <= 20 mg/L (U) [Mass ratio]15.0 mg/g0.0-30.0 [facility] HospitalComment on above:30-300 mg/g indicates an increased risk for diabetic nephropathy. Greater than 300 mg/g is consistent with clinical nephropathy. (Am. J. Kidney Disease 1995, 25:107)Vitamin B12 ser/plasOrdered By: Glenna Quinones on 11-77-5289Sntdcspfd (Vitamin B12) [Mass/Vol]615 pg/qG899-664EpbsfplsiMary Rutan HospitalVitamin D+Metabolites [Mass/volume] in Serum or PlasmaOrdered By: Glenna Quinones on 00-61-9908Bfiadqe D+Metabolites [Mass/Vol]37.0 ng/aI66-318HudokdwfyMary Rutan Hospital Comment on above:VITAMIN D STATUS 25(OH)VITAMIN D RANGE (ng/mL) Deficient <20 Insufficient 20 to <03Ppvjilefxg34 to 100Reference: Eulalio MF,Janny GARCIA, Zeus VALLE, et al. Evaluation,treatment, and prevention of vitamin D deficiency; an Endocrine Society clinical practice guideline. JCEM. 2010; 96 (7):1911-30.Glucose - FINGER STICKon 04-03-3558Sgvkoob [Mass/Vol]89 mg/dLNoEnconcert Other a1c HEMOGLOBINon 79-04-0557QxM1g (Bld) [Mass fraction] 8.5 %[employer] Other Glucose - FINGER STICKon 01-88-8839Nktrbea [Mass/Vol] 157 mg/dLNoEnconcert Other HbA1c (Bld) [Mass fraction]on 59-59-6856S1P [employer] Other Glucose - FINGER STICKon 23-31-8107Furigkf [Mass/Vol] 272 mg/dLNoEnconcert Other Glucose - FINGER STICKon 91-83-8663Klpuyaf [Mass/Vol] 378 mg/dLNoEnconcert Other a1c HEMOGLOBINon 65-71-3737KhP0b (Bld) [Mass fraction] 9.3 %[employer] Other Glucose - FINGER STICKon 79-63-2550Zioporb [Mass/Vol] 252 mg/dLNoEnconcert Other HbA1c (Bld) [Mass fraction]on 66-12-4402U6Q [employer] Other Albumin [Mass/volume] in Serum or Plasmaon 04-28-2020 Albumin [Mass/Vol]3.5 g/dL3.2-5.5FMcCullough-Hyde Memorial HospitalCholesterol [Mass/volume] in Serum or Plasmaon 25-36-7241Btdkqfpnqei [Mass/Vol]261 mg/dL 140-200Mary [facility] HospitalComment on above:Chol less than 200 mg/dl low riskChol 201-239 mg/dl borderline riskChol 240 mg/dl and greater high riskCholesterol in LDL Calc [Mass/Vol]on 25-05-3260Zcemtejreqm in LDL [Mass/Vol] [facility] SystemComment on above:Test not performed Cholesterol in VLDL Calc [Mass/Vol]on 82-22-8705Lephjmgydlm in VLDL [Mass/Vol] [facility] SystemComment on above:Test not performed Creatinine [Mass/volume] in Urineon 18-07-8789Tzycjredxe (U) [Mass/Vol]52.4 mg/dLMary Rutan HospitalComment on above:No reference range establishedCreatinine and Glomerular filtration rate.predicted panel (S/P/Bld)on 01-17-8286Khbfnrfnfc [Mass/Vol]0.63 mg/dL0.44-1.03[facility] HospitalEstimated glomerular filtration rate (GFR) non- Americanon 78-44-9121ROX/1.73 sq M.predicted among non-blacks MDRD (S/P/Bld) [Vol rate/Area]mL/min/{1.73_m2}[facility] HospitalGlobulin Calc (S) [Mass/Vol]on 81-93-7798Lxvnxuwm (S) [Mass/Vol]2.7 g/dLMary Rutan HospitalLaboratory - Chemistry and Chemistry - challengeon 21-91-5292Ykfzctwjo (Vitamin B12) [Mass/Vol]247 pg/uZ284-775LucirxiggMary Rutan Hospital GFR/1.73 sq M.predicted MDRD (S/P/Bld) [Vol rate/Area]mL/min/{1.73_m2}[facility] HospitalComment on above:GFR estimated reference range: According to KDOQI guidelines, <60 ml/min/1.73m2 is sufficient todiagnose a patient with chronic kidney disease.No Panel Informationon 78-22-884056312406-Kefoarq Vitamin D Total20.1 ng/qT61-641NlfokuhcfMary Rutan HospitalComment on above:VITAMIN D STATUS 25(OH)VITAMIN D RANGE (ng/mL) Deficient <20 Insufficient 20 to <83Zbhpxelefn58 to 100Reference: Eulalio DALE,Janny GARCIA, Zeus VALLE, et al. Evaluation,treatment, and prevention of vitamin D deficiency; an Endocrine Society clinical practice guideline. JCEM. 2010; 96(7):1911-30.Pharmacy Creatinine Clearance (ChemN/[facility] CenterProtein [Mass/volume] in Serum or Plasmaon 19-08-7631Ouldfmp [Mass/Vol]6.2 g/dL6.1-7.9 Doctors Hospitalerum or plasma alanine aminotransferase measurement without P-5'-P (enzymatic activion 45-27-8809IPL No additional P-5'-P [Catalytic activity/Vol]21 U/O64-55MsrmcppqeDoctors Hospitalerum or plasma albumin/globulin mass ratioon 12-16-2769Zjoyqsg/Globulin [Mass ratio] 1.3 {ratio}Doctors Hospitalerum or plasma alkaline phosphatase measurement (enzymatic activity/volume)on 03-51-2283AFE [Catalytic activity/Vol] 86 U/X20-33GzmyjktilDoctors Hospitalerum or plasma aspartate aminotransferase measurement (enzymatic activity/volume)on 11-38-8032NTC [Catalytic activity/Vol]19 U/B17-62VbfoixqzbDoctors Hospitalerum or plasma calcium measurement (mass/volume)on 07-43-4884Yhhojxn [Mass/Vol]9.1 mg/dL 8.2-10.2FACMC Healthcare System Glenbeigherum or plasma chloride measurement (moles/volume)on 45-31-8093Wqoqwmgw [Moles/Vol]103 mmol/N72-359XhdkllitcDoctors Hospitalerum or plasma cholesterol in LDL measurement (mass/volume)on 86-33-6336Uthycvedzop in LDL [Mass/Vol]148 mg/dL0-100[facility] HospitalComment on above:LDL ATP III CLASSIFICATIONLDL less than 100 mg/dL OptimalLDL 100-129 mg/dL Near or above pgxwkjhSXX113-290 mg/dL Borderline highLDL 160-189 mg/dL HighLDL greater than 189 mg/dL Very highSerum or plasma glucose measurement (mass/volume)on 62-35-6169Smdzljg [Mass/Vol]90 mg/oO49-791ZbarfecbfMary Rutan HospitalComment on above:ADA recommended reference rangeRandom Glucose Reference Range is dependent on time and content of last meal. Glucose of more than 200 mg/dL in a nonstressed, ambulatory subject supports the diagnosisof Diabetes Mellitus.Serum or plasma high density lipoprotein (HDL) cholesterol measurementon 63-29-0498Myhdkpvdrat in HDL [Mass/Vol]56 mg/qJ71-68DimdzlwquMary Rutan HospitalComment on above:HDL CHOL ATP-III CLASSIFICATION Cardiovascular RiskHDL > or equal to 60 mg/dL LOWHDL < 40 mg/dL HIGHSerum or plasma potassium measurement (moles/volume)on 70-40-2336Vwurzktfq [Moles/Vol]4.3 mmol/L3.5-5.1FACMC Healthcare System Glenbeigherum or plasma sodium measurement (moles/volume)on 04-90-6562Hnzheh [Moles/Vol]137 mmol/T253-234HyehcrvgtDoctors Hospitalerum or plasma total bilirubin measurement (mass/volume)on 10-47-9048Volwhdnjg [Mass/Vol]0.5 mg/dL0.3-1.2FACMC Healthcare System Glenbeigherum or plasma total carbon dioxide measurement (moles/volume)on 62-27-4642XG0 [Moles/Vol]24.8 mmol/L 22.0-30.0Doctors Hospitalerum or plasma total cholesterol/high density lipoprotein (HDL) cholesterol mass felix 04-28-2020 Cholesterol.total/Cholesterol in HDL [Mass ratio]4.7 {ratio}<5.0Doctors Hospitalerum or plasma urea nitrogen measurement (mass/volume)on 76-88-4663Qwgk nitrogen [Mass/Vol]12 mg/dL9-23[facility] Triglyceride [Mass/volume] in Serum or Plasmaon 20-27-9296Jwhpgvejdscy [Mass/Vol]418 mg/zN02-600VuzfbyspkMary Rutan HospitalComment on above:If the triglyceride result is greater than 400, LDLC and related calculations cannot be calculated and resulted.TRIG ATP III CLASSIFICATIONTRIG less than 150 mg/dL NormalTRIG 150-199 mg/dL BorderlinehighTRIG 200-500 mg/dL High TRIG greater than 500 mg/dL Very highStandard traceable to the Center for Disease Conrtrol and Prevention (CDC) test method.Urine microalbumin measurement with detection limit of 20 mg/L or less (mass/volume)on 40-62-9671Ddlwlpk DL <= 20 mg/L (U) [Mass/Vol]0.5 mg/dL0.0-1.8[facility] HospitalUrine microalbumin/creatinine mass ratioon 65-05-9803Zxnoqhv/Creatinine DL <= 20 mg/L (U) [Mass ratio]9.0 mg/g0.0-30.0[facility] HospitalComment on above:30-300 mg/g indicates an increased risk for diabetic nephropathy. Greater than 300 mg/g is consistent with clinical nephropathy. (Am. J. Kidney Disease 1995, 25:107)No Panel InformationGreene Memorial Hospital Vital Signs Date TimeVital SignValuePerforming FdujkcmeeAtnbruef47-12-7922 15:17-0400Body mass index (BMI) [Ratio]42.45 kg/m2Sonya Joaquinclyde [employer] Work Phone: [facility] HospitalMwobinpzlv16-02-4751 15:17-0400Body temperature 98.1 [degF]Sonya Emanidanishclyde [employer] Work Phone: [facility] HospitalBzfoodncxy67-50-6817 15:17-0400Body .3 kgSonya Joaquinclyde [employer] Work Phone: [facility] HospitalXqyobvcmqg21-20-3490 15:17-0400Diastolic blood oeidnzfs61 mm[Hg]Sonya Joaquinclyde [employer] Work Phone: [place] [address] [address]Udoeisycws65-85-5093 15:17-0400Heart rate98 /min Sonya Emanidanishclyde [employer] Work Phone: [address] [address]Ejrgfamwrs25-60-2556 15:17-0400Respiratory rate18 /minSonya Emanidanishclyde [employer] Work Phone: [address] [address]Ayxgehmktb19-55-3738 15:17-3406XbH9% (BldA) [Mass fraction]96 %Sonya Emanihholz [employer] Work Phone: [facility] HospitalEfybyivcst75-91-0870 15:17-0400Systolic blood jsnppdmi295 mm[Hg]Sonya Aicosvaldoz [employer] Work Phone: [facility] HospitalVwwhaiggtr24-64-3418 13:05-0400Body fwoayy205.64 cmLisa Aichholz Work Phone: [phone]07-15-2025 13:05-0400 Body mass index (BMI) [Ratio]42.5 kg/m2Lisa Aichholz Work Phone: [phone]07-15-2025 13:05-0400 Body .7 kgLisa Aichholz Work Phone: 1([phone])[address]07-15-2025 13:05-0400 Diastolic blood rvcwoghd82 mm[Hg]Sonya Aichholz Work Phone: 1([phone] [place], [place] 9470307-15-2025 13:05-0400 Heart rate96 /minLisa Aichholz Work Phone: [phone])[address]07-15-2025 13:05-0400 Respiratory rate18 /minLisa Aichholz Work Phone: [phone])[address]07-15-2025 13:05-0400 SaO2% (BldA) [Mass fraction]98 %Sonya Aichholz Work Phone: [phone])[address]07-15-2025 13:05-0400 Systolic blood vkoizhch176 mm[Hg]Sonya Aichholz Work Phone: [phone])[address]07-08-2025 15:55-0400 Body mass index (BMI) [Ratio]40.9 kg/m2Lisa Aichholz [employer] Work Phone: [facility] HospitalSbopwzwrdj01-27-8078 15:55-0400Body temperature 98.49 [degF]Sonya Emanihholz [employer] Work Phone: 1([phone] [place], [place] 1347707-08-2025 15:55-0400Body eskesz510.94 kgLisa Aichholz [employer] Work Phone: [phone])[address] [place], [place] 1347707-08-2025 15:55-0400Diastolic blood linouttu60 mm[Hg]Sonya Aichholz [employer] Work Phone: [phone] [place], [place] [address]Bpktyhrzvx89-09-8843 15:55-0400Heart rate91 /min Sonya Aichholz [employer] Work Phone: 1(858)[address] [place], [place] 1347707-08-2025 15:55-0400Respiratory rate18 /minLisa Aichholz [employer] Work Phone: 1(154)[address] [place], [place] 1347707-08-2025 15:55-4249VeF9% (BldA) [Mass fraction]94 %Sonya Aichholz [employer] Work Phone: 1(485)6-[address] [place], [place] [address]Jsbnocdfjk16-60-5980 15:55-0400Systolic blood dihmasnz036 mm[Hg]Soyna Aichholz [employer] Work Phone: 1(885)[address] [place], [place] 1347704-22-2025 12:57-0400Body dgweao942.64 cmLisa Aichholz Work Phone: [phone])[address]04-22-2025 12:57-0400 Body mass index (BMI) [Ratio]42.1 kg/m2Lisa Aichholz Work Phone: [phone])[address]04-22-2025 12:57-0400 Body nyexqg085.4 kgLisa Aichholz Work Phone: 1(251)[address]04-22-2025 12:57-0400 Diastolic blood mm[Hg]Sonya Aichholz Work Phone: 1(399)[address]04-22-2025 12:57-0400 Heart gadk519 /minLisa Aichholz Work Phone: 1(462)[address]04-22-2025 12:57-0400 Respiratory rate18 /minLisa Aichholz Work Phone: [facility]04-22-2025 12:57-0400 SaO2% (BldA) [Mass fraction]96 %Sonya Aichholz Work Phone: [facility]04-22-2025 12:57-0400 Systolic blood qgpirllf251 mm[Hg]Sonya Aichholz Work Phone: [facility]04-17-2025 18:32-0400 Diastolic blood tanpfjmr76 mm[Hg]Sonya Aichholz Work Phone: [phone]-[facility]04-17-2025 18:32-0400 Heart uztp720 /minLisa Aichholz Work Phone: [facility]04-17-2025 18:32-0400 Respiratory rate18 /minLisa Aichholz Work Phone: [phone] [place], [place] 9470304-17-2025 18:32-0400 SaO2% (BldA) [Mass fraction]95 %Sonya Aichholz Work Phone: [facility]04-17-2025 18:32-0400 Systolic blood ysrikrbu164 mm[Hg]Sonya Aichholz Work Phone: [facility]04-17-2025 16:17-0400 Body .64 cmLisa Aichholz Work Phone: [facility]04-17-2025 16:17-0400 Body gufaxbhotah84.6 [degF]Sonya Aichholz Work Phone: [facility]04-17-2025 16:17-0400 Body ljrfev774 kgLisa Aichholz Work Phone: [facility]02-27-2025 15:20-0500 Body hdarah662.1 cmDonell Mcgrath MD Work Phone: [facility]02-27-2025 15:20-0500 Body mass index (BMI) [Ratio]44.2 kg/m4EibieitDonell Mcgrath MD Work Phone: [phone]02-27-2025 15:20-0500 Body .7 kgDonell Mcgrath MD Work Phone: [phone])[address]02-27-2025 15:20-0500 Diastolic blood kfhobmyo05 mm[Hg]Donell Mcgrath MD Work Phone: [phone]02-27-2025 15:20-0500 Heart rate97 /minDonell Mcgrath MD Work Phone: [phone])[address]02-27-2025 15:20-0500 Respiratory rate18 /minDonell Mcgrath MD Work Phone: [phone])[address]02-27-2025 15:20-0500 SaO2% (BldA) [Mass fraction]96 %Donell Mcgrath MD Work Phone: 1(545)1-[address] [place], [place] 1486002-27-2025 15:20-0500 Systolic blood odjsrjky150 mm[Hg]Donell Mcgrath MD Work Phone: 1([phone] [place], [place] 1486002-04-2025 14:17-0500 Blood Pressure LocationDonell MCGRATH [phone]-KobwaOhio[facility] [place] 05-27-2024 14:17-0500Diastolic blood papaprwx61 mm[Hg]Donell MCGRATH [phone]-HmtlrOhiohealth [facility] [place] 05-27-2024 14:17-0500Heart rate72 /minDonell MCGRATH [phone]-SptcsOhiohealth [facility] [place] 05-27-2024 14:17-0500Respiratory rate16 /minMicashutosh MCGRATH [phone]-KnkvzOhiohealth [facility] [place] 05-27-2024 14:17-0500Systolic blood ckyrerjg832 mm[Hg]Donell MCGRATH [phone]-[facility]iC[facility] Ranjith 05-01-2024 14:34-0500Diastolic blood zarjsors33 mm[Hg]Sonya Mejia [employer] Work Phone: [facility]zauyjhocl93[facility]-0457 14:34-0500Systolic blood ogvwogxa143 mm[Hg]Sonya Mejia [employer] Work Phone: [phone] [place], [place] [address]Cdkgfxbews92-52-4736 13:57-0500Body mtgaxu777.6 cmLcaroline Mejia [employer]ER Work Phone: [phone] [place], [place] [address]Gnjuamgbwm63-93-3844 13:57-0500Body mass index (BMI) [Ratio]41.84 kg/m2Sonya Mejia [employer] Work Phone: [phone] [place], [place] [address]Xmpmqpctrg93-44-5398 13:57-0500Body temperature 98.1 [degF]Sonya Mejia [employer] Work Phone: [phone] [place], [place] [address]Rgqkjxudee86-18-3461 13:57-0500Body tqhxui778.57 kgSonya Mejia [employer] W[employer] Work Phone: [phone] [place], [place] [address]Tyhndvqvas86-79-3554 13:57-0500Heart eefs832 /min Sonya Mejia [employer] Work Phone: [phone] HospitalWlujtbzuuc24-73-9789 13:57-0500Respiratory rate20 /minSonya Mejia [employer] W[employer] T[employer]ER Work Phone: [phone] [place], [place] [address]Qiijytkefd11-12-8178 13:57-5060ZrE5% (BldA) [Mass fraction]96 %Sonya Mejia [employer] W[employer] Work Phone: [phone] [place], [place] [address]Uvhksttiyr46-37-3594 13:02-0500Body eqscac726.1 cm[facility]11-11-2024 13:02-0500Body mass index (BMI) [Ratio]44.1 kg/l8DiyvhopwfMary Rutan Hospital11-11-2024 13:02-0500Body bqzwny443.4 [facility]11-11-2024 13:02-0500Diastolic blood tciuhgus18 mm[Hg][facility]11-11-2024 13:02-0500 Heart dpjd392 /[facility]11-11-2024 13:02-0500 Respiratory rate18 /[facility]11-11-2024 13:02-0500 SaO2% (BldA) [Mass fraction]96 %[facility]11-11-2024 13:02-0500Systolic blood osfmxhib095 mm[Hg][facility] 02-21-2024 10:59-0400Body mass index (BMI) [Ratio]42.61 kg/m2Sonya Mejia [employer] Work Phone: [phone] [place], [place] [address]Sqhtcueceo29-35-1897 10:59-0400Body temperature 98.71 [degF]Sonya Jackie [employer] W[employer] T[employer]ER Work Phone: [facility] HospitalNoeqwlkuvz59-33-3499 10:59-0400Body mvavbo195.75 kgSonya Jackie [employer] W[employer] T[employer]ER Work Phone: [facility] HospitalElzlssttdn97-96-4969 10:59-0400Diastolic blood mm[Hg]Sonya Jackie [employer] W[employer]ER Work Phone: [facility] HospitalXsiwrrqrvt65-20-8323 10:59-0400Heart nkkq448 /min Sonya Jackie [employer] W[employer]ER Work Phone: [facility] HospitalMgyaqscwco06-59-7978 10:59-4776OpZ0% (BldA) [Mass fraction]95 %Sonya Jackie [employer] W[employer] T[employer]ER Work Phone: [facility] HospitalVlbuzluyrj40-20-4128 10:59-0400Systolic blood clwdaxdv060 mm[Hg]Sonya Jackie [employer] W[employer] T[employer]ER Work Phone: [facility] HospitalKfgfinfqkb09-42-4620 14:30-0400Body eheszn622.6 cmLcaroline Jackie [employer] W[employer] T[employer]ER Work Phone: [facility] HospitalWcnyuplfos74-86-4756 14:30-0400Body mass index (BMI) [Ratio]43.22 kg/m2Sonya Mejia [employer] W[employer]ER Work Phone: [facility] HospitalTkkyxwxqsl39-60-3864 14:30-0400Body temperature 98.29 [degF]Sonya Mejia [employer] W[employer] T[employer]ER Work Phone: [facility] HospitalHcadwfucwb99-90-1859 14:30-0400Body iumbke211.47 kgSonya Mejia [employer] W[employer] T[employer]ER Work Phone: [facility] HospitalOlzrcezrgz70-66-2947 14:30-0400Diastolic blood mm[Hg]Sonya Mejia [employer] W[employer] T[employer]ER Work Phone: [facility] HospitalIabyqjtyrp54-60-9823 14:30-0400Heart rate96 /min Sonya Mejia [employer]ER Work Phone: [facility] HospitalHdiknzxthr37-82-3514 14:30-0400Respiratory rate20 /minSonya Mejia [employer] W[employer] T[employer]ER Work Phone: [phone] HospitalMwyhqgkpzh22-80-0325 14:30-7949UgO1% (BldA) [Mass fraction]96 %Sonya Mejia [employer] W[employer] TENDER Work Phone: [facility] HospitalSuimjkmlcs55-56-2403 14:30-0400Systolic blood cstixquq374 mm[Hg]Sonya Mejia [employer] W[employer] T[employer]ER Work Phone: [facility] HospitalDarhklkfbz41-52-6474 14:25-0400Body .1 cm[facility]10-01-2024 14:25-0400Body mass index (BMI) [Ratio]44.2 kg/y3TeyxcsionMary Rutan Hospital10-01-2024 14:25-0400Body tyfhls261.65 kgMary [facility] Hospital10-01-2024 14:25-0400Diastolic blood qamklawi64 mm[Hg][facility]10-01-2024 14:25-0400 Heart txvy701 /minMary [facility]10-01-2024 14:25-0400 Respiratory rate18 /[facility]10-01-2024 14:25-0400 SaO2% (BldA) [Mass fraction]96 %[facility]10-01-2024 14:250400Systolic blood srbpilbm531 mm[Hg][facility] 11-26-2023 14:03-0400Body .1 cm[facility] 11-26-2023 14:03-0400Body mass index (BMI) [Ratio]45.9 kg/t7VsrwkshdkMary [facility] Hospital08-05-2024 14:03040Body vbuxss306.19 kgMary [facility]08-05-2024 14:03-0400Diastolic blood swdpzanu88 mm[Hg][facility]08-05-2024 14:030400Heart obdt869 /[facility]08-05-2024 14:03-0400Respiratory rate18 /[facility]08-05-2024 14:03-1271GxH9% (BldA) [Mass fraction]96 %[facility]08-05-2024 14:03-0400Systolic blood lcnzaxuv792 mm[Hg] [facility]06-20-2024 13:30-0400Body hewmbp672.1 cmLisa AicContinuityX Solutionsz Work Phone: [facility]06-20-2024 13:30-0400 Body mass index (BMI) [Ratio]44.4 kg/m2Lisa Aichholz Work Phone: [facility]06-20-2024 13:30-0400 Body .1 kgLisa Aichholz Work Phone: [facility]04-30-2024 12:54-0400 Body vpdxqu672.1 [facility] [employer] Work Phone: [facility]04-30-2024 12:54-0400 Body mass index (BMI) [Ratio]44.6 kg/i6NrmarczxRebsamen [facility] Work Phone: [facility]04-30-2024 12:54-0400 Body qhuvru680.56 kgSerR[facility]ide [facility] Work Phone: [facility]04-30-2024 12:54-0400 Diastolic blood wabjmuku28 mm[Hg][facility] [employer] Work Phone: 1([phone] [place], [place] 6850404-30-2024 12:54-0400 Heart givd811 /minServices [place] [facility] Work Phone: 1(372)270-[address] [place], [place] 6850404-30-2024 12:54-0400 Respiratory rate20 /minServices [place] [facility] Work Phone: [phone] [place], [place] 6850404-30-2024 12:54-0400 SaO2% (BldA) [Mass fraction]95 %[facility] [place] [facility] Work Phone: 1(111)440-[address] [place], [place] 6850404-30-2024 12:54-0400 Systolic blood cgwykszf002 mm[Hg][facility] [place] [facility] Work Phone: [phone]02-15-2024 17:03-0500 Body wywpxh107.6 Taylorisa Shiloz [employer]ER Work Phone: [facility] HospitalLckfwvxkbg14-32-7196 17:03-0500Body mass index (BMI) [Ratio]42.74 kg/m2Lisa Emaniholz [employer]ER Work Phone: [facility] HospitalGxkhlqzjkp36-98-2248 17:03-0500Body temperature 97.59 [degF]Sonya Shiloz [employer] W[employer] T[employer]ER Work Phone: [facility] HospitalDhjymhzokv15-60-2388 17:03-0500Body .11 kgLisa Emanihholz [employer] W[employer]ER Work Phone: [facility] HospitalJtgjvaodoh96-47-5805 17:03-0500Diastolic blood mm[Hg]Sonya Emanihjuanz [employer] W[employer] TENDER Work Phone: [facility] HospitalUjesfrmvzt91-67-2389 17:03-0500Heart wqvs871 /min Sonya Emanihholz [employer] W[employer]ER Work Phone: [place] [address]Ylgolcxcaw17-31-1622 17:03-0500Respiratory rate19 /minLisa Shiloz [employer] W[employer] TENDER Work Phone: [employer] Vmawgevrvx10-53-9845 17:03-4326LrP8% (BldA) [Mass fraction]98 %Sonya Mejia [employer] W[employer] T[employer]ER Work Phone: [employer] Fwvzaqkbkt59-56-1369 17:03-0500Systolic blood tcgdmcol581 mm[Hg]Sonya Mejia [employer] W[employer] T[employer]ER Work Phone: [employer] Rugqaanvsf66-01-2152 14:00-0400Body emmnfy886.1 cmDeborah Scally Other [employer] Other 10-30-2023 14:00-0400Body mass index (BMI) [Ratio] 42.76 kg/p6Ofoajqc Scally Other [employer] Other 10-30-2023 14:00-0400Body .58 kgDeborah Sterlingly Other [employer] Other 10-30-2023 14:00-0400Diastolic blood kzolbrsj87 mm[Hg] Glenna Scally Other [employer] Other 10-30-2023 14:00-0400Respiratory rate18 /minDeborah Scally Other [employer] Other 10-30-2023 14:00-4259PkV6% (BldA) [Mass fraction]96 % Glenna Scally Other [employer] Other 10-30-2023 14:00-0400Systolic blood ojcocbbl837 mm[Hg] Glenna Scally Other [employer] Other 09-26-2023 13:00-0400Body rtmyja183.1 cmDeborah Scally Other [employer] Other 09-26-2023 13:00-0400Body mass index (BMI) [Ratio] 40.63 kg/q1Eohplbr Scally Other [employer] Other 09-26-2023 13:00-0400Body jabqaf571.77 kgDeborah Scally Other [employer] Other 08-01-2023 13:00-0400Body vtmkxu061.1 cmDeborah Sterlingly Other [employer] Other 08-01-2023 13:00-0400Body mass index (BMI) [Ratio] 41.36 kg/q6Ajvnvii Scally Other [employer] Other 08-01-2023 13:00-0400Body xzjoit774.76 kgDedianne Katzly Other [employer] Other 08-01-2023 13:00-0400Diastolic blood qtienfvx24 mm[Hg] Glenna Scally Other [employer] Other 08-01-2023 13:00-0400Respiratory rate18 /minDeborah Scally Other [employer] Other 08-01-2023 13:00-7951GiW5% (BldA) [Mass fraction]98 % Glenna Scally Other [employer] Other 08-01-2023 13:00-0400Systolic blood oftsomaf711 mm[Hg] Glenna Scally Other [employer] Other 07-31-2023 15:00-0400Body .1 cmRyan Scovanner Other [employer] Other 07-31-2023 15:00-0400Body mass index (BMI) [Ratio] 41.05 kg/m2Ryan Scovanner Other [employer] Other 07-31-2023 15:00-0400Body nyeiwl842.9 kgRyan Scovanner Other [employer] Other 07-31-2023 15:00-0400Diastolic blood lxhglpqy51 mm[Hg] Mark Scovanner Other [employer] Other 07-31-2023 15:00-0400Systolic blood pjjeztta281 mm[Hg] Mark Scovanner Other [employer] Other 06-27-2023 11:00-0400Body axcdfp358.1 cmDeborperico Scally Other [employer] Other 06-27-2023 11:00-0400Body mass index (BMI) [Ratio] 41.76 kg/w1Rehkljs Scally Other [employer] Other 06-27-2023 11:00-0400Body cttisu477.85 kgDeborah Scally Other [employer] Other 05-10-2023 14:00-0400Body .1 cmDeborah Scally Other [employer] Other 05-10-2023 14:00-0400Body mass index (BMI) [Ratio] 42.25 kg/q6Crpzxgm Scally Other [employer] Other 05-10-2023 14:00-0400Body .17 kgDeborah Scally Other [employer] Other 05-10-2023 14:00-0400Diastolic blood wuxacwgz87 mm[Hg] Glenna Scally Other [employer] Other 05-10-2023 14:00-0400Respiratory rate18 /minDeborah Scally Other [employer] Other 05-10-2023 14:00-5162EcV2% (BldA) [Mass fraction]96 % Glenna Scally Other [employer] Other 05-10-2023 14:00-0400Systolic blood zsiiigef532 mm[Hg] Glenna Scally Other [employer] Other 03-29-2023 14:00-0400Body zuoonp784.1 cmDeborah Scally Other [employer] Other 03-29-2023 14:00-0400Body mass index (BMI) [Ratio]42.1 kg/g8Izuefgy Scally Other [employer] Other 03-29-2023 14:00-0400Body wvgzky340.76 kgDeborah Scally Other [employer] Other 01-04-2023 14:00-0500Body sthnty055.1 cmDeborah Scally Other [employer] Other 01-04-2023 14:00-0500Body mass index (BMI) [Ratio]42.3 kg/a1Onvhhnc Scally Other [employer] Other 01-04-2023 14:00-0500Body rovqbs258.31 kgDeborah Scally Other [employer] Other 11-22-2022 14:00-0500Body lnxcfo814.1 cmDeborah Scally Other [employer] Other 11-22-2022 14:00-0500Body mass index (BMI) [Ratio] 43.13 kg/p7Hqejggg Scally Other [employer] Other 11-22-2022 14:00-0500Body siigfp390.57 kgDeborah Scally Other [employer] Other 10-27-2022 14:00-0400Body .1 cmDeborah Scally Other [employer] Other 10-27-2022 14:00-0400Body mass index (BMI) [Ratio] 41.18 kg/u0Lczzhkb Scally Other [employer] Other 10-27-2022 14:00-0400Body hhoold684.27 kgDeborah Scally Other [employer] Other 10-27-2022 14:00-0400Diastolic blood mm[Hg] Glenna Scally Other [employer] Other 10-27-2022 14:00-0400Respiratory rate18 /minDeborah Scally Other [employer] Other 10-27-2022 14:00-9375AfK8% (BldA) [Mass fraction]97 % Glenna Scally Other [employer] Other 10-27-2022 14:00-0400Systolic blood pyarxrfi071 mm[Hg] Glenna Scally Other [employer] Other 06-07-2022 14:00-0400Body zzprse122.1 cmDeborah Joni Other [employer] Other 06-07-2022 14:00-0400Body mass index (BMI) [Ratio] 42.01 kg/l9Jfktjee Sterlingly Other [employer] Other 06-07-2022 14:00-0400Body .53 kgDeborah Joni Other [employer] Other 06-07-2022 14:00-0400Diastolic blood poaajtxe61 mm[Hg] Glenna Scally Other [employer] Other 06-07-2022 14:00-0400Respiratory rate18 /minDeborah Scally Other [employer] Other 06-07-2022 14:00-9218EqX4% (BldA) [Mass fraction]96 % Glenna Scally Other [employer] Other 06-07-2022 14:00-0400Systolic blood mm[Hg] Glenna Scally Other [employer] Other 04-27-2022 14:00-0400Body dxppsi619.1 cmDeborah Scally Other [employer] Other 04-27-2022 14:00-0400Body mass index (BMI) [Ratio] 41.73 kg/v4Phrznav Sterlingly Other [employer] Other 04-27-2022 14:00-0400Body vqwojo755.76 kgDeborah Scally Other [employer] Other 04-12-2022 15:00-0400Body bapzjh279.1 cmDeborah Scally Other [employer] Other 04-12-2022 15:00-0400Body mass index (BMI) [Ratio]42.9 kg/c9Rdxzgsi Scally Other [employer] Other 04-12-2022 15:00-0400Body .94 kgDeborah Scally Other [employer] Other 04-12-2022 15:00-0400Diastolic blood syihdton47 mm[Hg] Glenna Scally Other [employer] Other 04-12-2022 15:00-0400Respiratory rate18 /minDeborah Scally Other [employer] Other 04-12-2022 15:00-7993PrP9% (BldA) [Mass fraction]98 % Glenna Scally Other [employer] Other 04-12-2022 15:00-0400Systolic blood iobywumv510 mm[Hg] Glenna Scally Other [employer] Other 03-15-2022 14:30-0400Body xwepls705.1 cmDeborah Scally Other [employer] Other 03-15-2022 14:30-0400Body mass index (BMI) [Ratio]42.6 kg/j4Cckisxz Scally Other [employer] Other 03-15-2022 14:30-0400Body epyogc341.12 kgDeborah Scally Other [employer] Other 03-15-2022 14:30-0400Diastolic blood usigjfrf29 mm[Hg] Glenna Scally Other [employer] Other 03-15-2022 14:30-0400Respiratory rate20 /minDeborah Scally Other [employer] Other 03-15-2022 14:30-6465DsB5% (BldA) [Mass fraction]98 % Glenna Scally Other [employer] Other 03-15-2022 14:30-0400Systolic blood ukwhovlz580 mm[Hg] Glenna Scally Other [employer] Other 12-20-2021 15:30-0500Body qvkjru538.1 cmDedianne Quinones Other [employer] Other 12-20-2021 15:30-0500Body mass index (BMI) [Ratio] 42.43 kg/w8Vatrhepdianne Katzly Other [employer] Other 12-20-2021 15:30-0500Body kraltd854.67 kgDedianne Quinones Other [employer] Other 12-20-2021 15:30-0500Diastolic blood wnmaenkv96 mm[Hg] Glenna Sterlingly Other [employer] Other 12-20-2021 15:30-0500Respiratory rate20 /minDeborah Sterlingly Other [employer] Other 12-20-2021 15:30-3000GtR2% (BldA) [Mass fraction]97 % Glenna Scally Other [employer] Other 12-20-2021 15:30-0500Systolic blood axsrtadc330 mm[Hg] Glenna Scally Other [employer] Other Encounters Encounter DateEncounter TypeCare ProviderFacilityStart: 12-30-2024 End: 52-91-0069owuplmbmdbMrfo J Aichholz Work Phone: [facility] Work Phone: Start: 12-30-2024 End: 29-33-5218Yypvutw encounter Alessia Downs RN-[facility] Work Phone: Start: 12-01-2024 End: 92-29-0277Ujdapav encounter procedureGlendy Monreal PA-C Work Phone: OphthalmologyComment on above: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 and traction retinal d etachments involving maculae, unspecified whether longterm insulin use (HCC) (Primary Dx); 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, bilateralStart: 12-01-2024 End: 48-53-1872fkhrsnwrelQCPXAEZI BARAONAFacility:[facility] Start: 11-25-2024 End: 61-58-5643Iatcscs encounter Olinda Mejia NP Work Phone: n[facility] CWM FMComment on above:Encounter for subsequent annual wellness visit (AWV) in Medicare patient (Primary Dx); Primary hypertension ; Gastroesophageal reflux disease, unspecified whether esophagitis present; 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, with long-term current use of insulin, macular edema presence unspecified, unspecified laterality, unspecified proliferative retinop* (C* (HCC); Morbid (severe) obesity due to excess calories ([facility]-HCC); Morbid obesity due to excess calories ([facility]-HCC); Anxiety and depression ; Mixed hyperlipidemia ; Anxiety; Major depressive disorder with single episode, remission status unspecified Start: 11-25-2024 End: 86-55-9775Noorzq flowsLudin Mejia NP Work Phone: [facility] CWM FMStart: 11-25-2024 End: 31-18-3067Mpgfwz Tk Mejia NP Work Phone: [facility] CWM FMStart: 11-04-2024 End: 93-37-0560vvelmtymseXhpm J Aichholz Work Phone: [facility] Work Phone: Start: 11-04-2024 End: 75-74-6664Wynikod encounter procedureGlenna Quinones [facility] Work Phone: Start: 10-30-2024 End: 00-67-9573Lnzdabzks Result EncounterLisa Emanijuanz [employer] Work Phone: noms External Department UnsolicitedStart: 10-30-2024 End: 54-25-9501Efuktpesm Result EncounterLisa Emaniholz [employer] Work Phone: noms External Department UnsolicitedStart: 10-30-2024 End: 42-06-9502Nipoluwf Result EncounterLisa Emanijuanz [employer] Work Phone: noms External Department UnsolicitedStart: 10-30-2024 End: 26-35-7487jdlrluqpjdMctk J Aichholz Work Phone: [facility] Work Phone: Start: 10-30-2024 End: 24-88-5412Vvepzpcd ReferredLisa Timothy Mejia [employer] W[employer]-C-LAB [facility] [facility] Start: 10-29-2024 End: 78-84-5507Syurcoinv Result EncounterLisa Emaniholz [employer] Work Phone: noms External Department UnsolicitedStart: 10-29-2024 End: 41-41-1840Hghfnfxoh Result EncounterLisa Emaniholz [employer] Work Phone: noms External Department UnsolicitedStart: 10-29-2024 Non-patient / Non-visitDedianne Quinones APRNProvidence [facility] Work Phone: Start: 10-28-2024 End: 36-05-9748Xcpzho outpatient visit 25 minutesLi Jackie [employer] Work Phone: noms CW FMComment on above:Generalized abdominal pain (Primary Dx); Gastroesophageal reflux disease, unspecified whether esophagitis present; Environmental and seasonal allergies; 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, with long-term current use of insulin, macular edema presence unspecified, unspecified laterality, unspecified proliferative retinop* (C* (HCC); Morbid (severe) obesity due to excess calories ([facility])Start: 10-28-2024 End: 10-89-6865wsklxqjlrwKEPF EMANIHHOLZNot AvailableStart: 10-28-2024 End: 01-79-7565Mzxjku flowsheetLisa Aichholz [employer] Work Phone: [facility] CWM FMStart: 10-28-2024 End: 48-92-8569Mjpwyf flowsheetLisa Aichholz [employer] Work Phone: [facility] CWM FMStart: 09-23-2024 End: 94-22-7250yyennidpezSylc J Aichholz Work Phone: [facility] Work Phone: Start: 09-23-2024 End: 56-15-0369Emdwenw encounter procedureLisa Emanidanishholz Work Phone: [facility] Work Phone: Start: 08-12-2024 End: 44-57-6085szjhbdwpxqLjqm J Emanihholz Work Phone: [facility] Work Phone: Start: 08-12-2024 End: 17-65-7835Wsfekic encounter procedureLisa Emanidanishholz Work Phone: [facility] Work Phone: Start: 08-07-2024 End: 53-23-0443Mvflgnhcs department patient visitLisa Emanidanishclyde Work Phone: [facility] Work Phone: Start: 08-06-2024 End: 59-23-6550Fbtxudjgg Result EncounterLisa Jackie [employer] Work Phone: noms External Department UnsolicitedStart: 08-06-2024 End: 67-45-4328Lbqintycc Result EncounterLisa Emanihholz [employer] Work Phone: noms External Department UnsolicitedStart: 08-04-2024 End: 60-15-2017MiliygRoiv Aichholz [employer] Work Phone: [facility] CW FMComment on above:Anxiety; Major depressive disorder with single episode, remission status unspecified (CMS/HCC); Primary hypertension (CMS/HCC); Mixed hyperlipidemia (CMS/HCC)Start: 07-10-2024 End: 30-27-7811Mgwdkfjrk Result EncounterGeneric External Data ProviderNOMS External Department UnsolicitedStart: 07-10-2024 End: 60-57-2715Jcunsnzwk Result EncounterGeneric External Data ProviderNOMS External Department UnsolicitedStart: 51-45-2389Owm-patient / Non-visitLi Jackie Work Phone: [facility] Work Phone: Start: 06-19-2024 End: 06-28-0129dkcokfppheJdgebtb Nill MD Work Phone: [facility] Work Phone: Start: 06-19-2024 End: 07-96-9829Pxwvkgs encounter procedureDonell Mcgrath MD Work Phone: [facility] Work Phone: Start: 06-18-2024 End: 83-68-6726tjcdepzcyqJaotnzk R NILLFacility: [place]vueStart: 06-18-2024 End: 27-92-4203Wobjcsg encounter procedureMichael R NILL [phone]-KesykCinc[facility] [place] Start: 06-04-2024 End: 81-97-8037qjbncqvgmtDxjdivh R NillUniversity [facility] Work Phone: Start: 06-04-2024 End: 51-86-7100Ezfmrrdf ReferredDonell Mcgrath MD Work Phone: [facility]-LAB Path Spec [place] HospStart: 06-03-2024 End: 35-18-0114fjzwtowmkiMiplowb R NILLFacility:CD:[id number]: 06-03-2024 End: 67-48-9751Ffmstla encounter procedureJason Acevedo MD Work Phone: OphthalmologyComment on above: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 and traction retinal d etachments involving maculae, unspecified whether bus girl insulin use (HCC) (Primary Dx); 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, bilateral; Nuclear sclerotic cataract, bilateralStart: 05-27-2024 End: 30-19-8512cuvyeurwwtUJOJ J AICHHOLZFacility:[facility] CenterueStart: 05-27-2024 End: 70-13-6729Gwbpiew encounter procedureMichael R NILL [phone]-NchxlCincinnati [facility] [place] Start: 05-15-2024 End: 45-67-2005oovuvoahymDqrupgtaxC[facility] Work Phone: Start: 05-15-2024 End: 62-74-3191Zmqdngb encounter procedureUnc Health [facility] Work Phone: Start: 57-46-2482xmzogyzadxWirkzow NILLFacility: [place]Start: 05-01-2024 End: 56-06-9017Wrwrql flowsheetSonya Mejia [employer] Work Phone: [facility] FMStart: 05-01-2024 End: 15-84-3674Udnlre flowsheetSonya Mejia [employer] W[employer] T[employer]ER Work Phone: [facility] FMStart: 05-01-2024 End: 65-01-5918Tlwxyb outpatient visit 25 minutesSonya Mejia [employer]INE WATER TENDER Work Phone: noms CWM FMComment on above:Primary hypertension (CMS/HCC) (Primary Dx); Type 2 diabetes mellitus with diabetic cataract (CMS/HCC); Type 2 diabetes mellitus 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 edema, unspecifiedeye ([facility]); Opioid abuse, in remission ([facility]); shelter (current) use of insulin ([facility]); Morbid (severe) obesity due to excess calories ([facility]); Body mass index (BMI) 40.0-44.9, adult ([facility]); Gastroesophageal reflux disease, unspecified whether esophagitis present; Adenocarcinoma of endometrium, stage 1 ([facility]); Class 3 severe obesity due to excess calories without serious comorbidity with body mass index (BMI) of 40.0 to 44.9 in adult ([facility]); 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, with long-term current use of insulin, macular edema presence unspecified, unspecified laterality, unspecified proliferative retinop* ([facility]); Anxiety and depression ([facility]); Mixed hyperlipidemia ([facility]); Environmental and seasonal allergies; Anxiety; Major depressive disorder with single episode, remission status unspecified ([facility]); Colon cancer screeningStart: 05-01-2024 End: 22-90-3461okzapgwdwtUYZZKenrick Long AvailableStart: 03-03-2024 End: 54-08-9608okqvyikqbnYikffukvpMer[facility] Work Phone: Start: 03-03-2024 End: 95-60-2976Dckrjny encounter [facility] Work Phone: Start: 02-21-2024 End: 69-93-8460Ixvlbq Tk Mejia MARINE WATER TENDER Work Phone: noms CWM FMStart: 02-21-2024 End: 78-04-3066Mohuyh Tk Mejia MARINE WATER TENDER Work Phone: noms CWM FMStart: 02-21-2024 End: 86-74-7130Khmbng outpatient visit 15 minutesLisa Mejia MARINE WATER TENDER Work Phone: noms CWM FMComment on above:Diabetic ketoacidosis without coma associated with type 2 diabetes mellitus ([facility]) (Primary Dx); 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, with long-term current use of insulin, macular edema presence unspecified, unspecified laterality, unspecified proliferative retinop* (CMS/HCC); Class 3 severe obesity due to excess calories without serious comorbidity with body mass index (BMI) of 40.0 to 44.9 in adult (CMS/HCC); Colon cancer screeningStart: 02-21-2024 End: 18-07-9403xrhlhzdkbxRNVZ EMANIHHOLZNot AvailableStart: 02-12-2024 End: 90-41-7116Owavedwjp Result EncounterSdonaldo Giordano MD Work Phone: noms External Department UnsolicitedStart: 02-12-2024 End: 49-73-4188Sbjzybwaz Result EncounterSdonaldo Giordano MD Work Phone: noms External Department UnsolicitedStart: 02-11-2024 End: 11-07-7857Nbh-patient / Non-visitUnc Health Physician [facility] Work Phone: Start: 01-30-2024 End: 87-49-9290Zdurgv outpatient visit 25 minutesSonya Mejia MARINE WATER TENDER Work Phone: noms CWM FMComment on above:Primary hypertension (CMS/HCC) (Primary Dx); Mixed hyperlipidemia (CMS/HCC); Environmental and seasonal allergies; Gastroesophageal reflux disease, unspecified whether esophagitis present; Anxiety; Major depressive disorder with single episode, remission status unspecified (CMS/HCC); Colon cancer screening; 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, with long-term current use of insulin, macular edema presence unspecified, unspecified laterality, unspecified proliferative retinop* (CMS/HCC); Class 3 severe obesity due to excess calories without serious comorbidity with body mass index (BMI) of 40.0 to 44.9 in adult (CMS/HCC); Anxiety and depression (CMS/HCC)Start: 01-30-2024 End: 13-91-1585btqssgsrmqRILO EMANIHHOLZNot AvailableStart: 01-30-2024 End: 36-20-1900Vgerzp flowsheetLisa Mejia MARINE WATER TENDER Work Phone: noms CWM FMStart: 01-30-2024 End: 98-27-4798Ayewsj flowsheetLisa Aichholz MARINE WATER TENDER Work Phone: noms CWM FMStart: 01-23-2024 End: 02-14-7006Cicbzwzcl encounterLisa Aichholz MARINE WATER TENDER Work Phone: noms CWM FMStart: 01-22-2024 End: 30-51-1767Zmlznxwlf Result EncounterLisa Aichholz MARINE WATER TENDER Work Phone: noms External Department UnsolicitedStart: 01-22-2024 End: 49-65-1450Bapspbghb Result EncounterLisa Aichholz MARINE WATER TENDER Work Phone: noms External Department UnsolicitedStart: 01-22-2024 End: 29-51-3524xanykavgikDsixfythgC[facility] Work Phone: Start: 01-22-2024 End: 61-50-4351Csehcgv encounter procedureUnc Health Physician [facility] Work Phone: Start: 12-17-2023 End: 65-97-4015bvpbeqzqepXhztoplapC[facility] Clinic [facility] Work Phone: Start: 12-17-2023 End: 32-88-1474Ofdtnsm encounter procedureUnc Health Physician [facility] Work Phone: Start: 11-26-2023 End: 98-41-2719egxifpevibYegjvjjkcC[facility] Clinic [facility] Work Phone: Start: 11-26-2023 End: 78-45-5604Nrjhhru encounter procedureFirmountain states health alliance [facility] Work Phone: Start: 10-11-2023 End: 83-67-7449rynkeffmnpFtrc J Aichholz Work Phone: [facility] Work Phone: Start: 10-11-2023 End: 88-99-5388Khfxusw encounter procedureLisa Aichholz Work Phone: [facility] Work Phone: Start: 08-21-2023 End: 33-37-2157hhfdrkjvssPjyrchjhMercy Emergency Department Work Phone: [facility] Work Phone: Start: 08-21-2023 End: 76-52-9141Kakhxxs encounter procedureServNovant Health [facility] Work Phone: [facility] C[facility]-Lab [place] Work Phone: Start: 08-21-2023 End: 91-50-4924fmqlmipcikJbxijcauMercy Emergency Department Work Phone: [facility] Work Phone: Start: 08-21-2023 End: 53-22-8814Behttes encounter procedureServNovant Health [facility] Medical Center Work Phone: [facility] Work Phone: Start: 08-07-2023 End: 80-71-4613Jktrsmm encounter procedureJucarlos Acevedo MD Work Phone: OphthalmologyComment on above: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 and traction retinal d etachments involving maculae, unspecified whether longterm insulin use (HCC) (Primary Dx); 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, bilateral; Nuclear sclerotic cataract, bilateralStart: 06-26-2023 End: 09-50-6358Zbflrcs encounter procedureServices [facility] Work Phone: [facility] Work Phone: Start: 66-21-7080Odgmew flowsheetLisa Emanihclyde MARINE WATER TENDER Work Phone: noms CW FMStart: 09-16-0705Uffwxs flowsheetLisa Aichholz MARINE WATER TENDER Work Phone: noms CWM FMStart: 06-07-2023 End: 94-88-8359Nzjagzw encounter procedureLisa Emanihholz MARINE WATER TENDER Work Phone: noms CWM FMComment on above:Encounter for subsequent annual wellness visit (AWV) in Medicare patient (Primary Dx); Encounter for screening mammogram for malignant neoplasm of breast; Primary hypertension ([facility]/HCC); Gastroesophageal reflux disease, unspecified whether esophagitis present; 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, with long-term current use of insulin, macular edema presence unspecified, unspecified laterality, unspecified proliferative retinop* (CMS/[facility]); Class 3 severe obesity due to excess calories without serious comorbidity with body mass index (BMI) of 40.0 to 44.9 in adult ([facility]/HCC); Anxiety and depression ([facility]); shelter (current) use of insulin (Z79.4); Colon cancer screeningStart: 09-02-4344Iyt-patient / Non-visitServices [facility] Work Phone: [facility] [place] Work Phone: Start: 05-28-2023 End: 09-48-9381zzdcgybvuyBjljyxfyPeaceHealth Work Phone: [facility] Work Phone: Start: 05-28-2023 End: 22-39-4785Mkdljdmhwu [facility] Work Phone: [facility] Work Phone: Start: 82-73-0944AxzzdqFxhz Aichholz MARINE WATER TENDER Work Phone: noms CWM FMComment on above:Mixed hyperlipidemia (CMS/HCC) (Primary Dx)Start: 02-19-2023(DM) DiabetesDeNewport Hospital Coordinated Care ClinicStart: 02-19-2023 End: 42-69-4639ubmgjbitblBlyfxfc Scally Other [employer]Frontier [employer] LATTO Other Start: 02-05-2023 End: 84-15-3125zkoofeefwuMrlbdgh Sterling Other [employer] Other Start: 88-24-9731Whczjassb encounterLeigh Annshriners hospital for childrenperico [facility]wh[facility] Coordinated Care ClinicStart: 01-16-2023 End: 69-66-4636chuxjofinlAvxxldu Scally Other no[employer] Other Start: 20-86-2922Uevlwnb evaluation of patient and reportDedianne Elloitt Coordinated Care ClinicStart: 12-14-2022 End: 84-67-1735gzyoumgyvgQvncvjq Scally Other noEn[employer] Other Start: 00-25-3915Cjeeawbsk encounterLeigh Annfranciscan health SterlingCorewell [facility] Coordinated Care ClinicStart: 12-11-2022 End: 32-43-3807znzpwdbjdqPxxkxim Scally Other noEn[employer] Other Start: 72-92-9777Jeshutorc encounterGlenna Quinones [facility] Coord[facility] Care ClinicStart: 12-06-2022 End: 00-80-7053uovpjsbduuRpangjvn [facility] Work Phone: [facility] Work Phone: Start: 12-06-2022 End: 56-38-6977Nfsnxln encounter procedureServices [facility] Work Phone: [facility] Ctr-Digestive Health Work Phone: Start: 12-04-2022 End: 77-56-3097Lrxpdvj encounter procedureServices [facility] Work Phone: [facility] Ctr-Ultrasound [place] Work Phone: Start: 11-21-2022(DM) DiabetesLeigh Annshriners hospital for childrenperico Elliott Coordinated Care ClinicStart: 11-21-2022 End: 80-74-7963kunbgqqclwGubfwak Scally Other [employer] Other Start: 74-45-7648Nprgxsyuqd [facility] Work Phone: [facility] Work Phone: Start: 11-20-2022 End: 53-37-5015zibhjdshvrJxms [employer] Other [employer] Other Start: 06-08-5981Hnbmuq outpatient new 30 minutesRyan ScovannerFPG GastroenterologyStart: 10-27-2022 End: 44-17-3452veuxudmqhiNyehjle Scally Other noEn[employer] Other Start: 86-72-2389Idonhurro encounterBradley Hospital Coordinated Care ClinicStart: 10-17-2022 End: 79-07-4062sbfmoqjberAhlxjvd Scally Other [employer] Other Start: 73-58-3430Qwueblz evaluation of patient and reportDeshriners hospital for childrenperico Elliott Coordinated Care ClinicStart: 10-10-2022 End: 45-37-3547vsncsjbojsJlffwul Scally Other [employer] Other Start: 26-27-6407Izmqzdpsr encounterBradley Hospital Coordinated Care ClinicStart: 87-19-3114ogfqmvuldqXAB SONYA JACKIE Facility:K6Lziln: 08-30-2022(DM) DiabetesDedianne KatzCira Coordinated Care ClinicStart: 08-30-2022 End: 90-46-8593jbmdifyptcVrgtfkt Scally Other [employer] Other Start: 08-11-2022 End: 15-43-1443echmrqkknuGXU SONYA JACKIEFacility:X2Ytips: 08-07-2022 End: 56-96-4219wimvlklfjwGZNDWTKI HANSENFacility:F0Uvfzb: 08-04-2022 End: 76-44-9671qjiqzhqcflIXP SONYA JACKIEFacility:W6Wbyzy: 13-26-5226Ovuokcwmbn RecurringRadha Jackie Work Phone: [facility] C[facility] Work Phone: Start: 20-80-4194Vgqzwja evaluation of patient and reportLeigh Annshriners hospital for childrenperico QuinonesUnc Health Coordinated Care ClinicStart: 07-19-2022 End: 00-03-0870lqxiifrnyyKseb J Aichholz Work Phone: [facility] Work Phone: Start: 07-19-2022 End: 32-00-6582Gjudlxv encounter procedureLisa Mejia Work Phone: [facility] Ctr-Lab [place] Work Phone: Start: 07-11-2022 End: 19-13-9180ubwgfckqfrTjryrgu Scally Other [employer] Other Start: 68-55-1501Nkdpdwplk encounterBradley Hospital Coordinated Care ClinicStart: 06-16-2022 End: 78-85-6600zltpuducnmYhdrxeg Scally Other [employer] Other Start: 89-09-5126Nknotfrtv encounterDeOsteopathic Hospital [facility] Coordinated Care ClinicStart: 06-09-2022 End: 00-63-7090sxlicjtfexLeauzbs Scally Other noEn[employer] Other Start: 38-17-4833Akblzfbzl encounterBradley Hospital Coordinated Care ClinicStart: 04-26-2022 End: 22-88-2797ewvgnmsawqQavqksh Scally Other [employer] Other Start: 50-18-6808Jsekgdu evaluation of patient and reportDeborah ScallyFirelands Coordinated Care ClinicStart: 03-14-2022 End: 44-38-9654swtkzedqkiFldlmzz Scally Other [employer]En[employer] Other Start: 53-59-1393Fpnpiox evaluation of patient and reportDeborah ScallyFirelands Coordinated Care ClinicStart: 02-16-2022(DM) DiabetesDeborah ScallyFirelands Coordinated Care ClinicStart: 02-16-2022 End: 18-88-2678fjwxlfnkhlPvdsazd Scally Other [employer] Other Start: 01-31-2022 End: 68-92-3720Cwpycir encounter Jose Monreal PA-C Work Phone: OphthalmologyComment on above: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 and traction retinal d etachments involving maculae, unspecified whether bus girl insulin use (HCC) (Primary Dx); Nuclear sclerotic cataract, bilateral; 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, bilateralStart: 01-26-2022 End: 83-63-9117lbbototwbjItjiqzw Scally Other [employer] Other Start: 10-87-1961Ctlaglk evaluation of patient and reportDeborah ScallyFirelands Coordinated Care ClinicStart: 09-27-2021(DM) DiabetesDeborah ScallyFirelands Coordinated Care ClinicStart: 09-27-2021 End: 85-41-2332hpywcmvpbqBzjusgq Scally Other [employer] Other Start: 08-26-2021 End: 76-55-8997sjjumhithxCebndcy Scally Other [employer] Other Start: 61-35-8812Kvazoqgcl encounterBradley Hospital Coordinated Care ClinicStart: 08-25-2021 End: 97-17-5305ybizckovazSzhnkva Scally Other [employer] Other Start: 28-03-1162Rfuqzbirj encounterDeOsteopathic Hospital of [facility] Coordinated Care ClinicStart: 08-17-2021 End: 01-70-7435plvfwhbuyyQyxazfa Scally Other [employer] Other Start: 46-49-1215Ppgpssy evaluation of patient and reportSaint Clare'S Hospital At [facility] SterlingAsc[facility] Coordinated Care ClinicStart: 08-03-2021 End: 33-39-9023vcawdzbtcxYjfhxfz Scally Other noEn[employer] Other Start: 05-43-3619Byzpcdslm encounterBradley Hospital Coordinated Care ClinicStart: 08-02-2021(DM) DiabetesBradley Hospital Coordinated Care ClinicStart: 08-02-2021 End: 71-74-4337prsalgjgebBieouea Scally Other no[employer] Other Start: 08-01-2021 End: 62-51-5984fsfcmhpnxkEptteml Scally Other [employer] Other Start: 00-90-6634Romiujsjz encounterBradley Hospital Coordinated Care ClinicStart: 07-18-2021 End: 28-74-6810dszlkefhmtSpwizau Scally Other [employer] Other Start: 86-12-1376Kehdwulwf encounterDeshriners hospital for childrenperico Katzly [facility] Coordinated Care ClinicStart: 07-05-2021(DM) DiabetesDefranciscan health Sterlingly [facility]wh[facility] Coordinated Care ClinicStart: 07-05-2021 End: 97-40-9716apiczwtrzzNzupfak Scally Other nort LATTO Other Start: 74-69-0169Bwtffozqw encounterDefranciscan health Sterlingly [facility] Coordinated Care ClinicStart: 06-07-2021 End: 67-92-6662dhfyrgbywvXopnwki Scally Other [employer]Frontier [employer] LAT[employer] Other Start: 96-28-5835Vytfwkwpp encounterLeigh Annshriners hospital for childrenperico Katzly [facility] Coordinated Care ClinicStart: 06-06-2021 End: 13-99-3628nxjyaabudkKhgnqnz Scally Other [employer]Front[employer] LAT[employer] Other Start: 46-74-1599Ethfpzcnl encounterGlenna [facility]whidbeyhealth [facility] Coordinated Care ClinicStart: 05-19-2021 End: 85-28-2343ybgqwrxtfoZmdiwle Scally Other [employer]Front[employer] LAT[employer] Other Start: 83-56-2914Whthmfmnu encounterLeigh Annshriners hospital for childrenperico Katz [facility] Coordinated Care ClinicStart: 05-10-2021 End: 76-76-9648vqeyzofofdKrcewhk Scally Other [employer]Front[employer] LAT[employer] Other Start: 39-11-5925Belxndajb encounterDedianne Katzly [facility] Coordinated Care ClinicStart: 04-27-2021 End: 33-69-2848eclzfsmowkHlumnqs Scally Other [employer] Other Start: 76-61-9293Fygrmzekd encounterDefranciscan health SterlingCorewell Health [facility] Coordinated Care ClinicStart: 04-12-2021 End: 15-16-0589floeuxlcgiBoeatcb Scally Other [employer]Front[employer] LAT[employer] Other Start: 49-63-6291Slgzgwdrc encounterBradley Hospital Coordinated Care ClinicStart: 04-11-2021(DM) DiabetesBradley Hospital Coordinated Care ClinicStart: 04-11-2021 End: 52-95-8833gfeyygqkmjFucmueg Scally Other [employer]Front[employer] LAT[employer] Other Start: 03-14-2021 End: 17-60-8064sypeioqpbmHzctsyb Scally Other noFront[employer] LAT[employer] Other Start: 73-17-0002Lymkwvrtz encounterBradley Hospital Coordinated Care ClinicStart: 09-06-2020 End: 07-01-4311Afmsfcl encounter procedureServices [employer] Work Phone: [phone]-Zfyuhh for Breast CareStart: 95-85-8050Mrnthvnoko RecurringServices [facility] Work Phone: [phone]-Bqtqgnky Care CenterStart: 91-25-6757Wgggd glucose normalLisa Aichholz Work Phone: [facility] Procedures DateProcedureProcedure DetailPerforming ClinicianStart: 12-01-2024 End: 71-73-2212Vnxswnlaxviw ophthalmic imaging retinaEllyse Conn PA-C Work Phone: Start: 25-49-5101Cctmb cultureLisa Aichholz Work Phone: Start: 03-89-7210Lhzadtf bacterial quanttative colony count urineLisa Aichholz [employer]INE WATER TENDER Work Phone: Start: 19-34-0654ZQX UA (CLEAN/CATCH) MICROSCOPIC IF INDICATELisa Aichholz MARINE WATER TENDER Work Phone: Start: 03-60-4588MYN CBC WITH AUTO DIFFLisa Aichholz MARINE WATER TENDER Work Phone: Start: 02-95-1501Vddee dip stick/tablet rgnt non-auto w/o micrscpLisa Jackie MARINE WATER TENDER Work Phone: Start: 34-22-0866UV TOMOSYNTHESIS SCREENING BILisa Jackie MARINE WATER TENDER Work Phone: Start: 30-30-0194UfhchvbeiyqZfqi Jackie MARINE WATER TENDER Work Phone: Start: 87-97-9910Dowqestv totalLisa Emanimount nittany medical centerz Work Phone: Start: 59-13-5347ARQ CMP (CMP) (FOR REMOTE [facility] USE) Generic External Data ProviderStart: 65-66-9762XosjkeebmtmTnyyfqj ProviderStart: 13-65-5286UavryahzibrRmcdxrd NILL Start: 46-17-5155Hjluxehpbgkx ophthalmic imaging retina Jason Acevedo MD Work Phone: Start: 39-86-1734Pvylyhqt identified in Urine by Kasey Giordano MD Work Phone: Start: 99-48-4871JFF CBC WITH AUTO DIFFLisa Shiloadalberto MARINE WATER TENDER Work Phone: Start: 62-19-4093CND MICROALB CREAT RATIO RANDOMLisa Emaniclyde MARINE WATER TENDER Work Phone: Start: 11-47-7984YAR UA (CLEAN/CATCH) MICROSCOPIC IF INDICATELisa Shiloadalberto MARINE WATER TENDER Work Phone: Start: 57-86-5519Mrbtjmueqatu ophthalmic imaging retinaJustchance Acevedo MD Work Phone: Start: 74-44-5586ZviiofloqzeFtso Emaniclyde MARINE WATER TENDER Work Phone: Start: 23-44-1912Bwsyvvpoux elastography of liver Services [facility] Work Phone: Start: 08-08-4329Fxoagtiflevmisr of liverServices [facility] Work Phone: Start: 98-16-6228AacrbaxpzwlOuob Jackie MARINE WATER TENDER Work Phone: Start: 01-31-2022 End: 32-62-7010Htqoszzxaefa ophthalmic imaging retinaSusannecharisma aRh ELAM Work Phone: Start: 21-37-4362Bhtpweiqm mammography of bilateral breastsServices [facility] Work Phone: Start: 18-04-9411Abwmvyejxby observation [Identifier] in Cervix by Cyto stainRadha Jackie MCADAMS Work Phone: Start: 61-81-1071Clivfje of laser assisted in situ keratomileusisS/P LASIK (laser assisted in situ keratomileusis)Glendy Monreal PA-C Work Phone: Start: 04-30-2017 End: 10-15-2023H/O: hysterectomyHistory of hysterectomy for cancerLisa Jackie MARINE WATER TENDER Work Phone: Start: 96-74-9327Cfvlrstwfpo observation [Identifier] in Cervix by Cyto stainSonya Joaquinclyde MARINE WATER TENDER Work Phone: Extraction of wisdom toothMichael NILL LaparoscopyMichael NILL Surgical procedure on eye proper using laserMichael NILL TonsillectomyMichael NILL Total abdominal hysterectomy with bilateral salpingo-oophorectomyMichael NILL Plan of Treatment DateCare ActivityDetailAuthorStart: 32-28-3410Goeue microalbumin profile DTaP,Tdap,Td Vaccine (2 - Td or Tdap)[facility] Hospitaltart: 26-30-6032Afbypxnwp for malignant neoplasm of colonNOMS HealthcareStart: 12-02-2025 End: 68-23-3453Zieivjo encounter xfgyybgpg86/03/2026 4:30 PM EDT [facility] [address] [place] [id number] Sonya Mejia NP [address] [place] [address] [facility]ITALtart: 21-10-3290Mcudvaxp screeningDilated Retinal ExamLaurel Bloomery ClinicStart: 08-05-2026Medicare Annual Wellness (AWV)Medicare Annual Wellness (AWV)[facility] HealthcareStart: 81-11-5855Wlgpfnwwx for malignant neoplasm of breastMammogramNOMS HealthcareStart: 06-18-2025 End: 84-22-7259MVJ ANGIOGRAPHY OU (BOTH EYES)OCT ANGIOGRAPHY OU (BOTH EYES) [facility] Imaging Routine 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, bilateral Nuclear sclerotic cataract, bilateral 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, unspecified whetherlong term insulin use (HCC) Expected: 06/18/2025, Expires: 11/25/2025[facility] HospitalComment on above:Expected: 06/18/2025, Expires: 11/25/2025Start: 06-18-2025 End: 86-26-1651BZN MACULA CIRRUS OU (BOTH EYES)OCT MACULA CIRRUS OU (BOTH EYES) [facility] Imaging Routine 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, bilateral Nuclear sclerotic cataract, bilateral 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 Acevedo 6 monthsOphthalmology Comment on above:Dr. Acevedo 6 monthsStart: 93-92-0678Dpjpmwln screeningDilated Retinal ExamWestern Reserve Hospitaltart: 14-68-7351Wowjpwhj screeningDiabetes: Retinopathy ScreeningNOVT HealthcareStart: 02-25-2025 End: 46-38-7320Oeebslk encounter koheczctp82/05/2025 1:20 PM EST Office Visit [facility] [address] [place] [address] Sonya Mejia, ABBE [address] [place] [address] [facility] FMStart: 42-02-2359Bghxgcwxfk A1c measurement Diabetes: Hemoglobin O4DZVTY HealthcareStart: 49-11-6943Lyyod screening for proteinDiabetes: Urine Protein ScreeningENCOMPASS HEALTH HealthcareStart: 12-22-2024 Influenza vaccinationInfluenza Vaccine (#1)[facility] HealthcareStart: 31-62-9372MQU TESTINGPAP TESTINGWestern Reserve Hospitaltart: 36-07-9684Zofxprjfk for malignant neoplasm of cervixPap TestingWestern Reserve Hospitaltart: 12-01-2024 End: 95-63-9093Qfvqemz encounter yxhooiqig28/11/2025 12:45 PM EDT Office Visit [facility] Ophthalmology [address] [address] Glendy Monreal PA-C [address] [place] [address] JANELLE Travis in 6 monthsOphthalmologyComment on above: JANELLE Travis in 6 monthsStart: 11-25-2024 End: 57-11-7801Xfxnybb encounter procedureNOMERCY HOSPITAL ADA – ADA FMComment on above:Primary hypertension (Primary Dx); Gastroesophageal reflux disease, unspecified whether esophagitis present; 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, with long-term current use of insulin, macular edema presence unspecified, unspecified laterality, unspecified proliferative retinop* (C* (HCC); Morbid (severe) obesity due to excess calories (CMS-HCC); Morbid obesity due to excess calories ([facility]-HCC); Encounter for subsequent annual wellness visit (AWV) in Medicare patient; Anxiety and depressionStart: 51-16-9325Zrwyelkn identified in Urine by Culture [facility]: 31-32-5240Ppmak cultureDoctors Hospitaltart: 10-28-2024 End: 98-80-2230Gwboina encounter zloaaioax38/08/2025 3:40 PM EDT Office Visit [facility] [address] [place] [address] Sonya Mejia NP [address] [place] [phone] [facility] FMComment on above:ArrivedStart: 10-28-2024 End: 29-79-3389Fprsyrf [Enzymatic activity/volume] in Serum or PlasmaAmylase Lab Routine Generalized abdominal pain Expected: 10/28/2024 (Approximate), Expires: 10/28/2025NOVT HealthcareComment on above:Expected: 10/28/2024 (Approximate), Expires: 10/28/2025Start: 10-28-2024 End: 75-38-1621Neciwulb identified in Urine by CultureUrine culture (clean catch) Microbiology Routine Generalized abdominal pain Expected: 10/28/2024 (Ap proximate), Expires: 10/28/2025[facility] HealthcareComment on above:Expected: 10/28/2024 (Approximate), Expires: 10/28/2025Start: 10-28-2024 End: 10-28-2025 reactive protein [Mass/volume] in Serum or PlasmaC-reactive protein Lab Routine Generalized abdominal pain Expected: 10/28/2024 (Approximate), Expires: 10/28/2025[facility] HealthcareComment on above:Expected: 10/28/2024 (Approximate), Expires: 10/28/2025Start: 10-28-2024 End: 27-62-0694ILN W Auto Differential panel - BloodCBC and differential Lab Routine Generalized abdominal pain Expected: 10/28/2024 (Approximate), Expires: 10/28/2025 Healthcare Work Phone: Comment on above:Expected: 10/28/2024 (Approximate), Expires: 10/28/2025Start: 10-28-2024 End: 22-79-1494Uqglvecbdazil metabolic 2000 panel - Serum or PlasmaComprehensive metabolic panel Lab Routine Generalized abdominal pain Expected: 10/28/2024 (Approximate), Expires: 10/28/2025[facility] HealthcareComment on above:Expected: 10/28/2024 (Approximate), Expires: 10/28/2025Start: 10-28-2024 End: 82-86-5721Gbbzaibqfck sedimentation rateSedimentation rate, automated Lab Routine Generalized abdominal pain Expected: 10/28/2024 (Approximate), Expires: 10/28/2025[place] HealthcareComment on above:Expected: 10/28/2024 (Approximate), Expires: 10/28/2025Start: 10-28-2024 End: 92-12-2992Umoqsq [Enzymatic activity/volume] in Serum or PlasmaLipase Lab Routine Generalized abdominal pain Expected: 10/28/2024 (Approximate), Expires: 10/28/2025[facility] HealthcareComment on above:Expected: 10/28/2024 (Approximate), Expires: 10/28/2025Start: 10-28-2024 End: 62-95-0091Flvmnpacfj complete panel - UrineUrinalysis with reflex microscopic (clean catch) Lab Routine Generalized abdominal pain Expected: (Approximate), Expires: 10/28/2025[facility] HealthcareComment on above: Expected: 10/28/2024 (Approximate), Expires: 10/28/2025Start: 10-28-2024 End: 31-07-7124VP Abdomen Single viewXR ABDOMEN 2 VIEW Imaging Routine Generalized abdominal pain Expected: 10/28/2024, Expires: 10/28/2025[facility] HealthcareComment on above:Expected: 10/28/2024, Expires: 10/28/2025Start: 09-24-2024 End: 53-00-3660Rlzhsty encounter gzbtesnzk78/04/2025 5:00 PM EDT Office Visit [facility] [address] [place] [address] Sonya Mejia NP [address] [place] [phone] [facility] FMStart: 31-04-7447Jksccwqwyh A1c measurement Diabetes: Hemoglobin W4DAJWG HealthcareStart: 08-21-2024 End: 13-83-5813FTU MACULA CIRRUS OU (BOTH EYES)OCT MACULA CIRRUS OU (BOTH EYES) OPHT Imaging Routine 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, bilateral Nuclear sclerotic cataract, bilateral 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, unspecified whether bus girl insulin use (HCC) Expected: 08/21/2024, Expires: 01/28/2025[facility] Work Phone: Comment on above:Expected: 08/21/2024, Expires: 01/28/2025Start: 06-41-7052Fotjoxah screeningWestern Reserve Hospitaltart: 08-05-2024 Screening for malignant neoplasm of breastMammogramNOVT HealthcareStart: 07-30-2024 End: 51-82-8284Ypsoikl encounter ozgjndfne40/09/2025 3:00 PM EDT Office Visit [facility] [address] [place] [phone] Sonya Mejia NP [address] [place] [phone] [facility] FMStart: 02-15-2025Medicare Annual Wellness (AWV) Medicare Annual Wellness (AWV)[facility] HealthcareStart: 48-01-2658Pidvcusjmc A1c measurementDiabetes: Hemoglobin O5GRTAC HealthcareStart: 05-01-2024 End: 82-96-5630Wprnazm encounter procedureNOMS [facility] FMComment on above:Primary hypertension ([facility]) (Primary Dx); Type 2 diabetes mellitus with diabetic cataract ([facility]); Type 2 diabetes mellitus 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 edema, unspecifiedeye ([facility]); Opioid abuse, in remission ([facility]); shelter (current) use of insulin ([facility]); Morbid (severe) obesity due to excess calories ([facility]); Body mass index (BMI) 40.0-44.9, adult ([facility]); Gastroesophageal reflux disease, unspecified whether esophagitis present; Adenocarcinoma of endometrium, stage 1 ([facility]); Class 3 severe obesity due to excess calories without serious comorbidity with body mass index (BMI) of 40.0 to 44.9 in adult ([facility]); 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, with long-term current use of insulin, macular edema presence unspecified, unspecified laterality, unspecified proliferative retinop* ([facility]); Anxiety and depression ([facility])Start: 50-96-4194Faxzw screening for protein Diabetes: Urine Protein ScreeningChristian HospitalStart: 42-44-4136Zudrqiiyya A1c measurementDiabetes: Hemoglobin J1WMQOKChristian HospitalStart: 02-21-2024 End: 90-76-1151Tnhtrjx encounter procedureNOMS [facility] FMComment on above:Arrived Start: 01-30-2024 End: 25-07-3120Tsfymki encounter procedureNOVT CW FMComment on above:Arrived Start: 39-10-1230Vvmbv-19 Vaccine ( season)Covid-19 Vaccine ( season)[facility] Hospitaltart: 39-87-0411Hhxfsousm vaccinationInfluenza Vaccine (#1)[facility] HealthcareStart: 98-15-5355Zuljlurj screeningDiabetes: Retinopathy ScreeningENCOMPASS HEALTH HealthcareStart: 10-15-2023 End: 59-89-8012Hwwytpi encounter yovsixaob74/24/2024 6:00 PM EDT [facility] [address] [place] [address] Sonya Mejia, ABBE [address] [place] [address] [facility] FMStart: 47-29-7135Pvnxzwrgmp A1c measurement Diabetes: Hemoglobin S0XVZMYChristian HospitalStart: 08-06-2023 End: 20-02-6822WE Breast - bilateral ScreeningBilateral screening mammogram Imaging Routine Encounter for screening mammogram for malignant neoplasm of breast Expected: 08/06/2023 (Approximate), Expires: 08/05/2024[facility] Work Phone: Comment on above:Expected: 08/06/2023 (Approximate), Expires: 08/05/2024Start: 12-61-5338Yadbdlojw for malignant neoplasm of breast MammogramChristian HospitalStart: 06-07-2023 End: 18-92-5904Pgwurlv encounter procedureNOMERCY H[facility] – ADA FMComment on above:Encounter for screening mammogram for malignant neoplasm of breast (Primary Dx)Start: 32-19-1808Wmltgblkro Health ScreeningBehavioral Health ScreeningGreene Memorial Hospital Start: 02-15-2023 End: 30-13-1595ZOO MACULA CIRRUS OU (BOTH EYES)OCT MACULA CIRRUS OU (BOTH EYES) OPHT Imaging Routine 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, unspecified whether longterm insulin use (HCC) Nuclear sclerotic cataract, bilateral 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, bilateral Expected: 02/15/2023, Expires: 07/25/2023[facility] Work Phone: comment on above:Expected: 02/15/2023, Expires: 07/25/2023Start: 82-17-6212Lexxlyodz C antibody, confirmatory testDILATED RETINAL EXAMWestern Reserve Hospitaltart: 56-51-1809Yirpqihgr for malignant neoplasm of cervixNOUniversity of Missouri Health CareStart: 45-85-9799NqztukojhDoctors Hospitaltart: 19-95-4328Fbtrmikjx for malignant neoplasm of colonWestern Reserve Hospitaltart: 59-27-8680OFLEQ-19 VACCINE (4 - Booster for Blayne series)COVID-19 VACCINE (4 - Booster for Blayne series)[facility]: 45-99-2251AZXZZNAMLZ ASSESSMENTDEPRESSION ASSESSMENTWestern Reserve Hospitaltart: 09-01-2020Medicare Annual Wellness VisitMedicare Annual Wellness VisitWestern Reserve Hospitaltart: 12-12-2019 Screening for malignant neoplasm of cervixChristian HospitalStart: 08-24-2019 Hepatitis B screeningURINE ALBUMIN:CREATININE RATIOWestern Reserve Hospitaltart: 17-22-8548HjbaszgolavAUCTCTPUGWjhybumob ClinicStart: 42-20-1346Bwduturqq for malignant neoplasm of breastMammogram ScreeningWestern Reserve Hospitaltart: 2007 HPV TESTINGHPV TESTINGWestern Reserve Hospitaltart: 23-06-5481Ovegcptor for malignant neoplasm of cervixChristian HospitalStart: 80-79-1471Zwskftnjw B Vaccine (1 of 3 - 19+ 3-dose series)Hepatitis B Vaccine (1 of 3 - 19+ 3-dose series)[facility]: 80-52-7850Ffxlzyyosnza vaccinationPneumococcal Vaccine (1 of 2 - PCV)[facility]: 08-74-1104Wbyjp microalbumin profileDTAP,TDAP,TD (1 - Tdap)[facility]: 11-57-7771Lvuqv screening for proteinDiabetes: Urine Protein ScreeningChristian HospitalStart: 68-20-7351GIMHCR PCP TEAM CHRONIC DISEASE VISITANNUAL PCP TEAM CHRONIC DISEASE VISITWestern Reserve Hospitaltart: 1995 Anxiety ScreeningAnxiety ScreeningWestern Reserve Hospitaltart: 12-40-4193IT CONTROLLED (<130/80)BP CONTROLLED (<130/80)[facility]rt: 48-28-4017Llrwjunxen ScreeningDepression ScreeningWestern Reserve Hospitaltart: 22-92-2495Lcruevsdo B surface antibody levelLDL CHOLESTEROLWestern Reserve Hospitaltart: 10-44-6916LQFYNLLQU C SCREENINGHEPATITIS C SCREENINGWestern Reserve Hospitaltart: 83-86-8930Unbqepebu C screeningHepatitis C ScreeningWestern Reserve Hospitaltart: 68-52-4169HNK SCREENINGHIV SCREENINGWestern Reserve Hospitaltart: 68-47-1418VHC screeningHIV ScreeningWestern Reserve Hospitaltart: comp foot exam completedDIABETIC FOOT EXAMWestern Reserve Hospitaltart: 33-26-6845Zpoqvxnu foot examinationDiabetic Foot ExamWestern Reserve Hospitaltart: 93-53-9260Gifsyqqn screeningDiabetes: Retinopathy ScreeningChristian HospitalStart: 79-08-8461ACRWIUQMHQQC (1 - PCV)PNEUMOCOCCAL (1 - PCV)[facility]: 24-24-1122Nsjruscetedw vaccinationPneumococcal Vaccine (1 of 2 - PCV)[facility]: 70-28-1485Pcepwunllh A1c lhzthtlpzdgNaB5ERjjbpfnlc ClinicStart: 58-86-3199Uqwtjopieh A1c/Hemoglobin.total in OnibeOKS5BCsjrcavkz ClinicStart: 65-99-7241Rvgvhetpew A1c measurementDiabetes: Hemoglobin L7FHERVChristian HospitalStart: 79-37-7825EOIBPQGTD B (1 of 3 - 3-dose series)HEPATITIS B (1 of 3 - 3-dose series)[facility] Hospitaltart: 02-22-1978Medicare Annual Wellness (AWV)Medicare Annual Wellness (AWV)[facility] HealthcareStart: 88-53-7068Ztlicourq for malignant neoplasm of colonChristian HospitalAdrenocorticotropic hormone measurementMary Rutan HospitalAlpha 1 antitrypsin [Mass/volume] in Serum or PlasmaMary Rutan HospitalAlpha 1 antitrypsin phenotyping [Identifier] in Serum or Plasma by ImmunofixationMary Rutan HospitalBacteria identified in Urine by CultureURINE CULTURE, ROUTINE Lab Routine 02/12/2024 5:00 PM [facility] Work Phone: End: 77-69-8455Gkztbv fundoscopyFUNDUS PHOTOS OU (BOTH EYES) OPHT Imaging Routine 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, unspecified whetherlong term insulin use (HCC) 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, bilateral 1 Occurrences starting 12/01/2024 until 05/25/2026[facility] HospitalComment on above:1 Occurrences starting 12/01/2024 until 05/25/2026 Comprehensive metabolic 2000 panel - Serum or PlasmaMary Rutan HospitalDehydroepiandrosterone sulfate levelMary Rutan Hospital Elastase.pancreatic [Mass/mass] in StoolMary Rutan Hospital Hepatitis C virus IgG Ab [Presence] in Serum or Plasma by ImmunoassayMary Rutan HospitalInsulin C-peptide measurementMary Rutan HospitalNoninvasive colorectal cancer DNA and occult blood screening [Presence] in StoolCologuard colon cancer screening Lab Routine Colon cancer screening Ordered: 06/07/2023[facility] HealthcareComment on above:Ordered: 06/07/2023 End: 54-29-6429HSB MACULA CIRRUS OU (BOTH EYES)OCT MACULA CIRRUS OU (BOTH EYES) OPHT Imaging Routine 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, unspecified whether bus girl insulin use (HCC) Posterior subcapsular polar age- related cataract, bilateral 1 Occurrences starting 12/01/2024 until 05/25/2026 [facility] Work Phone: comment on above:1 Occurrences starting 12/01/2024 until 05/25/2026Patient EducationHigh blood sugar in adults - ED discharge [facility] Work Phone: [facility] referralFulton [facility] Work Phone: [facility] Immunizations Immunization DateImmunizationNotesCare FrszttpjYstifagu84-59-5399kqftixber, seasonal, injectable, preservative Byron Giordano MD Work Phone: noUniversity of [facility] Health CareAeonejoduf06-36-2885qbblvhhrq virus vaccine, unspecified formulationLisa Aichholz [employer]INE W[employer] T[employer]ER Work Phone: noUniversity of [place] Health CarePeekgnbakd53-43-2886ptinibh toxoid, reduced diphtheria toxoid, and acellular pertussis vaccine, adsorbedLisa Aichholz [employer] W[employer] T[employer]ER Work Phone: noUniversity of [place] Health CareOhjnlmcdlp74-47-1651hdjmahzts, injectable, quadrivalent, preservative freeLisa Aichholz [employer] W[employer] TENDER Work Phone: noUniversity of [place] Health CareGvebuielcv19-08-4661imxydsecv virus vaccine, unspecified formulationLisa Aichholz [employer] WATER TENDER Work Phone: Christian HospitalBwmektoqbm96-77-0556YMGC-HoD-8 (COVID-19) mRNAMUL.ORD!l48988Xqcmwqa NILL [phone]-SvxwhCleveland Clinic 11-32-4809cfebidrfs, injectable, quadrivalent, preservative freeLisa Aichholz [employer] W[employer] T[employer]ER Work Phone: [facility] HospitalIblewvptzu82-57-7811HFNR-LrF-8 mRNA (hsvkerdqbhp-adrq-ezpzlma) vaccineMichael NILL [phone]-JzfowCleveland Clinic 04-40-0917JDTG-CoV-2, UnspecifiedLisa Aichholz [employer] W[employer] T[employer]ER Work Phone: Christian HospitalKmwixvbiri62-75-5714CMIE-FtT-7 (COVID-19) mRNA BNT-162b2 vaxMichael NILL [phone]-TvtseCleveland Clinic Comment on above:Result Comment: 2024-05-22: HJE7889-42-5237xmpetdupt, injectable, quadrivalent, preservative freeLisa Aichholz [employer] W[employer] Work Phone: Christian HospitalSxmiehwmry60-56-7562XUSSJ-04 Vaccine Blayne - Documentation Purposes OnlyDeshriners hospital for childrenperico Quinones Other [facility]03-11-2021SARS-CoV-2 (COVID-19) Ad26 vaccine, recombinantMichael NILL [phone]-TohncCleveland Clinic 33-27-9828jejpsdldf, injectable, quadrivalent, preservative freeLisa Aichholz [employer] W[employer] T[employer]ER Work Phone: Christian HospitalVxwlkeonyy53-50-1708unpcsvmyz, injectable, quadrivalent, preservative freeJulianne Rah ELAM Work Phone: cKeenan Private HospitalJzcgln95-52-6627icquwrobs, injectable, quadrivalent, preservative freeJulianne Baraona PA-C Work Phone: cKeenan Private HospitalYdfmbl07-07-2101jhbqbyfoi, injectable, quadrivalent, preservative freeLisa Aichholz [employer] Work Phone: Christian HospitalWqhpddhkyt31-43-4073mqsoddpud, seasonal, injectableJulianne Baraona PA-C Work Phone: cKeenan Private HospitalYfpdvc12-61-5981bqynozgrc, seasonal, injectable, preservative freeLisa Aichholz [employer] W[employer] T[employer]ER Work Phone: Christian HospitalSbtkdiznsn57-71-0958zdadllmnr, seasonal, injectable, preservative freeLisa Aichholz [employer] T[employer]ER Work Phone: [facility] Payers DatePayer CategoryPayerPolicy ID2022Medicaid [id number] 2020Medicare [id number] 2..840.1.645267.3.57[id number] 2..840.1.962394.3.57[id number] 2..840.1.824456.3.57[id number] 2.16.840.1.241403.3.57[id number] 2.16.840.1.981857.3.57[id number] 2.16.840.1.158017.3.57[id number] 2.16.840.1.020716.3.57[id number] 2.0.1.757200.3.57[id number] 2.0.1.920807.3.57[id number] 2.0.1.848209.3.57[id number] 2.0.1.150132.3.579.2.1259 [id number] 1958Medicare [id number] [id number]-[id number] [id number]-kwzIxvm Pay [id number] 2.1.448289.19 Social History DateTypeDetailFacilityStart: 05-15-2017 End: 96-00-8608Cgxpieo smoking status NHISEx-smoker (finding)[facility] Start: 77-50-1153Euw Assigned At [facility] Start: 04-01-2023 End: 71-86-9453Jnk Assigned At [facility] [place]Start: 04-23-2002 End: 89-45-3846Zbqbtdd of tobacco useCurrent smokerWestern Reserve Hospitaltart: 04-23-2002 End: 46-47-6283Iwxtuqd of tobacco useCigarette SmokerWestern Reserve Hospitaltart: 05-15-2017 End: 75-62-5713Ktbylvz use and exposureSmokeless tobacco non-userWestern Reserve Hospitaltart: 01-31-2022 End: 29-65-4508Izhgzfi intakeCurrent non-drinker of alcohol (finding)[facility] Hospitaltart: 38-29-7687Oty Assigned At BirthNot on fileWestern Reserve Hospitaltart: 12-26-2021 End: 38-92-8945Lvhtlsoh to SARS-CoV-2 (event)Not sureWestern Reserve Hospitaltart: 04-02-2023 End: 35-14-9921Qltblhaqye smoked current (pack per day) - Reported0.5N[facility] HealthcareStart: 04-02-2023 End: 09-22-1862Awirkgk intakeCurrent drinker of alcohol (finding)[facility] Within the last year, have you been afraid of your partner or ex-partner?NoNOMS HealthcareAre you now , , , , never or living with a partner?Never marriedNOMS HealthcareHow often to you have a drink containing alcohol?Monthly or lessNOMS HealthcareHow many standard drinks containing alcohol do you have on a typical day?1 or 2NOMS HealthcareHow often do you have 6 or more drinks on 1 occasion?NeverNOMS HealthcareDo you feel stress - tense, restless, nervous, or anxious, or unable to sleep at night because yourmind is troubled all the time - these days [OSQ]To some extentNOMS Healthcare(I/We) worried whether (my/our) food would run out before (I/we) got money to buy more.Never trueNOMS HealthcareStart: 72-39-3359Ug the past 12 months, has lack of transportation kept you from medical appointments or from getting medications?NoNOMS HealthcareStart: 38-18-2216Amvxwxx Comment1 beer per month. 1cup of coffee dailyNOMS HealthcareHow hard is it for you to pay for the very basics like food, housing, medical care, and heatingSomewhat hardNOVT HealthcareStart: 03-03-2024 End: 80-83-3180PyoVvqvtk (finding)[facility] Hospitaltart: 77-91-3840Ujcjozm smoking status NHISNever smoked tobacco (finding)[facility] Rutan HospitalNEGATED: Highlighted rowStart: NINFHistory of tobacco use Passive smokerNOVT HealthcareNEGATED: Highlighted [facility] HospitalNEGATED: Highlighted [facility] Medical Equipment Procedure CodeEquipment CodeEquipment Original TextEquipment IdentifierDates [id number], [id number]: 87-87-6937Oxs [employer] Intraocular Vision System C3f8 125gm - [id number]: 56-18-2434Wyq [employer] Intraocular Vision System C3f8 125gm - [id number]: 10-10-2017 Goals DatePatient GoalDesired Activity/State Functional Status DgwyCratawbnscQbquoiHhcgltqd21-08-2634Xsfikht Health Questionnaire 2 item (PHQ- 2) [Reported]Christian HospitalIgpkeppekt78-61-8369Lqivtiffkd StatusN/AFisherPiedmont [facility]ters[facility] Medical Center02-04-2025Functional StatusN/[facility]athonBl[facility] [place] Clinical Notes 08-02-2016 to 12-01-2024 Note Date & TrftGeijOuccartq54-26-2584 NoteDate of Procedure 12/01/2024. Attractions Associate Information Packaging Associate: ANIKA. Disc Right Eye Normal. Macula Right Eye Hemorrhage. Periphery Right Eye Laser scars, Hemorrhage. Left Eye Laser scars. Notes Poor view WAUUQPE55-15-8777 NoteDate of Procedure 12/01/2024. Attractions Associate Information Packaging Associate: ANIKA. Imaging Comments: Poor/limited view OS due to cornea/lens/vitreous opacity . OCT Macula Interpretation Right Eye Abnormal foveal contour. Findings include Epiretinal membrane; Negative for Intraretinal fluid, Subretinal fluid. Left Eye Abnormal foveal contour. Interval Change Right Eye Stable. 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 Acevedo in [...] LP (HM preop and fluctates HM/CF) - No view on OCT today - Hazy view on exam - Call with changes in vision - VA LP - Monitor - Follow up with Dr. 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 - Starting to limit view of posterior pole. - In the future, considering CE/IOL for best monitoring of retina OS I have seen and examined this patient. I have confirmed and edited as necessary the relevant HPI, ophthalmic history, medications, ROS, and the neuro [...] if new symptoms develop. documented in this encounterGreene [facility] Hospital08-11-2025 NoteHNO ID: [id number] Author: GLENDY MONREAL PA-C Service: ? 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 Acevedo in [...] LP (HM preop and fluctates HM/CF) - No view on OCT today - Hazy view on exam - Call with changes in vision - VA LP - Monitor - Follow up with Dr. 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 - Starting to limit view of posterior pole. - In the future, considering CE/IOL for best monitoring of retina OS I have seen and examined this patient. I have confirmed and edited as necessary the relevant HPI, ophthalmic history, medications, ROS, and the neuro [...] noted below, or sooner if new symptoms develop.[facility]08-05-2025 History of Present illness Narrative* Sonya Mejia, ABBE - 11/25/2024 3:00 PM EDT Images from the original note were not included. Tasha Paul is a 49 y.o. female presents with chief complaint of No chief complaint on file. HPI: Diet:balanced, not a lot of fruit Activity: rebound trampoline, pool Mental Health Concerns:depression/anxiety Falls in the last year: no Still driving: cannot drive d/t vision Do you pay your bills: ,yes Any hearing problems: no Any Vision problems: yes, last exam 06/17 Any Hospitalizations in the last year: 01/2024 diabetes related Specialist: diabetic, eye doctor, HCPOA/Living Will: HCPOA, no living will Concerns: none SUBJECTIVE: MEDICATIONS: Current Outpatient Medications Medication Instructions [...] discharge and redness. Respiratory: Negative for cough, shortness of breath [...] Diagnosis Date Adenocarcinoma of endometrium, stage 1 ([facility]) 04/30/2017 Total Hysterectomy Anxiety and depression 06/07/2023 Class 3 severe obesity due to excess calories without serious comorbidity with body mass index (BMI) of 40.0 to 44.9 in adult ([facility]) 04/02/2023 Diverticulitis of intestine without perforation or abscess without bleeding, unspecified part of intestinal tract 06/07/2023 Fatty liver History of hysterectomy for cancer 04/30/2017 HLD (hyperlipidemia) 05/24/2023 Learning disabilities 06/07/2023 Narcotic abuse in remission ([facility]) 06/07/2023 Partial blindness 06/07/2023 Type 2 diabetes mellitus with diabetic retinopathy ([facility]) 06/07/2023 without macular edema, unspecified retinopathy severity Type 2 diabetes mellitus, with long-term current use of insulin ([facility]) 04/02/2023 Past Surgical History: Procedure Laterality [...] father, and mother. OBJECTIVE: Visit Vitals BP 124/84 (BP Location: Left arm, Patient Position: Sitting, BP Cuff Size: Large adult) Pulse 98 Temp 98.1 F (Temporal) Resp 18 Wt 263 lb SpO2 96% BMI 42.45 kg/m Smoking Status Former BSA 2.35 m Physical Exam Vitals and nursing note reviewed. Constitutional: General: She is not in acute distress. Appearance: Normal appearance. She is obese. She is not ill-appearing. HENT: Head: Normocephalic and atraumatic. Right Ear: [...] Items Addressed This Visit Major depressive disorder Relevant Medications sertraline (Zoloft) 50 MG tablet 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 disease) Recommendations: freq small meals, nothing to eat or drink at least 2 hours prior to bed, limit caffeine, alcohol, as well as spicy foods Meds to limit or avoid if possible: NSAIDS Elevate HOB if possible Recommend weight loss Med: omeprazole Hypertension - Primary Please check blood pressure daily and record DASH diet Limit caffeine Take medication as directed Contact office if chest pain, pressure, dizziness, shortness of breath, swelling legs Recommend slow position changes Current meds: amlodipine, yessy Relevant Medications lisinopril 40 MG tablet Type 2 diabetes mellitus, with long-term current use of insulin (HCC) Follows w diabetes mgmt for this HLD (hyperlipidemia) Relevant Medications atorvastatin (Lipitor) 80 MG tablet Anxiety and depression Current med: sertraline Encounter for subsequent annual wellness visit (AWV) in Medicare patient Reviewed Ht/Wt/BMI Recommend eye exam yearly Recommend dental exams twice a year Balance work/leisure activities Exercises is recommended most days of the week (appropriate as chronic conditions allow) Follow up yearly and prn RESOLVED: Morbid (severe) obesity due to excess calories (CMS-HCC) Morbid obesity due to excess calories (CMS-HCC) Discussed with patient their BMI (actual, verses recommended). We have also discussed lifestyle modifications: attempts to perform physical activity as chronic conditions allow, also to monitor dietary intake: increasing protein/fruits/veggies and lowering carb intake (unless contraindicated). Limit sodas, juices, and sugary drinks. She does take GLP 1 for DM Other Visit Diagnoses Anxiety Relevant Medications sertraline (Zoloft) 50 MG tablet * Sonya Mejia NP - 11/25/2024 7:13 AM EDTAssociated Problem(s): Anxiety and depression Current med: sertraline * Sonya Mejia NP - 11/25/2024 7:12 AM EDTAssociated Problem(s): Encounter for subsequent annual wellness visit (AWV) in Medicare patient Reviewed Ht/Wt/BMI Recommend eye exam yearly Recommend dental exams twice a year Balance work/leisure activities Exercises is recommended most days of the week (appropriate as chronic conditions allow) Follow up yearly and prn * Sonya Mejia NP - 11/25/2024 7:12 AM EDTAssociated Problem(s): Morbid obesity due to excess calories (CMS-HCC) Discussed with patient their BMI (actual, verses recommended). We have also discussed lifestyle modifications: attempts to perform physical activity as chronic conditions allow, also to monitor dietary intake: increasing protein/fruits/veggies and lowering carb intake (unless contraindicated). Limit sodas, juices, and sugary drinks. She does take GLP 1 for DM * Sonya Mejia NP - 11/25/2024 7:11 AM EDTAssociated Problem(s): Type 2 diabetes mellitus, with long-term current use of insulin (HCC) Follows w diabetes mgmt for this * Sonya Mejia NP - 11/25/2024 7:10 AM EDTAssociated Problem(s): 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 disease) Recommendations: freq small meals, nothing to eat or drink at least 2 hours prior to bed, limit caffeine, alcohol, as well as spicy foods Meds to limit or avoid if possible: NSAIDS Elevate HOB if possible Recommend weight loss Med: omeprazole * Sonya Mejia NP - 11/25/2024 7:10 AM EDTAssociated Problem(s): Generalized abdominal pain DD: gastritis, diverticulitis, pancreatitis, gall bladder, Check labs, consider GBUS No acute sxs on PE * Sonya Mejia NP - 11/25/2024 7:09 AM EDTAssociated Problem(s): Hypertension Please check blood pressure daily and record DASH diet Limit caffeine Take medication as directed Contact office if chest pain, pressure, dizziness, shortness of breath, swelling legs Recommend slow position changes Current meds: amlodipine, yessy documented in this encounterChristian [id number] Evaluation note* Diagnosis Onset Date Resolution Status Admit Date ADHD acuteJuly 2024 12:51pmBMI 40.0-44.9, adultacuteJuly 2024 12:51pm Fatty liveracuteJuly 2024 12:51pm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 disease) acuteJuly 2024 12:51pmHLD (hyperlipidemia)acuteJuly 2024 12:51pmHTN (hypertension)acuteJuly 2024 12:51pmHypercortisolismacuteJuly 2024 12:51pmLong term current use of insulinacuteJuly 2024 12:51pmNoncompliance with medication regimenacuteJuly 2024 12:51pmRetinopathy of both eyes acuteJuly 2024 12:51pmType 2 diabetes mellitus with hyperglycemiaacuteJuly 2024 12:51pmWeight gainacuteJuly 2024 12:51pm [facility] Work Phone: 1(170) 941-924207-08-2025 History of Present illness Narrative* Sonya Mejia NP - 10/28/2024 6:23 PM EDTAssociated Problem(s): Morbid (severe) obesity due to excess calories ([facility]) >>ASSESSMENT AND PLAN FOR CLASS 3 SEVERE OBESITY DUE TO EXCESS CALORIES WITHOUT SERIOUS COMORBIDITY WITH BODY MASS INDEX (BMI) OF 40.0 TO 44.9 IN ADULT ([facility]) WRITTEN ON 05/01/2024 6:57 AM BY [...] mellitus, with long-term current use of insulin (HCC) Sugars less than 150 Is taking meds [...] Diagnosis Date Adenocarcinoma of endometrium, stage 1 ([facility]) 04/30/2017 Total Hysterectomy Anxiety and depression 06/07/2023 Class 3 severe obesity due to excess calories without serious comorbidity with body mass index (BMI) of 40.0 to 44.9 in adult ([facility]) 04/02/2023 Diverticulitis of intestine without perforation or abscess without bleeding, unspecified part of intestinal tract 06/07/2023 Fatty liver History of hysterectomy for cancer 04/30/2017 HLD (hyperlipidemia) 05/24/2023 Learning disabilities 06/07/2023 Narcotic abuse in remission ([facility]) 06/07/2023 Partial blindness 06/07/2023 Type 2 diabetes mellitus with diabetic retinopathy ([facility]) 06/07/2023 without macular edema, unspecified retinopathy severity Type 2 diabetes mellitus, with long-term current use of insulin ([facility]) 04/02/2023 Past Surgical History: Procedure Laterality [...] Size: Large adult) Pulse 91 Temp 98.5 F (Temporal) Resp 18 Wt 253 lb 6.4 oz SpO2 94% BMI 40.90 kg/m Smoking Status Former BSA 2.31 m Physical Exam Vitals and nursing note [...] mellitus, with long-term current use of insulin ([facility]) Sugars less than 150 Is taking meds as directed Environmental and seasonal allergies Relevant Medications loratadine (Claritin) 10 MG tablet Morbid (severe) obesity due to excess calories ([facility]) >>ASSESSMENT AND PLAN FOR CLASS 3 SEVERE OBESITY DUE TO EXCESS CALORIES WITHOUT SERIOUS COMORBIDITY WITH BODY MASS INDEX (BMI) OF 40.0 TO 44.9 IN ADULT ([facility]) WRITTEN ON 05/01/2024 6:57 AM BY [...] POCT Urinalysis dipstick (Completed) documented in this [facility]07-08-2025 Instructions* Patient Instructions* Sonya Mejia NP - 10/28/2024 3:40 PM EDT Check xrays and labs documented in this [facility]04-22-2025 Evaluation note* Diagnosis Onset Date Resolution Status Admit Date ADHD acuteApril 2024 12:55pmBMI 40.0-44.9, adultacuteApril 2024 12:55pm Fatty liveracuteApril 2024 12:55pm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 disease) acuteApril 2024 12:55pmHLD (hyperlipidemia)acuteApril 2024 12:55pm HTN (hypertension)acuteApril 2024 12:55pmHypercortisolismacuteApril 2024 12:55pmLong term current use of insulinacuteApril 2024 12:55pm Noncompliance with medication regimenacuteApril 2024 12:55pmRetinopathy of both eyesacuteApril 2024 12:55pmType 2 diabetes mellitus with hyperglycemiaacuteApril 2024 12:55pmWeight gainacuteApril 2024 12:55pm [facility] Work Phone: 1(149) 631-218504-22-2025 Evaluation note* Diagnosis Onset Date Resolution Status Admit Date ADHD acuteApril 2024 12:55pmBMI 40.0-44.9, adultacuteApril 2024 12:55pm Fatty liveracuteApril 2024 12:55pm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 disease) acuteApril 2024 12:55pmHLD (hyperlipidemia)acuteApril 2024 12:55pm HTN (hypertension)acuteApril 2024 12:55pmHypercortisolismacuteApril 2024 12:55pmLong term current use of insulinacuteApril 2024 12:55pm Noncompliance with medication regimenacuteApril 2024 12:55pmRetinopathy of both eyesacuteApril 2024 12:55pmType 2 diabetes mellitus with hyperglycemiaacuteApril 2024 12:55pmWeight gainacuteApril 2024 12:55pmType 2 diabetes mellitus with hyperglycemiaacuteJune 2024 12:50pm [facility] Work Phone: 1(882) 125-561004-22-2025 Evaluation note* Diagnosis Onset Date Resolution Status Admit Date ADHD acuteApril 2024 12:55pmBMI 40.0-44.9, adultacuteApril 2024 12:55pm Fatty liveracuteApril 2024 12:55pm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 disease) acuteApril 2024 12:55pmHLD (hyperlipidemia)acuteApril 2024 12:55pm HTN (hypertension)acuteApril 2024 12:55pmHypercortisolismacuteApril 2024 12:55pmLong term current use of insulinacuteApril 2024 12:55pm Noncompliance with medication regimenacuteApril 2024 12:55pmRetinopathy of both eyesacuteApril 2024 12:55pmType 2 diabetes mellitus with hyperglycemiaacuteApril 2024 12:55pmWeight gainacuteApril 2024 12:55pmType 2 diabetes mellitus with hyperglycemiaacuteJune 2024 12:50pm ADHDacuteJuly 2024 12:51pmBMI 40.0-44.9, adultacuteJuly 2024 12:51pm Fatty liveracuteJuly 2024 12:51pm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 disease) acuteJuly 2024 12:51pmHLD (hyperlipidemia)acuteJuly 2024 12:51pmHTN (hypertension)acuteJuly 2024 12:51pmHypercortisolismacuteJuly 2024 12:51pmLong term current use of insulinacuteJuly 2024 12:51pmNoncompliance with medication regimenacuteJuly 2024 12:51pmRetinopathy of both eyes acuteJuly 2024 12:51pmType 2 diabetes mellitus with hyperglycemiaacuteJuly 2024 12:51pmWeight gainacuteJuly 2024 12:51pm [facility] Work Phone: 1(889) 799-790002-27-2025 Evaluation note* Diagnosis Onset Date Resolution Status Admit Date ADHD acuteFebruary 2024 2:53pmBMI 40.0-44.9, adultacuteFebruary 2024 2:53pmFatty liveracuteFebruary 2024 2:53pm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 disease)acuteFebruary 2024 2:53pmHLD (hyperlipidemia)acuteFebruary 2024 2:53pmLong term current use of insulinacuteFebruary 2024 2:53pm Noncompliance with medication regimenacuteFebruary 2024 2:53pmRetinopathy of both eyesacuteFebruary 2024 2:53pmType 2 diabetes mellitus with hyperglycemiaacuteFebruary 2024 2:53pmWeight gainacuteFebruary 2024 2:53pmADHDacuteApril 2024 12:55pmBMI 40.0-44.9, adultacuteApril 2024 12:55pmFatty liveracuteApril 2024 12:55pm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 disease)acuteApril 2024 12:55pmHLD (hyperlipidemia)acuteApril 2024 12:55pmLong term current use of insulinacuteApril 2024 12:55pm Noncompliance with medication regimenacuteApril 2024 12:55pmRetinopathy of both eyesacuteApril 2024 12:55pmType 2 diabetes mellitus with hyperglycemiaacuteApril 2024 12:55pmWeight gainacuteApril 2024 12:55pm [facility] Work Phone: 1(114) 377-208202-11-2025 NoteDate of Procedure 06/03/2024. OCT Macula Interpretation Right Eye Abnormal foveal contour. Findings include Epiretinal membrane; Negative for Intraretinal fluid, Subretinal fluid. Left Eye Abnormal foveal contour. Interval Change Right Eye Stable. Notes Poor view [id number] NoteHNO ID: [id number] Author: JASON ACEVEDO MD Service: ? Author [...] Informed pt above may require following with PCP/chief radiologic technologist - DFE shows quiescence - Reviewed RTC [...] and agree with all of its relevant components.[facility]02-11-2025 History of Present illness Narrative* Jason Acevedo MD - 06/03/2024 9:37 AM EST The documentation for the note below was [...] Informed pt above may require following with PCP/chief radiologic technologist - DFE shows quiescence - Reviewed RTC [...] of its relevant components. documented in this [facility]Gre[facility] NoteGeneral Surgery Office/Clinic Note Chief Complaint consultation for colonoscopy HPI [...] and laparoscopy; no previous colonoscopy; no asa orNSAID use; no tobacco use; no fmhx of GI malignancy or IBD. Review of Systems PHQ Score Initial Depression Screen Score: 0 SCORE ROS - Provider Constitutional: no fever, no sweats, no weight loss. Eyes: yes glasses, no blurred vision, no visual loss. ENMT: no dentures, no hoarseness, no swallowing difficulties, no hearing loss, no ear infection(s),no nose bleeds. Cardiovascular: normal blood pressure, no [...] per day. Previous jamie (more content not included)...[facility] HospitalComment on above:Result Comment: Electronically Signed By: RAMILA APODACA, Donell Nix\.caro\Date and Time Signed: 05/27/24 14:40 [id number] Evaluation note* Diagnosis Onset Date Resolution Status Admit Date Type 2 diabetes mellitus with hyperglyce [facility] 2024 9:47am [facility] Work Phone: 1(975) 192-508101-09-2025 History of Present illness Narrative* Sonya Mejia NP - 05/01/2024 2:35 PM ESTAssociated Problem(s): Colon [...] Morbid (severe) obesity due to excess calories ([facility]) >>ASSESSMENT AND PLAN FOR CLASS 3 SEVERE OBESITY DUE TO EXCESS CALORIES WITHOUT SERIOUS COMORBIDITY WITH BODY MASS INDEX (BMI) OF 40.0 TO 44.9 IN ADULT ([facility]) WRITTEN ON 05/01/2024 6:57 AM BY [...] Diagnosis Date Adenocarcinoma of endometrium, stage 1 ([facility]) 04/30/2017 Total Hysterectomy Anxiety and depression ([facility]) 06/07/2023 Class 3 severe obesity due to excess calories without serious comorbidity with body mass index (BMI) of 40.0 to 44.9 in adult ([facility]) 04/02/2023 Diverticulitis of intestine without perforation [...] Items Addressed This Visit Major depressive disorder ([facility]) Relevant Medications sertraline (Zoloft) 50 MG tablet 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 disease) Recommendations: freq small meals, nothing to eat or drink at least 2 hours prior to bed, limit caffeine, alcohol, as well as spicy foods Meds to limit or avoid if possible: NSAIDS Elevate HOB if possible Recommend weight loss Med: omeprazole Relevant Medications omeprazole (PriLOSEC) [address] capsule Hypertension ([facility]) - Primary Please check blood pressure daily and record DASH diet Limit caffeine Take medication as directed Contact office if chest pain, pressure, dizziness, shortness of breath, swelling legs Recommend slow position changes Current meds: amlodipine, yessy Relevant Medications lisinopril 40 MG tablet Type 2 diabetes mellitus, with long-term current use of insulin ([facility]) Check blood sugars daily, notify if [...] to follow with diabetic provider HLD (hyperlipidemia) ([facility]) Relevant Medications atorvastatin (Lipitor) 80 MG tablet Adenocarcinoma of endometrium, stage 1 ([facility]) Had total hysterectomy 04/2017 Follow with BIOLOGICAL SCIENCE TECHNICIAN FISH: no, have been released with no follow up from BIOLOGICAL SCIENCE TECHNICIAN FISH No vag bleeding, no pelvic pain Anxiety and depression ([facility]) Continue current meds Colon cancer screening [...] Type 2 diabetes mellitus with diabetic cataract ([facility]) Continue with eye exams as scheduled Type 2 diabetes mellitus 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 edema, unspecifiedeye ([facility]) Continue w eye doctor Body mass index (BMI) 40.0-44.9, adult ([facility]) Morbid (severe) obesity due to excess calories ([facility]) >>ASSESSMENT AND PLAN FOR CLASS 3 SEVERE OBESITY DUE TO EXCESS CALORIES WITHOUT SERIOUS COMORBIDITY WITH BODY MASS INDEX (BMI) OF 40.0 TO 44.9 IN ADULT ([facility]) WRITTEN ON 05/01/2024 6:57 AM BY SONYA MEJIA NP Discussed with patient their BMI (actual, verses recommended). We have also discussed lifestyle modifications: attempts to perform physical activity as chronic conditions allow, also to monitor dietary intake: increasing protein/fruits/veggies and lowering carb intake (unless contraindicated). Limit sodas, juices, and sugary drinks. 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) Continues with diabetic provider Opioid abuse, in remission ([facility]) Other Visit Diagnoses Class 3 severe obesity due to excess calories without serious comorbidity with body mass index (BMI) of 40.0 to 44.9 in adult (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) Continues with diabetic provider * Sonya Mejia NP - 05/01/2024 7:01 AM ESTAssociated Problem(s): Anxiety and depression ([facility]) Continue current meds * Sonya Mejia NP - 05/01/2024 7:01 AM ESTAssociated Problem(s): Type 2 diabetes mellitus, with long-term current use of insulin ([facility]) Check blood sugars daily, notify if [...] diabetic retinopathy without macular edema, unspecified eye ([facility]) Continue w eye doctor * Sonya Mejia NP - 05/01/2024 6:58 AM ESTAssociated Problem(s): Type 2 diabetes mellitus with diabetic cataract ([facility]) Continue with eye exams as scheduled * Sonya Mejia NP - 05/01/2024 6:57 AM ESTAssociated Problem(s): Class 3 severe obesity due to excess calories without serious comorbidity with body mass index (BMI) of 40.0 to 44.9 in adult ([facility]) (Deleted) Discussed with patient their BMI [...] ESTAssociated Problem(s): Adenocarcinoma of endometrium, stage 1 ([facility]) Had total hysterectomy 04/2017 Follow with BIOLOGICAL SCIENCE TECHNICIAN FISH: no, have been released with no follow up from BIOLOGICAL SCIENCE TECHNICIAN FISH No vag bleeding, no pelvic pain * [...] - 05/01/2024 6:55 AM ESTAssociated Problem(s): Hypertension ([facility]) Please check blood pressure daily and record DASH diet Limit caffeine Take medication as directed Contact office if chest pain, pressure, dizziness, shortness of breath, swelling legs Recommend slow position changes Current meds: amlodipine, yessy documented in this encounterChristian [id number] Instructions* Patient Instructions* Sonya Mejia NP - 05/01/2024 2:[address] Mcgrath general surgeon, for colonscopy, [facility] a referral, if no call in 2 weeks, call me to let me know documented in this encounterChristian [id number] Evaluation note* Diagnosis Onset Date Resolution Status Admit Date [facility] 12:56pmBMI 40.0-44.9, adultacuteNovb[facility] 2023 12:56pmFatty liveracuteNovb[facility] 2023 12:56pm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 disease)acuteNovb[facility] 2023 12:56pmHLD (hyperlipidemia)acuteNovb[facility] 2023 12:56pmLong term current use of insulinacuteF[facility] 2023 12:56pm Noncompliance with medication regimenacuteF[facility]ming [facility] 2023 12:56pmRetinopathy of both eyesacuteF[facility] 2023 12:56pmType 2 diabetes mellitus with hyperglycemiaacuteFleming [facility] 2023 12:56pmWeight gainacuteFleming [facility] Hospital 2023 12:56pm [facility] Work Phone: 1(421) 626-300910-31-2024 History of Present illness Narrative* Sonya Mejia [...] mellitus, with long-term current use of insulin ([facility]) Check blood sugars daily, notify if [...] her insulin, so she went without See [facility] hospital note and HPI and course She [...] Diagnosis Date Adenocarcinoma of endometrium, stage 1 ([facility]) 04/30/2017 Total Hysterectomy Anxiety and depression ([facility]) 06/07/2023 Class 3 severe obesity due to excess calories without serious comorbidity with body mass index (BMI) of 40.0 to 44.9 in adult ([facility] [place] [facility]) 04/02/2023 Diverticulitis of intestine without perforation or [...] mellitus, with long-term current use of insulin ([facility]) Check blood sugars daily, notify if [...] (BMI) of 40.0 to 44.9 in adult ([facility]) Colon cancer screening Colon cancer screening [...] coma associated with type 2 diabetes mellitus ([facility]) - Primary Hospital FU Reviewed hospital notes, labs, etc Symptoms have resolved documented in this encounterChristian [id number] History of Present illness Narrative* Sonya Mejia NP - 01/30/2024 3:28 PM EDTAssociated Problem(s): HLD (hyperlipidemia) ([facility]) Reviewed labs, trigs elevated likely secondary to her uncontrolled diabetes * Sonya Mejia NP - 01/30/2024 3:28 PM EDTAssociated Problem(s): Anxiety and depression (CMS/HCC) Continue current meds * Sonya Mejia NP [...] - 01/30/2024 3:27 PM EDTAssociated Problem(s): Hypertension ([facility]/HCC) At goal no med dose change Reviewed [...] Diagnosis Date Adenocarcinoma of endometrium, stage 1 ([facility]) 04/30/2017 Total Hysterectomy Anxiety and depression ([facility]) 06/07/2023 Class 3 severe obesity due to excess calories without serious comorbidity with body mass index (BMI) of 40.0 to 44.9 in adult ([facility]) 04/02/2023 Diverticulitis of intestine without perforation or abscess without bleeding, unspecified part of intestinal tract 06/07/2023 Fatty liver History of hysterectomy for cancer 04/30/2017 HLD (hyperlipidemia) ([facility]) 05/24/2023 Learning disabilities 06/07/2023 Narcotic abuse [...] Items Addressed This Visit Major depressive disorder ([facility]) Relevant Medications sertraline (Zoloft) 50 MG tablet 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 disease) Cont PPI Recommend weight loss Relevant Medications omeprazole (PriLOSEC) [address] capsule Hypertension ([facility]) - Primary At goal no med dose change Reviewed labs Relevant Medications lisinopril 40 MG tablet Type 2 diabetes mellitus, with long-term current use of insulin ([facility]) Check blood sugars daily, notify if [...] (BMI) of 40.0 to 44.9 in adult ([facility]) HLD (hyperlipidemia) ([facility]) Reviewed labs, trigs elevated likely secondary to her uncontrolled diabetes Relevant Medications atorvastatin (Lipitor) 80 MG tablet Anxiety and depression ([facility]) Continue current meds Colon cancer screening Relevant Orders Ambulatory referral to General Surgery Environmental and seasonal allergies Relevant Medications loratadine (Claritin) 10 MG tablet Other Visit Diagnoses Anxiety Relevant Medications sertraline (Zoloft) 50 MG tablet documented in this encounterChristian [id number] Telephone encounter Note* Telephone Encounter - Sonya Mejia NP - 01/23/2024 8:04 PM EDT Please tell pt that her labs all look good, with exception of Vit d being slightly low, does she currently take a vit d supplement? If not I would like to start her on one. Let me know and then I cansend something in [place] Christian [id number] Miscellaneous Notes* Telephone Encounter - Sonya Mejia NP - 01/23/2024 8:04 PM EDT Please tell pt that her labs all look good, with exception of Vit d being slightly low, does she currently take a vit d supplement? If not I would like to start her on one. Let me know and then I cansend something in [place] documented in this encounterChristian [id number] Evaluation note* Diagnosis Onset Date Resolution Status Admit Date Type 2 diabetes mellitus with hyperglyce juan [facility] 2023 12:57pmADHDacuteOctober 2023 1:52pmBMI 40.0-44.9, adultacuteOctober 2023 1:52pmFatty liveracuteOctober 2023 1:52pm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 disease)acuteOctober 2023 1:52pmLong term current use of insulinacuteOctober 2023 1:52pmNoncompliance with medication regimen acuteOctober 2023 1:52pmRetinopathy of both eyesacuteOctober 2023 1:52pmType 2 diabetes mellitus with hyperglycemiaacuteOctober 2023 1:52pm Weight gainacuteOctober 2023 1:52pmADHDacuteNovember 2023 12:56pmBMI 40.0-44.9, adultacuteNovember 2023 12:56pmFatty liveracuteNovember 2023 12:56pm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 disease)acuteNovember 2023 12:56pmHLD (hyperlipidemia)acuteNovember 2023 12:56pmLong term current use of insulinacuteNovember 2023 12:56pmNoncompliance with medication regimen acuteNovember 2023 12:56pmRetinopathy of both eyesacuteNovember 2023 12:56pmType 2 diabetes mellitus with hyperglycemiaacuteNovember 2023 12:56pmWeight gainacuteNovember 2023 12:56pm [facility] Work Phone: [phone]) 685-935004-16-2024 History of Present illness Narrative* Jason Acevedo [...] BS control and close follow up with PCP/chief radiologic technologist - Exam with no NVI or NVD, [...] of its relevant components. documented in this encounterGreene Memorial Hospital02-15-2024 History of Present illness Narrative* Sonya [...] 5:54 PM ESTAssociated Problem(s): Anxiety and depression ([facility]) Stable on current meds * Sonya Mejia NP - 06/07/2023 5:54 PM ESTAssociated Problem(s): Type 2 diabetes mellitus, with long-term current use of insulin (CMS/[facility]) Not at goal, A1c 10%, continue care with Jose clinical review specialist Check blood sugars daily, notify if [...] Diagnosis Date Adenocarcinoma of endometrium, stage 1 ([facility]) 04/30/2017 Total Hysterectomy Anxiety and depression ([facility]) 06/07/2023 Class 3 severe obesity due to excess calories without serious comorbidity with body mass index (BMI) of 40.0 to 44.9 in adult ([facility]) 04/02/2023 Diverticulitis of intestine without perforation or abscess without bleeding, unspecified part of intestinal tract 06/07/2023 Fatty liver History of hysterectomy for cancer 04/30/2017 HLD (hyperlipidemia) ([facility]) 05/24/2023 Learning disabilities 06/07/2023 Narcotic abuse in remission ([facility]) 06/07/2023 Partial blindness 06/07/2023 Type 2 diabetes mellitus with diabetic retinopathy ([facility]) 06/07/2023 without macular edema, unspecified retinopathy severity Type 2 diabetes mellitus, with long-term current use of insulin ([facility]) 04/02/2023 Past Surgical History: Procedure Laterality [...] reflux disease) Stable with current meds Hypertension ([facility]) At goal no changes in meds Type 2 diabetes mellitus, with long-term current use of insulin ([facility]) Not at goal, A1c 10%, continue care with Jose clinical review specialist Check blood sugars daily, notify if [...] (BMI) of 40.0 to 44.9 in adult ([facility]) Anxiety and depression ([facility]) Stable on current meds Encounter for [...] Cologuard colon cancer screening Other Visit Diagnoses shelter (current) use of insulin (Z79.4) documented in this encounterChristian [id number] Evaluation note* Encounter Date Diagnosis Assessment Notes Treatment Notes Treatment Clinical Notes Jan, Vitamin D deficiency (ICD-10 - E 55.9) Taking OTC self Jan,Type 2 diabetes mellitus with hyperglycemia (ICD-10 - E11.65) 1. Uncontrolled, a Type 2 diabetes with A1c of 8.6%, but GMI today 7.9%.-- implies improvement 2. Continue V-Go 40 with NovoLog, Basaglar 40 units if without V-Go for 24 hours. Discussed slidingscale 1 unit for every 25 mg/dL above [...] as a saline get that within 24 hours.Ozempic 1 mg subcu weekly x1 month with [...] does well with high surveillance by our office.Appears she has follow-up regarding CT abdomen abnormalities, esophageal cyst Will hold on SGLT2i_ _ patient with history of EUGLYCEMIC DKA IN THE PAST. _ __ Patient did show continued improvement in surveillance of diabetes care in past, but thisis variable. Provided significant amount of affirmation regarding [...] CGM usage is consistent with 202 ADA guidelinesfor IDDM. 3. TOPICS REVIEWED: 1. Time was spent reviewing: a. Basic concepts of diabetes, progressive beta cell , concepts of basal/bolus/corrective insulin requirements. Basal: The goal is fasting blood glucose of 90-130mg. IF fasting blood glucose starts to run under 100mg 3x's/ week, decrease dose by10%. Bolus: The goal is to hold the blood glucose level steady meal to meal. If pt. is going to have increased physical activity after a meal, decrease the schedule meal dose prior to the activity by30-50%. If pt. skips a meal do not [...] or juice equal to 15 G of carbohyd rate. Blood glucose should be 100 mg/dl or [...] medication issues. 6. Prescriptions: None needed 02-19-2023. 30 Jan, 2023Encounter for medication monitoring (ICD-10 - Z51.81) Jan,ietary counseling and surveillance (ICD-10 - Z71.3)Learning About Healthy Weight material was published to portal Jan,Hyperlipidemia (ICD-10 - E78.5) Jan,HTN (hypertension) (ICD-10 - I10) Jan,Long term current use of insulin (ICD-10 - Z79.4) Jan,Vitamin B 12 deficiency (ICD-10 - E53.8) Taking OTC supplement Jan,Hypoglycemia associated with type 2 diabetes mellitus (ICD-10 - E11.649) see above Jan,Nausea & vomiting (ICD-10 - R11.2) Jan,MI 40.0-44.9, adult (ICD-10 - Z68.41)down 3 lbs Jan,epression (ICD-10 - F32.9) Continue Sertriline Jan,utism spectrum disorder (ICD-10 - F84.0) Jan,DHD (ICD-10 - F90.9) NEEDS SIMPLE STEPS-- PRAISE/ AFFIRMATION FOR PROGRESS Jan,Eating disorder (ICD-10 - F50.9)[employer] Other 09-26-2023 Evaluation note* Encounter Date Diagnosis Assessment Notes Treatment Notes Treatment Clinical Notes Dec, Type 2 diabetes mellitus with hy perglycemia (ICD-10 - E11.65) Patient in today for [...] but has not been using. Neris report downloadedand discussed with TAYLOR Killian. Patient to continue V-Go 40 with corrective scale 1:25 ac tid (hs 1/2 dose if >200)PLUS 1 click with consistant amount of carbs [...] spent on education by Rosie CLARK, RN [employer] Other 08-01-2023 Evaluation note* Encounter Date Diagnosis Assessment Notes Treatment Notes Treatment Clinical Notes Nov, Vitamin D deficiency (ICD-10 - E 55.9) 04/28/2020 Vit d 20.1 start supplment Nov,Type 2 diabetes mellitus with hyperglycemia (ICD-10 - E11.65) 1. Uncontrolled, a Type 2 diabetes with A1c of 7.4% GMI today 7.5%. 2. Toes good with proximal surveillance. She should continue metformin 1000 mg twice daily, Ozempic2 mg q. weekly. She will continue V-Go 40 with a 1-25 correction scale and daily clicks. 1 unit forevery 7 g of carbs given in 6. [...] does well with high surveillance by our office.Appears she has follow-up regarding CT abdomen abnormalities, esophageal cyst Will hold on SGLT2i_ _ patient with history of EUGLYCEMIC DKA IN THE PAST. _ __ Patient did show continued improvement in surveillance of diabetes care in past, but thisis variable. Provided significant amount of affirmation regarding [...] CGM usage is consistent with 2021 ADA guidelinesfor IDDM. 3. TOPICS REVIEWED: 1. Time was spent reviewing: a. Basic concepts of diabetes, progressive beta cell , concepts of basal/bolus/corrective insulin requirements. Basal: The goal is fasting blood glucose of 90-130mg. IF fasting blood glucose starts to run under 100mg 3x's/ week, decrease dose by10%. Bolus: The goal is to hold the blood glucose level steady meal to meal. If pt. is going to have increased physical activity after a meal, decrease the schedule meal dose prior to the activity by30-50%. If pt. skips a meal do not [...] or juice equal to 15 G of carbohyd rate. Blood glucose should be 100 mg/dl or [...] medication issues. 6. Prescriptions: None needed 08-30-2022. Nov,Encounter for medication monitoring (ICD-10 - Z51.81) Nov,ietary counseling and surveillance (ICD-10 - Z71.3)Learning About Healthy Weight material was published to portal Nov,Hyperlipidemia (ICD-10 - E78.5) Nov,HTN (hypertension) (ICD-10 - I10) f/u with pcp BP ELEVATED TODAY Nov,Long term current use of insulin (ICD-10 - Z79.4) Nov,Vitamin B 12 deficiency (ICD-10 - E53.8) 07/2021 recommend otc b12 1000 mcg QOD Nov,Hypoglycemia associated with type 2 diabetes mellitus (ICD-10 - E11.649) see above Nov,Nausea & vomiting (ICD-10 - R11.2) Nov,MI 40.0-44.9, adult (ICD-10 - Z68.41)down 3 lbs Nov,epression (ICD-10 - F32.9) Continue Sertriline Nov,utism spectrum disorder (ICD-10 - F84.0) Nov,DHD (ICD-10 - F90.9) NEEDS SIMPLE STEPS-- PRAISE/ AFFIRMATION FOR PROGRESS Nov,Eating disorder (ICD-10 - F50.9)DISCUSSION OF HELP FROM [facility]. She will follow-up Nov,OtherVGO review, fills per NR LEIGH ANN RN/ president & ceo [employer]. I have spent 30 minutes with this patient and over 50% of the visit was counseling done by myself, Marcela VAZQUEZ-C. [employer] Other 07-31-2023 Evaluation note* Encounter Date Diagnosis Assessment Notes Treatment Notes Treatment Clinical Notes Oct, 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 di sease) (ICD-10 - K21.9) Pt advised to start omeprazole 40mg BID- pt advised to take this 30 min prior to meals. Pt advised to get ct scan of chest for Cystic Structure Oct,Right upper quadrant abdominal pain (ICD-10 - R10.11)Pt advised to proceed with colonoscopy pt RTO 2 months Oct,onstipation, unspecified constipation type (ICD-10 - K59.00)Pt given miralax samples [employer] Other 07-07-2023 Evaluation note* Encounter Date Diagnosis Assessment Notes Treatment Notes Treatment Clinical Notes Oct, Type 2 diabetes mellitus with hy perglycemia (ICD-10 - E11.65) [employer] Other 06-27-2023 Evaluation note* Encounter Date Diagnosis Assessment Notes Treatment Notes Treatment Clinical Notes Sep, Type 2 diabetes mellitus with hy perglycemia (ICD-10 - E11.65) Patient in today for [...] 2mg SQ injection weekly, V-Go 40 1:7 ICR,!:25 corrective scale 1:25 ac tid (hs if [...] spent on education by Rosie CLARK, RN [employer] Other 06-20-2023 Evaluation note* Encounter Date Diagnosis Assessment Notes Treatment Notes Treatment Clinical Notes Sep, Type 2 diabetes mellitus with hy perglycemia (ICD-10 - E11.65) [employer] Other 05-10-2023 Evaluation note* Encounter Date Diagnosis Assessment Notes Treatment Notes Treatment Clinical Notes August, Vitamin D deficiency (ICD-10 - E 55.9) 04/28/2020 Vit d 20.1 start supplment August,Type 2 diabetes mellitus with hyperglycemia (ICD-10 - [...] have episode of abdominal pain at the [facility], lipase was low, no suspicion of pancreatitis, resolved within ER visit. Her weightdoes show some improvement. She continues with V-Go 40 CGM does not show any consistent lows. Her sensitivities were provided and clicks 1 unit for every 25 mg/dL above goal and insulin to carb ratiounchanged. We will have her return to clinic in 6 weeks if she does well with high surveillance by our office.[facility] reviewed. Appears she has follow-up regarding CT abdomen abnormalities. Will hold on SGLT2i_ _ patient with history of EUGLYCEMIC DKA IN THE PAST. _ __ Patient did show continued improvement in surveillance of diabetes care in past, but thisis variable. Provided significant amount of affirmation regarding her effort. VGO fail plan reviewed. BENEFITS from [employer] with alarms and reminders. Current Research shows that stamina with the current regime may fatigue, as would outcomes and CGM is equitable compaired to disease instability. Patient also uses [employer] technology, has ICR and ISS treatment of BG which increases cumbersome nature of current regime. She also has cognitive limitations which impede planning and followthru. [employer] will help her titrate medications and manage prandial BG. CGM usage is consistent with 202 ADA guidelinesfor IDDM. 3. TOPICS REVIEWED: 1. Time was spent reviewing: a. Basic concepts of diabetes, progressive beta cell , concepts of basal/bolus/corrective insulin requirements. Basal: The goal is fasting blood glucose of 90-130mg. IF fasting blood glucose starts to run under 100mg 3x's/ week, decrease dose by10%. Bolus: The goal is to hold the blood glucose level steady meal to meal. If pt. is going to have increased physical activity after a meal, decrease the schedule meal dose prior to the activity by30-50%. If pt. skips a meal do not [...] or juice equal to 15 G of carbohyd rate. Blood glucose should be 100 mg/dl or [...] medication issues. 6. Prescriptions: None needed 08-30-2022. August,Encounter for medication monitoring (ICD-10 - Z51.81) August,ietary counseling and surveillance (ICD-10 - Z71.3)Learning About Healthy Weight material was published to portal August,Hyperlipidemia (ICD-10 - E78.5) August,HTN (hypertension) (ICD-10 - I10) f/u with pcp BP ELEVATED TODAY August,Long term current use of insulin (ICD-10 - Z79.4) August,Vitamin B 12 deficiency (ICD-10 - E53.8) 07/2021 recommend otc b12 1000 mcg QOD August,Hypoglycemia associated with type 2 diabetes mellitus (ICD-10 - E11.649) see above August,Nausea & vomiting (ICD-10 - R11.2) August,MI 40.0-44.9, adult (ICD-10 - Z68.41)down 3 lbs August,epression (ICD-10 - F32.9) Continue Sertriline August,utism spectrum disorder (ICD-10 - F84.0) August,DHD (ICD-10 - F90.9) NEEDS SIMPLE STEPS-- PRAISE/ AFFIRMATION FOR PROGRESS August,Eating disorder (ICD-10 - F50.9)DISCUSSION OF HELP FROM [facility]. She will follow-up August,OtherVGO review, fills per NR DE RN/ president & ceo [employer]. I have spent 30 minutes with this patient and over 50% of the visit was counseling done by myself, Marcela AMANDA. [employer] Other 04-01-2023 History general Narrative - Reported* Type Description Date Medical History DM 2 Medical HistoryHYPERTENSIONMedical HistoryDEPRESSIONMedical HistoryOpioid abuse Medical Historyretinopathy bilateral eyesMedical Historycystic lesion esophagus 07/2022 [facility] HistoryRIGHT EYE SURGERYSurgical HistoryLT eye surgerySurgical Historyhysterectomy1Hospitalization HistoryDKA3 Hospitalization HistoryDKA11[facility]02[facility] [employer] [facility] Other 03-29-2023 Evaluation note* Encounter Date Diagnosis Assessment Notes Treatment Notes Treatment Clinical Notes Jun, Type 2 diabetes mellitus with hy perglycemia (ICD-10 - E11.65) Patient in today for [...] around 10am, blood glucose was 275 and took2 clicks. According to scale pt should have [...] provided. Discussed pt reaching out to the [facility]. Pt reports she missed her initial scheduled appointment due to a calender mix up, but is rescheduled for 08/10/22. Pt alsostates she switched PCP providers to Sonya Hardy from [facility]. Pt seems in high spirits regarding physician. [...] been fasting since 8pm last evening and isto have bloodwork done today ordered by her [...] spent on education by Rosie CLARK, RN [employer] Other 01-04-2023 Evaluation note* Encounter Date Diagnosis Assessment Notes Treatment Notes Treatment Clinical Notes Apr, Type 2 diabetes mellitus with hy perglycemia (ICD-10 - E11.65) Patient in today for [...] states I may have forgotten to change myV-Go a couple of the days . Assessed [...] with s-m-l-xl sized meal ICR with intake. ContinueMetformin 1000mg bid and Ozempic 1mg SQ injection [...] spent on education by Rosie CLARK, RN [employer] Other 11-22-2022 Evaluation note* Encounter Date Diagnosis Assessment Notes Treatment Notes Treatment Clinical Notes Feb, Type 2 diabetes mellitus with hy perglycemia (ICD-10 - E11.65) Patient in today for [...] to use V-Go 40 with corrective scale 1:30before meals and insulin to carb ratio (4-5-6 [...] provided including 1:30 correction and ICR 4-5-6 clickswith Novolog. Discussed meal planning examples and reviewed use of use of corrective scale. Encouraged patient to check glucose before meals and bedtime. Pt denies any issues or problems with her Neris at this time. Allquestions and concerns addressed. Encouraged to follow up for next appointment in 4 weeks. 45 minutes was spent on education by Rosie CLARK, RN. [employer] Other 10-27-2022 Evaluation note* Encounter Date Diagnosis Assessment Notes Treatment Notes Treatment Clinical Notes Jan, Vitamin D deficiency (ICD-10 - E 55.9) 04/28/2020 Vit d 20.1 start supplment Jan,Type 2 diabetes mellitus with hyperglycemia (ICD-10 - [...] present in 4 weeks for download with certified breastfeeding educator and myself in 8 weeks. Patient did show continued improvement in surveillance of diabetes care. Provided significant amount of affirmation regarding her effort. VGO fail plan reviewed. She is continues changing VGO btween 9-11 am. Reports sleep habits are better. LIBRE2 CGM, BENEFITS from [employer] with alarms andreminders. Current Research shows that stamina with the [...] diabetes, progressive beta cell , concepts of basal/bolus/corrective insulin requirements. Basal: The goal is fasting blood glucose of 90-130mg. IF fasting blood glucose starts to run under 100mg 3x's/ week, decrease dose by10%. Bolus: The goal is to hold the blood glucose level steady meal to meal. If pt. is going to have increased physical activity after a meal, decrease the schedule meal dose prior to the activity by30-50%. If pt. skips a meal do not [...] or juice equal to 15 G of carbohyd rate. Blood glucose should be 100 mg/dl or [...] refills needed today 12/27/2021. {uses [facility]} Jan,Encounter for medication monitoring (ICD-10 - Z51.81) Jan,ietary counseling and surveillance (ICD-10 - Z71.3)Learning About Healthy Weight material was published to portal Jan,Hyperlipidemia (ICD-10 - E78.5) Jan,HTN (hypertension) (ICD-10 - I10) f/u with pcp Jan,Long term current use of insulin (ICD-10 - Z79.4) Jan,Vitamin B 12 deficiency (ICD-10 - E53.8) 07/2021 recommend otc b12 1000 mcg QOD Jan,Hypoglycemia associated with type 2 diabetes mellitus (ICD-10 - E11.649) see above Jan,Nausea & vomiting (ICD-10 - R11.2) Jan,MI 40.0-44.9, adult (ICD-10 - Z68.41)down 3 lbs Jan,epression (ICD-10 - F32.9) Continue Sertriline Jan,utism spectrum disorder (ICD-10 - F84.0) Jan,DHD (ICD-10 - F90.9) NEEDS SIMPLE STEPS-- PRAISE/ AFFIRMATION FOR PROGRESS Jan,allus of toe (ICD-10 - L84) refer to podiatry Jan,therI have spent 30 minutes with this patient and over 50% of the visit was counseling done by myself, Marcela Scally REFRIGERATOR ROOM CLERK-C. [employer] Other 10-11-2022 History of Present illness Narrative* [...] control - Continue close follow up with PCP/chief radiologic technologist - [place] unchanged - OCT stable without [...] if new symptoms develop. documented in this encounterGreene [facility] Hospital10-06-2022 Evaluation note* Encounter Date Diagnosis Assessment Notes Treatment Notes Treatment Clinical Notes Jan, Type 2 diabetes mellitus with hy perglycemia (ICD-10 - E11.65) Tasha came in today [...] at 3-4am and doesn't get up until 4-5in the afternoon. Her BG rises when she is not getting the Basal insulin from the V-go. She is always awake at 6pm according to the report. She is going to change the V-go tonight at 6pm and continueto do so moving forward. 30 minutes were spent evaluating the patient's report and discussing the results with the patient by Heriberto Downs RN, [facility]. [place] [facility] Other 06-07-2022 Evaluation note* Encounter Date Diagnosis Assessment Notes Treatment Notes Treatment Clinical Notes Sep, Vitamin D deficiency (ICD-10 - E 55.9) 04/28/2020 Vit d 20.1 start supplment Sep,Type 2 diabetes mellitus with hyperglycemia (ICD-10 - E11.65) 1. Uncontrolled, a Type 2 diabetes with A1c of 8.5% down from 10.0 and GMI over 7 days 7.0% with some lows and variability 2. Continue VGO40, ISS softened to 1:30 from 1:25- given in clicks. No ICR. Tolerating Ozempic 0.50mg weekly. Continue Metformin 1000 mg BID. Hold on SGLT2i_ _ patient with history of EUGLYCEMIC DKAIN THE PAST. _ __ _Increased vigilence and empowerment with Neris 2. Discussed how to watch averageBG to predict A1c/ good glycemic control. Patient did show continued improvement in surveillance of diabetes care. Provided significant amount of affirmation regarding her effort. VGO fail plan reviewed. She is continues changing VGO btween 9-11 am. Reports sleep habits are better. LIBRE2 CGM, BENEFITS from [employer] with alarms andreminders. Current Research shows that stamina with the [...] diabetes, progressive beta cell , concepts of basal/bolus/corrective insulin requirements. Basal: The goal is fasting blood glucose of 90-130mg. IF fasting blood glucose starts to run under 100mg 3x's/ week, decrease dose by10%. Bolus: The goal is to hold the blood glucose level steady meal to meal. If pt. is going to have increased physical activity after a meal, decrease the schedule meal dose prior to the activity by30-50%. If pt. skips a meal do not [...] or juice equal to 15 G of carbohyd rate. Blood glucose should be 100 mg/dl or [...] refills needed today 09-27-21 {uses [facility]} Sep,Encounter for medication monitoring (ICD-10 - Z51.81) Sep,ietary counseling and surveillance (ICD-10 - Z71.3)Learning About Healthy Weight material was published to portal Sep,Hyperlipidemia (ICD-10 - E78.5) 04/28/2020 ldl 148, trig 418. start statin, repeat labs Reviewed with pt need for contraception whiletaking medication, risk anomalies if becomes Sep,HTN (hypertension) (ICD-10 - I10) f/u with pcp Sep,Long term current use of insulin (ICD-10 - Z79.4) Sep,Vitamin B 12 deficiency (ICD-10 - E53.8) 07/2021 recommend otc b12 1000 mcg QOD Sep,Hypoglycemia associated with type 2 diabetes mellitus (ICD-10 - E11.649) see above Sep,Nausea & vomiting (ICD-10 - R11.2) Sep,MI 40.0-44.9, adult (ICD-10 - Z68.41)down 3 lbs Sep,epression (ICD-10 - F32.9) Continue Sertriline Sep,utism spectrum disorder (ICD-10 - F84.0) Sep,DHD (ICD-10 - F90.9) NEEDS SIMPLE STEPS-- PRAISE/ AFFIRMATION FOR PROGRESS Sep,allus of toe (ICD-10 - L84) refer to podiatry Sep,therI have spent 30 minutes with this patient and over 50% of the visit was counseling done by myself, Marcela AMANDA. [facility] Other 04-27-2022 Evaluation note* Encounter Date Diagnosis Assessment Notes Treatment Notes Treatment Clinical Notes Jul, Type 2 diabetes mellitus with hy perglycemia (ICD-10 - E11.65) Patient in today for review of blood glucose logs, food logs, and insulin dosing. Patient's personal meter was downloaded with ranges between lowest 64-333 highest for the past 8 days. Pt had Neris sensor until 2-3 weeks ago, but discontinued wearing CGM. Pt did not bring her Neris reader to today's visit, but did bringglucometer. Pt prefers to monitor blood glucose with meter. Average reading 163 mg/dl. Patient doesknow how to count carbs, discussed with patient [...] spent on education by Rosie CLARK, RN. [facility] Other 04-13-2022 Evaluation note* Encounter Date Diagnosis Assessment Notes Treatment Notes Treatment Clinical Notes Jul, Type 2 diabetes mellitus with hy perglycemia (ICD-10 - E11.65) [facility] Other 04-12-2022 Evaluation note* Encounter Date Diagnosis Assessment Notes Treatment Notes Treatment Clinical Notes Jul, Vitamin D deficiency (ICD-10 - E 55.9) 04/28/2020 Vit d 20.1 start supplment Jul,Type 2 diabetes mellitus with hyperglycemia (ICD-10 - E11.65) 1. Uncontrolled, a Type 2 diabetes with A1c of 10.0% 2. Continue VGO40, ISS 1:25- given in clicks. No ICR. Tolerating Ozempic 0.25 mg weekly, x 1 episode of emesis after lao food. If tolerating without further episodes of emesis can increase at DSME visit to 0.5 mg weekly. Discuss sick day management with patient, needs further review. Hold on SGLT2i_ _ patient with history of EUGLYCEMIC DKA IN THE PAST. _ __ _Blood glucoses have remained elevated, but seems to have increased vigilence. Following up on LIBRE2 SYSTEM from [employer] (has [id number] day in the past and insurance has changed since). She is currently doing fingersticks usingGetYoutyle neris as glucometer. Patient did show continued [...] to < 100% ISS and ICR. We reviewedimportance. LIBRE2 CGM, would benefit from Libre2 with [...] diabetes, progressive beta cell , concepts of basal/bolus/corrective insulin requirements. Basal: The goal is fasting blood glucose of 90-130mg. IF fasting blood glucose starts to run under 100mg 3x's/ week, decrease dose by10%. Bolus: The goal is to hold the blood glucose level steady meal to meal. If pt. is going to have increased physical activity after a meal, decrease the schedule meal dose prior to the activity by30-50%. If pt. skips a meal do not [...] or juice equal to 15 G of carbohyd rate. Blood glucose should be 100 mg/dl or [...] patient needs Metformin sent to [facility] Jul,Encounter for medication monitoring (ICD-10 - Z51.81) Jul,ietary counseling and surveillance (ICD-10 - Z71.3)Learning About Healthy Weight material was published to portal Jul,Hyperlipidemia (ICD-10 - E78.5) 04/28/2020 ldl 148, trig 418. start statin, repeat labs Reviewed with pt need for contraception whiletaking medication, risk anomalies if becomes Jul,HTN (hypertension) (ICD-10 - I10) f/u with pcp Jul,Long term current use of insulin (ICD-10 - Z79.4) Jul,Vitamin B 12 deficiency (ICD-10 - E53.8) 04/2020 Vit b 12 247 recommend otc b12 1000 mcg once daily Jul,Hypoglycemia associated with type 2 diabetes mellitus (ICD-10 - E11.649) see above Jul,Nausea & vomiting (ICD-10 - R11.2) Jul,MI 40.0-44.9, adult (ICD-10 - Z68.41) Jul,epression (ICD-10 - F32.9) Continue Sertriline Jul,utism spectrum disorder (ICD-10 - F84.0) Jul,DHD (ICD-10 - F90.9) NEEDS SIMPLE STEPS-- PRAISE/ AFFIRMATION FOR PROGRESS Jul,therI have spent 30 minutes with this patient and over 50% of the visit was counseling done by myself, Marcela AMANDA. [facility] Other 03-28-2022 Evaluation note* Encounter Date Diagnosis Assessment Notes Treatment Notes Treatment Clinical Notes Jun, Type 2 diabetes mellitus with hy perglycemia (ICD-10 - E11.65) [facility] Other 03-15-2022 Evaluation note* Encounter Date Diagnosis Assessment Notes Treatment Notes Treatment Clinical Notes Jun, Vitamin D deficiency (ICD-10 - E 55.9) 04/28/2020 Vit d 20.1 start supplment Jun,Type 2 diabetes mellitus with hyperglycemia (ICD-10 - E11.65) ozempic sampled today. patient took starting dose 0.25mg sq successfully with minimal cues 1. Uncontrolled, a Type 2 diabetes with A1c of 10.0% 2. Blood glucoses have remained elevated. Patient did show continued improvement in surveillance ofdiabetes care. Provided significant amount of affirmation regarding her effort. VGO fail plan reviewed. She is now changing VGO btween 9- 11 am, she has started to sleep better [...] provide support, affirmation and reinforcement of diabetes manag ment. Ozempic started today to assist with decreaseing [...] gi s/e when taking glp1 -- will monitorclosely since starting Ozempic today and titrate slowly 3. TOPICS REVIEWED: 1. Time was spent reviewing: a. Basic concepts of diabetes, progressive beta cell , concepts of basal/bolus/corrective insulin requirements. Basal: The goal is fasting blood glucose of 90-130mg. IF fasting blood glucose starts to run under 100mg 3x's/ week, decrease dose by10%. Bolus: The goal is to hold the blood glucose level steady meal to meal. If pt. is going to have increased physical activity after a meal, decrease the schedule meal dose prior to the activity by30-50%. If pt. skips a meal do not [...] or juice equal to 15 G of carbohyd rate. Blood glucose should be 100 mg/dl or [...] Metformin and Novolog sent to [facility] Jun,Encounter for medication monitoring (ICD-10 - Z51.81) Jun,ietary counseling and surveillance (ICD-10 - Z71.3) Learning About Healthy Weight material was published to portal Jun,Hyperlipidemia (ICD-10 - E78.5) 04/28/2020 ldl 148, trig 418. start statin, repeat labs Reviewed with pt need for contraception whiletaking medication, risk anomalies if becomes Jun,HTN (hypertension) (ICD-10 - I10) f/u with pcp Jun,Long term current use of insulin (ICD-10 - Z79.4) Jun,Vitamin B 12 deficiency (ICD-10 - E53.8) 04/2020 Vit b 12 247 recommend otc b12 1000 mcg once daily Jun,Hypoglycemia associated with type 2 diabetes mellitus (ICD-10 - E11.649) see above Jun,Nausea & vomiting (ICD-10 - R11.2) Jun,MI 40.0-44.9, adult (ICD-10 - Z68.41) Jun,epression (ICD-10 - F32.9) Continue Sertriline Jun,utism spectrum disorder (ICD-10 - F84.0) Jun,DHD (ICD-10 - F90.9) Jun,therI have spent 40 minutes with this patient and over 50% of the visit was counseling done by myself, Marcela AMANDA. [facility] Other 03-15-2022 Evaluation note* Encounter Date Diagnosis Assessment Notes Treatment Notes Treatment Clinical Notes Jun, Vitamin D deficiency (ICD-10 - E 55.9) 04/28/2020 Vit d 20.1 start supplment Jun,Type 2 diabetes mellitus with hyperglycemia (ICD-10 - E11.65) 1. Uncontrolled, a Type 2 diabetes with A1c of 10.0% 2. Blood glucoses have remained elevated. Patient did show continued improvement in surveillance ofdiabetes care. Provided significant amount of affirmation regarding her effort. VGO fail plan reviewed. She is now changing VGO btween 9- 11 am, she has started to sleep better [...] provide support, affirmation and reinforcement of diabetes manag ment. Tasha has historically had NERIS CGM, would [...] diabetes, progressive beta cell , concepts of basal/bolus/corrective insulin requirements. Basal: The goal is fasting blood glucose of 90-130mg. IF fasting blood glucose starts to run under 100mg 3x's/ week, decrease dose by10%. Bolus: The goal is to hold the blood glucose level steady meal to meal. If pt. is going to have increased physical activity after a meal, decrease the schedule meal dose prior to the activity by30-50%. If pt. skips a meal do not [...] or juice equal to 15 G of carbohyd rate. Blood glucose should be 100 mg/dl or [...] Metformin and Novolog sent to [facility] Jun,Encounter for medication monitoring (ICD-10 - Z51.81) Jun,ietary counseling and surveillance (ICD-10 - Z71.3) Learning About Healthy Weight material was published to portal Jun,Hyperlipidemia (ICD-10 - E78.5) 04/28/2020 ldl 148, trig 418. start statin, repeat labs Reviewed with pt need for contraception whiletaking medication, risk anomalies if becomes Jun,HTN (hypertension) (ICD-10 - I10) f/u with pcp Jun,Long term current use of insulin (ICD-10 - Z79.4) Jun,Vitamin B 12 deficiency (ICD-10 - E53.8) 04/2020 Vit b 12 247 recommend otc b12 1000 mcg once daily Jun,Hypoglycemia associated with type 2 diabetes mellitus (ICD-10 - E11.649) see above Jun,Nausea & vomiting (ICD-10 - R11.2) Jun,MI 40.0-44.9, adult (ICD-10 - Z68.41) Jun,epression (ICD-10 - F32.9) Continue Sertriline Jun,utism spectrum disorder (ICD-10 - F84.0) Jun,DHD (ICD-10 - F90.9) Jun,therI have spent 40 minutes with this patient and over 50% of the visit was counseling done by myself, Marcela AMANDA. [facility] Other 01-05-2022 Evaluation note* Encounter Date Diagnosis Assessment Notes Treatment Notes Treatment Clinical Notes Apr, Type 2 diabetes mellitus with hy perglycemia (ICD-10 - E11.65) [facility] Other 12-20-2021 Evaluation note* Encounter Date Diagnosis Assessment Notes Treatment Notes Treatment Clinical Notes Mar, Vitamin D deficiency (ICD-10 - E 55.9) 04/28/2020 Vit d 20.1 start supplment Mar,Type 2 diabetes mellitus with hyperglycemia (ICD-10 - E11.65) 1. Uncontrolled, a Type 2 diabetes with A1c of 9.3% 2. Blood glucoses have remained elevated. Patient did show continued improvement in surveillance ofdiabetes care. Provided significant amount of affirmation regarding her effort. VGO fail plan reviewed. She is now changing VGO btween 9- 11 am, she has started to sleep better [...] provide support, affirmation and reinforcement of diabetes manag ment. Note: history euglycemic dka while taking sglt2 and adverse gi s/e when taking glp1 3. TOPICS REVIEWED: 1. Time was spent reviewing: a. Basic concepts of diabetes, progressive beta cell , concepts of basal/bolus/corrective insulin requirements. Basal: The goal is fasting blood glucose of 90-130mg. IF fasting blood glucose starts to run under 100mg 3x's/ week, decrease dose by10%. Bolus: The goal is to hold the blood glucose level steady meal to meal. If pt. is going to have increased physical activity after a meal, decrease the schedule meal dose prior to the activity by30-50%. If pt. skips a meal do not [...] or juice equal to 15 G of carbohyd rate. Blood glucose should be 100 mg/dl or [...] diabetes medication issues. 6. Prescriptions: None needed. Mar,ncounter for medication monitoring (ICD-10 - Z51.81) Mar,ietary counseling and surveillance (ICD-10 - Z71.3) Learning About Healthy Weight material was published to portal Mar,Hyperlipidemia (ICD-10 - E78.5) 04/28/2020 ldl 148, trig 418. start statin, repeat labs Reviewed with pt need for contraception whiletaking medication, risk anomalies if becomes Mar,HTN (hypertension) (ICD-10 - I10) f/u with pcp Mar,ong term current use of insulin (ICD-10 - Z79.4) Mar,Vitamin B 12 deficiency (ICD-10 - E53.8) 04/2020 Vit b 12 247 recommend otc b12 1000 mcg once daily Mar,Hypoglycemia associated with type 2 diabetes mellitus (ICD-10 - E11.649) see above Mar,Nausea & vomiting (ICD-10 - R11.2) Mar,MI 40.0-44.9, adult (ICD-10 - Z68.41) Mar,epression (ICD-10 - F32.9) Continue Sertriline Mar,utism spectrum disorder (ICD-10 - F84.0) Mar,DHD (ICD-10 - F90.9) Mar,OtherI have spent 40 minutes with this patient and over 50% of the visit was counseling done by myself, Marcela AMANDA. [facility] Other 11-22-2021 Evaluation note* Encounter Date Diagnosis Assessment Notes Treatment Notes Treatment Clinical Notes Feb, Type 2 diabetes mellitus with hy perglycemia (ICD-10 - E11.65) [facility] Other 04-12-2017 History of Past illness Narrative* Problem Noted DateResolved KcfiLndswpjf20/12/2017documented as of this encounter (statuses as of 01/31/2022) [facility]04-12-2017 History of Past illness Narrative* ProblemNoted Date Diagnosed DateResolved UwokRdxizxum25/12/2017documented as of this encounter (statuses as of 08/08/2023) [facility] No data available for this section [facility] [place] Evaluation noteNo assessment information available [facility]tr[facility] noteNort [facility] Other Evaluation noteNo InformationNort [facility] Other Evaluation note* Diagnosis 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, unspecified whether bus girl insulin use (HCC)- Primary Nuclear sclerotic cataract, bilateral 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) Class 3 severe obesity due to excess calories without serious comorbidity with body mass index (BMI) of 40.0 to 44.9 in adult (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, bilateral Nuclear sclerotic cataract, bilateral [facility] Diagnosis Onset Date Resolution Status Type 2 diabetes mellitus with hyperglyce juan [facility] Work Phone: Evaluation note* Diagnosis Onset Date Resolution Status Type 2 diabetes mellitus with hyperglyce juan acuteADHDacuteBMI 40.0-44.9, adultacuteFatty liveracute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 disease)acuteLong term current use of insulinacuteNoncompliance with medication regimenacuteRetinopathy of both eyesacuteType 2 diabetes mellitus with hyperglycemiaacuteWeight gainSelect Medical [facility] [place] Work Phone: Evaluation note* Diagnosis Onset Date Resolution Status ADHD acuteBMI 40.0-44.9, adultacuteFatty liveracute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 disease)acuteLong term current use of insulinacuteNoncompliance with medication regimenacuteRetinopathy of both eyesacuteType 2 diabetes mellitus with hyperglycemiaacuteWeight gainacuteType 2 diabetes mellitus with hyperglycemia [facility] Work Phone: Evaluation note* Diagnosis Onset Date Resolution Status Type 2 diabetes mellitus with hyperglyce juan acuteADHDacuteBMI 40.0-44.9, adultacuteFatty liveracute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 disease)acuteLong term current use of insulinacuteNoncompliance with medication regimenacuteRetinopathy of both eyesacuteType 2 diabetes mellitus with hyperglycemiaacuteWeight gainacuteType 2 diabetes mellitus with hyperglycemiaacute [facility] Work Phone: Evaluation note* Diagnosis Primary hypertension ([facility]/HCC)- Primary Unspecified essential hypertension Mixed hyperlipidemia (CMS/[facility]) Mixed hyperlipidemia Environmental and seasonal allergies Gastroesophageal reflux disease, unspecified whether esophagitis present Anxiety Anxiety state, unspecified Major depressive disorder with single episode, remission status unspecified (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) Class 3 severe obesity due to excess calories without serious comorbidity with body mass index (BMI) of 40.0 to 44.9 in adult ([facility]) Anxiety and depression (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) Class 3 severe obesity due to excess calories without serious comorbidity with body mass index (BMI) of 40.0 to 44.9 in adult ([facility]) Encounter for subsequent annual wellness visit (AWV) in Medicare patient- Primary Encounter for screening mammogram for malignant neoplasm of breast Primary hypertension (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) Class 3 severe obesity due to excess calories without serious comorbidity with body mass index (BMI) of 40.0 to 44.9 in adult (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) Malignant neoplasm of corpus uteri, except isthmus Opioid abuse, in remission ([facility]) Opioid abuse, in remission Mixed hyperlipidemia ([facility]/HCC) Mixed hyperlipidemia Anxiety Anxiety state, unspecified Major depressive disorder with single episode, remission status unspecified ([facility]) Gastroesophageal reflux disease, unspecified whether esophagitis present Environmental and seasonal allergies Class 3 severe obesity due to excess calories without serious comorbidity with body mass index (BMI) of 40.0 to 44.9 in adult ([facility]) Colon cancer screening Special screening for malignant neoplasms, colon Primary hypertension ([facility])- Primary Unspecified essential hypertension Mixed hyperlipidemia ([facility]) Mixed hyperlipidemia Environmental and seasonal allergies Gastroesophageal reflux disease, unspecified whether esophagitis present Anxiety Anxiety state, unspecified Major depressive disorder with single episode, remission status unspecified (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) Class 3 severe obesity due to excess calories without serious comorbidity with body mass index (BMI) of 40.0 to 44.9 in adult ([facility]) Anxiety and depression ([facility]) Need for immunization against influenza Need for prophylactic vaccination and inoculation against influenza Diabetic ketoacidosis without coma associated with type 2 diabetes mellitus (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) Class 3 severe obesity due to excess calories without serious comorbidity with body mass index (BMI) of 40.0 to 44.9 in adult ([facility]) Colon cancer screening Special screening for malignant neoplasms, colon [facility] Diagnosis Primary hypertension (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) Class 3 severe obesity due to excess calories without serious comorbidity with body mass index (BMI) of 40.0 to 44.9 in adult ([facility] [place]) Encounter for subsequent annual wellness visit (AWV) in Medicare patient- Primary Encounter for screening mammogram for malignant neoplasm of breast Primary hypertension (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 [place]) Class 3 severe obesity due to excess calories without serious comorbidity with body mass index (BMI) of 40.0 to 44.9 in adult ([facility]) Anxiety and depression ([facility]) shelter (current) use of insulin (Z79.4) Colon cancer screening Special screening for malignant neoplasms, colon Primary hypertension ([facility])- Primary Unspecified essential hypertension Malignant neoplasm of endometrium ([facility]) Malignant neoplasm of corpus uteri, except isthmus Opioid abuse, in remission ([facility] [place]) Opioid abuse, in remission Mixed hyperlipidemia ([facility]) Mixed hyperlipidemia Anxiety Anxiety state, unspecified Major depressive disorder with single episode, remission status unspecified ([facility]) Gastroesophageal reflux disease, unspecified whether esophagitis present Environmental and seasonal allergies Class 3 severe obesity due to excess calories without serious comorbidity with body mass index (BMI) of 40.0 to 44.9 in adult ([facility]) Colon cancer screening Special screening for malignant neoplasms, colon Primary hypertension ([facility])- Primary Unspecified essential hypertension Mixed hyperlipidemia ([facility]) Mixed hyperlipidemia Environmental and seasonal allergies Gastroesophageal reflux disease, unspecified whether esophagitis present Anxiety Anxiety state, unspecified Major depressive disorder with single episode, remission status unspecified (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) Class 3 severe obesity due to excess calories without serious comorbidity with body mass index (BMI) of 40.0 to 44.9 in adult ([facility] [place]) Anxiety and depression ([facility]) Need for immunization against influenza Need for prophylactic vaccination and inoculation against influenza Diabetic ketoacidosis without coma associated with type 2 diabetes mellitus (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 [place]) Class 3 severe obesity due to excess calories without serious comorbidity with body mass index (BMI) of 40.0 to 44.9 in adult ([facility] [place]) Colon cancer screening Special screening for malignant neoplasms, colon Primary hypertension ([facility] [place])- Primary Unspecified essential hypertension Type 2 diabetes mellitus with diabetic cataract (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) Opioid abuse, in remission ([facility]) Opioid abuse, in remission shelter (current) use of insulin ([facility]) Morbid (severe) obesity due to excess calories ([facility]) Body mass index (BMI) 40.0-44.9, adult ([facility]) Gastroesophageal reflux disease, unspecified whether esophagitis present Adenocarcinoma of endometrium, stage 1 ([facility] [place]) Class 3 severe obesity due to excess calories without serious comorbidity with body mass index (BMI) of 40.0 to 44.9 in adult ([facility]) Anxiety and depression ([facility] [place]) Mixed hyperlipidemia ([facility] [place]) Mixed hyperlipidemia Environmental and seasonal allergies Anxiety Anxiety state, unspecified Major depressive disorder with single episode, remission status unspecified (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) shelter (current) use of insulin (Z79.4) Colon cancer screening Special screening for malignant neoplasms, colon Primary hypertension (CMS/HCC)- Primary Unspecified essential hypertension Malignant neoplasm of endometrium (CMS/HCC) Malignant neoplasm of corpus uteri, except isthmus Opioid abuse, in remission Mixed hyperlipidemia (CMS/HCC) Mixed hyperlipidemia Anxiety Anxiety state, unspecified Major depressive disorder with single episode, remission status unspecified (CMS/HCC) Gastroesophageal reflux disease, unspecified whether esophagitis present Environmental and seasonal allergies Class 3 severe obesity due to excess calories without serious comorbidity with body mass index (BMI) of 40.0 to 44.9 in adult Colon cancer screening Special screening for malignant neoplasms, colon Primary hypertension (CMS/HCC)- Primary Unspecified essential hypertension Mixed hyperlipidemia (CMS/HCC) Mixed hyperlipidemia Environmental and seasonal allergies Gastroesophageal reflux disease, unspecified whether esophagitis present Anxiety Anxiety state, unspecified Major depressive disorder with single episode, remission status unspecified (CMS/HCC) Colon cancer screening Special screening for malignant neoplasms, colon 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, with long-term current use of insulin, macular edema presence unspecified, unspecified laterality, unspecified proliferative retinop* (CMS/HC* Class 3 severe obesity due to excess calories without serious comorbidity with body mass index (BMI) of 40.0 to 44.9 in adult Anxiety and depression (CMS/HCC) Need for immunization against influenza Need for prophylactic vaccination and inoculation against influenza Diabetic ketoacidosis without coma associated with type 2 diabetes mellitus (CMS/HCC)- Primary 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, with long-term current use of insulin, macular edema presence unspecified, unspecified laterality, unspecified proliferative retinop* (CMS/HC* Class 3 severe obesity due to excess calories without serious comorbidity with body mass index (BMI) of 40.0 to 44.9 in adult Colon cancer screening Special screening for malignant neoplasms, colon Primary hypertension (CMS/HCC)- Primary Unspecified essential hypertension Type 2 diabetes mellitus with diabetic cataract (CMS/HCC) Type II or unspecified type diabetes mellitus with ophthalmic manifestations, not stated as uncontrolled 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) Gastroesophageal reflux disease, unspecified whether esophagitis present Adenocarcinoma of endometrium, stage 1 ([facility] [place]) Class 3 severe obesity due to excess calories without serious comorbidity with body mass index (BMI) of 40.0 to 44.9 in adult Anxiety and depression ([facility] [place]) Mixed hyperlipidemia ([facility]) Mixed hyperlipidemia Environmental and seasonal allergies Anxiety Anxiety state, unspecified Major depressive disorder with single episode, remission status unspecified ([facility] [place]) Colon cancer screening Special screening for malignant neoplasms, colon Anxiety Anxiety state, unspecified Major depressive disorder with single episode, remission status unspecified ([facility] [place]) Primary hypertension ([facility] [place]) Unspecified essential hypertension Mixed hyperlipidemia (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) Class 3 severe obesity due to excess calories without serious comorbidity with body mass index (BMI) of 40.0 to 44.9 in adult (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) Class 3 severe obesity due to excess calories without serious comorbidity with body mass index (BMI) of 40.0 to 44.9 in adult ([facility] [place]) Anxiety and depression shelter (current) use of insulin (Z79.4) Colon cancer screening Special screening for malignant neoplasms, colon Primary hypertension- Primary Unspecified essential hypertension Malignant neoplasm of endometrium (HCC) Malignant neoplasm of corpus uteri, except isthmus Opioid abuse, in remission ([facility] [place]) Opioid abuse, in remission Mixed hyperlipidemia Mixed hyperlipidemia Anxiety Anxiety state, unspecified Major depressive disorder with single episode, remission status unspecified Gastroesophageal reflux disease, unspecified whether esophagitis present Environmental and seasonal allergies Class 3 severe obesity due to excess calories without serious comorbidity with body mass index (BMI) of 40.0 to 44.9 in adult (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) Class 3 severe obesity due to excess calories without serious comorbidity with body mass index (BMI) of 40.0 to 44.9 in adult ([facility] [place]) Anxiety and depression Need for immunization against influenza Need for prophylactic vaccination and inoculation against influenza Diabetic ketoacidosis without coma associated with type 2 diabetes mellitus (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) Class 3 severe obesity due to excess calories without serious comorbidity with body mass index (BMI) of 40.0 to 44.9 in adult ([facility] [place]) Colon cancer screening Special screening for malignant neoplasms, colon Primary hypertension- Primary Unspecified essential hypertension Type 2 diabetes mellitus with diabetic cataract (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) Opioid abuse, in remission ([facility] [place]) Opioid abuse, in remission shelter (current) use of insulin ([facility]) Morbid (severe) obesity due to excess calories ([facility] [place]) Body mass index (BMI) 40.0-44.9, adult ([facility] [place]) Gastroesophageal reflux disease, unspecified whether esophagitis present Adenocarcinoma of endometrium, stage 1 ([facility]) Class 3 severe obesity due to excess calories without serious comorbidity with body mass index (BMI) of 40.0 to 44.9 in adult (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) Morbid (severe) obesity due to excess calories (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) Class 3 severe obesity due to excess calories without serious comorbidity with body mass index (BMI) of 40.0 to 44.9 in adult (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) Class 3 severe obesity due to excess calories without serious comorbidity with body mass index (BMI) of 40.0 to 44.9 in adult ([facility] [place]) Anxiety and depression shelter (current) use of insulin (Z79.4) Colon cancer screening Special screening for malignant neoplasms, colon Primary hypertension- Primary Unspecified essential hypertension Malignant neoplasm of endometrium (HCC) Malignant neoplasm of corpus uteri, except isthmus Opioid abuse, in remission ([facility] [place]) Opioid abuse, in remission Mixed hyperlipidemia Mixed hyperlipidemia Anxiety Anxiety state, unspecified Major depressive disorder with single episode, remission status unspecified Gastroesophageal reflux disease, unspecified whether esophagitis present Environmental and seasonal allergies Class 3 severe obesity due to excess calories without serious comorbidity with body mass index (BMI) of 40.0 to 44.9 in adult (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) Class 3 severe obesity due to excess calories without serious comorbidity with body mass index (BMI) of 40.0 to 44.9 in adult ([facility] [place]) Anxiety and depression Need for immunization against influenza Need for prophylactic vaccination and inoculation against influenza Diabetic ketoacidosis without coma associated with type 2 diabetes mellitus (HCC)- Primary 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, with long-term current use of insulin, macular edema presence unspecified, unspecified laterality, unspecified proliferative retinop* (C* ([facility]) Class 3 severe obesity due to excess calories without serious comorbidity with body mass index (BMI) of 40.0 to 44.9 in adult ([facility] [place]) Colon cancer screening Special screening for malignant neoplasms, colon Primary hypertension- Primary Unspecified essential hypertension Type 2 diabetes mellitus with diabetic cataract (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) Opioid abuse, in remission ([facility] [place]) Opioid abuse, in remission shelter (current) use of insulin ([facility]) Morbid (severe) obesity due to excess calories ([facility] [place]) Body mass index (BMI) 40.0-44.9, adult ([facility] [place]) Gastroesophageal reflux disease, unspecified whether esophagitis present Adenocarcinoma of endometrium, stage 1 ([facility]) Class 3 severe obesity due to excess calories without serious comorbidity with body mass index (BMI) of 40.0 to 44.9 in adult (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) Morbid (severe) obesity due to excess calories ([facility]) Encounter for subsequent annual wellness visit (AWV) in Medicare patient- Primary Primary hypertension Unspecified essential hypertension Gastroesophageal reflux disease, unspecified whether esophagitis present 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, with long-term current use of insulin, macular edema presence unspecified, unspecified laterality, unspecified proliferative retinop* (C* (HCC) Morbid (severe) obesity due to excess calories (CMS-HCC) Morbid obesity due to excess calories (CMS-HCC) Anxiety and depression Mixed hyperlipidemia Mixed hyperlipidemia Anxiety Anxiety state, unspecified Major depressive disorder with single episode, remission status unspecified [facility] Diagnosis 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, unspecified whether bus girl insulin use (HCC)- Primary 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, bilateral documented in this encounter [facility] general Narrative - Reported* Type Description Date Medical History DM 2 Medical HistoryHYPERTENSIONMedical HistoryDEPRESSIONMedical HistoryOpioid abuse Medical Historyretinopathy bilateral eyesSurgical HistoryRIGHT EYE SURGERY Surgical HistoryLT eye surgerySurgical Historyhysterectomy04/2017Hospitalization HistoryDKA3/2020Hospitalization HistoryDKA11/02/2019 [facility] Other History general Narrative - [facility]ortedNortBro[facility] Other Hospital Discharge instructions No data available for this section [facility] Surgery Ranjith Progress note No data available for this section [facility] Surgery [place] Reason for referral (narrative)* Consultation (Routine) - Pending ReviewSpecialtyDiagnoses / ProceduresReferred By ContactReferred To ContactGeneral Surgery Diagnoses Colon cancer screening Procedures SD OFFICE/OUTPATIENT [facility] 60 MINUTES Sonya Mejia NP [address] [place] [address] Aram Casey DO [address] [facility] [address] [place] [address] Referral IDStatusReasonStart DateExpiration DateVisits RequestedVisits [id number] Review Specialty Services Required / DAY HealthcareReason for referral (narrative)No reason for referral information availableUniversity [facility]als [facility] Work Phone: Chief Complaint and Reason for Visit Chief Complaint DM Screening Chief Complaint e11.65 e78.5 DM Chief Complaint DM K59.00 Unspecified Constipation/spes drop Chief Complaint DM Chief Complaint DM DMN f/u / meterReason for VisitType 2 diabetes mellitus with hyperglycemia Chief Complaint DM DMN f/u / meter E11.65Reason for VisitType 2 diabetes mellitus with hyperglycemia ADHD BMI 40.0-44.9, adult Fatty liver 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 disease) shelter current use of insulin Noncompliance with medication regimen Retinopathy of both eyes Type 2 diabetes mellitus with hyperglycemia Weight gain Chief Complaint DMN f/u / meter E11.65 DL per DSReason for VisitADHD BMI 40.0-44.9, adult Fatty liver 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 disease) 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 Noncompliance with medication regimen Retinopathy of both eyes Type 2 diabetes mellitus with hyperglycemia Weight gain Type 2 diabetes mellitus with hyperglycemia Chief Complaint DL per DS DMN f/u / meterReason for VisitType 2 diabetes mellitus with hyperglycemia ADHD BMI 40.0-44.9, adult Fatty liver 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 disease) shelter current use of insulin Noncompliance with medication regimen Retinopathy of both eyes Type 2 diabetes mellitus with hyperglycemia Weight gain Chief Complaint DL per DS DMN f/u / meter 2 week DLReason for VisitType 2 diabetes mellitus with hyperglycemia ADHD BMI 40.0-44.9, adult Fatty liver 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 disease) shelter current use of insulin Noncompliance with medication regimen Retinopathy of both eyes Type 2 diabetes mellitus with hyperglycemia Weight gain Type 2 diabetes mellitus with hyperglycemia Chief Complaint DMN f/u / meter 2 week DL DMN f/u-METERReason for VisitADHD BMI 40.0-44.9, adult Fatty liver 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 disease) 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 Noncompliance with medication regimen Retinopathy of both eyes Type 2 diabetes mellitus with hyperglycemia Weight gain Type 2 diabetes mellitus with hyperglycemia Chief Complaint Admit Date 2 week DL December 17, 2023 12 :57pm DMN f/u-METER January 22, 2024 1: 52pm lvm to move appt 02-07-2024 METER Novemb 2023 12:56pm Reason for Visit Admit Date Type 2 diabetes mellitus with hyperglyce juan December 17, 2023 12:57pm ADHD January 22, 2024 1: 52pm BMI 40.0-44.9, adult January 22, 2024 1 :52pm Fatty liver January 22, 2024 1: 52pm 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 disease) O ctober 2023 1:52pm 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 January 22, 2024 [...] 12:56pm HLD (hyperlipidemia) March 03, 2024 12:56pm 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 Novembe r 2023 [...] 12:56pm HLD (hyperlipidemia) March 03, 2024 12:56pm 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 Novembe r 2023 12:56pm Noncompliance with medication regimen No vember 2023 12:56pm Retinopathy of both eyes March 03, 2024 12:56pm Type 2 diabetes mellitus with hyperglyce juan November 11th, 2024 12:56pm Weight gain March 03, 2024 [...] 3 month-DMN f/u June 19, 2024 2:53pm Chief Complaint Admit Date Unknown June 04, 2024 1:53pm 3 month-DMN f/u June 19, 2024 2:53pm high sugar August 07, 2024 4:1 0pm DMN f/u August 12, 2024 12: 55pm Reason for Visit Admit Date ADHD June 19, 2024 2:53pm BMI 40.0-44.9, adult June 19, 2024 2:53pm Fatty liver June 19, 2024 2:53pm 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 disease) F ebruary 2024 2:53pm HLD (hyperlipidemia) June 19, 2024 2:53pm shelter current use of insulin Februar y 2024 2:53pm Noncompliance with medication regimen Fe bruary 2024 2:53pm Retinopathy of both eyes June 19, 2024 2:53pm Type 2 diabetes mellitus with hyperglyce juan June 19, 2024 2:53pm Weight gain June 19, 2024 2:53pm ADHD August 12, 2024 12: 55pm BMI 40.0-44.9, adult August 12, 2024 12 :55pm Fatty liver August 12, 2024 12: 55pm 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 disease) A pril 2024 12:55pm HLD (hyperlipidemia) August 12, 2024 12 :55pm 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 July 232024 12:55pm Noncompliance with medication regimen Ap ril 2024 12:55pm Retinopathy of both eyes August 12 12:55pm Type 2 diabetes mellitus with hyperglyce juan August 12, 2024 12:55pm Weight gain August 12, 2024 12: 55pm Chief Complaint Admit Date high sugar August 07, 2024 4:1 0pm DMN f/u August 12, 2024 12: 55pm 6 week DL-METER September 23, 2024 12:50 pm Reason for Visit Admit Date ADHD August 12, 2024 12: 55pm BMI 40.0-44.9, adult August 12, 2024 12 :55pm Fatty liver August 12, 2024 12: 55pm 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 disease) A pril 2024 12:55pm HLD (hyperlipidemia) August 12, 2024 12 :55pm HTN (hypertension) August 12, 2024 12: 55pm Hypercortisolism August 12, 2024 12: 55pm 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 July 232024 12:55pm Noncompliance with medication regimen Ap ril 2024 12:55pm Retinopathy of both eyes August 12 12:55pm Type 2 diabetes mellitus with hyperglyce juan August 12, 2024 12:55pm Weight gain August 12, 2024 12: 55pm Chief Complaint Admit Date high sugar August 07, 2024 4:1 0pm DMN f/u August 12, 2024 12: 55pm 6 week DL-METER September 23, 2024 12:50 pm Unknown October 30, 2024 12:3 0pm Reason for Visit Admit Date ADHD August 12, 2024 12: 55pm BMI 40.0-44.9, adult August 12, 2024 12 :55pm Fatty liver August 12, 2024 12: 55pm 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 disease) A pril 2024 12:55pm HLD (hyperlipidemia) August 12, 2024 12 :55pm HTN (hypertension) August 12, 2024 12: 55pm Hypercortisolism August 12, 2024 12: 55pm 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 July 232024 12:55pm Noncompliance with medication regimen Ap ril 2024 12:55pm Retinopathy of both eyes August 12 12:55pm Type 2 diabetes mellitus with hyperglyce juan August 12, 2024 12:55pm Weight gain August 12, 2024 12: 55pm Type 2 diabetes mellitus with hyperglyce juan September 23, 2024 12:50pm Chief Complaint Admit Date high sugar August 07, 2024 4:1 0pm DMN f/u August 12, 2024 12: 55pm 6 week DL-METER September 23, 2024 12:50 pm Unknown October 30, 2024 12:3 0pm 12 week-DMN f/u November 04, 2024 12:5 1pm Reason for Visit Admit Date ADHD August 12, 2024 12: 55pm BMI 40.0-44.9, adult August 12, 2024 12 :55pm Fatty liver August 12, 2024 12: 55pm 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 disease) A pril 2024 12:55pm HLD (hyperlipidemia) August 12, 2024 12 :55pm HTN (hypertension) August 12, 2024 12: 55pm Hypercortisolism August 12, 2024 12: 55pm 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 July 232024 12:55pm Noncompliance with medication regimen Ap ril 2024 12:55pm Retinopathy of both eyes August 12 12:55pm Type 2 diabetes mellitus with hyperglyce juan August 12, 2024 12:55pm Weight gain August 12, 2024 12: 55pm Type 2 diabetes mellitus with hyperglyce juan September 23, 2024 12:50pm ADHD November 04, 2024 12:5 1pm BMI 40.0-44.9, adult November 04, 2024 12: 51pm Fatty liver November 04, 2024 12:5 1pm 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 disease) J jamshid 2024 12:51pm HLD (hyperlipidemia) November 04, 2024 12: 51pm HTN (hypertension) November 04, 2024 12:5 1pm Hypercortisolism November 04, 2024 12:5 1pm 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 November 042024 12:51pm Noncompliance with medication regimen Ju ly 2024 12:51pm Retinopathy of both eyes November 04, 2024 12:51pm Type 2 diabetes mellitus with hyperglyce juan November 04, 2024 12:51pm Weight gain November 04, 2024 12:5 1pm Chief Complaint Admit Date Unknown October 30, 2024 12:3 0pm 12 week-DMN f/u November 04, 2024 12:5 1pm 8 week December 30, 2024 12:48pm Reason for Visit Admit Date ADHD November 04, 2024 12:5 1pm BMI 40.0-44.9, adult November 04, 2024 12: 51pm Fatty liver November 04, 2024 12:5 1pm 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 disease) J jamshid 2024 12:51pm HLD (hyperlipidemia) November 04, 2024 12: 51pm HTN (hypertension) November 04, 2024 12:5 1pm Hypercortisolism November 04, 2024 12:5 1pm 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 November 042024 12:51pm Noncompliance with medication regimen Ju ly 2024 12:51pm Retinopathy of both eyes November 04, 2024 12:51pm Type 2 diabetes mellitus with hyperglyce juan November 04, 2024 12:51pm Weight gain November 04, 2024 12:5 1pm Advance Directives Advance Directive Response Recorded Date/ Time Advance Directives No January 31, 2018 4:17pm Advance Directive Response Recorded Date/ Time Advance Directives No January 31, 2018 3:17pm Reason for Referral Reason Establish Diabetic F oot Care, Callous on left big toe Diagnosis 1 Type 2 diabetes marti itus with hyperglycemia (E11.65) Diagnosis 2 Callus of toe (L84) Referral Organization [facility] Referring Provider First Name Glenna Referring Provider Last Name Joni Referring Provider Specialty Nurse Pract itioner Referred Organization Podiatry Referred Address [address],[place],[address] Referred Provider Specialty Podiatry - S urgical Chiropody Referral Priority Routine General Notes Glenna Calvo 09/21 01:17:35 PM > Note not closed yet Summary Purpose Family History Relationship Condition Age at Onset Recorded Date/T jocy Not Specified Family history unknown Unknown fatherDiabetes mellitusUnknownNot SpecifiedDiabetes mellitusUnknownNo Family History Records Found Additional Source Comments [...] FOR VISIT (unrecogniz ed section and content) ReasonCommentsDiabetic Retinopathy Follow UpReasonCommentsMed RefillReason CommentsProliferative Diabetic Retinopathy Follow UpReasonCommentsDiabetesReason CommentsAbdominal Pain Source Comments (unrecognize d section and content) In the event this informatio n is protected by the Federal Confidentiality of Alcohol and Drug Abuse Patient Records regulations: The Federal rules restrict any use of the information to criminally investigate or prosecute any alcohol or drug abuse patient.[facility] HospitalIn the event this information is protected by the Federal Confidentiality of Alcohol and Drug Abuse Patient Records regulations: The Federal rules restrict any use of the information to criminally investigate or prosecute any alcohol or drug abuse patient.[facility] HospitalIn the event this information is protected by the Federal Confidentiality of Alcohol and Drug Abuse Patient Records regulations: The Federal rules restrict any use of the information to criminally investigate or prosecute any alcohol or drug abuse patient.[facility] HospitalIn the event this information is protected by the Federal Confidentiality of Alcohol and Drug Abuse Patient Records regulations: The Federal rules restrict any use of the information to criminally investigate or prosecute any alcohol or drug abuse patient.[facility] Care Teams (unrecognized sec tion and content) Team Status: Active Member Role Status Dates Sonya Mejia Primary Care Provider Active Team Status: Active Member Role Status Dates Sonya Mejia Primary Care Provider Active Sta rt: October 29, 2024 Екатерина Gan ProviderActiveStart: October 29, 2024 Team Status: Inactive Member Role Status Dates Sonya Mejia Primary Care Provider Active Sta rt: October 30, 2024 End: October 30, 2024Sonya Aguiar ProviderActiveStart: October 30, 2024 End: October 30, 2024 Team Status: Inactive Member Role Status Dates Sonya Mejia Primary Care Provider Active Sta rt: November 04, 2024 End: November 04, 2024Екатерина Gan ProviderActiveStart: November 04, 2024 End: November 04, 2024 Team Status: Inactive Member Role Status Dates Sonya Mejia Primary Care Provider Active Sta rt: December 30, 2024 End: December 30, 2024Nathan Raftery , RNAttending ProviderActiveStart: December 30, 2024 End: December 30, 2024 Team Status: Active Member Role Status Dates Sonya Mejia Primary Care Provider Active Team Status: Inactive Member Role Status Dates Sonya Timothy Mejia Primary Care Provider Active Sta rt: August 07, 2024 End: August 07, 2024Sorin Mace ProviderActiveStart: August 07, 2024 End: August 07, 2024 Team Status: Inactive Member Role Status Dates Sonya Mejia Primary Care Provider Active Sta rt: August 12, 2024 End: August 12, 2024Dedianne Quinones , APRNAttending ProviderActiveStart: August 12, 2024 End: August 12, 2024 Team Status: Inactive Member Role Status Dates Sonya Timothy Mejia Primary Care Provider Active Sta rt: September 23, 2024 End: September 23, 2024Blane Downs RNAttending ProviderActiveStart: September 23, 2024 End: September 23, 2024 Team Status: Inactive Member Role Status Dates Sonya Timothy Mejia Primary Care Provider Active Sta rt: October 30, 2024 End: October 30, 2024Sonya Aguiar ProviderActiveStart: October 30, 2024 End: October 30, 2024 Team Status: Active Member Role Status Dates Sonya Timothy Mejia Primary Care Provider Active Sta rt: July 10, 2024 Glenna Quinones , APRNAttending ProviderActiveStart: July 10, 2024 Team Status: Inactive Member Role Status Dates Sonya Mejia Primary Care Provider Active Sta rt: September 23, 2024 End: September 23, 2024Glenna Quinones , APRNActiveStart: September 23, 2024 End: September 23, 2024Blane Downs RNAttending ProviderActiveStart: September 23, 2024 End: September 23, 2024 Team Status: Inactive Member Role Status Dates [facility] Primary Care Provider Active Start: May 28, 2023 End: May 28, 2023Tondra Sharad Beyer , APRNAttending ProviderActiveStart: May 28, 2023 End: May 28, 2023Team MemberRelationshipSpecialtyStart DateEnd Date Jessica Owens MD [address] [place] [address] [facility]18 Team Status: Active Member Role Status Dates [facility] Primary Care Provider Active Mariam Beyer , APRNAttengeremias ProviderActive Team Status: Inactive Member Role Status Dates Sonya Timothy Mejia Primary Care Provider Active Glenna Quinones APRNAttending ProviderActive Team Status: Inactive Member Role Status Dates Sonya Timothy Mejia Primary Care Provider Active Mark Gramajo APRNAttengeremias ProviderActiveTeam MemberRelationshipSpecialty Start DateEnd Date Abad Garcia MD PCP - [facility]11/13/22 Sonya Mejia NP [address] [place] [address] Referring PhysicianNurse Practitioner11/13/22Team MemberRelationshipSpecialty Start DateEnd Date Abad Garcia MD [address] [place] [address] PCP - [facility]06/07/23 Sonya Mejia NP [address] [place] [address] Referring PhysicianNurse Practitioner11/13/22 Sonya Mejia NP [address] [place] [address] Nurse PractitionerPoc[facility]ontas [facility] Hospitally Medicine06/07/23Team MemberRelationshipSpecialtyStart DateEnd Date Abad Garcia MD [address] [place] [address] PCP - [facility]06/07/23 Sonya Mejia NP [address] [place] [address] Referring PhysicianNurse Practitioner11/13/22 Sonya Mejia NP [address] [place] [address] [facility]06/07/23Team MemberRelationshipSpecialtyStart DateEnd Date Jessica Owens MD [address] [place] [address] PCP - [facility] Medicine06/07/18 Team Status: Active Member Role Status Dates Sonya Mejia Primary Care Provide r, Attending Provider Active Start: May 28, 2023 Team Status: Inactive Member Role Status Dates Sonya Mejia Primary Care Provider Active Sta rt: June 26, 2023 End: June 26, 2023Blane Downs RNAttending ProviderActiveStart: June 26, 2023 End: June 25eboradanish Katzly , APRNActiveStart: June 26, 2023 End: June 26, 2023 Team Status: Inactive Member Role Status Dates Sonya Mejia Primary Care Provider Active Sta rt: August 21, 2023 End: August 20eboradanish Katzly , APRNAttending ProviderActiveStart: August 21, 2023 End: August 21, 2023 Team Status: Inactive Member Role Status Dates Sonya Mejia Primary Care Provider Active Sta rt: October 11, 2023 End: October 10rijoan Witt RNAttending ProviderActiveStart: October 11, 2023 End: October 10eborah C Scally , APRNActiveStart: October 11, 2023 End: October 11, 2023 Team Status: Inactive Member Role Status Dates Sonya Joaquindanishclyde Primary Care Provider Active Sta rt: November 26, 2023 End: November 25eboradanish C Scally , APRNAttending ProviderActiveStart: November 26, 2023 End: November 26, 2023 Team Status: Inactive Member Role Status Dates Sonya Timothy Joaquindanishclyde Primary Care Provider Active Sta rt: December 17, 2023 End: December 16rittany Frangella , RNAttending ProviderActiveStart: December 17, 2023 End: December 16eboradanish Belcher Scally , APRNActiveStart: December 17, 2023 End: December 17, 2023 Team Status: Inactive Member Role Status Dates Sonya Mejia Primary Care Provider Active Sta rt: January 22, 2024 End: January 21eboradanish Belcher Scally , APRNAttending ProviderActiveStart: January 22, 2024 End: January 22, 2024Team MemberRelationshipSpecialtyStart DateEnd Date Abad Garcia MD [address] [place] [address] PCP - [facility] Medicine06/07/23 Sonya Mejia NP [address] [place] [address] Referring PhysicianNurse Practitioner11/13/22 Sonya Mejia NP [address] [place] [address] Nurse PractitionerSaint [facility] Medicine06/07/23Team MemberRelationshipSpecialtyStart DateEnd Date Abad Garcia MD [address] [place] [address] PCP - [facility]06/07/23 Sonya Mejia NP [address] [place] [address] Referring PhysicianNurse Practitioner11/13/22 Sonya Mejia NP [address] [place] [address] Nurse [facility]06/07/23Team MemberRelationshipSpecialtyStart DateEnd Date Abad Garcia MD [address] [place] [address] PCP - [facility] Medicine06/07/23 Sonya Mejia NP [address] [place] [address] Referring PhysicianNurse Practitioner11/13/22 Sonya Mejia NP [address] [place] [address] Nurse Pract[facility]erP[facility]06/07/23Team MemberRelationshipSpecialtyStart DateEnd Date Unallocated, Day Trotter MD [address] [place] [address] PCP - [facility] Vspbhfoy90/22/24 Sonya Mejia NP [address] [place] [address] Referring PhysicianNurse Practitioner11/13/22 Sonya Mejia NP [address] [place] [address] Nurse PractitionerP[facility]ont[facility]ally Medicine06/07/23Team MemberRelationshipSpecialtyStart DateEnd Date Unallocated, Noms ProviderMD [address] [place] [address] PCP - GeneralFamily Irlouoyb67/22/24 Sonya Mejia, ABBE [address] [place] [address] Referring PhysicianNurse Practitioner11/13/22 Sonya Mejia NP [address] [place] [address] Nurse PractitionerSaint [facility] Medicine06/07/23Team MemberRelationshipSpecialtyStart DateEnd Date Unallocated, Day Trotter MD [address] [place] [address] [facility] - [facility] Zeiroety09/22/24 Sonya Mejia NP [address] [place] [address] Referring PhysicianNurse Practitioner11/13/22 Sonya Mejia NP [address] [place] [address] Nurse PractitionerSaint [facility] Medicine06/07/23 Team Status: Active Member Role Status Dates Sonya Mejia Primary Care Provider Active Sta rt: February 11, 2024 End: February 12dmitri Goel , DOAttending ProviderActiveStart: February 11, 2024 End: February 13, 2024Shaikh Pasquale , MDReferring ProviderActiveStart: February 11, 2024 End: February 13, 2024 Team Status: Inactive Member Role Status Dates Sonya Mejia Primary Care Provider Active Sta rt: March 03, 2024 End: March 03ebjeff Simi Joni APRNAttengeremias ProviderActiveStart: March 03, 2024 End: March 03, 2024Team MemberRelationshipSpecialtyStart DateEnd Date Abad Garcia MD [address] [place] [address] PCP - GeneralFamily Obcaejsv60/31/24 Sonya Mejia NP [address] [place] [address] Referring PhysicianNurse Practitioner11/13/22 Sonya Mejia NP [address] [place] [address] Nurse PractitionerFaorly Medicine06/07/23Team MemberRelationshipSpecialtyStart DateEnd Date Abad Garcia MD [address] [place] [address] PCP - GeneralFamily Vnyjgboi24/31/24 Sonya Mejia NP [address] [place] [address] Referring PhysicianNurse Practitioner11/13/22 Sonya Mejia NP [address] [place] [address] Nurse PractitionerFaorly Medicine06/07/23 Team Status: Inactive Member Role Status Dates Sonya Mejia Primary Care Provider Active Sta rt: May 15, 2024 End: May 15, 2024GONZALO Lantiguattwalker ProviderActiveStart: May 15, 2024 End: May 15, 2024Glenna Quinones APRNActiveStart: May 15, 2024 End: May 15, 2024Team MemberRelationshipSpecialtyStart DateEnd Date Jessica Owens MD [facility] [place] [address] PCP - [facility]06/07/18 Team Status: Inactive Member Role Status Dates Donell Mcgrath MD FACS Attending Provider Active Start: June 04, 2024 End: June 04, 2024 Team Status: Inactive Member Role Status Dates Sonya Mejia Primary Care Provider Active Sta rt: June 19, 2024 End: June 19, 2024Meliza Gantending ProviderActiveStart: June 19, 2024 End: June 19, 2024Team MemberRelationshipSpecialtyStart DateEnd Date Abad Garcia MD [address] [place] [address] PCP - [facility]02/21/24 Sonya Mejia NP [address] [place] [address] Referring PhysicianNurse Practitioner11/13/22 Sonya Mejia NP [address] [place] [address] Nurse PractitionerSaint [facility] Medicine06/07/23Team MemberRelationshipSpecialtyStart DateEnd Date Abad Garcia MD [address] [place] [address] PCP - GeneralFamily Dosbkrkv23/31/24 Sonya Mejia NP [address] [place] [address] Referring PhysicianNurse Practitioner11/13/22 Sonya Mejia NP [address] [place] [address] Nurse PractitionerFamily Medicine06/07/23Team MemberRelationshipSpecialtyStart DateEnd Date Abad Garcia MD [address] [place] [address] PCP - GeneralFamily Zuxkwtvf17/31/24 Sonya Mejia NP [address] [place] [address] Referring PhysicianNurse Practitioner11/13/22 Sonya Mejia NP [address] [place] [address] Nurse Practitionermily Medicine06/07/23Team MemberRelationshipSpecialtyStart DateEnd Date Abad Garcia MD [address] [place] [address] PCP - GeneralFamily Igjnxptk36/31/24 Sonya Mejia NP [address] [place] [address] Referring PhysicianNurse Practitioner11/13/22 Sonya Mejia NP [address] [place] [address] Nurse PractitionerSaint [facility] Medicine06/07/23Team MemberRelationshipSpecialtyStart DateEnd Date Abad Garcia MD [address] [place] [address] [facility] - [facility] Ipscjipl12/31/24 Sonya Mejia NP [address] [place] [phone] Referring PhysicianNurse Practitioner11/13/22 Sonya Mejia NP [address] [place] [phone] [facility]06/07/23Team MemberRelationshipSpecialtyStart DateEnd Date Abad Garcia MD [address] [place] [phone] [facility] - [facility] Utujxszq17/31/24 Sonya Mejia NP [address] [place] [address] Referring PhysicianNurse Practitioner11/13/22 Sonya Mejia NP [address] [place] [phone] Nurse Pract[facility]erSaint [facility] Medicine06/07/23 Team Status: Inactive Member Role Status Dates Sonya Mejia Primary Care Provider Active Sta rt: November 04, 2024 End: November 04, 2024Екатерина Gan ProviderActiveStart: November 04, 2024 End: November 04, 2024Team MemberRelationshipSpecialtyStart DateEnd Date Abad Garcia MD [address] [place] [phone] PCP - Generalmi Gvozxdjt27/31/24 Sonya Mejia NP [address] [place] [phone] [facility]11/13/22 Sonya Mejia NP [address] [place] [phone] Nurse PractitionerSaint [facility] Medicine06/07/23Team MemberRelationshipSpecialtyStart DateEnd Date Jessica Owens MD [facility] [place] [address] PCP - [facility] Medicine06/07/18 Team Status: Active Member Role Status Dates Sonya Mejia Primary Care Provider Active Sta rt: October 29, 2024 Екатерина Gan ProviderActiveStart: October 29, 2024 Team Status: Inactive Member Role Status Dates Sonya Mejia Primary Care Provider Active Sta rt: December 30, 2024 End: December 30, 2024Argenis Lantigua ProviderActiveStart: December 30, 2024 End: December 30, 2024 INFORMATION SOURCE (unrecogn ized section and content) DATE CREATED AUTHOR 09/07/2022 [facility] DATE CREATED AUTHOR AUTHOR'S ORGANIZ ATION 06/20/2024 [facility] DATE CREATED AUTHOR AUTHOR'S ORGANIZ ATION 11/01/2024 [facility] DATE CREATED AUTHOR AUTHOR'S ORGANIZ ATION 11/05/2024 [facility] DATE CREATED AUTHOR AUTHOR'S ORGANIZ ATION 12/02/2024 [facility] Inactive Administered Medications - up to 3 most recent administrations Administered Medications (un recognized section and content) Medication OrderMAR ActionAction DateDoseRateSite PHENYLephrine 2.5 % 1 Drop (AK-DILATE, JESU-SYNEPHRINE) 1 Drop, BOTH EYES, DIRECTED, Starting on Sun08/07/23 at 1300, Until Sun08/08/23 at 0059, Administer for dilation PROTECT FROM LIGHT, OPHT CLINIC MED ORDERS Given08/07/2023 1:00 PM EDT1 Drop proparacaine 0.5 % 1 Drop (ALCAINE) 1 Drop, BOTH EYES, DIRECTED, Starting on Sun08/07/23 at 1300, Until Sun08/08/23 at 0059, Administer for pneumo tonometry, tonopen tonometry, or pachymetry. In the event of a proparacaine shortage,administer 1 drop of tetracaine 0.5% ophthalmic drops into both eyes as directed for pneumo tonometr y, tonopen tonometry, or pachymetry, [facility]HT CLINIC MED ORDERS Given08/07/2023 1:00 PM EDT1 Drop tropicamide 1 % 1 Drop (MYDRIACYL) 1 Drop, BOTH EYES, DIRECTED, Starting on Sun08/07/23 at 1300, Until Sun08/08/23 at 0059, Administer for dilation, OPHT CLINIC MED ORDERS Given08/07/2023 1:00 PM EDT1 Drop FOR RECORDS PERTAINING TO PATIENTS WHO [...] BE BASED ON THE PRIMARY CLINICAL RECORDS. [facility]. provides no warranty or guarantee of the accuracy or completeness of information in this document.
--- OUTSIDE RECORDS SUMMARY | 2025-02-11 00:01 | XMS_ITS | Clinical Summary ---
Author Organization [facility] Address [address] [facility] [address] [place] [address] Care Team Providers Care Pile Driving Supervisor Name Role Phone Unavailable Primary Care Provider Unavailabl e Source Comments The following information is NOT included in Care Everywhere downloads:Psychiatric notes, ECG results, Cardiac Rehab notes, Pulmonary Function notes, data from SmartForms (includes but not limited toPregnancy data,audiograms, eye exams, pre-surgical evaluation notes, well-child exam data).[facility] Immunizations ImmunizationAdministration DatesNext DueInfluenza, injectable, quadrivalent, preservative free (CSD=948)01/15/2021,12/26/2019,01/08/2019,12/31/2017Influenza, injectable, trivalent, preservative (ZCR=915)12/19/2016Influenza, injectable, trivalent, preservative free (LVJ=118)12/11/2015,11/26/2014 Social History Tobacco UseTypesPacks/DayYears UsedDateSmoking Tobacco: Never Assessed CommentsUnknownSex and Gender InformationValueDate RecordedSex Assigned at Not on fileLegal EncGzelou08/05/2020 7:23 PM ESTGender IdentityNot on fileSexual OrientationNot on file Plan of Treatment Health MaintenanceDue DateLast EetrVfhghotqGcnkzpqjsem90/22/1978HIV Test 1992Hepatitis C Vvshfqen15/22/1996Tdap Hhlqirk0906/14/1995Hepatitis A (HAV) Vaccine (optional start 19+ years)1996Hepatitis B (HBV) Vaccine (1 of 3 - 19+ 3-dose series)1996Tetanus (Td or Tdap) Ziiwoxy3906/14/1996Pap Smear 06/14/19982604Klxaqhbyind24/22/2018CRC Grmuyigku74/22/2705Tdwrsoimwsl85/22/2023 Cologuard (Stool DNA)2022FIT2022OVID-19 Vaccine ( season)5106/07/2020, 07/01/2020Influenza Vaccine (#1)2024 01/15/2021, 12/26/2019, 01/08/2019, Additional history existsShingles (RZV) Vaccine (1 of 2)2027Pneumococcal Vaccine(s)Aged OutNo longer eligible based on patient's age to complete this topic Insurance
--- OUTSIDE RECORDS SUMMARY | 2025-02-11 00:01 | XMS_ITS | Patient Health Record ---
Author Organization [facility] Address [address] [place] [address] Support Name Relationship Address Phone CHIDI REVELES Emergency Contact [address] [place] [address] HE REVELES Guarantor Unknown [phone] Allergies Allergen (clinical drug ingredient) Drug/Non Drug Allergy documented on EMR Reaction Allergy Type Onset Date Status dulaglutide Trulicity vomiting Drug Allergy Active Reason For Referral No Information Medications Medication SIG (Take, Route, Frequency, Duration) Notes Start Date End Date Status Atorvastatin Calcium 40 MG Tablet TAKE 1 TABLET BY MOUTH ONCE DAILY; Duration: 90 days ActivemetFORMIN HCl 1000 MG Tablet1 tablet with a meal Oral BID; Duration: 30 daysActiveZofran ODT 4 mg tablet1 tablet on the tongue allow to dissolve oral as needed; Duration: 5 daysActiveSertraline HCl 25 MG Tablet1 tablet Orally Once a day; Duration: 90 daysActiveGlucometer - -Place 1 Drop of Blood Externally TID 07/16/2019ActiveLoratadine 10 MG Tablet1 tablet Orally Once a dayOTCActiveV-Go 40 - Kitas directedW/ NOVOLOGActiveOmeprazole 40 MG Capsule Delayed ReleaseTAKE 1 CAPSULE BY MOUTH DAILY Oral; Duration: 30ActiveLisinopril 40 MG Tablet1 tablet Orally Once a day; Duration: 90 day(s)Active Social History Tobacco Use: Social History Observation Description Date Details (start date - stop date) Never Smoker NA - NA Social History GeneralSocial InfoQuestionAnswerNotesTransition of Care:ER/UC/hospital since last office visit?Yes, report on fileSpecialist seen since last office visit?No Endocrinology - notes requestedSubstance abuse/mental health issues of patient/familyPatient -Rx Drug Abuse,Caffeine UseSoda, coffee, history of percocet addictionAbility to understand healthcare/treatmentPatient:FairTobacco Screen:Are you a:never smokerSexual Hx:Had sex in the last 12 months (vaginal, oral, or anal)?NoHave you ever had an STD?NoLMP:04/24/2017Social/Support Concerns:Patient:NoAlcohol Screening:Did you have a drink containing alcohol in the past year?PkBxkzxq0HygrizeehjbwupTftrkrmoCynggkfth affecting health Poor/Risky Behaviors:Denies-Communication Barrier:Language Barrier?:No Problems Problem Type SNOMED Code ICD Code Onset Dates Problem Status W/U Status Risk Notes Problem Disorder due to type 2 diabetes mellitus (240693189) Type 2 diabetes mellitus with unspecified complications (E11.8) ActiveconfirmedProblemEssential hypertension (54451957)Essential hypertension (I10)ActiveconfirmedProblemDyslipidemia (932743977)Dyslipidemia (E78.5)Active confirmedProblemRecurrent major depression in remission (55716249)Recurrent major depressive disorder, in partial remission (F33.41)ActiveconfirmedProblem Recurrent major depression in full remission (91834347)Recurrent major depressive disorder, in full remission (F33.42)Activeconfirmed Plan Of Treatment No Information Insurance Providers Payer Name Payer Address Payer Phone Subscriber Number Group Number Insured Name Patient Relationship to Insured Coverage Start Date Coverage End Date MEDICARE CGS 1 [address] [facility] [place] [address] [id number] CHRIS REVELESelf - patient is the [id number] 2021MEDICAID [facility] [address] [place] [id number], CHRISTYSelf - patient is the [id number] 2021 Medical (General) History Medical History History ICD Code Type 2 diabetes mellitus without complic ations E11.9 Essential (primary) hypertension I10 Depression F32.9 Surgical History Surgery Date(Month/Year) Total Hysterectomy 04/2017 Retina reattachment, left 09/2017 Retina reattachment, right 07/2016 Uterine exploratory surgery 2017 Hospitalization History Reason Date(Month/Year) DKA 10/2019 DKA 06/2019 Low K+ 02/2018 Low K+ 01/2018
--- OUTSIDE RECORDS SUMMARY | 2025-02-11 00:02 | XMS_ITS | Clinical Summary ---
Author Organization [facility] Healthcare Address [address] [place] [address] Care Team Providers Care Blunger Name Role Phone Sonya Mejia NP Unavailable [phone] Sonya Mejia BRIMMER BLOCKER Unavailable [phone] Abad Garcia MD Primary Care Provider [phone] Allergies Active AllergyReactionsCriticalityNoted QuzdNaxwhblgOzltqiondoe90/29/2022 Other Reaction(s): vomiting Medications MedicationSigDispense QuantityRefillsLast FilledStart DateEnd DateStatus metFORMIN (Glucophage) 1000 MG tablet Take 1,000 mg by mouth every 12 (twelve) hours.Active Insulin Disposable Pump (V-Go 40) 40 UNIT/24HR kit Inject 1 Pump as directed in the morning.01/08/2023ctive insulin syringe-needle U-100 (B-D INS SYR HALF-UNIT .3CC/31G) 31G X 5/16 0.3 mL misc Inject 1 each under the skin 4 (four) times a day as needed Use as instructed Active Lancets Micro Thin 33G misc 1 Lancet in the morning and 1 Lancet at noon and 1 Lancet in the evening and 1 Lancet before bedtime.Active Multiple Vitamins-Minerals (ONE-A-DAY WOMENS PO) Take 1 tablet by mouth in the morning.Active ammonium lactate (Lac-Hydrin) 12 % lotion 1 application every 12 (twelve) hoursActive Fiasp 100 UNIT/ML solution inject as directed four times a day (EXPECT 100 UNITS PER DAY)05/29/2023ctive amLODIPine (Norvasc) 10 MG tablet Take 10 mg by mouth Daily4Active Mounjaro 12.5 MG/0.5ML solution auto-injector INJECT 12.5 MG UNDER THE SKIN ONE DAY A WEEK5Active omeprazole (PriLOSEC) [address] capsule Indications:Gastroesophageal reflux disease, unspecified whether esophagitis presentTake 1 capsule (40 mg) by mouth in the morning. Take before meals. 90 capsule 5Active loratadine (Claritin) 10 MG tablet Indications:Environmental and seasonal allergiesTake 1 tablet (10 mg) by mouth Daily Take 10 mg by mouth 1 (one) time each day at the same time. 90 tablet 5Active Insulin Aspart 100 UNIT/ML solution 5Active atorvastatin (Lipitor) 80 MG tablet Indications:Mixed hyperlipidemiaTake 1 tablet (80 mg) by mouth in the evening 90 tablet 5Active lisinopril 40 MG tablet Indications:Primary hypertensionTake 1 tablet (40 mg) by mouth Daily 90 tablet 5Active sertraline (Zoloft) 50 MG tablet Indications:Anxiety,Major depressive disorder with single episode, remission status unspecifiedTake 1 tablet (50 mg) by mouth in the morning. 90 tablet 5Active Active Problems ProblemNoted DateDiagnosed DateMorbid obesity due to excess fvolwbld62/05/2025 Assessment & Plan (11/25/2024 7:12 AM EDT): Discussed with patient their BMI (actual, verses recommended). We have also discussed lifestyle modifications: attempts to perform physical activity as chronic conditions allow, also to monitor dietary intake: increasing protein/fruits/veggies and lowering carb intake (unless contraindicated). Limit sodas, juices, and sugary drinks. She does take GLP 1 for DM Tubular adenoma of vglcri9810/28/2024Generalized abdominal pain10/28/2024 Assessment & Plan (11/25/2024 7:10 AM EDT): DD: gastritis, diverticulitis, pancreatitis, gall bladder, Check labs, consider GBUS No acute sxs on PE Assessment & Plan (10/28/2024 6:22 PM EDT): DD: gastritis, diverticulitis, pancreatitis, gall bladder, Check labs, consider GBUS No acute sxs on PE Colon polyp06/05/2024 Overview (06/05/2024): Scope 06/05/24: sessile polyp, Nill, 5 year fu, 2029 Type 2 diabetes mellitus with diabetic xurkwcyh24/09/2025 Assessment & Plan (05/01/2024 6:58 AM EST): Continue with eye exams as scheduled Type 2 diabetes mellitus 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 edema, cmxocsztozqdfk98/09/2025 Assessment & Plan (05/01/2024 6:58 AM EST): Continue w eye doctor Body mass index (BMI) 40.0-44.9, adult05/01/2024Long term (current) use of qxeopzk9405/01/2024 Assessment & Plan (05/01/2024 7:04 AM EST): Continues with diabetic provider Opioid abuse, in hjtzhqocd03/09/2025Diabetic ketoacidosis without coma associated with type 2 diabetes rqiybiwz48/31/2024 Assessment & Plan (02/21/2024 11:36 AM EDT): Hospital FU Reviewed hospital notes, labs, etc Symptoms have resolved Vitamin deficiency, mqruuswdgsb58/25/2024utism spectrum hkbynuze93/24/2024DHD 10/15/2023Environmental and seasonal hyhljvwdm65/24/2024 Assessment & Plan (10/15/2023 6:55 PM EDT): Cont loratadine Partial wjcrbtoib77/15/2024Narcotic abuse in qntzkivha45/15/2024Learning zvnzlbeutgne36/15/2024nxiety and ucaqxwgnxw26/15/2024 Assessment & Plan (11/25/2024 7:13 AM EDT): Current med: sertraline Assessment & Plan (05/01/2024 7:01 AM EST): Continue current meds Assessment & Plan (01/30/2024 3:28 PM EDT): Continue current meds Assessment & Plan (10/15/2023 6:56 PM EDT): Feels her sertraline is doing well, no changes needed in dose Assessment & Plan (06/07/2023 5:54 PM EST): Stable on current meds Encounter for screening mammogram for malignant neoplasm of airgek0306/07/2023 Encounter for subsequent annual wellness visit (AWV) in Medicare patient 06/07/2023 Assessment & Plan (11/25/2024 7:12 AM EDT): Reviewed Ht/Wt/BMI Recommend eye exam yearly Recommend dental exams twice a year Balance work/leisure activities Exercises is recommended most days of the week (appropriate as chronic conditions allow) Follow up yearly and prn Assessment & Plan (06/07/2023 5:54 PM EST): Reviewed Ht/Wt/BMI Recommend eye exam yearly Recommend dental exams twice a year Balance work/leisure activities Exercises is recommended most days of the week (appropriate as chronic conditions allow) Follow up yearly and prn Colon cancer muxruvmfv78/15/2024 Assessment & Plan (05/01/2024 2:35 PM EST): [...] going to try to do this HLD (hyperlipidemia)05/24/2023 Assessment & Plan (01/30/2024 3:28 PM EDT): Reviewed labs, trigs elevated likely secondary to her uncontrolled diabetes Abnormal dffnygxeaa31/11/2023Major depressive pvipdhqv77/11/2023ERD (gastroesophageal reflux disease)04/02/2023 Assessment & Plan (11/25/2024 7:10 AM EDT): Recommendations: freq small meals, nothing to eat or drink at least 2 hours prior to bed, limit caffeine, alcohol, as well as spicy foods Meds to limit or avoid if possible: NSAIDS Elevate HOB if possible Recommend weight loss Med: omeprazole Assessment & Plan (05/01/2024 6:56 AM EST): [...] 5:53 PM EST): Stable with current meds Mwszcchdgucw47/11/2023 Assessment & Plan (11/25/2024 7:09 AM EDT): Please check blood pressure daily and record DASH diet Limit caffeine Take medication as directed Contact office if chest pain, pressure, dizziness, shortness of breath, swelling legs Recommend slow position changes Current meds: amlodipine, yessy Assessment & Plan (05/01/2024 6:55 AM EST): [...] At goal no changes in meds Fatty liver7547Xfukqtjtqsiwwq39/11/2023Type 2 diabetes mellitus, with long-term current use of nbfbxkr7104/02/2023 Assessment & Plan (11/25/2024 7:11 AM EDT): Follows w diabetes mgmt for this Assessment & Plan (10/28/2024 6:23 PM EDT): [...] at goal, A1c 10%, continue care with [place] regulatory compliance specialist Check blood sugars daily, notify if [...] EST): Is under care of specialist in [place] for her diabetes No acute complaints ; Freq foot checks and yearly eye exams 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, rbehpfwdz41/18/2022Nuclear sclerotic cataract, /27/2018Adenocarcinoma of endometrium, stage 1 04/30/2017 Overview (05/01/2024): Total Hysterectomy 04/2017 Assessment & Plan (05/01/2024 2:25 PM EST): Had total hysterectomy 04/2017 Follow with [facility]: no, have been released with no follow up from [facility] No vag bleeding, no pelvic pain Resolved Problems ProblemNoted DateDiagnosed DateResolved DateBMI 40.0-44.9, adult10/15/2023 10/15/2023Long term current use of qkyxvuq34Retinopathy of both eyesType 2 diabetes mellitus with hyperglycemia Type 2 diabetes mellitus with diabetic lpqnbzcffiv26/15/2024 05/01/2024 Overview (06/07/2023): without macular edema, unspecified retinopathy severity Diverticulitis of intestine without perforation or abscess without bleeding, unspecified part of intestinal tractMorbid (severe) obesity due to excess aocanrke78/08/2024 Assessment & Plan (10/28/2024 6:23 PM EDT): >>ASSESSMENT AND PLAN FOR CLASS 3 SEVERE OBESITY DUE TO EXCESS CALORIES WITHOUT SERIOUS COMORBIDITY WITH BODY MASS INDEX (BMI) OF 40.0 TO 44.9 IN ADULT ([facility]) WRITTEN ON 05/01/2024 6:57 AM BY SONYA MEJIA NP Discussed with patient their BMI (actual, verses recommended). We have also discussed lifestyle modifications: attempts to perform physical activity as chronic conditions allow, also to monitor dietary intake: increasing protein/fruits/veggies and lowering carb intake (unless contraindicated). Limit sodas, juices, and sugary drinks. Does take elena for her diabetes Assessment & Plan (05/01/2024 6:57 AM EST): >>ASSESSMENT AND PLAN FOR CLASS 3 SEVERE OBESITY DUE TO EXCESS CALORIES WITHOUT SERIOUS COMORBIDITY WITH BODY MASS INDEX (BMI) OF 40.0 TO 44.9 IN ADULT ([facility]) WRITTEN ON 05/01/2024 6:57 AM BY SONYA MEJIA NP Discussed with patient their BMI (actual, verses recommended). We have also discussed lifestyle modifications: attempts to perform physical activity as chronic conditions allow, also to monitor dietary intake: increasing protein/fruits/veggies and lowering carb intake (unless contraindicated). Limit sodas, juices, and sugary drinks. Does take mounjaro for her diabetes Proliferative diabetic retinopathy of both eyes associated with type 2 diabetes yxqcfadz41History of hysterectomy for kqlffj0604/30/2017 10/15/2023 Encounters DateTypeDepartmentCare PlbdCddqpxlkyhm64/20/2025bstract [facility] [address] [place] [address] Sonya Mejia NP 11/25/2024 3:00 PM EDTOffice Visit [facility] [address] [place] [place] [id number] Sonya Mejia NP Encounter for subsequent annual wellness visit (AWV) in Medicare patient (Primary Dx); Primary hypertension ; Gastroesophageal reflux disease, unspecified whether esophagitis present; 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, with long-term current use of insulin, macular edema presence unspecified, unspecified laterality, unspecified proliferative retinop* (C* ([facility]); Morbid (severe) obesity due to excess calories ([facility]); Morbid obesity due to excess calories ([facility]); Anxiety and depression ; Mixed hyperlipidemia ; Anxiety; Major depressive disorder with single episode, remission status unspecified 11/25/2024amboo flowsheet [facility] [address] [place] [address] Sonya Mejia NP from Last 3 Months Immunizations ImmunizationAdministration DatesNext DueInfluenza, injectable, quadrivalent, preservative free02/08/2023,01/11/2022,01/15/2021,12/26/2019,01/08/2019, 12/31/2017,12/19/2016Influenza, seasonal, injectable, preservative free 01/30/2024,12/11/2015,Janssen JLJS-UmB-014/12/2021 SARS-CoV-2, Pclgfjlyeht93/27/4138Eamd84/15/2024 Family History Medical HistoryRelationNameCommentsDiabetesBrotherHypertensionBrotherDiabetes FatherHypertensionFatherAlcohol abuseMotherCancerMotherOvarianDiabetesMother HypertensionMotherDiabetesPaternal GrandmotherRelationNameStatusCommentsBrother FatherAliveMotherAlivePaternal Grandmother Social History Tobacco UseTypesPacks/DayYears UsedDateSmoking Tobacco: FormerCigarettes0.510 2002 - 2012Passive Smoke Exposure: NeverSmokeless Tobacco: Never Tobacco Cessation:Counseling Given: Not Answered Alcohol UseStandard Drinks/WeekCommentsYes0 (1 standard drink = 0.6 oz pure alcohol)1 beer per month. 1cup of coffee dailyHumiliation, Afraid, Rape, and Kick questionnaireAnswerDate RecordedWithin the last year, have you been afraid of your partner or ex-partner?No04/01/2023Within the last year, have you been humiliated or emotionally abused in other ways by your partner or ex-partner?No 04/01/2023Within the last year, have you been kicked, hit, slapped, or otherwise physically hurt by your partner or ex-partner?No04/01/2023Within the last year, have you been raped or forced to have any kind of sexual activity by your part ner or ex-partner?No04/01/2023Social Connection and Isolation PanelAnswerDate RecordedIn a typical week, how many times do you talk on the phone with family, friends, or neighbors?Never04/01/2023How often do you get together with friends or relatives?Never04/01/2023How often do you attend taoist or mu-ism services?Never04/01/2023o you belong to any clubs or organizations such as taoist groups, unions, fraternal or athletic groups, or school groups?No 04/01/2023How often do you attend meetings of the clubs or organizations you belong to?Never04/01/2023re you , , , , never , or living with a partner?Never azclewa6904/01/2023UDIT-CAnswerDate RecordedQ1: How often do you have a drink containing alcohol?Monthly or less 04/01/2023Q2: How many drinks containing alcohol do you have on a typical day when you are drinking?1 or Q3: How often do you have six or more drinks on one occasion?Never04/01/2023Overall Financial Resource Strain (CARDIA) AnswerDate RecordedHow hard is it for you to pay for the very basics like food, housing, medical care, and heating?Somewhat hard06/07/2023HQ-2AnswerDate RecordedPatient Health Questionnaire-2 Bejuv902Fin[facility] [place] of Occupational Health - Occupational Stress QuestionnaireAnswerDate RecordedDo you feel stress - tense, restless, nervous, or anxious, or unable to sleep at night because yourmind is troubled all the time - these days?To some uziymd9104/01/2023 Exercise Vital SignAnswerDate RecordedOn average, how many days per week do you engage in moderate to strenuous exercise (like a brisk walk)?4 days04/01/2023On average, how many minutes do you engage in exercise at this level?30 min 04/01/2023Hunger Vital SignAnswerDate RecordedWithin the past 12 months, you worried that your food would run out before you got the money to buymore.Never true04/01/2023Within the past 12 months, the food you bought just didn't last and you didn't have money to get more.Never true04/01/2023RAPARE - TransportationAnswerDate RecordedIn the past 12 months, has lack of transportation kept you from medical appointments or from getting medications?No 04/01/2023In the past 12 months, has lack of transportation kept you from meetings, work, or from getting things needed for daily living?No04/01/2023 Housing Stability Vital SignAnswerDate RecordedIn the last 12 months, was there a time when you were not able to pay the mortgage or rent on time?No04/01/2023In the last 12 months, how many places have you lived?In the last 12 months, was there a time when you did not have a steady place to sleep or slept in ashelter (including now)?No04/01/2023CommentsUnknownSex and Gender InformationValueDate RecordedSex Assigned at BirthNot on fileLegal SexFemale 07/05/2022 9:31 PM EDTGender IdentityNot on fileSexual OrientationNot on file Last Filed Vital Signs Vital SignReadingTime TakenCommentsBlood Cvwmhmpk191/8408 3:17 PM EDT Jtcaq9964 3:17 PM JHKVugpavnpfwp14.7 ??C (98.1 ??F)11/25/2024 3:17 PM EDTRespiratory Hzsi342411/25/2024 3:17 PM EDTOxygen Xaapvptyew65%11/25/2024 3:17 PM EDTInhaled Oxygen Concentration--Tbntjl778 kg (263 lb)11/25/2024 3:17 PM EDT Hbhyof793.6 cm (5' 6 )05/01/2024 1:57 PM ESTBody Mass Index42.4501 1:57 PM EST Plan of Treatment Health MaintenanceDue DateLast DoneCommentsCT Ynzcuccckkje52/22/1978FIT-DNA 1977FIT5316IPRC01/22/0492Qezxkiwirjjan87/22/1978HPV/Ynvhgr1006/14/2007 Pap Smear/, 12/11/2016Influenza Vaccine (#1)2024 01/30/2024, 02/08/2023, 01/11/2022, Additional history vpjbubVxafjtusv74/16/2026 08/06/2024, 08/06/2023, 08/06/2023, Additional history existsColonoscopy , 5Colorectal Cancer Cnpufrimd87/13/2030Cervical Cancer ScreeningDiscontinued Procedures Procedure NamePriorityDate/TimeAssociated DiagnosisCommentsMM TOMOSYNTHESIS SCREENING BI08/06/2024 2:49 PM EDT COLONOSCOPY NEYGQVPTVZIspgzql54/13/2025 2:23 PM ESTfrom Last 3 Months or Most Recently Relevant to Health Maintenance Results * MM TOMOSYNTHESIS SCREENING BI (08/06/2024 2:49 PM EDT)Anatomical Region LateralityModalityOtherSpecimen (Source)Anatomical Location / Laterality Collection Method / VolumeCollection TimeReceived Time08/06/2024 2:49 PM EDT Narrative 08/06/2024 2:50 PM EDT [facility] ?[address] ? [place] [address] ? Mammography Report ? Signed ? Patient: TASHA REVELES ?MR#: [id number] ?? : 1975 ?Acct:[id number] ?? Age/Sex: 49 / F ?ADM Date: 08/06/24 ?? Loc: MAMMO ? Attending Dr: Sonya J Jackie BRIMMER BLOCKER ? Ordering Physician: Jackie,Sonya BRIMMER BLOCKER ?Results: ? Date of Service: /16/25 ?Follow Up: ? Procedure(s): MM tomosynthesis screening BI ?? Accession Number(s): [id number] ? cc: Sonya Mejia BRIMMER BLOCKER ? Patient Name: ? TASHA REVELES ? MR#: [id number] ? : 1975 ? Exam Date: 08/06/2024 ?? Ordering Doctor: DENISE Mejia CNP ? RADIOLOGY REPORT ? PROCEDURE: ? MM TOMOSYNTHESIS SCREENING BI ? COMPARISON: ? MM TOMOSYNTHESIS SCREENING BI, 08/06/2023. ??MG MAMM SCREEN 3D ?? CORNEL CAD, 08/04/2022. ??MG MAMM SCREEN CORNEL W CAD, 12/25/2017. ? INDICATIONS: ? Screening for malignant neoplasm ? Calculator Name ? NCI Breast Cancer Risk Assessment Tool ?? 5 Year Breast Cancer Risk ? 1.40% ?? Lifetime Breast Cancer Risk ? 12.30% ?? Personal Breast Cancer ?No ?? Personal Ovarian Cancer ? No ?? Treatments ? hysterectomy, cornel oopherectomy ?? Family Cancers ? Mother with ovarian cancer at age 40; Aunt-maternal with ?? ovarian cancer at age 35; Aunt-maternal with ovarian cancer at age 40. ? LOCATION: ? [facility] ? BREAST COMPOSITION: ? The breasts are almost entirely fatty. ? FINDINGS: ? DIAGNOSTIC CATEGORY 1--NEGATIVE. ? LEFT BREAST: ??No significant suspicious finding. ? RIGHT BREAST: ??No significant suspicious finding. ? RECOMMENDATIONS: ? ROUTINE MAMMOGRAM AND CLINICAL EVALUATION IN 12 MONTHS. ? PLEASE NOTE: ??A NORMAL MAMMOGRAM DOES NOT EXCLUDE THE POSSIBILITY OF BREAST ?? CANCER. ??A CLINICALLY SUSPICIOUS PALPABLE LUMP SHOULD BE BIOPSIED. ? Dictated by: Cipriano Truong DO on 08/06/2024 at 14:32 ? Approved by: Cipriano Truong DO on 08/06/2024 at 14:49 ? Dictated By: ?Cipriano Truong M.D. ? Signed By: ?08/06/24 1450 ? DD/ 1449 ? TD/TT: ? Design Consultant: Procedure Note Radiology, Radiologist, MD - 08/06/[address] [address] Mammography Report Signed Patient: TASHA REVELES MMR#: [id number] : 1975Acct:[id number] Age/Sex: 49 / FADM Date: 08/06/24 Loc: MAMMO Attending Dr: Sonya Mejia BRIMMER BLOCKER Ordering Physician: Sonya Mejia NPResults: Date of Service: 08/06/24Follow Up: Procedure(s): MM tomosynthesis screening BI Accession Number(s): [id number] cc: Sonya Mejia BRIMMER BLOCKER Patient Name: TASHA REVELES MR#: [id number] : 1975 Exam Date: 08/06/2024 Ordering Doctor: DENISE Mejia COMPUTER BUILDER RADIOLOGY REPORT PROCEDURE: MM TOMOSYNTHESIS SCREENING BI COMPARISON: MM TOMOSYNTHESIS SCREENING BI, 08/06/2023. MG MAMM HPTGFL5Q CORNEL CAD, 08/04/2022. MG MAMM SCREEN CORNEL [...] ovarian cancer at age 42. LOCATION: [facility] BREAST COMPOSITION: The breasts are almost [...] M.D. Signed By:08/06/24 1450 DD/ 1449 TD/TT: Design Consultant: Authorizing ProviderResult TypeResult StatusSonya Mejia NPCLINISYNC IMAGING Final Result * COLONOSCOPY DIAGNOSTIC (06/05/2024 2:23 PM EST)Anatomical RegionLaterality ModalityRadiographic Imaging Narrative Authorizing ProviderResult TypeResult StatusMicashutosh Reyes MDIMG XR PROCEDURES Final Result from Last 3 Months or Most Recently Relevant to Health Maintenance Insurance * Guarantor: Tasha Reveles TypeRelation to PatientDate of BirthPhone Billing AddressPersonal/GkjevzQwdm06/[birth year][address] [address] Care Teams Team MemberRelationshipSpecialtyStart DateEnd Date Abad Garcia MD PCP - GeneralFamily Dcgnifbp56/31/24 Sonya Mejia NP Referring PhysicianNurse Practitioner11/13/22 Sonya Mejia NP Nurse PractitionerFamily Medicine06/07/23
--- OUTSIDE RECORDS SUMMARY | 2025-02-11 00:02 | XMS_ITS | Clinical Summary ---
Author Organization [facility] Address [id number] [address] [place] [address] Care Team Providers Care Office Machines Wirer Name Role Phone Unavailable Primary Care Provider Unavailabl e Immunizations ImmunizationAdministration DatesNext DueInfluenza, Tpigcttlkay88/29/2017 Social History Tobacco UseTypesPacks/DayYears UsedDateSmoking Tobacco: Never AssessedChildcare AnswerDate QpnqxoghUqpwsvkuzLsohlzo20/12/2019EmploymentAnswerDate Recorded XmxpivtuonVejdmpn31/12/2019CommentsUnknownSex and Gender Information ValueDate RecordedSex Assigned at BirthNot on fileLegal QshWcvash82/06/2015 11:30 AM EDTGender IdentityNot on fileSexual OrientationNot on file Plan of Treatment Health MaintenanceDue DateLast DoneCommentsDepression Sywubdenu22/22/1990Tobacco Takhliulc71/22/1990Adult BMI Ecvffqtmm43/22/1996DTaP,Tdap and Td Vaccines (1 - Tdap)1996Pap Smear1998Influenza Eakdsyc83 Medical Devices Not on file
--- OUTSIDE RECORDS SUMMARY | 2025-02-11 00:02 | XMS_ITS | Clinical Summary ---
Author Organization [facility] Address [address] [place] [id number] Care Team Providers Care Equities Analyst Name Role Phone Kim Rojas MD Primary Care Provider [phone] Allergies Active AllergyReactionsCriticalityNoted DateCommentsSeasonal AllergiesOther: See Qqofutkk18/18/2022 Worse in the fall Medications MedicationSigDispense QuantityRefillsLast FilledStart DateEnd DateStatus cephALEXin (KEFLEX) 500 mg capsule 03/18/2018Active atorvastatin (LIPITOR) 10 mg tablet Take 10 mg by mouth once daily.Active dicyclomine (BENTYL) 20 mg tablet TAKE ONE 1 TABLET BY MOUTH EVERY 8 HOURS NEEDED FOR DISC894Active Omeprazole 40 mg capsule Take 40 mg by mouth once daily.Active metFORMIN (GLUCOPHAGE) 1,000 mg tablet TAKE ONE 1 TABLET BY MOUTH TWICE [id number] NOVOLOG FLEXPEN U-100 INSULIN 100 unit/mL inpn INJECT 10 UNITS SUBCUTANEOUSLY THREE TIMES A TIF48205/06/2017Active potassium chloride (K-TAB) 10 mEq tablet Take 10 mEq by mouth three times daily.Active lisinopril-hydrochlorothiazide (PRINZIDE,ZESTORETIC) 20-12.5 mg per tablet Take 1 tablet by mouth twice daily.Active sertraline (ZOLOFT) 25 mg tablet Take 50 mg by mouth once daily.Active VIVITROL 380 mg injection 05/21/2018Active STEGLATRO 15 mg tab Active BASAGLAR KWIKPEN U-100 INSULIN 100 unit/mL (3 mL) inpn INJECT 40 UNITS SUBCUTANEOUSLY EVERY [id number] JARDIANCE 25 mg tablet Take 25 mg by mouth once daily.10/21/2019Active ergocalciferol 50,000 unit capsule (VITAMIN D2, DRISDOL) Indications: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, unspecified whether longterm insulin use (HCC),Nuclear sclerotic cataract, bilateral, 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, bilateralTake by mouth one time a week.Active lisinopril (ZESTRIL, PRINIVIL) 40 mg tablet Indications: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 USE DIRECTED.2Active ammonium lactate (LAC-HYDRIN) 12 % lotion Apply to affected area.5Active loratadine (CLARITIN) 10 mg tablet Take 10 mg by mouth.5Active multivitamin-ferrous fumarate-folic acid (CENTRUM COMPLETE) Take by mouth every 24 hours.Active MOUNJARO 10 mg/0.5 mL pen injector Inject 10 mg subcutaneously.4Active VITAMIN B COMPLEX ORAL Take by mouth every 24 hours.Active Active Problems ProblemNoted DateDiagnosed Date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 05/10/2021osterior subcapsular polar age-related cataract, jmaqmlslz82/18/2022 Nuclear sclerotic cataract, vtxxbqsfi64/27/2018S/P LASIK (laser assisted in situ keratomileusis)03/19/2018Vitreomacular traction, emeataxvg55/21/2018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 and macular edema, with long-term current use of rclndwx3408/02/2016Hypertension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 disease) Resolved Problems ProblemNoted DateDiagnosed DateResolved WqtwIrqwllqo27/12/2017 Encounters DateTypeDepartmentCare ZtimHigylugoczp19/11/2025 12:45 PM EDTOffice Visit OPHT Ophthalmology [address] [address] Richelle Monreal PA-C 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, unspecified whether marine oil terminal superintendent insulin use (HCC) (Primary Dx); 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, vkywgtxjq63/11/2025Travelfrom Last 3 Months Immunizations ImmunizationAdministration DatesNext Dueinfluenza (IIV3) vaccine, age 6 mo - 64 yr, trivalent (AFLURIA, FLULAVAL, FLUVIRIN, FLUZONE)12/19/2016influenza (IIV4) vaccine, age 6 mo - 64 yr, quadrivalent, PF (AFLURIA, FLUARIX, FLULAVAL, FLUZONE)01/08/2019,12/31/2017 Family History Medical HistoryRelationCommentsHypertensionBrotherDiabetesFatherHypertension FatherCancerMotherovarian cancerDiabetesMotherHypertensionMotherNo Ocular DiseaseNo Family Historynothing known ofRelationStatusCommentsBrotherFather Mother Social History Tobacco UseTypesPacks/DayYears UsedDateSmoking Tobacco: FormerCigarettesQuit: 2013Smokeless Tobacco: NeverAlcohol UseStandard Drinks/WeekCommentsNo0 (1 standard drink = 0.6 oz pure alcohol)Area Deprivation IndexAnswerDate Recorded National Score (1-100), lower number is lower ctey4120State Score (1- 10), lower number is lower uqlw7894Data from: https://www.neighborhoodatlas.medicine.[facility].edu/. Last address used for [address] [place] [address]/07/2023CommentsNoSex and Gender Information ValueDate RecordedSex Assigned at BirthNot on fileLegal UhnXnhiex14/16/2017 11:09 AM EDTGender IdentityNot on fileSexual OrientationNot on file Last Filed Vital Signs Vital SignReadingTime TakenCommentsBlood Xkevhjsx759/7908 10:30 AM EDT Pzzqt31714/21/2020 10:30 AM CAEUnoldwhtdtm32.5 ??C (97.7 ??F)12/12/2019 10:30 AM EDTRespiratory Sakr335312/12/2019 10:30 AM EDTOxygen Vpcxhrbsao01%12/12/2019 10:30 AM EDTInhaled Oxygen Concentration--Stjhmm693.7 kg (226 lb 6.4 oz)12/12/2019 10:30 AM ATXZdpxrb494 cm (5' 6.14 )12/12/2019 10:30 AM EDTBody Mass Index36.39 12/12/2019 10:30 AM EDT Plan of Treatment DateTypeDepartmentCare Team (Latest Contact Info)Ceiithylood04/24/2026 1:15 PM ESTOffice Visit OPHT Ophthalmology [address] [address] Jason Ch MD [address] [place] [address] [facility] [address] [address] [address] Ch 6 monthsHealth MaintenanceDue DateLast DoneCommentsAnxiety Screening 1995Depression Kkyeqcgjm73/22/1996HIV Vyroywpqt18/22/1996Hepatitis C Cbcjcqpwj60/22/1996Hepatitis B Vaccine (1 of 3 - 19+ 3-dose series)1996 Mammogram Ocbqlzwrs92/22/2018CT Sckskiqhzkuw18/22/2023Cologuard (FIT-DNA) 06/14/20220685Ziwnohqgdmw61/22/2023olorectal Cancer Kuitsmrmg56/22/2023Diabetes Wuhxuvjkn39/22/2023Fecal Occult Blood2022Lipid Soxehegrq92/22/2023 Uahyvkgpbftoj70/22/2023Cervical Cancer Vsyiodizr80/, 06/13/2019, 12/06/2018, Additional history existsCovid-19 Vaccine ( season)/, 02/25/2022, 10/17/2021, Additional history exists Influenza Vaccine (#1)/12/2023, 02/08/2023, 01/11/2022, Additional history existsDTaP,Tdap,Td Vaccine (2 - Td or Tdap)/ Medical Devices ImplantedTypeAreaManufacturerDevice IdentifierShelf Expiration DateModel / Serial / LotGas Ispan Constellation Intraocular Vision System C3f8 125gm - [id number] [facility]plant[facility] [facility]plantRight: EyeALCON LABS [id number] / / [id number] Ispan Constellation Intraocular Vision System C3f8 125gm - [id number] Implanted:Qty: 1 on 10/10/[address] 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 Butt Welder Information Wig Dresser: ANIKA. Disc Right Eye Normal. Macula Right Eye Hemorrhage. Periphery Right Eye Laser scars, Hemorrhage. Left Eye Laser scars. Notes Poor view OS Authorizing ProviderResult TypeResult StatusRichelle LUIS-COPHTHALMOLOGY Final Result * OCT MACULA CIRRUS OU (BOTH EYES) (12/01/2024 1:08 PM EDT)Anatomical Region LateralityModalityOther Narrative 12/01/2024 1:10 PM EDT Date of Procedure 12/01/2024. Butt Welder Information Wig Dresser: ANIKA. Imaging Comments: Poor/limited view OS due to cornea/lens/vitreous opacity . OCT Macula Interpretation Right Eye Abnormal foveal contour. Findings include Epiretinal membrane; Negative for Intraretinal fluid, Subretinal fluid. Left Eye Abnormal foveal contour. Interval Change Right Eye Stable. Notes Poor view OS Authorizing ProviderResult TypeResult StatusRichelle LUIS-[facility]ITAL[facility]THAL[facility]OLOG[facility] Final Result * PAP FLUID VAGINAL VAULT SCREENING (12/12/2019 10:36 AM EDT)ComponentValueRef RangeTest MethodAnalysis TimePerformed AtPathologist SignatureTranscription Specimen originated from [facility] Specimen #: [id number] Submitting Physician: MEG SANTOYO PA-C SPECIMEN SUBMITTED A: VAGINAL VAULT,SCREENING, FLUID FINAL DIAGNOSIS A. VAGINAL VAULT,SCREENING, FLUID Satisfactory for interpretation. Negative for intraepithelial lesion or malignancy. Fungal organisms morphologically consistent with Amanda species. This specimen has been analyzed by the ThinPrep Imaging System, an automated imaging and review system, which assists the laboratory in evaluating cells on ThinPrep Pap tests. ??Following automated imaging, selected rene from every slide are reviewed by a welder plasma arc. CHANEL Fajardo(ASCP) ? (Electronic Signature) CLINICAL DATA HYSTERECTOMY TOTAL, HPV Testing: No HPV test Date of Last Menstrual Period: Hysterectomy STAINS A: ??VAGINAL VAULT,SCREENING, FLUID ? THIN PREP TEA TASTER Refugio Rivers M.D., Lunchroom Worker Date of Report: 12/17/2019 Date of Procedure: 12/12/2019 Date of Receipt: 12/15/2019 Submitted by: MEG SANTOYO PA-C Additional Physician(s): FANTA ALCAZAR MD Location: [facility] Diagnostic interpretation performed at [facility], [address] [place] [address]. ?? CLIA Number: [id number] ? The Pap Smear is a screening test for cervical cancer. False negative results occur with all screening tests, emphasizing the need for rescreening at recommended intervals, and clinical correlation.COPATHPLUS Specimen (Source)Anatomical Location / LateralityCollection Method / Volume Collection TimeReceived TimeVaginal swab (specimen)VAGINAL SWAB / Unknown 12/12/2019 10:36 AM EDT12/15/2019 3:04 PM EDT Narrative Authorizing ProviderResult TypeResult StatusMeg RIOJASCCYTOLOGYFinal ResultPerforming OrganizationAddressCity/State/ZIP CodePhone Number [facility] [address] [place] [address] from Last 3 Months or Most Recently Relevant to Health Maintenance Insurance Care Teams Team MemberRelationshipSpecialtyStart DateEnd Date Kim Rojas MD [address] [place] [address] [facility]07[facility]18
[2025-02-11] MEDS: 0.9 % SODIUM CHLORIDE 1,000 ML 1000 ML IV ×2 (00:58→02:51)
[2025-02-11 01:11] LABS: Hematocrit 50.4 % (36.0-48.0); Hemoglobin 16.8 g/dL (12.0-16.0); Mean Corpuscular HGB Conc 33.3 g/dL (29.9-35.2); Mean Corpuscular Hemoglobin 29.2 pg (26.7-34.0); Mean Corpuscular Volume 87.7 fL (81.0-99.0); Platelet Count 454 10^3/uL (150-450); Red Blood Count 5.75 10^6/uL (4.20-5.40); White Blood Count 29.4 10^3/uL (4.0-11.0)
[2025-02-11 01:12] LABS: PCO2 VBG 23.8 mmHg (40.0-52.0); pH VBG 7.082 (7.330-7.430)
[2025-02-11 01:16] LABS: Glucose Urine UA >=1000 mg/dL (NEGATIVE)
--- NOTE | 2025-02-11 01:18 | ED.GENADUL1 ---
HPI HPI - General Adult General Chief complaint: Weakness Stated complaint: NAUSEA,VOMITING, HIGH BLOOD SUGAR Time Seen by Provider: 02/11/25 00:04 Source: patient Mode of arrival: ambulance History of Present Illness HPI narrative: This 49-year-old female is brought to the emergency department by EMS for evaluation of dizziness, nausea and vomiting. She has a history of diabetes. She admits that she did not take any of her medications today because she was not feeling well. She requests ice chips. She states she slept all day and when she woke up was still not feeling well and did not take her medications. She denies any chest pain or shortness of breath. She has no abdominal pain. She does not have any diabetic foot ulcers. She denies that she is suicidal and not taking her medications in an attempt to harm herself. Related Data Home Medications ?Medication ?Instructions ?Recorded ?Confirmed atorvastatin 80 mg tablet 80 mg PO .qhs 02/10/24 02/10/25 insulin aspart (niacinamide) 1 - 80 unit subcut Q24H 02/10/24 02/10/25 (U-100) 100 unit/mL subcutaneous solution (Fiasp U-100 Insulin) lisinopril 40 mg tablet 40 mg PO DAILY 02/10/24 02/10/25 loratadine 10 mg tablet (Allergy 10 mg PO DAILY 02/10/24 02/10/25 Relief (loratadine)) metformin 1,000 mg tablet 1,000 mg PO BID 02/10/24 02/10/25 omeprazole 40 mg capsule,delayed 40 mg PO DAILY 02/10/24 02/10/25 release sertraline 50 mg tablet 50 mg PO DAILY 02/10/24 02/10/25 sub-q insulin device, 40 unit 02/11/24 05/30/24 (V-GO 40 device) insulin glargine 100 unit/mL (3 1 unit subcut QPM 05/30/24 02/10/25 mL) subcutaneous pen (Basaglar KwikPen U-100 Insulin) tirzepatide 7.5 mg/0.5 mL mg subcut 02/10/25 subcutaneous pen injector (Mounjaro) Allergies Allergy/AdvReac Type Severity Reaction Status Date / Time dulaglutide Allergy ketoacidosi Verified 02/10/25 23:55 s Opioid HPI Opioid Management Most Recent Opioid Data: Last Pain Scale 3 02/13/24, 15:00 Last ORT Total Score 3 02/11/24, 01:19 Last ORT Risk Category Low Risk 02/11/24, 01:19 Review of Systems ROS Status of ROS 10 or more systems reviewed and unremarkable except as noted in history and below [facility] Medical History (Updated 02/11/25 @ 01:50 by Bhargavi Do MD) Panic attacks ?F41.0 - Panic disorder [episodic paroxysmal anxiety] (ICD-10) Anxiety ?F41.9 - Anxiety disorder, unspecified (ICD-10) Seasonal allergies ?J30.2 - Other seasonal allergic rhinitis (ICD-10) Seizures ?R56.9 - Unspecified convulsions (ICD-10) 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 disease) ?K21.9 - Gastro-esophageal reflux disease without esophagitis (ICD-10) Heart murmur ?R01.1 - Cardiac murmur, unspecified (ICD-10) High cholesterol ?E78.00 - Pure hypercholesterolemia, unspecified (ICD-10) Diabetes ?E11.9 - Type 2 diabetes mellitus without complications (ICD-10) Leukocytosis ?D72.829 - Elevated white blood cell count, unspecified (ICD-10) HLD (hyperlipidemia) ?E78.5 - Hyperlipidemia, unspecified (ICD-10) Obesity ?E66.9 - Obesity, unspecified (ICD-10) Depression ?F32.A - Depression, unspecified (ICD-10) Uterine cancer ?C55 - Malignant neoplasm of uterus, part unspecified (ICD-10) H/O elevated lipids ?Z86.39 - Personal history of other endocrine, nutritional and metabolic disease (ICD-10) DKA (diabetic ketoacidosis) ?E11.10 - Type 2 diabetes mellitus with ketoacidosis without coma (ICD-10) HTN (hypertension) ?I10 - Essential (primary) hypertension (ICD-10) Surgical History (Updated 05/30/24 @ 13:31 by Andreea Harris NP) Hx of tonsillectomy ?Z90.89 - Acquired absence of other organs (ICD-10) H/O eye surgery ?Z98.890 - Other specified postprocedural states (ICD-10) S/P LASIK surgery of both eyes ?Z98.890 - Other specified postprocedural states (ICD-10) H/O wisdom tooth extraction ?K08.409 - Partial loss of teeth, unspecified cause, unspecified class (ICD-10) History of hysterectomy for cancer ?Z90.710 - Acquired absence of both cervix and uterus (ICD-10) Family History (Updated 02/11/24 @ 03:45 by Yessica Michaels RN) Mother Family history of cancer Family history of diabetes mellitus Family history of hypertension Father Family history of diabetes mellitus Family history of hypertension Social History (Updated 05/30/24 @ 13:13 by Andreea Harris NP) Within the past year, how often did you have a drink containing alcohol: never Score interpretation: A score less than 3 is consistent with normal alcohol consumption. Smoking status: Former smoker Non-prescribed substance use: former substance user Highest level of school completed/degree received: high school graduate Little interest or pleasure in doing things: not at all Feeling down, depressed, or hopeless: not at all Exam Narrative Exam Narrative: Vital signs and Nursing Notes reviewed: Patient is afebrile, tachycardic, hypertensive, she is not hypoxic with pulse ox of 99% on room air General: Awake, alert, oriented, nontoxic obese female, no respiratory distress, no active vomiting HEENT: Normocephalic atraumatic, mucous membranes are dry with cracked lips and tongue-swelling of the tongue, uvula or pharyngeal soft tissues Neck: Supple, no meningeal signs, no anterior or posterior cervical lymphadenopathy Chest: Lungs are clear to auscultation with good air entry, there is no wheezing rhonchi or rales appreciated no accessory muscle use, patient is speaking in complete sentences-no chest wall tenderness to palpation CVS: Regular rate and rhythm S1-S2, tachycardic at 140 upon arrival no murmurs rubs or gallops, pulses are brisk and equal bilaterally ABD: Obese, soft, nondistended, nontender, no rebound guarding or rigidity, bowel sounds are normal Extremities: Moving all extremities, no lower extremity tenderness or swelling noted, no diabetic foot ulcers noted Skin: Normal in appearance without rash,pallor, petechiae or purpura Neuro: No focal defic Constitutional Vital Signs, click to edit/add: Last Vital Signs Temp 97.9 F 02/10/25 23:52 Pulse 132 H 02/11/25 03:04 Resp 19 02/11/25 03:04 BP 164/104 H 02/11/25 03:04 Pulse Ox 100 02/11/25 03:04 O2 Del Method Room Air 02/10/25 23:52 Course Vital Signs Vital signs: Vital Signs Temperature 97.9 F 02/10/25 23:52 Pulse Rate 140 H 02/10/25 23:52 Respiratory Rate 18 02/10/25 23:52 Blood Pressure 202/169 H 02/10/25 23:52 Pulse Oximetry 99 02/10/25 23:52 Oxygen Delivery Method Room Air 02/10/25 23:52 Temperature 97.9 F 02/10/25 23:52 Pulse Rate 132 H 02/11/25 03:04 Respiratory Rate 19 02/11/25 03:04 Blood Pressure 164/104 H 02/11/25 03:04 Pulse Oximetry 100 02/11/25 03:04 Oxygen Delivery Method Room Air 02/10/25 23:52 Medical Decision Making MDM Narrative Medical decision making narrative: This 49-year-old female with a history of diabetes and hypertension is brought to the emergency department by EMS from home. She lives at home with her parents. The patient states she was not feeling well earlier today, slept most of the day and did not take any of her medications. Upon arrival she is afebrile, markedly tachycardic and hypertensive. She is not hypoxic. She denies any chest pain or shortness of breath. She requested ice chips immediately upon arrival. She had 3 episodes of vomiting prior to arrival. She denies any chest pain or shortness of breath. Her mentation is normal. DKA workup was ordered. EKG upon arrival is a sinus tachycardia at 143 bpm. Wyenl-vu-bniq glucose was 531. An IV was placed and she was medicated with IV fluids and Zofran. Her white count is elevated 29.4 with a concentrated hemoglobin of 16.8. Urine is negative for infection but positive for ketones and glucose. Venous blood gas shows a metabolic acidosis with a pH of 7.08 and a pCO2 of 23.8. Sodium is 138, potassium is 5.2, chloride is 99, CO2 is 8.5, BUN is 20, creatinine is 1.22, glucose is 541, anion gap is 35.7. Troponin is normal at 35.5. Was given additional IV fluids and started on an insulin drip at 5 units/h. Her vital signs stabilized with pulse coming down into the 100s and blood pressure at 107/65 at the time of this dictation. Pulse ox remains 100% on room air. Do not have any stepdown/ICU beds available at this facility at this time and the patient will require to be transferred for ICU management. She is agreeable. She now tells me that she did not take her insulin or medications for 2 days. Repeat labs ordered after the patient was on an insulin drip. The sodium is now 139, potassium is 4.3, chloride is 103, CO2 is now 6.2, BUN is 21, creatinine is 1.10, glucose is 525, anion gap has decreased 34.1, troponin remains normal but trending upward at 49.9. An additional IV was placed as she was bending her arm and alarming the IV pump and not receiving the insulin as ordered. Case was discussed with Dr Stephen at [facility] and she is accepted for admission Medical Records Medical records reviewed: Yes I reviewed the patient's medical records Lab Data Lab results reviewed: Yes I reviewed the patient's lab results Labs: Lab Results 02/10/25 02/11/25 02/11/25 Range/Units 23:57 00:42 00:49 WBC 29.4 H (4.0-11.0) 10^3/uL RBC 5.75 H (4.20-5.40) 10^6/uL Hgb 16.8 H (12.0-16.0) g/dL Hct 50.4 H (36.0-48.0) % MCV 87.7 (81.0-99.0) fL MCH 29.2 (26.7-34.0) pg MCHC 33.3 (29.9-35.2) g/dL RDW 13.8 (11.0-15.0) % Plt Count 454 H (150-450) 10^3/uL MPV 10.5 (9.5-13.5) fL Seg Neuts % (Manual) 93.0 H (43.0-75.0) Lymphocytes % (Manual) 0.0 L (20.5-60.0) % Monocytes % (Manual) 7.0 (1.7-12.0) % Eosinophils % (Manual) 0.0 L (0.9-7.0) % Basophils % (Manual) 0.0 L (0.2-2.0) % Neutrophils # (Manual) 27.34 H (1.4-6.5) 10^3/uL Lymphocytes # (Manual) 0.00 L (1.20-3.80) 10^3/uL Monocytes # (Manual) 2.05 H (0.30-0.80) 10^3/uL Eosinophils # (Manual) 0.00 (0.00-0.70) 10^3/uL Basophils # (Manual) 0.00 (0.00-0.10) 10^3/uL VBG pH 7.082 L (7.330-7.430) VBG pCO2 23.8 L (40.0-52.0) mmHg Sodium 138 (136-145) mmol/L Potassium 5.2 H (3.5-5.1) mmol/L Chloride 99 (98-107) mmol/L Carbon Dioxide 8.5 L (21.0-32.0) mmol/L Anion Gap 35.7 BUN 20.0 H (7.0-18.0) mg/dL Creatinine 1.22 H (0.55-1.02) mg/dL Est GFR ( Amer) 57 L (>=60 mL/min/1.73m^2) Est GFR (Non-Af Amer) 47 L (>=60 mL/min/1.73m^2) BUN/Creatinine Ratio 16.4 Glucose 541 H* (74-106) mg/dL Calcium 9.6 (8.5-10.1) mg/dL Total Bilirubin 0.5 (0.2-1.0) mg/dL AST 10 L (15-37) U/L ALT 30 (14-59) U/L Alkaline Phosphatase 124 H (46-116) U/L Troponin I High Sens 35.5 (4.0-51.3) pg/mL Total Protein 9.5 H (6.4-8.2) g/dL Albumin 4.0 (3.4-5.0) g/dL Globulin 5.5 g/dL Albumin/Globulin Ratio 0.7 Urine Color Lt. yellow (YELLOW) Urine Clarity Clear (CLEAR) Urine pH 6.0 (5.0-9.0) Ur Specific Fisk 1.025 (1.005-1.025) Urine Protein 30 A (NEG/TRACE) mg/dL Urine Glucose (UA) >=1000 A (NEGATIVE) mg/dL Urine Ketones >=80 A (NEGATIVE) mg/dL Urine Occult Blood Trace-i (NEGATIVE) Urine Nitrite Negative (NEGATIVE) Urine Bilirubin Small A (NEGATIVE) Urine Urobilinogen 0.2 (0.2-1.0) EU/dL Ur Leukocyte Esterase Negative (NEGATIVE) Urine RBC None seen (0-2) #/HPF Urine WBC None seen (NONE SEEN) #/HPF Ur Squamous Epith Cells Few A (NONE/RARE) #/LPF Urine Crystals None seen (None Seen) #/HPF Urine Bacteria None seen (NONE SEEN) #/HPF Urine Casts None seen (NONE SEEN) #/LPF Urine Mucus None seen (NONE SEEN) Urine Yeast Seen A (NONE SEEN) Ur Culture Indicated? No Acetone, Qual Moderate A (NEGATIVE) POC Glucose 531 H* (74-106) mg/dL 02/11/25 Range/Units 02:57 WBC (4.0-11.0) 10^3/uL RBC (4.20-5.40) 10^6/uL Hgb (12.0-16.0) g/dL Hct (36.0-48.0) % MCV (81.0-99.0) fL MCH (26.7-34.0) pg MCHC (29.9-35.2) g/dL RDW (11.0-15.0) % Plt Count (150-450) 10^3/uL MPV (9.5-13.5) fL Seg Neuts % (Manual) (43.0-75.0) Lymphocytes % (Manual) (20.5-60.0) % Monocytes % (Manual) (1.7-12.0) % Eosinophils % (Manual) (0.9-7.0) % Basophils % (Manual) (0.2-2.0) % Neutrophils # (Manual) (1.4-6.5) 10^3/uL Lymphocytes # (Manual) (1.20-3.80) 10^3/uL Monocytes # (Manual) (0.30-0.80) 10^3/uL Eosinophils # (Manual) (0.00-0.70) 10^3/uL Basophils # (Manual) (0.00-0.10) 10^3/uL VBG pH (7.330-7.430) VBG pCO2 (40.0-52.0) mmHg Sodium 139 (136-145) mmol/L Potassium 4.3 (3.5-5.1) mmol/L Chloride 103 (98-107) mmol/L Carbon Dioxide 6.2 L (21.0-32.0) mmol/L Anion Gap 34.1 BUN 21.0 H (7.0-18.0) mg/dL Creatinine 1.10 H (0.55-1.02) mg/dL Est GFR ( Amer) >60 (>=60 mL/min/1.73m^2) Est GFR (Non-Af Amer) 53 L (>=60 mL/min/1.73m^2) BUN/Creatinine Ratio 19.1 Glucose 525 H* (74-106) mg/dL Calcium 9.3 (8.5-10.1) mg/dL Total Bilirubin (0.2-1.0) mg/dL AST (15-37) U/L ALT (14-59) U/L Alkaline Phosphatase (46-116) U/L Troponin I High Sens 49.9 (4.0-51.3) pg/mL Total Protein (6.4-8.2) g/dL Albumin (3.4-5.0) g/dL Globulin g/dL Albumin/Globulin Ratio Urine Color (YELLOW) Urine Clarity (CLEAR) Urine pH (5.0-9.0) Ur Specific Fisk (1.005-1.025) Urine Protein (NEG/TRACE) mg/dL Urine Glucose (UA) (NEGATIVE) mg/dL Urine Ketones (NEGATIVE) mg/dL Urine Occult Blood (NEGATIVE) Urine Nitrite (NEGATIVE) Urine Bilirubin (NEGATIVE) Urine Urobilinogen (0.2-1.0) EU/dL Ur Leukocyte Esterase (NEGATIVE) Urine RBC (0-2) #/HPF Urine WBC (NONE SEEN) #/HPF Ur Squamous Epith Cells (NONE/RARE) #/LPF Urine Crystals (None Seen) #/HPF Urine Bacteria (NONE SEEN) #/HPF Urine Casts (NONE SEEN) #/LPF Urine Mucus (NONE SEEN) Urine Yeast (NONE SEEN) Ur Culture Indicated? Acetone, Qual (NEGATIVE) POC Glucose (74-106) mg/dL ECG Data Attestation: I personally reviewed and interpreted this ECG as follows: (Sinus tachycardia at 143 bpm, nonspecific ST changes, right axis deviation, no acute ST segment elevation) Critical Care Time Critical Care Time Total Critical Care Time: 40 Attestation: Due to this patient's presentation with a history of diabetes with dehydration, tachycardia, hypertension and the high probability of sudden and clinically significant deterioration in her condition she required the highest level of my preparedness to intervene urgently. I provided critical care time including documentation time, medication orders and management, reevaluation, vital sign assessment ordering and reviewing of lab test, ordering reviewing of x-ray studies and admission orders, aggregate critical care time is 40 minutes including only time during which I was engaged in work directly related to her care Discharge Plan Discharge Chief Complaint: Weakness Clinical Impression: DKA (diabetic ketoacidosis), Noncompliance with medication regimen Patient Disposition: [facility] Time of Disposition Decision: 02:25 Discharge Location: [facility] Condition: Serious
[2025-02-11 01:27] LABS: Cast Seen? NONE SEEN #/LPF (NONE SEEN); Crystals Seen? None Seen #/HPF (None Seen); Urine Culture Indicated NO
[2025-02-11 01:34] LABS: Alanine Aminotransferase 30 U/L (14-59); Albumin Globulin Ratio 0.7; Albumin Level 4.0 g/dL (3.4-5.0); Alkaline Phosphatase 124 U/L (46-116); Anion Gap 35.7; Aspartate Amino Transferase 10 U/L (15-37); Blood Urea Nitrogen 20.0 mg/dL (7.0-18.0); Calcium 9.6 mg/dL (8.5-10.1); Carbon Dioxide 8.5 mmol/L (21.0-32.0); Chloride 99 mmol/L (98-107); Estimated GFR (African America 57 (>=60 mL/min/1.73m^2); Estimated GFR (Non-African Ame 47 (>=60 mL/min/1.73m^2); Globulin 5.5 g/dL; Potassium 5.2 mmol/L (3.5-5.1); Sodium 138 mmol/L (136-145); Total Protein 9.5 g/dL (6.4-8.2)
[2025-02-11 01:39] LABS: Glucose 541 mg/dL (74-106)
[2025-02-11 01:43] LABS: Basophils Abs Manual 0.00 10^3/uL (0.00-0.10); Basophils Percent Manual 0.0 % (0.2-2.0); Eosinophils Absolute Manual 0.00 10^3/uL (0.00-0.70); Eosinophils Percent Manual 0.0 % (0.9-7.0); Lymphocytes Absolute Manual 0.00 10^3/uL (1.20-3.80); Lymphocytes Percent Manual 0.0 % (20.5-60.0); Monocytes Absolute Manual 2.05 10^3/uL (0.30-0.80); Monocytes Percent Manual 7.0 % (1.7-12.0); Segmented Neut Absolute Manual 27.34 10^3/uL (1.4-6.5); Segmented Neutrophils % Manual 93.0 (43.0-75.0)
[2025-02-11] MEDS: INSULIN REGULAR IN 0.9 % NACL 100 UNIT/100 ML PLAST..BAG IV (01:47)
[2025-02-11] MEDS: FAMOTIDINE/PF 20 MG/2 ML VIAL IV (02:50)
[2025-02-11 03:29] LABS: Anion Gap 34.1; Blood Urea Nitrogen 21.0 mg/dL (7.0-18.0); Calcium 9.3 mg/dL (8.5-10.1); Carbon Dioxide 6.2 mmol/L (21.0-32.0); Chloride 103 mmol/L (98-107); Estimated GFR (African America >60 (>=60 mL/min/1.73m^2); Estimated GFR (Non-African Ame 53 (>=60 mL/min/1.73m^2); Potassium 4.3 mmol/L (3.5-5.1); Sodium 139 mmol/L (136-145)
[2025-02-11 03:33] LABS: Glucose 525 mg/dL (74-106)
[2025-02-11] MEDS: 0.9 % SODIUM CHLORIDE 1,000 ML 150 ML IV (04:16)
--- NOTE | 2025-02-11 06:10 | PC.NURSE ---
Superior was given patient report and paper work i called patient report to Lindsey COPELAND [phone] at [facility] ICU dept, patient going room number 4005 this patient did ambulated to ems cot, this patient voices no concerns, or needs and shows no signs of distress
== END 2025-02-11 05:07 | disposition short-term general hospital (02) ==
PROVIDERS: Emergency Provider Emergency Medicine; PCP Nurse Practitioner
DX: E11.10 Type 2 diabetes mellitus with ketoacidosis without coma (principal); Z79.4 Long term (current) use of insulin; Z79.84 Long term (current) use of oral hypoglycemic drugs; Z87.891 Personal history of nicotine dependence; I10 Essential (primary) hypertension; T38.3X6A Underdosing of insulin and oral hypoglycemic [antidiabetic] drugs, initial encounter; E86.0 Dehydration; R00.0 Tachycardia, unspecified
CPT/HCPCS: 36415; 80048; 80053; 81001; 82009; 82800; 84484; 85007; 85027; 93005; 96361; 96374; 96375; 99285; J2405; J3490